=== PATIENT | female | born 1950 | race Caucasian/White ===

== ENCOUNTER → 2017-05-13 | Outpatient (CLI) | payer OTHER ==
[~2017-05-13] MED LIST: ATEN-173 PO; CLON0.5T3 PO; SODI1SOL OPB
--- NOTE | 2017-05-14 15:58 | DIAGNOSTIC IMAGING REPORT ---
LEFT BREAST LYMPHOSCINTIGRAPHY CLINICAL HISTORY: Left breast cancer. COMPARISON STUDY: No previous studies for comparison. PROCEDURE: The patient presents today for left breast lymphoscintigraphy. The procedure, risks and benefits were discussed with the patient and informed consent was obtained. Skin of the left breast was prepped. A total of 0.542 mCi of Lymphoseek was injected in 5 intradermal aliquots at 2:30 PM on May 13, 2017 in a perilesional distribution. The patient tolerated the procedure well and no immediate complications were evident. No imaging was requested at this time. IMPRESSION: Left breast lymphoscintigraphy, as described above. Electronically signed by: Jerel Jones M.D. 05/14/2017 3:56 PM Dictated Date/Time: 05/14/2017 3:52 PM
== END | disposition home or self-care (01) ==
LOC: C.NUCL 13:56
PROVIDERS: ATTEND Surgery
DX: C50.912 Malignant neoplasm of unspecified site of left female breast (principal)

== ENCOUNTER → 2017-09-09 | Outpatient (CLI) | payer OTHER ==
[~2017-09-09] MED LIST changes: -CLON0.5T3 PO; +DOXY100C76 PO; +KLN/5 PO; +MULTTAB58 PO; +TAMO20TA9 PO
[2017-09-09 14:11] VITALS: BP 118/78; PULSE 66; TEMP 37; O2SAT 97
--- NOTE | 2017-09-09 15:28 | Radiation Oncology Follow-Up ---
Radiation Oncology Follow-Up Date of Visit Sep 09, 2017. 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 She received 5130 cGy utilizing hypo-fractionation Last Edited By: Val Shannon on Sep 09, 2017 15:21 History of Present Illness is a 67-year-old female who has a family history of breast cancer. The patient's sister underwent a lumpectomy 35 years ago although she is not sure this was breast cancer recently she was found to have metastatic breast cancer 2 years ago and has recently from metastatic breast cancer. She also has a paternal aunt was with a history of breast and lung cancer and a maternal aunt with a history of breast cancer. With the passing of her sister recently the patient underwent a mammogram on 02/15/2017. In the left breast there were 2 areas of focal asymmetry measuring 8 mm wide. One was at the 3 o'clock position and the second was in the central left breast at mid-depth. The right breast was unremarkable. Additional imaging views were recommended. On 02/19/2017 patient underwent a unilateral left breast mammogram and targeted ultrasound. At the left 3 o'clock position a lobular-appearing nodule was noted corresponding to an intraparenchymal lymph node as seen on ultrasound. This was 6 cm in the nipple measuring 8 x 4 x 8 mm. Additional 3:00 lesion with associated architectural distortion was noted with ultrasound demonstrating a corresponding hypoechoic mass measuring 6 x 8 x 8 mm at the 3 o' clock position 4 cm from the nipple. There was also an 11:00 nodular density on mammogram with ultrasound demonstrating a corresponding simple cyst at the 11 o'clock position 5 cm to the nipple measuring 7 x 4 x 5 mm. Targeted ultrasound of the axilla demonstrated physiologic appearing lymph nodes. These were felt to be suspicious and a biopsy was recommended. On 04/02/2017 the patient underwent a core biopsy of the left breast at the 3 o' clock position 4 cm from the nipple. This revealed an invasive ductal carcinoma with focal mucin secretion, grade 2. There was also noted focal ductal carcinoma in situ nuclear grade 1-2 with solid pattern. Estrogen receptors were strongly positive. Progesterone receptors were weakly positive. HER-2/michelle oncoprotein expression was negative. Accession #: [id number]. The patient was subsequently seen by Dr. Rigoberto Rebolledo who suggested breast conserving therapy. The patient agreed and therefore on 05/17/2017 she underwent a left breast partial mastectomy and sentinel node biopsy. 2 sentinel nodes were identified and both were negative. The partial mastectomy specimen confirmed residual invasive carcinoma of no special type with a small component of mucinous carcinoma measuring 1.5 cm. This was a [place] grade 1 of 3. The margins of the invasive carcinoma were uninvolved. The distance from the closest margin was 6 mm representing the superior and inferior margin. There was no lymphovascular invasion identified. The final AJCC pathologic staging was therefore a pT1c pN0(sn-), ER positive, IN positive and HER-2/michelle negative. Case: [id number]. Patient was subsequently seen by Dr. Rigoberto Gonzalez to discuss the role of adjuvant therapy. He recommended Oncotype DX evaluation which was ordered and results pending. He also recommended genetic counseling and testing which presently is in process. At this point he felt it was likely the patient would proceed with adjuvant radiation followed by 5 years of adjuvant antiestrogen therapy unless the recent testing dictates otherwise. We were asked to see the patient to discuss the role of adjuvant radiation. She underwent a CT simulation was found to be a candidate for hypo- fractionation. Radiation was completed 08/03/2017 area she received 5130 cGy utilizing hypo-fractionation. Interim History She has been doing well over the past month. She has had steady improvement in the skin changes that occurred. She is using the natural care gel and Aquaphor. She is noted no masses or tenderness. No change of the axilla. She' s had no swelling of her arm. She has started tamoxifen and denies side effects. Genetic testing was discussed by Dr. Rebolledo and Dr. Gonzalez. She is on a waiting list for the genetic counseling. She had received a letter in the mail that they are behind with appointments. Follow-up mammography is currently not scheduled. Allergies Coded Allergies: Sulfamethoxazole w/Trimethoprim (Unverified Allergy, Unknown, SWELLING ON FACE AND LIPS, 08/01/16) Uncoded Allergies: SPICY FOOD (Allergy, Unknown, SWELLING, 08/01/16) Home Medications Scheduled Atenolol (Tenormin), 25 MG PO QAM Clonazepam (Klonopin), 0.25 MG PO HS Multiple Vitamin (Multivitamin), 1 TAB PO BID Sodium Chloride Hypertonic (Sodium Chloride), 1 DROP OPB HS Tamoxifen (Nolvadex), 20 MG PO DAILY Review of Systems Gastrointestinal: Symptoms: WNL Oral: Symptoms: No Problems Respiratory: Symptoms: WNL Urinary: Symptoms: WNL Skin: Symptoms: No Problems Breast: Right Upper Arm Measurement: 31.4 Right Mid Arm Measurement: 26.9 Right Wrist Measurement: 17.5 Left Upper Arm Measurement: 31.7 Left Mid Arm Measurement: 26.7 Left Wrist Measurement: 17.1 Arm Dominence: Right Physical Exam Vital Signs Date Time Temp Pulse Resp B/P (MAP) Pulse Ox O2 Delivery O2 Flow Rate FiO2 09/09/17 14:11 37.0 66 16 118/78 97 Fatigue: None General Appearance: no apparent distress Eyes: normal inspection, EOMI ENT: normal ENT inspection, hearing grossly normal Neck: supple, no adenopathy, thyroid normal Respiratory/Chest: lungs clear, no respiratory distress, no accessory muscle use Breast: Breast examination reveals well-healed incisions of the left breast. There are no masses or tenderness no axillary adenopathy. There is resolving hyperpigmentation. There is mild edema. There are no skin retractions or nipple changes. Using the [place] score cosmesis she has a good outcome. The right breast showed no masses or tenderness and no axillary adenopathy. Cardiovascular: regular rate, rhythm, no gallop, no murmur Extremities: no pedal edema Neurologic/Psychiatric: no motor/sensory deficits, alert, normal mood/affect Skin: warm/dry Lymphatic: no adenopathy Pain Management Patient Reports Pain: No Pain Management Plan She denied pain therefore requires no pain management. Laboratory Laboratory Results: not applicable Pathology Pathology Results: not applicable Imaging Imaging Studies: not applicable Assessment & Plan Plan: Mammography was scheduled. She'll have a digital diagnostic mammogram of the left breast in 2 months. She'll have bilateral mammography in 8 months. She'll continue regular follow-up with the breast surgeon and medical oncologist. She continues on tamoxifen. She will go forward with the genetic counseling and testing. She'll await the phone call from [facility] to complete the genetic counseling. Today we completed a cancer survivorship care plan. A copy of the document with corrections were given. She was given a survivorship booklet. We asked her to return to our office in 6 months. She may call if she has any questions or concerns in the interim. Her had some questions about billing. I offered to refer him to our billing office. He stated that he is planning to contact [facility] with some of his questions. I also offered for them to speak to the patient navigator. They may call if they wish to speak to me navigation. Total Time In Follow-Up I spent 25 minutes speaking to the patient performing examination. I spent 20 minutes reviewing information, preparing the survivorship document, and completing this note. Copy To Rigoberto Rebolledo M.D.; Rubi Irving PA-C; Rigoberto Gonzalez M.D. Problem Qualifiers (1) Breast cancer of upper-outer 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: Estrogen receptor status: positive Qualified Codes: C50.412 - Malignant neoplasm of upper-outer 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; Z17.0 - Estrogen receptor positive status [ER+]
== END | disposition home or self-care (01) ==
LOC: C.ONC 13:46
PROVIDERS: ATTEND Physician Assistant Medical
DX: Z08 Encounter for follow-up examination after completed treatment for malignant neoplasm (principal); Z92.3 Personal history of irradiation; Z85.3 Personal history of malignant neoplasm of breast

== ENCOUNTER 2022-12-03 15:01 | Inpatient (IN) ==
[2022-12-03 16:04] LABS: Basophils # (auto) 0.03 K/uL (0-0.2); Basophils % (auto) 0.5 %; Eosinophils # (auto) 0.24 K/uL (0-0.50); Eosinophils % (auto) 3.8 %; Hematocrit (blood only) 42.1 % (37.0-47.0); Hemoglobin 13.9 g/dl (12.0-16.0); Immature Granulocytes # (auto) 0.01 K/uL (0.01-0.20); Immature Granulocytes % (auto) 0.2 %; Lymphocytes # (auto) 1.99 K/uL (1.2-3.4); Lymphocytes % (auto) 31.8 %; Mean Corpuscular Hemoglobin 29.4 pg (25.0-34.0); Mean Corpuscular Volume 89.2 fL (80.0-100.0); Mean Platelet Volume 11.8 fL (9.4-12.4); Monocytes # (auto) 0.51 K/uL (0.11-0.59); Monocytes % (auto) 8.1 %; Neutrophils # (auto) 3.48 K/uL (1.40-6.50); Neutrophils % (auto) 55.6 %; Platelet Count 221 K/uL (130-400); RDW Coefficient of Variation 14.7 % (11.5-14.5); RDW Standard Deviation 48.5 fL (36.4-46.3); Red Blood Count 4.72 M/uL (4.20-5.40); White Blood Count 6.26 K/ul (4.8-10.8)
[2022-12-03 16:22] LABS: Albumin Globulin Ratio 1.3 (0.9-2); Albumin Level 4.2 gm/dl (3.4-5.0); BUN Creatinine Ratio 11.5 (10-20); Calcium 9.9 mg/dl (8.5-10.1); Creatinine Clr Calc Pharmacy 55.4 ml/min; Est GFR (Non-African American) 58.7 ml/min; Globulin 3.2 gm/dl (2.5-4.0); Potassium 3.7 mmol/L (3.5-5.1); Total Protein 7.4 gm/dl (6.0-8.3)
--- NOTE | 2022-12-03 16:22 | Emergency Department Note ---
Impression & Plan Biliary obstruction, Transaminitis, Gallbladder mass ED Provider Note NAME: LEAH WESLEY AGE: 72 SEX: F : 1950 ARRIVES VIA: Walk-In INFORMANT: Patient, ED PROVIDER(S): Aleksandr Welsh MD CHIEF COMPLAINT: Outpatient referral, abnormal ultrasound MEDICAL DECISION MAKING: Patient did present due to concern for an abnormal outpatient ultrasound. IV was established blood work was obtained. I did review the patient's outpatient ultrasound. Patient's blood work shows Normal white count H&H and platelet count. I did Speak with on-call gastroenterology elicits passionately stated that getting an MR or CT of the abdomen/pelvis is reasonable and may also benefit from an EUS. They do have Dr. Morris on for coverage tomorrow and over the weekend in case the patient does require an ERCP. Patient has a normal white count H&H and platelet count. The patient's bilirubin is 7 with an AST and ALT at 273 and 357. Lipase is normal. CT of the abdomen pelvis was ordered. I did speak with the on-call hospitalist service Ronel Masters PA-C and the patient was admitted by Dr. Wood. Patient was to be n.p.o. at midnight with a likely ERCP tomorrow with Dr. Joselyn Diop. Prior /Outside records reviewed: Outpatient ultrasound impression was reviewed which shows diffuse intrahepatic and extrahepatic biliary ductal dilatation contrast-enhanced MRI abdomen is recommended for further evaluation. Heterogeneous masslike lesion in the gallbladder may represent fundal adenomyomatosis this can be further evaluated at the time of the MRI. This was completed the morning of December 03, 2022 Differential diagnosis: Biliary obstruction, stone in duct, stricture, cholecystitis, cancer, dehydration among others were considered Diagnostics, as interpreted by me: ECG: None Cardiac monitoring: An order was placed for continuous cardiac monitoring. The monitor shows a rate of 78 with sinus rhythm. Patient was placed on pulse oximetry Medical decision rules: None Imaging studies: See below HPI: Patient presents due to concern for abnormal ultrasound. The patient reportedly has had increasing transaminitis and thus the patient did have an outpatient ultrasound completed earlier today. The patient has a remote history of breast CA status post LOC lumpectomy and tamoxifen treatment. The patient has followed up in surveillance and has not had any recurrence of breast cancer and is currently in remission. Due to the patient's increasing transaminitis the patient's ultrasound resulted and was referred here for further evaluation and treatment as there was a recommendation for contrast-enhanced MRI of the abdomen. Patient denies any abdominal pain nausea vomiting she denies any alcohol or tobacco use. No Tylenol use. The patient denies any fevers chills chest pains or shortness of breath. Patient denies any weight loss or night sweats. PAST MEDICAL HISTORY: See Below PAST SURGICAL HISTORY: See Below SOCIAL HISTORY: See Below HOME MEDICATIONS: See Below ALLERGIES: See Below VITALS: See Below PHYSICAL EXAMINATION: GENERAL: NAD, wearing a mask, non-toxic. Wearing glasses. EYE EXAM: Normal conjunctiva. No obvious collateral icterus, PERRL, no anisocoria and EOM's grossly intact w/o pain. NECK: Supple, no nuchal rigidity, no adenopathy, non-tender. No signs of meningismus. FROM of the neck with good chin to chest and neck extension. No stridor. LUNGS: Clear to auscultation. Normal chest wall mechanics. HEART: NSR, no MRG. ABDOMEN: Abdomen soft, non-tender, normo-active bowel sounds, no masses, no rebound or guarding. BACK: No CVA TTP. SKIN: No rashes and no bruising. UPPER EXTREMITIES: Upper extremities are grossly normal. LOWER EXTREMITIES: Grossly normal, no edema. NEURO EXAM: A&O x3, cranial nerves II-XII grossly intact, normal speech, moves all 4 extremities. 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 Equipment Operator Required: No Beliefs That Will Affect Care: None Current Living Situation: Spouse Other Information That Helps Us Care for You: No Feels Safe at Home: Yes Safety Concerns: Feels Safe At This Time Assistive Devices: Glasses Allergies Allergies Allergy/AdvReac Type Severity Reaction Status Date / Time latex Allergy Mild Rash Verified 12/03/22 16:07 sulfamethoxazole Allergy Unknown SWELLING Verified 12/03/22 16:07 ON FACE AND LIPS trimethoprim Allergy Unknown SWELLING Verified 12/03/22 16:07 ON FACE AND LIPS metformin AdvReac Unknown mood Verified 12/03/22 16:07 disorder per [facility] record SPICY FOOD Allergy Unknown SWELLING Uncoded 04/03/21 14:11 Home Meds Home Medications Medication Instructions Recorded Confirmed calcium carbonate 600 mg-vitamin 1 cap PO DAILY 04/08/22 12/03/22 D3 12.5 mcg (500 unit) capsule (Calcium 600 with Vitamin D3) atenolol 25 mg tablet 25 mg PO DAILY 12/03/22 12/03/22 clonazepam 0.5 mg tablet 0.5 mg PO HS PRN anxiety or sleep 12/03/22 12/03/22 sodium chloride 5 % eye drops 1 drp ophthalmic (eye) BID PRN 12/03/22 12/03/22 restless leg Results & Data (ED) Vital Signs Vital Signs - 24 hr 12/03/22 15:03 12/03/22 16:54 Temperature 36.5 C Temperature Source Temporal Artery Scan Pulse Rate 77 Pulse Rate [Right Finger] 76 Respiratory Rate 18 20 Respiratory Effort / Characteristics Non-Labored Non-Labored Respiratory Depth Normal Normal Blood Pressure 165/100 H Blood Pressure [Right Arm] 164/103 H Blood Pressure Mean 121 Blood Pressure Mean [Right Arm] 123 Pulse Oximetry 97 98 Oxygen Delivery Method Room Air Room Air Sepsis Recent Fever Within 48 Hours No Sepsis New/Unexplained Change in Mental Status No Sepsis Action Taken by Nursing No Action Required Home Medications Current Medication List: was personally reviewed by me Laboratory Data Attestation: I reviewed the patient's lab results. 12/03/22 15:50 12/03/22 15:50 Lab Results 12/03/22 12/03/22 12/03/22 Range/Units 15:50 15:50 15:50 WBC 6.26 (4.8-10.8) K/ul RBC 4.72 (4.20-5.40) M/uL Hgb 13.9 (12.0-16.0) g/dl Hct 42.1 (37.0-47.0) % MCV 89.2 (80.0-100.0) fL MCH 29.4 (25.0-34.0) pg MCHC 33.0 (32.0-36.0) g/dL RDW Std Deviation 48.5 H (36.4-46.3) fL RDW Coeff of Vicky 14.7 H (11.5-14.5) % Plt Count 221 (130-400) K/uL MPV 11.8 (9.4-12.4) fL Immature Gran % (Auto) 0.2 % Neut % (Auto) 55.6 % Lymph % (Auto) 31.8 % Talbot % (Auto) 8.1 % Eos % (Auto) 3.8 % Baso % (Auto) 0.5 % Neut # (Auto) 3.48 (1.40-6.50) K/uL Lymph # (Auto) 1.99 (1.2-3.4) K/uL [place] # (Auto) 0.51 (0.11-0.59) K/uL Eos # (Auto) 0.24 (0-0.50) K/uL Baso # (Auto) 0.03 (0-0.2) K/uL Immature Gran # (Auto) 0.01 (0.01-0.20) K/uL Sodium 141 (136-145) mmol/L Potassium 3.7 (3.5-5.1) mmol/L Chloride 102 (98-107) mmol/L Carbon Dioxide 28 (21-32) mmol/L Anion Gap 11 (3-11) BUN 11 (6-23) mg/dl Creatinine 0.96 (0.6-1.2) mg/dl Est Cr Clr Drug Dosing 55.4 ml/min Est GFR ( Amer) 68.0 ml/min Est GFR (Non-Af Amer) 58.7 ml/min BUN/Creatinine Ratio 11.5 (10-20) Glucose 133 H (70-99(Fasting)) mg/dl Calcium 9.9 (8.5-10.1) mg/dl Total Bilirubin 7.0 H (0.2-1.0) mg/dl AST 273 H (13-39) U/L ALT 357 H (7-52) U/L Alkaline Phosphatase 488 H (34-104) U/L Total Protein 7.4 (6.0-8.3) gm/dl Albumin 4.2 (3.4-5.0) gm/dl Globulin 3.2 (2.5-4.0) gm/dl Albumin/Globulin Ratio 1.3 (0.9-2) Lipase 34 Cancelled (11-82) U/L Urine Color Urine Appearance (Clear) Urine pH (4.5-7.5) Ur Specific Barton (1.000-1.030) Urine Protein (Negative) Urine Glucose (UA) (Negative) Urine Ketones (Negative) Urine Blood (Negative) Urine Nitrite (Negative) Urine Bilirubin (Negative) Urine Urobilinogen (Negative) Ur Leukocyte Esterase (Negative) Urine WBC (Auto) (0-5) /hpf Urine RBC (Auto) (0-4) /hpf U Hyaline Cast (Auto) (0-5) /lpf U Epithel Cells (Auto) (0-5) /lpf Urine Bacteria (Auto) (Negative) Urine Mucus (None Prsent) Urine Yeast SARS-CoV-2, RNA, NAAT (NEGATIVE) 12/03/22 12/03/22 Range/Units 16:57 17:00 WBC (4.8-10.8) K/ul RBC (4.20-5.40) M/uL Hgb (12.0-16.0) g/dl Hct (37.0-47.0) % MCV (80.0-100.0) fL MCH (25.0-34.0) pg MCHC (32.0-36.0) g/dL RDW Std Deviation (36.4-46.3) fL RDW Coeff of Vicky (11.5-14.5) % Plt Count (130-400) K/uL MPV (9.4-12.4) fL Immature Gran % (Auto) % Neut % (Auto) % Lymph % (Auto) % [place] % (Auto) % Eos % (Auto) % Baso % (Auto) % Neut # (Auto) (1.40-6.50) K/uL Lymph # (Auto) (1.2-3.4) K/uL [place] # (Auto) (0.11-0.59) K/uL Eos # (Auto) (0-0.50) K/uL Baso # (Auto) (0-0.2) K/uL Immature Gran # (Auto) (0.01-0.20) K/uL Sodium (136-145) mmol/L Potassium (3.5-5.1) mmol/L Chloride (98-107) mmol/L Carbon Dioxide (21-32) mmol/L Anion Gap (3-11) BUN (6-23) mg/dl Creatinine (0.6-1.2) mg/dl Est Cr Clr Drug Dosing ml/min Est GFR ( Amer) ml/min Est GFR (Non-Af Amer) ml/min BUN/Creatinine Ratio (10-20) Glucose (70-99(Fasting)) mg/dl Calcium (8.5-10.1) mg/dl Total Bilirubin (0.2-1.0) mg/dl AST (13-39) U/L ALT (7-52) U/L Alkaline Phosphatase (34-104) U/L Total Protein (6.0-8.3) gm/dl Albumin (3.4-5.0) gm/dl Globulin (2.5-4.0) gm/dl Albumin/Globulin Ratio (0.9-2) Lipase (11-82) U/L Urine Color Dark Yellow Urine Appearance Cloudy A (Clear) Urine pH 6.0 (4.5-7.5) Ur Specific Barton 1.019 (1.000-1.030) Urine Protein Trace H (Negative) Urine Glucose (UA) Negative (Negative) Urine Ketones Trace H (Negative) Urine Blood Negative (Negative) Urine Nitrite Positive A (Negative) Urine Bilirubin 3+ H (Negative) Urine Urobilinogen Negative (Negative) Ur Leukocyte Esterase 2+ H (Negative) Urine WBC (Auto) 10-30 H (0-5) /hpf Urine RBC (Auto) 0-4 (0-4) /hpf U Hyaline Cast (Auto) 1-5 (0-5) /lpf U Epithel Cells (Auto) >30 H (0-5) /lpf Urine Bacteria (Auto) 1+ H (Negative) Urine Mucus Present A (None Prsent) Urine Yeast Not Reportable SARS-CoV-2, RNA, NAAT NEGATIVE (NEGATIVE) Administered Medications Atenolol (Atenolol 25 Mg Tablet) 25 mg PO DAILY JOSEPH Stop: 01/03/23 08:59 Last Admin: 12/04/22 08:01 Dose: 25 mg Documented By: DENNY Calcium/Vitamin D (Calcium 600mg + Vit D 400 Iu Tab) 1 tab PO DAILY JOSEPH Stop: 01/03/23 08:59 Last Admin: 12/04/22 08:01 Dose: 1 tab Documented By: DENNY Clonazepam (Clonazepam 0.5 Mg Tab) 0.5 mg PO HS PRN PRN Reason: anxiety or sleep Stop: 01/02/23 19:15 Last Admin: 12/03/22 20:55 Dose: 0.125 mg Documented By: STORM Piperacillin Sod/Tazobactam (Sod 3.375 gm/ Dextrose) 115 mls @ 28.75 mls/hr IV Q8H JOSEPH; Protocol Stop: 12/14/22 00:59 Last Admin: 12/04/22 08:02 Dose: 28.8 mls/hr Documented By: Infusion: 12/04/22 04:36 Dose: 0 mls/hr Documented By: Admin: 12/04/22 00:33 Dose: 28.8 mls/hr Documented By: NITISH Sodium Chloride (Sodium Chloride 5% Op Soln 15 Ml Btl) 1 drops OP BID PRN PRN Reason: eye irritation Stop: 01/02/23 19:41 Last Admin: 12/03/22 21:08 Dose: 1 drops Documented By: STORM Discontinued Medications Sodium Chloride (Nss 1000ml) 500 mls @ 999 mls/hr IV .Q31M ONE Stop: 12/03/22 17:01 Last Infusion: 12/03/22 19:18 Dose: 0 mls/hr Documented By: Admin: 12/03/22 16:53 Dose: 999 mls/hr Documented By: FRANCES Piperacillin Sod/Tazobactam (Sod 3.375 gm/ Dextrose) 115 mls @ 230 mls/hr IV NOW ONE; Protocol Stop: 12/03/22 20:29 Last Infusion: 12/03/22 21:20 Dose: 0 mls/hr Documented By: Admin: 12/03/22 20:50 Dose: 230 mls/hr Documented By: KLM Ioversol (Optiray 350 100ml) 86 ml IV ONCE ONE Stop: 12/03/22 17:21 Last Admin: 12/03/22 17:20 Dose: 86 ml Documented By: CANDY Discharge Plan Visit Data Chief Complaint: Abnormal Labs/Diagnostic Testing Stated Complaint: MRI, OBSTUCTION, REF BY DOC ED Provider: Aleksandr Welsh Discharge Problem: Biliary obstruction, Transaminitis, Gallbladder mass Patient Disposition: Admitted As Inpatient Discharge Instructions Interventions: ED Discharge Assessment Last Done: 12/03/22 18:20
[2022-12-03] MEDS ORDERED: SODIUM CHLORIDE 0.9% 1000ML 500 ML IV ONE (16:31)
--- NOTE | 2022-12-03 17:12 | History & Physical Report ---
Date of Service December 03, 2022 Assessment & Plan (1) Biliary obstruction: (2) Transaminitis: Plan: This is a 72-year-old female with PMH of hypertension, breast cancer, hypothyroidism, prediabetes and other medical problems listed below who presents after findings of an abnormal liver ultrasound and worsening transaminitis. 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 There is possible involvement of the hepatic flexure. Hepatic invasion cannot be entirely excluded. Biliary ductal dilation is seen compatible with mass effect. No lisa metastases are seen GI planning for ERCP/EUS tomorrow with Dr. Morris. Per discussion, no need for MRCP Routine gen surg consult NPO at midnight (3) Invasive ductal carcinoma of breast: Plan: Follows with Dr. Gross for invasive ductal carcinoma of the breast and has been treated with left partial mastectomy and radiation therapy as well as 5 years of tamoxifen completed in August 2022 (4) HTN (hypertension): Plan: Continue atenolol (5) Restless legs syndrome (RLS): Plan: Clonazepam HS PRN DVT Ppx: SCDs for now given intervention Code status: FULL PCP: Rubi Irving PA-C Dispo: [facility] Patient seen in collaboration with Dr. Wood. Please see addendum. A total of 75 minutes were spent with greater than 50% of that time face to face with the patient, personally reviewing all current laboratories, imaging studies, past medication reconciliation, outpatient chart review, and discussion with specialists to collaborate care for the patient with attending and utilization of translation services. Please see attending documentation for corrections and/or additions. History of Present Illness Chief Complaint: Outpatient referral, abnormal ultrasound Primary Care Provider: Rubi Irving PA-C This is a 72-year-old female with PMH of hypertension, breast cancer, hypothyroidism, prediabetes and other medical problems listed below who presents after findings of an abnormal liver ultrasound and worsening transaminitis. Is following with Dr. Gross for history of invasive ductal carcinoma of the breast and has completed treatment with left partial mastectomy, radiation therapy as well as 5 years of tamoxifen completed in August 2022. He had noted increasing liver enzymes and ordered ultrasound of the liver, which revealed diffuse intra hepatic and extrahepatic biliary ductal dilation and heterogeneous masslike lesion in the gallbladder which may represent fundal adenomyomatosis. Was sent in to ED for further evaluation. No fever or chills. Poor appetite for 1 week with early satiety. Has been belching intermittently. Jaundiced skin. No abdominal pain. Having dark urine and feeling constipated but having small bowel movements. No dysuria or diarrhea. Allergies Allergy/AdvReac Type Severity Reaction Status Date / Time latex Allergy Mild Rash Verified 12/03/22 16:07 sulfamethoxazole Allergy Unknown SWELLING Verified 12/03/22 16:07 ON FACE AND LIPS trimethoprim Allergy Unknown SWELLING Verified 12/03/22 16:07 ON FACE AND LIPS metformin AdvReac Unknown mood Verified 12/03/22 16:07 disorder per [facility] record SPICY FOOD Allergy Unknown SWELLING Uncoded 04/03/21 14:11 Home Medications Medication Instructions Recorded Confirmed Type calcium carbonate 600 mg-vitamin 1 cap PO DAILY 04/08/22 12/03/22 History D3 12.5 mcg (500 unit) capsule (Calcium 600 with Vitamin D3) atenolol 25 mg tablet 25 mg PO DAILY 12/03/22 12/03/22 History clonazepam 0.5 mg tablet 0.5 mg PO HS PRN anxiety or sleep 12/03/22 12/03/22 History sodium chloride 5 % eye drops 1 drp ophthalmic (eye) BID PRN 12/03/22 12/03/22 History restless leg Past Med/Surg History Medical History 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) HTN (hypertension) Restless legs syndrome (RLS) Surgical History H/O partial mastectomy Family History Other Breast cancer Hypertension Social History Smoking Status: Never smoker Hx Alcohol Use: Yes Alcohol type: beer and wine Alcohol Intake Frequency: 2-4 x/Month Hx Substance Use: No Preferred Language: Moroccan Communication Ability: Effective 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 Physical Exam Physical Exam: Please see Dr. Wood's addendum for physical exam. Results & Data Results & Data ([facility]) Vital Signs (Past 12 Hours) Vital Signs Temp Pulse Pulse Resp BP BP Pulse Ox 12/03/22 16:54 76 20 164/103 H 98 12/03/22 15:03 36.5 C 77 18 165/100 H 97 O2 Del Method 12/03/22 16:54 Room Air 12/03/22 15:03 Room Air Laboratory Results Short CBC 12/03/22 Range/Units 15:50 WBC 6.26 (4.8-10.8) K/ul Hgb 13.9 (12.0-16.0) g/dl Hct 42.1 (37.0-47.0) % Plt Count 221 (130-400) K/uL BMP 12/03/22 15:50 Sodium 141 Potassium 3.7 Chloride 102 Carbon Dioxide 28 BUN 11 Creatinine 0.96 Glucose 133 H Calcium 9.9 Liver Function 12/03/22 Range/Units 15:50 Total Bilirubin 7.0 H (0.2-1.0) mg/dl AST 273 H (13-39) U/L ALT 357 H (7-52) U/L Alkaline Phosphatase 488 H (34-104) U/L Albumin 4.2 (3.4-5.0) gm/dl Supervising Physician Co-Signing Physician Notes Pt seen and examined by me, care coordinated w/ Baltazar Masters PA-C, pls refer to her note above for further detail. Pt is a 72 yo F with hypertension, hx of breast cancer, hypothyroidism, prediabetes who presents after findings of an abnormal liver ultrasound and worsening transaminitis. She is following with Dr. Gross for history of invasive ductal carcinoma of the breast and has completed treatment with left partial mastectomy, radiation therapy as well as 5 years of tamoxifen completed in August 2022. He had noted increasing liver enzymes and ordered ultrasound of the liver, which revealed diffuse intra hepatic and extrahepatic biliary ductal dilation and heterogeneous masslike lesion in the gallbladder. She was sent in to the hospital for further evaluation. Currently patient is lying in bed, in no acute distress, she is awake alert oriented and answering questions appropriately. Heart sounds regular. Lung sounds clear to auscultation bilaterally without any wheezing rhonchi crackles noted. Abdomen is soft, obese nontender nondistended, no tenderness to palpation at the right upper quadrant noted either. No lower extremity edema. She is moving extremities spontaneously and without difficulty. Skin is warm and dry, well-perfused. Slightly jaundiced. CT abdomen pelvis obtained in the ED. GI notified and plans for ERCP tomorrow. IV Zosyn started. We will continue to closely monitor and likely discuss with surgery as well. MD Nina
[2022-12-03] MEDS ORDERED: OPTIRAY 350 100ml IV ONE (17:20)
[2022-12-03 17:38] LABS: Appearance Urine Cloudy (Clear); Blood Urine Negative (Negative); Color Urine Dark Yellow; Epithelial Cell Urine Auto >30 /lpf (0-5); Glucose Urine UA Negative (Negative); Ketones Urine Trace (Negative); Leukocyte Esterase Urine 2+ (Negative); Nitrite Urine Positive (Negative); Protein Urine Trace (Negative); RBC Urine Automated 0-4 /hpf (0-4); Specific Gravity Urine 1.019 (1.000-1.030); Urobilinogen Urine Negative (Negative)
--- NOTE | 2022-12-03 17:49 | CT Scan Report ---
CT abd pelvis IV con only CLINICAL HISTORY: painless jaundice TECHNIQUE: Helical axial images of the abdomen and pelvis were obtained and displayed. Automated dose lowering techniques and/or adjustment according to patient size were utilized for this exam. This e xam was performed with intravenous contrast. CT DOSE: 593.15 mGy.cm COMPARISON: Comparison is made to radiation therapy CT scan 06/18/2017 FINDINGS: Lower chest: No acute abnormality. Liver: Unremarkable. No focal lesions are seen. Gallbladder and biliary tree: There is a large heterogeneous, partially calcified soft tissue mass in the gallbladder with enlargement of the gallbladder lumen, measuring approximately 6 x 6 x 10 cm. Th ere is dilation of the intra and extrahepatic bile ducts likely due to mass effect. Pancreas: Unremarkable, no focal lesions. Spleen: Unremarkable. Adrenals: Unremarkable. Kidneys and ureters: Left parapelvic cysts noted. Subcentimeter hypodensities are too small to charac terize but likely represent cysts as well. Bladder: Limited evaluation due to underdistention. Reproductive organs: A calcified fibroid is noted. Bowel: Diverticulosis is seen without evidence of diverticulitis. A loop of hepatic flexure is seen t o be adherent to the gallbladder mass with prominent fat stranding. The appendix is normal. Lymph nodes Retroperitoneal: Unremarkable. Pelvic: Unremarkable. Mesenteric: Unremarkable. Peritoneum: There is prominent fat stranding about the gallbladder mass which likely reflects increas ed vascularity. There is loss of the fat plane between the gallbladder mass in the hepatic flexure. Vessels: Unremarkable. Abdominal wall: Unremarkable. Bones: Degenerative changes in the visualized spine. IMPRESSION: 1. 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 There is possible involvement of the hepatic flexure. Hepatic invasion cannot be entirely excluded. Biliary du ctal dilation is seen compatible with mass effect. No lisa metastases are seen. 2. Diverticulosis without diverticulitis. ACT 112: Positive. There are findings on this exam that require communication between the performing entity and the patient following Patient Test Result Information Act ([place] Act 112) guidelines. Electronically signed by: Benji Fernandez M.D. 12/03/2022 5:47 PM
[2022-12-03 18:06] LABS: Bilirubin Urine 3+ (Negative)
[2022-12-03] MEDS ORDERED: hydrALAZINE HCL 20 MG/ML VIAL IV PRN (18:10)
[2022-12-03 19:06] LABS: Bacteria Urine Automated 1+ (Negative); Mucus Urine Present (None Prsent)
[2022-12-03] MEDS ORDERED: clonazePAM 0.5 MG TAB PO PRN (19:16)
[2022-12-03] MEDS ORDERED: POLYETHYLENE (MIRALAX) 17 GM PACK PO PRN (19:16)
[2022-12-03] MEDS ORDERED: ONDANSETRON INJ 2 MG/ML 2 ML VIAL IV PRN (19:16)
[2022-12-03] MEDS ORDERED: SODIUM CHLORIDE 5% OP SOLN 15 ML BTL OP PRN (19:42)
[2022-12-03] MEDS ORDERED: PIPERACILLIN/TAZOBACTAM 3.375 GM (over 30 mins) IV ONE (20:00)
--- NOTE | 2022-12-03 21:14 | Surgery Consultation ---
I have discussed this case with the surgical PA's. This patient requires relief of biliary obstruction with biopsy for diagnosis and referral to a hepatobiliary surgeon for further treatment of this biliary mass. She does not have an acute abdomen or signs/symptoms of GI obstruction to warrant an emergent laparotomy which would in fact be a dis-service to her with a potential large biliary malignancy involving the liver. I have discussed this case with the PA's and agree with the assessment and plan. Date of Consultation December 03, 2022 Assessment & Plan (1) Transaminitis: (2) Biliary obstruction: (3) Gallbladder mass: The patient has been admitted on the hospitalist service. We recommend proceeding as follows: Due to the findings on imaging it appears that a gastroenterology consultation is warranted. This has been ordered by the medical service. It appears that the the patient is tentatively scheduled for an ERCP tomorrow for further evaluation It is unclear to what extent the patient's gallbladder mass involves the liver or colon. Will await gastroenterology input particular to see if they feel any additional abdominal imaging is warranted. If the patient requires surgical intervention it is unlikely will be performed at [facility] as this may involve cholecystectomy, partial colon resection, and/or partial liver resection History of Present Illness Reason for Consultation: Gallbladder mass Attending Physician: John Wood MD History of Present Illness This is a 72-year-old female who was admitted to [facility] through the emergency department. She was referred to the emergency department by her outpatient physicians. Patient notes that for several weeks she has been having symptoms of decreased appetite. She says that she is also lost approximately 15 pounds over the past several weeks. She notes that she has a metallic taste in her mouth. Because of the symptoms the patient did discuss this with her oncologist with whom she follows for history of breast cancer. The patient did undergo LFTs which were noted to be elevated (these were done at an outpatient [facility] facility so I do not have the results of this) the patient also underwent a gallbladder ultrasound as an outpatient which showed diffuse intrahepatic and extrahepatic biliary ductal dilatation. There is a masslike lesion noted in the gallbladder on this study. Patient was therefore referred to the emergency department for further evaluation. I question the patient had additional symptoms and she said that she does have some slight pruritus. She denies any nausea or vomiting. She says she has been having issues with constipation. She denies any fevers, shakes, or chills. She does note that she has had a prior abdominal surgery in the form of a laparoscopy to evaluate for uterine fibroids. Since arrival to [facility] the patient has had labs and imaging which I independent reviewed. Patient did have a CT scan of the abdomen pelvis. 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 There is also possible involvement of the hepatic flexure noted. Hepatic invasion cannot be excluded on the study. Biliary ductal dilatation was noted on this study. No lisa metastasis was noted. Labs include a CBC were white blood cell count, hemoglobin, hematocrit, platelet count were all normal. Chemistry profile showed sodium, potassium, BUN, creatinine were normal. Patient's total bilirubin was noted to be 7.0. AST and ALT were 273 and 357 respectively. Alkaline phosphatase was 488. Urinalysis was positive for nitrites and had 2+ leukocyte Estrace. There was 10-30 white blood cells per high-power field. 1+ bacteria was noted on the study. A COVID test was negative. At the time of my interview she was resting comfortably in bed and she was in no distress Allergies Allergy/AdvReac Type Severity Reaction Status Date / Time latex Allergy Mild Rash Verified 12/03/22 16:07 sulfamethoxazole Allergy Unknown SWELLING Verified 12/03/22 16:07 ON FACE AND LIPS trimethoprim Allergy Unknown SWELLING Verified 12/03/22 16:07 ON FACE AND LIPS metformin AdvReac Unknown mood Verified 12/03/22 16:07 disorder per [facility] record SPICY FOOD Allergy Unknown SWELLING Uncoded 04/03/21 14:11 Home Medications Medication Instructions Recorded Confirmed Type calcium carbonate 600 mg-vitamin 1 cap PO DAILY 04/08/22 12/03/22 History D3 12.5 mcg (500 unit) capsule (Calcium 600 with Vitamin D3) atenolol 25 mg tablet 25 mg PO DAILY 12/03/22 12/03/22 History clonazepam 0.5 mg tablet 0.5 mg PO HS PRN anxiety or sleep 12/03/22 12/03/22 History sodium chloride 5 % eye drops 1 drp ophthalmic (eye) BID PRN 12/03/22 12/03/22 History restless leg Patient History Medical History 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) HTN (hypertension) Restless legs syndrome (RLS) Surgical History H/O partial mastectomy Family History Other Breast cancer Hypertension Social History Smoking Status: Never smoker Hx Alcohol Use: Yes Alcohol type: wine Alcohol Intake Frequency: 2-4 x/Month Hx Substance Use: No Feels Safe at Home: Yes Review of Systems Constitutional: + anorexia; no fever and no chills Eyes: no eye pain Ear, Nose, Mouth, Throat: no ear pain Respiratory: no cough and no dyspnea Cardiovascular: no chest pain Gastrointestinal: + constipation; no abdominal pain, no nausea and no vomiting Genitourinary: no dysuria Musculoskeletal: no back pain Integumentary: + pruritus Neurologic: no localized weakness Physical Exam Constitutional: WD/WN, vitals as above Eyes: Slight scleral jaundice is noted ENMT: Ears: no hearing impairment and no external ear abnormality Slight sublingual jaundice noted Neck: trachea midline Respiratory: normal respiratory effort; no respiratory distress and no labored breathing Cardiovascular: Rate/Rhythm: regular rate and regular rhythm Gastrointestinal (Abdomen): Abdomen is soft and nondistended. It is nonrigid. There is no rebound tenderness or guarding. There is no pain with palpation in any region of her abdomen Musculoskeletal: No calf tenderness Skin: no rashes Neurologic: moves all extremities Psychiatric: A+Ox3, euthymic affect Results & Data ([facility]) Vital Signs (Past 12 Hours) Vital Signs Temp Pulse Pulse Resp BP BP Pulse Ox 12/03/22 16:54 76 20 164/103 H 98 12/03/22 15:03 36.5 C 77 18 165/100 H 97 O2 Del Method 12/03/22 16:54 Room Air 12/03/22 15:03 Room Air PG Care Time/CCT Total # of Minutes Spent Total Time Spent with Patient: Total time spent is greater than 50% in coordination of care (as documented) at patient's floor/unit and/or counseling patient: Coding Level of Care Code 19232 INT INP/OBS CARE MIN Diagnoses Transaminitis R74.01 Biliary obstruction K83.1 Gallbladder mass K82.8
[2022-12-04] MEDS: PIPERACILLIN/TAZOBACTAM 3.375 GM in DEXTROSE 5% 100 ML IV SCH ×3 (00:33→17:04)
[2022-12-04 06:55] LABS: Hematocrit (blood only) 38.1 % (37.0-47.0); Hemoglobin 12.7 g/dl (12.0-16.0); Mean Corpuscular Hgb Conc 33.3 g/dL (32.0-36.0); Mean Corpuscular Volume 89.9 fL (80.0-100.0); Mean Platelet Volume 11.3 fL (9.4-12.4); Platelet Count 221 K/uL (130-400); RDW Coefficient of Variation 15.1 % (11.5-14.5); RDW Standard Deviation 49.9 fL (36.4-46.3); Red Blood Count 4.24 M/uL (4.20-5.40); White Blood Count 4.33 K/ul (4.8-10.8)
[2022-12-04 07:39] LABS: Albumin Globulin Ratio 1.3 (0.9-2); Albumin Level 3.6 gm/dl (3.4-5.0); BUN Creatinine Ratio 10.5 (10-20); Bilirubin,Total 6.7 mg/dl (0.2-1.0); Calcium 9.2 mg/dl (8.5-10.1); Creatinine Clr Calc Pharmacy 61.6 ml/min; Est GFR (African American) 77.7 ml/min; Globulin 2.7 gm/dl (2.5-4.0); Potassium 3.4 mmol/L (3.5-5.1); Total Protein 6.3 gm/dl (6.0-8.3)
--- NOTE | 2022-12-04 08:08 | Hospitalist Progress Note ---
Date of Service December 04, 2022 Assessment & Plan (1) Biliary obstruction: (2) Transaminitis: Plan: This is a 72 yo female with hypertension, hx of breast cancer s/p treatment, hypothyroidism, prediabetes who presents after findings of an abnormal liver ultrasound and worsening transaminitis. 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 There is possible involvement of the hepatic flexure. Hepatic invasion cannot be entirely excluded. Biliary ductal dilation is seen compatible with mass effect. No lisa metastases are seen GI consulted - Dr. Morris - s/p upper GI endoscopy Findings: The examined esophagus was normal. The entire examined stomach was normal. An acquired extrinsic severe stenosis was found in the duodenal bulb and was non-traversed. A TTS dilator was passed through the scope. Dilation with a 12-13.5-15 mm pyloric balloon dilator was performed. Impression: - Normal esophagus. - Normal stomach. 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 Upper endoscope could not traverse despite balloon dilation. Recommendation: - Perform an upper endoscopic ultrasound (UEUS) today. Pt also s/p FNA biopsy - results pending Cont. IV chad General surgery also consulted Further GI procedure recommended to be done at the [facility], and subsequent IR biliary drainage to be also done at [facility]. Patient will be transferred to their care for further treatment. (3) Invasive ductal carcinoma of breast: Plan: Follows with Dr. Gross for invasive ductal carcinoma of the breast and has been treated with left partial mastectomy and radiation therapy as well as 5 years of tamoxifen completed in August 2022 (4) HTN (hypertension): Plan: Continue atenolol (5) Restless legs syndrome (RLS): Plan: Clonazepam HS PRN DVT Ppx: SCDs for now given intervention Code status: FULL PCP: Rubi Irving PA-C Admission and Anticipated Discharge Date Admission Date: December 03, 2022 Subjective Patient seen in follow-up of gallbladder mass, elevated LFTs Currently sitting up in bed, in no acute distress. Patient's present at the bedside. Patient currently denies any fever chills chest pain or shortness of breath. Also denies any abdominal pain. She underwent procedure with gastroenterology, FNA biopsy was also obtained, it is recommended that patient is transferred to [facility] for further procedures. This was discussed in detail with the patient. Review of Systems Review of Systems: All systems reviewed & are unremarkable except as noted in Subjective Physical Exam Constitutional: WD/WN, vitals as above Eyes: PERRL, conjunctivae normal, anicteric sclerae ENMT: external ear and nose normal, oropharynx normal Neck: trachea midline, no thyromegaly Respiratory: normal respiratory effort, lungs clear to auscultation Cardiovascular: RRR, no murmur, no edema Chest (Breasts): Chest: normal inspection of chest Gastrointestinal (Abdomen): normal bowel sounds, soft, nontender, no hepatosplenomegaly Musculoskeletal: no cyanosis or clubbing, extremities motor strength 5/5 Skin: no rashes, warm and dry (+ mild jaundice) Neurologic: PERRL, EOMI, accommodation nl, no face palsy, no dysarthria Psychiatric: A+Ox3, euthymic affect Results & Data Results & Data ([facility]) Vital Signs (Past 12 Hours) Vital Signs Temp Pulse Pulse Resp BP Pulse Ox O2 Del Method 12/04/22 07:43 37.0 C 71 18 149/87 H 99 Room Air 12/04/22 02:29 36.7 C 77 18 151/86 H 99 Room Air 12/03/22 22:34 74 12/03/22 22:22 36.6 C 72 18 160/90 H 99 Room Air Laboratory Results 12/04/22 12/04/22 12/03/22 Range/Units 06:22 06:22 17:00 WBC 4.33 L (4.8-10.8) K/ul RBC 4.24 (4.20-5.40) M/uL Hgb 12.7 (12.0-16.0) g/dl Hct 38.1 (37.0-47.0) % MCV 89.9 (80.0-100.0) fL MCH 30.0 (25.0-34.0) pg MCHC 33.3 (32.0-36.0) g/dL RDW Std Deviation 49.9 H (36.4-46.3) fL RDW Coeff of Vicky 15.1 H (11.5-14.5) % Plt Count 221 (130-400) K/uL MPV 11.3 (9.4-12.4) fL Immature Gran % (Auto) % Neut % (Auto) % Lymph % (Auto) % [place] % (Auto) % Eos % (Auto) % Baso % (Auto) % Neut # (Auto) (1.40-6.50) K/uL Lymph # (Auto) (1.2-3.4) K/uL [place] # (Auto) (0.11-0.59) K/uL Eos # (Auto) (0-0.50) K/uL Baso # (Auto) (0-0.2) K/uL Immature Gran # (Auto) (0.01-0.20) K/uL Sodium 140 (136-145) mmol/L Potassium 3.4 L (3.5-5.1) mmol/L Chloride 105 (98-107) mmol/L Carbon Dioxide 28 (21-32) mmol/L Anion Gap 7 (3-11) BUN 9 (6-23) mg/dl Creatinine 0.86 (0.6-1.2) mg/dl Est Cr Clr Drug Dosing 61.6 ml/min Est GFR ( Amer) 77.7 ml/min Est GFR (Non-Af Amer) 67.0 ml/min BUN/Creatinine Ratio 10.5 (10-20) Glucose 118 H (70-99(Fasting)) mg/dl Calcium 9.2 (8.5-10.1) mg/dl Total Bilirubin 6.7 H (0.2-1.0) mg/dl AST 251 H (13-39) U/L ALT 317 H (7-52) U/L Alkaline Phosphatase 394 H (34-104) U/L Total Protein 6.3 (6.0-8.3) gm/dl Albumin 3.6 (3.4-5.0) gm/dl Globulin 2.7 (2.5-4.0) gm/dl Albumin/Globulin Ratio 1.3 (0.9-2) Lipase (11-82) U/L Urine Color Urine Appearance (Clear) Urine pH (4.5-7.5) Ur Specific [place] (1.000-1.030) Urine Protein (Negative) Urine Glucose (UA) (Negative) Urine Ketones (Negative) Urine Blood (Negative) Urine Nitrite (Negative) Urine Bilirubin (Negative) Urine Urobilinogen (Negative) Ur Leukocyte Esterase (Negative) Urine WBC (Auto) (0-5) /hpf Urine RBC (Auto) (0-4) /hpf U Hyaline Cast (Auto) (0-5) /lpf U Epithel Cells (Auto) (0-5) /lpf Urine Bacteria (Auto) (Negative) Urine Mucus (None Prsent) Urine Yeast SARS-CoV-2, RNA, NAAT NEGATIVE (NEGATIVE) 12/03/22 12/03/22 12/03/22 Range/Units 16:57 15:50 15:50 WBC (4.8-10.8) K/ul RBC (4.20-5.40) M/uL Hgb (12.0-16.0) g/dl Hct (37.0-47.0) % MCV (80.0-100.0) fL MCH (25.0-34.0) pg MCHC (32.0-36.0) g/dL RDW Std Deviation (36.4-46.3) fL RDW Coeff of Vicky (11.5-14.5) % Plt Count (130-400) K/uL MPV (9.4-12.4) fL Immature Gran % (Auto) % Neut % (Auto) % Lymph % (Auto) % [place] % (Auto) % Eos % (Auto) % Baso % (Auto) % Neut # (Auto) (1.40-6.50) K/uL Lymph # (Auto) (1.2-3.4) K/uL [place] # (Auto) (0.11-0.59) K/uL Eos # (Auto) (0-0.50) K/uL Baso # (Auto) (0-0.2) K/uL Immature Gran # (Auto) (0.01-0.20) K/uL Sodium 141 (136-145) mmol/L Potassium 3.7 (3.5-5.1) mmol/L Chloride 102 (98-107) mmol/L Carbon Dioxide 28 (21-32) mmol/L Anion Gap 11 (3-11) BUN 11 (6-23) mg/dl Creatinine 0.96 (0.6-1.2) mg/dl Est Cr Clr Drug Dosing 55.4 ml/min Est GFR ( Amer) 68.0 ml/min Est GFR (Non-Af Amer) 58.7 ml/min BUN/Creatinine Ratio 11.5 (10-20) Glucose 133 H (70-99(Fasting)) mg/dl Calcium 9.9 (8.5-10.1) mg/dl Total Bilirubin 7.0 H (0.2-1.0) mg/dl AST 273 H (13-39) U/L ALT 357 H (7-52) U/L Alkaline Phosphatase 488 H (34-104) U/L Total Protein 7.4 (6.0-8.3) gm/dl Albumin 4.2 (3.4-5.0) gm/dl Globulin 3.2 (2.5-4.0) gm/dl Albumin/Globulin Ratio 1.3 (0.9-2) Lipase Cancelled 34 (11-82) U/L Urine Color Dark Yellow Urine Appearance Cloudy A (Clear) Urine pH 6.0 (4.5-7.5) Ur Specific [place] 1.019 (1.000-1.030) Urine Protein Trace H (Negative) Urine Glucose (UA) Negative (Negative) Urine Ketones Trace H (Negative) Urine Blood Negative (Negative) Urine Nitrite Positive A (Negative) Urine Bilirubin 3+ H (Negative) Urine Urobilinogen Negative (Negative) Ur Leukocyte Esterase 2+ H (Negative) Urine WBC (Auto) 10-30 H (0-5) /hpf Urine RBC (Auto) 0-4 (0-4) /hpf U Hyaline Cast (Auto) 1-5 (0-5) /lpf U Epithel Cells (Auto) >30 H (0-5) /lpf Urine Bacteria (Auto) 1+ H (Negative) Urine Mucus Present A (None Prsent) Urine Yeast Not Reportable SARS-CoV-2, RNA, NAAT (NEGATIVE) 12/03/22 Range/Units 15:50 WBC 6.26 (4.8-10.8) K/ul RBC 4.72 (4.20-5.40) M/uL Hgb 13.9 (12.0-16.0) g/dl Hct 42.1 (37.0-47.0) % MCV 89.2 (80.0-100.0) fL MCH 29.4 (25.0-34.0) pg MCHC 33.0 (32.0-36.0) g/dL RDW Std Deviation 48.5 H (36.4-46.3) fL RDW Coeff of Vicky 14.7 H (11.5-14.5) % Plt Count 221 (130-400) K/uL MPV 11.8 (9.4-12.4) fL Immature Gran % (Auto) 0.2 % Neut % (Auto) 55.6 % Lymph % (Auto) 31.8 % [place] % (Auto) 8.1 % Eos % (Auto) 3.8 % Baso % (Auto) 0.5 % Neut # (Auto) 3.48 (1.40-6.50) K/uL Lymph # (Auto) 1.99 (1.2-3.4) K/uL [place] # (Auto) 0.51 (0.11-0.59) K/uL Eos # (Auto) 0.24 (0-0.50) K/uL Baso # (Auto) 0.03 (0-0.2) K/uL Immature Gran # (Auto) 0.01 (0.01-0.20) K/uL Sodium (136-145) mmol/L Potassium (3.5-5.1) mmol/L Chloride (98-107) mmol/L Carbon Dioxide (21-32) mmol/L Anion Gap (3-11) BUN (6-23) mg/dl Creatinine (0.6-1.2) mg/dl Est Cr Clr Drug Dosing ml/min Est GFR ( Amer) ml/min Est GFR (Non-Af Amer) ml/min BUN/Creatinine Ratio (10-20) Glucose (70-99(Fasting)) mg/dl Calcium (8.5-10.1) mg/dl Total Bilirubin (0.2-1.0) mg/dl AST (13-39) U/L ALT (7-52) U/L Alkaline Phosphatase (34-104) U/L Total Protein (6.0-8.3) gm/dl Albumin (3.4-5.0) gm/dl Globulin (2.5-4.0) gm/dl Albumin/Globulin Ratio (0.9-2) Lipase (11-82) U/L Urine Color Urine Appearance (Clear) Urine pH (4.5-7.5) Ur Specific [place] (1.000-1.030) Urine Protein (Negative) Urine Glucose (UA) (Negative) Urine Ketones (Negative) Urine Blood (Negative) Urine Nitrite (Negative) Urine Bilirubin (Negative) Urine Urobilinogen (Negative) Ur Leukocyte Esterase (Negative) Urine WBC (Auto) (0-5) /hpf Urine RBC (Auto) (0-4) /hpf U Hyaline Cast (Auto) (0-5) /lpf U Epithel Cells (Auto) (0-5) /lpf Urine Bacteria (Auto) (Negative) Urine Mucus (None Prsent) Urine Yeast SARS-CoV-2, RNA, NAAT (NEGATIVE) Medications Administered Current Inpatient Medications Atenolol (Atenolol 25 Mg Tablet) 25 mg PO DAILY [facility] Stop: 01/03/23 08:59 Last Admin: 12/04/22 08:01 Dose: 25 mg Calcium/Vitamin D (Calcium 600mg + Vit D 400 Iu Tab) 1 tab PO DAILY JOSEPH Stop: 01/03/23 08:59 Last Admin: 12/04/22 08:01 Dose: 1 tab Clonazepam (Clonazepam 0.5 Mg Tab) 0.5 mg PO HS PRN PRN Reason: anxiety or sleep Stop: 01/02/23 19:15 Last Admin: 12/03/22 20:55 Dose: 0.125 mg Hydralazine HCl (Hydralazine Hcl 20 Mg/Ml Vial) 5 mg IV Q6H PRN PRN Reason: SBP >170 or DBP >105 Stop: 01/02/23 18:09 Piperacillin Sod/Tazobactam (Sod 3.375 gm/ Dextrose) 115 mls @ 28.75 mls/hr IV Q8H [facility]; Protocol Stop: 12/14/22 00:59 Last Admin: 12/04/22 08:02 Dose: 28.8 mls/hr Ondansetron HCl (Ondansetron Inj 2 Mg/Ml 2 Ml Vial) 4 mg IV Q6H PRN PRN Reason: Nausea Stop: 01/02/23 19:15 Polyethylene Glycol (Polyethylene (Miralax) 17 Gm Pack) 17 gm PO DAILY PRN PRN Reason: Constipation Stop: 01/02/23 19:15 Sodium Chloride (Sodium Chloride 5% Op Soln 15 Ml Btl) 1 drops OP BID PRN PRN Reason: eye irritation Stop: 01/02/23 19:41 Last Admin: 12/03/22 21:08 Dose: 1 drops
[2022-12-04] MEDS ORDERED: CALCIUM 600MG + VIT D 400 IU TAB PO SCH (09:00)
[2022-12-04] MEDS ORDERED: ATENOLOL 25 MG TABLET PO SCH (09:00)
[2022-12-04] MEDS: POTASSIUM CHLORIDE / WTR 10 MEQ/100 ML PLCT IV SCH ×3 (09:09→13:37)
--- NOTE | 2022-12-04 09:39 | Gastrointestinal Consultation ---
Date of Consultation December 04, 2022 Assessment & Plan (1) Gallbladder mass: 72 year old female presenting with elevated transaminases and abnormal imaging concering for a gallbladder mass w/ biliary dilation - NPO - ERCP +/- EUS today - Appreciate general surgery evaluation pending results of todays test - Defer management of UTI to primary service We appreciate assistance in the management of any serological abnormality and corrections to include: hemoglobin >7, INR <2, platelets >50,000, potassium l evels >3.5 but <5.3, and sodium levels within 5 points of the reference range prior to endoscopic evaluation. Thank you for allowing us to participate in the care of this patient. Please call with any acute changes, questions or concerns. Please see addendum below with additional recommendation from my supervising physician. Supervising Physician Co-Signing Physician Notes Attg add: I reviewed chart and labs. Plan for biliary intervention today. History of Present Illness Reason for Consultation: abnormal imaging Requesting Physician: Nina Attending Physician: John Wood MD History of Present Illness 72 year old female with history of hypertension, breast cancer, hypothyroidism, prediabetes admitted with abnormal labs and abnormal imaging - GI asked to arrange endoscopic evaluation. Pt was seen and evaluated, chart reviewed. Spouse at bedside. Pt notes that for about 1 month ago she has had no appetite, metallic taste in her mouth, new acid reflux and about a 15-20 lb weight loss. She denies abd pain, nausea, vomiting. Saw her PCP, transaminases were in the 100s. Repeated a few days later by her oncologist with transaminases in 300s and planned for ABD US. This showed ?gallbladder mass and biliary dilation. In the ED, LFTs persisently elevated now w/ elevated Tbili at 7. CT showing soft tissue mass of GB and biliary dilation. 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 There is possible involvement of the hepatic flexure. Hepatic invasion cannot be entirely excluded. Biliary ductal dilation is seen compatible with mass effect. No lisa metastases are seen. Diverticulosis without diverticulitis. Allergies Allergy/AdvReac Type Severity Reaction Status Date / Time latex Allergy Mild Rash Verified 12/03/22 16:07 sulfamethoxazole Allergy Unknown SWELLING Verified 12/03/22 16:07 ON FACE AND LIPS trimethoprim Allergy Unknown SWELLING Verified 12/03/22 16:07 ON FACE AND LIPS metformin AdvReac Unknown mood Verified 12/03/22 16:07 disorder per [facility] record SPICY FOOD Allergy Unknown SWELLING Uncoded 04/03/21 14:11 Home Medications Medication Instructions Recorded Confirmed Type calcium carbonate 600 mg-vitamin 1 cap PO DAILY 04/08/22 12/03/22 History D3 12.5 mcg (500 unit) capsule (Calcium 600 with Vitamin D3) atenolol 25 mg tablet 25 mg PO DAILY 12/03/22 12/03/22 History clonazepam 0.5 mg tablet 0.5 mg PO HS PRN anxiety or sleep 12/03/22 12/03/22 History sodium chloride 5 % eye drops 1 drp ophthalmic (eye) BID PRN 12/03/22 12/03/22 History restless leg Patient History Medical History 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) HTN (hypertension) Restless legs syndrome (RLS) Surgical History H/O partial mastectomy Family History Other Breast cancer Hypertension Social History Smoking Status: Never smoker Hx Alcohol Use: Yes Alcohol type: beer and wine Alcohol Intake Frequency: 2-4 x/Month Hx Substance Use: No Preferred Language: [place] Communication Ability: Effective Front End Web Developer Required: No Beliefs That Will Affect Care: None Current Living Situation: Spouse Other Information That Helps Us Care for You: No Feels Safe at Home: Yes Safety Concerns: Feels Safe At This Time Assistive Devices: Glasses Review of Systems Review of Systems: All systems reviewed & are unremarkable except as noted in HPI & below Physical Exam Constitutional: WD/WN, vitals as above Respiratory: normal respiratory effort, lungs clear to auscultation Cardiovascular: Rate/Rhythm: regular rate and regular rhythm Gastrointestinal (Abdomen): normal bowel sounds, soft, nontender, no hepatosplenomegaly Skin: + jaundice Results & Data ([facility]) Vital Signs (Past 12 Hours) Vital Signs Temp Pulse Pulse Resp BP Pulse Ox O2 Del Method 12/04/22 07:43 37.0 C 71 18 149/87 H 99 Room Air 12/04/22 02:29 36.7 C 77 18 151/86 H 99 Room Air 12/03/22 22:34 74 12/03/22 22:22 36.6 C 72 18 160/90 H 99 Room Air Laboratory Results 12/04/22 12/04/22 12/03/22 Range/Units 06:22 06:22 17:00 WBC 4.33 L (4.8-10.8) K/ul RBC 4.24 (4.20-5.40) M/uL Hgb 12.7 (12.0-16.0) g/dl Hct 38.1 (37.0-47.0) % MCV 89.9 (80.0-100.0) fL MCH 30.0 (25.0-34.0) pg MCHC 33.3 (32.0-36.0) g/dL RDW Std Deviation 49.9 H (36.4-46.3) fL RDW Coeff of Vicky 15.1 H (11.5-14.5) % Plt Count 221 (130-400) K/uL MPV 11.3 (9.4-12.4) fL Immature Gran % (Auto) % Neut % (Auto) % Lymph % (Auto) % [place] % (Auto) % Eos % (Auto) % Baso % (Auto) % Neut # (Auto) (1.40-6.50) K/uL Lymph # (Auto) (1.2-3.4) K/uL [place] # (Auto) (0.11-0.59) K/uL Eos # (Auto) (0-0.50) K/uL Baso # (Auto) (0-0.2) K/uL Immature Gran # (Auto) (0.01-0.20) K/uL Sodium 140 (136-145) mmol/L Potassium 3.4 L (3.5-5.1) mmol/L Chloride 105 (98-107) mmol/L Carbon Dioxide 28 (21-32) mmol/L Anion Gap 7 (3-11) BUN 9 (6-23) mg/dl Creatinine 0.86 (0.6-1.2) mg/dl Est Cr Clr Drug Dosing 61.6 ml/min Est GFR ( Amer) 77.7 ml/min Est GFR (Non-Af Amer) 67.0 ml/min BUN/Creatinine Ratio 10.5 (10-20) Glucose 118 H (70-99(Fasting)) mg/dl Calcium 9.2 (8.5-10.1) mg/dl Total Bilirubin 6.7 H (0.2-1.0) mg/dl AST 251 H (13-39) U/L ALT 317 H (7-52) U/L Alkaline Phosphatase 394 H (34-104) U/L Total Protein 6.3 (6.0-8.3) gm/dl Albumin 3.6 (3.4-5.0) gm/dl Globulin 2.7 (2.5-4.0) gm/dl Albumin/Globulin Ratio 1.3 (0.9-2) Lipase (11-82) U/L Urine Color Urine Appearance (Clear) Urine pH (4.5-7.5) Ur Specific [place] (1.000-1.030) Urine Protein (Negative) Urine Glucose (UA) (Negative) Urine Ketones (Negative) Urine Blood (Negative) Urine Nitrite (Negative) Urine Bilirubin (Negative) Urine Urobilinogen (Negative) Ur Leukocyte Esterase (Negative) Urine WBC (Auto) (0-5) /hpf Urine RBC (Auto) (0-4) /hpf U Hyaline Cast (Auto) (0-5) /lpf U Epithel Cells (Auto) (0-5) /lpf Urine Bacteria (Auto) (Negative) Urine Mucus (None Prsent) Urine Yeast SARS-CoV-2, RNA, NAAT NEGATIVE (NEGATIVE) 12/03/22 12/03/22 12/03/22 Range/Units 16:57 15:50 15:50 WBC (4.8-10.8) K/ul RBC (4.20-5.40) M/uL Hgb (12.0-16.0) g/dl Hct (37.0-47.0) % MCV (80.0-100.0) fL MCH (25.0-34.0) pg MCHC (32.0-36.0) g/dL RDW Std Deviation (36.4-46.3) fL RDW Coeff of Vicky (11.5-14.5) % Plt Count (130-400) K/uL MPV (9.4-12.4) fL Immature Gran % (Auto) % Neut % (Auto) % Lymph % (Auto) % [place] % (Auto) % Eos % (Auto) % Baso % (Auto) % Neut # (Auto) (1.40-6.50) K/uL Lymph # (Auto) (1.2-3.4) K/uL [place] # (Auto) (0.11-0.59) K/uL Eos # (Auto) (0-0.50) K/uL Baso # (Auto) (0-0.2) K/uL Immature Gran # (Auto) (0.01-0.20) K/uL Sodium 141 (136-145) mmol/L Potassium 3.7 (3.5-5.1) mmol/L Chloride 102 (98-107) mmol/L Carbon Dioxide 28 (21-32) mmol/L Anion Gap 11 (3-11) BUN 11 (6-23) mg/dl Creatinine 0.96 (0.6-1.2) mg/dl Est Cr Clr Drug Dosing 55.4 ml/min Est GFR ( Amer) 68.0 ml/min Est GFR (Non-Af Amer) 58.7 ml/min BUN/Creatinine Ratio 11.5 (10-20) Glucose 133 H (70-99(Fasting)) mg/dl Calcium 9.9 (8.5-10.1) mg/dl Total Bilirubin 7.0 H (0.2-1.0) mg/dl AST 273 H (13-39) U/L ALT 357 H (7-52) U/L Alkaline Phosphatase 488 H (34-104) U/L Total Protein 7.4 (6.0-8.3) gm/dl Albumin 4.2 (3.4-5.0) gm/dl Globulin 3.2 (2.5-4.0) gm/dl Albumin/Globulin Ratio 1.3 (0.9-2) Lipase Cancelled 34 (11-82) U/L Urine Color Dark Yellow Urine Appearance Cloudy A (Clear) Urine pH 6.0 (4.5-7.5) Ur Specific [place] 1.019 (1.000-1.030) Urine Protein Trace H (Negative) Urine Glucose (UA) Negative (Negative) Urine Ketones Trace H (Negative) Urine Blood Negative (Negative) Urine Nitrite Positive A (Negative) Urine Bilirubin 3+ H (Negative) Urine Urobilinogen Negative (Negative) Ur Leukocyte Esterase 2+ H (Negative) Urine WBC (Auto) 10-30 H (0-5) /hpf Urine RBC (Auto) 0-4 (0-4) /hpf U Hyaline Cast (Auto) 1-5 (0-5) /lpf U Epithel Cells (Auto) >30 H (0-5) /lpf Urine Bacteria (Auto) 1+ H (Negative) Urine Mucus Present A (None Prsent) Urine Yeast Not Reportable SARS-CoV-2, RNA, NAAT (NEGATIVE) 12/03/22 Range/Units 15:50 WBC 6.26 (4.8-10.8) K/ul RBC 4.72 (4.20-5.40) M/uL Hgb 13.9 (12.0-16.0) g/dl Hct 42.1 (37.0-47.0) % MCV 89.2 (80.0-100.0) fL MCH 29.4 (25.0-34.0) pg MCHC 33.0 (32.0-36.0) g/dL RDW Std Deviation 48.5 H (36.4-46.3) fL RDW Coeff of Vicky 14.7 H (11.5-14.5) % Plt Count 221 (130-400) K/uL MPV 11.8 (9.4-12.4) fL Immature Gran % (Auto) 0.2 % Neut % (Auto) 55.6 % Lymph % (Auto) 31.8 % [place] % (Auto) 8.1 % Eos % (Auto) 3.8 % Baso % (Auto) 0.5 % Neut # (Auto) 3.48 (1.40-6.50) K/uL Lymph # (Auto) 1.99 (1.2-3.4) K/uL [place] # (Auto) 0.51 (0.11-0.59) K/uL Eos # (Auto) 0.24 (0-0.50) K/uL Baso # (Auto) 0.03 (0-0.2) K/uL Immature Gran # (Auto) 0.01 (0.01-0.20) K/uL Sodium (136-145) mmol/L Potassium (3.5-5.1) mmol/L Chloride (98-107) mmol/L Carbon Dioxide (21-32) mmol/L Anion Gap (3-11) BUN (6-23) mg/dl Creatinine (0.6-1.2) mg/dl Est Cr Clr Drug Dosing ml/min Est GFR ( Amer) ml/min Est GFR (Non-Af Amer) ml/min BUN/Creatinine Ratio (10-20) Glucose (70-99(Fasting)) mg/dl Calcium (8.5-10.1) mg/dl Total Bilirubin (0.2-1.0) mg/dl AST (13-39) U/L ALT (7-52) U/L Alkaline Phosphatase (34-104) U/L Total Protein (6.0-8.3) gm/dl Albumin (3.4-5.0) gm/dl Globulin (2.5-4.0) gm/dl Albumin/Globulin Ratio (0.9-2) Lipase (11-82) U/L Urine Color Urine Appearance (Clear) Urine pH (4.5-7.5) Ur Specific [place] (1.000-1.030) Urine Protein (Negative) Urine Glucose (UA) (Negative) Urine Ketones (Negative) Urine Blood (Negative) Urine Nitrite (Negative) Urine Bilirubin (Negative) Urine Urobilinogen (Negative) Ur Leukocyte Esterase (Negative) Urine WBC (Auto) (0-5) /hpf Urine RBC (Auto) (0-4) /hpf U Hyaline Cast (Auto) (0-5) /lpf U Epithel Cells (Auto) (0-5) /lpf Urine Bacteria (Auto) (Negative) Urine Mucus (None Prsent) Urine Yeast SARS-CoV-2, RNA, NAAT (NEGATIVE)
--- NOTE | 2022-12-04 10:59 | Surgery Progress Note ---
Date of Service December 04, 2022 Assessment & Plan (1) Transaminitis: Plan: Patient here with elevated LFTs, found to have newly founded GB mass which appears to be encroaching the hepatic flexure and cannot rule out hepatic invasion As it is compressing the biliary tree, GI is involved for ERCP possible EUS Discussed with patient she will need referral to a hepatobiliary surgeon which we do not here for future resection of this once diagnosis confirmed No obstructive symptoms at this time. encouraged patient to eat small/frequent meals, may do well with full liquids and high protein diet No plans for surgical intervention here we will sign off, but call back with any questions/concerns (2) Gallbladder mass: (3) Biliary obstruction: Admission and Anticipated Discharge Date Admission Date: December 03, 2022 Subjective Patient is feeling well. Denies any abdominal complaints. No pain/nausea/vomiting. Eager to get started on workup for her elevated LFTs and newly founded GB mass.. Physical Exam Physical Exam: awake/alert Respiratory: normal respiratory effort Gastrointestinal (Abdomen): Inspection/Auscultation: abdomen not distended Percussion/Palpation: abdomen soft; abdomen nontender Skin: + jaundice Results & Data ([facility]) Vital Signs (Past 12 Hours) Vital Signs Temp Pulse Resp BP Pulse Ox O2 Del Method 12/04/22 07:43 37.0 C 71 18 149/87 H 99 Room Air 12/04/22 02:29 36.7 C 77 18 151/86 H 99 Room Air PG Care Time/CCT Total # of Minutes Spent Total Time Spent with Patient: Total time spent is greater than 50% in coordination of care (as documented) at patient's floor/unit and/or counseling patient: Coding Level of Care Code 80475 SUB INP/OBS CARE 1/25MIN Diagnoses Transaminitis R74.01 Gallbladder mass K82.8 Biliary obstruction K83.1
[2022-12-04] MEDS ORDERED: PROPOFOL IV EMULSION 10 MG/ML 20 ML VIAL IV ONE (13:30)
[2022-12-04] MEDS ORDERED: fentaNYL citrate 100 MCG/2 ML VIAL ONE (13:30)
[2022-12-04] MEDS ORDERED: LIDOCAINE 2% MPF LOCAL 5 ML VIAL INFIL ONE (13:30)
[2022-12-04] MEDS ORDERED: MIDAZOLAM HCL 1 MG/ML 2ML VIAL ONE (13:30)
[2022-12-04] MEDS ORDERED: ROCURONIUM BROMIDE 10 MG/ML 5 ML VIAL IV ONE ×5 (13:31)
--- NOTE | 2022-12-04 14:01 | Anesthesiology Consultation ---
Date of Service December 04, 2022 Assessment & Plan Chart Review Chart Review: Acceptable Risk for Surgery Consults Requested none History Surgery Operation Date: 12/04/22 07:00 Proposed Procedures p Endoscopic Retrograde Cholangiopancreatogram - Tanya Morris MD Height/Weight Height: 5 ft 5 in Weight: 81.9 kg Allergies Allergy/AdvReac Type Severity Reaction Status Date / Time latex Allergy Mild Rash Verified 12/03/22 16:07 sulfamethoxazole Allergy Unknown SWELLING Verified 12/03/22 16:07 ON FACE AND LIPS trimethoprim Allergy Unknown SWELLING Verified 12/03/22 16:07 ON FACE AND LIPS metformin AdvReac Unknown mood Verified 12/03/22 16:07 disorder per [facility] record SPICY FOOD Allergy Unknown SWELLING Uncoded 04/03/21 14:11 Medications Home Medications Medication Instructions Recorded Confirmed Last Taken calcium carbonate 600 mg-vitamin 1 cap PO DAILY 04/08/22 12/03/22 Unknown D3 12.5 mcg (500 unit) capsule (Calcium 600 with Vitamin D3) atenolol 25 mg tablet 25 mg PO DAILY 12/03/22 12/03/22 Unknown clonazepam 0.5 mg tablet 0.5 mg PO HS PRN anxiety or sleep 12/03/22 12/03/22 Unknown sodium chloride 5 % eye drops 1 drp ophthalmic (eye) BID PRN 12/03/22 12/03/22 Unknown restless leg Active Medications Generic Name Dose Route Start Last Admin Trade Name Freq PRN Reason Stop Dose Admin Atenolol 25 mg 12/04/22 09:00 12/04/22 08:01 Atenolol 25 Mg Tablet PO 01/03/23 08:59 25 mg DAILY JOSEPH Administration Calcium/Vitamin D 1 tab 12/04/22 09:00 12/04/22 08:01 Calcium 600mg + Vit D 400 Iu Tab PO 01/03/23 08:59 1 tab DAILY JOSEPH Administration Clonazepam 0.5 mg 12/03/22 19:16 12/03/22 20:55 Clonazepam 0.5 Mg Tab PO 01/02/23 19:15 0.125 mg HS PRN Administration anxiety or sleep Hydralazine HCl 5 mg 12/03/22 18:10 12/04/22 12:06 Hydralazine Hcl 20 Mg/Ml Vial IV 01/02/23 18:09 5 mg Q6H PRN Administration SBP >170 or DBP >105 Piperacillin Sod/Tazobactam 115 mls @ 28.75 mls/hr 12/04/22 01:00 12/04/22 11:52 Sod 3.375 gm/ Dextrose IV 12/14/22 00:59 Infused Q8H JOSEPH Infusion Protocol Sodium Chloride 1 drops 12/03/22 19:42 12/03/22 21:08 Sodium Chloride 5% Op Soln 15 Ml Btl OP 01/02/23 19:41 1 drops BID PRN Administration eye irritation NPO Date Last Intake of Fluids: 12/03/22 Time Last Intake of Fluids: 21:00 Date Last Intake of Solids: 12/03/22 Time Last Intake of Solids: 21:00 Past Medical History Medical History 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) HTN (hypertension) Restless legs syndrome (RLS) Past Family History Family History Other Breast cancer Hypertension Past Surgical History Surgical History H/O partial mastectomy Social History Smoking Status: Never smoker Hx Alcohol Use: Yes Alcohol type: beer and wine alcohol intake frequency: other Alcohol Intake Frequency Comment: maybe once a month Hx Substance Use: No substance use type: does not use Physical Exam Vital Signs Last Vital Signs Temp 36.9 C 12/04/22 13:20 Pulse 75 12/04/22 13:20 Resp 20 12/04/22 13:20 BP 154/103 H 12/04/22 13:20 Pulse Ox 99 12/04/22 13:20 O2 Del Method Room Air 12/04/22 13:20 Testing Laboratory Results 12/04/22 06:22 12/04/22 06:22 Urine Color Dark Yellow 12/03/22 16:57 Urine Appearance Cloudy (Clear) A 12/03/22 16:57 Urine pH 6.0 (4.5-7.5) 12/03/22 16:57 Ur Specific [place] 1.019 (1.000-1.030) 12/03/22 16:57 Urine Protein Trace (Negative) H 12/03/22 16:57 Urine Glucose (UA) Negative (Negative) 12/03/22 16:57 Urine Ketones Trace (Negative) H 12/03/22 16:57 Urine Nitrite Positive (Negative) A 12/03/22 16:57 Ur Leukocyte Esterase 2+ (Negative) H 12/03/22 16:57 Urine WBC (Auto) 10-30 /hpf (0-5) H 12/03/22 16:57 Urine RBC (Auto) 0-4 /hpf (0-4) 12/03/22 16:57 U Hyaline Cast (Auto) 1-5 /lpf (0-5) 12/03/22 16:57 U Epithel Cells (Auto) >30 /lpf (0-5) H 12/03/22 16:57 Urine Bacteria (Auto) 1+ (Negative) H 12/03/22 16:57 12/03/22 16:57 Urine Culture - Preliminary Urine,Clean Catch Pin-point growth present, reincubating.
[2022-12-04] MEDS ORDERED: ONDANSETRON INJ 2 MG/ML 2 ML VIAL IV PRN (14:02)
[2022-12-04] MEDS ORDERED: PROMETHAZINE HCL 12.5 MG in SODIUM CHLORIDE 0.9% 50 ML IV PRN (14:02)
[2022-12-04] MEDS ORDERED: HYDROmorphone INJ 2 MG/ML SYR/VIAL IV PRN (14:02)
[2022-12-04] MEDS ORDERED: ePHEDrine sulfate 50 MG/ML AMP IV PRN (14:02)
[2022-12-04] MEDS ORDERED: ATROPINE SULFATE 0.1 MG/ML 10ML SYR IV PRN (14:02)
[2022-12-04] MEDS ORDERED: fentaNYL citrate 100 MCG/2 ML VIAL IV PRN (14:02)
[2022-12-04] MEDS ORDERED: INDOMETHACIN 50 MG SUPP PR ONE (14:34)
--- NOTE | 2022-12-04 14:44 | History & Physical Bridge Note ---
Date of Service December 04, 2022 History & Physical Bridge Note I have examined the patient, reviewed the History & Physical and in the interval since the performance of the History & Physical I have noted the following changes of clinical significance: no changes noted EUS/ERCP Patient was explained in detail regarding risks, benefits, limitations and alternatives of the above endoscopic procedure. Risks of intravenous sedation used for procedure were also explained. Risks include, but not limited to perforation, bleeding, infection, respiratory distress, cardiac arrest and . Patient is also aware about the possibility of missed lesion. Patient's questions were answered. The patient verbalized understanding the information and agreed to undergo the procedure.
[2022-12-04] MEDS ORDERED: ONDANSETRON INJ 2 MG/ML 2 ML VIAL ONE ×2 (15:01→16:05)
[2022-12-04] MEDS ORDERED: GLYCOPYRROLATE 0.2 MG/ML VIAL ONE (15:02)
[2022-12-04] MEDS ORDERED: NEOSTIGMINE METHYLSULFATE 1 MG/ML 10ML VIAL ONE (15:02)
[2022-12-04] MEDS ORDERED: SUCCINYLCHOLINE CHLORIDE 20 MG/ML 10 ML VIAL IV ONE (15:02)
[2022-12-04] MEDS ORDERED: DEXAMETHASONE SOD INJ 4 MG/ML VIAL ONE (15:02)
--- NOTE | 2022-12-04 15:51 | Operative Report ---
Post Operative Report Pre & Post Diagnosis Operation Date: 12/04/22 07:00 Pre-Op Diagnosis: MRI, OBSTUCTION, REF BY DOC I identified the patient and participated in the time-out.: Yes Procedure Operation Date: 12/04/22 07:00 <No data on this case meets the specified criteria> Surgeon Tanya Morris MD Car Rental Agent None Estimated Blood Loss 0 Findings See Below (Large gallbladder mass causing severe duodenal stenosis, biopsies taken) Specimens FNA GB mass Description of Procedure EUS I attest to the content of the Intraoperative Record and any orders documented therein. Any exceptions are noted below.
--- NOTE | 2022-12-04 16:23 | GI REPORT ---
Patient Name: Anjelica Wiley Procedure Date: 12/04/2022 2:16 PM Date of : 1950 Admit Type: Inpatient Age: 72 Gender: Female Attending MD: Tanya Morris MD, Procedure: Upper GI endoscopy Providers: Tanya Morris MD Referring MD: Hardik Gross Md, John Wood Md Indications: Weight loss Medicines: General Anesthesia Complications: No immediate complications. Estimated Blood Loss: Estimated blood loss: none. Procedure: Pre-Anesthesia Assessment: - Prior to the procedure, a History and Physical was performed, and patient medications, allergies and sensitivities were reviewed. The patient's tolerance of previous anesthesia was reviewed. - The risks and benefits of the procedure and the sedation options and risks were discussed with the patient. All questions were answered and informed consent was obtained. - Patient identification and proposed procedure were verified prior to the procedure by the physician and the nurse. The procedure was verified in the procedure room. - Pre-procedure physical examination revealed no contraindications to sedation. After obtaining informed consent, the endoscope was passed under direct vision. Throughout the procedure, the patient's blood pressure, pulse, and oxygen saturations were monitored continuously. The Scope was introduced through the mouth, and advanced to the duodenal bulb. The upper GI endoscopy was accomplished without difficulty. The patient tolerated the procedure well. Findings: The examined esophagus was normal. The entire examined stomach was normal. An acquired extrinsic severe stenosis was found in the duodenal bulb and was non-traversed. A TTS dilator was passed through the scope. Dilation with a 12-13.5-15 mm pyloric balloon dilator was performed. Impression: - Normal esophagus. - Normal stomach. 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 Upper endoscope could not traverse despite balloon dilation. Recommendation: - Perform an upper endoscopic ultrasound (UEUS) today. Tanya Morris MD 12/04/2022 4:23:15 PM This report has been signed electronically. Note Initiated On: 12/04/2022 2:16 PM Number of Addenda: 0 I attest to the content of the Intraoperative Record and orders documented therein, exceptions below {[id number]}
--- NOTE | 2022-12-04 16:30 | GI REPORT ---
Patient Name: Anjelica Wiley Procedure Date: 12/04/2022 2:17 PM Date of : 1950 Admit Type: Inpatient Age: 72 Gender: Female Attending MD: Tanya Morris MD, Procedure: Upper EUS Providers: Tanya Morris MD Referring MD: Hardik Gross Md, John Wood Md Indications: Suspected mass in the gallbladder on abdominal/pelvic CT scan Medicines: General Anesthesia Complications: No immediate complications. Estimated Blood Loss: Estimated blood loss: none. Procedure: Pre-Anesthesia Assessment: - Prior to the procedure, a History and Physical was performed, and patient medications, allergies and sensitivities were reviewed. The patient's tolerance of previous anesthesia was reviewed. - The risks and benefits of the procedure and the sedation options and risks were discussed with the patient. All questions were answered and informed consent was obtained. - Patient identification and proposed procedure were verified prior to the procedure by the physician and the nurse. The procedure was verified in the procedure room. - Pre-procedure physical examination revealed no contraindications to sedation. After obtaining informed consent, the endoscope was passed under direct vision. Throughout the procedure, the patient's blood pressure, pulse, and oxygen saturations were monitored continuously. The Endosonoscope was introduced through the mouth, and advanced to the duodenal bulb. The upper EUS was accomplished without difficulty. The patient tolerated the procedure well. Findings: ENDOSONOGRAPHIC FINDING: : A round hypoechoic and heterogenous mass was identified endosonographically in the gallbladder area. The mass measured 60 mm in maximal cross-sectional diameter. The outer margins were poorly-defined. There was sonographic evidence suggesting invasion into the hepatic parenchyma (manifested by invasion), the duodenum (manifested by invasion) and the portal vein (manifested by abutment). Fine needle biopsy was performed. Color Doppler imaging was utilized prior to needle puncture to confirm a lack of significant vascular structures within the needle path. Four passes were made with the 25 gauge Pansieve EchoTip Ultra biopsy needle using a transduodenal approach. Touch preps were performed. The cellularity of the specimen was adequate. Final cytology results are pending. Verification of patient identification for the specimen was done by the physician and nurse using the patient's name and date. There was dilation diffusely throughout the intrahepatic bile duct(s). The common bile duct was not visualized due to the mass invading the hilar area. The visualized portion of the pancreas was normal. Impression: - A mass was found in the gallbladder area invading the duodenal wall. Fine needle biopsy performed. - There was dilation in the intrahepatic bile ducts, diffusely. Recommendation: - Await cytology results. - Transfer the patient to [facility] to perform EUS guided gastrojejunostomy and IR guided PTC drainage. This will allow access to perform ERCP in one month once the tract is mature and stent the CBD retrogradely. Tanya Morris MD 12/04/2022 4:30:02 PM This report has been signed electronically. Note Initiated On: 12/04/2022 2:17 PM Number of Addenda: 0 I attest to the content of the Intraoperative Record and orders documented therein, exceptions below {[id number]}
--- NOTE | 2022-12-04 17:26 | Anesthesiology Progress Note ---
Date of Service December 04, 2022 Anesthesia Post Procedure Vital Signs Vital Signs: Temp Pulse Pulse Resp BP Pulse Ox O2 Del Method 12/04/22 17:12 36.8 C 67 18 161/93 H 98 Room Air 12/04/22 16:50 36.5 C 70 16 162/90 H 99 Room Air 12/04/22 16:35 36.3 C L 68 18 140/89 99 Room Air 12/04/22 16:25 67 18 154/76 H 99 Room Air 12/04/22 16:15 70 18 149/92 H 99 Oxymask 12/04/22 16:09 36.3 C L 75 18 148/87 H 98 Oxymask 12/04/22 07:00 78 12/04/22 13:20 36.9 C 75 20 154/103 H 99 Room Air 12/04/22 13:00 158/90 H 12/04/22 12:00 37.3 C 76 16 183/101 H 95 Room Air 12/04/22 07:43 37.0 C 71 18 149/87 H 99 Room Air 12/04/22 02:29 36.7 C 77 18 151/86 H 99 Room Air 12/03/22 22:34 74 12/03/22 22:22 36.6 C 72 18 160/90 H 99 Room Air 12/03/22 19:30 36.5 C 71 18 169/99 H 99 Room Air O2 Flow Rate 12/04/22 17:12 12/04/22 16:50 12/04/22 16:35 12/04/22 16:25 12/04/22 16:15 5 12/04/22 16:09 5 12/04/22 07:00 12/04/22 13:20 12/04/22 13:00 12/04/22 12:00 12/04/22 07:43 12/04/22 02:29 12/03/22 22:34 12/03/22 22:22 12/03/22 19:30 Transfer of Care Handoff Completed per policy Notes Mental Status: alert / awake / arousable and participated in evaluation Patient Amnestic to Procedure: Yes Nausea / Vomiting: adequately controlled Pain: adequately controlled Airway Patency, RR, SpO2: stable & adequate BP & HR: stable & adequate Hydration State: stable & adequate Anesthetic Complications: no major complications apparent
[2022-12-04 17:47] VITALS: O2SAT 97
--- NOTE | 2022-12-04 18:06 | Discharge Summary ---
Date of Service December 04, 2022 Admission HPI Per Admitting Provider This is a 72-year-old female with PMH of hypertension, breast cancer, hypothyroidism, prediabetes and other medical problems listed below who presents after findings of an abnormal liver ultrasound and worsening transaminitis. Is following with Dr. Gross for history of invasive ductal carcinoma of the breast and has completed treatment with left partial mastectomy, radiation therapy as well as 5 years of tamoxifen completed in August 2022. He had noted increasing liver enzymes and ordered ultrasound of the liver, which revealed diffuse intra hepatic and extrahepatic biliary ductal dilation and heterogeneous masslike lesion in the gallbladder which may represent fundal adenomyomatosis. Was sent in to ED for further evaluation. No fever or chills. Poor appetite for 1 week with early satiety. Has been belching intermittently. Jaundiced skin. No abdominal pain. Having dark urine and feeling constipated but having small bowel movements. No dysuria or diarrhea. Admission Exam Per Admitting Provider Constitutional: WD/WN, vitals as above Eyes: PERRL, conjunctivae normal ENMT: external ear and nose normal, oropharynx normal Neck: supple, + thick Respiratory: normal respiratory effort, lungs clear to auscultation Cardiovascular: RRR, no murmur, no edema Chest (Breasts): Chest: normal inspection of chest Gastrointestinal (Abdomen): normal bowel sounds, soft, nontender Musculoskeletal: extremities motor strength 5/5 Skin: no rashes, warm and dry (+ mild jaundice) Neurologic: PERRL, EOMI, no face palsy, no dysarthria, moves extremities Psychiatric: A+Ox3, euthymic affect Principal Diagnosis Gallbladder mass, and 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 Discharge Exam Constitutional: WD/WN, vitals as above Eyes: PERRL, conjunctivae normal ENMT: external ear and nose normal, oropharynx normal Neck: supple, + thick Respiratory: normal respiratory effort, lungs clear to auscultation Cardiovascular: RRR, no murmur, no edema Chest (Breasts): Chest: normal inspection of chest Gastrointestinal (Abdomen): normal bowel sounds, soft, nontender Musculoskeletal: extremities motor strength 5/5 Skin: no rashes, warm and dry (+ mild jaundice) Neurologic: PERRL, EOMI, no face palsy, no dysarthria, moves extremities Psychiatric: A+Ox3, euthymic affect Discharge Data Allergies Allergy/AdvReac Type Severity Reaction Status Date / Time latex Allergy Mild Rash Verified 12/03/22 16:07 sulfamethoxazole Allergy Unknown SWELLING Verified 12/03/22 16:07 ON FACE AND LIPS trimethoprim Allergy Unknown SWELLING Verified 12/03/22 16:07 ON FACE AND LIPS metformin AdvReac Unknown mood Verified 12/03/22 16:07 disorder per [facility] record SPICY FOOD Allergy Unknown SWELLING Uncoded 04/03/21 14:11 Consultations 12/03/22 16:34 ED Decision to Admit Stat 12/03/22 18:12 Consult General Surgery Routine 12/03/22 18:12 Consult Gastroenterology Routine 12/04/22 17:02 Burn CD for patient Routine Procedures Performed Operation Date: 12/04/22 07:00 Actual Procedures p Endoscopic Ultrasonography Upper with FNA - Tanya Morris MD s Esophagogastroduodenoscopy with dilation - Tanya Morris MD Ordered Studies 12/03/22 16:40 CT abd pelvis IV con only Stat FINDINGS: Lower chest: No acute abnormality. Liver: Unremarkable. No focal lesions are seen. Gallbladder and biliary tree: There is a large heterogeneous, partially calcified soft tissue mass in the gallbladder with enlargement of the gallbladder lumen, measuring approximately 6 x 6 x 10 cm. There is dilation of the intra and extrahepatic bile ducts likely due to mass effect. Pancreas: Unremarkable, no focal lesions. Spleen: Unremarkable. Adrenals: Unremarkable. Kidneys and ureters: Left parapelvic cysts noted. Subcentimeter hypodensities are too small to characterize but likely represent cysts as well. Bladder: Limited evaluation due to underdistention. Reproductive organs: A calcified fibroid is noted. Bowel: Diverticulosis is seen without evidence of diverticulitis. A loop of hepatic flexure is seen to be adherent to the gallbladder mass with prominent fat stranding. The appendix is normal. Lymph nodes Retroperitoneal: Unremarkable. Pelvic: Unremarkable. Mesenteric: Unremarkable. Peritoneum: There is prominent fat stranding about the gallbladder mass which likely reflects increased vascularity. There is loss of the fat plane between the gallbladder mass in the hepatic flexure. Vessels: Unremarkable. Abdominal wall: Unremarkable. Bones: Degenerative changes in the visualized spine. IMPRESSION: 1. 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 There is possible involvement of the hepatic flexure. Hepatic invasion cannot be entirely excluded. Biliary ductal dilation is seen compatible with mass effect. No lisa metastases are seen. 2. Diverticulosis without diverticulitis. ACT 112: Positive. There are findings on this exam that require communication between the performing entity and the patient following Patient Test Result Information Act ([place] Act 112) guidelines. 12/04/22 14:04 US upper EUS PACS images Routine Hospital Course (1) Biliary obstruction: (2) Transaminitis: This is a 72 yo female with hypertension, hx of breast cancer s/p treatment, hypothyroidism, prediabetes who presents after findings of an abnormal liver ultrasound and worsening transaminitis. 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 There is possible involvement of the hepatic flexure. Hepatic invasion cannot be entirely excluded. Biliary ductal dilation is seen compatible with mass effect. No lisa metastases are seen GI consulted - Dr. Morris - s/p upper GI endoscopy (12/04/2022) Findings: The examined esophagus was normal. The entire examined stomach was normal. An acquired extrinsic severe stenosis was found in the duodenal bulb and was non-traversed. A TTS dilator was passed through the scope. Dilation with a 12-13.5-15 mm pyloric balloon dilator was performed. Impression: - Normal esophagus. - Normal stomach. 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 Upper endoscope could not traverse despite balloon dilation. Recommendation: - Perform an upper endoscopic ultrasound (UEUS) today. S/p EUS (12/04/22) A mass was found in the gallbladder area invading the duodenal wall. Fine- needle biopsy performed. There was dilation in the intrahepatic bile ducts, diffusely. Recommendation Await cytology results. Transfer the patient to [facility] to perform EUS guided gastrojejunostomy and IR guided PTC drainage. This will allow access to perform ERCP in 1 month once the tract is mature and stent the CBD retrogradely. Pt s/p FNA biopsy - results pending Cont. IV zosyn General surgery also consulted - further surg. treatment in tertiary center after GI procedures and likely oncology consultation. Further GI procedure recommended to be done at the [facility], and subsequent IR biliary drainage to be also done at [facility]. Patient will be transferred to their care for further treatment. (3) Invasive ductal carcinoma of breast: Follows with Dr. 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 Upper endoscopy was done, and severe duodenal stenosis was found, upper endoscope could not traverse despite balloon dilation. It was recommended to transfer patient to [facility] for further GI procedure and also intervention by IR, to drain biliary content. Pending Studies at Discharge: Yes Studies:: FNA biopsy results Stand-Alone Forms: [facility] Skilled Items Patient informed of condition?: Yes DNR: No Discharge Level of Care: Other Communicable Disease: No Discharge Prognosis: Other Lines: Peripheral IV Urinary Catheter: No Medications and DC Order Prescriptions: Continued calcium carbonate-vitamin D3 [Calcium 600 with Vitamin D3] 600 mg-12.5 mcg (500 unit) capsule 1 cap PO DAILY clonazepam 0.5 mg tablet 0.5 mg PO HS PRN (Reason: anxiety or sleep) atenolol 25 mg tablet 25 mg PO DAILY sodium chloride 5 % Drops 1 drp OPHTHALMIC (EYE) BID PRN (Reason: restless leg) Discharge Orders: Discharge Order (Routine); Ordered 12/04/22 Ordered By: John Wood Admission Data Admit Date/Time: 12/03/22 17:33 Attending Provider: John Wood Admit Provider: John Wood Primary Care Provider: Rubi Irving Other Providers: John Wood ; Tanya Morris ; iCndy Edge
[2022-12-04 19:50] VITALS: BP 163/89; PULSE 77; TEMP 98.1
== END 2022-12-04 19:55 | disposition short-term general hospital (02) | DRG 435 ==
LOC: ED 15:01 → 2W 17:33

== ENCOUNTER 2024-06-06 14:28 | Inpatient (IN) ==
[2024-06-06] MEDS: SODIUM CHLORIDE 0.9% 500 ML IV STA (15:37)
--- NOTE | 2024-06-06 16:32 | Emergency Department Note ---
Impression & Plan Acute hypotension, EUGENE (acute kidney injury), Gallbladder mass, Elevated lactic acid level, Acute dehydration, Acute hyponatremia ED Provider Note NAME: LEAH WESLEY AGE: 74 SEX: F : 1950 ARRIVES VIA: Walk-In INFORMANT: Patient ED PROVIDER(S): Nehemiah Rubin DO CHIEF COMPLAINT: Weakness HPI: Patient is a 74-year-old female with a past medical history of metastatic gallbladder cancer who presents to the ER on chemo with the last course that started this past Wednesday to . She notes that on Wednesday she has been extremely weak. who is present at bedside gives additional history and notes that she has not left bed. She has been able to walk. She denies any headache or change in vision. No chest pain or shortness of breath. Over the past 2 months she has had some worsening belly pain. She has not been urinating much. No dysuria, urgency, or frequency. No fevers. No other exacerbating or remitting factors. ADDITIONAL HISTORY OBTAINED: Per HPI Chronic Medical/Social Conditions Affecting Care: Per HPI PAST MEDICAL HISTORY:See Below PAST SURGICAL HISTORY:See Below FAMILY HISTORY:See Below SOCIAL HISTORY:See Below HOME MEDICATIONS:See Below ALLERGIES:See Below VITALS:See Below PHYSICAL EXAMINATION: GENERAL: Laying in bed, ill-appearing, awake, lethargic, following commands EYE EXAM: normal conjunctiva. PERRL and EOM's grossly intact. OROPHARYNX: Dry mucous membranes NECK: supple, no nuchal rigidity, no adenopathy, non-tender LUNGS: Clear to auscultation. Normal chest wall mechanics HEART: no murmurs, S1 normal and S2 normal ABDOMEN: abdomen soft, non-tender, normo-active bowel sounds, no masses, no rebound or guarding. UPPER EXTREMITIES: upper extremities are grossly normal. LOWER EXTREMITIES: No pitting edema. NEURO EXAM: Normal sensorium, cranial nerves II-XII grossly intact, normal speech, no gross weakness of arms, no gross weakness of legs. MEDICAL DECISION MAKING: Patient is a 74-year-old female who presents the ER for the above-stated complaint. IV was established medicos obtained. Labs show leukopenia 1.8. Mild anemia 10. INR at 1.8. VBG with a pH of 7.4 and a CO2 of 23. Bicarb was down to 15. BMP with bicarb of 15. Creatinine 2.4 up from a baseline of 0.9. Lactic acid elevated at 4.4. LFTs bilirubin was unremarkable. Troponin was negative. Pro-Alexandre 7.4. UA was pending upon admission. Joyner was placed. Patient was given IV cefepime 2 g with the leukopenia and elevated Pro-Alexandre. She was given 2 L of IV fluids. CT abdomen pelvis showed no obvious obstruction. Patient was updated at bedside as well as family. She was feeling better after fluids. Discussed case with the hospitalist for further evaluation management treatment. Patient will monitor closely patient. Consults/Care Managements Discussions: Per [facility] Triage Nursing notes reviewed. Limited review of prior medical records performed Vital Signs: reviewed and remarkable for hypotensive and hypothermic Differential diagnosis: Differential diagnosis includes etiologies such as sepsis, UTI, pneumonia, metabolic, electrolyte abnormalities, cardiac sources, intracerebral event, toxicologic, neurological, as well as others were entertained. ER treatment provided: See below Diagnostics interpreted by me include EKG and cardiac monitoring as listed below: -Cardiac Monitoring: An order was placed for continuous cardiac monitoring. The monitor shows a rate of 90 with sinus rhythm. -ECG: Sinus rhythm rate of 95 Normal axis No PVCs Poor baseline in the inferior leads QTc 434 -Laboratory studies:Interpreted by me as stated above in MDM and shown below. Imaging studies: Xrays: As interpreted by me: Portable AP upright 1 view of the chest shows no focal infiltrate CTs show: CT abdomen pelvis shows no obstruction per radiology Procedures:none Critical Care: I have personally spent 31 minutes of critical care time in the direct management of this patient. This includes bedside care, interpretation of diagnostic studies, and testing, discussion with consultants, patient, and family members, and other required patient management activities. This 31 minutes is in excess of all separately billable procedures. 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) HTN (hypertension) Surgical History H/O partial mastectomy Family History Other Breast cancer Hypertension Social History Smoking Status: Never smoker Hx Alcohol Use: Yes Alcohol type: beer and wine Alcohol Intake Frequency: 2-4 x/Month Hx Substance Use: No Preferred Language: Korean Communication Ability: Effective Invasive Physician Required: No Beliefs That Will Affect Care: None Current Living Situation: Spouse Feels Safe at Home: Yes Assistive Devices: Glasses Allergies Allergies Allergy/AdvReac Type Severity Reaction Status Date / Time latex Allergy Mild Rash Verified 03/02/24 10:30 sulfamethoxazole Allergy Unknown SWELLING Verified 03/02/24 10:30 ON FACE AND LIPS trimethoprim Allergy Unknown SWELLING Verified 03/02/24 10:30 ON FACE AND LIPS metformin AdvReac Unknown mood Verified 03/02/24 10:30 disorder per [facility] record SPICY FOOD Allergy Unknown SWELLING Uncoded 03/02/24 10:30 Home Meds Home Medications Medication Instructions Recorded Confirmed calcium carbonate 600 mg-vitamin 1 cap PO DAILY 04/08/22 06/06/24 D3 12.5 mcg (500 unit) capsule (Calcium 600 with Vitamin D3) atenolol 25 mg tablet 12.5 mg PO DAILY 12/03/22 06/06/24 clonazepam 0.5 mg tablet 0.5 mg PO HS PRN anxiety or sleep 12/03/22 06/06/24 sodium chloride 5 % eye drops 1 drp ophthalmic (eye) BID PRN 12/03/22 06/06/24 restless leg magnesium 200 mg tablet 400 mg PO 2XD 06/29/23 06/06/24 apixaban 5 mg tablet (Eliquis) 5 mg PO BID 06/06/24 06/06/24 megestrol 625 mg/5 mL (125 mg/mL) 2 ml PO DAILY 06/06/24 06/06/24 oral suspension prochlorperazine maleate 10 mg 10 mg PO Q6H PRN Nausea 06/06/24 06/06/24 tablet Results & Data (ED) Vital Signs Vital Signs - 24 hr 06/06/24 14:33 06/06/24 16:07 06/06/24 16:56 Temperature 35.6 C L 36.5 C Temperature Source Temporal Artery Scan Oral Pulse Rate 100 H 90 Pulse Rate [Apical] 93 H Respiratory Rate 20 29 H 20 Respiratory Effort / Characteristics Spontaneous Non-Labored Spontaneous Respiratory Depth Normal Normal Respiratory Pattern Regular Blood Pressure 95/74 L Blood Pressure [Right Arm] 103/85 Blood Pressure Mean 81 Blood Pressure Mean [Right Arm] 91 Blood Pressure Position Sitting Blood Pressure Position [Right Arm] Lying Pulse Oximetry 98 99 100 Oxygen Delivery Method Room Air Room Air Room Air Sepsis Recent Fever Within 48 Hours No Sepsis New/Unexplained Change in Mental Status No Sepsis Action Taken by Nursing No Action Required 06/06/24 17:31 06/06/24 18:48 Temperature Temperature Source Pulse Rate 59 L Pulse Rate [Apical] 73 Respiratory Rate 17 Respiratory Effort / Characteristics Non-Labored Spontaneous Respiratory Depth Normal Respiratory Pattern Blood Pressure Blood Pressure [Right Arm] 103/70 Blood Pressure Mean Blood Pressure Mean [Right Arm] 81 Blood Pressure Position Blood Pressure Position [Right Arm] Lying Pulse Oximetry 96 Oxygen Delivery Method Room Air Sepsis Recent Fever Within 48 Hours Sepsis New/Unexplained Change in Mental Status Sepsis Action Taken by Nursing Laboratory Data 06/06/24 16:28 06/06/24 16:28 Lab Results 06/06/24 06/06/24 06/06/24 Range/Units 16:28 16:33 17:35 WBC 1.89 L (4.8-10.8) K/ul RBC 2.91 L (4.20-5.40) M/uL Hgb 10.2 L (12.0-16.0) g/dl POC Hgb 10.2 L (12.0-16.0) g/dl Hct 30.2 L (37.0-47.0) % POC Hct 30 L (37-47) % MCV 103.8 H (80.0-100.0) fL MCH 35.1 H (25.0-34.0) pg MCHC 33.8 (32.0-36.0) g/dL RDW Std Deviation 64.3 H (36.4-46.3) fL RDW Coeff of Vicky 16.7 H (11.5-14.5) % Plt Count 249 (130-400) K/uL MPV 9.7 (9.4-12.4) fL Immature Gran % (Auto) 1.1 % Neut % (Auto) 56.1 % Lymph % (Auto) 33.3 % [place] % (Auto) 9.0 % Eos % (Auto) 0.0 % Baso % (Auto) 0.5 % Neut # (Auto) 1.06 L (1.40-6.50) K/uL Lymph # (Auto) 0.63 L (1.20-3.40) K/uL [place] # (Auto) 0.17 (0.11-0.59) K/uL Eos # (Auto) 0.00 (0.00-0.50) K/uL Baso # (Auto) 0.01 (0.00-0.20) K/uL Immature Gran # (Auto) 0.02 (0.01-0.20) K/uL Toxic Granulation 1+ Dohle Bodies 2+ Echinocytes 3+ PT 18.4 H (9.0-12.0) Seconds INR 1.8 H (0.9-1.1) APTT 28 (21-31) Seconds PTT Ratio 1.0 VBG pH 7.42 H (7.36-7.41) VBG pCO2 23 L (38-50) mmHg VBG pO2 133 mmHg VBG HCO3 15 mmol/L VBG O2 Saturation 98.5 % VBG Base Excess -7.6 mEq/L POC Sodium 129 L (135-144) mmol/L Sodium 129 L (136-145) mmol/L POC Potassium 3.6 (3.3-5.0) mmol/L Potassium 3.8 (3.5-5.1) mmol/L POC Chloride 101 (101-112) mmol/L Chloride 99 (98-107) mmol/L Carbon Dioxide 15 L (21-32) mmol/L POC Total CO2 16 L (24-31) mmol/L Anion Gap 15 H (3-11) POC Anion Gap 17.0 (16-25) mmol/L POC BUN 67 H (7-18) mg/dl BUN 76 H (6-23) mg/dl Creatinine 2.36 H (0.6-1.2) mg/dl POC Creatinine 2.5 H (0.6-1.3) mg/dl Est Cr Clr Drug Dosing 20.7 ml/min Est GFR ( Amer) 22.6 ml/min Est GFR (Non-Af Amer) 19.5 ml/min BUN/Creatinine Ratio 32.2 H (10-20) Glucose 288 H (70-99(Fasting)) mg/dl POC Glucose (other) 284 H (70-99) mg/dl Lactate 4.4 H* (0.4-2.0) mmol/L Calcium 8.3 L (8.6-10.3) mg/dl POC Ioniz Calcium Flaco 1.07 L (1.12-1.32) mmol/l Magnesium 2.3 (1.7-2.4) mg/dl Total Bilirubin 0.4 (0.2-1.0) mg/dl AST 22 (13-39) U/L ALT 32 (7-52) U/L Alkaline Phosphatase 39 (34-104) U/L Troponin I High Sens 11.9 (0-14) pg/ml Total Protein 5.2 L (6.0-8.3) gm/dl Albumin 2.9 L (3.4-5.0) gm/dl Globulin 2.3 L (2.5-4.0) gm/dl Albumin/Globulin Ratio 1.3 (0.9-2) Procalcitonin 7.47 H (0-0.5) ng/ml Administered Medications Discontinued Medications Sodium Chloride (Nss) 500 mls @ 999 mls/hr IV .Q31M STA Stop: 06/06/24 15:08 Last Infusion: 06/06/24 17:19 Dose: Infused Documented By: Admin: 06/06/24 15:37 Dose: 999 mls/hr Documented By: USMAN Cefepime HCl (Maxipime) 2,000 mg in 20 mls @ 5 mls/min IV NOW STA; Protocol Stop: 06/06/24 16:41 Last Admin: 06/06/24 17:25 Dose: 5 mls/min Documented By: ANKIT Parenteral Electrolytes (Plasma-Lyte A Ph 7.4) 1,000 mls @ 999 mls/hr IV .Q1H1M ONE Stop: 06/06/24 17:38 Last Admin: 06/06/24 17:30 Dose: 999 mls/hr Documented By: ANKIT Imaging Data Radiologist's Impression: Chest X-Ray 06/06/24 14:38 XR chest 1V portable CLINICAL HISTORY: Sepsis. COMPARISON STUDY: No previous studies for comparison. FINDINGS: A right internal jugular [id number] is in place. Lung volumes are normal. Lungs are clear. There is no pneumothorax or pleural effusion. Cardiac size is normal. Mediastinal contours are normal. There is no evidence for pulmonary edema. IMPRESSION: No acute cardiopulmonary findings. ACT 112: Negative or not required by law. Electronically signed by: Jerel Jones M.D. 06/06/2024 4:51 PM Abdomen/Pelvis CT 06/06/24 16:21 CT abd pelvis wo con CLINICAL HISTORY: worsening abd pain w/ cancer not eating or drinkin TECHNIQUE: Helical axial images of the abdomen and pelvis were obtained. Automated dose lowering techniques and/or adjustment according to patient size were utilized for this exam. This exam was performed without intravenous contrast. CT DOSE: 972.47 mGy.cm COMPARISON: Comparison is made to CT abdomen pelvis 12/03/2022 FINDINGS: Lower chest: No acute abnormality. Liver: Unremarkable. No focal lesions are seen. Gallbladder and biliary tree: Postsurgical change is seen with a complex cyst mass remaining in the gallbladder fossa. No biliary seen with a common bile duct stent in place. Pancreas: Unremarkable, no focal lesions. Spleen: Unremarkable. Adrenals: Unremarkable. Kidneys and ureters: Renal cysts are seen. Bladder: Limited evaluation due to underdistention. Reproductive organs: Incidental note is made of calcified fibroid. Bowel: Diverticulosis is seen without evidence of diverticulitis. There is prominence of the cecum with a transition point near the hepatic flexure. Of note, there is no clear fat plane separation between the hepatic flexure and the gallbladder fossa density. There is also prominence of multiple loops of terminal ileum measuring up to 36 mm. Gastroenteric drain is seen. Lymph nodes Retroperitoneal: Unremarkable. Pelvic: Unremarkable. Mesenteric: Unremarkable. Peritoneum: Normal. Vessels: Unremarkable. Abdominal wall: Unremarkable. Bones: Degenerative changes in the visualized spine. IMPRESSION: 1. There is enlargement of the cecum and terminal ileum with normal caliber bowel at the transverse and descending colon. There is likely involvement of the hepatic flexure with the gallbladder mass. 2. Decreased size of complex mass in the gallbladder. Interval placement of gastroenteric drain and biliary stents. 3. Additional findings as above. ACT 112: Negative or not required by law. Electronically signed by: Benji Fernandez M.D. 06/06/2024 5:32 PM Discharge Plan Visit Data Chief Complaint: Referred by Doctor Stated Complaint: CHEMO, LETHARGIC, DEHYDRATED ED Provider: Nehemiah Rubin Discharge Problem: Acute hypotension, EUGENE (acute kidney injury), Gallbladder mass, Elevated lactic acid level, Acute dehydration, Acute hyponatremia Forms Stand Alone Forms: [facility] [employer] Prescriptions Prescriptions: No Action calcium carbonate-vitamin D3 [Calcium 600 with Vitamin D3] 600 mg-12.5 mcg (500 unit) capsule 1 cap PO DAILY clonazepam 0.5 mg tablet 0.5 mg PO HS PRN (Reason: anxiety or sleep) atenolol 25 mg tablet 12.5 mg PO DAILY sodium chloride 5 % Drops 1 drp OPHTHALMIC (EYE) BID PRN (Reason: restless leg) magnesium 200 mg Tablet 400 mg PO 2XD megestrol 625 mg/5 mL (125 mg/mL) suspension 2 ml PO DAILY prochlorperazine maleate 10 mg tablet 10 mg PO Q6H PRN (Reason: Nausea) Eliquis 5 mg tablet 5 mg PO BID Referrals Referrals: Kristine Kan DO [Primary Care Provider] -
[2024-06-06 16:47] LABS: iSTAT Creatinine 2.5 mg/dl (0.6-1.3); iSTAT Hemoglobin 10.2 g/dl (12.0-16.0); iSTAT Ionized Calcium 1.07 mmol/l (1.12-1.32); iSTAT Potassium 3.6 mmol/L (3.3-5.0)
--- NOTE | 2024-06-06 16:53 | XRay Report ---
XR chest 1V portable CLINICAL HISTORY: Sepsis. COMPARISON STUDY: No previous studies for comparison. FINDINGS: A right internal jugular [id number] is in place. Lung volumes are normal. Lungs are jr r. There is no pneumothorax or pleural effusion. Cardiac size is normal. Mediastinal contours are nor mal. There is no evidence for pulmonary edema. IMPRESSION: No acute cardiopulmonary findings. ACT 112: Negative or not required by law. Electronically signed by: Jerel Jones M.D. 06/06/2024 4:51 PM
[2024-06-06 17:20] LABS: Hematocrit (blood only) 30.2 % (37.0-47.0); Hemoglobin 10.2 g/dl (12.0-16.0); Mean Corpuscular Hemoglobin 35.1 pg (25.0-34.0); Mean Corpuscular Hgb Conc 33.8 g/dL (32.0-36.0); Mean Corpuscular Volume 103.8 fL (80.0-100.0); Mean Platelet Volume 9.7 fL (9.4-12.4); Platelet Count 249 K/uL (130-400); RDW Coefficient of Variation 16.7 % (11.5-14.5); RDW Standard Deviation 64.3 fL (36.4-46.3); Red Blood Count 2.91 M/uL (4.20-5.40); White Blood Count 1.89 K/ul (4.8-10.8)
[2024-06-06] MEDS: CEFEPIME 2,000 MG/20 ML VIAL IV STA (17:25)
[2024-06-06] MEDS: PLASMA-LYTE A 1,000 ML IV ONE (17:30)
--- NOTE | 2024-06-06 17:34 | CT Scan Report ---
CT abd pelvis wo con CLINICAL HISTORY: worsening abd pain w/ cancer not eating or drinkin TECHNIQUE: Helical axial images of the abdomen and pelvis were obtained. Automated dose lowering tech niques and/or adjustment according to patient size were utilized for this exam. This exam was perfor med without intravenous contrast. CT DOSE: 972.47 mGy.cm COMPARISON: Comparison is made to CT abdomen pelvis 12/03/2022 FINDINGS: Lower chest: No acute abnormality. Liver: Unremarkable. No focal lesions are seen. Gallbladder and biliary tree: Postsurgical change is seen with a complex cyst mass remaining in the g allbladder fossa. No biliary seen with a common bile duct stent in place. Pancreas: Unremarkable, no focal lesions. Spleen: Unremarkable. Adrenals: Unremarkable. Kidneys and ureters: Renal cysts are seen. Bladder: Limited evaluation due to underdistention. Reproductive organs: Incidental note is made of calcified fibroid. Bowel: Diverticulosis is seen without evidence of diverticulitis. There is prominence of the cecum wi th a transition point near the hepatic flexure. Of note, there is no clear fat plane separation betwe en the hepatic flexure and the gallbladder fossa density. There is also prominence of multiple loops of terminal ileum measuring up to 36 mm. Gastroenteric drain is seen. Lymph nodes Retroperitoneal: Unremarkable. Pelvic: Unremarkable. Mesenteric: Unremarkable. Peritoneum: Normal. Vessels: Unremarkable. Abdominal wall: Unremarkable. Bones: Degenerative changes in the visualized spine. IMPRESSION: 1. There is enlargement of the cecum and terminal ileum with normal caliber bowel at the transverse and descending colon. There is likely involvement of the hepatic flexure with the gallbladder mass. 2. Decreased size of complex mass in the gallbladder. Interval placement of gastroenteric drain and biliary stents. 3. Additional findings as above. ACT 112: Negative or not required by law. Electronically signed by: Benji Fernandez M.D. 06/06/2024 5:32 PM
[2024-06-06 17:38] LABS: Albumin Globulin Ratio 1.3 (0.9-2); Albumin Level 2.9 gm/dl (3.4-5.0); BUN Creatinine Ratio 32.2 (10-20); Bilirubin,Total 0.4 mg/dl (0.2-1.0); Calcium 8.3 mg/dl (8.6-10.3); Creatinine Clr Calc Pharmacy 20.7 ml/min; Est GFR (African American) 22.6 ml/min; Est GFR (Non-African American) 19.5 ml/min; Globulin 2.3 gm/dl (2.5-4.0); Magnesium 2.3 mg/dl (1.7-2.4); Potassium 3.8 mmol/L (3.5-5.1); Total Protein 5.2 gm/dl (6.0-8.3)
[2024-06-06 17:44] LABS: Troponin I High Sensitivity 11.9 pg/ml (0-14)
[2024-06-06 17:46] LABS: Basophils # (auto) 0.01 K/uL (0.00-0.20); Basophils % (auto) 0.5 %; Dohle Bodies 2+; Echinocytes 3+; Immature Granulocytes # (auto) 0.02 K/uL (0.01-0.20); Immature Granulocytes % (auto) 1.1 %; Lymphocytes # (auto) 0.63 K/uL (1.20-3.40); Lymphocytes % (auto) 33.3 %; Monocytes # (auto) 0.17 K/uL (0.11-0.59); Neutrophils # (auto) 1.06 K/uL (1.40-6.50); Neutrophils % (auto) 56.1 %; Toxic Granulation 1+
[2024-06-06 17:49] LABS: Base Excess VBG -7.6 mEq/L; HCO3 VBG 15 mmol/L; Oxygen Saturation VBG 98.5 %; PCO2 VBG 23 mmHg (38-50); PO2 VBG 133 mmHg; pH VBG 7.42 (7.36-7.41)
[2024-06-06 17:55] LABS: INR 1.8 (0.9-1.1); Partial Thromboplastin Time 28 Seconds (21-31); Prothrombin Time 18.4 Seconds (9.0-12.0)
--- NOTE | 2024-06-06 18:31 | History & Physical Report ---
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 EUGENE superimposed on CKD 2/2 decreased oral intake/possible infection following chemo tx 05/30 Creatinine 2.36 this evening (previously 1.7 eight days ago) Given 2L NSS in ED, continue maintenance fluids overnight Repeat BMP in AM Lactic acidosis Possible sepsis Lactate initially 4.4 ->normalized to 2.0 with fluids Continue empiric Cefepime, vanco Follow blood culture, daily CBC Generalized weakness Hyponatremia In setting of poor PO intake Na 129, expect improvement with fluids Monitor with daily BMP Adenocarcinoma of gallbladder Last FOLFOX treatment 05/30, follows with Dr. Gross Continue Megace H/o DVT Continue Eliquis Generalized weakness In setting of ongoing FOLFOX treatment, poor PO intake Fall precautions PT/OT evals HTN (hypertension) Continue atenolol History of breast cancer S/p left partial mastectomy, XRT, 5 years of tamoxifen completed in August 2022 Restless legs syndrome (RLS) Clonazepam HS PRN DVT Ppx: Eliquis Code status: FULL PCP: Loreta Dispo: Admit to PCU Patient seen in collaboration with Dr. Salazar. Please see addendum. I spent a total of 75 minutes coordinating, documenting, and providing care for this patient excluding time spent in the performance of separately billed services. 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 Last chemo treatment was 05/30/24, follows with Dr. Gross. Generally feels weaker after chemo but generalized weakness more pronounced this time. Also having decreased appetite and nausea. Intermittent abdominal pain with diarrhea. Has sores near feet but unchanged from previous. No fever, chills, sore throat, chest pain, shortness of breath. Allergies Allergy/AdvReac Type Severity Reaction Status Date / Time latex Allergy Mild Rash Verified 03/02/24 10:30 sulfamethoxazole Allergy Unknown SWELLING Verified 03/02/24 10:30 ON FACE AND LIPS trimethoprim Allergy Unknown SWELLING Verified 03/02/24 10:30 ON FACE AND LIPS metformin AdvReac Unknown mood Verified 03/02/24 10:30 disorder per [facility] record SPICY FOOD Allergy Unknown SWELLING Uncoded 03/02/24 10:30 Home Medications Medication Instructions Recorded Confirmed Type calcium carbonate 600 mg-vitamin 1 cap PO DAILY 04/08/22 06/06/24 History D3 12.5 mcg (500 unit) capsule (Calcium 600 with Vitamin D3) atenolol 25 mg tablet 12.5 mg PO DAILY 12/03/22 06/06/24 History clonazepam 0.5 mg tablet 0.5 mg PO HS PRN anxiety or sleep 12/03/22 06/06/24 History magnesium 200 mg tablet 400 mg PO 2XD 06/29/23 06/06/24 History apixaban 5 mg tablet (Eliquis) 5 mg PO BID 06/06/24 06/06/24 History megestrol 625 mg/5 mL (125 mg/mL) 2 ml PO DAILY 06/06/24 06/06/24 History oral suspension prochlorperazine maleate 10 mg 10 mg PO Q6H PRN Nausea 06/06/24 06/06/24 History tablet Past Med/Surg History Problem List (Updated 06/06/24 @ 21:03 by Ronel Masters PA-C) Acute kidney injury superimposed on CKD Acute hyponatremia (Acute) Acute dehydration (Acute) Elevated lactic acid level (Acute) Medical History (Updated 06/06/24 @ 21:03 by Ronel Masters PA-C) History of DVT (deep vein thrombosis) Adenocarcinoma of gallbladder Restless legs syndrome (RLS) Anxiety 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 Physical Exam Physical Exam: Please see Dr. Salazar's addendum for physical exam. Results & Data Results & Data Vital Signs (Past 12 Hours) Vital Signs Temp Pulse Pulse Resp BP BP Pulse Ox 06/06/24 17:31 59 L 06/06/24 16:56 90 20 100 06/06/24 16:07 36.5 C 93 H 29 H 103/85 99 06/06/24 14:33 35.6 C L 100 H 20 95/74 L 98 O2 Del Method 06/06/24 17:31 06/06/24 16:56 Room Air 06/06/24 16:07 Room Air 06/06/24 14:33 Room Air Laboratory Results Short CBC 06/06/24 Range/Units 16:28 WBC 1.89 L (4.8-10.8) K/ul Hgb 10.2 L (12.0-16.0) g/dl Hct 30.2 L (37.0-47.0) % Plt Count 249 (130-400) K/uL BMP 06/06/24 16:28 Sodium 129 L Potassium 3.8 Chloride 99 Carbon Dioxide 15 L BUN 76 H Creatinine 2.36 H Glucose 288 H Calcium 8.3 L Liver Function 06/06/24 Range/Units 16:28 Total Bilirubin 0.4 (0.2-1.0) mg/dl AST 22 (13-39) U/L ALT 32 (7-52) U/L Alkaline Phosphatase 39 (34-104) U/L Albumin 2.9 L (3.4-5.0) gm/dl Diagnostic Findings Chest X-Ray 06/06/24 14:38 XR chest 1V portable CLINICAL HISTORY: Sepsis. COMPARISON STUDY: No previous studies for comparison. FINDINGS: A right internal jugular [id number] is in place. Lung volumes are normal. Lungs are clear. There is no pneumothorax or pleural effusion. Cardiac size is normal. Mediastinal contours are normal. There is no evidence for pu lmonary edema. IMPRESSION: No acute cardiopulmonary findings. ACT 112: Negative or not required by law. Electronically signed by: Jerel Jones M.D. 06/06/2024 4:51 PM Abdomen/Pelvis CT 06/06/24 16:21 CT abd pelvis wo con CLINICAL HISTORY: worsening abd pain w/ cancer not eating or drinkin TECHNIQUE: Helical axial images of the abdomen and pelvis were obtained. Automated dose lowering techniques and/or adjustment according to patient size were utilized for this exam. This exam was performed without intravenous contrast. CT DOSE: 972.47 mGy.cm COMPARISON: Comparison is made to CT abdomen pelvis 12/03/2022 FINDINGS: Lower chest: No acute abnormality. Liver: Unremarkable. No focal lesions are seen. Gallbladder and biliary tree: Postsurgical change is seen with a complex cyst mass remaining in the gallbladder fossa. No biliary seen with a common bile duct stent in place. Pancreas: Unremarkable, no focal lesions. Spleen: Unremarkable. Adrenals: Unremarkable. Kidneys and ureters: Renal cysts are seen. Bladder: Limited evaluation due to underdistention. Reproductive organs: Incidental note is made of calcified fibroid. Bowel: Diverticulosis is seen without evidence of diverticulitis. There is prominence of the cecum with a transition point near the hepatic flexure. Of note, there is no clear fat plane separation between the hepatic flexure and the gallbladder fossa density. There is also prominence of multiple loops of terminal ileum measuring up to 36 mm. Gastroenteric drain is seen. Lymph nodes Retroperitoneal: Unremarkable. Pelvic: Unremarkable. Mesenteric: Unremarkable. Peritoneum: Normal. Vessels: Unremarkable. Abdominal wall: Unremarkable. Bones: Degenerative changes in the visualized spine. IMPRESSION: 1. There is enlargement of the cecum and terminal ileum with normal caliber bowel at the transverse and descending colon. There is likely involvement of the hepatic flexure with the gallbladder mass. 2. Decreased size of complex mass in the gallbladder. Interval placement of gastroenteric drain and biliary stents. 3. Additional findings as above. ACT 112: Negative or not required by law. Electronically signed by: Benji Fernandez M.D. 06/06/2024 5:32 PM Supervising Physician Co-Signing Physician Notes Patient seen and examined independently. Discussed with over provider. 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 Patient presents with generalized weakness, decreased appetite since last few days. Her last chemotherapy was on 05/30; reports feeling weak for 2 days usually after completion of chemotherapy. However, her weakness has persisted. She denies any fever, chills, sore throat, chest pain, shortness of breath or abdominal pain. On physical examination; Constitutional: Awake, alert oriented x 3. Respiratory: Bilateral vesicular breath sound Cardiovascular: RRR, no murmur, no edema Vessels: no JVD or carotid bruit Chest: Port in place on right chest; no surrounding erythema or drainage. Abdomen: Soft nontender. Musculoskeletal: no cyanosis or clubbing, extremities motor strength 5/5 Skin: no rashes, warm and dry normal turgor Neurologic: PERRL, EOMI, accommodation nl, no face palsy, no dysarthria CN's II- XI intact bilaterally and moves all extremities Psychiatric: A+Ox3, euthymic affect Assessment/plan Possible sepsis Acute kidney injury Hyponatremia Likely due to decreased oral intake/possible infection Creatinine was 1.7 eight days ago; presents with creatinine of 2.36. Serum sodium of 129, lactate elevated to 4.4 Will start her on IV fluids after she received bolus in the ED. Joyner in place for strict DHARA's Started on empiric antibiotic with Vanco and Zosyn. Will follow-up on blood culture Monitor CBC Will continue other home meds I have reviewed the advanced practitioner's documentation, and I agree with, and take responsibility for the plan of care I spent a total of 30 minutes coordinating, documenting, and providing care for this patient excluding time spent in the performance of separately billed services. All of the aforementioned completed while collaborating with the ass igned advanced practitioner for a full treatment plan
[2024-06-06] MEDS ORDERED: VANCOMYCIN CONSULT ACTIVE PRN (18:44)
[2024-06-06] MEDS: VANCOMYCIN HCL 1,500 MG in SODIUM CHLORIDE 0.9% 500 ML IV ONE (19:22)
[2024-06-06] MEDS: SODIUM CHLORIDE 0.9% 1,000 ML IV SCH (19:24)
[2024-06-06 19:30] LABS: Appearance Urine Cloudy (Clear); Bacteria Urine Automated None Seen (None Seen); Bilirubin Urine Negative (Negative); Blood Urine Negative (Negative); Color Urine Yellow; Epithelial Cell Urine Auto 0-2 /hpf (0-2); Glucose Urine UA Negative (Negative); Ketones Urine Negative (Negative); Leukocyte Esterase Urine Negative (Negative); Nitrite Urine Negative (Negative); Protein Urine 1+ (Negative); RBC Urine Automated 0-2 /hpf (0-2); Specific Gravity Urine 1.026 (1.000-1.030); Urobilinogen Urine Negative (Negative); WBC Urine Automated 0-5 /hpf (0-5)
[2024-06-06] MEDS ORDERED: ONDANSETRON INJ 2 MG/ML 2 ML VIAL IV PRN (21:32)
[2024-06-06] MEDS ORDERED: clonazePAM 0.5 MG TAB PO PRN (21:32)
[2024-06-06] MEDS ORDERED: POLYETHYLENE (MIRALAX) 17 GM PACK PO PRN (21:32)
[2024-06-06] MEDS ORDERED: CEFEPIME 2,000 MG in SYRINGE 0 ML IV SCH (21:32)
[2024-06-06] MEDS: MAGNESIUM OXIDE 400 MG TAB PO SCH (22:28)
[2024-06-06] MEDS: APIXABAN 5 MG TABLET PO ONE (22:28)
--- OUTSIDE RECORDS SUMMARY | 2024-06-06 23:32 | External Medical Summary ---
Author Name Unknown Address Unknown Organization [id number][facility] [place] [id number] Laboratory Report Ordering Provider Test Date Status TASHA MANN 05/29/2024 11:12:27 Final Observation Date Value Abnormality Reference (Units ) Status WBC, Total 05/29/2024 11:12:27 3.98 Below low normal 4. 00-10.80 (K/uL) Final RBC 05/29/2024 11:12:27 2.52 3.85-5.15 (M/uL) Final Hemoglobin 05/29/2024 11:12:27 8.7 Below low normal 12 .0-15.3 (g/dL) Final HCT 05/29/2024 11:12:27 28.2 Below low normal 36. 0-45.2 (%) Final MCV 05/29/2024 11:12:27 111.9 81.5-97.5 (fL) Final MCH 05/29/2024 11:12:27 34.5 27.0-34.0 (pg) Final MCHC 05/29/2024 11:12:27 30.9 32.0-36.0 (g/dL) Final RDW 05/29/2024 11:12:27 18.8 11.5-15.5 (%) Final Platelets 05/29/2024 11:12:27 272 140-400 (K /uL) Final MPV 05/29/2024 11:12:27 8.4 6.6-11.1 ( fL) Final Performing Location [facility] [place] [address]
--- OUTSIDE RECORDS SUMMARY | 2024-06-06 23:32 | External Medical Summary ---
Author Name Unknown Address Unknown Organization [id number][facility] [place] [address] Laboratory Report Ordering Provider Test Date Status TASHA MANN 05/29/2024 11:12:27 Final Observation Date Value Abnormality Reference (Units ) Status Nucleated erythrocytes/100 leukocytes [Ratio] in Blood by Automated count 05/29/2024 11:12:27 Final Polychromasia [Presence] in Blood by Light microscopy 05/29/2024 11:12:27 Moderate Abnormal None Seen Final Performing Location [facility] [place] [id number]
--- OUTSIDE RECORDS SUMMARY | 2024-06-06 23:32 | External Medical Summary | Summary of Care ---
Author Name Unknown Organization [facility] Address [address] [place] [address] Phone [phone] Care Team Providers Care Spice Grinder Name Role Phone Kristine Kan Primary Care Provider Encounter Details Date Type Department Care Team (Late st Contact Info) Description 05/27/2024 Orders Only Hematology/Oncology [facility] Jessica [place] [address] [facility] [place] [phone] Hardik Gross MD [address] [facility] [place] [address] Allergies Active Allergy Reactions Criticality Noted Date Comments Latex Rash 06/28/2018 From a dressing Sulfamethoxazole Edema face/lips/tongue High 023 Trimethoprim Edema face/lips/tongue High 12/03/2022 documented as of this encounter (statuses as of 05/27/2024) Medications Medication Sig Dispensed Refills Start Date End Date Status Sodium Chloride (Hypertonic) 5 % Ophthalmic Solution 1 Drop as needed. Active Calcium Carbonate-Vitamin D 600-400 MG-UNIT Oral TabletIndications:I nfiltrating ductal carcinoma of left female breast (HCC) Take 1 Tab by mouth daily. 90 Tab 3 05/07/2021 Active polyethylene glycol 3350 119 gram OR POWD Take 119 g by mouth once. 1/2 capful daily Active Magnesium 200 MG Oral Tablet Take 2 Tablets by mouth in the morning. Pt reports she is taking 400 mg. Active Potassium Chloride Karlene ER 10 MEQ Oral Tablet Extended ReleaseIndications: Carcinoma of gallbladder (HCC) Take 1 Tablet by mouth daily. 30 Tablet 3 07/13/2023 Active Additional Information Patient not taking.Reported on 05/08/2024 Ketoconazole 2 % External Cream Apply to both feet, ankles and between toes twice daily x 4-6 weeks 30 g 2 12/01/2023 Active clonazePAM 0.5 MG Oral Tablet (KlonoPIN)Indicatio ns:Restless leg syndrome,Blephariti s of lower eyelids of both eyes, unspecified type take 1 tablet by mouth UP TO 3 TIMES A DAY NEEDED FOR ANXIETY OR SLEEP 45 Tablet 1 12/21/2023 Active Ondansetron HCl 8 MG Oral TabletIndications:C arcinoma of gall bladder (HCC) Take 1 Tablet by mouth every 8 hours as needed for Nausea. 30 Tablet 2 12/16/2023 Active Prochlorperazine Maleate 10 MG Oral Tablet (Compazine)Indicati ons:Carcinoma of gall bladder (HCC) Take 1 Tablet by mouth every 6 hours as needed for Nausea. 30 Tablet 2 12/16/2023 Active Lidocaine-Prilocain e 2.5-2.5 % External Cream (Emla)Indications:C arcinoma of gallbladder (HCC) APPLY TO SKIN OVER MEDIPORT & COVER 1HR PRIOR TO ACCESSING. 30 g 1 12/16/2023 Active Artificial Tears 0.1-0.3 % Ophthalmic Solution (Dextran 70-Hypromellose) Instill into eye at bedtime. Active Megestrol Acetate 625 MG/5ML Oral SuspensionIndicatio ns:Carcinoma of gallbladder (HCC) Take 4 ml by mouth daily 300 mL 3 01/14/2024 Active Additional Information Patient taking differently: Take 4 ml by mouth daily. 05/08/24 - pt reports she is only taking 2 ml., Reported on 05/08/2024 Apixaban Starter Pack 5 MG Oral Tablet Therapy Pack (Eliquis DVT/PE Starter Pack)Indications:Ac zora 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 of both lower extremities (HCC) 10 mg twice a day by mouth for 7 days, then 5 mg by mouth twice a day. 74 Tablet 03/08/2024 Active Apixaban 5 MG Oral Tablet (Eliquis)Indication s:Acute 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 of both lower extremities (HCC) Take 1 Tablet by mouth in the morning and 1 Tablet before bedtime. Do not start before April 05, 2024. 60 Tablet 5 04/05/2024 Active Ciprofloxacin HCl 500 MG Oral Tablet (Cipro)Indications: Dysuria Take 1 Tablet by mouth in the morning. 7 Tablet 04/14/2024 Active Additional Information Patient not taking.Reported on 05/08/2024 Atenolol 25 MG Oral Tablet (Tenormin)Indicatio ns:HTN, goal below 140/90 Take 0.5 Tablets by mouth in the morning. 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 09/02/2023 Chronic kidney disease, stage 3b 08/16/2023 Overview: Per CKD protocol B12 deficiency 06/18/2023 Protein-calorie malnutrition 03/24/2023 Hypokalemia 03/10/2023 Dehydration 03/10/2023 Recurrent major depressive disorder 02/03/2023 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 Encounter for antineoplastic chemotherapy 2022 Hyperbilirubinemia 12/04/2022 Gallbladder mass 12/04/2022 Gastroesophageal reflux dise ase with esophagitis without hemorrhage 12/29/2021 Prediabetes 06/12/2019 Overview: Per Prediabetes protocol Invasive ductal carcinoma of breast, female 04/03 Cancer Staging:Clinical stage from 06/02/2017:Stage IA(T1c, N0, M0) - Signed by Rigoberto Gonzalez MD on 06/02/2017 Hypothyroidism 07/28/2011 HTN, goal below 140/90 08/10/2007 Restless leg syndrome 08/14/2005 ADVANCE DIRECTIVE INFORMATION 07/01/2005 Overview: No, Advance Directive brochure offered , patient declined. 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 Overview: ICD-10 update of inactive term documented as of this encounter (statuses as of 05/27/2024) Resolved Problems Problem Noted Date Diagnosed Date Resolved Date Chronic kidney disease, stage 3a 07/12/2023 08/19/2023 Overview: Per CKD protocol Primary open-angle glaucoma, bilateral, mild stage 06/18/2020 01/13/2021 Lump or mass in breast 02/19/201708/20 Abnormal mammogram 02/15/2017 7 HTN, goal to be determined 07/28/2011 0 10/10/2013 HTN, goal below 140/90 04/02/200905/26 ADJ DISORDER W/DEPRES MOOD 10/26/2006 0 06/08/2019 Menopause 10/04/1993 07/05/2018 Uterine prolapse 07/05/2018 documented as of this encounter (statuses as of 05/27/2024) Immunizations Name Administration Dates Next Due COVID-19 mRNA, LNP-s, No Pre serve, 2-Dose Series (Moderna) 12/07/2020,12/01/2020,11/09/2020 COVID-19, MRNA-LNP, 23-24, P F, 50 MCG/0.5 mL, 12 YRS AND ABOVE, IM (MODERNA-Spikevax) 11/08/2023 COVID-19, mRNA, LNP-s, PF, B ooster, 100mcg/0.5mg (Moderna) 01/06/2022,08/11/2021 Covid-19, Mrna, Lnp-s, Pf, B ivalent, 30 Mcg, IM, 12 yrs and above (Pfizer) 07/10/2022 H1N1 2009 Influenza, IM 11/20/2009 Hepatitis B, 20+ yrs 01/04/2008,07/06/2007,06/01 Hepb Rec., 3-antigen, Al(oh3 ), Adult, 10 Mg/ml, Im (PreHevBrio) 01/04/2008,07/06/2007,06/01/2007 PPD 08/24/2007,01/26/2006 Pneumococcal Conjugate Vacc, 13 Valent (Prevnar) 02/04/2017 Pneumococcal Polysaccharide PPV23 (Pneumovax) 07/05/2018 RSV Vac., Bivalent, Perfusio n F, Pf,0.5 Ml (Abrysvo) 08/02/2023 Season Influenza, Cell Cultu re, 18+ Yrs, With Preserv (Flucelvax) 08/09/2013 Season Influenza, Quad, PF, Adjuvanted, 65+ Yrs, IM (FLUAD) 06/30/2023,05/31/2020 Seasonal Influenza, PF, 6 M & above, IM , (FluLaval or Fluzone) 05/18/2021,06/08/2019,06/28/2018,06/05 Seasonal Influenza, Quadriva lent Hd (Fluzone Hd) 07/18/2022 Seasonal Influenza, Quadriva lent, No Preserve, IM 07/01/2016,07/08/2015 07/01/2017 Seasonal Influenza, Split, I IV3, With Preserve, Inj 06/05/2014,06/21/2012,07/23/2011,07/05,06/14/2009,07/18/2008,07/06/20 07 TD, Preservative Free 02/08/2020 TDAP (age 10 and older)(Boostrix) 12/18/2009 TDAP, Age 7 and older, IM (Adacel) 12/18/2009 Varicella Zoster Vaccine (Adult) 08/20/2009 Zoster Vaccine Recombinant (Shingrix) 09/22/2020 ,07/17/2020,08/20/2009 documented as of this encounter Social History Tobacco Use Types Packs/Day Years Used Date Smoking Tobacco: Never Passive Smoke Exposure: Past Smokeless Tobacco: Never Alcohol Use Standard Drinks/Week Comments Not Currently 1 (1 standard drink = 0.6 oz pur e alcohol) social AUDIT-C Answer Date Recorded Q1: How often do you have a drink containing alc ohol? Monthly or less 10/31/2020 Q2: How many drinks containi ng alcohol do you have on a typical day when you are drinking? Not asked 10/31/2020 Q3: How often do you have si x or more drinks on one occasion? Not asked 10/31/2020 PHQ-2 Answer Date Recorded PHQ Adult Total Score 0 11/09/2023 Hunger Vital Sign Answer Date Recorded Within the past 12 months, y ou worried that your food would run out before you got the money to buy more. Never true 11/09/19 24 Within the past 12 months, t he food you bought just didn't last and you didn't have money to get more. Never true 11/09/2023 Childcare Answer Date Recorded Do you feel overwhelmed with taking care of a child, family member or friend? No 11/09/2023 Does your family need help f inding childcare? (Household - for ages 0-17 years) Not on file 11/09/2023 Clothing Answer Date Recorded Have you been unable to get clothing when it was really needed? No 11/09/2023 Is your family able to get c lothes or diapers when needed? (Household - for ages 0-17 years) Not on file 11/09/2023 Personal Safety Answer Date Recorded Do you feel unsafe or have concerns for your saf ety? No 11/09/2023 Do you have concerns for you r family's safety? (Household - for ages 0-17 years) Not on file 11/09/2023 Utilities Answer Date Recorded Do you have trouble paying y our heating, water, or electric bill? No 11/09/2023 Is your family able to pay t he heat, water, or electric bill? (Household - for ages 0-17 years) Not on file 11/09/2023 Does your family have access to good internet? (Household - for ages 0-17 years) Not on file 11/09/2023 Employment Status Answer Date Recorded Are you unemployed or without regular income? No 11/09/2023 Does the household have a re gular source of income? (Household - for ages 0-17 years) Not on file 11/09/2023 Social Connections Answer Date Recorded How often do you feel lonely or isolated from those around you? Sometimes 11/09/2023 Financial Resource Strain Answer Date R ecorded Do you have any trouble payi ng for your medications, or do you think you might in the future? No 11/09/2023 Does your family have troubl e paying for medicine? (Household - for ages 0-17 years) Not on file 11/09/2023 Transportation Needs Answer Date Record ed READ ONLY Do you have troubl e getting a ride to medical visits or work? Never True 11/09/2023 Does your family have a hard time getting a ride to doctors visits? (Household - for ages 0-17 years) Not on file 11/09/2023 Has lack of transportation k ept you from medical appointments, meetings, work, or from getting things needed for daily living? Check all that apply. (Adult - for ages 18 years and over) Not on file 11/09/2023 Do you (or your family) have trouble finding or paying for a ride (transportation)? (Household - for ages 0-17 years) Not on file 11/09/2023 Housing Stability Answer Date Recorded Do you currently live in a s helter or have no steady place to sleep at night? No 11/09/2023 READ ONLY Do you think you a re at risk of becoming homeless? No 11/09/2023 Does your family worry about paying for your home or becoming homeless? (Household - for ages 0-17 years) Not on file 0 11/09/2023 Are you homeless or worried that you might be in the future? (Adult - for ages 18 years and over) Not on file Are you (or your family) vic eless or worried that you might be in the future? (Household - for ages 0-17 years) Not on file Food Insecurity Answer Date Recorded Do you need food for this week? No 11/09/2023 Are you able to get enough f ood for your family? (Household - for ages 0-17 years) Not on file 11/09/2023 Does your family need food t his week? (Household - for ages 0-17 years) Not on file 11/09/2023 Do you always have enough fo od for your family? (Household - for ages 0-17 years) Not on file 11/09/2023 Sex and Gender Information Value Date Recorded Sex Assigned at Female 05/13/2023 11:27 AM EDT Gender Identity Female 05/13/2023 11:27 AM EDT Sexual Orientation Straight 05/13/2023 11 :27 AM EDT Job Start Date Occupation Industry Not on file Not on file Not on file documented as of this encounter Functional Status Functional Status Response Date of Assess ment Are you deaf or do you have serious difficulty h earing? No 12/04/2022 Are you blind or do you have serious difficulty seeing, even when wearing glasses? No 12/04/2022 Do you have serious difficul ty walking or climbing stairs? (5 years old or older) No 12/04/2022 Do you have difficulty dress ing or bathing? (5 years old or older) No 12/04/2022 Because of a physical, menta l, or emotional condition, do you have difficulty doing errands alone such as visiting a doctor s office or shopping? (15 years old or older) No 12/05/19 Cognitive Status Response Date of Assessm ent Because of a physical, menta l, or emotional condition, do you have serious difficulty concentrating, remembering, or making decisions? (5 years old or older) No 12/04/2022 documented as of this encounter Plan of Treatment Upcoming Encounters Date Type Department Care Team (Late st Contact Info) Description 05/29/2024 11:10 AM EDT Laboratory Laboratory [facility] Jessica [place] [address] [place] [phone] Jessica [facility] [place] [address] [facility] [place] [address] 05/30/2024 11:00 AM EDT Hem/Onc Treatment Hematology/Oncology Treatment, [place] [address] [place] [phone] Jessica, Chair 3 Hem Onc Scene [address] [place] [address] 06/08/2024 11:00 AM EDT Imaging Radiology [address], [place] [address] [facility] [place] [address] 06/12/2024 10:30 AM EDT Laboratory Laboratory [facility] [place] [address] [place] [phone] [place] [address] [facility] [place], [place] [address] 06/12/2024 11:00 AM EDT Office Visit Hematology/Oncology [facility] [place] [address] [place] [phone] Hardik Gross MD [address] [facility] [place] [address] 06/13/2024 11:00 AM EDT Hem/Onc Treatment Hematology/Oncology Treatment, [place] [address] [facility] [address] [place], [place] [phone] Jessica, Chair 9 Hem Onc [facility] [address] [facility] [place] [address] 07/10/2024 1:00 PM EDT Office Visit Family Practice [address], [place] [address] [place] [phone] Kristine Kan DO [address] [place] [address] Health Maintenance Due Date Last Done Comments Adult Wellness Visit 2015 COVID-19 Vaccine ( season) 2024 11/08/2023, 07/10/2022, 01/06/2022, Additional history exists Influenza Vaccine (FLU shot) (#1) 2024 06/30/2023, 07/18/2022, 05/18/2021, Additional history exists Albumin/Creatinine Ratio 09/02/2024 09/02/2023, 08/0 10/2021 Depression Monitoring 11/09/2024 11/09/2023 GFR 11/15/2024 05/15/2024, 04/05, 04/25/2024, Additional history exists CKD PHOS USE SMARTSET 88498 11/25/2024 11/25/2023, 0 12/05/2022 HbA1c 11/25/2024 11/25/2023, 11/04, 05/04/2022, Additional history exists CKD HGB USE SMARTSET 16591 05/24/202505/24, 05/24/2024, 05/15/2024, Additional history exists DXA Scan 12/16/2028 12/16/2021, 12/02, 10/08/2014, Additional history exists DTaP,Tdap,and Td Vaccines (4 - Td or Tdap) 02/07/2030 02/08/2020, 12/18/2009, 12/18/2009, Additional history exists Hepatitis B Vaccine Completed 01/04/2008, 07/06/2007, 06/01/2007 Pneumococcal Vaccine: 65+ Years Completed 07/05/2018, 02/04/2017 Zoster Vaccines Completed 09/22/2020, 07/04, 08/20/2009, Additional history exists HPV (Gardasil) Vaccine Aged Out No lo nger eligible based on patient's age to complete this topic MENINGOCOCCAL (MENACTRA/MENVEO) Aged Out No longer eligible based on patient's age to complete this topic documented as of this encounter Medical Devices Implanted Type Area Marketer Device Identifier Shelf Expiration Date Model / Serial / Lot Lens Intraoc 21.5 - [id number] - [id number] Implanted:Qty: 1 on 07/27/2019 by Tristian Araujo MD at OR [facility] Left: Eye [employer] 04/02/2024 [id number] / [id number] / [id number] Lens Intraoc 21.5 - [id number] - [id number] Implanted:Qty: 1 on 08/08/2019 by Tristian Araujo MD at OR [facility] Right: Eye [employer]CH [employer] LOMB 04/02/2024 [id number] / [id number] / [id number] Stent Axios [id number] - [id number] Implanted:Qty: 1 on 12/07/2022 by Tanya Morris MD at OR [facility] N/A: Abdomen [employer] : ENDOSCOPY [id number] 08/25/2023 [id number] / / [id number] Stent Bili Pigtail 7fr 100mm - [id number] Implanted:Qty: 1 on 12/07/2022 by Tanya Morris MD at OR [facility] N/A: Abdomen [employer] [id number] 08/03/2025 PBD-1033-0 710 / / [id number] Stent Bili Pigtail 7fr 100mm - [id number] Implanted:Qty: 1 on 12/07/2022 by Tanya Morris MD at OR [facility] N/A: Abdomen [employer] [id number] 08/03/2025 PBD-1033-0 710 / / 2YK Power Port 8fr Sngl Lumen Plas - [id number] Implanted:Qty: 1 on 12/29/2022 by Landon Hickman DO at OR [facility] Right: Chest CR BARD : PERIPHERAL VASCULAR [id number] 12/02/2023 [id number] / / [id number] Hanarostent Noncover 10dm 10cm - [id number] Implanted:Qty: 1 on 02/19/2023 by Tanya Morris MD at OR [facility] [employer] [id number] 12/31/2024 SHS-10-100 -180 / / [id number] documented as of this encounter Advance Directives * Full Code (Latest Code Status on File) Date Activated Date Inactivated Comments 12/04/2022 10:10 PM 12/08/2022 3:55 PM This order re flects the patients wishes and were consensually agreed upon. Question Answer Comments Discussion of Advance Directives occurred with: Patient Care Teams Spice Grinder Relationship Specialty Start Date End Date Kristine Kan DO [address] [place] [address] PCP - General Family Medicine 03/16/24 documented as of this encounter
--- OUTSIDE RECORDS SUMMARY | 2024-06-06 23:32 | External Medical Summary | Summary of Care ---
Author Name Unknown Organization [facility] Address [address] [place] [address] Phone [phone] Care Team Providers Care Manufacturing Lab Technician Name Role Phone Kristine Kan Primary Care Provider [phone] Encounter Details Date Type Department Care Team (Late st Contact Info) Description 06/06/2024 Orders Only Hematology/Oncology, [facility] [address] [place] [address] Hardik Gross MD [address] [place] [address] Carcinoma of gallbladder (HCC)* Allergies Active Allergy Reactions Criticality Noted Date Comments Latex Rash 06/28/2018 From a dressing Sulfamethoxazole Edema face/lips/tongue High 023 Trimethoprim Edema face/lips/tongue High 12/03/2022 documented as of this encounter (statuses as of 06/06/2024) Medications Medication Sig Dispensed Refills Start Date [...] by mouth in the morning. 05/08/2024 Active Gabapentin 300 MG Oral Capsule (Neurontin)Indicati ons:Carcinoma of gallbladder (HCC) Take 1 Capsule by mouth in the morning and 1 Capsule before bedtime. 60 Capsule 06/06/2024 Active Hospital, Clinic, or Other Facility Administered Medication Ordered Dose Route Frequency Start Date End Date Status vitamin b-12 (Cyanocobalamin) inj 1,000 mcgIndications:Vitamin B 12 deficiency 1000 mcg IM [id number] 09/02/2023 08/03/2024 Active documented as of this encounter (statuses as of 06/06/2024) Active Problems Problem Noted Date Diagnosed Date [...] as of this encounter (statuses as of 06/06/2024) Resolved Problems Problem Noted Date Diagnosed Date [...] as of this encounter (statuses as of 06/06/2024) Immunizations Name Administration Dates Next Due COVID-19 [...] F, Pf,0.5 Ml (Abrysvo) 08/02/2023 Season Influenza, Quad, PF, Adjuvanted, 65+ Yrs, IM (FLUAD) 06/30/2023,05/31/2020 Seasonal Influenza, MDCK, Tr ivalent, PF, (Flucelvax) 08/09/2013 Seasonal Influenza, PF, 6 M & above, IM , (FluLaval or Fluzone) 05/18/2021,06/08/2019,06/28/2018,06/05 Seasonal Influenza, Quadriva lent Hd (Fluzone Hd) 07/18/2022 Seasonal Influenza, Quadriva lent, No Preserve, IM 07/01/2016,07/08/2015 07/01/2017 Seasonal Influenza, Trivalen t, (IIV3), with Preserv, (Fluzone) 06/05/2014,06/21/2012,07/23/2011,07/05,06/14/2009,07/18/2008,07/06/20 07 TD, Preservative Free 02/08/2020 TDAP [...] Care Team (Late st Contact Info) Description 06/08/2024 11:00 AM EDT Imaging Radiology [address] [place] [address] 06/12/2024 10:30 AM EDT Laboratory Laboratory [facility] [place] [address] [place] [address] [phone] [place] [address] 06/12/2024 11:00 AM EDT Office Visit Hematology/Oncology [facility] [place] [address] [place] [address] [phone] Hardik Gross MD [address] [place] [address] 06/13/2024 1:00 PM EDT Hem/Onc Treatment Hematology/Oncology Treatment, [place] [address] [facility] [place] [phone] Jessica, Chair 7 Hem Onc [facility] [address] [facility] [place] [address] 07/10/2024 1:00 PM EDT Office Visit Family Practice [address], [place] [address] [place] [address] Kristine Kan DO [address] [facility] [place] [address] Health Maintenance Due Date Last Done Comments Adult Wellness Visit 2015 COVID-19 Vaccine ( season) 2024 11/08/2023, 07/10/2022, 01/06/2022, Additional history exists Influenza Vaccine (FLU shot) (#1) 2024 06/30/2023, 07/18/2022, 05/18/2021, Additional history exists Albumin/Creatinine Ratio 09/02/2024 09/02/2023, 08/0 10/2021 Depression Monitoring 11/09/2024 11/09/2023 CKD PHOS USE SMARTSET 70078 11/25/2024 11/25/2023, 0 12/05/2022 HbA1c 11/25/2024 11/25/2023, 11/04, 05/04/2022, Additional history exists GFR 11/29/2024 05/29/2024, 05/04, 05/02/2024, Additional history exists CKD HGB USE SMARTSET 65555 05/29/202505/29, 05/29/2024, 05/24/2024, Additional history exists DXA Scan 12/16/2028 12/16/2021, 12/02, 10/08/2014, Additional history exists DTap/Tdap Vaccines (4 - Td or Tdap) 02/07/2030 [...] this encounter Medical Devices Implanted Type Area Outside Plant Technician Device Identifier Shelf Expiration Date Model / Serial / Lot Lens Intraoc 21.5 - [id number] - [id number] Implanted:Qty: 1 on 07/27/2019 by Tristian Araujo MD at OR [facility] Left: Eye [employer]OM[employer] 04/02/2024 [id number] / [id number] / [id number] Lens Intraoc 21.5 - [id number] - [id number] Implanted:Qty: 1 on 08/08/2019 by Tristian Araujo MD at OR [facility] Right: Eye [employer]OM[employer] 04/02/2024 [id number] / [id number] / [id number] Stent Axios 18wmm49ob - [id number] Implanted:Qty: 1 on 12/07/2022 by Tanya Morris MD at OR [facility] N/A: Abdomen [employer] : ENDOSCOPY [id number] 08/25/2023 [id number] / / [id number] Stent Bili Pigtail 7fr 100mm - [id number] Implanted:Qty: 1 on 12/07/2022 by aTnya Morris MD at OR [facility] N/A: Abdomen [employer] [id number] 08/03/2025 PBD-1033-0 710 / / 2YK Stent Bili Pigtail 7fr 100mm - [id number] Implanted:Qty: 1 on 12/07/2022 by Tanya Morris MD at OR [facility] N/A: Abdomen [employer] [id number] 08/03/2025 PBD-1033-0 710 / / 2YK Power Port 8fr Sngl Lumen Plas - [id number] Implanted:Qty: 1 on 12/29/2022 by Landon Hickman DO at OR [facility] Right: Chest CR BARD : PERIPHERAL VASCULAR [id number] 12/02/2023 [id number] / / [id number] Hanarostent Noncover 10dm 10cm - [id number] Implanted:Qty: 1 on 02/19/2023 by Tanya Morris MD at OR [facility] [employer] [id number] 12/31/2024 [facility]-10-100 -180 / / [id number] documented as of this encounter Visit Diagnoses Diagnosis Carcinoma of gallbladder (HCC)- Primary Malignant neoplasm of gallbladder documented in this encounter Advance Directives * Full Code (Latest Code Status on File) Date Activated Date Inactivated Comments 12/04/2022 10:10 PM 12/08/2022 3:55 PM This order re flects the patients wishes and were consensually agreed upon. Question Answer Comments Discussion of Advance Directives occurred with: Patient Care Teams Manufacturing Lab Technician Relationship Specialty Start Date End Date Kristine Kan DO [address] [place] [address] PCP - General Family Medicine 03/16/24 documented as of this encounter
--- OUTSIDE RECORDS SUMMARY | 2024-06-06 23:32 | External Medical Summary | Summary of Care ---
Author Name Unknown Organization [facility] Address [address] [place] [address] Phone [phone] Care Team Providers Care Customer Relations Advisor Name Role Phone Kristine Kan Primary Care Provider + [phone] Reason for Visit * Reason Comments Procedure Pump disconnect * Episode Based Medications (Routine) - Authorized Specialty Diagnoses / Procedures Referred By Marcela johansen Referred To Contact Diagnoses Carcinoma of gallbladder (HCC) Encounter for antineoplastic chemotherapy Procedures CO LEUCOVORIN CALCIUM INJECTION CO PALONOSETRON HCL CO FLUOROURACIL INJECTION CO OXALIPLATIN Hardik Gross MD 200 [place] [address] Anc Hem/Onc [address] [address] Referral ID Status Reason Start Date Expiration Date V isits Requested Visits Authorized [id number] Authorized 12/14/2023 12/13/2024 999 999 Encounter Details Date Type Department Care Team (Latest Contact Info) Description 06/01/2024 11:00 AM EDT Immunization/ Injection Hematology/Oncology Treatment, [address] [address] Jessica, Chair 6 Hem Onc [address] [place] [address] Carcinoma of gallbladder (HCC)*; Encounter for antineoplastic chemotherapy Allergies Active Allergy Reactions Criticality Noted Date Comments Latex Rash 06/28/2018 From a dressing Sulfamethoxazole Edema face/lips/tongue High 023 Trimethoprim Edema face/lips/tongue High 12/03/2022 documented as of this encounter (statuses as of 06/01/2024) Medications Medication Sig Dispensed Refills Start Date End Date Status Sodium Chloride (Hypertonic) 5 % Ophthalmic Solution 1 Drop as needed. Active Calcium Carbonate-Vitamin D 600-400 MG-UNIT Oral TabletIndications:I nfiltrating ductal carcinoma of left female breast (HCC) Take 1 Tab by mouth daily. 90 Tab 3 05/07/2021 Active polyethylene glycol 3350 119 gram OR POWD Take 119 g by mouth once. / capful daily Active Magnesium 200 MG Oral [...] Tablet Therapy Pack (Eliquis DVT/PE Starter Pack)Indications:Ac [place] 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 [...] mcgIndications:Vitamin B 12 deficiency 1000 mcg IM [id number] 09/02/2023 08/03/2024 Active documented as of this encounter (statuses as of 06/01/2024) Active Problems Problem Noted Date Diagnosed Date [...] as of this encounter (statuses as of 06/01/2024) Resolved Problems Problem Noted Date Diagnosed Date [...] as of this encounter (statuses as of 06/01/2024) Immunizations Name Administration Dates Next Due COVID-19 [...] No 12/04/2022 documented as of this encounter Nursing Notes * Vanessa Kang, RN - 06/01/2024 3:24 PM EDT Chair 4. Patient here for pump disconnect. 5-FU pump infusion complete. Reports mild nausea, takingtums. Reports effective. Encouraged to take zofran PRN. Patient and spouse voice concerns about increased neuropathy. Telephone encounter to Dr. Gross. Sweetie flushed without difficulty. Patient discharged in stable condition. documented in this encounter Plan of Treatment Upcoming Encounters Date Type Department Care Team (Late st Contact Info) Description 06/08/2024 11:00 AM EDT Imaging Radiology [address], [place] [address] [place] [address] 06/12/2024 10:30 AM EDT Laboratory Laboratory [facility] [place] [address] [place] [phone] Jessica Lab [facility] 200 [facility] [place] [address] 06/12/2024 11:00 AM EDT Office Visit Hematology/Oncology [facility] [place] [address] [place] [phone] Hardik Gross MD [address] [place] [address] 06/13/2024 1:00 PM EDT Hem/Onc Treatment Hematology/Oncology Treatment, [place] [address] [place] [phone] Jessica, Chair 7 Hem Onc [facility] 200 [facility] [place] [address] 07/10/2024 1:00 PM EDT Office Visit Family Practice [address], [place] 293 [facility] [address] Kristine Kan DO 293 [facility], [place] [address] Health Maintenance Due Date Last Done Comments Adult Wellness Visit 2015 COVID-19 Vaccine ( season) 2024 11/08/2023, 07/10/2022, 01/06/2022, Additional history exists Influenza Vaccine (FLU shot) (#1) 2024 06/30/2023, 07/18/2022, 05/18/2021, Additional history exists Albumin/Creatinine Ratio 09/02/2024 09/02/2023, 08/0 10/2021 Depression Monitoring 11/09/2024 11/09/2023 CKD PHOS USE SMARTSET 31506 11/25/2024 11/25/2023, 0 12/05/2022 HbA1c 11/25/2024 11/25/2023, 11/04, 05/04/2022, Additional history exists GFR 11/29/2024 05/29/2024, 05/04, 05/02/2024, Additional history exists CKD HGB USE SMARTSET 73237 05/29/202505/29, 05/29/2024, 05/24/2024, Additional history exists DXA [...] this encounter Medical Devices Implanted Type Area Beauty Therapist Device Identifier Shelf Expiration Date Model / Serial / Lot Lens Intraoc 21.5 - [id number] - [id number] Implanted:Qty: 1 on 07/27/2019 by Tristian Araujo MD at OR [facility] Left: Eye BAUSCH & LOMB 04/02/2024 [id number] / [id number] / [id number] Lens Intraoc 21.5 - [id number] - [id number] Implanted:Qty: 1 on 08/08/2019 by Tristian Araujo MD at OR [facility] Right: Eye BAUSCH & LOMB 04/02/2024 [id number] / [id number] / [id number] Stent Axios [id number] - [id number] Implanted:Qty: 1 on 12/07/2022 by Tanya Morris MD at OR [facility] N/A: Abdomen [employer] : ENDOSCOPY [id number] 08/25/2023 [id number] / / [id number] Stent Bili Pigtail 7fr 100mm - [id number] Implanted:Qty: 1 on 12/07/2022 by Tanya Morris MD at OR [facility] N/A: Abdomen [employer] [id number] 08/03/2025 PBD-1033-0 710 / / [id number] Stent Bili Pigtail 7fr 100mm - [id number] Implanted:Qty: 1 on 12/07/2022 by Tanya Morris MD at OR [facility] N/A: Abdomen [employer] [id number] 08/03/2025 PBD-1033-0 710 / / 2YK Power Port 8fr Sngl Lumen Plas - [id number] Implanted:Qty: 1 on 12/29/2022 by Landon Hickman DO at OR [facility] Right: Chest CR BARD : PERIPHERAL VASCULAR [id number] 12/02/2023 [id number] / / [id number] Hanarostent Noncover 10dm 10cm - [id number] Implanted:Qty: 1 on 02/19/2023 by Tanya Morris MD at OR [facility] [employer] [id number] 12/31/2024 SHS-10-100 -180 / / [id number] documented as of this encounter Visit Diagnoses Diagnosis Carcinoma of gallbladder (HCC)- Primary Malignant neoplasm of gallbladder Encounter for antineoplastic chemotherapy documented in this encounter Administered Medications Active Administered Medications - up to 3 most recent administrations Medication Order MAR Action Action Date Dose Rate Site hEParin 100 UNIT/ML Lock Flush inj 500 Units 500 Units (5 mL), IV Lock, PRN Other, IV Flush, Starting on Karla 06/01/24 at 1141, Until Wed06/02/24 at 1140, For 24 hours, Do not flush if lock, PICC, or central line not in place; IV infusing or unable to flush. Given 06/01/2024 11:47 AM EDT 500 Units sodium chloride 0.9 % flush central line 10 mL 10 mL, IV Push, PRN Other, IV Flush, Starting on Karla 06/01/24 at 1141, Until Wed06/02/24 at 1140, For 24 hours, Do not flush if lock, PICC, or central line not in place; IV infusing or unable to flush. Given 06/01/2024 11:47 AM EDT 10 mL documented in this encounter Advance Directives * Full Code (Latest Code Status on File) Date Activated Date Inactivated Comments 12/04/2022 10:10 PM 12/08/2022 3:55 PM This order re flects the patients wishes and were consensually agreed upon. Question Answer Comments Discussion of Advance Directives occurred with: Patient Care Teams Customer Relations Advisor Relationship Specialty Start Date End Date Kristine Kan DO [address] [place] [address] PCP - General Family Medicine 03/16/24 documented as of this encounter
--- OUTSIDE RECORDS SUMMARY | 2024-06-06 23:32 | External Medical Summary | Summary of Care ---
Author Name Unknown Organization [facility] Address [address] [place] [address] Phone [phone] Care Team Providers Care Television Anchor Name Role Phone Kristine Kan Primary Care Provider + [phone] Reason for Visit * Reason Comments Chemotherapy Leuco/5FU * Episode Based Medications (Routine) - Authorized Specialty Diagnoses / Procedures Referred By Marcela johansen Referred To Contact Diagnoses Carcinoma of gallbladder (HCC) Encounter for antineoplastic chemotherapy Procedures NE LEUCOVORIN CALCIUM INJECTION NE PALONOSETRON HCL NE FLUOROURACIL INJECTION NE OXALIPLATIN Hardik Gross MD [address] [place] [address] [place] [id number] Anc Hem/Onc [address] [address] Referral ID Status Reason Start Date Expiration Date V isits Requested Visits Authorized [id number] Authorized 12/14/2023 12/13/2024 999 999 Encounter Details Date Type Department Care Team (Latest Contact Info) Description 05/03/2024 2:00 PM EDT Hem/Onc Treatment Hematology/Oncolog y Treatment, [address] [phone] Jessica, Chair 11 Hem Onc [address] [place] [id number] Carcinoma of gallbladder (HCC)*; Encounter for antineoplastic chemotherapy Allergies Active Allergy Reactions Criticality Noted Date Comments Latex Rash 06/28/2018 From a dressing Sulfamethoxazole Edema face/lips/tongue High 023 Trimethoprim Edema face/lips/tongue High 12/03/2022 documented as of this encounter (statuses as of 05/30/2024) Medications Medication Sig Dispensed Refills Start Date End Date Status Sodium Chloride (Hypertonic) 5 % Ophthalmic Solution 1 Drop as needed. Active Calcium Carbonate-Vitamin D 600-400 MG-UNIT Oral TabletIndications :Infiltrating ductal carcinoma of left female breast (HCC) [...] Karlene ER 10 MEQ Oral Tablet Extended ReleaseIndication s:Carcinoma of gallbladder (HCC) Take 1 Tablet by mouth daily. 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 30 Tablet 2 12/16/2023 Active Prochlorperazine Maleate 10 MG Oral Tablet (Compazine)Indica tions:Carcinoma of gall bladder (HCC) Take 1 Tablet by mouth every 6 hours as needed for Nausea. 30 Tablet 2 12/16/2023 Active Lidocaine-Priloca ine 2.5-2.5 % External Cream (Emla)Indications :Carcinoma of gallbladder (HCC) APPLY TO SKIN OVER MEDIPORT & COVER 1HR PRIOR TO ACCESSING. 30 g 1 12/16/2023 Active Artificial Tears 0.1-0.3 % Ophthalmic Solution (Dextran 70-Hypromellose) Instill into eye at bedtime. Active Megestrol Acetate 625 MG/5ML Oral SuspensionIndicat ions:Carcinoma of gallbladder (HCC) Take 4 ml by mouth daily 300 mL 3 01/14/2024 Active Apixaban Starter Pack 5 MG Oral Tablet Therapy Pack (Eliquis DVT/PE Starter Pack)Indications: Acute 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 of both lower extremities (HCC) 10 mg twice a day by mouth for 7 days, then 5 mg by mouth twice a day. 74 Tablet 03/08/2024 Active Apixaban 5 MG Oral Tablet (Eliquis)Indicati ons:Acute 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 of both lower extremities (HCC) Take 1 Tablet by mouth in the morning and 1 Tablet before bedtime. Do not start before April 05, 2024. 60 Tablet 5 04/05/2024 Active Ciprofloxacin HCl 500 MG Oral Tablet (Cipro)Indication s:Dysuria Take 1 Tablet by mouth in the morning. 7 Tablet 04/14/2024 Active Atenolol 25 MG Oral Tablet (Tenormin)Indicat ions:HTN, goal below 140/90 Take 1 Tablet by mouth in the morning. 90 Tablet 3 12/29/2023 05/08/2024 Discontinued Hospital, Clinic, or Other Facility Administered Medication Ordered Dose Route Frequency Start Date End Date Status vitamin b-12 (Cyanocobalamin) inj 1,000 mcgIndications:Vitamin B 12 deficiency 1000 mcg IM [id number] 09/02/2023 08/03/2024 Active documented as of this encounter (statuses as of 05/30/2024) Active Problems Problem Noted Date Diagnosed Date [...] as of this encounter (statuses as of 05/30/2024) Resolved Problems Problem Noted Date Diagnosed Date [...] as of this encounter (statuses as of 05/30/2024) Immunizations Name Administration Dates Next Due COVID-19 [...] Passive Smoke Exposure: Past Smokeless Tobacco: Never Tobacco Cessation:Counseling Given: Not Answered Alcohol Use Standard Drinks/Week Comments Not Currently [...] on file documented as of this encounter Last Filed Vital Signs Vital Sign Reading Time Taken Comments Blood Pressure 111/76 05/03/2024 2:13 PM EDT Pulse 81 05/03/2024 2:13 PM EDT Temperature 36.4 C (97.5 F) 05/03/2024 2:13 PM ED T Respiratory Rate 16 05/03/2024 2:13 PM EDT Oxygen Saturation 97% 05/03/2024 2:13 PM EDT Inhaled Oxygen Concentration - - Weight 73.8 kg (162 lb 12.8 oz) 05/03/2024 2:13 PM EDT Height - - Body Mass Index 27.09 04/04/2024 3:26 PM EDT documented in this encounter Functional Status Functional Status Response [...] as of this encounter Nursing Notes * Any Fournier RN - 05/03/2024 4:07 PM EDT Pt completed treatment without issues. VAD flushed with positive blood return; CADD pump connected/unclamped to initiate 5FU infusion. Goals: Pt will remain free from injury. Possible barriers to meeting goals: pt is a high fall risk Stability of the patient: Moderately stable - low risk of patient condition declining or worsening Summary regarding today's goals: Met: . Pt remained free from injury during treatment today. Discharged in stable condition. * Any Fournier RN - 05/03/2024 2:54 PM EDT VAD accessed; NSS infusing. Safety and Risk for Injury Patient will remain free from injury. Ensure appropriate safety devices are available. Provide and maintain safe environment. * Any Fournier RN - 05/03/2024 2:15 PM EDT Chemotherapy/Immunotherapy agents: 5FU and LEUCOVORIN Consent for chemotherapy drug treatment complete, dated, and signed? yes, date - 12/14/23 Treatment lab parameters met? Yes Has treatment weight changed > than 10%? No Treatment preauthorized? Yes VITALS Filed Vitals: 05/03/24 1413 BP: 111/76 Pulse: 81 Resp: 16 Temp: 36.4 C (97.5 F) TempSrc: Tympanic SpO2: 97% Weight: 73.8 kg (162 lb 12.8 oz) Urine protein: N/A Patient education completed for treatment? Yes Blood transfusion consent signed and complete? NA Return appointment scheduled? Yes Patient had provider visit today? No - If no provider visit must complete Pretreatment Assessment Functional Status: Functional status at today's visit: Capable of only limited selfcare, confined to bed or chair more than 50% of waking hours The drug name, dose, infusion volume, rate and route of administration, expiration date and time, appearance and physical integrity of the drug and rate set on the pump and sequencing of drug administration (as applicable) were verified by me and second sign-in RN. Patient was assessed for symptoms or adverse side effects during treatment. Patient Education: Patient instructed on use of heat and massage functions where applicable. Patient shown how to operate the heat function of the chair and to alert nursing staff if the chair feels too warm. Patient instructed on the risk of potential boyd while using the heat function. * Muriel Damon RN - 05/02/2024 11:15 AM EDT Hgb 8.8, reviewed with za Stone to proceed. documented in this encounter Plan of Treatment Upcoming Encounters Date Type Department Care Team (Late st Contact Info) Description 06/01/2024 11:00 AM EDT Immunization/Injecti on Hematology/Oncology Treatment, [place] [address] [place] [phone] Jessica, Chair 6 Hem Onc [address] [place] [address] 06/08/2024 11:00 AM EDT Imaging Radiology [address], [place] [address] [facility] [place] [address] 06/12/2024 10:30 AM EDT Laboratory Laboratory [facility] [place] [address] [place] [phone] Jessica, Lab [facility] [address] [facility] [place] [address] 06/12/2024 11:00 AM EDT Office Visit Hematology/Oncology [facility] [place] [address] [place] [phone] Hardik Gross MD [address] [place] [address] 06/13/2024 11:00 AM EDT Hem/Onc Treatment Hematology/Oncology Treatment, [place] [address] [place] [phone] Jessica, Chair 9 Hem Onc [address] [place] [address] 07/10/2024 1:00 PM EDT Office Visit Family Practice [address], [place] [address] [place] [address] Kristine Kan DO 293 [facility], [place] [address] Health Maintenance Due Date Last Done Comments Adult Wellness Visit 2015 COVID-19 Vaccine ( season) 2024 11/08/2023, 07/10/2022, 01/06/2022, Additional history exists Influenza Vaccine (FLU shot) (#1) 2024 06/30/2023, 07/18/2022, 05/18/2021, Additional history exists Albumin/Creatinine Ratio 09/02/2024 09/02/2023, 08/0 10/2021 Depression Monitoring 11/09/2024 11/09/2023 CKD PHOS USE SMARTSET 49063 11/25/2024 11/25/2023, 0 12/05/2022 HbA1c 11/25/2024 11/25/2023, 11/04, 05/04/2022, Additional history exists GFR 11/29/2024 05/29/2024, 05/04, 05/02/2024, Additional history exists CKD HGB USE SMARTSET 69550 05/29/202505/29, 05/29/2024, 05/24/2024, Additional history exists DXA [...] this encounter Medical Devices Implanted Type Area Sql Server Consultant Device Identifier Shelf Expiration Date Model / Serial / Lot Lens Intraoc 21.5 - [id number] - [id number] Implanted:Qty: 1 on 07/27/2019 by Tristian Araujo MD at OR [facility] Left: Eye BAUSCH [employer] LOMB 04/02/2024 [id number] / [id number] / [id number] Lens Intraoc 21.5 - [id number] - [id number] Implanted:Qty: 1 on 08/08/2019 by Tristian Araujo MD at OR [facility] Right: Eye BAUSCH & LOMB 04/02/2024 [id number] / [id number] / [id number] Stent Axios [id number] - [id number] Implanted:Qty: 1 on 12/07/2022 by Tanya Morris MD at OR [facility] N/A: Abdomen [employer] : ENDOSCOPY [id number] 08/25/2023 [id number] / / [id number] Stent Bili Pigtail 7fr 100mm - [id number] Implanted:Qty: 1 on 12/07/2022 by Tanya Morris MD at OR [facility] N/A: Abdomen [employer] [id number] 08/03/2025 PBD-1033-0 710 / / 2YK Stent Bili Pigtail 7fr 100mm - [id number] Implanted:Qty: 1 on 12/07/2022 by Tanya Morris MD at OR [facility] N/A: Abdomen [employer] [id number] 08/03/2025 PBD-1033-0 710 / / 2YK Power Port 8fr Sngl Lumen Plas - [id number] Implanted:Qty: 1 on 12/29/2022 by Landon Hickman DO at OR [facility] Right: Chest CR BARD : PERIPHERAL VASCULAR [id number] 12/02/2023 [id number] / / [id number] Hanarostent Noncover 10dm 10cm - [id number] Implanted:Qty: 1 on 02/19/2023 by Tanya Morris MD at OR [facility] [employer] [id number] 12/31/2024 SHS-10-100 -180 / / [id number] documented as of this encounter Visit Diagnoses Diagnosis Carcinoma of gallbladder (HCC)- Primary Malignant neoplasm of gallbladder Encounter for antineoplastic chemotherapy documented in this encounter Administered Medications Inactive Administered Medications - up to 3 most recent administrations Medication Order MAR Action Action Date Dose Rate Site Fluorouracil (5-Fu) 4,475 mg for Home Infusion 4,475 mg (rounded from 4,464 mg = 2,400 mg/m2 1.86 m2 Treatment Plan BSA from Recorded weight), Intravenous, Administer over 46 Hours, Home Infusion Pharmacy to specify base solution and volume., ONCE, 1 dose, On Wed05/03/24 at 1315 Start Infusion 05/03/2024 3:27 PM EDT 4,475 mg 3 mL/hr Fluorouracil (5-Fu) inj 750 mg 750 mg (rounded from 744 mg = 400 mg/m2 1.86 m2 Treatment Plan BSA from Recorded weight), IV Push, ONCE, 1 dose, On Wed05/03/24 at 1500 Given 05/03/2024 3:24 PM EDT 750 mg leucovorin calcium 750 mg in D5W 250 mL INFUSION 750 mg (rounded from 744 mg = 400 mg/m2 1.86 m2 Treatment Plan BSA from Recorded weight), IV Piggyback, ONCE, 1 dose, On Wed05/03/24 at 1500, Administer over 30 Minutes, Before 5-FU Start Infusion 05/03/2024 2:42 PM EDT 750 mg 510 mL/hr NSS infusion FOR HYDRATION Intravenous, at 50 mL/hr Administer over 10 Hours, PRN, Starting on Wed05/03/24 at 1418, Until Wed05/03/24 at 2009 Start Infusion 05/03/2024 2:39 PM EDT 500 mL 50 mL/hr ondansetron (Zofran) tab 8 mg 8 mg, Oral, ONCE, On Wed05/03/24 at 1500, For 1 dose Given 05/03/2024 2:39 PM EDT 8 mg documented in this encounter Advance Directives * Full Code (Latest Code Status on File) Date Activated Date Inactivated Comments 12/04/2022 10:10 PM 12/08/2022 3:55 PM This order re flects the patients wishes and were consensually agreed upon. Question Answer Comments Discussion of Advance Directives occurred with: Patient Care Teams Television Anchor Relationship Specialty Start Date End Date Kristine Kan DO [address] [facility] [place] [address] PCP - General Family Medicine 03/16/24 documented as of this encounter
--- OUTSIDE RECORDS SUMMARY | 2024-06-06 23:32 | External Medical Summary | Summary of Care ---
Author Name Unknown Organization [facility] Address [address] [place] [address] Phone [phone] Care Team Providers Care Nuclear Plant Technical Advisor Name Role Phone Kristine Kan Primary Care Provider + [phone] Reason for Visit * Reason Comments Infusion * Episode Based Medications (Routine) - Authorized Specialty Diagnoses / Procedures Referred By Marcela t Referred To Contact Diagnoses Carcinoma of gallbladder (HCC) Encounter for antineoplastic chemotherapy Procedures SC LEUCOVORIN CALCIUM INJECTION SC PALONOSETRON HCL SC FLUOROURACIL INJECTION SC OXALIPLATIN Hardik Gross MD 200 [facility] [place] [address] Anc Hem/Onc [address] [address] Referral ID Status Reason Start Date Expiration Date V isits Requested Visits Authorized [id number] Authorized 12/14/2023 12/13/2024 [id number] Encounter Details Date Type Department Care Team (Latest Contact Info) Description 05/30/2024 11:00 AM EDT Hem/Onc Treatment Hematology/Oncolog y Treatment, [address] [address] Jessica, Chair 3 Hem Onc [address] [place] [address] Carcinoma of gallbladder (HCC)*; Encounter for antineoplastic [...] mcgIndications:Vitamin B 12 deficiency 1000 mcg IM [id number] 09/02/2023 08/03/2024 Active documented as of this [...] Sign Reading Time Taken Comments Blood Pressure 111/75 05/30/2024 12:24 PM EDT Pulse 70 05/30/2024 12:24 PM EDT Temperature 36.1 C (97 F) 05/30/2024 12: 24 PM EDT Respiratory Rate 16 05/30/2024 12:2 4 PM EDT Oxygen Saturation 98% 05/30/2024 12: 24 PM EDT Inhaled Oxygen Concentration - - Weight 72.9 kg (160 lb 12.8 oz) 024 12:24 PM EDT Height - - Body Mass Index 26.76 05/08/2024 2:31 PM EDT documented in this encounter Functional [...] (15 years old or older) No 12/05/19 23 Cognitive Status Response Date of Assessm ent Because of a physical, menta l, or emotional condition, do you have serious difficulty concentrating, remembering, or making decisions? (5 years old or older) No 12/04/2022 documented as of this encounter Nursing Notes * Lily Butt RN - 05/30/2024 1:02 PM EDT Patient to chair 11 ambulatory Patient denies any complaints or concerns Safety and Risk for Injury Patient will remain free from injury. Ensure appropriate safety devices are available. Provide and maintain safe environment. Patient instructed on use of heat and massage functions where applicable. Patient shown how to operate the heat function of the chair and to alert nursing staff if the chair feels too warm. Patient instructed on the risk of potential boyd while using the heat function. Goals: patient will remain free of injury Possible barriers to meeting goals: ambulation with IV pole, increase risk of fall Stability of the patient: Moderately stable - low risk of patient condition declining or worsening Summary regarding today's goals: Met: patient remained free of injury VAD (Venous Access Device) accessed with #20G 3/4" without difficulty. VAD flushed with 10 ml of NSS easily, positive blood return. VAD remained for home infusion. * Jose Pineda RN - 05/29/2024 12:46 PM EDT Reviewed labs with Dr. Yamile mendenhall to treat tomorrow. documented in this encounter Plan of Treatment Upcoming Encounters Date Type Department Care Team (Late st Contact Info) Description 06/01/2024 11:00 AM EDT Immunization/Injecti on Hematology/Oncology Treatment, [place] [address] [place] [phone] Park, Chair 6 Hem Onc Scen[address] [place] [address] 06/08/2024 11:00 AM EDT Imaging Radiology [address], [place] [address] [place] [address] 06/12/2024 10:30 AM EDT Laboratory Laboratory [facility] [place] [address] [place] [phone] Jessica, Lab Scenery [address] [place] [address] 06/12/2024 11:00 AM EDT Office Visit Hematology/Oncology [facility] [place] [address] [place] [phone] Hardik Gross MD [address] [place] [address] 06/13/2024 1:00 PM EDT Hem/Onc Treatment Hematology/Oncology Treatment, [place] [address] [place] [phone] Jessica, Chair 7 Hem Onc [facility] 200 [facility] [place], [place] [address] 07/10/2024 1:00 PM EDT Office Visit Family Practice [address], [place] 293 [facility], [place] [address] Kristine Kan DO 293 [facility] [place] [address] Health Maintenance Due Date Last Done Comments Adult Wellness Visit 2015 COVID-19 Vaccine ( season) 2024 11/08/2023, 07/10/2022, 01/06/2022, Additional history exists Influenza Vaccine (FLU shot) (#1) 2024 06/30/2023, 07/18/2022, 05/18/2021, Additional history exists Albumin/Creatinine Ratio 09/02/2024 09/02/2023, 08/0 10/2021 Depression Monitoring 11/09/2024 11/09/2023 CKD PHOS USE SMARTSET 76282 11/25/2024 11/25/2023, 0 12/05/2022 HbA1c 11/25/2024 11/25/2023, 11/04, 05/04/2022, Additional history exists GFR 11/29/2024 05/29/2024, 05/04, 05/02/2024, Additional history exists CKD HGB USE SMARTSET 64394 05/29/202505/29, 05/29/2024, 05/24/2024, Additional history exists DXA [...] this encounter Medical Devices Implanted Type Area Color Separation Photographer Device Identifier Shelf Expiration Date Model / Serial / Lot Lens Intraoc 21.5 - [id number] - [id number] Implanted:Qty: 1 on 07/27/2019 by Tristian Araujo MD at OR [facility] Left: Eye BAUSCH & LOMB 04/02/2024 [id number] / [id number] / [id number] Lens Intraoc 21.5 - [id number] - [id number] Implanted:Qty: 1 on 08/08/2019 by Tristian Araujo MD at OR [facility] Right: Eye BAUSCH & LOMB 04/02/2024 [id number] / [id number] / [id number] Stent Axios [id number] - [id number] Implanted:Qty: 1 on 12/07/2022 by Tanya Morris MD at OR [facility] N/A: Abdomen [employer] : ENDOSCOPY [id number] 08/25/2023 [id number] / / [id number] Stent Bili Pigtail 7fr 100mm - [id number] Implanted:Qty: 1 on 12/07/2022 by Tanya Morris MD at OR [facility] N/A: Abdomen [employer] [id number] 08/03/2025 PBD-1033-0 710 / / [id number] Stent Bili Pigtail 7fr 100mm - [id number] Implanted:Qty: 1 on 12/07/2022 by Tanya Morris MD at OR [facility] N/A: Abdomen [employer] [id number] 08/03/2025 PBD-1033-0 710 / / [id number] Power Port 8fr Sngl Lumen Plas - [id number] Implanted:Qty: 1 on 12/29/2022 by Landon Hickman DO at OR [facility] Right: Chest CR BARD : PERIPHERAL VASCULAR [id number] 12/02/2023 [id number] / / [id number] Hanarostent Noncover 10dm 10cm - [id number] Implanted:Qty: 1 on 02/19/2023 by Tanya Morris MD at OR [facility] Access Media [employer] [id number] 12/31/2024 SHS-10-100 -180 / / [id number] documented as of this encounter Visit Diagnoses Diagnosis Carcinoma of gallbladder (HCC)- Primary Malignant neoplasm of gallbladder Encounter for antineoplastic chemotherapy documented in this encounter Administered Medications Active Administered Medications - up to 3 most recent administrations Medication Order MAR Action Action Date Dose Rate Site diphenhydrAMINE (Benadryl) inj 50 mg 50 mg, IV Push, ONCE PRN Other, Hypersensitivity Reaction, Starting on Wed05/30/24 at 1201, Until Wed05/31/24 at 1200, For 24 hours EPINEPHrine 1 MG/ML inj 0.3 mg 0.3 mg, Intramuscular, ONCE PRN Other, Hypersensitivity Reaction or Anaphylaxis, Starting on Wed05/30/24 at 1201, Until Wed05/31/24 at 1200, For 24 hours hEParin 100 UNIT/ML Lock Flush inj 500 Units 500 Units (5 mL), IV Lock, PRN Other, IV Flush, Starting on Wed05/30/24 at 1201, Until Wed05/31/24 at 1200, For 24 hours, Do not flush if lock, PICC, or central line not in place; IV infusing or unable to flush. Hydrocortisone Sod Suc (PF) (Solu-Cortef) inj 100 mg 100 mg, IV Push, ONCE PRN Other, Hypersensitivity Reaction, Starting on Wed05/30/24 at 1201, Until Wed05/31/24 at 1200, For 24 hours LORAzepam (Ativan) tab 0.5 mg 0.5 mg, Oral, ONCE PRN Anxiety, Nausea, Starting on Wed05/30/24 at 0830, Until Discontinued NSS infusion FOR HYDRATION Intravenous, at 50 mL/hr Administer over 10 Hours, PRN, Starting on Wed05/30/24 at 1201, Until Discontinued Start Infusion 05/30/2024 12:06 PM EDT 500 mL 50 mL/hr oxygen GAS Inhalation, OXYGEN, First dose on Wed05/30/24 at 1600, Until Discontinued, Device/Managed by: Low Flow Device, Goal SPO2 (%): 91-95, Starting Device: Nasal Cannula, Initial Flow Rate (LPM): 2, Lowest Support: Nasal Cannula: Flow 0-6 LPM. Titrate up/down by 1 LPM., Higher Support: Non-Rebreather (NRB) Mask: Minimum of 10 LPM. Titrate to maintain bag inflation., Titration Interval: Q2 minutes and as needed., Notify Provider: For sudden DECREASE in resting SPO2 to less than 85% and when escalating delivery device., Wean patient off Oxygen when the oxygen saturation is greater than or equal to 93% sodium chloride 0.9 % flush central line 10 mL 10 mL, IV Push, PRN Other, IV Flush, Starting on Wed05/30/24 at 1201, Until Wed05/31/24 at 1200, For 24 hours, Do not flush if lock, PICC, or central line not in place; IV infusing or unable to flush. Inactive Administered Medications - up to 3 most recent administrations Medication Order MAR Action Action Date Dose Rate Site Fluorouracil (5-Fu) 4,500 mg for Home Infusion 4,500 mg (rounded from 4,464 mg = 2,400 mg/m2 1.86 m2 Treatment Plan BSA from Recorded weight), Intravenous, Administer over 46 Hours, Home Infusion Pharmacy to specify base solution and volume., ONCE, 1 dose, On Wed05/30/24 at 1315 Start Infusion 05/30/2024 1:15 PM EDT 4,500 mg 3 mL/hr Fluorouracil (5-Fu) inj 750 mg 750 mg (rounded from 744 mg = 400 mg/m2 1.86 m2 Treatment Plan BSA from Recorded weight), IV Push, ONCE, 1 dose, On Wed05/30/24 at 1300 Given 05/30/2024 1:12 PM EDT 750 mg leucovorin calcium 750 mg in D5W 250 mL INFUSION 750 mg (rounded from 744 mg = 400 mg/m2 1.86 m2 Treatment Plan BSA from Recorded weight), IV Piggyback, ONCE, 1 dose, On Wed05/30/24 at 1245, Administer over 30 Minutes, Before 5-FU Start Infusion 05/30/2024 12:21 PM EDT 750 mg 510 mL/hr ondansetron (Zofran) tab 8 mg 8 mg, Oral, ONCE, On Wed05/30/24 at 1245, For 1 dose Given 05/30/2024 12:07 PM EDT 8 mg documented in this encounter Advance Directives * Full Code (Latest Code Status on File) Date Activated Date Inactivated Comments 12/04/2022 10:10 PM 12/08/2022 3:55 PM This order re flects the patients wishes and were consensually agreed upon. Question Answer Comments Discussion of Advance Directives occurred with: Patient Care Teams Nuclear Plant Technical Advisor Relationship Specialty Start Date End Date Kristine Kan DO 293 [facility] [place] [address] PCP - General Family Medicine 03/16/24 documented as of this encounter
--- OUTSIDE RECORDS SUMMARY | 2024-06-06 23:32 | External Medical Summary | Summary of Care ---
Author Name Unknown Organization [facility] Address [address] [place] [address] Phone [phone] Care Team Providers Care Package Maker Name Role Phone Kristine Kan Primary Care Provider [phone] Reason for Visit * Reason Comments Outpatient Testing Encounter Details Date Type Department Care Team (Late st Contact Info) Description 05/29/2024 11:10 AM EDT Laboratory Laboratory [facility] [address] [place] [phone] [facility] Lab [facility] 200 [facility] [place] [address] Carcinoma of gallbladder (HCC) Allergies Active Allergy Reactions Criticality Noted Date Comments Latex Rash 06/28/2018 From a dressing Sulfamethoxazole Edema face/lips/tongue High 023 Trimethoprim Edema face/lips/tongue High 12/03/2022 documented as of this encounter (statuses as of 05/29/2024) Medications Medication Sig Dispensed Refills Start Date [...] Tablet Therapy Pack (Eliquis DVT/PE Starter Pack)Indications:Ac pilot station 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 [...] mcgIndications:Vitamin B 12 deficiency 1000 mcg IM [id number] 09/02/2023 08/03/2024 Active documented as of this encounter (statuses as of 05/29/2024) Active Problems Problem Noted Date Diagnosed Date [...] as of this encounter (statuses as of 05/29/2024) Resolved Problems Problem Noted Date Diagnosed Date [...] as of this encounter (statuses as of 05/29/2024) Immunizations Name Administration Dates Next Due COVID-19 [...] Care Team (Late st Contact Info) Description 05/30/2024 11:00 AM EDT Hem/Onc Treatment Hematology/Oncology Treatment, [place] [address] [place] [phone] Jessica, Chair 3 Hem Onc [place] [address] [place] [address] 06/08/2024 11:00 AM EDT Imaging Radiology [facility], [place] [address] [facility] [place] [address] 06/12/2024 10:30 AM EDT Laboratory Laboratory [facility] [place] [address] [place] [phone] Jessica Lab [facility] [address] [facility] [place] [address] 06/12/2024 11:00 AM EDT Office Visit Hematology/Oncology [facility] [place] [address] [place] [phone] Hardik Gross MD [address] [place], [place] [address] 06/13/2024 11:00 AM EDT Hem/Onc Treatment Hematology/Oncology Treatment, [place] [address] [place] [phone] Park, Chair 9 Hem Onc [address]en[address] [place], [place] [address] 07/10/2024 1:00 PM EDT Office Visit Family Practice [address], [place] 293 [place] [address] Kristine Kan DO 293 [place] [address] Pending Results Name Type Priority Associated Diagnoses Date /Time CBC WITH WBC DIFFERENTIAL Lab STAT Carcinoma of gallbladder (HCC) 05/29/2024 11:12 AM EDT COMPREHENSIVE METABOLIC PANEL Lab STAT Carcinoma of gallbladder (HCC) 05/29/2024 11:12 AM EDT MAGNESIUM Lab STAT Carcinoma of gallbladder (HCC) 05/29/2024 11:12 AM EDT DIFFERENTIAL, AUTOMATED Lab STAT Carcinoma of gallbladder (HCC) 05/29/2024 11:12 AM EDT Health Maintenance Due Date Last Done Comments Adult Wellness Visit 2015 COVID-19 Vaccine ( season) 2024 11/08/2023, 07/10/2022, 01/06/2022, Additional history exists Influenza Vaccine (FLU shot) (#1) 2024 06/30/2023, 07/18/2022, 05/18/2021, Additional history exists Albumin/Creatinine Ratio 09/02/2024 09/02/2023, 08/0 10/2021 Depression Monitoring 11/09/2024 11/09/2023 GFR 11/15/2024 05/15/2024, 07/, 04/25/2024, Additional history exists CKD PHOS USE SMARTSET 85870 11/25/2024 11/25/2023, 0 12/05/2022 HbA1c 11/25/2024 11/25/2023, 11/04, 05/04/2022, Additional history exists CKD HGB USE SMARTSET 09651 05/24/202505/29, 05/24/2024, 05/24/2024, Additional history exists DXA Scan 12/16/2028 [...] this encounter Medical Devices Implanted Type Area Automatic Print Developer Device Identifier Shelf Expiration Date Model / Serial / Lot Lens Intraoc 21.5 - [id number] - [id number] Implanted:Qty: 1 on 07/27/2019 by Tristian Araujo MD at OR [facility] Left: Eye BAUSCH & LOMB 04/02/2024 [id number] / [id number] / [id number] Lens Intraoc 21.5 - [id number] - [id number] Implanted:Qty: 1 on 08/08/2019 by Tristian Araujo MD at OR [facility] Right: Eye BAUSCH & LOMB 04/02/2024 [id number] / [id number] / [id number] Stent Axios [id number] - [id number] Implanted:Qty: 1 on 12/07/2022 by Tanya Morris MD at OR [facility] N/A: Abdomen [employer] : ENDOSCOPY [id number] 08/25/2023 [id number] / / [id number] Stent Bili Pigtail 7fr 100mm - [id number] Implanted:Qty: 1 on 12/07/2022 by Tanya Morris MD at OR [facility] N/A: Abdomen [employer] [id number] 08/03/2025 PBD-1033-0 710 / / 2YK Stent Bili Pigtail 7fr 100mm - [id number] Implanted:Qty: 1 on 12/07/2022 by Tanya Morris MD at OR [facility] N/A: Abdomen [employer] [id number] 08/03/2025 PBD-1033-0 710 / / 2YK Power Port 8fr Sngl Lumen Plas - [id number] Implanted:Qty: 1 on 12/29/2022 by Landon Hickman DO at OR [facility] Right: Chest CR BARD : PERIPHERAL VASCULAR [id number] 12/02/2023 [id number] / / [id number] Hanarostent Noncover 10dm 10cm - [id number] Implanted:Qty: 1 on 02/19/2023 by Tanya Morris MD at OR [facility] [employer] [id number] 12/31/2024 SHS-10-100 -180 / / [id number] documented as of this encounter Procedures Procedure Name Priority Date/Time Associated Diagnosis Comments CBC STAT 05/29/2024 11:12 AM EDT Carcinoma of gallbladder (HCC) documented in this encounter Results * (ABNORMAL) CBC (05/29/2024 11:12 AM EDT) WBC 3.98(L) 4.00 - 10.80 K/uL 05/29/2024 11:26 AM EDT [facility] 56-02 RBC 2.52 3.85 - 5.15 M/uL 05/29/2024 11:26 AM EDT [facility] 56-02 HGB 8.7(L) 12.0 - 15.3 g/dL 05/29/2024 11:26 AM EDT [facility] 56-02 HCT 28.2(L) 36.0 - 45.2 % 05/29/2024 11:26 AM EDT [facility] 56 MCV 111.9 81.5 - 97.5 fL 05/29/2024 11:26 AM EDT [facility] 56 MCH 34.5 27.0 - 34.0 pg 05/29/2024 11:26 AM EDT [facility] 56 MCHC 30.9 32.0 - 36.0 g/dL 05/29/2024 11:26 AM EDT [facility] 56 RDW 18.8 11.5 - 15.5 % 05/29/2024 11:26 AM EDT [facility] 56 PLT 272 140 - 400 K/uL 05/29/2024 11:26 AM EDT [address] MPV 8.4 6.6 - 11.1 fL 05/29/2024 11:26 AM EDT [facility] 56 Blood Venous blood specimen / Unknown Venipuncture / Unknown 05/29/2024 11:12 AM EDT 05/29/2024 11:12 AM EDT Hardik Gross MD LAB BLOOD ORDERA BLES [facility] [address] [place] [address] documented in this encounter Visit Diagnoses Diagnosis Carcinoma of gallbladder (HCC) Malignant neoplasm of gallbladder documented in this encounter Advance Directives * Full Code (Latest Code Status on File) Date Activated Date Inactivated Comments 12/04/2022 10:10 PM 12/08/2022 3:55 PM This order re flects the patients wishes and were consensually agreed upon. Question Answer Comments Discussion of Advance Directives occurred with: Patient Care Teams Package Maker Relationship Specialty Start Date End Date Kristine Kan DO [address] [facility] [address] PCP - General Family Medicine 03/16/24 documented as of this encounter
--- OUTSIDE RECORDS SUMMARY | 2024-06-06 23:32 | External Medical Summary | Summary of Care ---
Author Name Unknown Organization [facility] Address [address] [place] [address] Phone [phone] Care Team Providers Care Manager Highway Name Role Phone Kristine Kan Primary Care Provider Reason for Visit * Reason Onset Date Comments Advice 06/01/2024 Increased neurop athy Encounter Details Date Type Department Care Team (Late st Contact Info) Description 06/01/2024 Telephone Hematology/Oncology Treatment, [place] [address] [place] [address] Hardik Gross MD [address] [place] [address] Advice (Increased neuropathy ) Allergies Active Allergy Reactions Criticality Noted Date [...] mcgIndications:Vitamin B 12 deficiency 1000 mcg IM [id number] 09/02/2023 08/03/2024 Active documented as of this [...] No 12/04/2022 documented as of this encounter Miscellaneous Notes * Telephone Encounter - Muriel Damon RN - 06/06/2024 10:[address] Gross prescribed gabapentin. Left message for patient, also sent MyG. * Telephone Encounter - Vanessa Kang RN - 06/01/2024 3:18 PM EDT Patient seen in treatment room today. Reports increased neuropathy. States affecting ambulation andbalance. Interested in starting medication. documented in this encounter Plan of Treatment Upcoming Encounters Date Type Department Care Team (Late st Contact Info) Description 06/08/2024 11:00 AM EDT Imaging Radiology [address] [place] [address] 06/12/2024 10:30 AM EDT Laboratory Laboratory [facility] [address] [place] [phone] Jessica Lab [place] [address] [facility] [place] [address] 06/12/2024 11:00 AM EDT Office Visit Hematology/Oncology [facility] [place] [address] [place] [phone] Hardik Gross MD [address] [place] [address] 06/13/2024 1:00 PM EDT Hem/Onc Treatment Hematology/Oncology [facility] [address] [place] [phone] Jessica, Chair 7 Hem Onc [facility] [address] [facility] [place] [address] 07/10/2024 1:00 PM EDT Office Visit Family Practice [address], [place] 293 [place] [address] Kristine Kan DO 293 [facility], [place] [address] Health Maintenance Due Date Last Done Comments Adult Wellness Visit 2015 COVID-19 Vaccine ( season) 2024 11/08/2023, 07/10/2022, 01/06/2022, Additional history exists Influenza Vaccine (FLU shot) (#1) 2024 06/30/2023, 07/18/2022, 05/18/2021, Additional history exists Albumin/Creatinine Ratio 09/02/2024 09/02/2023, 08/0 10/2021 Depression Monitoring 11/09/2024 11/09/2023 CKD PHOS USE SMARTSET 88119 11/25/2024 11/25/2023, 0 12/05/2022 HbA1c 11/25/2024 11/25/2023, 11/04, 05/04/2022, Additional history exists GFR 11/29/2024 05/29/2024, 05/04, 05/02/2024, Additional history exists CKD HGB USE SMARTSET 55138 05/29/202505/29, 05/29/2024, 05/24/2024, Additional history exists DXA [...] this encounter Medical Devices Implanted Type Area Plate Furnace Operator Device Identifier Shelf Expiration Date Model / Serial / Lot Lens Intraoc 21.5 - [id number] - [id number] Implanted:Qty: 1 on 07/27/2019 by Tristian Araujo MD at OR [facility] Left: Eye BAUSCH & LOMB 04/02/2024 [id number] / [id number] / [id number] Lens Intraoc 21.5 - [id number] - [id number] Implanted:Qty: 1 on 08/08/2019 by Tristian Araujo MD at OR [facility] Right: Eye BAUSCH & LOMB 04/02/2024 [id number] / [id number] / [id number] Stent Axios [id number] - [id number] Implanted:Qty: 1 on 12/07/2022 by Tanya Morris MD at OR [facility] N/A: Abdomen [employer] : ENDOSCOPY [id number] 08/25/2023 [id number] / / [id number] Stent Bili Pigtail 7fr 100mm - [id number] Implanted:Qty: 1 on 12/07/2022 by Tanya Morris MD at OR [facility] N/A: Abdomen [employer] [id number] 08/03/2025 PBD-1033-0 710 / / 2YK Stent Bili Pigtail 7fr 100mm - [id number] Implanted:Qty: 1 on 12/07/2022 by Tanya Morris MD at OR [facility] N/A: Abdomen [employer] [id number] 08/03/2025 PBD-1033-0 710 / / 2YK Power Port 8fr Sngl Lumen Plas - [id number] Implanted:Qty: 1 on 12/29/2022 by Landon Hickman DO at OR [facility] Right: Chest CR BARD : PERIPHERAL VASCULAR [id number] 12/02/2023 [id number] / / [id number] Hanarostent Noncover 10dm 10cm - [id number] Implanted:Qty: 1 on 02/19/2023 by Tanya Morris MD at OR [facility] [employer] [id number] 12/31/2024 [facility]-10-100 -180 / / [id number] documented as of this encounter Advance Directives * Full Code (Latest Code Status on File) Date Activated Date Inactivated Comments 12/04/2022 10:10 PM 12/08/2022 3:55 PM This order re flects the patients wishes and were consensually agreed upon. Question Answer Comments Discussion of Advance Directives occurred with: Patient Care Teams Manager Highway Relationship Specialty Start Date End Date Kristine Kan DO [address] [place] [address] PCP - General Family Medicine 03/16/24 documented as of this encounter
--- OUTSIDE RECORDS SUMMARY | 2024-06-06 23:32 | External Medical Summary ---
Author Name Unknown Address Unknown Organization K09:[facility] [place] [address] [place] [address] Laboratory Report Ordering Provider Test Date Status TASHA MANN 05/29/2024 11:12:27 Final Observation Date Value Abnormality Reference (Units ) Status BUN 05/29/2024 11:12:27 22 Above high normal 6-20 (mg/dL) Final Creatinine 05/29/2024 11:12:27 1.7 Above high normal 0.5-1.0 (mg/dL) Final Glomerular filtration rate/1.73 sq M.predicted [Volume Rate/Area] in Serum, Plasma or Blood by Creatinine-based formula (CKD-EPI) 05/29/2024 11:12:27 31 Below low normal >=60 (mL/min) Final eGFR is calculated based on the CKD-EPI 2020 equation. Sodium 05/29/2024 11:12:27 139 135-146 (m mol/L) Final Potassium 05/29/2024 11:12:27 3.5 3.5-5.1 (m mol/L) Final Cl 05/29/2024 11:12:27 105 98-107 (mm ol/L) Final CO2 05/29/2024 11:12:27 20 Below low normal 22- 32 (mmol/L) Final Anion gap 05/29/2024 11:12:27 14 7-15 (mmol /L) Final Glucose 05/29/2024 11:12:27 124 Above high normal 70 -120 (mg/dL) Final Albumin 05/29/2024 11:12:27 3.7 Below low normal 3.8 -5.0 (g/dL) Final AST (Aspartate aminotransferase) 05/29/2024 11:12:27 12 10-35 (U/L) Fin al Alk Phos 05/29/2024 11:12:27 72 35-130 (U/ L) Final Bilirubin, Total 05/29/2024 11:12:27 0.4 <=1 .2 (mg/dL) Final Calcium 05/29/2024 11:12: 9.2 8.4-10.2 ( mg/dL) Final Protein 05/29/2024 11:12: 6.6 6.0-8.3 (g /dL) Final ALT (Alanine aminotransferase) 05/29/2024 11:12: 5 Below low normal 10-35 (U/L) Final Performing Location [facility] [place] [address] [place] [address]
--- OUTSIDE RECORDS SUMMARY | 2024-06-06 23:32 | External Medical Summary ---
Author Name Unknown Address Unknown Organization K09:[facility] [place] [address] Laboratory Report Ordering Provider Test Date Status TASHA MANN 05/29/2024 11:12:27 Final Observation Date Value Abnormality Reference (Units ) Status Magnesium 05/29/2024 11:12:27 1.7 1.5-2.6 (m g/dL) Final Performing Location [facility] [place] [place] [address]
--- OUTSIDE RECORDS SUMMARY | 2024-06-06 23:33 | External Medical Summary | Summary of Care ---
Author Name Unknown Organization [facility] Address [address] [place] [address] Phone [phone] Care Team Providers Care Daytime Caregiver Name Role Phone Kristine Kan Primary Care Provider [phone] Reason for Visit * Reason Onset Date Comments Test Results 05/15/2024 Encounter Details Date Type Department Care Team (Late st Contact Info) Description 05/15/2024 Telephone Hematology/Oncology Treatment, [place] [address] [place] [address] Hardik Gross MD [address] [place] [address] Test Results Allergies Active Allergy Reactions Criticality Noted Date Comments Latex Rash 06/28/2018 From a dressing Sulfamethoxazole Edema face/lips/tongue High 023 Trimethoprim Edema face/lips/tongue High 12/03/2022 documented as of this encounter (statuses as of 05/15/2024) Medications Medication Sig Dispensed Refills Start Date [...] Tablet Therapy Pack (Eliquis DVT/PE Starter Pack)Indications:Ac [place] 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 [...] mcgIndications:Vitamin B 12 deficiency 1000 mcg IM [id number] 09/02/2023 08/03/2024 Active documented as of this encounter (statuses as of 05/15/2024) Active Problems Problem Noted Date Diagnosed Date [...] as of this encounter (statuses as of 05/15/2024) Resolved Problems Problem Noted Date Diagnosed Date [...] as of this encounter (statuses as of 05/15/2024) Immunizations Name Administration Dates Next Due COVID-19 [...] Telephone Encounter - Muriel Damon RN - 05/15/2024 12:57 PM EDT Creatinine 1.7, hgb 7.6. Per Dr Gross, ok to proceed with treatment tomorrow if patient feels up to it. Can also offer 1 unit PRBC. Called patient. She states that she is very tired, denies SOB. States that when she stands has somedizziness, but she is walking better and this has improved over the past week. Patient denies nausea/ diarrhea, reports pushing her fluid intake. Patient states that she wants to get treatment tomorrow. Offered transfusion, discussed that hgb likely will decline further with chemotherapy tomorrow. Patient states that she does not want to schedule transfusion now, but will think about it and let us know tomorrow if she changes her mind- would like to see what her vital signs look like first. documented in this encounter Plan of Treatment Upcoming Encounters Date Type Department Care Team (Latest Contact Info) Description 05/16/2024 2:30 PM EDT Hem/Onc Treatment Hematology/Oncolog y Treatment, [place] [address] [place], [place] [address] Carcinoma of gallbladder (HCC)*; Encounter for antineoplastic chemotherapy 06/08/2024 11:00 AM EDT Imaging Radiology [facility], [place] [address] [place] [address] 07/10/2024 1:00 PM EDT Office Visit Family Practice [address], [place] [address] [place] [phone] Kristine Kan DO [facility] [address] Health Maintenance Due Date Last Done Comments Adult Wellness Visit 2015 COVID-19 Vaccine ( season) 2024 11/08/2023, 07/10/2022, 01/06/2022, Additional history exists Influenza Vaccine (FLU shot) (#1) 2024 06/30/2023, 07/18/2022, 05/18/2021, Additional history exists Albumin/Creatinine Ratio 09/02/2024 09/02/2023, 08/0 10/2021 Depression Monitoring 11/09/2024 11/09/2023 GFR 11/15/2024 05/15/2024, 04/05, 04/25/2024, Additional history exists CKD PHOS USE SMARTSET 75718 11/25/2024 11/25/2023, 0 12/05/2022 HbA1c 11/25/2024 11/25/2023, 11/04, 05/04/2022, Additional history exists CKD HGB USE SMARTSET 91880 05/15/202505/15, 05/15/2024, 05/02/2024, Additional history exists DXA Scan 12/16/2028 12/16/2021, [...] this encounter Medical Devices Implanted Type Area Market Stall Vendor Device Identifier Shelf Expiration Date Model / Serial / Lot Lens Intraoc 21.5 - [id number] - [id number] Implanted:Qty: 1 on 07/27/2019 by Tristian Araujo MD at OR [facility] Left: Eye [employer] LOMB 04/02/2024 [id number] / [id number] / [id number] Lens Intraoc 21.5 - [id number] - [id number] Implanted:Qty: 1 on 08/08/2019 by Tristian Araujo MD at OR [facility] Right: Eye BA[employer]CH [employer] LOMB 04/02/2024 [id number] / [id number] / [id number] Stent Axios [id number] - [id number] Implanted:Qty: 1 on 12/07/2022 by Tanya Morris MD at OR [facility] N/A: Abdomen [employer] : ENDOSCOPY [id number] 08/25/2023 [id number] / / [id number] Stent Bili Pigtail 7fr 100mm - [id number] Implanted:Qty: 1 on 12/07/2022 by Tanya Morris MD at OR [facility] N/A: Abdomen [employer] [id number] 08/03/2025 PBD-1033-0 710 / / [id number] Stent Bili Pigtail 7fr 100mm - [id number] Implanted:Qty: 1 on 12/07/2022 by Tanya Morris MD at OR [facility] N/A: Abdomen [employer] [id number] 08/03/2025 PBD-1033-0 710 / / 2YK Power Port 8fr Sngl Lumen Plas - [id number] Implanted:Qty: 1 on 12/29/2022 by Landon Hickman DO at OR [facility] Right: Chest CR BARD : PERIPHERAL VASCULAR [id number] 12/02/2023 [id number] / / [id number] Hanarostent Noncover 10dm 10cm - [id number] Implanted:Qty: 1 on 02/19/2023 by Tanya Morris MD at OR [facility] [employer] [id number] 12/31/2024 [facility]-10-100 -180 / / [id number] documented as of this encounter Advance Directives * Full Code (Latest Code Status on File) Date Activated Date Inactivated Comments 12/04/2022 10:10 PM 12/08/2022 3:55 PM This order re flects the patients wishes and were consensually agreed upon. Question Answer Comments Discussion of Advance Directives occurred with: Patient Care Teams Daytime Caregiver Relationship Specialty Start Date End Date Kristine Kan DO [address] [facility] [place] [address] PCP - General Family Medicine 03/16/24 documented as of this encounter
--- OUTSIDE RECORDS SUMMARY | 2024-06-06 23:33 | External Medical Summary | Summary of Care ---
Author Name Unknown Organization [facility] Address [address] [place] [address] Phone [phone] Care Team Providers Care Tenter Name Role Phone Kristine Kan Primary Care Provider [phone] Reason for Visit * Reason Comments Outpatient Testing Encounter Details Date Type Department Care Team (Late st Contact Info) Description 05/15/2024 11:10 AM EDT Laboratory Laboratory [facility] [address] [place] [phone] [facility] [address] [facility] [place] [address] Carcinoma of gallbladder (HCC) Allergies Active Allergy [...] Tablet Therapy Pack (Eliquis DVT/PE Starter Pack)Indications:Ac [place] 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 [...] mcgIndications:Vitamin B 12 deficiency 1000 mcg IM [id number] 09/02/2023 08/03/2024 Active documented as of this [...] Care Team (Late st Contact Info) Description 05/16/2024 2:30 PM EDT Hem/Onc Treatment Hematology/Oncology Treatment, [place] [address] [place] [address] 06/08/2024 11:00 AM EDT Imaging Radiology [address] 132 [facility] [place] [address] 07/10/2024 1:00 PM EDT Office Visit Family Practice [address], [place] [facility] [phone] Kristine Kan, DO [address] [facility] [address] Pending Results Name Type Priority Associated Diagnoses Date /Time COMPREHENSIVE METABOLIC PANEL Lab STAT Carcinoma of gallbladder (HCC) 05/15/2024 11:17 AM EDT MAGNESIUM Lab STAT Carcinoma of gallbladder (HCC) 05/15/2024 11:17 AM EDT Health Maintenance Due Date Last Done Comments Adult Wellness Visit 2015 COVID-19 Vaccine ( season) 2024 11/08/2023, 07/10/2022, 01/06/2022, Additional history exists Influenza Vaccine (FLU shot) (#1) 2024 06/30/2023, 07/18/2022, 05/18/2021, Additional history exists Albumin/Creatinine Ratio 09/02/2024 09/02/2023, 08/0 10/2021 GFR 11/02/2024 05/02/2024, 07/2 12/2023, 04/10/2024, Additional history exists Depression Monitoring 11/09/2024 11/09/2023 CKD PHOS USE SMARTSET 62501 11/25/2024 11/25/2023, 0 12/05/2022 HbA1c 11/25/2024 11/25/2023, 11/04, 05/04/2022, Additional history exists CKD HGB USE SMARTSET 80499 05/02/202505/15, 05/15/2024, 05/02/2024, Additional history exists DXA Scan [...] this encounter Medical Devices Implanted Type Area Hatchery Manager Device Identifier Shelf Expiration Date Model / Serial / Lot Lens Intraoc 21.5 - [id number] - [id number] Implanted:Qty: 1 on 07/27/2019 by Tristian Araujo MD at OR [facility] Left: Eye BAUSCH [employer] LOMB 04/02/2024 [id number] / [id number] / [id number] Lens Intraoc 21.5 - [id number] - [id number] Implanted:Qty: 1 on 08/08/2019 by Tristian Araujo MD at OR [facility] Right: Eye BAUSCH & LOMB 04/02/2024 [id number] / [id number] / [id number] Stent Axios [id number] - [id number] Implanted:Qty: 1 on 12/07/2022 by Tanya Morris MD at OR [facility] N/A: Abdomen [employer] : ENDOSCOPY [id number] 08/25/2023 [id number] / / [id number] Stent Bili Pigtail 7fr 100mm - [id number] Implanted:Qty: 1 on 12/07/2022 by Tanya Morris MD at OR [facility] N/A: Abdomen [employer] [id number] 08/03/2025 PBD-1033-0 710 / / 2YK Stent Bili Pigtail 7fr 100mm - [id number] Implanted:Qty: 1 on 12/07/2022 by Tanya Morris MD at OR [facility] N/A: Abdomen [employer] [id number] 08/03/2025 PBD-1033-0 710 / / 2YK Power Port 8fr Sngl Lumen Plas - [id number] Implanted:Qty: 1 on 12/29/2022 by Landon Hickman DO at OR [facility] Right: Chest CR BARD : PERIPHERAL VASCULAR [id number] 12/02/2023 [id number] / / [id number] Hanarostent Noncover 10dm 10cm - [id number] Implanted:Qty: 1 on 02/19/2023 by Tanya Morris MD at OR [facility] [employer] [id number] 12/31/2024 [facility]-10-100 -180 / / [id number] documented as of this encounter Procedures Procedure Name Priority Date/Time Associated Diagnosis Comments DIFFERENTIAL, AUTOMATED STAT 05/15/2024 11:17 AM EDT Carcinoma of gallbladder (HCC) CBC STAT 05/15/2024 11:17 AM EDT Carcinoma of gallbladder (HCC) CBC STAT 05/15/2024 11:17 AM EDT Carcinoma of gallbladder (HCC) documented in this encounter Results * DIFFERENTIAL, AUTOMATED (05/15/2024 11:17 AM EDT) Pathologist [facility] WBC 5.96 4.00 - 10.80 K/uL 05/15/2024 11:21 AM EDT [facility] [place] 56-02 Neutrophils % 54.4 40.0 - 75.0 % 05/15/2024 11:21 AM EDT [facility] [place] 56-02 Lymphocytes % 36.7 18.0 - 42.0 % 05/15/2024 11:21 AM EDT [facility] [place] 56-02 Monocytes % 6.0 1.0 - 11.0 % 05/15/2024 11:21 AM EDT LAB[facility]ATORY [facility] 56-02 Eosinophils % 2.7 0.0 - 6.0 % 05/15/2024 11:21 AM EDT [facility] [place] 56-02 Basophils % 0.2 0.0 - 2.0 % 05/15/2024 11:21 AM EDT [facility] [place] 56-02 Absolute Neutrophils 3.24 1.80 - 7.70 K/uL 05/15/2024 11:21 AM EDT [facility] [place] 56-02 Absolute Lymphocytes 2.19 1.00 - 4.80 K/ul 05/15/2024 11:21 AM EDT [facility] [place] 56-02 Absolute Monocytes 0.36 0.00 - 1.10 K/uL 05/15/2024 11:21 AM EDT [facility] [place] 56-02 Absolute Eosinophils 0.16 0.00 - 0.70 K/uL 05/15/2024 11:21 AM EDT [facility] [place] 56-02 Absolute Basophils 0.01 0.00 - 0.20 K/uL 05/15/2024 11:21 AM EDT [facility] [place] 56-02 Blood Venous blood specimen / Unknown Venipuncture / Unknown 05/15/2024 11:17 AM EDT 05/15/2024 11:17 AM EDT Hardik Gross MD LAB BLOOD ORDERA BLES [facility] [address] [place] [address] * (ABNORMAL) CBC (05/15/2024 11:17 AM EDT) WBC 5.96 4.00 - 10.80 K/uL 05/15/2024 11:21 AM EDT [address] RBC 2.26 3.85 - 5.15 M/uL 05/15/2024 11:21 AM EDT [place] [address] HGB 7.6(L) 12.0 - 15.3 g/dL 05/15/2024 11:21 AM EDT [address] HCT 25.1(L) 36.0 - 45.2 % 05/15/2024 11:21 AM EDT [address] MCV 111.1 81.5 - 97.5 fL 05/15/2024 11:21 AM EDT [address] MCH 33.6 27.0 - 34.0 pg 05/15/2024 11:21 AM EDT [address] MCHC 30.3 32.0 - 36.0 g/dL 05/15/2024 11:21 AM EDT [address] RDW 17.0 11.5 - 15.5 % 05/15/2024 11:21 AM EDT [facility] 56 PLT 145 140 - 400 K/uL 05/15/2024 11:21 AM EDT [facility] 56 MPV 9.3 6.6 - 11.1 fL 05/15/2024 11:21 AM EDT [facility] 56 Blood Venous blood specimen / Unknown Venipuncture / Unknown 05/15/2024 11:17 AM EDT 05/15/2024 11:17 AM EDT Hardik Gross MD LAB BLOOD ORDERA MIR[facility] [place] [address] [place] [address] documented in this encounter Visit Diagnoses Diagnosis [...] Advance Directives occurred with: Patient Care Teams Tenter Relationship Specialty Start Date End Date Kristine Kan DO [address] [facility] [address] PCP - General Family Medicine 03/16/24 documented as of this encounter
--- OUTSIDE RECORDS SUMMARY | 2024-06-06 23:33 | External Medical Summary ---
Author Name Unknown Address Unknown Organization K09:[facility] [place] [address] Laboratory Report Ordering Provider Test Date Status TASHA MANN 05/15/2024 11:17:53 Final Observation Date Value Abnormality Reference (Units ) Status Magnesium 05/15/2024 11:17:53 1.6 1.5-2.6 (m g/dL) Final Performing Location [facility] [place] [address]
--- OUTSIDE RECORDS SUMMARY | 2024-06-06 23:33 | External Medical Summary | Summary of Care ---
Author Name Unknown Organization [facility] Address [address] [place] [address] Phone [phone] Care Team Providers Care Director Of Placement Name Role Phone Kristine Kan Primary Care Provider [phone] Reason for Visit * Reason Comments Outpatient Testing Encounter Details Date Type Department Care Team (Late st Contact Info) Description 05/24/2024 10:30 AM EDT Laboratory Laboratory [facility] [address] [place] [phone] [facility] Lab [facility] [address] [place] [address] Carcinoma of gallbladder (HCC) Allergies Active Allergy Reactions Criticality Noted Date Comments Latex Rash 06/28/2018 From a dressing Sulfamethoxazole Edema face/lips/tongue High 023 Trimethoprim Edema face/lips/tongue High 12/03/2022 documented as of this encounter (statuses as of 05/24/2024) Medications Medication Sig Dispensed Refills Start Date [...] Tablet Therapy Pack (Eliquis DVT/PE Starter Pack)Indications:Ac [place] 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 [...] mcgIndications:Vitamin B 12 deficiency 1000 mcg IM [id number] 09/02/2023 08/03/2024 Active documented as of this encounter (statuses as of 05/24/2024) Active Problems Problem Noted Date Diagnosed Date [...] as of this encounter (statuses as of 05/24/2024) Resolved Problems Problem Noted Date Diagnosed Date [...] as of this encounter (statuses as of 05/24/2024) Immunizations Name Administration Dates Next Due COVID-19 [...] Description 05/29/2024 11:10 AM EDT Laboratory Laboratory [facility] [address] [place] [phone] Jessica [address] [facility] [place] [address] 05/30/2024 11:00 AM EDT Hem/Onc Treatment Hematology/Oncology Treatment, [place] [address] [place] [phone] Jessica, Chair 3 Hem Onc Scene [address] [place] [address] 06/08/2024 11:00 AM EDT Imaging Radiology [address], [place] 132 [facility] [place] [address] 06/12/2024 10:30 AM EDT Laboratory Laboratory [facility] [place] [address] [place] [phone] Jessica [address] [facility] [place], [place] [address] 06/12/2024 11:00 AM EDT Office Visit Hematology/Oncology [facility] [place] [place] [address] [place] [phone] Hardik Gross MD [address] [place] [address] 06/13/2024 11:00 AM EDT Hem/Onc Treatment Hematology/Oncology Treatment, [place] [address] [place], [place] [phone] Jessica, Chair 9 Hem Onc [facility] [address] [place], [place] [address] 07/10/2024 1:00 PM EDT Office Visit Family Practice [address], [place] 293 [place] [address] Kristine Kan DO [address] [place] [address] Health Maintenance Due Date Last Done Comments Adult Wellness Visit 2015 COVID-19 Vaccine ( season) 2024 11/08/2023, 07/10/2022, 01/06/2022, Additional history exists Influenza Vaccine (FLU shot) (#1) 2024 06/30/2023, 07/18/2022, 05/18/2021, Additional history exists Albumin/Creatinine Ratio 09/02/2024 09/02/2023, 08/0 10/2021 Depression Monitoring 11/09/2024 11/09/2023 GFR 11/15/2024 05/15/2024, 04/05, 04/25/2024, Additional history exists CKD PHOS USE SMARTSET 29379 11/25/2024 11/25/2023, 0 12/05/2022 HbA1c 11/25/2024 11/25/2023, 11/04, 05/04/2022, Additional history exists CKD HGB USE SMARTSET 69887 05/15/202505/24, 05/24/2024, 05/15/2024, Additional history exists DXA Scan [...] this encounter Medical Devices Implanted Type Area Trucking Supervisor Device Identifier Shelf Expiration Date Model / Serial / Lot Lens Intraoc 21.5 - [id number] - [id number] Implanted:Qty: 1 on 07/27/2019 by Tristian Araujo MD at OR [facility] Left: Eye [employer] 04/02/2024 [id number] / [id number] / [id number] Lens Intraoc 21.5 - [id number] - [id number] Implanted:Qty: 1 on 08/08/2019 by Tristian Araujo MD at OR [facility] Right: Eye [employer] LOMB 04/02/2024 [id number] / [id number] / [id number] Stent Axios [id number] - [id number] Implanted:Qty: 1 on 12/07/2022 by Tanya Morris MD at OR [facility] N/A: Abdomen [employer] : ENDOSCOPY [id number] 08/25/2023 [id number] / / [id number] Stent Bili Pigtail 7fr 100mm - [id number] Implanted:Qty: 1 on 12/07/2022 by Tanya Morris MD at OR [facility] N/A: Abdomen [employer] [id number] 08/03/2025 PBD-1033-0 710 / / 2YK Stent Bili Pigtail 7fr 100mm - [id number] Implanted:Qty: 1 on 12/07/2022 by Tanya Morris MD at OR [facility] N/A: Abdomen [employer] [id number] 08/03/2025 PBD-1033-0 710 / / 2YK Power Port 8fr Sngl Lumen Plas - [id number] Implanted:Qty: 1 on 12/29/2022 by Landon Hickman DO at OR [facility] Right: Chest CR BARD : PERIPHERAL VASCULAR [id number] 12/02/2023 [id number] / / [id number] Hanarostent Noncover 10dm 10cm - [id number] Implanted:Qty: 1 on 02/19/2023 by Tanya Morris MD at OR [facility] [employer] [id number] 12/31/2024 [facility]-10-100 -180 / / [id number] documented as of this encounter Procedures Procedure Name Priority Date/Time Associated Diagnosis Comments DIFFERENTIAL, AUTOMATED STAT 05/24/2024 10:32 AM EDT Carcinoma of gallbladder (HCC) CBC STAT 05/24/2024 10:32 AM EDT Carcinoma of gallbladder (HCC) CBC STAT 05/24/2024 10:32 AM EDT Carcinoma of gallbladder (HCC) documented in this encounter Results * (ABNORMAL) DIFFERENTIAL, AUTOMATED (05/24/2024 10:32 AM EDT) WBC 5.62 4.00 - 10.80 K/uL 05/24/2024 10:43 AM EDT [facility] 56-02 Neutrophils % 40.2 40.0 - 75.0 % 05/24/2024 10:43 AM EDT [facility] 56-02 Lymphocytes % 47.2(H) 18.0 - 42.0 % 05/24/2024 10:43 AM EDT [facility] 56 Monocytes % 8.0 1.0 - 11.0 % 05/24/2024 10:43 AM EDT [facility] 56- Eosinophils % 4.4 0.0 - 6.0 % 05/24/2024 10:43 AM EDT [facility] 56- Basophils % 0.2 0.0 - 2.0 % 05/24/2024 10:43 AM EDT [facility] 56 Absolute Neutrophils 2.26 1.80 - 7.70 K/uL 05/24/2024 10:43 AM EDT [facility] 56 Absolute Lymphocytes 2.65 1.00 - 4.80 K/ul 05/24/2024 10:43 AM EDT [facility] 56 Absolute Monocytes 0.45 0.00 - 1.10 K/uL 05/24/2024 10:43 AM EDT [facility] 56 Absolute Eosinophils 0.25 0.00 - 0.70 K/uL 05/24/2024 10:43 AM EDT [facility] 56 Absolute Basophils 0.01 0.00 - 0.20 K/uL 05/24/2024 10:43 AM EDT [facility] 56 Blood Venous blood specimen / Unknown Venipuncture / Unknown 05/24/2024 10:32 AM EDT 05/24/2024 10:32 AM EDT Hardik Gross MD LAB BLOOD ORDERA BLES [facility] [address] [place] [address] * (ABNORMAL) CBC (05/24/2024 10:32 AM EDT) WBC 5.62 4.00 - 10.80 K/uL 05/24/2024 10:43 AM EDT [facility] 56 RBC 2.32 3.85 - 5.15 M/uL 05/24/2024 10:43 AM EDT [facility] 56 HGB 7.8(L) 12.0 - 15.3 g/dL 05/24/2024 10:43 AM EDT [facility] 56 HCT 25.4(L) 36.0 - 45.2 % 05/24/2024 10:43 AM EDT [facility] 56 MCV 109.5 81.5 - 97.5 fL 05/24/2024 10:43 AM EDT [place] [address] MCH 33.6 27.0 - 34.0 pg 05/24/2024 10:43 AM EDT [address] MCHC 30.7 32.0 - 36.0 g/dL 05/24/2024 10:43 AM EDT [place] [address] RDW 16.7 11.5 - 15.5 % 05/24/2024 10:43 AM EDT [place] [address] PLT 229 140 - 400 K/uL 05/24/2024 10:43 AM EDT [place] [address] MPV 9.2 6.6 - 11.1 fL 05/24/2024 10:43 AM EDT [facility] 56 Blood Venous blood specimen / Unknown Venipuncture / Unknown 05/24/2024 10:32 AM EDT 05/24/2024 10:32 AM EDT Hardik Gross MD LAB BLOOD ORDERA BLES [facility] [address] [place] [address] documented in this encounter Visit Diagnoses Diagnosis [...] Advance Directives occurred with: Patient Care Teams Director Of Placement Relationship Specialty Start Date End Date Kristine Kan DO [address] [facility] [address] PCP - General Family Medicine 03/16/24 documented as of this encounter
--- OUTSIDE RECORDS SUMMARY | 2024-06-06 23:33 | External Medical Summary | Summary of Care ---
Author Name Unknown Organization [facility] Address [address] [place] [address] Phone [phone] Care Team Providers Care Refrigeration Tech Name Role Phone ChrisblancaKristine schultz Primary Care Provider [phone] Reason for Visit * Reason Comments Procedure Pump d/c. * Episode Based Medications (Routine) - Authorized Specialty Diagnoses / Procedures Referred By Marcela johansen Referred To Contact Diagnoses Carcinoma of gallbladder (HCC) Encounter for antineoplastic chemotherapy Procedures FL LEUCOVORIN CALCIUM INJECTION FL PALONOSETRON HCL FL FLUOROURACIL INJECTION FL OXALIPLATIN Hardik Gross MD [address] [place] [address] Anc Hem/Onc [address] [address] Referral ID Status Reason Start Date Expiration Date V isits Requested Visits Authorized [id number] Authorized 12/14/2023 12/13/2024 999 999 Encounter Details Date Type Department Care Team (Latest Contact Info) Description 05/18/2024 2:00 PM EDT Immunization/ Injection Hematology/Oncology Treatment, [address] [address] Jessica, Chair 8 Hem Onc [address] [place] [address] Carcinoma of gallbladder (HCC)*; Encounter for antineoplastic chemotherapy; Encounter for central line care Allergies Active Allergy Reactions Criticality Noted Date Comments Latex Rash 06/28/2018 From a dressing Sulfamethoxazole Edema face/lips/tongue High 023 Trimethoprim Edema face/lips/tongue High 12/03/2022 documented as of this encounter (statuses as of 05/18/2024) Medications Medication Sig Dispensed Refills Start Date End Date Status Sodium Chloride (Hypertonic) 5 % Ophthalmic Solution 1 Drop as needed. Active Calcium Carbonate-Vitamin D 600-400 MG-UNIT Oral TabletIndications:I nfiltrating ductal carcinoma of left female breast (HCC) Take 1 Tab by mouth daily. 90 Tab 3 05/07/2021 Active polyethylene glycol 3350 119 gram OR POWD Take 119 g by mouth once. /2 capful daily Active Magnesium 200 MG Oral [...] Tablet Therapy Pack (Eliquis DVT/PE Starter Pack)Indications:[facility] 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 [...] mcgIndications:Vitamin B 12 deficiency 1000 mcg IM H2ADATS 09/02/2023 08/03/2024 Active documented as of this encounter (statuses as of 05/18/2024) Active Problems Problem Noted Date Diagnosed Date [...] as of this encounter (statuses as of 05/18/2024) Resolved Problems Problem Noted Date Diagnosed Date [...] as of this encounter (statuses as of 05/18/2024) Immunizations Name Administration Dates Next Due COVID-19 [...] as of this encounter Nursing Notes * Kamila Guadalupe RN - 05/18/2024 2:24 PM EDT Chair 2. Patient arrived for pump d/c with no acute complaints. Pump was empty, all medication was infused. Patient tolerated procedure well. Discharged in stable condition. documented in this encounter Plan of Treatment Upcoming Encounters Date Type Department Care Team (Late st Contact Info) Description 05/24/2024 10:30 AM EDT Laboratory Laboratory [facility] Jessica [place] [address] [place] [phone] Jessica, Lab Scenery [address] [place] [phone] 05/29/2024 11:10 AM EDT Laboratory Laboratory [facility] Jessica [place] [address] [place] [phone] Jessica, Lab Scenery [address] [place] [address] 05/30/2024 11:00 AM EDT Hem/Onc Treatment Hematology/Oncology Treatment, [place] [address] [place] [phone] Jessica, Chair 2 Hem Onc Scene [address] [place] [address] 06/08/2024 11:00 AM EDT Imaging Radiology [address], [place] [facility] [address] 06/12/2024 10:30 AM EDT Laboratory Laboratory [facility] Jessica [place] [address] [place] [phone] Jessica, Lab Scenery [address] [facility] [place] [address] 06/12/2024 11:00 AM EDT Office Visit Hematology/Oncology [facility] Jessica [place] [address] [place] [phone] Hardik Gross MD [address] [place] [address] 06/13/2024 11:00 AM EDT Hem/Onc Treatment Hematology/Oncology Treatment, [place] [address] [place] [phone] Park, Chair 9 Hem Onc Scenery [address] [place] [address] 07/10/2024 1:00 PM EDT Office Visit Family Practice [address], [place] 293 [place] [phone] Kristine Kan DO [address] [place] [address] Health Maintenance Due Date Last Done Comments Adult Wellness Visit 2015 COVID-19 Vaccine ( season) 2024 11/08/2023, 07/10/2022, 01/06/2022, Additional history exists Influenza Vaccine (FLU shot) (#1) 2024 06/30/2023, 07/18/2022, 05/18/2021, Additional history exists Albumin/Creatinine Ratio 09/02/2024 09/02/2023, 08/0 10/2021 Depression Monitoring 11/09/2024 11/09/2023 GFR 11/15/2024 05/15/2024, 04/05, 04/25/2024, Additional history exists CKD PHOS USE SMARTSET 32145 11/25/2024 11/25/2023, 0 12/05/2022 HbA1c 11/25/2024 11/25/2023, 11/04, 05/04/2022, Additional history exists CKD HGB USE SMARTSET 27323 05/15/202505/15, 05/15/2024, 05/02/2024, Additional history exists DXA [...] this encounter Medical Devices Implanted Type Area Industrial Maintenance Mechanic Device Identifier Shelf Expiration Date Model / Serial / Lot Lens Intraoc 21.5 - [id number] - [id number] Implanted:Qty: 1 on 07/27/2019 by Tristian Araujo MD at OR [facility] Left: Eye [employer] 04/02/2024 [id number] / [id number] / [id number] Lens Intraoc 21.5 - [id number] - [id number] Implanted:Qty: 1 on 08/08/2019 by Tristian Araujo MD at OR [facility] Right: Eye BA[employer]CH [employer] LOMB 04/02/2024 [id number] / [id number] / [id number] Stent Axios [id number] - [id number] Implanted:Qty: 1 on 12/07/2022 by Tanya Morris MD at OR [facility] N/A: Abdomen [employer] : ENDOSCOPY [id number] 08/25/2023 [id number] / / [id number] Stent Bili Pigtail 7fr 100mm - [id number] Implanted:Qty: 1 on 12/07/2022 by Tanya Morris MD at OR [facility] N/A: Abdomen [employer] [id number] 08/03/2025 PBD-1033-0 710 / / [id number] Stent Bili Pigtail 7fr 100mm - [id number] Implanted:Qty: 1 on 12/07/2022 by Tanya Morris MD at OR [facility] N/A: Abdomen [employer] [id number] 08/03/2025 PBD-1033-0 710 / / 2YK Power Port 8fr Sngl Lumen Plas - [id number] Implanted:Qty: 1 on 12/29/2022 by Landon Hickman DO at OR [facility] Right: Chest CR BARD : PERIPHERAL VASCULAR [id number] 12/02/2023 [id number] / / [id number] Hanarostent Noncover 10dm 10cm - [id number] Implanted:Qty: 1 on 02/19/2023 by Tanya Morris MD at OR [facility] [employer] [id number] 12/31/2024 [facility]-10-100 -180 / / [id number] documented as of this encounter Visit Diagnoses Diagnosis Carcinoma of gallbladder (HCC)- Primary Malignant neoplasm of gallbladder Encounter for antineoplastic chemotherapy Encounter for central line care Fitting and adjustment of vascular catheter documented in this encounter Administered Medications Active Administered Medications - up to 3 most recent administrations Medication Order MAR Action Action Date Dose Rate Site hEParin 100 UNIT/ML Lock Flush inj 500 Units 500 Units (5 mL), IV Lock, PRN Other, IV Flush, Starting on Karla 05/18/24 at 1413, Until Wed05/19/24 at 1412, For 24 hours, Do not flush if lock, PICC, or central line not in place; IV infusing or unable to flush. Given 05/18/2024 2:16 PM EDT 500 Units sodium chloride 0.9 % flush central line 10 mL 10 mL, IV Push, PRN Other, IV Flush, Starting on Karla 05/18/24 at 1413, Until 05/19/24 at 1412, For 24 hours, Do not flush if lock, PICC, or central line not in place; IV infusing or unable to flush. Given 05/18/2024 2:15 PM EDT 10 mL documented in this encounter Advance Directives * Full Code (Latest Code Status on File) Date Activated Date Inactivated Comments 12/04/2022 10:10 PM 12/08/2022 3:55 PM This order re flects the patients wishes and were consensually agreed upon. Question Answer Comments Discussion of Advance Directives occurred with: Patient Care Teams Refrigeration Tech Relationship Specialty Start Date End Date Kristine Kan DO [address] [place] [address] PCP - General Family Medicine 03/16/24 documented as of this encounter
--- OUTSIDE RECORDS SUMMARY | 2024-06-06 23:33 | External Medical Summary ---
Author Name Unknown Address Unknown Organization K09:[facility] [address] [place] [address] Laboratory Report Ordering Provider Test Date Status TASHA MANN 05/15/2024 11:17:53 Final Observation Date Value Abnormality Reference (Units ) Status BUN 05/15/2024 11:17:53 25 Above high normal 6-20 (mg/dL) Final Creatinine 05/15/2024 11:17:53 1.7 Above high normal 0.5-1.0 (mg/dL) Final Glomerular filtration rate/1.73 sq M.predicted [Volume Rate/Area] in Serum, Plasma or Blood by Creatinine-based formula (CKD-EPI) 05/15/2024 11:17:53 31 Below low normal >=60 (mL/min) Final eGFR is calculated based on the CKD-EPI 2020 equation. Sodium 05/15/2024 11:17:53 138 135-146 (m mol/L) Final Potassium 05/15/2024 11:17:53 4.0 3.5-5.1 (m mol/L) Final Cl 05/15/2024 11:17:53 105 98-107 (mm ol/L) Final CO2 05/15/2024 11:17:53 21 Below low normal 22- 32 (mmol/L) Final Anion gap 05/15/2024 11:17:53 12 7-15 (mmol /L) Final Glucose 05/15/2024 11:17:53 109 70-120 (mg /dL) Final Albumin 05/15/2024 11:17:53 3.6 Below low normal 3.8 -5.0 (g/dL) Final AST (Aspartate aminotransferase) 05/15/2024 11:17:53 8 Below low normal 10-35 (U/L) Final Alk Phos 05/15/2024 11:17:53 78 35-130 (U/ L) Final Bilirubin, Total 05/15/2024 11:17:53 0.3 <=1 .2 (mg/dL) Final Calcium 05/15/2024 11:17:53 9.6 8.4-10.2 ( mg/dL) Final Protein 05/15/2024 11:17:53 6.7 6.0-8.3 (g /dL) Final ALT (Alanine aminotransferase) 05/15/2024 11:17:53 <5 Below low normal 10-35 (U/L) Final Performing Location [facility] [place] [address]
--- OUTSIDE RECORDS SUMMARY | 2024-06-06 23:33 | External Medical Summary | Summary of Care ---
Author Name Unknown Organization [facility] Address [address] [place] [address] Phone [phone] Care Team Providers Care Sciences Dean Name Role Phone Kristine Kan Primary Care Provider [phone] Reason for Visit * Reason Comments Chemotherapy Leucovorin, 5fu Medication Administration Vitamin B12 * Episode Based Medications (Routine) - Authorized Specialty Diagnoses / Procedures Referred By Contac t Referred To Contact Diagnoses Carcinoma of gallbladder (HCC) Encounter for antineoplastic chemotherapy Procedures ME LEUCOVORIN CALCIUM INJECTION ME PALONOSETRON HCL ME FLUOROURACIL INJECTION ME OXALIPLATIN Hardik Gross MD [address] [place] [address] [place] [address] Anc Hem/Onc [address] [address] Referral ID Status Reason Start Date Expiration Date V isits Requested Visits Authorized [id number] Authorized 12/14/2023 12/13/2024 999 999 Encounter Details Date Type Department Care Team (Latest Contact Info) Description 04/12/2024 2:00 PM EDT Hem/Onc Treatment Hematology/Oncolog y Treatment, [address] [phone] Jessica, Chair 4 Hem Onc [address] [place] [address] Carcinoma of gallbladder (HCC)*; Encounter for antineoplastic chemotherapy; B12 deficiency Allergies Active Allergy Reactions Criticality Noted Date Comments Latex Rash 06/28/2018 From a dressing Sulfamethoxazole Edema face/lips/tongue High 023 Trimethoprim Edema face/lips/tongue High 12/03/2022 documented as of this encounter (statuses as of 05/11/2024) Medications Medication Sig Dispensed Refills Start Date [...] 05, 2024. 60 Tablet 5 04/05/2024 Active Atenolol 25 MG Oral Tablet (Tenormin)Indicat ions:HTN, goal below 140/90 Take 1 Tablet by mouth in the morning. 90 Tablet 3 12/29/2023 05/08/2024 Discontinued Hospital, Clinic, or Other Facility Administered Medication Ordered Dose Route Frequency Start Date End Date Status vitamin b-12 (Cyanocobalamin) inj 1,000 mcgIndications:Vitamin B 12 deficiency 1000 mcg IM [id number] 09/02/2023 08/03/2024 Active documented as of this encounter (statuses as of 05/11/2024) Active Problems Problem Noted Date Diagnosed Date [...] as of this encounter (statuses as of 05/11/2024) Resolved Problems Problem Noted Date Diagnosed Date [...] as of this encounter (statuses as of 05/11/2024) Immunizations Name Administration Dates Next Due COVID-19 [...] Adult, 10 Mg/ml, Im (PreHevBrio) 01/04/2008,07/06/2007,06/01/2007 PPD 08/24/2007,01/26/2006,07/17/2003 Pneumococcal Conjugate Vacc, 13 Valent (Prevnar) 02/04/2017 [...] Split, I IV3, With Preserve, Inj 06/05/2014,06/21/2012,07/23/2011,07/05,06/14/2009,07/18/2008,07/06/20 07,07/17/2003 TD - Tetanus/Diptheria (ADULT) 09/30/1998 TD, Preservative Free 02/08/2020 TDAP (age 9 [...] Sign Reading Time Taken Comments Blood Pressure 125/80 04/12/2024 2:00 PM EDT Pulse 74 04/12/2024 2:00 PM EDT Temperature 37.1 C (98.8 F) 04/12/2024 2:00 PM ED T Respiratory Rate 18 04/12/2024 2:00 PM EDT Oxygen Saturation 97% 04/12/2024 2:00 PM EDT Inhaled Oxygen Concentration - - Weight 74 kg (163 lb 3.2 oz) 04/12/2024 2:00 PM EDT Height - - Body Mass Index 27.16 04/04/2024 3:26 PM EDT documented in this [...] Nursing Notes * Kamila Guadalupe RN - 04/12/2024 3:03 PM EDT Goals: Patient will remain free from injury. Possible barriers to meeting goals: Fall risk d/t ambulation with IV pole. Stability of the patient: Moderately unstable - medium risk of patient condition declining or worsening Summary regarding today's goals: Met: Patient remained free of injury. Patient was connected to 5fu home infusion CAAD pump, all clamps were opened to ensure adequate medication administration. Patient tolerated infusion well. Discharged in stable condition. * Kamila Guadalupe RN - 04/12/2024 2:27 PM EDT Chair 8. Patient arrived for leucovorin, and 5fu. Patient was seen by Dr. Gross yesterday, per Dr. Gross ok for treatment today. Patient states is feeling much better than she has been. Patient was having issues walking without support and is now able to walk without help. VAD accessed. Chemotherapy/Immunotherapy agents: 5FU and LEUCOVORIN Consent for chemotherapy drug treatment complete, dated, and signed? yes, date - 12/14/23 Treatment lab parameters met? Yes Has treatment weight changed > than 10%? No Treatment preauthorized? Yes VITALS Filed Vitals: 04/12/24 1400 BP: 125/80 Pulse: 74 Resp: 18 Temp: 37.1 C (98.8 F) TempSrc: Tympanic SpO2: 97% Weight: 74 kg (163 lb 3.2 oz) Urine protein: N/A Patient education completed for treatment? Yes Blood transfusion consent signed and complete? NA Return appointment scheduled? Yes Patient had provider visit today? No - If no provider visit must complete Pretreatment Assessment Functional Status: Functional status at today's visit: Ambulatory and capable of all selfcare but unable to carry out any work activities. Up and about more than 50% of waking hours The drug name, dose, infusion volume, rate and route of administration, expiration date and time, appearance and physical integrity of the drug and rate set on the pump and sequencing of drug administration (as applicable) were verified by me and second sign-in RN. Patient was assessed for symptoms or adverse side effects during treatment. PRE-TREATMENT ASSESSMENT: NEURO: numbness or tingling: in feet but has remained stable since removing oxaliplatin , weakness of legs, arms, or face: see above note, and fatigue:patient states does get fatigued easily. CV/RESP: denies symptoms GI/: constipation: yes, resolves with Miralax. OTHER: denies any additional symptoms PAIN: 0 Safety and Risk for Injury Patient will remain free from injury. Ensure appropriate safety devices are available. Provide and maintain safe environment. * Jose Pineda RN - 04/11/2024 3:[address] Gross met with patient 04/11. Pt may receive treatment 04/12. documented in this encounter Plan of Treatment Upcoming Encounters Date Type Department Care Team (Late st Contact Info) Description 05/15/2024 11:10 AM EDT Laboratory Laboratory [facility] [address] [place] [address] [facility] 200 [facility] [place] [address] 05/16/2024 2:30 PM EDT Hem/Onc Treatment Hematology/Oncology Treatment, [place] [address] [place] [address] 06/08/2024 11:00 AM EDT Imaging Radiology [facility] 1st [facility] [address] [facility] [place] [address] 07/10/2024 1:00 PM EDT Office Visit Family Practice [address], [place] [address] [place] [phone] Kristine Kan DO [address] [facility] [address] Health Maintenance Due Date Last Done Comments Adult Wellness Visit 2015 COVID-19 Vaccine ( season) 2024 11/08/2023, 07/10/2022, 01/06/2022, Additional history exists Influenza Vaccine (FLU shot) (#1) 2024 06/30/2023, 07/18/2022, 05/18/2021, Additional history exists Albumin/Creatinine Ratio 09/02/2024 09/02/2023, 08/0 10/2021 GFR 11/02/2024 05/02/2024, 07/2 12/2023, 04/10/2024, Additional history exists Depression Monitoring 11/09/2024 11/09/2023 CKD PHOS USE SMARTSET 97575 11/25/2024 11/25/2023, 0 12/05/2022 HbA1c 11/25/2024 11/25/2023, 11/04, 05/04/2022, Additional history exists CKD HGB USE SMARTSET 92357 05/02/202505/02, 05/02/2024, 04/25/2024, Additional history exists DXA Scan 12/16/2028 12/16/2021, [...] this encounter Medical Devices Implanted Type Area Mobility Developer Device Identifier Shelf Expiration Date Model / Serial / Lot Lens Intraoc 21.5 - [id number] - [id number] Implanted:Qty: 1 on 07/27/2019 by Tristian Araujo MD at OR [facility] Left: Eye [employer] 04/02/2024 [id number] / [id number] / [id number] Lens Intraoc 21.5 - [id number] - [id number] Implanted:Qty: 1 on 08/08/2019 by Tristian Araujo MD at OR [facility] Right: Eye [employer] LOMB 04/02/2024 [id number] / [id number] / [id number] Stent Axios [id number] - [id number] Implanted:Qty: 1 on 12/07/2022 by Tanya Morris MD at OR [facility] N/A: Abdomen [employer] : ENDOSCOPY [id number] 08/25/2023 [id number] / / [id number] Stent Bili Pigtail 7fr 100mm - [id number] Implanted:Qty: 1 on 12/07/2022 by Tanya Morris MD at OR [facility] N/A: Abdomen [employer] [id number] 08/03/2025 PBD-1033-0 710 / / 2YK Stent Bili Pigtail 7fr 100mm - [id number] Implanted:Qty: 1 on 12/07/2022 by Tanya Morris MD at OR [facility] N/A: Abdomen [employer] [id number] 08/03/2025 PBD-1033-0 710 / / 2YK Power Port 8fr Sngl Lumen Plas - [id number] Implanted:Qty: 1 on 12/29/2022 by Landon Hickman DO at OR [facility] Right: Chest CR BARD : PERIPHERAL VASCULAR [id number] 12/02/2023 [id number] / / [id number] Hanarostent Noncover 10dm 10cm - [id number] Implanted:Qty: 1 on 02/19/2023 by Tanya Morris MD at OR [facility] [employer] [id number] 12/31/2024 [facility]-10-100 -180 / / [id number] documented as of this encounter Visit Diagnoses Diagnosis Carcinoma of gallbladder (HCC)- Primary Malignant neoplasm of gallbladder Encounter for antineoplastic chemotherapy B12 deficiency Other B-complex deficiencies documented in this encounter Administered Medications Inactive [...] solution and volume., ONCE, 1 dose, On Wed04/12/24 at 1315 Start Infusion 04/12/2024 1:00 PM EDT 4,475 mg 3 mL/hr Fluorouracil (5-Fu) inj 750 mg 750 mg (rounded from 744 mg = 400 mg/m2 1.86 m2 Treatment Plan BSA from Recorded weight), IV Push, ONCE, 1 dose, On Wed04/12/24 at 1445 Given 04/12/2024 2:56 PM EDT 750 mg leucovorin calcium 750 mg in D5W 250 mL INFUSION 750 mg (rounded from 744 mg = 400 mg/m2 1.86 m2 Treatment Plan BSA from Recorded weight), IV Piggyback, ONCE, 1 dose, On Wed04/12/24 at 1445, Administer over 30 Minutes, Before 5-FU Start Infusion 04/12/2024 2:19 PM EDT 750 mg 510 mL/hr NSS infusion FOR HYDRATION Intravenous, at 50 mL/hr Administer over 10 Hours, PRN, Starting on Wed04/12/24 at 1404, Until Wed04/12/24 at 1905 Start Infusion 04/12/2024 2:18 PM EDT 500 mL 50 mL/hr ondansetron (Zofran) tab 8 mg 8 mg, Oral, ONCE, On Wed04/12/24 at 1445, For 1 dose Given 04/12/2024 2:18 PM EDT 8 mg sodium chloride 0.9 % flush central line 10 mL 10 mL, IV Push, PRN Other, IV Flush, Starting on Wed04/12/24 at 1404, Until Wed04/12/24 at 1905, For 24 hours, Do not flush if lock, PICC, or central line not in place; IV infusing or unable to flush. Given 04/12/2024 2:56 PM EDT 10 mL vitamin b-12 (Cyanocobalamin) inj 1,000 mcg 1,000 mcg, Intramuscular, ONCE, On Wed04/12/24 at 1530, For 1 dose Given 04/12/2024 2:54 PM EDT 1,000 mcg Arm Right Upper documented in this encounter Advance Directives * Full Code (Latest Code Status on File) Date Activated Date Inactivated Comments 12/04/2022 10:10 PM 12/08/2022 3:55 PM This order re flects the patients wishes and were consensually agreed upon. Question Answer Comments Discussion of Advance Directives occurred with: Patient Care Teams Sciences Dean Relationship Specialty Start Date End Date Kristine Kan DO [address] [place] [address] PCP - General Family Medicine 03/16/24 documented as of this encounter
--- OUTSIDE RECORDS SUMMARY | 2024-06-06 23:33 | External Medical Summary ---
Author Name Unknown Address Unknown Organization K09:[facility] [place] [address] Laboratory Report Ordering Provider Test Date Status TASHA MANN 05/15/2024 11:17:53 Final Observation Date Value Abnormality Reference (Units ) Status SYNC LEUKOCYTES IN BLOOD BY AUTOMATED COUNT 05/15/2024 11:17:53 5.96 4.00-10.80 (K/uL) Final Segs 05/15/2024 11:17:53 54.4 40.0-75.0 (%) Final Lymphs % 05/15/2024 11:17:53 36.7 18.0-42.0 (%) Final Monos 05/15/2024 11:17:53 6.0 1.0-11.0 (%) Final Eosinophils 05/15/2024 11:17:53 2.7 0.0-6.0 (%) Final Basos 05/15/2024 11:17:53 0.2 0.0-2.0 (%) Final Absolute Segs 05/15/2024 11:17:53 3.24 1.80-7.70 (K/uL) Final Lymphs, absolute 05/15/2024 11:17:53 2.19 1.00-4.80 (K/ul) Final Monos, Abs 05/15/2024 11:17:53 0.36 0.00-1.10 (K/uL) Final Eos, Abs 05/15/2024 11:17:53 0.16 0.00-0.70 (K/uL) Final Basos, Abs 05/15/2024 11:17:53 0.01 0.00-0.20 (K/uL) Final Performing Location [facility] [place] [address]
--- OUTSIDE RECORDS SUMMARY | 2024-06-06 23:33 | External Medical Summary | Summary of Care ---
Author Name Unknown Organization [facility] Address [address] [place] [address] Phone [phone] Care Team Providers Care Ornament Setter Name Role Phone Kristine Kan Primary Care Provider [phone] Reason for Visit * Reason Onset Date Comments Test Results Lab 05/24/2024 Encounter Details Date Type Department Care Team (Late st Contact Info) Description 05/24/2024 Telephone Hematology/Oncology Treatment, [place] [address] [place] [address] Hardik Gross MD [address] [place] [address] Test Results Lab Allergies Active Allergy Reactions Criticality Noted Date [...] Tablet Therapy Pack (Eliquis DVT/PE Starter Pack)Indications:Ac [place] 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 [...] mcgIndications:Vitamin B 12 deficiency 1000 mcg IM [id number] 09/02/2023 08/03/2024 Active documented as of this [...] Telephone Encounter - Muriel Damon RN - 05/24/2024 11:31 AM EDT Hgb 7.8 Called patient, she states that she is feeling ok, does not feel she needs transfusion. Advised herto repeat lab work again next week as scheduled. She verbalized understanding. documented in this encounter Plan of Treatment Upcoming Encounters Date Type Department Care Team (Late st Contact Info) Description 05/29/2024 11:10 AM EDT Laboratory Laboratory [address] [place] [address] [place] [address] [address] [facility] [place] [id number] 05/30/2024 11:00 AM EDT Hem/Onc Treatment Hematology/Oncology Treatment, [place] 200 [facility] [place] [phone] Jessica, Chair 3 Hem Onc Scen[address] [place], [place] [address] 06/08/2024 11:00 AM EDT Imaging Radiology [address], [place] [address] [place] [address] 06/12/2024 10:30 AM EDT Laboratory Laboratory [facility] [place] [address] [place] [phone] Jessica, Lab Scenery [address] [place] [address] 06/12/2024 11:00 AM EDT Office Visit Hematology/Oncology [facility] [place] [address] [place] [phone] Hardik Gross MD [address] [place] [address] 06/13/2024 11:00 AM EDT Hem/Onc Treatment Hematology/Oncology Treatment, [place] [address] [place], [place] [phone] Jessica, Chair 9 Hem Onc Scenery [address] [place], [place] [address] 07/10/2024 1:00 PM EDT Office Visit Family Practice [address], [place] 293 [facility], [place] [address] Kristine Kan DO 293 [facility], [place] [address] Health Maintenance Due Date Last Done Comments Adult Wellness Visit 2015 COVID-19 Vaccine (2022- season) 2024 11/08/2023, 07/10/2022, 01/06/2022, Additional history exists Influenza Vaccine (FLU shot) (#1) 2024 06/30/2023, 07/18/2022, 05/18/2021, Additional history exists Albumin/Creatinine Ratio 09/02/2024 09/02/2023, 08/0 10/2021 Depression Monitoring 11/09/2024 11/09/2023 GFR 11/15/2024 05/15/2024, 07, 04/25/2024, Additional history exists CKD PHOS USE SMARTSET 35969 11/25/2024 11/25/2023, 0 12/05/2022 HbA1c 11/25/2024 11/25/2023, 11/04, 05/04/2022, Additional history exists CKD HGB USE SMARTSET 62661 05/24/202505/24, 05/24/2024, 05/15/2024, Additional history exists DXA [...] this encounter Medical Devices Implanted Type Area Tube Dispatcher Device Identifier Shelf Expiration Date Model / Serial / Lot Lens Intraoc 21.5 - [id number] - [id number] Implanted:Qty: 1 on 07/27/2019 by Tristian Araujo MD at OR [facility] Left: Eye [employer]US[employer] LOMB 04/02/2024 [id number] / [id number] / [id number] Lens Intraoc 21.5 - [id number] - [id number] Implanted:Qty: 1 on 08/08/2019 by Tristian Araujo MD at OR [facility] Right: Eye BAUSCH & LOMB 04/02/2024 [id number] / [id number] / [id number] Stent Axios [id number] - [id number] Implanted:Qty: 1 on 12/07/2022 by Tanya Morris MD at OR [facility] N/A: Abdomen [employer] : ENDOSCOPY [id number] 08/25/2023 [id number] / / [id number] Stent Bili Pigtail 7fr 100mm - [id number] Implanted:Qty: 1 on 12/07/2022 by Tanya Morris MD at OR [facility] N/A: Abdomen [employer] [id number] 08/03/2025 PBD-1033-0 710 / / [id number] Stent Bili Pigtail 7fr 100mm - [id number] Implanted:Qty: 1 on 12/07/2022 by Tanya Morris MD at OR [facility] N/A: Abdomen [employer] [id number] 08/03/2025 PBD-1033-0 710 / / 2YK Power Port 8fr Sngl Lumen Plas - [id number] Implanted:Qty: 1 on 12/29/2022 by Landon Hickman DO at OR [facility] Right: Chest CR BARD : PERIPHERAL VASCULAR [id number] 12/02/2023 [id number] / / [id number] Hanarostent Noncover 10dm 10cm - [id number] Implanted:Qty: 1 on 02/19/2023 by Tanya Morris MD at OR [facility] [employer] [id number] 12/31/2024 SHS-10-100 -180 / / [id number] documented as of this encounter Advance Directives * Full Code (Latest Code Status on File) Date Activated Date Inactivated Comments 12/04/2022 10:10 PM 12/08/2022 3:55 PM This order re flects the patients wishes and were consensually agreed upon. Question Answer Comments Discussion of Advance Directives occurred with: Patient Care Teams Ornament Setter Relationship Specialty Start Date End Date Kristine Kan DO [facility] [place] [address] PCP - General Family Medicine 03/16/24 documented as of this encounter
--- OUTSIDE RECORDS SUMMARY | 2024-06-06 23:33 | External Medical Summary ---
Author Name Unknown Address Unknown Organization K09:[facility] [place] [address] Laboratory Report Ordering Provider Test Date Status TASHA MANN 05/24/2024 10:32:52 Final Observation Date Value Abnormality Reference (Units ) Status SYNC LEUKOCYTES IN BLOOD BY AUTOMATED COUNT 05/24/2024 10:32:52 5.62 4.00-10.80 (K/uL) Final Segs 05/24/2024 10:32:52 40.2 40.0-75.0 (%) Final Lymphs % 05/24/2024 10:32:52 47.2 Above high normal 18.0-42.0 (%) Final Monos 05/24/2024 10:32:52 8.0 1.0-11.0 (%) Final Eosinophils 05/24/2024 10:32:52 4.4 0.0-6.0 (%) Final Basos 05/24/2024 10:32:52 0.2 0.0-2.0 (%) Final Absolute Segs 05/24/2024 10:32:52 2.26 1.80-7.70 (K/uL) Final Lymphs, absolute 05/24/2024 10:32:52 2.65 1.00-4.80 (K/ul) Final Monos, Abs 05/24/2024 10:32:52 0.45 0.00-1.10 (K/uL) Final Eos, Abs 05/24/2024 10:32:52 0.25 0.00-0.70 (K/uL) Final Basos, Abs 05/24/2024 10:32:52 0.01 0.00-0.20 (K/uL) Final Performing Location [facility] [place] [address]
--- OUTSIDE RECORDS SUMMARY | 2024-06-06 23:33 | External Medical Summary | Summary of Care ---
Author Name Unknown Organization [facility] Address [address] [place] [address] Phone [phone] Care Team Providers Care Senior Compliance Analyst Name Role Phone Kristine Kan Primary Care Provider [phone] Reason for Visit * Reason Onset Date Comments Test Results 05/15/2024 Encounter Details Date Type Department Care Team (Late st Contact Info) Description 05/15/2024 Telephone Hematology/Oncology Treatment, [place] [address] [place] [address] Hardik Gross MD [address] [place] [address] Test Results Allergies Active Allergy Reactions Criticality Noted Date Comments Latex Rash 06/28/2018 From a dressing Sulfamethoxazole Edema face/lips/tongue High 023 Trimethoprim Edema face/lips/tongue High 12/03/2022 documented as of this encounter (statuses as of 05/16/2024) Medications Medication Sig Dispensed Refills Start Date [...] Tablet Therapy Pack (Eliquis DVT/PE Starter Pack)Indications:Ac [place] 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 [...] mcgIndications:Vitamin B 12 deficiency 1000 mcg IM [id number] 09/02/2023 08/03/2024 Active documented as of this encounter (statuses as of 05/16/2024) Active Problems Problem Noted Date Diagnosed Date [...] IA(T1c, N0, M0) - Signed by Rigoberto Gonzlaez MD on 06/02/2017 Hypothyroidism 07/28/2011 HTN, goal below 140/90 08/10/2007 Restless leg syndrome 08/14/2005 ADVANCE DIRECTIVE INFORMATION 07/01/2005 Overview: No, Advance Directive brochure offered , patient declined. 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 Overview: ICD-10 update of inactive term documented as of this encounter (statuses as of 05/16/2024) Resolved Problems Problem Noted Date Diagnosed Date [...] as of this encounter (statuses as of 05/16/2024) Immunizations Name Administration Dates Next Due COVID-19 [...] as of this encounter Miscellaneous Notes * Addendum Note - Muriel Damon RN - 05/16/2024 3:06 PM EDTAddended by: MURIEL DAMON on: 05/16/2024 03:06 PM Modules accepted: Orders * Telephone Encounter - Muriel Damon RN [...] Description 06/08/2024 11:00 AM EDT Imaging Radiology [facility] 1st [facility], [place] 132 [facility] [place] [address] 07/10/2024 1:00 PM EDT Office Visit Family Practice [address], [place] 293 [place] [address] Kristine Kan DO 293 [place] [address] Scheduled Orders Name Type Priority Associated Diagnoses Orde r Schedule CBC WITH WBC DIFFERENTIAL Lab STAT Carcinoma of gallbladder (HCC) Expected: 05/23/2024 (Approximate), Expires: 05/16/2025 Health Maintenance Due Date Last Done Comments Adult Wellness Visit 2015 COVID-19 Vaccine ( season) 2024 11/08/2023, 07/10/2022, 01/06/2022, Additional history exists Influenza Vaccine (FLU shot) (#1) 2024 06/30/2023, 07/18/2022, 05/18/2021, Additional history exists Albumin/Creatinine Ratio 09/02/2024 09/02/2023, 08/0 10/2021 Depression Monitoring 11/09/2024 11/09/2023 GFR 11/15/2024 05/15/2024, 07/, 04/25/2024, Additional history exists CKD PHOS USE SMARTSET 76438 11/25/2024 11/25/2023, 0 12/05/2022 HbA1c 11/25/2024 11/25/2023, 11/04, 05/04/2022, Additional history exists CKD HGB USE SMARTSET 08113 05/15/202505/15, 05/15/2024, 05/02/2024, Additional history exists DXA [...] this encounter Medical Devices Implanted Type Area Senior Electrical Engineer Device Identifier Shelf Expiration Date Model / Serial / Lot Lens Intraoc 21.5 - [id number] - [id number] Implanted:Qty: 1 on 07/27/2019 by Tristian Araujo MD at OR [facility] Left: Eye BAUSCH & LOMB 04/02/2024 [id number] / [id number] / [id number] Lens Intraoc 21.5 - [id number] - [id number] Implanted:Qty: 1 on 08/08/2019 by Tristian Araujo MD at OR [facility] Right: Eye BAUSCH & LOMB 04/02/2024 [id number] / [id number] / [id number] Stent Axios [id number] - [id number] Implanted:Qty: 1 on 12/07/2022 by Tanya Morris MD at OR [facility] N/A: Abdomen [employer] : ENDOSCOPY [id number] 08/25/2023 [id number] / / [id number] Stent Bili Pigtail 7fr 100mm - [id number] Implanted:Qty: 1 on 12/07/2022 by Tanya Morris MD at OR [facility] N/A: Abdomen [employer] [id number] 08/03/2025 PBD-1033-0 710 / / 2YK Stent Bili Pigtail 7fr 100mm - [id number] Implanted:Qty: 1 on 12/07/2022 by Tanya Morris MD at OR [facility] N/A: Abdomen [employer] [id number] 08/03/2025 PBD-1033-0 710 / / 2YK Power Port 8fr Sngl Lumen Plas - [id number] Implanted:Qty: 1 on 12/29/2022 by Landon Hickman DO at OR [facility] Right: Chest CR BARD : PERIPHERAL VASCULAR [id number] 12/02/2023 [id number] / / [id number] Hanarostent Noncover 10dm 10cm - [id number] Implanted:Qty: 1 on 02/19/2023 by Tanya Morris MD at OR [facility] [employer] [id number] 12/31/2024 SHS-10-100 -180 / / [id number] documented as of this encounter Visit Diagnoses [...] Advance Directives occurred with: Patient Care Teams Senior Compliance Analyst Relationship Specialty Start Date End Date Kristine Kan DO [address] [facility] [place] [address] PCP - General Family Medicine 03/16/24 documented as of this encounter
--- OUTSIDE RECORDS SUMMARY | 2024-06-06 23:33 | External Medical Summary | Summary of Care ---
Author Name Unknown Organization [facility] Address [address] [place] [address] Phone [phone] Care Team Providers Care Tip Cementer Name Role Phone Kristine Kan Primary Care Provider [phone] Reason for Visit * Reason Comments Chemotherapy C9/D1 - Leucovorin, 5FU Medication Administration B12 * Episode Based Medications (Routine) - Authorized Specialty Diagnoses / Procedures Referred By Contac t Referred To Contact Diagnoses Carcinoma of gallbladder (HCC) Encounter for antineoplastic chemotherapy Procedures [place] LEUCOVORIN CALCIUM INJECTION TN PALONOSETRON HCL [place] FLUOROURACIL INJECTION TN OXALIPLATIN Hardik Gross MD [address] [place] [address] Anc Hem/Onc [address] [address] Referral ID Status Reason Start Date Expiration Date V isits Requested Visits Authorized [id number] Authorized 12/14/2023 12/13/2024 999 999 Encounter Details Date Type Department Care Team (Latest Contact Info) Description 05/16/2024 2:30 PM EDT Hem/Onc Treatment Hematology/Oncolog y Treatment, [address] [address] Carcinoma of gallbladder (HCC)*; Encounter for [...] mcgIndications:Vitamin B 12 deficiency 1000 mcg IM [id number] 09/02/2023 08/03/2024 Active documented as of this [...] Sign Reading Time Taken Comments Blood Pressure 114/74 05/16/2024 3:06 PM EDT Pulse 80 05/16/2024 3:06 PM EDT Temperature 36.7 C (98 F) 05/16/2024 3:06 PM EDT Respiratory Rate 18 05/16/2024 3:06 PM EDT Oxygen Saturation 97% 05/16/2024 3:06 PM EDT Inhaled Oxygen Concentration - - Weight 72 kg (158 lb 12.8 oz) 05/16/2024 3:06 PM EDT Height - - Body Mass Index 26.43 05/08/2024 2:31 PM EDT documented in this [...] shopping? (15 years old or older) No 03/03/20 23 Cognitive Status Response Date of Assessm ent Because of a physical, menta l, or emotional condition, do you have serious difficulty concentrating, remembering, or making decisions? (5 years old or older) No 12/04/2022 documented as of this encounter Nursing Notes * Gabriela Patino RN - 05/16/2024 5:04 PM EDT Goals: Patient will remain free from injury. Possible barriers to meeting goals: ambulating with IV pole Stability of the patient: Moderately stable - low risk of patient condition declining or worsening Summary regarding today's goals: Met: pt remained free of harm today Patient tolerated treatment well without any acute issues or problems. Patient left facility in stable condition and denied any further needs. * Gabriela Patino RN - 05/16/2024 4:59 PM EDT Chair 10. Port accessed, no issues. Hgb was 7.6 yesterday -- see previous TE in chart, okay for tx and patient does not wish to proceedwith blood transfusion and she is feeling well today. CBCD will be rechecked next Wednesday to assess labs following this chemo cycle. B12 injection due today -- administered per order. Chemotherapy/Immunotherapy agents: 5FU and LEUCOVORIN Consent for chemotherapy drug treatment complete, dated, and signed? yes, date - 12/14/2023 Treatment lab parameters met? Yes Has treatment weight changed > than 10%? No Treatment preauthorized? Yes VITALS Filed Vitals: 05/16/24 1506 BP: 114/74 Pulse: 80 Resp: 18 Temp: 36.7 C (98 F) TempSrc: Tympanic SpO2: 97% Weight: 72 kg (158 lb 12.8 oz) Urine protein: N/A Patient education completed for treatment? Yes Blood transfusion consent signed and complete? NA Return appointment scheduled? Yes Patient had provider visit today? No - If no provider visit must complete Pretreatment Assessment Functional Status: Functional status at today's visit: Restricted in physically strenuous activity but ambulatory and able to carry out work on a light orsedentary nature, e.g. light house work, office work The drug name, dose, infusion volume, rate [...] potential boyd while using the heat function. PRE-TREATMENT ASSESSMENT: NEURO: numbness or tingling: in feet, mostly numb, feels about the same, no redness or tenderness on bottoms of feet or hands and fatigue:usually following chemo txs but none at this time, overall feeling well today CV/RESP: denies symptoms GI/: nausea: mild, managed with PRN meds at home and constipation: managed with miralax at home, taking Miralax gummies now which seem to help keep pt regular OTHER: denies any additional symptoms PAIN: 0 Safety and Risk for Injury Patient will remain free from injury. Ensure appropriate safety devices are available. Provide and maintain safe environment. * Muriel Damon RN - 05/15/2024 1:05 PM EDT See TE from todays date- per za Stone for treatment. documented in this encounter Plan of Treatment Upcoming Encounters Date Type Department Care Team (Late st Contact Info) Description 05/18/2024 2:00 PM EDT Immunization/Injectio n Hematology/Oncology Treatment, [place] [address] [place] [address] Chair Jessica 8 Hem Onc [address] [place] [address] 05/24/2024 10:30 AM EDT Laboratory Laboratory [facility] Jessica [address] [place] [phone] Jessica, Lab Scenery [address] [place], [place] [address] 05/29/2024 11:10 AM EDT Laboratory [facility] [place] [address] [place] [phone] Jessica, Lab Scenery [address] [place], [place] [address] 05/30/2024 11:00 AM EDT Hem/Onc Treatment Hematology/Oncology Treatment, [place] 200 [facility], [place] [phone] Jessica, Chair 2 Hem Onc Scenery [address] [place] [address] 06/08/2024 11:00 AM EDT Imaging Radiology [facility]st [facility], [place] 132 [facility] [place] [address] 06/12/2024 11:00 AM EDT Laboratory Laboratory [facility] [place] [address] [place] [phone] Jessica, Lab Scenery [address] [place], [place] [address] 06/13/2024 11:00 AM EDT Hem/Onc Treatment Hematology/Oncology Treatment, [place] 200 [facility], [place] [phone] Jessica, Chair 9 Hem Onc Scenery [address] [place], [place] [address] 07/10/2024 1:00 PM EDT Office Visit Family Practice [address], [place] 293 [place] [phone] Kristine Kan DO 293 [facility], [place] [address] Health Maintenance Due Date Last Done Comments Adult Wellness Visit 2015 COVID-19 Vaccine ( season) 2024 11/08/2023, 07/10/2022, 01/06/2022, Additional history exists Influenza Vaccine (FLU shot) (#1) 2024 06/30/2023, 07/18/2022, 05/18/2021, Additional history exists Albumin/Creatinine Ratio 09/02/2024 09/02/2023, 08/0 10/2021 Depression Monitoring 11/09/2024 11/09/2023 GFR 11/15/2024 05/15/2024, 04/05, 04/25/2024, Additional history exists CKD PHOS USE SMARTSET 67948 11/25/2024 11/25/2023, 0 12/05/2022 HbA1c 11/25/2024 11/25/2023, 11/04, 05/04/2022, Additional history exists CKD HGB USE SMARTSET 31388 05/15/202505/15, 05/15/2024, 05/02/2024, Additional history exists DXA [...] this encounter Medical Devices Implanted Type Area Team Cdl Driver Device Identifier Shelf Expiration Date Model / Serial / Lot Lens Intraoc 21.5 - [id number] - [id number] Implanted:Qty: 1 on 07/27/2019 by Tristian Araujo MD at OR [facility] Left: Eye BAUSCH [employer] LOMB 04/02/2024 [id number] / [id number] / [id number] Lens Intraoc 21.5 - [id number] - [id number] Implanted:Qty: 1 on 08/08/2019 by Tristian Araujo MD at OR [facility] Right: Eye BAUSCH & LOMB 04/02/2024 [id number] / [id number] / [id number] Stent Axios [id number] - [id number] Implanted:Qty: 1 on 12/07/2022 by Tanya Morris MD at OR [facility] N/A: Abdomen [employer] : ENDOSCOPY [id number] 08/25/2023 [id number] / / [id number] Stent Bili Pigtail 7fr 100mm - [id number] Implanted:Qty: 1 on 12/07/2022 by Tanya Morris MD at OR [facility] N/A: Abdomen [employer] [id number] 08/03/2025 PBD-1033-0 710 / / [id number] Stent Bili Pigtail 7fr 100mm - [id number] Implanted:Qty: 1 on 12/07/2022 by Tanya Morris MD at OR [facility] N/A: Abdomen [employer] [id number] 08/03/2025 PBD-1033-0 710 / / 2YK Power Port 8fr Sngl Lumen Plas - [id number] Implanted:Qty: 1 on 12/29/2022 by Landon Hickman DO at OR [facility] Right: Chest CR BARD : PERIPHERAL VASCULAR [id number] 12/02/2023 [id number] / / [id number] Hanarostent Noncover 10dm 10cm - [id number] Implanted:Qty: 1 on 02/19/2023 by Tanya Morris MD at OR [facility] [employer] [id number] 12/31/2024 SHS-10-100 -180 / / [id number] documented as of this encounter Visit Diagnoses Diagnosis Carcinoma of gallbladder (HCC)- Primary Malignant neoplasm of gallbladder Encounter for antineoplastic chemotherapy B12 deficiency Other B-complex deficiencies documented in this encounter Administered Medications Active Administered Medications - up to 3 most recent administrations Medication Order MAR Action Action Date Dose Rate Site diphenhydrAMINE (Benadryl) inj 50 mg 50 mg, IV Push, ONCE PRN Other, Hypersensitivity Reaction, Starting on Wed05/16/24 at 1506, Until Wed05/17/24 at 1505, For 24 hours EPINEPHrine 1 MG/ML inj 0.3 mg 0.3 mg, Intramuscular, ONCE PRN Other, Hypersensitivity Reaction or Anaphylaxis, Starting on Wed05/16/24 at 1506, Until Wed05/17/24 at 1505, For 24 hours hEParin 100 UNIT/ML Lock Flush inj 500 Units 500 Units (5 mL), IV Lock, PRN Other, IV Flush, Starting on Wed05/16/24 at 1506, Until Wed05/17/24 at 1505, For 24 hours, Do not flush if lock, PICC, or central line not in place; IV infusing or unable to flush. Hydrocortisone Sod Suc (PF) (Solu-Cortef) inj 100 mg 100 mg, IV Push, ONCE PRN Other, Hypersensitivity Reaction, Starting on Wed05/16/24 at 1506, Until Wed05/17/24 at 1505, For 24 hours LORAzepam (Ativan) tab 0.5 mg 0.5 mg, Oral, ONCE PRN Anxiety, Nausea, Starting on Wed05/16/24 at 0830, Until Discontinued NSS infusion FOR HYDRATION Intravenous, at 50 mL/hr Administer over 10 Hours, PRN, Starting on Wed05/16/24 at 1506, Until Discontinued Start Infusion 05/16/2024 3:22 PM EDT 500 mL 50 mL/hr oxygen GAS Inhalation, OXYGEN, First dose on Wed05/16/24 at 1600, Until Discontinued, Device/Managed by: Low [...] Push, PRN Other, IV Flush, Starting on Wed05/16/24 at 1506, Until Wed05/17/24 at 1505, For 24 hours, Do not flush if [...] solution and volume., ONCE, 1 dose, On Wed05/16/24 at 1315 Start Infusion 05/16/2024 4:16 PM EDT 4,500 mg 3 mL/hr Fluorouracil (5-Fu) inj 750 mg 750 mg (rounded from 744 mg = 400 mg/m2 1.86 m2 Treatment Plan BSA from Recorded weight), IV Push, ONCE, 1 dose, On Wed05/16/24 at 1545 Given 05/16/2024 4:06 PM EDT 750 mg leucovorin calcium 750 mg in D5W 250 mL INFUSION 750 mg (rounded from 744 mg = 400 mg/m2 1.86 m2 Treatment Plan BSA from Recorded weight), IV Piggyback, ONCE, 1 dose, On Wed05/16/24 at 1545, Administer over 30 Minutes, Before 5-FU Start Infusion 05/16/2024 3:25 PM EDT 750 mg 510 mL/hr ondansetron (Zofran) tab 8 mg 8 mg, Oral, ONCE, On Wed05/16/24 at 1545, For 1 dose Given 05/16/2024 3:23 PM EDT 8 mg vitamin b-12 (Cyanocobalamin) inj 1,000 mcg 1,000 mcg, Intramuscular, ONCE, On Wed05/16/24 at 1645, For 1 dose Given 05/16/2024 4:11 PM EDT 1,000 mcg Arm Right Upper documented in this encounter Advance Directives * Full Code (Latest Code Status on File) Date Activated Date Inactivated Comments 12/04/2022 10:10 PM 12/08/2022 3:55 PM This order re flects the patients wishes and were consensually agreed upon. Question Answer Comments Discussion of Advance Directives occurred with: Patient Care Teams Tip Cementer Relationship Specialty Start Date End Date Kristine Kan DO [address] [place] [address] PCP - General Family Medicine 03/16/24 documented as of this encounter
--- OUTSIDE RECORDS SUMMARY | 2024-06-06 23:33 | External Medical Summary | Summary of Care ---
Author Name Unknown Organization [facility] Address [address] [place] [address] Phone [phone] Care Team Providers Care Insurance Claims Examiner Name Role Phone Kristine Kan Primary Care Provider + [phone] Reason for Visit * Reason Comments Chemotherapy C9/D1 - Leucovorin, 5FU Medication Administration B12 * Episode Based Medications (Routine) - Authorized Specialty Diagnoses / Procedures Referred By Contac t Referred To Contact Diagnoses Carcinoma of gallbladder (HCC) Encounter for antineoplastic chemotherapy Procedures MT LEUCOVORIN CALCIUM INJECTION MT PALONOSETRON HCL MT FLUOROURACIL INJECTION MT OXALIPLATIN Hardik Gross MD [address] [place] [address] Anc Hem/Onc [address] [address] Referral ID Status Reason Start Date Expiration Date V isits Requested Visits Authorized [id number] Authorized 12/14/2023 12/13/2024 999 999 Encounter Details Date Type Department Care Team (Latest Contact Info) Description 05/16/2024 2:30 PM EDT Hem/Onc Treatment Hematology/Oncolog y Treatment, [address] [address] Carcinoma of gallbladder (HCC)*; Encounter [...] mcgIndications:Vitamin B 12 deficiency 1000 mcg IM [id number] 09/02/2023 08/03/2024 Active documented as of this [...] Contact Info) Description 05/18/2024 2:00 PM EDT Immunization/Injecti on Hematology/Oncology Treatment, [place] [address] [place] [phone] Chair Jessica 8 Hem Onc Scen[facility] [place] [address] 05/24/2024 10:30 AM EDT Laboratory Laboratory [facility] [place] [address] [place], [place] [address] Jessica, Lab Scenery [address] [facility] [place], [place] [address] 05/29/2024 11:10 AM EDT Laboratory Laboratory [facility] Jessica [place] [address] [place] [address] Jessica, Lab Scenery [address] [place], [place] [address] 05/30/2024 11:00 AM EDT Hem/Onc Treatment [facility]ematology/Oncology [facility], [place] [facility] [address] Jessica, Chair 2 Hem Onc Scenery [address] [place], [place] [address] 06/08/2024 11:00 AM EDT Imaging Radiology [address], [place] [facility] [address] 06/12/2024 10:30 AM EDT Laboratory Laboratory [facility] [place] [address] [place] [phone] Jessica, Lab Scenery [address] [facility] [place], [place] [address] 06/12/2024 11:00 AM EDT Office Visit Hematology/Oncology [facility] Jessica [place] [address] [place], [place] [address] Hardik Gross MD [address] [place], [place] [address] 06/13/2024 11:00 AM EDT Hem/Onc Treatment Hematology/Oncology Treatment, [place] [address] [place], [place] [address] Jessica, Chair 9 Hem Onc Scenery [address] [place], [place] [address] 07/10/2024 1:00 PM EDT Office Visit Family Practice [address], [place] [address] [place] [address] Kristine Kan DO [address] [facility] [place] [address] Health Maintenance Due Date Last Done Comments Adult Wellness Visit 2015 COVID-19 Vaccine ( season) 2024 11/08/2023, 07/10/2022, 01/06/2022, Additional history exists Influenza Vaccine (FLU shot) (#1) 2024 06/30/2023, 07/18/2022, 05/18/2021, Additional history exists Albumin/Creatinine Ratio 09/02/2024 09/02/2023, 08/0 10/2021 Depression Monitoring 11/09/2024 11/09/2023 GFR 11/15/2024 05/15/2024, 04/05, 04/25/2024, Additional history exists CKD PHOS USE SMARTSET 22175 11/25/2024 11/25/2023, 0 12/05/2022 HbA1c 11/25/2024 11/25/2023, 11/04, 05/04/2022, Additional history exists CKD HGB USE SMARTSET 19870 05/15/202505/15, 05/15/2024, 05/02/2024, Additional history exists DXA [...] this encounter Medical Devices Implanted Type Area Elevator Operator Freight Device Identifier Shelf Expiration Date Model / Serial / Lot Lens Intraoc 21.5 - [id number] - [id number] Implanted:Qty: 1 on 07/27/2019 by Tristian Araujo MD at OR [facility] Left: Eye [employer] LOMB 04/02/2024 [id number] / [id number] / [id number] Lens Intraoc 21.5 - [id number] - [id number] Implanted:Qty: 1 on 08/08/2019 by Tristian Araujo MD at OR [facility] Right: Eye BAUSCH & LOMB 04/02/2024 [id number] / [id number] / [id number] Stent Axios [id number] - [id number] Implanted:Qty: 1 on 12/07/2022 by Tanya Morris MD at OR [facility] N/A: Abdomen [employer] : ENDOSCOPY [id number] 08/25/2023 [id number] / / [id number] Stent Bili Pigtail 7fr 100mm - [id number] Implanted:Qty: 1 on 12/07/2022 by Tanya Morris MD at OR [facility] N/A: Abdomen i.Meter [employer] [id number] 08/03/2025 PBD-1033-0 710 / / 2YK Stent Bili Pigtail 7fr 100mm - [id number] Implanted:Qty: 1 on 12/07/2022 by Tanya Morris MD at OR [facility] N/A: Abdomen O[employer]MPUS [employer] [id number] 08/03/2025 PBD-1033-0 710 / / 2YK Power Port 8fr Sngl Lumen Plas - [id number] Implanted:Qty: 1 on 12/29/2022 by Landon Hickman DO at OR [facility] Right: Chest CR BARD : PERIPHERAL VASCULAR [id number] 12/02/2023 [id number] / / [id number] [facility] 10cm - [id number] Implanted:Qty: 1 on 02/19/2023 by Tanya Morris MD at OR [facility] [employer] [id number] 12/31/2024 [facility]-10-100 -180 / / [id number] documented as of this encounter Visit Diagnoses [...] 3:25 PM EDT 750 mg 510 mL/hr NSS infusion FOR HYDRATION Intravenous, at 50 mL/hr Administer over 10 Hours, PRN, Starting on Wed05/16/24 at 1506, Until Wed05/16/24 at 2106 Start Infusion 05/16/2024 3:22 PM EDT 500 mL 50 mL/hr ondansetron [...] Advance Directives occurred with: Patient Care Teams Insurance Claims Examiner Relationship Specialty Start Date End Date Kristine Kan DO [address] [place] [address] PCP - General Family Medicine 03/16/24 documented as of this encounter
--- OUTSIDE RECORDS SUMMARY | 2024-06-06 23:34 | External Medical Summary | Summary of Care ---
Author Name Unknown Organization [facility] Address [address] [place] [address] Phone [phone] Care Team Providers Care Service Center Supervisor Name Role Phone Kristine Kan Primary Care Provider + [phone] Reason for Visit * Reason Comments Chemotherapy Leucovorin, 5fu Medication Administration Vitamin B12 * Episode Based Medications (Routine) - Authorized Specialty Diagnoses / Procedures Referred By Contac t Referred To Contact Diagnoses Carcinoma of gallbladder (HCC) Encounter for antineoplastic chemotherapy Procedures MT LEUCOVORIN CALCIUM INJECTION MT PALONOSETRON HCL MT FLUOROURACIL INJECTION MT OXALIPLATIN Hardik Gross MD [address] [place] [address] [place] [address] Anc Hem/Onc [address] [address] Referral ID Status Reason Start Date Expiration Date V isits Requested Visits Authorized [id number] Authorized 12/14/2023 12/13/2024 999 999 Encounter Details Date Type Department Care Team (Latest Contact Info) Description 04/12/2024 2:00 PM EDT Hem/Onc Treatment Hematology/Oncolog y Treatment, [address] [address] Jessica, Chair 4 Hem On[address] [place] [address] Carcinoma of gallbladder (HCC)*; Encounter for antineoplastic [...] mcgIndications:Vitamin B 12 deficiency 1000 mcg IM [id number] 09/02/2023 08/03/2024 Active documented as of this [...] Description 05/15/2024 11:10 AM EDT Laboratory Laboratory [facility] [address] [place] [address] [facility] 200 [facility] [place] [address] 05/16/2024 2:30 PM EDT Hem/Onc Treatment Hematology/Oncology Treatment, [place] [address] [place] [address] 06/08/2024 11:00 AM EDT Imaging Radiology [facility] 1st [facility] [address] [facility] [place] [address] 07/10/2024 1:00 PM EDT Office Visit Family Practice [address], [place] [address] [place] [address] Kristine Kan DO [address] [facility] [address] Health Maintenance Due Date Last Done Comments Adult Wellness Visit 2015 COVID-19 Vaccine ( season) 2024 11/08/2023, 07/10/2022, 01/06/2022, Additional history exists Influenza Vaccine (FLU shot) (#1) 2024 06/30/2023, 07/18/2022, 05/18/2021, Additional history exists Albumin/Creatinine Ratio 09/02/2024 09/02/2023, 08/0 10/2021 GFR 11/02/2024 05/02/2024, 07/2 12/2023, 04/10/2024, Additional history exists Depression Monitoring 11/09/2024 11/09/2023 CKD PHOS USE SMARTSET 77893 11/25/2024 11/25/2023, 0 12/05/2022 HbA1c 11/25/2024 11/25/2023, 11/04, 05/04/2022, Additional history exists CKD HGB USE SMARTSET 71501 05/02/202505/02, 05/02/2024, 04/25/2024, Additional history exists DXA [...] this encounter Medical Devices Implanted Type Area Environmental Health Technician Device Identifier Shelf Expiration Date Model / Serial / Lot Lens Intraoc 21.5 - [id number] - [id number] Implanted:Qty: 1 on 07/27/2019 by Tristian Araujo MD at OR [facility] Left: Eye BAUSCH [employer] LOMB 04/02/2024 [id number] / [id number] / [id number] Lens Intraoc 21.5 - [id number] - [id number] Implanted:Qty: 1 on 08/08/2019 by Tristian Araujo MD at OR [facility] Right: Eye BAUSCH [employer] LOMB 04/02/2024 [id number] / [id number] / [id number] Stent Axios [id number] - [id number] Implanted:Qty: 1 on 12/07/2022 by Tanya Morris MD at OR [facility] N/A: Abdomen [employer] : ENDOSCOPY [id number] 08/25/2023 [id number] / / [id number] Stent Bili Pigtail 7fr 100mm - [id number] Implanted:Qty: 1 on 12/07/2022 by Tanya Morris MD at OR [facility] N/A: Abdomen [employer] [id number] 08/03/2025 PBD-1033-0 710 / / 2YK Stent Bili Pigtail 7fr 100mm - [id number] Implanted:Qty: 1 on 12/07/2022 by Tanya Morris MD at OR [facility] N/A: Abdomen [employer] [id number] 08/03/2025 PBD-1033-0 710 / / 2YK Power Port 8fr Sngl Lumen Plas - [id number] Implanted:Qty: 1 on 12/29/2022 by Landon Hickman DO at OR [facility] Right: Chest CR BARD : PERIPHERAL VASCULAR [id number] 12/02/2023 [id number] / / [id number] Hanarostent Noncover 10dm 10cm - [id number] Implanted:Qty: 1 on 02/19/2023 by Tanya Morris MD at OR [facility] [employer] [id number] 12/31/2024 [facility]-10-100 -180 / / [id number] documented as of this encounter Visit Diagnoses [...] Advance Directives occurred with: Patient Care Teams Service Center Supervisor Relationship Specialty Start Date End Date Kristine Kan DO [address] [place] [address] PCP - General Family Medicine 03/16/24 documented as of this encounter
--- OUTSIDE RECORDS SUMMARY | 2024-06-06 23:34 | External Medical Summary | Summary of Care ---
Author Name Unknown Organization [facility] Address [address] [place] [address] Phone [phone] Care Team Providers Care [employer] Vault Installer Name Role Phone Kristine Kan Primary Care Provider [phone] Reason for Referral * Precert (Within 10 days (routine)) - Pending Review Specialty Diagnoses / Procedures Referred By Marcela johansen Referred To Contact Radiology Diagnoses Carcinoma of gallbladder (HCC) Procedures CT CHEST/ABDOMEN/PELVIS WITHOUT IV CONTRAST WITH ORAL CONTRAST Hardki Gross MD [address] [place] [address] Referral ID Status Reason Start Date Expiration Date V isits Requested Visits Authorized [id number] Pending Review 06/10/2024 999 999 Reason for Visit * Reason Comments Follow Up Encounter Details Date Type Department Care Team (Late st Contact Info) Description 05/10/2024 10:00 AM EDT Office Visit Hematology/Oncology [facility] [place] [address] [place] [phone] Hardik Gross MD [address] [place] [address] Carcinoma of gallbladder (HCC)* Allergies Active Allergy Reactions Criticality Noted Date Comments Latex Rash 06/28/2018 From a dressing Sulfamethoxazole Edema face/lips/tongue High 023 Trimethoprim Edema face/lips/tongue High 12/03/2022 documented as of this encounter (statuses as of 05/10/2024) Medications Medication Sig Dispensed Refills Start Date [...] Tablet Therapy Pack (Eliquis DVT/PE Starter Pack)Indications:Ac [place] 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 [...] mcgIndications:Vitamin B 12 deficiency 1000 mcg IM [id number] 09/02/2023 08/03/2024 Active documented as of this encounter (statuses as of 05/10/2024) Active Problems Problem Noted Date Diagnosed Date [...] as of this encounter (statuses as of 05/10/2024) Resolved Problems Problem Noted Date Diagnosed Date [...] as of this encounter (statuses as of 05/10/2024) Immunizations Name Administration Dates Next Due COVID-19 [...] Sign Reading Time Taken Comments Blood Pressure 118/78 05/10/2024 9:57 AM EDT Pulse 90 05/10/2024 9:57 AM EDT Temperature 36.3 C (97.4 F) 05/10/2024 9:57 AM ED T Respiratory Rate - - Oxygen Saturation 98% 05/10/2024 9:57 AM EDT Inhaled Oxygen Concentration - - Weight 73 kg (161 lb) 05/10/2024 9:57 AM EDT Height - - Body Mass Index 26.79 05/08/2024 2:31 PM EDT documented in this [...] No 12/04/2022 documented as of this encounter Progress Notes * Hardik Gross MD - 05/10/2024 9:57 AM EDT Outpatient Consult Note Data Source: Patient, Epic record. Data Source: Patient, Epic record. 05/10/2024 9:57 AM Anjelica Wiley [id number] 74 year old Patient Encounter: HEMATOLOGY/ONCOLOGY [facility] Cancer Diagnosis: Adenocarcinoma of gallbladder History of Left breast cancer, stage IA p T1 c p N0 ER strongly+ NC weakly + Her 2 ирина negative. Bilateral lower extremity DVT Current Treatment: On FOLFOX Eliquis Previous Treatment: Gemcitabine and cisplatin. Durvalumab was added on 04/14/2023. Cisplatin and gemcitabine was discontinued after receiving day 1 of cycle 4 because of the rising creatinine. Subsequently she was treated with single agent durvalumab, she received total of 5 cycles of durvalumab single agent. She has disease progression. Left partial mastectomy and radiation therapy Tamoxifen between 08/2017 to 08/2022 Oncologic History : 74-year-old female presented with complaint of generalized weakness, loss of appetite and had metallic test. She was also found to have elevated liver enzymes. She had ultrasound of the liver done on12/03/2022 which revealed diffuse intrahepatic and extrahepatic biliary dilatation and heterogeneous masslike lesion in the gallbladder. Because of these findings and elevated liver enzymes she had upper endoscopy and endoscopic ultrasound done on 12/07/2022 which revealed extrinsic severe stenosisin the duodenal bulb due to large gallbladder mass. She would placement of 2 stent. Biopsy from the mass is consistent with adenocarcinoma. FINAL DIAGNOSIS Gallbladder, mass, endoscopic fine-needle aspiration: - Adenocarcinoma Comment: The immunoprofile is fairly non-specific though could be supportive of a gallbladder primary. Other tumors that can show a similar immunoprofile include gastric and pancreatic adenocarcinomas. Clinical correlation required. CT scan of the abdomen pelvis revealed large soft tissue mass in the gallbladder concerning for gallbladder cancer possible involvement of the hepatic flexure. Hepatic invasion can not be entirely excluded and there is a biliary ductal dilatation compatible with mass effect. No lisa metastases wasseen. Patient was evaluated by Dr. Arias and because of locally advanced disease she is not surgicalcandidate and recommended chemo +/-Radiation therapy. She was also diagnosed of left breast cancer which was found on screening mammogram. She underwent partial mastectomy and sentinel lymph biopsy and histopathology was consistent with 15 mm grade 1 infiltrating ductal carcinoma, 2 lymph nodes were negative. She has stage pT1 cpN0 disease with ER strongly positive and NC weakly positive and HER2 Ирина negative. Oncotype DX recurrence score was 12. She completed radiation therapy and 5 years of tamoxifen. She completed 5 years in August 2022. Patient was seen by Dr. Hannon at [facility] for 2nd opinion and he recommended durvalumab with gemcitabine and cisplatin combination. If she fails this combination then will be eligible for clinical trial or consider capecitabine plus oxaliplatin or FOLFOX. Interval History: Overall clinically she is feeling better with improvement in the dizziness and generalized fatigue and weakness. Her blood pressure medication were adjusted with improvement in the dizziness. Her appetite is good. She denies any headache, blurred vision, chest pain palpitation abdominal pain or distention, nausea, vomiting, fever, night sweats. LABS/IMAGING: Results for orders placed or performed in visit on 05/02/24 COMPREHENSIVE METABOLIC PANEL Result Value Ref Range BUN 22 (H) 6 - 20 mg/dL Creatinine 1.5 (H) 0.5 - 1.0 mg/dL Estimated Glomerular Filtration Rate 36 (L) >=60 mL/min Sodium 139 135 - 146 mmol/L Potassium 3.6 3.5 - 5.1 mmol/L Chloride 103 98 - 107 mmol/L CO2 22 22 - 32 mmol/L Anion Gap 14 7 - 15 mmol/L Glucose 137 (H) 70 - 120 mg/dL Albumin 3.4 (L) 3.8 - 5.0 g/dL AST 13 10 - 35 U/L Alkaline Phosphatase 74 35 - 130 U/L Bilirubin, Total 0.3 <=1.2 mg/dL Calcium 9.5 8.4 - 10.2 mg/dL Protein 6.9 6.0 - 8.3 g/dL ALT <5 (L) 10 - 35 U/L MAGNESIUM Result Value Ref Range Magnesium 1.8 1.5 - 2.6 mg/dL CBC Result Value Ref Range WBC 5.84 4.00 - 10.80 K/uL RBC 2.62 3.85 - 5.15 M/uL HGB 8.8 (L) 12.0 - 15.3 g/dL HCT 28.7 (L) 36.0 - 45.2 % MCV 109.5 81.5 - 97.5 fL MCH 33.6 27.0 - 34.0 pg MCHC 30.7 32.0 - 36.0 g/dL RDW 16.5 11.5 - 15.5 % PLT 286 140 - 400 K/uL MPV 9.2 6.6 - 11.1 fL DIFFERENTIAL, TECHNOLOGIST REVIEW Result Value Ref Range WBC 5.84 4.00 - 10.80 K/uL Neutrophils % 47.0 40.0 - 75.0 % Lymphocytes % 41.0 18.0 - 42.0 % Monocytes % 6.0 1.0 - 11.0 % Eosinophils % 3.0 0.0 - 6.0 % Metamyelocytes % 2.0 (H) <=0.0 % Myelocytes % 1.0 (H) <=0.0 % Absolute Neutrophils 2.74 1.80 - 7.70 K/uL Absolute Lymphocytes 2.39 1.00 - 4.80 K/uL Absolute Monocytes 0.35 0.00 - 1.10 K/uL Absolute Eosinophils 0.18 0.00 - 0.70 K/uL Absolute Metamyelocytes 0.12 (H) <=0.00 K/uL Absolute Myelocytes 0.06 (H) <=0.00 K/uL nRBCs 1 (H) <=0 /100 WBCs *Note: Due to a large number of results and/or encounters for the requested time period, some results have not been displayed. A complete set of results can be found in Results Review. The result of all the recent blood counts are in acceptable range. REVIEW OF SYSTEMS: General: No Fever, chills, night sweats, or weight loss. HEENT: No change in visual acuity, blurred or double vision. No epistaxis, facial pain, nasal discharge or change in hearing. Denies dysphagia, no muscosal ulceration, or sores noted. Cardiovascular: No chest pain, SOLARES, or palpitations Respiratory: No shortness of breath, cough, hemoptysis, or pleuritic chest pain Gastrointestinal: No abdominal pain, nausea, vomiting, diarrhea, rectal pain or bleeding Genitourinary: Denies Hematuria or dysuria Psychiatric: No vegetative signs of depression Endocrine: No symptoms of hypothyroidism or hyperglycemia Hematologic: No bleeding or lymph nodes noted As mentioned above, all of the systems were reviewed in full and are unremarkable. Past Medical History: Diagnosis Date Breast cancer (HCC) 03/2017 left breast Depressive disorder, not elsewhere classified Hypertension Hypertention, malignant, with acute intensive management INFORMATION UTERINE PROLAPSE INFORMATION CYSTOCELE RSV infection Current Outpatient Medications Medication Sig Dispense Refill Sodium Chloride (Hypertonic) 5 % Ophthalmic Solution 1 Drop as needed. (Patient not taking: Reported on 05/08/2024) Calcium Carbonate-Vitamin D 600-400 MG-UNIT Oral Tablet Take 1 Tab by mouth daily. 90 Tab 3 polyethylene glycol 3350 119 gram OR POWD Take 119 g by mouth once. 1/2 capful daily Magnesium 200 MG Oral Tablet Take 2 Tablets by mouth in the morning. Pt reports she is taking 400 mg. Potassium Chloride Karlene ER 10 MEQ Oral Tablet Extended Release Take 1 Tablet by mouth daily. (Patient not taking: Reported on 05/08/2024) 30 Tablet 3 Ketoconazole 2 % External Cream Apply to both feet, ankles and between toes twice daily x 4-6 weeks30 g 2 clonazePAM 0.5 MG Oral Tablet (KlonoPIN) take 1 tablet by mouth UP TO 3 TIMES A DAY NEEDED FOR ANXIETY OR SLEEP 45 Tablet 1 Ondansetron HCl 8 MG Oral Tablet Take 1 Tablet by mouth every 8 hours as needed for Nausea. 30 Tablet 2 Prochlorperazine Maleate 10 MG Oral Tablet (Compazine) Take 1 Tablet by mouth every 6 hours as needed for Nausea. 30 Tablet 2 Lidocaine-Prilocaine 2.5-2.5 % External Cream (Emla) APPLY TO SKIN OVER MEDIPORT & COVER 1HR PRIOR TO ACCESSING. 30 g 1 Artificial Tears 0.1-0.3 % Ophthalmic Solution (Dextran 70-Hypromellose) Instill into eye at bedtime. Megestrol Acetate 625 MG/5ML Oral Suspension Take 4 ml by mouth daily (Patient taking differently: Take 4 ml by mouth daily. 05/08/24 - pt reports she is only taking 2 ml.) 300 mL 3 Apixaban Starter Pack 5 MG Oral Tablet Therapy Pack (Eliquis DVT/PE Starter Pack) 10 mg twice a dayby mouth for 7 days, then 5 mg by mouth twice a day. 74 Tablet 0 Apixaban 5 MG Oral Tablet (Eliquis) Take 1 Tablet by mouth in the morning and 1 Tablet before bedtime. Do not start before April 05, 2024. 60 Tablet 5 Ciprofloxacin HCl 500 MG Oral Tablet (Cipro) Take 1 Tablet by mouth in the morning. (Patient not taking: Reported on 05/08/2024) 7 Tablet 0 Atenolol 25 MG Oral Tablet (Tenormin) Take 0.5 Tablets by mouth in the morning. Current Facility-Administered Medications Medication Dose Route Frequency Provider Last Rate Last Admin vitamin b-12 (Cyanocobalamin) inj 1,000 mcg 1,000 mcg Intramuscular Q4 Weeks Kristine Kan DO 1,000 mcg at 09/02/23 5906 Social History Tobacco Use Smoking status: Never Passive exposure: Past Smokeless tobacco: Never Vaping Use Vaping status: Never Used Substance Use Topics Alcohol use: Not Currently Alcohol/week: 1.0 standard drink of alcohol Types: 1 5 oz of wine per week Comment: social Drug use: No Review of patient's allergies indicates: Allergen Reactions Sulfamethoxazole Edema face/lips/tongue Trimethoprim Edema face/lips/tongue Latex Rash From a dressing PHYSICAL EXAMINATION: General Appearance: Healthy appearing patient in no acute distress There were no vitals taken for this visit. Vitals reviewed. HEENT: No oral or pharyngeal masses, ulceration or thrush noted, no sinus tenderness. Neck is supple with no thyromegaly or JVD noted. Lymph Nodes: No lymphadenopathy noted in the occipital, pre and post auricular, cervical, supra andinfraclavicular, axillary, epitrochlear, inguinal, and popliteal region. Lungs/Thorax: Clear to auscultation, no accessory muscles of respiration being used. Heart: Regular rate and rhythm, normal S1, S2 Abdomen: Soft, nontender, bowel sounds present, no appreciable hepatosplenomegaly, no palpable masses Extremeties: Good pulses bilaterally, no peripheral edema. ASSESSMENT: 74-year-old female with history of breast cancer underwent partial mastectomy and sentinel lymph node biopsy. She is stage pT1 pN0 disease and received adjuvant radiation therapy and 5 years of tamoxifen. On the follow-up she was found to have elevated liver enzymes and had ultrasound and CT scan done which shows large gallbladder mass with possible invasion of hepatic flexure and the biliary ductal dilatation. She underwent endoscopy and endoscopic ultrasound with placement of the stent. FNA from the masses consistent with gallbladder cancer. She has locally advanced disease. She was evaluated by Dr. Arias and according to his evaluation, patient is not a surgical candidate and recommend chemotherapy plus-minus radiation therapy. She received 3 cycles of combination chemotherapy including gemcitabine and cisplatin. She had a follow-up CT scan done which revealed redemonstration of findings concerning for gallbladder carcinoma, similar in appearance to previous study. Inflated tissue in the periportal region appears to be direct spread of the tumor, the mass abuts the hepatic flexure of colon, distal stomach and proximal duodenum concerning for infiltration, enlarged periportal lymph node suspected concerning for a metastatic node, omental thickening and nodularity adjacent to the gallbladder mass concerning for peritoneal spread of the tumor. She went to [facility] and was seen by Dr. Laura for 2nd opinion. He recommended durvalumab with gemcitabine and cisplatin. Patient have received 3 cycles of gemcitabine and cisplatin combination without any response. He also recommended in case if there was no response of progression of disease then she will be eligible for ongoing protocol. She received 4 cycles gemcitabine plus cisplatin and then chemotherapy was discontinued because of the toxicity including increase in the creatinine. Currently she is receiving single agent durvalumab with good tolerance and without any significant side effects or toxicity. Clinically she is doing well and in good performance status and physical examination is unremarkable. On the recent CT scan there seems to be disease progression. CA 19-9 level was more than 10,000. Dr. Laura from [facility] recommended FOLFOX or CAPOX protocol for further treatment. Currently she is on FOLFOX. Dose of oxaliplatin was reduced because of the neuropathy. Because of the toxicity including neuropathy continue to get worse despite dose reduction, oxaliplatin was omitted. She also had swelling of the lower extremity and had Doppler ultrasound done which is positive for bilateral lower extremity DVT. Currently she is on Eliquis with improvement in the symptoms. Currently she is receiving 5 FU leucovorin. Oxaliplatin was discontinued because of the neuropathy.Overall clinically she is feeling better with improvement in the energy level. Her blood pressure medications were adjusted. Again discussed with the patient and in detail about diagnosis and prognosis and reviewed all the available blood test result with pain. For now will continue her current treatment. PLAN: Continue current treatment. She will return clinic for follow-up in [address] scan. The patient voiced understanding of all of the above. All questions and concerns were addressed in an apparently satisfactory manner. Hardik Gross MD (This note was completed using the dictation program Fluency Direct. As such, there may be misspellings, word substitutions, or other variations that should not change the essence of the clinical content of this encounter note. If there is need for further clarification, please direct questions to me.) documented in this encounter Nursing Notes * Rachel Boone MED ASSIST - 05/10/2024 9:58 AM EDT Patient identifed by name and birthdate Do you have any concerns about pain management for today's visit? Yes. Patient instructed to discuss pain concerns with provider during the visit today Living Will or Advance Directive for Health Care as noted on the problem list. [facility] is a way you can talk to your provider on line through e-mail. Would you like to sign up? I can activate it for you? ALREADY ACTIVE Filed Vitals: 05/10/24 0957 BP: 118/78 Pulse: 90 Temp: 36.3 C (97.4 F) TempSrc: Tympanic SpO2: 98% Weight: 73 kg (161 lb) Patient was instructed to not get up on the exam table/exam chair until directed and assisted by their provider; patient is to remain seated in the chair/ wheelchair/ exam table/ exam chair for fall prevention and safety reasons. Patient is aware to have assistance to step down off exam table/exam chair with personnel. Patient voiced full comprehension of instructions. documented in this encounter Plan of Treatment Upcoming Encounters Date Type Department Care Team (Late st Contact Info) Description 05/15/2024 11:10 AM EDT Laboratory Laboratory [facility] [place] [address] [facility] [place] [id number] [place] [address] [place] [facility] [place] [address] 05/16/2024 2:30 PM EDT Hem/Onc Treatment Hematology/Oncology Treatment, [address] [place] [address] 06/08/2024 11:00 AM EDT Imaging Radiology [facility] 1st Floor, [place] [address] [place] [address] 07/10/2024 1:00 PM EDT Office Visit Family Practice [address], [place] [address] [facility] [phone] Kristine Kan [facility] [address] [facility] [address] Scheduled Orders Name Type Priority Associated Diagnoses Orde r Schedule CT CHEST/ABDOMEN/PELVI S WITHOUT IV CONTRAST WITH ORAL CONTRAST Medical Imaging Routine Carcinoma of gallbladder (HCC) Expected: 06/10/2024, Expires: 06/10/2025 Health Maintenance Due Date Last Done Comments Adult Wellness Visit 2015 COVID-19 Vaccine ( season) 2024 11/08/2023, 07/10/2022, 01/06/2022, Additional history exists Influenza Vaccine (FLU shot) (#1) 2024 06/30/2023, 07/18/2022, 05/18/2021, Additional history exists Albumin/Creatinine Ratio 09/02/2024 09/02/2023, 08/0 10/2021 GFR 11/02/2024 05/02/2024, 07/2 12/2023, 04/10/2024, Additional history exists Depression Monitoring 11/09/2024 11/09/2023 CKD PHOS USE SMARTSET 85380 11/25/2024 11/25/2023, 0 12/05/2022 HbA1c 11/25/2024 11/25/2023, 11/04, 05/04/2022, Additional history exists CKD HGB USE SMARTSET 19923 05/02/202505/02, 05/02/2024, 04/25/2024, Additional history exists DXA [...] this encounter Medical Devices Implanted Type Area Cardiac Surgeon Device Identifier Shelf Expiration Date Model / Serial / Lot Lens Intraoc 21.5 - [id number] - [id number] Implanted:Qty: 1 on 07/27/2019 by Tristian Araujo MD at [facility] Left: Eye [employer]OM[employer] 04/02/2024 [id number] / [id number] / [id number] Lens Intraoc 21.5 - [id number] - [id number] Implanted:Qty: 1 on 08/08/2019 by Tristian Araujo MD at OR [facility] Right: Eye BA[employer]CH [employer] LOMB 04/02/2024 [id number] / [id number] / [id number] Stent [employer]xi[employer] [id number] - [id number] Implanted:Qty: 1 on 12/07/2022 by Tanya Morris MD at OR [facility] N/A: Abdomen [employer] : ENDOSCOPY [id number] 08/25/2023 [id number] / / [id number] Stent Bili Pigtail 7fr 100mm - [id number] Implanted:Qty: 1 on 12/07/2022 by Tanya Morris MD at OR [facility] N/A: Abdomen [employer] [id number] 08/03/2025 PBD-1033-0 710 / / 2YK Stent Bili Pigtail 7fr 100mm - [id number] Implanted:Qty: 1 on 12/07/2022 by Tanya Morris MD at OR [facility] N/A: Abdomen [email or web address] [id number] 08/03/2025 PBD-1033-0 710 / / 2YK Power Port 8fr Sngl Lumen Plas - [id number] Implanted:Qty: 1 on 12/29/2022 by Landon Hickman DO at OR [facility] Right: Chest CR BARD : PERIPHERAL VASCULAR [id number] 12/02/2023 [id number] / / [id number] Hanarostent Noncover 10dm 10cm - [id number] Implanted:Qty: 1 on 02/19/2023 by Tanya Morris MD at OR [facility] [email or web address] [id number] 12/31/2024 [facility]-10-100 -180 / / [id number] documented as of this encounter Visit Diagnoses [...] Advance Directives occurred with: Patient Care Teams Cemetery Vault Installer Relationship Specialty Start Date End Date Kristine Kan DO [address] [facility] [place] [address] PCP - General Family Medicine 03/16/24 documented as of this encounter
--- OUTSIDE RECORDS SUMMARY | 2024-06-06 23:34 | External Medical Summary | Summary of Care ---
Author Name Unknown Organization [facility] Address [address] [place] [address] Phone [phone] Care Team Providers Care Digital Editor Name Role Phone Kristine Kan Primary Care Provider + [phone] Reason for Visit * Reason Comments Chemotherapy Leuco/5FU * Episode Based Medications (Routine) - Authorized Specialty Diagnoses / Procedures Referred By Marcela johansen Referred To Contact Diagnoses Carcinoma of gallbladder (HCC) Encounter for antineoplastic chemotherapy Procedures [place] LEUCOVORIN CALCIUM INJECTION RI PALONOSETRON HCL RI FLUOROURACIL INJECTION RI OXALIPLATIN Hardik Gross MD [address] [place] [address] [place] [address] Anc Hem/Onc [address] [address] Referral ID Status Reason Start Date Expiration Date V isits Requested Visits Authorized [id number] Authorized 12/14/2023 12/13/2024 999 999 Encounter Details Date Type Department Care Team (Latest Contact Info) Description 05/03/2024 2:00 PM EDT Hem/Onc Treatment Hematology/Oncolog y Treatment, [address] [address] Jessica, Chair 11 Hem Onc [address] [place] [address] Carcinoma of gallbladder (HCC)*; Encounter for antineoplastic chemotherapy Allergies Active Allergy Reactions Criticality Noted Date Comments Latex Rash 06/28/2018 From a dressing Sulfamethoxazole Edema face/lips/tongue High 023 Trimethoprim Edema face/lips/tongue High 12/03/2022 documented as of this encounter (statuses as of 05/09/2024) Medications Medication Sig Dispensed Refills Start Date [...] mcgIndications:Vitamin B 12 deficiency 1000 mcg IM [id number] 09/02/2023 08/03/2024 Active documented as of this encounter (statuses as of 05/09/2024) Active Problems Problem Noted Date Diagnosed Date [...] as of this encounter (statuses as of 05/09/2024) Resolved Problems Problem Noted Date Diagnosed Date [...] as of this encounter (statuses as of 05/09/2024) Immunizations Name Administration Dates Next Due COVID-19 [...] 05/10/2024 10:00 AM EDT Office Visit Hematology/Oncology [facility] [address] [place] [address] Hardik Gross MD 200 [place] [address] 05/16/2024 11:00 AM EDT Laboratory Laboratory [facility] [place] 200 [place] [address] Park, Lab [facility] 200 [facility] [place] [id number] 05/17/2024 1:30 PM EDT Hem/Onc Treatment Hematology/Oncology Treatment, [place] [address] [place] [address] Jessica, Chair 4 Hem Onc [facility] 200 [place] [address] 07/10/2024 1:00 PM EDT Office Visit Family Practice 65 [facility] [address] [place] [address] Kristine Kan DO 293 [place] [address] Health Maintenance Due Date Last Done Comments Adult Wellness Visit 2015 COVID-19 Vaccine (24 season) 2024 11/08/2023, 07/10/2022, 01/06/2022, Additional history exists Influenza Vaccine (FLU shot) (#1) 2024 06/30/2023, 07/18/2022, 05/18/2021, Additional history exists Albumin/Creatinine Ratio 09/02/2024 09/02/2023, 08/0 10/2021 GFR 11/02/2024 05/02/2024, 07/2 12/2023, 04/10/2024, Additional history exists Depression Monitoring 11/09/2024 11/09/2023 CKD PHOS USE SMARTSET 16996 11/25/2024 11/25/2023, 0 12/05/2022 HbA1c 11/25/2024 11/25/2023, 11/04, 05/04/2022, Additional history exists CKD HGB USE SMARTSET 43809 05/02/202505/02, 05/02/2024, 04/25/2024, Additional history exists DXA [...] this encounter Medical Devices Implanted Type Area Shaft Repairer Device Identifier Shelf Expiration Date Model / Serial / Lot Lens Intraoc 21.5 - [id number] - [id number] Implanted:Qty: 1 on 07/27/2019 by Tristian Araujo MD at OR [facility] Left: Eye BAUSCH & LOMB 04/02/2024 [id number] / [id number] / [id number] Lens Intraoc 21.5 - [id number] - [id number] Implanted:Qty: 1 on 08/08/2019 by Tristian Araujo MD at OR [facility] Right: Eye BAUSCH & LOMB 04/02/2024 [id number] / [id number] / [id number] Stent Axios [id number] - [id number] Implanted:Qty: 1 on 12/07/2022 by Tanya Morris MD at OR [facility] N/A: Abdomen [employer] : ENDOSCOPY [id number] 08/25/2023 [id number] / / [id number] Stent Bili Pigtail 7fr 100mm - [id number] Implanted:Qty: 1 on 12/07/2022 by Tanya Morris MD at OR [facility] N/A: Abdomen [employer] [id number] 08/03/2025 PBD-1033-0 710 / / [id number] Stent Bili Pigtail 7fr 100mm - [id number] Implanted:Qty: 1 on 12/07/2022 by Tanya Morris MD at OR [facility] N/A: Abdomen [employer] [id number] 08/03/2025 PBD-1033-0 710 / / [id number] Power Port 8fr Sngl Lumen Plas - [id number] Implanted:Qty: 1 on 12/29/2022 by Landon Hickman DO at OR [facility] Right: Chest CR BARD : PERIPHERAL VASCULAR [id number] 12/02/2023 [id number] / / [id number] Hanarostent Noncover 10dm 10cm - [id number] Implanted:Qty: 1 on 02/19/2023 by Tanya Morris MD at OR [facility] [employer] [id number] 12/31/2024 SHS-10-100 -180 / / [id number] documented as of this encounter Visit Diagnoses [...] on Wed05/03/24 at 1418, Until Wed05/03/24 at 2008 Start Infusion 05/03/2024 2:39 PM EDT 500 [...] Advance Directives occurred with: Patient Care Teams Digital Editor Relationship Specialty Start Date End Date Kristine Kan DO [address] [facility] [place] [address] PCP - General Family Medicine 03/16/24 documented as of this encounter
--- OUTSIDE RECORDS SUMMARY | 2024-06-06 23:34 | External Medical Summary | Summary of Care ---
Author Name Unknown Organization [facility] Address [address] [place] [address] Phone [phone] Care Team Providers Care Band Master Name Role Phone Kristine Kan Primary Care Provider + [phone] Reason for Visit * Reason Comments Chemotherapy Leucovorin, 5fu Medication Administration Vitamin B12 * Episode Based Medications (Routine) - Authorized Specialty Diagnoses / Procedures Referred By Contac t Referred To Contact Diagnoses Carcinoma of gallbladder (HCC) Encounter for antineoplastic chemotherapy Procedures [place] LEUCOVORIN CALCIUM INJECTION [place] PALONOSETRON HCL [place] FLUOROURACIL INJECTION [place] OXALIPLATIN Hardik Gross MD [address] [place] [address] [place] [id number] Anc Hem/Onc [address] [address] Referral ID Status Reason Start Date Expiration Date V isits Requested Visits Authorized [id number] Authorized 12/14/2023 12/13/2024 999 999 Encounter Details Date Type Department Care Team (Latest Contact Info) Description 04/12/2024 2:00 PM EDT Hem/Onc Treatment Hematology/Oncolog y Treatment, [address] [address] Jessica, Chair 4 Hem On[address] [place] [id number] Carcinoma of gallbladder (HCC)*; Encounter for antineoplastic [...] mcgIndications:Vitamin B 12 deficiency 1000 mcg IM [id number] 09/02/2023 08/03/2024 Active documented as of this [...] Description 05/15/2024 11:10 AM EDT Laboratory Laboratory [facility] [address] [place] [address] [facility] 200 [facility] [place] [id number] 05/16/2024 2:30 PM EDT Hem/Onc Treatment Hematology/Oncology Treatment, [place] [address] [place] [address] 06/08/2024 11:00 AM EDT Imaging Radiology [facility] 1st [facility] 132 [facility] [place] [address] 07/10/2024 1:00 PM EDT Office Visit Family Practice [address], [place] [address] [place] [address] Kristine Kan DO [facility] [address] Health Maintenance Due Date Last Done Comments Adult Wellness Visit 2015 COVID-19 Vaccine ( season) 2024 11/08/2023, 07/10/2022, 01/06/2022, Additional history exists Influenza Vaccine (FLU shot) (#1) 2024 06/30/2023, 07/18/2022, 05/18/2021, Additional history exists Albumin/Creatinine Ratio 09/02/2024 09/02/2023, 08/0 10/2021 GFR 11/02/2024 05/02/2024, 07/2 12/2023, 04/10/2024, Additional history exists Depression Monitoring 11/09/2024 11/09/2023 CKD PHOS USE SMARTSET 29878 11/25/2024 11/25/2023, 0 12/05/2022 HbA1c 11/25/2024 11/25/2023, 11/04, 05/04/2022, Additional history exists CKD HGB USE SMARTSET 68462 05/02/202505/02, 05/02/2024, 04/25/2024, Additional history exists DXA [...] this encounter Medical Devices Implanted Type Area Multilith Operator Device Identifier Shelf Expiration Date Model / Serial / Lot Lens Intraoc 21.5 - [id number] - [id number] Implanted:Qty: 1 on 07/27/2019 by Tristian Araujo MD at OR [facility] Left: Eye BAUSCH & LOMB 04/02/2024 [id number] / [id number] / [id number] Lens Intraoc 21.5 - [id number] - [id number] Implanted:Qty: 1 on 08/08/2019 by Tristian Araujo MD at OR [facility] Right: Eye BAUSCH & LOMB 04/02/2024 [id number] / [id number] / [id number] Stent Axios [id number] - [id number] Implanted:Qty: 1 on 12/07/2022 by Tanya Morris MD at OR [facility] N/A: Abdomen [employer] : ENDOSCOPY [id number] 08/25/2023 [id number] / / [id number] Stent Bili Pigtail 7fr 100mm - [id number] Implanted:Qty: 1 on 12/07/2022 by Tanya Morris MD at OR [facility] N/A: Abdomen [employer] [id number] 08/03/2025 PBD-1033-0 710 / / 2YK Stent Bili Pigtail 7fr 100mm - [id number] Implanted:Qty: 1 on 12/07/2022 by Tanya Morris MD at OR [facility] N/A: Abdomen [employer] [id number] 08/03/2025 PBD-1033-0 710 / / 2YK Power Port 8fr Sngl Lumen Plas - [id number] Implanted:Qty: 1 on 12/29/2022 by Landon Hickman DO at OR [facility] Right: Chest CR BARD : PERIPHERAL VASCULAR [id number] 12/02/2023 [id number] / / [id number] Hanarostent Noncover 10dm 10cm - [id number] Implanted:Qty: 1 on 02/19/2023 by Tanya Morris MD at OR [facility] [employer] [id number] 12/31/2024 SHS-10-100 -180 / / [id number] documented as of this encounter Visit Diagnoses [...] Advance Directives occurred with: Patient Care Teams Band Master Relationship Specialty Start Date End Date Kristine Kan DO [address] [place] [address] PCP - General Family Medicine 03/16/24 documented as of this encounter
--- OUTSIDE RECORDS SUMMARY | 2024-06-06 23:34 | External Medical Summary | Summary of Care ---
Author Name Unknown Organization [facility] Address [address] [place] [address] Phone [phone] Care Team Providers Care Fabric Finisher Name Role Phone Kristine Kan Primary Care Provider + [phone] Reason for Visit * Reason Comments Chemotherapy Leuco/5FU * Episode Based Medications (Routine) - Authorized Specialty Diagnoses / Procedures Referred By Marcela johansen Referred To Contact Diagnoses Carcinoma of gallbladder (HCC) Encounter for antineoplastic chemotherapy Procedures [place] LEUCOVORIN CALCIUM INJECTION [place] PALONOSETRON HCL [place] FLUOROURACIL INJECTION [place] OXALIPLATIN Hardik Gross MD [address] [place] [address] [place] [address] Anc Hem/Onc [address] [address] Referral ID Status Reason Start Date Expiration Date V isits Requested Visits Authorized [id number] Authorized 12/14/2023 12/13/2024 999 999 Encounter Details Date Type Department Care Team (Latest Contact Info) Description 05/03/2024 2:00 PM EDT Hem/Onc Treatment Hematology/Oncolog y Treatment, [address] [address] Jessica, Chair 11 Hem Onc [address] [place] [address] Carcinoma of gallbladder (HCC)*; Encounter for antineoplastic [...] mcgIndications:Vitamin B 12 deficiency 1000 mcg IM [id number] 09/02/2023 08/03/2024 Active documented as of this [...] 05/10/2024 10:00 AM EDT Office Visit Hematology/Oncology [facility] [address] [place] [address] Hardik Gross MD 200 [facility] [place] [address] 05/16/2024 11:00 AM EDT Laboratory Laboratory [facility] [place] 200 [facility] [place] [address] Park, Lab [facility] 200 [facility] [place] [id number] 05/17/2024 1:30 PM EDT Hem/Onc Treatment Hematology/Oncology Treatment, [place] [address] [place] [address] Jessica, Chair 4 Hem Onc [facility] 200 [facility] [place] [address] 07/10/2024 1:00 PM EDT Office Visit Family Practice 65 [facility] [address] [place] [address] Kristine Kan DO 293 [place] [address] Health Maintenance Due Date Last Done Comments Adult Wellness Visit 2015 COVID-19 Vaccine (24 season) 2024 11/08/2023, 07/10/2022, 01/06/2022, Additional history exists Influenza Vaccine (FLU shot) (#1) 2024 06/30/2023, 07/18/2022, 05/18/2021, Additional history exists Albumin/Creatinine Ratio 09/02/2024 09/02/2023, 08/0 10/2021 GFR 11/02/2024 05/02/2024, 07/2 12/2023, 04/10/2024, Additional history exists Depression Monitoring 11/09/2024 11/09/2023 CKD PHOS USE SMARTSET 81085 11/25/2024 11/25/2023, 0 12/05/2022 HbA1c 11/25/2024 11/25/2023, 11/04, 05/04/2022, Additional history exists CKD HGB USE SMARTSET 76720 05/02/202505/02, 05/02/2024, 04/25/2024, Additional history exists DXA [...] this encounter Medical Devices Implanted Type Area Parts Cataloguer Device Identifier Shelf Expiration Date Model / Serial / Lot Lens Intraoc 21.5 - [id number] - [id number] Implanted:Qty: 1 on 07/27/2019 by Tristian Araujo MD at OR [facility] Left: Eye BAUSCH & LOMB 04/02/2024 [id number] / [id number] / [id number] Lens Intraoc 21.5 - [id number] - [id number] Implanted:Qty: 1 on 08/08/2019 by Tristian Araujo MD at OR [facility] Right: Eye BAUSCH & LOMB 04/02/2024 [id number] / [id number] / [id number] Stent Axios [id number] - [id number] Implanted:Qty: 1 on 12/07/2022 by Tanya Morris MD at OR [facility] N/A: Abdomen [employer] : ENDOSCOPY [id number] 08/25/2023 [id number] / / [id number] Stent Bili Pigtail 7fr 100mm - [id number] Implanted:Qty: 1 on 12/07/2022 by Tanya Morris MD at OR [facility] N/A: Abdomen [employer] [id number] 08/03/2025 PBD-1033-0 710 / / 2YK Stent Bili Pigtail 7fr 100mm - [id number] Implanted:Qty: 1 on 12/07/2022 by Tanya Morris MD at OR [facility] N/A: Abdomen [employer] [id number] 08/03/2025 PBD-1033-0 710 / / 2YK Power Port 8fr Sngl Lumen Plas - [id number] Implanted:Qty: 1 on 12/29/2022 by Landon Hickman DO at OR [facility] Right: Chest CR BARD : PERIPHERAL VASCULAR [id number] 12/02/2023 [id number] / / [id number] Hanarostent Noncover 10dm 10cm - [id number] Implanted:Qty: 1 on 02/19/2023 by Tanya Morris MD at OR [facility] [employer] [id number] 12/31/2024 SHS-10-100 -180 / / [id number] documented as of this encounter Visit Diagnoses [...] Advance Directives occurred with: Patient Care Teams Fabric Finisher Relationship Specialty Start Date End Date Kristine Kan DO [address] [place] [place] [address] PCP - General Family Medicine 03/16/24 documented as of this encounter
--- OUTSIDE RECORDS SUMMARY | 2024-06-06 23:34 | External Medical Summary | Summary of Care ---
Author Name Unknown Organization [facility] Address [address] [place] [address] Phone [phone] Care Team Providers Care Alpine Guide Name Role Phone Kristine Kan Primary Care Provider + [phone] Reason for Visit * Reason Comments Chemotherapy Leucovorin, 5fu Medication Administration Vitamin B12 * Episode Based Medications (Routine) - Authorized Specialty Diagnoses / Procedures Referred By Contac t Referred To Contact Diagnoses Carcinoma of gallbladder (HCC) Encounter for antineoplastic chemotherapy Procedures [place] LEUCOVORIN CALCIUM INJECTION [place] PALONOSETRON HCL [place] FLUOROURACIL INJECTION [place] OXALIPLATIN Hardik Gross MD [address] [place] [address] [place] [address] Anc Hem/Onc [address] [address] Referral ID Status Reason Start Date Expiration Date V isits Requested Visits Authorized [id number] Authorized 12/14/2023 12/13/2024 999 999 Encounter Details Date Type Department Care Team (Latest Contact Info) Description 04/12/2024 2:00 PM EDT Hem/Onc Treatment Hematology/Oncolog y Treatment, [address] [address] Jessica, Chair 4 Hem On[address] [place] [address] Carcinoma of gallbladder (HCC)*; Encounter for antineoplastic [...] mcgIndications:Vitamin B 12 deficiency 1000 mcg IM [id number] 09/02/2023 08/03/2024 Active documented as of this [...] available. Provide and maintain safe environment. * Joes Pineda RN - 04/11/2024 3:[address] Gross met with patient 04/11. Pt may receive treatment 04/12. documented in this encounter Plan of Treatment Upcoming Encounters Date Type Department Care Team (Late st Contact Info) Description 05/15/2024 11:10 AM EDT Laboratory Laboratory [facility] [address] [place] [address] [facility] [address] [facility] [place] [id number] 05/16/2024 2:30 PM EDT Hem/Onc Treatment Hematology/Oncology Treatment, [place] [address] [place] [address] 06/08/2024 11:00 AM EDT Imaging Radiology [facility] 1st [facility] 132 [facility] [place] [address] 07/10/2024 1:00 PM EDT Office Visit Family Practice [address], [place] [address] [place] [address] Kristine Kan DO 293 [facility] [address] Health Maintenance Due Date Last Done Comments Adult Wellness Visit 2015 COVID-19 Vaccine ( season) 2024 11/08/2023, 07/10/2022, 01/06/2022, Additional history exists Influenza Vaccine (FLU shot) (#1) 2024 06/30/2023, 07/18/2022, 05/18/2021, Additional history exists Albumin/Creatinine Ratio 09/02/2024 09/02/2023, 08/0 10/2021 GFR 11/02/2024 05/02/2024, 07/2 12/2023, 04/10/2024, Additional history exists Depression Monitoring 11/09/2024 11/09/2023 CKD PHOS USE SMARTSET 49353 11/25/2024 11/25/2023, 0 12/05/2022 HbA1c 11/25/2024 11/25/2023, 11/04, 05/04/2022, Additional history exists CKD HGB USE SMARTSET 80982 05/02/202505/02, 05/02/2024, 04/25/2024, Additional history exists DXA [...] this encounter Medical Devices Implanted Type Area Community Engagement Specialist Device Identifier Shelf Expiration Date Model / Serial / Lot Lens Intraoc 21.5 - [id number] - [id number] Implanted:Qty: 1 on 07/27/2019 by Tristian Araujo MD at OR [facility] Left: Eye BAUSCH & LOMB 04/02/2024 [id number] / [id number] / [id number] Lens Intraoc 21.5 - [id number] - [id number] Implanted:Qty: 1 on 08/08/2019 by Tristian Araujo MD at OR [facility] Right: Eye BAUSCH & LOMB 04/02/2024 [id number] / [id number] / [id number] Stent Axios 90mmm96fz - [id number] Implanted:Qty: 1 on 12/07/2022 by Tanya Morris MD at OR [facility] N/A: Abdomen [employer] : ENDOSCOPY [id number] 08/25/2023 [id number] / / [id number] Stent Bili Pigtail 7fr 100mm - [id number] Implanted:Qty: 1 on 12/07/2022 by Tanya Morris MD at OR [facility] N/A: Abdomen [employer] [id number] 08/03/2025 PBD-1033-0 710 / / 2YK Stent Bili Pigtail 7fr 100mm - [id number] Implanted:Qty: 1 on 12/07/2022 by Tanya Morris MD at OR [facility] N/A: Abdomen [employer] [id number] 08/03/2025 PBD-1033-0 710 / / 2YK Power Port 8fr Sngl Lumen Plas - [id number] Implanted:Qty: 1 on 12/29/2022 by Landon Hickman DO at OR [facility] Right: Chest CR BARD : PERIPHERAL VASCULAR [id number] 12/02/2023 [id number] / / [id number] Hanarostent Noncover 10dm 10cm - [id number] Implanted:Qty: 1 on 02/19/2023 by Tanya Morris MD at OR [facility] [email or web address] [id number] 12/31/2024 SHS-10-100 -180 / / [id number] documented as of this encounter Visit Diagnoses [...] Advance Directives occurred with: Patient Care Teams Alpine Guide Relationship Specialty Start Date End Date Kristine Kan DO [address] [place] [address] PCP - General Family Medicine 03/16/24 documented as of this encounter
--- OUTSIDE RECORDS SUMMARY | 2024-06-06 23:34 | External Medical Summary | Summary of Care ---
Author Name Unknown Organization [facility] Address [address] [place] [address] Phone [phone] Care Team Providers Care Complaint Evaluation Officer Name Role Phone Kristine Kan Primary Care Provider Reason for Visit * Reason Comments Procedure Port flush/pump disc onnect * Episode Based Medications (Routine) - Authorized Specialty Diagnoses / Procedures Referred By Contac t Referred To Contact Diagnoses Carcinoma of gallbladder (HCC) Encounter for antineoplastic chemotherapy Procedures AK LEUCOVORIN CALCIUM INJECTION AK PALONOSETRON HCL AK FLUOROURACIL INJECTION AK OXALIPLATIN Hardik Gross MD 200 [facility] [place] [address] Anc Hem/Onc [address] [address] Referral ID Status Reason Start Date Expiration Date V isits Requested Visits Authorized [id number] Authorized 12/14/2023 12/13/2024 999 999 Encounter Details Date Type Department Care Team (Latest Contact Info) Description 04/14/2024 1:00 PM EDT Immunization/ Injection Hematology/Oncology Treatment, [address] [address] Jessica, Chair 10 Hem Onc [address] [place] [address] Carcinoma of gallbladder (HCC)*; Encounter for antineoplastic [...] Date Status vitamin b-12 (Cyanocobalamin) inj 1,000 mcgIndications:Vitam in B 12 deficiency 1000 mcg IM [id number] 09/02/2023 08/03/2024 Active Fluorouracil (5-Fu) 4,475 mg in NSS 138 mL infusion 4475 mg IV CONTINUOUS 04/12/2024 04/14/2024 Discontinued documented as of this encounter (statuses as [...] Nursing Notes * Lily Butt RN - 04/14/2024 1:28 PM EDT Patient to chair 7 ambulatory Patient denies any nausea, vomiting, diarrhea, fever or pain Presents for VAD flush. Tolerated procedure without difficulty. Advised pt to call if redness, swelling, tenderness, or drainage occurs at VAD site, verbalized understanding and has contact info. Good blood return from port Pump disconnected as ordered documented in this encounter Plan of Treatment Upcoming Encounters Date Type Department Care Team (Late st Contact Info) Description 05/15/2024 11:10 AM EDT Laboratory Laboratory [facility] [address] [place] [phone] Jessica [facility] [place] [address] 05/16/2024 2:30 PM EDT Hem/Onc Treatment Hematology/Oncology Treatment, [place] [address] [place] [address] 06/08/2024 11:00 AM EDT Imaging Radiology [facility] 1st [facility], [place] [address] [place] [address] 07/10/2024 1:00 PM EDT Office Visit Family Practice [address], [place] [facility] [address] Kristine [facility] [address] Health Maintenance Due Date Last Done Comments Adult Wellness Visit 2015 COVID-19 Vaccine ( season) 2024 11/08/2023, 07/10/2022, 01/06/2022, Additional history exists Influenza Vaccine (FLU shot) (#1) 2024 06/30/2023, 07/18/2022, 05/18/2021, Additional history exists Albumin/Creatinine Ratio 09/02/2024 09/02/2023, 08/0 10/2021 GFR 11/02/2024 05/02/2024, 07/2 12/2023, 04/10/2024, Additional history exists Depression Monitoring 11/09/2024 11/09/2023 CKD PHOS USE SMARTSET 79603 11/25/2024 11/25/2023, 0 12/05/2022 HbA1c 11/25/2024 11/25/2023, 02/1 01/2023, 05/04/2022, Additional history exists CKD HGB USE SMARTSET 72550 05/02/202505/02, 05/02/2024, 04/25/2024, Additional history exists DXA [...] this encounter Medical Devices Implanted Type Area Tree Surgeon Helper Device Identifier Shelf Expiration Date Model / Serial / Lot Lens Intraoc 21.5 - [id number] - [id number] Implanted:Qty: 1 on 07/27/2019 by Tristian Araujo MD at OR [facility] Left: Eye BAUSCH & LOMB 04/02/2024 [id number] / [id number] / [id number] Lens Intraoc 21.5 - [id number] - [id number] Implanted:Qty: 1 on 08/08/2019 by Tristian Araujo MD at OR [facility] Right: Eye BAUSCH & LOMB 04/02/2024 [id number] / [id number] / [id number] Stent Axios 98mjx44aw - [id number] Implanted:Qty: 1 on 12/07/2022 by Tanya Morris MD at OR [facility] N/A: Abdomen [employer] : ENDOSCOPY [id number] 08/25/2023 [id number] / / [id number] Stent Bili Pigtail 7fr 100mm - [id number] Implanted:Qty: 1 on 12/07/2022 by Tanya Morris MD at OR [facility] N/A: Abdomen [employer] [id number] 08/03/2025 PBD-1033-0 710 / / [id number] Stent Bili Pigtail 7fr 100mm - [id number] Implanted:Qty: 1 on 12/07/2022 by Tanya Morris MD at OR [facility] N/A: Abdomen [employer] [id number] 08/03/2025 PBD-1033-0 710 / / 2YK Power Port 8fr Sngl Lumen Plas - [id number] Implanted:Qty: 1 on 12/29/2022 by Landon Hickman DO at OR [facility] Right: Chest CR BARD : PERIPHERAL VASCULAR [id number] 12/02/2023 [id number] / / [id number] Hanarostent Noncover 10dm 10cm - [id number] Implanted:Qty: 1 on 02/19/2023 by Tanya Morris MD at OR [facility] [employer] [id number] 12/31/2024 [facility]-10-100 -180 / / [id number] documented as of this encounter Visit Diagnoses [...] Lock, PRN Other, IV Flush, Starting on Wed04/14/24 at 1311, Until Wed04/14/24 at 1730, For 24 hours, Do not flush if lock, PICC, or central line not in place; IV infusing or unable to flush. Given 04/14/2024 1:16 PM EDT 500 Units sodium chloride 0.9 % flush central line 10 mL 10 mL, IV Push, PRN Other, IV Flush, Starting on Wed04/14/24 at 1311, Until Wed04/14/24 at 1730, For 24 hours, Do not flush if lock, PICC, or central line not in place; IV infusing or unable to flush. Given 04/14/2024 1:12 PM EDT 10 mL documented in this encounter Advance Directives * Full Code (Latest Code Status on File) Date Activated Date Inactivated Comments 12/04/2022 10:10 PM 12/08/2022 3:55 PM This order re flects the patients wishes and were consensually agreed upon. Question Answer Comments Discussion of Advance Directives occurred with: Patient Care Teams Complaint Evaluation Officer Relationship Specialty Start Date End Date Kristine Kan DO [address] [place] [address] PCP - General Family Medicine 03/16/24 documented as of this encounter
--- OUTSIDE RECORDS SUMMARY | 2024-06-06 23:34 | External Medical Summary | Summary of Care ---
Author Name Unknown Organization [facility] Address [address] [place] [address] Phone [phone] Care Team Providers Care Needle Leader Name Role Phone Kristine Kan Primary Care Provider + [phone] Reason for Visit * Reason Comments Chemotherapy Leuco/5FU * Episode Based Medications (Routine) - Authorized Specialty Diagnoses / Procedures Referred By Marcela johansen Referred To Contact Diagnoses Carcinoma of gallbladder (HCC) Encounter for antineoplastic chemotherapy Procedures WA LEUCOVORIN CALCIUM INJECTION WA PALONOSETRON HCL [place] FLUOROURACIL INJECTION WA OXALIPLATIN Hardik Gross MD [address] [place] [address] [place] [address] Anc Hem/Onc [address] [address] Referral ID Status Reason Start Date Expiration Date V isits Requested Visits Authorized [id number] Authorized 12/14/2023 12/13/2024 999 999 Encounter Details Date Type Department Care Team (Latest Contact Info) Description 05/03/2024 2:00 PM EDT Hem/Onc Treatment Hematology/Oncolog y Treatment, [address] [address] Jessica, Chair 11 Hem On[address] [place] [address] Carcinoma of gallbladder (HCC)*; Encounter for antineoplastic [...] mcgIndications:Vitamin B 12 deficiency 1000 mcg IM [id number] 09/02/2023 08/03/2024 Active documented as of this [...] 05/10/2024 10:00 AM EDT Office Visit Hematology/Oncology [facility] [address] [place] [phone] Hardik Gross MD 200 [place] [address] 05/16/2024 11:00 AM EDT Laboratory Laboratory [facility] [place] [address] [place] [address] Park, [facility] [place] [address] 05/17/2024 1:30 PM EDT Hem/Onc Treatment Hematology/Oncology Treatment, [place] [address] [place] [phone] Jessica, Chair 4 Hem Onc [facility] 200 [place] [address] 07/10/2024 1:00 PM EDT Office Visit Family Practice 65 [facility] [address] [place] [address] Kristine Kan DO 293 [place] [address] Health Maintenance Due Date Last Done Comments Adult Wellness Visit 2015 COVID-19 Vaccine (24 season) 2024 11/08/2023, 07/10/2022, 01/06/2022, Additional history exists Influenza Vaccine (FLU shot) (#1) 2024 06/30/2023, 07/18/2022, 05/18/2021, Additional history exists Albumin/Creatinine Ratio 09/02/2024 09/02/2023, 08/0 10/2021 GFR 11/02/2024 05/02/2024, 07/2 12/2023, 04/10/2024, Additional history exists Depression Monitoring 11/09/2024 11/09/2023 CKD PHOS USE SMARTSET 95809 11/25/2024 11/25/2023, 0 12/05/2022 HbA1c 11/25/2024 11/25/2023, 11/04, 05/04/2022, Additional history exists CKD HGB USE SMARTSET 93716 05/02/202505/02, 05/02/2024, 04/25/2024, Additional history exists DXA [...] this encounter Medical Devices Implanted Type Area Flyer Builder Device Identifier Shelf Expiration Date Model / Serial / Lot Lens Intraoc 21.5 - [id number] - [id number] Implanted:Qty: 1 on 07/27/2019 by Tristian Araujo MD at OR [facility] Left: Eye BAUSCH & LOMB 04/02/2024 [id number] / [id number] / [id number] Lens Intraoc 21.5 - [id number] - [id number] Implanted:Qty: 1 on 08/08/2019 by Tristian Araujo MD at OR [facility] Right: Eye BAUSCH & LOMB 04/02/2024 [id number] / [id number] / [id number] Stent Axios 13axn57li - [id number] Implanted:Qty: 1 on 12/07/2022 by Tanya Morris MD at OR [facility] N/A: Abdomen [employer] : ENDOSCOPY [id number] 08/25/2023 [id number] / / [id number] Stent Bili Pigtail 7fr 100mm - [id number] Implanted:Qty: 1 on 12/07/2022 by Tanya Morris MD at OR [facility] N/A: Abdomen [employer] [id number] 08/03/2025 PBD-1033-0 710 / / 2YK Stent Bili Pigtail 7fr 100mm - [id number] Implanted:Qty: 1 on 12/07/2022 by Tanya Morris MD at OR [facility] N/A: Abdomen [employer] [id number] 08/03/2025 PBD-1033-0 710 / / 2YK Power Port 8fr Sngl Lumen Plas - [id number] Implanted:Qty: 1 on 12/29/2022 by Landon Hickman DO at OR [facility] Right: Chest CR BARD : PERIPHERAL VASCULAR [id number] 12/02/2023 [id number] / / [id number] Hanarostent Noncover 10dm 10cm - [id number] Implanted:Qty: 1 on 02/19/2023 by Tanya Morris MD at OR [facility] [employer] [id number] 12/31/2024 SHS-10-100 -180 / / [id number] documented as of this encounter Visit Diagnoses [...] Advance Directives occurred with: Patient Care Teams Needle Leader Relationship Specialty Start Date End Date Kristine Kan DO [address] [place] [facility] [place] [address] PCP - General Family Medicine 03/16/24 documented as of this encounter
--- OUTSIDE RECORDS SUMMARY | 2024-06-06 23:34 | External Medical Summary | Summary of Care ---
Author Name Unknown Organization [facility] Address [address] [place] [address] Phone [phone] Care Team Providers Care Pararescue Manager Name Role Phone Kristine Kan Primary Care Provider + [phone] Reason for Visit * Reason Comments Chemotherapy Leuco/5FU * Episode Based Medications (Routine) - Authorized Specialty Diagnoses / Procedures Referred By Marcela johansen Referred To Contact Diagnoses Carcinoma of gallbladder (HCC) Encounter for antineoplastic chemotherapy Procedures WA LEUCOVORIN CALCIUM INJECTION WA PALONOSETRON HCL WA FLUOROURACIL INJECTION WA OXALIPLATIN Hardik Gross MD [address] [place] [address] [place] [address] Anc Hem/Onc [address] [address] Referral ID Status Reason Start Date Expiration Date V isits Requested Visits Authorized [id number] Authorized 12/14/2023 12/13/2024 999 999 Encounter Details Date Type Department Care Team (Latest Contact Info) Description 05/03/2024 2:00 PM EDT Hem/Onc Treatment Hematology/Oncolog y Treatment, [address] [address] Jessica, Chair 11 Hem Onc [address] [place] [address] Carcinoma of gallbladder (HCC)*; Encounter for antineoplastic [...] mcgIndications:Vitamin B 12 deficiency 1000 mcg IM [id number] 09/02/2023 08/03/2024 Active documented as of this [...] 05/10/2024 10:00 AM EDT Office Visit Hematology/Oncology [facility] [address] [place] [phone] Hardik Gross MD 200 [facility] [place] [address] 05/16/2024 11:00 AM EDT Laboratory Laboratory [facility] [place] 200 [facility] [place] [address] Park, Lab [facility] 200 [facility] [place] [address] 05/17/2024 1:30 PM EDT Hem/Onc Treatment Hematology/Oncology Treatment, [place] [address] [place] [address] Jessica, Chair 4 Hem Onc [facility] 200 [facility] [place] [address] 07/10/2024 1:00 PM EDT Office Visit Family Practice 65 [facility] [address] [place] [address] Kristine Kan DO 293 [place] [address] Health Maintenance Due Date Last Done Comments Adult Wellness Visit 2015 COVID-19 Vaccine (24 season) 2024 11/08/2023, 07/10/2022, 01/06/2022, Additional history exists Influenza Vaccine (FLU shot) (#1) 2024 06/30/2023, 07/18/2022, 05/18/2021, Additional history exists Albumin/Creatinine Ratio 09/02/2024 09/02/2023, 08/0 10/2021 GFR 11/02/2024 05/02/2024, 07/2 12/2023, 04/10/2024, Additional history exists Depression Monitoring 11/09/2024 11/09/2023 CKD PHOS USE SMARTSET 62248 11/25/2024 11/25/2023, 0 12/05/2022 HbA1c 11/25/2024 11/25/2023, 11/04, 05/04/2022, Additional history exists CKD HGB USE SMARTSET 46619 05/02/202505/02, 05/02/2024, 04/25/2024, Additional history exists DXA [...] this encounter Medical Devices Implanted Type Area Full Service Supervisor Device Identifier Shelf Expiration Date Model / Serial / Lot Lens Intraoc 21.5 - [id number] - [id number] Implanted:Qty: 1 on 07/27/2019 by Tristian Araujo MD at OR [facility] Left: Eye BAUSCH & LOMB 04/02/2024 [id number] / [id number] / [id number] Lens Intraoc 21.5 - [id number] - [id number] Implanted:Qty: 1 on 08/08/2019 by Tristian Araujo MD at OR [facility] Right: Eye BAUSCH & LOMB 04/02/2024 [id number] / [id number] / [id number] Stent Axios 40xmg31go - [id number] Implanted:Qty: 1 on 12/07/2022 by Tanya Morris MD at OR [facility] N/A: Abdomen [employer] : ENDOSCOPY [id number] 08/25/2023 [id number] / / [id number] Stent Bili Pigtail 7fr 100mm - [id number] Implanted:Qty: 1 on 12/07/2022 by Tanya Morris MD at OR [facility] N/A: Abdomen [employer] [id number] 08/03/2025 PBD-1033-0 710 / / 2YK Stent Bili Pigtail 7fr 100mm - [id number] Implanted:Qty: 1 on 12/07/2022 by Tanya Morris MD at OR [facility] N/A: Abdomen [employer] [id number] 08/03/2025 PBD-1033-0 710 / / 2YK Power Port 8fr Sngl Lumen Plas - [id number] Implanted:Qty: 1 on 12/29/2022 by Landon Hickman DO at OR [facility] Right: Chest CR BARD : PERIPHERAL VASCULAR [id number] 12/02/2023 [id number] / / [id number] Hanarostent Noncover 10dm 10cm - [id number] Implanted:Qty: 1 on 02/19/2023 by Tanya Morris MD at OR [facility] [employer] [id number] 12/31/2024 SHS-10-100 -180 / / [id number] documented as of this encounter Visit Diagnoses [...] Advance Directives occurred with: Patient Care Teams Pararescue Manager Relationship Specialty Start Date End Date Kristine Kan DO [address] [place] [place] [address] PCP - General Family Medicine 03/16/24 documented as of this encounter
--- OUTSIDE RECORDS SUMMARY | 2024-06-06 23:34 | External Medical Summary | Summary of Care ---
Author Name Unknown Organization [facility] Address [address] [place] [address] Phone [phone] Care Team Providers Care Detective Homicide Squad Name Role Phone Kristine Kan Primary Care Provider + [phone] Reason for Visit * Reason Comments Chemotherapy Leucovorin, 5fu Medication Administration Vitamin B12 * Episode Based Medications (Routine) - Authorized Specialty Diagnoses / Procedures Referred By Contac t Referred To Contact Diagnoses Carcinoma of gallbladder (HCC) Encounter for antineoplastic chemotherapy Procedures CA LEUCOVORIN CALCIUM INJECTION CA PALONOSETRON HCL CA FLUOROURACIL INJECTION CA OXALIPLATIN Hardik Gross MD [address] [place] [address] [place] [address] Anc Hem/Onc [address] [address] Referral ID Status Reason Start Date Expiration Date V isits Requested Visits Authorized [id number] Authorized 12/14/2023 12/13/2024 999 999 Encounter Details Date Type Department Care Team (Latest Contact Info) Description 04/12/2024 2:00 PM EDT Hem/Onc Treatment Hematology/Oncolog y Treatment, [address] [address] Jessica, Chair 4 Hem Onc [address] [place] [address] Carcinoma of gallbladder (HCC)*; Encounter for antineoplastic [...] mcgIndications:Vitamin B 12 deficiency 1000 mcg IM [id number] 09/02/2023 08/03/2024 Active documented as of this [...] Description 05/15/2024 11:10 AM EDT Laboratory Laboratory [facility] [address] [place] [address] [facility] 200 [facility] [place] [address] 05/16/2024 2:30 PM EDT Hem/Onc Treatment Hematology/Oncology Treatment, [place] [address] [place] [address] 06/08/2024 11:00 AM EDT Imaging Radiology [facility] 1st [facility] 132 [facility] [place] [address] 07/10/2024 1:00 PM EDT Office Visit Family Practice [address], [place] [address] [place] [address] Kristine Kan DO [address] [facility] [address] Health Maintenance Due Date Last Done Comments Adult Wellness Visit 2015 COVID-19 Vaccine ( season) 2024 11/08/2023, 07/10/2022, 01/06/2022, Additional history exists Influenza Vaccine (FLU shot) (#1) 2024 06/30/2023, 07/18/2022, 05/18/2021, Additional history exists Albumin/Creatinine Ratio 09/02/2024 09/02/2023, 08/0 10/2021 GFR 11/02/2024 05/02/2024, 07/2 12/2023, 04/10/2024, Additional history exists Depression Monitoring 11/09/2024 11/09/2023 CKD PHOS USE SMARTSET 36988 11/25/2024 11/25/2023, 0 12/05/2022 HbA1c 11/25/2024 11/25/2023, 11/04, 05/04/2022, Additional history exists CKD HGB USE SMARTSET 15547 05/02/202505/02, 05/02/2024, 04/25/2024, Additional history exists DXA [...] this encounter Medical Devices Implanted Type Area Basket Turner Device Identifier Shelf Expiration Date Model / Serial / Lot Lens Intraoc 21.5 - [id number] - [id number] Implanted:Qty: 1 on 07/27/2019 by Tristian Araujo MD at OR [facility] Left: Eye BAUSCH & LOMB 04/02/2024 [id number] / [id number] / [id number] Lens Intraoc 21.5 - [id number] - [id number] Implanted:Qty: 1 on 08/08/2019 by Tristian Araujo MD at OR [facility] Right: Eye BAUSCH & LOMB 04/02/2024 [id number] / [id number] / [id number] Stent Axios 89kqh29fq - [id number] Implanted:Qty: 1 on 12/07/2022 by Tanya Morris MD at OR [facility] N/A: Abdomen [employer] : ENDOSCOPY [id number] 08/25/2023 [id number] / / [id number] Stent Bili Pigtail 7fr 100mm - [id number] Implanted:Qty: 1 on 12/07/2022 by Tanya Morris MD at OR [facility] N/A: Abdomen [employer] [id number] 08/03/2025 PBD-1033-0 710 / / 2YK Stent Bili Pigtail 7fr 100mm - [id number] Implanted:Qty: 1 on 12/07/2022 by Tanya Morris MD at OR [facility] N/A: Abdomen [employer] [id number] 08/03/2025 PBD-1033-0 710 / / 2YK Power Port 8fr Sngl Lumen Plas - [id number] Implanted:Qty: 1 on 12/29/2022 by Landon Hickman DO at OR [facility] Right: Chest CR BARD : PERIPHERAL VASCULAR [id number] 12/02/2023 [id number] / / [id number] Hanarostent Noncover 10dm 10cm - [id number] Implanted:Qty: 1 on 02/19/2023 by Tanya Morris MD at OR [facility] [employer] [id number] 12/31/2024 SHS-10-100 -180 / / [id number] documented as of this encounter Visit Diagnoses [...] Advance Directives occurred with: Patient Care Teams Detective Homicide Squad Relationship Specialty Start Date End Date Kristine Kan DO [address] [place] [address] PCP - General Family Medicine 03/16/24 documented as of this encounter
--- OUTSIDE RECORDS SUMMARY | 2024-06-06 23:35 | External Medical Summary | Summary of Care ---
Author Name Unknown Organization [facility] Address [address] [place] [address] Phone [phone] Care Team Providers Care Firer Portable Boiler Name Role Phone Kristine Kan DO Primary Care Provider [phone] Reason for Visit * Reason Comments Follow Up Encounter Details Date Type Department Care Team (Latest Contact Info) Description 05/08/2024 1:40 PM EDT Office Visit Family Practice [address] [facility] [address] [place] [address] Kristine Kan [address] [place] [address] Dizziness*; Carcinoma of gallbladder (HCC); Anemia due to antineoplastic chemotherapy; HTN, goal below 140/90 Allergies Active Allergy Reactions Criticality Noted Date [...] on 05/08/2024 Atenolol 25 MG Oral Tablet (Tenormin)Indicat ions:HTN, goal below 140/90 Take 0.5 Tablets by mouth in the morning. 05/08/2024 Active Atenolol 25 MG Oral Tablet (Tenormin)Indicat ions:HTN, goal below 140/90 Take 1 Tablet by mouth in the morning. 90 Tablet 3 12/29/2023 Discontinued Hospital, Clinic, or Other Facility Administered Medication Ordered Dose Route Frequency Start Date End Date Status vitamin b-12 (Cyanocobalamin) inj 1,000 mcgIndications:Vitamin B 12 deficiency 1000 mcg IM [id number] 09/02/2023 08/03/2024 Active documented as of this [...] Past Smokeless Tobacco: Never Tobacco Cessation:Counseling Given: Yes Alcohol Use Standard Drinks/Week Comments Not Currently [...] Sign Reading Time Taken Comments Blood Pressure 102/70 05/08/2024 3:09 PM EDT Pulse 84 05/08/2024 3:09 PM EDT Temperature 36.4 C (97.5 F) 05/08/2024 2:31 PM ED T Respiratory Rate 14 05/08/2024 2:31 PM EDT Oxygen Saturation 99% 05/08/2024 2:31 PM EDT Inhaled Oxygen Concentration - - Weight 73.6 kg (162 lb 3.2 oz) 05/08/2024 2:31 P M EDT Height 165.1 cm (5' 5") 05/08/2024 2:31 PM EDT Body Mass Index 26.99 05/08/2024 2:31 PM EDT documented in this [...] as of this encounter Progress Notes * Bethanie Hernandez RN - 05/08/2024 3:17 PM EDT 3 positional blood pressure Lying-116/72, HR 76 Sitting 114/72, HR 80 Standing 102/70, HR 84 * Kristine Kan DO - 05/08/2024 2:22 PM EDT SUBJECTIVE: Chief Complaint Patient presents with Follow Up HPI: Anjelica Wiley is a 74 year old female who presents today for regular return. Pt notes that she had two falls about a month ago. She feels weak. She notes that her dizziness is worse when she is going to stand up. She is concerned it is her Eliquis. Reviewed that she has had dizziness for quite some time prior to starting the Eliquis. PHM: Patient Active Problem List Diagnosis Corneal dystrophy Recurrent corneal erosion ADVANCE DIRECTIVE INFORMATION Prolapse of vaginal sanabria Restless leg syndrome HTN, goal below 140/90 Hypothyroidism Invasive ductal carcinoma of breast, female (HCC) Prediabetes Gastroesophageal reflux disease with esophagitis without hemorrhage Hyperbilirubinemia Gallbladder mass Carcinoma of gallbladder (HCC) Encounter for antineoplastic chemotherapy Recurrent major depressive disorder (HCC) Hypokalemia Dehydration Protein-calorie malnutrition (HCC) B12 deficiency Chronic kidney disease, stage 3b (HCC) Hypertensive kidney disease with stage 3b chronic kidney disease (HCC) FERDINAND (generalized anxiety disorder) Acute 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 of both lower extremities (HCC) Current Outpatient Medications Medication Sig Dispense Refill Calcium Carbonate-Vitamin D 600-400 MG-UNIT Oral Tablet Take 1 Tab by mouth daily. 90 Tab 3 polyethylene glycol 3350 119 gram OR POWD Take 119 g by mouth once. 1/2 capful daily Magnesium 200 MG Oral Tablet Take 2 Tablets by mouth in the morning. Pt reports she is taking 400 mg. Ketoconazole 2 % External Cream Apply to [...] 1HR PRIOR TO ACCESSING. 30 g 1 Atenolol 25 MG Oral Tablet (Tenormin) Take 1 Tablet by mouth in the morning. (Patient taking differently: Take 1 Tablet by mouth in the morning. Pt is taking now .) 90 Tablet 3 Artificial Tears 0.1-0.3 % Ophthalmic Solution (Dextran 70-Hypromellose) Instill into eye at bedtime. Megestrol Acetate 625 MG/5ML Oral Suspension Take 4 ml by mouth daily (Patient taking differently: Take 4 ml by mouth daily. 05/08/24 - pt reports she is only taking 2 ml.) 300 mL 3 Apixaban 5 MG Oral Tablet (Eliquis) Take 1 Tablet by mouth in the morning and 1 Tablet before bedtime. Do not start before April 05, 2024. 60 Tablet 5 Sodium Chloride (Hypertonic) 5 % Ophthalmic Solution 1 Drop as needed. (Patient not taking: Reported on 05/08/2024) Potassium Chloride Karlene ER 10 MEQ Oral Tablet Extended Release Take 1 Tablet by mouth daily. (Patient not taking: Reported on 05/08/2024) 30 Tablet 3 Apixaban Starter Pack 5 MG Oral Tablet Therapy Pack (Eliquis DVT/PE Starter Pack) 10 mg twice a dayby mouth for 7 days, then 5 mg by mouth twice a day. 74 Tablet 0 Ciprofloxacin HCl 500 MG Oral Tablet (Cipro) Take 1 Tablet by mouth in the morning. (Patient not taking: Reported on 05/08/2024) 7 Tablet 0 Current Facility-Administered Medications Medication Dose Route Frequency Provider Last Rate Last Admin vitamin b-12 (Cyanocobalamin) inj 1,000 mcg 1,000 mcg Intramuscular Q4 Weeks Kristine Kan DO 1,000 mcg at 09/02/23 1509 Past Medical History: Diagnosis Date Breast cancer (HCC) 03/2017 left breast Depressive disorder, not elsewhere classified Hypertension Hypertention, malignant, with acute intensive management INFORMATION UTERINE PROLAPSE INFORMATION CYSTOCELE RSV infection Past Surgical History: Procedure Laterality Date DILATION AND CURETTAGE (D&C) 1985, 88 D&C EGD, FLEXIBLE,W/ENDOSCOPIC US N/A 12/04/2022 [facility], EGD / EUS /severe stenosis was found in the duodenal bulb /mass found in gallbladder in duodenal wall / biopsies adenocarcinoma of the gallbladder EGD, W/ENDOSCOPIC US N/A 12/07/2022 severe duodenal bulb stenosis, large gallbladder mass precluding/ESOPHAGOGASTRODUODENOSCOPY (EGD), FLEXIBLE, TRANSORAL, ENDOSCOPIC ULTRASOUND performed by Tanya Morris MD at OR [facility] ERCP W/ STENT EXCHANGE N/A 02/19/2023 done through [facility] axios stent, severe stenosis in duodenal bulb/single malignant biliary stricture/plastic biliary stent exchanged for uncovered metal biliary stent/ENDOSCOPIC RETROGRADE CHOLANGIOPANCREATOGRAPHY (ERCP) W/STENT REMOVAL AND EXCHANGE; INC DILATION, GUIDE WIRE AND SPHINCTEROTOMY performed by Tanya Morris MD at OR [facility] ERCP, DIAGNOSTIC, SPECIMEN COLLECTION N/A 12/07/2022 ENDOSCOPIC RETROGRADE CHOLANGIOPANCREATOGRAPHY (ERCP) DIAGNOSTIC performed by Dee Pineda OR [facility] INFORMATION 12/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 INSER TUNN ACC DEV;5 YRS/OLDER Right 12/29/2022 INSERT TUNNELED CENTRAL VENOUS ACCESS WITH SUBQ PORT performed by Landon Hickman DO at OR [facility] LAPAROSCOPY DIAGNOSTIC 1988 for infertility MASTECTOMY, PARTIAL Left 05/13/2017 malignant RADIATION THERAPY Left 08/04/2017 RADIATION THERAPY DOSE PLAN Left 08/04/2017 RELIEVE INNER EYE PRESSURE Left 07/27/2019 left GONIOTOMY performed by Tristian Araujo MD at OR [facility] RELIEVE INNER EYE PRESSURE Right 08/08/2019 right GONIOTOMY performed by Tristian Araujo MD at OR [facility] REMOVE CATARACT, INSERT LENS PROSTH Left 07/27/2019 left EXTRACAPSULAR CATARACT REMOVAL WITH INTRAOCULAR LENS performed by Tristian Araujo MD at OR [facility] REMOVE CATARACT, INSERT LENS PROSTH Right 08/08/2019 right EXTRACAPSULAR CATARACT REMOVAL WITH INTRAOCULAR LENS performed by Tristian Araujo MD at OR [facility] SENTINEL LYMPH NODE BIOPSY PERFORMED Left 05/13/2017 benign US GUIDED BREAST BIOPSY LEFT Left 04/02/2017 invasive ductal carcinoma as well as focal ductal carcinoma in situ US NEEDLE BIOPSY Left 04/02/2017 Malignant VAGINAL DELIVERY ONLY Review of patient's allergies indicates: Allergen Reactions Sulfamethoxazole Edema face/lips/tongue Trimethoprim Edema face/lips/tongue Latex Rash From a dressing Family History Problem Relation Name Age of Onset Asthma Mother Heart Disorder Mother CHF Neurological Disorder Mother brain tumor benign Hypertension Mother Heart Disorder Father mi Breast Cancer Sister 69 Lumpectomy done at ~ age 39, but unsure if cancer. Pt at 69 after Stage IV dx'd. Breast Cancer Aunt (Maternal) post menopausal Breast Cancer Aunt (Paternal) Family Status Relation Status Mo Fa Sis Amado Alive MAUNT (Not Specified) PAUNT (Not Specified) Social History Tobacco Use Smoking status: Never Passive exposure: Past Smokeless tobacco: Never Substance Use Topics Alcohol use: Not Currently Alcohol/week: 1.0 standard drink of alcohol Types: 1 5 oz of wine per week Comment: social Vaping/E-Cigarette Use Vaping/E-Cigarette Use Never User Passive Exposure No Vaping/E-Cigarette Substances Nicotine No Other No Flavoring No THC No Cannabidiol (CBD) No Vaping/E-Cigarette Devices Disposable No Pre-filled or Refillable Cartridge No Refillable Tank No Pre-filled Pod No REVIEW OF SYSTEMS: Review of Systems Constitutional: Negative for chills, fatigue, fever and unexpected weight change. Respiratory: Negative for cough, chest tightness, shortness of breath and wheezing. Cardiovascular: Negative for chest pain, palpitations and leg swelling. Gastrointestinal: Negative for abdominal pain, constipation, diarrhea, nausea and vomiting. Musculoskeletal: Negative for arthralgias, gait problem and joint swelling. Skin: Negative for color change, pallor and rash. OBJECTIVE: BP 106/66 (BP Site: Right Arm, BP Position: Sitting, BP Cuff Size: Regular) | Pulse 74 | Temp 36.4 C (97.5 F) (Tympanic) | Resp 14 | Ht 1.651 m (5' 5") | Wt 73.6 kg (162 lb 3.2 oz) | SpO2 99% | BMI 26.99 kg/m | BSA 1.84 m PHYSICAL EXAM: Physical Exam Constitutional: General: She is not in acute distress. Appearance: She is well-developed. She is ill-appearing. Cardiovascular: Rate and Rhythm: Normal rate and regular rhythm. Heart sounds: Normal heart sounds. No murmur heard. No friction rub. No gallop. Pulmonary: Effort: Pulmonary effort is normal. No respiratory distress. Breath sounds: Normal breath sounds. No wheezing or rales. Abdominal: General: Bowel sounds are normal. There is no distension. Palpations: Abdomen is soft. Tenderness: There is no abdominal tenderness. There is no guarding. Musculoskeletal: General: No tenderness or deformity. Normal range of motion. Skin: General: Skin is warm and dry. Coloration: Skin is not pale. Findings: No erythema or rash. Neurological: Mental Status: She is alert and oriented to person, place, and time. ASSESSMENT/PLAN: (R42) Dizziness (primary encounter diagnosis) Plan: 3 POSITIONAL BLOOD PRESSURE Dizziness is multifactorial secondary to chemo, anemia and low BP. Some drop in BP with orthostaticchecks. Given dizziness will have her 1/2 her atenolol. Reviewed that dizziness is not a side effect of Eliquis. Would continue. (C23) Carcinoma of gallbladder (HCC) (D64.81, T45.1X5A) Anemia due to antineoplastic chemotherapy Plan: pt will continue to follow with oncology. She is scheduled for lab studies. (I10) HTN, goal below 140/90 Plan: Atenolol 25 MG Oral Tablet (Tenormin) Pt will decrease her atenolol to 12.5 mg. Follow-up: 2 months Total time today including reviewing chart before the visit, pertinent labs, imaging reports, face to face time, and documentation time was 36 minutes. Kristine Kan DO documented in this encounter Nursing Notes * Jen Slater LPN - 05/08/2024 2:29 PM EDT Patient here for routine follow up visit. Reports she has had 2 falls in the past 2 months. Had dizziness. Pt reports she has dizziness when she stands up. Also reports she is weak and tired. Pt has appt with Dr. Gross on Wednesday. Has questions about Eliquis - will only have enough for 1 a day for the next 2 days. She is unsure if he will change it. documented in this encounter Plan of Treatment Upcoming Encounters Date Type Department Care Team (Late st Contact Info) Description 05/10/2024 10:00 AM EDT Office Visit Hematology/Oncology [facility] [address] [place] [id number] Hardik Gross MD [address] [place], [place] [address] 05/16/2024 11:00 AM EDT Laboratory Laboratory [facility] [address] [place] [id number] [place] [facility] [address] [facility] [place], [place] [address] 05/17/2024 1:30 PM EDT [facility] [address] [place], [place] [phone] Jessica, Chair 11 Hem Onc [facility] [address] [facility] [place], [place] [address] 07/10/2024 1:00 PM EDT Office Visit Family Practice [address], [place] [address] [facility] [phone] Kristine Kan DO [address] [place] [address] Scheduled Orders Name Type Priority Associated Diagnoses Orde r Schedule 3 POSITIONAL BLOOD PRESSURE Procedures Routine Dizziness Ordered: 05/08/2024 Health Maintenance Due Date Last Done Comments Adult Wellness Visit 2015 COVID-19 Vaccine ( season) 2024 11/08/2023, 07/10/2022, 01/06/2022, Additional history exists Influenza Vaccine (FLU shot) (#1) 2024 06/30/2023, 07/18/2022, 05/18/2021, Additional history exists Albumin/Creatinine Ratio 09/02/2024 09/02/2023, 08/0 10/2021 GFR 11/02/2024 05/02/2024, 07/2 12/2023, 04/10/2024, Additional history exists Depression Monitoring 11/09/2024 11/09/2023 CKD PHOS USE SMARTSET 58103 11/25/2024 11/25/2023, 0 12/05/2022 HbA1c 11/25/2024 11/25/2023, 11/04, 05/04/2022, Additional history exists CKD HGB USE SMARTSET 83308 05/02/202505/02, 05/02/2024, 04/25/2024, Additional history exists DXA [...] this encounter Medical Devices Implanted Type Area Montessori Teacher Device Identifier Shelf Expiration Date Model / Serial / Lot Lens Intraoc 21.5 - [id number] - [id number] Implanted:Qty: 1 on 07/27/2019 by Tristian Araujo MD at OR [facility] Left: Eye BAUSCH [employer] LOMB 04/02/2024 [id number] / [id number] / [id number] Lens Intraoc 21.5 - [id number] - [id number] Implanted:Qty: 1 on 08/08/2019 by Tristian Araujo MD at OR [facility] Right: Eye BAUSCH & LOMB 04/02/2024 [id number] / [id number] / [id number] Stent Axios [id number] - [id number] Implanted:Qty: 1 on 12/07/2022 by Tanya Morris MD at OR [facility] N/A: Abdomen [employer] : ENDOSCOPY [id number] 08/25/2023 [id number] / / [id number] Stent Bili Pigtail 7fr 100mm - [id number] Implanted:Qty: 1 on 12/07/2022 by Tanya Morris MD at OR [facility] N/A: Abdomen [employer] [id number] 08/03/2025 PBD-1033-0 710 / / [id number] Stent Bili Pigtail 7fr 100mm - [id number] Implanted:Qty: 1 on 12/07/2022 by Tanya Morris MD at OR [facility] N/A: Abdomen Med[employer]ram [employer] [id number] 08/03/2025 PBD-1033-0 710 / / [id number] Power Port 8fr Sngl Lumen Plas - [id number] Implanted:Qty: 1 on 12/29/2022 by Landon Hickman DO at OR [facility] Right: Chest CR BARD : PERIPHERAL VASCULAR [id number] 12/02/2023 [id number] / / [id number] Hanarostent Noncover 10dm 10cm - [id number] Implanted:Qty: 1 on 02/19/2023 by Tanya Morris MD at OR [facility] Medigram [employer] [id number] 12/31/2024 SHS-10-100 -180 / / [id number] documented as of this encounter Visit Diagnoses Diagnosis Dizziness- Primary Dizziness and giddiness Carcinoma of gallbladder (HCC) Malignant neoplasm of gallbladder Anemia due to antineoplastic chemotherapy Antineoplastic chemotherapy induced anemia HTN, goal below 140/90 Unspecified essential hypertension documented in this encounter Advance Directives * Full Code (Latest Code Status on File) Date Activated Date Inactivated Comments 12/04/2022 10:10 PM 12/08/2022 3:55 PM This order re flects the patients wishes and were consensually agreed upon. Question Answer Comments Discussion of Advance Directives occurred with: Patient Care Teams Firer Portable Boiler Relationship Specialty Start Date End Date Kristine Kan DO [address] [place] [address] PCP - General Family Medicine 03/16/24 documented as of this encounter
--- OUTSIDE RECORDS SUMMARY | 2024-06-06 23:35 | External Medical Summary | Summary of Care ---
Author Name Unknown Organization [facility] Address [address] [place] [address] Phone [phone] Care Team Providers Care Acid Dipper Name Role Phone Kristine Kan Primary Care Provider [phone] Reason for Visit * Reason Onset Date Comments Appointment 05/03/2024 Encounter Details Date Type Department Care Team (Late st Contact Info) Description 05/03/2024 Telephone Care at Home [address], [place] [id number] Services, Scheduling [address] [place] [address] Appointment Allergies Active Allergy Reactions Criticality Noted Date Comments Latex Rash 06/28/2018 From a dressing Sulfamethoxazole Edema face/lips/tongue High 023 Trimethoprim Edema face/lips/tongue High 12/03/2022 documented as of this encounter (statuses as of 05/03/2024) Medications Medication Sig Dispensed Refills Start Date [...] TO ACCESSING. 30 g 1 12/16/2023 Active Atenolol 25 MG Oral Tablet (Tenormin)Indicatio ns:HTN, goal below 140/90 Take 1 Tablet by mouth in the morning. 90 Tablet 3 12/29/2023 Active Additional Information Patient taking differently:25 mg Oral Daily(AM),Pt is taking now, Reported on 04/04/2024 Artificial Tears 0.1-0.3 % Ophthalmic Solution (Dextran [...] in the morning. 7 Tablet 04/14/2024 Active Hospital, Clinic, or Other Facility Administered Medication Ordered Dose Route Frequency Start Date End Date Status vitamin b-12 (Cyanocobalamin) inj 1,000 mcgIndications:Vitamin B 12 deficiency 1000 mcg IM [id number] 09/02/2023 08/03/2024 Active Fluorouracil (5-Fu) 4,475 mg in NSS 138 mL infusion 4475 mg IV CONTINUOUS 05/02/2024 05/04/2024 Active documented as of this encounter (statuses as of 05/03/2024) Active Problems Problem Noted Date Diagnosed Date [...] as of this encounter (statuses as of 05/03/2024) Resolved Problems Problem Noted Date Diagnosed Date [...] as of this encounter (statuses as of 05/03/2024) Immunizations Name Administration Dates Next Due COVID-19 [...] Miscellaneous Notes * Telephone Encounter - Muriel Hendricks OSA - 05/03/2024 11:06 AM EDT Care At Home Outreach Call attempt: 1st Call Call result: Call Unsuccessful - Ineligible: [address] Patient documented in this encounter Plan of Treatment Upcoming Encounters Date Type Department Care Team (Latest Contact Info) Description 05/03/2024 2:00 PM EDT Hem/Onc Treatment Hematology/Oncolog y Treatment, [place] [address] [place] [phone] Jessica, Chair [address] Hem On[address] [facility] [place] [address] Carcinoma of gallbladder (HCC)*; Encounter for antineoplastic chemotherapy 05/05/2024 1:00 PM EDT Office Visit Family Practice [address], [place] [address] [facility], [place] [address] Kristine Kan DO [address] [facility], [place] [address] 05/10/2024 10:00 AM EDT Office Visit Hematology/Oncolog y Kory Lopez [place] [address] [facility] [place], [place] [phone] Hardik Gross MD [address] [facility] [place], [place] [address] Health Maintenance Due Date Last Done Comments COVID-19 Vaccine ( season) 2024 11/08/2023, 07/10/2022, 01/06/2022, Additional history exists Influenza Vaccine (FLU shot) (#1) 2024 06/30/2023, 07/18/2022, 05/18/2021, Additional history exists Albumin/Creatinine Ratio 09/02/2024 09/02/2023, 08/0 10/2021 GFR 11/02/2024 05/02/2024, 04/04, 04/10/2024, Additional history exists Depression Monitoring 11/09/2024 11/09/2023 CKD PHOS USE SMARTSET 02153 11/25/2024 11/25/2023, 0 12/05/2022 HbA1c 11/25/2024 11/25/2023, 11/04, 05/04/2022, Additional history exists CKD HGB USE SMARTSET 03017 05/02/202505/02, 05/02/2024, 04/25/2024, Additional history exists DXA [...] this encounter Medical Devices Implanted Type Area Automation Engineering Technician Device Identifier Shelf Expiration Date Model / Serial / Lot Lens Intraoc 21.5 - [id number] - [id number] Implanted:Qty: 1 on 07/27/2019 by Tristian Araujo MD at OR [facility] Left: Eye BAUSCH & LOMB 04/02/2024 [id number] / [id number] / [id number] Lens Intraoc 21.5 - [id number] - [id number] Implanted:Qty: 1 on 08/08/2019 by Tristian Araujo MD at OR [facility] Right: Eye BAUSCH & LOMB 04/02/2024 [id number] / [id number] / [id number] Stent Axios [id number] - [id number] Implanted:Qty: 1 on 12/07/2022 by Tanya Morris MD at OR [facility] N/A: Abdomen [employer] : ENDOSCOPY [id number] 08/25/2023 [id number] / / [id number] Stent Bili Pigtail 7fr 100mm - [id number] Implanted:Qty: 1 on 12/07/2022 by Tanya Morris MD at OR [facility] N/A: Abdomen [employer] [id number] 08/03/2025 PBD-1033-0 710 / / [id number] Stent Bili Pigtail 7fr 100mm - [id number] Implanted:Qty: 1 on 12/07/2022 by Tanya Morris MD at OR [facility] N/A: Abdomen [employer] [id number] 08/03/2025 PBD-1033-0 710 / / 2YK Power Port 8fr Sngl Lumen Plas - [id number] Implanted:Qty: 1 on 12/29/2022 by Landon Hickman DO at OR [facility] Right: Chest CR BARD : PERIPHERAL VASCULAR [id number] 12/02/2023 [id number] / / [id number] Hanarostent Noncover 10dm 10cm - [id number] Implanted:Qty: 1 on 02/19/2023 by Tanya Morris MD at OR [facility] [employer] [facility] [id number] 12/31/2024 [facility]-10-100 -180 / / [id number] documented as of this encounter Advance Directives * Full Code (Latest Code Status on File) Date Activated Date Inactivated Comments 12/04/2022 10:10 PM 12/08/2022 3:55 PM This order re flects the patients wishes and were consensually agreed upon. Question Answer Comments Discussion of Advance Directives occurred with: Patient Care Teams Acid Dipper Relationship Specialty Start Date End Date Kristine Kan DO [address] [place] [address] PCP - General Family Medicine 03/16/24 documented as of this encounter
--- OUTSIDE RECORDS SUMMARY | 2024-06-06 23:35 | External Medical Summary | Summary of Care ---
Author Name Unknown Organization [facility] Address [address] [place] [address] Phone [phone] Care Team Providers Care Keyboard Instrument Repairer Name Role Phone Kristine Kan Primary Care Provider [phone] Reason for Visit * Reason Comments Outpatient Testing Encounter Details Date Type Department Care Team (Late st Contact Info) Description 05/02/2024 10:00 AM EDT Laboratory Laboratory [facility] [address] [place] [phone] [facility] Lab [facility] 200 [facility] [place] [address] Carcinoma of gallbladder (HCC) Allergies Active Allergy Reactions Criticality Noted Date Comments Latex Rash 06/28/2018 From a dressing Sulfamethoxazole Edema face/lips/tongue High 023 Trimethoprim Edema face/lips/tongue High 12/03/2022 documented as of this encounter (statuses as of 05/02/2024) Medications Medication Sig Dispensed Refills Start Date [...] Tablet Therapy Pack (Eliquis DVT/PE Starter Pack)Indications:Ac [place] 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 [...] mcgIndications:Vitamin B 12 deficiency 1000 mcg IM [id number] 09/02/2023 08/03/2024 Active documented as of this encounter (statuses as of 05/02/2024) Active Problems Problem Noted Date Diagnosed Date [...] as of this encounter (statuses as of 05/02/2024) Resolved Problems Problem Noted Date Diagnosed Date [...] as of this encounter (statuses as of 05/02/2024) Immunizations Name Administration Dates Next Due COVID-19 [...] Team (Late st Contact Info) Description 05/03/2024 2:00 PM EDT [facility] [phone] [place], Chair 11 Hem Onc [facility] 200 [facility] [place] [address] 05/05/2024 1:00 PM EDT Office Visit Family Practice 65 [facility] [address] [place] [address] Kristine Kan DO [address] [facility] [address] 05/10/2024 10:00 AM EDT Office Visit Hematology/Oncology [facility] [place] 200 [facility] [place] [phone] Hardik Gross MD 200 [facility] [place] [address] Pending Results Name Type Priority Associated Diagnoses Date /Time CBC WITH WBC DIFFERENTIAL Lab STAT Carcinoma of gallbladder (HCC) 05/02/2024 10:02 AM EDT COMPREHENSIVE METABOLIC PANEL Lab STAT Carcinoma of gallbladder (HCC) 05/02/2024 10:02 AM EDT MAGNESIUM Lab STAT Carcinoma of gallbladder (HCC) 05/02/2024 10:02 AM EDT CBC Lab STAT Carcinoma of gallbladder (HCC) 05/02/2024 10:02 AM EDT DIFFERENTIAL, AUTOMATED Lab STAT Carcinoma of gallbladder (HCC) 05/02/2024 10:02 AM EDT Health Maintenance Due Date Last Done Comments COVID-19 Vaccine ( season) 2024 11/08/2023, 07/10/2022, 01/06/2022, Additional history exists Influenza Vaccine (FLU shot) (#1) 2024 06/30/2023, 07/18/2022, 05/18/2021, Additional history exists Albumin/Creatinine Ratio 09/02/2024 09/02/2023, 08/0 10/2021 GFR 10/26/2024 04/25/2024, 07/0 05/2024, 04/04/2024, Additional history exists Depression Monitoring 11/09/2024 11/09/2023 CKD PHOS USE SMARTSET 13817 11/25/2024 11/25/2023, 0 12/05/2022 HbA1c 11/25/2024 11/25/2023, 11/04, 05/04/2022, Additional history exists CKD HGB USE SMARTSET 81563 04/25/202504/25, 04/25/2024, 04/10/2024, Additional history exists DXA Scan 12/16/2028 12/16/2021, [...] this encounter Medical Devices Implanted Type Area Sap Payroll Consultant Device Identifier Shelf Expiration Date Model / Serial / Lot Lens Intraoc 21.5 - [id number] - [id number] Implanted:Qty: 1 on 07/27/2019 by Tristian Araujo MD at OR [facility] Left: Eye BAUSCH & LOMB 04/02/2024 [id number] / [id number] / [id number] Lens Intraoc 21.5 - [id number] - [id number] Implanted:Qty: 1 on 08/08/2019 by Tristian Araujo MD at OR [facility] Right: Eye BAUSCH & LOMB 04/02/2024 [id number] / [id number] / [id number] Stent Axios [id number] - [id number] Implanted:Qty: 1 on 12/07/2022 by Tanya Morris MD at OR [facility] N/A: Abdomen [employer] : ENDOSCOPY [id number] 08/25/2023 [id number] / / [id number] Stent Bili Pigtail 7fr 100mm - Implanted:Qty: 1 on 12/07/2022 by Tanya Morris MD at OR [facility] N/A: Abdomen [employer] [id number] 08/03/2025 PBD-1033-0 710 / / [id number] Stent Bili Pigtail 7fr 100mm - [id number] Implanted:Qty: 1 on 12/07/2022 by Tanya Morris MD at OR [facility] N/A: Abdomen [employer] [id number] 08/03/2025 PBD-1033-0 710 / / 2YK Power Port 8fr Sngl Lumen Plas - [id number] Implanted:Qty: 1 on 12/29/2022 by Landon Hickman DO at OR [facility] Right: Chest CR BARD : PERIPHERAL VASCULAR [id number] 12/02/2023 [id number] / / [id number] Hanarostent Noncover 10dm 10cm - [id number] Implanted:Qty: 1 on 02/19/2023 by Tanya Morris MD at OR [facility] [employer] [id number] 12/31/2024 SHS-10-100 -180 / / [id number] documented as of this encounter Visit Diagnoses [...] Advance Directives occurred with: Patient Care Teams Keyboard Instrument Repairer Relationship Specialty Start Date End Date Kristine Kan DO [address] [place] [address] PCP - General Family Medicine 03/16/24 documented as of this encounter
--- OUTSIDE RECORDS SUMMARY | 2024-06-06 23:35 | External Medical Summary ---
Author Name Unknown Address Unknown Organization K09:[facility] [place] [address] Laboratory Report Ordering Provider Test Date Status TASHA MANN 05/02/2024 10:02:23 Final Observation Date Value Abnormality Reference (Units ) Status Magnesium 05/02/2024 10:02:23 1.8 1.5-2.6 (m g/dL) Final Performing Location [facility] [place] [address]
--- OUTSIDE RECORDS SUMMARY | 2024-06-06 23:35 | External Medical Summary | Summary of Care ---
Author Name Unknown Organization [facility] Address [address] [place] [address] Phone [phone] Care Team Providers Care Parachute Folder Name Role Phone Kristine Kan Primary Care Provider [phone] Reason for Visit * Reason Comments Procedure Pump disconnect * Episode Based Medications (Routine) - Authorized Specialty Diagnoses / Procedures Referred By Marcela johansen Referred To Contact Diagnoses Carcinoma of gallbladder (HCC) Encounter for antineoplastic chemotherapy Procedures MI LEUCOVORIN CALCIUM INJECTION MI PALONOSETRON HCL MI FLUOROURACIL INJECTION MI OXALIPLATIN Hardik Gross MD 200 [facility] [place] [address] Anc Hem/Onc [address] [address] Referral ID Status Reason Start Date Expiration Date V isits Requested Visits Authorized [id number] Authorized 12/14/2023 12/13/[phone] Encounter Details Date Type Department Care Team (Latest Contact Info) Description 05/05/2024 1:30 PM EDT Immunization/ Injection Hematology/Oncology Treatment, [address] [address] Jessica Chair 8 Hem Onc [address] [place] [address] Carcinoma of gallbladder (HCC)*; Encounter for antineoplastic chemotherapy Allergies Active Allergy Reactions Criticality Noted Date Comments Latex Rash 06/28/2018 From a dressing Sulfamethoxazole Edema face/lips/tongue High 023 Trimethoprim Edema face/lips/tongue High 12/03/2022 documented as of this encounter (statuses as of 05/05/2024) Medications Medication Sig Dispensed Refills Start Date [...] Tablet Therapy Pack (Eliquis DVT/PE Starter Pack)Indications:Ac vie[place] 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 [...] mcgIndications:Vitamin B 12 deficiency 1000 mcg IM [id number] 09/02/2023 08/03/2024 Active documented as of this encounter (statuses as of 05/05/2024) Active Problems Problem Noted Date Diagnosed Date [...] as of this encounter (statuses as of 05/05/2024) Resolved Problems Problem Noted Date Diagnosed Date [...] as of this encounter (statuses as of 05/05/2024) Immunizations Name Administration Dates Next Due COVID-19 [...] as of this encounter Nursing Notes * Karey Argueta RN - 05/05/2024 2:47 PM EDT Chair 8 Pt here for 5-FU pump disconnect. C/o ongoing dizziness especially when standing up. Per patient, Dr. Gross has been aware of this complaint and med adjustments have been made. Dizziness is no worse than it was before. No other complaints. Denies and side effects of chemo. 5-FU infusion complete. Port with positive blood return. Flushed with 10 mL NS & 5 mL U-100 Heparin. Pt discharged in stab le condition. documented in this encounter Plan of Treatment Upcoming Encounters Date Type Department Care Team (Late st Contact Info) Description 05/08/2024 3:00 PM EDT Office Visit Family Practice [address] [place] 293 [place] [address] Kristine Kan DO 293 [place] [address] 05/10/2024 10:00 AM EDT Office Visit Hematology/Oncology [facility] [phone] Hardik Gross MD 200 [facility] [place] [address] 05/16/2024 11:00 AM EDT Laboratory Laboratory [facility] [place] 200 [facility] [place] [address] Jessica, Lab [address] [place], [place] [address] 05/17/2024 1:30 PM EDT Hem/Onc Treatment [facility]ematology[facility]cology Treatment, [place] [facility] [phone] Jessica, Chair 11 Hem On[address] [place], [place] [address] Health Maintenance Due Date Last Done Comments COVID-19 Vaccine ( season) 2024 11/08/2023, 07/10/2022, 01/06/2022, Additional history exists Influenza Vaccine (FLU shot) (#1) 2024 06/30/2023, 07/18/2022, 05/18/2021, Additional history exists Albumin/Creatinine Ratio 09/02/2024 09/02/2023, 08/0 10/2021 GFR 11/02/2024 05/02/2024, 07/2 12/2023, 04/10/2024, Additional history exists Depression Monitoring 11/09/2024 11/09/2023 CKD PHOS USE SMARTSET 92053 11/25/2024 11/25/2023, 0 12/05/2022 HbA1c 11/25/2024 11/25/2023, 11/04, 05/04/2022, Additional history exists CKD HGB USE SMARTSET 77061 05/02/202505/02, 05/02/2024, 04/25/2024, Additional history exists DXA [...] this encounter Medical Devices Implanted Type Area Conservation Policy Analyst Device Identifier Shelf Expiration Date Model / Serial / Lot Lens Intraoc 21.5 - [id number] - [id number] Implanted:Qty: 1 on 07/27/2019 by Tristian Araujo MD at OR [facility] Left: Eye BAUSCH & LOMB 04/02/2024 [id number] / [id number] / [id number] Lens Intraoc 21.5 - [id number] - [id number] Implanted:Qty: 1 on 08/08/2019 by Tristian Araujo MD at OR [facility] Right: Eye BAUSCH & LOMB 04/02/2024 [id number] / [id number] / [id number] Stent Axios [id number] - [id number] Implanted:Qty: 1 on 12/07/2022 by Tanya Morris MD at OR [facility] N/A: Abdomen [employer] : ENDOSCOPY [id number] 08/25/2023 [id number] / / [id number] Stent Bili Pigtail 7fr 100mm - [id number] Implanted:Qty: 1 on 12/07/2022 by Tanya Morris MD at OR [facility] N/A: Abdomen [employer] [id number] 08/03/2025 PBD-1033-0 710 / / 2YK Stent Bili Pigtail 7fr 100mm - [id number] Implanted:Qty: 1 on 12/07/2022 by Tanya Morris MD at OR [facility] N/A: Abdomen [employer] [id number] 08/03/2025 PBD-1033-0 710 / / 2YK Power Port 8fr Sngl Lumen Plas - [id number] Implanted:Qty: 1 on 12/29/2022 by Landon Hickman DO at OR [facility] Right: Chest CR BARD : PERIPHERAL VASCULAR [id number] 12/02/2023 [id number] / / [id number] Hanarostent Noncover 10dm 10cm - [id number] Implanted:Qty: 1 on 02/19/2023 by Tanya Morris MD at OR [facility] [employer] [id number] 12/31/2024 SHS-10-100 -180 / / [id number] documented as of this encounter Visit Diagnoses [...] Lock, PRN Other, IV Flush, Starting on 05/05/24 at 1332, Until 05/06/24 at 1331, For 24 hours, Do not flush if lock, PICC, or central line not in place; IV infusing or unable to flush. Given 05/05/2024 1:35 PM EDT 500 Units sodium chloride 0.9 % flush central line 10 mL 10 mL, IV Push, PRN Other, IV Flush, Starting on 05/05/24 at 1332, Until 05/06/24 at 1331, For 24 hours, Do not flush if lock, PICC, or central line not in place; IV infusing or unable to flush. Given 05/05/2024 1:35 PM EDT 10 mL documented in this encounter Advance Directives * Full Code (Latest Code Status on File) Date Activated Date Inactivated Comments 12/04/2022 10:10 PM 12/08/2022 3:55 PM This order re flects the patients wishes and were consensually agreed upon. Question Answer Comments Discussion of Advance Directives occurred with: Patient Care Teams Parachute Folder Relationship Specialty Start Date End Date Kristine Kan DO [address] [place] [address] PCP - General Family Medicine 03/16/24 documented as of this encounter
--- OUTSIDE RECORDS SUMMARY | 2024-06-06 23:35 | External Medical Summary | Summary of Care ---
Author Name Unknown Organization [facility] Address [address] [place] [address] Phone [phone] Care Team Providers Care Program Supervisor Name Role Phone Kristine Kan DO Primary Care Provider [phone] Reason for Visit * Reason Comments Follow Up Encounter Details Date Type Department Care Team (Latest Contact Info) Description 05/08/2024 1:40 PM EDT Office Visit Family Practice 65 [facility] [address] [place] [address] Kristine Kan [address] [place] [address] Dizziness*; Carcinoma of gallbladder (HCC); Anemia due to antineoplastic chemotherapy; HTN, goal below 140/90 Allergies Active Allergy Reactions Criticality Noted Date Comments Latex Rash 06/28/2018 From a dressing Sulfamethoxazole Edema face/lips/tongue High 023 Trimethoprim Edema face/lips/tongue High 12/03/2022 documented as of this encounter (statuses as of 05/08/2024) Medications Medication Sig Dispensed Refills Start Date [...] mcgIndications:Vitamin B 12 deficiency 1000 mcg IM [id number] 09/02/2023 08/03/2024 Active documented as of this encounter (statuses as of 05/08/2024) Active Problems Problem Noted Date Diagnosed Date [...] as of this encounter (statuses as of 05/08/2024) Resolved Problems Problem Noted Date Diagnosed Date [...] as of this encounter (statuses as of 05/08/2024) Immunizations Name Administration Dates Next Due COVID-19 [...] 89 D&C EGD, FLEXIBLE,W/ENDOSCOPIC US N/A 12/04/2022 [facility], EGD / EUS /severe stenosis was found in the duodenal bulb /mass found in gallbladder in duodenal wall / biopsies adenocarcinoma of the gallbladder EGD, W/ENDOSCOPIC US N/A 12/07/2022 severe duodenal bulb stenosis, large gallbladder mass precluding/ESOPHAGOGASTRODUODENOSCOPY (EGD), FLEXIBLE, TRANSORAL, ENDOSCOPIC ULTRASOUND performed by Tanya Morris MD at OR [facility] ERCP W/ STENT EXCHANGE N/A 02/19/2023 done through [facility] axios stent, severe stenosis in duodenal bulb/single malignant biliary stricture/plastic biliary stent exchanged for uncovered metal biliary stent/ENDOSCOPIC RETROGRADE CHOLANGIOPANCREATOGRAPHY (ERCP) W/STENT REMOVAL AND EXCHANGE; INC DILATION, GUIDE WIRE AND SPHINCTEROTOMY performed by Tanya Morris MD at OR [facility] ERCP, DIAGNOSTIC, SPECIMEN COLLECTION N/A 12/07/2022 ENDOSCOPIC RETROGRADE CHOLANGIOPANCREATOGRAPHY (ERCP) DIAGNOSTIC performed by Dee Pineda OR [facility] INFORMATION 12/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 INSER TUNN ACC DEV;5 YRS/OLDER Right 12/29/2022 INSERT TUNNELED CENTRAL VENOUS ACCESS WITH SUBQ PORT performed by Landon Hickman DO at OR [facility] LAPAROSCOPY DIAGNOSTIC 1988 for infertility MASTECTOMY, PARTIAL Left 05/13/2017 malignant RADIATION THERAPY Left 08/04/2017 RADIATION THERAPY DOSE PLAN Left 08/04/2017 RELIEVE INNER EYE PRESSURE Left 07/27/2019 left GONIOTOMY performed by Tristian Araujo MD at OR [facility] RELIEVE INNER EYE PRESSURE Right 08/08/2019 right GONIOTOMY performed by Tristian Araujo MD at OR [facility] REMOVE CATARACT, INSERT LENS PROSTH Left 07/27/2019 left EXTRACAPSULAR CATARACT REMOVAL WITH INTRAOCULAR LENS performed by Tristian Araujo MD at OR [facility] REMOVE CATARACT, INSERT LENS PROSTH Right 08/08/2019 right EXTRACAPSULAR CATARACT REMOVAL WITH INTRAOCULAR LENS performed by Tristian Araujo MD at OR [facility] SENTINEL LYMPH NODE BIOPSY PERFORMED Left 05/13/2017 [...] 05/10/2024 10:00 AM EDT Office Visit Hematology/Oncology [facility] [address] [place] [phone] Hardik Gross MD [address] [place], [place] [address] 05/16/2024 11:00 AM EDT Laboratory Laboratory [facility] [address] [place] [phone] [place], Lab [facility] 200 [facility] [place], [place] [address] 05/17/2024 1:30 PM EDT Hem[facility] [address] [place], [place] [phone] Jessica, Chair 11 Hem Onc [facility] 200 [facility] [place], [place] [address] 07/10/2024 1:00 PM EDT Office Visit Family Practice [address], [place] 293 [facility] [place] [phone] Kristine Kna DO 293 [facility] [place] [address] Scheduled Orders Name Type Priority Associated Diagnoses [...] Monitoring 11/09/2024 11/09/2023 CKD PHOS USE SMARTSET 02454 11/25/2024 11/25/2023, 0 12/05/2022 HbA1c 11/25/2024 11/25/2023, 11/04, 05/04/2022, Additional history exists CKD HGB USE SMARTSET 57101 05/02/202505/02, 05/02/2024, 04/25/2024, Additional history exists DXA [...] this encounter Medical Devices Implanted Type Area Hand Rug Cleaner Device Identifier Shelf Expiration Date Model / Serial / Lot Lens Intraoc 21.5 - [id number] - [id number] Implanted:Qty: 1 on 07/27/2019 by Tristian Araujo MD at OR [facility] Left: Eye BAUSCH & LOMB 04/02/2024 [id number] / [id number] / [id number] Lens Intraoc 21.5 - [id number] - [id number] Implanted:Qty: 1 on 08/08/2019 by Tristian Araujo MD at OR [facility] Right: Eye BAUSCH & LOMB 04/02/2024 [id number] / [id number] / [id number] Stent Axios [id number] - [id number] Implanted:Qty: 1 on 12/07/2022 by Tanya Morris MD at OR [facility] N/A: Abdomen [employer] : ENDOSCOPY [id number] 08/25/2023 [id number] / / [id number] Stent Bili Pigtail 7fr 100mm - [id number] Implanted:Qty: 1 on 12/07/2022 by Tanya Morris MD at OR [facility] N/A: Abdomen [employer] [id number] 08/03/2025 PBD-1033-0 710 / / 2YK Stent Bili Pigtail 7fr 100mm - [id number] Implanted:Qty: 1 on 12/07/2022 by Tanya Morris MD at OR [facility] N/A: Abdomen [employer] [id number] 08/03/2025 PBD-1033-0 710 / / 2YK Power Port 8fr Sngl Lumen Plas - [id number] Implanted:Qty: 1 on 12/29/2022 by Landon Hickman DO at OR [facility] Right: Chest CR BARD : PERIPHERAL VASCULAR [id number] 12/02/2023 [id number] / / [id number] Hanarostent Noncover 10dm 10cm - [id number] Implanted:Qty: 1 on 02/19/2023 by Tanya Morris MD at OR [facility] [employer] [id number] 12/31/2024 SHS-10-100 -180 / / [id number] documented as of this encounter Visit Diagnoses [...] Advance Directives occurred with: Patient Care Teams Program Supervisor Relationship Specialty Start Date End Date Kristine Kan DO [address] [facility] [place] [address] PCP - General Family Medicine 03/16/24 documented as of this encounter
--- OUTSIDE RECORDS SUMMARY | 2024-06-06 23:35 | External Medical Summary | Summary of Care ---
Author Name Unknown Organization [facility] Address [address] [place] [address] Phone [phone] Care Team Providers Care Thresher Broomcorn Name Role Phone Kristine Kan Primary Care Provider + [phone] Reason for Visit * Reason Comments Chemotherapy Leuco/5FU * Episode Based Medications (Routine) - Authorized Specialty Diagnoses / Procedures Referred By Marcela johansen Referred To Contact Diagnoses Carcinoma of gallbladder (HCC) Encounter for antineoplastic chemotherapy Procedures TN LEUCOVORIN CALCIUM INJECTION TN PALONOSETRON HCL [place] FLUOROURACIL INJECTION TN OXALIPLATIN Hardik Gross MD [address] [place] [address] [place] [address] Anc Hem/Onc [address] [address] Referral ID Status Reason Start Date Expiration Date V isits Requested Visits Authorized [id number] Authorized 12/14/2023 12/13/2024 999 [id number] Encounter Details Date Type Department Care Team (Latest Contact Info) Description 05/03/2024 2:00 PM EDT Hem/Onc Treatment Hematology/Oncolog y Treatment, [address] [phone] Jessica, Chair 11 Hem Onc [address] [place] [address] Carcinoma of gallbladder (HCC)*; Encounter for antineoplastic [...] mcgIndications:Vitamin B 12 deficiency 1000 mcg IM [id number] 09/02/2023 08/03/2024 Active documented as of this [...] Care Team (Late st Contact Info) Description 05/05/2024 1:00 PM EDT Office Visit Family Practice [address] [facility] [place], [place] [address] [place] [address] Kristine Kan DO 293 [facility], [place] [address] 05/05/2024 1:30 PM EDT Immunization/Injecti on Hematology/Oncology Treatment, [place] [address] [place] [phone] Jessica, Chair 8 Hem Onc [facility] 200 [facility] [place] [address] 05/10/2024 10:00 AM EDT Office Visit Hematology/Oncology [facility] [place] [address] [place] [phone] Hardik Gross MD 200 [facility] [place] [place] [address] 05/16/2024 11:00 AM EDT Laboratory [facility] [place] [address] [place], [place] [phone] Jessica, Lab Scenery [address] [place], [place] [address] 05/17/2024 1:30 PM EDT Hem/Onc Treatment Hematology/Oncology Treatment, [place] [address] [place] [phone] Jessica, Chair 11 Hem Onc Scenery 200 [facility] [place], [place] [address] Health Maintenance Due Date Last Done Comments COVID-19 Vaccine ( season) 2024 11/08/2023, 07/10/2022, 01/06/2022, Additional history exists Influenza Vaccine (FLU shot) (#1) 2024 06/30/2023, 07/18/2022, 05/18/2021, Additional history exists Albumin/Creatinine Ratio 09/02/2024 09/02/2023, 08/0 10/2021 GFR 11/02/2024 05/02/2024, 072 12/2023, 04/10/2024, Additional history exists Depression Monitoring 11/09/2024 11/09/2023 CKD PHOS USE SMARTSET 57380 11/25/2024 11/25/2023, 0 12/05/2022 HbA1c 11/25/2024 11/25/2023, 11/04, 05/04/2022, Additional history exists CKD HGB USE SMARTSET 68718 05/02/202505/02, 05/02/2024, 04/25/2024, Additional history exists DXA [...] this encounter Medical Devices Implanted Type Area Roll Tube Setter Device Identifier Shelf Expiration Date Model / Serial / Lot Lens Intraoc 21.5 - [id number] - [id number] Implanted:Qty: 1 on 07/27/2019 by Tristian Araujo MD at OR [facility] Left: Eye [employer]OM[employer] 04/02/2024 [id number] / [id number] / [id number] Lens Intraoc 21.5 - [id number] - [id number] Implanted:Qty: 1 on 08/08/2019 by Tristian Araujo MD at OR [facility] Right: Eye BAUSCH & LOMB 04/02/2024 [id number] / [id number] / [id number] Stent Axios [id number] - [id number] Implanted:Qty: 1 on 12/07/2022 by Tanya Morris MD at OR [facility] N/A: Abdomen [employer] : ENDOSCOPY [id number] 08/25/2023 [id number] / / [id number] Stent Bili Pigtail 7fr 100mm - [id number] Implanted:Qty: 1 on 12/07/2022 by Tanya Morris MD at OR [facility] N/A: Abdomen [employer] [id number] 08/03/2025 PBD-1033-0 710 / / [id number] Stent Bili Pigtail 7fr 100mm - [id number] Implanted:Qty: 1 on 12/07/2022 by Tanya Morris MD at OR [facility] N/A: Abdomen [employer] [id number] 08/03/2025 PBD-1033-0 710 / / 2YK Power Port 8fr Sngl Lumen Plas - [id number] Implanted:Qty: 1 on 12/29/2022 by Landon Hickman DO at OR [facility] Right: Chest CR BARD : PERIPHERAL VASCULAR [id number] 12/02/2023 [id number] / / [id number] Hanarostent Noncover 10dm 10cm - [id number] Implanted:Qty: 1 on 02/19/2023 by Tanya Morris MD at OR [facility] [employer] [id number] 12/31/2024 [facility]-10-100 -180 / / [id number] documented as of this encounter Visit Diagnoses Diagnosis Carcinoma of gallbladder (HCC)- Primary Malignant neoplasm of gallbladder Encounter for antineoplastic chemotherapy documented in this encounter Administered Medications Active Administered Medications - up to 3 most recent administrations Medication Order MAR Action Action Date Dose Rate Site diphenhydrAMINE (Benadryl) inj 50 mg 50 mg, IV Push, ONCE PRN Other, Hypersensitivity Reaction, Starting on Wed05/03/24 at 1418, Until Wed05/04/24 at 1417, For 24 hours EPINEPHrine 1 MG/ML inj 0.3 mg 0.3 mg, Intramuscular, ONCE PRN Other, Hypersensitivity Reaction or Anaphylaxis, Starting on Wed05/03/24 at 1418, Until Wed05/04/24 at 1417, For 24 hours hEParin 100 UNIT/ML Lock Flush inj 500 Units 500 Units (5 mL), IV Lock, PRN Other, IV Flush, Starting on Wed05/03/24 at 1418, Until Wed05/04/24 at 1417, For 24 hours, Do not flush if lock, PICC, or central line not in place; IV infusing or unable to flush. Hydrocortisone Sod Suc (PF) (Solu-Cortef) inj 100 mg 100 mg, IV Push, ONCE PRN Other, Hypersensitivity Reaction, Starting on Wed05/03/24 at 1418, Until Wed05/04/24 at 1417, For 24 hours LORAzepam (Ativan) tab 0.5 mg 0.5 mg, Oral, ONCE PRN Anxiety, Nausea, Starting on Wed05/03/24 at 0830, Until Discontinued NSS infusion FOR HYDRATION Intravenous, at 50 mL/hr Administer over 10 Hours, PRN, Starting on Wed05/03/24 at 1418, Until Discontinued Start Infusion 05/03/2024 2:39 PM EDT 500 mL 50 mL/hr oxygen GAS Inhalation, OXYGEN, First dose on Wed05/03/24 at 1600, Until Discontinued, Device/Managed by: Low [...] Push, PRN Other, IV Flush, Starting on Wed05/03/24 at 1418, Until Karla 05/04/24 at 1417, For 24 hours, Do not flush if [...] 2:42 PM EDT 750 mg 510 mL/hr ondansetron [...] Advance Directives occurred with: Patient Care Teams Thresher Broomcorn Relationship Specialty Start Date End Date Kristine Kan DO [address] [place] [address] PCP - General Family Medicine 03/16/24 documented as of this encounter
--- OUTSIDE RECORDS SUMMARY | 2024-06-06 23:35 | External Medical Summary | Summary of Care ---
Author Name Unknown Organization [facility] Address [address] [place] [address] Phone [phone] Care Team Providers Care Hairspring Truer Name Role Phone Kristine Kan Primary Care Provider [phone] Reason for Visit * Reason Onset Date Comments Appointment 04/26/2024 Dr. Gross Encounter Details Date Type Department Care Team (Late st Contact Info) Description 04/26/2024 Telephone Hematology/Oncology [facility] [address] [place] [address] Services, Scheduling [address] [place] [address] Appointment (Dr. 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 [...] mcgIndications:Vitamin B 12 deficiency 1000 mcg IM [id number] 09/02/2023 08/03/2024 Active Fluorouracil (5-Fu) 4,475 mg in NSS 138 mL infusion 4475 mg IV CONTINUOUS 04/26/2024 04/28/2024 Ended documented as of this encounter (statuses as of 05/01/2024) Active Problems Problem Noted Date Diagnosed Date [...] as of this encounter (statuses as of 05/01/2024) Resolved Problems Problem Noted Date Diagnosed Date [...] as of this encounter (statuses as of 05/01/2024) Immunizations Name Administration Dates Next Due COVID-19 [...] encounter Miscellaneous Notes * Telephone Encounter - Carla Damon RN - 05/01/2024 2:[address] Gross's routing comment: "Coumedin " Called patient, she verbalized understanding. * Telephone Encounter - Carla Damon RN - 04/27/2024 11:52 AM EDT Called patient. She states that mag citrate worked, she had a large BM, may take a little more mag citrate today as she feels like she still needs to go more. She states that she has been feeling lightheaded since starting eliquis. Dr Gross mentioned at lastoffice visit that he could switch her to a different medication to see if that helps. She would like to know what medication he would recommend so that she can look it up and decide if she would wantto switch. She notes that she does have a follow up with him 05/10, ok if he prefers to wait until then, but if he knows what he may want to switch her to maybe she could look it up prior and make a decision with him at the follow up. Dr Gross: is there an alternative to eliquis that you had in mind for patient? * Telephone Encounter - Lucille Gaytan OSA - 04/26/2024 12:36 PM EDT Updated and she is aware * Addendum Note - Carla Damon RN - 04/26/2024 12:33 PM EDTAddended by: CARLA DAMON on: 04/26/2024 12:33 PM Modules accepted: Orders * Telephone Encounter - Carla Damon RN - 04/26/2024 12:26 PM EDT Called patient. She states that she was up a lot of the night due to gas pains that made her feel nauseous, also had pain in right abdomen. She notes that she does have a BM everyday. She eventually took 2 tums, which helped with the gas/ burping, and then had a small BM this morning. She is not having any pain or issues with gas now, reports that she feels fine. She feels like she is still constipated, so took 1/2 mag citrate early this morning and just took the other half of the bottle now. She states that this has happened before, and usually 1- 2 hours after she takes the 2nd mag citrate dose she has a good BM. Advised patient to monitor, if no BM or pain/ nausea/ unable to pass gas comes back she should go to ER to rule out bowel obstruction. Patient verbalized understanding and is agreeable to above. Scheduling: after hanging up, reviewed appts- labs have to be in AM the day prior to treatment (cannot be 2 days prior)- please call her to reschedule this. Thanks! Ginny: FYI on above. * Telephone Encounter - Lucille Gaytan OSA - 04/26/2024 11:31 AM EDT Pt asked that the tx be bummed to next week as she did not have a good night last night Updated apts to have labs Wednesday and tx Wednesday as requested by pt as that is how her txs run FYI nursing of pts request * Telephone Encounter - Lucille Gaytan OSA - 04/26/2024 11:12 AM EDT Left message * Telephone Encounter - Markel Rascon OSA - 04/26/2024 10:01 AM EDT Patient called in to cancel and reschedule her appt for today at 1pm. Please call her back at [phone] documented in this encounter Plan of Treatment Upcoming Encounters Date Type Department Care Team (Late st Contact Info) Description 05/02/2024 10:00 AM EDT Laboratory [facility] [place] [address] [place] [phone] Jessica Lab Scenery [address] [place] [facility] [place] [address] 05/03/2024 2:00 PM EDT Hem/Onc Treatment Hematology/Oncology Treatment, [place] [address] [place] [phone] Jessica, Chair 11 Hem Onc [address] [place] [address] 05/05/2024 1:00 PM EDT Office Visit Family Practice [address], [place] [address] [facility] [phone] Kristine Kan DO [address] [facility] [place] [address] 05/10/2024 10:00 AM EDT Office Visit Hematology/Oncology [facility] [place] 200 [facility] [place], [place] [phone] Hardik Gross MD 200 [facility] [place], [place] [address] Health Maintenance Due Date Last Done Comments COVID-19 Vaccine ( season) 2024 11/08/2023, 07/10/2022, 01/06/2022, Additional history exists Influenza Vaccine (FLU shot) (#1) 2024 06/30/2023, 07/18/2022, 05/18/2021, Additional history exists Albumin/Creatinine Ratio 09/02/2024 09/02/2023, 08/0 10/2021 GFR 10/26/2024 04/25/2024, 07/0 05/2024, 04/04/2024, Additional history exists Depression Monitoring 11/09/2024 11/09/2023 CKD PHOS USE SMARTSET 33642 11/25/2024 11/25/2023, 0 12/05/2022 HbA1c 11/25/2024 11/25/2023, 11/04, 05/04/2022, Additional history exists CKD HGB USE SMARTSET 29600 04/25/202504/25, 04/25/2024, 04/10/2024, Additional history exists DXA [...] this encounter Medical Devices Implanted Type Area Epic Specialist Device Identifier Shelf Expiration Date Model / Serial / Lot Lens Intraoc 21.5 - [id number] - [id number] Implanted:Qty: 1 on 07/27/2019 by Tristian Araujo MD at OR [facility] Left: Eye BAUSCH [employer] LOMB 04/02/2024 [id number] / [id number] / [id number] Lens Intraoc 21.5 - [id number] - [id number] Implanted:Qty: 1 on 08/08/2019 by Tristian Araujo MD at OR [facility] Right: Eye BAUSCH & LOMB 04/02/2024 [id number] / [id number] / [id number] Stent Axios [id number] - [id number] Implanted:Qty: 1 on 12/07/2022 by Tanya Morris MD at OR [facility] N/A: Abdomen [employer] : ENDOSCOPY [id number] 08/25/2023 [id number] / / [id number] Stent Bili Pigtail 7fr 100mm - [id number] Implanted:Qty: 1 on 12/07/2022 by Tanya Morris MD at OR [facility] N/A: Abdomen [employer] [id number] 08/03/2025 PBD-1033-0 710 / / 2YK Stent Bili Pigtail 7fr 100mm - [id number] Implanted:Qty: 1 on 12/07/2022 by Tanya Morris MD at OR [facility] N/A: Abdomen [employer] [id number] 08/03/2025 PBD-1033-0 710 / / 2YK Power Port 8fr Sngl Lumen Plas - [id number] Implanted:Qty: 1 on 12/29/2022 by Landon Hickman DO at OR [facility] Right: Chest CR BARD : PERIPHERAL VASCULAR [id number] 12/02/2023 [id number] / / [id number] Hanarostent Noncover 10dm 10cm - [id number] Implanted:Qty: 1 on 02/19/2023 by Tanya Morris MD at OR [facility] [employer] [id number] 12/31/2024 [facility]-10-100 -180 / / [id number] documented as of this encounter Advance Directives * Full Code (Latest Code Status on File) Date Activated Date Inactivated Comments 12/04/2022 10:10 PM 12/08/2022 3:55 PM This order re flects the patients wishes and were consensually agreed upon. Question Answer Comments Discussion of Advance Directives occurred with: Patient Care Teams Hairspring Truer Relationship Specialty Start Date End Date Kristine Kan DO [address] [place] [address] PCP - General Family Medicine 03/16/24 documented as of this encounter
--- OUTSIDE RECORDS SUMMARY | 2024-06-06 23:35 | External Medical Summary ---
Author Name Unknown Address Unknown Organization K[facility] [address] [place] [address] Laboratory Report Ordering Provider Test Date Status TASHA MANN 05/02/2024 10:02:23 Final Observation Date Value Abnormality Reference (Units ) Status SYNC LEUKOCYTES IN BLOOD BY AUTOMATED COUNT 05/02/2024 10:02:23 5.84 4.00-10.80 (K/uL) Final Neutrophils/100 leukocytes in Blood by Manual count 05/02/2024 10:02:23 47.0 40.0-75.0 (%) Final Lymphocytes/100 leukocytes in Blood by Manual count 05/02/2024 10:02:23 41.0 18.0-42.0 (%) Final Monocytes/100 leukocytes in Blood by Manual count 05/02/2024 10:02:23 6.0 1.0-11.0 (%) Final Eosinophils/100 leukocytes in Blood by Manual count 05/02/2024 10:02:23 3.0 0.0-6.0 (%) Final Metamyelocytes/100 leukocytes in Blood by Manual count 05/02/2024 10:02:23 2.0 Above high normal <=0.0 (%) Final Myelocytes/100 leukocytes in Blood by Manual count 05/02/2024 10:02:23 1.0 Above high normal <=0.0 (%) Final Neutrophils [#/volume] in Blood by Manual count 05/02/2024 10:02:23 2.74 1.80-7.70 (K/uL) Final Lymphocytes [#/volume] in Blood by Manual count 05/02/2024 10:02:23 2.39 1.00-4.80 (K/uL) Final Monocytes [#/volume] in Blood by Manual count 05/02/2024 10:02:23 0.35 0.00-1.10 (K/uL) Final Eosinophils [#/volume] in Blood by Manual count 05/02/2024 10:02:23 0.18 0.00-0.70 (K/uL) Final Metamyelocytes [#/volume] in Blood by Manual count 05/02/2024 10:02:23 0.12 Above high normal <=0.00 (K/uL) Final Myelocytes [#/volume] in Blood by Manual count 05/02/2024 10:02:23 0.06 Above high normal <=0.00 (K/uL) Final Nucleated erythrocytes/100 leukocytes [Ratio] in Blood by Automated count 05/02/2024 10:02:23 1 Above high normal <=0 (/100 WBCs) Final Performing Location [facility] [address] [place] [address]
--- OUTSIDE RECORDS SUMMARY | 2024-06-06 23:35 | External Medical Summary | Summary of Care ---
Author Name Unknown Organization [facility] Address [address] [place] [address] Phone [phone] Care Team Providers Care Utilization Management Um Nurse Name Role Phone Kristine Kan DO Primary Care Provider [phone] Reason for Visit * Reason Comments Follow Up Encounter Details Date Type Department Care Team (Latest Contact Info) Description 05/08/2024 1:40 PM EDT Office Visit Family Practice [facility] [address] [place] [address] Kristine Kan [address] [place] [address] Dizziness*; Carcinoma of gallbladder (HCC); Anemia due [...] mcgIndications:Vitamin B 12 deficiency 1000 mcg IM [id number] 09/02/2023 08/03/2024 Active documented as of this [...] Progress Notes * Bethanie Hernandez RN - 05/09/2024 1:34 PM EDT RN Lead: Bethanie Hernandez RN Date: 05/09/2024 Patient seen for ASC: dizziness Connected with patient via phone. Verified patient name/. Assessment: Pt. seen: 05/08/2024 Treatment plan: : 3 POSITIONAL BLOOD PRESSURE Dizziness is multifactorial secondary to chemo, anemia and low BP. Some drop in BP with orthostaticchecks. Given dizziness will have her 1/2 her atenolol. Reviewed that dizziness is not a side effect of Eliquis. Would continue Status update: Pt states she is still having some dizziness. She is cutting her Atenolol 25 mg tab in half-taking 12.5 mg-started this AM. She is using her walker around the house. She is also havingpossible UTI symptoms-see other encounter. Medication Reconciliation: Medication Reconciliation completed: Yes Careteam: Fastener Sewing Machine Operator: No Please let patient know you will be sharing with the CM and they may contact patient for future follow up. If patient is case managed, please route note to CM. If patient requires further follow-up for this ASC episode, please reach out directly to the case advocate via Teams or [facility]. Plan for Future Contacts: Plan to follow up Keep scheduled appointment Advancement/Closure Plan: Patient provided contact information and encouraged to call CM or clinic directly with any changes in condition. * Bethanie Hernandez RN - 05/08/2024 3:17 [...] Laterality Date DILATION AND CURETTAGE (D&C) 1985, D&C EGD, FLEXIBLE,W/ENDOSCOPIC US N/A 12/04/2022 [facility], EGD / EUS /severe stenosis was found in the duodenal bulb /mass found in gallbladder in duodenal wall / biopsies adenocarcinoma of the gallbladder EGD, W/ENDOSCOPIC US N/A 12/07/2022 severe duodenal bulb stenosis, large gallbladder mass precluding/ESOPHAGOGASTRODUODENOSCOPY (EGD), FLEXIBLE, TRANSORAL, ENDOSCOPIC ULTRASOUND performed by Tanya Morris MD at OR [facility] ERCP W/ STENT EXCHANGE N/A 02/19/2023 done through [facility] axios stent, severe stenosis in duodenal bulb/single malignant biliary stricture/plastic biliary stent exchanged for uncovered metal biliary stent/ENDOSCOPIC RETROGRADE CHOLANGIOPANCREATOGRAPHY (ERCP) W/STENT REMOVAL AND EXCHANGE; INC DILATION, GUIDE WIRE AND SPHINCTEROTOMY performed by Tanya Morris MD at OR [facility] ERCP, DIAGNOSTIC, SPECIMEN COLLECTION N/A 12/07/2022 ENDOSCOPIC RETROGRADE CHOLANGIOPANCREATOGRAPHY (ERCP) DIAGNOSTIC performed by Dee Pineda OR [facility] INFORMATION 12/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 INSER TUNN ACC DEV;5 YRS/OLDER Right 12/29/2022 INSERT TUNNELED CENTRAL VENOUS ACCESS WITH SUBQ PORT performed by Landon Hickman DO at OR [facility] LAPAROSCOPY DIAGNOSTIC 1988 for infertility MASTECTOMY, PARTIAL Left 05/13/2017 malignant RADIATION THERAPY Left 08/04/2017 RADIATION THERAPY DOSE PLAN Left 08/04/2017 RELIEVE INNER EYE PRESSURE Left 07/27/2019 left GONIOTOMY performed by Tristian Araujo MD at OR [facility] RELIEVE INNER EYE PRESSURE Right 08/08/2019 right GONIOTOMY performed by Tristian Araujo MD at OR [facility] REMOVE CATARACT, INSERT LENS PROSTH Left 07/27/2019 left EXTRACAPSULAR CATARACT REMOVAL WITH INTRAOCULAR LENS performed by Tristian Araujo MD at OR [facility] REMOVE CATARACT, INSERT LENS PROSTH Right 08/08/2019 right EXTRACAPSULAR CATARACT REMOVAL WITH INTRAOCULAR LENS performed by Tristian Araujo MD at OR [facility] SENTINEL LYMPH NODE BIOPSY PERFORMED Left 05/13/2017 [...] 05/10/2024 10:00 AM EDT Office Visit Hematology/Oncology [facility] [address] [place] [phone] Hardik Gross MD [address] [place] [address] 05/16/2024 11:00 AM EDT Laboratory Laboratory [facility] [address] [place] [phone] [facility] [address] [place] [address] 05/17/2024 1:30 PM EDT Hem/Onc Treatment Hematology/Oncology Treatment, [place] [address] [place] [phone] Jessica, Chair 4 Hem Onc [facility] [address] [place], [place] [address] 07/10/2024 1:00 PM EDT Office Visit Family Practice [address], [place] 293 [place] [phone] Kristine Kan DO 293 [place] [address] Scheduled Orders Name Type Priority Associated Diagnoses [...] Monitoring 11/09/2024 11/09/2023 CKD PHOS USE SMARTSET 09033 11/25/2024 11/25/2023, 0 12/05/2022 HbA1c 11/25/2024 11/25/2023, 11/04, 05/04/2022, Additional history exists CKD HGB USE SMARTSET 04467 05/02/202505/02, 05/02/2024, 04/25/2024, Additional history exists DXA [...] this encounter Medical Devices Implanted Type Area Supervisory Lifeguard Device Identifier Shelf Expiration Date Model / Serial / Lot Lens Intraoc 21.5 - [id number] - [id number] Implanted:Qty: 1 on 07/27/2019 by Tristian Araujo MD at OR [facility] Left: Eye BAUSCH & LOMB 04/02/2024 [id number] / [id number] / [id number] Lens Intraoc 21.5 - [id number] - [id number] Implanted:Qty: 1 on 08/08/2019 by Tristian Araujo MD at OR [facility] Right: Eye BAUSCH & LOMB 04/02/2024 [id number] / [id number] / [id number] Stent Axios [id number] - [id number] Implanted:Qty: 1 on 12/07/2022 by Tanya Morris MD at OR [facility] N/A: Abdomen [employer] : ENDOSCOPY [id number] 08/25/2023 [id number] / / [id number] Stent Bili Pigtail 7fr 100mm - [id number] Implanted:Qty: 1 on 12/07/2022 by Tanya Morris MD at OR [facility] N/A: Abdomen [employer] [id number] 08/03/2025 PBD-1033-0 710 / / [id number] Stent Bili Pigtail 7fr 100mm - [id number] Implanted:Qty: 1 on 12/07/2022 by Tanya Morris MD at OR [facility] N/A: Abdomen [employer] [id number] 08/03/2025 PBD-1033-0 710 / / 2YK Power Port 8fr Sngl Lumen Plas - [id number] Implanted:Qty: 1 on 12/29/2022 by Landon Hickman DO at OR [facility] Right: Chest CR BARD : PERIPHERAL VASCULAR [id number] 12/02/2023 [id number] / / [id number] Hanarostent Noncover 10dm 10cm - [id number] Implanted:Qty: 1 on 02/19/2023 by Tanya Morris MD at OR [facility] [employer] [id number] 12/31/2024 [facility]-10-100 -180 / / [id number] documented as of this encounter Visit Diagnoses [...] Advance Directives occurred with: Patient Care Teams Utilization Management Um Nurse Relationship Specialty Start Date End Date Kristine Kan DO [address] [place] [address] PCP - General Family Medicine 03/16/24 documented as of this encounter
--- OUTSIDE RECORDS SUMMARY | 2024-06-06 23:35 | External Medical Summary ---
Author Name Unknown Address Unknown Organization K09[facility] [place] [address] Laboratory Report Ordering Provider Test Date Status TASHA MANN 05/02/2024 10:02:23 Final Observation Date Value Abnormality Reference (Units ) Status WBC, Total 05/02/2024 10:02:23 5.84 4.00-10.8 0 (K/uL) Final RBC 05/02/2024 10:02:23 2.62 3.85-5.15 (M/uL) Final Hemoglobin 05/02/2024 10:02:23 8.8 Below low normal 12 .0-15.3 (g/dL) Final HCT 05/02/2024 10:02:23 28.7 Below low normal 36. 0-45.2 (%) Final MCV 05/02/2024 10:02:23 109.5 81.5-97.5 (fL) Final MCH 05/02/2024 10:02:23 33.6 27.0-34.0 (pg) Final MCHC 05/02/2024 10:02:23 30.7 32.0-36.0 (g/dL) Final RDW 05/02/2024 10:02:23 16.5 11.5-15.5 (%) Final Platelets 05/02/2024 10:02:23 286 140-400 (K /uL) Final MPV 05/02/2024 10:02:23 9.2 6.6-11.1 ( fL) Final Performing Location [facility] [place] [address]
--- OUTSIDE RECORDS SUMMARY | 2024-06-06 23:35 | External Medical Summary | Summary of Care ---
Author Name Unknown Organization [facility] Address [address] [place] [address] Phone [phone] Care Team Providers Care Biology Manager Name Role Phone Kristine Kan DO Primary Care Provider [phone] Reason for Visit * Reason Onset Date Comments Advice 05/09/2024 Encounter Details Date Type Department Care Team (Late st Contact Info) Description 05/09/2024 Telephone Family Practice 65 [facility] [address] [place] [phone] Kristine Kan DO [address] [place] [address] Advice Allergies Active Allergy Reactions Criticality Noted Date [...] mcgIndications:Vitamin B 12 deficiency 1000 mcg IM [id number] 09/02/2023 08/03/2024 Active documented as of this [...] encounter Miscellaneous Notes * Telephone Encounter - Bethanie Hernandez RN - 05/09/2024 1:56 PM EDT ASC call to pt for follow up for yesterday's appt with Dr Kan-see addendum to office visit note. Pt states she started last evening with possible UTI symptoms-feeling like she has to go but then only going small amount. Denies any pain/burning with urination, no abd/back discomfort, no fever-no other symptoms. Pt is trying to push fluids and drink cranberry juice. Asked if still symptomatic orif other symptoms if she could be checked for UTI Spoke with Dr Kan-said if still symptomatic she should stop in for POC/urine culture if needed. She won't be in office tomorrow but can show POC results to Dr Lyons. Pt notified and agreeable. She will call in tomorrow if still having symptoms. documented in this encounter Plan of Treatment Upcoming Encounters Date Type Department Care Team (Late st Contact Info) Description 05/10/2024 10:00 AM EDT Office Visit Hematology/Oncology [facility] [address] [place], [place] [phone] Hardik Gross MD [address] [place], [place] [address] 05/16/2024 11:00 AM EDT Laboratory Laboratory [facility] [place] [address] [place], [place] [phone] Jessica, Lab [facility] [address] [facility] [place], [place] [address] 05/17/2024 1:30 PM EDT [facility] [address] [place], [place] [phone] Jessica, Chair 4 Hem Onc [facility] [address] [facility] [place], [place] [address] 07/10/2024 1:00 PM EDT Office Visit Family Practice [address], [place] 293 [place] [address] Kristine Kan DO 293 [place] [address] Health Maintenance Due Date Last Done Comments Adult Wellness Visit 2015 COVID-19 Vaccine ( season) 2024 11/08/2023, 07/10/2022, 01/06/2022, Additional history exists Influenza Vaccine (FLU shot) (#1) 2024 06/30/2023, 07/18/2022, 05/18/2021, Additional history exists Albumin/Creatinine Ratio 09/02/2024 09/02/2023, 08/0 10/2021 GFR 11/02/2024 05/02/2024, 07/2 12/2023, 04/10/2024, Additional history exists Depression Monitoring 11/09/2024 11/09/2023 CKD PHOS USE SMARTSET 04479 11/25/2024 11/25/2023, 0 12/05/2022 HbA1c 11/25/2024 11/25/2023, 11/04, 05/04/2022, Additional history exists CKD HGB USE SMARTSET 45453 05/02/202505/02, 05/02/2024, 04/25/2024, Additional history exists DXA [...] this encounter Medical Devices Implanted Type Area Special Services Supervisor Device Identifier Shelf Expiration Date Model / Serial / Lot Lens Intraoc 21.5 - [id number] - [id number] Implanted:Qty: 1 on 07/27/2019 by Tristian Araujo MD at OR [facility] Left: Eye BAUSCH & LOMB 04/02/2024 [id number] / [id number] / [id number] Lens Intraoc 21.5 - [id number] - [id number] Implanted:Qty: 1 on 08/08/2019 by Tristian Araujo MD at OR [facility] Right: Eye BAUSCH & LOMB 04/02/2024 [id number] / [id number] / [id number] Stent Axios 53nlx24tg - [id number] Implanted:Qty: 1 on 12/07/2022 by Tanya Morris MD at OR [facility] N/A: Abdomen [employer] : ENDOSCOPY [id number] 08/25/2023 [id number] / / [id number] Stent Bili Pigtail 7fr 100mm - [id number] Implanted:Qty: 1 on 12/07/2022 by Tanya Morris MD at OR [facility] N/A: Abdomen [employer] [id number] 08/03/2025 PBD-1033-0 710 / / [id number] Stent Bili Pigtail 7fr 100mm - [id number] Implanted:Qty: 1 on 12/07/2022 by Tanya Morris MD at OR [facility] N/A: Abdomen [employer] [id number] 08/03/2025 PBD-1033-0 710 / / 2YK Power Port 8fr Sngl Lumen Plas - [id number] Implanted:Qty: 1 on 12/29/2022 by Landon Hickman DO at OR [facility] Right: Chest CR BARD : PERIPHERAL VASCULAR [id number] 12/02/2023 [id number] / / [id number] Hanarostent Noncover 10dm 10cm - [id number] Implanted:Qty: 1 on 02/19/2023 by Tanya Morris MD at OR [facility] [employer] [id number] 12/31/2024 SHS-10-100 -180 / / [id number] documented as of this encounter Advance Directives * Full Code (Latest Code Status on File) Date Activated Date Inactivated Comments 12/04/2022 10:10 PM 12/08/2022 3:55 PM This order re flects the patients wishes and were consensually agreed upon. Question Answer Comments Discussion of Advance Directives occurred with: Patient Care Teams Biology Manager Relationship Specialty Start Date End Date Kristine Kan DO [address] [place] [address] PCP - General Family Medicine 03/16/24 documented as of this encounter
--- OUTSIDE RECORDS SUMMARY | 2024-06-06 23:36 | External Medical Summary | Summary of Care ---
Author Name Unknown Organization [facility] Address [address] [place] [address] Phone [phone] Care Team Providers Care Electronic Organ Technician Name Role Phone Kristine Kan Primary Care Provider [phone] Reason for Visit * Reason Onset Date Comments Appointment 04/26/2024 Dr. Gross Encounter Details Date Type Department Care Team (Late st Contact Info) Description 04/26/2024 Telephone Hematology/Oncology [facility] [address] [place] [address] Services, Scheduling [address] [place] [address] Appointment (Dr. Gross) Allergies Active Allergy Reactions Criticality Noted Date Comments Latex Rash 06/28/2018 From a dressing Sulfamethoxazole Edema face/lips/tongue High 023 Trimethoprim Edema face/lips/tongue High 12/03/2022 documented as of this encounter (statuses as of 04/26/2024) Medications Medication Sig Dispensed Refills Start Date [...] Tablet Therapy Pack (Eliquis DVT/PE Starter Pack)Indications:Ac [place] 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 [...] mcgIndications:Vitamin B 12 deficiency 1000 mcg IM [id number] 09/02/2023 08/03/2024 Active Fluorouracil (5-Fu) 4,475 mg in NSS 138 mL infusion 4475 mg IV CONTINUOUS 04/26/2024 04/28/2024 Active documented as of this encounter (statuses as of 04/26/2024) Active Problems Problem Noted Date Diagnosed Date [...] as of this encounter (statuses as of 04/26/2024) Resolved Problems Problem Noted Date Diagnosed Date [...] as of this encounter (statuses as of 04/26/2024) Immunizations Name Administration Dates Next Due COVID-19 [...] encounter Miscellaneous Notes * Telephone Encounter - Lucille Gaytan OSA - 04/26/2024 11:12 AM EDT Left message * Telephone Encounter - Markel Rascon OSA - 04/26/2024 10:01 AM EDT Patient called in to cancel and reschedule her appt for today at 1pm. Please call her back at [phone] documented in this encounter Plan of Treatment Upcoming Encounters Date Type Department Care Team (Late st Contact Info) Description 05/05/2024 1:00 PM EDT Office Visit Family Practice [address], [place] [address] [facility] [place] [address] Kristine Kan, [address] [place] [address] 05/10/2024 10:00 AM EDT Office Visit Hematology/Oncology [facility] [place] 200 [facility] [place] [phone] Hardik Gross MD 200 [facility], [place] [address] Health Maintenance Due Date Last Done Comments COVID-19 Vaccine ( season) 2024 11/08/2023, 07/10/2022, 01/06/2022, Additional history exists Influenza Vaccine (FLU shot) (#1) 2024 06/30/2023, 07/18/2022, 05/18/2021, Additional history exists Albumin/Creatinine Ratio 09/02/2024 09/02/2023, 08/0 10/2021 GFR 10/26/2024 04/25/2024, 07/0 05/2024, 04/04/2024, Additional history exists Depression Monitoring 11/09/2024 11/09/2023 CKD PHOS USE SMARTSET 88861 11/25/2024 11/25/2023, 0 12/05/2022 HbA1c 11/25/2024 11/25/2023, 11/04, 05/04/2022, Additional history exists CKD HGB USE SMARTSET 38591 04/25/202504/25, 04/25/2024, 04/10/2024, Additional history exists DXA [...] this encounter Medical Devices Implanted Type Area Road Service Locksmith Device Identifier Shelf Expiration Date Model / Serial / Lot Lens Intraoc 21.5 - [id number] - [id number] Implanted:Qty: 1 on 07/27/2019 by Tristian Araujo MD at OR [facility] Left: Eye BAUSCH & LOMB 04/02/2024 [id number] / [id number] / [id number] Lens Intraoc 21.5 - [id number] - [id number] Implanted:Qty: 1 on 08/08/2019 by Tristian Araujo MD at OR [facility] Right: Eye BAUSCH & LOMB 04/02/2024 [id number] / [id number] / [id number] Stent Axios 13mku61vr - [id number] Implanted:Qty: 1 on 12/07/2022 by Tanya Morris MD at OR [facility] N/A: Abdomen [employer] : ENDOSCOPY [id number] 08/25/2023 [id number] / / [id number] Stent Bili Pigtail 7fr 100mm - [id number] Implanted:Qty: 1 on 12/07/2022 by Tanya Morris MD at OR [facility] N/A: Abdomen [employer] [id number] 08/03/2025 PBD-1033-0 710 / / 2YK Stent Bili Pigtail 7fr 100mm - [id number] Implanted:Qty: 1 on 12/07/2022 by Tanya Mroris MD at OR [facility] N/A: Abdomen [employer] [id number] 08/03/2025 PBD-1033-0 710 / / 2YK Power Port 8fr Sngl Lumen Plas - [id number] Implanted:Qty: 1 on 12/29/2022 by Landon Hickman DO at OR [facility] Right: Chest CR BARD : PERIPHERAL VASCULAR [id number] 12/02/2023 [id number] / / [id number] Hanarostent Noncover 10dm 10cm - [id number] Implanted:Qty: 1 on 02/19/2023 by Tanya Morris MD at OR [facility] [employer] [id number] 12/31/2024 SHS-10-100 -180 / / [id number] documented as of this encounter Advance Directives * Full Code (Latest Code Status on File) Date Activated Date Inactivated Comments 12/04/2022 10:10 PM 12/08/2022 3:55 PM This order re flects the patients wishes and were consensually agreed upon. Question Answer Comments Discussion of Advance Directives occurred with: Patient Care Teams Electronic Organ Technician Relationship Specialty Start Date End Date Kristine Kan DO [address] [place] [address] PCP - General Family Medicine 03/16/24 documented as of this encounter
--- OUTSIDE RECORDS SUMMARY | 2024-06-06 23:36 | External Medical Summary | Summary of Care ---
Author Name Unknown Organization [facility] Address [address] [place] [address] Phone [phone] Care Team Providers Care Interface Control Officer Name Role Phone Kristine Kan Primary Care Provider [phone] Reason for Visit * Reason Onset Date Comments Appointment 04/26/2024 Dr. Gross Encounter Details Date Type Department Care Team (Late st Contact Info) Description 04/26/2024 Telephone Hematology/Oncology [facility] [address] [place] [address] Services, Scheduling [address] [place] [address] Appointment (Dr. Gross) Allergies Active Allergy Reactions [...] Tablet Therapy Pack (Eliquis DVT/PE Starter Pack)Indications:Ac [place] 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 [...] mcgIndications:Vitamin B 12 deficiency 1000 mcg IM [id number] 09/02/2023 08/03/2024 Active Fluorouracil (5-Fu) 4,475 mg [...] at 1pm. Please call her back at [phone] documented in this encounter Plan of Treatment Upcoming Encounters Date Type Department Care Team (Late st Contact Info) Description 05/05/2024 1:00 PM EDT Office Visit Family Practice [address], [place] 293 [facility] [place] [address] Kristine Kan, [address] [place] [address] 05/10/2024 10:00 AM EDT Office Visit Hematology/Oncology [facility] [place] 200 [facility] [place] [phone] Hardik Gross MD 200 [facility], [place] [address] Health Maintenance Due Date Last Done Comments COVID-19 Vaccine ( season) 2024 11/08/2023, 07/10/2022, 01/06/2022, Additional history exists Influenza Vaccine (FLU shot) (#1) 2024 06/30/2023, 07/18/2022, 05/18/2021, Additional history exists Albumin/Creatinine Ratio 09/02/2024 09/02/2023, 08/0 10/2021 GFR 10/26/2024 04/25/2024, 07/0 05/2024, 04/04/2024, Additional history exists Depression Monitoring 11/09/2024 11/09/2023 CKD PHOS USE SMARTSET 02727 11/25/2024 11/25/2023, 0 12/05/2022 HbA1c 11/25/2024 11/25/2023, 11/04, 05/04/2022, Additional history exists CKD HGB USE SMARTSET 50896 04/25/202504/25, 04/25/2024, 04/10/2024, Additional history exists DXA [...] this encounter Medical Devices Implanted Type Area Resort Desk Clerk Device Identifier Shelf Expiration Date Model / Serial / Lot Lens Intraoc 21.5 - [id number] - [id number] Implanted:Qty: 1 on 07/27/2019 by Tristian Araujo MD at OR [facility] Left: Eye BAUSCH & LOMB 04/02/2024 [id number] / [id number] / [id number] Lens Intraoc 21.5 - [id number] - [id number] Implanted:Qty: 1 on 08/08/2019 by Tristian Araujo MD at OR [facility] Right: Eye BAUSCH & LOMB 04/02/2024 [id number] / [id number] / [id number] Stent Axios [id number] - [id number] Implanted:Qty: 1 on 12/07/2022 by Tanya Morris MD at OR [facility] N/A: Abdomen [employer] : ENDOSCOPY [id number] 08/25/2023 [id number] / / [id number] Stent Bili Pigtail 7fr 100mm - [id number] Implanted:Qty: 1 on 12/07/2022 by Tanya Morris MD at OR [facility] N/A: Abdomen [employer] [id number] 08/03/2025 PBD-1033-0 710 / / 2YK Stent Bili Pigtail 7fr 100mm - [id number] Implanted:Qty: 1 on 12/07/2022 by Tanya Morris MD at OR [facility] N/A: Abdomen [employer] [id number] 08/03/2025 PBD-1033-0 710 / / 2YK Power Port 8fr Sngl Lumen Plas - [id number] Implanted:Qty: 1 on 12/29/2022 by Landon Hickman DO at OR [facility] Right: Chest CR BARD : PERIPHERAL VASCULAR [id number] 12/02/2023 [id number] / / [id number] Hanarostent Noncover 10dm 10cm - [id number] Implanted:Qty: 1 on 02/19/2023 by Tanya Morris MD at OR [facility] [employer] [id number] 12/31/2024 SHS-10-100 -180 / / [id number] documented as of this encounter Advance Directives * Full Code (Latest Code Status on File) Date Activated Date Inactivated Comments 12/04/2022 10:10 PM 12/08/2022 3:55 PM This order re flects the patients wishes and were consensually agreed upon. Question Answer Comments Discussion of Advance Directives occurred with: Patient Care Teams Interface Control Officer Relationship Specialty Start Date End Date Kristine Kan DO [address] [place] [address] PCP - General Family Medicine 03/16/24 documented as of this encounter
--- OUTSIDE RECORDS SUMMARY | 2024-06-06 23:36 | External Medical Summary | Summary of Care ---
Author Name Unknown Organization [facility] Address [address] [place] [address] Phone [phone] Care Team Providers Care Gm Mobile Name Role Phone Kristine Kan Primary Care Provider [phone] Reason for Visit * Reason Comments Outpatient Testing Encounter Details Date Type Department Care Team (Late st Contact Info) Description 04/25/2024 11:00 AM EDT Laboratory Laboratory [facility] [address] [place] [phone] [facility] Lab [facility] 200 [facility] [place] [address] Carcinoma of gallbladder (HCC) Allergies Active Allergy Reactions Criticality Noted Date Comments Latex Rash 06/28/2018 From a dressing Sulfamethoxazole Edema face/lips/tongue High 023 Trimethoprim Edema face/lips/tongue High 12/03/2022 documented as of this encounter (statuses as of 04/25/2024) Medications Medication Sig Dispensed Refills Start Date [...] Tablet Therapy Pack (Eliquis DVT/PE Starter Pack)Indications:Ac [place] 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 [...] mcgIndications:Vitamin B 12 deficiency 1000 mcg IM [id number] 09/02/2023 08/03/2024 Active documented as of this encounter (statuses as of 04/25/2024) Active Problems Problem Noted Date Diagnosed Date [...] as of this encounter (statuses as of 04/25/2024) Resolved Problems Problem Noted Date Diagnosed Date [...] as of this encounter (statuses as of 04/25/2024) Immunizations Name Administration Dates Next Due COVID-19 [...] Team (Late st Contact Info) Description 04/26/2024 1:00 PM EDT Hem/Onc Treatment [facility] [place] [facility] [phone] [place], Chair 5 Hem On[address] [place] [address] 05/05/2024 1:00 PM EDT Office Visit Family Practice 65 [facility] 293 [place] [address] Kristine Kan DO [facility] [address] 05/10/2024 10:00 AM EDT Office Visit Hematology/Oncology [facility] [place] 200 [facility] [place] [phone] Hardik Gross MD 200 [facility] [place] [address] Pending Results Name Type Priority Associated Diagnoses Date /Time COMPREHENSIVE METABOLIC PANEL Lab STAT Carcinoma of gallbladder (HCC) 04/25/2024 11:00 AM EDT MAGNESIUM Lab STAT Carcinoma of gallbladder (HCC) 04/25/2024 11:00 AM EDT Health Maintenance Due Date Last Done Comments COVID-19 Vaccine ( season) 2024 11/08/2023, 07/10/2022, 01/06/2022, Additional history exists Influenza Vaccine (FLU shot) (#1) 2024 06/30/2023, 07/18/2022, 05/18/2021, Additional history exists Albumin/Creatinine Ratio 09/02/2024 09/02/2023, 08/0 10/2021 GFR 10/11/2024 04/10/2024, 0711/2023, 03/20/2024, Additional history exists Depression Monitoring 11/09/2024 11/09/2023 CKD PHOS USE SMARTSET 31842 11/25/2024 11/25/2023, 0 12/05/2022 HbA1c 11/25/2024 11/25/2023, 11/04, 05/04/2022, Additional history exists CKD HGB USE SMARTSET 25706 04/10/202504/25, 04/25/2024, 04/10/2024, Additional history exists DXA Scan [...] this encounter Medical Devices Implanted Type Area Darklight Inspector Device Identifier Shelf Expiration Date Model / Serial / Lot Lens Intraoc 21.5 - [id number] - [id number] Implanted:Qty: 1 on 07/27/2019 by Tristian Araujo MD at OR [facility] Left: Eye BAUSCH & LOMB 04/02/2024 [id number] / [id number] / [id number] Lens Intraoc 21.5 - [id number] - [id number] Implanted:Qty: 1 on 08/08/2019 by Tristian Araujo MD at OR [facility] Right: Eye BAUSCH & LOMB 04/02/2024 [id number] / [id number] / [id number] Stent Axios [id number] - [id number] Implanted:Qty: 1 on 12/07/2022 by Tanya Morris MD at OR [facility] N/A: Abdomen [employer] : ENDOSCOPY [id number] 08/25/2023 [id number] / / [id number] Stent Bili Pigtail 7fr 100mm - [id number] Implanted:Qty: 1 on 12/07/2022 by Tanya Morris MD at OR [facility] N/A: Abdomen [employer] [id number] 08/03/2025 PBD-1033-0 710 / / [id number] Stent Bili Pigtail 7fr 100mm - [id number] Implanted:Qty: 1 on 12/07/2022 by Tanya Morris MD at OR [facility] N/A: Abdomen [employer] [id number] 08/03/2025 PBD-1033-0 710 / / [id number] Power Port 8fr Sngl Lumen Plas - [id number] Implanted:Qty: 1 on 12/29/2022 by Landon Hickman DO at OR [facility] Right: Chest CR BARD : PERIPHERAL VASCULAR [id number] 12/02/2023 [id number] / / [id number] Hanarostent Noncover 10dm 10cm - [id number] Implanted:Qty: 1 on 02/19/2023 by Tanya Morris MD at OR [facility] [employer] [id number] 12/31/2024 SHS-10-100 -180 / / [id number] documented as of this encounter Procedures Procedure Name Priority Date/Time Associated Diagnosis Comments DIFFERENTIAL, AUTOMATED STAT 04/25/2024 11:00 AM EDT Carcinoma of gallbladder (HCC) CBC STAT 04/25/2024 11:00 AM EDT Carcinoma of gallbladder (HCC) CBC STAT 04/25/2024 11:00 AM EDT Carcinoma of gallbladder (HCC) documented in this encounter Results * DIFFERENTIAL, AUTOMATED (04/25/2024 11:00 AM EDT) WBC 7.32 4.00 - 10.80 K/uL 04/25/2024 11:10 AM EDT LABORATORY [place] 56-02 Neutrophils % 54.1 40.0 - 75.0 % 04/25/2024 11:10 AM EDT LABORATORY [place] 56-02 Lymphocytes % 36.6 18.0 - 42.0 % 04/25/2024 11:10 AM EDT LABORATORY [place] 56-02 Monocytes % 6.7 1.0 - 11.0 % 04/25/2024 11:10 AM EDT LABORATORY [place] 56-02 Eosinophils % 2.3 0.0 - 6.0 % 04/25/2024 11:10 AM EDT LABORATORY [facility] 56-02 Basophils % 0.3 0.0 - 2.0 % 04/25/2024 11:10 AM EDT LABORATORY [place] 56-02 Absolute Neutrophils 3.96 1.80 - 7.70 K/uL 04/25/2024 11:10 AM EDT LABORATORY [facility] 56-02 Absolute Lymphocytes 2.68 1.00 - 4.80 K/ul 04/25/2024 11:10 AM EDT LABORATORY [place] 56-02 Absolute Monocytes 0.49 0.00 - 1.10 K/uL 04/25/2024 11:10 AM EDT LABORATORY [place] 56-02 Absolute Eosinophils 0.17 0.00 - 0.70 K/uL 04/25/2024 11:10 AM EDT LABORATORY [place] 56-02 Absolute Basophils 0.02 0.00 - 0.20 K/uL 04/25/2024 11:10 AM EDT [place] [address] Blood Venous blood specimen / Unknown Venipuncture / Unknown 04/25/2024 11:00 AM EDT 04/25/2024 11:00 AM EDT Hardik Gross MD LAB BLOOD [place] [address] [place] [address] * (ABNORMAL) CBC (04/25/2024 11:00 AM EDT) WBC 7.32 4.00 - 10.80 K/uL 04/25/2024 11:10 AM EDT [place] [address] RBC 2.56 3.85 - 5.15 M/uL 04/25/2024 11:10 AM EDT [place] [address] HGB 8.7(L) 12.0 - 15.3 g/dL 04/25/2024 11:10 AM EDT [place] [address] HCT 28.3(L) 36.0 - 45.2 % 04/25/2024 11:10 AM EDT [address] MCV 110.5 81.5 - 97.5 fL 04/25/2024 11:10 AM EDT [place] [address] MCH 34.0 27.0 - 34.0 pg 04/25/2024 11:10 AM EDT [place] [address] MCHC 30.7 32.0 - 36.0 g/dL 04/25/2024 11:10 AM EDT [address] RDW 17.4 11.5 - 15.5 % 04/25/2024 11:10 AM EDT [address] PLT 208 140 - 400 K/uL 04/25/2024 11:10 AM EDT [address] MPV 9.1 6.6 - 11.1 fL 04/25/2024 11:10 AM EDT [facility] Blood Venous blood specimen / Unknown Venipuncture / Unknown 04/25/2024 11:00 AM EDT 04/25/2024 11:00 AM EDT Hardik Gross MD LAB BLOOD [facility] [place] [facility] [address] [place] [address] documented in this encounter Visit Diagnoses Diagnosis [...] Advance Directives occurred with: Patient Care Teams Gm Mobile Relationship Specialty Start Date End Date Kristine Kan DO 293 [place] [address] PCP - General Family Medicine 03/16/24 documented as of this encounter
--- OUTSIDE RECORDS SUMMARY | 2024-06-06 23:36 | External Medical Summary | Summary of Care ---
Author Name Unknown Organization [facility] Address [address] [place] [address] Phone [phone] Care Team Providers Care Hi Teacher Name Role Phone Kristine Kan Primary Care Provider [phone] Reason for Visit * Reason Onset Date Comments Appointment 04/26/2024 Dr. Gross Encounter Details Date Type Department Care Team (Late st Contact Info) Description 04/26/2024 Telephone Hematology/Oncology [facility] [address] [place] [address] Services, Scheduling [address] [place] [address] Appointment (Dr. Gross) Allergies Active Allergy Reactions [...] Tablet Therapy Pack (Eliquis DVT/PE Starter Pack)Indications:Ac [place] 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 [...] mcgIndications:Vitamin B 12 deficiency 1000 mcg IM [id number] 09/02/2023 08/03/2024 Active Fluorouracil (5-Fu) 4,475 mg [...] encounter Miscellaneous Notes * Addendum Note - Carla Damon RN [...] please call her to reschedule this. Thanks! Dr Ginny: SUE on above. * Telephone Encounter - Lucille [...] at 1pm. Please call her back at [phone] documented in this encounter Plan of Treatment Upcoming Encounters Date Type Department Care Team (Late st Contact Info) Description 05/01/2024 10:20 AM EDT Laboratory Laboratory [facility] Brittany Lopez [address] [place] [phone] [facility] [address] [place] [address] 05/03/2024 2:00 PM EDT Hem/Onc Treatment Hematology/Oncology [facility] [place] [address] [facility] [address] [place], [place] [phone] Jessica, Chair [address] [facility] [address] [facility] [place], [place] [address] 05/05/2024 1:00 PM EDT Office Visit Family Practice 65 [facility] 293 [place] [address] Kristine Kan DO 293 [facility], [place] [address] 05/10/2024 10:00 AM EDT Office Visit Hematology/Oncology [facility] [address] [facility] [place], [place] [phone] Hardik Gross MD [address] [facility] [place], [place] [address] Health Maintenance Due Date Last Done Comments COVID-19 Vaccine ( season) 2024 11/08/2023, 07/10/2022, 01/06/2022, Additional history exists Influenza Vaccine (FLU shot) (#1) 2024 06/30/2023, 07/18/2022, 05/18/2021, Additional history exists Albumin/Creatinine Ratio 09/02/2024 09/02/2023, 08/0 10/2021 GFR 10/26/2024 04/25/2024, 07/0 05/2024, 04/04/2024, Additional history exists Depression Monitoring 11/09/2024 11/09/2023 CKD PHOS USE SMARTSET 90063 11/25/2024 11/25/2023, 0 12/05/2022 HbA1c 11/25/2024 11/25/2023, 11/04, 05/04/2022, Additional history exists CKD HGB USE SMARTSET 54944 04/25/202504/25, 04/25/2024, 04/10/2024, Additional history exists DXA [...] this encounter Medical Devices Implanted Type Area Bulb Sorter Device Identifier Shelf Expiration Date Model / Serial / Lot Lens Intraoc 21.5 - [id number] - [id number] Implanted:Qty: 1 on 07/27/2019 by Tristian Araujo MD at OR [facility] Left: Eye BAUSCH & LOMB 04/02/2024 [id number] / [id number] / [id number] Lens Intraoc 21.5 - [id number] - [id number] Implanted:Qty: 1 on 08/08/2019 by Tristian Araujo MD at OR [facility] Right: Eye BAUSCH & LOMB 04/02/2024 [id number] / [id number] / [id number] Stent Axios [id number] - [id number] Implanted:Qty: 1 on 12/07/2022 by Tanya Morris MD at OR [facility] N/A: Abdomen [employer] : ENDOSCOPY [id number] 08/25/2023 [id number] / / [id number] Stent Bili Pigtail 7fr 100mm - [id number] Implanted:Qty: 1 on 12/07/2022 by Tanya Morris MD at OR [facility] N/A: Abdomen [employer] [id number] 08/03/2025 PBD-1033-0 710 / / [id number] Stent Bili Pigtail 7fr 100mm - [id number] Implanted:Qty: 1 on 12/07/2022 by Tanya Morris MD at OR [facility] N/A: Abdomen [employer] [id number] 08/03/2025 PBD-1033-0 710 / / 2YK Power Port 8fr Sngl Lumen Plas - [id number] Implanted:Qty: 1 on 12/29/2022 by Landon Hickman DO at OR [facility] Right: Chest CR BARD : PERIPHERAL VASCULAR [id number] 12/02/2023 [id number] / / [id number] Hanarostent Noncover 10dm 10cm - [id number] Implanted:Qty: 1 on 02/19/2023 by Tanya Morris MD at OR [facility] [employer] [id number] 12/31/2024 [facility]-10-100 -180 / / [id number] documented as of this encounter Advance Directives * Full Code (Latest Code Status on File) Date Activated Date Inactivated Comments 12/04/2022 10:10 PM 12/08/2022 3:55 PM This order re flects the patients wishes and were consensually agreed upon. Question Answer Comments Discussion of Advance Directives occurred with: Patient Care Teams Hi Teacher Relationship Specialty Start Date End Date Kristine Kan DO [address] [place] [address] PCP - General Family Medicine 03/16/24 documented as of this encounter
--- OUTSIDE RECORDS SUMMARY | 2024-06-06 23:36 | External Medical Summary | Summary of Care ---
Author Name Unknown Organization [facility] Address [address] [place] [address] Phone [phone] Care Team Providers Care Emissions Technician Name Role Phone Kristine Kan Primary Care Provider [phone] Reason for Visit * Reason Onset Date Comments Test Results 04/14/2024 Encounter Details Date Type Department Care Team (Late st Contact Info) Description 04/14/2024 Refill Nephrology, [place] [address] [place] [address] Juliana Motta MD 200 [facility] [place] [address] Dysuria* Allergies Active Allergy Reactions Criticality Noted Date Comments Latex Rash 06/28/2018 From a dressing Sulfamethoxazole Edema face/lips/tongue High 023 Trimethoprim Edema face/lips/tongue High 12/03/2022 documented as of this encounter (statuses as of 04/14/2024) Medications Medication Sig Dispensed Refills Start Date [...] Tablet Therapy Pack (Eliquis DVT/PE Starter Pack)Indications:Ac [place] 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 [...] mcgIndications:Vitamin B 12 deficiency 1000 mcg IM [id number] 09/02/2023 08/03/2024 Active documented as of this encounter (statuses as of 04/14/2024) Active Problems Problem Noted Date Diagnosed Date [...] as of this encounter (statuses as of 04/14/2024) Resolved Problems Problem Noted Date Diagnosed Date [...] as of this encounter (statuses as of 04/14/2024) Immunizations Name Administration Dates Next Due COVID-19 [...] encounter Miscellaneous Notes * Telephone Encounter - Juliana Motta MD - 04/14/2024 1:20 PM EDTSigned Prescriptions: Disp Refills Ciprofloxacin HCl 500 MG Oral Tablet (Cipr*7 Tabl*0 Sig: Take 1 Tablet by mouth in the morning. Authorizing Provider: JULIANA MOTTA * Telephone Encounter - Romana Sanabria RN - 04/14/2024 12:32 PM EDT TE with pt regarding urine culture results. Order pended for signature. * Telephone Encounter - Romana Sanabria RN - 04/14/2024 12:31 PM EDT ----- Message from Juliana Motta MD sent at 04/14/2024 11:56 AM EDT ----- Use Cipro 500 daily for 7 days. documented in this encounter Plan of Treatment Upcoming Encounters Date Type Department Care Team (Late st Contact Info) Description 04/25/2024 11:00 AM EDT Laboratory Laboratory [facility] 200 [facility] [place] [address] Jessica, Lab [address] [place] [address] 04/26/2024 1:00 PM EDT Hem/Onc Treatment Hematology/Oncology [facility] 200 [place] [phone] Jessica, Chair [address] Hem On[address] [place] [address] 05/05/2024 1:00 PM EDT Office Visit Family Practice [address] [place] [address] 293 [place] [address] Kristine Kan DO 293 [place] [address] 05/10/2024 10:00 AM EDT Office Visit Hematology/Oncology [address] [place] [phone] Hardik Gross MD 200 [facility] [place] [address] Health Maintenance Due Date Last Done Comments COVID-19 Vaccine ( season) 2024 11/08/2023, 07/10/2022, 01/06/2022, Additional history exists Influenza Vaccine (FLU shot) (#1) 2024 06/30/2023, 07/18/2022, 05/18/2021, Additional history exists Albumin/Creatinine Ratio 09/02/2024 09/02/2023, 08/0 10/2021 GFR 10/11/2024 04/10/2024, 07/0 11/2023, 03/20/2024, Additional history exists Depression Monitoring 11/09/2024 11/09/2023 CKD PHOS USE SMARTSET 07138 11/25/2024 11/25/2023, 0 12/05/2022 HbA1c 11/25/2024 11/25/2023, 11/04, 05/04/2022, Additional history exists CKD HGB USE SMARTSET 76135 04/10/202504/10, 04/10/2024, 04/04/2024, Additional history exists DXA Scan 12/16/2028 12/16/2021, [...] this encounter Medical Devices Implanted Type Area On Site Construction Superintendent Device Identifier Shelf Expiration Date Model / Serial / Lot Lens Intraoc 21.5 - [id number] - [id number] Implanted:Qty: 1 on 07/27/2019 by Tristian Araujo MD at OR [facility] Left: Eye BAUSCH & LOMB 04/02/2024 [id number] / [id number] / [id number] Lens Intraoc 21.5 - [id number] - [id number] Implanted:Qty: 1 on 08/08/2019 by Tristian Araujo MD at OR [facility] Right: Eye BAUSCH & LOMB 04/02/2024 [id number] / [id number] / [id number] Stent Axios [id number] - [id number] Implanted:Qty: 1 on 12/07/2022 by Tanya Morris MD at OR [facility] N/A: Abdomen [employer] : ENDOSCOPY [id number] 08/25/2023 [id number] / / [id number] Stent Bili Pigtail 7fr 100mm - [id number] Implanted:Qty: 1 on 12/07/2022 by Tanya Morris MD at OR [facility] N/A: Abdomen [employer] [id number] 08/03/2025 PBD-1033-0 710 / / 2YK Stent Bili Pigtail 7fr 100mm - [id number] Implanted:Qty: 1 on 12/07/2022 by Tanya Morris MD at OR [facility] N/A: Abdomen [employer] [id number] 08/03/2025 PBD-1033-0 710 / / 2YK Power Port 8fr Sngl Lumen Plas - [id number] Implanted:Qty: 1 on 12/29/2022 by Landon Hickman DO at OR [facility] Right: Chest CR BARD : PERIPHERAL VASCULAR [id number] 12/02/2023 [id number] / / [id number] Hanarostent Noncover 10dm 10cm - [id number] Implanted:Qty: 1 on 02/19/2023 by Tanya Morris MD at OR [facility] [employer] [id number] 12/31/2024 [facility]-10-100 -180 / / [id number] documented as of this encounter Visit Diagnoses Diagnosis Dysuria- Primary documented in this encounter Advance Directives * Full Code (Latest Code Status on File) Date Activated Date Inactivated Comments 12/04/2022 10:10 PM 12/08/2022 3:55 PM This order re flects the patients wishes and were consensually agreed upon. Question Answer Comments Discussion of Advance Directives occurred with: Patient Care Teams Emissions Technician Relationship Specialty Start Date End Date Kristine Kan DO [address] [place], [place] [address] [place] [address] PCP - General Family Medicine 03/16/24 documented as of this encounter
--- OUTSIDE RECORDS SUMMARY | 2024-06-06 23:36 | External Medical Summary | Summary of Care ---
Author Name Unknown Organization [facility] Address [address] [place] [address] Phone [phone] Care Team Providers Care Pediatric Medical Assistant Name Role Phone Kristine Kan Primary Care Provider [phone] Encounter Details Date Type Department Care Team (Late st Contact Info) Description 04/23/2024 Orders Only Hematology/Oncology, [facility] [address] [place] [address] Hardik Gross MD 200 [place] [address] Allergies Active Allergy Reactions Criticality Noted Date Comments Latex Rash 06/28/2018 From a dressing Sulfamethoxazole Edema face/lips/tongue High 023 Trimethoprim Edema face/lips/tongue High 12/03/2022 documented as of this encounter (statuses as of 04/23/2024) Medications Medication Sig Dispensed Refills Start Date [...] Tablet Therapy Pack (Eliquis DVT/PE Starter Pack)Indications:Ac [place] 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 [...] mcgIndications:Vitamin B 12 deficiency 1000 mcg IM [id number] 09/02/2023 08/03/2024 Active documented as of this encounter (statuses as of 04/23/2024) Active Problems Problem Noted Date Diagnosed Date [...] as of this encounter (statuses as of 04/23/2024) Resolved Problems Problem Noted Date Diagnosed Date [...] as of this encounter (statuses as of 04/23/2024) Immunizations Name Administration Dates Next Due COVID-19 [...] Description 04/25/2024 11:00 AM EDT Laboratory Laboratory [facility] [address] [place] [phone] Jessica Lab [place] [address] [address] [place] [address] 04/26/2024 1:00 PM EDT Hem/Onc Treatment Hematology/Oncology Treatment, [place] 200 [facility] [place] [phone] Jessica, Chair 5 Hem Onc [facility] [address] [place] [address] 05/05/2024 1:00 PM EDT Office Visit Family Practice [address], [place] 293 [facility], [place] [address] Kristine Kan DO 293 [facility], [place] [address] 05/10/2024 10:00 AM EDT Office Visit Hematology/Oncology [facility] [place] [address] [place] [address] Hardik Gross MD 200 [facility] [place], [place] [address] Health Maintenance Due Date Last Done Comments COVID-19 Vaccine (2022-24 season) 2024 11/08/2023, 07/10/2022, 01/06/2022, Additional history exists Influenza Vaccine (FLU shot) (#1) 2024 06/30/2023, 07/18/2022, 05/18/2021, Additional history exists Albumin/Creatinine Ratio 09/02/2024 09/02/2023, 08/0 10/2021 GFR 10/11/2024 04/10/2024, 07/0 11/2023, 03/20/2024, Additional history exists Depression Monitoring 11/09/2024 11/09/2023 CKD PHOS USE SMARTSET 04450 11/25/2024 11/25/2023, 0 12/05/2022 HbA1c 11/25/2024 11/25/2023, 11/04, 05/04/2022, Additional history exists CKD HGB USE SMARTSET 90925 04/10/202504/10, 04/10/2024, 04/04/2024, Additional history exists DXA [...] this encounter Medical Devices Implanted Type Area Summer Counselor Device Identifier Shelf Expiration Date Model / Serial / Lot Lens Intraoc 21.5 - [id number] - [id number] Implanted:Qty: 1 on 07/27/2019 by Tristian Arajuo MD at OR [facility] Left: Eye BAUSCH & LOMB 04/02/2024 [id number] / [id number] / [id number] Lens Intraoc 21.5 - [id number] - [id number] Implanted:Qty: 1 on 08/08/2019 by Tristian Araujo MD at OR [facility] Right: Eye BAUSCH & LOMB 04/02/2024 [id number] / [id number] / [id number] Stent Axios [id number] - [id number] Implanted:Qty: 1 on 12/07/2022 by Tanya Morris MD at OR [facility] N/A: Abdomen [employer] : ENDOSCOPY [id number] 08/25/2023 [id number] / / [id number] Stent Bili Pigtail 7fr 100mm - [id number] Implanted:Qty: 1 on 12/07/2022 by Tanya Morris MD at OR [facility] N/A: Abdomen [employer] [id number] 08/03/2025 PBD-1033-0 710 / / [id number] Stent Bili Pigtail 7fr 100mm - [id number] Implanted:Qty: 1 on 12/07/2022 by Tanya Morris MD at OR [facility] N/A: Abdomen [employer] [id number] 08/03/2025 PBD-1033-0 710 / / 2YK Power Port 8fr Sngl Lumen Plas - [id number] Implanted:Qty: 1 on 12/29/2022 by Landon Hickman DO at OR [facility] Right: Chest CR BARD : PERIPHERAL VASCULAR [id number] 12/02/2023 [id number] / / [id number] Hanarostent Noncover 10dm 10cm - [id number] Implanted:Qty: 1 on 02/19/2023 by Tanya Morris MD at OR [facility] [email or web address] [id number] 12/31/2024 [facility]-10-100 -180 / / [id number] documented as of this encounter Advance Directives * Full Code (Latest Code Status on File) Date Activated Date Inactivated Comments 12/04/2022 10:10 PM 12/08/2022 3:55 PM This order re flects the patients wishes and were consensually agreed upon. Question Answer Comments Discussion of Advance Directives occurred with: Patient Care Teams Pediatric Medical Assistant Relationship Specialty Start Date End Date Kristine Kan DO [address] [place] [address] PCP - General Family Medicine 03/16/24 documented as of this encounter
--- OUTSIDE RECORDS SUMMARY | 2024-06-06 23:36 | External Medical Summary ---
Author Name Unknown Address Unknown Organization K[facility] [place] [address] Laboratory Report Ordering Provider Test Date Status TASHA MANN 04/25/2024 11:00:05 Final Observation Date Value Abnormality Reference (Units ) Status WBC, Total 04/25/2024 11:00:05 7.32 4.00-10.8 0 (K/uL) Final RBC 04/25/2024 11:00:05 2.56 3.85-5.15 (M/uL) Final Hemoglobin 04/25/2024 11:00:05 8.7 Below low normal 12 .0-15.3 (g/dL) Final HCT 04/25/2024 11:00:05 28.3 Below low normal 36. 0-45.2 (%) Final MCV 04/25/2024 11:00:05 110.5 81.5-97.5 (fL) Final MCH 04/25/2024 11:00:05 34.0 27.0-34.0 (pg) Final MCHC 04/25/2024 11:00:05 30.7 32.0-36.0 (g/dL) Final RDW 04/25/2024 11:00:05 17.4 11.5-15.5 (%) Final Platelets 04/25/2024 11:00:05 208 140-400 (K /uL) Final MPV 04/25/2024 11:00:05 9.1 6.6-11.1 ( fL) Final Performing Location [facility] [place] [address]
--- OUTSIDE RECORDS SUMMARY | 2024-06-06 23:36 | External Medical Summary ---
Author Name Unknown Address Unknown Organization [facility] [address] [place] [address] Laboratory Report Ordering Provider Test Date Status TASHA MANN 04/25/2024 11:00:05 Final Observation Date Value Abnormality Reference (Units ) Status BUN 04/25/2024 11:00:05 25 Above high normal 6-20 (mg/dL) Final Creatinine 04/25/2024 11:00:05 1.6 Above high normal 0.5-1.0 (mg/dL) Final Glomerular filtration rate/1.73 sq M.predicted [Volume Rate/Area] in Serum, Plasma or Blood by Creatinine-based formula (CKD-EPI) 04/25/2024 11:00:05 33 Below low normal >=60 (mL/min) Final eGFR is calculated based on the CKD-EPI 2020 equation. Sodium 04/25/2024 11:00:05 139 135-146 (m mol/L) Final Potassium 04/25/2024 11:00:05 3.6 3.5-5.1 (m mol/L) Final Cl 04/25/2024 11:00:05 103 98-107 (mm ol/L) Final CO2 04/25/2024 11:00:05 22 22-32 (mmo l/L) Final Anion gap 04/25/2024 11:00:05 14 7-15 (mmol /L) Final Glucose 04/25/2024 11:00:05 139 Above high normal 70 -120 (mg/dL) Final Albumin 04/25/2024 11:00:05 3.6 Below low normal 3.8 -5.0 (g/dL) Final AST (Aspartate aminotransferase) 04/25/2024 11:00:05 10 10-35 (U/L) Fin al Alk Phos 04/25/2024 11:00:05 83 35-130 (U/ L) Final Bilirubin, Total 04/25/2024 11:00:05 0.3 <=1 .2 (mg/dL) Final Calcium 04/25/2024 11:00:05 9.7 8.4-10.2 ( mg/dL) Final Protein 04/25/2024 11:00:05 6.8 6.0-8.3 (g /dL) Final ALT (Alanine aminotransferase) 04/25/2024 11:00:05 <5 Below low normal 10-35 (U/L) Final Performing Location [facility] [address] [place] [address]
--- OUTSIDE RECORDS SUMMARY | 2024-06-06 23:36 | External Medical Summary | Summary of Care ---
Author Name Unknown Organization [facility] Address [address] [place] [address] Phone [phone] Care Team Providers Care Fbi Sharpshooter Name Role Phone Kristine Kan Primary Care Provider [phone] Encounter Details Date Type Department Care Team (Late st Contact Info) Description 04/26/2024 Orders Only [facility] [address] [place] [address] Hardik Gross MD [address] [place] [address] Allergies Active Allergy Reactions Criticality Noted Date [...] mcgIndications:Vitamin B 12 deficiency 1000 mcg IM [id number] 09/02/2023 08/03/2024 Active Fluorouracil (5-Fu) 4,475 mg [...] Department Care Team (Latest Contact Info) Description 04/26/2024 1:00 PM EDT Hem/Onc Treatment Hematology/Oncolog y [facility] 200 [facility] [place] [address] Jessica, Chair 5 Hem Onc [facility] 200 [facility] [place] [address] Carcinoma of gallbladder (HCC)*; Encounter for antineoplastic chemotherapy 05/05/2024 1:00 PM EDT Office Visit Family Practice [facility] [address] Kristine Kan DO 293 [facility] [address] 05/10/2024 10:00 AM EDT Office Visit Hematology/Oncolog y [facility] Jessica [place] [address] [place] [phone] Hardik Gross MD [address] [place] [address] Health Maintenance Due Date Last Done Comments COVID-19 Vaccine ( season) 2024 11/08/2023, 07/10/2022, 01/06/2022, Additional history exists Influenza Vaccine (FLU shot) (#1) 2024 06/30/2023, 07/18/2022, 05/18/2021, Additional history exists Albumin/Creatinine Ratio 09/02/2024 09/02/2023, 08/0 10/2021 GFR 10/26/2024 04/25/2024, 07/0 05/2024, 04/04/2024, Additional history exists Depression Monitoring 11/09/2024 11/09/2023 CKD PHOS USE SMARTSET 53607 11/25/2024 11/25/2023, 0 12/05/2022 HbA1c 11/25/2024 11/25/2023, 11/04, 05/04/2022, Additional history exists CKD HGB USE SMARTSET 17472 04/25/202504/25, 04/25/2024, 04/10/2024, Additional history exists DXA [...] this encounter Medical Devices Implanted Type Area Director Religious Education Device Identifier Shelf Expiration Date Model / Serial / Lot Lens Intraoc 21.5 - [id number] - [id number] Implanted:Qty: 1 on 07/27/2019 by Tristian Araujo MD at OR [facility] Left: Eye BAUSCH & LOMB 04/02/2024 [id number] / [id number] / [id number] Lens Intraoc 21.5 - [id number] - [id number] Implanted:Qty: 1 on 08/08/2019 by Tristian Araujo MD at OR [facility] Right: Eye BAUSCH & LOMB 04/02/2024 [id number] / [id number] / [id number] Stent Axios [id number] - [id number] Implanted:Qty: 1 on 12/07/2022 by Tanya Morris MD at OR [facility] N/A: Abdomen [employer] : ENDOSCOPY [id number] 08/25/2023 [id number] / / [id number] Stent Bili Pigtail 7fr 100mm - [id number] Implanted:Qty: 1 on 12/07/2022 by Tanya Morris MD at OR [facility] N/A: Abdomen invino INC [id number] 08/03/2025 PBD-1033-0 710 / / [id number] Stent Bili Pigtail 7fr 100mm - [id number] Implanted:Qty: 1 on 12/07/2022 by Tanya Morris MD at OR [facility] N/A: Abdomen invino INC [id number] 08/03/2025 PBD-1033-0 710 / / [id number] Power Port 8fr Sngl Lumen Plas - [id number] Implanted:Qty: 1 on 12/29/2022 by Landon Hickman DO at OR [facility] Right: Chest CR BARD : PERIPHERAL VASCULAR [id number] 12/02/2023 [id number] / / [id number] Hanarostent Noncover 10dm 10cm - [id number] Implanted:Qty: 1 on 02/19/2023 by Tanya Morris MD at OR [facility] invino INC [id number] 12/31/2024 SHS-10-100 -180 / / [id number] documented as of this encounter Advance Directives * Full Code (Latest Code Status on File) Date Activated Date Inactivated Comments 12/04/2022 10:10 PM 12/08/2022 3:55 PM This order re flects the patients wishes and were consensually agreed upon. Question Answer Comments Discussion of Advance Directives occurred with: Patient Care Teams Fbi Sharpshooter Relationship Specialty Start Date End Date Kristine Kan DO [address] [place] [address] PCP - General Family Medicine 03/16/24 documented as of this encounter
--- OUTSIDE RECORDS SUMMARY | 2024-06-06 23:36 | External Medical Summary | Summary of Care ---
Author Name Unknown Organization [facility] Address [address] [place] [address] Phone [phone] Care Team Providers Care Meat Manager Name Role Phone Kristine Kan Primary Care Provider [phone] Reason for Visit * Reason Onset Date Comments Appointment 04/26/2024 Dr. Gross Encounter Details Date Type Department Care Team (Late st Contact Info) Description 04/26/2024 Telephone Hematology/Oncology [facility] [address] [place] [address] Services, Scheduling [address] [place] [address] Appointment (Dr. Gross) Allergies Active Allergy Reactions [...] Tablet Therapy Pack (Eliquis DVT/PE Starter Pack)Indications:Ac [place] 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 [...] mcgIndications:Vitamin B 12 deficiency 1000 mcg IM [id number] 09/02/2023 08/03/2024 Active Fluorouracil (5-Fu) 4,475 mg [...] on file Are you (or your family) ivc eless or worried that you might be [...] at 1pm. Please call her back at [phone] documented in this encounter Plan of Treatment Upcoming Encounters Date Type Department Care Team (Late st Contact Info) Description 05/01/2024 10:20 AM EDT Laboratory Laboratory [facility] 200 [facility] [phone] Jessica Lab [facility] [place] [address] 05/03/2024 2:00 PM EDT Hem/Onc Treatment Hematology/Oncology [facility] [phone] Jessica, Chair 11 Hem Onc [facility] 200 [facility] [place] [address] 05/05/2024 1:00 PM EDT Office Visit Family Practice [address] [place] [address] 293 [facility] [place] [address] Kristine Kan DO 293 [place] [address] 05/10/2024 10:00 AM EDT Office Visit Hematology/Oncology [facility] 200 [facility] [place] [phone] Hardik Gross MD 200 [place] [address] Health Maintenance Due Date Last Done Comments COVID-19 Vaccine ( season) 2024 11/08/2023, 07/10/2022, 01/06/2022, Additional history exists Influenza Vaccine (FLU shot) (#1) 2024 06/30/2023, 07/18/2022, 05/18/2021, Additional history exists Albumin/Creatinine Ratio 09/02/2024 09/02/2023, 082 GFR 10/26/2024 04/25/2024, 07/0 05/2024, 04/04/2024, Additional history exists Depression Monitoring 11/09/2024 11/09/2023 CKD PHOS USE SMARTSET 30764 11/25/2024 11/25/2023, 0 12/05/2022 HbA1c 11/25/2024 11/25/2023, 11/04, 05/04/2022, Additional history exists CKD HGB USE SMARTSET 18135 04/25/202504/25, 04/25/2024, 04/10/2024, Additional history exists DXA [...] this encounter Medical Devices Implanted Type Area Area Forester Device Identifier Shelf Expiration Date Model / Serial / Lot Lens Intraoc 21.5 - [id number] - [id number] Implanted:Qty: 1 on 07/27/2019 by Tristian Araujo MD at OR [facility] Left: Eye BAUSCH & LOMB 04/02/2024 [id number] / [id number] / [id number] Lens Intraoc 21.5 - [id number] - [id number] Implanted:Qty: 1 on 08/08/2019 by Tristian Araujo MD at OR [facility] Right: Eye BAUSCH & LOMB 04/02/2024 [id number] / [id number] / [id number] Stent Axios [id number] - [id number] Implanted:Qty: 1 on 12/07/2022 by Tanya Morris MD at OR [facility] N/A: Abdomen [employer] : ENDOSCOPY [id number] 08/25/2023 [id number] / / [id number] Stent Bili Pigtail 7fr 100mm - [id number] Implanted:Qty: 1 on 12/07/2022 by Tanya Morris MD at OR [facility] N/A: Abdomen OLYMPUS [employer] [id number] 08/03/2025 PBD-1033-0 710 / / [id number] Stent Bili Pigtail 7fr 100mm - [id number] Implanted:Qty: 1 on 12/07/2022 by Tanya Morris MD at OR [facility] N/A: Abdomen fishfishme CHLOE INC [id number] 08/03/2025 PBD-1033-0 710 / / 2YK Power Port 8fr Sngl Lumen Plas - [id number] Implanted:Qty: 1 on 12/29/2022 by Landon Hickman DO at OR [facility] Right: Chest CR BARD : PERIPHERAL VASCULAR [id number] 12/02/2023 [id number] / / [id number] Hanarostent Noncover 10dm 10cm - [id number] Implanted:Qty: 1 on 02/19/2023 by Tanya Morris MD at OR [facility] fishfishme [employer] [id number] 12/31/2024 [facility]-10-100 -180 / / [id number] documented as of this encounter Advance Directives * Full Code (Latest Code Status on File) Date Activated Date Inactivated Comments 12/04/2022 10:10 PM 12/08/2022 3:55 PM This order re flects the patients wishes and were consensually agreed upon. Question Answer Comments Discussion of Advance Directives occurred with: Patient Care Teams Meat Manager Relationship Specialty Start Date End Date Kristine Kan DO [address] [place] [address] PCP - General Family Medicine 03/16/24 documented as of this encounter
--- OUTSIDE RECORDS SUMMARY | 2024-06-06 23:36 | External Medical Summary | Summary of Care ---
Author Name Unknown Organization [facility] Address [address] [place] [address] Phone [phone] Care Team Providers Care Lead Machinist Name Role Phone Kristine Kan Primary Care Provider [phone] Reason for Visit * Reason Onset Date Comments Appointment 04/26/2024 Dr. Gross Encounter Details Date Type Department Care Team (Late st Contact Info) Description 04/26/2024 Telephone Hematology/Oncology [facility] [address] [place] [address] Services, Scheduling [address] [place] [address] Appointment (Dr. Gross) Allergies Active Allergy Reactions [...] Tablet Therapy Pack (Eliquis DVT/PE Starter Pack)Indications:Ac [place] 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 [...] mcgIndications:Vitamin B 12 deficiency 1000 mcg IM [id number] 09/02/2023 08/03/2024 Active Fluorouracil (5-Fu) 4,475 mg [...] call her to reschedule this. Thanks! Dr Gross: SUE on above. * Telephone Encounter - [...] at 1pm. Please call her back at [phone] documented in this encounter Plan of Treatment Upcoming Encounters Date Type Department Care Team (Late st Contact Info) Description 05/02/2024 10:00 AM EDT Laboratory Laboratory [facility] [place] [address] [place], [place] [phone] Jessica, Lab [facility] 200 [facility] [place], [place] [address] 05/03/2024 2:00 PM EDT [facility] [address] [facility] [place], [place] [phone] Jessica, Chair 11 Hem Onc [facility] 200 [facility] [place], [place] [address] 05/05/2024 1:00 PM EDT Office Visit Family Practice 65 [facility] 293 [facility] [place] [address] Kristine Kan DO 293 [place] [address] 05/10/2024 10:00 AM EDT Office Visit Hematology/Oncology [facility] 200 [facility] [place], [place] [phone] Hardik Gross MD 200 [facility] [place] [address] Health Maintenance Due Date Last Done Comments COVID-19 Vaccine (2022- season) 2024 11/08/2023, 07/10/2022, 01/06/2022, Additional history exists Influenza Vaccine (FLU shot) (#1) 2024 06/30/2023, 07/18/2022, 05/18/2021, Additional history exists Albumin/Creatinine Ratio 09/02/2024 09/02/2023, 08/0 10/2021 GFR 10/26/2024 04/25/2024, 07/0 05/2024, 04/04/2024, Additional history exists Depression Monitoring 11/09/2024 11/09/2023 CKD PHOS USE SMARTSET 96772 11/25/2024 11/25/2023, 0 12/05/2022 HbA1c 11/25/2024 11/25/2023, 11/04, 05/04/2022, Additional history exists CKD HGB USE SMARTSET 99978 04/25/202504/25, 04/25/2024, 04/10/2024, Additional history exists DXA [...] this encounter Medical Devices Implanted Type Area Endoscopy Rn Device Identifier Shelf Expiration Date Model / Serial / Lot Lens Intraoc 21.5 - [id number] - [id number] Implanted:Qty: 1 on 07/27/2019 by Tristian Araujo MD at OR [facility] Left: Eye BAUSCH & LOMB 04/02/2024 [id number] / [id number] / [id number] Lens Intraoc 21.5 - [id number] - [id number] Implanted:Qty: 1 on 08/08/2019 by Tristian Araujo MD at [facility] Right: Eye BAUSCH & LOMB 04/02/2024 [id number] / [id number] / [id number] Stent Axios [id number] - [id number] Implanted:Qty: 1 on 12/07/2022 by Tanya Morris MD at OR [facility] N/A: Abdomen [employer] : ENDOSCOPY [id number] 08/25/2023 [id number] / / [id number] Stent Bili Pigtail 7fr 100mm - [id number] Implanted:Qty: 1 on 12/07/2022 by Tanya Morris MD at OR [facility] N/A: Abdomen OLYMPUS [employer] [id number] 08/03/2025 PBD-1033-0 710 / / [id number] Stent Bili Pigtail 7fr 100mm - [id number] Implanted:Qty: 1 on 12/07/2022 by Tanya Morris MD at OR [facility] N/A: Abdomen [employer] [id number] 08/03/2025 PBD-1033-0 710 / / 2YK Power Port 8fr Sngl Lumen Plas - [id number] Implanted:Qty: 1 on 12/29/2022 by Landon Hickman DO at OR [facility] Right: Chest CR BARD : PERIPHERAL VASCULAR [id number] 12/02/2023 [id number] / / [id number] Hanarostent Noncover 10dm 10cm - [id number] Implanted:Qty: 1 on 02/19/2023 by Tanya Morris MD at OR [facility] [employer] [id number] 12/31/2024 SHS-10-100 -180 / / [id number] documented as of this encounter Advance Directives * Full Code (Latest Code Status on File) Date Activated Date Inactivated Comments 12/04/2022 10:10 PM 12/08/2022 3:55 PM This order re flects the patients wishes and were consensually agreed upon. Question Answer Comments Discussion of Advance Directives occurred with: Patient Care Teams Lead Machinist Relationship Specialty Start Date End Date Kristine Kan DO 293 [place] [address] PCP - General Family Medicine 03/16/24 documented as of this encounter
--- OUTSIDE RECORDS SUMMARY | 2024-06-06 23:36 | External Medical Summary ---
Author Name Unknown Address Unknown Organization [facility] [place] [address] Laboratory Report Ordering Provider Test Date Status TASHA MANN 04/25/2024 11:00:05 Final Observation Date Value Abnormality Reference (Units ) Status SYNC LEUKOCYTES IN BLOOD BY AUTOMATED COUNT 04/25/2024 11:00:05 7.32 4.00-10.80 (K/uL) Final Segs 04/25/2024 11:00:05 54.1 40.0-75.0 (%) Final Lymphs % 04/25/2024 11:00:05 36.6 18.0-42.0 (%) Final Monos 04/25/2024 11:00:05 6.7 1.0-11.0 (%) Final Eosinophils 04/25/2024 11:00:05 2.3 0.0-6.0 (%) Final Basos 04/25/2024 11:00:05 0.3 0.0-2.0 (%) Final Absolute Segs 04/25/2024 11:00:05 3.96 1.80-7.70 (K/uL) Final Lymphs, absolute 04/25/2024 11:00:05 2.68 1.00-4.80 (K/ul) Final Monos, Abs 04/25/2024 11:00:05 0.49 0.00-1.10 (K/uL) Final Eos, Abs 04/25/2024 11:00:05 0.17 0.00-0.70 (K/uL) Final Basos, Abs 04/25/2024 11:00:05 0.02 0.00-0.20 (K/uL) Final Performing Location [facility] [place] [address]
--- OUTSIDE RECORDS SUMMARY | 2024-06-06 23:36 | External Medical Summary ---
Author Name Unknown Address Unknown Organization [facility] [place] [address] Laboratory Report Ordering Provider Test Date Status TASHA MANN 04/25/2024 11:00:05 Final Observation Date Value Abnormality Reference (Units ) Status Magnesium 04/25/2024 11:00:05 1.8 1.5-2.6 (m g/dL) Final Performing Location [facility] [address]
--- OUTSIDE RECORDS SUMMARY | 2024-06-06 23:36 | External Medical Summary | Summary of Care ---
Author Name Unknown Organization [facility] Address [address] [place] [address] Phone [phone] Care Team Providers Care Cleat Blanker Name Role Phone Kristine Kan Primary Care Provider [phone] Reason for Visit * Reason Onset Date Comments Appointment 04/26/2024 Dr. Gross Encounter Details Date Type Department Care Team (Late st Contact Info) Description 04/26/2024 Telephone Hematology/Oncology [facility] [address] [place] [address] Services, Scheduling [address] [place] [address] Appointment (Dr. Gross) Allergies Active Allergy Reactions Criticality Noted Date Comments Latex Rash 06/28/2018 From a dressing Sulfamethoxazole Edema face/lips/tongue High 023 Trimethoprim Edema face/lips/tongue High 12/03/2022 documented as of this encounter (statuses as of 04/27/2024) Medications Medication Sig Dispensed Refills Start Date [...] Tablet Therapy Pack (Eliquis DVT/PE Starter Pack)Indications:Ac [place] 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 [...] mcgIndications:Vitamin B 12 deficiency 1000 mcg IM [id number] 09/02/2023 08/03/2024 Active Fluorouracil (5-Fu) 4,475 mg in NSS 138 mL infusion 4475 mg IV CONTINUOUS 04/26/2024 04/28/2024 Active documented as of this encounter (statuses as of 04/27/2024) Active Problems Problem Noted Date Diagnosed Date [...] as of this encounter (statuses as of 04/27/2024) Resolved Problems Problem Noted Date Diagnosed Date [...] as of this encounter (statuses as of 04/27/2024) Immunizations Name Administration Dates Next Due COVID-19 [...] call her to reschedule this. Thanks! Ginny: SUE on above. * Telephone Encounter [...] at 1pm. Please call her back at [phone] documented in this encounter Plan of Treatment Upcoming Encounters Date Type Department Care Team (Late st Contact Info) Description 05/02/2024 10:00 AM EDT Laboratory Laboratory [facility] [place] 200 [facility] [place] [phone] Lc Lopez [facility] [place] [address] 05/03/2024 2:00 PM EDT Hem/Onc Treatment Hematology/Oncology Treatment, [place] [address] [place] [phone] Jessica, Chair 11 Hem Onc [facility] 200 [facility] [place] [address] 05/05/2024 1:00 PM EDT Office Visit Family Practice [address], [place] 293 [facility], [place] [address] Kristine Kan DO 293 [facility], [place] [address] 05/10/2024 10:00 AM EDT Office Visit Hematology/Oncology [facility] [address] [place] [address] Hardik Gross MD 200 [facility] [place] [address] Health Maintenance Due Date Last Done Comments COVID-19 Vaccine ( season) 2024 11/08/2023, 07/10/2022, 01/06/2022, Additional history exists Influenza Vaccine (FLU shot) (#1) 2024 06/30/2023, 07/18/2022, 05/18/2021, Additional history exists Albumin/Creatinine Ratio 09/02/2024 09/02/2023, 08/0 10/2021 GFR 10/26/2024 04/25/2024, 07/0 05/2024, 04/04/2024, Additional history exists Depression Monitoring 11/09/2024 11/09/2023 CKD PHOS USE SMARTSET 83282 11/25/2024 11/25/2023, 0 12/05/2022 HbA1c 11/25/2024 11/25/2023, 11/04, 05/04/2022, Additional history exists CKD HGB USE SMARTSET 18142 04/25/202504/25, 04/25/2024, 04/10/2024, Additional history exists DXA [...] this encounter Medical Devices Implanted Type Area Dietitian Consultant Device Identifier Shelf Expiration Date Model / Serial / Lot Lens Intraoc 21.5 - [id number] - [id number] Implanted:Qty: 1 on 07/27/2019 by Tristian Araujo MD at OR [facility] Left: Eye BAUSCH & LOMB 04/02/2024 [id number] / [id number] / [id number] Lens Intraoc 21.5 - [id number] - [id number] Implanted:Qty: 1 on 08/08/2019 by Tristian Araujo MD at OR [facility] Right: Eye BAUSCH & LOMB 04/02/2024 [id number] / [id number] / [id number] Stent Axios [id number] - [id number] Implanted:Qty: 1 on 12/07/2022 by Tanya Morris MD at OR [facility] N/A: Abdomen [employer] : ENDOSCOPY [id number] 08/25/2023 [id number] / / [id number] Stent Bili Pigtail 7fr 100mm - [id number] Implanted:Qty: 1 on 12/07/2022 by Tanya Morris MD at OR [facility] N/A: Abdomen RxResults [employer]LOE [employer] [id number] 08/03/2025 PBD-1033-0 710 / / [id number] Stent Bili Pigtail 7fr 100mm - [id number] Implanted:Qty: 1 on 12/07/2022 by Tanya Morris MD at OR [facility] N/A: Abdomen RxResults [employer] [id number] 08/03/2025 PBD-1033-0 710 / / 2YK Power Port 8fr Sngl Lumen Plas - [id number] Implanted:Qty: 1 on 12/29/2022 by Landon Hickman DO at OR [facility] Right: Chest CR BARD : PERIPHERAL VASCULAR [id number] 12/02/2023 [id number] / / [id number] Hanarostent Noncover 10dm 10cm - [id number] Implanted:Qty: 1 on 02/19/2023 by Tanya Morris MD at OR [facility] [employer] [facility] [id number] 12/31/2024 [facility]-10-100 -180 / / [id number] documented as of this encounter Advance Directives * Full Code (Latest Code Status on File) Date Activated Date Inactivated Comments 12/04/2022 10:10 PM 12/08/2022 3:55 PM This order re flects the patients wishes and were consensually agreed upon. Question Answer Comments Discussion of Advance Directives occurred with: Patient Care Teams Cleat Blanker Relationship Specialty Start Date End Date Kristine Kan DO 293 [facility] [place] [address] PCP - General Family Medicine 03/16/24 documented as of this encounter
--- OUTSIDE RECORDS SUMMARY | 2024-06-06 23:36 | External Medical Summary | Summary of Care ---
Author Name Unknown Organization [facility] Address [address] [place] [address] Phone [phone] Care Team Providers Care Medical Administrator Name Role Phone Kristine Kan Primary Care Provider Reason for Visit * Reason Comments Procedure Port flush/pump disc onnect * Episode Based Medications (Routine) - Authorized Specialty Diagnoses / Procedures Referred By Contac t Referred To Contact Diagnoses Carcinoma of gallbladder (HCC) Encounter for antineoplastic chemotherapy Procedures [place] LEUCOVORIN CALCIUM INJECTION [place] PALONOSETRON HCL [place] FLUOROURACIL INJECTION [place] OXALIPLATIN Hardik Gross MD 200 [facility] [place] [address] Anc Hem/Onc [address] [address] Referral ID Status Reason Start Date Expiration Date V isits Requested Visits Authorized [id number] Authorized 12/14/2023 12/13/2024 999 999 Encounter Details Date Type Department Care Team (Latest Contact Info) Description 04/14/2024 1:00 PM EDT Immunization/ Injection Hematology/Oncology Treatment, [address] [address] Jessica, Chair 10 Hem On[address] [place] [address] Carcinoma of gallbladder (HCC)*; Encounter for antineoplastic [...] 05, 2024. 60 Tablet 5 04/05/2024 Active Hospital, Clinic, or Other Facility Administered Medication Ordered Dose Route Frequency Start Date End Date Status vitamin b-12 (Cyanocobalamin) inj 1,000 mcgIndications:Vitamin B 12 deficiency 1000 mcg IM [id number] 09/02/2023 08/03/2024 Active documented as of this [...] Description 04/25/2024 11:00 AM EDT Laboratory Laboratory [facility] [place] 200 [facility] [place], [place] [phone] Jessica, Lab [facility] 200 [facility] [place], [place] [address] 04/26/2024 1:00 PM EDT [facility] [address] [facility] [address] [place], [place] [phone] Jessica, Chair 4 Hem Onc [facility] 200 [facility] [place], [place] [address] 05/05/2024 1:00 PM EDT Office Visit Family Practice [address] [facility] 293 [place] [address] Kristine Kan DO 293 [place] [address] 05/10/2024 10:00 AM EDT Office Visit Hematology/Oncology [facility] 200 [facility] [place], [place] [phone] Hardik Gross MD 200 [facility] [place], [place] [address] Health Maintenance Due Date Last Done Comments COVID-19 Vaccine ( season) 2024 11/08/2023, 07/10/2022, 01/06/2022, Additional history exists Influenza Vaccine (FLU shot) (#1) 2024 06/30/2023, 07/18/2022, 05/18/2021, Additional history exists Albumin/Creatinine Ratio 09/02/2024 09/02/2023, 08/0 10/2021 GFR 10/11/2024 04/10/2024, 070 11/2023, 03/20/2024, Additional history exists Depression Monitoring 11/09/2024 11/09/2023 CKD PHOS USE SMARTSET 70142 11/25/2024 11/25/2023, 0 12/05/2022 HbA1c 11/25/2024 11/25/2023, 11/04, 05/04/2022, Additional history exists CKD HGB USE SMARTSET 87983 04/10/202504/10, 04/10/2024, 04/04/2024, Additional history exists DXA [...] this encounter Medical Devices Implanted Type Area Rn Otolaryngology Device Identifier Shelf Expiration Date Model / Serial / Lot Lens Intraoc 21.5 - [id number] - [id number] Implanted:Qty: 1 on 07/27/2019 by Tristian Araujo MD at OR [facility] Left: Eye BAUSCH & LOMB 04/02/2024 [id number] / [id number] / [id number] Lens Intraoc 21.5 - [id number] - [id number] Implanted:Qty: 1 on 08/08/2019 by Tristian Araujo MD at OR [facility] Right: Eye BAUSCH & LOMB 04/02/2024 [id number] / [id number] / [id number] Stent Axios [id number] - [id number] Implanted:Qty: 1 on 12/07/2022 by Tanya Morris MD at OR [facility] N/A: Abdomen [employer] : ENDOSCOPY [id number] 08/25/2023 [id number] / / [id number] Stent Bili Pigtail 7fr 100mm - [id number] Implanted:Qty: 1 on 12/07/2022 by Tanya Morris MD at OR [facility] N/A: Abdomen [employer] [id number] 08/03/2025 PBD-1033-0 710 / / [id number] Stent Bili Pigtail 7fr 100mm - [id number] Implanted:Qty: 1 on 12/07/2022 by Tanya Morris MD at OR [facility] N/A: Abdomen [employer] [id number] 08/03/2025 PBD-1033-0 710 / / 2YK Power Port 8fr Sngl Lumen Plas - [id number] Implanted:Qty: 1 on 12/29/2022 by Landon Hickman DO at OR [facility] Right: Chest CR BARD : PERIPHERAL VASCULAR [id number] 12/02/2023 [id number] / / [id number] Hanarostent Noncover 10dm 10cm - [id number] Implanted:Qty: 1 on 02/19/2023 by Tanya Morris MD at OR [facility] [employer] [id number] 12/31/2024 SHS-10-100 -180 / / [id number] documented as of this encounter Visit Diagnoses [...] Flush, Starting on Wed04/14/24 at 1311, Until 04/15/24 at 1310, For 24 hours, Do not flush if lock, PICC, or central line not in place; IV infusing or unable to flush. Given 04/14/2024 1:16 PM EDT 500 Units sodium chloride 0.9 % flush central line 10 mL 10 mL, IV Push, PRN Other, IV Flush, Starting on Wed04/14/24 at 1311, Until 04/15/24 at 1310, For 24 hours, Do not flush if [...] Advance Directives occurred with: Patient Care Teams Medical Administrator Relationship Specialty Start Date End Date Kristine Kan DO [address] [facility] [place] [address] PCP - General Family Medicine 03/16/24 documented as of this encounter
--- OUTSIDE RECORDS SUMMARY | 2024-06-06 23:37 | External Medical Summary | Summary of Care ---
Author Name Unknown Organization [facility] Address [address] [place] [address] Phone [phone] Care Team Providers Care Host Name Role Phone ChrisblancaKristine schultz Primary Care Provider + [phone] Reason for Visit * Reason Comments Procedure Pump disconnect * Episode Based Medications (Routine) - Authorized Specialty Diagnoses / Procedures Referred By Marcela johansen Referred To Contact Diagnoses Carcinoma of gallbladder (HCC) Encounter for antineoplastic chemotherapy Procedures [place] LEUCOVORIN CALCIUM INJECTION [place] PALONOSETRON HCL [place] FLUOROURACIL INJECTION [place] OXALIPLATIN Hardik Gross MD 200 [facility] [place] [address] Anc Hem/Onc [address] [address] Referral ID Status Reason Start Date Expiration Date V isits Requested Visits Authorized [id number] Authorized 12/14/2023 12/13/2024 999 999 Encounter Details Date Type Department Care Team (Latest Contact Info) Description 03/09/2024 12:15 PM EDT Immunization/ Injection Hematology/Oncology Treatment, [address] [phone] Nurse, Med 200 [facility] [place] [address] Carcinoma of gallbladder (HCC)*; Encounter for antineoplastic chemotherapy Allergies Active Allergy Reactions Criticality Noted Date Comments Latex Rash 06/28/2018 From a dressing Sulfamethoxazole Edema face/lips/tongue High 023 Trimethoprim Edema face/lips/tongue High 12/03/2022 documented as of this encounter (statuses as of 04/13/2024) Medications Medication Sig Dispensed Refills Start Date [...] 12/16/2023 Active Atenolol 25 MG Oral Tablet (Tenormin)Indicat ions:HTN, goal below 140/90 Take 1 Tablet by mouth in the morning. 90 Tablet 3 12/29/2023 Active Artificial Tears 0.1-0.3 % Ophthalmic Solution [...] 05, 2024. 60 Tablet 5 04/05/2024 Active Nirmatrelvir&Walker navir 150/100 10 x 150 MG & 10 x 100MG Oral Tablet Therapy Pack (Paxlovid (150/100)) Take 1 pink tablet of Nirmatrelvir and 1 white tablet of Ritonavir two times a day by mouth. 20 Tablet 08/19/2023 Discontinue d(Medicatio n List Clean Up) Hospital, Clinic, or Other Facility Administered Medication Ordered Dose Route Frequency Start Date End Date Status vitamin b-12 (Cyanocobalamin) inj 1,000 mcgIndications:Vitam in B 12 deficiency 1000 mcg IM [id number] 09/02/2023 08/03/2024 Active Fluorouracil (5-Fu) 4,475 mg in NSS 138 mL infusion 4475 mg IV CONTINUOUS 03/06/2024 03/08/2024 Discontinued documented as of this encounter (statuses as of 04/13/2024) Active Problems Problem Noted Date Diagnosed Date FERDINAND (generalized anxiety disorder) 11/09/2023 Hypertensive kidney [...] as of this encounter (statuses as of 04/13/2024) Resolved Problems Problem Noted Date Diagnosed Date [...] as of this encounter (statuses as of 04/13/2024) Immunizations Name Administration Dates Next Due COVID-19 [...] Nursing Notes * Karey Argueta RN - 03/09/2024 12:46 PM EDT Chair 9 Pt presents for 5-FU pump disconnect. Pt without complaints. Denies N/V/D. Pt & asking questions about treatment plan with new diagnosis of DVTs. Message sent to Valdo Damon RN to discuss with patient. 5-FU infusion complete. Port with positive blood return. Flushed with 20 mL NS & 5 mL U-100 Heparin. Pt discharged in stable condition. documented in this encounter Plan of Treatment Upcoming Encounters Date Type Department Care Team (Late st Contact Info) Description 04/14/2024 1:00 PM EDT Immunization/Injecti on Hematology/Oncology Treatment, [place] [facility] [phone] Jessica, Chair 10 Hem On[address] [place] [address] 04/25/2024 11:00 AM EDT Laboratory Laboratory [facility] [address] [place] [phone] Jessica, Lab [address] [place] [address] 04/26/2024 1:00 PM EDT Hem/Onc Treatment Hematology/Oncology Treatment, [place] [facility] [phone] Jessica, Chair 4 Hem Onc [address] [place] [address] 05/05/2024 1:00 PM EDT Office Visit Family Practice [address], [place] 293 [place] [address] Kristine Kan DO 293 [facility] [place] [address] 05/10/2024 10:00 AM EDT Office Visit Hematology/Oncology [facility] [address] [place] [phone] Hardik Gross MD 200 [facility] [place] [address] Health Maintenance Due Date Last Done Comments COVID-19 Vaccine ( season) 2024 11/08/2023, 07/10/2022, 01/06/2022, Additional history exists Influenza Vaccine (FLU shot) (#1) 2024 06/30/2023, 07/18/2022, 05/18/2021, Additional history exists Albumin/Creatinine Ratio 09/02/2024 09/02/2023, 08/0 10/2021 GFR 10/11/2024 04/10/2024, 07/0 11/2023, 03/20/2024, Additional history exists Depression Monitoring 11/09/2024 11/09/2023 CKD PHOS USE SMARTSET 72246 11/25/2024 11/25/2023, 0 12/05/2022 HbA1c 11/25/2024 11/25/2023, 11/04, 05/04/2022, Additional history exists CKD HGB USE SMARTSET 54631 04/10/202504/10, 04/10/2024, 04/04/2024, Additional history exists DXA [...] this encounter Medical Devices Implanted Type Area Trash Collector Device Identifier Shelf Expiration Date Model / Serial / Lot Lens Intraoc 21.5 - [id number] - [id number] Implanted:Qty: 1 on 07/27/2019 by Tristian Araujo MD at OR [facility] Left: Eye BAUSCH & LOMB 04/02/2024 [id number] / [id number] / [id number] Lens Intraoc 21.5 - [id number] - [id number] Implanted:Qty: 1 on 08/08/2019 by Tristian Araujo MD at OR [facility] Right: Eye BAUSCH & LOMB 04/02/2024 [id number] / [id number] / [id number] Stent Axios [id number] - [id number] Implanted:Qty: 1 on 12/07/2022 by Tanya Morris MD at OR [facility] N/A: Abdomen [employer] : ENDOSCOPY [id number] 08/25/2023 [id number] / / [id number] Stent Bili Pigtail 7fr 100mm - [id number] Implanted:Qty: 1 on 12/07/2022 by Tanya Morris MD at OR [facility] N/A: Abdomen [employer] [id number] 08/03/2025 PBD-1033-0 710 / / [id number] Stent Bili Pigtail 7fr 100mm - [id number] Implanted:Qty: 1 on 12/07/2022 by Tanya Morris MD at OR [facility] N/A: Abdomen [employer] [id number] 08/03/2025 PBD-1033-0 710 / / 2YK Power Port 8fr Sngl Lumen Plas - [id number] Implanted:Qty: 1 on 12/29/2022 by Landon Hickman DO at OR [facility] Right: Chest CR BARD : PERIPHERAL VASCULAR [id number] 12/02/2023 [id number] / / [id number] Hanarostent Noncover 10dm 10cm - [id number] Implanted:Qty: 1 on 02/19/2023 by Tanya Morris MD at OR [facility] [employer] [id number] 12/31/2024 SHS-10-100 -180 / / [id number] documented as of this encounter Visit Diagnoses [...] PRN Other, IV Flush, Starting on Karla 03/09/24 at 1216, Until Karla 03/09/24 at 1653, For 24 hours, Do not flush if lock, PICC, or central line not in place; IV infusing or unable to flush. Given 03/09/2024 12:29 PM EDT 500 Units sodium chloride 0.9 % flush central line 10 mL 10 mL, IV Push, PRN Other, IV Flush, Starting on Karla 03/09/24 at 1216, Until Karla 03/09/24 at 1653, For 24 hours, Do not flush if lock, PICC, or central line not in place; IV infusing or unable to flush. Given 03/09/2024 12:29 PM EDT 10 mL documented in this encounter Advance Directives * Full Code (Latest Code Status on File) Date Activated Date Inactivated Comments 12/04/2022 10:10 PM 12/08/2022 3:55 PM This order re flects the patients wishes and were consensually agreed upon. Question Answer Comments Discussion of Advance Directives occurred with: Patient Care Teams Host Relationship Specialty Start Date End Date Kristine Kan DO PCP - General Family Medicine 12/18/22 03/15/24 documented as of this encounter
--- OUTSIDE RECORDS SUMMARY | 2024-06-06 23:37 | External Medical Summary | Summary of Care ---
Author Name Unknown Organization [facility] Address [address] [place] [address] Phone [phone] Care Team Providers Care Cargo Services Coordinator Name Role Phone Kristine Kan Primary Care Provider + [phone] Reason for Visit * Reason Comments Chemotherapy Leucovorin, 5fu Medication Administration Vitamin B12 * Episode Based Medications (Routine) - Authorized Specialty Diagnoses / Procedures Referred By Contac t Referred To Contact Diagnoses Carcinoma of gallbladder (HCC) Encounter for antineoplastic chemotherapy Procedures [place] LEUCOVORIN CALCIUM INJECTION [place] PALONOSETRON HCL [place] FLUOROURACIL INJECTION [place] OXALIPLATIN Hardik Gross MD [address] [place] [address] [place] [address] Anc Hem/Onc [address] [address] Referral ID Status Reason Start Date Expiration Date V isits Requested Visits Authorized [id number] Authorized 12/14/2023 12/13/2024 999 999 Encounter Details Date Type Department Care Team (Latest Contact Info) Description 04/12/2024 2:00 PM EDT Hem/Onc Treatment Hematology/Oncolog y Treatment, [address] [phone] Jessica, Chair 4 Hem On[address] [place] [address] Carcinoma of gallbladder (HCC)*; Encounter for antineoplastic chemotherapy; B12 deficiency Allergies Active Allergy Reactions Criticality Noted Date Comments Latex Rash 06/28/2018 From a dressing Sulfamethoxazole Edema face/lips/tongue High 023 Trimethoprim Edema face/lips/tongue High 12/03/2022 documented as of this encounter (statuses as of 04/12/2024) Medications Medication Sig Dispensed Refills Start Date [...] Tablet Therapy Pack (Eliquis DVT/PE Starter Pack)Indications:Ac [place] 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 [...] mcgIndications:Vitamin B 12 deficiency 1000 mcg IM [id number] 09/02/2023 08/03/2024 Active documented as of this encounter (statuses as of 04/12/2024) Active Problems Problem Noted Date Diagnosed Date [...] as of this encounter (statuses as of 04/12/2024) Resolved Problems Problem Noted Date Diagnosed Date [...] as of this encounter (statuses as of 04/12/2024) Immunizations Name Administration Dates Next Due COVID-19 [...] 1:00 PM EDT Immunization/Injecti on Hematology/Oncology Treatment, [address] [place] [phone] Park, Chair 10 Hem Onc [place] [address] [place] [address] 04/25/2024 11:00 AM EDT Laboratory Laboratory [facility] [place] [address] [place] [phone] Jessica, Lab [place] [address] [place] [address] 04/26/2024 1:00 PM EDT Hem/Onc Treatment Hematology/Oncology Treatment, [address] [place] [phone] Jessica, Chair 4 Hem Onc [facility] [address] [place] [address] 05/05/2024 1:00 PM EDT Office Visit Family Practice [address] [place] [address] 293 [facility], [place] [address] Krsitine Kan DO 293 [facility], [place] [address] 05/10/2024 10:00 AM EDT Office Visit Hematology/Oncology [facility] 200 [facility] [place], [place] [phone] Hardik Gross MD 200 [facility] [place] [address] Health Maintenance Due Date Last Done Comments COVID-19 Vaccine ( season) 2024 11/08/2023, 07/10/2022, 01/06/2022, Additional history exists Influenza Vaccine (FLU shot) (#1) 2024 06/30/2023, 07/18/2022, 05/18/2021, Additional history exists Albumin/Creatinine Ratio 09/02/2024 09/02/2023, 08/0 10/2021 GFR 10/11/2024 04/10/2024, 07/0 11/2023, 03/20/2024, Additional history exists Depression Monitoring 11/09/2024 11/09/2023 CKD PHOS USE SMARTSET 93829 11/25/2024 11/25/2023, 0 12/05/2022 HbA1c 11/25/2024 11/25/2023, 11/04, 05/04/2022, Additional history exists CKD HGB USE SMARTSET 85157 04/10/202504/10, 04/10/2024, 04/04/2024, Additional history exists DXA [...] this encounter Medical Devices Implanted Type Area Nurse Informatics Educator Device Identifier Shelf Expiration Date Model / Serial / Lot Lens Intraoc 21.5 - [id number] - [id number] Implanted:Qty: 1 on 07/27/2019 by Tristian Araujo MD at OR [facility] Left: Eye BAUSCH & LOMB 04/02/2024 [id number] / [id number] / [id number] Lens Intraoc 21.5 - [id number] - [id number] Implanted:Qty: 1 on 08/08/2019 by Tristian Araujo MD at OR [facility] Right: Eye BAUSCH & LOMB 04/02/2024 [id number] / [id number] / [id number] Stent Axios [id number] - [id number] Implanted:Qty: 1 on 12/07/2022 by Tanya Morris MD at OR [facility] N/A: Abdomen [employer] : ENDOSCOPY [id number] 08/25/2023 [id number] / / [id number] Stent Bili Pigtail 7fr 100mm - [id number] Implanted:Qty: 1 on 12/07/2022 by Tanya Morris MD at OR [facility] N/A: Abdomen [employer] [id number] 08/03/2025 PBD-1033-0 710 / / 2YK Stent Bili Pigtail 7fr 100mm - [id number] Implanted:Qty: 1 on 12/07/2022 by Tanya Morris MD at OR [facility] N/A: Abdomen Hooja [id number] 08/03/2025 PBD-1033-0 710 / / 2YK Power Port 8fr Sngl Lumen Plas - [id number] Implanted:Qty: 1 on 12/29/2022 by Landon Hickman DO at OR [facility] Right: Chest CR BARD : PERIPHERAL VASCULAR [id number] 12/02/2023 [id number] / / [id number] Hanarostent Noncover 10dm 10cm - [id number] Implanted:Qty: 1 on 02/19/2023 by Tanya Morris MD at OR [facility] Hooja [id number] 12/31/2024 [facility]-10-100 -180 / / [id number] documented as of this encounter Visit Diagnoses [...] ONCE PRN Other, Hypersensitivity Reaction, Starting on Wed04/12/24 at 1404, Until Karla 04/13/24 at 1403, For 24 hours EPINEPHrine 1 MG/ML inj 0.3 mg 0.3 mg, Intramuscular, ONCE PRN Other, Hypersensitivity Reaction or Anaphylaxis, Starting on Wed04/12/24 at 1404, Until Karla 04/13/24 at 1403, For 24 hours hEParin 100 UNIT/ML Lock Flush inj 500 Units 500 Units (5 mL), IV Lock, PRN Other, IV Flush, Starting on Wed04/12/24 at 1404, Until Karla 04/13/24 at 1403, For 24 hours, Do not flush if lock, PICC, or central line not in place; IV infusing or unable to flush. Hydrocortisone Sod Suc (PF) (Solu-Cortef) inj 100 mg 100 mg, IV Push, ONCE PRN Other, Hypersensitivity Reaction, Starting on Wed04/12/24 at 1404, Until Karla 04/13/24 at 1403, For 24 hours LORAzepam (Ativan) tab 0.5 mg 0.5 mg, Oral, ONCE PRN Anxiety, Nausea, Starting on Wed04/12/24 at 0830, Until Discontinued NSS infusion FOR HYDRATION Intravenous, at 50 mL/hr Administer over 10 Hours, PRN, Starting on Wed04/12/24 at 1404, Until Discontinued Start Infusion 04/12/2024 2:18 PM EDT 500 mL 50 mL/hr oxygen GAS Inhalation, OXYGEN, First dose on Wed04/12/24 at 1600, Until Discontinued, Device/Managed by: Low [...] Flush, Starting on Wed04/12/24 at 1404, Until Karla 04/13/24 at 1403, For 24 hours, Do not flush if lock, PICC, or central line not in place; IV infusing or unable to flush. Given 04/12/2024 2:56 PM EDT 10 mL Inactive Administered Medications - up to 3 [...] 2:19 PM EDT 750 mg 510 mL/hr ondansetron (Zofran) tab 8 mg 8 mg, Oral, ONCE, On Wed04/12/24 at 1445, For 1 dose Given 04/12/2024 2:18 PM EDT 8 mg vitamin b-12 (Cyanocobalamin) [...] Advance Directives occurred with: Patient Care Teams Cargo Services Coordinator Relationship Specialty Start Date End Date Kristine Kan DO 293 [facility] [place] [address] PCP - General Family Medicine 03/16/24 documented as of this encounter
--- OUTSIDE RECORDS SUMMARY | 2024-06-06 23:37 | External Medical Summary | Summary of Care ---
Author Name Unknown Organization [facility] Address [address] [place] [address] Phone [phone] Care Team Providers Care Emergency Doctor Name Role Phone Kristine Kan Primary Care Provider [phone] Reason for Visit * Reason Comments Chemotherapy FOLFOX C5,D1 * Episode Based Medications (Routine) - Authorized Specialty Diagnoses / Procedures Referred By Marcela johansen Referred To Contact Diagnoses Carcinoma of gallbladder (HCC) Encounter for antineoplastic chemotherapy Procedures MD LEUCOVORIN CALCIUM INJECTION MD PALONOSETRON HCL MD FLUOROURACIL INJECTION MD OXALIPLATIN Hardik Gross MD [address] [facility] [place] [address] Anc Hem/Onc [address] [address] Referral ID Status Reason Start Date Expiration Date V isits Requested Visits Authorized [id number] Authorized 12/14/2023 12/13/2024 999 999 Encounter Details Date Type Department Care Team (Latest Contact Info) Description 03/07/2024 1:00 PM EDT Hem/Onc Treatment Hematology/Oncolog y Treatment, [address] [address] Jessica, Chair 3 Hem Onc [address] [place] [address] Carcinoma of gallbladder (HCC)*; Encounter for antineoplastic [...] mouth daily 300 mL 3 01/14/2024 Active Nirmatrelvir&Walker navir 150/100 10 x 150 [...] mcgIndications:Vitamin B 12 deficiency 1000 mcg IM [id number] 09/02/2023 08/03/2024 Active documented as of this [...] 06/02/2017:Stage IA(T1c, N0, M0) - Signed by Rigboerto Gonzalez MD on 06/02/2017 Hypothyroidism 07/28/2011 HTN, [...] Sign Reading Time Taken Comments Blood Pressure 134/85 03/07/2024 1:15 PM EDT Pulse 78 03/07/2024 1:15 PM EDT Temperature - - Respiratory Rate 16 03/07/2024 1:15 PM EDT Oxygen Saturation 97% 03/07/2024 1:15 PM EDT Inhaled Oxygen Concentration - - Weight - - Height - - Body Mass Index - - documented in this encounter Functional Status Functional [...] Nursing Notes * Gabriela Patino RN - 03/07/2024 3:02 PM EDT Safety and Risk for Injury Patient will remain free from injury. Ensure appropriate safety devices are available. Provide and maintain safe environment. Goals: Patient will remain free from injury. [...] condition and denied any further needs. * Jose Pineda RN - 03/07/2024 1:40 PM EDT Chair 8. Pt labs reviewed with Dr. Yamile mendenhall for treatment. Per Dr. Gross, Oxaliplatin to be discontinued from current treatment plan going forward. Pt is aware of this change. VAD accessed without issues, positive for blood return. Fluids infusing per orders. Safety and Risk for Injury Patient will remain free from injury. Ensure appropriate safety devices are available. Provide and maintain safe environment. Chemotherapy/Immunotherapy agents: Leucovorin/5FU Consent for chemotherapy drug treatment complete, dated, and signed? yes, date - 12/14/23 Treatment lab parameters met? Yes Has treatment weight changed > than 10%? No Treatment preauthorized? Yes VITALS Filed Vitals: 03/07/24 1315 BP: 134/85 Pulse: 78 Resp: 16 SpO2: 97% Urine protein: N/A Patient education completed for treatment? Yes Blood transfusion consent signed and complete? NA Return appointment scheduled? Yes Patient had provider visit today? Yes - Ok to release order and treat per provider Functional Status: Functional status at today's visit: [...] symptoms or adverse side effects during treatment. * Muriel Damon RN - 03/06/2024 10:32 AM EDT Creat 1.6, stable. Per za Stone for treatment. documented in this encounter Plan of Treatment Upcoming Encounters Date Type Department Care Team (Late st Contact Info) Description 04/14/2024 1:00 PM EDT Immunization/Injecti on Hematology/Oncology Treatment, [place] [address] [place] [phone] Jessica, Chair 10 Hem Onc [facility] [address] [facility] [place], [place] [address] 04/25/2024 11:00 AM EDT Laboratory Laboratory [facility] [address] [place], [place] [phone] Jessica, Lab [facility] [address] [facility] [place], [place] [address] 04/26/2024 1:00 PM EDT Hem/Onc Treatment [facility]/Oncology [facility] [address] [facility], [place] [phone] Jessica, Chair 4 Hem Onc [facility] [address] [facility] [place], [place] [address] 05/05/2024 1:00 PM EDT Office Visit Family Practice [address] [place] [address] 293 [place] [address] Kristine Kan DO 293 [place] [address] 05/10/2024 10:00 AM EDT Office Visit Hematology/Oncology [facility] [address] [facility] [place], [place] [phone] Hardik Gross MD [address] [facility] [place], [place] [address] Health Maintenance Due Date Last Done Comments COVID-19 Vaccine ( season) 2024 11/08/2023, 07/10/2022, 01/06/2022, Additional history exists Influenza Vaccine (FLU shot) (#1) 2024 06/30/2023, 07/18/2022, 05/18/2021, Additional history exists Albumin/Creatinine Ratio 09/02/2024 09/02/2023, 08/0 10/2021 GFR 10/11/2024 04/10/2024, 07/0 11/2023, 03/20/2024, Additional history exists Depression Monitoring 11/09/2024 11/09/2023 CKD PHOS USE SMARTSET 91290 11/25/2024 11/25/2023, 0 12/05/2022 HbA1c 11/25/2024 11/25/2023, 11/04, 05/04/2022, Additional history exists CKD HGB USE SMARTSET 56362 04/10/202504/10, 04/10/2024, 04/04/2024, Additional history exists DXA [...] this encounter Medical Devices Implanted Type Area Clinic Receptionist Device Identifier Shelf Expiration Date Model / Serial / Lot Lens Intraoc 21.5 - [id number] - [id number] Implanted:Qty: 1 on 07/27/2019 by Tristian Araujo MD at OR [facility] Left: Eye BAUSCH & LOMB 04/02/2024 [id number] / [id number] / [id number] Lens Intraoc 21.5 - [id number] - [id number] Implanted:Qty: 1 on 08/08/2019 by Tristian Araujo MD at OR [facility] Right: Eye BAUSCH & LOMB 04/02/2024 [id number] / [id number] / [id number] Stent Axios 80qmo12gm - [id number] Implanted:Qty: 1 on 12/07/2022 by Tanya Morris MD at OR [facility] N/A: Abdomen [employer] : ENDOSCOPY [id number] 08/25/2023 [id number] / / [id number] Stent Bili Pigtail 7fr 100mm - [id number] Implanted:Qty: 1 on 12/07/2022 by Tanya Morris MD at OR [facility] N/A: Abdomen [employer] [id number] 08/03/2025 PBD-1033-0 710 / / [id number] Stent Bili Pigtail 7fr 100mm - [id number] Implanted:Qty: 1 on 12/07/2022 by Tanya Morris MD at OR [facility] N/A: Abdomen [employer] [id number] 08/03/2025 PBD-1033-0 710 / / 2YK Power Port 8fr Sngl Lumen Plas - [id number] Implanted:Qty: 1 on 12/29/2022 by Landon Hickman DO at OR [facility] Right: Chest CR BARD : PERIPHERAL VASCULAR [id number] 12/02/2023 [id number] / / [id number] Hanarostent Noncover 10dm 10cm - [id number] Implanted:Qty: 1 on 02/19/2023 by Tanya Morris MD at OR [facility] [employer] [id number] 12/31/2024 SHS-10-100 -180 / / [id number] documented as of this encounter Visit Diagnoses Diagnosis Carcinoma of gallbladder (HCC)- Primary Malignant neoplasm of gallbladder Encounter for antineoplastic chemotherapy documented in this encounter Administered Medications Inactive Administered Medications - up to 3 most recent administrations Medication Order MAR Action Action Date Dose Rate Site D5W IV solution Intravenous, at 50 mL/hr, PRN, Starting on Wed03/07/24 at 0830, Until Wed03/07/24 at 1909 Start Infusion 03/07/2024 1:25 PM EDT 50 mL/hr Fluorouracil (5-Fu) 4,475 mg for Home Infusion 4,475 mg (rounded from 4,464 mg = 2,400 mg/m2 1.86 m2 Treatment Plan BSA from Recorded weight), Intravenous, Administer over 46 Hours, Home Infusion Pharmacy to specify base solution and volume., ONCE, 1 dose, On Wed03/07/24 at 1315 Start Infusion 03/07/2024 2:07 PM EDT 4,475 mg 3 mL/hr Fluorouracil (5-Fu) inj 750 mg 750 mg (rounded from 744 mg = 400 mg/m2 1.86 m2 Treatment Plan BSA from Recorded weight), IV Push, ONCE, 1 dose, On Wed03/07/24 at 1345 Given 03/07/2024 2:04 PM EDT 750 mg leucovorin calcium 750 mg in D5W 250 mL INFUSION 750 mg (rounded from 744 mg = 400 mg/m2 1.86 m2 Treatment Plan BSA from Recorded weight), IV Piggyback, ONCE, 1 dose, On Wed03/07/24 at 1345, Administer over 30 Minutes, Before 5-FU Start Infusion 03/07/2024 1:28 PM EDT 750 mg 510 mL/hr ondansetron (Zofran) tab 8 mg 8 mg, Oral, ONCE, On Wed03/07/24 at 1345, For 1 dose Given 03/07/2024 1:26 PM EDT 8 mg sodium chloride 0.9 % flush central line 10 mL 10 mL, IV Push, PRN Other, IV Flush, Starting on Wed03/07/24 at 1314, Until Wed03/07/24 at 1909, For 24 hours, Do not flush if lock, PICC, or central line not in place; IV infusing or unable to flush. Given 03/07/2024 2:04 PM EDT 10 mL documented in this encounter Advance Directives * Full Code (Latest Code Status on File) Date Activated Date Inactivated Comments 12/04/2022 10:10 PM 12/08/2022 3:55 PM This order re flects the patients wishes and were consensually agreed upon. Question Answer Comments Discussion of Advance Directives occurred with: Patient Care Teams Emergency Doctor Relationship Specialty Start Date End Date Kristine Kan DO PCP - General Family Medicine 12/18/22 03/15/24 documented as of this encounter
--- OUTSIDE RECORDS SUMMARY | 2024-06-06 23:37 | External Medical Summary | Summary of Care ---
Author Name Unknown Organization [facility] Address [address] [place] [address] Phone [phone] Care Team Providers Care Safe And Vault Mechanic Name Role Phone Kristine Kan Primary Care Provider [phone] Reason for Visit * Reason Comments Chemotherapy FOLFOX C5,D1 * Episode Based Medications (Routine) - Authorized Specialty Diagnoses / Procedures Referred By Marcela johansen Referred To Contact Diagnoses Carcinoma of gallbladder (HCC) Encounter for antineoplastic chemotherapy Procedures RI LEUCOVORIN CALCIUM INJECTION RI PALONOSETRON HCL RI FLUOROURACIL INJECTION RI OXALIPLATIN Hradik Gross MD [address] [facility] [place] [address] Anc Hem/Onc [address] [address] Referral ID Status Reason Start Date Expiration Date V isits Requested Visits Authorized [id number] Authorized 12/14/2023 12/13/2024 999 999 Encounter Details Date Type Department Care Team (Latest Contact Info) Description 03/07/2024 1:00 PM EDT Hem/Onc Treatment Hematology/Oncolog y Treatment, [address] [address] Jessica, Chair 3 Hem Onc [address] [place] [address] Carcinoma of gallbladder (HCC)*; Encounter for antineoplastic [...] mcgIndications:Vitamin B 12 deficiency 1000 mcg IM [id number] 09/02/2023 08/03/2024 Active documented as of this [...] 1:00 PM EDT Immunization/Injecti on Hematology/Oncology Treatment, [place] 200 [place] [phone] Jessica, Chair 10 Hem Onc [facility] [address] [facility] [place], [place] [address] 04/25/2024 11:00 AM EDT Laboratory Laboratory [facility] [address] [place], [place] [phone] Jessica, Lab [facility] [address] [facility] [place], [place] [address] 04/26/2024 1:00 PM EDT Hem/Onc Treatment [facility]/Oncology [facility] [address] [facility], [place] [phone] Jessica, Chair 4 Hem Onc [facility] [address] [facility] [place], [place] [address] 05/05/2024 1:00 PM EDT Office Visit Family Practice [address] [place] [address] 293 [place] [address] Kristine Kan DO 293 [place] [address] 05/10/2024 10:00 AM EDT Office Visit Hematology/Oncology [facility] [address] [facility] [place], [place] [phone] Hardik Gross MD [address] [facility] [place], [place] [address] Health Maintenance Due Date Last Done Comments COVID-19 Vaccine ( season) 2024 11/08/2023, 07/10/2022, 01/06/2022, Additional history exists Influenza Vaccine (FLU shot) (#1) 2024 06/30/2023, 07/18/2022, 05/18/2021, Additional history exists Albumin/Creatinine Ratio 09/02/2024 09/02/2023, 08/0 10/2021 GFR 10/11/2024 04/10/2024, 07/0 11/2023, 03/20/2024, Additional history exists Depression Monitoring 11/09/2024 11/09/2023 CKD PHOS USE SMARTSET 11646 11/25/2024 11/25/2023, 0 12/05/2022 HbA1c 11/25/2024 11/25/2023, 11/04, 05/04/2022, Additional history exists CKD HGB USE SMARTSET 93102 04/10/202504/10, 04/10/2024, 04/04/2024, Additional history exists DXA [...] this encounter Medical Devices Implanted Type Area Cleaning Porter Device Identifier Shelf Expiration Date Model / Serial / Lot Lens Intraoc 21.5 - [id number] - [id number] Implanted:Qty: 1 on 07/27/2019 by Tristian Araujo MD at OR [facility] Left: Eye BAUSCH & LOMB 04/02/2024 [id number] / [id number] / [id number] Lens Intraoc 21.5 - [id number] - [id number] Implanted:Qty: 1 on 08/08/2019 by Tristian Araujo MD at OR [facility] Right: Eye BAUSCH & LOMB 04/02/2024 [id number] / [id number] / [id number] Stent Axios [id number] - [id number] Implanted:Qty: 1 on 12/07/2022 by Tanya Morris MD at OR [facility] N/A: Abdomen [employer] : ENDOSCOPY [id number] 08/25/2023 [id number] / / [id number] Stent Bili Pigtail 7fr 100mm - [id number] Implanted:Qty: 1 on 12/07/2022 by Tanya Morris MD at OR [facility] N/A: Abdomen [employer] [id number] 08/03/2025 PBD-1033-0 710 / / 2YK Stent Bili Pigtail 7fr 100mm - [id number] Implanted:Qty: 1 on 12/07/2022 by Tanya Morris MD at OR [facility] N/A: Abdomen [employer] [id number] 08/03/2025 PBD-1033-0 710 / / 2YK Power Port 8fr Sngl Lumen Plas - [id number] Implanted:Qty: 1 on 12/29/2022 by Landon Hickman DO at OR [facility] Right: Chest CR BARD : PERIPHERAL VASCULAR [id number] 12/02/2023 [id number] / / [id number] Hanarostent Noncover 10dm 10cm - [id number] Implanted:Qty: 1 on 02/19/2023 by Tanya Morris MD at OR [facility] [employer] [id number] 12/31/2024 SHS-10-100 -180 / / [id number] documented as of this encounter Visit Diagnoses [...] Advance Directives occurred with: Patient Care Teams Safe And Vault Mechanic Relationship Specialty Start Date End Date Kristine Kan DO PCP - General Family Medicine 12/18/22 03/15/24 documented as of this encounter
--- OUTSIDE RECORDS SUMMARY | 2024-06-06 23:37 | External Medical Summary | Summary of Care ---
Author Name Unknown Organization [facility] Address [address] [place] [address] Phone [phone] Care Team Providers Care Vineyard Worker Name Role Phone Kristine Kan DO Primary Care Provider Reason for Visit * Reason Onset Date Comments Test Results 01/12/202401/11 Encounter Details Date Type Department Care Team (Late st Contact Info) Description 01/12/2024 [facility]phone [facility] [address] [place] [address] Kristine Kan DO [address] [place] [address] Test Results () Allergies Active Allergy Reactions Criticality Noted Date [...] 70-Hypromellose) Instill into eye at bedtime. Active Hospital, Clinic, or Other Facility Administered Medication Ordered Dose Route Frequency Start Date End Date Status vitamin b-12 (Cyanocobalamin) inj 1,000 mcgIndications:Vitamin B 12 deficiency 1000 mcg IM [id number] 09/02/2023 08/03/2024 Active documented as of this [...] Miscellaneous Notes * Telephone Encounter - Bethanie Gray LPN - 01/12/2024 2:37 PM EDT Called, left message for patient to return call. Thank you Dr Kan, please review Dr Gross's note from today * Telephone Encounter - Kristine Kan DO - 01/12/2024 8:20 AM EDT Please let pt know: Her kidney function was a bit worse on her lab studies and her sodium was low. She may need hydration after seeing Dr. Gross today. Keep that appt. Platelets are low but again, not something we would transfuse at this point. documented in this encounter Plan of Treatment Upcoming Encounters Date Type Department Care Team (Late st Contact Info) Description 04/14/2024 1:00 PM EDT Immunization/Injecti on Hematology/[address] [phone] Jessica, Chair 10 Hem Onc [address] [place] [address] 04/25/2024 11:00 AM EDT Laboratory Laboratory [facility] [address] [place] [phone] Jessica, Lab [address] [facility] [place] [address] 04/26/2024 1:00 PM EDT Hem/Onc Treatment [facility] [place] [facility] [phone] Jessica, Chair 4 Hem Onc [place] [address] [place] [address] 05/05/2024 1:00 PM EDT Office Visit Family Practice [address] [facility] [place] [address] [place] [address] Kristine Kan DO 293 [facility] [place], [place] [address] 05/10/2024 10:00 AM EDT Office Visit Hematology/Oncology [facility] [address] [facility] [place] [phone] Hardik Gross MD [address] [facility] [place] [address] Health Maintenance Due Date Last Done Comments COVID-19 Vaccine ( season) 2024 11/08/2023, 07/10/2022, 01/06/2022, Additional history exists Influenza Vaccine (FLU shot) (#1) 2024 06/30/2023, 07/18/2022, 05/18/2021, Additional history exists Albumin/Creatinine Ratio 09/02/2024 09/02/2023, 08/0 10/2021 GFR 10/11/2024 04/10/2024, 07/0 11/2023, 03/20/2024, Additional history exists Depression Monitoring 11/09/2024 11/09/2023 CKD PHOS USE SMARTSET 16070 11/25/2024 11/25/2023, 0 12/05/2022 HbA1c 11/25/2024 11/25/2023, 11/04, 05/04/2022, Additional history exists CKD HGB USE SMARTSET 34135 04/10/202504/10, 04/10/2024, 04/04/2024, Additional history exists DXA [...] this encounter Medical Devices Implanted Type Area Health Unit Clerk Device Identifier Shelf Expiration Date Model / Serial / Lot Lens Intraoc 21.5 - [id number] - [id number] Implanted:Qty: 1 on 07/27/2019 by Tristian Araujo MD at OR [facility] Left: Eye BAUSCH & LOMB 04/02/2024 [id number] / [id number] / [id number] Lens Intraoc 21.5 - [id number] - [id number] Implanted:Qty: 1 on 08/08/2019 by Tristian Araujo MD at OR [facility] Right: Eye BAUSCH & LOMB 04/02/2024 [id number] / [id number] / [id number] Stent Axios [id number] - [id number] Implanted:Qty: 1 on 12/07/2022 by Tanya Morris MD at OR [facility] N/A: Abdomen [employer] : ENDOSCOPY [id number] 08/25/2023 [id number] / / [id number] Stent Bili Pigtail 7fr 100mm - [id number] Implanted:Qty: 1 on 12/07/2022 by Tanya Morris MD at OR [facility] N/A: Abdomen [employer] [id number] 08/03/2025 PBD-1033-0 710 / / [id number] Stent Bili Pigtail 7fr 100mm - [id number] Implanted:Qty: 1 on 12/07/2022 by Tanya Morris MD at OR [facility] N/A: Abdomen [employer] [id number] 08/03/2025 PBD-1033-0 710 / / 2YK Power Port 8fr Sngl Lumen Plas - [id number] Implanted:Qty: 1 on 12/29/2022 by Landon Hickman DO at OR [facility] Right: Chest CR BARD : PERIPHERAL VASCULAR [id number] 12/02/2023 [id number] / / [id number] Hanarostent Noncover 10dm 10cm - [id number] Implanted:Qty: 1 on 02/19/2023 by Tanya Morris MD at OR [facility] Room 77 INC [id number] 12/31/2024 [facility]-10-100 -180 / / [id number] documented as of this encounter Advance Directives * Full Code (Latest Code Status on File) Date Activated Date Inactivated Comments 12/04/2022 10:10 PM 12/08/2022 3:55 PM This order re flects the patients wishes and were consensually agreed upon. Question Answer Comments Discussion of Advance Directives occurred with: Patient Care Teams Vineyard Worker Relationship Specialty Start Date End Date Kristine Kan DO [address] [facility] [place] [address] PCP - General Family Medicine 03/16/24 documented as of this encounter
--- OUTSIDE RECORDS SUMMARY | 2024-06-06 23:37 | External Medical Summary | Summary of Care ---
Author Name Unknown Organization [facility] Address [address] [place] [address] Phone [phone] Care Team Providers Care Executive Manager Name Role Phone Kristine Kan Primary Care Provider [phone] Reason for Visit * Reason Comments Chemotherapy Leucovorin, 5fu Medication Administration Vitamin B12 * Episode Based Medications (Routine) - Authorized Specialty Diagnoses / Procedures Referred By Contac t Referred To Contact Diagnoses Carcinoma of gallbladder (HCC) Encounter for antineoplastic chemotherapy Procedures [place] LEUCOVORIN CALCIUM INJECTION [place] PALONOSETRON HCL [place] FLUOROURACIL INJECTION [place] OXALIPLATIN Hardik Gross MD [address] [place] [address] [place] [address] Anc Hem/Onc [address] [address] Referral ID Status Reason Start Date Expiration Date V isits Requested Visits Authorized [id number] Authorized 12/14/2023 12/13/2024 999 999 Encounter Details Date Type Department Care Team (Latest Contact Info) Description 04/12/2024 2:00 PM EDT Hem/Onc Treatment Hematology/Oncolog y Treatment, [address] [phone] Jessica, Chair 4 Hem Onc [address] [place] [address] Carcinoma of gallbladder (HCC)*; Encounter for antineoplastic [...] Tablet Therapy Pack (Eliquis DVT/PE Starter Pack)Indications:[place] 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 [...] mcgIndications:Vitamin B 12 deficiency 1000 mcg IM [id number] 09/02/2023 08/03/2024 Active documented as of this [...] 1:00 PM EDT Immunization/Injecti on Hematology/Oncology Treatment, [address] [place] [phone] Park, Chair 10 Hem Onc [place] [address] [place] [address] 04/25/2024 11:00 AM EDT Laboratory Laboratory [facility] [place] [address] [place] [phone] Jessica, Lab [place] [address] [place] [address] 04/26/2024 1:00 PM EDT Hem/Onc Treatment Hematology/Oncology Treatment, [address] [place] [phone] Jessica, Chair 4 Hem Onc [facility] [address] [place] [address] 05/05/2024 1:00 PM EDT Office Visit Family Practice [address] [place] [address] 293 [facility], [place] [address] Kristine Kan DO 293 [facility], [place] [address] 05/10/2024 10:00 AM EDT Office Visit Hematology/Oncology [facility] 200 [facility] [place], [place] [phone] Hardik Gross MD 200 [facility] [place] [address] Health Maintenance Due Date Last Done Comments COVID-19 Vaccine ( season) 2024 11/08/2023, 07/10/2022, 01/06/2022, Additional history exists Influenza Vaccine (FLU shot) (#1) 2024 06/30/2023, 07/18/2022, 05/18/2021, Additional history exists Albumin/Creatinine Ratio 09/02/2024 09/02/2023, 08/0 10/2021 GFR 10/11/2024 04/10/2024, 07/0 11/2023, 03/20/2024, Additional history exists Depression Monitoring 11/09/2024 11/09/2023 CKD PHOS USE SMARTSET 96069 11/25/2024 11/25/2023, 0 12/05/2022 HbA1c 11/25/2024 11/25/2023, 11/04, 05/04/2022, Additional history exists CKD HGB USE SMARTSET 51501 04/10/202504/10, 04/10/2024, 04/04/2024, Additional history exists DXA [...] this encounter Medical Devices Implanted Type Area Android Programmer Device Identifier Shelf Expiration Date Model / Serial / Lot Lens Intraoc 21.5 - [id number] - [id number] Implanted:Qty: 1 on 07/27/2019 by Tristian Araujo MD at OR [facility] Left: Eye BAUSCH & LOMB 04/02/2024 [id number] / [id number] / [id number] Lens Intraoc 21.5 - [id number] - [id number] Implanted:Qty: 1 on 08/08/2019 by Tristian Araujo MD at OR [facility] Right: Eye BAUSCH & LOMB 04/02/2024 [id number] / [id number] / [id number] Stent Axios [id number] - [id number] Implanted:Qty: 1 on 12/07/2022 by Tanya Morris MD at OR [facility] N/A: Abdomen [employer] : ENDOSCOPY [id number] 08/25/2023 [id number] / / [id number] Stent Bili Pigtail 7fr 100mm - [id number] Implanted:Qty: 1 on 12/07/2022 by Tanya Morris MD at OR [facility] N/A: Abdomen [employer] [id number] 08/03/2025 PBD-1033-0 710 / / [id number] Stent Bili Pigtail 7fr 100mm - [id number] Implanted:Qty: 1 on 12/07/2022 by Tanya Morris MD at OR [facility] N/A: Abdomen [employer] [id number] 08/03/2025 PBD-1033-0 710 / / 2YK Power Port 8fr Sngl Lumen Plas - [id number] Implanted:Qty: 1 on 12/29/2022 by Landon Hickman DO at OR [facility] Right: Chest CR BARD : PERIPHERAL VASCULAR [id number] 12/02/2023 [id number] / / [id number] Hanarostent Noncover 10dm 10cm - [id number] Implanted:Qty: 1 on 02/19/2023 by Tanya Morris MD at OR [facility] [employer] [id number] 12/31/2024 [facility]-10-100 -180 / / [id number] documented as of this encounter Visit Diagnoses [...] Advance Directives occurred with: Patient Care Teams Executive Manager Relationship Specialty Start Date End Date Kristine Kan DO 293 [facility] [address] PCP - General Family Medicine 03/16/24 documented as of this encounter
--- OUTSIDE RECORDS SUMMARY | 2024-06-06 23:37 | External Medical Summary | Summary of Care ---
Author Name Unknown Organization [facility] Address [address] [place] [address] Phone [phone] Care Team Providers Care Life Manager Name Role Phone Kristine Kan Primary Care Provider Reason for Visit * Reason Comments Chemotherapy C6D1 5-FU, Leucovori n * Episode Based Medications (Routine) - Authorized Specialty Diagnoses / Procedures Referred By Contac t Referred To Contact Diagnoses Carcinoma of gallbladder (HCC) Encounter for antineoplastic chemotherapy Procedures [place] LEUCOVORIN CALCIUM INJECTION [place] PALONOSETRON HCL [place] FLUOROURACIL INJECTION [place] OXALIPLATIN Hardik Gross MD 200 [place] [address] Anc Hem/Onc [address] [address] Referral ID Status Reason Start Date Expiration Date V isits Requested Visits Authorized [id number] Authorized 12/14/2023 12/13/2024 999 999 Encounter Details Date Type Department Care Team (Latest Contact Info) Description 03/21/2024 1:00 PM EDT Hem/Onc Treatment Hematology/Oncolog y Treatment, [address] [phone] Jessica, Chair 5 Hem Onc [address] [place] [address] Carcinoma of gallbladder (HCC)*; Encounter for antineoplastic [...] mcgIndications:Vitamin B 12 deficiency 1000 mcg IM [id number] 09/02/2023 08/03/2024 Active documented as of this [...] Sign Reading Time Taken Comments Blood Pressure 122/85 03/21/2024 1:10 PM EDT Pulse 71 03/21/2024 1:10 PM EDT Temperature 36.8 C (98.2 F) 03/21/2024 1:10 PM ED T Respiratory Rate 16 03/21/2024 1:10 PM EDT Oxygen Saturation 97% 03/21/2024 1:10 PM EDT Inhaled Oxygen Concentration - - Weight 73.9 kg (163 lb) 03/21/2024 1:10 PM EDT Height - - Body Mass Index 27.12 01/11/2024 2:35 PM EDT documented in this encounter Functional [...] of this encounter Nursing Notes * Karey Argueta, RN - 03/21/2024 2:33 PM EDT Chair 4 Pt here for C6D1 5-FU, Leucovorin. Reports that she continues to have difficulty walking but it is unchanged. Chemotherapy/Immunotherapy agents: 5FU and LEUCOVORIN Consent for chemotherapy drug treatment complete, dated, and signed? yes, date - 12/14/23 Treatment lab parameters met? Yes Has treatment weight changed > than 10%? No Treatment preauthorized? Yes VITALS Filed Vitals: 03/21/24 1310 BP: 122/85 Pulse: 71 Resp: 16 Temp: 36.8 C (98.2 F) TempSrc: Tympanic SpO2: 97% Weight: 73.9 kg (163 lb) Urine protein: N/A Patient education completed for [...] treatment. PRE-TREATMENT ASSESSMENT: NEURO: numbness or tingling: stable in BLE and fatigue:rests as needed, stable CV/RESP: denies symptoms GI/: denies symptoms OTHER: denies any additional symptoms PAIN: 0 Safety and Risk for Injury Patient will remain free from injury. Ensure appropriate safety devices are available. Provide and maintain safe environment. Goals: Patient will remain free from injury. Possible barriers to meeting goals: ambulation with IV pole Stability of the patient: Moderately stable - low risk of patient condition declining or worsening Summary regarding today's goals: Met: patient without injury during treatment today. Pt tolerated infusion well. No complaints. Discharged in stable condition. documented in this encounter Plan of Treatment Upcoming Encounters Date Type Department Care Team (Late st Contact Info) Description 04/14/2024 1:00 PM EDT Immunization/Injecti on Hematology/Oncology Treatment, [address] [place] [phone] Jessica, Chair 10 Hem Onc [address] [place] [address] 04/25/2024 11:00 AM EDT Laboratory Laboratory [facility] [address] [place] [phone] Jessica, Lab [address] [place] [address] 04/26/2024 1:00 PM EDT Hem/Onc Treatment Hematology/Oncology Treatment, [place] [facility] [phone] Jessica, Chair 4 Hem Onc [address] [place] [address] 05/05/2024 1:00 PM EDT Office Visit Family Practice 65 [facility] [place] 293 [facility] [place] [address] Kristine Kan DO 293 [facility], [place] [address] 05/10/2024 10:00 AM EDT Office Visit Hematology/Oncology [facility] [place] 200 [facility] [place] [phone] Hardik Gross MD 200 [facility] [place] [address] Health Maintenance Due Date Last Done Comments COVID-19 Vaccine ( season) 2024 11/08/2023, 07/10/2022, 01/06/2022, Additional history exists Influenza Vaccine (FLU shot) (#1) 2024 06/30/2023, 07/18/2022, 05/18/2021, Additional history exists Albumin/Creatinine Ratio 09/02/2024 09/02/2023, 08/0 10/2021 GFR 10/11/2024 04/10/2024, 07/0 11/2023, 03/20/2024, Additional history exists Depression Monitoring 11/09/2024 11/09/2023 CKD PHOS USE SMARTSET 49694 11/25/2024 11/25/2023, 0 12/05/2022 HbA1c 11/25/2024 11/25/2023, 11/04, 05/04/2022, Additional history exists CKD HGB USE SMARTSET 29263 04/10/202504/10, 04/10/2024, 04/04/2024, Additional history exists DXA [...] this encounter Medical Devices Implanted Type Area Substance Abuse Rn Device Identifier Shelf Expiration Date Model / Serial / Lot Lens Intraoc 21.5 - [id number] - [id number] Implanted:Qty: 1 on 07/27/2019 by Tristian Araujo MD at OR [facility] Left: Eye BAUSCH & LOMB 04/02/2024 [id number] / [id number] / [id number] Lens Intraoc 21.5 - [id number] - [id number] Implanted:Qty: 1 on 08/08/2019 by Tristian Araujo MD at OR [facility] Right: Eye BAUSCH & LOMB 04/02/2024 [id number] / [id number] / [id number] Stent Axios [id number] - [id number] Implanted:Qty: 1 on 12/07/2022 by Tanya Morris MD at OR [facility] N/A: Abdomen [employer] : ENDOSCOPY [id number] 08/25/2023 [id number] / / [id number] Stent Bili Pigtail 7fr 100mm - [id number] Implanted:Qty: 1 on 12/07/2022 by Tanya Morris MD at OR [facility] N/A: Abdomen [employer] [id number] 08/03/2025 PBD-1033-0 710 / / 2YK Stent Bili Pigtail 7fr 100mm - [id number] Implanted:Qty: 1 on 12/07/2022 by Tanya Morris MD at OR [facility] N/A: Abdomen [employer] [id number] 08/03/2025 PBD-1033-0 710 / / 2YK Power Port 8fr Sngl Lumen Plas - [id number] Implanted:Qty: 1 on 12/29/2022 by Landon Hickman DO at OR [facility] Right: Chest CR BARD : PERIPHERAL VASCULAR [id number] 12/02/2023 [id number] / / [id number] Hanarostent Noncover 10dm 10cm - [id number] Implanted:Qty: 1 on 02/19/2023 by Tanya Morris MD at OR [facility] [employer] [id number] 12/31/2024 SHS-10-100 -180 / / [id number] documented as of this encounter Visit Diagnoses [...] solution and volume., ONCE, 1 dose, On Wed03/21/24 at 1315 Start Infusion 03/21/2024 2:20 PM EDT 4,475 mg 3 mL/hr Fluorouracil (5-Fu) inj 750 mg 750 mg (rounded from 744 mg = 400 mg/m2 1.86 m2 Treatment Plan BSA from Recorded weight), IV Push, ONCE, 1 dose, On Wed03/21/24 at 1400 Given 03/21/2024 2:13 PM EDT 750 mg leucovorin calcium 750 mg in D5W 250 mL INFUSION 750 mg (rounded from 744 mg = 400 mg/m2 1.86 m2 Treatment Plan BSA from Recorded weight), IV Piggyback, ONCE, 1 dose, On Wed03/21/24 at 1400, Administer over 30 Minutes, Before 5-FU Start Infusion 03/21/2024 1:35 PM EDT 750 mg 510 mL/hr NSS infusion FOR HYDRATION Intravenous, at 50 mL/hr Administer over 10 Hours, PRN, Starting on Wed03/21/24 at 1315, Until Wed03/21/24 at 1545 Start Infusion 03/21/2024 1:33 PM EDT 500 mL 50 mL/hr ondansetron (Zofran) tab 8 mg 8 mg, Oral, ONCE, On Wed03/21/24 at 1400, For 1 dose Given 03/21/2024 1:30 PM EDT 8 mg documented in this encounter Advance Directives * Full Code (Latest Code Status on File) Date Activated Date Inactivated Comments 12/04/2022 10:10 PM 12/08/2022 3:55 PM This order re flects the patients wishes and were consensually agreed upon. Question Answer Comments Discussion of Advance Directives occurred with: Patient Care Teams Life Manager Relationship Specialty Start Date End Date Kristine Kan DO [address] [place] [address] PCP - General Family Medicine 03/16/24 documented as of this encounter
--- OUTSIDE RECORDS SUMMARY | 2024-06-06 23:37 | External Medical Summary | Summary of Care ---
Author Name Unknown Organization [facility] Address [address] [place] [address] Phone [phone] Care Team Providers Care Industrial Diamond Polisher Name Role Phone Kristine Kan Primary Care Provider Reason for Visit * Reason Comments Chemotherapy C6D1 5-FU, Leucovori n * Episode Based Medications (Routine) - Authorized Specialty Diagnoses / Procedures Referred By Contac t Referred To Contact Diagnoses Carcinoma of gallbladder (HCC) Encounter for antineoplastic chemotherapy Procedures [place] LEUCOVORIN CALCIUM INJECTION [place] PALONOSETRON HCL [place] FLUOROURACIL INJECTION [place] OXALIPLATIN Hardik Gross MD 200 [place] [address] Anc Hem/Onc [address] [address] Referral ID Status Reason Start Date Expiration Date V isits Requested Visits Authorized [id number] Authorized 12/14/2023 12/13/2024 999 999 Encounter Details Date Type Department Care Team (Latest Contact Info) Description 03/21/2024 1:00 PM EDT Hem/Onc Treatment Hematology/Oncolog y Treatment, [address] [phone] Jessica, Chair 5 Hem Onc [address] [place] [address] Carcinoma of gallbladder (HCC)*; Encounter for antineoplastic [...] mcgIndications:Vitamin B 12 deficiency 1000 mcg IM [id number] 09/02/2023 08/03/2024 Active documented as of this [...] 1:00 PM EDT Immunization/Injecti on Hematology/Oncology Treatment, [address] [place] [phone] Jessica, Chair 10 Hem Onc [address] [place] [address] 04/25/2024 11:00 AM EDT Laboratory Laboratory [facility] [address] [place] [phone] Jessica, Lab [address] [place] [address] 04/26/2024 1:00 PM EDT Hem/Onc Treatment Hematology/Oncology Treatment, [place] [facility] [phone] Jessica, Chair 4 Hem Onc [address] [place] [address] 05/05/2024 1:00 PM EDT Office Visit Family Practice 65 [facility] [place] 293 [place] [address] Kristine Kan DO 293 [facility], [place] [address] 05/10/2024 10:00 AM EDT Office Visit Hematology/Oncology [facility] [place] 200 [facility] [place] [phone] Hardik Gross MD 200 [facility] [place] [address] Health Maintenance Due Date Last Done Comments COVID-19 Vaccine ( season) 2024 11/08/2023, 07/10/2022, 01/06/2022, Additional history exists Influenza Vaccine (FLU shot) (#1) 2024 06/30/2023, 07/18/2022, 05/18/2021, Additional history exists Albumin/Creatinine Ratio 09/02/2024 09/02/2023, 08/0 10/2021 GFR 10/11/2024 04/10/2024, 07/0 11/2023, 03/20/2024, Additional history exists Depression Monitoring 11/09/2024 11/09/2023 CKD PHOS USE SMARTSET 86400 11/25/2024 11/25/2023, 0 12/05/2022 HbA1c 11/25/2024 11/25/2023, 11/04, 05/04/2022, Additional history exists CKD HGB USE SMARTSET 89007 04/10/202504/10, 04/10/2024, 04/04/2024, Additional history exists DXA [...] this encounter Medical Devices Implanted Type Area Blanker Operator Device Identifier Shelf Expiration Date Model / Serial / Lot Lens Intraoc 21.5 - [id number] - [id number] Implanted:Qty: 1 on 07/27/2019 by Tristian Araujo MD at OR [facility] Left: Eye BAUSCH & LOMB 04/02/2024 [id number] / [id number] / [id number] Lens Intraoc 21.5 - [id number] - [id number] Implanted:Qty: 1 on 08/08/2019 by Tristian Araujo MD at OR [facility] Right: Eye BAUSCH & LOMB 04/02/2024 [id number] / [id number] / [id number] Stent Axios [id number] - [id number] Implanted:Qty: 1 on 12/07/2022 by Tanya Morris MD at OR [facility] N/A: Abdomen [employer] : ENDOSCOPY [id number] 08/25/2023 [id number] / / [id number] Stent Bili Pigtail 7fr 100mm - [id number] Implanted:Qty: 1 on 12/07/2022 by Tanya Morris MD at OR [facility] N/A: Abdomen [employer] [id number] 08/03/2025 PBD-1033-0 710 / / 2YK Stent Bili Pigtail 7fr 100mm - [id number] Implanted:Qty: 1 on 12/07/2022 by Tanya Morris MD at OR [facility] N/A: Abdomen [employer] [id number] 08/03/2025 PBD-1033-0 710 / / 2YK Power Port 8fr Sngl Lumen Plas - [id number] Implanted:Qty: 1 on 12/29/2022 by Landon Hickman DO at OR [facility] Right: Chest CR BARD : PERIPHERAL VASCULAR [id number] 12/02/2023 [id number] / / [id number] Hanarostent Noncover 10dm 10cm - [id number] Implanted:Qty: 1 on 02/19/2023 by Tanya Morris MD at OR [facility] [employer] [id number] 12/31/2024 SHS-10-100 -180 / / [id number] documented as of this encounter Visit Diagnoses [...] Advance Directives occurred with: Patient Care Teams Industrial Diamond Polisher Relationship Specialty Start Date End Date Kristine Kan DO [address] [facility] [place] [address] PCP - General Family Medicine 03/16/24 documented as of this encounter
--- OUTSIDE RECORDS SUMMARY | 2024-06-06 23:37 | External Medical Summary | Summary of Care ---
Author Name Unknown Organization [facility] Address [address] [place] [address] Phone [phone] Care Team Providers Care Supervisor Forming And Tempering Name Role Phone Kristine Kan Primary Care Provider [phone] Reason for Visit * Reason Comments Chemotherapy FOLFOX C5,D1 * Episode Based Medications (Routine) - Authorized Specialty Diagnoses / Procedures Referred By Marcela johansen Referred To Contact Diagnoses Carcinoma of gallbladder (HCC) Encounter for antineoplastic chemotherapy Procedures [place] LEUCOVORIN CALCIUM INJECTION [place] PALONOSETRON HCL [place] FLUOROURACIL INJECTION [place] OXALIPLATIN Hardik Gross MD 200 [facility] [place] [address] Anc Hem/Onc [address] [address] Referral ID Status Reason Start Date Expiration Date V isits Requested Visits Authorized [id number] Authorized 12/14/2023 12/13/2024 999 999 Encounter Details Date Type Department Care Team (Latest Contact Info) Description 03/07/2024 1:00 PM EDT Hem/Onc Treatment Hematology/Oncolog y Treatment, [address] [phone] Jessica, Chair 3 Hem Onc [address] [place] [address] Carcinoma of gallbladder (HCC)*; Encounter for antineoplastic [...] mcgIndications:Vitamin B 12 deficiency 1000 mcg IM [id number] 09/02/2023 08/03/2024 Active documented as of this [...] 1:00 PM EDT Immunization/Injecti on Hematology/Oncology Treatment, [place] 200 [place] [phone] Jessica, Chair 10 Hem Onc [facility] 200 [facility] [place], [place] [address] 04/25/2024 11:00 AM EDT Laboratory Laboratory [facility] [address] [place], [place] [phone] Jessica, Lab [facility] 200 [facility] [place], [place] [address] 04/26/2024 1:00 PM EDT Hem/Onc Treatment [facility]/Oncology [facility] 200 [facility], [place] [phone] Jessica, Chair 4 Hem Onc [facility] 200 [facility] [place], [place] [address] 05/05/2024 1:00 PM EDT Office Visit Family Practice [address] [place] [address] 293 [place] [address] Kristine Kan DO 293 [place] [address] 05/10/2024 10:00 AM EDT Office Visit Hematology/Oncology [facility] 200 [facility] [place], [place] [phone] Hardik Gross MD 200 [facility] [place], [place] [address] Health Maintenance Due Date Last Done Comments COVID-19 Vaccine ( season) 2024 11/08/2023, 07/10/2022, 01/06/2022, Additional history exists Influenza Vaccine (FLU shot) (#1) 2024 06/30/2023, 07/18/2022, 05/18/2021, Additional history exists Albumin/Creatinine Ratio 09/02/2024 09/02/2023, 08/0 10/2021 GFR 10/11/2024 04/10/2024, 07/0 11/2023, 03/20/2024, Additional history exists Depression Monitoring 11/09/2024 11/09/2023 CKD PHOS USE SMARTSET 08932 11/25/2024 11/25/2023, 0 12/05/2022 HbA1c 11/25/2024 11/25/2023, 11/04, 05/04/2022, Additional history exists CKD HGB USE SMARTSET 05813 04/10/202504/10, 04/10/2024, 04/04/2024, Additional history exists DXA [...] this encounter Medical Devices Implanted Type Area Supervisor Hydrochloric Area Device Identifier Shelf Expiration Date Model / Serial / Lot Lens Intraoc 21.5 - [id number] - [id number] Implanted:Qty: 1 on 07/27/2019 by Tristian Araujo MD at OR [facility] Left: Eye BAUSCH & LOMB 04/02/2024 [id number] / [id number] / [id number] Lens Intraoc 21.5 - [id number] - [id number] Implanted:Qty: 1 on 08/08/2019 by Tristian Araujo MD at OR [facility] Right: Eye BAUSCH & LOMB 04/02/2024 [id number] / [id number] / [id number] Stent Axios 66nkx76kz - [id number] Implanted:Qty: 1 on 12/07/2022 by Tanya Morris MD at OR [facility] N/A: Abdomen [employer] : ENDOSCOPY [id number] 08/25/2023 [id number] / / [id number] Stent Bili Pigtail 7fr 100mm - [id number] Implanted:Qty: 1 on 12/07/2022 by Tanya Morris MD at OR [facility] N/A: Abdomen [employer] [id number] 08/03/2025 PBD-1033-0 710 / / [id number] Stent Bili Pigtail 7fr 100mm - [id number] Implanted:Qty: 1 on 12/07/2022 by Tanya Morris MD at OR [facility] N/A: Abdomen [employer] [id number] 08/03/2025 PBD-1033-0 710 / / 2YK Power Port 8fr Sngl Lumen Plas - [id number] Implanted:Qty: 1 on 12/29/2022 by Landon Hickman DO at OR [facility] Right: Chest CR BARD : PERIPHERAL VASCULAR [id number] 12/02/2023 [id number] / / [id number] Hanarostent Noncover 10dm 10cm - [id number] Implanted:Qty: 1 on 02/19/2023 by Tanya Morris MD at OR [facility] [employer] [id number] 12/31/2024 SHS-10-100 -180 / / [id number] documented as of this encounter Visit Diagnoses [...] Advance Directives occurred with: Patient Care Teams Supervisor Forming And Tempering Relationship Specialty Start Date End Date Kristine Kan DO PCP - General Family Medicine 12/18/22 03/15/24 documented as of this encounter
--- OUTSIDE RECORDS SUMMARY | 2024-06-06 23:37 | External Medical Summary | Summary of Care ---
Author Name Unknown Organization [facility] Address [address] [place] [address] Phone [phone] Care Team Providers Care Agricultural Education Professor Name Role Phone Kristine Kan Primary Care Provider [phone] Reason for Visit * Reason Comments Chemotherapy FOLFOX C5,D1 * Episode Based Medications (Routine) - Authorized Specialty Diagnoses / Procedures Referred By Marcela johansen Referred To Contact Diagnoses Carcinoma of gallbladder (HCC) Encounter for antineoplastic chemotherapy Procedures DC LEUCOVORIN CALCIUM INJECTION DC PALONOSETRON HCL DC FLUOROURACIL INJECTION DC OXALIPLATIN Hardik Gross MD 200 [facility] [place] [address] Anc Hem/Onc [address] [phone] Referral ID Status Reason Start Date Expiration Date V isits Requested Visits Authorized [id number] Authorized 12/14/2023 12/13/2024 999 [id number] Encounter Details Date Type Department Care Team (Latest Contact Info) Description 03/07/2024 1:00 PM EDT Hem/Onc Treatment Hematology/Oncolog y Treatment, [address] [phone] Jessica, Chair 3 Hem On[address] [place] [address] Carcinoma of gallbladder (HCC)*; Encounter for antineoplastic [...] mcgIndications:Vitamin B 12 deficiency 1000 mcg IM [id number] 09/02/2023 08/03/2024 Active documented as of this [...] 1:00 PM EDT Immunization/Injecti on Hematology/Oncology Treatment, [place] 200 [facility] [place] [phone] Jessica, Chair 10 Hem Onc [facility] 200 [facility] [place], [place] [address] 04/25/2024 11:00 AM EDT Laboratory Laboratory [facility] [address] [place], [place] [phone] Jessica, Lab [facility] 200 [facility] [place], [place] [address] 04/26/2024 1:00 PM EDT Hem/Onc Treatment [facility]/Oncology [facility] 200 [facility] [place], [place] [phone] Jessica, Chair 4 Hem Onc [facility] 200 [facility] [place], [place] [address] 05/05/2024 1:00 PM EDT Office Visit Family Practice [address] [place] [address] 293 [place] [address] Kristine Kan DO 293 [place] [address] 05/10/2024 10:00 AM EDT Office Visit Hematology/Oncology [facility] 200 [facility] [place], [place] [phone] Hardik Gross MD 200 [facility] [place], [place] [address] Health Maintenance Due Date Last Done Comments COVID-19 Vaccine ( season) 2024 11/08/2023, 07/10/2022, 01/06/2022, Additional history exists Influenza Vaccine (FLU shot) (#1) 2024 06/30/2023, 07/18/2022, 05/18/2021, Additional history exists Albumin/Creatinine Ratio 09/02/2024 09/02/2023, 08/0 10/2021 GFR 10/11/2024 04/10/2024, 07/0 11/2023, 03/20/2024, Additional history exists Depression Monitoring 11/09/2024 11/09/2023 CKD PHOS USE SMARTSET 91686 11/25/2024 11/25/2023, 0 12/05/2022 HbA1c 11/25/2024 11/25/2023, 11/04, 05/04/2022, Additional history exists CKD HGB USE SMARTSET 00043 04/10/202504/10, 04/10/2024, 04/04/2024, Additional history exists DXA [...] this encounter Medical Devices Implanted Type Area Spent Grain Dryer Device Identifier Shelf Expiration Date Model / Serial / Lot Lens Intraoc 21.5 - [id number] - [id number] Implanted:Qty: 1 on 07/27/2019 by Tristian Araujo MD at OR [facility] Left: Eye BAUSCH & LOMB 04/02/2024 [id number] / [id number] / [id number] Lens Intraoc 21.5 - [id number] - [id number] Implanted:Qty: 1 on 08/08/2019 by Tristian Araujo MD at OR [facility] Right: Eye BAUSCH & LOMB 04/02/2024 [id number] / [id number] / [id number] Stent Axios [id number] - [id number] Implanted:Qty: 1 on 12/07/2022 by Tanya Morris MD at OR [facility] N/A: Abdomen [employer] : ENDOSCOPY [id number] 08/25/2023 [id number] / / [id number] Stent Bili Pigtail 7fr 100mm - [id number] Implanted:Qty: 1 on 12/07/2022 by Tanya Morris MD at OR [facility] N/A: Abdomen [employer] [id number] 08/03/2025 PBD-1033-0 710 / / [id number] Stent Bili Pigtail 7fr 100mm - [id number] Implanted:Qty: 1 on 12/07/2022 by Tanya Morris MD at OR [facility] N/A: Abdomen [employer] [id number] 08/03/2025 PBD-1033-0 710 / / 2YK Power Port 8fr Sngl Lumen Plas - [id number] Implanted:Qty: 1 on 12/29/2022 by Landon Hickman DO at OR [facility] Right: Chest CR BARD : PERIPHERAL VASCULAR [id number] 12/02/2023 [id number] / / [id number] Hanarostent Noncover 10dm 10cm - [id number] Implanted:Qty: 1 on 02/19/2023 by Tanya Morris MD at OR [facility] [employer] [id number] 12/31/2024 SHS-10-100 -180 / / [id number] documented as of this encounter Visit Diagnoses [...] Advance Directives occurred with: Patient Care Teams Agricultural Education Professor Relationship Specialty Start Date End Date Kristine Kan DO PCP - General Family Medicine 12/18/22 03/15/24 documented as of this encounter
--- OUTSIDE RECORDS SUMMARY | 2024-06-06 23:38 | External Medical Summary | Summary of Care ---
Author Name Unknown Organization [facility] Address [address] [place] [address] Phone [phone] Care Team Providers Care Compressed Gases Tester Name Role Phone Kristine Kan Primary Care Provider [phone] Reason for Visit * Reason Onset Date Comments Appointment 04/11/2024 Encounter Details Date Type Department Care Team (Late st Contact Info) Description 04/11/2024 Telephone Hematology/Oncology [facility] 200 [place] [phone] Hardik Gross MD 200 [place] [address] Appointment Allergies Active Allergy Reactions Criticality Noted Date Comments Latex Rash 06/28/2018 From a dressing Sulfamethoxazole Edema face/lips/tongue High 023 Trimethoprim Edema face/lips/tongue High 12/03/2022 documented as of this encounter (statuses as of 04/11/2024) Medications Medication Sig Dispensed Refills Start Date [...] mcgIndications:Vitamin B 12 deficiency 1000 mcg IM [id number] 09/02/2023 08/03/2024 Active documented as of this encounter (statuses as of 04/11/2024) Active Problems Problem Noted Date Diagnosed Date [...] as of this encounter (statuses as of 04/11/2024) Resolved Problems Problem Noted Date Diagnosed Date [...] as of this encounter (statuses as of 04/11/2024) Immunizations Name Administration Dates Next Due COVID-19 [...] encounter Miscellaneous Notes * Telephone Encounter - Jose Pineda RN - 04/11/2024 8:[address] Gross- would like to see patient in follow up prior to her next treatment. Cancelled patients treatment for today and scheduled follow up with Dr. Gross for today at 3P and tentative 2 hour treatment tomorrow. Pharmacy is aware, advised not to release pump until we know if patient will be receiving treatment. documented in this encounter Plan of Treatment Upcoming Encounters Date Type Department Care Team (Late st Contact Info) Description 04/11/2024 3:00 PM EDT Office Visit Hematology/Oncology [facility] [place] 200 [facility] [place] [phone] Hardik Gross MD 200 [facility] [place] [address] 04/12/2024 2:00 PM EDT Hem/Onc Treatment Hematology/Oncology Treatment, [place] 200 [facility] [place] [phone] Jessica, Chair 4 Hem Onc [address] [place] [address] 05/05/2024 1:00 PM EDT Office Visit Family Practice [address], [place] 293 [place] [address] Kristine Kan DO 293 [place] [address] Health Maintenance Due Date Last Done Comments COVID-19 Vaccine ( season) 2024 11/08/2023, 07/10/2022, 01/06/2022, Additional history exists Influenza Vaccine (FLU shot) (#1) 2024 06/30/2023, 07/18/2022, 05/18/2021, Additional history exists Albumin/Creatinine Ratio 09/02/2024 09/02/2023, 08/0 10/2021 GFR 10/11/2024 04/10/2024, 07/0 11/2023, 03/20/2024, Additional history exists Depression Monitoring 11/09/2024 11/09/2023 CKD PHOS USE SMARTSET 40196 11/25/2024 11/25/2023, 0 12/05/2022 HbA1c 11/25/2024 11/25/2023, 11/04, 05/04/2022, Additional history exists CKD HGB USE SMARTSET 18826 04/10/202504/10, 04/10/2024, 04/04/2024, Additional history exists DXA [...] this encounter Medical Devices Implanted Type Area Organic Chemistry Teacher Device Identifier Shelf Expiration Date Model / Serial / Lot Lens Intraoc 21.5 - [id number] - [id number] Implanted:Qty: 1 on 07/27/2019 by Tristian Araujo MD at OR [facility] Left: Eye BAUSCH & LOMB 04/02/2024 [id number] / [id number] / [id number] Lens Intraoc 21.5 - [id number] - [id number] Implanted:Qty: 1 on 08/08/2019 by Tristian Araujo MD at OR [facility] Right: Eye BAUSCH & LOMB 04/02/2024 [id number] / [id number] / [id number] Stent Axios [id number] - [id number] Implanted:Qty: 1 on 12/07/2022 by Tanya Morris MD at OR [facility] N/A: Abdomen [employer] : ENDOSCOPY [id number] 08/25/2023 [id number] / / [id number] Stent Bili Pigtail 7fr 100mm - [id number] Implanted:Qty: 1 on 12/07/2022 by Tanya Morris MD at OR [facility] N/A: Abdomen Satin [employer] [id number] 08/03/2025 PBD-1033-0 710 / / [id number] Stent Bili Pigtail 7fr 100mm - [id number] Implanted:Qty: 1 on 12/07/2022 by Tanya Morris MD at OR [facility] N/A: Abdomen [employer] [id number] 08/03/2025 PBD-1033-0 710 / / 2YK Power Port 8fr Sngl Lumen Plas - [id number] Implanted:Qty: 1 on 12/29/2022 by Landon Hickman DO at OR [facility] Right: Chest CR BARD : PERIPHERAL VASCULAR [id number] 12/02/2023 [id number] / / [id number] Hanarostent Noncover 10dm 10cm - [id number] Implanted:Qty: 1 on 02/19/2023 by Tanya Morris MD at OR [facility] [employer] [id number] 12/31/2024 [facility]-10-100 -180 / / [id number] documented as of this encounter Advance Directives * Full Code (Latest Code Status on File) Date Activated Date Inactivated Comments 12/04/2022 10:10 PM 12/08/2022 3:55 PM This order re flects the patients wishes and were consensually agreed upon. Question Answer Comments Discussion of Advance Directives occurred with: Patient Care Teams Compressed Gases Tester Relationship Specialty Start Date End Date Kristine Kan DO [address] [place] [address] PCP - General Family Medicine 03/16/24 documented as of this encounter
--- OUTSIDE RECORDS SUMMARY | 2024-06-06 23:38 | External Medical Summary | Summary of Care ---
Author Name Unknown Organization [facility] Address [address] [place] [address] Phone [phone] Care Team Providers Care Metal Inspector Name Role Phone Kristine Kan Primary Care Provider [phone] Reason for Visit * Reason Onset Date Comments Appointment 04/11/2024 Encounter Details Date Type Department Care Team (Late st Contact Info) Description 04/11/2024 Telephone Hematology/Oncology [facility] 200 [place] [phone] Hardik Gross MD [address] [place] [address] Appointment Allergies Active Allergy Reactions Criticality Noted [...] Tablet Therapy Pack (Eliquis DVT/PE Starter Pack)Indications:Ac port gamble 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 [...] mcgIndications:Vitamin B 12 deficiency 1000 mcg IM [id number] 09/02/2023 08/03/2024 Active documented as of this [...] Telephone Encounter - Jose Pineda RN - 04/12/2024 9:35 AM EDT Late entry: Per Dr. Gross on 04/11 pt is ok for treatment on 04/12 after meeting with her and her . Pump released. * Telephone Encounter - Jose Pineda RN [...] PM EDT Hem/Onc Treatment Hematology/Oncolog y Treatment, [place] [address] [place] [address] Jsesica, Chair 4 Hem Onc [address] 200 [facility] [place], [place] [address] Carcinoma of gallbladder (HCC)*; Encounter for antineoplastic chemotherapy 05/05/2024 1:00 PM EDT Office Visit Family Practice [address], [place] 293 [facility], [place] [phone] Kristine Kan DO 293 [facility], [place] [address] 05/10/2024 10:00 AM EDT Office Visit Hematology/Oncolog y [facility] [place] [address] [place], [place] [address] Hardik Gross MD [address] [place], [place] [address] Health Maintenance Due Date Last Done Comments COVID-19 Vaccine ( season) 2024 11/08/2023, 07/10/2022, 01/06/2022, Additional history exists Influenza Vaccine (FLU shot) (#1) 2024 06/30/2023, 07/18/2022, 05/18/2021, Additional history exists Albumin/Creatinine Ratio 09/02/2024 09/02/2023, 08/0 10/2021 GFR 10/11/2024 04/10/2024, 07/0 11/2023, 03/20/2024, Additional history exists Depression Monitoring 11/09/2024 11/09/2023 CKD PHOS USE SMARTSET 51872 11/25/2024 11/25/2023, 0 12/05/2022 HbA1c 11/25/2024 11/25/2023, 11/04, 05/04/2022, Additional history exists CKD HGB USE SMARTSET 12731 04/10/202504/10, 04/10/2024, 04/04/2024, Additional history exists DXA [...] this encounter Medical Devices Implanted Type Area Greige Mender Device Identifier Shelf Expiration Date Model / Serial / Lot Lens Intraoc 21.5 - [id number] - [id number] Implanted:Qty: 1 on 07/27/2019 by Tristian Araujo MD at OR [facility] Left: Eye BAUSCH & LOMB 04/02/2024 [id number] / [id number] / [id number] Lens Intraoc 21.5 - [id number] - [id number] Implanted:Qty: 1 on 08/08/2019 by Tristian Araujo MD at OR [facility] Right: Eye BAUSCH & LOMB 04/02/2024 [id number] / [id number] / [id number] Stent Axios [id number] - [id number] Implanted:Qty: 1 on 12/07/2022 by Tanya Morris MD at OR [facility] N/A: Abdomen [employer] : ENDOSCOPY [id number] 08/25/2023 [id number] / / [id number] Stent Bili Pigtail 7fr 100mm - [id number] Implanted:Qty: 1 on 12/07/2022 by Tanya Morris MD at OR [facility] N/A: Abdomen [employer] [id number] 08/03/2025 PBD-1033-0 710 / / [id number] Stent Bili Pigtail 7fr 100mm - [id number] Implanted:Qty: 1 on 12/07/2022 by Tanya Morris MD at OR [facility] N/A: Abdomen [employer] [id number] 08/03/2025 PBD-1033-0 710 / / 2YK Power Port 8fr Sngl Lumen Plas - [id number] Implanted:Qty: 1 on 12/29/2022 by Landon Hickman DO at OR [facility] Right: Chest CR BARD : PERIPHERAL VASCULAR [id number] 12/02/2023 [id number] / / [id number] Hanarostent Noncover 10dm 10cm - [id number] Implanted:Qty: 1 on 02/19/2023 by Tanya Morris MD at OR [facility] [employer] [id number] 12/31/2024 SHS-10-100 -180 / / [id number] documented as of this encounter Advance Directives * Full Code (Latest Code Status on File) Date Activated Date Inactivated Comments 12/04/2022 10:10 PM 12/08/2022 3:55 PM This order re flects the patients wishes and were consensually agreed upon. Question Answer Comments Discussion of Advance Directives occurred with: Patient Care Teams Metal Inspector Relationship Specialty Start Date End Date Kristine Kan DO [address] [place] [address] PCP - General Family Medicine 03/16/24 documented as of this encounter
--- OUTSIDE RECORDS SUMMARY | 2024-06-06 23:38 | External Medical Summary | Summary of Care ---
Author Name Unknown Organization [facility] Address [address] [place] [address] Phone [phone] Care Team Providers Care Assembler Faucets Name Role Phone Kristine Kan Primary Care Provider Reason for Visit * Reason Comments Chemotherapy Chemo/recheck Encounter Details Date Type Department Care Team (Late st Contact Info) Description 04/11/2024 3:00 PM EDT Office Visit Hematology/Oncology [facility] [address] [facility] [place] [address] Hardik Gross MD [address] [place] [address] Carcinoma of gallbladder (HCC)*; Encounter for antineoplastic [...] mcgIndications:Vitamin B 12 deficiency 1000 mcg IM [id number] 09/02/2023 08/03/2024 Active documented as of this [...] Sign Reading Time Taken Comments Blood Pressure 132/85 04/11/2024 3:00 PM EDT Pulse 79 04/11/2024 3:00 PM EDT Temperature 35.8 C (96.5 F) 04/11/2024 3:00 PM ED T Respiratory Rate - - Oxygen Saturation 96% 04/11/2024 3:00 PM EDT Inhaled Oxygen Concentration - - Weight 74.8 kg (165 lb) 04/11/2024 3:00 PM EDT Height - - Body Mass Index 27.46 04/04/2024 3:26 PM EDT documented in this [...] Progress Notes * Hardik Gross MD - 04/11/2024 3:07 PM EDT Outpatient Consult Note Data Source: Patient, Epic record. Data Source: Patient, Epic record. 04/11/2024 3:07 PM Anjelica Burnham Saurabh [id number] 74 year old Patient Encounter: HEMATOLOGY/ONCOLOGY [facility] Cancer Diagnosis: Adenocarcinoma of gallbladder History of Left breast cancer, stage IA p T1 c p N0 ER strongly+ IL weakly + Her 2 ирина negative Current Treatment: On FOLFOX Previous Treatment: Gemcitabine and cisplatin. Durvalumab was [...] cpN0 disease with ER strongly positive and IL weakly positive and HER2 Ирина negative. Oncotype DX recurrence score was 12. She completed radiation therapy and 5 years of tamoxifen. She completed 5 years in August 2022. Patient was seen by Dr. Hannon at [facility] for 2nd opinion and he recommended durvalumab with gemcitabine and cisplatin combination. If she fails this combination then will be eligible for clinical trial or consider capecitabine plus oxaliplatin or FOLFOX. Interval History: She is complaining of generalized fatigue and weakness. She also had episode of dizziness now feeling better. Denies any chest pain, palpitation abdominal pain or distention, bleeding, bruising, nausea, vomiting, abdominal pain, hematuria, hematochezia. Overall clinically she is stable LABS/IMAGING: Results for orders placed or performed in visit on 04/10/24 COMPREHENSIVE METABOLIC PANEL Result Value Ref Range BUN 28 (H) 6 - 20 mg/dL Creatinine 1.6 (H) 0.5 - 1.0 mg/dL Estimated Glomerular Filtration Rate 34 (L) >=60 mL/min Sodium 138 135 - 146 mmol/L Potassium 3.8 3.5 - 5.1 mmol/L Chloride 104 98 - 107 mmol/L CO2 22 22 - 32 mmol/L Anion Gap 12 7 - 15 mmol/L Glucose 155 (H) 70 - 120 mg/dL Albumin 3.5 (L) 3.8 - 5.0 g/dL AST 13 10 - 35 U/L Alkaline Phosphatase 102 35 - 130 U/L Bilirubin, Total 0.2 <=1.2 mg/dL Calcium 9.3 8.4 - 10.2 mg/dL Protein 6.6 6.0 - 8.3 g/dL ALT 5 (L) 10 - 35 U/L MAGNESIUM Result Value Ref Range Magnesium 1.9 1.5 - 2.6 mg/dL PROTEIN/ CREATININE RATIO, URINE Result Value Ref Range Protein/ Creatinine Ratio, Urine 211 (H) <150 mg/g Protein, Random Urine 34 mg/dL Creatinine, Random Urine 161 mg/dL URINALYSIS WITH MICROSCOPIC EXAM Result Value Ref Range Color, Urine Yellow Light Yellow, Yellow, Dark Yellow Clarity, Urine Slightly Cloudy (A) Clear Glucose, Urine Negative Negative mg/dL Bilirubin, Urine Negative Negative Ketone, Urine Negative Negative mg/dL Specific [place], Urine 1.020 1.003 - 1.030 Blood, Urine Trace (A) Negative pH, Urine 5.5 5.0 - 7.5 Units Protein, Urine 30 (A) Negative mg/dL Urobilinogen, Urine 0.2 0.2, 1.0 mg/dL Nitrite, Urine Negative Negative Esterase, Urine Moderate (A) Negative RBC, Urine 3-5 (A) 0 - 2 /HPF WBC, Urine 30-49 (A) 0 - 2 /HPF Bacteria, Urine 26-50 (A) 0 - 25 /HPF CBC Result Value Ref Range WBC 8.75 4.00 - 10.80 K/uL RBC 2.82 3.85 - 5.15 M/uL HGB 9.5 (L) 12.0 - 15.3 g/dL HCT 30.5 (L) 36.0 - 45.2 % MCV 108.2 81.5 - 97.5 fL MCH 33.7 27.0 - 34.0 pg MCHC 31.1 32.0 - 36.0 g/dL RDW 18.1 11.5 - 15.5 % PLT 227 140 - 400 K/uL MPV 8.8 6.6 - 11.1 fL DIFFERENTIAL, TECHNOLOGIST REVIEW Result Value Ref Range WBC 8.75 4.00 - 10.80 K/uL Neutrophils % 53.0 40.0 - 75.0 % Lymphocytes % 38.0 18.0 - 42.0 % Monocytes % 7.0 1.0 - 11.0 % Eosinophils % 1.0 0.0 - 6.0 % Metamyelocytes % 1.0 (H) <=0.0 % Absolute Neutrophils 4.64 1.80 - 7.70 K/uL Absolute Lymphocytes 3.33 1.00 - 4.80 K/uL Absolute Monocytes 0.61 0.00 - 1.10 K/uL Absolute Eosinophils 0.09 0.00 - 0.70 K/uL Absolute Metamyelocytes 0.09 (H) <=0.00 K/uL nRBCs *Note: Due to a large number of results and/or encounters for the requested time period, some results have not been displayed. A complete set of results can be found in Results Review. Her blood tests are all in stable in acceptable range including stable creatinine hemoglobin level.CA 19-9 level has increased to more than 10,000. Recent CT scan were done on 03/28/2024 which revealed gallbladder appears to have decreased in sizefrom prior, currently measuring 3.1 cm in diameter compared to 3.6 cm previously. REVIEW OF SYSTEMS: General: No Fever, chills, [...] or bleeding Genitourinary: Denies Hematuria or dysuria Musculoskeletal: Generalized weakness and fatigue Psychiatric: No vegetative signs of depression Endocrine: [...] % Ophthalmic Solution 1 Drop as needed. Calcium Carbonate-Vitamin D 600-400 MG-UNIT Oral Tablet [...] Release Take 1 Tablet by mouth daily. 30 Tablet 3 Ketoconazole 2 % External [...] Suspension Take 4 ml by mouth daily 300 mL 3 Apixaban Starter Pack 5 [...] before April 05, 2024. 60 Tablet 5 Current Facility-Administered Medications Medication Dose Route Frequency Provider Last Rate Last Admin vitamin b-12 (Cyanocobalamin) inj 1,000 mcg 1,000 mcg Intramuscular Q4 Weeks Kristine Kan DO 1,000 mcg at 09/02/23 1509 Social History Tobacco Use Smoking status: Never [...] From a dressing PHYSICAL EXAMINATION: General Appearance: Weak appearing patient in no acute distress BP 132/85 (BP Site: Right Arm, BP Position: Sitting, BP Cuff Size: Regular) | Pulse 79 | Temp 35.8 C (96.5 F) (Tympanic) | Wt 74.8 kg (165 lb) | SpO2 96% | BMI 27.46 kg/m | BSA 1.85 m Vitals reviewed. HEENT: No oral or pharyngeal [...] spread of the tumor. She went to [facility] and was seen by Dr. Laura for [...] was more than 10,000. Dr. Laura from [facility] recommended FOLFOX or CAPOX protocol for further [...] on Eliquis with improvement in the symptoms. Discussed with the patient in detail about diagnosis reviewed all the available blood testsand CT scan finding with them. After detailed discussion we agreed to continue her current treatment including combination of 5FU and leucovorin. PLAN: As above. She will return clinic for follow-up in 4 weeks The patient voiced understanding of all of [...] documented in this encounter Nursing Notes * Kelsi Zhu MED ASSIST - 04/11/2024 3:03 PM EDT Patient identifed by name and birthdate Do you have any concerns about pain management for today's visit? No Living Will or Advance Directive for Health Care as noted on the problem list. [facility] is a way you can talk to your provider on line through e-mail. Would you like to sign up? I can activate it for you? ALREADY ACTIVE Filed Vitals: 04/11/24 1500 BP: 132/85 Pulse: 79 Temp: 35.8 C (96.5 F) TempSrc: Tympanic SpO2: 96% Weight: 74.8 kg (165 lb) Patient was instructed to not get [...] PM EDT Hem/Onc Treatment Hematology/Oncolog y Treatment, [place] [address] [place] [address] Jessica, Chair 4 Hem Onc [place] [address] [place] [address] Carcinoma of gallbladder (HCC)*; Encounter for antineoplastic chemotherapy 05/05/2024 1:00 PM EDT Office Visit Family Practice [address], [place] [address] [facility], [place] [address] Kristine Kan DO [address] [place] [address] 05/10/2024 10:00 AM EDT Office Visit Hematology/Oncolog y [facility] [place] [address] [facility] [place] [address] Hardik Gross MD [address] [facility] [place], [place] [address] Health Maintenance Due Date Last Done Comments COVID-19 Vaccine ( season) 2024 11/08/2023, 07/10/2022, 01/06/2022, Additional history exists Influenza Vaccine (FLU shot) (#1) 2024 06/30/2023, 07/18/2022, 05/18/2021, Additional history exists Albumin/Creatinine Ratio 09/02/2024 09/02/2023, 08/0 10/2021 GFR 10/11/2024 04/10/2024, 07/0 11/2023, 03/20/2024, Additional history exists Depression Monitoring 11/09/2024 11/09/2023 CKD PHOS USE SMARTSET 30100 11/25/2024 11/25/2023, 0 12/05/2022 HbA1c 11/25/2024 11/25/2023, 11/04, 05/04/2022, Additional history exists CKD HGB USE SMARTSET 46487 04/10/202504/10, 04/10/2024, 04/04/2024, Additional history exists DXA [...] this encounter Medical Devices Implanted Type Area Toppiece Cutter Device Identifier Shelf Expiration Date Model / Serial / Lot Lens Intraoc 21.5 - [id number] - [id number] Implanted:Qty: 1 on 07/27/2019 by Tristian Araujo MD at OR [facility] Left: Eye BAUSCH & LOMB 04/02/2024 [id number] / [id number] / [id number] Lens Intraoc 21.5 - [id number] - [id number] Implanted:Qty: 1 on 08/08/2019 by Tristian Araujo MD at OR [facility] Right: Eye BAUSCH & LOMB 04/02/2024 [id number] / [id number] / [id number] Stent Axios [id number] - [id number] Implanted:Qty: 1 on 12/07/2022 by Tanya Morris MD at OR [facility] N/A: Abdomen [employer] : ENDOSCOPY [id number] 08/25/2023 [id number] / / [id number] Stent Bili Pigtail 7fr 100mm - [id number] Implanted:Qty: 1 on 12/07/2022 by Tanya Morris MD at OR [facility] N/A: Abdomen [employer] [id number] 08/03/2025 PBD-1033-0 710 / / [id number] Stent Bili Pigtail 7fr 100mm - [id number] Implanted:Qty: 1 on 12/07/2022 by Tanya Morris MD at OR [facility] N/A: Abdomen [employer] [id number] 08/03/2025 PBD-1033-0 710 / / 2YK Power Port 8fr Sngl Lumen Plas - [id number] Implanted:Qty: 1 on 12/29/2022 by Landon Hickman DO at OR [facility] Right: Chest CR BARD : PERIPHERAL VASCULAR [id number] 12/02/2023 [id number] / / [id number] Hanarostent Noncover 10dm 10cm - [id number] Implanted:Qty: 1 on 02/19/2023 by Tanya Morris MD at OR [facility] [employer] [id number] 12/31/2024 [facility]-10-100 -180 / / [id number] documented as of this encounter Visit Diagnoses Diagnosis Carcinoma of gallbladder (HCC)- Primary Malignant neoplasm of gallbladder Encounter for antineoplastic chemotherapy Carcinoma of gallbladder (HCC)- Primary Malignant neoplasm of gallbladder Encounter for antineoplastic chemotherapy documented in this encounter Advance Directives * Full Code (Latest Code Status on File) Date Activated Date Inactivated Comments 12/04/2022 10:10 PM 12/08/2022 3:55 PM This order re flects the patients wishes and were consensually agreed upon. Question Answer Comments Discussion of Advance Directives occurred with: Patient Care Teams Assembler Faucets Relationship Specialty Start Date End Date Kristine Kan DO [address] [place] [address] PCP - General Family Medicine 03/16/24 documented as of this encounter"
--- OUTSIDE RECORDS SUMMARY | 2024-06-06 23:38 | External Medical Summary | Summary of Care ---
Author Name Unknown Organization [facility] Address [address] [place] [address] Phone [phone] Care Team Providers Care Commercial Diver Name Role Phone Kristine Kan Primary Care Provider + [phone] Reason for Visit * Reason Onset Date Comments Test Results 04/11/2024 Encounter Details Date Type Department Care Team (Late st Contact Info) Description 04/11/2024 Telephone [facility] [address] [facility] [place] [address] Lizandro Motta MD [address] [facility] [place] [address] Test Results Allergies Active Allergy Reactions Criticality [...] Therapy Pack (Eliquis DVT/PE Starter Pack)Indications:Ac [place] 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 [...] mcgIndications:Vitamin B 12 deficiency 1000 mcg IM [id number] 09/02/2023 08/03/2024 Active documented as of this [...] 11/09/2023 Does the household have a re lar source of income? (Household - for ages [...] encounter Miscellaneous Notes * Telephone Encounter - Romana Sanabria RN - 04/11/2024 3:05 PM EDT ----- Message from Lizandro Motta MD sent at 04/11/2024 11:26 AM EDT ----- Renal function abnormal but stable. UA abnormal. Pending urine C/s. Continue same documented in this encounter Plan of Treatment Upcoming Encounters Date Type Department Care Team (Late st Contact Info) Description 04/12/2024 2:00 PM EDT Hem/Onc Treatment Hematology/Oncology Treatment, [place] 200 [place] [phone] Jessica, Chair 4 Hem Onc [facility] 200 [facility] [place] [address] 05/05/2024 1:00 PM EDT Office Visit Family Practice [address], [place] [address] [place] [phone] Kristine Kan DO 293 [facility], [place] [address] Health Maintenance Due Date Last Done Comments COVID-19 Vaccine (2022- season) 2024 11/08/2023, 07/10/2022, 01/06/2022, Additional history exists Influenza Vaccine (FLU shot) (#1) 2024 06/30/2023, 07/18/2022, 05/18/2021, Additional history exists Albumin/Creatinine Ratio 09/02/2024 09/02/2023, 08/0 10/2021 GFR 10/11/2024 04/10/2024, 07/0 11/2023, 03/20/2024, Additional history exists Depression Monitoring 11/09/2024 11/09/2023 CKD PHOS USE SMARTSET 27421 11/25/2024 11/25/2023, 0 12/05/2022 HbA1c 11/25/2024 11/25/2023, 11/04, 05/04/2022, Additional history exists CKD HGB USE SMARTSET 33608 04/10/202504/10, 04/10/2024, 04/04/2024, Additional history exists DXA [...] encounter Medical Devices Implanted Type Area Rn Gyn Device Identifier Shelf Expiration Date Model / Serial / Lot Lens Intraoc 21.5 - [id number] - [id number] Implanted:Qty: 1 on 07/27/2019 by Tristian Araujo MD at OR [facility] Left: Eye BAUSCH & LOMB 04/02/2024 [id number] / [id number] / [id number] Lens Intraoc 21.5 - [id number] - [id number] Implanted:Qty: 1 on 08/08/2019 by Tristian Araujo MD at OR [facility] Right: Eye BAUSCH & LOMB 04/02/2024 [id number] / [id number] / [id number] Stent Axios [id number] - [id number] Implanted:Qty: 1 on 12/07/2022 by Tanya Morris MD at OR [facility] N/A: Abdomen [employer] : ENDOSCOPY [id number] 08/25/2023 [id number] / / [id number] Stent Bili Pigtail 7fr 100mm - [id number] Implanted:Qty: 1 on 12/07/2022 by Tanya Morris MD at OR [facility] N/A: Abdomen [employer] [id number] 08/03/2025 PBD-1033-0 710 / / 2YK Stent Bili Pigtail 7fr 100mm - [id number] Implanted:Qty: 1 on 12/07/2022 by Tanya Morris MD at OR [facility] N/A: Abdomen [employer] [id number] 08/03/2025 PBD-1033-0 710 / / 2YK Power Port 8fr Sngl Lumen Plas - [id number] Implanted:Qty: 1 on 12/29/2022 by aLndon Hickman DO at OR [facility] Right: Chest CR BARD : PERIPHERAL VASCULAR [id number] 12/02/2023 [id number] / / [id number] Hanarostent Noncover 10dm 10cm - [id number] Implanted:Qty: 1 on 02/19/2023 by Tanya Morris MD at OR [facility] [employer] [id number] 12/31/2024 [facility]-10-100 -180 / / [id number] documented as of this encounter Advance Directives * Full Code (Latest Code Status on File) Date Activated Date Inactivated Comments 12/04/2022 10:10 PM 12/08/2022 3:55 PM This order re flects the patients wishes and were consensually agreed upon. Question Answer Comments Discussion of Advance Directives occurred with: Patient Care Teams Commercial Diver Relationship Specialty Start Date End Date Kristine Kan DO [address] [place] [place] [address] PCP - General Family Medicine 03/16/24 documented as of this encounter
--- OUTSIDE RECORDS SUMMARY | 2024-06-06 23:38 | External Medical Summary | Summary of Care ---
Author Name Unknown Organization [facility] Address [address] [place] [address] Phone [phone] Care Team Providers Care Pet Care Assistant Name Role Phone Kristine Kan Primary Care Provider [phone] Reason for Visit * Reason Comments Outpatient Testing Encounter Details Date Type Department Care Team (Late st Contact Info) Description 04/10/2024 9:40 AM EDT Laboratory Laboratory [facility] [address] [place] [address] [facility] Lab [facility] [address] [facility] [place] [address] Carcinoma of gallbladder (HCC); Stage 3b chronic kidney disease (HCC) Allergies Active Allergy Reactions Criticality Noted Date Comments Latex Rash 06/28/2018 From a dressing Sulfamethoxazole Edema face/lips/tongue High 023 Trimethoprim Edema face/lips/tongue High 12/03/2022 documented as of this encounter (statuses as of 04/10/2024) Medications Medication Sig Dispensed Refills Start Date End Date Status Sodium Chloride (Hypertonic) 5 % Ophthalmic Solution 1 Drop as needed. Active Calcium Carbonate-Vitamin D 600-400 MG-UNIT Oral TabletIndications:I nfiltrating ductal carcinoma of left female breast (HCC) Take 1 Tab by mouth daily. 90 Tab 3 05/07/2021 Active polyethylene glycol 3350 119 gram OR POWD Take 119 g by mouth once. 10/05 capful daily Active Magnesium 200 MG Oral [...] Tablet Therapy Pack (Eliquis DVT/PE Starter Pack)Indications:Ac [place] 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 [...] mcgIndications:Vitamin B 12 deficiency 1000 mcg IM [id number] 09/02/2023 08/03/2024 Active documented as of this encounter (statuses as of 04/10/2024) Active Problems Problem Noted Date Diagnosed Date [...] as of this encounter (statuses as of 04/10/2024) Resolved Problems Problem Noted Date Diagnosed Date [...] as of this encounter (statuses as of 04/10/2024) Immunizations Name Administration Dates Next Due COVID-19 [...] Team (Late st Contact Info) Description 04/11/2024 2:00 PM EDT Hem/Onc Treatment Hematology/Oncology Treatment, [place] 200 [facility], [place] [phone] Jessica, Chair 1 Hem Onc [address] [place] [address] 04/12/2024 2:15 PM EDT Office Visit Hematology/Oncology [facility] 200 [facility] [place] [phone] Hardik Gross MD 200 [facility] [place] [address] 05/05/2024 1:00 PM EDT Office Visit Family Practice [address], [place] 293 [facility], [place] [address] Kristine Kan DO 293 [facility], [place] [address] Pending Results Name Type Priority Associated Diagnoses Date /Time COMPREHENSIVE METABOLIC PANEL Lab STAT Carcinoma of gallbladder (HCC) 04/10/2024 9:42 AM EDT MAGNESIUM Lab STAT Carcinoma of gallbladder (HCC) 04/10/2024 9:42 AM EDT CBC WITH WBC DIFFERENTIAL Lab STAT Carcinoma of gallbladder (HCC) 04/10/2024 9:42 AM EDT PROTEIN/ CREATININE RATIO, URINE Lab Routine Stage 3b chronic kidney disease (HCC) 04/10/2024 9:42 AM EDT URINALYSIS WITH MICROSCOPIC EXAM Lab Routine Stage 3b chronic kidney disease (HCC) 04/10/2024 9:42 AM EDT CBC Lab STAT Carcinoma of gallbladder (HCC) 04/10/2024 9:42 AM EDT DIFFERENTIAL, AUTOMATED Lab STAT Carcinoma of gallbladder (HCC) 04/10/2024 9:42 AM EDT Health Maintenance Due Date Last Done Comments COVID-19 Vaccine ( season) 2024 11/08/2023, 07/10/2022, 01/06/2022, Additional history exists Influenza Vaccine (FLU shot) (#1) 2024 06/30/2023, 07/18/2022, 05/18/2021, Additional history exists Albumin/Creatinine Ratio 09/02/2024 09/02/2023, 08/0 10/2021 GFR 10/05/2024 04/04/2024, 03/04, 03/06/2024, Additional history exists Depression Monitoring 11/09/2024 11/09/2023 CKD PHOS USE SMARTSET 71304 11/25/2024 11/25/2023, 0 12/05/2022 HbA1c 11/25/2024 11/25/2023, 11/04, 05/04/2022, Additional history exists CKD HGB USE SMARTSET 70276 04/04/202504/04, 04/04/2024, 03/20/2024, Additional history exists DXA Scan 12/16/2028 12/16/2021, [...] this encounter Medical Devices Implanted Type Area Process Eng Device Identifier Shelf Expiration Date Model / Serial / Lot Lens Intraoc 21.5 - [id number] - [id number] Implanted:Qty: 1 on 07/27/2019 by Tristian Araujo MD at OR [facility] Left: Eye [employer]USCH [employer] LOMB 04/02/2024 [id number] / [id number] / [id number] Lens Intraoc 21.5 - [id number] - [id number] Implanted:Qty: 1 on 08/08/2019 by Tristian Araujo MD at OR [facility] Right: Eye BAUSCH & LOMB 04/02/2024 [id number] / [id number] / [id number] Stent Axios [id number] - [id number] Implanted:Qty: 1 on 12/07/2022 by Tanya Morris MD at OR [facility] N/A: Abdomen [employer] : ENDOSCOPY [id number] 08/25/2023 [id number] / / [id number] Stent Bili Pigtail 7fr 100mm - [id number] Implanted:Qty: 1 on 12/07/2022 by Tanya Morris MD at OR [facility] N/A: Abdomen [employer] [id number] 08/03/2025 PBD-1033-0 710 / / 2YK Stent Bili Pigtail 7fr 100mm - [id number] Implanted:Qty: 1 on 12/07/2022 by Tanya Morris MD at OR [facility] N/A: Abdomen [employer] [id number] 08/03/2025 PBD-1033-0 710 / / 2YK Power Port 8fr Sngl Lumen Plas - [id number] Implanted:Qty: 1 on 12/29/2022 by Landon Hickman DO at OR [facility] Right: Chest CR BARD : PERIPHERAL VASCULAR [id number] 12/02/2023 [id number] / / [id number] Hanarostent Noncover 10dm 10cm - [id number] Implanted:Qty: 1 on 02/19/2023 by Tanya Morris MD at OR [facility] [employer] [id number] 12/31/2024 [facility]-10-100 -180 / / [id number] documented as of this encounter Visit Diagnoses Diagnosis Carcinoma of gallbladder (HCC) Malignant neoplasm of gallbladder Stage 3b chronic kidney disease (HCC) documented in this encounter Advance Directives * Full Code (Latest Code Status on File) Date Activated Date Inactivated Comments 12/04/2022 10:10 PM 12/08/2022 3:55 PM This order re flects the patients wishes and were consensually agreed upon. Question Answer Comments Discussion of Advance Directives occurred with: Patient Care Teams Pet Care Assistant Relationship Specialty Start Date End Date Kristine Kan DO [address] [place] [address] PCP - General Family Medicine 03/16/24 documented as of this encounter
--- OUTSIDE RECORDS SUMMARY | 2024-06-06 23:38 | External Medical Summary ---
Author Name Unknown Address Unknown Organization K09:[facility] [address] [place] [address] Laboratory Report Ordering Provider Test Date Status TASHA MANN 04/10/2024 09:42:02 Final Observation Date Value Abnormality Reference (Units ) Status SYNC LEUKOCYTES IN BLOOD BY AUTOMATED COUNT 04/10/2024 09:42:02 8.75 4.00-10.80 (K/uL) Final Neutrophils/100 leukocytes in Blood by Manual count 04/10/2024 09:42:02 53.0 40.0-75.0 (%) Final Lymphocytes/100 leukocytes in Blood by Manual count 04/10/2024 09:42:02 38.0 18.0-42.0 (%) Final Monocytes/100 leukocytes in Blood by Manual count 04/10/2024 09:42:02 7.0 1.0-11.0 (%) Final Eosinophils/100 leukocytes in Blood by Manual count 04/10/2024 09:42:02 1.0 0.0-6.0 (%) Final Metamyelocytes/100 leukocytes in Blood by Manual count 04/10/2024 09:42:02 1.0 Above high normal <=0.0 (%) Final Neutrophils [#/volume] in Blood by Manual count 04/10/2024 09:42:02 4.64 1.80-7.70 (K/uL) Final Lymphocytes [#/volume] in Blood by Manual count 04/10/2024 09:42:02 3.33 1.00-4.80 (K/uL) Final Monocytes [#/volume] in Blood by Manual count 04/10/2024 09:42:02 0.61 0.00-1.10 (K/uL) Final Eosinophils [#/volume] in Blood by Manual count 04/10/2024 09:42:02 0.09 0.00-0.70 (K/uL) Final Metamyelocytes [#/volume] in Blood by Manual count 04/10/2024 09:42:02 0.09 Above high normal <=0.00 (K/uL) Final Nucleated erythrocytes/100 leukocytes [Ratio] in Blood by Automated count 04/10/2024 09:42:02 Final Performing Location [facility] [address] [place] [address]
--- OUTSIDE RECORDS SUMMARY | 2024-06-06 23:38 | External Medical Summary ---
Author Name Unknown Address Unknown Organization K09:[facility] [place] [address] Laboratory Report Ordering Provider Test Date Status TASHA MANN 04/10/2024 09:42:02 Final Observation Date Value Abnormality Reference (Units ) Status WBC, Total 04/10/2024 09:42:02 8.75 4.00-10.8 0 (K/uL) Final RBC 04/10/2024 09:42:02 2.82 3.85-5.15 (M/uL) Final Hemoglobin 04/10/2024 09:42:02 9.5 Below low normal 12 .0-15.3 (g/dL) Final HCT 04/10/2024 09:42:02 30.5 Below low normal 36. 0-45.2 (%) Final MCV 04/10/2024 09:42:02 108.2 81.5-97.5 (fL) Final MCH 04/10/2024 09:42:02 33.7 27.0-34.0 (pg) Final MCHC 04/10/2024 09:42:02 31.1 32.0-36.0 (g/dL) Final RDW 04/10/2024 09:42:02 18.1 11.5-15.5 (%) Final Platelets 04/10/2024 09:42:02 227 140-400 (K /uL) Final MPV 04/10/2024 09:42:02 8.8 6.6-11.1 ( fL) Final Performing Location [facility] [place] [address]
--- OUTSIDE RECORDS SUMMARY | 2024-06-06 23:38 | External Medical Summary ---
Author Name Unknown Address Unknown Organization K09:[facility] [place] [address] Laboratory Report Ordering Provider Test Date Status ABIEL ANDREWS 04/10/2024 09:42:02 Final Observation Date Value Abnormality Reference (Units ) Status Color of Urine by Auto 04/10/2024 09:42:02 Yellow Light Yellow, Yellow, Dark Yellow Final Microscopic results may be i naccurate due to inadequate urine volume.
null Clarity, Urine 04/10/2024 09:42:02 Slightly Cloudy Abnormal Clear Final Glucose [Mass/volume] in Urine by Automated test strip 04/10/2024 09:42:02 Negative Negative (mg/dL) Final Bilirubin.total [Presence] in Urine by Automated test strip 04/10/2024 09:42:02 Negative Negative Final Ketones [Mass/volume] in Urine by Automated test strip 04/10/2024 09:42:02 Negative Negative (mg/dL) Final Specific gravity, Urine 04/10/2024 09:42:02 1.020 1.003-1.030 Final Hemoglobin [Presence] in Urine by Automated test strip 04/10/2024 09:42:02 Trace Abnormal Negative Final pH, Urine 04/10/2024 09:42:02 5.5 5.0-7.5 (Units) Final Protein [Mass/volume] in Urine by Automated test strip 04/10/2024 09:42:02 30 Abnormal Negative (mg/dL) Final Urobilinogen [Mass/volume] in Urine by Automated test strip 04/10/2024 09:42:02 0.2 0.2, 1.0 (mg/dL) Final Nitrite [Presence] in Urine by Automated test strip 04/10/2024 09:42:02 Negative Negative Final Leukocyte esterase [Presence] in Urine by Automated test strip 04/10/2024 09:42:02 Moderate Abnormal Negative Final RBC, Urine 04/10/2024 09:42:02 3-5 Abnormal 0-2 (/HPF) Final WBC, Urine 04/10/2024 09:42:02 30-49 Abnormal 0-2 (/HPF) Final Bacteria [#/area] in Urine sediment by Microscopy high power field 04/10/2024 09:42:02 26-50 Abnormal 0-25 (/HPF) Final Performing Location [facility] [address] [place] [address]
--- OUTSIDE RECORDS SUMMARY | 2024-06-06 23:38 | External Medical Summary ---
Author Name Unknown Address Unknown Organization K01:[facility] [address] [place] [address] Laboratory Report Ordering Provider Test Date Status ABIEL ANDREWS 04/10/2024 09:42:02 Final Normal: <150 mg/ g creatinine
High: 150-500 mg/g creatinine
Very High: >500 mg/g creatinine
Nephrotic: >3000 mg/g creatinine Observation Date Value Abnormality Reference (Units ) Status Protein/Creatinine [Ratio] in Urine 04/10/2024 09:42:02 211 Above high normal <150 (mg/g ) Final Protein, Urine 04/10/2024 09:42:02 34 (mg/dL) Final Creatinine, Urine 04/10/2024 09:42:02 161 (mg/dL) Final Performing Location [facility] - [address] [place] [address]
--- OUTSIDE RECORDS SUMMARY | 2024-06-06 23:38 | External Medical Summary | Summary of Care ---
Author Name Unknown Organization [facility] Address [address] [place] [address] Phone [phone] Care Team Providers Care Prize Fighter Name Role Phone Kristine Kan Primary Care Provider Encounter Details Date Type Department Care Team (Late st Contact Info) Description 04/12/2024 Orders Only Hematology/Oncology [facility] Jessica [place] [address] [place] [phone] Hardik Gross MD [address] [place] [address] Carcinoma of gallbladder (HCC)* Allergies Active Allergy [...] mcgIndications:Vitamin B 12 deficiency 1000 mcg IM [id number] 09/02/2023 08/03/2024 Active Fluorouracil (5-Fu) 4,475 mg in NSS 138 mL infusion 4475 mg IV CONTINUOUS 04/12/2024 04/14/2024 Active documented as of this encounter (statuses [...] PM EDT Office Visit Family Practice [address] [place] [address] [address] [place] [address] Kristine Kan [address] [place] [address] 05/10/2024 10:00 AM EDT Office Visit Hematology/Oncology [facility] 200 [facility] [place] [address] Hardik Gross MD 200 [facility] [place] [address] Scheduled Orders Name Type Priority Associated Diagnoses Orde r Schedule CBC WITH WBC DIFFERENTIAL Lab STAT Carcinoma of gallbladder (HCC) Every 2 Weeks for 26 Occurrences starting 04/12/2024 until 04/12/2025 COMPREHENSIVE METABOLIC PANEL Lab STAT Carcinoma of gallbladder (HCC) Every 2 Weeks for 26 Occurrences starting 04/12/2024 until 04/12/2025 MAGNESIUM Lab STAT Carcinoma of gallbladder (HCC) Every 2 Weeks for 26 Occurrences starting 04/12/2024 until 04/12/2025 Health Maintenance Due Date Last Done Comments COVID-19 Vaccine ( season) 2024 11/08/2023, 07/10/2022, 01/06/2022, Additional history exists Influenza Vaccine (FLU shot) (#1) 2024 06/30/2023, 07/18/2022, 05/18/2021, Additional history exists Albumin/Creatinine Ratio 09/02/2024 09/02/2023, 08/0 10/2021 GFR 10/11/2024 04/10/2024, 07/0 11/2023, 03/20/2024, Additional history exists Depression Monitoring 11/09/2024 11/09/2023 CKD PHOS USE SMARTSET 82792 11/25/2024 11/25/2023, 0 12/05/2022 HbA1c 11/25/2024 11/25/2023, 11/04, 05/04/2022, Additional history exists CKD HGB USE SMARTSET 05727 04/10/202504/10, 04/10/2024, 04/04/2024, Additional history exists DXA [...] this encounter Medical Devices Implanted Type Area Psychology Instructor Device Identifier Shelf Expiration Date Model / Serial / Lot Lens Intraoc 21.5 - [id number] - [id number] Implanted:Qty: 1 on 07/27/2019 by Tristian Araujo MD at OR [facility] Left: Eye BAUSCH & LOMB 04/02/2024 [id number] / [id number] / [id number] Lens Intraoc 21.5 - [id number] - [id number] Implanted:Qty: 1 on 08/08/2019 by Tristian Araujo MD at OR [facility] Right: Eye BAUSCH & LOMB 04/02/2024 [id number] / [id number] / [id number] Stent Axios [id number] - [id number] Implanted:Qty: 1 on 12/07/2022 by Tanya Morris MD at OR [facility] N/A: Abdomen [employer] : ENDOSCOPY [id number] 08/25/2023 [id number] / / [id number] Stent Bili Pigtail 7fr 100mm - [id number] Implanted:Qty: 1 on 12/07/2022 by Tanya Morris MD at OR [facility] N/A: Abdomen [employer] [id number] 08/03/2025 PBD-1033-0 710 / / [id number] Stent Bili Pigtail 7fr 100mm - [id number] Implanted:Qty: 1 on 12/07/2022 by Tanya Morris MD at OR [facility] N/A: Abdomen [employer] [id number] 08/03/2025 PBD-1033-0 710 / / 2YK Power Port 8fr Sngl Lumen Plas - [id number] Implanted:Qty: 1 on 12/29/2022 by Landon Hickman DO at OR [facility] Right: Chest CR BARD : PERIPHERAL VASCULAR [id number] 12/02/2023 [id number] / / [id number] Hanarostent Noncover 10dm 10cm - [id number] Implanted:Qty: 1 on 02/19/2023 by Tanya Morris MD at OR [facility] [employer] [id number] 12/31/2024 SHS-10-100 -180 / / [id number] documented as of this encounter Visit Diagnoses [...] Advance Directives occurred with: Patient Care Teams Prize Fighter Relationship Specialty Start Date End Date Kristine Kan DO [address] [place] [address] PCP - General Family Medicine 03/16/24 documented as of this encounter
--- OUTSIDE RECORDS SUMMARY | 2024-06-06 23:38 | External Medical Summary ---
Author Name Unknown Address Unknown Organization K01:[facility] [place] - [address] [facility] [address] Laboratory Report Ordering Provider Test Date Status ABIEL ANDREWS 04/11/2024 15:42:29 Final Please add to existing speci men if have enough volume

<10,000 colonies/ml mixed normal veronica Observation Date Value Abnormality Reference (Units ) Status Bacteria identified in Specimen by Culture 04/11/2024 15:42:29 [id number]^ESCHE RICHIA COLI Abnormal Final >100,000 colonies/mL Escheri kinga coli Performing Location [facility] [place] - [address] [facility] [address] Ordering Provider Test Date Status ABIEL ANDREWS 04/11/2024 15:42:29 Final Observation Date Value Abnormality Reference (Units ) Status Ampicillin 04/11/2024 15:42:29 <=2 Susceptible Final Cefazolin 04/11/2024 15:42:29 <=4 Susceptible Final Cefepime susceptibility 04/11/2024 15:42:29 <=1 Susceptible Final Ceftriaxone suceptibility 04/11/2024 15:42:29 <=1 Susceptible Final Ciprofloxacin 04/11/2024 15:42:29 <=0.25 Susceptible Final Due to serious side effects, the FDA has advised against using Ciprofloxacin to treat uncomplicated UTIs and respiratory tract infections unless there are no alternative treatment options. Gentamicin susceptibility 04/11/2024 15:42:29 <=1 Susc eptible Final Nitrofurantoin susceptibility 04/11/2024 15:42:29 <=16 Susceptible Final Piperacillin + Tazobactamsusceptibility 04/11/2024 15:42:29 <=4 Susceptible Final TMP-SMZ susceptibility 04/11/2024 15:42:29 <=20 Suscept ible Final Test: Culture, Urine, Quanti tative
Specimen Source: Urine, Clean Catch
Specimen Type: Urine
Specimen Date: 04/11/20241541
Result Date: 04/13/20241546
Result Status: Final result
Abnormal: Yes
Resulting Lab: [facility]
[address]
[facility] [address]

CULTURE

>100,000 colonies/mL Escherichia coli (Abnormal)

<10,000 colonies/ml mixed normal veronica

SUSCEPTIBILITY

Escherichia coli
METHOD MICROBROTH
DILUTIONS

AMPICILLIN <=2 Susceptible
CEFAZOLIN <=4 Susceptible
CEFEPIME <=1 Susceptible
CEFTRIAXONE <=1 Susceptible
CIPROFLOXACIN <=0.25 Susceptible
[1]
GENTAMICIN <=1 Susceptible
NITROFURANTOIN <=16 Susceptible
PIPERACILLIN TAZOBACTAM <=4 Susceptible
TRIMETH/SULFAMETHOXAZOLE <=20 Susceptible

[1] Due to serious side effects, the FDA has advised against using
Ciprofloxacin to treat uncomplicated UTIs and respiratory tract infections
unless there are no alternative treatment options.

null Performing Location [facility] [place] - [address] [facility] [address]
--- OUTSIDE RECORDS SUMMARY | 2024-06-06 23:38 | External Medical Summary ---
Author Name Unknown Address Unknown Organization K09:[facility] [place] [address] Laboratory Report Ordering Provider Test Date Status TASHA MANN 04/10/2024 09:42:02 Final Observation Date Value Abnormality Reference (Units ) Status Magnesium 04/10/2024 09:42:02 1.9 1.5-2.6 (m g/dL) Final Performing Location [facility] [place] [address]
--- OUTSIDE RECORDS SUMMARY | 2024-06-06 23:38 | External Medical Summary | Summary of Care ---
Author Name Unknown Organization [facility] Address [address] [place] [address] Phone [phone] Care Team Providers Care Head Knitting Machine Fixer Name Role Phone Kristine Kan Primary Care Provider [phone] Reason for Visit * Reason Onset Date Comments Test Results 04/10/2024 Encounter Details Date Type Department Care Team (Late st Contact Info) Description 04/10/2024 Telephone [facility] 200 [facility] [place] [address] Lizandro Motta MD 200 [facility] [place] [address] Test Results Allergies Active Allergy Reactions Criticality [...] Tablet Therapy Pack (Eliquis DVT/PE Starter Pack)Indications:Ac [place] 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 [...] mcgIndications:Vitamin B 12 deficiency 1000 mcg IM [id number] 09/02/2023 08/03/2024 Active documented as of this [...] encounter Miscellaneous Notes * Telephone Encounter - Jeanette Diana LPN - 04/10/2024 2:59 PM EDT Pt is aware will return to [facility] in AM to provide urine culture * Telephone Encounter - Jeanette Diana LPN - 04/10/2024 2:54 PM EDT Order placed in [employer] system for Urine C&S * Telephone Encounter - Jeanette Diana LPN - 04/10/2024 2:49 PM EDT Looks like it was done at [facility] RN will attempt to add * Telephone Encounter - Jeanette Diana LPN - 04/10/2024 2:42 PM EDT ----- Message from Lizandro Motta MD sent at 04/10/2024 2:35 PM EDT ----- Please add urine culture on the sample. Given her immunocompromised status she is quite high risk for UTI documented in this encounter Plan of Treatment Upcoming Encounters Date Type Department Care Team (Late st Contact Info) Description 04/11/2024 2:00 PM EDT Hem/Onc Treatment Hematology/Oncology Treatment, [place] [address] [place] [phone] [address], Chair 1 Hem Onc [facility] 200 [place] [address] 04/12/2024 2:15 PM EDT Office Visit Hematology/Oncology [facility] 200 [place] [address] Hardik Gross MD 200 [place] [address] 05/05/2024 1:00 PM EDT Office Visit Family Practice [address], [place] [address] [place] [address] Kristine Kan DO [address] [place] [address] Scheduled Orders Name Type Priority Associated Diagnoses Orde r Schedule CULTURE, URINE, QUANTITATIVE Lab Routine Chronic kidney disease, stage 3b (HCC) Dysuria Expected: 04/10/2024 (Approximate), Expires: 04/10/2025 Health Maintenance Due Date Last Done Comments COVID-19 Vaccine ( season) 2024 11/08/2023, 07/10/2022, 01/06/2022, Additional history exists Influenza Vaccine (FLU shot) (#1) 2024 06/30/2023, 07/18/2022, 05/18/2021, Additional history exists Albumin/Creatinine Ratio 09/02/2024 09/02/2023, 08/0 10/2021 GFR 10/11/2024 04/10/2024, 07/0 11/2023, 03/20/2024, Additional history exists Depression Monitoring 11/09/2024 11/09/2023 CKD PHOS USE SMARTSET 88951 11/25/2024 11/25/2023, 0 12/05/2022 HbA1c 11/25/2024 11/25/2023, 11/04, 05/04/2022, Additional history exists CKD HGB USE SMARTSET 28926 04/10/202504/10, 04/10/2024, 04/04/2024, Additional history exists DXA [...] this encounter Medical Devices Implanted Type Area Tank Insulator Rubber Device Identifier Shelf Expiration Date Model / Serial / Lot Lens Intraoc 21.5 - [id number] - [id number] Implanted:Qty: 1 on 07/27/2019 by Tristian Araujo MD at OR [facility] Left: Eye BAUSCH & LOMB 04/02/2024 [id number] / [id number] / [id number] Lens Intraoc 21.5 - [id number] - [id number] Implanted:Qty: 1 on 08/08/2019 by Tristian Araujo MD at OR [facility] Right: Eye BAUSCH & LOMB 04/02/2024 [id number] / [id number] / [id number] Stent Axios [id number] - [id number] Implanted:Qty: 1 on 12/07/2022 by Tanya Morris MD at OR [facility] N/A: Abdomen [employer] : ENDOSCOPY [id number] 08/25/2023 [id number] / / [id number] Stent Bili Pigtail 7fr 100mm - [id number] Implanted:Qty: 1 on 12/07/2022 by Tanya Morris MD at OR [facility] N/A: Abdomen [employer] [id number] 08/03/2025 PBD-1033-0 710 / / [id number] Stent Bili Pigtail 7fr 100mm - [id number] Implanted:Qty: 1 on 12/07/2022 by Tanya Morris MD at OR [facility] N/A: Abdomen [employer] [id number] 08/03/2025 PBD-1033-0 710 / / 2YK Power Port 8fr Sngl Lumen Plas - [id number] Implanted:Qty: 1 on 12/29/2022 by Landon Hickman DO at OR [facility] Right: Chest CR BARD : PERIPHERAL VASCULAR [id number] 12/02/2023 [id number] / / [id number] Hanarostent Noncover 10dm 10cm - [id number] Implanted:Qty: 1 on 02/19/2023 by Tanya Morris MD at OR [facility] [employer] [id number] 12/31/2024 SHS-10-100 -180 / / [id number] documented as of this encounter Visit Diagnoses Diagnosis Chronic kidney disease, stage 3b (HCC)- Primary Dysuria documented in this encounter Advance Directives * Full Code (Latest Code Status on File) Date Activated Date Inactivated Comments 12/04/2022 10:10 PM 12/08/2022 3:55 PM This order re flects the patients wishes and were consensually agreed upon. Question Answer Comments Discussion of Advance Directives occurred with: Patient Care Teams Head Knitting Machine Fixer Relationship Specialty Start Date End Date Kristine Kan DO [address] [place] [address] PCP - General Family Medicine 03/16/24 documented as of this encounter
--- OUTSIDE RECORDS SUMMARY | 2024-06-06 23:38 | External Medical Summary | Summary of Care ---
Author Name Unknown Organization [facility] Address [address] [place] [address] Phone [phone] Care Team Providers Care Lending Consultant Name Role Phone Kristine Kan Primary Care Provider [phone] Encounter Details Date Type Department Care Team (Late st Contact Info) Description 04/11/2024 Orders Only Hematology/Oncology [facility] Jessica [place] [address] [facility] [place] [address] Hardik Gross MD [address] [place] [address] Allergies Active Allergy Reactions Criticality Noted Date [...] Tablet Therapy Pack (Eliquis DVT/PE Starter Pack)Indications:Ac [place] deep vein thrombosis (DVT) of popliteal [...] mcgIndications:Vitamin B 12 deficiency 1000 mcg IM [id number] 09/02/2023 08/03/2024 Active documented as of this [...] 04/11/2024 3:00 PM EDT Office Visit Hematology/Oncology [facility] [address] [facility] [place] [phone] Hardik Gross MD [address] [facility] [place] [address] 04/12/2024 2:00 PM EDT Hem/Onc Treatment Hematology/Oncology Treatment, [place] [address] [facility] [address] [place] [phone] Park, Chair [address] Hem On[address] [facility] [address] [facility] [place] [address] 05/05/2024 1:00 PM EDT Office Visit Family Practice [address], [place] 293 [facility], [place] [address] Kristine Kan DO 293 [facility], [place] [address] Health Maintenance Due Date Last Done Comments COVID-19 Vaccine ( season) 2024 11/08/2023, 07/10/2022, 01/06/2022, Additional history exists Influenza Vaccine (FLU shot) (#1) 2024 06/30/2023, 07/18/2022, 05/18/2021, Additional history exists Albumin/Creatinine Ratio 09/02/2024 09/02/2023, 08/0 10/2021 GFR 10/11/2024 04/10/2024, 07/0 11/2023, 03/20/2024, Additional history exists Depression Monitoring 11/09/2024 11/09/2023 CKD PHOS USE SMARTSET 62762 11/25/2024 11/25/2023, 0 12/05/2022 HbA1c 11/25/2024 11/25/2023, 11/04, 05/04/2022, Additional history exists CKD HGB USE SMARTSET 13055 04/10/202504/10, 04/10/2024, 04/04/2024, Additional history exists DXA [...] this encounter Medical Devices Implanted Type Area Pocket Closer Device Identifier Shelf Expiration Date Model / Serial / Lot Lens Intraoc 21.5 - [id number] - [id number] Implanted:Qty: 1 on 07/27/2019 by Tristian Araujo MD at OR [facility] Left: Eye BAUSCH & LOMB 04/02/2024 [id number] / [id number] / [id number] Lens Intraoc 21.5 - [id number] - [id number] Implanted:Qty: 1 on 08/08/2019 by Tristian Araujo MD at OR [facility] Right: Eye BAUSCH & LOMB 04/02/2024 [id number] / [id number] / [id number] Stent Axios [id number] - [id number] Implanted:Qty: 1 on 12/07/2022 by Tanya Morris MD at OR [facility] N/A: Abdomen [employer] : ENDOSCOPY [id number] 08/25/2023 [id number] / / [id number] Stent Bili Pigtail 7fr 100mm - [id number] Implanted:Qty: 1 on 12/07/2022 by Tanya Morris MD at OR [facility] N/A: Abdomen [employer] [id number] 08/03/2025 PBD-1033-0 710 / / [id number] Stent Bili Pigtail 7fr 100mm - [id number] Implanted:Qty: 1 on 12/07/2022 by Tanya Morris MD at OR [facility] N/A: Abdomen [employer] [id number] 08/03/2025 PBD-1033-0 710 / / 2YK Power Port 8fr Sngl Lumen Plas - [id number] Implanted:Qty: 1 on 12/29/2022 by Landon Hickman DO at OR [facility] Right: Chest CR BARD : PERIPHERAL VASCULAR [id number] 12/02/2023 [id number] / / [id number] Hanarostent Noncover 10dm 10cm - [id number] Implanted:Qty: 1 on 02/19/2023 by Tanya Morris MD at OR [facility] [employer] [id number] 12/31/2024 SHS-10-100 -180 / / [id number] documented as of this encounter Advance Directives * Full Code (Latest Code Status on File) Date Activated Date Inactivated Comments 12/04/2022 10:10 PM 12/08/2022 3:55 PM This order re flects the patients wishes and were consensually agreed upon. Question Answer Comments Discussion of Advance Directives occurred with: Patient Care Teams Lending Consultant Relationship Specialty Start Date End Date Kristine Kan DO [address] [facility] [place] [address] PCP - General Family Medicine 03/16/24 documented as of this encounter
--- OUTSIDE RECORDS SUMMARY | 2024-06-06 23:38 | External Medical Summary | Summary of Care ---
Author Name Unknown Organization [facility] Address [address] [place] [address] Phone [phone] Care Team Providers Care Clinical Study Manager Name Role Phone Kristine Kan Primary Care Provider [phone] Reason for Visit * Reason Comments Outpatient Testing Encounter Details Date Type Department Care Team (Late st Contact Info) Description 04/11/2024 3:40 PM EDT Laboratory Laboratory [facility] [address] [place] [phone] [facility] 200 [facility] [place] [address] Chronic kidney disease, stage 3b (HCC); Dysuria Allergies Active Allergy Reactions Criticality Noted Date [...] mcgIndications:Vitamin B 12 deficiency 1000 mcg IM [id number] 09/02/2023 08/03/2024 Active documented as of this [...] PM EDT Hem/Onc Treatment Hematology/Oncolog y Treatment, [place] [address] [place] [phone] Jessica, Chair 4 Hem Onc [facility] [address] [place] [address] Carcinoma of gallbladder (HCC)*; Encounter for antineoplastic chemotherapy 05/05/2024 1:00 PM EDT Office Visit Family Practice [address] [facility] 293 [place] [address] Kristine Kan DO 293 [place] [address] 05/10/2024 10:00 AM EDT Office Visit Hematology/Oncolog y [facility] Jessica [place] [address] [place] [phone] Hardik Gross MD [address] [place] [address] Pending Results Name Type Priority Associated Diagnoses Date /Time CULTURE, URINE, QUANTITATIVE Lab Routine Chronic kidney disease, stage 3b (HCC) Dysuria 04/11/2024 3:42 PM EDT Health Maintenance Due Date Last Done Comments COVID-19 Vaccine ( season) 2024 11/08/2023, 07/10/2022, 01/06/2022, Additional history exists Influenza Vaccine (FLU shot) (#1) 2024 06/30/2023, 07/18/2022, 05/18/2021, Additional history exists Albumin/Creatinine Ratio 09/02/2024 09/02/2023, 08/0 10/2021 GFR 10/11/2024 04/10/2024, 07/0 11/2023, 03/20/2024, Additional history exists Depression Monitoring 11/09/2024 11/09/2023 CKD PHOS USE SMARTSET 64846 11/25/2024 11/25/2023, 0 12/05/2022 HbA1c 11/25/2024 11/25/2023, 11/04, 05/04/2022, Additional history exists CKD HGB USE SMARTSET 94617 04/10/202504/10, 04/10/2024, 04/04/2024, Additional history exists DXA [...] this encounter Medical Devices Implanted Type Area Vice President Of Brand Management Device Identifier Shelf Expiration Date Model / Serial / Lot Lens Intraoc 21.5 - [id number] - [id number] Implanted:Qty: 1 on 07/27/2019 by Tristian Araujo MD at OR [facility] Left: Eye BAUSCH & LOMB 04/02/2024 [id number] / [id number] / [id number] Lens Intraoc 21.5 - [id number] - [id number] Implanted:Qty: 1 on 08/08/2019 by Tristian Araujo MD at OR [facility] Right: Eye BAUSCH & LOMB 04/02/2024 [id number] / [id number] / [id number] Stent Axios [id number] - [id number] Implanted:Qty: 1 on 12/07/2022 by Tanya Morris MD at OR [facility] N/A: Abdomen [employer] : ENDOSCOPY [id number] 08/25/2023 [id number] / / [id number] Stent Bili Pigtail 7fr 100mm - [id number] Implanted:Qty: 1 on 12/07/2022 by Tanya Morris MD at OR [facility] N/A: Abdomen [employer] [id number] 08/03/2025 PBD-1033-0 710 / / [id number] Stent Bili Pigtail 7fr 100mm - [id number] Implanted:Qty: 1 on 12/07/2022 by Tanya Morris MD at OR [facility] N/A: Abdomen [employer] [id number] 08/03/2025 PBD-1033-0 710 / / 2YK Power Port 8fr Sngl Lumen Plas - [id number] Implanted:Qty: 1 on 12/29/2022 by Landon Hickman DO at OR [facility] Right: Chest CR BARD : PERIPHERAL VASCULAR [id number] 12/02/2023 [id number] / / [id number] Hanarostent Noncover 10dm 10cm - [id number] Implanted:Qty: 1 on 02/19/2023 by Tanya Morris MD at OR [facility] [employer] [id number] 12/31/2024 [facility]-10-100 -180 / / [id number] documented as of this encounter Visit Diagnoses Diagnosis Chronic kidney disease, stage 3b (HCC) Dysuria Carcinoma of gallbladder (HCC)- Primary Malignant neoplasm of gallbladder Encounter for antineoplastic chemotherapy documented in this encounter Advance Directives * Full Code (Latest Code Status on File) Date Activated Date Inactivated Comments 12/04/2022 10:10 PM 12/08/2022 3:55 PM This order re flects the patients wishes and were consensually agreed upon. Question Answer Comments Discussion of Advance Directives occurred with: Patient Care Teams Clinical Study Manager Relationship Specialty Start Date End Date Kristine Kan DO [address] [place] [address] PCP - General Family Medicine 03/16/24 documented as of this encounter
--- OUTSIDE RECORDS SUMMARY | 2024-06-06 23:39 | External Medical Summary ---
Author Name Unknown Address Unknown Organization K09:[facility] [place] [address] Laboratory Report Ordering Provider Test Date Status TASHA MANN 04/04/2024 08:25:33 Final Observation Date Value Abnormality Reference (Units ) Status Nucleated erythrocytes/100 leukocytes [Ratio] in Blood by Automated count 04/04/2024 08:25:33 Final Performing Location [facility] [place] [place] [address]
--- OUTSIDE RECORDS SUMMARY | 2024-06-06 23:39 | External Medical Summary | Summary of Care ---
Author Name Unknown Organization [facility] Address [address] [place] [address] Phone [phone] Care Team Providers Care Calibration Checker Name Role Phone Kristine Kan Primary Care Provider [phone] Encounter Details Date Type Department Care Team (Late st Contact Info) Description 01/04/2024 Orders Only [facility] [address] [place] [address] Henrry Mosher MD [address] [place] [address] Allergies Active Allergy Reactions Criticality Noted Date Comments Latex Rash 06/28/2018 From a dressing Sulfamethoxazole Edema face/lips/tongue High 023 Trimethoprim Edema face/lips/tongue High 12/03/2022 documented as of this encounter (statuses as of 04/03/2024) Medications Medication Sig Dispensed Refills Start Date [...] Active Additional Information Patient not taking.Reported on 03/21/2024 Nirmatrelvir&Ritona vir 150/100 10 x 150 MG & 10 x 100MG Oral Tablet Therapy Pack (Paxlovid (150/100)) Take 1 pink tablet of Nirmatrelvir and 1 white tablet of Ritonavir two times a day by mouth. 20 Tablet 08/19/2023 Active Additional Information Patient not taking.Reported on 09/02/2023 Ketoconazole 2 % External Cream Apply to [...] the morning. 90 Tablet 3 12/29/2023 Active Hospital, Clinic, or Other Facility Administered Medication Ordered Dose Route Frequency Start Date End Date Status vitamin b-12 (Cyanocobalamin) inj 1,000 mcgIndications:Vitam in B 12 deficiency 1000 mcg IM [id number] 09/02/2023 08/03/2024 Active Fluorouracil (5-Fu) 4,475 mg in NSS 138 mL infusion 4475 mg IV CONTINUOUS 02/07/2024 02/09/2024 Discontinued Fluorouracil (5-Fu) 4,475 mg in NSS 138 mL infusion 4475 mg IV CONTINUOUS 03/06/2024 03/08/2024 Discontinued Fluorouracil (5-Fu) 4,475 mg in NSS 138 mL infusion 4475 mg IV CONTINUOUS 03/21/2024 03/23/2024 Ended documented as of this encounter (statuses as of 04/03/2024) Active Problems Problem Noted Date Diagnosed Date [...] as of this encounter (statuses as of 04/03/2024) Resolved Problems Problem Noted Date Diagnosed Date [...] as of this encounter (statuses as of 04/03/2024) Immunizations Name Administration Dates Next Due COVID-19 [...] Care Team (Late st Contact Info) Description 04/04/2024 8:20 AM EDT Laboratory Laboratory [facility] [place] [address] [place] [phone] Jessica [place] [address] [address] [facility] [place] [address] 04/04/2024 3:20 PM EDT Office Visit Nephrology, [facility] Jessica [address] [place] [address] Lizandro Motta MD [address] [place] [address] 04/05/2024 1:00 PM EDT Hem/Onc Treatment Hematology/Oncology [facility] [address] [place], [place] [phone] Jessica, Chair 4 Hem Onc [place] [address] [place] [address] 04/12/2024 2:15 PM EDT Office Visit Hematology/Oncology [facility] [place] [address] [place] [phone] Hardik Gross MD [address] [place] [address] 05/05/2024 1:00 PM EDT Office Visit Family Practice 65 [facility] [place] [address] [facility], [place] [address] Kristine Kan, DO [address] [place] [address] Health Maintenance Due Date Last Done Comments COVID-19 Vaccine (2022- season) 2024 11/08/2023, 07/10/2022, 01/06/2022, Additional history exists Influenza Vaccine (FLU shot) (#1) 2024 06/30/2023, 07/18/2022, 05/18/2021, Additional history exists Albumin/Creatinine Ratio 09/02/2024 09/02/2023, 08/0 10/2021 GFR 09/19/2024 03/20/2024, 0612/2023, 02/29/2024, Additional history exists Depression Monitoring 11/09/2024 11/09/2023 CKD PHOS USE SMARTSET 69852 11/25/2024 11/25/2023, 0 12/05/2022 HbA1c 11/25/2024 11/25/2023, 11/04, 05/04/2022, Additional history exists CKD HGB USE SMARTSET 70221 03/20/202503/20, 03/20/2024, 03/06/2024, Additional history exists DXA Scan 12/16/2028 12/16/2021, 12/02, 10/08/2014, Additional history exists DTaP,Tdap,and Td Vaccines (4 - Td or Tdap) 02/07/2030 02/08/2020, 12/18/2009, 12/18/2009, Additional history exists Hepatitis B Completed 01/04/2008, 12/2006, 06/01/2007 Pneumococcal Vaccine: 65+ Years Completed 07/05/2018, 02/04/2017 Zoster Vaccines Completed 09/22/2020, 07/04, 08/20/2009, Additional history exists GARDASIL-HPV IMMUNIZATION SERIES Aged Out No longer eligible based on patient's age to complete this topic MENINGOCOCCAL (MENACTRA/MENVEO) Aged Out No longer eligible based on patient's age to complete this topic documented as of this encounter Medical Devices Implanted Type Area Plate Finisher Device Identifier Shelf Expiration Date Model / Serial / Lot Lens Intraoc 21.5 - [id number] - [id number] Implanted:Qty: 1 on 07/27/2019 by Tristian Araujo MD at OR [facility] Left: Eye BAUSCH & LOMB 04/02/2024 [id number] / [id number] / [id number] Lens Intraoc 21.5 - [id number] - [id number] Implanted:Qty: 1 on 08/08/2019 by Tristian Araujo MD at OR [facility] Right: Eye BAUSCH & LOMB 04/02/2024 [id number] / [id number] / [id number] Stent Axios [id number] - [id number] Implanted:Qty: 1 on 12/07/2022 by Tanya Morris MD at OR [facility] N/A: Abdomen [employer] : ENDOSCOPY [id number] 08/25/2023 [id number] / / [id number] Stent Bili Pigtail 7fr 100mm - [id number] Implanted:Qty: 1 on 12/07/2022 by Tanya Morris MD at OR [facility] N/A: Abdomen [employer] [id number] 08/03/2025 PBD-1033-0 710 / / [id number] Stent Bili Pigtail 7fr 100mm - [id number] Implanted:Qty: 1 on 12/07/2022 by Tanya Morris MD at OR [facility] N/A: Abdomen [employer] [id number] 08/03/2025 PBD-1033-0 710 / / 2YK Power Port 8fr Sngl Lumen Plas - [id number] Implanted:Qty: 1 on 12/29/2022 by Landon Hickman DO at OR [facility] Right: Chest CR BARD : PERIPHERAL VASCULAR [id number] 12/02/2023 [id number] / / [id number] Hanarostent Noncover 10dm 10cm - [id number] Implanted:Qty: 1 on 02/19/2023 by Tanya Morris MD at OR [facility] [employer] [id number] 12/31/2024 [facility]-10-100 -180 / / [id number] documented as of this encounter Advance Directives * Full Code (Latest Code Status on File) Date Activated Date Inactivated Comments 12/04/2022 10:10 PM 12/08/2022 3:55 PM This order re flects the patients wishes and were consensually agreed upon. Question Answer Comments Discussion of Advance Directives occurred with: Patient Care Teams Calibration Checker Relationship Specialty Start Date End Date Kristine Kan DO [address] [facility] [place] [address] PCP - General Family Medicine 03/16/24 documented as of this encounter
--- OUTSIDE RECORDS SUMMARY | 2024-06-06 23:39 | External Medical Summary | Summary of Care ---
Author Name Unknown Organization [facility] Address [address] [place] [address] Phone [phone] Care Team Providers Care Legger Press Operator Name Role Phone Kristine Kan Primary Care Provider [phone] Reason for Visit * Reason Comments Outpatient Testing Encounter Details Date Type Department Care Team (Late st Contact Info) Description 04/04/2024 8:20 AM EDT Laboratory Laboratory [facility] [address] [place] [phone] [facility] 200 [facility] [place] [address] Carcinoma of gallbladder (HCC) Allergies Active Allergy Reactions Criticality Noted Date Comments Latex Rash 06/28/2018 From a dressing Sulfamethoxazole Edema face/lips/tongue High 023 Trimethoprim Edema face/lips/tongue High 12/03/2022 documented as of this encounter (statuses as of 04/04/2024) Medications Medication Sig Dispensed Refills Start Date [...] % Ophthalmic Solution (Dextran 70-Hypromellose) Instill into eye. A ctive Megestrol Acetate 625 MG/5ML Oral SuspensionIndicatio ns:Carcinoma of gallbladder (HCC) Take 4 ml by mouth daily 300 mL 3 01/14/2024 Active Apixaban Starter Pack 5 MG Oral Tablet Therapy Pack (Eliquis DVT/PE Starter Pack)Indications:Ac [facility] 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 [...] mcgIndications:Vitamin B 12 deficiency 1000 mcg IM [id number] 09/02/2023 08/03/2024 Active documented as of this encounter (statuses as of 04/04/2024) Active Problems Problem Noted Date Diagnosed Date [...] as of this encounter (statuses as of 04/04/2024) Resolved Problems Problem Noted Date Diagnosed Date [...] as of this encounter (statuses as of 04/04/2024) Immunizations Name Administration Dates Next Due COVID-19 [...] Team (Late st Contact Info) Description 04/04/2024 3:20 PM EDT Office Visit Nephrology, [facility] [place] [address] [place] [address] Lizandro Motta MD [address] [place] [address] 04/05/2024 1:00 PM EDT Hem/Onc Treatment Hematology/Oncology Treatment, [place] [address] [facility] [address] [place] [phone] Jessica, Chair 4 Hem Onc [place] [address] [place] [address] 04/12/2024 2:15 PM EDT Office Visit Hematology/Oncology [facility] Jessica [place] [address] [place] [phone] Hardik Gross MD [address] [place] [address] 05/05/2024 1:00 PM EDT Office Visit Family Practice [address] [place] 293 [facility] [place] [address] Kristine Kan DO 293 [facility] [place] [address] Pending Results Name Type Priority Associated Diagnoses Date /Time COMPREHENSIVE METABOLIC PANEL Lab STAT Carcinoma of gallbladder (HCC) 04/04/2024 8:25 AM EDT MAGNESIUM Lab STAT Carcinoma of gallbladder (HCC) 04/04/2024 8:25 AM EDT TSH WITH FREE T4 IF INDICATED Lab STAT Carcinoma of gallbladder (HCC) 04/04/2024 8:25 AM EDT CBC WITH WBC DIFFERENTIAL Lab STAT Carcinoma of gallbladder (HCC) 04/04/2024 8:25 AM EDT CBC Lab STAT Carcinoma of gallbladder (HCC) 04/04/2024 8:25 AM EDT DIFFERENTIAL, AUTOMATED Lab STAT Carcinoma of gallbladder (HCC) 04/04/2024 8:25 AM EDT Health Maintenance Due Date Last Done Comments COVID-19 Vaccine ( season) 2024 11/08/2023, 07/10/2022, 01/06/2022, Additional history exists Influenza Vaccine (FLU shot) (#1) 2024 06/30/2023, 07/18/2022, 05/18/2021, Additional history exists Albumin/Creatinine Ratio 09/02/2024 09/02/2023, 08/0 10/2021 GFR 09/19/2024 03/20/2024, 06/0 12/2023, 02/29/2024, Additional history exists Depression Monitoring 11/09/2024 11/09/2023 CKD PHOS USE SMARTSET 11875 11/25/2024 11/25/2023, 0 12/05/2022 HbA1c 11/25/2024 11/25/2023, 11/04, 05/04/2022, Additional history exists CKD HGB USE SMARTSET 40705 03/20/202503/20, 03/20/2024, 03/06/2024, Additional history exists DXA [...] this encounter Medical Devices Implanted Type Area Insurance Sales Professional Device Identifier Shelf Expiration Date Model / Serial / Lot Lens Intraoc 21.5 - [id number] - [id number] Implanted:Qty: 1 on 07/27/2019 by Tristian Araujo MD at OR [facility] Left: Eye BAUSCH & LOMB 04/02/2024 [id number] / [id number] / [id number] Lens Intraoc 21.5 - [id number] - [id number] Implanted:Qty: 1 on 08/08/2019 by Tristian Araujo MD at OR [facility] Right: Eye BAUSCH & LOMB 04/02/2024 [id number] / [id number] / [id number] Stent Axios [id number] - [id number] Implanted:Qty: 1 on 12/07/2022 by Tanya Morris MD at OR [facility] N/A: Abdomen [employer] : ENDOSCOPY [id number] 08/25/2023 [id number] / / [id number] Stent Bili Pigtail 7fr 100mm - [id number] Implanted:Qty: 1 on 12/07/2022 by Tanya Morris MD at OR [facility] N/A: Abdomen [employer] [id number] 08/03/2025 PBD-1033-0 710 / / 2YK Stent Bili Pigtail 7fr 100mm - [id number] Implanted:Qty: 1 on 12/07/2022 by Tanya Morris MD at OR [facility] N/A: Abdomen [employer] [id number] 08/03/2025 PBD-1033-0 710 / / 2YK Power Port 8fr Sngl Lumen Plas - [id number] Implanted:Qty: 1 on 12/29/2022 by Landon Hickman DO at OR [facility] Right: Chest CR BARD : PERIPHERAL VASCULAR [id number] 12/02/2023 [id number] / / [id number] Hanarostent Noncover 10dm 10cm - [id number] Implanted:Qty: 1 on 02/19/2023 by Tanya Morris MD at OR [facility] [employer]LO[employer] [id number] 12/31/2024 [facility]-10-100 -180 / / [id number] documented as of this encounter Visit Diagnoses [...] Advance Directives occurred with: Patient Care Teams Legger Press Operator Relationship Specialty Start Date End Date Kristine Kan DO [address] [place] [address] PCP - General Family Medicine 03/16/24 documented as of this encounter
--- OUTSIDE RECORDS SUMMARY | 2024-06-06 23:39 | External Medical Summary | Summary of Care ---
Author Name Unknown Organization [facility] Address [address] [place] [address] Phone [phone] Care Team Providers Care Dental Hygiene Instructor Name Role Phone Kristine Kan DO Primary Care Provider [phone] Reason for Visit * Reason Onset Date Comments Advice 04/04/2024 Eliquis Test Results Lab 04/04/2024 ANC Encounter Details Date Type Department Care Team (Late st Contact Info) Description 04/04/2024 Telephone Hematology/Oncology [facility] [address] [place] [phone] Hardik Gross MD [address] [facility] [facility] [address] Advice (Eliquis); Test Results Lab (ANC) Allergies Active Allergy Reactions Criticality Noted Date [...] Tablet Therapy Pack (Eliquis DVT/PE Starter Pack)Indications:Ac [place] 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 [...] mcgIndications:Vitamin B 12 deficiency 1000 mcg IM [id number] 09/02/2023 08/03/2024 Active documented as of this [...] Telephone Encounter - Lucille Gaytan OSA - 04/04/2024 10:22 AM EDT Apts updated * Telephone Encounter - Jose Pineda RN - 04/04/2024 9:46 AM EDT Reviewed patients labs with her at nurse visit today. ANC 0.40 - Per Dr. Gross, delay treatment [address] Gross- Pt was started on Eliquis 03/08/24 - She has noticed increased dizziness/weakness since starting the medication (denies this occurring before starting the medication). She has also noticed an increase in her memory loss. and patient inquiring if 5mg twice a day may be "too much", asking if 2.5mg twice a day is a reasonable alternative. Hgb level is stable at 11.1. Pt has no leg swelling. She has had two falls in the past week but has no active symptoms of bleeding, did not hit her head. Scheduling- please do the following: - Cancel patients treatment appointment for tomorrow. - Scheduling labs at [facility] next Wednesday04/10/24 at 10AM "CBCD,CMP,Mag" - Schedule 2 hour treatment "Vitaline 5FU/Leucovorin/B12" documented in this encounter Plan of Treatment Upcoming Encounters Date Type Department Care Team (Late st Contact Info) Description 04/04/2024 3:20 PM EDT Office Visit Nephrology, [facility] [address] [place] [address] Lizandro Motta MD 200 [facility] [place] [address] 04/10/2024 9:40 AM EDT Laboratory Laboratory [facility] [place] [address] [place] [phone] Jessica, Lab [place] [address] [address] [facility] [place] [address] 04/10/2024 11:00 AM EDT Hem/Onc Treatment Hematology/Oncology Treatment, [place] 200 [facility] [place] [phone] Jessica, Chair 6 Hem Onc [place] [address] [place] [address] 04/12/2024 2:15 PM EDT Office Visit Hematology/Oncology [facility] Jessica [place] [address] [place] [phone] Hardik Gross MD [address] [place] [address] 05/05/2024 1:00 PM EDT Office Visit Family Practice [address], [place] 293 [place] [address] Kristine Kan DO 293 [facility] [place] [address] Health Maintenance Due Date Last Done Comments COVID-19 Vaccine ( season) 2024 11/08/2023, 07/10/2022, 01/06/2022, Additional history exists Influenza Vaccine (FLU shot) (#1) 2024 06/30/2023, 07/18/2022, 05/18/2021, Additional history exists Albumin/Creatinine Ratio 09/02/2024 09/02/2023, 0810/2021 GFR 10/05/2024 04/04/2024, 03/04, 03/06/2024, Additional history exists Depression Monitoring 11/09/2024 11/09/2023 CKD PHOS USE SMARTSET 67965 11/25/2024 11/25/2023, 0 12/05/2022 HbA1c 11/25/2024 11/25/2023, 11/04, 05/04/2022, Additional history exists CKD HGB USE SMARTSET 65213 04/04/202504/04, 04/04/2024, 03/20/2024, Additional history exists DXA [...] this encounter Medical Devices Implanted Type Area Surgical Services Director Device Identifier Shelf Expiration Date Model / Serial / Lot Lens Intraoc 21.5 - [id number] - [id number] Implanted:Qty: 1 on 07/27/2019 by Tristian Araujo MD at OR [facility] Left: Eye BAUSCH & LOMB 04/02/2024 [id number] / [id number] / [id number] Lens Intraoc 21.5 - [id number] - [id number] Implanted:Qty: 1 on 08/08/2019 by Tristian Araujo MD at OR [facility] Right: Eye BAUSCH & LOMB 04/02/2024 [id number] / [id number] / [id number] Stent Axios [id number] - [id number] Implanted:Qty: 1 on 12/07/2022 by Tanya Morris MD at OR [facility] N/A: Abdomen [employer] : ENDOSCOPY [id number] 08/25/2023 [id number] / / [id number] Stent Bili Pigtail 7fr 100mm - [id number] Implanted:Qty: 1 on 12/07/2022 by Tanya Morris MD at OR [facility] N/A: Abdomen [facility] [employer] [id number] 08/03/2025 PBD-1033-0 710 / / [id number] Stent Bili Pigtail 7fr 100mm - [id number] Implanted:Qty: 1 on 12/07/2022 by Tanya Morris MD at OR [facility] N/A: Abdomen [facility] [employer] [id number] 08/03/2025 PBD-1033-0 710 / / 2YK Power Port 8fr Sngl Lumen Plas - [id number] Implanted:Qty: 1 on 12/29/2022 by Landon Hickman DO at OR [facility] Right: Chest CR BARD : PERIPHERAL VASCULAR [id number] 12/02/2023 [id number] / / [id number] Hanarostent Noncover 10dm 10cm - [id number] Implanted:Qty: 1 on 02/19/2023 by Tanya Morris MD at OR [facility] [id number] 12/31/2024 [facility]-10-100 -180 / / [id number] documented as of this encounter Advance Directives * Full Code (Latest Code Status on File) Date Activated Date Inactivated Comments 12/04/2022 10:10 PM 12/08/2022 3:55 PM This order re flects the patients wishes and were consensually agreed upon. Question Answer Comments Discussion of Advance Directives occurred with: Patient Care Teams Dental Hygiene Instructor Relationship Specialty Start Date End Date Kristine Kan DO 293 [facility] [place] [address] PCP - General Family Medicine 03/16/24 documented as of this encounter
--- OUTSIDE RECORDS SUMMARY | 2024-06-06 23:39 | External Medical Summary | Summary of Care ---
Author Name Unknown Organization [facility] Address [address] [place] [address] Phone [phone] Care Team Providers Care Clinical Immunologist Name Role Phone Kristine Kan Primary Care Provider Reason for Visit * Reason Comments Advice Eliquis Encounter Details Date Type Department Care Team (Late st Contact Info) Description 04/04/2024 8:30 AM EDT Nurse Only Hematology/Oncology [facility] [place] [address] [place] [phone] Jessica, Nurse Hem Onc [facility] [address] [facility] [place] [address] Advice (Eliquis) Allergies Active Allergy Reactions Criticality Noted Date [...] Tablet Therapy Pack (Eliquis DVT/PE Starter Pack)Indications:Ac pen[place]scot 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 [...] mcgIndications:Vitamin B 12 deficiency 1000 mcg IM [id number] 09/02/2023 08/03/2024 Active documented as of this [...] as of this encounter Progress Notes * Jose Pineda RN - 04/04/2024 9:37 AM EDT Spoke with patient and her today. They state since starting Eliquis she has been experiencing worsening dizziness. Pt states she has been having memory loss that is worsening the past week. She states she recently fell twice (both soft falls). Pt denies any current symptoms from this and denies hitting her head. Minor bruising noted to her right knee which is healing. Legs have no swelling. Reviewed labs. See telephone encounter from today for further documentation. documented in this encounter Plan of Treatment Upcoming Encounters Date Type Department Care Team (Late st Contact Info) Description 04/04/2024 3:20 PM EDT Office Visit [facility] [address] [place] [address] Lizandro Motta MD [address] [place] [address] 04/05/2024 1:00 PM EDT Hem/Onc Treatment Hematology/Oncology Treatment, [place] [address] [place], [place] [phone] Park, Chair 4 Hem Onc [facility] [address] [facility] [place], [place] [address] 04/12/2024 2:15 PM EDT Office Visit Hematology/Oncology [facility] [address] [place], [place] [phone] [facility] [address] 05/05/2024 1:00 PM EDT Office Visit Family Practice [address], [place] [address] [place] [address] Kristine Kan DO [address] [facility], [place] [address] Health Maintenance Due Date Last Done Comments COVID-19 Vaccine ( season) 2024 11/08/2023, 07/10/2022, 01/06/2022, Additional history exists Influenza Vaccine (FLU shot) (#1) 2024 06/30/2023, 07/18/2022, 05/18/2021, Additional history exists Albumin/Creatinine Ratio 09/02/2024 09/02/2023, 08/0 10/2021 GFR 10/05/2024 04/04/2024, 03/04, 03/06/2024, Additional history exists Depression Monitoring 11/09/2024 11/09/2023 CKD PHOS USE SMARTSET 53332 11/25/2024 11/25/2023, 0 12/05/2022 HbA1c 11/25/2024 11/25/2023, 11/04, 05/04/2022, Additional history exists CKD HGB USE SMARTSET 97010 04/04/202504/04, 04/04/2024, 03/20/2024, Additional history exists DXA [...] this encounter Medical Devices Implanted Type Area Coordinator Of Health Services Device Identifier Shelf Expiration Date Model / Serial / Lot Lens Intraoc 21.5 - [id number] - [id number] Implanted:Qty: 1 on 07/27/2019 by Tristian Araujo MD at OR [facility] Left: Eye BA[employer]CH [employer] LOMB 04/02/2024 [id number] / [id number] / [id number] Lens Intraoc 21.5 - [id number] - [id number] Implanted:Qty: 1 on 08/08/2019 by Tristina Araujo MD at OR [facility] Right: Eye BAUSCH [employer] LOMB 04/02/2024 [id number] / [id number] / [id number] Stent Axios [id number] - [id number] Implanted:Qty: 1 on 12/07/2022 by Tanya Morris MD at OR [facility] N/A: Abdomen [employer] : ENDOSCOPY [id number] 08/25/2023 [id number] / / [id number] Stent Bili Pigtail 7fr 100mm - [id number] Implanted:Qty: 1 on 12/07/2022 by Tanya Morris MD at OR [facility] N/A: Abdomen [employer] [id number] 08/03/2025 PBD-1033-0 710 / / [id number] Stent Bili Pigtail 7fr 100mm - [id number] Implanted:Qty: 1 on 12/07/2022 by Tanya Morris MD at OR [facility] N/A: Abdomen [employer] [id number] 08/03/2025 PBD-1033-0 710 / / [id number] Power Port 8fr Sngl Lumen Plas - [id number] Implanted:Qty: 1 on 12/29/2022 by Landon Hickman DO at OR [facility] Right: Chest CR BARD : PERIPHERAL VASCULAR [id number] 12/02/2023 [id number] / / [id number] Hanarostent Noncover 10dm 10cm - [id number] Implanted:Qty: 1 on 02/19/2023 by Tanya Morris MD at OR [facility] [employer] [id number] 12/31/2024 [facility]-10-100 -180 / / [id number] documented as of this encounter Advance Directives * Full Code (Latest Code Status on File) Date Activated Date Inactivated Comments 12/04/2022 10:10 PM 12/08/2022 3:55 PM This order re flects the patients wishes and were consensually agreed upon. Question Answer Comments Discussion of Advance Directives occurred with: Patient Care Teams Clinical Immunologist Relationship Specialty Start Date End Date Kristine Kan DO [address] [place] [address] PCP - General Family Medicine 03/16/24 documented as of this encounter
--- OUTSIDE RECORDS SUMMARY | 2024-06-06 23:39 | External Medical Summary ---
Author Name Unknown Address Unknown Organization [id number]:[facility] [place] - [address] [place] [address] Laboratory Report Ordering Provider Test Date Status TASHA MANN 04/04/2024 08:25:33 Final Observation Date Value Abnormality Reference (Units ) Status T4, Free 04/04/2024 08:25:33 1.2 0.9-1.7 (n g/dL) Final Performing Location [facility] - [address] [place] [address]
--- OUTSIDE RECORDS SUMMARY | 2024-06-06 23:39 | External Medical Summary ---
Author Name Unknown Address Unknown Organization K09:[facility] [place] [address] Laboratory Report Ordering Provider Test Date Status TASHA MANN 04/04/2024 08:25:33 Final Observation Date Value Abnormality Reference (Units ) Status SYNC LEUKOCYTES IN BLOOD BY AUTOMATED COUNT 04/04/2024 08:25:33 3.69 Below low normal 4.00-10.80 (K/uL) Final Segs 04/04/2024 08:25:33 10.9 Below low normal 40.0-75.0 (%) Final Lymphs % 04/04/2024 08:25:33 71.0 Above high normal 18.0-42.0 (%) Final Monos 04/04/2024 08:25:33 16.8 Above high normal 1.0-11.0 (%) Final Eosinophils 04/04/2024 08:25:33 0.8 0.0-6.0 (%) Final Basos 04/04/2024 08:25:33 0.5 0.0-2.0 (%) Final Absolute Segs 04/04/2024 08:25:33 0.40 Below low normal 1.80-7.70 (K/uL) Final Lymphs, absolute 04/04/2024 08:25:33 2.62 1.00-4.80 (K/ul) Final Monos, Abs 04/04/2024 08:25:33 0.62 0.00-1.10 (K/uL) Final Eos, Abs 04/04/2024 08:25:33 0.03 0.00-0.70 (K/uL) Final Basos, Abs 04/04/2024 08:25:33 0.02 0.00-0.20 (K/uL) Final Performing Location [facility] [place] [address]
--- OUTSIDE RECORDS SUMMARY | 2024-06-06 23:39 | External Medical Summary ---
Author Name Unknown Address Unknown Organization K01:[facility] [place] - [address] [place] [address] Laboratory Report Ordering Provider Test Date Status DANICA MOJICA 04/04/2024 08:25:33 Final Observation Date Value Abnormality Reference (Units ) Status Cancer Ag 19-9 04/04/2024 08:25:33 >22641.0 Above high normal <35.0 (U/mL) Final Performing Location [facility] - [address] [place] [address]
--- OUTSIDE RECORDS SUMMARY | 2024-06-06 23:39 | External Medical Summary | Summary of Care ---
Author Name Unknown Organization [facility] Address [address] [place] [address] Phone [phone] Care Team Providers Care Claims Administrator Name Role Phone ChrisblancaKristine schultz Primary Care Provider + [phone] Reason for Visit * Reason Comments NEW PATIENT Chronic Kidney Disease (CKD) * Evaluate & Treat - Unlimited Visits (Within 10 days (routine)) - Authorized Specialty Diagnoses / Procedures Referred By Contsammy t Referred To Contact Nephrology Diagnoses Chronic kidney disease, stage 3b (HCC) Drug-induced toxicity of kidney Samantha Cohen CRNP [address] [place] [address] Referral ID Status Reason Start Date Expiration Date Visits Requested Visits Authorized [id number] Authorized Specialty Services Required 03/07/2024 [id number] Encounter Details Date Type Department Care Team (Late st Contact Info) Description 04/04/2024 3:20 PM EDT Office Visit Nephrology, Kory Lopez [address] [place] [id number] Lizandro Motta MD [address] [place] [id number] Stage 3b chronic kidney disease (HCC)* Allergies Active Allergy Reactions Criticality Noted Date Comments Latex Rash 06/28/2018 From a dressing Sulfamethoxazole Edema face/lips/tongue High 023 Trimethoprim Edema face/lips/tongue High 12/03/2022 documented as of this encounter (statuses as of 04/05/2024) Medications Medication Sig Dispensed Refills Start Date [...] mcgIndications:Vitamin B 12 deficiency 1000 mcg IM [id number] 09/02/2023 08/03/2024 Active documented as of this encounter (statuses as of 04/05/2024) Active Problems Problem Noted Date Diagnosed Date [...] as of this encounter (statuses as of 04/05/2024) Resolved Problems Problem Noted Date Diagnosed Date [...] as of this encounter (statuses as of 04/05/2024) Immunizations Name Administration Dates Next Due COVID-19 [...] Sign Reading Time Taken Comments Blood Pressure 114/72 04/04/2024 3:26 PM EDT Pulse 81 04/04/2024 3:26 PM EDT Temperature 37.5 C (99.5 F) 04/04/2024 3:26 PM ED T Respiratory Rate 18 04/04/2024 3:26 PM EDT Oxygen Saturation 98% 04/04/2024 3:26 PM EDT Inhaled Oxygen Concentration - - Weight 73.6 kg (162 lb 3.2 oz) 04/04/2024 3:26 P M EDT Height 165.1 cm (5' 5") 04/04/2024 3:26 PM EDT Body Mass Index 26.99 04/04/2024 3:26 PM EDT documented in this [...] as of this encounter Progress Notes * Lizandro Motta MD - 04/04/2024 3:31 PM EDT Subjective: Anjelica Wiley is a 74 year old female. Chief Complaint Patient presents with NEW PATIENT Chronic Kidney Disease (CKD) HPI: 74/F with normal GFR/Creat up until 01/2023. Was dxed of Gallbladder CA in . Chemo with Cisplatin started and then started having rising creat so stopped. Was on this for 3 months. Since stopping Cisplatin no longer worsening of Kidney function but not improving either. Had LE edema b/l so ECHO, urine test done. Nephrology referral made. Found to have b/l DVT and now on eliquis. Creat /GFR --1.7 last proteinuria was normal. CT showed unremarkable kidneys. Also the tumor has Shrunk a bit . Patient Active Problem List Diagnosis Corneal dystrophy [...] as needed for Nausea. 30 Tablet 2 Atenolol 25 MG Oral Tablet (Tenormin) Take [...] mouth twice a day. 74 Tablet 0 [START ON 04/05/2024] Apixaban 5 MG Oral Tablet (Eliquis) Take 1 Tablet by mouth in the morning and 1Tablet before bedtime. Do not start before April 05, 2024. 60 Tablet 5 Lidocaine-Prilocaine 2.5-2.5 % External Cream (Emla) APPLY TO SKIN OVER MEDIPORT & COVER 1HR PRIOR TO ACCESSING. 30 g 1 Current Facility-Administered Medications Medication Dose Route Frequency [...] 1985, D&C EGD, FLEXIBLE,W/ENDOSCOPIC US N/A 12/04/2022 [facility], EGD / EUS /severe stenosis was found in the duodenal bulb /mass found in gallbladder in duodenal wall / biopsies adenocarcinoma of the gallbladder EGD, W/ENDOSCOPIC US N/A 12/07/2022 severe duodenal bulb stenosis, large gallbladder mass precluding/ESOPHAGOGASTRODUODENOSCOPY (EGD), FLEXIBLE, TRANSORAL, ENDOSCOPIC ULTRASOUND performed by Tanya Morris MD at OR [facility] ERCP W/ STENT EXCHANGE N/A 02/19/2023 done through [facility] axios stent, severe stenosis in duodenal bulb/single malignant biliary stricture/plastic biliary stent exchanged for uncovered metal biliary stent/ENDOSCOPIC RETROGRADE CHOLANGIOPANCREATOGRAPHY (ERCP) W/STENT REMOVAL AND EXCHANGE; INC DILATION, GUIDE WIRE AND SPHINCTEROTOMY performed by Tanya Morris MD at OR [facility] ERCP, DIAGNOSTIC, SPECIMEN COLLECTION N/A 12/07/2022 ENDOSCOPIC RETROGRADE CHOLANGIOPANCREATOGRAPHY (ERCP) DIAGNOSTIC performed by Dee Pineda OR [facility] INFORMATION 12/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 INSER TUNN ACC DEV;5 YRS/OLDER Right 12/29/2022 INSERT TUNNELED CENTRAL VENOUS ACCESS WITH SUBQ PORT performed by Landon Hickman DO at OR [facility] LAPAROSCOPY DIAGNOSTIC 1988 for infertility MASTECTOMY, PARTIAL Left 05/13/2017 malignant RADIATION THERAPY Left 08/04/2017 RADIATION THERAPY DOSE PLAN Left 08/04/2017 RELIEVE INNER EYE PRESSURE Left 07/27/2019 left GONIOTOMY performed by Tristian Araujo MD at OR [facility] RELIEVE INNER EYE PRESSURE Right 08/08/2019 right GONIOTOMY performed by Tristian Araujo MD at OR [facility] REMOVE CATARACT, INSERT LENS PROSTH Left 07/27/2019 left EXTRACAPSULAR CATARACT REMOVAL WITH INTRAOCULAR LENS performed by Tristian Araujo MD at OR [facility] REMOVE CATARACT, INSERT LENS PROSTH Right 08/08/2019 right EXTRACAPSULAR CATARACT REMOVAL WITH INTRAOCULAR LENS performed by Tristian Araujo MD at OR [facility] SENTINEL LYMPH NODE BIOPSY PERFORMED Left [...] (Not Specified) PAUNT (Not Specified) Social History Socioeconomic History Marital status: Spouse name: Not on file Number of children: Not on file Years of education: Not on file Highest education level: Not on file Occupational History Not on file Tobacco Use Smoking status: Never Passive exposure: Past Smokeless tobacco: Never Vaping Use Vaping status: Never Used Substance and Sexual Activity Alcohol use: Not Currently Alcohol/week: 1.0 standard drink of alcohol Types: 1 5 oz of wine per week Comment: social Drug use: No Sexual activity: Yes Partners: Male Other Topics Concern Service No Blood Transfusions No Caffeine Concern No Occupational Exposure No Hobby Hazards No Sleep Concern No Stress Concern No Weight Concern No Special Diet No Back Care No Exercise No Bike Helmet Not Asked Seat Belt Yes Self-Exams Yes Social History Narrative Not on file Social Determinants of Health Financial Resource Strain: Low Risk (11/09/2023) Financial Resource Strain Do you have any trouble paying for your medications, or do you think you might in the future? (Adult - for ages 18 years and over): No Does your family have trouble paying for medicine? (Household - for ages 0-17 years): Not on file Food Insecurity: No Food Insecurity (11/09/2023) Food Insecurity Do you need food for this week? (Adult - for ages 18 years and over): No Are you able to get enough food for your family? (Household - for ages 0-17 years): Not on file Does your family need food this week? (Household - for ages 0-17 years): Not on file Do you always have enough food for your family? (Household - for ages 0-17 years): Not on file Transportation Needs: No Transportation Needs (11/09/2023) Transportation Needs Do you have trouble getting a ride to medical visits or work? (Adult - for ages 18 years and over):Never True Does your family have a hard time getting a ride to doctors visits? (Household - for ages 0-17 years): Not on file Has lack of transportation kept you from medical appointments, meetings, work, or from getting things needed for daily living? Check all that apply. (Adult - for ages 18 years and over): Not on file Do you (or your family) have trouble finding or paying for a ride (transportation)? (Household - for ages 0-17 years): Not on file Social Connections: Socially Integrated (11/09/2023) Social Connections How often do you feel lonely or isolated from those around you? (Adult - for ages 18 years and over): Sometimes Housing Stability: Low Risk (11/09/2023) Housing Stability Do you currently live in a group home or have no steady place to sleep at night? (Adult - for ages 18 years and over): No Do you think you are at risk of becoming homeless? (Adult - for ages 18 years and over): No Does your family worry about paying for your home or becoming homeless? (Household - for ages 0-17 years): Not on file Are you homeless or worried that you might be in the future? (Adult - for ages 18 years and over): Not on file Are you (or your family) homeless or worried that you might be in the future? (Household - for ages0-17 years): Not on file Review of Systems: Severe progressive weakness. Poor appetite. Unsteadiness. Otherwise 12 systems reviewed and negative OBJECTIVE: Physical Exam: BP 114/72 (BP Site: Right Arm, BP Position: Sitting, BP Cuff Size: Regular) | Pulse 81 | Temp 37.5 C (99.5 F) (Tympanic) | Resp 18 | Ht 1.651 m (5' 5") | Wt 73.6 kg (162 lb 3.2 oz) | SpO2 98% | BMI 26.99 kg/m | BSA 1.84 m General: alert, ill looking, and mild distress Head: Normocephalic, No masses, lesions, tenderness or abnormalities Neck: no JVD Heart: regular rate & rhythm, no murmur, and no gallops Lungs: normal respiratory rate and rhythm, lungs clear to auscultation Abdomen: abdomen soft and non-tender Back: no costovertebral angle tenderness Extremities: trace edema b/l. Neuro Exam: alert & oriented x 3 with fluent speech, no focal motor/sensory deficits Skin: skin color, texture, turgor are normal, no rashes or significant lesions Recent Labs Units 04/04/24 0825 03/20/24 1011 03/06/24 0926 SODIUM - [facility] mmol/L 137 137 137 POTASSIUM - [facility] mmol/L 3.7 4.1 4.2 CHLORIDE - [facility] mmol/L 101 105 104 CO2 - [facility] mmol/L 21* 19* 21* BUN - [facility] mg/dL 29* 25* 27* CREATININE - [facility] mg/dL 1.7* 1.5* 1.6* ESTIMATED GLOMERULAR FILTRATION RATE - [facility] mL/min 30* 35* 34* Recent Labs Units 04/04/24 0825 03/20/24 1011 03/06/24 0926 02/29/24 0914 06/10/23 0952 05/31/23 0942 HGB g/dL 11.1* 10.7* 10.4* 8.2* < > 8.3* FERRITIN - [facility] ng/mL -- -- -- 637* -- 761* TRANSFERRIN SATURATION PERCENT - [facility] % -- -- -- 35 -- 88* < > = values in this interval not displayed. Recent Labs Units 04/04/24 0825 03/20/24 1011 03/06/24 0926 12/20/23 0911 11/25/23 0921 12/06/22 0532 12/05/22 0623 CALCIUM - [facility] mg/dL 9.5 9.3 9.4 < > 9.7 < > 9.6 PHOSPHORUS - [facility] mg/dL -- -- -- -- 3.8 -- 3.7 < > = values in this interval not displayed. Recent Labs Units 11/25/23 0921 11/17/22 0907 05/04/22 0841 HEMOGLOBIN A1C - [facility] % 6.1* 6.1* 6.2* Recent Labs Units 09/02/23 1519 08/05/23 0843 07/30/23 1428 05/04/22 0845 ALBUMIN / CREATININE RATIO, URINE - [facility] mg/g Creat 14 -- -- <7 PROTEIN/ CREATININE RATIO, URINE - [facility] mg/g -- 130 428* -- Assessment: Stage 3b chronic kidney disease (HCC) (Primary) 74/F with normal GFR/Creat up until 01/2023. Was dxed of Gallbladder CA in . Chemo with Cisplatin started and then started having rising creat so stopped. Was on this for 3 months. Since stopping Cisplatin no longer worsening of Kidney function but not improving either. And at this point she is at a CKD stage IIIB category. No need of renal biopsy Will check the urine test as below when she comes in for lab appointment. She has frequent labs and appointment with Hematology/Oncology. Also check renal panel PTH with the next lab. She is still having chemotherapy. Current chemotherapy although less likely to cause nephrotoxicitycompared to cisplatin are not 100% safe. However this does not mean she can not have chemotherapy. Oncology is managing the chemotherapy based on the risk profile and accordingly selecting the drugsin the dose. Will defer this to Oncology pharmacy Her renal prognosis is tied with cancer and chemotherapy I will be following along in conjunction with Oncology. Her urine test and CT scan was unremarkable with regards to the kidneys - PROTEIN/ CREATININE RATIO, URINE; Future; Expected date: 04/04/2024 - URINALYSIS WITH MICROSCOPIC EXAM; Future; Expected date: 04/04/2024 Hematology Oncology note was reviewed in great details.. I spent a total of Greater than 55 mins (exact time 55 mins) on the date of service in preparation,delivery, and documentation of the care provided to Anjelica Wiley excluding any time spent in theperformance of separately billed services. Follow Up: Return in about 4 months (around 08/05/2024) for Clinic Visit. | For: Clinic Visit Thanks for the consult Dr Kristine Kan DO and KRISTA Johnson MD documented in this encounter Nursing Notes * Jeanette Diana LPN - 04/04/2024 3:24 PM EDT Patient identified by verbal name and date of .New patient referral from Samantha VELASCO for CKD Last labs 04/04/24 Pt notes dizziness since starting Eliquis denies SOB or lower extremity edema documented in this encounter Plan of Treatment Upcoming Encounters Date Type Department Care Team (Late st Contact Info) Description 04/10/2024 9:40 AM EDT Laboratory Laboratory [facility] [address] [place] [phone] Jessica, Lab [facility] [address] [facility] [place], [place] [address] 04/11/2024 2:00 PM EDT [facility] [address] [place], [place] [phone] Jessica, Chair 1 Hem Onc [facility] [address] [facility] [place] [address] 04/12/2024 2:15 PM EDT Office Visit Hematology/Oncology [facility] [address] [place], [place] [phone] Hardik Gross MD [address] [place] [address] 05/05/2024 1:00 PM EDT Office Visit Family Practice [address] [place] [address] [place] [phone] Kristine Kan DO [address] [place] [address] Scheduled Orders Name Type Priority Associated Diagnoses Orde r Schedule PROTEIN/ CREATININE RATIO, URINE Lab Routine Stage 3b chronic kidney disease (HCC) Expected: 04/04/2024 (Approximate), Expires: 10/01/2024 URINALYSIS WITH MICROSCOPIC EXAM Lab Routine Stage 3b chronic kidney disease (HCC) Expected: 04/04/2024 (Approximate), Expires: 10/01/2024 Health Maintenance Due Date Last Done Comments COVID-19 Vaccine ( season) 2024 11/08/2023, 07/10/2022, 01/06/2022, Additional history exists Influenza Vaccine (FLU shot) (#1) 2024 06/30/2023, 07/18/2022, 05/18/2021, Additional history exists Albumin/Creatinine Ratio 09/02/2024 09/02/2023, 08/0 10/2021 GFR 10/05/2024 04/04/2024, 03/04, 03/06/2024, Additional history exists Depression Monitoring 11/09/2024 11/09/2023 CKD PHOS USE SMARTSET 32014 11/25/2024 11/25/2023, 0 12/05/2022 HbA1c 11/25/2024 11/25/2023, 11/04, 05/04/2022, Additional history exists CKD HGB USE SMARTSET 21732 04/04/202504/04, 04/04/2024, 03/20/2024, Additional history exists DXA [...] this encounter Medical Devices Implanted Type Area Consular Officer Device Identifier Shelf Expiration Date Model / Serial / Lot Lens Intraoc 21.5 - [id number] - [id number] Implanted:Qty: 1 on 07/27/2019 by Tristian Araujo MD at OR [facility] Left: Eye BAUSCH & LOMB 04/02/2024 [id number] / [id number] / [id number] Lens Intraoc 21.5 - [id number] - [id number] Implanted:Qty: 1 on 08/08/2019 by Tristian Araujo MD at OR [facility] Right: Eye BAUSCH & LOMB 04/02/2024 [id number] / [id number] / [id number] Stent Axios [id number] - [id number] Implanted:Qty: 1 on 12/07/2022 by Tanya Morris MD at OR [facility] N/A: Abdomen [employer] : ENDOSCOPY [id number] 08/25/2023 [id number] / / [id number] Stent Bili Pigtail 7fr 100mm - [id number] Implanted:Qty: 1 on 12/07/2022 by Tanya Morris MD at OR [facility] N/A: Abdomen [employer] [id number] 08/03/2025 PBD-1033-0 710 / / [id number] Stent Bili Pigtail 7fr 100mm - [id number] Implanted:Qty: 1 on 12/07/2022 by Tanya Morris MD at OR [facility] N/A: Abdomen [employer] [id number] 08/03/2025 PBD-1033-0 710 / / [id number] Power Port 8fr Sngl Lumen Plas - [id number] Implanted:Qty: 1 on 12/29/2022 by Landon Hickman DO at OR [facility] Right: Chest CR BARD : PERIPHERAL VASCULAR [id number] 12/02/2023 [id number] / / [id number] Hanarostent Noncover 10dm 10cm - [id number] Implanted:Qty: 1 on 02/19/2023 by Tanya Morris MD at OR [facility] [employer] [id number] 12/31/2024 SHS-10-100 -180 / / [id number] documented as of this encounter Visit Diagnoses Diagnosis Stage 3b chronic kidney disease (HCC)- Primary documented in this encounter Advance Directives * Full Code (Latest Code Status on File) Date Activated Date Inactivated Comments 12/04/2022 10:10 PM 12/08/2022 3:55 PM This order re flects the patients wishes and were consensually agreed upon. Question Answer Comments Discussion of Advance Directives occurred with: Patient Care Teams Claims Administrator Relationship Specialty Start Date End Date rKistine Kan DO [address] [place] [address] PCP - General Family Medicine 03/16/24 documented as of this encounter
--- OUTSIDE RECORDS SUMMARY | 2024-06-06 23:39 | External Medical Summary | Summary of Care ---
Author Name Unknown Organization [facility] Address [address] [place] [address] Phone [phone] Care Team Providers Care Mallet And Die Cutter Name Role Phone Kristine Kan DO Primary Care Provider [phone] Reason for Visit * Reason Onset Date Comments Test Results 03/22/202403/22; 03/23 Encounter Details Date Type Department Care Team (Late st Contact Info) Description 03/22/2024 Telephone Family Practice [address] [facility] [address] [place] [address] Kristine Kan DO [address] [place] [address] Test Results (03/22; 03/23) Allergies Active Allergy Reactions Criticality Noted Date Comments Latex Rash 06/28/2018 From a dressing Sulfamethoxazole Edema face/lips/tongue High 023 Trimethoprim Edema face/lips/tongue High 12/03/2022 documented as of this encounter (statuses as of 03/23/2024) Medications Medication Sig Dispensed Refills Start Date [...] Tablet Therapy Pack (Eliquis DVT/PE Starter Pack)Indications:Ac [place] 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 [...] mcgIndications:Vitamin B 12 deficiency 1000 mcg IM [id number] 09/02/2023 08/03/2024 Active documented as of this encounter (statuses as of 03/23/2024) Active Problems Problem Noted Date Diagnosed Date [...] as of this encounter (statuses as of 03/23/2024) Resolved Problems Problem Noted Date Diagnosed Date [...] as of this encounter (statuses as of 03/23/2024) Immunizations Name Administration Dates Next Due COVID-19 mRNA, LNP-s, No Pre serve, 2-Dose Series (Moderna) 12/07/2020,12/01/2020,11/09/2020 COVID-19, MRNA-LNP, 23-24, P F, 50 MCG/0.5 mL, 12 YRS AND ABOVE, IM (MODERNA-Spikevax) 11/08/2023 COVID-19, mRNA, LNP-s, PF, B ooster, 100mcg/0.5mg (Moderna) 01/06/2022,08/11/2021 Covid-19, Mrna, Lnp-s, Pf, B ivalent, 30 Mcg, IM, 12 yrs and above ([employer]) 07/10/2022 H1N1 2009 Influenza, IM 11/20/2009 Hepatitis [...] encounter Miscellaneous Notes * Telephone Encounter - Jen Slater LPN - 03/23/2024 3:09 PM EDT Call placed to patient - relayed information from Dr. Kan. Pt acknowledged understanding. No further questions at this time. * Telephone Encounter - Kristine Kan DO - 03/23/2024 11:38 AM EDT Nothing else she should be doing. Continue with current plan of care. * Telephone Encounter - Jen Slater LPN - 03/23/2024 11:12 AM EDT Call placed to patient and relayed information from Dr. Kan. Pt acknowledged understanding. States she had been on Eliquis for approx 2 weeks, swelling has gone done in legs/feet, and she is wearing compression socks. Pt states earlier this week she did feel a bump on her right lower leg - near knee. States it is gone now. Asking if there is anything else she should be doing at this time. * Telephone Encounter - Jen Slater LPN - 03/22/2024 2:48 PM EDT Call placed to patient - no answer. Message left to return call to [phone]. * Telephone Encounter - Kristine Kan DO - 03/22/2024 1:26 PM EDT Please let pt know: We did confirm that there is clot in both popliteal veins. documented in this encounter Plan of Treatment Upcoming Encounters Date Type Department Care Team (Late st Contact Info) Description 03/28/2024 9:45 AM EDT Imaging Radiology [address], [address] [address] 04/04/2024 8:20 AM EDT Laboratory Laboratory [facility] [place] [address] [place] [phone] Jessica, Lab [address] [facility] [place] [id number] 04/05/2024 1:00 PM EDT Hem/Onc Treatment Hematology/Oncology Treatment, [place] [address] [place] [phone] Jessica, Chair 4 Hem Onc [address] [place] [address] 04/12/2024 2:15 PM EDT Office Visit Hematology/Oncology [facility] 200 [facility] [place], [place] [address] Hardik Gross MD 200 [facility] [place], [place] [address] 05/05/2024 1:00 PM EDT Office Visit Family Practice [address], [place] 293 [place] [phone] Kristine Kan DO 293 [place] [address] 01/02/2025 10:00 AM EDT Office Visit Nephrology, [facility] 200 [facility] [place], [place] [address] Lizandro Motta MD 200 [facility] [place], [place] [address] Health Maintenance Due Date Last Done Comments COVID-19 Vaccine ( season) 2024 11/08/2023, 07/10/2022, 01/06/2022, Additional history exists Albumin/Creatinine Ratio 09/02/2024 09/02/2023, 08/0 10/2021 GFR 09/19/2024 03/20/2024, 06/0 12/2023, 02/29/2024, Additional history exists Depression Monitoring 11/09/2024 11/09/2023 CKD PHOS USE SMARTSET 52671 11/25/2024 11/25/2023, 0 12/05/2022 HbA1c 11/25/2024 11/25/2023, 11/04, 05/04/2022, Additional history exists CKD HGB USE SMARTSET 33281 03/20/202503/20, 03/20/2024, 03/06/2024, Additional history exists DXA Scan 12/16/2028 12/16/2021, 12/02, 10/08/2014, Additional history exists DTaP,Tdap,and Td Vaccines (4 - Td or Tdap) 02/07/2030 02/08/2020, 12/18/2009, 12/18/2009, Additional history exists Hepatitis B Completed 01/04/2008, 12/2006, 06/01/2007 Pneumococcal Vaccine: 65+ Years Completed 07/05/2018, 02/04/2017 Zoster Vaccines Completed 09/22/2020, 07/04, 08/20/2009, Additional history exists Influenza Vaccine (FLU shot) Completed , 07/18/2022, 05/18/2021, Additional history exists GARDASIL-HPV IMMUNIZATION SERIES Aged Out No longer eligible based on patient's age to complete this topic MENINGOCOCCAL (MENACTRA/MENVEO) Aged Out No longer eligible based on patient's age to complete this topic documented as of this encounter Medical Devices Implanted Type Area Psychiatrist Device Identifier Shelf Expiration Date Model / Serial / Lot Lens Intraoc 21.5 - [id number] - [id number] Implanted:Qty: 1 on 07/27/2019 by Tristian Araujo MD at OR [facility] Left: Eye BAUSCH & LOMB 04/02/2024 [id number] / [id number] / [id number] Lens Intraoc 21.5 - [id number] - [id number] Implanted:Qty: 1 on 08/08/2019 by Tristian Araujo MD at OR [facility] Right: Eye BAUSCH & LOMB 04/02/2024 [id number] / [id number] / [id number] Stent Axios [id number] - [id number] Implanted:Qty: 1 on 12/07/2022 by Tanya Morris MD at OR [facility] N/A: Abdomen [employer] : ENDOSCOPY [id number] 08/25/2023 [id number] / / [id number] Stent Bili Pigtail 7fr 100mm - [id number] Implanted:Qty: 1 on 12/07/2022 by Tanya Morris MD at OR [facility] N/A: Abdomen [employer] [id number] 08/03/2025 PBD-1033-0 710 / / [id number] Stent Bili Pigtail 7fr 100mm - [id number] Implanted:Qty: 1 on 12/07/2022 by Tanya Morris MD at OR [facility] N/A: Abdomen [employer] [id number] 08/03/2025 PBD-1033-0 710 / / 2YK Power Port 8fr Sngl Lumen Plas - [id number] Implanted:Qty: 1 on 12/29/2022 by Landon Hickman DO at OR [facility] Right: Chest CR BARD : PERIPHERAL VASCULAR [id number] 12/02/2023 [id number] / / [id number] Hanarostent Noncover 10dm 10cm - [id number] Implanted:Qty: 1 on 02/19/2023 by Tanya Morris MD at OR [facility] [employer] [id number] 12/31/2024 SHS-10-100 -180 / / [id number] documented as of this encounter Advance Directives * Full Code (Latest Code Status on File) Date Activated Date Inactivated Comments 12/04/2022 10:10 PM 12/08/2022 3:55 PM This order re flects the patients wishes and were consensually agreed upon. Question Answer Comments Discussion of Advance Directives occurred with: Patient Care Teams Mallet And Die Cutter Relationship Specialty Start Date End Date Kristine Kan DO 293 [place] [address] PCP - General Family Medicine 03/16/24 documented as of this encounter
--- OUTSIDE RECORDS SUMMARY | 2024-06-06 23:39 | External Medical Summary | Summary of Care ---
Author Name Unknown Organization [facility] Address [address] [place] [address] Phone [phone] Care Team Providers Care Comb Tender Name Role Phone Kristine Kan DO Primary Care Provider [phone] Reason for Visit * Reason Onset Date Comments Advice 04/04/2024 Eliquis Test Results Lab 04/04/2024 ANC Encounter Details Date Type Department Care Team (Late st Contact Info) Description 04/04/2024 Telephone Hematology/Oncology [facility] [address] [place] [phone] Hardik Gross MD [address] [facility] [address] Advice (Eliquis); Test Results Lab (ANC) Allergies [...] Tablet Therapy Pack (Eliquis DVT/PE Starter Pack)Indications:Ac [place] 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 [...] mcgIndications:Vitamin B 12 deficiency 1000 mcg IM [id number] 09/02/2023 08/03/2024 Active documented as of this [...] appointment for tomorrow. - Scheduling labs at [facility] next Wednesday04/10/24 at 10AM "CBCD,CMP,Mag" - Schedule 2 hour treatment "Vitaline 5FU/Leucovorin/B12" documented in this encounter Plan of Treatment Upcoming Encounters Date Type Department Care Team (Late st Contact Info) Description 04/04/2024 3:20 PM EDT Office Visit Nephrology, [facility] [address] [place] [address] Lizandro Motta MD [facility] [place] [address] 04/10/2024 9:40 AM EDT Laboratory Laboratory [facility] [place] [address] [place] [address] [place] [phone] Jessica, Lab [place] [address] [address] [facility] [place] [address] 04/11/2024 2:00 PM EDT Hem/Onc Treatment Hematology/Oncology Treatment, [place] 200 [facility] [place] [phone] Jessica, Chair 1 Hem Onc [place] [address] [place] [address] 04/12/2024 2:15 PM EDT Office Visit Hematology/Oncology [facility] Jessica [place] [address] [place] [phone] Hardik Gross MD [address] [place] [address] 05/05/2024 1:00 PM EDT Office Visit Family Practice [address], [place] 293 [facility] [place] [address] Kristine Kan DO 293 [place] [address] Health Maintenance Due Date Last Done Comments COVID-19 Vaccine ( season) 2024 11/08/2023, 07/10/2022, 01/06/2022, Additional history exists Influenza Vaccine (FLU shot) (#1) 2024 06/30/2023, 07/18/2022, 05/18/2021, Additional history exists Albumin/Creatinine Ratio 09/02/2024 09/02/2023, 0810/2021 GFR 10/05/2024 04/04/2024, 03/04, 03/06/2024, Additional history exists Depression Monitoring 11/09/2024 11/09/2023 CKD PHOS USE SMARTSET 31963 11/25/2024 11/25/2023, 0 12/05/2022 HbA1c 11/25/2024 11/25/2023, 11/04, 05/04/2022, Additional history exists CKD HGB USE SMARTSET 31692 04/04/202504/04, 04/04/2024, 03/20/2024, Additional history exists DXA [...] this encounter Medical Devices Implanted Type Area Sheriff Detective Device Identifier Shelf Expiration Date Model / Serial / Lot Lens Intraoc 21.5 - [id number] - [id number] Implanted:Qty: 1 on 07/27/2019 by Tristian Araujo MD at OR [facility] Left: Eye BAUSCH & LOMB 04/02/2024 [id number] / [id number] / [id number] Lens Intraoc 21.5 - [id number] - [id number] Implanted:Qty: 1 on 08/08/2019 by Tristian Araujo MD at OR [facility] Right: Eye BAUSCH & LOMB 04/02/2024 [id number] / [id number] / [id number] Stent Axios [id number] - [id number] Implanted:Qty: 1 on 12/07/2022 by Tanya Morris MD at OR [facility] N/A: Abdomen [employer] : ENDOSCOPY [id number] 08/25/2023 [id number] / / [id number] Stent Bili Pigtail 7fr 100mm - [id number] Implanted:Qty: 1 on 12/07/2022 by Tanya Morris MD at OR [facility] N/A: Abdomen [employer] [id number] 08/03/2025 PBD-1033-0 710 / / [id number] Stent Bili Pigtail 7fr 100mm - [id number] Implanted:Qty: 1 on 12/07/2022 by Tanya Morris MD at OR [facility] N/A: Abdomen [employer] [id number] 08/03/2025 PBD-1033-0 710 / / 2YK Power Port 8fr Sngl Lumen Plas - [id number] Implanted:Qty: 1 on 12/29/2022 by Landon Hickman DO at OR [facility] Right: Chest CR BARD : PERIPHERAL VASCULAR [id number] 12/02/2023 [id number] / / [id number] Hanarostent Noncover 10dm 10cm - [id number] Implanted:Qty: 1 on 02/19/2023 by Tanya Morris MD at OR [facility] [employer] [id number] 12/31/2024 SHS-10-100 -180 / / [id number] documented as of this encounter Advance Directives * Full Code (Latest Code Status on File) Date Activated Date Inactivated Comments 12/04/2022 10:10 PM 12/08/2022 3:55 PM This order re flects the patients wishes and were consensually agreed upon. Question Answer Comments Discussion of Advance Directives occurred with: Patient Care Teams Comb Tender Relationship Specialty Start Date End Date Kristine Kan DO 293 [place] [address] PCP - General Family Medicine 03/16/24 documented as of this encounter
--- OUTSIDE RECORDS SUMMARY | 2024-06-06 23:39 | External Medical Summary ---
Author Name Unknown Address Unknown Organization K[facility] [address] [place] [address] Laboratory Report Ordering Provider Test Date Status TASHA MANN 04/04/2024 08:25:33 Final Observation Date Value Abnormality Reference (Units ) Status BUN 04/04/2024 08:25:33 29 Above high normal 6-20 (mg/dL) Final Creatinine 04/04/2024 08:25:33 1.7 Above high normal 0.5-1.0 (mg/dL) Final Glomerular filtration rate/1.73 sq M.predicted [Volume Rate/Area] in Serum, Plasma or Blood by Creatinine-based formula (CKD-EPI) 04/04/2024 08:25:33 30 Below low normal >=60 (mL/min) Final eGFR is calculated based on the CKD-EPI 2020 equation Sodium 04/04/2024 08:25:33 137 135-146 (m mol/L) Final Potassium 04/04/2024 08:25:33 3.7 3.5-5.1 (m mol/L) Final Cl 04/04/2024 08:25:33 101 98-107 (mm ol/L) Final CO2 04/04/2024 08:25:33 21 Below low normal 22- 32 (mmol/L) Final Anion gap 04/04/2024 08:25:33 15 7-15 (mmol /L) Final Glucose 04/04/2024 08:25:33 149 Above high normal 70 -120 (mg/dL) Final Albumin 04/04/2024 08:25:33 3.7 Below low normal 3.8 -5.0 (g/dL) Final AST (Aspartate aminotransferase) 04/04/2024 08:25:33 14 10-35 (U/L) Fin al Alk Phos 04/04/2024 08:25:33 100 35-130 (U/ L) Final Bilirubin, Total 04/04/2024 08:25:33 0.5 <=1 .2 (mg/dL) Final Calcium 04/04/2024 08:25:33 9.5 8.4-10.2 ( mg/dL) Final Protein 04/04/2024 08:25:33 6.9 6.0-8.3 (g /dL) Final ALT (Alanine aminotransferase) 04/04/2024 08:25:33 <5 Below low normal 10-35 (U/L) Final Results rechecked. Performing Location [facility] [address] [place] [address]
--- OUTSIDE RECORDS SUMMARY | 2024-06-06 23:39 | External Medical Summary | Summary of Care ---
Author Name Unknown Organization [facility] Address [address] [place] [address] Phone [phone] Care Team Providers Care Rescue Boat Operator Name Role Phone Kristine Kan DO Primary Care Provider [phone] Reason for Visit * Reason Onset Date Comments Advice 04/04/2024 Eliquis Test Results Lab 04/04/2024 ANC Encounter Details Date Type Department Care Team (Late st Contact Info) Description 04/04/2024 Telephone Hematology/Oncology [facility] [address] [place] [phone] Hardik Gross MD [address] [facility] [address] Advice (Eliquis); Test Results Lab (ANC) Allergies [...] Tablet Therapy Pack (Eliquis DVT/PE Starter Pack)Indications:Ac [place] 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 [...] mcgIndications:Vitamin B 12 deficiency 1000 mcg IM [id number] 09/02/2023 08/03/2024 Active documented as of this [...] Apts updated * Telephone Encounter - Jose Pindea RN - 04/04/2024 9:46 AM EDT Reviewed [...] appointment for tomorrow. - Scheduling labs at [facility] next Wednesday04/10/24 at 10AM "CBCD,CMP,Mag" - Schedule 2 hour treatment "Vitaline 5FU/Leucovorin/B12" documented in this encounter Plan of Treatment Upcoming Encounters Date Type Department Care Team (Late st Contact Info) Description 04/04/2024 3:20 PM EDT Office Visit Nephrology, [facility] [address] [place] [address] Lizandro Motta MD 200 [facility] [place] [address] 04/10/2024 9:40 AM EDT Laboratory Laboratory [facility] [place] [address] [place] [phone] Jessica, Lab [place] [address] [address] [facility] [place] [address] 04/10/2024 11:00 AM EDT Hem/Onc Treatment Hematology/Oncology Treatment, [place] 200 [facility] [place] [phone] Jessica, Chair 6 Hem Onc [place] [address] [place] [address] 04/12/2024 2:15 PM EDT Office Visit Hematology/Oncology [facility] Jessica [place] [address] [place] [phone] Hardik Gross MD [address] [place] [address] 05/05/2024 1:00 PM EDT Office Visit Family Practice [address], [place] 293 [place] [address] Kristine Kan DO 293 [place] [address] Health Maintenance Due Date Last Done Comments COVID-19 Vaccine ( season) 2024 11/08/2023, 07/10/2022, 01/06/2022, Additional history exists Influenza Vaccine (FLU shot) (#1) 2024 06/30/2023, 07/18/2022, 05/18/2021, Additional history exists Albumin/Creatinine Ratio 09/02/2024 09/02/2023, 0810/2021 GFR 10/05/2024 04/04/2024, 03/04, 03/06/2024, Additional history exists Depression Monitoring 11/09/2024 11/09/2023 CKD PHOS USE SMARTSET 08271 11/25/2024 11/25/2023, 0 12/05/2022 HbA1c 11/25/2024 11/25/2023, 11/04, 05/04/2022, Additional history exists CKD HGB USE SMARTSET 06519 04/04/202504/04, 04/04/2024, 03/20/2024, Additional history exists DXA [...] this encounter Medical Devices Implanted Type Area Merchandising Representative Device Identifier Shelf Expiration Date Model / Serial / Lot Lens Intraoc 21.5 - [id number] - [id number] Implanted:Qty: 1 on 07/27/2019 by Tristian Araujo MD at OR [facility] Left: Eye BAUSCH & LOMB 04/02/2024 [id number] / [id number] / [id number] Lens Intraoc 21.5 - [id number] - [id number] Implanted:Qty: 1 on 08/08/2019 by Tristian Araujo MD at OR [facility] Right: Eye BAUSCH & LOMB 04/02/2024 [id number] / [id number] / [id number] Stent Axios [id number] - [id number] Implanted:Qty: 1 on 12/07/2022 by Tanya Morris MD at OR [facility] N/A: Abdomen [employer] : ENDOSCOPY [id number] 08/25/2023 [id number] / / [id number] Stent Bili Pigtail 7fr 100mm - [id number] Implanted:Qty: 1 on 12/07/2022 by Tanya Morris MD at OR [facility] N/A: Abdomen [employer] [id number] 08/03/2025 PBD-1033-0 710 / / 2YK Stent Bili Pigtail 7fr 100mm - [id number] Implanted:Qty: 1 on 12/07/2022 by Tanya Morris MD at OR [facility] N/A: Abdomen [employer] [id number] 08/03/2025 PBD-1033-0 710 / / 2YK Power Port 8fr Sngl Lumen Plas - [id number] Implanted:Qty: 1 on 12/29/2022 by Landon Hickman DO at OR [facility] Right: Chest CR BARD : PERIPHERAL VASCULAR [id number] 12/02/2023 [id number] / / [id number] Hanarostent Noncover 10dm 10cm - [id number] Implanted:Qty: 1 on 02/19/2023 by Tanya Morris MD at OR [facility] [employer] [id number] 12/31/2024 SHS-10-100 -180 / / [id number] documented as of this encounter Advance Directives * Full Code (Latest Code Status on File) Date Activated Date Inactivated Comments 12/04/2022 10:10 PM 12/08/2022 3:55 PM This order re flects the patients wishes and were consensually agreed upon. Question Answer Comments Discussion of Advance Directives occurred with: Patient Care Teams Rescue Boat Operator Relationship Specialty Start Date End Date Kristine Kan DO 293 [facility] [place] [address] PCP - General Family Medicine 03/16/24 documented as of this encounter
--- OUTSIDE RECORDS SUMMARY | 2024-06-06 23:39 | External Medical Summary ---
Author Name Unknown Address Unknown Organization [facility] [place] [address] Laboratory Report Ordering Provider Test Date Status TASHA MANN 04/04/2024 08:25:33 Final Observation Date Value Abnormality Reference (Units ) Status WBC, Total 04/04/2024 08:25:33 3.69 Below low normal 4. 00-10.80 (K/uL) Final RBC 04/04/2024 08:25:33 3.23 3.85-5.15 (M/uL) Final Hemoglobin 04/04/2024 08:25:33 11.1 Below low normal 12 .0-15.3 (g/dL) Final HCT 04/04/2024 08:25:33 34.0 Below low normal 36. 0-45.2 (%) Final MCV 04/04/2024 08:25:33 105.3 81.5-97.5 (fL) Final MCH 04/04/2024 08:25:33 34.4 27.0-34.0 (pg) Final MCHC 04/04/2024 08:25:33 32.6 32.0-36.0 (g/dL) Final RDW 04/04/2024 08:25:33 18.2 11.5-15.5 (%) Final Platelets 04/04/2024 08:25:33 201 140-400 (K /uL) Final MPV 04/04/2024 08:25:33 9.5 6.6-11.1 ( fL) Final Performing Location [facility] [place] [address]
--- OUTSIDE RECORDS SUMMARY | 2024-06-06 23:39 | External Medical Summary | Summary of Care ---
Author Name Unknown Organization [facility] Address [address] [place] [address] Phone [phone] Care Team Providers Care Recoverer Name Role Phone Kristine Kan Primary Care Provider [phone] Encounter Details Date Type Department Care Team (Late st Contact Info) Description 04/03/2024 Orders Only Hematology/Oncology [facility] Jessica [place] [address] [facility] [place] [phone] Hardik Gross MD [address] [place] [address] Allergies Active Allergy Reactions Criticality Noted Date [...] mcgIndications:Vitamin B 12 deficiency 1000 mcg IM [id number] 09/02/2023 08/03/2024 Active documented as of this [...] Description 04/04/2024 8:20 AM EDT Laboratory Laboratory Kory Lopez [place] [address] [place] [phone] Jessica Lab [facility] [address] [facility] [place] [address] 04/04/2024 3:20 PM EDT [facility] [place] [address] [place] [address] Lizandro Motta MD [address] [place] [address] 04/05/2024 1:00 PM EDT Hem/Onc Treatment Hematology/Oncology Treatment, [place] [address] [place] [phone] Jessica, Chair 4 Hem Onc [facility] [address] [place] [address] 04/12/2024 2:15 PM EDT Office Visit [facility]ematology[facility] [place] 200 [facility] [place], [place] [phone] Hardik Gross MD 200 [facility] [place], [place] [address] 05/05/2024 1:00 PM EDT Office Visit Family Practice [address], [place] 293 [facility] [place] [phone] Kristine Kan DO 293 [facility], [place] [address] Health Maintenance Due Date Last Done Comments COVID-19 Vaccine ( season) 2024 11/08/2023, 07/10/2022, 01/06/2022, Additional history exists Influenza Vaccine (FLU shot) (#1) 2024 06/30/2023, 07/18/2022, 05/18/2021, Additional history exists Albumin/Creatinine Ratio 09/02/2024 09/02/2023, 08/0 10/2021 GFR 09/19/2024 03/20/2024, 06/0 12/2023, 02/29/2024, Additional history exists Depression Monitoring 11/09/2024 11/09/2023 CKD PHOS USE SMARTSET 65162 11/25/2024 11/25/2023, 0 12/05/2022 HbA1c 11/25/2024 11/25/2023, 11/04, 05/04/2022, Additional history exists CKD HGB USE SMARTSET 02543 03/20/202503/20, 03/20/2024, 03/06/2024, Additional history exists DXA [...] this encounter Medical Devices Implanted Type Area Perinatology Physician Device Identifier Shelf Expiration Date Model / Serial / Lot Lens Intraoc 21.5 - [id number] - [id number] Implanted:Qty: 1 on 07/27/2019 by Tristian Araujo MD at OR [facility] Left: Eye BAUSCH & LOMB 04/02/2024 [id number] / [id number] / [id number] Lens Intraoc 21.5 - [id number] - [id number] Implanted:Qty: 1 on 08/08/2019 by Tristian Araujo MD at OR [facility] Right: Eye BAUSCH & LOMB 04/02/2024 [id number] / [id number] / [id number] Stent Axios [id number] - [id number] Implanted:Qty: 1 on 12/07/2022 by Tanya Morris MD at OR [facility] N/A: Abdomen [employer] : ENDOSCOPY [id number] 08/25/2023 [id number] / / [id number] Stent Bili Pigtail 7fr 100mm - [id number] Implanted:Qty: 1 on 12/07/2022 by Tanya Morris MD at OR [facility] N/A: Abdomen [employer] [id number] 08/03/2025 PBD-1033-0 710 / / [id number] Stent Bili Pigtail 7fr 100mm - [id number] Implanted:Qty: 1 on 12/07/2022 by Tanya Morris MD at OR [facility] N/A: Abdomen [employer] [id number] 08/03/2025 PBD-1033-0 710 / / 2YK Power Port 8fr Sngl Lumen Plas - [id number] Implanted:Qty: 1 on 12/29/2022 by Landon Hickman DO at OR [facility] Right: Chest CR BARD : PERIPHERAL VASCULAR [id number] 12/02/2023 [id number] / / [id number] Hanarostent Noncover 10dm 10cm - [id number] Implanted:Qty: 1 on 02/19/2023 by Tanya Morris MD at OR [facility] [employer] [id number] 12/31/2024 [facility]-10-100 -180 / / [id number] documented as of this encounter Advance Directives * Full Code (Latest Code Status on File) Date Activated Date Inactivated Comments 12/04/2022 10:10 PM 12/08/2022 3:55 PM This order re flects the patients wishes and were consensually agreed upon. Question Answer Comments Discussion of Advance Directives occurred with: Patient Care Teams Recoverer Relationship Specialty Start Date End Date Kristine Kan DO [address] [place] [address] PCP - General Family Medicine 03/16/24 documented as of this encounter
--- OUTSIDE RECORDS SUMMARY | 2024-06-06 23:39 | External Medical Summary | Summary of Care ---
Author Name Unknown Organization [facility] Address [address] [place] [address] Phone [phone] Care Team Providers Care Improvement Director Name Role Phone Kristine Kan DO Primary Care Provider [phone] Reason for Visit * Reason Onset Date Comments Advice 04/04/2024 Eliquis Test Results Lab 04/04/2024 ANC Encounter Details Date Type Department Care Team (Late st Contact Info) Description 04/04/2024 Telephone [facility]ology[facility] [address] [place] [phone] Hardik Gross MD [address] [facility] [address] Advice (Eliquis); Test Results Lab (ANC) Allergies [...] Tablet Therapy Pack (Eliquis DVT/PE Starter Pack)Indications:[place] 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 [...] mcgIndications:Vitamin B 12 deficiency 1000 mcg IM [id number] 09/02/2023 08/03/2024 Active documented as of this [...] appointment for tomorrow. - Scheduling labs at [facility] next Wednesday04/10/24 at 10AM "CBCD,CMP,Mag" - Schedule 2 hour treatment "Vitaline 5FU/Leucovorin/B12" documented in this encounter Plan of Treatment Upcoming Encounters Date Type Department Care Team (Late st Contact Info) Description 04/04/2024 3:20 PM EDT Office Visit Nephrology, [facility] [address] [place] [address] Lizandro Motta MD 200 [facility] [place] [address] 04/10/2024 9:40 AM EDT Laboratory Laboratory [facility] [place] [address] [place] [phone] Jessica, Lab [place] [address] [facility] [place] [address] 04/11/2024 2:00 PM EDT Hem/Onc Treatment Hematology/Oncology Treatment, [place] 200 [facility] [place] [phone] Jessica, Chair 1 Hem Onc [place] [address] [place] [address] 04/12/2024 2:15 PM EDT Office Visit Hematology/Oncology [facility] Jessica [place] [address] [place] [phone] Hardik Gross MD [address] [place] [address] 05/05/2024 1:00 PM EDT Office Visit Family Practice [address], [place] 293 [place] [address] Kristine Kan DO 293 [facility] [place] [address] Health Maintenance Due Date Last Done Comments COVID-19 Vaccine ( season) 2024 11/08/2023, 07/10/2022, 01/06/2022, Additional history exists Influenza Vaccine (FLU shot) (#1) 2024 06/30/2023, 07/18/2022, 05/18/2021, Additional history exists Albumin/Creatinine Ratio 09/02/2024 09/02/2023, 0810/2021 GFR 10/05/2024 04/04/2024, 03/04, 03/06/2024, Additional history exists Depression Monitoring 11/09/2024 11/09/2023 CKD PHOS USE SMARTSET 52709 11/25/2024 11/25/2023, 0 12/05/2022 HbA1c 11/25/2024 11/25/2023, 11/04, 05/04/2022, Additional history exists CKD HGB USE SMARTSET 76102 04/04/202504/04, 04/04/2024, 03/20/2024, Additional history exists DXA [...] this encounter Medical Devices Implanted Type Area Lipstick Molder Device Identifier Shelf Expiration Date Model / Serial / Lot Lens Intraoc 21.5 - [id number] - [id number] Implanted:Qty: 1 on 07/27/2019 by Tristian Araujo MD at OR [facility] Left: Eye BAUSCH & LOMB 04/02/2024 [id number] / [id number] / [id number] Lens Intraoc 21.5 - [id number] - [id number] Implanted:Qty: 1 on 08/08/2019 by Tristian Araujo MD at OR [facility] Right: Eye BAUSCH & LOMB 04/02/2024 [id number] / [id number] / [id number] Stent Axios [id number] - [id number] Implanted:Qty: 1 on 12/07/2022 by Tanya Morris MD at OR [facility] N/A: Abdomen [employer] : ENDOSCOPY [id number] 08/25/2023 [id number] / / [id number] Stent Bili Pigtail 7fr 100mm - [id number] Implanted:Qty: 1 on 12/07/2022 by Tanya Morris MD at OR [facility] N/A: Abdomen [employer] [id number] 08/03/2025 PBD-1033-0 710 / / [id number] Stent Bili Pigtail 7fr 100mm - [id number] Implanted:Qty: 1 on 12/07/2022 by Tanya Morris MD at OR [facility] N/A: Abdomen [employer] [id number] 08/03/2025 PBD-1033-0 710 / / 2YK Power Port 8fr Sngl Lumen Plas - [id number] Implanted:Qty: 1 on 12/29/2022 by Landon Hickman DO at OR [facility] Right: Chest CR BARD : PERIPHERAL VASCULAR [id number] 12/02/2023 [id number] / / [id number] Hanarostent Noncover 10dm 10cm - [id number] Implanted:Qty: 1 on 02/19/2023 by Tanya Morris MD at OR [facility] [employer] [id number] 12/31/2024 SHS-10-100 -180 / / [id number] documented as of this encounter Advance Directives * Full Code (Latest Code Status on File) Date Activated Date Inactivated Comments 12/04/2022 10:10 PM 12/08/2022 3:55 PM This order re flects the patients wishes and were consensually agreed upon. Question Answer Comments Discussion of Advance Directives occurred with: Patient Care Teams Improvement Director Relationship Specialty Start Date End Date Kristine Kan DO 293 [facility] [place] [address] PCP - General Family Medicine 03/16/24 documented as of this encounter
--- OUTSIDE RECORDS SUMMARY | 2024-06-06 23:40 | External Medical Summary | Summary of Care ---
Author Name Unknown Organization [facility] Address [address] [place] [address] Phone [phone] Care Team Providers Care Paper And Prints Restorer Name Role Phone ChrisblancaKristine schultz Primary Care Provider [phone] Reason for Visit * Reason Comments Procedure Pump d/c * Episode Based Medications (Routine) - Authorized Specialty Diagnoses / Procedures Referred By Marcela johansen Referred To Contact Diagnoses Carcinoma of gallbladder (HCC) Encounter for antineoplastic chemotherapy Procedures [place] LEUCOVORIN CALCIUM INJECTION [place] PALONOSETRON HCL [place] FLUOROURACIL INJECTION [place] OXALIPLATIN Hardik Gross MD 200 [facility] [place] [address] Anc Hem/Onc [address] [phone] Referral ID Status Reason Start Date Expiration Date V isits Requested Visits Authorized [id number] Authorized 12/14/2023 12/13/2024 999 [id number] Encounter Details Date Type Department Care Team (Latest Contact Info) Description 03/23/2024 12:15 PM EDT Immunization/ Injection Hematology/Oncology Treatment, [address] [phone] Nurse, Med 200 [facility] [place] [address] Carcinoma of gallbladder (HCC)*; Encounter for antineoplastic [...] mcgIndications:Vitamin B 12 deficiency 1000 mcg IM [id number] 09/02/2023 08/03/2024 Active documented as of this [...] as of this encounter Nursing Notes * Roxana Jade, RN - 03/23/2024 2:51 PM EDT Presents for pump d/c. 5FU infusion complete. Pt w/o complaints. Denies n/v, diarrhea. Port flushed. Pt discharged in stable condition. documented in this encounter Plan of Treatment Upcoming Encounters Date Type Department Care Team (Late st Contact Info) Description 03/28/2024 9:45 AM EDT Imaging Radiology [address] [facility] [place] [address] 04/04/2024 8:20 AM EDT Laboratory Laboratory [facility] [place] [address] [place] [phone] [place], Lab [place] [address] [address] [place] [address] 04/05/2024 1:00 PM EDT Hem/Onc Treatment Hematology/Oncology Treatment, [place] 200 [facility] [address] [place] [phone] Jessica, Chair 4 Hem Onc [address] [place] [address] 04/12/2024 2:15 PM EDT Office Visit Hematology/Oncology [facility] [place] 200 [facility] [place] [phone] Hardik Gross MD 200 [facility] [place] [address] 05/05/2024 1:00 PM EDT Office Visit Family Practice [address], [place] 293 [facility], [place] [address] Kristine Kan DO 293 [facility], [place] [address] 01/02/2025 10:00 AM EDT Office Visit Nephrology, [facility] [address] [place] [address] Lizandro Motta MD 200 [facility] [place] [address] Health Maintenance Due Date Last Done Comments COVID-19 Vaccine ( season) 2024 11/08/2023, 07/10/2022, 01/06/2022, Additional history exists Albumin/Creatinine Ratio 09/02/2024 09/02/2023, 08/0 10/2021 GFR 09/19/2024 03/20/2024, 06/0 12/2023, 02/29/2024, Additional history exists Depression Monitoring 11/09/2024 11/09/2023 CKD PHOS USE SMARTSET 03373 11/25/2024 11/25/2023, 0 12/05/2022 HbA1c 11/25/2024 11/25/2023, 11/04, 05/04/2022, Additional history exists CKD HGB USE SMARTSET 99845 03/20/202503/20, 03/20/2024, 03/06/2024, Additional history exists DXA [...] this encounter Medical Devices Implanted Type Area Platform Man Device Identifier Shelf Expiration Date Model / Serial / Lot Lens Intraoc 21.5 - [id number] - [id number] Implanted:Qty: 1 on 07/27/2019 by Tristian Araujo MD at OR [facility] Left: Eye BAUSCH & LOMB 04/02/2024 [id number] / [id number] / [id number] Lens Intraoc 21.5 - [id number] - [id number] Implanted:Qty: 1 on 08/08/2019 by Tristian Araujo MD at OR [facility] Right: Eye BAUSCH & LOMB 04/02/2024 [id number] / [id number] / [id number] Stent Axios 64qfl28my - [id number] Implanted:Qty: 1 on 12/07/2022 by Tanya Morris MD at OR [facility] N/A: Abdomen [employer] : ENDOSCOPY [id number] 08/25/2023 [id number] / / [id number] Stent Bili Pigtail 7fr 100mm - [id number] Implanted:Qty: 1 on 12/07/2022 by Tanya Morris MD at OR [facility] N/A: Abdomen [employer] [id number] 08/03/2025 PBD-1033-0 710 / / [id number] Stent Bili Pigtail 7fr 100mm - [id number] Implanted:Qty: 1 on 12/07/2022 by Tanya Morris MD at OR [facility] N/A: Abdomen [employer] [id number] 08/03/2025 PBD-1033-0 710 / / 2YK Power Port 8fr Sngl Lumen Plas - [id number] Implanted:Qty: 1 on 12/29/2022 by Landon Hickman DO at OR [facility] Right: Chest CR BARD : PERIPHERAL VASCULAR [id number] 12/02/2023 [id number] / / [id number] Hanarostent Noncover 10dm 10cm - [id number] Implanted:Qty: 1 on 02/19/2023 by Tanya Morris MD at OR [facility] [employer] [id number] 12/31/2024 SHS-10-100 -180 / / [id number] documented as of this encounter Visit Diagnoses [...] PRN Other, IV Flush, Starting on Karla 03/23/24 at 1246, Until Wed03/24/24 at 1245, For 24 hours, Do not flush if lock, PICC, or central line not in place; IV infusing or unable to flush. Given 03/23/2024 12:46 PM EDT 500 Units sodium chloride 0.9 % flush central line 10 mL 10 mL, IV Push, PRN Other, IV Flush, Starting on Karla 03/23/24 at 1246, Until Wed03/24/24 at 1245, For 24 hours, Do not flush if lock, PICC, or central line not in place; IV infusing or unable to flush. Given 03/23/2024 12:46 PM EDT 10 mL documented in this encounter Advance Directives * Full Code (Latest Code Status on File) Date Activated Date Inactivated Comments 12/04/2022 10:10 PM 12/08/2022 3:55 PM This order re flects the patients wishes and were consensually agreed upon. Question Answer Comments Discussion of Advance Directives occurred with: Patient Care Teams Paper And Prints Restorer Relationship Specialty Start Date End Date Kristine Kan DO 293 [place] [address] PCP - General Family Medicine 03/16/24 documented as of this encounter
--- OUTSIDE RECORDS SUMMARY | 2024-06-06 23:40 | External Medical Summary | Summary of Care ---
Author Name Unknown Organization [facility] Address [address] [place] [address] Phone [phone] Care Team Providers Care Ground Worker Name Role Phone Kristine Kan DO Primary Care Provider [phone] Reason for Visit * Reason Comments Follow Up Encounter Details Date Type Department Care Team (Late st Contact Info) Description 03/21/2024 3:40 PM EDT Office Visit Family Practice [address] [facility] [address] [place] [address] Kristine Kan DO [address] [place] [address] Acute 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 of both lower extremities (HCC)*; Acute midline thoracic back pain; Carcinoma of gallbladder (HCC) Allergies Active Allergy Reactions Criticality Noted Date Comments Latex Rash 06/28/2018 From a dressing Sulfamethoxazole Edema face/lips/tongue High 023 Trimethoprim Edema face/lips/tongue High 12/03/2022 documented as of this encounter (statuses as of 03/22/2024) Medications Medication Sig Dispensed Refills Start Date [...] Tablet Therapy Pack (Eliquis DVT/PE Starter Pack)Indications:Ac [place] 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 [...] mcgIndications:Vitamin B 12 deficiency 1000 mcg IM [id number] 09/02/2023 08/03/2024 Active Fluorouracil (5-Fu) 4,475 mg in NSS 138 mL infusion 4475 mg IV CONTINUOUS 03/21/2024 03/23/2024 Active documented as of this encounter (statuses as of 03/22/2024) Active Problems Problem Noted Date Diagnosed Date [...] as of this encounter (statuses as of 03/22/2024) Resolved Problems Problem Noted Date Diagnosed Date [...] as of this encounter (statuses as of 03/22/2024) Immunizations Name Administration Dates Next Due COVID-19 [...] Sign Reading Time Taken Comments Blood Pressure 116/76 03/21/2024 3:47 PM EDT Pulse 76 03/21/2024 3:47 PM EDT Temperature 36.3 C (97.4 F) 03/21/2024 3:47 PM ED T Respiratory Rate 12 03/21/2024 3:47 PM EDT Oxygen Saturation 100% 03/21/2024 3:47 PM EDT Inhaled Oxygen Concentration - - Weight 75.3 kg (165 lb 14.4 oz) 03/21/2024 3:47 PM EDT Height 165.1 cm (5' 5") 03/21/2024 3:47 PM EDT Body Mass Index 27.61 03/21/2024 3:47 PM EDT documented in this encounter Functional [...] as of this encounter Progress Notes * Kristine Kan, DO - 03/21/2024 3:54 PM EDT SUBJECTIVE: Chief Complaint Patient presents with Follow Up HPI: Anjelica Wiley is a 74 year old female who presents today for regular return. Pt notes that she is doing ok. She is a bit tired. She is on Eliquis for B/L DVT. She has some fatigue. Currently on last round of chemo prior to next set of scans. Pt notes that she had moved the wrong way when her was helping her with her compression hose. She has had middle back pain since. She has used lidocaine patches. She is using a heating pad. It bothers her when she is standing up. PHM: Patient Active Problem List Diagnosis Corneal [...] kidney disease (HCC) FERDINAND (generalized anxiety disorder) Current Outpatient Medications Medication Sig Dispense Refill [...] mouth in the morning. 90 Tablet 3 Artificial Tears 0.1-0.3 % Ophthalmic Solution (Dextran 70-Hypromellose) Instill into eye. Megestrol Acetate 625 MG/5ML Oral Suspension Take 4 ml by mouth daily 300 mL 3 [START ON 04/05/2024] Apixaban 5 MG Oral Tablet (Eliquis) Take 1 Tablet by mouth in the morning and 1Tablet before bedtime. Do not start before April 05, 2024. 60 Tablet 5 Potassium Chloride Karlene ER 10 MEQ Oral Tablet Extended Release Take 1 Tablet by mouth daily. (Patient not taking: Reported on 03/21/2024) 30 Tablet 3 Nirmatrelvir&Ritonavir 150/100 10 x 150 MG & 10 x 100MG Oral Tablet Therapy Pack (Paxlovid (150/100)) Take 1 pink tablet of Nirmatrelvir and 1 white tablet of Ritonavir two times a day by mouth. (Patient not taking: Reported on 09/02/2023) 20 Tablet 0 Apixaban Starter Pack 5 MG Oral Tablet Therapy Pack (Eliquis DVT/PE Starter Pack) 10 mg twice a dayby mouth for 7 days, then 5 mg by mouth twice a day. 74 Tablet 0 Current Facility-Administered Medications Medication Dose Route Frequency Provider Last Rate Last Admin vitamin b-12 (Cyanocobalamin) inj 1,000 mcg 1,000 mcg Intramuscular Q4 Weeks Kristine Kan DO 1,000 mcg at 09/02/23 1509 Fluorouracil (5-Fu) 4,475 mg in NSS 138 mL infusion 4,475 mg Intravenous Continuous Past Medical History: Diagnosis Date Breast cancer (HCC) 03/2017 left breast Depressive disorder, not elsewhere classified Hypertension Hypertention, malignant, with acute intensive management INFORMATION UTERINE PROLAPSE INFORMATION CYSTOCELE RSV infection Past Surgical History: Procedure Laterality Date DILATION AND CURETTAGE (D&C) 1985, D&C EGD, FLEXIBLE,W/ENDOSCOPIC US N/A 12/04/2022 [facility], EGD / EUS /severe stenosis was found in the duodenal bulb /mass found in gallbladder in duodenal wall / biopsies adenocarcinoma of the gallbladder EGD, W/ENDOSCOPIC US N/A 12/07/2022 severe duodenal bulb stenosis, large gallbladder mass precluding/ESOPHAGOGASTRODUODENOSCOPY (EGD), FLEXIBLE, TRANSORAL, ENDOSCOPIC ULTRASOUND performed by Tanya Morris MD at OR [facility] ERCP W/ STENT EXCHANGE N/A 02/19/2023 done through [facility] axios stent, severe stenosis in duodenal bulb/single malignant biliary stricture/plastic biliary stent exchanged for uncovered metal biliary stent/ENDOSCOPIC RETROGRADE CHOLANGIOPANCREATOGRAPHY (ERCP) W/STENT REMOVAL AND EXCHANGE; INC DILATION, GUIDE WIRE AND SPHINCTEROTOMY performed by Tanya Morris MD at OR [facility] ERCP, DIAGNOSTIC, SPECIMEN COLLECTION N/A 12/07/2022 ENDOSCOPIC RETROGRADE CHOLANGIOPANCREATOGRAPHY (ERCP) DIAGNOSTIC performed by Dee Pineda OR [facility] INFORMATION 12/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 INSER TUNN ACC DEV;5 YRS/OLDER Right 12/29/2022 INSERT TUNNELED CENTRAL VENOUS ACCESS WITH SUBQ PORT performed by Landon Hickman DO at OR [facility] LAPAROSCOPY DIAGNOSTIC 1988 for infertility MASTECTOMY, PARTIAL Left 05/13/2017 malignant RADIATION THERAPY Left 08/04/2017 RADIATION THERAPY DOSE PLAN Left 08/04/2017 RELIEVE INNER EYE PRESSURE Left 07/27/2019 left GONIOTOMY performed by Tristian Araujo MD at OR [facility] RELIEVE INNER EYE PRESSURE Right 08/08/2019 right GONIOTOMY performed by Tristian Arajuo MD at OR [facility] REMOVE CATARACT, INSERT LENS PROSTH Left 07/27/2019 left EXTRACAPSULAR CATARACT REMOVAL WITH INTRAOCULAR LENS performed by Tristian Araujo MD at OR [facility] REMOVE CATARACT, INSERT LENS PROSTH Right 08/08/2019 right EXTRACAPSULAR CATARACT REMOVAL WITH INTRAOCULAR LENS performed by Tristian Araujo MD at OR [facility] SENTINEL LYMPH NODE BIOPSY PERFORMED Left 05/13/2017 [...] REVIEW OF SYSTEMS: Review of Systems Constitutional: Positive for fatigue. Negative for chills, fever and unexpected weight change. Respiratory: Negative for cough, chest tightness, shortness of breath and wheezing. Cardiovascular: Negative for chest pain, palpitations and leg swelling. Gastrointestinal: Negative for abdominal pain, constipation, diarrhea, nausea and vomiting. Musculoskeletal: Positive for back pain. Negative for arthralgias, gait problem and joint swelling. Skin: Negative for color change, pallor and rash. OBJECTIVE: BP 116/76 (BP Site: Left Arm, BP Position: Sitting, BP Cuff Size: Regular) | Pulse 76 | Temp 36.3 C (97.4 F) (Tympanic) | Resp 12 | Ht 1.651 m (5' 5") | Wt 75.3 kg (165 lb 14.4 oz) | SpO2 100% | BMI 27.61 kg/m | BSA 1.86 m PHYSICAL EXAM: Physical Exam Constitutional: General: She is not in acute distress. Appearance: She is well-developed. Cardiovascular: Rate and Rhythm: Normal rate and [...] tenderness or deformity. Normal range of motion. Comments: Unable to elicit back pain Skin: General: Skin is warm and dry. Coloration: Skin is not pale. Findings: No erythema or rash. Neurological: Mental Status: She is alert and oriented to person, place, and time. ASSESSMENT/PLAN: (I82.433) Acute 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 of both lower extremities (HCC) (primary encounter diagnosis) Plan: pt will remain on Eliquis. No significant swelling. She will monitor. (M54.6) Acute midline thoracic back pain Plan: XR T SPINE ANY THREE VIEWS X-ray with possible lesion at T7 (was previously seen on CT). Will await radiology review. No obvious fracture. Symptomatic care for back pain reviewed. She will call with worsening. (C23) Carcinoma of gallbladder (HCC) Plan: Pt following with oncology. No changes presently. Follow-up: 3 months Total time today including reviewing chart before the visit, pertinent labs, imaging reports, face to face time, and documentation time was 34 minutes. Kristine Kan DO documented in this encounter Nursing Notes * Jen Slater LPN - 03/21/2024 3:45 PM EDT Patient here for follow up visit. Received chemo today. States she had a minor fall approx 1 month ago - stood from recliner, got woozy, started walking and fell over. Was not injured. Continues to have neuropathy. documented in this encounter Plan of Treatment Upcoming Encounters Date Type Department Care Team (Late st Contact Info) Description 03/23/2024 12:15 PM EDT Immunization/Injecti on Hematology/Oncology Treatment, [place] [address] [place] [phone] Nurse, Med [address] [facility] [place] [address] 03/28/2024 9:45 AM EDT Imaging Radiology [facility] 1st [facility], [place] [address] [facility] [place] [address] 04/04/2024 8:20 AM EDT Laboratory Laboratory [facility] [place] [address] [place] [phone] Jessica, Lab [facility] [address] [facility] [place] [address] 04/05/2024 1:00 PM EDT Hem/Onc Treatment Hematology/Oncology Treatment, [place] [address] [facility] [address] [address] [place] [phone] Jessica, Chair 4 Hem Onc [place] [address] [place] [address] 04/12/2024 2:15 PM EDT Office Visit Hematology/Oncology [facility] [place] [address] [place] [phone] Hardik Gross MD [address] [place] [address] 05/05/2024 1:00 PM EDT Office Visit Family Practice [address], [place] [address] [facility], [place] [address] Kristine Kan DO 293 [facility], [place] [address] 01/02/2025 10:00 AM EDT Office Visit Nephrology, [facility] [address] [place], [place] [address] Lizandro Motta MD [address] [place] [address] Pending Results Name Type Priority Associated Diagnoses Date /Time XR T SPINE ANY THREE VIEWS Medical Imaging Routine Acute midline thoracic back pain 03/21/2024 4:25 PM EDT Health Maintenance Due Date Last Done Comments COVID-19 Vaccine ( season) 2024 11/08/2023, 07/10/2022, 01/06/2022, Additional history exists Postponed from 01/03/2024 (Patient Declined After Education) Albumin/Creatinine Ratio 09/02/2024 09/02/2023, 08/0 10/2021 GFR 09/19/2024 03/20/2024, 06/12/2023, 02/29/2024, Additional history exists Depression Monitoring 11/09/2024 11/09/2023 CKD PHOS USE SMARTSET 30147 11/25/2024 11/25/2023, 0 12/05/2022 HbA1c 11/25/2024 11/25/2023, 11/04, 05/04/2022, Additional history exists CKD HGB USE SMARTSET 34372 03/20/202503/20, 03/20/2024, 03/06/2024, Additional history exists DXA Scan 12/16/2028 12/16/2021, 12/02, 10/08/2014, Additional history exists DTaP,Tdap,and Td Vaccines (4 - Td or Tdap) 02/07/2030 02/08/2020, 12/18/2009, 12/18/2009, Additional history exists Hepatitis B Completed 01/04/2008, 12/2006, 06/01/2007 Pneumococcal Vaccine: 65+ Years Completed 07/05/2018, 02/04/2017 Zoster Vaccines Completed 09/22/2020, 07/04, 08/20/2009, Additional history exists Influenza Vaccine (FLU shot) Completed 06/30/2023, 07/18/2022, 05/18/2021, Additional history exists GARDASIL-HPV IMMUNIZATION SERIES Aged Out No longer eligible based on patient's age to complete this topic MENINGOCOCCAL (MENACTRA/MENVEO) Aged Out No longer eligible based on patient's age to complete this topic documented as of this encounter Medical Devices Implanted Type Area Disbursement Clerk Device Identifier Shelf Expiration Date Model / Serial / Lot Lens Intraoc 21.5 - [id number] - [id number] Implanted:Qty: 1 on 07/27/2019 by Tristian Araujo MD at OR [facility] Left: Eye [employer] LOMB 04/02/2024 [id number] / [id number] / [id number] Lens Intraoc 21.5 - [id number] - [id number] Implanted:Qty: 1 on 08/08/2019 by Tristian Araujo MD at OR [facility] Right: Eye BAUSCH & LOMB 04/02/2024 [id number] / [id number] / [id number] Stent Axios [id number] - [id number] Implanted:Qty: 1 on 12/07/2022 by Tanya Morris MD at OR [facility] N/A: Abdomen [employer] : ENDOSCOPY [id number] 08/25/2023 [id number] / / [id number] Stent Bili Pigtail 7fr 100mm - [id number] Implanted:Qty: 1 on 12/07/2022 by Tanya Morris MD at OR [facility] N/A: Abdomen [employer] [id number] 08/03/2025 PBD-1033-0 710 / / [id number] Stent Bili Pigtail 7fr 100mm - [id number] Implanted:Qty: 1 on 12/07/2022 by Tanya Morris MD at OR [facility] N/A: Abdomen [employer] [id number] 08/03/2025 PBD-1033-0 710 / / 2YK Power Port 8fr Sngl Lumen Plas - [id number] Implanted:Qty: 1 on 12/29/2022 by Landon Hickman DO at OR [facility] Right: Chest CR BARD : PERIPHERAL VASCULAR [id number] 12/02/2023 [id number] / / [id number] Hanarostent Noncover 10dm 10cm - [id number] Implanted:Qty: 1 on 02/19/2023 by Tanya Morris MD at OR [facility] [employer] [id number] 12/31/2024 SHS-10-100 -180 / / [id number] documented as of this encounter Visit Diagnoses Diagnosis Acute 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 of both lower extremities (HCC)- Primary Acute midline thoracic back pain Carcinoma of gallbladder (HCC) Malignant neoplasm of gallbladder documented in this encounter Advance Directives * Full Code (Latest Code Status on File) Date Activated Date Inactivated Comments 12/04/2022 10:10 PM 12/08/2022 3:55 PM This order re flects the patients wishes and were consensually agreed upon. Question Answer Comments Discussion of Advance Directives occurred with: Patient Care Teams Ground Worker Relationship Specialty Start Date End Date Kristine Kan DO [address] [place] [address] PCP - General Family Medicine 03/16/24 documented as of this encounter
--- OUTSIDE RECORDS SUMMARY | 2024-06-06 23:40 | External Medical Summary | Summary of Care ---
Author Name Unknown Organization [facility] Address [address] [place] [address] Phone [phone] Care Team Providers Care Printing Roller Handler Name Role Phone Kristine Kan Primary Care Provider [phone] Encounter Details Date Type Department Care Team (Late st Contact Info) Description 03/14/2024 Orders Only Hematology/Oncology, [facility] [address] [place] [address] Hardik Gross MD [address] [place] [address] Allergies Active Allergy Reactions Criticality Noted Date Comments Latex Rash 06/28/2018 From a dressing Sulfamethoxazole Edema face/lips/tongue High 023 Trimethoprim Edema face/lips/tongue High 12/03/2022 documented as of this encounter (statuses as of 03/14/2024) Medications Medication Sig Dispensed Refills Start Date [...] mouth daily. 30 Tablet 3 07/13/2023 Active Nirmatrelvir&Ritona vir 150/100 10 x 150 MG [...] Tablet Therapy Pack (Eliquis DVT/PE Starter Pack)Indications:Ac [place] 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 [...] mcgIndications:Vitamin B 12 deficiency 1000 mcg IM [id number] 09/02/2023 08/03/2024 Active documented as of this encounter (statuses as of 03/14/2024) Active Problems Problem Noted Date Diagnosed Date [...] as of this encounter (statuses as of 03/14/2024) Resolved Problems Problem Noted Date Diagnosed Date [...] as of this encounter (statuses as of 03/14/2024) Immunizations Name Administration Dates Next Due COVID-19 [...] money to get more. Never true 11/09/2023 Sex and Gender Information Value Date [...] Care Team (Late st Contact Info) Description 03/15/2024 1:00 PM EDT Imaging Radiology [facility] 1st [facility], [place] [address] [facility] [place] [address] 03/20/2024 10:10 AM EDT Laboratory Laboratory [facility] Jessica [place] [address] [place] [phone] [facility] [address] [place] [address] 03/21/2024 1:00 PM EDT Hem/Onc Treatment Hematology/Oncology Treatment, [place] [address] [place] [phone] Jessica, Chair 5 Hem Onc [facility] [address] [facility] [place] [address] 03/21/2024 3:40 PM EDT Office Visit Family Practice [address], [place] [address] [facility], [place] [phone] Kristine Kan DO [address] [facility], [place] [address] 03/28/2024 9:45 AM EDT Imaging Radiology [address], [place] [address] [facility] [place] [address] 04/12/2024 2:15 PM EDT Office Visit Hematology/Oncology [facility] [place] [address] [facility] [place] [phone] Hardik Gross MD 200 [facility] [place] [address] 01/02/2025 10:00 AM EDT Office Visit Nephrology, [facility] [address] [facility] [place] [address] Lizandro Motta MD 200 [facility] [place] [address] Health Maintenance Due Date Last Done Comments COVID-19 Vaccine ( season) 2024 11/08/2023, 07/10/2022, 01/06/2022, Additional history exists Albumin/Creatinine Ratio 09/02/2024 09/02/2023, 08/0 10/2021 GFR 09/05/2024 03/06/2024, 02/02, 02/21/2024, Additional history exists Depression Monitoring 11/09/2024 11/09/2023 CKD PHOS USE SMARTSET 97511 11/25/2024 11/25/2023, 0 12/05/2022 HbA1c 11/25/2024 11/25/2023, 11/04, 05/04/2022, Additional history exists CKD HGB USE SMARTSET 55790 03/06/202503/06, 03/06/2024, 02/29/2024, Additional history exists DXA Scan 12/16/2028 12/16/2021, [...] this encounter Medical Devices Implanted Type Area Clinical Lab Assistant Device Identifier Shelf Expiration Date Model / Serial / Lot Lens Intraoc 21.5 - [id number] - [id number] Implanted:Qty: 1 on 07/27/2019 by Tristian Araujo MD at OR [facility] Left: Eye [employer]CH [employer] LOMB 04/02/2024 [id number] / [id number] / [id number] Lens Intraoc 21.5 - [id number] - [id number] Implanted:Qty: 1 on 08/08/2019 by Tristian Araujo MD at OR [facility] Right: Eye BAUSCH & LOMB 04/02/2024 [id number] / [id number] / [id number] Stent Axios [id number] - [id number] Implanted:Qty: 1 on 12/07/2022 by Tanya Morris MD at OR [facility] N/A: Abdomen [employer] : ENDOSCOPY [id number] 08/25/2023 [id number] / / [id number] Stent Bili Pigtail 7fr 100mm - [id number] Implanted:Qty: 1 on 12/07/2022 by Tanya Morris MD at OR [facility] N/A: Abdomen [employer] [id number] 08/03/2025 PBD-1033-0 710 / / [id number] Stent Bili Pigtail 7fr 100mm - [id number] Implanted:Qty: 1 on 12/07/2022 by Tanya Morris MD at OR [facility] N/A: Abdomen [employer] [id number] 08/03/2025 PBD-1033-0 710 / / 2YK Power Port 8fr Sngl Lumen Plas - [id number] Implanted:Qty: 1 on 12/29/2022 by Landon Hickman DO at OR [facility] Right: Chest CR BARD : PERIPHERAL VASCULAR [id number] 12/02/2023 [id number] / / [id number] Hanarostent Noncover 10dm 10cm - [id number] Implanted:Qty: 1 on 02/19/2023 by Tanya Morris MD at OR [facility] [employer] [id number] 12/31/2024 SHS-10-100 -180 / / [id number] documented as of this encounter Advance Directives * Full Code (Latest Code Status on File) Date Activated Date Inactivated Comments 12/04/2022 10:10 PM 12/08/2022 3:55 PM This order re flects the patients wishes and were consensually agreed upon. Question Answer Comments Discussion of Advance Directives occurred with: Patient Care Teams Printing Roller Handler Relationship Specialty Start Date End Date Kristine Kan DO [address] [place] [address] PCP - General Family Medicine 12/18/22 documented as of this encounter
--- OUTSIDE RECORDS SUMMARY | 2024-06-06 23:40 | External Medical Summary | Summary of Care ---
Author Name Unknown Organization [facility] Address [address] [place] [address] Phone [phone] Care Team Providers Care Award Machine Operator Name Role Phone Kristine Kan Primary Care Provider [phone] Reason for Visit * Reason Comments Outpatient Testing Encounter Details Date Type Department Care Team (Late st Contact Info) Description 03/20/2024 10:10 AM EDT Laboratory [facility] [address] [place] [phone] [facility] [address] [place] [address] Carcinoma of gallbladder (HCC) Allergies Active Allergy Reactions Criticality Noted Date Comments Latex Rash 06/28/2018 From a dressing Sulfamethoxazole Edema face/lips/tongue High 023 Trimethoprim Edema face/lips/tongue High 12/03/2022 documented as of this encounter (statuses as of 03/20/2024) Medications Medication Sig Dispensed Refills Start Date [...] Therapy Pack (Eliquis DVT/PE Starter Pack)Indications:Ac [place] 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 [...] mcgIndications:Vitamin B 12 deficiency 1000 mcg IM [id number] 09/02/2023 08/03/2024 Active documented as of this encounter (statuses as of 03/20/2024) Active Problems Problem Noted Date Diagnosed Date [...] as of this encounter (statuses as of 03/20/2024) Resolved Problems Problem Noted Date Diagnosed Date [...] as of this encounter (statuses as of 03/20/2024) Immunizations Name Administration Dates Next Due COVID-19 [...] PM EDT Hem/Onc Treatment Hematology/Oncolog y Treatment, [place] [address] [place] [address] Jessica, Chair 5 Hem Onc [address] [place] [address] Carcinoma of gallbladder (HCC)*; Encounter for antineoplastic chemotherapy 03/21/2024 3:40 PM EDT Office Visit Family Practice [address], [place] [address] [place], [place] [address] Kristine Kan DO 293 [facility], [place] [address] 03/28/2024 9:45 AM EDT Imaging Radiology [address], [place] [address] [facility] [place] [address] 04/12/2024 2:15 PM EDT Office [facility] [address] [place] [phone] Hardik Gross MD [address] [facility] [place] [address] 01/02/2025 10:00 AM EDT Office Visit Nephrology, [facility] Jessica [address] [place] [address] Lizandro Motta MD 200 [facility] [address] [place] [address] Health Maintenance Due Date Last Done Comments COVID-19 Vaccine ( season) 2024 11/08/2023, 07/10/2022, 01/06/2022, Additional history exists Albumin/Creatinine Ratio 09/02/2024 09/02/2023, 080 10/2021 GFR 09/19/2024 03/20/2024, 060 12/2023, 02/29/2024, Additional history exists Depression Monitoring 11/09/2024 11/09/2023 CKD PHOS USE SMARTSET 23865 11/25/2024 11/25/2023, 0 12/05/2022 HbA1c 11/25/2024 11/25/2023, 11/04, 05/04/2022, Additional history exists CKD HGB USE SMARTSET 98750 03/20/202503/20, 03/20/2024, 03/06/2024, Additional history exists DXA [...] this encounter Medical Devices Implanted Type Area Syrup Mixer Device Identifier Shelf Expiration Date Model / Serial / Lot Lens Intraoc 21.5 - [id number] - [id number] Implanted:Qty: 1 on 07/27/2019 by Tristian Araujo MD at OR [facility] Left: Eye BAUSCH & LOMB 04/02/2024 [id number] / [id number] / [id number] Lens Intraoc 21.5 - [id number] - [id number] Implanted:Qty: 1 on 08/08/2019 by Tristian Araujo MD at OR [facility] Right: Eye BAUSCH & LOMB 04/02/2024 [id number] / [id number] / [id number] Stent Axios [id number] - [id number] Implanted:Qty: 1 on 12/07/2022 by Tanya Morris MD at OR [facility] N/A: Abdomen [employer] : ENDOSCOPY [id number] 08/25/2023 [id number] / / [id number] Stent Bili Pigtail 7fr 100mm - [id number] Implanted:Qty: 1 on 12/07/2022 by Tanya Morris MD at OR [facility] N/A: Abdomen [employer] [id number] 08/03/2025 PBD-1033-0 710 / / [id number] Stent Bili Pigtail 7fr 100mm - [id number] Implanted:Qty: 1 on 12/07/2022 by Tanya Morris MD at OR [facility] N/A: Abdomen [employer] [id number] 08/03/2025 PBD-1033-0 710 / / 2YK Power Port 8fr Sngl Lumen Plas - [id number] Implanted:Qty: 1 on 12/29/2022 by Landon Hickman DO at OR [facility] Right: Chest CR BARD : PERIPHERAL VASCULAR [id number] 12/02/2023 [id number] / / [id number] Hanarostent Noncover 10dm 10cm - [id number] Implanted:Qty: 1 on 02/19/2023 by Tanya Morris MD at OR [facility] [employer] [id number] 12/31/2024 [facility]-10-100 -180 / / [id number] documented as of this encounter Procedures Procedure Name Priority Date/Time Associated Diagnosis Comments DIFFERENTIAL, AUTOMATED STAT 03/20/2024 10:11 AM EDT Carcinoma of gallbladder (HCC) COMPREHENSIVE METABOLIC PANEL STAT 03/20/2024 10:11 AM EDT Carcinoma of gallbladder (HCC) CBC STAT 03/20/2024 10:11 AM EDT Carcinoma of gallbladder (HCC) CBC STAT 03/20/2024 10:11 AM EDT Carcinoma of gallbladder (HCC) MAGNESIUM STAT 03/20/2024 10:11 AM EDT Carcinoma of gallbladder (HCC) documented in this encounter Results * DIFFERENTIAL, AUTOMATED (03/20/2024 10:11 AM EDT) WBC 5.88 4.00 - 10.80 K/uL [facility] Neutrophils % 58.3 40.0 - 75.0 % 03/20/2024 10:19 AM EDT [facility] 56-02 Lymphocytes % 31.8 18.0 - 42.0 % 03/20/2024 10:19 AM EDT [facility] 56-02 Monocytes % 7.5 1.0 - 11.0 % 03/20/2024 10:19 AM EDT [facility] 56-02 Eosinophils % 1.9 0.0 - 6.0 % 03/20/2024 10:19 AM EDT [facility] 56-02 Basophils % 0.5 0.0 - 2.0 % 03/20/2024 10:19 AM EDT [facility] 56-02 Absolute Neutrophils 3.43 1.80 - 7.70 K/uL 03/20/2024 10:19 AM EDT [facility] 56-02 Absolute Lymphocytes 1.87 1.00 - 4.80 K/ul 03/20/2024 10:19 AM EDT [facility] 56-02 Absolute Monocytes 0.44 0.00 - 1.10 K/uL 03/20/2024 10:19 AM EDT [facility] 56-02 Absolute Eosinophils 0.11 0.00 - 0.70 K/uL 03/20/2024 10:19 AM EDT [facility] 56-02 Absolute Basophils 0.03 0.00 - 0.20 K/uL 03/20/2024 10:19 AM T [facility] 56-02 Blood Venous blood specimen / Unknown Venipuncture / Unknown 03/20/2024 10:11 AM EDT 03/20/2024 10:11 AM EDT Hardik Gross MD LAB BLOOD ORDERA BLES [facility] 56-[address] [place] [address] * (ABNORMAL) CBC (03/20/2024 10:11 AM EDT) WBC 5.88 4.00 - 10.80 K/uL 03/20/2024 10:19 AM EDT [facility] 56-02 RBC 3.17 3.85 - 5.15 M/uL 03/20/2024 10:19 AM EDT [address] HGB 10.7(L) 12.0 - 15.3 g/dL 03/20/2024 10:19 AM EDT [address] HCT 33.5(L) 36.0 - 45.2 % 03/20/2024 10:19 AM EDT [address] MCV 105.7 81.5 - 97.5 fL 03/20/2024 10:19 AM EDT [address] MCH 33.8 27.0 - 34.0 pg 03/20/2024 10:19 AM EDT [address] MCHC 31.9 32.0 - 36.0 g/dL 03/20/2024 10:19 AM EDT [address] RDW 18.9 11.5 - 15.5 % 03/20/2024 10:19 AM EDT [address] PLT 154 140 - 400 K/uL 03/20/2024 10:19 AM EDT [address] MPV 9.4 6.6 - 11.1 fL 03/20/2024 10:19 AM EDT [facility] 56 Blood Venous blood specimen / Unknown Venipuncture / Unknown 03/20/2024 10:11 AM EDT 03/20/2024 10:11 AM EDT Hardik Gross MD LAB BLOOD ORDERA BLES [address] [place], [place] [id number] * MAGNESIUM (03/20/2024 10:11 AM EDT) Magnesium 1.7 1.5 - 2.6 mg/dL 03/20/2024 10:48 AM EDT [facility] Blood Venous blood specimen / Unknown Venipuncture / Unknown 03/20/2024 10:11 AM EDT 03/20/2024 10:11 AM EDT Hardik Gross MD LAB BLOOD ORDERA BLES [facility] [address] [place] [address] * (ABNORMAL) COMPREHENSIVE METABOLIC PANEL (03/20/2024 10:11 AM EDT) BUN 25(H) 6 - 20 mg/dL 03/20/2024 10:48 AM EDT [address] Creatinine 1.5(H) 0.5 - 1.0 mg/dL 03/20/2024 10:48 AM EDT [address] Estimated Glomerular Filtration Rate 35(L) >=60 mL/min 03/20/2024 10:48 AM T [facility] Comment:eGFR is calculated b ased on the CKD-EPI 2020 equation Sodium 137 135 - 146 mmol/L 03/20/2024 10:48 AM T [facility] 56 Potassium 4.1 3.5 - 5.1 mmol/L 03/20/2024 10:48 AM EDT [facility] 56 Chloride 105 98 - 107 mmol/L 03/20/2024 10:48 AM T [facility] 56 CO2 19(L) 22 - 32 mmol/L 03/20/2024 10:48 AM EDT [facility] 56 Anion Gap 13 7 - 15 mmol/L 03/20/2024 10:48 AM T [facility] 56 Glucose 129(H) 70 - 120 mg/dL 03/20/2024 10:48 AM EDT [facility] 56 Albumin 3.7(L) 3.8 - 5.0 g/dL 03/20/2024 10:48 AM EDT [facility] 56 AST 15 10 - 35 U/L 03/20/2024 10:48 AM EDT [facility] 56 Alkaline Phosphatase 68 35 - 130 U/L 03/20/2024 10:48 AM T [facility] 56 Bilirubin, Total 0.4 <=1.2 mg/dL 03/20/2024 10:48 AM EDT [facility] 56 Calcium 9.3 8.4 - 10.2 mg/dL 03/20/2024 10:48 AM EDT [facility] 56 Protein 6.4 6.0 - 8.3 g/dL 03/20/2024 10:48 AM EDT [facility] 56 ALT 8(L) 10 - 35 U/L 03/20/2024 10:48 AM EDT [facility] 56 Blood Venous blood specimen / Unknown Venipuncture / Unknown 03/20/2024 10:11 AM EDT 03/20/2024 10:11 AM EDT Hardik Gross MD LAB BLOOD ORDERA BLES [facility] [address] [place] [address] documented in this encounter Visit Diagnoses Diagnosis Carcinoma of gallbladder (HCC) Malignant neoplasm of gallbladder Carcinoma of gallbladder (HCC)- Primary Malignant neoplasm of gallbladder Encounter for antineoplastic chemotherapy documented in this encounter Advance Directives * Full Code (Latest Code Status on File) Date Activated Date Inactivated Comments 12/04/2022 10:10 PM 12/08/2022 3:55 PM This order re flects the patients wishes and were consensually agreed upon. Question Answer Comments Discussion of Advance Directives occurred with: Patient Care Teams Award Machine Operator Relationship Specialty Start Date End Date Kristine Kan DO 293 [place] [address] PCP - General Family Medicine 03/16/24 documented as of this encounter
--- OUTSIDE RECORDS SUMMARY | 2024-06-06 23:40 | External Medical Summary | Summary of Care ---
Author Name Unknown Organization [facility] Address [address] [place] [address] Phone [phone] Care Team Providers Care Software Manager Name Role Phone Kristine Kan Primary Care Provider [phone] Reason for Visit * Reason Comments Chemotherapy C6D1 5-FU, Leucovori n * Episode Based Medications (Routine) - Authorized Specialty Diagnoses / Procedures Referred By Contac t Referred To Contact Diagnoses Carcinoma of gallbladder (HCC) Encounter for antineoplastic chemotherapy Procedures AL LEUCOVORIN CALCIUM INJECTION AL PALONOSETRON HCL AL FLUOROURACIL INJECTION AL OXALIPLATIN Hardik Gross MD 200 [facility] [address] Anc Hem/Onc [address] [address] Referral ID Status Reason Start Date Expiration Date V isits Requested Visits Authorized [id number] Authorized 12/14/2023 12/13/2024 999 [id number] Encounter Details Date Type Department Care Team (Latest Contact Info) Description 03/21/2024 1:00 PM EDT Hem/Onc Treatment Hematology/Oncolog y Treatment, [address] [address] Jessica, Chair [address] Hem On[address] [place] [address] Carcinoma of gallbladder (HCC)*; Encounter for antineoplastic chemotherapy Allergies Active Allergy Reactions Criticality Noted Date Comments Latex Rash 06/28/2018 From a dressing Sulfamethoxazole Edema face/lips/tongue High 023 Trimethoprim Edema face/lips/tongue High 12/03/2022 documented as of this encounter (statuses as of 03/21/2024) Medications Medication Sig Dispensed Refills Start Date [...] Tablet Therapy Pack (Eliquis DVT/PE Starter Pack)Indications:Ac [place] 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 [...] mcgIndications:Vitamin B 12 deficiency 1000 mcg IM [id number] 09/02/2023 08/03/2024 Active documented as of this encounter (statuses as of 03/21/2024) Active Problems Problem Noted Date Diagnosed Date [...] as of this encounter (statuses as of 03/21/2024) Resolved Problems Problem Noted Date Diagnosed Date [...] as of this encounter (statuses as of 03/21/2024) Immunizations Name Administration Dates Next Due COVID-19 [...] Nursing Notes * Karey Argueta RN - 03/21/2024 2:33 PM EDT Chair [...] EDT Office Visit Family Practice [address], [place] 293 [place] [address] Kristine Kan DO 293 [facility] [address] 03/23/2024 12:15 PM EDT Immunization/Injecti on Hematology/Oncology Treatment, [place] 200 [facility] [place] [phone] Nurse, Med 200 [facility] [place] [address] 03/28/2024 9:45 AM EDT Imaging Radiology [facility], [place] [address] [facility] [place] [address] 04/04/2024 8:20 AM EDT Laboratory Laboratory [facility] [address] [place] [phone] Park, Lab [facility] 200 [facility] [place] [address] 04/05/2024 1:00 PM EDT Hem/Onc Treatment Hematology/Oncology Treatment, [place] [address] [facility] [place] [address] Park, Chair 4 Hem Onc [facility] 200 [facility] [place] [address] 04/12/2024 2:15 PM EDT Office Visit Hematology/Oncology [facility] [place] 200 [facility] [place], [place] [phone] Hardik Gross MD 200 [facility] [place] [address] 01/02/2025 10:00 AM EDT Office Visit Nephrology, [facility] 200 [facility] [place] [address] Lizandro Motta MD 200 [facility] [place] [address] Health Maintenance Due Date Last Done Comments COVID-19 Vaccine ( season) 2024 11/08/2023, 07/10/2022, 01/06/2022, Additional history exists Albumin/Creatinine Ratio 09/02/2024 09/02/2023, 08/0 10/2021 GFR 09/19/2024 03/20/2024, 06/0 12/2023, 02/29/2024, Additional history exists Depression Monitoring 11/09/2024 11/09/2023 CKD PHOS USE SMARTSET 67829 11/25/2024 11/25/2023, 0 12/05/2022 HbA1c 11/25/2024 11/25/2023, 11/04, 05/04/2022, Additional history exists CKD HGB USE SMARTSET 69729 03/20/202503/20, 03/20/2024, 03/06/2024, Additional history exists DXA [...] this encounter Medical Devices Implanted Type Area Storekeeper Helper Device Identifier Shelf Expiration Date Model / Serial / Lot Lens Intraoc 21.5 - [id number] - [id number] Implanted:Qty: 1 on 07/27/2019 by Tristian Araujo MD at OR [facility] Left: Eye BAUSCH [employer] LOMB 04/02/2024 [id number] / [id number] / [id number] Lens Intraoc 21.5 - [id number] - [id number] Implanted:Qty: 1 on 08/08/2019 by Tristian Araujo MD at OR [facility] Right: Eye BAUSCH & LOMB 04/02/2024 [id number] / [id number] / [id number] Stent Axios 01usr66pa - [id number] Implanted:Qty: 1 on 12/07/2022 by Tanya Morris MD at [facility] N/A: Abdomen [employer] : ENDOSCOPY [id number] 08/25/2023 [id number] / / [id number] Stent Bili Pigtail 7fr 100mm - [id number] Implanted:Qty: 1 on 12/07/2022 by Tanya Morris MD at [facility] N/A: Abdomen [employer] [id number] 08/03/2025 PBD-1033-0 710 / / [id number] Stent Bili Pigtail 7fr 100mm - [id number] Implanted:Qty: 1 on 12/07/2022 by Tanya Morris MD at [facility] N/A: Abdomen [employer] [id number] 08/03/2025 PBD-1033-0 710 / / 2YK Power Port 8fr Sngl Lumen Plas - [id number] Implanted:Qty: 1 on 12/29/2022 by Landon Hickman DO at OR [facility] Right: Chest CR BARD : PERIPHERAL VASCULAR [id number] 12/02/2023 [id number] / / [id number] Hanarostent Noncover 10dm 10cm - [id number] Implanted:Qty: 1 on 02/19/2023 by Tanya Morris MD at OR [facility] [employer] [id number] 12/31/2024 [facility]-10-100 -180 / / [id number] documented as of this encounter Visit Diagnoses Diagnosis Carcinoma of gallbladder (HCC)- Primary Malignant neoplasm of gallbladder Encounter for antineoplastic chemotherapy documented in this encounter Administered Medications Active Administered Medications - up to 3 most recent administrations Medication Order MAR Action Action Date Dose Rate Site diphenhydrAMINE (Benadryl) inj 50 mg 50 mg, IV Push, ONCE PRN Other, Hypersensitivity Reaction, Starting on Wed03/21/24 at 1315, Until Wed03/22/24 at 1314, For 24 hours EPINEPHrine 1 MG/ML inj 0.3 mg 0.3 mg, Intramuscular, ONCE PRN Other, Hypersensitivity Reaction or Anaphylaxis, Starting on Wed03/21/24 at 1315, Until Wed03/22/24 at 1314, For 24 hours hEParin 100 UNIT/ML Lock Flush inj 500 Units 500 Units (5 mL), IV Lock, PRN Other, IV Flush, Starting on Wed03/21/24 at 1315, Until Wed03/22/24 at 1314, For 24 hours, Do not flush if lock, PICC, or central line not in place; IV infusing or unable to flush. Hydrocortisone Sod Suc (PF) (Solu-Cortef) inj 100 mg 100 mg, IV Push, ONCE PRN Other, Hypersensitivity Reaction, Starting on Wed03/21/24 at 1315, Until Wed03/22/24 at 1314, For 24 hours LORAzepam (Ativan) tab 0.5 mg 0.5 mg, Oral, ONCE PRN Anxiety, Nausea, Starting on Wed03/21/24 at 0830, Until Discontinued NSS infusion FOR HYDRATION Intravenous, at 50 mL/hr Administer over 10 Hours, PRN, Starting on Wed03/21/24 at 1315, Until Discontinued Start Infusion 03/21/2024 1:33 PM EDT 500 mL 50 mL/hr oxygen GAS Inhalation, OXYGEN, First dose on Wed03/21/24 at 1600, Until Discontinued, Device/Managed by: Low [...] Push, PRN Other, IV Flush, Starting on Wed03/21/24 at 1315, Until Wed03/22/24 at 1314, For 24 hours, Do not flush if [...] 1:35 PM EDT 750 mg 510 mL/hr ondansetron [...] Advance Directives occurred with: Patient Care Teams Software Manager Relationship Specialty Start Date End Date Kristine Kan DO 293 [facility] [place] [address] PCP - General Family Medicine 03/16/24 documented as of this encounter
--- OUTSIDE RECORDS SUMMARY | 2024-06-06 23:40 | External Medical Summary | Summary of Care ---
Author Name Unknown Organization [facility] Address [address] [place] [address] Phone [phone] Care Team Providers Care Casing Soaker Name Role Phone Kristine Kan DO Primary Care Provider [phone] Reason for Visit * Reason Comments Follow Up 3 week follow up Encounter Details Date Type Department Care Team (Late st Contact Info) Description 03/14/2024 2:25 PM EDT Office Visit Hematology/Oncology [facility] 200 [facility] [place] [phone] Hardik Gross MD 200 [place] [address] Carcinoma of gallbladder (HCC)* Allergies Active Allergy [...] Tablet Therapy Pack (Eliquis DVT/PE Starter Pack)Indications:Ac hughes 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 [...] mcgIndications:Vitamin B 12 deficiency 1000 mcg IM [id number] 09/02/2023 08/03/2024 Active documented as of this encounter (statuses as of 03/14/2024) Active Problems Problem Noted Date Diagnosed Date FERIDNAND (generalized anxiety disorder) 11/09/2023 Hypertensive kidney disease [...] Sign Reading Time Taken Comments Blood Pressure 145/89 03/14/2024 2:14 PM EDT Pulse 87 03/14/2024 2:14 PM EDT Temperature 36.6 C (97.9 F) 03/14/2024 2:14 PM ED T Respiratory Rate - - Oxygen Saturation 98% 03/14/2024 2:14 PM EDT Inhaled Oxygen Concentration - - Weight 74.2 kg (163 lb 8 oz) 03/14/2024 2:14 PM EDT Height - - Body Mass Index 27.21 01/11/2024 2:35 PM EDT documented in this [...] Progress Notes * Hardik Gross MD - 03/14/2024 2:15 PM EDT Outpatient Consult Note Data Source: Patient, Epic record. Data Source: Patient, Epic record. 03/14/2024 2:15 PM Anjelica Wiley [id number] 74 year old Patient Encounter: HEMATOLOGY/ONCOLOGY [facility] Cancer Diagnosis: Adenocarcinoma of gallbladder History of Left breast cancer, stage IA p T1 c p N0 ER strongly+ RI weakly + Her 2 ирина negative Current [...] cpN0 disease with ER strongly positive and RI weakly positive and HER2 Ирина negative. Oncotype DX recurrence score was 12. She completed radiation therapy and 5 years of tamoxifen. She completed 5 years in August 2022. Patient was seen by Dr. Hannon at [facility] for 2nd opinion and he recommended durvalumab with gemcitabine and cisplatin combination. If she fails this combination then will be eligible for clinical trial or consider capecitabine plus oxaliplatin or FOLFOX. Interval History: She had issues with the bilateral lower extremity swelling and had ultrasound done which revealed acute deep venous thrombosis in the bilateral lower extremity. Currently she is on Eliquis with improvement in the swelling. Because of the side effects oxaliplatin was omitted from the last cycle of the chemotherapy. Overall clinically she is feeling better and stronger without any new symptoms. LABS/IMAGING: Results for orders placed or performed in visit on 03/08/24 ECHO, COMPLETE (2D), TRANS-THORACIC Result Value Ref Range LEFT VENTRICULAR EJECTION FRACTION 55 % *Note: Due to a large number of results and/or encounters for the requested time period, some results have not been displayed. A complete set of results can be found in Results Review. REVIEW OF SYSTEMS: General: No Fever, chills, [...] bleeding Genitourinary: Denies Hematuria or dysuria Musculoskeletal: No bone pain Psychiatric: No vegetative signs of depression Endocrine: [...] as needed. (Patient not taking: Reported on 01/11/2024) Calcium Carbonate-Vitamin D 600-400 MG-UNIT Oral Tablet [...] Tablet by mouth daily. 30 Tablet 3 Nirmatrelvir&Ritonavir 150/100 10 x 150 MG & 10 x 100MG Oral Tablet Therapy Pack (Paxlovid (150/100)) Take 1 pink tablet of Nirmatrelvir and 1 white tablet of Ritonavir two times a day by mouth. (Patient not taking: Reported on 09/02/2023) 20 Tablet 0 Ketoconazole 2 % External Cream Apply to [...] mcg 1,000 mcg Intramuscular Q4 Weeks Kristine Kan, DO 1,000 mcg at 09/02/23 1509 Social [...] Healthy appearing patient in no acute distress BP 145/89 (BP Site: Right Arm, BP Position: Sitting, BP Cuff Size: Regular) | Pulse 87 | Temp 36.6 C (97.9 F) (Tympanic) | Wt 74.2 kg (163 lb 8 oz) | SpO2 98% | BMI 27.21 kg/m | BSA 1.84 m Vitals reviewed. HEENT: No oral or [...] Good pulses bilaterally, no peripheral edema. ASSESSMENT: 73-year-old female with history of breast cancer underwent [...] spread of the tumor. She went to [facility] and was seen by Dr. Laura for [...] was more than 10,000. Dr. Laura from [facility] recommended FOLFOX or CAPOX protocol for further treatment. Currently she is on FOLFOX. Dose of oxaliplatin was reduced because of the neuropathy. Because of the toxicity oxaliplatin was omitted from the last cycle of chemotherapy. She also had swelling of the lower extremity and had Doppler ultrasound done which is positive for bilateral lower extremity DVT. Currently she is on Eliquis with improvement in the symptoms. Overall clinically she is doing well without any new symptoms complain. Discussed with the patient and about diagnosis reviewed all the available blood test and ultrasound reports with her. PLAN: Continue current treatment. She will return to clinic for follow-up in 4 weeks The [...] Notes * Kelsi Zhu MED ASSIST - 03/14/2024 2:19 PM EDT Patient identifed by name and [...] it for you? ALREADY ACTIVE Filed Vitals: 03/14/24 1414 BP: 145/89 Pulse: 87 Temp: 36.6 C (97.9 F) TempSrc: Tympanic SpO2: 98% Weight: 74.2 kg (163 lb 8 oz) Patient was instructed to not get up [...] Description 03/15/2024 1:00 PM EDT Imaging Radiology [address] 132 [facility] [place] [address] 03/20/2024 10:10 AM EDT Laboratory Laboratory [facility] [place] [address] [place] [phone] Jessica, Lab [facility] [address] [place] [address] 03/21/2024 1:00 PM EDT Hem/Onc Treatment Hematology/Oncology Treatment, [place] [address] [facility] [place] [phone] Park, Chair 5 Hem Onc [facility] 200 [facility] [place] [address] 03/21/2024 3:40 PM EDT Office Visit Family Practice [address], [place] 293 [place] [address] Kristine Kan DO 293 [facility], [place] [address] 03/28/2024 9:45 AM EDT Imaging Radiology [facility] [address]st [facility], [place] [address] [facility] [place] [address] 04/12/2024 2:15 PM EDT Office Visit Hematology/Oncology [facility] [place] 200 [facility] [place] [phone] Hardik Gross MD 200 [facility] [place] [address] 01/02/2025 10:00 AM EDT Office Visit Nephrology, [facility] 200 [facility] [place] [address] Lizandro Motta MD 200 [facility] [place] [address] Scheduled Orders Name Type Priority Associated Diagnoses Orde r Schedule CBC WITH WBC DIFFERENTIAL Lab Routine Carcinoma of gallbladder (HCC) Expected: 04/11/2024, Expires: 08/22/2024 COMPREHENSIVE METABOLIC PANEL Lab Routine Carcinoma of gallbladder (HCC) Expected: 04/11/2024, Expires: 08/22/2024 CA 19-9 Lab Routine Carcinoma of gallbladder (HCC) Expected: 04/11/2024, Expires: 08/22/2024 Health Maintenance Due Date Last Done Comments COVID-19 Vaccine ( season) 2024 11/08/2023, 07/10/2022, 01/06/2022, Additional history exists Albumin/Creatinine Ratio 09/02/2024 09/02/2023, 08/0 10/2021 GFR 09/05/2024 03/06/2024, 02/02, 02/21/2024, Additional history exists Depression Monitoring 11/09/2024 11/09/2023 CKD PHOS USE SMARTSET 06313 11/25/2024 11/25/2023, 0 12/05/2022 HbA1c 11/25/2024 11/25/2023, 11/04, 05/04/2022, Additional history exists CKD HGB USE SMARTSET 70049 03/06/202503/06, 03/06/2024, 02/29/2024, Additional history exists DXA [...] this encounter Medical Devices Implanted Type Area Sintering Press Operator Device Identifier Shelf Expiration Date Model / Serial / Lot Lens Intraoc 21.5 - [id number] - [id number] Implanted:Qty: 1 on 07/27/2019 by Tristian Araujo MD at OR [facility] Left: Eye BAUSCH & LOMB 04/02/2024 [id number] / [id number] / [id number] Lens Intraoc 21.5 - [id number] - [id number] Implanted:Qty: 1 on 08/08/2019 by Tristian Araujo MD at OR [facility] Right: Eye BAUSCH & LOMB 04/02/2024 [id number] / [id number] / [id number] Stent Axios [id number] - [id number] Implanted:Qty: 1 on 12/07/2022 by Tanya Morris MD at OR [facility] N/A: Abdomen [employer] : ENDOSCOPY [id number] 08/25/2023 [id number] / / [id number] Stent Bili Pigtail 7fr 100mm - [id number] Implanted:Qty: 1 on 12/07/2022 by Tanya Morris MD at OR [facility] N/A: Abdomen [employer] [id number] 08/03/2025 PBD-1033-0 710 / / [id number] Stent Bili Pigtail 7fr 100mm - [id number] Implanted:Qty: 1 on 12/07/2022 by Tanya Morris MD at OR [facility] N/A: Abdomen [employer] [id number] 08/03/2025 PBD-1033-0 710 / / [id number] Power Port 8fr Sngl Lumen Plas - [id number] Implanted:Qty: 1 on 12/29/2022 by Landon Hickman DO at OR [facility] Right: Chest CR BARD : PERIPHERAL VASCULAR [id number] 12/02/2023 [id number] / / [id number] Hanarostent Noncover 10dm 10cm - [id number] Implanted:Qty: 1 on 02/19/2023 by Tanya Morris MD at OR [facility] [employer] [id number] 12/31/2024 SHS-10-100 -180 / / [id number] documented as of this encounter Visit Diagnoses Diagnosis Carcinoma of gallbladder (HCC)- Primary Malignant neoplasm of gallbladder Screening mammogram for breast cancer documented in this encounter Advance Directives * Full Code (Latest Code Status on File) Date Activated Date Inactivated Comments 12/04/2022 10:10 PM 12/08/2022 3:55 PM This order re flects the patients wishes and were consensually agreed upon. Question Answer Comments Discussion of Advance Directives occurred with: Patient Care Teams Casing Soaker Relationship Specialty Start Date End Date Kristine Kan DO [address] [place] [address] PCP - General Family Medicine 12/18/22 documented as of this encounter"
--- OUTSIDE RECORDS SUMMARY | 2024-06-06 23:40 | External Medical Summary ---
Author Name Unknown Address Unknown Organization [facility] [place] [address] Laboratory Report Ordering Provider Test Date Status TASHA MANN 03/20/2024 10:11:14 Final Observation Date Value Abnormality Reference (Units ) Status SYNC LEUKOCYTES IN BLOOD BY AUTOMATED COUNT 03/20/2024 10:11:14 5.88 4.00-10.80 (K/uL) Final Segs 03/20/2024 10:11:14 58.3 40.0-75.0 (%) Final Lymphs % 03/20/2024 10:11:14 31.8 18.0-42.0 (%) Final Monos 03/20/2024 10:11:14 7.5 1.0-11.0 (%) Final Eosinophils 03/20/2024 10:11:14 1.9 0.0-6.0 (%) Final Basos 03/20/2024 10:11:14 0.5 0.0-2.0 (%) Final Absolute Segs 03/20/2024 10:11:14 3.43 1.80-7.70 (K/uL) Final Lymphs, absolute 03/20/2024 10:11:14 1.87 1.00-4.80 (K/ul) Final Monos, Abs 03/20/2024 10:11:14 0.44 0.00-1.10 (K/uL) Final Eos, Abs 03/20/2024 10:11:14 0.11 0.00-0.70 (K/uL) Final Basos, Abs 03/20/2024 10:11:14 0.03 0.00-0.20 (K/uL) Final Performing Location [facility] [place] [address]
--- OUTSIDE RECORDS SUMMARY | 2024-06-06 23:40 | External Medical Summary | Summary of Care ---
Author Name Unknown Organization [facility] Address [address] [place] [address] Phone [phone] Care Team Providers Care Receptionist Airline Lounge Name Role Phone Kristine Kan Primary Care Provider [phone] Reason for Visit * Reason Comments Chemotherapy C4/D1 - FOLFOX * Episode Based Medications (Routine) - Authorized Specialty Diagnoses / Procedures Referred By Marcela t Referred To Contact Diagnoses Carcinoma of gallbladder (HCC) Encounter for antineoplastic chemotherapy Procedures AZ LEUCOVORIN CALCIUM INJECTION [place] PALONOSETRON HCL [place] FLUOROURACIL INJECTION [place] OXALIPLATIN Hardik Gross MD [address] [place] [address] [place] [address] Anc Hem/Onc [address] [address] Referral ID Status Reason Start Date Expiration Date V isits Requested Visits Authorized [id number] Authorized 12/14/2023 12/13/2024 999 [id number] Encounter Details Date Type Department Care Team (Latest Contact Info) Description 02/08/2024 12:00 PM EDT Hem/Onc Treatment Hematology/Oncolog y Treatment, [address] [phone] Jessica, Chair 3 Hem Onc [address] [place] [address] Carcinoma of gallbladder (HCC)*; Encounter for antineoplastic chemotherapy Allergies Active Allergy Reactions Criticality Noted Date Comments Latex Rash 06/28/2018 From a dressing Sulfamethoxazole Edema face/lips/tongue High 023 Trimethoprim Edema face/lips/tongue High 12/03/2022 documented as of this encounter (statuses as of 03/12/2024) Medications Medication Sig Dispensed Refills Start Date [...] mouth daily 300 mL 3 01/14/2024 Active Hospital, Clinic, or Other Facility Administered Medication Ordered Dose Route Frequency Start Date End Date Status vitamin b-12 (Cyanocobalamin) inj 1,000 mcgIndications:Vitamin B 12 deficiency 1000 mcg IM [id number] 09/02/2023 08/03/2024 Active documented as of this encounter (statuses as of 03/12/2024) Active Problems Problem Noted Date Diagnosed Date [...] as of this encounter (statuses as of 03/12/2024) Resolved Problems Problem Noted Date Diagnosed Date [...] as of this encounter (statuses as of 03/12/2024) Immunizations Name Administration Dates Next Due COVID-19 [...] Sign Reading Time Taken Comments Blood Pressure 118/79 02/08/2024 12:35 PM EDT Pulse 87 02/08/2024 12:35 PM EDT Temperature 36.3 C (97.3 F) 02/08/2024 12:35 PM E DT Respiratory Rate 16 02/08/2024 12:35 PM EDT Oxygen Saturation 96% 02/08/2024 12:35 PM EDT Inhaled Oxygen Concentration - - Weight 72.8 kg (160 lb 9.6 oz) 02/08/2024 12:35 PM EDT Height - - Body Mass Index 26.73 01/11/2024 2:35 PM EDT documented in this [...] Nursing Notes * Gabriela Patino RN - 02/08/2024 3:58 PM EDT Goals: Patient will remain free from injury. Possible barriers to meeting goals: ambulating with IV pole Stability of the patient: Moderately stable - low risk of patient condition declining or worsening Summary regarding today's goals: Met: pt remained free of harm today Patient tolerated treatment well without any acute issues or problems. 5FU pump connected and infsuing, programmed correctly and pump started. She will return on at 11am for hydration and pump will complete about 1pm when hydration is also finishing. Patient left facility in stable condition and denied any further needs. * Gabriela Patino RN - 02/08/2024 2:36 PM EDT Chair 5. Port accessed. Labs done yesterday and okay for tx per Dr. Gross. Patient is overall feeling well today, just fatigued. She did c/o some leg weakness which has been going on since starting tx. Dr. Gross is aware. She did say this morning however, her legs actually feel mostly back to normal. Oxaliplatin was further dose reduced again and she will receive the further reduced dose of Oxaliplatin today. She is accompanied by , Jeremias, today. Chemotherapy/Immunotherapy agents: 5FU, LEUCOVORIN, and OXALIPLATIN Consent for chemotherapy drug treatment complete, dated, and signed? yes, date - 12/14/2023 Treatment lab parameters met? Yes Has treatment weight changed > than 10%? No Treatment preauthorized? Yes VITALS Filed Vitals: 02/08/24 1235 BP: 118/79 Pulse: 87 Resp: 16 Temp: 36.3 C (97.3 F) TempSrc: Tympanic SpO2: 96% Weight: 72.8 kg (160 lb 9.6 oz) Urine protein: N/A Patient education completed [...] side effects during treatment. PRE-TREATMENT ASSESSMENT: NEURO: weakness of legs, arms, or face: legs are weak but says today they feel mostly back to normal, saysit seems to come and go for her, this has been ongoing and Dr. Gross is aware, Oxaliplatin was dosereduced further last week and fatigue:ongoing, feels like she is always tired but does still try summer productive at times at home and still attends [employer], etc. Does feel like she sleeps more often now with this treatment. She did not feel as worn out since we started to give IVF with the day of her pump disconnect CV/RESP: denies symptoms GI/: decreased appetite: Does not eat as much but sometimes forces herself to eat, still able to eat most foods but they do not taste as good OTHER: denies any additional symptoms PAIN: 0 Patient is comfortable and denies further needs at this time. Safety and Risk for Injury Patient will remain free from injury. Ensure appropriate safety devices are available. Provide and maintain safe environment. * Muriel Damon RN - 02/07/2024 12:11 PM EDT CBCd, CMP reviewed with Dr Gross (creat 1.8, hgb 8.8). Per Dr Gross, ok to treat tomorrow as planned. documented in this encounter Plan of Treatment Upcoming Encounters Date Type Department Care Team (Late st Contact Info) Description 03/14/2024 2:25 PM EDT Office Visit Hematology/Oncology [facility] [place] [address] [place] [phone] Hardik Gross MD [address] [place] [address] 03/15/2024 1:00 PM EDT Imaging Radiology [address] [facility] [place] [address] 03/20/2024 10:10 AM EDT Laboratory Laboratory [facility] Jessica [place] [address] [place] [phone] Jessica, Lab [facility] [address] [place] [address] 03/21/2024 1:00 PM EDT Hem/Onc Treatment Hematology/Oncology Treatment, [place] [address] [place] [phone] Jessica, Chair 5 Hem Onc [place] [address] [place] [address] 03/21/2024 3:40 PM EDT Office Visit Family Practice [address], [place] [facility] [phone] Kristine Kan DO 293 [facility] [address] 03/28/2024 9:45 AM EDT Imaging Radiology [address] 132 [facility] [place] [address] 01/02/2025 10:00 AM EDT Office Visit Nephrology, [facility] [address] [place] [address] [address] Lizandro Motta MD [address] [place] [address] [address] Health Maintenance Due Date Last Done Comments COVID-19 Vaccine ( season) 2024 11/08/2023, 07/10/2022, 01/06/2022, Additional history exists Albumin/Creatinine Ratio 09/02/2024 09/02/2023, 08/0 10/2021 GFR 09/05/2024 03/06/2024, 02/02, 02/21/2024, Additional history exists CKD PHOS USE SMARTSET 06128 11/25/2024 11/25/2023, 0 12/05/2022 HbA1c 11/25/2024 11/25/2023, 11/04, 05/04/2022, Additional history exists CKD HGB USE SMARTSET 23872 03/06/202503/06, 03/06/2024, 02/29/2024, Additional history exists DXA [...] this encounter Medical Devices Implanted Type Area Scrape Gatherer Device Identifier Shelf Expiration Date Model / Serial / Lot Lens Intraoc 21.5 - [id number] - [id number] Implanted:Qty: 1 on 07/27/2019 by Tristian Araujo MD at OR [facility] Left: Eye [employer]USCH [employer] LOMB 04/02/2024 [id number] / [id number] / [id number] Lens Intraoc 21.5 - [id number] - [id number] Implanted:Qty: 1 on 08/08/2019 by Tristian Araujo MD at OR [facility] Right: Eye BAUSCH [employer] LOMB 04/02/2024 [id number] / [id number] / [id number] Stent Axios [id number] - [id number] Implanted:Qty: 1 on 12/07/2022 by Tanya Morris MD at OR [facility] N/A: Abdomen [employer] : ENDOSCOPY [id number] 08/25/2023 [id number] / / [id number] Stent Bili Pigtail 7fr 100mm - [id number] Implanted:Qty: 1 on 12/07/2022 by Tanya Morris MD at OR [facility] N/A: Abdomen [employer] [id number] 08/03/2025 PBD-1033-0 710 / / [id number] Stent Bili Pigtail 7fr 100mm - [id number] Implanted:Qty: 1 on 12/07/2022 by Tanya Morris MD at OR [facility] N/A: Abdomen [employer] [id number] 08/03/2025 PBD-1033-0 710 / / 2YK Power Port 8fr Sngl Lumen Plas - [id number] Implanted:Qty: 1 on 12/29/2022 by Landon Hickman DO at OR [facility] Right: Chest CR BARD : PERIPHERAL VASCULAR [id number] 12/02/2023 [id number] / / [id number] Hanarostent Noncover 10dm 10cm - [id number] Implanted:Qty: 1 on 02/19/2023 by Tanya Morris MD at OR [facility] [employer] [id number] 12/31/2024 SHS-10-100 -180 / / [id number] documented as of this encounter Visit Diagnoses Diagnosis Carcinoma of gallbladder (HCC)- Primary Malignant neoplasm of gallbladder Encounter for antineoplastic chemotherapy Screening mammogram for breast cancer documented in this encounter Administered Medications Inactive Administered Medications - up to 3 most recent administrations Medication Order MAR Action Action Date Dose Rate Site D5W IV solution Intravenous, at 50 mL/hr, PRN, Starting on Wed02/08/24 at 0830, Until Wed02/08/24 at 2002 Start Infusion 02/08/2024 12:10 PM EDT 50 mL/hr dexAMETHasone (Decadron) tab 12 mg 12 mg, Oral, ONCE, On Wed02/08/24 at 1230, For 1 dose Given 02/08/2024 12:19 PM EDT 12 mg Fluorouracil (5-Fu) 4,475 mg for Home Infusion 4,475 mg (rounded from 4,464 mg = 2,400 mg/m2 1.86 m2 Treatment Plan BSA from Recorded weight), Intravenous, Administer over 46 Hours, Home Infusion Pharmacy to specify base solution and volume., ONCE, 1 dose, On Wed02/08/24 at 1315 Start Infusion 02/08/2024 2:57 PM EDT 4,475 mg 3 mL/hr Fluorouracil (5-Fu) inj 750 mg 750 mg (rounded from 744 mg = 400 mg/m2 1.86 m2 Treatment Plan BSA from Recorded weight), IV Push, ONCE, 1 dose, On Wed02/08/24 at 1300 Given 02/08/2024 2:53 PM EDT 750 mg leucovorin calcium 750 mg in D5W 250 mL INFUSION 750 mg (rounded from 744 mg = 400 mg/m2 1.86 m2 Treatment Plan BSA from Recorded weight), IV Piggyback, ONCE, 1 dose, On Wed02/08/24 at 1230, Administer over 120 Minutes, Before 5-FU Start Infusion 02/08/2024 12:45 PM EDT 750 mg 137.5 mL/hr Oxaliplatin (Eloxatin) 121 mg in D5W 500 mL infusion 121 mg (rounded from 120.9 mg = 65 mg/m2 1.86 m2 Treatment Plan BSA from Recorded weight), IV Piggyback, ONCE, 1 dose, On Wed02/08/24 at 1230, Administer over 120 Minutes, Flush with D5W only! Start Infusion 02/08/2024 12:45 PM EDT 121 mg 287 mL/hr Palonosetron (Aloxi) inj SOLN 0.25 mg 0.25 mg, IV Push, ONCE, On Wed02/08/24 at 1230, For 1 dose, Restricted per [facility] antiemetic guidelines Given 02/08/2024 12:19 PM EDT 0.25 mg sodium chloride 0.9 % flush central line 10 mL 10 mL, IV Push, PRN Other, IV Flush, Starting on Wed02/08/24 at 1159, Until Wed02/08/24 at 2003, For 24 hours, Do not flush if lock, PICC, or central line not in place; IV infusing or unable to flush. Given 02/08/2024 2:52 PM EDT 10 mL documented in this encounter Advance Directives * Full Code (Latest Code Status on File) Date Activated Date Inactivated Comments 12/04/2022 10:10 PM 12/08/2022 3:55 PM This order re flects the patients wishes and were consensually agreed upon. Question Answer Comments Discussion of Advance Directives occurred with: Patient Care Teams Receptionist Airline Lounge Relationship Specialty Start Date End Date Kristine Kan DO 293 [facility] [place] [address] PCP - General Family Medicine 12/18/22 documented as of this encounter
--- OUTSIDE RECORDS SUMMARY | 2024-06-06 23:40 | External Medical Summary ---
Author Name Unknown Address Unknown Organization [facility] [place] [address] Laboratory Report Ordering Provider Test Date Status TASHA MANN 03/20/2024 10:11:14 Final Observation Date Value Abnormality Reference (Units ) Status Magnesium 03/20/2024 10:11:14 1.7 1.5-2.6 (m g/dL) Final Performing Location [facility] [place] [address]
--- OUTSIDE RECORDS SUMMARY | 2024-06-06 23:40 | External Medical Summary | Summary of Care ---
Author Name Unknown Organization [facility] Address [address] [place] [address] Phone [phone] Care Team Providers Care Magnetic Doctor Name Role Phone Kristine Kan Primary Care Provider + [phone] Reason for Visit * Reason Comments Chemotherapy C4/D1 - FOLFOX * Episode Based Medications (Routine) - Authorized Specialty Diagnoses / Procedures Referred By Marcela t Referred To Contact Diagnoses Carcinoma of gallbladder (HCC) Encounter for antineoplastic chemotherapy Procedures [place] LEUCOVORIN CALCIUM INJECTION [place] PALONOSETRON HCL [place] FLUOROURACIL INJECTION [place] OXALIPLATIN Hardik Gross MD [address] [place] [address] [place] [address] Anc Hem/Onc [address] [address] Referral ID Status Reason Start Date Expiration Date V isits Requested Visits Authorized [id number] Authorized 12/14/2023 12/13/[phone] Encounter Details Date Type Department Care Team (Latest Contact Info) Description 02/08/2024 12:00 PM EDT Hem/Onc Treatment Hematology/Oncolog y Treatment, [address] [phone] Jessica, Chair 3 Hem Onc [address] [place] [address] Carcinoma of gallbladder (HCC)*; Encounter for antineoplastic [...] mcgIndications:Vitamin B 12 deficiency 1000 mcg IM [id number] 09/02/2023 08/03/2024 Active documented as of this [...] at times at home and still attends [employer]ian[employer], etc. Does feel like she sleeps more [...] 03/14/2024 2:25 PM EDT Office Visit Hematology/Oncology [facility] [place] [address] [place] [phone] Hardik Gross MD [address] [place] [address] 03/15/2024 1:00 PM EDT Imaging Radiology [address] [facility] [address] 03/20/2024 10:10 AM EDT Laboratory Laboratory [facility] Jessica [place] [address] [place] [place] [phone] Jessica, Lab [facility] [address] [place] [address] 03/21/2024 1:00 PM EDT Hem/Onc Treatment Hematology/Oncology Treatment, [place] [address] [place] [phone] Jessica, Chair 5 Hem Onc [place] [address] [place] [address] 03/21/2024 3:40 PM EDT Office Visit Family Practice [address], [place] [address] [facility] [phone] Krist[facility] [address] [facility] [address] 03/28/2024 9:45 AM EDT Imaging Radiology [address] 132 [facility] [place] [address] 01/02/2025 10:00 AM EDT Office Visit Nephrology, [facility] [address] [place] [address] Lizandro Motta MD [address] [place] [address] Health Maintenance Due Date Last Done Comments COVID-19 Vaccine ( season) 2024 11/08/2023, 07/10/2022, 01/06/2022, Additional history exists Albumin/Creatinine Ratio 09/02/2024 09/02/2023, 08/0 10/2021 GFR 09/05/2024 03/06/2024, 02/02, 02/21/2024, Additional history exists CKD PHOS USE SMARTSET 68301 11/25/2024 11/25/2023, 0 12/05/2022 HbA1c 11/25/2024 11/25/2023, 11/04, 05/04/2022, Additional history exists CKD HGB USE SMARTSET 50262 03/06/202503/06, 03/06/2024, 02/29/2024, Additional history exists DXA [...] this encounter Medical Devices Implanted Type Area Utility Division Project Manager Device Identifier Shelf Expiration Date Model / Serial / Lot Lens Intraoc 21.5 - [id number] - [id number] Implanted:Qty: 1 on 07/27/2019 by Tristian Araujo MD at OR [facility] Left: Eye BAUSCH [employer] LOMB 04/02/2024 [id number] / [id number] / [id number] Lens Intraoc 21.5 - [id number] - [id number] Implanted:Qty: 1 on 08/08/2019 by Tristian Araujo MD at OR [facility] Right: Eye BAUSCH & LOMB 04/02/2024 [id number] / [id number] / [id number] Stent Axios 37rqx31oz - [id number] Implanted:Qty: 1 on 12/07/2022 by Tanya Morris MD at OR [facility] N/A: Abdomen [employer] : ENDOSCOPY [id number] 08/25/2023 [id number] / / [id number] Stent Bili Pigtail 7fr 100mm - [id number] Implanted:Qty: 1 on 12/07/2022 by Tanya Morris MD at OR [facility] N/A: Abdomen [employer] [id number] 08/03/2025 PBD-1033-0 710 / / [id number] Stent Bili Pigtail 7fr 100mm - [id number] Implanted:Qty: 1 on 12/07/2022 by Tanya Morris MD at OR [facility] N/A: Abdomen [employer] [id number] 08/03/2025 PBD-1033-0 710 / / 2YK Power Port 8fr Sngl Lumen Plas - [id number] Implanted:Qty: 1 on 12/29/2022 by Landon Hickman DO at OR [facility] Right: Chest CR BARD : PERIPHERAL VASCULAR [id number] 12/02/2023 [id number] / / [id number] Hanarostent Noncover 10dm 10cm - [id number] Implanted:Qty: 1 on 02/19/2023 by Tanya Morris MD at OR [facility] [employer] [id number] 12/31/2024 SHS-10-100 -180 / / [id number] documented as of this encounter Visit Diagnoses [...] at 1230, For 1 dose, Restricted per [facility] antiemetic guidelines Given 02/08/2024 12:19 PM EDT [...] Advance Directives occurred with: Patient Care Teams Magnetic Doctor Relationship Specialty Start Date End Date Kristine Kan DO [address] [place] [address] PCP - General Family Medicine 12/18/22 documented as of this encounter
--- OUTSIDE RECORDS SUMMARY | 2024-06-06 23:40 | External Medical Summary ---
Author Name Unknown Address Unknown Organization K09:[facility] [place] [address] Laboratory Report Ordering Provider Test Date Status TASHA MANN 03/20/2024 10:11:14 Final Observation Date Value Abnormality Reference (Units ) Status WBC, Total 03/20/2024 10:11:14 5.88 4.00-10.8 0 (K/uL) Final RBC 03/20/2024 10:11:14 3.17 3.85-5.15 (M/uL) Final Hemoglobin 03/20/2024 10:11:14 10.7 Below low normal 12 .0-15.3 (g/dL) Final HCT 03/20/2024 10:11:14 33.5 Below low normal 36. 0-45.2 (%) Final MCV 03/20/2024 10:11:14 105.7 81.5-97.5 (fL) Final MCH 03/20/2024 10:11:14 33.8 27.0-34.0 (pg) Final MCHC 03/20/2024 10:11:14 31.9 32.0-36.0 (g/dL) Final RDW 03/20/2024 10:11:14 18.9 11.5-15.5 (%) Final Platelets 03/20/2024 10:11:14 154 140-400 (K /uL) Final MPV 03/20/2024 10:11:14 9.4 6.6-11.1 ( fL) Final Performing Location [facility] [place] [address]
--- OUTSIDE RECORDS SUMMARY | 2024-06-06 23:40 | External Medical Summary ---
Author Name Unknown Address Unknown Organization K09:[facility] [address] [place] [address] Laboratory Report Ordering Provider Test Date Status TASHA MANN 03/20/2024 10:11:14 Final Observation Date Value Abnormality Reference (Units ) Status BUN 03/20/2024 10:11:14 25 Above high normal 6-20 (mg/dL) Final Creatinine 03/20/2024 10:11:14 1.5 Above high normal 0.5-1.0 (mg/dL) Final Glomerular filtration rate/1.73 sq M.predicted [Volume Rate/Area] in Serum, Plasma or Blood by Creatinine-based formula (CKD-EPI) 03/20/2024 10:11:14 35 Below low normal >=60 (mL/min) Final eGFR is calculated based on the CKD-EPI 2020 equation Sodium 03/20/2024 10:11:14 137 135-146 (m mol/L) Final Potassium 03/20/2024 10:11:14 4.1 3.5-5.1 (m mol/L) Final Cl 03/20/2024 10:11:14 105 98-107 (mm ol/L) Final CO2 03/20/2024 10:11:14 19 Below low normal 22- 32 (mmol/L) Final Anion gap 03/20/2024 10:11:14 13 7-15 (mmol /L) Final Glucose 03/20/2024 10:11:14 129 Above high normal 70 -120 (mg/dL) Final Albumin 03/20/2024 10:11:14 3.7 Below low normal 3.8 -5.0 (g/dL) Final AST (Aspartate aminotransferase) 03/20/2024 10:11:14 15 10-35 (U/L) Fin al Alk Phos 03/20/2024 10:11:14 68 35-130 (U/ L) Final Bilirubin, Total 03/20/2024 10:11:14 0.4 <=1 .2 (mg/dL) Final Calcium 03/20/2024 10:11:14 9.3 8.4-10.2 ( mg/dL) Final Protein 03/20/2024 10:11:14 6.4 6.0-8.3 (g /dL) Final ALT (Alanine aminotransferase) 03/20/2024 10:11:14 8 Below low normal 10-35 (U/L) Final Performing Location [facility] [place] [address]
--- OUTSIDE RECORDS SUMMARY | 2024-06-06 23:40 | External Medical Summary | Summary of Care ---
Author Name Unknown Organization [facility] Address [address] [place] [address] Phone [phone] Care Team Providers Care Drum Attendant Name Role Phone Kristine Kan Primary Care Provider [phone] Reason for Referral * Precert (Within 24 hrs (call dept; emergent)) - Pending Review Specialty Diagnoses / Procedures Referred By Contsammy t Referred To Contact Radiology Diagnoses Carcinoma of gallbladder (HCC) Procedures CT CHEST/ABDOMEN/PELVIS WITHOUT IV CONTRAST WITH ORAL CONTRAST Samantha Cohen CRNP [address] [place] [address] Referral ID Status Reason Start Date Expiration Date V isits Requested Visits Authorized [id number] Pending Review 03/28/2024 999 999 * Evaluate & Treat - Unlimited Visits (Within 10 days (routine)) - Authorized Specialty Diagnoses / Procedures Referred By Marcela johansen Referred To Contact Nephrology Diagnoses Chronic kidney disease, stage 3b (HCC) Drug-induced toxicity of kidney Samantha Cohen CRNP [address] [place] [address] Referral ID Status Reason Start Date Expiration Date Visits Requested Visits Authorized [id number] Authorized Specialty Services Required 03/07/2024 999 999 Question Answer Referral Priority Within 10 days (routine) Where should this appointment be scheduled? [facility] What condition is this patient being seen for? Chronic kidney disease Comments Cisplatin nephrotoxicity. Discontinued in July 2023 with no improvement in kidney function. Reason for Visit * Reason Comments Chemotherapy Chemo/recheck Encounter Details Date Type Department Care Team (Late st Contact Info) Description 03/07/2024 8:00 AM EDT Office Visit Hematology/Oncology [place] Diallo [address] [facility] [place] [phone] Samantha Cohen CRNP [address] [place] [address] Carcinoma of gallbladder (HCC)*; Chronic kidney disease, stage 3b (HCC); Drug-induced toxicity of kidney; Chemotherapy-induced neuropathy (HCC); Edema of lower extremity; Hypomagnesemia Allergies Active Allergy Reactions Criticality Noted Date [...] mcgIndications:Vitamin B 12 deficiency 1000 mcg IM [id number] 09/02/2023 08/03/2024 Active Fluorouracil (5-Fu) 4,475 mg in NSS 138 mL infusion 4475 mg IV CONTINUOUS 03/06/2024 03/08/2024 Ended documented as of this encounter (statuses [...] Sign Reading Time Taken Comments Blood Pressure 124/82 03/07/2024 7:53 AM EDT Pulse 80 03/07/2024 7:53 AM EDT Temperature 35.8 C (96.5 F) 03/07/2024 7:53 AM ED T Respiratory Rate - - Oxygen Saturation 96% 03/07/2024 7:53 AM EDT Inhaled Oxygen Concentration - - Weight 75.3 kg (166 lb 1.6 oz) 03/07/2024 7:53 A M EDT Height - - Body Mass Index 27.64 01/11/2024 2:35 PM EDT documented in this [...] as of this encounter Progress Notes * Samantha Cohen CRNP - 03/07/2024 8:00 AM EDT Hematology/Oncology Outpatient [place] [address] [place] [address] Name: Anjelica Wiley Date: 03/07/2024 CHIEF COMPLAINT: Anjelica Wiley is a 74 year old female patient of Dr. Hardik Gross here today for f/u visit today. From Patient chart confirmed with patient. HEMATOLOGY/ONCOLOGY DIAGNOSIS: Adenocarcinoma of gallbladder - locally advanced History of Left breast cancer, stage IA p T1 c p N0 ER strongly+ AL weakly + Her 2 ирина negative Cancer Staging Invasive ductal carcinoma of breast, female (HCC) Staging form: Breast, AJCC 7th Edition - Clinical stage from 06/02/2017: Stage IA (T1c, N0, M0) - Signed by Rigoberto Gonzalez MD on 06/02/2017 DATE OF DIAGNOSIS: 12/07/22 TREATMENT HISTORY: Left partial mastectomy and radiation therapy Tamoxifen between 08/2017 to 08/2022 Gemcitabine and cisplatin 12/31/22 - 07/16/23. Durvalumab was added on 04/14/2023. Cisplatin and gemcitabine was discontinued after receiving day 1 of cycle 4 because of the rising creatinine. Subsequently she was treated with single agent durvalumab, she received total of 5 cycles of durvalumab single agent. Discontinued d/t disease progression. CURRENT TREATMENT: [id number] every 14 days (12/20/23 - ) 12/20/23: Decrease oxaliplatin dose to 75 mg per m2 01/31/24: Reduce the oxaliplatin dose to 65 mg per m2 03/02/24: 1 unit of PRBC ONCOLOGY HISTORY: Patient presented with complaint of generalized weakness, loss of appetite and had metallic test. She was also found to have elevated liver enzymes. She had ultrasound of the liver done on 12/03/2022which revealed diffuse intrahepatic and extrahepatic biliary dilatation and heterogeneous masslike lesion in the gallbladder. Because of these findings and elevated liver enzymes she had upper endoscopy and endoscopic ultrasound done on 12/07/2022 which revealed extrinsic severe stenosis in the duodenal bulb due to large gallbladder [...] cpN0 disease with ER strongly positive and AL weakly positive and HER2 Ирина negative. Oncotype DX recurrence score was 12. She completed radiation therapy and 5 years of tamoxifen. She completed 5 years in August 2022. Interval History: CT A/P 03/03/23: IMPRESSION 1. Redemonstration of findings concerning for gallbladder carcinoma, similar in appearance to previous study. Infiltrative tissue in the periportal region appears to be direct spread of the tumor. The mass abuts the hepatic flexure of colon, distal stomach and proximal duodenum concerning for infiltration. 2. Enlarged periportal lymph node suspected concerning for a metastatic node. 3. Omental thickening and nodularity adjacent to the gallbladder mass concerning for peritoneal spread of the tumor. Patient was seen by Dr. Hannon at [facility] for 2nd opinion and he recommended durvalumab with gemcitabine and cisplatin combination. If she fails this combination then will be eligible for clinical trial or consider capecitabine plus oxaliplatin or FOLFOX. She received 4 cycles gemcitabine plus cisplatin [...] was more than 10,000. Dr. Laura from [facility] recommended FOLFOX or CAPOX protocol for further treatment. HISTORY OF PRESENT ILLNESS: Anjelica Wiley is a 74 year old female with a history as outlined above. Currently here for f/u visit today and consideration for C5D1 of treatment. Patient feeling improved today from last week. Continues to have significant lower extremity edema that has been present over the last three weeks. Denies any pain in lower extremities. Had been receiving a few hydration appointments prior to this happening. Feeling a little stronger and stamina has improved. Able to be more active but does still have to take frequent rest periods. No further dizziness. Holding allopurinol. Bowels are moving normally. Denies nausea. Using an OTC cream for neuropathy in her feet which does seem to be helping. In the last two weeks neuropathy worsened to the point she felt unsteady on her feet. had to help her ambulate. Appetite has improved with Megace. Is eating small meals throughout the day. Continues on mag 400 mg. Past Medical History: Diagnosis Date Breast cancer (HCC) 03/2017 left breast Depressive disorder, not elsewhere classified Hypertension Hypertention, malignant, with acute intensive management INFORMATION UTERINE PROLAPSE INFORMATION CYSTOCELE RSV infection Past Surgical History: Procedure Laterality Date DILATION AND CURETTAGE (D&C) D&C EGD, FLEXIBLE,W/ENDOSCOPIC US N/A 12/04/2022 [facility], EGD / EUS /severe stenosis was found in the duodenal bulb /mass found in gallbladder in duodenal wall / biopsies adenocarcinoma of the gallbladder EGD, W/ENDOSCOPIC US N/A 12/07/2022 severe duodenal bulb stenosis, large gallbladder mass precluding/ESOPHAGOGASTRODUODENOSCOPY (EGD), FLEXIBLE, TRANSORAL, ENDOSCOPIC ULTRASOUND performed by Tanya Morris MD at OR [facility] ERCP W/ STENT EXCHANGE N/A 02/19/2023 done through [facility] axios stent, severe stenosis in duodenal bulb/single malignant biliary stricture/plastic biliary stent exchanged for uncovered metal biliary stent/ENDOSCOPIC RETROGRADE CHOLANGIOPANCREATOGRAPHY (ERCP) W/STENT REMOVAL AND EXCHANGE; INC DILATION, GUIDE WIRE AND SPHINCTEROTOMY performed by Tanya Morris MD at OR [facility] ERCP, DIAGNOSTIC, SPECIMEN COLLECTION N/A 12/07/2022 ENDOSCOPIC RETROGRADE CHOLANGIOPANCREATOGRAPHY (ERCP) DIAGNOSTIC performed by Dee Pineda OR [facility] INFORMATION 12/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 INSER TUNN ACC DEV;5 YRS/OLDER Right 12/29/2022 INSERT TUNNELED CENTRAL VENOUS ACCESS WITH SUBQ PORT performed by Landon Hickman DO at OR [facility] LAPAROSCOPY DIAGNOSTIC 1988 for infertility MASTECTOMY, PARTIAL Left 05/13/2017 malignant RADIATION THERAPY Left 08/04/2017 RADIATION THERAPY DOSE PLAN Left 08/04/2017 RELIEVE INNER EYE PRESSURE Left 07/27/2019 left GONIOTOMY performed by Tristian Araujo MD at OR [facility] RELIEVE INNER EYE PRESSURE Right 08/08/2019 right GONIOTOMY performed by Tristian Araujo MD at OR [facility] REMOVE CATARACT, INSERT LENS PROSTH Left 07/27/2019 left EXTRACAPSULAR CATARACT REMOVAL WITH INTRAOCULAR LENS performed by Tristian Araujo MD at OR [facility] REMOVE CATARACT, INSERT LENS PROSTH Right 08/08/2019 right EXTRACAPSULAR CATARACT REMOVAL WITH INTRAOCULAR LENS performed by Tristian Araujo MD at OR [facility] SENTINEL LYMPH NODE BIOPSY PERFORMED Left 05/13/2017 benign US GUIDED BREAST BIOPSY LEFT Left 04/02/2017 invasive ductal carcinoma as well as focal ductal carcinoma in situ US NEEDLE BIOPSY Left 04/02/2017 Malignant VAGINAL DELIVERY ONLY Social History Socioeconomic History Marital status: Spouse [...] Social Determinants of Health Financial Resource Strain: Not on file Food Insecurity: No Food Insecurity (11/09/2023) Hunger Vital Sign Worried About Running Out of Food in the Last Year: Never true Ran Out of Food in the Last Year: Never true Transportation Needs: Not on file Physical Activity: Not on file Stress: Not on file Social Connections: Not on file Intimate Partner Violence: Not on file Housing Stability: Not on file Review of patient's allergies indicates: Allergen Reactions Sulfamethoxazole Edema face/lips/tongue Trimethoprim Edema face/lips/tongue Latex Rash From a dressing Current Outpatient Medications Medication Sig Dispense Refill [...] ml by mouth daily 300 mL 3 Current Facility-Administered Medications Medication Dose Route Frequency Provider Last Rate Last Admin vitamin b-12 (Cyanocobalamin) inj 1,000 mcg 1,000 mcg Intramuscular Q4 Weeks Kristine Kan DO 1,000 mcg at 09/02/23 1509 Fluorouracil (5-Fu) 4,475 mg in NSS 138 mL infusion 4,475 mg Intravenous Continuous Facility-Administered Medications Ordered in Other Visits Medication Dose Route Frequency Provider Last Rate Last Admin Fluorouracil (5-Fu) 4,475 mg for Home Infusion 2,400 mg/m2 (Treatment Plan Recorded) Intravenous Once Hardik Gross MD REVIEW OF SYSTEMS: See HPI - otherwise negative OBJECTIVE: Filed Vitals: 03/07/24 0753 BP: 124/82 Pulse: 80 Temp: 35.8 C (96.5 F) TempSrc: Tympanic SpO2: 96% Weight: 75.3 kg (166 lb 1.6 oz) Wt Readings from Last 5 Encounters: 03/07/24 75.3 kg (166 lb 1.6 oz) 03/01/24 72.1 kg (159 lb) 02/22/24 72.3 kg (159 lb 6.4 oz) 02/08/24 72.8 kg (160 lb 9.6 oz) 01/25/24 74.2 kg (163 lb 9.6 oz) PHYSICAL EXAM: ECOG: Performance Status 1-2 General Appearance: No acute distress, chronically ill HEENT: Normal - No oral or pharyngeal masses, ulceration or thrush noted Lymph Nodes: Normal - No palpable lymph nodes in the neck or supraclavicular areas Lungs/Thorax: Normal - Clear to auscultation Heart: Normal - Regular rate and rhythm, normal S1, S2, no appreciable murmurs Pulses/Extremities: +2-3 pedal edema, +1 BLE edema, LLE slightly erythematous and warm to touch Abdomen: Normal - Soft, nontender, bowel sounds present, no appreciable hepatosplenomegaly, no palpable masses Neurologic: Normal - Grossly intact LABS: Results for orders placed or performed in visit on 03/06/24 COMPREHENSIVE METABOLIC PANEL Result Value Ref Range BUN 27 (H) 6 - 20 mg/dL Creatinine 1.6 (H) 0.5 - 1.0 mg/dL Estimated Glomerular Filtration Rate 34 (L) >=60 mL/min Sodium 137 135 - 146 mmol/L Potassium 4.2 3.5 - 5.1 mmol/L Chloride 104 98 - 107 mmol/L CO2 21 (L) 22 - 32 mmol/L Anion Gap 12 7 - 15 mmol/L Glucose 131 (H) 70 - 120 mg/dL Albumin 3.6 (L) 3.8 - 5.0 g/dL AST 14 10 - 35 U/L Alkaline Phosphatase 62 35 - 130 U/L Bilirubin, Total 0.3 <=1.2 mg/dL Calcium 9.4 8.4 - 10.2 mg/dL Protein 6.2 6.0 - 8.3 g/dL ALT 9 (L) 10 - 35 U/L MAGNESIUM Result Value Ref Range Magnesium 1.9 1.5 - 2.6 mg/dL CBC Result Value Ref Range WBC 7.67 4.00 - 10.80 K/uL RBC 3.13 3.85 - 5.15 M/uL HGB 10.4 (L) 12.0 - 15.3 g/dL HCT 33.0 (L) 36.0 - 45.2 % MCV 105.4 81.5 - 97.5 fL MCH 33.2 27.0 - 34.0 pg MCHC 31.5 32.0 - 36.0 g/dL RDW 20.3 11.5 - 15.5 % PLT 160 140 - 400 K/uL MPV 10.1 6.6 - 11.1 fL DIFFERENTIAL, AUTOMATED Result Value Ref Range WBC 7.67 4.00 - 10.80 K/uL DIFFERENTIAL, TECHNOLOGIST REVIEW Result Value Ref Range WBC 7.67 4.00 - 10.80 K/uL Neutrophils % 59.0 40.0 - 75.0 % Lymphocytes % 32.0 18.0 - 42.0 % Monocytes % 8.0 1.0 - 11.0 % Metamyelocytes % 1.0 (H) <=0.0 % Absolute Neutrophils 4.53 1.80 - 7.70 K/uL Absolute Lymphocytes 2.45 1.00 - 4.80 K/uL Absolute Monocytes 0.61 0.00 - 1.10 K/uL Absolute Metamyelocytes 0.08 (H) <=0.00 K/uL nRBCs *Note: Due to a large number of results and/or encounters for the requested time period, some results have not been displayed. A complete set of results can be found in Results Review. IMPRESSION/PLAN: Adenocarcinoma of gallbladder - locally advanced Hypomagnesemia CKD stage III CIPN Edema BLE She received 4 cycles gemcitabine plus cisplatin and then chemotherapy was discontinued because of the toxicity including increase in the creatinine. Switched to single agent durvalumab. 02/2023 CT scan there seems to be disease progression. CA 19-9 level was more than 10,000. Dr. Laura from [facility] recommended FOLFOX or CAPOX protocol for further treatment. Cbc/diff, cmp and mag reviewed: Hgb stable at 10.4 s/p PRBC transfusion 03/02/24 Creatinine stable at 1.6 Mag WNL Patient with worsening anemia now requiring PRBC transfusion support. Patient also with ongoing grade 3 CIPN despite oxaliplatin dose reduction. Reviewed case with Dr. Gross: Will move forward with C5D1 of treatment today but will omit Oxaliplatin from treatment plan today and for all future treatment cycles. Order placed. If anemia does not improve with omitting oxaliplatin will consider for omitting 5-FU bolus or additional of GERDA to treatment plan moving forward. Nephrology referral placed. Order placed for venous doppler of BLE to r/o VTE. Will also omit IV hydration from treatment plan d/t ongoing BLE edema. Continue to push oral fluids Continue OTC magnesium supplement one tablet daily Restaging CT C/A/P ordered to be completed in three weeks. RTC in 4 weeks with physician for chemo return/scan review KRISTA Esquivel documented in this encounter Nursing Notes * Kelsi Zhu MED ASSIST - 03/07/2024 7:53 AM EDT Patient identifed by name and [...] it for you? ALREADY ACTIVE Filed Vitals: 03/07/24 0753 BP: 124/82 Pulse: 80 Temp: 35.8 C (96.5 F) TempSrc: Tympanic SpO2: 96% Weight: 75.3 kg (166 lb 1.6 oz) Patient was instructed to not get [...] 03/14/2024 2:25 PM EDT Office Visit Hematology/Oncology [facility] Jessica [place] [address] [place] [phone] Hardik Gross MD [address] [place] [address] 03/15/2024 1:00 PM EDT Imaging Radiology [address] [facility] [address] 03/20/2024 10:10 AM EDT Laboratory [facility] [place] [address] [place] [phone] Jessica, Lab [facility] [address] [place] [address] 03/21/2024 1:00 PM EDT Hem/Onc Treatment Hematology/Oncology Treatment, [place] [address] [place] [phone] Jessica, Chair [address] [place] [address] [place] [address] 03/21/2024 3:40 PM EDT Office Visit Family Practice [address], [place] [address] [facility] [phone] Krist[facility] [address] [facility] [address] 03/28/2024 9:45 AM EDT Imaging Radiology [address] [facility] [place] [address] 01/02/2025 10:00 AM EDT Office Visit Nephrology, [facility] [address] [place] [address] Lizandro Motta MD [address] [place] [address] Scheduled Orders Name Type Priority Associated Diagnoses Orde r Schedule URINALYSIS, REFLEX TO MICROSCOPIC Lab Routine Chronic kidney disease, stage 3b (HCC) Drug-induced toxicity of kidney Expected: 03/07/2024, Expires: 03/07/2025 ALBUMIN / CREATININE RATIO, URINE Lab Routine Chronic kidney disease, stage 3b (HCC) Drug-induced toxicity of kidney Expected: 03/07/2024, Expires: 03/07/2025 CA 19-9 Lab Routine Carcinoma of gallbladder (HCC) Ordered: 03/07/2024 CT CHEST/ABDOMEN/PELVIS WITHOUT IV CONTRAST WITH ORAL CONTRAST Medical Imaging STAT Carcinoma of gallbladder (HCC) Expected: 03/28/2024 (Approximate), Expires: 04/06/2025 Scheduled Referrals Name Type Priority Associated Diagnoses Orde r Schedule NEPHROLOGY REFERRAL OP Referral Within 10 days (routine) Chronic kidney disease, stage 3b (HCC) Drug-induced toxicity of kidney Ordered: 03/07/2024 Health Maintenance Due Date Last Done Comments COVID-19 Vaccine ( season) 2024 11/08/2023, 07/10/2022, 01/06/2022, Additional history exists Albumin/Creatinine Ratio 09/02/2024 09/02/2023, 080 10/2021 GFR 09/05/2024 03/06/2024, 02/02, 02/21/2024, Additional history exists CKD PHOS USE SMARTSET 08947 11/25/2024 11/25/2023, 0 12/05/2022 HbA1c 11/25/2024 11/25/2023, 11/04, 05/04/2022, Additional history exists CKD HGB USE SMARTSET 77763 03/06/202503/06, 03/06/2024, 02/29/2024, Additional history exists DXA [...] this encounter Medical Devices Implanted Type Area Bench Carpenter Device Identifier Shelf Expiration Date Model / Serial / Lot Lens Intraoc 21.5 - [id number] - [id number] Implanted:Qty: 1 on 07/27/2019 by Tristian Araujo MD at OR [facility] Left: Eye [employer]USCH [employer] LOMB 04/02/2024 [id number] / [id number] / [id number] Lens Intraoc 21.5 - [id number] - [id number] Implanted:Qty: 1 on 08/08/2019 by Tristian Araujo MD at OR [facility] Right: Eye BAUSCH [employer] LOMB 04/02/2024 [id number] / [id number] / [id number] Stent Axios [id number] - [id number] Implanted:Qty: 1 on 12/07/2022 by Tanya Morris MD at OR [facility] N/A: Abdomen [employer] : ENDOSCOPY [id number] 08/25/2023 [id number] / / [id number] Stent Bili Pigtail 7fr 100mm - [id number] Implanted:Qty: 1 on 12/07/2022 by Tanya Morris MD at OR [facility] N/A: Abdomen [employer] [id number] 08/03/2025 PBD-1033-0 710 / / [id number] Stent Bili Pigtail 7fr 100mm - [id number] Implanted:Qty: 1 on 12/07/2022 by Tanya Morris MD at OR [facility] N/A: Abdomen [employer] [id number] 08/03/2025 PBD-1033-0 710 / / 2YK Power Port 8fr Sngl Lumen Plas - [id number] Implanted:Qty: 1 on 12/29/2022 by Landon Hickman DO at OR [facility] Right: Chest CR BARD : PERIPHERAL VASCULAR [id number] 12/02/2023 [id number] / / [id number] Hanarostent Noncover 10dm 10cm - [id number] Implanted:Qty: 1 on 02/19/2023 by Tanya Morris MD at OR [facility] [employer] [id number] 12/31/2024 [facility]10-100 -180 / / [id number] documented as of this encounter Results * [facility] DUPLEX VENOUS LE BILAT (03/08/2024 8:20 AM EDT) Anatomical Region Laterality Modality Lower Extremity, Vascular Ultras ound Narrative 03/08/2024 8:44 AM EDT VASCULAR LAB RESULTS DATE OF EXAMINATION: 03/08/24 INDICATION: Edema, Unspecified This is an interpretation of an exam performed at [facility]. PHYSICIAN REPORT: LOWER EXTREMITY VENOUS DUPLEX EXAMINATION Immediately before proceeding with the vascular lab procedure reported below, the identity of the patient, the correct exam and the correct procedural site were identified. Color flow Doppler, spectral analysis, and transducer compression techniques were applied during this ultrasound image examination. RIGHT LOWER EXTREMITY On duplex examination the right common femoral vein, the sapheno-femoral junction and the femoral vein in the thigh are all free of internal echoes and demonstrate normal transducer compressibility during link scale imaging and normal respiratory and augmentation response during Doppler interrogation. The posterior tibial veins and peroneal veins demonstrate no evidence of thrombosis. Right popliteal vein has continuous flow, is partly compressible and echogenic. LEFT LOWER EXTREMITY On duplex examination the left common femoral vein, the sapheno-femoral junction and the femoral vein in the thigh are all free of internal echoes and demonstrate normal transducer compressibility during link scale imaging and normal respiratory and augmentation response during Doppler interrogation. The posterior tibial veins and peroneal veins demonstrate no evidence of thrombosis. Left popliteal vein has continuous flow, is non-compressible and echogenic. CONCLUSIONS: Acute deep venous thrombosis in the bilateral lower extremity in the segments as noted above. Preliminary report was given to hematology nurse, Muriel Damon, on 03/08/2024 at 8:15 am . Samantha Natarajanbárbara [facility] documented in this encounter Visit Diagnoses Diagnosis Carcinoma of gallbladder (HCC)- Primary Malignant neoplasm of gallbladder Chronic kidney disease, stage 3b (HCC) Drug-induced toxicity of kidney Acute kidney failure with lesion of tubular necrosis Chemotherapy-induced neuropathy (HCC) Polyneuropathy due to drugs Edema of lower extremity Edema Hypomagnesemia Disorders of magnesium metabolism Edema of lower extremity Edema Screening mammogram for breast cancer documented in this encounter Advance Directives * Full Code (Latest Code Status on File) Date Activated Date Inactivated Comments 12/04/2022 10:10 PM 12/08/2022 3:55 PM This order re flects the patients wishes and were consensually agreed upon. Question Answer Comments Discussion of Advance Directives occurred with: Patient Care Teams Drum Attendant Relationship Specialty Start Date End Date Kristine Kan DO [address] [place] [address] PCP - General Family Medicine 12/18/22 documented as of this encounter
--- OUTSIDE RECORDS SUMMARY | 2024-06-06 23:40 | External Medical Summary | Summary of Care ---
Author Name Unknown Organization [facility] Address [address] [place] [address] Phone [phone] Care Team Providers Care Ticket Speculator Name Role Phone Kristine Kan Primary Care Provider + [phone] Reason for Visit * Reason Comments Chemotherapy C4/D1 - FOLFOX * Episode Based Medications (Routine) - Authorized Specialty Diagnoses / Procedures Referred By Marcela t Referred To Contact Diagnoses Carcinoma of gallbladder (HCC) Encounter for antineoplastic chemotherapy Procedures MT LEUCOVORIN CALCIUM INJECTION MT PALONOSETRON HCL MT FLUOROURACIL INJECTION MT OXALIPLATIN Hardik Gross MD [address] [place] [address] [place] [address] Anc Hem/Onc [address] [address] Referral ID Status Reason Start Date Expiration Date V isits Requested Visits Authorized [id number] Authorized 12/14/2023 12/13/2024 999 999 Encounter Details Date Type Department Care Team (Latest Contact Info) Description 02/08/2024 12:00 PM EDT Hem/Onc Treatment Hematology/Oncolog y Treatment, [address] [phone] Jessica, Chair 3 Hem Onc [address] [place] [address] Carcinoma of gallbladder (HCC)*; Encounter for antineoplastic [...] mcgIndications:Vitamin B 12 deficiency 1000 mcg IM [id number] 09/02/2023 08/03/2024 Active documented as of this [...] at times at home and still attends restorationism, etc. Does feel like she sleeps more [...] 03/14/2024 2:25 PM EDT Office Visit Hematology/Oncology [facility] [place] [address] [place] [phone] Hardik Gross MD [address] [place] [address] 03/15/2024 1:00 PM EDT Imaging Radiology [address] 132 [facility] [address] 03/20/2024 10:10 AM EDT Laboratory Laboratory [facility] Jessica [place] [address] [phone] Jessica, Lab [facility] [address] [place] [address] 03/21/2024 1:00 PM EDT Hem/Onc Treatment Hematology/Oncology Treatment, [place] [address] [place] [phone] Jessica, Chair 5 Hem Onc [place] [address] [place] [address] 03/21/2024 3:40 PM EDT Office Visit Family Practice [address], [place] 293 [facility] [address] Kristine Kan DO 293 [facility] [address] 03/28/2024 9:45 AM EDT Imaging Radiology [address] 132 [facility] [place] [address] 01/02/2025 10:00 AM EDT Office Visit Nephrology, [facility] [address] [place] [address] Lizandro Motta MD [address] [place] [address] Health Maintenance Due Date Last Done Comments COVID-19 Vaccine ( season) 2024 11/08/2023, 07/10/2022, 01/06/2022, Additional history exists Albumin/Creatinine Ratio 09/02/2024 09/02/2023, 08/0 10/2021 GFR 09/05/2024 03/06/2024, 02/02, 02/21/2024, Additional history exists CKD PHOS USE SMARTSET 68184 11/25/2024 11/25/2023, 0 12/05/2022 HbA1c 11/25/2024 11/25/2023, 11/04, 05/04/2022, Additional history exists CKD HGB USE SMARTSET 82114 03/06/202503/06, 03/06/2024, 02/29/2024, Additional history exists DXA [...] this encounter Medical Devices Implanted Type Area Hollow Ware Maker Device Identifier Shelf Expiration Date Model / Serial / Lot Lens Intraoc 21.5 - [id number] - [id number] Implanted:Qty: 1 on 07/27/2019 by Tristian Araujo MD at OR [facility] Left: Eye BAUSCH & LOMB 04/02/2024 [id number] / [id number] / [id number] Lens Intraoc 21.5 - [id number] - [id number] Implanted:Qty: 1 on 08/08/2019 by Tristian Araujo MD at OR [facility] Right: Eye BAUSCH & LOMB 04/02/2024 [id number] / [id number] / [id number] Stent Axios [id number] - [id number] Implanted:Qty: 1 on 12/07/2022 by Tanya Morris MD at OR [facility] N/A: Abdomen [employer] : ENDOSCOPY [id number] 08/25/2023 [id number] / / [id number] Stent Bili Pigtail 7fr 100mm - [id number] Implanted:Qty: 1 on 12/07/2022 by Tanya Morris MD at OR [facility] N/A: Abdomen [employer] [id number] 08/03/2025 PBD-1033-0 710 / / [id number] Stent Bili Pigtail 7fr 100mm - [id number] Implanted:Qty: 1 on 12/07/2022 by Tanya Morris MD at OR [facility] N/A: Abdomen [employer] [id number] 08/03/2025 PBD-1033-0 710 / / 2YK Power Port 8fr Sngl Lumen Plas - [id number] Implanted:Qty: 1 on 12/29/2022 by Landon Hickman DO at OR [facility] Right: Chest CR BARD : PERIPHERAL VASCULAR [id number] 12/02/2023 [id number] / / [id number] Hanarostent Noncover 10dm 10cm - [id number] Implanted:Qty: 1 on 02/19/2023 by Tanya Morris MD at OR [facility] [employer] [id number] 12/31/2024 SHS-10-100 -180 / / [id number] documented as of this encounter Visit Diagnoses [...] at 1230, For 1 dose, Restricted per [facility] antiemetic guidelines Given 02/08/2024 12:19 PM EDT [...] Advance Directives occurred with: Patient Care Teams Ticket Speculator Relationship Specialty Start Date End Date Kristine Kan DO 293 [place] [address] PCP - General Family Medicine 12/18/22 documented as of this encounter
--- OUTSIDE RECORDS SUMMARY | 2024-06-06 23:41 | External Medical Summary | Summary of Care ---
Author Name Unknown Organization [facility] Address [address] [place] [address] Phone [phone] Care Team Providers Care Strategic Procurement Manager Name Role Phone ChrisblancaKristine schultz Primary Care Provider + [phone] Reason for Visit * Reason Comments Procedure Pump disconnect * Episode Based Medications (Routine) - Authorized Specialty Diagnoses / Procedures Referred By Marcela johansen Referred To Contact Diagnoses Carcinoma of gallbladder (HCC) Encounter for antineoplastic chemotherapy Procedures MO LEUCOVORIN CALCIUM INJECTION MO PALONOSETRON HCL MO FLUOROURACIL INJECTION MO OXALIPLATIN Hardik Gross MD 200 [place] [address] Anc Hem/Onc [address] [address] Referral ID Status Reason Start Date Expiration Date V isits Requested Visits Authorized [id number] Authorized 12/14/2023 12/13/2024 999 999 Encounter Details Date Type Department Care Team (Latest Contact Info) Description 03/09/2024 12:15 PM EDT Immunization/ Injection Hematology/Oncology Treatment, [address] [phone] Nurse, Med 200 [place] [address] Carcinoma of gallbladder (HCC)*; Encounter for antineoplastic chemotherapy Allergies Active Allergy Reactions Criticality Noted Date Comments Latex Rash 06/28/2018 From a dressing Sulfamethoxazole Edema face/lips/tongue High 023 Trimethoprim Edema face/lips/tongue High 12/03/2022 documented as of this encounter (statuses as of 03/09/2024) Medications Medication Sig Dispensed Refills Start Date [...] mcgIndications:Vitamin B 12 deficiency 1000 mcg IM [id number] 09/02/2023 08/03/2024 Active documented as of this encounter (statuses as of 03/09/2024) Active Problems Problem Noted Date Diagnosed Date [...] as of this encounter (statuses as of 03/09/2024) Resolved Problems Problem Noted Date Diagnosed Date [...] as of this encounter (statuses as of 03/09/2024) Immunizations Name Administration Dates Next Due COVID-19 [...] Nursing Notes * Karey Argueta, RN - 03/09/2024 12:46 PM EDT Chair [...] 03/14/2024 2:25 PM EDT Office Visit Hematology/Oncology [facility] [address] [place] [phone] Hardik Gross MD [address] [place] [address] 03/15/2024 1:00 PM EDT Imaging Radiology [address], [place] 132 [facility] [place] [address] 03/20/2024 10:10 AM EDT Laboratory Laboratory [facility] [place] [address] [phone] Jessica, Lab [address] [place] [address] [address] 03/21/2024 1:00 PM EDT Hem/Onc Treatment Hematology/Oncology Treatment, [place] [address] [place] [phone] Jessica, Chair 5 Hem Onc [address] [place] [address] 03/21/2024 3:40 PM EDT Office Visit Family Practice [address], [place] [address] [place] [phone] Kristine Kan DO [address] [place], [place] [address] 03/28/2024 9:45 AM EDT Imaging Radiology [facility] 1st [facility], [place] 132 [facility] [place] [address] 01/02/2025 10:00 AM EDT Office Visit Nephrology, [facility] [address] [facility] [address] Lizandro Motta MD [address] [facility] [address] Health Maintenance Due Date Last Done Comments COVID-19 Vaccine ( season) 2024 11/08/2023, 07/10/2022, 01/06/2022, Additional history exists Albumin/Creatinine Ratio 09/02/2024 09/02/2023, 10/2021 GFR 09/05/2024 03/06/2024, 02/02, 02/21/2024, Additional history exists CKD PHOS USE SMARTSET 29880 11/25/2024 11/25/2023, 0 12/05/2022 HbA1c 11/25/2024 11/25/2023, 11/04, 05/04/2022, Additional history exists CKD HGB USE SMARTSET 35526 03/06/202503/06, 03/06/2024, 02/29/2024, Additional history exists DXA [...] this encounter Medical Devices Implanted Type Area Resourcing Consultant Device Identifier Shelf Expiration Date Model / Serial / Lot Lens Intraoc 21.5 - [id number] - [id number] Implanted:Qty: 1 on 07/27/2019 by Tristian Araujo MD at OR [facility] Left: Eye BAUSCH & LOMB 04/02/2024 [id number] / [id number] / [id number] Lens Intraoc 21.5 - [id number] - [id number] Implanted:Qty: 1 on 08/08/2019 by Tristian Araujo MD at OR [facility] Right: Eye BAUSCH & LOMB 04/02/2024 [id number] / [id number] / [id number] Stent Axios [id number] - [id number] Implanted:Qty: 1 on 12/07/2022 by Tanya Morris MD at OR [facility] N/A: Abdomen [employer] : ENDOSCOPY [id number] 08/25/2023 [id number] / / [id number] Stent Bili Pigtail 7fr 100mm - [id number] Implanted:Qty: 1 on 12/07/2022 by Tanya Morris MD at OR [facility] N/A: Abdomen [employer] [id number] 08/03/2025 PBD-1033-0 710 / / 2YK Stent Bili Pigtail 7fr 100mm - [id number] Implanted:Qty: 1 on 12/07/2022 by Tanya Morris MD at OR [facility] N/A: Abdomen [employer] [id number] 08/03/2025 PBD-1033-0 710 / / 2YK Power Port 8fr Sngl Lumen Plas - [id number] Implanted:Qty: 1 on 12/29/2022 by Landon Hickman DO at OR [facility] Right: Chest CR BARD : PERIPHERAL VASCULAR [id number] 12/02/2023 [id number] / / [id number] Hanarostent Noncover 10dm 10cm - [id number] Implanted:Qty: 1 on 02/19/2023 by Tanya Morris MD at OR [facility] [employer] [id number] 12/31/2024 SHS-10-100 -180 / / [id number] documented as of this encounter Visit Diagnoses Diagnosis Carcinoma of gallbladder (HCC)- Primary Malignant neoplasm of gallbladder Encounter for antineoplastic chemotherapy Screening mammogram for breast cancer documented in this encounter Administered Medications Active Administered Medications - up to 3 most recent administrations Medication Order MAR Action Action Date Dose Rate Site hEParin 100 UNIT/ML Lock Flush inj 500 Units 500 Units (5 mL), IV Lock, PRN Other, IV Flush, Starting on Karla 03/09/24 at 1216, Until 03/10/24 at 1215, For 24 hours, Do not flush if lock, PICC, or central line not in place; IV infusing or unable to flush. Given 03/09/2024 12:29 PM EDT 500 Units sodium chloride 0.9 % flush central line 10 mL 10 mL, IV Push, PRN Other, IV Flush, Starting on Karla 03/09/24 at 1216, Until Wed03/10/24 at 1215, For 24 hours, Do not flush if [...] Advance Directives occurred with: Patient Care Teams Strategic Procurement Manager Relationship Specialty Start Date End Date Kristine Kan DO [address] [place] [address] PCP - General Family Medicine 12/18/22 documented as of this encounter
--- OUTSIDE RECORDS SUMMARY | 2024-06-06 23:41 | External Medical Summary | Summary of Care ---
Author Name Unknown Organization [facility] Address [address] [place] [address] Phone [phone] Care Team Providers Care Personal Vehicle Advisor Name Role Phone Kristine Kan Primary Care Provider + [phone] Reason for Visit * Reason Comments Chemotherapy C4/D1 - FOLFOX * Episode Based Medications (Routine) - Authorized Specialty Diagnoses / Procedures Referred By Marcela t Referred To Contact Diagnoses Carcinoma of gallbladder (HCC) Encounter for antineoplastic chemotherapy Procedures MA LEUCOVORIN CALCIUM INJECTION MA PALONOSETRON HCL MA FLUOROURACIL INJECTION MA OXALIPLATIN Hardik Gross MD [address] [place] [address] [place] [address] Anc Hem/Onc [address] [address] Referral ID Status Reason Start Date Expiration Date V isits Requested Visits Authorized [id number] Authorized 12/14/2023 12/13/2024 999 999 Encounter Details Date Type Department Care Team (Latest Contact Info) Description 02/08/2024 12:00 PM EDT Hem/Onc Treatment Hematology/Oncolog y Treatment, [address] [phone] Jessica, Chair 3 Hem On[address] [place] [address] Carcinoma of gallbladder (HCC)*; Encounter for antineoplastic [...] mcgIndications:Vitamin B 12 deficiency 1000 mcg IM [id number] 09/02/2023 08/03/2024 Active documented as of this [...] at times at home and still attends jehovah's witness, etc. Does feel like she sleeps more [...] 03/14/2024 2:25 PM EDT Office Visit Hematology/Oncology [facility] [place] [address] [place] [phone] Hardik Gross MD [address] [place] [address] 03/15/2024 1:00 PM EDT Imaging Radiology [address] 132 [facility] [address] 03/20/2024 10:10 AM EDT Laboratory Laboratory [facility] Jessica [place] [address] [place] [phone] Jessica, Lab [facility] [address] [place] [address] 03/21/2024 1:00 PM EDT Hem/Onc Treatment Hematology/Oncology Treatment, [place] [address] [place] [phone] Jsesica, Chair 5 Hem Onc [place] [address] [place] [address] 03/21/2024 3:40 PM EDT Office Visit Family Practice [address], [place] 293 [facility] [phone] Kristine Kan DO 293 [facility] [address] 03/28/2024 9:45 AM EDT Imaging Radiology [address] 132 [facility] [place] [address] 01/02/2025 10:00 AM EDT Office Visit Nephrology, [facility] [address] [place] [address] Lizandro Motta MD [address] [place] [address] Health Maintenance Due Date Last Done Comments COVID-19 Vaccine ( season) 2024 11/08/2023, 07/10/2022, 01/06/2022, Additional history exists Albumin/Creatinine Ratio 09/02/2024 09/02/2023, 08/0 10/2021 GFR 09/05/2024 03/06/2024, 02/02, 02/21/2024, Additional history exists CKD PHOS USE SMARTSET 59149 11/25/2024 11/25/2023, 0 12/05/2022 HbA1c 11/25/2024 11/25/2023, 11/04, 05/04/2022, Additional history exists CKD HGB USE SMARTSET 75474 03/06/202503/06, 03/06/2024, 02/29/2024, Additional history exists DXA [...] this encounter Medical Devices Implanted Type Area Felt Hat Mellowing Machine Operator Device Identifier Shelf Expiration Date Model / Serial / Lot Lens Intraoc 21.5 - [id number] - [id number] Implanted:Qty: 1 on 07/27/2019 by Tristian Araujo MD at OR [facility] Left: Eye BAUSCH & LOMB 04/02/2024 [id number] / [id number] / [id number] Lens Intraoc 21.5 - [id number] - [id number] Implanted:Qty: 1 on 08/08/2019 by Tristian Araujo MD at OR [facility] Right: Eye BAUSCH & LOMB 04/02/2024 [id number] / [id number] / [id number] Stent Axios 16axm41ox - [id number] Implanted:Qty: 1 on 12/07/2022 by Tanya Morris MD at OR [facility] N/A: Abdomen [employer] : ENDOSCOPY [id number] 08/25/2023 [id number] / / [id number] Stent Bili Pigtail 7fr 100mm - [id number] Implanted:Qty: 1 on 12/07/2022 by Tanya Morris MD at OR [facility] N/A: Abdomen [employer] [id number] 08/03/2025 PBD-1033-0 710 / / 2YK Stent Bili Pigtail 7fr 100mm - [id number] Implanted:Qty: 1 on 12/07/2022 by Tanya Morris MD at OR [facility] N/A: Abdomen [employer] [id number] 08/03/2025 PBD-1033-0 710 / / 2YK Power Port 8fr Sngl Lumen Plas - [id number] Implanted:Qty: 1 on 12/29/2022 by Landon Hickman DO at OR [facility] Right: Chest CR BARD : PERIPHERAL VASCULAR [id number] 12/02/2023 [id number] / / [id number] Hanarostent Noncover 10dm 10cm - [id number] Implanted:Qty: 1 on 02/19/2023 by Tanya Morris MD at OR [facility] [employer] [id number] 12/31/2024 SHS-10-100 -180 / / [id number] documented as of this encounter Visit Diagnoses [...] at 1230, For 1 dose, Restricted per [facility] antiemetic guidelines Given 02/08/2024 12:19 PM EDT [...] Advance Directives occurred with: Patient Care Teams Personal Vehicle Advisor Relationship Specialty Start Date End Date Kristine Kan DO 293 [place] [address] PCP - General Family Medicine 12/18/22 documented as of this encounter
--- OUTSIDE RECORDS SUMMARY | 2024-06-06 23:41 | External Medical Summary | Summary of Care ---
Author Name Unknown Organization [facility] Address [address] [place] [address] Phone [phone] Care Team Providers Care Collar Setter Name Role Phone Kristine Kan Primary Care Provider Reason for Visit * Reason Comments IV Therapy Hydration with potas sium and magnesium. Medication Administration Vitamin B12. Encounter Details Date Type Department Care Team (Latest Contact Info) Description 02/22/2024 2:30 PM EDT Hem/Onc Treatment Hematology/Oncology Treatment, [address] [phone] Jessica, Chair 5 Hem On[address] [address] Carcinoma of gallbladder (HCC)*; Dehydration; B12 deficiency Allergies Active Allergy Reactions Criticality [...] mcgIndications:Vitamin B 12 deficiency 1000 mcg IM [id number] 09/02/2023 08/03/2024 Active documented as of this [...] Nursing Notes * Kamila Guadalupe RN - 02/22/2024 4:27 PM EDT Goals: Patient will remain free from injury. Possible barriers to meeting goals: Fall risk d/t ambulation with IV pole. Stability of the patient: Moderately stable - low risk of patient condition declining or worsening Summary regarding today's goals: Met: Patient remained free of injury. Patient tolerated infusion well. Discharged in stable condition. * Kamila Guadalupe RN - 02/22/2024 2:31 PM EDT Chair 9. Patient arrived for hydration with potassium and magnesium added in, and vitamin b12. Patient was seen by Dr. Gross today (see office notes). VAD accessed. Safety and Risk for Injury Patient will remain free from injury. Ensure appropriate safety devices are available. Provide and maintain safe environment. documented in this encounter Plan of Treatment Upcoming Encounters Date Type Department Care Team (Late st Contact Info) Description 03/14/2024 2:25 PM EDT Office Visit Hematology/Oncology [facility] [place] [address] [place] [phone] Hardik Gross MD [address] [place] [address] 03/15/2024 1:00 PM EDT Imaging Radiology [address] 132 [facility] [place] [address] 03/20/2024 10:10 AM EDT Laboratory Laboratory [facility] [place] [address] [place] [address] [phone] Jessica, Lab [facility] [address] [place] [address] 03/21/2024 1:00 PM EDT Hem/Onc Treatment Hematology/Oncology Treatment, [place] [address] [place] [phone] Jessica, Chair 5 Hem Onc [place] [address] [place] [address] 03/21/2024 3:40 PM EDT Office Visit Family Practice [address], [place] 293 [facility] [phone] Kristine Kan DO 293 [facility] [address] 03/28/2024 9:45 AM EDT Imaging Radiology [address] 132 [facility] [place] [address] 01/02/2025 10:00 AM EDT Office Visit Nephrology, [facility] [address] [place] [address] Lizandro Motta MD [address] [place] [address] Health Maintenance Due Date Last Done Comments COVID-19 Vaccine (2022- season) 2024 11/08/2023, 07/10/2022, 01/06/2022, Additional history exists Albumin/Creatinine Ratio 09/02/2024 09/02/2023, 10/2021 GFR 09/05/2024 03/06/2024, 02/02, 02/21/2024, Additional history exists CKD PHOS USE SMARTSET 88809 11/25/2024 11/25/2023, 0 12/05/2022 HbA1c 11/25/2024 11/25/2023, 11/04, 05/04/2022, Additional history exists CKD HGB USE SMARTSET 61068 03/06/202503/06, 03/06/2024, 02/29/2024, Additional history exists DXA [...] this encounter Medical Devices Implanted Type Area Warehouse Packaging Supervisor Device Identifier Shelf Expiration Date Model / Serial / Lot Lens Intraoc 21.5 - [id number] - [id number] Implanted:Qty: 1 on 07/27/2019 by Tristian Araujo MD at OR [facility] Left: Eye BAUSCH & LOMB 04/02/2024 [id number] / [id number] / [id number] Lens Intraoc 21.5 - [id number] - [id number] Implanted:Qty: 1 on 08/08/2019 by Tristian Araujo MD at OR [facility] Right: Eye BAUSCH & LOMB 04/02/2024 [id number] / [id number] / [id number] Stent Axios [id number] - [id number] Implanted:Qty: 1 on 12/07/2022 by Tanya Morris MD at OR [facility] N/A: Abdomen [employer] : ENDOSCOPY [id number] 08/25/2023 [id number] / / [id number] Stent Bili Pigtail 7fr 100mm - [id number] Implanted:Qty: 1 on 12/07/2022 by Tanya Morris MD at OR [facility] N/A: Abdomen [employer] [id number] 08/03/2025 PBD-1033-0 710 / / 2YK Stent Bili Pigtail 7fr 100mm - [id number] Implanted:Qty: 1 on 12/07/2022 by Tanya Morris MD at OR [facility] N/A: Abdomen [employer] [id number] 08/03/2025 PBD-1033-0 710 / / 2YK Power Port 8fr Sngl Lumen Plas - [id number] Implanted:Qty: 1 on 12/29/2022 by Landon Hickman DO at OR [facility] Right: Chest CR BARD : PERIPHERAL VASCULAR [id number] 12/02/2023 [id number] / / [id number] Hanarostent Noncover 10dm 10cm - [id number] Implanted:Qty: 1 on 02/19/2023 by Tanya Morris MD at OR [facility] [employer] [id number] 12/31/2024 SHS-10-100 -180 / / [id number] documented as of this encounter Visit Diagnoses Diagnosis Carcinoma of gallbladder (HCC)- Primary Malignant neoplasm of gallbladder Dehydration B12 deficiency Other B-complex deficiencies Screening mammogram for breast cancer documented in this encounter Administered Medications Inactive Administered Medications - up to 3 most recent administrations Medication Order MAR Action Action Date Dose Rate Site hEParin 100 UNIT/ML Lock Flush inj 500 Units 500 Units (5 mL), IV Lock, PRN Other, IV Flush, Starting on Wed02/22/24 at 1429, Until Wed02/22/24 at 2028, For 24 hours, Do not flush if lock, PICC, or central line not in place; IV infusing or unable to flush. Given 02/22/2024 4:22 PM EDT 500 Units NSS 1,000 mL with potassium chloride 20 mEq, magnesium sulfate 1 g INFUSION Peripheral IV, at 532.5 mL/hr Administer over 2 Hours, ONCE, 1 dose, On Wed02/22/24 at 1500 Start Infusion 02/22/2024 2:27 PM EDT 532.5 mL/hr sodium chloride 0.9 % flush central line 10 mL 10 mL, IV Push, PRN Other, IV Flush, Starting on Wed02/22/24 at 1429, Until Wed02/22/24 at 2028, For 24 hours, Do not flush if lock, PICC, or central line not in place; IV infusing or unable to flush. Given 02/22/2024 4:22 PM EDT 10 mL vitamin b-12 (Cyanocobalamin) inj 1,000 mcg 1,000 mcg, Intramuscular, ONCE, On Wed02/22/24 at 1515, For 1 dose Given 02/22/2024 2:47 PM EDT 1,000 mcg Deltoid Right Upper documented in this encounter Advance Directives * Full Code (Latest Code Status on File) Date Activated Date Inactivated Comments 12/04/2022 10:10 PM 12/08/2022 3:55 PM This order re flects the patients wishes and were consensually agreed upon. Question Answer Comments Discussion of Advance Directives occurred with: Patient Care Teams Collar Setter Relationship Specialty Start Date End Date Kristine Kan DO [address] [place] [address] PCP - General Family Medicine 12/18/22 documented as of this encounter
--- OUTSIDE RECORDS SUMMARY | 2024-06-06 23:41 | External Medical Summary | Summary of Care ---
Author Name Unknown Organization [facility] Address [address] [place] [address] Phone [phone] Care Team Providers Care Principal Technical Architect Name Role Phone Kristine Kan Primary Care Provider [phone] Reason for Visit * Reason Onset Date Comments Advice 03/08/2024 Dr. Gross Encounter Details Date Type Department Care Team (Late st Contact Info) Description 03/08/2024 Refill Hematology/Oncology [facility] [address] [place] [address] Services, Scheduling [address] [place] [address] Acute 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 of both lower extremities (HCC)* Allergies Active Allergy Reactions Criticality Noted Date Comments Latex Rash 06/28/2018 From a dressing Sulfamethoxazole Edema face/lips/tongue High 023 Trimethoprim Edema face/lips/tongue High 12/03/2022 documented as of this encounter (statuses as of 03/08/2024) Medications Medication Sig Dispensed Refills Start Date [...] mcgIndications:Vitamin B 12 deficiency 1000 mcg IM [id number] 09/02/2023 08/03/2024 Active Fluorouracil (5-Fu) 4,475 mg in NSS 138 mL infusion 4475 mg IV CONTINUOUS 03/06/2024 03/08/2024 Active documented as of this encounter (statuses as of 03/08/2024) Active Problems Problem Noted Date Diagnosed Date [...] as of this encounter (statuses as of 03/08/2024) Resolved Problems Problem Noted Date Diagnosed Date [...] as of this encounter (statuses as of 03/08/2024) Immunizations Name Administration Dates Next Due COVID-19 [...] Addendum Note - Carla Damon RN - 03/08/2024 8:48 AM EDTAddended by: CARLA DAMON on: 03/08/2024 08:48 AM Modules accepted: Orders * Telephone Encounter - Carla Damon RN - 03/08/2024 8:34 AM EDT Spoke to Dr Gross- patient to start eliquis. Called and spoke to patient/ . Reviewed results and eliquis rx. [facility] * Telephone Encounter - Carla Damon RN - 03/08/2024 8:14 AM EDT Spoke to Emy- US showed bilateral popliteal DVTs. R is nonocclusive, L is bordering on occluding. She is having an echo at 9:15 so will be there for a little while still. TT sent to Dr Gross. * Telephone Encounter - May Borden OSA - 03/08/2024 8:08 AM EDT Za with the Vascular Lab called with a preliminary report. She advised the patient is positive forDVT in both legs. She asked for a call back at [phone] with instruction as soon as possible so they can advise the patient. Thank you. documented in this encounter Plan of Treatment Upcoming Encounters Date Type Department Care Team (Latest Contact Info) Description 03/08/2024 9:15 AM EDT Cardiac Studies [facility], [facility] [address] Carcinoma of gallbladder (HCC) 03/09/2024 12:15 PM EDT Immunization/Inject ion Hematology/Oncolog y Treatment, [place] [address] [place] [phone] Nurse, Med 4 200 [facility] [place] [address] 03/14/2024 2:25 PM EDT Office Visit Hematology/Oncolog y [facility] 200 [facility] [place] [address] Hardik Gross MD 200 [place] [address] 03/15/2024 1:00 PM EDT Imaging Radiology [facility] 1st [facility] 132 [place] [address] 03/20/2024 10:10 AM EDT Laboratory Laboratory [facility] [address] [place] [phone] Jessica, Lab [facility] 200 [facility] [address] [place] [address] 03/21/2024 1:00 PM EDT Hem/Onc Treatment Hematology/Oncolog y Treatment, [place] [address] [facility] [address] [place] [phone] Jessica, Chair 5 Hem Onc [facility] [address] [place] [address] 03/21/2024 3:40 PM EDT Office Visit Family Practice [address], [place] 293 [place] [address] Kristine Kan DO 293 [facility], [place] [address] 03/28/2024 9:45 AM EDT Imaging Radiology [facility] 1st [facility], [place] [address] [place] [address] 01/02/2025 10:00 AM EDT Office Visit Nephrology, [facility] [address] [place] [address] Lizandro Motta MD 200 [facility] [place] [address] Health Maintenance Due Date Last Done Comments COVID-19 Vaccine ( season) 2024 11/08/2023, 07/10/2022, 01/06/2022, Additional history exists Albumin/Creatinine Ratio 09/02/2024 09/02/2023, 08/0 10/2021 GFR 09/05/2024 03/06/2024, 0505/2024, 02/21/2024, Additional history exists CKD PHOS USE SMARTSET 98496 11/25/2024 11/25/2023, 0 12/05/2022 HbA1c 11/25/2024 11/25/2023, 11/04, 05/04/2022, Additional history exists CKD HGB USE SMARTSET 30728 03/06/202503/06, 03/06/2024, 02/29/2024, Additional history exists DXA [...] this encounter Medical Devices Implanted Type Area Pediatric Np Device Identifier Shelf Expiration Date Model / Serial / Lot Lens Intraoc 21.5 - [id number] - [id number] Implanted:Qty: 1 on 07/27/2019 by Tristian Araujo MD at OR [facility] Left: Eye BAUSCH & LOMB 04/02/2024 [id number] / [id number] / [id number] Lens Intraoc 21.5 - [id number] - [id number] Implanted:Qty: 1 on 08/08/2019 by Tristian Araujo MD at OR [facility] Right: Eye BAUSCH & LOMB 04/02/2024 [id number] / [id number] / [id number] Stent Axios [id number] - [id number] Implanted:Qty: 1 on 12/07/2022 by Tanya Morris MD at OR [facility] N/A: Abdomen [employer] : ENDOSCOPY [id number] 08/25/2023 [id number] / / [id number] Stent Bili Pigtail 7fr 100mm - [id number] Implanted:Qty: 1 on 12/07/2022 by Tanya Morris MD at OR [facility] N/A: Abdomen [employer] [id number] 08/03/2025 PBD-1033-0 710 / / [id number] Stent Bili Pigtail 7fr 100mm - [id number] Implanted:Qty: 1 on 12/07/2022 by Tanya Morris MD at OR [facility] N/A: Abdomen [employer] [id number] 08/03/2025 PBD-1033-0 710 / / 2YK Power Port 8fr Sngl Lumen Plas - [id number] Implanted:Qty: 1 on 12/29/2022 by Landon Hickman DO at OR [facility] Right: Chest CR BARD : PERIPHERAL VASCULAR [id number] 12/02/2023 [id number] / / [id number] Hanarostent Noncover 10dm 10cm - [id number] Implanted:Qty: 1 on 02/19/2023 by Tanya Morris MD at OR [facility] [employer] [id number] 12/31/2024 SHS-10-100 -180 / / [id number] documented as of this encounter Visit Diagnoses Diagnosis Carcinoma of gallbladder (HCC) Malignant neoplasm of gallbladder Acute 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 of both lower extremities (HCC)- Primary Screening mammogram for breast cancer documented in this encounter Advance Directives * Full Code (Latest Code Status on File) Date Activated Date Inactivated Comments 12/04/2022 10:10 PM 12/08/2022 3:55 PM This order re flects the patients wishes and were consensually agreed upon. Question Answer Comments Discussion of Advance Directives occurred with: Patient Care Teams Principal Technical Architect Relationship Specialty Start Date End Date Kristine Kan DO [address] [place] [address] PCP - General Family Medicine 3/17/23 documented as of this encounter
--- OUTSIDE RECORDS SUMMARY | 2024-06-06 23:41 | External Medical Summary | Summary of Care ---
Author Name Unknown Organization [facility] Address [address] [place] [address] Phone [phone] Care Team Providers Care Seal Delivery Vehicle Team Technician Name Role Phone Kristine Kan Primary Care Provider [phone] Reason for Visit * Reason Comments IV Therapy Hydration with potas sium and magnesium. Medication Administration Vitamin B12. Encounter Details Date Type Department Care Team (Latest Contact Info) Description 02/22/2024 2:30 PM EDT Hem/Onc Treatment Hematology/Oncology Treatment, [address] [phone] Jessica, Chair [address] [address] Carcinoma of gallbladder (HCC)*; Dehydration; B12 deficiency [...] mcgIndications:Vitamin B 12 deficiency 1000 mcg IM [id number] 09/02/2023 08/03/2024 Active documented as of this [...] 03/14/2024 2:25 PM EDT Office Visit [facility]ematology/On[facility] [place] [address] [place] [phone] Hardik Gross MD [address] [place] [address] 03/15/2024 1:00 PM EDT Imaging Radiology [address] 132 [facility] [place] [address] 03/20/2024 10:10 AM EDT Laboratory Laboratory [facility] [place] [address] [place] [address] [phone] Jessica, Lab [facility] [address] [place] [address] 03/21/2024 1:00 PM EDT Hem/Onc Treatment Hematology/Oncology Treatment, [place] [address] [place] [phone] Jessica, Chair 5 Hem Onc [place] [address] [place] [address] 03/21/2024 3:40 PM EDT Office Visit Family Practice [address], [place] [address] [facility] [address] Kristine Kan [facility] [address] [facility] [address] 03/28/2024 9:45 AM EDT Imaging Radiology [address] 132 [facility] [place] [address] 01/02/2025 10:00 AM EDT Office Visit Nephrology, [facility] [address] [address] Lizandro Motta MD [address] [place] [address] Health Maintenance Due Date Last Done Comments COVID-19 Vaccine (2022- season) 2024 11/08/2023, 07/10/2022, 01/06/2022, Additional history exists Albumin/Creatinine Ratio 09/02/2024 09/02/2023, 10/2021 GFR 09/05/2024 03/06/2024, 02/02, 02/21/2024, Additional history exists CKD PHOS USE SMARTSET 69915 11/25/2024 11/25/2023, 0 12/05/2022 HbA1c 11/25/2024 11/25/2023, 11/04, 05/04/2022, Additional history exists CKD HGB USE SMARTSET 80566 03/06/202503/06, 03/06/2024, 02/29/2024, Additional history exists DXA [...] this encounter Medical Devices Implanted Type Area Sewing Machine Operator Semiautomatic Device Identifier Shelf Expiration Date Model / Serial / Lot Lens Intraoc 21.5 - [id number] - [id number] Implanted:Qty: 1 on 07/27/2019 by Tristian Araujo MD at OR [facility] Left: Eye BAUSCH & LOMB 04/02/2024 [id number] / [id number] / [id number] Lens Intraoc 21.5 - [id number] - [id number] Implanted:Qty: 1 on 08/08/2019 by Tristian Araujo MD at OR [facility] Right: Eye BAUSCH & LOMB 04/02/2024 [id number] / [id number] / [id number] Stent Axios [id number] - [id number] Implanted:Qty: 1 on 12/07/2022 by Tanya Morris MD at OR [facility] N/A: Abdomen [employer] : ENDOSCOPY [id number] 08/25/2023 [id number] / / [id number] Stent Bili Pigtail 7fr 100mm - [id number] Implanted:Qty: 1 on 12/07/2022 by Tanya Morris MD at OR [facility] N/A: Abdomen [employer] [id number] 08/03/2025 PBD-1033-0 710 / / 2YK Stent Bili Pigtail 7fr 100mm - [id number] Implanted:Qty: 1 on 12/07/2022 by Tanya Morris MD at OR [facility] N/A: Abdomen [employer] [id number] 08/03/2025 PBD-1033-0 710 / / 2YK Power Port 8fr Sngl Lumen Plas - [id number] Implanted:Qty: 1 on 12/29/2022 by Landon Hickman DO at OR [facility] Right: Chest CR BARD : PERIPHERAL VASCULAR [id number] 12/02/2023 [id number] / / [id number] Hanarostent Noncover 10dm 10cm - [id number] Implanted:Qty: 1 on 02/19/2023 by Tanya Morris MD at OR [facility] [email or web address] [id number] 12/31/2024 SHS-10-100 -180 / / [id number] documented as of this encounter Visit Diagnoses [...] Advance Directives occurred with: Patient Care Teams Seal Delivery Vehicle Team Technician Relationship Specialty Start Date End Date Kristine Kan DO [address] [place] [address] PCP - General Family Medicine 12/18/22 documented as of this encounter
--- OUTSIDE RECORDS SUMMARY | 2024-06-06 23:41 | External Medical Summary | Summary of Care ---
Author Name Unknown Organization [facility] Address [address] [place] [address] Phone [phone] Care Team Providers Care Pipe Covering Molder Name Role Phone Kristine Kan Primary Care Provider + [phone] Reason for Visit * Reason Comments Chemotherapy C4/D1 - FOLFOX * Episode Based Medications (Routine) - Authorized Specialty Diagnoses / Procedures Referred By Marcela t Referred To Contact Diagnoses Carcinoma of gallbladder (HCC) Encounter for antineoplastic chemotherapy Procedures MN LEUCOVORIN CALCIUM INJECTION [place] PALONOSETRON HCL [place] FLUOROURACIL INJECTION [place] OXALIPLATIN Hardik Gross MD [address] [place] [address] [place] [address] Anc Hem/Onc [address] [address] Referral ID Status Reason Start Date Expiration Date V isits Requested Visits Authorized [id number] Authorized 12/14/2023 12/13/2024 999 [id number] Encounter Details Date Type Department Care Team (Latest Contact Info) Description 02/08/2024 12:00 PM EDT Hem/Onc Treatment Hematology/Oncolog y Treatment, [address] [phone] Jessica, Chair 3 Hem Onc [address] [place] [address] Carcinoma of gallbladder (HCC)*; Encounter for antineoplastic [...] mcgIndications:Vitamin B 12 deficiency 1000 mcg IM [id number] 09/02/2023 08/03/2024 Active documented as of this [...] at times at home and still attends confucianist, etc. Does feel like she sleeps more [...] 2:25 PM EDT Office Visit Hematology/Oncology [facility] [place] [address] [place] [phone] Hardik Gross MD [address] [place] [address] 03/15/2024 1:00 PM EDT Imaging Radiology [address] 132 [facility] [place] [address] 03/20/2024 10:10 AM EDT Laboratory Laboratory [facility] Jessica [place] [address] [place] [phone] Jessica, Lab [facility] [address] [place] [address] 03/21/2024 1:00 PM EDT Hem/Onc Treatment Hematology/Oncology Treatment, [place] [address] [place] [phone] Jessica, Chair 5 Hem Onc [place] [address] [place] [address] 03/21/2024 3:40 PM EDT Office Visit Family Practice [address], [place] 293 [facility] [address] Kristine Kan DO [address] [facility] [address] 03/28/2024 9:45 AM EDT Imaging Radiology [address] 132 [facility] [place] [address] 01/02/2025 10:00 AM EDT Office Visit Nephrology, [facility] [address] [place] [address] [address] Lizandro Motta MD [address] [place] [address] [address] Health Maintenance Due Date Last Done Comments COVID-19 Vaccine ( season) 2024 11/08/2023, 07/10/2022, 01/06/2022, Additional history exists Albumin/Creatinine Ratio 09/02/2024 09/02/2023, 08/0 10/2021 GFR 09/05/2024 03/06/2024, 02/02, 02/21/2024, Additional history exists CKD PHOS USE SMARTSET 59904 11/25/2024 11/25/2023, 0 12/05/2022 HbA1c 11/25/2024 11/25/2023, 11/04, 05/04/2022, Additional history exists CKD HGB USE SMARTSET 64210 03/06/202503/06, 03/06/2024, 02/29/2024, Additional history exists DXA [...] this encounter Medical Devices Implanted Type Area Marketing Assistant Manager Device Identifier Shelf Expiration Date Model / Serial / Lot Lens Intraoc 21.5 - [id number] - [id number] Implanted:Qty: 1 on 07/27/2019 by Tristian Araujo MD at OR [facility] Left: Eye BAUSCH & LOMB 04/02/2024 [id number] / [id number] / [id number] Lens Intraoc 21.5 - [id number] - [id number] Implanted:Qty: 1 on 08/08/2019 by Tristian Araujo MD at OR [facility] Right: Eye BAUSCH & LOMB 04/02/2024 [id number] / [id number] / [id number] Stent Axios [id number] - [id number] Implanted:Qty: 1 on 12/07/2022 by Tanya Morris MD at OR [facility] N/A: Abdomen [employer] : ENDOSCOPY [id number] 08/25/2023 [id number] / / [id number] Stent Bili Pigtail 7fr 100mm - [id number] Implanted:Qty: 1 on 12/07/2022 by Tanya Morris MD at OR [facility] N/A: Abdomen [employer] [id number] 08/03/2025 PBD-1033-0 710 / / 2YK Stent Bili Pigtail 7fr 100mm - [id number] Implanted:Qty: 1 on 12/07/2022 by Tanya Morris MD at OR [facility] N/A: Abdomen [employer] [id number] 08/03/2025 PBD-1033-0 710 / / 2YK Power Port 8fr Sngl Lumen Plas - [id number] Implanted:Qty: 1 on 12/29/2022 by Landon Hickman DO at OR [facility] Right: Chest CR BARD : PERIPHERAL VASCULAR [id number] 12/02/2023 [id number] / / [id number] Hanarostent Noncover 10dm 10cm - [id number] Implanted:Qty: 1 on 02/19/2023 by Tanya Morris MD at OR [facility] [employer] [id number] 12/31/2024 SHS-10-100 -180 / / [id number] documented as of this encounter Visit Diagnoses [...] at 1230, For 1 dose, Restricted per [facility] antiemetic guidelines Given 02/08/2024 12:19 PM [...] Advance Directives occurred with: Patient Care Teams Pipe Covering Molder Relationship Specialty Start Date End Date Kristine Kan DO [address] [facility] [place] [address] PCP - General Family Medicine 12/18/22 documented as of this encounter
--- OUTSIDE RECORDS SUMMARY | 2024-06-06 23:41 | External Medical Summary | Summary of Care ---
Author Name Unknown Organization [facility] Address [address] [place] [address] Phone [phone] Care Team Providers Care Drupal Php Developer Name Role Phone Kristine Kan Primary Care Provider [phone] Reason for Visit * Reason Onset Date Comments Advice 03/08/2024 Dr. Gross Encounter Details Date Type Department Care Team (Late st Contact Info) Description 03/08/2024 Telephone Hematology/Oncology [facility] [address] [place] [address] Services, Scheduling [address] [place] [address] Advice (Dr. Gross) Allergies Active Allergy Reactions Criticality [...] mcgIndications:Vitamin B 12 deficiency 1000 mcg IM [id number] 09/02/2023 08/03/2024 Active Fluorouracil (5-Fu) 4,475 mg [...] Telephone Encounter - Muriel Damon RN - 03/08/2024 8:14 AM EDT [...] She asked for a call back at [phone] with instruction as soon as possible so they can advise the patient. Thank you. documented in this encounter Plan of Treatment Upcoming Encounters Date Type Department Care Team (Latest Contact Info) Description 03/08/2024 9:15 AM EDT Cardiac Studies Cardiac Studies, [facility] 132 [facility] [place] [address] Carcinoma of gallbladder (HCC) 03/09/2024 12:15 PM EDT Immunization/Inject ion Hematology/Oncolog y Treatment, [place] 200 [facility] [phone] Nurse, Med 4 [address] [place] [address] 03/14/2024 2:25 PM EDT Office Visit Hematology/Oncolog y [facility] Jessica [place] [address] [place] [phone] Hardik Gross MD [address] [place] [address] 03/15/2024 1:00 PM EDT Imaging Radiology [facility] 132 [facility] [place] [address] 03/20/2024 10:10 AM EDT Laboratory Laboratory [facility] Jessica [place] [address] [place] [phone] Jessica, Lab [facility] [address] [facility] [place] [address] 03/21/2024 1:00 PM EDT Hem/Onc Treatment Hematology/Oncolog y Treatment, [place] 200 [facility] [place] [phone] eJssica, Chair 5 Hem Onc [address] [place] [address] 03/21/2024 3:40 PM EDT Office Visit Family Practice 65 [facility], [place] 293 [facility] [address] Kristine Kan, DO [address] [place] [address] 03/28/2024 9:45 AM EDT Imaging Radiology [facility] 1st [facility], [place] [address] [place] [address] 01/02/2025 10:00 AM EDT Office Visit Nephrology, [facility] [address] [place] [address] Lizandro Motta MD [address] [place] [address] Health Maintenance Due Date Last Done Comments COVID-19 Vaccine ( season) 2024 11/08/2023, 07/10/2022, 01/06/2022, Additional history exists Albumin/Creatinine Ratio 09/02/2024 09/02/2023, 10/2021 GFR 09/05/2024 03/06/2024, 02/02, 02/21/2024, Additional history exists CKD PHOS USE SMARTSET 19911 11/25/2024 11/25/2023, 0 12/05/2022 HbA1c 11/25/2024 11/25/2023, 11/04, 05/04/2022, Additional history exists CKD HGB USE SMARTSET 73543 03/06/202503/06, 03/06/2024, 02/29/2024, Additional history exists DXA [...] this encounter Medical Devices Implanted Type Area Crane Operator Device Identifier Shelf Expiration Date Model / Serial / Lot Lens Intraoc 21.5 - [id number] - [id number] Implanted:Qty: 1 on 07/27/2019 by Tristian Araujo MD at OR [facility] Left: Eye BAUSCH & LOMB 04/02/2024 [id number] / [id number] / [id number] Lens Intraoc 21.5 - [id number] - [id number] Implanted:Qty: 1 on 08/08/2019 by Tristian Araujo MD at OR [facility] Right: Eye BAUSCH & LOMB 04/02/2024 [id number] / [id number] / [id number] Stent Axios [id number] - [id number] Implanted:Qty: 1 on 12/07/2022 by Tanya Morris MD at OR [facility] N/A: Abdomen [employer] : ENDOSCOPY [id number] 08/25/2023 [id number] / / [id number] Stent Bili Pigtail 7fr 100mm - [id number] Implanted:Qty: 1 on 12/07/2022 by Tanya Morris MD at OR [facility] N/A: Abdomen [employer] [id number] 08/03/2025 PBD-1033-0 710 / / 2YK Stent Bili Pigtail 7fr 100mm - [id number] Implanted:Qty: 1 on 12/07/2022 by Tanya Morris MD at OR [facility] N/A: Abdomen [employer] [id number] 08/03/2025 PBD-1033-0 710 / / 2YK Power Port 8fr Sngl Lumen Plas - [id number] Implanted:Qty: 1 on 12/29/2022 by Landon Hickman DO at OR [facility] Right: Chest CR BARD : PERIPHERAL VASCULAR [id number] 12/02/2023 [id number] / / [id number] Hanarostent Noncover 10dm 10cm - [id number] Implanted:Qty: 1 on 02/19/2023 by Tanya Morris MD at OR [facility] [employer] [id number] 12/31/2024 [facility]-10-100 -180 / / [id number] documented as of this encounter Advance Directives * Full Code (Latest Code Status on File) Date Activated Date Inactivated Comments 12/04/2022 10:10 PM 12/08/2022 3:55 PM This order re flects the patients wishes and were consensually agreed upon. Question Answer Comments Discussion of Advance Directives occurred with: Patient Care Teams Drupal Php Developer Relationship Specialty Start Date End Date Kristine Kan DO 293 [place] [address] PCP - General Family Medicine 12/18/22 documented as of this encounter
--- OUTSIDE RECORDS SUMMARY | 2024-06-06 23:41 | External Medical Summary | Summary of Care ---
Author Name Unknown Organization [facility] Address [address] [place] [address] Phone [phone] Care Team Providers Care Criminal Records Technician Name Role Phone Kristine Kan Primary Care Provider + [phone] Reason for Visit * Reason Comments Chemotherapy C4/D1 - FOLFOX * Episode Based Medications (Routine) - Authorized Specialty Diagnoses / Procedures Referred By Marcela t Referred To Contact Diagnoses Carcinoma of gallbladder (HCC) Encounter for antineoplastic chemotherapy Procedures WV LEUCOVORIN CALCIUM INJECTION WV PALONOSETRON HCL WV FLUOROURACIL INJECTION WV OXALIPLATIN Hardik Gross MD [address] [place] [address] [place] [address] Anc Hem/Onc [address] [address] Referral ID Status Reason Start Date Expiration Date V isits Requested Visits Authorized [id number] Authorized 12/14/2023 12/13/2024 999 999 Encounter Details Date Type Department Care Team (Latest Contact Info) Description 02/08/2024 12:00 PM EDT Hem/Onc Treatment Hematology/Oncolog y Treatment, [address] [address] Jessica, Chair 3 Hem On[address] [place] [address] Carcinoma of gallbladder (HCC)*; Encounter for antineoplastic [...] mcgIndications:Vitamin B 12 deficiency 1000 mcg IM [id number] 09/02/2023 08/03/2024 Active documented as of this [...] 03/14/2024 2:25 PM EDT Office Visit Hematology/Oncology [facility] [place] [address] [place] [phone] Hardik Gross MD [address] [place] [address] 03/15/2024 1:00 PM EDT Imaging Radiology [address] 132 [facility] [address] 03/20/2024 10:10 AM EDT Laboratory Laboratory [facility] Jessica [place] [address] [phone] Jessica, Lab [facility] [address] [place] [address] 03/21/2024 1:00 PM EDT Hem/Onc Treatment Hematology/Oncology Treatment, [place] [address] [place] [phone] Jessica, Chair 5 Hem Onc [place] [address] [place] [address] 03/21/2024 3:40 PM EDT Office Visit Family Practice [address], [place] 293 [facility] [address] Kristine Kan DO 293 [facility] [address] 03/28/2024 9:45 AM EDT Imaging Radiology [address] 132 [facility] [place] [address] 01/02/2025 10:00 AM EDT Office Visit Nephrology, [facility] [address] [place] [address] Lizandro Motta MD [address] [place] [address] Health Maintenance Due Date Last Done Comments COVID-19 Vaccine ( season) 2024 11/08/2023, 07/10/2022, 01/06/2022, Additional history exists Albumin/Creatinine Ratio 09/02/2024 09/02/2023, 08/0 10/2021 GFR 09/05/2024 03/06/2024, 02/02, 02/21/2024, Additional history exists CKD PHOS USE SMARTSET 07094 11/25/2024 11/25/2023, 0 12/05/2022 HbA1c 11/25/2024 11/25/2023, 11/04, 05/04/2022, Additional history exists CKD HGB USE SMARTSET 87458 03/06/202503/06, 03/06/2024, 02/29/2024, Additional history exists DXA [...] this encounter Medical Devices Implanted Type Area Retail Operations Manager Device Identifier Shelf Expiration Date Model / Serial / Lot Lens Intraoc 21.5 - [id number] - [id number] Implanted:Qty: 1 on 07/27/2019 by Tristian Araujo MD at OR [facility] Left: Eye BAUSCH & LOMB 04/02/2024 [id number] / [id number] / [id number] Lens Intraoc 21.5 - [id number] - [id number] Implanted:Qty: 1 on 08/08/2019 by Tristian Araujo MD at OR [facility] Right: Eye BAUSCH & LOMB 04/02/2024 [id number] / [id number] / [id number] Stent Axios [id number] - [id number] Implanted:Qty: 1 on 12/07/2022 by Tanya Morris MD at OR [facility] N/A: Abdomen [employer] : ENDOSCOPY [id number] 08/25/2023 [id number] / / [id number] Stent Bili Pigtail 7fr 100mm - [id number] Implanted:Qty: 1 on 12/07/2022 by Tanya Morris MD at OR [facility] N/A: Abdomen [employer] [id number] 08/03/2025 PBD-1033-0 710 / / [id number] Stent Bili Pigtail 7fr 100mm - [id number] Implanted:Qty: 1 on 12/07/2022 by Tanya Morris MD at OR [facility] N/A: Abdomen [employer] [id number] 08/03/2025 PBD-1033-0 710 / / 2YK Power Port 8fr Sngl Lumen Plas - [id number] Implanted:Qty: 1 on 12/29/2022 by Landon Hickman DO at OR [facility] Right: Chest CR BARD : PERIPHERAL VASCULAR [id number] 12/02/2023 [id number] / / [id number] Hanarostent Noncover 10dm 10cm - [id number] Implanted:Qty: 1 on 02/19/2023 by Tanya Morris MD at OR [facility] [employer] [id number] 12/31/2024 SHS-10-100 -180 / / [id number] documented as of this encounter Visit Diagnoses [...] at 1230, For 1 dose, Restricted per [facility] antiemetic guidelines Given 02/08/2024 12:19 [...] Advance Directives occurred with: Patient Care Teams Criminal Records Technician Relationship Specialty Start Date End Date Kristine Kan DO 293 [place] [address] PCP - General Family Medicine 12/18/22 documented as of this encounter
--- OUTSIDE RECORDS SUMMARY | 2024-06-06 23:41 | External Medical Summary | Summary of Care ---
Author Name Unknown Organization [facility] Address [address] [place] [address] Phone [phone] Care Team Providers Care Piece Work Inspector Name Role Phone Kristine Kan Primary Care Provider [phone] Reason for Visit * Reason Onset Date Comments Advice 03/08/2024 Dr. Cordova Encounter Details Date Type Department Care Team (Late st Contact Info) Description 03/08/2024 Telephone Hematology/Oncology [facility] [address] [place] [address] Services, Scheduling [address] [place] [address] Advice (Dr. Cordova) Allergies Active Allergy Reactions Criticality Noted Date [...] mcgIndications:Vitamin B 12 deficiency 1000 mcg IM [id number] 09/02/2023 08/03/2024 Active Fluorouracil (5-Fu) 4,475 mg [...] Encounter - Carla Damon RN - 03/08/2024 3:49 PM EDT Patient is on megace. Dr Cordova: is it ok for patient to be continuing this? * Telephone Encounter - Carla Damon RN - 03/08/2024 10:52 AM EDTSigned Prescriptions: Disp Refills Apixaban Starter Pack 5 MG Oral Tablet The*74 Tab*0 Si mg twice a day by mouth for 7 days, then 5 mg by mouth twice a day.Authorizing Provider: CRYSTAL CORDOVA Apixaban 5 MG Oral Tablet (Eliquis) 60 Tab*5 Sig: Take 1 Tablet by mouth in the morning and 1Tablet before bedtime. Do not start before April 05, 2024.Authorizing Provider: HARDIK CORDOVA * Addendum Note - Carla Damon RN - 03/08/2024 8:48 AM EDTAddended by: CARLA DAMON on: 03/08/2024 08:48 AM Modules accepted: Orders * Telephone Encounter - Carla Damon RN - 03/08/2024 8:34 AM EDT Spoke to Dr Cordova- patient to start eliquis. Called and spoke to patient/ . Reviewed results and eliquis rx. [facility] * Telephone Encounter - Carla Damon RN - 03/08/2024 8:14 AM EDT Spoke to Emy- showed bilateral popliteal DVTs. R is nonocclusive, L is bordering on occluding. She is having an echo at 9:15 so will be there for a little while still. TT sent to Dr Cordova. * Telephone Encounter - May Borden OSA - 03/08/2024 8:08 AM EDT Za with the Vascular Lab called with a preliminary report. She advised the patient is positive forDVT in both legs. She asked for a call back at [phone] with instruction as soon as possible so they can advise the patient. Thank you. documented in this encounter Plan of Treatment Upcoming Encounters Date Type Department Care Team (Late st Contact Info) Description 03/09/2024 12:15 PM EDT Immunization/Injecti on Hematology/Oncology Treatment, [place] [address] [place] [phone] Nurse, Med 4 200 [facility] [place] [address] 03/14/2024 2:25 PM EDT Office Visit Hematology/Oncology [facility] [place] [address] [place] [phone] Hardik Cordova MD 200 [facility] [place] [address] 03/15/2024 1:00 PM EDT Imaging Radiology [facility] 1st [facility], [place] 132 [facility] [place] [address] 03/20/2024 10:10 AM EDT Laboratory Laboratory [facility] [place] 200 [facility] [place] [phone] [place] [address] [place] [address] 03/21/2024 1:00 PM EDT Hem/Onc Treatment Hematology/Oncology Treatment, [place] 200 [facility] [address] [place], [place] [phone] Park, Chair 5 Hem Onc [facility] 200 [facility] [place] [address] 03/21/2024 3:40 PM EDT Office Visit Family Practice [address], [place] 293 [facility] [address] Kristine Kan DO 293 [facility], [place] [address] 03/28/2024 9:45 AM EDT Imaging Radiology [facility] 1st [facility], [place] 132 [facility] [place] [address] 01/02/2025 10:00 AM EDT Office Visit Nephrology, [facility] [address] [facility] [place] [address] Lizandro Motta MD 200 [facility] [place] [address] Health Maintenance Due Date Last Done Comments COVID-19 Vaccine ( season) 2024 11/08/2023, 07/10/2022, 01/06/2022, Additional history exists Albumin/Creatinine Ratio 09/02/2024 09/02/2023, 08/0 10/2021 GFR 09/05/2024 03/06/2024, 02/02, 02/21/2024, Additional history exists CKD PHOS USE SMARTSET 49923 11/25/2024 11/25/2023, 0 12/05/2022 HbA1c 11/25/2024 11/25/2023, 11/04, 05/04/2022, Additional history exists CKD HGB USE SMARTSET 69807 03/06/202503/06, 03/06/2024, 02/29/2024, Additional history exists DXA [...] this encounter Medical Devices Implanted Type Area Imaging Scheduler Device Identifier Shelf Expiration Date Model / Serial / Lot Lens Intraoc 21.5 - [id number] - [id number] Implanted:Qty: 1 on 07/27/2019 by Tristian Araujo MD at OR [facility] Left: Eye BAUSCH & LOMB 04/02/2024 [id number] / [id number] / [id number] Lens Intraoc 21.5 - [id number] - [id number] Implanted:Qty: 1 on 08/08/2019 by Tristian Araujo MD at OR [facility] Right: Eye BAUSCH & LOMB 04/02/2024 [id number] / [id number] / [id number] Stent Axios [id number] - [id number] Implanted:Qty: 1 on 12/07/2022 by Tanya Morris MD at OR [facility] N/A: Abdomen [employer] : ENDOSCOPY [id number] 08/25/2023 [id number] / / [id number] Stent Bili Pigtail 7fr 100mm - [id number] Implanted:Qty: 1 on 12/07/2022 by Tanya Morris MD at OR [facility] N/A: Abdomen [employer] [id number] 08/03/2025 PBD-1033-0 710 / / 2YK Stent Bili Pigtail 7fr 100mm - [id number] Implanted:Qty: 1 on 12/07/2022 by Tanya Morris MD at OR [facility] N/A: Abdomen [employer] [id number] 08/03/2025 PBD-1033-0 710 / / 2YK Power Port 8fr Sngl Lumen Plas - [id number] Implanted:Qty: 1 on 12/29/2022 by Landon Hickman DO at OR [facility] Right: Chest CR BARD : PERIPHERAL VASCULAR [id number] 12/02/2023 [id number] / / [id number] Hanarostent Noncover 10dm 10cm - [id number] Implanted:Qty: 1 on 02/19/2023 by Tanya Morris MD at OR [facility] [employer] [id number] 12/31/2024 [facility]-10-100 -180 / / [id number] documented as of this encounter Visit Diagnoses [...] Advance Directives occurred with: Patient Care Teams Piece Work Inspector Relationship Specialty Start Date End Date Kristine Kan DO 293 [place] [address] PCP - General Family Medicine 12/18/22 documented as of this encounter
--- OUTSIDE RECORDS SUMMARY | 2024-06-06 23:41 | External Medical Summary | Summary of Care ---
Author Name Unknown Organization [facility] Address [address] [place] [address] Phone [phone] Care Team Providers Care Seo Team Lead Name Role Phone Kristine Kan Primary Care Provider [phone] Reason for Visit * Reason Onset Date Comments Advice 03/08/2024 Dr. Cordova Encounter Details Date Type Department Care Team (Late st Contact Info) Description 03/08/2024 Telephone Hematology/Oncology [facility] [address] [place] [address] Services, Scheduling [address] [place] [address] Advice (Dr. Cordova) Allergies Active Allergy Reactions [...] mcgIndications:Vitamin B 12 deficiency 1000 mcg IM [id number] 09/02/2023 08/03/2024 Active Fluorouracil (5-Fu) 4,475 mg [...] Miscellaneous Notes * Telephone Encounter - Carla Damon, RN - 03/09/2024 11:[address] Cordova's routing comment: "She can continue" * Telephone Encounter - Carla Damon RN [...] [facility] [place] * Telephone Encounter - Carla Damon RN [...] She asked for a call back at [phone] with instruction as soon as possible so they can advise the patient. Thank you. documented in this encounter Plan of Treatment Upcoming Encounters Date Type Department Care Team (Late st Contact Info) Description 03/09/2024 12:15 PM EDT Immunization/Injecti on Hematology/Oncology Treatment, [place] [address] [place] [address] Nurse, Med 4 200 [facility] [place] [address] 03/14/2024 2:25 PM EDT Office Visit Hematology/Oncology [facility] [place] [address] [place] [address] Hardik Cordova MD [address] [place] [address] 03/15/2024 1:00 PM EDT Imaging Radiology [address], [place] 132 [facility] [place] [address] 03/20/2024 10:10 AM EDT Laboratory Laboratory [facility] [place] [address] [place], [place] [phone] Jessica, Lab [facility] [address] [place], [place] [address] 03/21/2024 1:00 PM EDT Hem/Onc Treatment Hematology/Oncology Treatment, [place] [address] [place], [place] [phone] Jessica, Chair 5 Hem Onc [facility] [address] [place], [place] [address] 03/21/2024 3:40 PM EDT Office Visit Family Practice [address], [place] 293 [facility] [place] [phone] Kristine Kan DO 293 [facility], [place] [address] 03/28/2024 9:45 AM EDT Imaging Radiology [facility] 1st [facility], [place] 132 [facility] [place] [address] 01/02/2025 10:00 AM EDT Office Visit Nephrology, [facility] [address] [place], [place] [address] Lizandro Motta MD 200 [facility] [place], [place] [address] Health Maintenance Due Date Last Done Comments COVID-19 Vaccine ( season) 2024 11/08/2023, 07/10/2022, 01/06/2022, Additional history exists Albumin/Creatinine Ratio 09/02/2024 09/02/2023, 0810/2021 GFR 09/05/2024 03/06/2024, 02/02, 02/21/2024, Additional history exists CKD PHOS USE SMARTSET 07525 11/25/2024 11/25/2023, 0 12/05/2022 HbA1c 11/25/2024 11/25/2023, 11/04, 05/04/2022, Additional history exists CKD HGB USE SMARTSET 90147 03/06/202503/06, 03/06/2024, 02/29/2024, Additional history exists DXA [...] this encounter Medical Devices Implanted Type Area Maintenance Mechanic Helper Device Identifier Shelf Expiration Date Model / Serial / Lot Lens Intraoc 21.5 - [id number] - [id number] Implanted:Qty: 1 on 07/27/2019 by Tristian Araujo MD at OR [facility] Left: Eye BAUSCH & LOMB 04/02/2024 [id number] / [id number] / [id number] Lens Intraoc 21.5 - [id number] - [id number] Implanted:Qty: 1 on 08/08/2019 by Tristian Araujo MD at OR [facility] Right: Eye BAUSCH & LOMB 04/02/2024 [id number] / [id number] / [id number] Stent Axios [id number] - [id number] Implanted:Qty: 1 on 12/07/2022 by Tanya Morris MD at OR [facility] N/A: Abdomen [employer] : ENDOSCOPY [id number] 08/25/2023 [id number] / / [id number] Stent Bili Pigtail 7fr 100mm - [id number] Implanted:Qty: 1 on 12/07/2022 by Tanya Morris MD at OR [facility] N/A: Abdomen [employer] [id number] 08/03/2025 PBD-1033-0 710 / / 2YK Stent Bili Pigtail 7fr 100mm - [id number] Implanted:Qty: 1 on 12/07/2022 by Tanya Morris MD at OR [facility] N/A: Abdomen [employer] [id number] 08/03/2025 PBD-1033-0 710 / / 2YK Power Port 8fr Sngl Lumen Plas - [id number] Implanted:Qty: 1 on 12/29/2022 by Landon Hickman DO at OR [facility] Right: Chest CR BARD : PERIPHERAL VASCULAR [id number] 12/02/2023 [id number] / / [id number] Hanarostent Noncover 10dm 10cm - [id number] Implanted:Qty: 1 on 02/19/2023 by Tanya Morris MD at OR [facility] [employer] [id number] 12/31/2024 [facility]-10-100 -180 / / [id number] documented as of this encounter Visit Diagnoses [...] Advance Directives occurred with: Patient Care Teams Seo Team Lead Relationship Specialty Start Date End Date Kristine Kan DO 293 [place] [address] PCP - General Family Medicine 12/18/22 documented as of this encounter
--- OUTSIDE RECORDS SUMMARY | 2024-06-06 23:41 | External Medical Summary | Summary of Care ---
Author Name Unknown Organization [facility] Address [address] [place] [address] Phone [phone] Care Team Providers Care Pipe Changer Name Role Phone Kristine Kan Primary Care Provider [phone] Reason for Referral * Precert (Within 10 days (routine)) - Authorized Specialty Diagnoses / Procedures Referred By Contac t Referred To Contact Cardiac Studies Diagnoses Carcinoma of gallbladder (HCC) Procedures ECHO, COMPLETE (2D), TRANS-THORACIC Hardik Gross MD [address] [place] [address] Referral ID Status Reason Start Date Expiration Date V isits Requested Visits Authorized [id number] Authorized Precert 03/08/2024 999 999 Reason for Visit * Reason Onset Date Comments Cardiology Study 03/08/2024 Encounter Details Date Type Department Care Team (Late st Contact Info) Description 03/08/2024 Telephone Cardiac Studies, [facility] 132 [facility] [place] [address] Hardik Gross MD [address] [place] [address] Cardiology Study Allergies Active Allergy Reactions Criticality Noted Date [...] Tablet Therapy Pack (Eliquis DVT/PE Starter Pack)Indications:Ac [place] deep vein thrombosis (DVT) of popliteal [...] mcgIndications:Vitamin B 12 deficiency 1000 mcg IM [id number] 09/02/2023 08/03/2024 Active Fluorouracil (5-Fu) 4,475 mg [...] encounter Miscellaneous Notes * Telephone Encounter - John Lopez RDCS - 03/08/2024 9:01 AM EDT New echo order placed to be routed to [facility]. documented in this encounter Plan of Treatment Upcoming Encounters Date Type Department Care Team (Late st Contact Info) Description 03/09/2024 12:15 PM EDT Immunization/Injecti on Hematology/Oncology Treatment, [place] 200 [facility] [place] [phone] Nurse, Med [address] [place] [address] 03/14/2024 2:25 PM EDT Office Visit Hematology/Oncology [facility] Jessica [place] [address] [place] [phone] Hardik Gross MD [address] [place] [address] 03/15/2024 1:00 PM EDT Imaging Radiology [facility] 1st [facility], [place] 132 [facility] [place] [address] 03/20/2024 10:10 AM EDT Laboratory Laboratory [facility] Jessica [place] [address] [place] [address] [phone] Jessica Lab [place] [address] [place] [address] 03/21/2024 1:00 PM EDT Hem/Onc Treatment Hematology/Oncology Treatment, [place] 200 [facility] [place] [phone] Jessica, Chair 5 Hem Onc [facility] 200 [facility] [place] [address] 03/21/2024 3:40 PM EDT Office Visit Family Practice [address], [place] 293 [place] [address] Kristine Kan DO 293 [facility], [place] [address] 03/28/2024 9:45 AM EDT Imaging Radiology [facility] 1st [facility], [place] 132 [facility] [place] [address] 01/02/2025 10:00 AM EDT Office Visit Nephrology, [facility] 200 [facility] [place] [address] Lizandro Motta MD 200 [facility] [place], [place] [address] Pending Results Name Type Priority Associated Diagnoses Date /Time ECHO, COMPLETE (2D), TRANS-THORACIC Echocardiology Routine Carcinoma of gallbladder (HCC) 03/08/2024 9:03 AM EDT Scheduled Orders Name Type Priority Associated Diagnoses Orde r Schedule ECHO, COMPLETE (2D), TRANS-THORACIC Echocardiology Routine Carcinoma of gallbladder (HCC) Expected: 03/08/2024 (Approximate), Expires: 03/08/2025 Health Maintenance Due Date Last Done Comments COVID-19 Vaccine ( season) 2024 11/08/2023, 07/10/2022, 01/06/2022, Additional history exists Albumin/Creatinine Ratio 09/02/2024 09/02/2023, 08/0 10/2021 GFR 09/05/2024 03/06/2024, 02/02, 02/21/2024, Additional history exists CKD PHOS USE SMARTSET 14610 11/25/2024 11/25/2023, 0 12/05/2022 HbA1c 11/25/2024 11/25/2023, 11/04, 05/04/2022, Additional history exists CKD HGB USE SMARTSET 82867 03/06/202503/06, 03/06/2024, 02/29/2024, Additional history exists DXA [...] this encounter Medical Devices Implanted Type Area Underwear Hemmer Device Identifier Shelf Expiration Date Model / Serial / Lot Lens Intraoc 21.5 - [id number] - [id number] Implanted:Qty: 1 on 07/27/2019 by Tristian Araujo MD at OR [facility] Left: Eye BAUSCH & LOMB 04/02/2024 [id number] / [id number] / [id number] Lens Intraoc 21.5 - [id number] - [id number] Implanted:Qty: 1 on 08/08/2019 by Tristian Araujo MD at OR [facility] Right: Eye BAUSCH & LOMB 04/02/2024 [id number] / [id number] / [id number] Stent Axios [id number] - [id number] Implanted:Qty: 1 on 12/07/2022 by Tanya Morris MD at OR [facility] N/A: Abdomen [employer] : ENDOSCOPY [id number] 08/25/2023 [id number] / / [id number] Stent Bili Pigtail 7fr 100mm - [id number] Implanted:Qty: 1 on 12/07/2022 by Tanya Morris MD at OR [facility] N/A: Abdomen [employer] [id number] 08/03/2025 PBD-1033-0 710 / / [id number] Stent Bili Pigtail 7fr 100mm - [id number] Implanted:Qty: 1 on 12/07/2022 by Tanya Morris MD at OR [facility] N/A: Abdomen [employer] [id number] 08/03/2025 PBD-1033-0 710 / / 2YK Power Port 8fr Sngl Lumen Plas - [id number] Implanted:Qty: 1 on 12/29/2022 by Landon Hickman DO at OR [facility] Right: Chest CR BARD : PERIPHERAL VASCULAR [id number] 12/02/2023 [id number] / / [id number] Hanarostent Noncover 10dm 10cm - [id number] Implanted:Qty: 1 on 02/19/2023 by Tanya Morris MD at OR [facility] [employer] [id number] 12/31/2024 SHS-10-100 -180 / / [id number] documented as of this encounter Visit Diagnoses [...] Directives occurred with: Patient Care Teams Pipe Changer Relationship Specialty Start Date End Date Kristine Kan DO 293 [place] [address] PCP - General Family Medicine 12/18/22 documented as of this encounter
--- OUTSIDE RECORDS SUMMARY | 2024-06-06 23:42 | External Medical Summary | Summary of Care ---
Author Name Unknown Organization [facility] Address [address] [place] [address] Phone [phone] Prov[address] Care [address] Worker Name Role Phone Kristine Kan Primary Care Provider Encounter Details Date Type Department Care Team (Late st Contact Info) Description 03/07/2024 Population Health External Data Unspecified Department Allergies Active Allergy Reactions Criticality Noted Date Comments Latex Rash 06/28/2018 From a dressing Sulfamethoxazole Edema face/lips/tongue High 023 Trimethoprim Edema face/lips/tongue High 12/03/2022 documented as of this encounter (statuses as of 03/07/2024) Medications Medication Sig Dispensed Refills Start Date [...] mcgIndications:Vitamin B 12 deficiency 1000 mcg IM [id number] 09/02/2023 08/03/2024 Active Fluorouracil (5-Fu) 4,475 mg in NSS 138 mL infusion 4475 mg IV CONTINUOUS 03/06/2024 03/08/2024 Active documented as of this encounter (statuses as of 03/07/2024) Active Problems Problem Noted Date Diagnosed Date [...] as of this encounter (statuses as of 03/07/2024) Resolved Problems Problem Noted Date Diagnosed Date [...] as of this encounter (statuses as of 03/07/2024) Immunizations Name Administration Dates Next Due COVID-19 [...] PM EDT Hem/Onc Treatment Hematology/Oncolog y Treatment, [place] [address] [place] [address] Jessica, Chair 3 Hem Onc Scenery 200 [facility] [place] [address] Carcinoma of gallbladder (HCC)*; Encounter for antineoplastic chemotherapy 03/08/2024 9:15 AM EDT Cardiac Studies Cardiac Studies, [facility] 132 [facility] [place] [address] 03/14/2024 2:25 PM EDT Office Visit Hematology/Oncolog y Scenery Jessica [place] [address] [place] [address] Hardik Gross MD [address] [place] [address] 03/15/2024 1:00 PM EDT Imaging Radiology [facility] 1st [facility] 132 [facility] [place] [address] 03/21/2024 3:40 PM EDT Office Visit Family Practice [address], [place] 293 [place] [address] Kristine Kan DO 293 [place] [address] Health Maintenance Due Date Last Done Comments COVID-19 Vaccine ( season) 2024 11/08/2023, 07/10/2022, 01/06/2022, Additional history exists Albumin/Creatinine Ratio 09/02/2024 09/02/2023, 080 10/2021 GFR 09/05/2024 03/06/2024, 02/02, 02/21/2024, Additional history exists CKD PHOS USE SMARTSET 33515 11/25/2024 11/25/2023, 0 12/05/2022 HbA1c 11/25/2024 11/25/2023, 11/04, 05/04/2022, Additional history exists CKD HGB USE SMARTSET 00324 03/06/202503/06, 03/06/2024, 02/29/2024, Additional history exists DXA [...] this encounter Medical Devices Implanted Type Area Linting Machine Operator Device Identifier Shelf Expiration Date Model / Serial / Lot Lens Intraoc 21.5 - [id number] - [id number] Implanted:Qty: 1 on 07/27/2019 by Tristian Araujo MD at OR [facility] Left: Eye BAUSCH & LOMB 04/02/2024 [id number] / [id number] / [id number] Lens Intraoc 21.5 - [id number] - [id number] Implanted:Qty: 1 on 08/08/2019 by Tristian Araujo MD at OR [facility] Right: Eye BAUSCH & LOMB 04/02/2024 [id number] / [id number] / [id number] Stent Axios 10tcb48td - [id number] Implanted:Qty: 1 on 12/07/2022 by Tanya Morris MD at OR [facility] N/A: Abdomen [employer] : ENDOSCOPY [id number] 08/25/2023 [id number] / / [id number] Stent Bili Pigtail 7fr 100mm - [id number] Implanted:Qty: 1 on 12/07/2022 by Tanya Morris MD at OR [facility] N/A: Abdomen [employer] [id number] 08/03/2025 PBD-1033-0 710 / / [id number] Stent Bili Pigtail 7fr 100mm - [id number] Implanted:Qty: 1 on 12/07/2022 by Tanya Morris MD at OR [facility] N/A: Abdomen [employer] [id number] 08/03/2025 PBD-1033-0 710 / / 2YK Power Port 8fr Sngl Lumen Plas - [id number] Implanted:Qty: 1 on 12/29/2022 by Landon Hickman DO at OR [facility] Right: Chest CR BARD : PERIPHERAL VASCULAR [id number] 12/02/2023 [id number] / / [id number] Hanarostent Noncover 10dm 10cm - [id number] Implanted:Qty: 1 on 02/19/2023 by Tanya Morris MD at OR [facility] [employer] [id number] 12/31/2024 SHS-10-100 -180 / / [id number] documented as of this encounter Advance Directives * Full Code (Latest Code Status on File) Date Activated Date Inactivated Comments 12/04/2022 10:10 PM 12/08/2022 3:55 PM This order re flects the patients wishes and were consensually agreed upon. Question Answer Comments Discussion of Advance Directives occurred with: Patient Care Teams Drive Worker Relationship Specialty Start Date End Date Kristine Kan DO 293 [facility] [place] [facility] [address] PCP - General Family Medicine 12/18/22 documented as of this encounter
--- OUTSIDE RECORDS SUMMARY | 2024-06-06 23:42 | External Medical Summary | Summary of Care ---
Author Name Unknown Organization [facility] Address [address] [place] [address] Phone [phone] Care Team Providers Care Fire Prevention Officer Name Role Phone Kristine Kan Primary Care Provider [phone] Reason for Visit * Reason Onset Date Comments Appointment 03/07/2024 Encounter Details Date Type Department Care Team (Late st Contact Info) Description 03/07/2024 Telephone [facility] [place] [address] [place] [address] Services, Scheduling [address] [place] [address] Appointment (//) Allergies Active Allergy Reactions Criticality Noted Date [...] mcgIndications:Vitamin B 12 deficiency 1000 mcg IM [id number] 09/02/2023 08/03/2024 Active Fluorouracil (5-Fu) 4,475 mg [...] encounter Miscellaneous Notes * Telephone Encounter - Moe Paulson OSA - 03/07/2024 10:15 AM EDT [facility] Engagement Attempt Engagement: Engagement Attempt 1: Contacted - Declined home-based services Declined Reason Patient declined program enrollment Episode closed Declined reason: No data was found Home Information: No data was found Advance Care Planning (ACP): No data was found Has Living Will or Advance Directive: No data was found Anticipated Sub-Program: Short-Term Management (less than 3 months) Confirmation of Sub-Program Type (by care food service team member): No data was found Handoff Information: Current care team notified via: Epic communication Current telemonitoring equipment: No data was found documented in this encounter Plan of Treatment Upcoming Encounters Date Type Department Care Team (Latest Contact Info) Description 03/07/2024 1:00 PM EDT Hem/Onc Treatment Hematology/Oncolog y Treatment, [place] [address] [place], [place] [phone] Jessica, Chair 3 Hem Onc Scen[address] [place] [address] Carcinoma of gallbladder (HCC)*; Encounter for antineoplastic chemotherapy 03/08/2024 9:15 AM EDT Cardiac Studies [facility] [address] 03/14/2024 2:25 PM EDT Office Visit Hematology/Oncolog y [facility] Jessica [place] [address] [place] [address] Hardik Gross MD [address] [place] [address] 03/15/2024 1:00 PM EDT Imaging Radiology [facility] 1st [facility] 132 [facility] [place] [address] 03/21/2024 3:40 PM EDT Office Visit Family Practice [address], [place] 293 [place] [address] Kristine Kan DO 293 [facility], [place] [address] Health Maintenance Due Date Last Done Comments COVID-19 Vaccine ( season) 2024 11/08/2023, 07/10/2022, 01/06/2022, Additional history exists Albumin/Creatinine Ratio 09/02/2024 09/02/2023, 08/0 10/2021 GFR 09/05/2024 03/06/2024, 0505/2024, 02/21/2024, Additional history exists CKD PHOS USE SMARTSET 15634 11/25/2024 11/25/2023, 0 12/05/2022 HbA1c 11/25/2024 11/25/2023, 11/04, 05/04/2022, Additional history exists CKD HGB USE SMARTSET 09623 03/06/202503/06, 03/06/2024, 02/29/2024, Additional history exists DXA [...] this encounter Medical Devices Implanted Type Area Screw Machine Set Up Operator Tool Device Identifier Shelf Expiration Date Model / Serial / Lot Lens Intraoc 21.5 - [id number] - [id number] Implanted:Qty: 1 on 07/27/2019 by Tristian Araujo MD at OR [facility] Left: Eye BAUSCH & LOMB 04/02/2024 [id number] / [id number] / [id number] Lens Intraoc 21.5 - [id number] - [id number] Implanted:Qty: 1 on 08/08/2019 by Tristian Araujo MD at OR [facility] Right: Eye BAUSCH & LOMB 04/02/2024 [id number] / [id number] / [id number] Stent Axios 36kuj20gi - [id number] Implanted:Qty: 1 on 12/07/2022 by Tanya Morris MD at OR [facility] N/A: Abdomen [employer] : ENDOSCOPY [id number] 08/25/2023 [id number] / / [id number] Stent Bili Pigtail 7fr 100mm - [id number] Implanted:Qty: 1 on 12/07/2022 by Tanya Morris MD at OR [facility] N/A: Abdomen [employer] [id number] 08/03/2025 PBD-1033-0 710 / / [id number] Stent Bili Pigtail 7fr 100mm - [id number] Implanted:Qty: 1 on 12/07/2022 by Tanya Morris MD at OR [facility] N/A: Abdomen [employer] [id number] 08/03/2025 PBD-1033-0 710 / / 2YK Power Port 8fr Sngl Lumen Plas - [id number] Implanted:Qty: 1 on 12/29/2022 by Landon Hickman DO at OR [facility] Right: Chest CR BARD : PERIPHERAL VASCULAR [id number] 12/02/2023 [id number] / / [id number] Hanarostent Noncover 10dm 10cm - [id number] Implanted:Qty: 1 on 02/19/2023 by Tanya Morris MD at OR [facility] [employer] [id number] 12/31/2024 SHS-10-100 -180 / / [id number] documented as of this encounter Advance Directives * Full Code (Latest Code Status on File) Date Activated Date Inactivated Comments 12/04/2022 10:10 PM 12/08/2022 3:55 PM This order re flects the patients wishes and were consensually agreed upon. Question Answer Comments Discussion of Advance Directives occurred with: Patient Care Teams Fire Prevention Officer Relationship Specialty Start Date End Date Kristine Kan DO 293 [facility] [place] [address] PCP - General Family Medicine 12/18/22 documented as of this encounter
--- OUTSIDE RECORDS SUMMARY | 2024-06-06 23:42 | External Medical Summary | Summary of Care ---
Author Name Unknown Organization [facility] Address [address] [place] [address] Phone [phone] Care Team Providers Care Pressfitter Name Role Phone Kristine Kan Primary Care Provider [phone] Encounter Details Date Type Department Care Team (Late st Contact Info) Description 03/07/2024 Orders Only Hematology/Oncology, [facility] [address] [place] [address] Hardik Gross MD [address] [place] [address] Allergies Active Allergy Reactions Criticality Noted Date [...] mcgIndications:Vitamin B 12 deficiency 1000 mcg IM [id number] 09/02/2023 08/03/2024 Active Fluorouracil (5-Fu) 4,475 mg [...] PM EDT Hem/Onc Treatment Hematology/Oncolog y Treatment, [place] [address] [place] [address] Jessica, Chair 3 Hem Onc [facility] [address] [place] [address] Carcinoma of gallbladder (HCC)*; Encounter for antineoplastic chemotherapy 03/08/2024 9:15 AM EDT Cardiac Studies Cardiac Studies, [facility] 132 [place] [address] 03/14/2024 2:25 PM EDT Office Visit Hematology/Oncolog y [facility] Jessica [place] [address] [place] [address] Hardik Gross MD [address] [place] [address] 03/15/2024 1:00 PM EDT Imaging Radiology [facility] 1st Floor, [place] [address] [place] [address] 03/21/2024 3:40 PM EDT Office Visit Family Practice [address], [place] 293 [facility] [phone] Kristine Kan DO 293 [facility] [address] Health Maintenance Due Date Last Done Comments COVID-19 Vaccine ( season) 2024 11/08/2023, 07/10/2022, 01/06/2022, Additional history exists Albumin/Creatinine Ratio 09/02/2024 09/02/2023, 10/2021 GFR 09/05/2024 03/06/2024, 02/02, 02/21/2024, Additional history exists CKD PHOS USE SMARTSET 60470 11/25/2024 11/25/2023, 0 12/05/2022 HbA1c 11/25/2024 11/25/2023, 11/04, 05/04/2022, Additional history exists CKD HGB USE SMARTSET 14401 03/06/202503/06, 03/06/2024, 02/29/2024, Additional history exists DXA [...] this encounter Medical Devices Implanted Type Area Automotive Dismantler Device Identifier Shelf Expiration Date Model / Serial / Lot Lens Intraoc 21.5 - [id number] - [id number] Implanted:Qty: 1 on 07/27/2019 by Tristian Araujo MD at OR [facility] Left: Eye BAUSCH & LOMB 04/02/2024 [id number] / [id number] / [id number] Lens Intraoc 21.5 - [id number] - [id number] Implanted:Qty: 1 on 08/08/2019 by Tristian Araujo MD at OR [facility] Right: Eye BAUSCH & LOMB 04/02/2024 [id number] / [id number] / [id number] Stent Axios 06fhn56ha - [id number] Implanted:Qty: 1 on 12/07/2022 by Tanya Morris MD at OR [facility] N/A: Abdomen [employer] : ENDOSCOPY [id number] 08/25/2023 [id number] / / [id number] Stent Bili Pigtail 7fr 100mm - [id number] Implanted:Qty: 1 on 12/07/2022 by Tanya Morris MD at OR [facility] N/A: Abdomen [employer] [id number] 08/03/2025 PBD-1033-0 710 / / 2YK Stent Bili Pigtail 7fr 100mm - [id number] Implanted:Qty: 1 on 12/07/2022 by Tanya Morris MD at OR [facility] N/A: Abdomen [employer] [id number] 08/03/2025 PBD-1033-0 710 / / 2YK Power Port 8fr Sngl Lumen Plas - [id number] Implanted:Qty: 1 on 12/29/2022 by Landon Hickman DO at OR [facility] Right: Chest CR BARD : PERIPHERAL VASCULAR [id number] 12/02/2023 [id number] / / [id number] Hanarostent Noncover 10dm 10cm - [id number] Implanted:Qty: 1 on 02/19/2023 by Tanya Morris MD at OR [facility] [employer] [id number] 12/31/2024 [facility]-10-100 -180 / / [id number] documented as of this encounter Advance Directives * Full Code (Latest Code Status on File) Date Activated Date Inactivated Comments 12/04/2022 10:10 PM 12/08/2022 3:55 PM This order re flects the patients wishes and were consensually agreed upon. Question Answer Comments Discussion of Advance Directives occurred with: Patient Care Teams Pressfitter Relationship Specialty Start Date End Date Kristine Kan DO [address] [place] [address] PCP - General Family Medicine 12/18/22 documented as of this encounter
--- OUTSIDE RECORDS SUMMARY | 2024-06-06 23:42 | External Medical Summary | Summary of Care ---
Author Name Unknown Organization [facility] Address [address] [place] [address] Phone [phone] Care Team Providers Care Painter Helper Spray Name Role Phone Kristine Kan Primary Care Provider [phone] Reason for Visit * Reason Onset Date Comments Appointment 03/07/2024 Encounter Details Date Type Department Care Team (Late st Contact Info) Description 03/07/2024 Telephone Hematology/Oncology Treatment, [place] [address] [place] [address] Samantha Cohen CRNP [address] [place] [address] Appointment Allergies Active Allergy Reactions Criticality Noted [...] mcgIndications:Vitamin B 12 deficiency 1000 mcg IM [id number] 09/02/2023 08/03/2024 Active Fluorouracil (5-Fu) 4,475 mg [...] Miscellaneous Notes * Telephone Encounter - Lucille Roberts OSA - 03/07/2024 10:52 AM EDT Request Summary [[id number]] Procedure: NEPHROLOGY REFERRAL OP Status: Needs Scheduling (Ybaa-nb-Lvhhjgf Pending) Requested appt date: Authorizing: Samantha Cohen CRNP in HEM/ONC [facility] Referral: [id number] (Authorized) Priority: Within 10 days (routine) Diagnosis: Chronic kidney disease, stage 3b (HCC) [N18.32] 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 Order Specific Questions Referral Priority Within 10 days (routine) Where should this appointment be scheduled? [facility] What condition is this patient being seen for? Chronic kidney disease Request History Action Date and Time User Details Request Created 03/07/2024 10:06 Noel, Samantha Linda, PROPERTY TECHNICIAN Appointment Encounter, Details Workqueue Summary Current Workqueues Entry Current Tab NEPHROLOGY RFL ORDERS [[id number]] 03/07/2024 10:06 Active Details Please call pt to schedule documented in this encounter Plan of Treatment Upcoming Encounters Date Type Department Care Team (Latest Contact Info) Description 03/07/2024 1:00 PM EDT Hem/Onc Treatment Hematology/Oncolog y Treatment, [place] [address] [place] [address] Jessica, Chair 3 Hem Onc Scenery 200 [facility] [place] [address] Carcinoma of gallbladder (HCC)*; Encounter for antineoplastic chemotherapy 03/08/2024 9:15 AM EDT Cardiac Studies Cardiac Studies, [facility] 132 [facility] [place] [address] 03/09/2024 1:15 PM EDT Imaging Radiology [facility] 132 [facility] [place] [address] 03/09/2024 2:00 PM EDT Imaging Radiology [facility] 1st [facility] 132 [facility] [place] [address] 03/14/2024 2:25 PM EDT Office Visit Hematology/Oncolog y [facility] Jessica [place] [address] [place] [address] Hardik Gross MD [address] [place] [address] 03/15/2024 1:00 PM EDT Imaging Radiology [address] 132 [facility] [place] [address] 03/21/2024 3:40 PM EDT Office Visit Family Practice [address], [place] 293 [facility] [address] Kristine Kan DO 293 [facility], [place] [address] Health Maintenance Due Date Last Done Comments COVID-19 Vaccine (2022- season) 2024 11/08/2023, 07/10/2022, 01/06/2022, Additional history exists Albumin/Creatinine Ratio 09/02/2024 09/02/2023, 10/2021 GFR 09/05/2024 03/06/2024, 02/02, 02/21/2024, Additional history exists CKD PHOS USE SMARTSET 85507 11/25/2024 11/25/2023, 0 12/05/2022 HbA1c 11/25/2024 11/25/2023, 11/04, 05/04/2022, Additional history exists CKD HGB USE SMARTSET 96596 03/06/202503/06, 03/06/2024, 02/29/2024, Additional history exists DXA [...] this encounter Medical Devices Implanted Type Area Printed Circuit Boards Solder Leveler Device Identifier Shelf Expiration Date Model / Serial / Lot Lens Intraoc 21.5 - [id number] - [id number] Implanted:Qty: 1 on 07/27/2019 by Tristian Araujo MD at OR [facility] Left: Eye BAUSCH & LOMB 04/02/2024 [id number] / [id number] / [id number] Lens Intraoc 21.5 - [id number] - [id number] Implanted:Qty: 1 on 08/08/2019 by Tristian Araujo MD at OR [facility] Right: Eye BAUSCH & LOMB 04/02/2024 [id number] / [id number] / [id number] Stent Axios 40dam95xg - [id number] Implanted:Qty: 1 on 12/07/2022 by Tanya Morris MD at OR [facility] N/A: Abdomen [employer] : ENDOSCOPY [id number] 08/25/2023 [id number] / / [id number] Stent Bili Pigtail 7fr 100mm - [id number] Implanted:Qty: 1 on 12/07/2022 by Tanya Morris MD at OR [facility] N/A: Abdomen [employer] [id number] 08/03/2025 PBD-1033-0 710 / / [id number] Stent Bili Pigtail 7fr 100mm - [id number] Implanted:Qty: 1 on 12/07/2022 by Tanya Morris MD at OR [facility] N/A: Abdomen [employer] [id number] 08/03/2025 PBD-1033-0 710 / / 2YK Power Port 8fr Sngl Lumen Plas - [id number] Implanted:Qty: 1 on 12/29/2022 by Landon Hickman DO at OR [facility] Right: Chest CR BARD : PERIPHERAL VASCULAR [id number] 12/02/2023 [id number] / / [id number] Hanarostent Noncover 10dm 10cm - [id number] Implanted:Qty: 1 on 02/19/2023 by Tanya Morris MD at OR [facility] [employer] [id number] 12/31/2024 SHS-10-100 -180 / / [id number] documented as of this encounter Advance Directives * Full Code (Latest Code Status on File) Date Activated Date Inactivated Comments 12/04/2022 10:10 PM 12/08/2022 3:55 PM This order re flects the patients wishes and were consensually agreed upon. Question Answer Comments Discussion of Advance Directives occurred with: Patient Care Teams Painter Helper Spray Relationship Specialty Start Date End Date Kristine Kan DO [address] [place] [address] PCP - General Family Medicine 12/18/22 documented as of this encounter
--- OUTSIDE RECORDS SUMMARY | 2024-06-06 23:42 | External Medical Summary | Summary of Care ---
Author Name Unknown Organization [facility] Address [address] [place] [address] Phone [phone] Care Team Providers Care Family Preservation Officer Name Role Phone Kristine Kan Primary Care Provider [phone] Reason for Visit * Reason Onset Date Comments Advice 03/08/2024 Dr. Gross Encounter Details Date Type Department Care Team (Late st Contact Info) Description 03/08/2024 Telephone Hematology/Oncology [facility] [address] [place] [address] Services, Scheduling [address] [place] [address] Advice (Dr. Gross) Allergies Active Allergy Reactions [...] mcgIndications:Vitamin B 12 deficiency 1000 mcg IM [id number] 09/02/2023 08/03/2024 Active Fluorouracil (5-Fu) 4,475 mg [...] She asked for a call back at [phone] with instruction as soon as possible so they can advise the patient. Thank you. documented in this encounter Plan of Treatment Upcoming Encounters Date Type Department Care Team (Late st Contact Info) Description 03/08/2024 9:15 AM EDT Cardiac Studies Cardiac Studies, [facility] 132 [facility] [place] [address] 03/09/2024 12:15 PM EDT Immunization/Injecti on Hematology/Oncology Treatment, [place] [facility] [phone] Nurse, Med 4 [address] [place] [address] 03/14/2024 2:25 PM EDT Office Visit Hematology/Oncology [facility] [place] [address] [place] [phone] Hardik Gross MD [address] [place] [address] 03/15/2024 1:00 PM EDT Imaging Radiology [facility] 1st [facility] 132 [facility] [place] [address] 03/20/2024 10:10 AM EDT Laboratory Laboratory [facility] [place] [address] [place] [phone] Jessica, Lab [place] [address] [place] [address] 03/21/2024 1:00 PM EDT Hem/Onc Treatment Hematology/Oncology Treatment, [place] 200 [facility] [place] [phone] Jessica, Chair 5 Hem Onc [facility] [address] [place] [address] 03/21/2024 3:40 PM EDT Office Visit Family Practice [address], [place] [address] [place] [address] Kristine Kan, DO [address] [place], [place] [address] 03/28/2024 9:45 AM EDT Imaging Radiology [facility] 1st [facility], [place] 132 [facility] [place] [address] 01/02/2025 10:00 AM EDT Office Visit Nephrology, Kory Lopez [address] [place] [address] Lizandro Motta MD [address] [place] [address] Health Maintenance Due Date Last Done Comments COVID-19 Vaccine ( season) 2024 11/08/2023, 07/10/2022, 01/06/2022, Additional history exists Albumin/Creatinine Ratio 09/02/2024 09/02/2023, 10/2021 GFR 09/05/2024 03/06/2024, 02/02, 02/21/2024, Additional history exists CKD PHOS USE SMARTSET 80287 11/25/2024 11/25/2023, 0 12/05/2022 HbA1c 11/25/2024 11/25/2023, 11/04, 05/04/2022, Additional history exists CKD HGB USE SMARTSET 45734 03/06/202503/06, 03/06/2024, 02/29/2024, Additional history exists DXA [...] this encounter Medical Devices Implanted Type Area Electronics Recycler Device Identifier Shelf Expiration Date Model / Serial / Lot Lens Intraoc 21.5 - [id number] - [id number] Implanted:Qty: 1 on 07/27/2019 by Tristian Araujo MD at OR [facility] Left: Eye BAUSCH & LOMB 04/02/2024 [id number] / [id number] / [id number] Lens Intraoc 21.5 - [id number] - [id number] Implanted:Qty: 1 on 08/08/2019 by Tristian Araujo MD at OR [facility] Right: Eye BAUSCH & LOMB 04/02/2024 [id number] / [id number] / [id number] Stent Axios 98tra99nt - [id number] Implanted:Qty: 1 on 12/07/2022 by Tanya Morris MD at OR [facility] N/A: Abdomen [employer] : ENDOSCOPY [id number] 08/25/2023 [id number] / / [id number] Stent Bili Pigtail 7fr 100mm - [id number] Implanted:Qty: 1 on 12/07/2022 by Tanya Morris MD at OR [facility] N/A: Abdomen [employer] [id number] 08/03/2025 PBD-1033-0 710 / / [id number] Stent Bili Pigtail 7fr 100mm - [id number] Implanted:Qty: 1 on 12/07/2022 by Tanya Morris MD at OR [facility] N/A: Abdomen [employer] [id number] 08/03/2025 PBD-1033-0 710 / / 2YK Power Port 8fr Sngl Lumen Plas - [id number] Implanted:Qty: 1 on 12/29/2022 by Landon Hickman DO at OR [facility] Right: Chest CR BARD : PERIPHERAL VASCULAR [id number] 12/02/2023 [id number] / / [id number] Hanarostent Noncover 10dm 10cm - [id number] Implanted:Qty: 1 on 02/19/2023 by Tanya Morris MD at OR [facility] [employer] [id number] 12/31/2024 [facility]-10-100 -180 / / [id number] documented as of this encounter Advance Directives * Full Code (Latest Code Status on File) Date Activated Date Inactivated Comments 12/04/2022 10:10 PM 12/08/2022 3:55 PM This order re flects the patients wishes and were consensually agreed upon. Question Answer Comments Discussion of Advance Directives occurred with: Patient Care Teams Family Preservation Officer Relationship Specialty Start Date End Date Kristine Kan DO [address] [place] [address] PCP - General Family Medicine 12/18/22 documented as of this encounter
--- OUTSIDE RECORDS SUMMARY | 2024-06-06 23:42 | External Medical Summary | Summary of Care ---
Author Name Unknown Organization [facility] Address [address] [place] [address] Phone [phone] Care Team Providers Care Export Freight Specialist Name Role Phone ChrisblancaKristine schultz Primary Care Provider [phone] Reason for Visit * Reason Comments Chemotherapy FOLFOX C5,D1 being d elayed 1 week * Episode Based Medications (Routine) - Authorized Specialty Diagnoses / Procedures Referred By Contac t Referred To Contact Diagnoses Carcinoma of gallbladder (HCC) Encounter for antineoplastic chemotherapy Procedures AK LEUCOVORIN CALCIUM INJECTION AK PALONOSETRON HCL AK FLUOROURACIL INJECTION AK OXALIPLATIN Hardik Gross MD 200 [facility] [place] [address] Anc Hem/Onc [address] [address] Referral ID Status Reason Start Date Expiration Date V isits Requested Visits Authorized [id number] Authorized 12/14/2023 12/13/2024 999 999 Encounter Details Date Type Department Care Team (Latest Contact Info) Description 03/01/2024 11:00 AM EDT Hem/Onc Treatment Hematology/Oncolog y Treatment, [address] [address] Jessica, Chair 1 Hem Onc [address] [place] [address] Carcinoma of gallbladder (HCC)*; Encounter for antineoplastic [...] mcgIndications:Vitamin B 12 deficiency 1000 mcg IM [id number] 09/02/2023 08/03/2024 Active documented as of this [...] Sign Reading Time Taken Comments Blood Pressure 103/74 03/01/2024 11:48 AM EDT Pulse 80 03/01/2024 11:48 AM EDT Temperature 36.6 C (97.9 F) 03/01/2024 11:48 AM E DT Respiratory Rate 16 03/01/2024 11:48 AM EDT Oxygen Saturation 97% 03/01/2024 11:48 AM EDT Inhaled Oxygen Concentration - - Weight 72.1 kg (159 lb) 03/01/2024 11:48 AM EDT Height - - Body Mass Index 26.46 01/11/2024 2:35 PM EDT documented in this [...] Progress Notes * Jose Pineda RN - 03/01/2024 12:52 PM EDT Spoke with Dr. Gross regarding patient status: - weak/fatigued - dizziness and unable to ambulate alone - Hgb 8.2 - Had a fall recently to both knee's per - +2-+3 pitting edema noted in b/l lower feet, pt states this started 2 weeks ago. - Blood transfusion scheduled tomorrow Per Dr. Gross- will delay patient this week. Re-check labs on Wednesday with plan to do chemo on Wednesday if labs and patient status are ok. Pt VAD access flushed with NSS/Heparin per orders. Pt ambulated from treatment room in stable condition with . Goals: Pt will remain free from injury Possible barriers to meeting goals: see above Stability of the patient: Moderately unstable - medium risk of patient condition declining or worsening Summary regarding today's goals: Met: Pt remained free from injury. documented in this encounter Nursing Notes * Jose Pineda RN - 03/01/2024 11:51 AM EDT Chair 11. Pt states she is feeling tired/weak but states this is common for her. Had a light fall the other day and states Dr. Gross is aware, no harm came to patient. Is aware she is scheduled for blood transfusion tomorrow. After long discussion with patient and her regarding symptoms of tiredness/weakness, she still wishes to proceed with her infusion. Dr. Gross ok with proceeding and with blood transfusion (see note from yesterday). VAD accessed without issues, positive for blood return. Willtransfuse fluids/give pre-treatment per orders. Safety and Risk for Injury Patient will remain free from injury. Ensure appropriate safety devices are available. Provide and maintain safe environment. Chemotherapy/Immunotherapy agents: FOLFOX Consent for chemotherapy drug treatment complete, dated, and signed? yes, date - 12/14/23 Treatment lab parameters met? Yes Has treatment weight changed > than 10%? No Treatment preauthorized? Yes VITALS Filed Vitals: 03/01/24 1148 BP: 103/74 Pulse: 80 Resp: 16 Temp: 36.6 C (97.9 F) SpO2: 97% Weight: 72.1 kg (159 lb) Urine protein: N/A Patient education completed for treatment? Yes Blood transfusion consent signed and complete? Yes, new consent signed today 03/01/24 Return appointment scheduled? Yes Patient had provider [...] side effects during treatment. PRE-TREATMENT ASSESSMENT: NEURO: denies symptoms, confusion: mild confusion regarding dates, dizziness: recent soft fall but has been increasing fluid intake per around 60oz daily, and fatigue:chronic, moderate. CV/RESP: denies symptoms and peripheral edema: B/L feet +2 pitting edema noticed GI/: denies symptoms OTHER: denies any additional symptoms PAIN: 0 * Muriel Damon RN - 02/29/2024 10:44 AM EDT Hgb 8.2, creatinine 1.7. Per za Stone for treatment, can offer transfusion if patient feels sheneeds it. See TE. documented in this encounter Plan of Treatment Upcoming Encounters Date Type Department Care Team (Latest Contact Info) Description 03/07/2024 1:00 PM EDT Hem/Onc Treatment Hematology/Oncolog y Treatment, [place] [address] [place] [phone] Jessica, Chair 3 Hem Onc [address] [address] [place] [address] Carcinoma of gallbladder (HCC)*; Encounter for antineoplastic chemotherapy 03/08/2024 9:15 AM EDT Cardiac Studies Cardiac Studies, [facility] 132 [facility] [place] [address] 03/14/2024 2:25 PM EDT Office Visit Hematology/Oncolog y [facility] [place] [address] [place] [phone] Hardik Gross MD [address] [place] [address] 03/15/2024 1:00 PM EDT Imaging Radiology [facility] 1st Floor, [place] 132 [facility] [place] [address] 03/21/2024 3:40 PM EDT Office Visit Family Practice [address], [place] 293 [place] [address] Kristine Kan DO [address] [place], [place] [address] Health Maintenance Due Date Last Done Comments COVID-19 Vaccine ( season) 2024 11/08/2023, 07/10/2022, 01/06/2022, Additional history exists Albumin/Creatinine Ratio 09/02/2024 09/02/2023, 08/0 10/2021 GFR 09/05/2024 03/06/2024, 0505/2024, 02/21/2024, Additional history exists CKD PHOS USE SMARTSET 14831 11/25/2024 11/25/2023, 0 12/05/2022 HbA1c 11/25/2024 11/25/2023, 11/04, 05/04/2022, Additional history exists CKD HGB USE SMARTSET 55559 03/06/202503/06, 03/06/2024, 02/29/2024, Additional history exists DXA [...] this encounter Medical Devices Implanted Type Area Dice Manager Device Identifier Shelf Expiration Date Model / Serial / Lot Lens Intraoc 21.5 - [id number] - [id number] Implanted:Qty: 1 on 07/27/2019 by Tristian Araujo MD at OR [facility] Left: Eye BAUSCH & LOMB 04/02/2024 [id number] / [id number] / [id number] Lens Intraoc 21.5 - [id number] - [id number] Implanted:Qty: 1 on 08/08/2019 by Tristian Araujo MD at OR [facility] Right: Eye BAUSCH & LOMB 04/02/2024 [id number] / [id number] / [id number] Stent Axios [id number] - [id number] Implanted:Qty: 1 on 12/07/2022 by Tanya Morris MD at OR [facility] N/A: Abdomen [employer] : ENDOSCOPY [id number] 08/25/2023 [id number] / / [id number] Stent Bili Pigtail 7fr 100mm - [id number] Implanted:Qty: 1 on 12/07/2022 by Tanya Morris MD at OR [facility] N/A: Abdomen [employer] [id number] 08/03/2025 PBD-1033-0 710 / / [id number] Stent Bili Pigtail 7fr 100mm - [id number] Implanted:Qty: 1 on 12/07/2022 by Tanya Morris MD at OR [facility] N/A: Abdomen [employer] [id number] 08/03/2025 PBD-1033-0 710 / / 2YK Power Port 8fr Sngl Lumen Plas - [id number] Implanted:Qty: 1 on 12/29/2022 by Landon Hickman DO at OR [facility] Right: Chest CR BARD : PERIPHERAL VASCULAR [id number] 12/02/2023 [id number] / / [id number] Hanarostent Noncover 10dm 10cm - [id number] Implanted:Qty: 1 on 02/19/2023 by Tanya Morris MD at OR [facility] [employer] [id number] 12/31/2024 [facility]-10-100 -180 / / [id number] documented as of this encounter Visit Diagnoses [...] Intravenous, at 50 mL/hr, PRN, Starting on Wed03/01/24 at 0830, Until Wed03/01/24 at 1256 Start Infusion 03/01/2024 12:10 PM EDT 50 mL/hr hEParin 100 UNIT/ML Lock Flush inj 500 Units 500 Units (5 mL), IV Lock, PRN Other, IV Flush, Starting on Wed03/01/24 at 1144, Until Wed03/01/24 at 1256, For 24 hours, Do not flush if lock, PICC, or central line not in place; IV infusing or unable to flush. Given 03/01/2024 12:44 PM EDT 500 Units sodium chloride 0.9 % flush central line 10 mL 10 mL, IV Push, PRN Other, IV Flush, Starting on Wed03/01/24 at 1144, Until Wed03/01/24 at 1256, For 24 hours, Do not flush if lock, PICC, or central line not in place; IV infusing or unable to flush. Given 03/01/2024 12:43 PM EDT 10 mL documented in this encounter Advance Directives * Full Code (Latest Code Status on File) Date Activated Date Inactivated Comments 12/04/2022 10:10 PM 12/08/2022 3:55 PM This order re flects the patients wishes and were consensually agreed upon. Question Answer Comments Discussion of Advance Directives occurred with: Patient Care Teams Export Freight Specialist Relationship Specialty Start Date End Date Kristine Kan DO [address] [place] [address] PCP - General Family Medicine 12/18/22 documented as of this encounter
--- OUTSIDE RECORDS SUMMARY | 2024-06-06 23:42 | External Medical Summary | Summary of Care ---
Author Name Unknown Organization [facility] Address [address] [place] [address] Phone [phone] Care Team Providers Care Black Ash Burner Operator Name Role Phone Kristine Kan Primary Care Provider [phone] Reason for Visit * Reason Onset Date Comments [facility]: Screening 03/07/2024 Encounter Details Date Type Department Care Team (Late st Contact Info) Description 03/07/2024 Telephone [facility], [place] 132 [facility] [place] [address] Region, Nurse [place] [address] [address] [facility] [place] [address] [facility]: Screening Allergies Active Allergy Reactions Criticality Noted Date [...] mcgIndications:Vitamin B 12 deficiency 1000 mcg IM [id number] 09/02/2023 08/03/2024 Active Fluorouracil (5-Fu) 4,475 mg [...] encounter Miscellaneous Notes * Telephone Encounter - Karey Barkley LPN - 03/07/2024 10:07 AM EDT Anjelica Wiley was referred as a potential candidate for enrollment for [facility]. A review of this chart was completed and: Anjelica meets criteria for [facility]. Jump to Initiation Referring care team was notified via : Epic communication Karey Barkley LPN [facility] 03/07/2024,10:07 AM documented in this encounter Plan of Treatment Upcoming Encounters Date Type Department Care Team (Latest Contact Info) Description 03/07/2024 1:00 PM EDT Hem/Onc Treatment Hematology/Oncolog y Treatment, [place] [address] [place] [address] Jessica, Chair 3 Hem Onc Scenery [address] [place] [address] Carcinoma of gallbladder (HCC)*; Encounter for antineoplastic chemotherapy 03/08/2024 9:15 AM EDT Cardiac Studies Card[facility] Studies, [facility] [place] [address] 03/14/2024 2:25 PM EDT Office [facility] [address] [place], [place] [phone] Hardik Gross MD [address] [place] [address] 03/15/2024 1:00 PM EDT Imaging Radiology [facility] 1st [facility] 132 [facility] [place] [address] 03/21/2024 3:40 PM EDT Office Visit Family Practice [address], [place] 293 [place] [address] Kristine Kan DO 293 [place] [address] Health Maintenance Due Date Last Done Comments COVID-19 Vaccine ( season) 2024 11/08/2023, 07/10/2022, 01/06/2022, Additional history exists Albumin/Creatinine Ratio 09/02/2024 09/02/2023, 08/0 10/2021 GFR 09/05/2024 03/06/2024, 0505/2024, 02/21/2024, Additional history exists CKD PHOS USE SMARTSET 60623 11/25/2024 11/25/2023, 0 12/05/2022 HbA1c 11/25/2024 11/25/2023, 11/04, 05/04/2022, Additional history exists CKD HGB USE SMARTSET 46149 03/06/202503/06, 03/06/2024, 02/29/2024, Additional history exists DXA [...] this encounter Medical Devices Implanted Type Area Pin Chaser Device Identifier Shelf Expiration Date Model / Serial / Lot Lens Intraoc 21.5 - [id number] - [id number] Implanted:Qty: 1 on 07/27/2019 by Tristian Araujo MD at OR [facility] Left: Eye BAUSCH & LOMB 04/02/2024 [id number] / [id number] / [id number] Lens Intraoc 21.5 - [id number] - [id number] Implanted:Qty: 1 on 08/08/2019 by Tristian Araujo MD at OR [facility] Right: Eye BAUSCH & LOMB 04/02/2024 [id number] / [id number] / [id number] Stent Axios 05fzx06im - [id number] Implanted:Qty: 1 on 12/07/2022 by Tanya Morris MD at OR [facility] N/A: Abdomen [employer] : ENDOSCOPY [id number] 08/25/2023 [id number] / / [id number] Stent Bili Pigtail 7fr 100mm - [id number] Implanted:Qty: 1 on 12/07/2022 by Tanya Morris MD at OR [facility] N/A: Abdomen [employer] [id number] 08/03/2025 PBD-1033-0 710 / / 2YK Stent Bili Pigtail 7fr 100mm - [id number] Implanted:Qty: 1 on 12/07/2022 by Tanya Morris MD at OR [facility] N/A: Abdomen [employer] [id number] 08/03/2025 PBD-1033-0 710 / / 2YK Power Port 8fr Sngl Lumen Plas - [id number] Implanted:Qty: 1 on 12/29/2022 by Landon Hickman DO at OR [facility] Right: Chest CR BARD : PERIPHERAL VASCULAR [id number] 12/02/2023 [id number] / / [id number] Hanarostent Noncover 10dm 10cm - [id number] Implanted:Qty: 1 on 02/19/2023 by Tanya Morris MD at OR [facility] [employer] [id number] 12/31/2024 [facility]-10-100 -180 / / [id number] documented as of this encounter Advance Directives * Full Code (Latest Code Status on File) Date Activated Date Inactivated Comments 12/04/2022 10:10 PM 12/08/2022 3:55 PM This order re flects the patients wishes and were consensually agreed upon. Question Answer Comments Discussion of Advance Directives occurred with: Patient Care Teams Black Ash Burner Operator Relationship Specialty Start Date End Date Kristine Kan DO [address] [place] [place] [address] PCP - General Family Medicine 12/18/22 documented as of this encounter
--- OUTSIDE RECORDS SUMMARY | 2024-06-06 23:42 | External Medical Summary | Summary of Care ---
Author Name Unknown Organization [facility] Address [address] [place] [address] Phone [phone] Care Team Providers Care Rockboard Lather Name Role Phone Kristine Kan Primary Care Provider [phone] Encounter Details Date Type Department Care Team (Late st Contact Info) Description 03/07/2024 Orders Only Hematology/Oncology [facility] 200 [facility] [place] [address] Samantha Cohen CRNP [address] [place] [address] Allergies Active Allergy Reactions Criticality Noted Date [...] mcgIndications:Vitamin B 12 deficiency 1000 mcg IM [id number] 09/02/2023 08/03/2024 Active Fluorouracil (5-Fu) 4,475 mg [...] PM EDT Hem/Onc Treatment Hematology/Oncolog y Treatment, [place] [address] [place] [phone] Jessica, Chair 3 Hem Onc Scen[address] [place] [address] Carcinoma of gallbladder (HCC)*; Encounter for antineoplastic chemotherapy 03/08/2024 7:30 AM EDT Imaging Vascular Lab, [facility] 2nd Floor, [place] 132 [place] [address] 03/08/2024 9:15 AM EDT Cardiac Studies Cardiac Studies, [facility] [address] [place] [address] 03/14/2024 2:25 PM EDT Office Visit Hematology/Oncolog y [facility] [place] [address] [place] [address] Hardik Gross MD [address] [place] [address] 03/15/2024 1:00 PM EDT Imaging Radiology [address] 132 [place] [address] 03/21/2024 3:40 PM EDT Office Visit Family Practice [address], [place] [address] [place] [address] Kristine Kan DO 293 [facility], [place] [address] 03/28/2024 9:45 AM EDT Imaging Radiology [address] 132 [place] [address] 01/02/2025 10:00 AM EDT Office Visit Nephrology, [facility] 200 [facility] [place] [address] Lizandro Motta MD 200 [facility] [place] [address] Health Maintenance Due Date Last Done Comments COVID-19 Vaccine ( season) 2024 11/08/2023, 07/10/2022, 01/06/2022, Additional history exists Albumin/Creatinine Ratio 09/02/2024 09/02/2023, 08/0 10/2021 GFR 09/05/2024 03/06/2024, 02/02, 02/21/2024, Additional history exists CKD PHOS USE SMARTSET 52565 11/25/2024 11/25/2023, 0 12/05/2022 HbA1c 11/25/2024 11/25/2023, 11/04, 05/04/2022, Additional history exists CKD HGB USE SMARTSET 42674 03/06/202503/06, 03/06/2024, 02/29/2024, Additional history exists DXA [...] this encounter Medical Devices Implanted Type Area Antenna Specialist Device Identifier Shelf Expiration Date Model / Serial / Lot Lens Intraoc 21.5 - [id number] - [id number] Implanted:Qty: 1 on 07/27/2019 by Tristian Araujo MD at OR [facility] Left: Eye BAUSCH & LOMB 04/02/2024 [id number] / [id number] / [id number] Lens Intraoc 21.5 - [id number] - [id number] Implanted:Qty: 1 on 08/08/2019 by Tristian Araujo MD at OR [facility] Right: Eye BAUSCH & LOMB 04/02/2024 [id number] / [id number] / [id number] Stent Axios [id number] - [id number] Implanted:Qty: 1 on 12/07/2022 by Tanya Morris MD at OR [facility] N/A: Abdomen [employer] : ENDOSCOPY [id number] 08/25/2023 [id number] / / [id number] Stent Bili Pigtail 7fr 100mm - [id number] Implanted:Qty: 1 on 12/07/2022 by Tanya Morris MD at OR [facility] N/A: Abdomen [employer] [id number] 08/03/2025 PBD-1033-0 710 / / 2YK Stent Bili Pigtail 7fr 100mm - [id number] Implanted:Qty: 1 on 12/07/2022 by Tanya Morris MD at OR [facility] N/A: Abdomen [employer] [id number] 08/03/2025 PBD-1033-0 710 / / 2YK Power Port 8fr Sngl Lumen Plas - [id number] Implanted:Qty: 1 on 12/29/2022 by Landon Hickman DO at OR [facility] Right: Chest CR BARD : PERIPHERAL VASCULAR [id number] 12/02/2023 [id number] / / [id number] Hanarostent Noncover 10dm 10cm - [id number] Implanted:Qty: 1 on 02/19/2023 by Tanya Morris MD at OR [facility] [employer] [id number] 12/31/2024 [facility]-10-100 -180 / / [id number] documented as of this encounter Advance Directives * Full Code (Latest Code Status on File) Date Activated Date Inactivated Comments 12/04/2022 10:10 PM 12/08/2022 3:55 PM This order re flects the patients wishes and were consensually agreed upon. Question Answer Comments Discussion of Advance Directives occurred with: Patient Care Teams Rockboard Lather Relationship Specialty Start Date End Date Kristine Kan DO [address] [place] [address], [place] [address] PCP - General Family Medicine 12/18/22 documented as of this encounter
--- OUTSIDE RECORDS SUMMARY | 2024-06-06 23:42 | External Medical Summary | Summary of Care ---
Author Name Unknown Organization [facility] Address [address] [place] [address] Phone [phone] Care Team Providers Care Landscape Designer Name Role Phone Kristine Kan Primary Care Provider + [phone] Reason for Referral * Social Care (Within 10 days (routine)) - Authorized Specialty Diagnoses / Procedures Referred By Marcela johansen Referred To Contact Research Test Engine Evaluator Diagnoses Carcinoma of gallbladder (HCC) Invasive ductal carcinoma of breast, female (HCC) Wally العلي MD [address] [place] [id number] Referral ID Status Reason Start Date Expiration Date Visits Requested Visits Authorized [id number] Authorized Specialty Services Required 03/07/2024 999 999 Question Answer Referral Priority Within 10 days (routine) Where should this appointment be scheduled? [facility] Role Desktop Specialist Desktop Specialist Referral Reason Complex Oncology Comments Is patient being transitioned from [facility] to Complex Case Management? No Reason for Visit * Reason Onset Date Comments Appointment 03/07/2024 Encounter Details Date Type Department Care Team ([facility] Contact Info) Description 03/07/2024 Telephone [facility] [place] [address] [place] [address] [place] [address] Services, Scheduling [address] [place] [address] Appointment (//) Allergies Active Allergy Reactions Criticality [...] mcgIndications:Vitamin B 12 deficiency 1000 mcg IM [id number] 09/02/2023 08/03/2024 Active Fluorouracil (5-Fu) 4,475 mg [...] 30 Mcg, IM, 12 yrs and above ([employer] 07/10/2022 H1N1 2009 Influenza, IM 11/20/2009 Hepatitis [...] encounter Miscellaneous Notes * Addendum Note - Melonie Donnelly LPN - 03/07/2024 11:05 AM EDTAddended by: MELONIE DONNELLY on: 03/07/2024 11:05 AM Modules accepted: Orders * Telephone Encounter - Melonie Donnelly LPN - 03/07/2024 11:05 AM EDT [id number] order placed for OPCM * Telephone Encounter - Moe Paulson OSA - 03/07/2024 10:15 AM EDT [facility] Engagement Attempt Engagement: Engagement Attempt [...] months) Confirmation of Sub-Program Type (by care steamboat pilot): No data was found Handoff Information: Current care team notified via: Epic communication Current telemonitoring equipment: No data was found documented in this encounter Plan of Treatment Upcoming Encounters Date Type Department Care Team (Latest Contact Info) Description 03/07/2024 1:00 PM EDT Hem/Onc Treatment Hematology/Oncolog y Treatment, [place] [address] [place], [place] [phone] Jessica, Chair 3 Hem Onc Scen[place] [address] [place] [address] Carcinoma of gallbladder (HCC)*; Encounter for antineoplastic chemotherapy 03/08/2024 9:15 AM EDT Cardiac Studies Cardiac Studies, [address] [place] [address] 03/09/2024 1:15 PM EDT Imaging Radiology [facility] [address] [facility] [place] [address] 03/09/2024 2:00 PM EDT Imaging Radiology [address] 132 [facility] [place] [address] 03/14/2024 2:25 PM EDT Office [facility] [address] [place] [address] Hardik Gross MD [address] [place] [address] 03/15/2024 1:00 PM EDT Imaging Radiology [address] 132 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) Ordered: 03/07/2024 Health Maintenance Due Date Last Done Comments COVID-19 Vaccine ( season) 2024 11/08/2023, 07/10/2022, 01/06/2022, Additional history exists Albumin/Creatinine Ratio 09/02/2024 09/02/2023, 08/0 10/2021 GFR 09/05/2024 03/06/2024, 02/02, 02/21/2024, Additional history exists CKD PHOS USE SMARTSET 39264 11/25/2024 11/25/2023, 0 12/05/2022 HbA1c 11/25/2024 11/25/2023, 0201/2023, 05/04/2022, Additional history exists CKD HGB USE SMARTSET 50478 03/06/202503/06, 03/06/2024, 02/29/2024, Additional history exists DXA [...] encounter Medical Devices Implanted Type Area Director Service Device Identifier Shelf Expiration Date Model / Serial / Lot Lens Intraoc 21.5 - [id number] - [id number] Implanted:Qty: 1 on 07/27/2019 by Tristian Araujo MD at OR [facility] Left: Eye BAUSCH & LOMB 04/02/2024 [id number] / [id number] / [id number] Lens Intraoc 21.5 - [id number] - [id number] Implanted:Qty: 1 on 08/08/2019 by Tristian Araujo MD at OR [facility] Right: Eye BAUSCH & LOMB 04/02/2024 [id number] / [id number] / [id number] Stent Axios [id number] - [id number] Implanted:Qty: 1 on 12/07/2022 by Tanya Morris MD at OR [facility] N/A: Abdomen [employer] : ENDOSCOPY [id number] 08/25/2023 [id number] / / [id number] Stent Bili Pigtail 7fr 100mm - [id number] Implanted:Qty: 1 on 12/07/2022 by Tanya Morris MD at OR [facility] N/A: Abdomen [employer] [id number] 08/03/2025 PBD-1033-0 710 / / [id number] Stent Bili Pigtail 7fr 100mm - [id number] Implanted:Qty: 1 on 12/07/2022 by Tanya Morris MD at OR [facility] N/A: Abdomen [employer] [id number] 08/03/2025 PBD-1033-0 710 / / [id number] Power Port 8fr Sngl Lumen Plas - [id number] Implanted:Qty: 1 on 12/29/2022 by Landon Hickman DO at OR [facility] Right: Chest CR BARD : PERIPHERAL VASCULAR [id number] 12/02/2023 [id number] / / [id number] Hanarostent Noncover 10dm 10cm - [id number] Implanted:Qty: 1 on 02/19/2023 by Tanya Morris MD at OR [facility] [employer] [id number] 12/31/2024 SHS-10-100 -180 / / [id number] documented as of this encounter Visit Diagnoses Diagnosis Carcinoma of gallbladder (HCC)- Primary Malignant neoplasm of gallbladder Encounter for antineoplastic chemotherapy Carcinoma of gallbladder (HCC)- Primary Malignant neoplasm of gallbladder Invasive ductal carcinoma of breast, female (HCC) Malignant neoplasm of breast (female), unspecified site Screening mammogram for breast cancer documented in this encounter Advance Directives * Full Code (Latest Code Status on File) Date Activated Date Inactivated Comments 12/04/2022 10:10 PM 12/08/2022 3:55 PM This order re flects the patients wishes and were consensually agreed upon. Question Answer Comments Discussion of Advance Directives occurred with: Patient Care Teams Landscape Designer Relationship Specialty Start Date End Date Kristine Kan DO [address] [place] [address] PCP - General Family Medicine 12/18/22 documented as of this encounter
--- OUTSIDE RECORDS SUMMARY | 2024-06-06 23:42 | External Medical Summary | Summary of Care ---
Author Name Unknown Organization [facility] Address [address] [place] [address] Phone [phone] Care Team Providers Care Street Sweeper Name Role Phone Kristine Kan Primary Care Provider [phone] Reason for Visit * Reason Comments Chemotherapy FOLFOX C5,D1 * Episode Based Medications (Routine) - Authorized Specialty Diagnoses / Procedures Referred By Marcela johansen Referred To Contact Diagnoses Carcinoma of gallbladder (HCC) Encounter for antineoplastic chemotherapy Procedures AL LEUCOVORIN CALCIUM INJECTION AL PALONOSETRON HCL AL FLUOROURACIL INJECTION AL OXALIPLATIN Hardik Gross MD [address] [place] [address] [place] [address] Anc Hem/Onc [address] [address] Referral ID Status Reason Start Date Expiration Date V isits Requested Visits Authorized [id number] Authorized 12/14/2023 12/13/2024 999 999 Encounter Details Date Type Department Care Team (Latest Contact Info) Description 03/07/2024 1:00 PM EDT Hem/Onc Treatment Hematology/Oncolog y Treatment, [address] [address] Jessica, Chair [address] Hem On[address] [place] [address] Carcinoma of gallbladder (HCC)*; Encounter for antineoplastic [...] mcgIndications:Vitamin B 12 deficiency 1000 mcg IM [id number] 09/02/2023 08/03/2024 Active documented as of this [...] of this encounter Nursing Notes * Gabriela Patino, RN - 03/07/2024 3:02 PM EDT Safety [...] Team (Late st Contact Info) Description 03/08/2024 7:30 AM EDT Imaging Vascular Lab, [facility] [address] [place] [address] 03/08/2024 9:15 AM EDT Cardiac Studies Cardiac Studies, [address] [place] [address] 03/09/2024 12:15 PM EDT Immunization/Injecti on Hematology/Oncology Treatment, [place] [address] [place] [phone] Nurse, Med 4 [address] [facility] [place] [address] 03/14/2024 2:25 PM EDT Office Visit Hematology/Oncology [facility] [place] [address] [place] [phone] Hardik Gross MD [address] [place] [address] 03/15/2024 1:00 PM EDT Imaging Radiology [facility] 1st [facility] 132 [facility] [place] [address] 03/20/2024 10:10 AM EDT Laboratory Laboratory [facility] [place] [address] [place] [phone] [facility] [place] [address] [place] [address] 03/21/2024 1:00 PM EDT Hem/Onc Treatment Hematology/Oncology Treatment, [place] [address] [place], [place] [phone] Jessica, Chair 5 Hem Onc [facility] [address] [facility] [place] [address] 03/21/2024 3:40 PM EDT Office Visit Family Practice [address], [place] 293 [facility], [place] [address] Kristine Kan DO 293 [facility], [place] [address] 03/28/2024 9:45 AM EDT Imaging Radiology [address], [place] 132 [facility] [place] [address] 01/02/2025 10:00 AM EDT Office Visit Nephrology, [facility] [address] [place] [address] Lizandro Motta MD [address] [facility] [place] [address] Health Maintenance Due Date Last Done Comments COVID-19 Vaccine ( season) 2024 11/08/2023, 07/10/2022, 01/06/2022, Additional history exists Albumin/Creatinine Ratio 09/02/2024 09/02/2023, 08/0 10/2021 GFR 09/05/2024 03/06/2024, 02/02, 02/21/2024, Additional history exists CKD PHOS USE SMARTSET 76478 11/25/2024 11/25/2023, 0 12/05/2022 HbA1c 11/25/2024 11/25/2023, 11/04, 05/04/2022, Additional history exists CKD HGB USE SMARTSET 45692 03/06/202503/06, 03/06/2024, 02/29/2024, Additional history exists DXA [...] this encounter Medical Devices Implanted Type Area Studio Hand Device Identifier Shelf Expiration Date Model / Serial / Lot Lens Intraoc 21.5 - [id number] - [id number] Implanted:Qty: 1 on 07/27/2019 by Tristian Araujo MD at OR [facility] Left: Eye BAUSCH & LOMB 04/02/2024 [id number] / [id number] / [id number] Lens Intraoc 21.5 - [id number] - [id number] Implanted:Qty: 1 on 08/08/2019 by Tristian Aruajo MD at OR [facility] Right: Eye BAUSCH & LOMB 04/02/2024 [id number] / [id number] / [id number] Stent Axios [id number] - [id number] Implanted:Qty: 1 on 12/07/2022 by Tanya Morris MD at OR [facility] N/A: Abdomen [employer] : ENDOSCOPY [id number] 08/25/2023 [id number] / / [id number] Stent Bili Pigtail 7fr 100mm - [id number] Implanted:Qty: 1 on 12/07/2022 by Tanya Morris MD at OR [facility] N/A: Abdomen [employer] [id number] 08/03/2025 PBD-1033-0 710 / / [id number] Stent Bili Pigtail 7fr 100mm - [id number] Implanted:Qty: 1 on 12/07/2022 by Tanya Morris MD at OR [facility] N/A: Abdomen [employer] [id number] 08/03/2025 PBD-1033-0 710 / / 2YK Power Port 8fr Sngl Lumen Plas - [id number] Implanted:Qty: 1 on 12/29/2022 by Landon Hickman DO at OR [facility] Right: Chest CR BARD : PERIPHERAL VASCULAR [id number] 12/02/2023 [id number] / / [id number] Hanarostent Noncover 10dm 10cm - [id number] Implanted:Qty: 1 on 02/19/2023 by Tanya Morris MD at OR [facility] [employer] [id number] 12/31/2024 [facility]-10-100 -180 / / [id number] documented as of this encounter Visit Diagnoses [...] PRN, Starting on Wed03/07/24 at 0830, Until Discontinued Start Infusion 03/07/2024 1:25 PM EDT 50 mL/hr diphenhydrAMINE (Benadryl) inj 50 mg 50 mg, IV Push, ONCE PRN Other, Hypersensitivity Reaction, Starting on Wed03/07/24 at 1314, Until Wed03/08/24 at 1313, For 24 hours EPINEPHrine 1 MG/ML inj 0.3 mg 0.3 mg, Intramuscular, ONCE PRN Other, Hypersensitivity Reaction or Anaphylaxis, Starting on Wed03/07/24 at 1314, Until Wed03/08/24 at 1313, For 24 hours hEParin 100 UNIT/ML Lock Flush inj 500 Units 500 Units (5 mL), IV Lock, PRN Other, IV Flush, Starting on Wed03/07/24 at 1314, Until Wed03/08/24 at 1313, For 24 hours, Do not flush if lock, PICC, or central line not in place; IV infusing or unable to flush. Hydrocortisone Sod Suc (PF) (Solu-Cortef) inj 100 mg 100 mg, IV Push, ONCE PRN Other, Hypersensitivity Reaction, Starting on Wed03/07/24 at 1314, Until Wed03/08/24 at 1313, For 24 hours LORAzepam (Ativan) tab 0.5 mg 0.5 mg, Oral, ONCE PRN Anxiety, Nausea, Starting on Wed03/07/24 at 0830, Until Discontinued oxygen GAS Inhalation, OXYGEN, First dose on Wed03/07/24 at 1600, Until Discontinued, Device/Managed by: Low [...] Flush, Starting on Wed03/07/24 at 1314, Until Wed03/08/24 at 1313, For 24 hours, Do not flush if lock, PICC, or central line not in place; IV infusing or unable to flush. Given 03/07/2024 2:04 PM EDT 10 mL Inactive Administered Medications [...] Given 03/07/2024 1:26 PM EDT 8 mg documented in this encounter Advance Directives * Full Code (Latest Code Status on File) Date Activated Date Inactivated Comments 12/04/2022 10:10 PM 12/08/2022 3:55 PM This order re flects the patients wishes and were consensually agreed upon. Question Answer Comments Discussion of Advance Directives occurred with: Patient Care Teams Street Sweeper Relationship Specialty Start Date End Date Kristine Kan DO [address] [place] [address] PCP - General Family Medicine 12/18/22 documented as of this encounter
--- OUTSIDE RECORDS SUMMARY | 2024-06-06 23:42 | External Medical Summary | Summary of Care ---
Author Name Unknown Organization [facility] Address [address] [place] [address] Phone [phone] Care Team Providers Care Interchange Agent Name Role Phone Kristine Kan Primary Care Provider [phone] Encounter Details Date Type Department Care Team (Late st Contact Info) Description 03/07/2024 Orders Only Hematology/Oncology [facility] 200 [facility] [place] [address] Samantha Cohen CRNP [address] [place] [address] Allergies Active Allergy Reactions Criticality [...] mcgIndications:Vitamin B 12 deficiency 1000 mcg IM [id number] 09/02/2023 08/03/2024 Active Fluorouracil (5-Fu) 4,475 mg [...] PM EDT Hem/Onc Treatment Hematology/Oncolog y Treatment, [place] [address] [place] [phone] Jessica, Chair 3 Hem Onc Scen[address] [place] [address] Carcinoma of gallbladder (HCC)*; Encounter for antineoplastic chemotherapy 03/08/2024 9:15 AM EDT Cardiac Studies Cardiac Studies, [facility] [address] [facility] [facility] [place] [address] 03/14/2024 2:25 PM EDT Office Visit Hematology/Oncolog y [facility] Jessica [place] [address] [place] [address] Hardik Gross MD [address] [place] [address] 03/15/2024 1:00 PM EDT Imaging Radiology [facility] 1st [facility], [place] [address] [place] [address] 03/21/2024 3:40 PM EDT Office Visit Family Practice [address], [place] 293 [facility], [place] [phone] Kristine Kan DO 293 [facility] [address] Health Maintenance Due Date Last Done Comments COVID-19 Vaccine ( season) 2024 11/08/2023, 07/10/2022, 01/06/2022, Additional history exists Albumin/Creatinine Ratio 09/02/2024 09/02/2023, 10/2021 GFR 09/05/2024 03/06/2024, 02/02, 02/21/2024, Additional history exists CKD PHOS USE SMARTSET 80317 11/25/2024 11/25/2023, 0 12/05/2022 HbA1c 11/25/2024 11/25/2023, 11/04, 05/04/2022, Additional history exists CKD HGB USE SMARTSET 67849 03/06/202503/06, 03/06/2024, 02/29/2024, Additional history exists DXA [...] this encounter Medical Devices Implanted Type Area Bedspring Assembler Device Identifier Shelf Expiration Date Model / Serial / Lot Lens Intraoc 21.5 - [id number] - [id number] Implanted:Qty: 1 on 07/27/2019 by Tristian Araujo MD at OR [facility] Left: Eye BAUSCH & LOMB 04/02/2024 [id number] / [id number] / [id number] Lens Intraoc 21.5 - [id number] - [id number] Implanted:Qty: 1 on 08/08/2019 by Tristian Araujo MD at OR [facility] Right: Eye BAUSCH & LOMB 04/02/2024 [id number] / [id number] / [id number] Stent Axios [id number] - [id number] Implanted:Qty: 1 on 12/07/2022 by Tanya Morris MD at OR [facility] N/A: Abdomen [employer] : ENDOSCOPY [id number] 08/25/2023 [id number] / / [id number] Stent Bili Pigtail 7fr 100mm - [id number] Implanted:Qty: 1 on 12/07/2022 by Tanya Morris MD at OR [facility] N/A: Abdomen [employer] [id number] 08/03/2025 PBD-1033-0 710 / / 2YK Stent Bili Pigtail 7fr 100mm - [id number] Implanted:Qty: 1 on 12/07/2022 by Tanya Morris MD at OR [facility] N/A: Abdomen [employer] [id number] 08/03/2025 PBD-1033-0 710 / / 2YK Power Port 8fr Sngl Lumen Plas - [id number] Implanted:Qty: 1 on 12/29/2022 by Landon Hickman DO at OR [facility] Right: Chest CR BARD : PERIPHERAL VASCULAR [id number] 12/02/2023 [id number] / / [id number] Hanarostent Noncover 10dm 10cm - [id number] Implanted:Qty: 1 on 02/19/2023 by Tanya Morris MD at OR [facility] [employer] [id number] 12/31/2024 SHS-10-100 -180 / / [id number] documented as of this encounter Advance Directives * Full Code (Latest Code Status on File) Date Activated Date Inactivated Comments 12/04/2022 10:10 PM 12/08/2022 3:55 PM This order re flects the patients wishes and were consensually agreed upon. Question Answer Comments Discussion of Advance Directives occurred with: Patient Care Teams Interchange Agent Relationship Specialty Start Date End Date Kristine Kan DO [address] [place] [address] PCP - General Family Medicine 12/18/22 documented as of this encounter
--- OUTSIDE RECORDS SUMMARY | 2024-06-06 23:42 | External Medical Summary | Summary of Care ---
Author Name Unknown Organization [facility] Address [address] [place] [address] Phone [phone] Care Team Providers Care Lithographic Platemaker Name Role Phone ChrisblancaKristine schultz Primary Care Provider Reason for Visit * Reason Comments Chemotherapy FOLFOX C5,D1 being d elayed 1 week * Episode Based Medications (Routine) - Authorized Specialty Diagnoses / Procedures Referred By Contac t Referred To Contact Diagnoses Carcinoma of gallbladder (HCC) Encounter for antineoplastic chemotherapy Procedures LA LEUCOVORIN CALCIUM INJECTION LA PALONOSETRON HCL LA FLUOROURACIL INJECTION LA OXALIPLATIN Hardik Gross MD 200 [facility] [place] [address] Anc Hem/Onc [address] [address] Referral ID Status Reason Start Date Expiration Date V isits Requested Visits Authorized [id number] Authorized 12/14/2023 12/13/2024 999 999 Encounter Details Date Type Department Care Team (Latest Contact Info) Description 03/01/2024 11:00 AM EDT Hem/Onc Treatment Hematology/Oncolog y Treatment, [address] [address] Jessica, Chair 1 Hem On[address] [place] [address] Carcinoma of gallbladder (HCC)*; Encounter for antineoplastic [...] mcgIndications:Vitamin B 12 deficiency 1000 mcg IM [id number] 09/02/2023 08/03/2024 Active documented as of this [...] PM EDT Hem/Onc Treatment Hematology/Oncolog y Treatment, [place] [address] [place] [phone] Jessica, Chair 3 Hem Onc Scenery [address] [place] [address] Carcinoma of gallbladder (HCC)*; Encounter for antineoplastic chemotherapy 03/08/2024 9:15 AM EDT Cardiac Studies Cardiac Studies, [facility] 132 [facility] [place] [address] 03/14/2024 2:25 PM EDT Office Visit Hematology/Oncolog y [facility] Jessica [place] [address] [place] [phone] Hardik Gross MD [address] [place] [address] 03/15/2024 1:00 PM EDT Imaging Radiology [facility] 1st Floor, [place] 132 [facility] [place] [address] 03/21/2024 3:40 PM EDT Office Visit Family Practice [address], [place] 293 [facility] [place] [address] Kristine Kan DO 293 [facility], [place] [address] Health Maintenance Due Date Last Done Comments COVID-19 Vaccine ( season) 2024 11/08/2023, 07/10/2022, 01/06/2022, Additional history exists Albumin/Creatinine Ratio 09/02/2024 09/02/2023, 08/0 10/2021 GFR 09/05/2024 03/06/2024, 0505/2024, 02/21/2024, Additional history exists CKD PHOS USE SMARTSET 66577 11/25/2024 11/25/2023, 0 12/05/2022 HbA1c 11/25/2024 11/25/2023, 11/04, 05/04/2022, Additional history exists CKD HGB USE SMARTSET 28009 03/06/202503/06, 03/06/2024, 02/29/2024, Additional history exists DXA [...] this encounter Medical Devices Implanted Type Area It Professional Device Identifier Shelf Expiration Date Model / Serial / Lot Lens Intraoc 21.5 - [id number] - [id number] Implanted:Qty: 1 on 07/27/2019 by Tristian Araujo MD at OR [facility] Left: Eye BAUSCH & LOMB 04/02/2024 [id number] / [id number] / [id number] Lens Intraoc 21.5 - [id number] - [id number] Implanted:Qty: 1 on 08/08/2019 by Tristian Araujo MD at OR [facility] Right: Eye BAUSCH & LOMB 04/02/2024 [id number] / [id number] / [id number] Stent Axios [id number] - [id number] Implanted:Qty: 1 on 12/07/2022 by Tanya Morris MD at OR [facility] N/A: Abdomen [employer] : ENDOSCOPY [id number] 08/25/2023 [id number] / / [id number] Stent Bili Pigtail 7fr 100mm - [id number] Implanted:Qty: 1 on 12/07/2022 by Tanya Morris MD at OR [facility] N/A: Abdomen [employer] [id number] 08/03/2025 PBD-1033-0 710 / / [id number] Stent Bili Pigtail 7fr 100mm - [id number] Implanted:Qty: 1 on 12/07/2022 by Tanya Morris MD at OR [facility] N/A: Abdomen [employer] [id number] 08/03/2025 PBD-1033-0 710 / / 2YK Power Port 8fr Sngl Lumen Plas - [id number] Implanted:Qty: 1 on 12/29/2022 by Landon Hickman DO at OR [facility] Right: Chest CR BARD : PERIPHERAL VASCULAR [id number] 12/02/2023 [id number] / / [id number] Hanarostent Noncover 10dm 10cm - [id number] Implanted:Qty: 1 on 02/19/2023 by Tanya Morris MD at OR [facility] [employer] [id number] 12/31/2024 SHS-10-100 -180 / / [id number] documented as of this encounter Visit Diagnoses [...] Advance Directives occurred with: Patient Care Teams Lithographic Platemaker Relationship Specialty Start Date End Date Kristine Kan DO 293 [place] [address] PCP - General Family Medicine 12/18/22 documented as of this encounter
--- OUTSIDE RECORDS SUMMARY | 2024-06-06 23:43 | External Medical Summary | Summary of Care ---
Author Name Unknown Organization [facility] Address [address] [place] [address] Phone [phone] Care Team Providers Care Production Director Name Role Phone Kristine Kan Primary Care Provider [phone] Reason for Visit * Reason Onset Date Comments Appointment 03/03/2024 BRI Gross Encounter Details Date Type Department Care Team (Late st Contact Info) Description 03/03/2024 Telephone Hematology/Oncology [facility] [address] [place] [address] Services, Scheduling [address] [place] [address] Appointment (BRI Gross) Allergies Active Allergy Reactions Criticality Noted Date Comments Latex Rash 06/28/2018 From a dressing Sulfamethoxazole Edema face/lips/tongue High 023 Trimethoprim Edema face/lips/tongue High 12/03/2022 documented as of this encounter (statuses as of 03/03/2024) Medications Medication Sig Dispensed Refills Start Date [...] mcgIndications:Vitamin B 12 deficiency 1000 mcg IM [id number] 09/02/2023 08/03/2024 Active documented as of this encounter (statuses as of 03/03/2024) Active Problems Problem Noted Date Diagnosed Date [...] as of this encounter (statuses as of 03/03/2024) Resolved Problems Problem Noted Date Diagnosed Date [...] as of this encounter (statuses as of 03/03/2024) Immunizations Name Administration Dates Next Due COVID-19 [...] Telephone Encounter - Lucille Gaytan OSA - 03/03/2024 3:35 PM EDT Called pt Is scheduled for 03/08 at 915 at Pt is aware * Telephone Encounter - Anamaria Gutiérrez OSA - 03/03/2024 3:15 PM EDT We received a call from Anjelica. She is asking for some assistance with scheduling her Echo. She said that she would ideally like to go to [facility] either this Wednesday or wednesday. Please assist with scheduling and give Anjelica a call back at your earliest convenience. She can be reached at [phone]. Thank you! documented in this encounter Plan of Treatment Upcoming Encounters Date Type Department Care Team (Late st Contact Info) Description 03/06/2024 9:30 AM EDT Laboratory Laboratory [place] [address] [place] [phone] Jessica, Lab Scenery [address] [place], [place] [address] 03/07/2024 8:00 AM EDT Office Visit Hematology/Oncology [facility] [place] [address] [place] [phone] Samantha Cohen CRNP [address] [facility] [place] [address] 03/07/2024 1:00 PM EDT Hem/Onc Treatment Hematology/Oncology Treatment, [place] [address] [place], [place] [phone] Jessica, Chair 3 Hem Onc [facility] 200 [facility] [place] [address] 03/08/2024 9:15 AM EDT Cardiac Studies [facility], [facility] [place] [address] 03/14/2024 2:25 PM EDT Office Visit Hematology/Oncology [facility] [address] [place], [place] [phone] Hardik Gross MD [address] [place] [address] 03/15/2024 1:00 PM EDT Imaging Radiology [facility] 1st [facility] [address] [facility] [place] [address] 03/21/2024 3:40 PM EDT Office Visit Family Practice [address], [place] 293 [place] [phone] Kristine Kan DO 293 [facility], [place] [address] Health Maintenance Due Date Last Done Comments COVID-19 Vaccine (2022- season) 2024 11/08/2023, 07/10/2022, 01/06/2022, Additional history exists GFR 08/31/2024 02/29/2024, 02/02, 02/07/2024, Additional history exists Albumin/Creatinine Ratio 09/02/2024 09/02/2023, 08/0 10/2021 CKD PHOS USE SMARTSET 89345 11/25/2024 11/25/2023, 0 12/05/2022 HbA1c 11/25/2024 11/25/2023, 11/04, 05/04/2022, Additional history exists CKD HGB USE SMARTSET 96445 02/28/202502/28, 02/29/2024, 02/21/2024, Additional history exists DXA Scan 12/16/2028 12/16/2021, [...] this encounter Medical Devices Implanted Type Area Manager Planning Device Identifier Shelf Expiration Date Model / Serial / Lot Lens Intraoc 21.5 - [id number] - [id number] Implanted:Qty: 1 on 07/27/2019 by Tristian Araujo MD at OR [facility] Left: Eye BAUSCH & LOMB 04/02/2024 [id number] / [id number] / [id number] Lens Intraoc 21.5 - [id number] - [id number] Implanted:Qty: 1 on 08/08/2019 by Tristian Araujo MD at OR [facility] Right: Eye BAUSCH & LOMB 04/02/2024 [id number] / [id number] / [id number] Stent Axios 97wzi55an - [id number] Implanted:Qty: 1 on 12/07/2022 by Tanya Morris MD at OR [facility] N/A: Abdomen [employer] : ENDOSCOPY [id number] 08/25/2023 [id number] / / [id number] Stent Bili Pigtail 7fr 100mm - [id number] Implanted:Qty: 1 on 12/07/2022 by Tanya Morris MD at OR [facility] N/A: Abdomen [employer] [id number] 08/03/2025 PBD-1033-0 710 / / [id number] Stent Bili Pigtail 7fr 100mm - [id number] Implanted:Qty: 1 on 12/07/2022 by Tanya Morris MD at OR [facility] N/A: Abdomen [employer] [id number] 08/03/2025 PBD-1033-0 710 / / 2YK Power Port 8fr Sngl Lumen Plas - [id number] Implanted:Qty: 1 on 12/29/2022 by Landon Hickman DO at OR [facility] Right: Chest CR BARD : PERIPHERAL VASCULAR [id number] 12/02/2023 [id number] / / [id number] Hanarostent Noncover 10dm 10cm - [id number] Implanted:Qty: 1 on 02/19/2023 by Tanya Morris MD at OR [facility] [employer] [id number] 12/31/2024 SHS-10-100 -180 / / [id number] documented as of this encounter Advance Directives * Full Code (Latest Code Status on File) Date Activated Date Inactivated Comments 12/04/2022 10:10 PM 12/08/2022 3:55 PM This order re flects the patients wishes and were consensually agreed upon. Question Answer Comments Discussion of Advance Directives occurred with: Patient Care Teams Production Director Relationship Specialty Start Date End Date Kristien Kan DO [address] [place] [facility] [place] [address] PCP - General Family Medicine 12/18/22 documented as of this encounter
--- OUTSIDE RECORDS SUMMARY | 2024-06-06 23:43 | External Medical Summary | Summary of Care ---
Author Name Unknown Organization [facility] Address [address] [place] [address] Phone [phone] Care Team Providers Care Consumer Marketing Manager Name Role Phone Kristine Kan Primary Care Provider [phone] Reason for Visit * Reason Comments Outpatient Testing Encounter Details Date Type Department Care Team (Late st Contact Info) Description 03/06/2024 9:30 AM EDT Laboratory Laboratory [facility] [address] [place] [phone] [facility] Lab [facility] 200 [place] [address] Carcinoma of gallbladder (HCC) Allergies Active Allergy Reactions Criticality Noted Date Comments Latex Rash 06/28/2018 From a dressing Sulfamethoxazole Edema face/lips/tongue High 023 Trimethoprim Edema face/lips/tongue High 12/03/2022 documented as of this encounter (statuses as of 03/06/2024) Medications Medication Sig Dispensed Refills Start Date [...] mcgIndications:Vitamin B 12 deficiency 1000 mcg IM [id number] 09/02/2023 08/03/2024 Active documented as of this encounter (statuses as of 03/06/2024) Active Problems Problem Noted Date Diagnosed Date [...] as of this encounter (statuses as of 03/06/2024) Resolved Problems Problem Noted Date Diagnosed Date [...] as of this encounter (statuses as of 03/06/2024) Immunizations Name Administration Dates Next Due COVID-19 [...] 03/07/2024 8:00 AM EDT Office Visit Hematology/Oncology [place] [address] [place] [phone] Samantha Cohen CRNP 400 [facility] [place] [address] 03/07/2024 1:00 PM EDT Hem/Onc Treatment Hematology/Oncology Treatment, [place] [address] [facility] [place] [address] Jessica, Chair 3 Hem Onc [place] [address] [place] [address] 03/08/2024 9:15 AM EDT Cardiac Studies Cardiac Studies, [facility] 132 [facility] [place] [address] 03/14/2024 2:25 PM EDT Office Visit Hematology/Oncology [facility] [address] [place], [place] [address] Hardik Gross MD [address] [place] [address] 03/15/2024 1:00 PM EDT Imaging Radiology [facility] 1st [facility], [place] [address] [place] [address] 03/21/2024 3:40 PM EDT Office Visit Family Practice [address], [place] [address] [place] [address] Kristine Kan DO 293 [facility], [place] [address] Pending Results Name Type Priority Associated Diagnoses Date /Time COMPREHENSIVE METABOLIC PANEL Lab STAT Carcinoma of gallbladder (HCC) 03/06/2024 9:26 AM EDT MAGNESIUM Lab STAT Carcinoma of gallbladder (HCC) 03/06/2024 9:26 AM EDT CBC WITH WBC DIFFERENTIAL Lab STAT Carcinoma of gallbladder (HCC) 03/06/2024 9:26 AM EDT CBC Lab STAT Carcinoma of gallbladder (HCC) 03/06/2024 9:26 AM EDT DIFFERENTIAL, AUTOMATED Lab STAT Carcinoma of gallbladder (HCC) 03/06/2024 9:26 AM EDT Health Maintenance Due Date Last Done Comments COVID-19 Vaccine ( season) 2024 11/08/2023, 07/10/2022, 01/06/2022, Additional history exists GFR 08/31/2024 02/29/2024, 02/02, 02/07/2024, Additional history exists Albumin/Creatinine Ratio 09/02/2024 09/02/2023, 08/0 10/2021 CKD PHOS USE SMARTSET 67940 11/25/2024 11/25/2023, 0 12/05/2022 HbA1c 11/25/2024 11/25/2023, 11/04, 05/04/2022, Additional history exists CKD HGB USE SMARTSET 27600 02/28/202502/28, 02/29/2024, 02/21/2024, Additional history exists DXA [...] this encounter Medical Devices Implanted Type Area Blister Packaging Machine Operator Device Identifier Shelf Expiration Date Model / Serial / Lot Lens Intraoc 21.5 - [id number] - [id number] Implanted:Qty: 1 on 07/27/2019 by Tristian Araujo MD at OR [facility] Left: Eye BAUSCH & LOMB 04/02/2024 [id number] / [id number] / [id number] Lens Intraoc 21.5 - [id number] - [id number] Implanted:Qty: 1 on 08/08/2019 by Tristian Araujo MD at OR [facility] Right: Eye BAUSCH & LOMB 04/02/2024 [id number] / [id number] / [id number] Stent Axios 42zed35et - [id number] Implanted:Qty: 1 on 12/07/2022 by Tanya Morris MD at OR [facility] N/A: Abdomen [employer] : ENDOSCOPY [id number] 08/25/2023 [id number] / / [id number] Stent Bili Pigtail 7fr 100mm - [id number] Implanted:Qty: 1 on 12/07/2022 by Tanya Morris MD at OR [facility] N/A: Abdomen [employer] [id number] 08/03/2025 PBD-1033-0 710 / / 2YK Stent Bili Pigtail 7fr 100mm - [id number] Implanted:Qty: 1 on 12/07/2022 by Tanya Morris MD at OR [facility] N/A: Abdomen [employer] [id number] 08/03/2025 PBD-1033-0 710 / / 2YK Power Port 8fr Sngl Lumen Plas - [id number] Implanted:Qty: 1 on 12/29/2022 by Landon Hickman DO at OR [facility] Right: Chest CR BARD : PERIPHERAL VASCULAR [id number] 12/02/2023 [id number] / / [id number] Hanarostent Noncover 10dm 10cm - [id number] Implanted:Qty: 1 on 02/19/2023 by Tanya Morris MD at OR [facility] [employer] [id number] 12/31/2024 SHS-10-100 -180 / / [id number] documented as of this encounter Visit Diagnoses Diagnosis Carcinoma of gallbladder (HCC) Malignant neoplasm of gallbladder Screening mammogram for breast cancer documented in this encounter Advance Directives * Full Code (Latest Code Status on File) Date Activated Date Inactivated Comments 12/04/2022 10:10 PM 12/08/2022 3:55 PM This order re flects the patients wishes and were consensually agreed upon. Question Answer Comments Discussion of Advance Directives occurred with: Patient Care Teams Consumer Marketing Manager Relationship Specialty Start Date End Date Kristine Kan DO [address] [place] [address] PCP - General Family Medicine 12/18/22 documented as of this encounter
--- OUTSIDE RECORDS SUMMARY | 2024-06-06 23:43 | External Medical Summary | Summary of Care ---
Author Name Unknown Organization [facility] Address [address] [place] [address] Phone [phone] Care Team Providers Care Manufacturing Plant Controller Name Role Phone Kristine Kan Primary Care Provider Encounter Details Date Type Department Care Team (Late st Contact Info) Description 03/02/2024 Telephone Hematology/Oncology [facility] Jessica [place] [address] [place] [address] Hardik Gross MD [address] [place] [address] Allergies Active Allergy Reactions Criticality Noted Date Comments Latex Rash 06/28/2018 From a dressing Sulfamethoxazole Edema face/lips/tongue High 023 Trimethoprim Edema face/lips/tongue High 12/03/2022 documented as of this encounter (statuses as of 03/02/2024) Medications Medication Sig Dispensed Refills Start Date [...] mcgIndications:Vitamin B 12 deficiency 1000 mcg IM [id number] 09/02/2023 08/03/2024 Active Fluorouracil (5-Fu) 4,475 mg in NSS 138 mL infusion 4475 mg IV CONTINUOUS 02/29/2024 03/02/2024 Ended documented as of this encounter (statuses as of 03/02/2024) Active Problems Problem Noted Date Diagnosed Date [...] as of this encounter (statuses as of 03/02/2024) Resolved Problems Problem Noted Date Diagnosed Date [...] as of this encounter (statuses as of 03/02/2024) Immunizations Name Administration Dates Next Due COVID-19 [...] Telephone Encounter - Jose Pineda RN - 03/02/2024 12:36 PM EDT Tried calling patient to schedule office visit prior to her infusion on Wednesday. Pt was due for blood transfusion today, will call again later today/tomorrow to schedule. documented in this encounter Plan of Treatment Upcoming Encounters Date Type Department Care Team (Late st Contact Info) Description 03/06/2024 9:30 AM EDT Laboratory [place] [address] [phone] [place] [address] 03/07/2024 8:00 AM EDT Office Visit Hematology/[place] [address] [phone] Samantha Choen, KRISTA [address] [place] [address] 03/07/2024 1:00 PM EDT Hem/Onc Treatment Hematology/Oncology Treatment, [place] [address] [place], [place] [phone] Park, Chair 3 Hem Onc [place] [address] [place] [address] 03/14/2024 2:25 PM EDT Office Visit Hematology/Oncology [facility] [address] [place] [phone] Hardik Gross MD [address] [place] [address] 03/15/2024 1:00 PM EDT Imaging Radiology [facility] 1st [facility] 132 [facility] [place] [address] 03/21/2024 3:40 PM EDT Office Visit Family Practice [address], [place] 293 [facility], [place] [phone] Kristine Kan DO 293 [facility], [place] [address] Health Maintenance Due Date Last Done Comments COVID-19 Vaccine ( season) 2024 11/08/2023, 07/10/2022, 01/06/2022, Additional history exists GFR 08/31/2024 02/29/2024, 02/02, 02/07/2024, Additional history exists Albumin/Creatinine Ratio 09/02/2024 09/02/2023, 0810/2021 CKD PHOS USE SMARTSET 94839 11/25/2024 11/25/2023, 0 12/05/2022 HbA1c 11/25/2024 11/25/2023, 11/04, 05/04/2022, Additional history exists CKD HGB USE SMARTSET 74879 02/28/202502/28, 02/29/2024, 02/21/2024, Additional history exists DXA [...] this encounter Medical Devices Implanted Type Area Water Plant Maintenance Mechanic Device Identifier Shelf Expiration Date Model / Serial / Lot Lens Intraoc 21.5 - [id number] - [id number] Implanted:Qty: 1 on 07/27/2019 by Tristian Araujo MD at OR [facility] Left: Eye BAUSCH & LOMB 04/02/2024 [id number] / [id number] / [id number] Lens Intraoc 21.5 - [id number] - [id number] Implanted:Qty: 1 on 08/08/2019 by Tristian Araujo MD at OR [facility] Right: Eye BAUSCH & LOMB 04/02/2024 [id number] / [id number] / [id number] Stent Axios [id number] - [id number] Implanted:Qty: 1 on 12/07/2022 by Tanya Morris MD at OR [facility] N/A: Abdomen [employer] : ENDOSCOPY [id number] 08/25/2023 [id number] / / [id number] Stent Bili Pigtail 7fr 100mm - [id number] Implanted:Qty: 1 on 12/07/2022 by Tanya Morris MD at OR [facility] N/A: Abdomen [employer] [id number] 08/03/2025 PBD-1033-0 710 / / 2YK Stent Bili Pigtail 7fr 100mm - [id number] Implanted:Qty: 1 on 12/07/2022 by Tanya Morris MD at OR [facility] N/A: Abdomen [employer] [id number] 08/03/2025 PBD-1033-0 710 / / 2YK Power Port 8fr Sngl Lumen Plas - [id number] Implanted:Qty: 1 on 12/29/2022 by Landon Hickman DO at OR [facility] Right: Chest CR BARD : PERIPHERAL VASCULAR [id number] 12/02/2023 [id number] / / [id number] Hanarostent Noncover 10dm 10cm - [id number] Implanted:Qty: 1 on 02/19/2023 by Tanya Morris MD at OR [facility] [employer] [id number] 12/31/2024 [facility]-10-100 -180 / / [id number] documented as of this encounter Advance Directives * Full Code (Latest Code Status on File) Date Activated Date Inactivated Comments 12/04/2022 10:10 PM 12/08/2022 3:55 PM This order re flects the patients wishes and were consensually agreed upon. Question Answer Comments Discussion of Advance Directives occurred with: Patient Care Teams Manufacturing Plant Controller Relationship Specialty Start Date End Date Kristine Kan DO [address] [place] [place] [address] PCP - General Family Medicine 12/18/22 documented as of this encounter
--- OUTSIDE RECORDS SUMMARY | 2024-06-06 23:43 | External Medical Summary ---
Author Name Unknown Address Unknown Organization K09:[facility] [address] [place] [address] Laboratory Report Ordering Provider Test Date Status TASHA MANN 03/06/2024 09:26:46 Final Observation Date Value Abnormality Reference (Units ) Status BUN 03/06/2024 09:26:46 27 Above high normal 6-20 (mg/dL) Final Creatinine 03/06/2024 09:26:46 1.6 Above high normal 0.5-1.0 (mg/dL) Final Glomerular filtration rate/1.73 sq M.predicted [Volume Rate/Area] in Serum, Plasma or Blood by Creatinine-based formula (CKD-EPI) 03/06/2024 09:26:46 34 Below low normal >=60 (mL/min) Final eGFR is calculated based on the CKD-EPI 2020 equation Sodium 03/06/2024 09:26:46 137 135-146 (m mol/L) Final Potassium 03/06/2024 09:26:46 4.2 3.5-5.1 (m mol/L) Final Cl 03/06/2024 09:26:46 104 98-107 (mm ol/L) Final CO2 03/06/2024 09:26:46 21 Below low normal 22- 32 (mmol/L) Final Anion gap 03/06/2024 09:26:46 12 7-15 (mmol /L) Final Glucose 03/06/2024 09:26:46 131 Above high normal 70 -120 (mg/dL) Final Albumin 03/06/2024 09:26:46 3.6 Below low normal 3.8 -5.0 (g/dL) Final AST (Aspartate aminotransferase) 03/06/2024 09:26:46 14 10-35 (U/L) Fin al Alk Phos 03/06/2024 09:26:46 62 35-130 (U/ L) Final Bilirubin, Total 03/06/2024 09:26:46 0.3 <=1 .2 (mg/dL) Final Calcium 03/06/2024 09:26:46 9.4 8.4-10.2 ( mg/dL) Final Protein 03/06/2024 09:26:46 6.2 6.0-8.3 (g /dL) Final ALT (Alanine aminotransferase) 03/06/2024 09:26:46 9 Below low normal 10-35 (U/L) Final Performing Location [facility] [place] [address]
--- OUTSIDE RECORDS SUMMARY | 2024-06-06 23:43 | External Medical Summary | Summary of Care ---
Author Name Unknown Organization [facility] Address [address] [place] [address] Phone [phone] Care Team Providers Care Director Biologics Name Role Phone Kristine Kan Primary Care Provider [phone] Reason for Visit * Reason Onset Date Comments Advice 03/02/2024 Encounter Details Date Type Department Care Team (Late st Contact Info) Description 03/02/2024 Telephone Hematology/Oncology [facility] [address] [place] [phone] Hardik Gross MD [address] [place] [address] Advice Allergies Active Allergy Reactions Criticality Noted [...] mcgIndications:Vitamin B 12 deficiency 1000 mcg IM [id number] 09/02/2023 08/03/2024 Active Fluorouracil (5-Fu) 4,475 mg [...] Telephone Encounter - Lucille Gaytan OSA - 03/06/2024 8:08 AM EDT 03/08/2024 Status: Vince Time: 9:15 AM Length: 60 Visit Type: ECHOCARDIOGRAM [[id number]] Reg Status: Verified Copay: $0.00 * Telephone Encounter - Lucille Roberts OSA - 03/02/2024 3:11 PM EDT Unable to reach cardiology Faxed order to [facility] Confirmation fax successful Will follow up with [facility] * Telephone Encounter - Carla Damon RN - 03/02/2024 2:[address] Gross: "Elevated BNP, NT Pro. Requested echocardiogram" Called patient. No answer on home number, mailbox full so cannot leave message. Called mobile number, spoke to patient. She is agreeable to echo. Scheduling: please follow up with patient to schedule echo- this should be done soon (within a week), patients preference is but please check at [facility] if unable to get appt at quickly. Please call patients cell phone with appt. Thanks! * Addendum Note - Carla Damon RN - 03/02/2024 12:34 PM EDTAddended by: CARLA DAMON on: 03/02/2024 12:34 PM Modules accepted: Orders * Telephone Encounter - Carla Damon RN - 03/02/2024 12:[address] Gross's routing comment, added BNP. Was able to add this to lab work from 02/29/24. * Telephone Encounter - Jose Pineda RN - 03/02/2024 8:13 AM EDT Pt seen by yesterday in the treatment room. Decision to hold patients treatment this week was made as her hgb is 8.2 (she will be receiving blood transfusion at [facility] today) and b/l feet have+2-+3 pitting edema. BP 103 systolic, pt reports dizziness with standing. Dr. Reinier ulloa. We held patients treatment yesterday and Dr. Gross advised her to hold her Atenolol d/t ongoing hypotension/syncope. documented in this encounter Plan of Treatment Upcoming Encounters Date Type Department Care Team (Late st Contact Info) Description 03/06/2024 9:30 AM EDT Laboratory Laboratory [facility] [place] [address] [place] [phone] Jessica, Lab Scene [address] [facility] [place] [address] 03/07/2024 8:00 AM EDT Office Visit Hematology/Oncology [facility] [place] [address] [place] [address] Samantha Cohen CRNP [address] [place] [address] [place] [address] 03/07/2024 1:00 PM EDT Hem/Onc Treatment Hematology/Oncology Treatment, [place] [address] [place] [phone] Jessica, Chair [address] [facility] [address] [place] [address] 03/08/2024 9:15 AM EDT Cardiac Studies Cardiac Studies, [facility] [address] [facility] [place] [address] 03/14/2024 2:25 PM EDT Office Visit Hematology/Oncology [facility] [address] [place] [phone] Hardik Gross MD [address] [place] [address] 03/15/2024 1:00 PM EDT Imaging [facility] [address] [facility] [place] [address] 03/21/2024 3:40 PM EDT Office Visit Family Practice [address], [place] 293 [place] [address] Kristine Kan DO 293 [place] [address] Health Maintenance Due Date Last Done Comments COVID-19 Vaccine ( season) 2024 11/08/2023, 07/10/2022, 01/06/2022, Additional history exists GFR 08/31/2024 02/29/2024, 02/02, 02/07/2024, Additional history exists Albumin/Creatinine Ratio 09/02/2024 09/02/2023, 0810/2021 CKD PHOS USE SMARTSET 75519 11/25/2024 11/25/2023, 0 12/05/2022 HbA1c 11/25/2024 11/25/2023, 11/04, 05/04/2022, Additional history exists CKD HGB USE SMARTSET 15270 02/28/202502/28, 02/29/2024, 02/21/2024, Additional history exists DXA [...] this encounter Medical Devices Implanted Type Area Lot Attendant Device Identifier Shelf Expiration Date Model / Serial / Lot Lens Intraoc 21.5 - [id number] - [id number] Implanted:Qty: 1 on 07/27/2019 by Tristian Araujo MD at OR [facility] Left: Eye BAUSCH & LOMB 04/02/2024 [id number] / [id number] / [id number] Lens Intraoc 21.5 - [id number] - [id number] Implanted:Qty: 1 on 08/08/2019 by Tristian Araujo MD at OR [facility] Right: Eye BAUSCH & LOMB 04/02/2024 [id number] / [id number] / [id number] Stent Axios [id number] - [id number] Implanted:Qty: 1 on 12/07/2022 by Tanya Morris MD at OR [facility] N/A: Abdomen [employer] : ENDOSCOPY [id number] 08/25/2023 [id number] / / [id number] Stent Bili Pigtail 7fr 100mm - [id number] Implanted:Qty: 1 on 12/07/2022 by Tanya Morris MD at OR [facility] N/A: Abdomen [employer] [id number] 08/03/2025 PBD-1033-0 710 / / [id number] Stent Bili Pigtail 7fr 100mm - [id number] Implanted:Qty: 1 on 12/07/2022 by Tanya Morrsi MD at OR [facility] N/A: Abdomen [employer] [id number] 08/03/2025 PBD-1033-0 710 / / 2YK Power Port 8fr Sngl Lumen Plas - [id number] Implanted:Qty: 1 on 12/29/2022 by Landon Hickman DO at OR [facility] Right: Chest CR BARD : PERIPHERAL VASCULAR [id number] 12/02/2023 [id number] / / [id number] Hanarostent Noncover 10dm 10cm - [id number] Implanted:Qty: 1 on 02/19/2023 by Tanya Morris MD at OR [facility] [employer] [id number] 12/31/2024 SHS-10-100 -180 / / [id number] documented as of this encounter Results * (ABNORMAL) BNP, NT-PRO (02/29/2024 9:14 AM EDT) BNP, NT-Pro 1,088(H) <300 pg/mL 03/02/2024 1:21 PM EDT [facility] Blood Venous blood specimen / Unknown Venipuncture / Unknown 02/29/2024 9:14 AM EDT 02/29/2024 9:14 AM EDT Narrative [facility] - 03/02/2024 1:21 PM EDT Exclude Heart Failure: <300 pg/mL Diagnose Heart Failure: Age <50 yr: >450 pg/mL 50-75 yr: >900 pg/mL >75 yr: >1800 pg/mL GFR is 30-59 mL/min: >1200 pg/mL or Age-adjusted values GFR <30 mL/min: do not use, not reliable Prognostic threshold: 1000 pg/mL Hardik Gross MD LAB BLOOD ORDERA BLES Performing Organization Address City/State/[facility] Co de Phone Number [facility] [address] [place] [address] documented in this encounter Visit Diagnoses Diagnosis [...] Directives occurred with: Patient Care Teams Director Biologics Relationship Specialty Start Date End Date Kristine Kan DO [address] [place] [address] PCP - General Family Medicine 12/18/22 documented as of this encounter
--- OUTSIDE RECORDS SUMMARY | 2024-06-06 23:43 | External Medical Summary | Summary of Care ---
Author Name Unknown Organization [facility] Address [address] [place] [address] Phone [phone] Care Team Providers Care Private Equity Analyst Name Role Phone Kristine Kan Primary Care Provider [phone] Reason for Visit * Reason Onset Date Comments Advice 03/02/2024 Encounter Details Date Type Department Care Team (Late st Contact Info) Description 03/02/2024 Telephone Hematology/Oncology [facility] 200 [place] [address] Hardik Gross MD 200 [place] [address] Advice Allergies Active Allergy Reactions Criticality Noted [...] mcgIndications:Vitamin B 12 deficiency 1000 mcg IM [id number] 09/02/2023 08/03/2024 Active Fluorouracil (5-Fu) 4,475 mg [...] patients preference is but please check at [facility] if unable to get appt at quickly. Please call patients cell phone with appt. Thanks! * Addendum Note - Carla Damon RN - 03/02/2024 12:34 PM EDTAddended by: CARAL DAMON on: 03/02/2024 12:34 PM Modules accepted: [...] (she will be receiving blood transfusion at [facility] today) and b/l feet have+2-+3 pitting edema. BP 103 systolic, pt reports dizziness with standing. Dr. Reinier ulloa. We held patients treatment yesterday and Dr. Gross advised her to hold her Atenolol d/t ongoing hypotension/syncope. documented in this encounter Plan of Treatment Upcoming Encounters Date Type Department Care Team (Late st Contact Info) Description 03/06/2024 9:30 AM EDT Laboratory Laboratory [facility] Jessica [place] [address] [place] [phone] Lc Lopez [facility] [address] [place] [address] 03/07/2024 8:00 AM EDT Office Visit Hematology/Oncology [facility] [address] [place] [phone] Samantha Cohen CRNP [address] [facility] [place] [address] 03/07/2024 1:00 PM EDT Hem/Onc Treatment Hematology/Oncology Treatment, [place] [address] [place] [address] Jessica, Chair 3 Hem Onc [address] [place], [place] [address] 03/14/2024 2:25 PM EDT Office Visit Hematology/Oncology [facility] [place] [address] [place] [phone] Hardik Gross MD [address] [place], [place] [address] 03/15/2024 1:00 PM EDT Imaging Radiology [address], [place] [address] [facility] [place] [address] 03/21/2024 3:40 PM EDT Office Visit Family Practice [address], [place] 293 [place] [address] Kristine Kan DO 293 [facility], [place] [address] Health Maintenance Due Date Last Done Comments COVID-19 Vaccine ( season) 2024 11/08/2023, 07/10/2022, 01/06/2022, Additional history exists GFR 08/31/2024 02/29/2024, 02/02, 02/07/2024, Additional history exists Albumin/Creatinine Ratio 09/02/2024 09/02/2023, 0810/2021 CKD PHOS USE SMARTSET 45771 11/25/2024 11/25/2023, 0 12/05/2022 HbA1c 11/25/2024 11/25/2023, 11/04, 05/04/2022, Additional history exists CKD HGB USE SMARTSET 96410 02/28/202502/28, 02/29/2024, 02/21/2024, Additional history exists DXA [...] this encounter Medical Devices Implanted Type Area Psychological Aide Device Identifier Shelf Expiration Date Model / Serial / Lot Lens Intraoc 21.5 - [id number] - [id number] Implanted:Qty: 1 on 07/27/2019 by Tristian Araujo MD at OR [facility] Left: Eye BAUSCH & LOMB 04/02/2024 [id number] / [id number] / [id number] Lens Intraoc 21.5 - [id number] - [id number] Implanted:Qty: 1 on 08/08/2019 by Tristian Araujo MD at OR [facility] Right: Eye BAUSCH & LOMB 04/02/2024 [id number] / [id number] / [id number] Stent Axios [id number] - [id number] Implanted:Qty: 1 on 12/07/2022 by Tanya Morris MD at OR [facility] N/A: Abdomen [employer] : ENDOSCOPY [id number] 08/25/2023 [id number] / / [id number] Stent Bili Pigtail 7fr 100mm - [id number] Implanted:Qty: 1 on 12/07/2022 by Tanya Morris MD at OR [facility] N/A: Abdomen [employer] [id number] 08/03/2025 PBD-1033-0 710 / / [id number] Stent Bili Pigtail 7fr 100mm - [id number] Implanted:Qty: 1 on 12/07/2022 by Tanya Morris MD at OR [facility] N/A: Abdomen [employer] [id number] 08/03/2025 PBD-1033-0 710 / / 2YK Power Port 8fr Sngl Lumen Plas - [id number] Implanted:Qty: 1 on 12/29/2022 by Landon Hickman DO at OR [facility] Right: Chest CR BARD : PERIPHERAL VASCULAR [id number] 12/02/2023 [id number] / / [id number] Hanarostent Noncover 10dm 10cm - [id number] Implanted:Qty: 1 on 02/19/2023 by Tanya Morris MD at OR [facility] [employer] [id number] 12/31/2024 [facility]-10-100 -180 / / [id number] documented as of this encounter Results * (ABNORMAL) BNP, NT-PRO (02/29/2024 9:14 AM EDT) BNP, NT-Pro 1,088(H) <300 pg/mL 03/02/2024 1:21 PM EDT LABORATORY [facility] Blood Venous blood specimen / Unknown Venipuncture / Unknown 02/29/2024 9:14 AM EDT 02/29/2024 9:14 AM EDT Narrative [facility]ORY [facility] - 03/02/2024 1:21 PM EDT Exclude Heart Failure: <300 pg/mL Diagnose Heart Failure: Age <50 yr: >450 pg/mL 50-75 yr: >900 pg/mL >75 yr: >1800 pg/mL GFR is 30-59 mL/min: >1200 pg/mL or Age-adjusted values GFR <30 mL/min: do not use, not reliable Prognostic threshold: 1000 pg/mL Hardik Gross MD LAB BLOOD ORDERA BLES [facility] [address] [facility] [address] documented in this encounter Visit Diagnoses Diagnosis [...] Advance Directives occurred with: Patient Care Teams Private Equity Analyst Relationship Specialty Start Date End Date Kristine Kan DO 293 [facility] [place] [address] PCP - General Family Medicine 12/18/22 documented as of this encounter
--- OUTSIDE RECORDS SUMMARY | 2024-06-06 23:43 | External Medical Summary ---
Author Name Unknown Address Unknown Organization K09:[facility] [place] [address] Laboratory Report Ordering Provider Test Date Status TASHA MANN 03/06/2024 09:26:46 Final Observation Date Value Abnormality Reference (Units ) Status Magnesium 03/06/2024 09:26:46 1.9 1.5-2.6 (m g/dL) Final Performing Location [facility] [place] [address]
--- OUTSIDE RECORDS SUMMARY | 2024-06-06 23:43 | External Medical Summary ---
Author Name Unknown Address Unknown Organization K09:[facility] [place] [address] Laboratory Report Ordering Provider Test Date Status TASHA MANN 03/06/2024 09:26:46 Final Observation Date Value Abnormality Reference (Units ) Status SYNC LEUKOCYTES IN BLOOD BY AUTOMATED COUNT 03/06/2024 09:26:46 7.67 4.00-10.80 (K/uL) Final Neutrophils/100 leukocytes in Blood by Manual count 03/06/2024 09:26:46 59.0 40.0-75.0 (%) Final Lymphocytes/100 leukocytes in Blood by Manual count 03/06/2024 09:26:46 32.0 18.0-42.0 (%) Final Monocytes/100 leukocytes in Blood by Manual count 03/06/2024 09:26:46 8.0 1.0-11.0 (%) Final Metamyelocytes/100 leukocytes in Blood by Manual count 03/06/2024 09:26:46 1.0 Above high normal <=0.0 (%) Final Neutrophils [#/volume] in Blood by Manual count 03/06/2024 09:26:46 4.53 1.80-7.70 (K/uL) Final Lymphocytes [#/volume] in Blood by Manual count 03/06/2024 09:26:46 2.45 1.00-4.80 (K/uL) Final Monocytes [#/volume] in Blood by Manual count 03/06/2024 09:26:46 0.61 0.00-1.10 (K/uL) Final Metamyelocytes [#/volume] in Blood by Manual count 03/06/2024 09:26:46 0.08 Above high normal <=0.00 (K/uL) Final Nucleated erythrocytes/100 leukocytes [Ratio] in Blood by Automated count 03/06/2024 09:26:46 Final Performing Location [facility] [address]
--- OUTSIDE RECORDS SUMMARY | 2024-06-06 23:43 | External Medical Summary | Summary of Care ---
Author Name Unknown Organization [facility] Address [address] [place] [address] Phone [phone] Care Team Providers Care Chief Of Harbor Patrol Name Role Phone Kristine Kan Primary Care Provider [phone] Reason for Visit * Reason Onset Date Comments Appointment 03/02/2024 Encounter Details Date Type Department Care Team (Late st Contact Info) Description 03/02/2024 Telephone Hematology/Oncology [facility] 200 [place] [address] Hardik Gross MD [address] [place] [address] Appointment Allergies Active Allergy Reactions Criticality Noted [...] mcgIndications:Vitamin B 12 deficiency 1000 mcg IM [id number] 09/02/2023 08/03/2024 Active Fluorouracil (5-Fu) 4,475 mg [...] encounter Miscellaneous Notes * Telephone Encounter - Alondra Arias LPN - 03/02/2024 3:06 PM EDT Called and spoke with patient, offered patient time with KRISTA Buitrago on 03/07/2024 at 8:00 am. Patient agreeable to appointment at 8:00 am on 03/07. She states she does not want to move her appointments from 03/07/2024 at this time. Patient denies any other needs or complaints. * Telephone Encounter - Jose Pineda RN [...] Description 03/06/2024 9:30 AM EDT Laboratory Laboratory [facility] [place] [address] [facility] [place] [phone] Jessica Lab [facility] [address] [facility] [place] [address] 03/07/2024 8:00 AM EDT Office Visit Hematology/Oncology [facility] [place] [address] [facility] [place] [address] Samantha Cohen CRNP 400 [facility] [place] [address] 03/07/2024 1:00 PM EDT Hem/Onc Treatment Hematology/Oncology Treatment, [place] [address] [facility] [place] [address] Jessica, Chair 3 Hem Onc [address] [place] [address] 03/14/2024 2:25 PM EDT Office Visit Hematology/Oncology [facility] [place] [address] [place] [phone] Hardik Gross MD [address] [facility] [place] [address] 03/15/2024 1:00 PM EDT Imaging Radiology [facility] 1st [facility], [place] [address] [place] [address] 03/21/2024 3:40 PM EDT Office Visit Family Practice [address], [place] [facility] [address] Kristine Kan DO 293 [facility] [place] [address] Health Maintenance Due Date Last Done Comments COVID-19 Vaccine (2022- season) 2024 11/08/2023, 07/10/2022, 01/06/2022, Additional history exists GFR 08/31/2024 02/29/2024, 02/02, 02/07/2024, Additional history exists Albumin/Creatinine Ratio 09/02/2024 09/02/2023, 0810/2021 CKD PHOS USE SMARTSET 15026 11/25/2024 11/25/2023, 0 12/05/2022 HbA1c 11/25/2024 11/25/2023, 11/04, 05/04/2022, Additional history exists CKD HGB USE SMARTSET 96605 02/28/202502/28, 02/29/2024, 02/21/2024, Additional history exists DXA [...] this encounter Medical Devices Implanted Type Area Uniforms Sales Representative Device Identifier Shelf Expiration Date Model / Serial / Lot Lens Intraoc 21.5 - [id number] - [id number] Implanted:Qty: 1 on 07/27/2019 by Tristian Araujo MD at OR [facility] Left: Eye BAUSCH & LOMB 04/02/2024 [id number] / [id number] / [id number] Lens Intraoc 21.5 - [id number] - [id number] Implanted:Qty: 1 on 08/08/2019 by Tristian Araujo MD at OR [facility] Right: Eye BAUSCH & LOMB 04/02/2024 [id number] / [id number] / [id number] Stent Axios [id number] - [id number] Implanted:Qty: 1 on 12/07/2022 by Tanya Morris MD at OR [facility] N/A: Abdomen [employer] : ENDOSCOPY [id number] 08/25/2023 [id number] / / [id number] Stent Bili Pigtail 7fr 100mm - [id number] Implanted:Qty: 1 on 12/07/2022 by Tanya Morris MD at OR [facility] N/A: Abdomen [employer] [id number] 08/03/2025 PBD-1033-0 710 / / [id number] Stent Bili Pigtail 7fr 100mm - [id number] Implanted:Qty: 1 on 12/07/2022 by Tanya Morris MD at OR [facility] N/A: Abdomen [employer] [id number] 08/03/2025 PBD-1033-0 710 / / 2YK Power Port 8fr Sngl Lumen Plas - [id number] Implanted:Qty: 1 on 12/29/2022 by Landon Hickman DO at OR [facility] Right: Chest CR BARD : PERIPHERAL VASCULAR [id number] 12/02/2023 [id number] / / [id number] Hanarostent Noncover 10dm 10cm - [id number] Implanted:Qty: 1 on 02/19/2023 by Tanya Morris MD at OR [facility] [employer] [id number] 12/31/2024 SHS-10-100 -180 / / [id number] documented as of this encounter Advance Directives * Full Code (Latest Code Status on File) Date Activated Date Inactivated Comments 12/04/2022 10:10 PM 12/08/2022 3:55 PM This order re flects the patients wishes and were consensually agreed upon. Question Answer Comments Discussion of Advance Directives occurred with: Patient Care Teams Chief Of Harbor Patrol Relationship Specialty Start Date End Date Kristine Kan DO [address] [place] [address] PCP - General Family Medicine 12/18/22 documented as of this encounter
--- OUTSIDE RECORDS SUMMARY | 2024-06-06 23:43 | External Medical Summary | Summary of Care ---
Author Name Unknown Organization [facility] Address [address] [place] [address] Phone [phone] Care Team Providers Care Contract Engineer Name Role Phone Kristine aKn Primary Care Provider [phone] Reason for Referral * Precert (Within 10 days (routine)) - Authorized Specialty Diagnoses / Procedures Referred By Contac t Referred To Contact Cardiac Studies Diagnoses Carcinoma of gallbladder (HCC) Procedures ECHO, COMPLETE (2D), TRANS-THORACIC Hadrik Gross MD 200 [facility] [place] [address] Referral ID Status Reason Start Date Expiration Date V isits Requested Visits Authorized [id number] Authorized Precert 03/02/2024 999 999 Encounter Details Date Type Department Care Team (Late st Contact Info) Description 03/02/2024 Orders Only Hematology/Oncology, [address] [place] [address] Hardik Gross MD 200 [facility] [place] [address] Carcinoma of gallbladder (HCC)* Allergies Active Allergy [...] mcgIndications:Vitamin B 12 deficiency 1000 mcg IM [id number] 09/02/2023 08/03/2024 Active documented as of this [...] Description 03/06/2024 9:30 AM EDT Laboratory Laboratory [facility] [place] [address] [place] [address] [phone] [place] [address] 03/07/2024 8:00 AM EDT Office Visit Hematology/Oncology [facility] 200 [facility] [place], [place] [phone] Samantha Cohen CRNP 400 [facility] [address] 03/07/2024 1:00 PM EDT Hem/Onc Treatment Hematology/Oncology Treatment, [place] [address] [facility] [address] [place], [place] [phone] Jessica, Chair 3 Hem Onc [facility] 200 [facility] [place], [place] [address] 03/14/2024 2:25 PM EDT Office Visit Hematology/Oncology [facility] 200 [facility] [place] [address] Hardik Gross MD 200 [facility] [place] [address] 03/15/2024 1:00 PM EDT Imaging Radiology [facility] 1st [facility] 132 [facility] [place] [address] 03/21/2024 3:40 PM EDT Office Visit Family Practice [address], [place] 293 [place] [phone] Kristine Kan DO [address] [place], [place] [address] Scheduled Orders Name Type Priority Associated Diagnoses Orde r Schedule ECHO, COMPLETE (2D), TRANS-THORACIC Echocardiology Routine Carcinoma of gallbladder (HCC) Expected: 03/02/2024 (Approximate), Expires: 04/02/2026 Health Maintenance Due Date Last Done Comments COVID-19 Vaccine ( season) 2024 11/08/2023, 07/10/2022, 01/06/2022, Additional history exists GFR 08/31/2024 02/29/2024, 02/02, 02/07/2024, Additional history exists Albumin/Creatinine Ratio 09/02/2024 09/02/2023, 08/0 10/2021 CKD PHOS USE SMARTSET 98903 11/25/2024 11/25/2023, 0 12/05/2022 HbA1c 11/25/2024 11/25/2023, 11/04, 05/04/2022, Additional history exists CKD HGB USE SMARTSET 03041 02/28/202502/28, 02/29/2024, 02/21/2024, Additional history exists DXA [...] this encounter Medical Devices Implanted Type Area Onsite Case Manager Device Identifier Shelf Expiration Date Model / Serial / Lot Lens Intraoc 21.5 - [id number] - [id number] Implanted:Qty: 1 on 07/27/2019 by Tristian Araujo MD at OR [facility] Left: Eye BAUSCH & LOMB 04/02/2024 [id number] / [id number] / [id number] Lens Intraoc 21.5 - [id number] - [id number] Implanted:Qty: 1 on 08/08/2019 by Tristian Araujo MD at OR [facility] Right: Eye BAUSCH & LOMB 04/02/2024 [id number] / [id number] / [id number] Stent Axios [id number] - [id number] Implanted:Qty: 1 on 12/07/2022 by Tanya Morris MD at OR [facility] N/A: Abdomen [employer] : ENDOSCOPY [id number] 08/25/2023 [id number] / / [id number] Stent Bili Pigtail 7fr 100mm - [id number] Implanted:Qty: 1 on 12/07/2022 by Tanya Morris MD at OR [facility] N/A: Abdomen [employer] [id number] 08/03/2025 PBD-1033-0 710 / / [id number] Stent Bili Pigtail 7fr 100mm - [id number] Implanted:Qty: 1 on 12/07/2022 by Tanya Morris MD at OR [facility] N/A: Abdomen [employer] [id number] 08/03/2025 PBD-1033-0 710 / / 2YK Power Port 8fr Sngl Lumen Plas - [id number] Implanted:Qty: 1 on 12/29/2022 by Landon Hickman DO at OR [facility] Right: Chest CR BARD : PERIPHERAL VASCULAR [id number] 12/02/2023 [id number] / / [id number] Hanarostent Noncover 10dm 10cm - [id number] Implanted:Qty: 1 on 02/19/2023 by Tanya Morris MD at OR [facility] [employer] [id number] 12/31/2024 SHS-10-100 -180 / / [id number] documented as of this encounter Visit Diagnoses [...] Advance Directives occurred with: Patient Care Teams Contract Engineer Relationship Specialty Start Date End Date Kristine Kan DO [address] [place] [address] PCP - General Family Medicine 12/18/22 documented as of this encounter
--- OUTSIDE RECORDS SUMMARY | 2024-06-06 23:43 | External Medical Summary | Summary of Care ---
Author Name Unknown Organization [facility] Address [address] [place] [address] Phone [phone] Care Team Providers Care Breading Machine Tender Name Role Phone Kristine Kan Primary Care Provider [phone] Encounter Details Date Type Department Care Team (Late st Contact Info) Description 03/01/2024 Result Scan Unspecified Department Ginny, Hardik Montero MD [address] [place] [address] <No scans attached> Allergies Active Allergy Reactions Criticality Noted Date [...] mcgIndications:Vitamin B 12 deficiency 1000 mcg IM [id number] 09/02/2023 08/03/2024 Active documented as of this [...] Description 03/06/2024 9:30 AM EDT Laboratory Laboratory [place] [address] [address] [place] [phone] Jessica, Lab [place] [address] [place] [address] 03/07/2024 8:00 AM EDT Office Visit Hematology/Oncology [facility] [place] [address] [place] [phone] Samantha Cohen CRNP [address] [place] [address] [place] [address] 03/07/2024 1:00 PM EDT Hem/Onc Treatment Hematology/Oncology Treatment, [place] [address] [facility] [address] [place] [phone] Jessica, Chair 3 Hem Onc [place] [address] [place] [address] 03/14/2024 2:25 PM EDT Office Visit Hematology/Oncology [facility] [place] [address] [place] [phone] Hardik Gross MD [address] [place] [address] 03/15/2024 1:00 PM EDT Imaging Radiology [facility] 1st [facility], [place] [address] [place] [address] 03/21/2024 3:40 PM EDT Office Visit Family Practice [address], [place] [address] [place] [facility], [place] [address] Kristine Kan DO [facility] [address] Health Maintenance Due Date Last Done Comments COVID-19 Vaccine ( season) 2024 11/08/2023, 07/10/2022, 01/06/2022, Additional history exists GFR 08/31/2024 02/29/2024, 02/02, 02/07/2024, Additional history exists Albumin/Creatinine Ratio 09/02/2024 09/02/2023, 0810/2021 CKD PHOS USE SMARTSET 80068 11/25/2024 11/25/2023, 0 12/05/2022 HbA1c 11/25/2024 11/25/2023, 11/04, 05/04/2022, Additional history exists CKD HGB USE SMARTSET 79494 02/28/202502/28, 02/29/2024, 02/21/2024, Additional history exists DXA [...] this encounter Medical Devices Implanted Type Area Screen Printer Device Identifier Shelf Expiration Date Model / Serial / Lot Lens Intraoc 21.5 - [id number] - [id number] Implanted:Qty: 1 on 07/27/2019 by Tristian Araujo MD at OR [facility] Left: Eye BAUSCH & LOMB 04/02/2024 [id number] / [id number] / [id number] Lens Intraoc 21.5 - [id number] - [id number] Implanted:Qty: 1 on 08/08/2019 by Tristian Araujo MD at OR [facility] Right: Eye BAUSCH & LOMB 04/02/2024 [id number] / [id number] / [id number] Stent Axios 32lsd36wq - [id number] Implanted:Qty: 1 on 12/07/2022 by Tanya Morris MD at OR [facility] N/A: Abdomen [employer] : ENDOSCOPY [id number] 08/25/2023 [id number] / / [id number] Stent Bili Pigtail 7fr 100mm - [id number] Implanted:Qty: 1 on 12/07/2022 by Tanya Morris MD at OR [facility] N/A: Abdomen [employer] [id number] 08/03/2025 PBD-1033-0 710 / / 2YK Stent Bili Pigtail 7fr 100mm - [id number] Implanted:Qty: 1 on 12/07/2022 by Tanya Morris MD at OR [facility] N/A: Abdomen [employer] [id number] 08/03/2025 PBD-1033-0 710 / / 2YK Power Port 8fr Sngl Lumen Plas - [id number] Implanted:Qty: 1 on 12/29/2022 by Landon Hickman DO at OR [facility] Right: Chest CR BARD : PERIPHERAL VASCULAR [id number] 12/02/2023 [id number] / / [id number] Hanarostent Noncover 10dm 10cm - [id number] Implanted:Qty: 1 on 02/19/2023 by Tanya Morris MD at OR [facility] [employer] [id number] 12/31/2024 [facility]-10-100 -180 / / [id number] documented as of this encounter Procedures Procedure Name Priority Date/Time Associated Diagnosis Comments OUTSIDE LAB RESULTS 03/01/2024 OUTSIDE LAB RESULTS 03/01/2024 documented in this encounter Results * OUTSIDE LAB RESULTS (03/01/2024) 03/01/2024 Hardik Gross MD LABORATORY * OUTSIDE LAB RESULTS (03/01/2024) 03/01/2024 Hardik Gross MD LABORATORY documented in this encounter Advance Directives * Full Code (Latest Code Status on File) Date Activated Date Inactivated Comments 12/04/2022 10:10 PM 12/08/2022 3:55 PM This order re flects the patients wishes and were consensually agreed upon. Question Answer Comments Discussion of Advance Directives occurred with: Patient Care Teams Breading Machine Tender Relationship Specialty Start Date End Date Kristine Kan DO [address] [place] [address] PCP - General Family Medicine 12/18/22 documented as of this encounter
--- OUTSIDE RECORDS SUMMARY | 2024-06-06 23:43 | External Medical Summary | Summary of Care ---
Author Name Unknown Organization [facility] Address [address] [place] [address] Phone [phone] Care Team Providers Care Space Systems Operations Manager Name Role Phone Kristine Kan Primary Care Provider [phone] Reason for Visit * Reason Onset Date Comments Advice 03/02/2024 Encounter Details Date Type Department Care Team (Late st Contact Info) Description 03/02/2024 Telephone Hematology/Oncology [facility] 200 [place] [phone] Hardik Gross MD 200 [place] [address] Advice Allergies Active Allergy Reactions Criticality Noted [...] mcgIndications:Vitamin B 12 deficiency 1000 mcg IM [id number] 09/02/2023 08/03/2024 Active Fluorouracil (5-Fu) 4,475 mg [...] Unable to reach cardiology Faxed order to [facility] Confirmation fax successful Will follow up with [facility] * Telephone Encounter - Carla Damon RN [...] patients preference is but please check at [facility] if unable to get appt at quickly. [...] (she will be receiving blood transfusion at [facility] today) and b/l feet have+2-+3 pitting edema. BP 103 systolic, pt reports dizziness with standing. Dr. Reinier ulloa. We held patients treatment yesterday and Dr. Gross advised her to hold her Atenolol d/t ongoing hypotension/syncope. documented in this encounter Plan of Treatment Upcoming Encounters Date Type Department Care Team (Late st Contact Info) Description 03/06/2024 9:30 AM EDT Laboratory Laboratory [place] [address] [place] [phone] [place], Lab [address] [place] [address] 03/07/2024 8:00 AM EDT Office Visit Hematology/Oncology [facility] [address] [place], [place] [address] Samantha Cohen CRNP [address] [place] [address] 03/07/2024 1:00 PM EDT Hem/Onc Treatment Hematology/Oncology Treatment, [place] [address] [place], [place] [address] Jessica, Chair 3 Hem Onc [facility] 200 [facility] [place] [address] 03/14/2024 2:25 PM EDT Office Visit Hematology/Oncology [facility] [address] [place] [phone] Hardik Gross MD [address] [place] [address] 03/15/2024 1:00 PM EDT Imaging Radiology [facility] [address] [facility] 132 [facility] [place] [address] 03/21/2024 3:40 PM EDT Office Visit Family Practice [address], [place] 293 [place] [address] Kristine Kan DO 293 [facility], [place] [address] Health Maintenance Due Date Last Done Comments COVID-19 Vaccine ( season) 2024 11/08/2023, 07/10/2022, 01/06/2022, Additional history exists GFR 08/31/2024 02/29/2024, 02/02, 02/07/2024, Additional history exists Albumin/Creatinine Ratio 09/02/2024 09/02/2023, 08/0 10/2021 CKD PHOS USE SMARTSET 44805 11/25/2024 11/25/2023, 0 12/05/2022 HbA1c 11/25/2024 11/25/2023, 11/04, 05/04/2022, Additional history exists CKD HGB USE SMARTSET 68497 02/28/202502/28, 02/29/2024, 02/21/2024, Additional history exists DXA [...] encounter Medical Devices Implanted Type Area Director Global Strategic Publisher Sales Device Identifier Shelf Expiration Date Model / Serial / Lot Lens Intraoc 21.5 - [id number] - [id number] Implanted:Qty: 1 on 07/27/2019 by Tristian Araujo MD at OR [facility] Left: Eye BAUSCH & LOMB 04/02/2024 [id number] / [id number] / [id number] Lens Intraoc 21.5 - [id number] - [id number] Implanted:Qty: 1 on 08/08/2019 by Tristian Araujo MD at OR [facility] Right: Eye BAUSCH & LOMB 04/02/2024 [id number] / [id number] / [id number] Stent Axios 46wfe03nj - [id number] Implanted:Qty: 1 on 12/07/2022 by Tanya Morris MD at OR [facility] N/A: Abdomen [employer] : ENDOSCOPY [id number] 08/25/2023 [id number] / / [id number] Stent Bili Pigtail 7fr 100mm - [id number] Implanted:Qty: 1 on 12/07/2022 by Tanya Morris MD at OR [facility] N/A: Abdomen [employer] [id number] 08/03/2025 PBD-1033-0 710 / / 2YK Stent Bili Pigtail 7fr 100mm - [id number] Implanted:Qty: 1 on 12/07/2022 by Tanya Morris MD at OR [facility] N/A: Abdomen [employer] [id number] 08/03/2025 PBD-1033-0 710 / / 2YK Power Port 8fr Sngl Lumen Plas - [id number] Implanted:Qty: 1 on 12/29/2022 by Landon Hickman DO at OR [facility] Right: Chest CR BARD : PERIPHERAL VASCULAR [id number] 12/02/2023 [id number] / / [id number] Hanarostent Noncover 10dm 10cm - [id number] Implanted:Qty: 1 on 02/19/2023 by Tanya Morris MD at OR [facility] [employer] [id number] 12/31/2024 SHS-10-100 -180 / / [id number] documented as of this encounter Results * (ABNORMAL) BNP, NT-PRO (02/29/2024 9:14 AM EDT) BNP, NT-Pro 1,088(H) <300 pg/mL 03/02/2024 1:21 PM EDT LABORATORY [facility] Blood Venous blood specimen / Unknown Venipuncture / Unknown 02/29/2024 9:14 AM EDT 02/29/2024 9:14 AM EDT Narrative LABORATORY [facility] - 03/02/2024 1:21 PM EDT Exclude Heart Failure: <300 pg/mL Diagnose Heart Failure: Age <50 yr: >450 pg/mL 50-75 yr: >900 pg/mL >75 yr: >1800 pg/mL GFR is 30-59 mL/min: >1200 pg/mL or Age-adjusted values GFR <30 mL/min: do not use, not reliable Prognostic threshold: 1000 pg/mL Hardik Gross MD LAB BLOOD ORDERA BLES LABORATORY [facility] [address] [place] [address] documented in this encounter Visit Diagnoses Diagnosis [...] Advance Directives occurred with: Patient Care Teams Space Systems Operations Manager Relationship Specialty Start Date End Date Kristine Kan DO [address] [place] [address] PCP - General Family Medicine 12/18/22 documented as of this encounter
--- OUTSIDE RECORDS SUMMARY | 2024-06-06 23:43 | External Medical Summary | Summary of Care ---
Author Name Unknown Organization [facility] Address [address] [place] [address] Phone [phone] Care Team Providers Care Waist Cutter Name Role Phone Kristine Kan Primary Care Provider Encounter Details Date Type Department Care Team (Late st Contact Info) Description 03/02/2024 Telephone Hematology/Oncology [facility] [place] [address] [place] [address] Hardik Gross MD [address] [place] [address] Allergies Active Allergy Reactions Criticality Noted Date [...] mcgIndications:Vitamin B 12 deficiency 1000 mcg IM [id number] 09/02/2023 08/03/2024 Active Fluorouracil (5-Fu) 4,475 mg [...] Laboratory [place] [address] [place] [address] 03/07/2024 8:00 AM EDT Office Visit Hematology/[place] [phone] Samantha Cohen, KRISTA [address] [place] [address] 03/07/2024 1:00 PM EDT Hem/Onc Treatment Hematology/Oncology Treatment, [place] [address] [place], [place] [phone] [place], Chair 3 Hem Onc [place] [address] [place] [address] 03/14/2024 2:25 PM EDT Office Visit Hematology/Oncology [facility] [address] [place] [phone] Hardik Gross MD [address] [place] [address] 03/15/2024 1:00 PM EDT Imaging Radiology [facility] 1st [facility] 132 [facility] [place] [address] 03/21/2024 3:40 PM EDT Office Visit Family Practice [address], [place] 293 [facility], [place] [phone] Kristine Kan DO 293 [facility], [place] [address] Health Maintenance Due Date Last Done Comments COVID-19 Vaccine ( season) 2024 11/08/2023, 07/10/2022, 01/06/2022, Additional history exists GFR 08/31/2024 02/29/2024, 02/02, 02/07/2024, Additional history exists Albumin/Creatinine Ratio 09/02/2024 09/02/2023, 0810/2021 CKD PHOS USE SMARTSET 12565 11/25/2024 11/25/2023, 0 12/05/2022 HbA1c 11/25/2024 11/25/2023, 11/04, 05/04/2022, Additional history exists CKD HGB USE SMARTSET 20033 02/28/202502/28, 02/29/2024, 02/21/2024, Additional history exists DXA [...] encounter Medical Devices Implanted Type Area Senior Bioinformatics Specialist Device Identifier Shelf Expiration Date Model / Serial / Lot Lens Intraoc 21.5 - [id number] - [id number] Implanted:Qty: 1 on 07/27/2019 by Tristian Araujo MD at OR [facility] Left: Eye BAUSCH & LOMB 04/02/2024 [id number] / [id number] / [id number] Lens Intraoc 21.5 - [id number] - [id number] Implanted:Qty: 1 on 08/08/2019 by Tristian Araujo MD at OR [facility] Right: Eye BAUSCH & LOMB 04/02/2024 [id number] / [id number] / [id number] Stent Axios 65olm96px - [id number] Implanted:Qty: 1 on 12/07/2022 by Tanya Morris MD at OR [facility] N/A: Abdomen [employer] : ENDOSCOPY [id number] 08/25/2023 [id number] / / [id number] Stent Bili Pigtail 7fr 100mm - [id number] Implanted:Qty: 1 on 12/07/2022 by Tayna Morris MD at OR [facility] N/A: Abdomen [employer] [id number] 08/03/2025 PBD-1033-0 710 / / 2YK Stent Bili Pigtail 7fr 100mm - [id number] Implanted:Qty: 1 on 12/07/2022 by Tanya Morris MD at OR [facility] N/A: Abdomen [employer] [id number] 08/03/2025 PBD-1033-0 710 / / 2YK Power Port 8fr Sngl Lumen Plas - [id number] Implanted:Qty: 1 on 12/29/2022 by Landon Hickman DO at OR [facility] Right: Chest CR BARD : PERIPHERAL VASCULAR [id number] 12/02/2023 [id number] / / [id number] Hanarostent Noncover 10dm 10cm - [id number] Implanted:Qty: 1 on 02/19/2023 by Tanya Morris MD at OR [facility] [employer] [id number] 12/31/2024 [facility]-10-100 -180 / / [id number] documented as of this encounter Advance Directives * Full Code (Latest Code Status on File) Date Activated Date Inactivated Comments 12/04/2022 10:10 PM 12/08/2022 3:55 PM This order re flects the patients wishes and were consensually agreed upon. Question Answer Comments Discussion of Advance Directives occurred with: Patient Care Teams Waist Cutter Relationship Specialty Start Date End Date Kristine Kan DO [address] [place] [address] PCP - General Family Medicine 12/18/22 documented as of this encounter
--- OUTSIDE RECORDS SUMMARY | 2024-06-06 23:43 | External Medical Summary | Summary of Care ---
Author Name Unknown Organization [facility] Address [address] [place] [address] Phone [phone] Care Team Providers Care Auto Roller Name Role Phone Kristine Kan Primary Care Provider [phone] Reason for Visit * Reason Onset Date Comments Advice 03/02/2024 Encounter Details Date Type Department Care Team (Late st Contact Info) Description 03/02/2024 Telephone Hematology/Oncology [facility] 200 [place] [phone] Hardik Gross MD 200 [place] [address] Advice Allergies Active Allergy Reactions Criticality Noted [...] mcgIndications:Vitamin B 12 deficiency 1000 mcg IM [id number] 09/02/2023 08/03/2024 Active Fluorouracil (5-Fu) 4,475 mg in NSS 138 mL infusion 4475 mg IV CONTINUOUS 02/29/2024 03/02/2024 Active documented as of this encounter (statuses [...] (she will be receiving blood transfusion at [facility] today) and b/l feet have+2-+3 pitting edema. BP 103 systolic, pt reports dizziness with standing. Dr. Reinier ulloa. We held patients treatment yesterday and Dr. Gross advised her to hold her Atenolol d/t ongoing hypotension/syncope. documented in this encounter Plan of Treatment Upcoming Encounters Date Type Department Care Team (Late st Contact Info) Description 03/06/2024 9:30 AM EDT Laboratory Laboratory [facility] [place] [address] [place] [phone] Jessica, Lab [address] [place] [address] 03/07/2024 1:00 PM EDT Hem/Onc Treatment Hematology/Oncology Treatment, [place] 200 [facility] [place] [phone] Jessica, Chair 3 Hem On[address] [place] [address] 03/14/2024 2:25 PM EDT Office Visit Hematology/Oncology [facility] [place] [address] [place] [phone] Hardik Gross MD [address] [place] [address] 03/15/2024 1:00 PM EDT Imaging Radiology [facility] 1st [facility], [place] [address] [facility] [place] [address] 03/21/2024 3:40 PM EDT Office Visit Family Practice [address], [place] [address] [facility] [place] [address] Kristine Kan, [address] [place] [address] Pending Results Name Type Priority Associated Diagnoses Date /Time BNP, NT-PRO Lab Routine Carcinoma of gallbladder (HCC) 02/29/2024 9:14 AM EDT Scheduled Orders Name Type Priority Associated Diagnoses Orde r Schedule BNP, NT-PRO Lab Routine Carcinoma of gallbladder (HCC) Expected: 03/02/2024, Expires: 03/02/2025 Health Maintenance Due Date Last Done Comments COVID-19 Vaccine ( season) 2024 11/08/2023, 07/10/2022, 01/06/2022, Additional history exists GFR 08/31/2024 02/29/2024, 02/02, 02/07/2024, Additional history exists Albumin/Creatinine Ratio 09/02/2024 09/02/2023, 08/0 10/2021 CKD PHOS USE SMARTSET 81843 11/25/2024 11/25/2023, 0 12/05/2022 HbA1c 11/25/2024 11/25/2023, 11/04, 05/04/2022, Additional history exists CKD HGB USE SMARTSET 94748 02/28/202502/28, 02/29/2024, 02/21/2024, Additional history exists DXA [...] this encounter Medical Devices Implanted Type Area Photo Editor Device Identifier Shelf Expiration Date Model / Serial / Lot Lens Intraoc 21.5 - [id number] - [id number] Implanted:Qty: 1 on 07/27/2019 by Tristian Araujo MD at OR [facility] Left: Eye BAUSCH & LOMB 04/02/2024 [id number] / [id number] / [id number] Lens Intraoc 21.5 - [id number] - [id number] Implanted:Qty: 1 on 08/08/2019 by Tristian Araujo MD at OR [facility] Right: Eye BAUSCH & LOMB 04/02/2024 [id number] / [id number] / [id number] Stent Axios 74mlz21ry - [id number] Implanted:Qty: 1 on 12/07/2022 by Tanya Morris MD at OR [facility] N/A: Abdomen [employer] : ENDOSCOPY [id number] 08/25/2023 [id number] / / [id number] Stent Bili Pigtail 7fr 100mm - [id number] Implanted:Qty: 1 on 12/07/2022 by Tanya Morris MD at OR [facility] N/A: Abdomen Retailigence [employer] [id number] 08/03/2025 PBD-1033-0 710 / / [id number] Stent Bili Pigtail 7fr 100mm - [id number] Implanted:Qty: 1 on 12/07/2022 by Tanya Morris MD at OR [facility] N/A: Abdomen OLYMPUS [employer] [id number] 08/03/2025 PBD-1033-0 710 / / 2YK Power Port 8fr Sngl Lumen Plas - [id number] Implanted:Qty: 1 on 12/29/2022 by Landon Hickman DO at OR [facility] Right: Chest CR BARD : PERIPHERAL VASCULAR [id number] 12/02/2023 [id number] / / [id number] Hanarostent Noncover 10dm 10cm - [id number] Implanted:Qty: 1 on 02/19/2023 by Tanya Morris MD at OR [facility] [employer] [id number] 12/31/2024 [facility]-10-100 -180 / / [id number] documented as of this encounter Visit Diagnoses [...] Advance Directives occurred with: Patient Care Teams Auto Roller Relationship Specialty Start Date End Date Kristine Kan DO [address] [place] [address] PCP - General Family Medicine 12/18/22 documented as of this encounter
--- OUTSIDE RECORDS SUMMARY | 2024-06-06 23:43 | External Medical Summary ---
Author Name Unknown Address Unknown Organization K09:[facility] [address] Laboratory Report Ordering Provider Test Date Status TASHA MANN 03/06/2024 09:26:46 Final Observation Date Value Abnormality Reference (Units ) Status WBC, Total 03/06/2024 09:26:46 7.67 4.00-10.8 0 (K/uL) Final RBC 03/06/2024 09:26:46 3.13 3.85-5.15 (M/uL) Final Hemoglobin 03/06/2024 09:26:46 10.4 Below low normal 12 .0-15.3 (g/dL) Final HCT 03/06/2024 09:26:46 33.0 Below low normal 36. 0-45.2 (%) Final MCV 03/06/2024 09:26:46 105.4 81.5-97.5 (fL) Final MCH 03/06/2024 09:26:46 33.2 27.0-34.0 (pg) Final MCHC 03/06/2024 09:26:46 31.5 32.0-36.0 (g/dL) Final RDW 03/06/2024 09:26:46 20.3 11.5-15.5 (%) Final Platelets 03/06/2024 09:26:46 160 140-400 (K /uL) Final MPV 03/06/2024 09:26:46 10.1 6.6-11.1 ( fL) Final Performing Location [facility] [address]
--- OUTSIDE RECORDS SUMMARY | 2024-06-06 23:44 | External Medical Summary | Summary of Care ---
Author Name Unknown Organization [facility] Address [address] [place] [address] Phone [phone] Care Team Providers Care Commercial Litigation Associate Name Role Phone Kristine Kan Primary Care Provider [phone] Reason for Visit * Reason Onset Date Comments Advice 03/02/2024 Encounter Details Date Type Department Care Team (Late st Contact Info) Description 03/02/2024 Telephone Hematology/Oncology [facility] 200 [place] [phone] Hardik Gross MD 200 [place] [address] Advice Allergies Active Allergy Reactions Criticality Noted [...] mcgIndications:Vitamin B 12 deficiency 1000 mcg IM [id number] 09/02/2023 08/03/2024 Active Fluorouracil (5-Fu) 4,475 mg [...] (she will be receiving blood transfusion at [facility] today) and b/l feet have+2-+3 pitting [...] EDT Laboratory [facility] [address] [place] [phone] Jessica, Lab [address] [place] [address] 03/07/2024 1:00 PM EDT Hem/Onc Treatment Hematology/Oncology Treatment, [place] [address] [place] [phone] Jessica, Chair 3 Hem Onc [address] [place] [address] 03/14/2024 2:25 PM EDT Office Visit Hematology/Oncology [facility] [place] [address] [place] [phone] Hardik Gross MD [address] [place] [address] 03/15/2024 1:00 PM EDT Imaging Radiology [facility] 1st [facility], [place] 132 [facility] [place] [address] 03/21/2024 3:40 PM EDT Office Visit Family Practice [address], [place] 293 [facility], [place] [phone] Kristine Kan DO 293 [facility], [place] [address] Health Maintenance Due Date Last Done Comments COVID-19 Vaccine ( season) 2024 11/08/2023, 07/10/2022, 01/06/2022, Additional history exists GFR 08/31/2024 02/29/2024, 02/02, 02/07/2024, Additional history exists Albumin/Creatinine Ratio 09/02/2024 09/02/2023, 0810/2021 CKD PHOS USE SMARTSET 73145 11/25/2024 11/25/2023, 0 12/05/2022 HbA1c 11/25/2024 11/25/2023, 11/04, 05/04/2022, Additional history exists CKD HGB USE SMARTSET 11039 02/28/202502/28, 02/29/2024, 02/21/2024, Additional history exists DXA [...] this encounter Medical Devices Implanted Type Area Prototype Machine Operator Device Identifier Shelf Expiration Date Model / Serial / Lot Lens Intraoc 21.5 - [id number] - [id number] Implanted:Qty: 1 on 07/27/2019 by Tristian Araujo MD at OR [facility] [address] Left: Eye BAUSCH & LOMB 04/02/2024 [id number] / [id number] / [id number] Lens Intraoc 21.5 - [id number] - [id number] Implanted:Qty: 1 on 08/08/2019 by Tristian Araujo MD at OR [facility] [address] [address] Right: Eye BAUSCH & LOMB 04/02/2024 [id number] / [id number] / [id number] Stent Axios 94fuu75jg - [id number] Implanted:Qty: 1 on 12/07/2022 by Tanya Morris MD at OR [facility] N/A: Abdomen [employer] : ENDOSCOPY [id number] 08/25/2023 [id number] / / [id number] Stent Bili Pigtail 7fr 100mm - [id number] Implanted:Qty: 1 on 12/07/2022 by Tanya Morris MD at OR [facility] N/A: Abdomen OLYMPUS [employer] [id number] 08/03/2025 PBD-1033-0 710 / / 2YK Stent Bili Pigtail 7fr 100mm - [id number] Implanted:Qty: 1 on 12/07/2022 by Tanya Morris MD at OR [facility] N/A: Abdomen All Protector [employer] [id number] 08/03/2025 PBD-1033-0 710 / / 2YK Power Port 8fr Sngl Lumen Plas - [id number] Implanted:Qty: 1 on 12/29/2022 by Landon Hickman DO at OR [facility] Right: Chest CR BARD : PERIPHERAL VASCULAR [id number] 12/02/2023 [id number] / / [id number] Hanarostent Noncover 10dm 10cm - [id number] Implanted:Qty: 1 on 02/19/2023 by Tanya Morris MD at OR [facility] [employer] [id number] 12/31/2024 [facility]-10-100 -180 / / [id number] documented as of this encounter Advance Directives * Full Code (Latest Code Status on File) Date Activated Date Inactivated Comments 12/04/2022 10:10 PM 12/08/2022 3:55 PM This order re flects the patients wishes and were consensually agreed upon. Question Answer Comments Discussion of Advance Directives occurred with: Patient Care Teams Commercial Litigation Associate Relationship Specialty Start Date End Date Kristine Kan DO [address] [place] [place] [address] PCP - General Family Medicine 12/18/22 documented as of this encounter
--- OUTSIDE RECORDS SUMMARY | 2024-06-06 23:44 | External Medical Summary | Summary of Care ---
Author Name Unknown Organization [facility] Address [address] [place] [address] Phone [phone] Care Team Providers Care Director Public Name Role Phone ChrisblancaKristine schultz Primary Care Provider Reason for Visit * Reason Comments Chemotherapy FOLFOX C5,D1 being d elayed 1 week * Episode Based Medications (Routine) - Authorized Specialty Diagnoses / Procedures Referred By Contac t Referred To Contact Diagnoses Carcinoma of gallbladder (HCC) Encounter for antineoplastic chemotherapy Procedures TX LEUCOVORIN CALCIUM INJECTION TX PALONOSETRON HCL TX FLUOROURACIL INJECTION [place] OXALIPLATIN Hardik Gross MD 200 [facility] [place] [address] Anc Hem/Onc [address] [address] Referral ID Status Reason Start Date Expiration Date V isits Requested Visits Authorized [id number] Authorized 12/14/2023 12/13/2024 999 999 Encounter Details Date Type Department Care Team (Latest Contact Info) Description 03/01/2024 11:00 AM EDT Hem/Onc Treatment Hematology/Oncolog y Treatment, [address] [phone] Jessica, Chair [address] Hem On[address] [place] [address] Carcinoma of gallbladder (HCC)*; Encounter for antineoplastic chemotherapy Allergies Active Allergy Reactions Criticality Noted Date Comments Latex Rash 06/28/2018 From a dressing Sulfamethoxazole Edema face/lips/tongue High 023 Trimethoprim Edema face/lips/tongue High 12/03/2022 documented as of this encounter (statuses as of 03/01/2024) Medications Medication Sig Dispensed Refills Start Date [...] mcgIndications:Vitamin B 12 deficiency 1000 mcg IM [id number] 09/02/2023 08/03/2024 Active documented as of this encounter (statuses as of 03/01/2024) Active Problems Problem Noted Date Diagnosed Date [...] as of this encounter (statuses as of 03/01/2024) Resolved Problems Problem Noted Date Diagnosed Date [...] as of this encounter (statuses as of 03/01/2024) Immunizations Name Administration Dates Next Due COVID-19 [...] 02/08/2020 TDAP (age 10 and older)(Boostrix) 12/18/2009 TDAP (age 11 and older)(Adacel) 12/18/2009 Varicella Zoster Vaccine (Adult) 08/20/2009 Zoster [...] AM EDT Hgb 8.2, creatinine 1.7. Per Dr Gross, ok for treatment, can offer transfusion if patient feels sheneeds it. See TE. documented in this encounter Plan of Treatment Upcoming Encounters Date Type Department Care Team (Late st Contact Info) Description 03/06/2024 9:30 AM EDT Laboratory Laboratory [facility] [place] [address] [place] [phone] Jessica, Lab [address] [place] [address] 03/07/2024 1:00 PM EDT Hem/Onc Treatment Hematology/Oncology Treatment, [place] [address] [place] [phone] Jessica, Chair 3 Hem Onc [facility] 200 [facility] [place] [address] 03/14/2024 2:25 PM EDT Office Visit Hematology/Oncology [facility] [place] [address] [place] [phone] Hardik Gross MD [address] [place] [address] 03/15/2024 1:00 PM EDT Imaging Radiology [facility] 1st [facility] 132 [facility] [place] [address] 03/21/2024 3:40 PM EDT Office Visit Family Practice [address], [place] 293 [place] [phone] Kristine Kan DO 293 [facility], [place] [address] Health Maintenance Due Date Last Done Comments COVID-19 Vaccine ( season) 2024 11/08/2023, 07/10/2022, 01/06/2022, Additional history exists GFR 08/31/2024 02/29/2024, 02/02, 02/07/2024, Additional history exists Albumin/Creatinine Ratio 09/02/2024 09/02/2023, 08/10/2021 CKD PHOS USE SMARTSET 77135 11/25/2024 11/25/2023, 0 12/05/2022 HbA1c 11/25/2024 11/25/2023, 11/04, 05/04/2022, Additional history exists CKD HGB USE SMARTSET 77470 02/28/202502/28, 02/29/2024, 02/21/2024, Additional history exists DXA [...] this encounter Medical Devices Implanted Type Area Animal Impersonator Device Identifier Shelf Expiration Date Model / Serial / Lot Lens Intraoc 21.5 - [id number] - [id number] Implanted:Qty: 1 on 07/27/2019 by Tristian Araujo MD at OR [facility] Left: Eye BAUSCH & LOMB 04/02/2024 [id number] / [id number] / [id number] Lens Intraoc 21.5 - [id number] - [id number] Implanted:Qty: 1 on 08/08/2019 by Tristian Araujo MD at OR [facility] Right: Eye BAUSCH & LOMB 04/02/2024 [id number] / [id number] / [id number] Stent Axios 28tnl27lb - [id number] Implanted:Qty: 1 on 12/07/2022 by Tanya Morris MD at OR [facility] N/A: Abdomen [employer] : ENDOSCOPY [id number] 08/25/2023 [id number] / / [id number] Stent Bili Pigtail 7fr 100mm - [id number] Implanted:Qty: 1 on 12/07/2022 by Tanya Morris MD at OR [facility] N/A: Abdomen OLYMPUS [employer] [id number] 08/03/2025 PBD-1033-0 710 / / 2YK Stent Bili Pigtail 7fr 100mm - [id number] Implanted:Qty: 1 on 12/07/2022 by Tanya Morris MD at OR [facility] N/A: Abdomen [employer] [id number] 08/03/2025 PBD-1033-0 710 / / 2YK Power Port 8fr Sngl Lumen Plas - [id number] Implanted:Qty: 1 on 12/29/2022 by Landon Hickman DO at OR [facility] Right: Chest CR BARD : PERIPHERAL VASCULAR [id number] 12/02/2023 [id number] / / [id number] Hanarostent Noncover 10dm 10cm - [id number] Implanted:Qty: 1 on 02/19/2023 by Tanya Morris MD at OR [facility] [employer] [id number] 12/31/2024 SHS-10-100 -180 / / [id number] documented as of this encounter Visit Diagnoses [...] Directives occurred with: Patient Care Teams Director Public Relationship Specialty Start Date End Date Kristine Kan DO [address] [facility] [place] [address] PCP - General Family Medicine 12/18/22 documented as of this encounter
--- OUTSIDE RECORDS SUMMARY | 2024-06-06 23:44 | External Medical Summary | Summary of Care ---
Author Name Unknown Organization [facility] Address [address] [place] [address] Phone [phone] Care Team Providers Care Pelt Inspector Name Role Phone ChrisblancaKristine schultz Primary Care [...] INJECTION [place] OXALIPLATIN Hardik Gross MD 200 [facility] [place] [address] Anc Hem/Onc [address] [address] Referral ID Status Reason Start Date Expiration Date V isits Requested Visits Authorized [id number] Authorized 12/14/2023 12/13/2024 999 999 Encounter Details Date Type Department Care Team (Latest Contact Info) Description 03/01/2024 11:00 AM EDT Hem/Onc Treatment Hematology/Oncolog y Treatment, [address] [phone] Jessica, Chair 1 Hem Onc [address] [place] [address] Carcinoma of gallbladder (HCC)*; Encounter for antineoplastic [...] mcgIndications:Vitamin B 12 deficiency 1000 mcg IM [id number] 09/02/2023 08/03/2024 Active documented as of this [...] Description 03/06/2024 9:30 AM EDT Laboratory Laboratory [facility] [place] [address] [place] [phone] Jessica, Lab [address] [place] [address] 03/07/2024 1:00 PM EDT Hem/Onc Treatment Hematology/Oncology Treatment, [place] [address] [place] [phone] Jessica, Chair 3 Hem Onc [facility] 200 [facility] [place] [address] 03/14/2024 2:25 PM EDT Office Visit Hematology/Oncology [facility] [place] [address] [place] [phone] Hardik Gross MD [address] [place] [address] 03/15/2024 1:00 PM EDT Imaging Radiology [facility] [address] [facility] 132 [facility] [place] [address] 03/21/2024 3:40 PM EDT Office Visit Family Practice [address], [place] 293 [place] [address] Kristine Kan DO 293 [facility], [place] [address] Health Maintenance Due Date Last Done Comments COVID-19 Vaccine ( season) 2024 11/08/2023, 07/10/2022, 01/06/2022, Additional history exists GFR 08/31/2024 02/29/2024, 02/02, 02/07/2024, Additional history exists Albumin/Creatinine Ratio 09/02/2024 09/02/2023, 08/10/2021 CKD PHOS USE SMARTSET 09310 11/25/2024 11/25/2023, 0 12/05/2022 HbA1c 11/25/2024 11/25/2023, 11/04, 05/04/2022, Additional history exists CKD HGB USE SMARTSET 20579 02/28/202502/28, 02/29/2024, 02/21/2024, Additional history exists DXA [...] this encounter Medical Devices Implanted Type Area Vp Account Director Device Identifier Shelf Expiration Date Model / Serial / Lot Lens Intraoc 21.5 - [id number] - [id number] Implanted:Qty: 1 on 07/27/2019 by Tristian Araujo MD at OR [facility] Left: Eye BAUSCH & LOMB 04/02/2024 [id number] / [id number] / [id number] Lens Intraoc 21.5 - [id number] - [id number] Implanted:Qty: 1 on 08/08/2019 by Tristian Araujo MD at OR [facility] Right: Eye BAUSCH & LOMB 04/02/2024 [id number] / [id number] / [id number] Stent Axios 06vdb01km - [id number] Implanted:Qty: 1 on 12/07/2022 by Tanya Morris MD at OR [facility] N/A: Abdomen [employer] : ENDOSCOPY [id number] 08/25/2023 [id number] / / [id number] Stent Bili Pigtail 7fr 100mm - [id number] Implanted:Qty: 1 on 12/07/2022 by Tanya Morris MD at [facility] N/A: Abdomen [employer] [id number] 08/03/2025 PBD-1033-0 710 / / 2YK Stent Bili Pigtail 7fr 100mm - [id number] Implanted:Qty: 1 on 12/07/2022 by Tanya Morris MD at [facility] N/A: Abdomen [employer] [id number] 08/03/2025 PBD-1033-0 710 / / 2YK Power Port 8fr Sngl Lumen Plas - [id number] Implanted:Qty: 1 on 12/29/2022 by Landon Hickman DO at OR [facility] Right: Chest CR BARD : PERIPHERAL VASCULAR [id number] 12/02/2023 [id number] / / [id number] Hanarostent Noncover 10dm 10cm - [id number] Implanted:Qty: 1 on 02/19/2023 by Tanya Morris MD at [facility] [employer] [id number] 12/31/2024 SHS-10-100 -180 / / [id number] documented as of this encounter Visit Diagnoses [...] Advance Directives occurred with: Patient Care Teams Pelt Inspector Relationship Specialty Start Date End Date Kristine aKn DO [address] [place] [address] PCP - General Family Medicine 12/18/22 documented as of this encounter
--- OUTSIDE RECORDS SUMMARY | 2024-06-06 23:44 | External Medical Summary ---
Author Name Unknown Address Unknown Organization K01:[facility] - [address] [place] [address] Laboratory Report Ordering Provider Test Date Status TASHA MANN 02/29/2024 09:14:03 Final Exclude Heart Failure: <300 pg/mL
Diagnose Heart Failure:
Age <50 yr: >450 pg/mL
50-75 yr: >900 pg/mL
>75 yr: >1800 pg/mL
GFR is 30-59 mL/min: >1200 pg/mL or Age- adjusted values
GFR <30 mL/min: do not use, not reliable

Prognostic threshold: 1000 pg/mL Observation Date Value Abnormality Reference (Units ) Status BNP, Pro-hormone 02/29/2024 09:14:03 1088 Above high no rmal <300 (pg/mL) Final Performing Location [facility] - [facility] [address] [place] [address]
--- OUTSIDE RECORDS SUMMARY | 2024-06-06 23:44 | External Medical Summary | Summary of Care ---
Author Name Unknown Organization [facility] Address [address] [place] [address] Phone [phone] Care Team Providers Care Grand Scribe Name Role Phone Kristine Kan Primary Care Provider [phone] Reason for Visit * Reason Onset Date Comments Test Results Lab 02/29/2024 Encounter Details Date Type Department Care Team (Late st Contact Info) Description 02/29/2024 Telephone Hematology/Oncology Treatment, [place] [address] [place] [address] Hardik Gross MD [address] [place] [address] Test Results Lab Allergies Active Allergy Reactions [...] mcgIndications:Vitamin B 12 deficiency 1000 mcg IM [id number] 09/02/2023 08/03/2024 Active documented as of this [...] encounter Miscellaneous Notes * Telephone Encounter - Conner Arias LPN - 02/29/2024 1:16 PM EDT Patient to receive 1 unit prbc. Called [facility] blood bank. Spoke with Aguilar. Spoke with Melly at [facility]. Called [facility] central scheduling. Patient scheduled for 03/02/2024 at 10:00 am. Faxed order to [facility]/ blood bank. * Addendum Note - Conner Arias LPN - 02/29/2024 1:16 PM EDTAddended by: CONNER ARIAS on: 02/29/2024 01:16 PM Modules accepted: Orders * Addendum Note - Carla Damon RN - 02/29/2024 12:50 PM EDTAddended by: CARLA DAMON on: 02/29/2024 12:50 PM Modules accepted: Orders * Telephone Encounter - Carla Damon RN - 02/29/2024 12:30 PM EDT Called and spoke to patient. She is fatigued, SOB/ occasionally woozy with activity. She would liketo get a transfusion. Reed: can you arrange for 1 unit PRBC, possibly since patient is getting chemo tomorrow? Patient is aware that she will get appt/ sign new consent when she comes in tomorrow. * Telephone Encounter - Carla Damon RN - 02/29/2024 10:42 AM EDT Hgb 8.2. Per discussion with Dr Gross, called patient to see if she feels she will need a blood transfusion. Attempted to call patient, mailbox full. Left message on mobile number that I would also send MyG. documented in this encounter Plan of Treatment Upcoming Encounters Date Type Department Care Team (Late st Contact Info) Description 03/06/2024 9:30 AM EDT Laboratory Laboratory [facility] Jessica [place] [address] [place] [phone] Jessica Lab [facility] [address] [facility] [place] [address] 03/07/2024 1:00 PM EDT Hem/Onc Treatment Hematology/Oncology Treatment, [place] [address] [place] [phone] Jessica, Chair 3 Hem Onc [facility] [address] [place] [address] 03/14/2024 2:25 PM EDT Office Visit Hematology/Oncology [facility] [address] [place], [place] [address] Hardik Gross MD [address] [place] [address] 03/15/2024 1:00 PM EDT Imaging Radiology [facility]st [facility] [address] [facility] [place] [address] 03/21/2024 3:40 PM EDT Office Visit Family Practice [address], [place] 293 [facility], [place] [phone] Kristine Kan DO 293 [facility] [address] Scheduled Orders Name Type Priority Associated Diagnoses Orde r Schedule TYPE AND SCREEN Lab Routine Carcinoma of gallbladder (HCC) Anemia due to antineoplastic chemotherapy Expected: 03/01/2024 (Approximate), Expires: 02/28/2025 Health Maintenance Due Date Last Done Comments COVID-19 Vaccine ( season) 2024 11/08/2023, 07/10/2022, 01/06/2022, Additional history exists GFR 08/31/2024 02/29/2024, 02/02, 02/07/2024, Additional history exists Albumin/Creatinine Ratio 09/02/2024 09/02/2023, 08/0 10/2021 CKD PHOS USE SMARTSET 29849 11/25/2024 11/25/2023, 0 12/05/2022 HbA1c 11/25/2024 11/25/2023, 11/04, 05/04/2022, Additional history exists CKD HGB USE SMARTSET 87040 02/28/202502/28, 02/29/2024, 02/21/2024, Additional history exists DXA [...] this encounter Medical Devices Implanted Type Area Advanced Developer Device Identifier Shelf Expiration Date Model / Serial / Lot Lens Intraoc 21.5 - [id number] - [id number] Implanted:Qty: 1 on 07/27/2019 by Tristian Arauoj MD at OR [facility] Left: Eye BAUSCH & LOMB 04/02/2024 [id number] / [id number] / [id number] Lens Intraoc 21.5 - [id number] - [id number] Implanted:Qty: 1 on 08/08/2019 by Tristian Araujo MD at OR [facility] Right: Eye BAUSCH & LOMB 04/02/2024 [id number] / [id number] / [id number] Stent Axios 86xwe43mi - [id number] Implanted:Qty: 1 on 12/07/2022 by Tanya Morris MD at OR [facility] N/A: Abdomen [employer] : ENDOSCOPY [id number] 08/25/2023 [id number] / / [id number] Stent Bili Pigtail 7fr 100mm - [id number] Implanted:Qty: 1 on 12/07/2022 by Tanya Morris MD at OR [facility] N/A: Abdomen [employer] [id number] 08/03/2025 PBD-1033-0 710 / / [id number] Stent Bili Pigtail 7fr 100mm - [id number] Implanted:Qty: 1 on 12/07/2022 by Tanya Morris MD at OR [facility] N/A: Abdomen [employer] [id number] 08/03/2025 PBD-1033-0 710 / / [id number] Power Port 8fr Sngl Lumen Plas - [id number] Implanted:Qty: 1 on 12/29/2022 by Landon Hickman DO at OR [facility] Right: Chest CR BARD : PERIPHERAL VASCULAR [id number] 12/02/2023 [id number] / / [id number] Hanarostent Noncover 10dm 10cm - [id number] Implanted:Qty: 1 on 02/19/2023 by Tanya Morris MD at OR [facility] [employer] [id number] 12/31/2024 SHS-10-100 -180 / / [id number] documented as of this encounter Results * VITAMIN B12 (02/29/2024 9:14 AM EDT) Vitamin B12 908 232 - 1,245 pg/mL 02/29/2024 10:37 PM EDT LABORATORY [facility] Blood Venous blood specimen / Unknown Venipuncture / Unknown 02/29/2024 9:14 AM EDT 02/29/2024 9:14 AM EDT Hardik Gross MD LAB BLOOD ORDERA BLES LABORATORY [facility] [address] [place] [address] * FOLIC ACID (02/29/2024 9:14 AM EDT) Folic Acid >20.0 >4.5 ng/mL 02/29/2024 10:37 PM EDT LABORATORY [facility] Blood Venous blood specimen / Unknown Venipuncture / Unknown 02/29/2024 9:14 AM EDT 02/29/2024 9:14 AM EDT Hardik Gross MD LAB BLOOD ORDERA BLES Performing Organization Address [facility] Co de Phone Number LABORATORY C [address] [place] [address] * IRON SCREEN, INCLUDING TIBC (02/29/2024 9:14 AM EDT) Iron 121 33 - 151 ug/dL 03/01/2024 4:15 AM EDT LAB[facility]ATORY [facility] Iron Binding Capacity 344 250 - 425 ug/dL 03/01/2024 4:15 AM EDT LAB[facility]ORY [facility] Transferrin Saturation Percent 35 15 - 55 % 03/01/2024 4:15 AM EDT LAB[facility]ATORY [facility] Blood Venous blood specimen / Unknown Venipuncture / Unknown 02/29/2024 9:14 AM EDT 02/29/2024 9:14 AM EDT Hardik Gross MD LAB BLOOD ORDERA BLES Performing Organization Address [facility] Co de Phone Number LABORATORY C [address] [place] [address] * (ABNORMAL) FERRITIN (02/29/2024 9:14 AM EDT) Ferritin 637(H) 13 - 150 ng/mL 02/29/2024 10:37 PM EDT LABORATORY [facility] Comment:Postmenopausal women have higher ferritin levels than pre-menopausal women. The above reference interval is based on pre-menopausal women. Blood Venous blood specimen / Unknown Venipuncture / Unknown 02/29/2024 9:14 AM EDT 02/29/2024 9:14 AM EDT Hardik Gross MD LAB BLOOD ORDERA BLES Performing Organization Address [facility] Co de Phone Number LABORATORY [facility] [address] [place] [address] documented in this encounter Visit Diagnoses Diagnosis Carcinoma of gallbladder (HCC)- Primary Malignant neoplasm of gallbladder Anemia due to antineoplastic chemotherapy Antineoplastic chemotherapy induced anemia Screening mammogram for breast cancer documented in this encounter Advance Directives * Full Code (Latest Code Status on File) Date Activated Date Inactivated Comments 12/04/2022 10:10 PM 12/08/2022 3:55 PM This order re flects the patients wishes and were consensually agreed upon. Question Answer Comments Discussion of Advance Directives occurred with: Patient Care Teams Grand Scribe Relationship Specialty Start Date End Date Kristine Kan DO [address] [place] [address] PCP - General Family Medicine 12/18/22 documented as of this encounter
--- OUTSIDE RECORDS SUMMARY | 2024-06-06 23:44 | External Medical Summary | Summary of Care ---
Author Name Unknown Organization [facility] Address [address] [place] [address] Phone [phone] Care Team Providers Care Certified Ethical Hacker Name Role Phone ChrisblancaKristine schultz Primary Care [...] INJECTION MO OXALIPLATIN Hardik Gross MD 200 [facility] [place] [address] Anc Hem/Onc [address] [address] Referral ID Status Reason Start Date Expiration Date V isits Requested Visits Authorized [id number] Authorized 12/14/2023 12/13/[phone] Encounter Details Date Type Department Care Team (Latest Contact Info) Description 03/01/2024 11:00 AM EDT Hem/Onc Treatment Hematology/Oncolog y Treatment, [address] [address] Jessica, Chair 1 Hem On[address] [place] [address] Carcinoma of gallbladder (HCC)*; Encounter for antineoplastic [...] mcgIndications:Vitamin B 12 deficiency 1000 mcg IM [id number] 09/02/2023 08/03/2024 Active documented as of this [...] 03/06/2024 9:30 AM EDT Laboratory Laboratory [facility] [place] [address] [place] [phone] Jessica, Lab [address]en[place] [address] [place] [address] 03/07/2024 1:00 PM EDT Hem/Onc Treatment Hematology/Oncology Treatment, [place] [address] [place] [phone] Jessica, Chair 3 Hem Onc [facility] 200 [facility] [place] [address] 03/14/2024 2:25 PM EDT Office Visit Hematology/Oncology [facility] [place] [address] [place] [address] Hardik Gross MD [address] [place] [address] 03/15/2024 1:00 PM EDT Imaging Radiology [facility] [address] [facility] 132 [facility] [place] [address] 03/21/2024 3:40 PM EDT Office Visit Family Practice [address], [place] 293 [place] [address] Kristine Kan DO 293 [facility], [place] [address] Health Maintenance Due Date Last Done Comments COVID-19 Vaccine ( season) 2024 11/08/2023, 07/10/2022, 01/06/2022, Additional history exists GFR 08/31/2024 02/29/2024, 02/02, 02/07/2024, Additional history exists Albumin/Creatinine Ratio 09/02/2024 09/02/2023, 08/10/2021 CKD PHOS USE SMARTSET 09312 11/25/2024 11/25/2023, 0 12/05/2022 HbA1c 11/25/2024 11/25/2023, 11/04, 05/04/2022, Additional history exists CKD HGB USE SMARTSET 12833 02/28/202502/28, 02/29/2024, 02/21/2024, Additional history exists DXA [...] this encounter Medical Devices Implanted Type Area Revenue Analyst Device Identifier Shelf Expiration Date Model / Serial / Lot Lens Intraoc 21.5 - [id number] - [id number] Implanted:Qty: 1 on 07/27/2019 by Tristian Araujo MD at OR [facility] Left: Eye BAUSCH & LOMB 04/02/2024 [id number] / [id number] / [id number] Lens Intraoc 21.5 - [id number] - [id number] Implanted:Qty: 1 on 08/08/2019 by Tristian Araujo MD at OR [facility] Right: Eye BAUSCH & LOMB 04/02/2024 [id number] / [id number] / [id number] Stent Axios [id number] - [id number] Implanted:Qty: 1 on 12/07/2022 by Tanya Morris MD at OR [facility] N/A: Abdomen [employer] : ENDOSCOPY [id number] 08/25/2023 [id number] / / [id number] Stent Bili Pigtail 7fr 100mm - [id number] Implanted:Qty: 1 on 12/07/2022 by Tanya Morris MD at OR [facility] N/A: Abdomen [employer] [id number] 08/03/2025 PBD-1033-0 710 / / 2YK Stent Bili Pigtail 7fr 100mm - [id number] Implanted:Qty: 1 on 12/07/2022 by Tanya Morris MD at OR [facility] N/A: Abdomen [employer] [id number] 08/03/2025 PBD-1033-0 710 / / 2YK Power Port 8fr Sngl Lumen Plas - [id number] Implanted:Qty: 1 on 12/29/2022 by Landon Hickman DO at OR [facility] Right: Chest CR BARD : PERIPHERAL VASCULAR [id number] 12/02/2023 [id number] / / [id number] Hanarostent Noncover 10dm 10cm - [id number] Implanted:Qty: 1 on 02/19/2023 by Tanya Morris MD at OR [facility] [email or web address] [id number] 12/31/2024 SHS-10-100 -180 / / [id number] documented as of this encounter Visit Diagnoses [...] Advance Directives occurred with: Patient Care Teams Certified Ethical Hacker Relationship Specialty Start Date End Date Kristine Kan DO 293 [facility] [place] [address] PCP - General Family Medicine 12/18/22 documented as of this encounter
--- OUTSIDE RECORDS SUMMARY | 2024-06-06 23:44 | External Medical Summary | Summary of Care ---
Author Name Unknown Organization [facility] Address [address] [place] [address] Phone [phone] Care Team Providers Care Land Title Examiner Name Role Phone Kristine Kan Primary Care Provider [phone] Encounter Details Date Type Department Care Team (Late st Contact Info) Description 03/02/2024 Abstract Hematology/Oncology [facility] Jessica [place] 200 [facility] [place] [phone] Hardik Gross MD [address] [place] [address] Allergies Active Allergy Reactions Criticality Noted Date [...] mcgIndications:Vitamin B 12 deficiency 1000 mcg IM [id number] 09/02/2023 08/03/2024 Active Fluorouracil (5-Fu) 4,475 mg [...] Description 03/06/2024 9:30 AM EDT Laboratory Laboratory [facility] [place] [address] [place] [phone] Jessica Lab [place] [address] [place] [address] 03/07/2024 1:00 PM EDT Hem/Onc Treatment Hematology/Oncology Treatment, [place] [address] [place] [phone] Jessica, Chair 3 Hem Onc [facility] [place] [address] 03/14/2024 2:25 PM EDT Office Visit Hematology/Oncology [facility] Jessica [place] [address] [place] [address] [phone] Hardik Gross MD [address] [place] [address] 03/15/2024 1:00 PM EDT Imaging Radiology [facility] 1st [facility], [place] [address] [place] [address] 03/21/2024 3:40 PM EDT Office Visit Family Practice [address], [place] 293 [facility], [place] [phone] Kristine Kan DO 293 [facility], [place] [address] Health Maintenance Due Date Last Done Comments COVID-19 Vaccine ( season) 2024 11/08/2023, 07/10/2022, 01/06/2022, Additional history exists GFR 08/31/2024 02/29/2024, 02/02, 02/07/2024, Additional history exists Albumin/Creatinine Ratio 09/02/2024 09/02/2023, 08/0 10/2021 CKD PHOS USE SMARTSET 94729 11/25/2024 11/25/2023, 0 12/05/2022 HbA1c 11/25/2024 11/25/2023, 11/04, 05/04/2022, Additional history exists CKD HGB USE SMARTSET 16130 02/28/202502/28, 02/29/2024, 02/21/2024, Additional history exists DXA [...] this encounter Medical Devices Implanted Type Area Partition Making Machine Operator Device Identifier Shelf Expiration Date Model / Serial / Lot Lens Intraoc 21.5 - [id number] - [id number] Implanted:Qty: 1 on 07/27/2019 by Tristian Araujo MD at OR [facility] Left: Eye BAUSCH & LOMB 04/02/2024 [id number] / [id number] / [id number] Lens Intraoc 21.5 - [id number] - [id number] Implanted:Qty: 1 on 08/08/2019 by Tristian Araujo MD at OR [facility] Right: Eye BAUSCH & LOMB 04/02/2024 [id number] / [id number] / [id number] Stent Axios [id number] - [id number] Implanted:Qty: 1 on 12/07/2022 by Tanya Morris MD at OR [facility] N/A: Abdomen [employer] : ENDOSCOPY [id number] 08/25/2023 [id number] / / [id number] Stent Bili Pigtail 7fr 100mm - [id number] Implanted:Qty: 1 on 12/07/2022 by Tanya Morris MD at OR [facility] N/A: Abdomen [employer] [id number] 08/03/2025 PBD-1033-0 710 / / 2YK Stent Bili Pigtail 7fr 100mm - [id number] Implanted:Qty: 1 on 12/07/2022 by Tanya Morris MD at OR [facility] N/A: Abdomen [employer] [id number] 08/03/2025 PBD-1033-0 710 / / 2YK Power Port 8fr Sngl Lumen Plas - [id number] Implanted:Qty: 1 on 12/29/2022 by Landon Hickman DO at OR [facility] Right: Chest CR BARD : PERIPHERAL VASCULAR [id number] 12/02/2023 [id number] / / [id number] Hanarostent Noncover 10dm 10cm - [id number] Implanted:Qty: 1 on 02/19/2023 by Tanya Morris MD at OR [facility] [employer] [id number] 12/31/2024 SHS-10-100 -180 / / [id number] documented as of this encounter Advance Directives * Full Code (Latest Code Status on File) Date Activated Date Inactivated Comments 12/04/2022 10:10 PM 12/08/2022 3:55 PM This order re flects the patients wishes and were consensually agreed upon. Question Answer Comments Discussion of Advance Directives occurred with: Patient Care Teams Land Title Examiner Relationship Specialty Start Date End Date Kristine Kan DO [address] [place] [address] PCP - General Family Medicine 12/18/22 documented as of this encounter
--- OUTSIDE RECORDS SUMMARY | 2024-06-07 05:33 | External Medical Summary | Summary of Care ---
Author Name Unknown Organization [facility] Address [address] [place] [address] Phone [phone] Care Team Providers Care Radar Engineering Teacher Name Role Phone Kristine Kan Primary Care Provider [phone] Reason for Visit * Reason Onset Date Comments Films 06/06/2024 Encounter Details Date Type Department Care Team (Late st Contact Info) Description 06/06/2024 Telephone Radiology [facility] [address] [place] [address] Support, Imaging Radiology [address] [place] [address] Films Allergies Active Allergy Reactions Criticality Noted Date [...] mcgIndications:Vitamin B 12 deficiency 1000 mcg IM [id number] 09/02/2023 08/03/2024 Active documented as of this [...] 30 Mcg, IM, 12 yrs and above ([employer]) 07/10/2022 H1N1 2009 Influenza, IM 11/20/2009 Hepatitis [...] encounter Miscellaneous Notes * Telephone Encounter - Rachel Oakes OSA - 06/06/2024 12:59 PM EDT [facility] Hematology Oncology Nurse requesting 03/28/24 Chest/Abdomen/Pelvis CT imaging be sent to [facility], stating they are sending her there to be seen. [place] Authorization to Release form on file. Imaging pushed through PACS to [facility]. documented in this encounter Plan of Treatment Upcoming Encounters Date Type Department Care Team (Late st Contact Info) Description 06/08/2024 11:00 AM EDT Imaging Radiology [address] 132 [facility] [place] [address] 06/12/2024 10:30 AM EDT Laboratory [facility] [address] [place], [place] [phone] Jessica, Lab Scenery 200 [facility] [place], [place] [address] 06/12/2024 11:00 AM EDT Office Visit Hematology/Oncology [facility] [place] [address] [place], [place] [phone] Hardik Gross MD 200 [facility] [place], [place] [address] 06/13/2024 1:00 PM EDT Hem/Onc Treatment Hematology/Oncology Treatment, [place] [address] [place], [place] [phone] Jessica, Chair 7 Hem Onc [facility] 200 [facility] [place], [place] [address] 07/10/2024 1:00 PM EDT Office Visit Family Practice [address], [place] 293 [place] [address] Kristine Kan DO 293 [place] [address] Health Maintenance Due Date Last Done Comments Adult Wellness Visit 2015 COVID-19 Vaccine ( season) 2024 11/08/2023, 07/10/2022, 01/06/2022, Additional history exists Influenza Vaccine (FLU shot) (#1) 2024 06/30/2023, 07/18/2022, 05/18/2021, Additional history exists Albumin/Creatinine Ratio 09/02/2024 09/02/2023, 0810/2021 Depression Monitoring 11/09/2024 11/09/2023 CKD PHOS USE SMARTSET 41055 11/25/2024 11/25/2023, 0 12/05/2022 HbA1c 11/25/2024 11/25/2023, 11/04, 05/04/2022, Additional history exists GFR 11/29/2024 05/29/2024, 05/04, 05/02/2024, Additional history exists CKD HGB USE SMARTSET 22115 05/29/202505/29, 05/29/2024, 05/24/2024, Additional history exists DXA [...] this encounter Medical Devices Implanted Type Area Medical Claims Representative Device Identifier Shelf Expiration Date Model / Serial / Lot Lens Intraoc 21.5 - [id number] - [id number] Implanted:Qty: 1 on 07/27/2019 by Tristian Araujo MD at OR [facility] Left: Eye BAUSCH & LOMB 04/02/2024 [id number] / [id number] / [id number] Lens Intraoc 21.5 - [id number] - [id number] Implanted:Qty: 1 on 08/08/2019 by Tristian Araujo MD at OR [facility] Right: Eye BAUSCH & LOMB 04/02/2024 [id number] / [id number] / [id number] Stent Axios 91gqz65lb - [id number] Implanted:Qty: 1 on 12/07/2022 by Tanya Morris MD at OR [facility] N/A: Abdomen [employer] : ENDOSCOPY [id number] 08/25/2023 [id number] / / [id number] Stent Bili Pigtail 7fr 100mm - [id number] Implanted:Qty: 1 on 12/07/2022 by Tanya Morris MD at OR [facility] N/A: Abdomen [employer] [id number] 08/03/2025 PBD-1033-0 710 / / [id number] Stent Bili Pigtail 7fr 100mm - [id number] Implanted:Qty: 1 on 12/07/2022 by Tanya Morris MD at OR [facility] N/A: Abdomen [employer] [id number] 08/03/2025 PBD-1033-0 710 / / 2YK Power Port 8fr Sngl Lumen Plas - [id number] Implanted:Qty: 1 on 12/29/2022 by Landon Hickman DO at OR [facility] Right: Chest CR BARD : PERIPHERAL VASCULAR [id number] 12/02/2023 [id number] / / [id number] Hanarostent Noncover 10dm 10cm - [id number] Implanted:Qty: 1 on 02/19/2023 by Tanya Morris MD at OR [facility] [employer] [id number] 12/31/2024 SHS-10-100 -180 / / [id number] documented as of this encounter Advance Directives * Full Code (Latest Code Status on File) Date Activated Date Inactivated Comments 12/04/2022 10:10 PM 12/08/2022 3:55 PM This order re flects the patients wishes and were consensually agreed upon. Question Answer Comments Discussion of Advance Directives occurred with: Patient Care Teams Radar Engineering Teacher Relationship Specialty Start Date End Date Kristine Kan DO [address] [place] [address] PCP - General Family Medicine 03/16/24 documented as of this encounter
[2024-06-07] MEDS: CEFEPIME 1,000 MG in SYRINGE 0 ML IV SCH (05:36)
[2024-06-07 05:49] LABS: Hematocrit (blood only) 26.7 % (37.0-47.0); Hemoglobin 8.7 g/dl (12.0-16.0); Mean Corpuscular Hemoglobin 33.6 pg (25.0-34.0); Mean Corpuscular Hgb Conc 32.6 g/dL (32.0-36.0); Mean Corpuscular Volume 103.1 fL (80.0-100.0); Mean Platelet Volume 9.4 fL (9.4-12.4); Platelet Count 176 K/uL (130-400); RDW Standard Deviation 63.7 fL (36.4-46.3); Red Blood Count 2.59 M/uL (4.20-5.40); White Blood Count 1.06 K/ul (4.8-10.8)
[2024-06-07 06:08] LABS: BUN Creatinine Ratio 42.2 (10-20); Calcium 7.3 mg/dl (8.6-10.3); Creatinine Clr Calc Pharmacy 29.4 ml/min; Est GFR (African American) 34.6 ml/min; Est GFR (Non-African American) 29.8 ml/min; Potassium 3.5 mmol/L (3.5-5.1)
[2024-06-07] MEDS: APIXABAN 5 MG TABLET PO SCH (08:53)
[2024-06-07] MEDS: VANCOMYCIN HCL 1,000 MG in SODIUM CHLORIDE 0.9% 250 ML IV ONE (08:53)
[2024-06-07] MEDS: CALCIUM 600MG + VIT D 400 IU TAB PO SCH (08:54)
[2024-06-07] MEDS: ATENOLOL 25 MG TABLET PO SCH (08:54)
--- NOTE | 2024-06-07 08:57 | Pharmacy Report ---
Pharmacy PK ABX Note - Date of Service June 07, 2024 - Assessment and Plan Assessment 74 year old F receiving empiric vancomycin and cefepime for possible sepsis (unknown source) in immunocompromised patient. 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 SCr of 2.36 mg/dL on presentation, now 1.66 mg/dL today. Baseline SCr in 2022 ~0.9-1 mg/dL. Pertinent microbiologic data includes: negative MRSA Nasal Swab, blood culture obtained/pending. Day # 2 of antimicrobial therapy. Plan Vancomycin * Dosing by random level at this time in light of resolving EUGENE * Received 1500 mg IV loading dose yesterday at 1922, random level this AM of 15.5 mcg/mL * Will give additional 1 g IV dose now and recheck random level in AM Pharmacy will continue to follow and will adjust dose/frequency as necessary. Thank you. Pharmacy has transitioned to AUC monitoring for vancomycin. AUC/LIZBET is the preferred PK/PD target and is associated with decreased risk of nephrotoxicity compared to traditional trough targets.
[2024-06-07] MEDS: MEGESTROL ACETATE SUSP 400 MG/10 ML UDC PO SCH (10:47)
--- NOTE | 2024-06-07 11:01 | Hospitalist Progress Note ---
Date of Service June 07, 2024 Assessment & Plan (1) Acute kidney injury superimposed on CKD: (2) Elevated lactic acid level: (3) Acute hyponatremia: (4) Adenocarcinoma of gallbladder: (5) History of DVT (deep vein thrombosis): (6) Anxiety: Plan This is a 74yo F with a PMH of adenocarcinoma of gallbladder on FOLFOX, HTN, h/o DVT on Eliquis, CKD III, h/o breast cancer, hypothyroidism, prediabetes and other medical problems listed below who presents with generalized weakness and poor appetite x 1 week and was found to have EUGENE superimposed on CKD. EUGENE superimposed on CKD 2/2 decreased oral intake/possible infection following chemo tx 05/30 Creatinine 2.36 on admission (previously 1.7 eight days prior) Given 2L NSS in ED, continued maintenance fluid Nephrology consulted, appreciate recs Continue to monitor, improving Generalized weakness Hyponatremia Na 129 on admission Likely in setting of poor PO intake Expect improvement with fluids Nephrology consulted as above Continue to monitor, improving PT/OT, fall precautions Lactic acidosis Possible sepsis Lactate initially 4.4 ->normalized to 2.0 with fluids Chest XRAY with no acute infection UA unremarkable respiratory testing pending MRSA nares negative Blood Cx x1 set pending Continue empiric Cefepime Continue to monitor Adenocarcinoma of gallbladder Last FOLFOX treatment 05/[address] Ginny Nixon Megaelisabeth H/o DVT Continue Eliquis HTN (hypertension) Continue atenolol History of breast cancer S/p left partial mastectomy, XRT, 5 years of tamoxifen completed in August 2022 Restless legs syndrome (RLS) Clonazepam HS PRN Diet: HH/DMII DVT Ppx: Eliquis Code status: FULL PCP: Loreta Dispo: PT/OT ordered for further ecs Admission and Anticipated Discharge Date Admission Date: June 06, 2024 Subjective Pt was seen with family at bedside, and daughter. States having lower abd pain. Still feeling weak and tired. Review of Systems Review of Systems: All systems reviewed & are unremarkable except as noted in Subjective Physical Exam Physical Exam: General: Alert, oriented Psych: Appropriate mood and affect Neuro: weakness HEENT: NC/AT CV: RRR Resp: no increased effort of breathing Abdomen: Soft, tender in lower abdomen Extremities: No edema in lower extremities bilaterally. Results & Data Results & Data Vital Signs (Past 12 Hours) Vital Signs Temp Pulse Pulse Resp BP Pulse Ox O2 Del Method 06/07/24 07:45 77 06/07/24 07:31 36.3 C L 78 16 114/82 99 Room Air 06/07/24 03:28 36.4 C L 73 16 140/68 100 Room Air 06/07/24 00:36 73 06/06/24 23:03 36.7 C 72 16 104/72 100 Room Air
[2024-06-07] MEDS: SODIUM CHLORIDE 0.9% 1,000 ML IV SCH (11:15)
--- NOTE | 2024-06-07 13:40 | Electrocardiogram Report ---
Test Reason : Blood Pressure : */* mmHG Vent. Rate : 95 BPM Atrial Rate : 95 BPM P-R Int : 158 ms QRS Dur : 84 ms QT Int : 346 ms P-R-T Axes : 77 14 80 degrees QTcB Int : 434 ms Normal sinus rhythm Normal ECG No previous ECGs available Confirmed by Jimmy Trejo ([id number]) on 06/07/2024 1:40:25 PM Referred By: Hardik Alexanderon Confirmed By: Jimmy Trejo
[2024-06-07 20:21] LABS: Influenza A virus by PCR Negative (Neg); Influenza B virus by PCR Negative (Neg); RSV by PCR Negative (Neg); SARS CoV2 RNA(COVID-19) Ceph NEGATIVE (Negative)
[2024-06-08] MEDS: ACETAMINOPHEN 325 MG TAB PO PRN (05:27)
[2024-06-08 07:39] LABS: Calcium 7.2 mg/dl (8.6-10.3); Magnesium 2.4 mg/dl (1.7-2.4); Potassium 3.4 mmol/L (3.5-5.1)
[2024-06-08 07:45] LABS: BUN Creatinine Ratio 49.6 (10-20); Creatinine Clr Calc Pharmacy 37.7 ml/min; Est GFR (African American) 46.9 ml/min; Est GFR (Non-African American) 40.5 ml/min; Phosphorus 2.4 mg/dl (2.5-4.9)
[2024-06-08] MEDS ORDERED: POTASSIUM PHOS 3 MMOL/1 ML INFUSION IV STA (07:48)
[2024-06-08] MEDS: CALCIUM GLUCONATE 1,000 MG/60 ML BAG IV SCH (08:33)
[2024-06-08] MEDS: POTASSIUM PHOSPHATE 15 MMOL in SODIUM CHLORIDE 0.9% 250 ML IV ONE (08:33)
[2024-06-08 08:50] LABS: Dohle Bodies 1+; Immature Granulocytes # (auto) 0.01 K/uL (0.01-0.20); Immature Granulocytes % (auto) 1.1 %; Lymphocytes # (auto) 0.43 K/uL (1.20-3.40); Lymphocytes % (auto) 48.9 %; Mean Corpuscular Hemoglobin 34.5 pg (25.0-34.0); Mean Corpuscular Hgb Conc 33.3 g/dL (32.0-36.0); Mean Corpuscular Volume 103.4 fL (80.0-100.0); Mean Platelet Volume 9.8 fL (9.4-12.4); Monocytes % (auto) 22.7 %; Neutrophils # (auto) 0.24 K/uL (1.40-6.50); Neutrophils % (auto) 27.3 %; Nucleated RBC # (auto) 0.02 K/uL (0.00-0.12); Nucleated RBC % (auto) 2.3 %; Ovalocytes 1+; Platelet Count 137 K/uL (130-400); RDW Coefficient of Variation 16.8 % (11.5-14.5); RDW Standard Deviation 63.8 fL (36.4-46.3); Red Blood Count 2.61 M/uL (4.20-5.40); Tear Drop Cells 1+; Toxic Granulation 2+; White Blood Count 0.88 K/ul (4.8-10.8)
[2024-06-08] MEDS: POTASSIUM CHLORIDE CRTAB 20 MEQ TABCR PO STA (09:20)
--- NOTE | 2024-06-08 11:37 | Hospitalist Progress Note ---
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 Bowel Obstruction CT adb/pelvis noting transition point suggestive of obstruction Follow up KUB noting persistence of bowel obstruction Pt NPO, IV fluids, IV antiemetics, IV pain meds General surgery consulted, appreciate recs -recommended GI consult, ordered -recommended oncology consult, ordered inpt and pt's outpt oncologist on board as well -recommended palliative care consult. Per pt and on further discussion, "we're not there yet" Continue to monitor Adenocarcinoma of gallbladder Last FOLFOX treatment 05/[address] Ginny Olivera 06/08- pt's family demanding chemotherapy reversal within 90 hours stating that their google research showed that pt is likely experiencing "toxic shock" related to her use of 5FU for chemotherapy. Would like a stat oncology consult. [facility] Oncology consulted. Further discussion with both pt's outpt oncologist Dr Gross via tigertext and via phone and inpt consult oncologist, who both state that pt is not in toxic shock and does not require chemo reversal. They state that is only done in extreme cases and usually in the ICU. As above GI consult for further recs per General Surgery. Neutropenia Lactic acidosis Possible sepsis Pt with progressing neutropenia, in the setting of recent chemotherapy Lactate initially 4.4 on admission ->normalized to 2.0 with fluids Chest XRAY with no acute infection UA unremarkable respiratory testing negative MRSA nares negative Blood Cx x1 set NGTD Continue empiric Cefepime Per [employer] Developer/Oncologist Dr Christie on 06/08, start neupogen 480 mcg subcu for neutropenia for 3 days Continue to monitor EUGENE superimposed on CKD 2/2 decreased oral intake/possible infection following chemo tx 05/30 Creatinine 2.36 on admission (previously 1.7 eight days prior) Given 2L NSS in ED, continued maintenance fluid Nephrology consulted, appreciate recs Continue to monitor, improving Generalized weakness Hyponatremia Na 129 on admission Likely in setting of poor PO intake Expect improvement with fluids Nephrology consulted as above Continue to monitor, improving PT/OT, fall precautions Hypokalemia Hypocalcemia Hypophosphatemia Replete as needed Malnutrition Likely in setting of above Final Inspector consult H/o DVT Continue Eliquis HTN (hypertension) Continue atenolol History of breast cancer S/p left partial mastectomy, XRT, 5 years of tamoxifen completed in August 2022 Restless legs syndrome (RLS) Clonazepam HS PRN Diet: HH/DMII DVT Ppx: Eliquis Code status: FULL PCP: Loreta Dispo: PT/OT ordered for further ecs Admission and Anticipated Discharge Date Admission Date: June 06, 2024 Subjective Pt was seen with family at bedside, multiple times during the day. In the AM, and daughter anxious about starting "chemo reversal". They state that they believe she is in toxic shock and needs the reversal as this happens after she gets the 5 cycles of 5FU. Later pt with worsening abd pain, KUB noting bowel obstruction. General Surgery consulted and recommending palliative care consult as well as GI. Discussed with pt and family, per regarding palliative care consult "we're not there yet" Pt's oncologist Dr Gross aware, stated he does not believe pt is in toxic shock and recommended inpatient [facility] consultation. Review of Systems Review of Systems: All systems reviewed & are unremarkable except as noted in Subjective Physical Exam Physical Exam: General: Alert, oriented Psych: Appropriate mood and affect Neuro: weakness HEENT: NC/AT CV: RRR Resp: no increased effort of breathing Abdomen: Soft, tender in lower abdomen Extremities: No edema in lower extremities bilaterally. Results & Data Results & Data Vital Signs (Past 12 Hours) Vital Signs Temp Pulse Pulse Resp BP Pulse Ox O2 Del Method 06/08/24 11:00 36.4 C L 86 16 105/75 100 Room Air 06/08/24 07:42 36.3 C L 85 16 107/74 100 Room Air 06/08/24 03:15 36.4 C L 84 18 125/84 98 Room Air 06/08/24 02:01 84 Diagnostic Findings Chest X-Ray 06/06/24 14:38 XR chest 1V portable CLINICAL HISTORY: Sepsis. COMPARISON STUDY: No previous studies for comparison. FINDINGS: A right internal jugular [id number] is in place. Lung volumes are n ormal. Lungs are clear. There is no pneumothorax or pleural effusion. Cardiac size is normal. Mediastinal contours are normal. There is no evidence for pulmonary edema. IMPRESSION: No acute cardiopulmonary findings. ACT 112: Negative or not required by law. Electronically signed by: Jerel Jones M.D. 06/06/2024 4:51 PM Abdomen/Pelvis CT 06/06/24 16:21 CT abd pelvis wo con CLINICAL HISTORY: worsening abd pain w/ cancer not eating or drinkin TECHNIQUE: Helical axial images of the abdomen and pelvis were obtained. Automated dose lowering techniques and/or adjustment according to patient size were utilized for this exam. This exam was performed without intravenous contrast. CT DOSE: 972.47 mGy.cm COMPARISON: Comparison is made to CT abdomen pelvis 12/03/2022 FINDINGS: Lower chest: No acute abnormality. Liver: Unremarkable. No focal lesions are seen. Gallbladder and biliary tree: Postsurgical change is seen with a complex cyst mass remaining in the gallbladder fossa. No biliary seen with a common bile duct stent in place. Pancreas: Unremarkable, no focal lesions. Spleen: Unremarkable. Adrenals: Unremarkable. Kidneys and ureters: Renal cysts are seen. Bladder: Limited evaluation due to underdistention. Reproductive organs: Incidental note is made of calcified fibroid. Bowel: Diverticulosis is seen without evidence of diverticulitis. There is prominence of the cecum with a transition point near the hepatic flexure. Of note, there is no clear fat plane separation between the hepatic flexure and the gallbladder fossa density. There is also prominence of multiple loops of terminal ileum measuring up to 36 mm. Gastroenteric drain is seen. Lymph nodes Retroperitoneal: Unremarkable. Pelvic: Unremarkable. Mesenteric: Unremarkable. Peritoneum: Normal. Vessels: Unremarkable. Abdominal wall: Unremarkable. Bones: Degenerative changes in the visualized spine. IMPRESSION: 1. There is enlargement of the cecum and terminal ileum with normal caliber bowel at the transverse and descending colon. There is likely involvement of the hepatic flexure with the gallbladder mass. 2. Decreased size of complex mass in the gallbladder. Interval placement of gastroenteric drain and biliary stents. 3. Additional findings as above. ACT 112: Negative or not required by law. Electronically signed by: Benji Fernandez M.D. 06/06/2024 5:32 PM KUB X-Ray 06/08/24 11:50 KUB HISTORY: Acute generalized abdominal pain with nausea abd pain, nausea COMPARISON: CT 06/06/2024 FINDINGS: Common bile duct stent. Metallic device projects over the stomach. There are numerous dilated air-filled loops of small bowel measuring up to 3.2 cm. No renal calculi. No ureteral calculi. No pneumoperitoneum or pneumatosis. No fracture. IMPRESSION: Persistent small bowel dilation suggestive of obstruction. On yesterday's CT abdomen and pelvis study a partial large and small bowel obstruction is suggested with transition point at the hepatic flexure secondary to the infiltrative avis hepatis mass. ACT 112: Negative or not required by law. The above report was generated using voice recognition software. It may contain grammatical, syntax or spelling errors. Electronically signed by: Meng Lester M.D. 06/08/2024 1:09 PM
--- NOTE | 2024-06-08 12:42 | Nephrology Consultation ---
Date of Consultation June 08, 2024 Assessment & Plan (1) Acute kidney injury superimposed on CKD: she gets lots of labs as an outpatient through Oncology office and her recent creatinine has been in the 1.5-1.7 range. on admission slightly higher at 2.36 but with IV fluid it is now 1.29 which is actually better than her recent baseline. patient does appear weak and tired and does not seem to be eating much so most likely this was prerenal type of acute kidney injury. and with adequate hydration it might actually be completely normal. family thinks patient is having toxicity of 5 fluorouracil and wants her to have the antidote. Renal failure is not the typical feature of 5 fluorouracil toxicity and in any case EUGENE was prerenal type and has already improved and better than baseline with IV fluid. from my understanding cardiac issues is the main Feature of 5 fluorouracil toxicity which she does not really have but this is not my area of expertise and will defer to the appropriate specialist and the primary team. her oncologist Dr. Gross is already aware of the situation and further plan regarding antidote is up to him. from renal standpoint there is very high chance that her kidney function will get worse again from prerenal state because even now she is barely eating anyt ino. As an outpatient I would consider giving her IV fluid on a regular basis through Oncology. (2) Acute hyponatremia: nutritional type with volume deficiency and has normalized with use of normal saline. No further action needed. patient does seem to have very poor nutrition and appears to be barely eating and is very weak. given this I will not be surprised if she has similar situation again Plan case complexity high given the question of 5 fluorouracil toxicity. I did review Hematology Oncology note in detail from outpatient. 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 Patient presented 2 days ago with with generalized weakness, decreased appetite since last few days. Her last chemotherapy was on 05/30. Reports feeling weak for 2 days usually after completion of chemotherapy. However, her weakness has persisted. She denies any fever, chills, sore throat, chest pain, shortness of breath or abdominal pain. The on admission creatinine was slightly higher than baseline at 2.36 but already down to 1.29 in 2 days after IV fluids sodium was also slightly low but since then normalized with normal saline. her last outpatient labs showed a serum sodium 139 and creatinine of 1.7. In fact most of her outpatient creatinine is in the 1.5-1.7 range and she gets lots of labs through Oncology. she is making urine. Blood pressure was slightly low in the 90s systolic on admission but since then has improved and she is not in any shortness of breath. patient family is concerned that patient is having toxicity of 5 fluorouracil although we are not really seeing any cardiac issues at this time. her oncologist Dr. Gardiner has been informed and is aware of the situation review of systems not possible to obtain as patient barely opens her eyes and quickly closed her eyes after telling me her name physical examination frail elderly white female who is not in any respiratory distress but she is very weak and tired and sleepy. She opens her eyes briefly to answer her name bilateral decreased breath sound but barely had any inspiratory effort so limited quality exam CVS S1 and S2 regular soft systolic murmur heard. No edema abdomen is soft nontender extremities shows no edema no obvious skin rash neurologically-- very somnolent with eyes closed and did not answer my question. but on observation she is moving all 4 extremities Allergies Allergy/AdvReac Type Severity Reaction Status Date / Time latex Allergy Mild Rash Verified 03/02/24 10:30 sulfamethoxazole Allergy Unknown SWELLING Verified 03/02/24 10:30 ON FACE AND LIPS trimethoprim Allergy Unknown SWELLING Verified 03/02/24 10:30 ON FACE AND LIPS cayenne pepper fruits AdvReac Unknown "spicy Verified 06/06/24 22:25 foods" cause swelling metformin AdvReac Unknown mood Verified 03/02/24 10:30 disorder per [facility] record Home Medications Medication Instructions Recorded Confirmed Type calcium carbonate 600 mg-vitamin 1 cap PO DAILY 04/08/22 06/06/24 History D3 12.5 mcg (500 unit) capsule (Calcium 600 with Vitamin D3) atenolol 25 mg tablet 12.5 mg PO DAILY 12/03/22 06/06/24 History clonazepam 0.5 mg tablet 0.5 mg PO HS PRN anxiety or sleep 12/03/22 06/06/24 History magnesium 200 mg tablet 400 mg PO 2XD 06/29/23 06/06/24 History apixaban 5 mg tablet (Eliquis) 5 mg PO BID 06/06/24 06/06/24 History megestrol 625 mg/5 mL (125 mg/mL) 2 ml PO DAILY 06/06/24 06/06/24 History oral suspension prochlorperazine maleate 10 mg 10 mg PO Q6H PRN Nausea 06/06/24 06/06/24 History tablet Patient History Medical History History of DVT (deep vein thrombosis) Adenocarcinoma of gallbladder Restless legs syndrome (RLS) Anxiety 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) HTN (hypertension) Surgical History H/O partial mastectomy Family History Other Breast cancer Hypertension Social History Smoking Status: Never smoker Hx Alcohol Use: No Hx Substance Use: No Preferred Language: Malay Communication Ability: Effective 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: No Beliefs That Will Affect Care: Amish Current Living Situation: Spouse Current Living Situation Comment: Lives at home Other Information That Helps Us Care for You: No Feels Safe at Home: Yes Safety Concerns: Feels Safe At This Time Assistive Devices: Other Results & Data Vital Signs (Past 12 Hours) Vital Signs Temp Pulse Pulse Resp BP Pulse Ox O2 Del Method 06/08/24 11:00 36.4 C L 86 16 105/75 100 Room Air 06/08/24 07:42 36.3 C L 85 16 107/74 100 Room Air 06/08/24 03:15 36.4 C L 84 18 125/84 98 Room Air 06/08/24 02:01 84 Laboratory Results reviewed CBC renal panel urine test x-ray Diagnostic Findings CT abdomen and pelvis was reviewed in detail and multiple abnormalities related with her underlying cancer noted and reviewed
--- NOTE | 2024-06-08 13:11 | XRay Report ---
KUB HISTORY: Acute generalized abdominal pain with nausea abd pain, nausea COMPARISON: CT 06/06/2024 FINDINGS: Common bile duct stent. Metallic device projects over the stomach. There are numerous dilat ed air-filled loops of small bowel measuring up to 3.2 cm. No renal calculi. No ureteral calculi. No pneumoperitoneum or pneumatosis. No fracture. IMPRESSION: Persistent small bowel dilation suggestive of obstruction. On yesterday's CT abdomen and pelvis study a partial large and small bowel obstruction is suggested with transition point at the hepatic flexur e secondary to the infiltrative avis hepatis mass. ACT 112: Negative or not required by law. The above report was generated using voice recognition software. It may contain grammatical, syntax o r spelling errors. Electronically signed by: Meng Lester M.D. 06/08/2024 1:09 PM
[2024-06-08] MEDS: SODIUM CHLORIDE 0.9% 1,000 ML IV SCH (14:31)
--- NOTE | 2024-06-08 16:21 | Surgery Consultation ---
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 CT scan showing large bowel transition point at hepatic flexure without fat plan suggesting extensive of gallbladder mass into the colon causing partial obstruction. No acute surgical intervention. Recommend npo, iv fluids, antiemetics, conservative management. Given complexity of situation and patient current status, would recommend palliative and oncology consultation inpatient to discuss goals of care and prognosis going forward. Would also recommend GI consultation for evaluation of feasability of possible colonic stent placement for the large bowel obstruction? Dr. Garcia has seen and examined pt, see addendum for further recommendations/plan. Supervising Physician Co-Signing Physician Notes I seen and examined the patient personally and agree with the above assessment and plan. In brief, this is a 74-year-old woman with adenocarcinoma of the gall bladder, nonresectable, on FOLFOX. She presents with generalized weakness and dehydration On CT scan she has noted to have a at least partial blockage of her hepatic flexure. This is a very complex situation, and I would like for oncology and palliative care to weigh in on the situation. We will have GI consulted for the potential for a stent placement. she may benefit from ileostomy, however this would not be easy for her to take care of given her activities of daily living index. 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 Limited ROS from patient, and daughter in room. Has been underlying chemotherapy with FOLFOX and had 4 cycles recently and is now very weak with low appetite. CT scan in emergency department showing partial large bowel obstruction at hepatic flexure with concern for possible mass effect vs extensive of mass into the colon. She has not been having very many bowel movements and is nauseated and has hiccups. Dr. Gross is her oncologist who is aware she is here at hospital. states that they previously had discussion with Dr. Arias regarding her cancer and was told that it was not operable. Per patients ,last CT scan showed decreased size of the gallbladder mass. Allergies Allergy/AdvReac Type Severity Reaction Status Date / Time latex Allergy Mild Rash Verified 03/02/24 10:30 sulfamethoxazole Allergy Unknown SWELLING Verified 03/02/24 10:30 ON FACE AND LIPS trimethoprim Allergy Unknown SWELLING Verified 03/02/24 10:30 ON FACE AND LIPS cayenne pepper fruits AdvReac Unknown "spicy Verified 06/06/24 22:25 foods" cause swelling metformin AdvReac Unknown mood Verified 03/02/24 10:30 disorder per [facility] record Home Medications Medication Instructions Recorded Confirmed Type calcium carbonate 600 mg-vitamin 1 cap PO DAILY 04/08/22 06/06/24 History D3 12.5 mcg (500 unit) capsule (Calcium 600 with Vitamin D3) atenolol 25 mg tablet 12.5 mg PO DAILY 12/03/22 06/06/24 History clonazepam 0.5 mg tablet 0.5 mg PO HS PRN anxiety or sleep 12/03/22 06/06/24 History magnesium 200 mg tablet 400 mg PO 2XD 06/29/23 06/06/24 History apixaban 5 mg tablet (Eliquis) 5 mg PO BID 06/06/24 06/06/24 History megestrol 625 mg/5 mL (125 mg/mL) 2 ml PO DAILY 06/06/24 06/06/24 History oral suspension prochlorperazine maleate 10 mg 10 mg PO Q6H PRN Nausea 06/06/24 06/06/24 History tablet Patient History Medical History History of DVT (deep vein thrombosis) Adenocarcinoma of gallbladder Restless legs syndrome (RLS) Anxiety 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) HTN (hypertension) Surgical History H/O partial mastectomy Family History Other Breast cancer Hypertension Social History Smoking Status: Never smoker Hx Alcohol Use: No Hx Substance Use: No Preferred Language: French Communication Ability: Effective Prototype Sewer Required: No Beliefs That Will Affect Care: Rastafarian Current Living Situation: Spouse Current Living Situation Comment: Lives at home Other Information That Helps Us Care for You: No Feels Safe at Home: Yes Safety Concerns: Feels Safe At This Time Assistive Devices: Other Review of Systems Review of Systems: All systems reviewed & are unremarkable except as noted in HPI & below Physical Exam Constitutional: + frail appearing and + lethargic; no ac zora distress lying in bed, no distress but looks frail and fatigued. Respiratory: normal respiratory effort; no respiratory distress, no labored breathing and no retractions Gastrointestinal (Abdomen): Inspection/Auscultation: abdomen normal to inspection; abdomen not distended Percussion/Palpation: + abdomen tender (right upper abdomen) and abdomen soft; no guarding, abdomen not rigid and abdomen not firm Skin: no rashes, warm and dry Psychiatric: Orientation: alert and oriented x 3 Results & Data Vital Signs (Past 12 Hours) Vital Signs Temp Pulse Pulse Resp BP Pulse Ox O2 Del Method 06/08/24 15:03 36.5 C 90 16 111/76 99 Room Air 06/08/24 11:00 36.4 C L 86 16 105/75 100 Room Air 06/08/24 07:42 36.3 C L 85 16 107/74 100 Room Air 06/08/24 05:38 84 Laboratory Results 06/08/24 06/07/24 06/07/24 Range/Units 07:07 12:15 12:15 WBC 0.88 L* (4.8-10.8) K/ul RBC 2.61 L (4.20-5.40) M/uL Hgb 9.0 L (12.0-16.0) g/dl Hct 27.0 L (37.0-47.0) % MCV 103.4 H (80.0-100.0) fL MCH 34.5 H (25.0-34.0) pg MCHC 33.3 (32.0-36.0) g/dL RDW Std Deviation 63.8 H (36.4-46.3) fL RDW Coeff of Vicky 16.8 H (11.5-14.5) % Plt Count 137 (130-400) K/uL MPV 9.8 (9.4-12.4) fL Immature Gran % (Auto) 1.1 % Neut % (Auto) 27.3 % Lymph % (Auto) 48.9 % [place] % (Auto) 22.7 % Eos % (Auto) 0.0 % Baso % (Auto) 0.0 % Neut # (Auto) 0.24 L* (1.40-6.50) K/uL Lymph # (Auto) 0.43 L (1.20-3.40) K/uL [place] # (Auto) 0.20 (0.11-0.59) K/uL Eos # (Auto) 0.00 (0.00-0.50) K/uL Baso # (Auto) 0.00 (0.00-0.20) K/uL Immature Gran # (Auto) 0.01 (0.01-0.20) K/uL Absolute Nucleated RBC 0.02 (0.00-0.12) K/uL Nucleated RBC % (auto) 2.3 % Toxic Granulation 2+ Dohle Bodies 1+ Tear Drop Cells 1+ Ovalocytes 1+ Sodium 135 L (136-145) mmol/L Potassium 3.4 L (3.5-5.1) mmol/L Chloride 108 H (98-107) mmol/L Carbon Dioxide 20 L (21-32) mmol/L Anion Gap 7 (3-11) BUN 64 H (6-23) mg/dl Creatinine 1.29 H D (0.6-1.2) mg/dl Est Cr Clr Drug Dosing 37.7 ml/min Est GFR ( Amer) 46.9 ml/min Est GFR (Non-Af Amer) 40.5 ml/min BUN/Creatinine Ratio 49.6 H (10-20) Glucose 200 H (70-99(Fasting)) mg/dl Calcium 7.2 L (8.6-10.3) mg/dl Ionized Calcium 1.11 L (1.12-1.32) mmol/L Phosphorus 2.4 L (2.5-4.9) mg/dl Magnesium 2.4 (1.7-2.4) mg/dl SARS-CoV-2 (PCR) NEGATIVE (Negative) Influenza A (RT-PCR) Cancelled Influenza Type A (PCR) Negative (Neg) Influenza B (RT-PCR) Cancelled Influenza Type B (PCR) Negative (Neg) RSV (RT-PCR) Negative Cancelled SARS-CoV-2 RNA (RT-PCR) Cancelled Diagnostic Findings CT abd pelvis wo con CLINICAL HISTORY: worsening abd pain w/ cancer not eating or drinkin TECHNIQUE: Helical axial images of the abdomen and pelvis were obtained. Automated dose lowering techniques and/or adjustment according to patient size were utilized for this exam. This exam was performed without intravenous contrast. CT DOSE: 972.47 mGy.cm COMPARISON: Comparison is made to CT abdomen pelvis 12/03/2022 FINDINGS: Lower chest: No acute abnormality. Liver: Unremarkable. No focal lesions are seen. Gallbladder and biliary tree: Postsurgical change is seen with a complex cyst mass remaining in the gallbladder fossa. No biliary seen with a common bile duct stent in place. Pancreas: Unremarkable, no focal lesions. Spleen: Unremarkable. Adrenals: Unremarkable. Kidneys and ureters: Renal cysts are seen. Bladder: Limited evaluation due to underdistention. Reproductive organs: Incidental note is made of calcified fibroid. Bowel: Diverticulosis is seen without evidence of diverticulitis. There is prominence of the cecum with a transition point near the hepatic flexure. Of note, there is no clear fat plane separation between the hepatic flexure and the gallbladder fossa density. There is also prominence of multiple loops of terminal ileum measuring up to 36 mm. Gastroenteric drain is seen. Lymph nodes Retroperitoneal: Unremarkable. Pelvic: Unremarkable. Mesenteric: Unremarkable. Peritoneum: Normal. Vessels: Unremarkable. Abdominal wall: Unremarkable. Bones: Degenerative changes in the visualized spine. IMPRESSION: 1. There is enlargement of the cecum and terminal ileum with normal caliber bowel at the transverse and descending colon. There is likely involvement of the hepatic flexure with the gallbladder mass. 2. Decreased size of complex mass in the gallbladder. Interval placement of gastroenteric drain and biliary stents. 3. Additional findings as above. KUB HISTORY: Acute generalized abdominal pain with nausea abd pain, nausea COMPARISON: CT 06/06/2024 FINDINGS: Common bile duct stent. Metallic device projects over the stomach. There are numerous dilated air-filled loops of small bowel measuring up to 3.2 cm. No renal calculi. No ureteral calculi. No pneumoperitoneum or pneumatosis. No fracture. IMPRESSION: Persistent small bowel dilation suggestive of obstruction. On yesterday's CT abdomen and pelvis study a partial large and small bowel obstruction is suggested with transition point at the hepatic flexure secondary to the infiltrative avis hepatis mass.
--- NOTE | 2024-06-08 16:53 | Oncology Consultation ---
Date of Consultation June 08, 2024 Assessment & Plan (1) Chemotherapy induced neutropenia: had a lengthy discussion with the patient's family as well as with the hospital internal medicine physician. At this point will recommend continued use of broad-spectrum antibiotics as well as growth factors in the form of Neupogen to facilitate early neutrophil recovery and minimizing complication. Counseled to the patient's family that this approach does not really improve the overall mortality just helps shorten the duration of neutropenia and the associated complications they understood. This was discussed with the hospital internal medicine DrAndres And Neupogen was started (2) Adenocarcinoma of gallbladder: . Explained to the patient that the patient has incurable cancer. At this point no active intervention is warranted oncologically while in the hospital. The patient will resume treatment once discharged and follows up with Dr. Gross (3) Large bowel obstruction: management per surgery colleagues. Conservative management has been recommended Plan medical oncology will continue to follow the patient make appropriate recommendation thank you for this interesting hematological consult. 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 Gross for adenocarcinoma of the bladder with FOLFOX. She has been admitted with acute kidney injury. Medical oncology has been consulted to assist in management of this patient who is on chemotherapy and currently has diarrhea some intermittent abdominal pain also decreased appetite and nausea. The patient is also leukopenic with a WBC count of 0.88 and a neutrophil count of 0.24. I do not have the latest records from [facility] we will try to get the latest hematology oncology records. During this time while the patient is admitted to the hospital we have also noticed large bowel obstruction. Surgery has been consulted and has recommended palliative measures. medical oncology has been consulted to assist in management of this patient with chemotherapy induced neutropenia, cholangiocarcinoma and large bowel obstruction. During my visit the patient was lethargic, she had mild abdominal tenderness. Reported no fever or chills. Ported no nausea vomiting. Allergies Allergy/AdvReac Type Severity Reaction Status Date / Time latex Allergy Mild Rash Verified 03/02/24 10:30 sulfamethoxazole Allergy Unknown SWELLING Verified 03/02/24 10:30 ON FACE AND LIPS trimethoprim Allergy Unknown SWELLING Verified 03/02/24 10:30 ON FACE AND LIPS cayenne pepper fruits AdvReac Unknown "spicy Verified 06/06/24 22:25 foods" cause swelling metformin AdvReac Unknown mood Verified 03/02/24 10:30 disorder per [facility] record Home Medications Medication Instructions Recorded Confirmed Type calcium carbonate 600 mg-vitamin 1 cap PO DAILY 04/08/22 06/06/24 History D3 12.5 mcg (500 unit) capsule (Calcium 600 with Vitamin D3) atenolol 25 mg tablet 12.5 mg PO DAILY 12/03/22 06/06/24 History clonazepam 0.5 mg tablet 0.5 mg PO HS PRN anxiety or sleep 12/03/22 06/06/24 History magnesium 200 mg tablet 400 mg PO 2XD 06/29/23 06/06/24 History apixaban 5 mg tablet (Eliquis) 5 mg PO BID 06/06/24 06/06/24 History megestrol 625 mg/5 mL (125 mg/mL) 2 ml PO DAILY 06/06/24 06/06/24 History oral suspension prochlorperazine maleate 10 mg 10 mg PO Q6H PRN Nausea 06/06/24 06/06/24 History tablet Patient History Medical History History of DVT (deep vein thrombosis) Adenocarcinoma of gallbladder Restless legs syndrome (RLS) Anxiety 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) HTN (hypertension) Surgical History H/O partial mastectomy Family History Other Breast cancer Hypertension Social History Smoking Status: Never smoker Hx Alcohol Use: No Hx Substance Use: No Preferred Language: Kyrgyz Communication Ability: Effective Certified Drug Counselor Required: No Beliefs That Will Affect Care: Anabaptism Current Living Situation: Spouse Current Living Situation Comment: Lives at home Other Information That Helps Us Care for You: No Feels Safe at Home: Yes Safety Concerns: Feels Safe At This Time Assistive Devices: Other Review of Systems Review of Systems: Review of system could not be obtained as the patient was asleep Constitutional: as per Subjective / HPI Eyes: as per Subjective / HPI Ear, Nose, Mouth, Throat: as per Subjective / HPI Respiratory: as per Subjective / HPI Cardiovascular: as per Subjective / HPI Gastrointestinal: as per Subjective / HPI Genitourinary: as per Subjective / HPI Musculoskeletal: as per Subjective / HPI Integumentary: as per Subjective / HPI Neurologic: as per Subjective / HPI Psychiatric: as per Subjective / HPI Endocrine: as per Subjective / HPI Hematologic / Lymphatic: as per Subjective / HPI Allergy / Immunological: as per Subjective / HPI Physical Exam Constitutional: WD/WN, vitals as above Eyes: PERRL, conjunctivae normal, anicteric sclerae ENMT: external ear and nose normal, oropharynx normal Neck: trachea midline, no thyromegaly Respiratory: normal respiratory effort, lungs clear to auscultation Cardiovascular: RRR, no murmur, no edema Gastrointestinal (Abdomen): normal bowel sounds, soft, nontender, no hepatosplenomegaly Musculoskeletal: no cyanosis or clubbing, extremities motor strength 5/5 Skin: no rashes, warm and dry Neurologic: patellar DTR's 2+ bilat, sensation intact Psychiatric: A+Ox3, euthymic affect Results & Data Vital Signs (Past 12 Hours) Vital Signs Temp Pulse Pulse Resp BP Pulse Ox O2 Del Method 06/08/24 15:03 36.5 C 90 16 111/76 99 Room Air 06/08/24 11:00 36.4 C L 86 16 105/75 100 Room Air 06/08/24 07:42 36.3 C L 85 16 107/74 100 Room Air 06/08/24 05:38 84
[2024-06-08] MEDS ORDERED: AMOXICILLIN/CLAVULANATE 875 MG TAB PO SCH (17:00)
[2024-06-08] MEDS ORDERED: ACETAMINOPHEN 1,000 MG/100 ML VIAL IV PRN (18:48)
[2024-06-08] MEDS: FILGRASTIM 480 MCG/1.6 ML VIAL SC SCH (21:21)
[2024-06-09 07:31] LABS: Hemoglobin 8.2 g/dl (12.0-16.0); Mean Corpuscular Hgb Conc 32.8 g/dL (32.0-36.0); Mean Corpuscular Volume 103.7 fL (80.0-100.0); Mean Platelet Volume 10.5 fL (9.4-12.4); Platelet Count 83 K/uL (130-400); RDW Coefficient of Variation 17.4 % (11.5-14.5); RDW Standard Deviation 66.6 fL (36.4-46.3); Red Blood Count 2.41 M/uL (4.20-5.40)
[2024-06-09 07:32] LABS: BUN Creatinine Ratio 44.8 (10-20); Calcium 7.3 mg/dl (8.6-10.3); Creatinine Clr Calc Pharmacy 41.9 ml/min; Est GFR (African American) 53.3 ml/min; Magnesium 2.2 mg/dl (1.7-2.4); Phosphorus 1.9 mg/dl (2.5-4.9); Potassium 3.4 mmol/L (3.5-5.1)
[2024-06-09 08:21] LABS: Dohle Bodies 1+; Eosinophils # (auto) 0.01 K/uL (0.00-0.50); Eosinophils % (auto) 0.7 %; Immature Granulocytes # (auto) 0.04 K/uL (0.01-0.20); Lymphocytes # (auto) 0.65 K/uL (1.20-3.40); Lymphocytes % (auto) 48.5 %; Monocytes # (auto) 0.22 K/uL (0.11-0.59); Monocytes % (auto) 16.4 %; Neutrophils # (auto) 0.42 K/uL (1.40-6.50); Neutrophils % (auto) 31.4 %; Nucleated RBC # (auto) 0.05 K/uL (0.00-0.12); Nucleated RBC % (auto) 3.7 %; Ovalocytes 1+; Polychromasia 2+; Tear Drop Cells 1+; White Blood Count 1.34 K/ul (4.8-10.8)
[2024-06-09] MEDS ORDERED: POTASSIUM PHOS 3 MMOL/1 ML INFUSION IV STA (08:40)
[2024-06-09] MEDS: POTASSIUM CHLORIDE / WTR 10 MEQ/100 ML PLCT IV SCH (09:24)
--- NOTE | 2024-06-09 09:50 | Surgery Progress Note ---
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 CT scan showing large bowel transition point at hepatic flexure without fat plan suggesting extension of gallbladder mass into the colon causing partial obstruction. Reviewed outpatient records and CT scans since November 2023 which showed gallbladder mass extending to the hepatic flexure. Now with partial obstruction of the colon showing progression of disease. Given complexity of situation and patient current status, would recommend palliative consult for discussion of patients options, plans going forward, goals of care. She is passing gas and having bowel movements so she does not require acute surgical intervention. Continue conservative management regarding bowel obstruction, iv fluids, antiemetics, pain management. Can try clear liquids given + bowel function. Dr. Garcia has seen and examined pt, see addendum for further recommendations/plan. Admission and Anticipated Discharge Date Admission Date: June 06, 2024 Subjective having abdominal pain and nausea had two bowel movements family (nephew and brother) at bedside Physical Exam Constitutional: + frail appearing and + lethargic; not i n distress, not combative and not diaphoretic Respiratory: normal respiratory effort; no respiratory distress Gastrointestinal (Abdomen): Inspection/Auscultation: + abdomen distended (mild) Percussion/Palpation: + abdomen tender (generalized) and abdomen soft; no guarding, abdomen not rigid and abdomen not firm Skin: no rashes, warm and dry Psychiatric: Orientation: alert and oriented x 3 Results & Data Vital Signs (Past 12 Hours) Vital Signs Temp Pulse Pulse Resp BP Pulse Ox O2 Del Method 06/09/24 07:59 36.8 C 88 19 102/68 98 Room Air 06/09/24 03:36 36.6 C 85 20 106/75 99 Room Air 06/08/24 23:00 83 06/08/24 22:27 36.5 C 86 15 108/75 98 Room Air Laboratory Results 06/09/24 Range/Units 06:51 WBC 1.34 L (4.8-10.8) K/ul RBC 2.41 L (4.20-5.40) M/uL Hgb 8.2 L (12.0-16.0) g/dl Hct 25.0 L (37.0-47.0) % MCV 103.7 H (80.0-100.0) fL MCH 34.0 (25.0-34.0) pg MCHC 32.8 (32.0-36.0) g/dL RDW Std Deviation 66.6 H (36.4-46.3) fL RDW Coeff of Vicky 17.4 H (11.5-14.5) % Plt Count 83 L (130-400) K/uL MPV 10.5 (9.4-12.4) fL Immature Gran % (Auto) 3.0 % Neut % (Auto) 31.4 % Lymph % (Auto) 48.5 % [place] % (Auto) 16.4 % Eos % (Auto) 0.7 % Baso % (Auto) 0.0 % Neut # (Auto) 0.42 L* (1.40-6.50) K/uL Lymph # (Auto) 0.65 L (1.20-3.40) K/uL [place] # (Auto) 0.22 (0.11-0.59) K/uL Eos # (Auto) 0.01 (0.00-0.50) K/uL Baso # (Auto) 0.00 (0.00-0.20) K/uL Immature Gran # (Auto) 0.04 (0.01-0.20) K/uL Absolute Nucleated RBC 0.05 (0.00-0.12) K/uL Nucleated RBC % (auto) 3.7 % Dohle Bodies 1+ Polychromasia 2+ Tear Drop Cells 1+ Ovalocytes 1+ Sodium 139 (136-145) mmol/L Potassium 3.4 L (3.5-5.1) mmol/L Chloride 111 H (98-107) mmol/L Carbon Dioxide 19 L (21-32) mmol/L Anion Gap 9 (3-11) BUN 52 H (6-23) mg/dl Creatinine 1.16 (0.6-1.2) mg/dl Est Cr Clr Drug Dosing 41.9 ml/min Est GFR ( Amer) 53.3 ml/min Est GFR (Non-Af Amer) 46.0 ml/min BUN/Creatinine Ratio 44.8 H (10-20) Glucose 169 H (70-99(Fasting)) mg/dl Calcium 7.3 L (8.6-10.3) mg/dl Ionized Calcium 1.16 (1.12-1.32) mmol/L Phosphorus 1.9 L (2.5-4.9) mg/dl Magnesium 2.2 (1.7-2.4) mg/dl
--- NOTE | 2024-06-09 10:44 | Gastrointestinal Consultation ---
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 Since admission, she has had imaging suggestive of obstruction, but patient and family note that she has been moving her bowels. I discussed the case with Dr. Roman who helped advise on plan. - Family and patient would like to hold off on a colonic stent at this time and see how patient continues to progress. I explained to them that if something like this is needed or desired, it is not something that Dr. Roman does and that she would need transferred to a tertiary center to have this done. - recommend supportive care at this time. - would recommend palliative care consult. Supervising Physician Co-Signing Physician Notes I examined the patient and reviewed patient's chart , laboratory data and imaging studies. I agree with with assessment and plan of care as suggested by advanced practice provider. History of Present Illness Reason for Consultation: Gallbladder mass, bowel obstruction. ? 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 She had CT done 06/06 showing There is enlargement of the cecum and terminal ileum with normal caliber bowel at the transverse and descending colon. There is likely involvement of the hepatic flexure with the gallbladder mass. Decreased size of complex mass in the gallbladder. Interval placement of gastroenteric drain and biliary stents. She had KUB done 06/08 showin g Persistent small bowel dilation suggestive of obstruction. On yesterday's CT abdomen and pelvis study a partial large and small bowel obstruction is suggested with transition point at the hepatic flexure secondary to the infiltrative avis hepatis mass. She has seen surgery who was questioning if patient would need a colonic stent placed. Patient and family are at bedside. Patient is has been moving her bowels and having 2-3 bowel movements a day. no blood or melena noted. no bowel movements yet today. rest of GI ros are unremarkable. In the past she has followed with Dr. Morris at [facility]. Allergies Allergy/AdvReac Type Severity Reaction Status Date / Time latex Allergy Mild Rash Verified 03/02/24 10:30 sulfamethoxazole Allergy Unknown SWELLING Verified 03/02/24 10:30 ON FACE AND LIPS trimethoprim Allergy Unknown SWELLING Verified 03/02/24 10:30 ON FACE AND LIPS cayenne pepper fruits AdvReac Unknown "spicy Verified 06/06/24 22:25 foods" cause swelling metformin AdvReac Unknown mood Verified 03/02/24 10:30 disorder per [facility] record Home Medications Medication Instructions Recorded Confirmed Type calcium carbonate 600 mg-vitamin 1 cap PO DAILY 04/08/22 06/06/24 History D3 12.5 mcg (500 unit) capsule (Calcium 600 with Vitamin D3) atenolol 25 mg tablet 12.5 mg PO DAILY 12/03/22 06/06/24 History clonazepam 0.5 mg tablet 0.5 mg PO HS PRN anxiety or sleep 12/03/22 06/06/24 History magnesium 200 mg tablet 400 mg PO 2XD 06/29/23 06/06/24 History apixaban 5 mg tablet (Eliquis) 5 mg PO BID 06/06/24 06/06/24 History megestrol 625 mg/5 mL (125 mg/mL) 2 ml PO DAILY 06/06/24 06/06/24 History oral suspension prochlorperazine maleate 10 mg 10 mg PO Q6H PRN Nausea 06/06/24 06/06/24 History tablet Patient History Medical History History of DVT (deep vein thrombosis) Adenocarcinoma of gallbladder Restless legs syndrome (RLS) Anxiety 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) HTN (hypertension) Surgical History H/O partial mastectomy Family History Other Breast cancer Hypertension Social History Smoking Status: Never smoker Hx Alcohol Use: No Hx Substance Use: No Preferred Language: Arabic Communication Ability: Effective Mail Caller Required: No Beliefs That Will Affect Care: Catholic Current Living Situation: Spouse Current Living Situation Comment: Lives at home Other Information That Helps Us Care for You: No Feels Safe at Home: Yes Safety Concerns: Feels Safe At This Time Assistive Devices: Other Review of Systems Review of Systems: All systems reviewed & are unremarkable except as noted in HPI & below Physical Exam Physical Exam: frail and lethargic Respiratory: normal respiratory effort, lungs clear to auscultation Cardiovascular: Rate/Rhythm: regular rate and regular rhythm Gastrointestinal (Abdomen): hypoactive bowel sounds, nontender, soft. Psychiatric: Orientation: oriented x 3 Results & Data Vital Signs (Past 12 Hours) Vital Signs Temp Pulse Pulse Resp BP Pulse Ox O2 Del Method 06/09/24 07:59 98.2 F 88 19 102/68 98 Room Air 06/09/24 03:36 97.9 F 85 20 106/75 99 Room Air 06/08/24 23:00 83 Coding Level of Care Code 26953 INT INP/OBS CARE 2/55MIN Diagnoses Large bowel obstruction K56.609 Adenocarcinoma of gallbladder C23
--- NOTE | 2024-06-09 11:39 | Hospitalist Progress Note ---
Date of Service June 09, 2024 Assessment & Plan (1) Acute kidney injury superimposed on CKD: (2) Elevated lactic acid level: (3) Acute hyponatremia: (4) Adenocarcinoma of gallbladder: (5) History of DVT (deep vein thrombosis): (6) Anxiety: Plan This is a 74yo F with a PMH of adenocarcinoma of gallbladder on FOLFOX, HTN, h/o DVT on Eliquis, CKD III, h/o breast cancer, hypothyroidism, prediabetes and other medical problems listed below who presents with generalized weakness and poor appetite x 1 week and was found to have EUGENE superimposed on CKD. Bowel Obstruction CT adb/pelvis noting transition point suggestive of obstruction Follow up KUB noting persistence of bowel obstruction Pt intiallyNPO, IV fluids, IV antiemetics, IV pain meds General surgery consulted, appreciate recs -recommended GI consult, ordered -recommended oncology consult, ordered inpt and pt's outpt oncologist on board as well -recommended palliative care consult. Per pt and on further discussion, "we're not there yet". on 06/09, stated they would like to "watch and wait" Per surgery can advance diet to clears given pt having BMs. GI recommended nonop management, palliative care consult Continue to monitor Adenocarcinoma of gallbladder Last FOLFOX treatment 05/[address] Ginny Olivera 06/08- pt's family demanding chemotherapy reversal within 90 hours stating that their google research showed that pt is likely experiencing "toxic shock" related to her use of 5FU for chemotherapy. Would like a stat oncology consult. [facility] Oncology consulted. Further discussion with both pt's outpt oncologist Dr Gross via tigertext and via phone and inpt consult oncologist, who both state that pt is not in toxic shock and does not require chemo reversal. They state that is only done in extreme cases and usually in the ICU. As above GI consult for further recs per General Surgery. Neutropenia Lactic acidosis Possible sepsis Pt with progressing neutropenia, in the setting of recent chemotherapy Lactate initially 4.4 on admission ->normalized to 2.0 with fluids Chest XRAY with no acute infection UA unremarkable respiratory testing negative MRSA nares negative Blood Cx x1 set NGTD Continue empiric Cefepime Per Lead Furnace Operator/Oncologist Dr Christie on 06/08, start neupogen 480 mcg subcu for neutropenia for 3 days Continue to monitor EUGENE superimposed on CKD 2/2 decreased oral intake/possible infection following chemo tx 05/30 Creatinine 2.36 on admission (previously 1.7 eight days prior) Given 2L NSS in ED, continued maintenance fluid Nephrology consulted, appreciate recs Continue to monitor, improving Generalized weakness Hyponatremia Na 129 on admission Likely in setting of poor PO intake Expect improvement with fluids Nephrology consulted as above Continue to monitor, improving PT/OT, fall precautions Hypokalemia Hypocalcemia Hypophosphatemia Replete as needed Malnutrition Likely in setting of above Rn Private Duty consult H/o DVT Continue Eliquis HTN (hypertension) Continue atenolol History of breast cancer S/p left partial mastectomy, XRT, 5 years of tamoxifen completed in August 2022 Restless legs syndrome (RLS) Clonazepam HS PRN Diet: advancing, to clears DVT Ppx: Eliquis Code status: FULL PCP: Loreta Dispo: PT/OT ordered for further ecs Admission and Anticipated Discharge Date Admission Date: June 06, 2024 Subjective Pt was seen laying in bed. and daughter at bedside. Pt more awake today, wants to try to eat as she states she has been having bowel movements. Review of Systems Review of Systems: All systems reviewed & are unremarkable except as noted in Subjective Physical Exam Physical Exam: General: Alert, oriented Psych: Appropriate mood and affect Neuro: weakness HEENT: NC/AT CV: RRR Resp: no increased effort of breathing Abdomen: Soft, tender in lower abdomen Extremities: No edema in lower extremities bilaterally. Results & Data Results & Data Vital Signs (Past 12 Hours) Vital Signs Temp Pulse Pulse Resp BP Pulse Ox O2 Del Method 06/09/24 08:00 91 H 06/09/24 08:00 Room Air 06/09/24 07:59 36.8 C 88 19 102/68 98 Room Air 06/09/24 03:36 36.6 C 85 20 106/75 99 Room Air
[2024-06-09] MEDS: POTASSIUM PHOSPHATE 21 MMOL in SODIUM CHLORIDE 0.9% 500 ML IV ONE (12:04)
[2024-06-09] MEDS: CEFEPIME 2,000 MG in SYRINGE 0 ML IV SCH (18:10)
--- NOTE | 2024-06-10 05:27 | Surgery Progress Note ---
Date of Service June 10, 2024 Assessment & Plan (1) Large bowel obstruction: Plan: The patient has been admitted on the hospital service. From surgery perspective we recommend the following: Continue clear liquids for the present time; consideration can be given to advancing diet further if she continues to have a benign abdominal exam and persistent bowel function Due to the patient's known medical comorbidities (adenocarcinoma of the gallbladder, neutropenia) we will continue current management Continue IV fluids until oral intake is noted to be reliable The patient is receiving antibiotics in form of cefepimecontinue as directed by the primary service for neutropenia Check a.m. labs unavailable The patient is receiving Eliquis, so no further DVT prevention will be required as above. continues having bm's this am. denies abdominal pain or nausea. will advance to full liquids. Admission and Anticipated Discharge Date Admission Date: June 06, 2024 Subjective Patient is currently resting comfortably in bed. She notes that she has tolerated clear liquids without exacerbating any abdominal pain. She also denies any nausea or vomiting. She says she is passing flatus but has not had a bowel movement. Physical Exam Gastrointestinal (Abdomen): Abdomen is soft and nondistended. There is no pain noted with palpation. Results & Data Vital Signs (Past 12 Hours) Vital Signs Temp Pulse Pulse Resp BP Pulse Ox O2 Del Method 06/10/24 03:50 36.5 C 89 15 103/84 99 Room Air 06/09/24 23:13 36.8 C 93 H 16 108/76 97 Room Air 06/09/24 22:32 92 H 06/09/24 20:00 Room Air 06/09/24 19:41 36.8 C 79 23 128/85 98 Room Air PG Care Time/CCT Total # of Minutes Spent Total Time Spent with Patient: Total time spent is greater than 50% in coordination of care (as documented) at patient's floor/unit and/or counseling patient: Coding Level of Care Code 98387 SUB INP/OBS CARE 10/28MIN Diagnoses Large bowel obstruction K56.609
[2024-06-10 06:37] LABS: Folate (Folic Acid),Ser orPlas > 22.30 ng/ml (>5.38)
[2024-06-10 06:38] LABS: Vitamin B12 715 pg/ml (180-914)
[2024-06-10 06:43] LABS: Hematocrit (blood only) 27.8 % (37.0-47.0); Hemoglobin 9.1 g/dl (12.0-16.0); Mean Corpuscular Hemoglobin 33.6 pg (25.0-34.0); Mean Corpuscular Hgb Conc 32.7 g/dL (32.0-36.0); Mean Corpuscular Volume 102.6 fL (80.0-100.0); Mean Platelet Volume 12.4 fL (9.4-12.4); Platelet Count 64 K/uL (130-400); RDW Coefficient of Variation 18.3 % (11.5-14.5); RDW Standard Deviation 67.1 fL (36.4-46.3); Red Blood Count 2.71 M/uL (4.20-5.40)
[2024-06-10 06:51] LABS: Nucleated RBC # (auto) 0.12 K/uL (0.00-0.12); White Blood Count 2.38 K/ul (4.8-10.8)
[2024-06-10 06:53] LABS: Basophils # (auto) 0.02 K/uL (0.00-0.20); Basophils % (auto) 0.8 %; Dohle Bodies 1+; Echinocytes 1+; Eosinophils # (auto) 0.01 K/uL (0.00-0.50); Eosinophils % (auto) 0.4 %; Immature Granulocytes # (auto) 0.18 K/uL (0.01-0.20); Immature Granulocytes % (auto) 7.6 %; Lymphocytes # (auto) 0.88 K/uL (1.20-3.40); Monocytes # (auto) 0.19 K/uL (0.11-0.59); Neutrophils % (auto) 46.2 %; Polychromasia 2+; Tear Drop Cells 1+; Toxic Granulation 2+
[2024-06-10 06:58] LABS: Calcium 7.6 mg/dl (8.6-10.3); Potassium 3.5 mmol/L (3.5-5.1)
[2024-06-10 07:03] LABS: BUN Creatinine Ratio 38.6 (10-20); Creatinine Clr Calc Pharmacy 41.9 ml/min; Est GFR (African American) 54.5 ml/min
[2024-06-10 07:15] LABS: Phosphorus 1.9 mg/dl (2.5-4.9)
[2024-06-10 07:49] LABS: Magnesium 2.1 mg/dl (1.7-2.4)
[2024-06-10] MEDS: POT PHOSPHATE MONOBASIC W/ SOD TAB PO SCH (12:29)
--- NOTE | 2024-06-10 13:14 | Gastroenterology Progress Note ---
Date of Service June 10, 2024 Assessment & Plan (1) Large bowel obstruction: Plan: Patient has an gallbladder cancer which appears to have ingrown into the colon and it is causing an obstruction with a transition point in the in the hepatic flexure and the large bowel large bowel patient is being followed by surgery and she is on a clear liquid diet and having some bowel movements I would defer further management to surgery if surgery feels that colonic stenting stenting needs to be done patient would need to be transferred to a tertiary care center for that Patient appears quite weak and cachectic Nothing further from gastroenterology to offer at this site as we do not do colonic stenting here However if surgery feels that may be an option and the patient and the primary team also feel so would consider transfer to a tertiary center where such a procedure could be done though I am not quite sure how successful that may be as it appears the tumor has grown into the colonic region GI will sign off at this time and please recall if there are any questions Admission and Anticipated Discharge Date Admission Date: June 06, 2024 Subjective Patient is appearing quite weak and she is quite sleepy and but arousable when aroused she also answers in monosyllables like answers she does look quite take and is not appearing too well as per the nurse and her who is at the bedside she is still passing bowel movements she is on a clear liquid diet which she seems to be tolerating she states that she has some abdominal discomfort but as mentioned above she is not the best historian Review of Systems Review of Systems: Unable to obtain in view of patient's overall status Physical Exam Constitutional: Patient is very weak cachectic is arousable but does not answer many questions Respiratory: Clear anteriorly Cardiovascular: S1 and S2 Gastrointestinal (Abdomen): Distended mildly there is also mild generalized tenderness on deep palpation Results & Data Results & Data Vital Signs (Past 12 Hours) Vital Signs Temp Pulse Resp BP Pulse Ox O2 Del Method 06/10/24 11:39 36.6 C 96 H 19 110/77 97 Room Air 06/10/24 07:49 36.8 C 86 17 125/82 99 Room Air 06/10/24 03:50 36.5 C 89 15 103/84 99 Room Air PG Care Time/CCT Total # of Minutes Spent Total Time Spent with Patient: Total time spent is greater than 50% in coordination of care (as documented) at patient's floor/unit and/or counseling patient: Coding Level of Care Code 63428 SUB INP/OBS CARE 10/28MIN History Problem Focused Exam Problem Focused Diagnoses Large bowel obstruction K56.609
--- NOTE | 2024-06-10 14:24 | Hospitalist Progress Note ---
Date of Service June 10, 2024 Assessment & Plan (1) Acute kidney injury superimposed on CKD: (2) Elevated lactic acid level: (3) Acute hyponatremia: (4) Adenocarcinoma of gallbladder: (5) History of DVT (deep vein thrombosis): (6) Anxiety: Plan This is a 74yo F with a PMH of adenocarcinoma of gallbladder on FOLFOX, HTN, h/o DVT on Eliquis, CKD III, h/o breast cancer, hypothyroidism, prediabetes and other medical problems listed below who presents with generalized weakness and poor appetite x 1 week and was found to have EUGENE superimposed on CKD. Bowel Obstruction CT adb/pelvis noting transition point suggestive of obstruction Follow up KUB noting persistence of bowel obstruction Pt intiallyNPO, IV fluids, IV antiemetics, IV pain meds General surgery consulted, appreciate recs -recommended GI consult, ordered -recommended oncology consult, ordered inpt and pt's outpt oncologist on board as well -recommended palliative care consult. Per pt and on further discussion, "we're not there yet". on 06/09, stated they would like to "watch and wait" Per surgery can advance diet to clears given pt having BMs. GI recommended nonop management, palliative care consult Continue to monitor Adenocarcinoma of gallbladder Last FOLFOX treatment 05/[address] Ginny Olivera 06/08- pt's family demanding chemotherapy reversal within 90 hours stating that their google research showed that pt is likely experiencing "toxic shock" related to her use of 5FU for chemotherapy. Would like a stat oncology consult. [facility] Oncology consulted. Further discussion with both pt's outpt oncologist Dr Gross via tigertext and via phone and inpt consult oncologist, who both state that pt is not in toxic shock and does not require chemo reversal. They state that is only done in extreme cases and usually in the ICU. As above GI consult for further recs per General Surgery. Neutropenia Lactic acidosis Possible sepsis Pt with progressing neutropenia, in the setting of recent chemotherapy Lactate initially 4.4 on admission ->normalized to 2.0 with fluids Chest XRAY with no acute infection UA unremarkable respiratory testing negative MRSA nares negative Blood Cx x1 set NGTD Continue empiric Cefepime Per Shift Mechanic/Oncologist Dr Christie on 06/08, start neupogen 480 mcg subcu for neutropenia for 3 days neutropenia improving Continue to monitor EUGENE superimposed on CKD 2/2 decreased oral intake/possible infection following chemo tx 05/30 Creatinine 2.36 on admission (previously 1.7 eight days prior) Given 2L NSS in ED, continued maintenance fluid Nephrology consulted, appreciate recs Continue to monitor, improving Currently wnl Generalized weakness Hyponatremia Na 129 on admission Likely in setting of poor PO intake Expect improvement with fluids Nephrology consulted as above Continue to monitor, improving PT/OT, fall precautions Hypokalemia Hypocalcemia Hypophosphatemia Replete as needed Malnutrition Likely in setting of above Management Consulting consult H/o DVT Continue Eliquis HTN (hypertension) Continue atenolol History of breast cancer S/p left partial mastectomy, XRT, 5 years of tamoxifen completed in August 2022 Restless legs syndrome (RLS) Clonazepam HS PRN Diet: advancing, to clears DVT Ppx: Eliquis Code status: FULL PCP: Loreta Dispo: PT/OT ordered for further ecs Admission and Anticipated Discharge Date Admission Date: June 06, 2024 Subjective Pt was seen with daughter at bedside. having "pudding like" BMs, frequent. States eating and tolerating clears though not as much today. More lethargic today. Review of Systems Review of Systems: All systems reviewed & are unremarkable except as noted in Subjective Physical Exam Physical Exam: General: Alert Psych: Appropriate mood and affect Neuro: weakness HEENT: NC/AT CV: RRR Resp: no increased effort of breathing Abdomen: Soft, tender in lower abdomen Extremities: No edema in lower extremities bilaterally. Results & Data Results & Data Vital Signs (Past 12 Hours) Vital Signs Temp Pulse Resp BP Pulse Ox O2 Del Method 06/10/24 11:39 36.6 C 96 H 19 110/77 97 Room Air 06/10/24 07:49 36.8 C 86 17 125/82 99 Room Air 06/10/24 03:50 36.5 C 89 15 103/84 99 Room Air
--- NOTE | 2024-06-11 05:22 | Surgery Progress Note ---
Date of Service June 11, 2024 Assessment & Plan (1) Large bowel obstruction: Plan: The patient has been admitted on the hospital service. From surgery perspective we recommend the following: Continue clear liquids for the present time; consideration can be given to advancing diet further if patient continues to have persistent bowel function and her appetite improves Due to the patient's known medical comorbidities (adenocarcinoma of the gallbladder, neutropenia) conservative management will continue Continue IV fluids until oral intake is persistently reliable The patient is receiving antibiotics in form of cefepimecontinue as directed by the primary service for neutropenia Check a.m. labs unavailable The patient is receiving Eliquis, so no further DVT prevention will be required Admission and Anticipated Discharge Date Admission Date: June 06, 2024 Subjective Patient is currently resting comfortably in bed. She notes she continues to tolerate clears but does not have much in the way of an appetite. She denies any nausea or vomiting. Physical Exam Gastrointestinal (Abdomen): This morning abdomen is soft and nondistended. There is no pain with palpation and no rebound tenderness or guarding Results & Data Vital Signs (Past 12 Hours) Vital Signs Temp Pulse Pulse Resp BP Pulse Ox O2 Del Method 06/10/24 23:49 78 06/10/24 23:03 36.7 C 86 18 108/73 99 Room Air 06/10/24 20:00 Room Air 06/10/24 19:04 36.4 C L 99 H 18 101/69 97 Room Air PG Care Time/CCT Total # of Minutes Spent Total Time Spent with Patient: Total time spent is greater than 50% in coordination of care (as documented) at patient's floor/unit and/or counseling patient: Coding Level of Care Code 53421 SUB INP/OBS CARE 10/28MIN Diagnoses Large bowel obstruction K56.609
[2024-06-11 09:16] LABS: Hematocrit (blood only) 24.1 % (37.0-47.0); Hemoglobin 7.4 g/dl (12.0-16.0); Mean Corpuscular Hemoglobin 32.6 pg (25.0-34.0); Mean Corpuscular Hgb Conc 30.7 g/dL (32.0-36.0); Mean Corpuscular Volume 106.2 fL (80.0-100.0); Mean Platelet Volume 11.5 fL (9.4-12.4); Nucleated RBC # (auto) 0.19 K/uL (0.00-0.12); Nucleated RBC % (auto) 2.9 %; Platelet Count 68 K/uL (130-400); RDW Coefficient of Variation 18.9 % (11.5-14.5); RDW Standard Deviation 73.6 fL (36.4-46.3); Red Blood Count 2.27 M/uL (4.20-5.40); White Blood Count 6.59 K/ul (4.8-10.8)
[2024-06-11 09:19] LABS: Anisocytosis Present; Basophils # (auto) 0.04 K/uL (0.00-0.20); Basophils % (auto) 0.6 %; Dohle Bodies 2+; Eosinophils # (auto) 0.03 K/uL (0.00-0.50); Eosinophils % (auto) 0.5 %; Immature Granulocytes # (auto) 0.17 K/uL (0.01-0.20); Immature Granulocytes % (auto) 2.6 %; Lymphocytes # (auto) 1.35 K/uL (1.20-3.40); Lymphocytes % (auto) 20.5 %; Macrocytosis Present; Monocytes # (auto) 0.66 K/uL (0.11-0.59); Neutrophils # (auto) 4.34 K/uL (1.40-6.50); Neutrophils % (auto) 65.8 %; Ovalocytes 1+; Polychromasia 2+; Tear Drop Cells 1+; Toxic Granulation 2+
[2024-06-11 09:23] LABS: Potassium 3.3 mmol/L (3.5-5.1)
[2024-06-11 09:24] LABS: Albumin Level 2.2 gm/dl (3.4-5.0); BUN Creatinine Ratio 37.3 (10-20); Bilirubin,Total 0.5 mg/dl (0.2-1.0); Calcium 7.6 mg/dl (8.6-10.3); Creatinine Clr Calc Pharmacy 43.4 ml/min; Est GFR (African American) 56.9 ml/min; Est GFR (Non-African American) 49.1 ml/min; Globulin 2.1 gm/dl (2.5-4.0); Phosphorus 1.7 mg/dl (2.5-4.9); Total Protein 4.3 gm/dl (6.0-8.3)
[2024-06-11] MEDS ORDERED: POTASSIUM PHOS 3 MMOL/1 ML INFUSION IV STA (09:27)
[2024-06-11] MEDS ORDERED: LACTATED RINGER'S 1,000 ML IV SCH (09:30)
[2024-06-11] MEDS: POTASSIUM CHLORIDE 20 MEQ in LACTATED RINGER'S 1,000 ML IV SCH (10:43)
[2024-06-11] MEDS: POTASSIUM PHOSPHATE 15 MMOL in SODIUM CHLORIDE 0.9% 250 ML IV ONE (10:43)
--- NOTE | 2024-06-11 12:57 | Hospitalist Progress Note ---
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 Bowel Obstruction CT adb/pelvis noting transition point suggestive of obstruction Follow up KUB noting persistence of bowel obstruction Pt intiallyNPO, IV fluids, IV antiemetics, IV pain meds General surgery consulted, appreciate recs -recommended GI consult, ordered -recommended oncology consult, ordered inpt and pt's outpt oncologist on board as well -recommended palliative care consult. Per pt and on further discussion, "we're not there yet". on 06/09, stated they would like to "watch and wait". On 06/11, wants to talk to pt's pcp first Per surgery can advance diet to clears given pt having BMs. Further advanced to full liquids on 06/11 GI recommended nonop management, palliative care consult Continue to monitor Adenocarcinoma of gallbladder Last FOLFOX treatment 05/[address] Ginny Olivera 06/08- pt's family demanding chemotherapy reversal within 90 hours stating that their google research showed that pt is likely experiencing "toxic shock" related to her use of 5FU for chemotherapy. Would like a stat oncology consult. [facility] Oncology consulted. Further discussion with both pt's outpt oncologist Dr Gross via tigertext and via phone and inpt consult oncologist, who both state that pt is not in toxic shock and does not require chemo reversal. They state that is only done in extreme cases and usually in the ICU. As above GI consult for further recs per General Surgery. Neutropenia Lactic acidosis Possible sepsis Pt with progressing neutropenia, in the setting of recent chemotherapy Lactate initially 4.4 on admission ->normalized to 2.0 with fluids Chest XRAY with no acute infection UA unremarkable respiratory testing negative MRSA nares negative Blood Cx x1 set NGTD Continue empiric Cefepime Per Pl Sql Developer/Oncologist Dr Christie on 06/08, start neupogen 480 mcg subcu for neutropenia for 3 days neutropenia improving Continue to monitor EUGENE superimposed on CKD 2/2 decreased oral intake/possible infection following chemo tx 05/30 Creatinine 2.36 on admission (previously 1.7 eight days prior) Given 2L NSS in ED, continued maintenance fluid Nephrology consulted, appreciate recs Continue to monitor, improving Currently wnl Generalized weakness Hyponatremia Na 129 on admission Likely in setting of poor PO intake Expect improvement with fluids Nephrology consulted as above Continue to monitor, improving PT/OT, fall precautions Hypokalemia Hypocalcemia Hypophosphatemia Replete as needed Malnutrition Likely in setting of above Avionics Mechanic consult H/o DVT Continue Eliquis HTN (hypertension) Continue atenolol History of breast cancer S/p left partial mastectomy, XRT, 5 years of tamoxifen completed in August 2022 Restless legs syndrome (RLS) Clonazepam HS PRN Diet: advancing, to clears DVT Ppx: Eliquis Code status: FULL PCP: Loreta Dispo: PT/OT ordered for further recs Admission and Anticipated Discharge Date Admission Date: June 06, 2024 Subjective pt was seen with at bedside. Weak and lethargic. Some difficulty with word finding. Per , wants to talk to pt's pcp first before considering palliative. States that pt has "come back" from this before. States he believes her bowel obstruction is chronic. Review of Systems Review of Systems: All systems reviewed & are unremarkable except as noted in Subjective Physical Exam Physical Exam: General: Alert Psych: Appropriate mood and affect Neuro: weakness HEENT: NC/AT CV: RRR Resp: no increased effort of breathing Abdomen: Soft, tender in lower abdomen Extremities: No edema in lower extremities bilaterally. Results & Data Results & Data Vital Signs (Past 12 Hours) Vital Signs Temp Pulse Pulse Resp BP Pulse Ox O2 Del Method 06/11/24 11:16 36.6 C 89 18 109/75 99 Room Air 06/11/24 08:00 90 06/11/24 08:00 Room Air 06/11/24 07:38 36.6 C 93 H 16 110/74 99 Room Air 06/11/24 03:41 36.6 C 94 H 16 116/79 97 Room Air
[2024-06-12 07:40] LABS: Albumin Globulin Ratio 1.1 (0.9-2); Albumin Level 2.1 gm/dl (3.4-5.0); BUN Creatinine Ratio 34.9 (10-20); Bilirubin,Total 0.5 mg/dl (0.2-1.0); Calcium 7.3 mg/dl (8.6-10.3); Creatinine Clr Calc Pharmacy 43.8 ml/min; Est GFR (African American) 57.5 ml/min; Est GFR (Non-African American) 49.6 ml/min; Globulin 1.9 gm/dl (2.5-4.0); Magnesium 1.9 mg/dl (1.7-2.4); Potassium 3.7 mmol/L (3.5-5.1)
[2024-06-12 07:43] LABS: Hematocrit (blood only) 21.6 % (37.0-47.0); Hemoglobin 6.7 g/dl (12.0-16.0); Mean Corpuscular Hemoglobin 33.3 pg (25.0-34.0); Mean Corpuscular Volume 107.5 fL (80.0-100.0); Mean Platelet Volume 12.4 fL (9.4-12.4); Nucleated RBC # (auto) 0.15 K/uL (0.00-0.12); Nucleated RBC % (auto) 2.5 %; Platelet Count 76 K/uL (130-400); RDW Coefficient of Variation 19.1 % (11.5-14.5); RDW Standard Deviation 74.1 fL (36.4-46.3); Red Blood Count 2.01 M/uL (4.20-5.40); White Blood Count 5.89 K/ul (4.8-10.8)
[2024-06-12 08:07] LABS: Anisocytosis Present; Basophils # (auto) 0.04 K/uL (0.00-0.20); Basophils % (auto) 0.7 %; Dohle Bodies 2+; Eosinophils # (auto) 0.02 K/uL (0.00-0.50); Eosinophils % (auto) 0.3 %; Immature Granulocytes # (auto) 0.47 K/uL (0.01-0.20); Lymphocytes # (auto) 1.29 K/uL (1.20-3.40); Lymphocytes % (auto) 21.9 %; Monocytes # (auto) 0.86 K/uL (0.11-0.59); Monocytes % (auto) 14.6 %; Neutrophils # (auto) 3.21 K/uL (1.40-6.50); Neutrophils % (auto) 54.5 %; Polychromasia 1+; Tear Drop Cells 1+; Toxic Granulation 2+
[2024-06-12] MEDS ORDERED: SODIUM CHLORIDE 0.9% 250 ML IV PRN (08:51)
[2024-06-12] MEDS ORDERED: POTASSIUM PHOS 3 MMOL/1 ML INFUSION IV STA (08:53)
[2024-06-12] MEDS: POTASSIUM PHOSPHATE 15 MMOL in SODIUM CHLORIDE 0.9% 250 ML IV ONE (09:44)
--- NOTE | 2024-06-12 11:42 | Surgery Progress Note ---
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 CT scan showing large bowel transition point at hepatic flexure without fat plan suggesting extension of gallbladder mass into the colon causing partial obstruction. Reviewed outpatient records and CT scans since November 2023 which showed gallbladder mass extending to the hepatic flexure. Now with partial obstruction of the colon showing progression of disease. Given complexity of situation and patient current status, would recommend palliative consult for discussion of patients options, plans going forward, goals of care. She is passing gas and having bowel movements so she does not require acute surgical intervention. Continue conservative management regarding bowel obstruction, iv fluids, antiemetics, pain management. Can try clear liquids given + bowel function. 06/12/24 - Patient is passing flatus and having bowel movements. She is tolerating a diet. Any surgical intervention except in the emergent situation where she had a complete bowel obstruction. She is tolerating her diet and having bowel movements, we will sign off for now. Please call with any questions or concerns. Admission and Anticipated Discharge Date Admission Date: June 06, 2024 Subjective doing ok today; receiving blood transfusion currently. continues to pass flatus and have BMs. tolerating full liquid diet Physical Exam Gastrointestinal (Abdomen): Inspection/Auscultation: abdomen normal to inspection and + abdomen distended (mild) Percussion/Palpation: abdomen soft; no guarding, abdomen not rigid and abdomen not firm Results & Data Vital Signs (Past 12 Hours) Vital Signs Temp Pulse Pulse Resp BP BP Pulse Ox 06/12/24 11:31 36.5 C 86 18 111/75 98 06/12/24 08:03 06/12/24 07:51 36.6 C 85 17 107/72 100 06/12/24 03:01 36.7 C 90 20 111/77 98 06/12/24 00:00 90 O2 Del Method 06/12/24 11:31 06/12/24 08:03 Room Air 06/12/24 07:51 Room Air 06/12/24 03:01 Room Air 06/12/24 00:00
--- NOTE | 2024-06-12 15:55 | Hospitalist Progress Note ---
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 Bowel Obstruction CT adb/pelvis noting transition point suggestive of obstruction Follow up KUB noting persistence of bowel obstruction Pt intiallyNPO, IV fluids, IV antiemetics, IV pain meds General surgery consulted, appreciate recs -recommended GI consult, ordered -recommended oncology consult, ordered inpt and pt's outpt oncologist on board as well -recommended palliative care consult. Per pt and on further discussion, "we're not there yet". on 06/09, stated they would like to "watch and wait". On 06/11, wants to talk to pt's pcp first Per surgery can advance diet to clears given pt having BMs. Further advanced to full liquids on 06/11 GI recommended nonop management, palliative care consult Continue to monitor Stable Adenocarcinoma of gallbladder Last FOLFOX treatment 05/[address] Ginny Olivera 06/08- pt's family demanding chemotherapy reversal within 90 hours stating that their google research showed that pt is likely experiencing "toxic shock" related to her use of 5FU for chemotherapy. Would like a stat oncology consult. [facility] Oncology consulted. Further discussion with both pt's outpt oncologist Dr Gross via tigertext and via phone and inpt consult oncologist, who both state that pt is not in toxic shock and does not require chemo reversal. They state that is only done in extreme cases and usually in the ICU. As above GI consult for further recs per General Surgery. Neutropenia Lactic acidosis Possible sepsis Pt with progressing neutropenia, in the setting of recent chemotherapy Lactate initially 4.4 on admission ->normalized to 2.0 with fluids Chest XRAY with no acute infection UA unremarkable respiratory testing negative MRSA nares negative Blood Cx x1 set NGTD Continue empiric Cefepime Per Vice Principal/Oncologist Dr Christie on 06/08, start neupogen 480 mcg subcu for neutropenia for 3 days neutropenia improving Continue to monitor Anemia Hgb <7 on 06/11 s/p transfusion 1U pRBCs Holding home eliquis at this time, resume as soon as able given pt's risk factors Continue to monitor H/H EUGENE superimposed on CKD 2/2 decreased oral intake/possible infection following chemo tx 05/30 Creatinine 2.36 on admission (previously 1.7 eight days prior) Given 2L NSS in ED, continued maintenance fluid Nephrology consulted, appreciate recs Continue to monitor, improving Currently wnl Generalized weakness Hyponatremiaresolved Hypernatremia Na 129 on admission Likely in setting of poor PO intake Noted improvement with fluids Nephrology consulted as above Continue to monitor, improving PT/OT, fall precautions 06/12- sodium has been trending up, monitored once more after blood transfusion, then started on d5w per nephrology Hypokalemia Hypocalcemia Hypophosphatemia Replete as needed Malnutrition Likely in setting of above Knitting Tester consult H/o DVT Continue Eliquis HTN (hypertension) Continue atenolol History of breast cancer S/p left partial mastectomy, XRT, 5 years of tamoxifen completed in August 2022 Restless legs syndrome (RLS) Clonazepam HS PRN Diet: advancing, to full DVT Ppx: Eliquis Code status: FULL PCP: Loreta Dispo: PT/OT ordered for further recs Admission and Anticipated Discharge Date Admission Date: June 06, 2024 Subjective pt was seen laying in bed. at bedside States tired. Occasionally opens eyes. AAOx2 Needs blood consent Review of Systems Review of Systems: All systems reviewed & are unremarkable except as noted in Subjective Physical Exam Physical Exam: General: Alert Psych: Appropriate mood and affect Neuro: weakness HEENT: NC/AT CV: RRR Resp: no increased effort of breathing Abdomen: Soft, tender in lower abdomen Extremities: No edema in lower extremities bilaterally. Results & Data Results & Data Vital Signs (Past 12 Hours) Vital Signs Temp Pulse Pulse Resp BP BP Pulse Ox 06/12/24 15:01 80 06/12/24 14:40 36.7 C 81 18 113/78 99 06/12/24 13:40 36.4 C L 83 18 116/78 99 06/12/24 12:40 36.3 C L 84 18 111/75 100 06/12/24 12:10 36.6 C 82 18 116/75 100 06/12/24 11:55 36.9 C 81 18 109/74 99 06/12/24 11:31 36.5 C 86 18 111/75 98 06/12/24 10:56 36.5 C 87 16 112/75 97 06/12/24 08:03 06/12/24 07:51 36.6 C 85 17 107/72 100 06/12/24 07:00 83 O2 Del Method 06/12/24 15:01 06/12/24 14:40 06/12/24 13:40 06/12/24 12:40 06/12/24 12:10 06/12/24 11:55 06/12/24 11:31 06/12/24 10:56 Room Air 06/12/24 08:03 Room Air 06/12/24 07:51 Room Air 06/12/24 07:00
[2024-06-12 17:41] LABS: Calcium 7.8 mg/dl (8.6-10.3); Creatinine Clr Calc Pharmacy 42.6 ml/min; Est GFR (African American) 55.6 ml/min; Potassium 3.6 mmol/L (3.5-5.1)
[2024-06-12 17:45] LABS: Hematocrit (blood only) 26.3 % (37.0-47.0); Hemoglobin 8.7 g/dl (12.0-16.0)
--- NOTE | 2024-06-12 18:16 | Nephrology Progress Note ---
Date of Service June 12, 2024 Assessment & Plan (1) Hypernatremia: Plan: earlier this admission she had hypovolemic hyponatremia; now she has hypernatremia >> again this comes from poor po intake. some improvement with giving blood today but not resolved on recheck labs this PM >will give 500 mL D5W this evening >monitor BMP daily (2) Acute kidney injury superimposed on CKD: Plan: improving/resolved prerenal. she gets lots of labs as an outpatient through Oncology office and her recent creatinine has been in the 1.5-1.7 range. on admission slightly higher at 2.36 but with IV fluid it is now 1.1 which is actually better than her recent baseline. patient does appear weak and tired and does not seem to be eating much so most likely this was prerenal type of acute kidney injury. and with adequate hydration it might actually be completely normal >> family reports she's doing better w/ intake today but midday meal tray nearly untouched family worries patient is having toxicity of 5 fluorouracil and wants her to have the antidote. Renal failure is not the typical feature of 5 fluorouracil toxicity and in any case EUGENE was prerenal type; cont to defer to the appropriate specialist and the primary team. her oncologist Dr. Gorss is already aware of the situation and further plans regarding antidote are up to him. from renal standpoint there is very high chance that her kidney function will get worse again from prerenal state because even now she is barely eating anything. >>As an outpatient I would also consider giving her IV fluid on a regular basis through Oncology. (3) Acute hyponatremia: Plan: resolved; see above Admission and Anticipated Discharge Date Admission Date: June 06, 2024 Subjective seen and evaluated on midday rounds; pt extremely fatigued, participates minimally. and daughter at bedside. she denied uncontrolled pain. daughter stated pt drinking better today. no sob. dosing intermittently in interview Review of Systems 2 Review of Systems: All systems reviewed & are unremarkable except as noted in Subjective Physical Exam 2 Constitutional: well developed, well nourished, + ill appearing, average body habitus and + lethargic; no acute distress Eyes: EOM intact bilaterally ENMT: Ears: no external ear abnormality Nose: no external nose abnormality Mouth: + dry oral mucous membranes Neck: no nuchal rigidity Respiratory: normal respiratory effort Auscultation: + diminished lung sounds Cardiovascular: Rate/Rhythm: regular rate and regular rhythm Extremities: n o edema Gastrointestinal (Abdomen): Inspection/Auscultation: normal bowel sounds P ercussion/Palpation: abdomen soft; abdomen nontender Musculoskeletal: Extremities: strength 5/5 throughout Skin: no rashes, warm and dry Neurologic: pacheco, minimal speech, eomi, no tremor Results & Data Vital Signs (Past 12 Hours) Vital Signs Temp Pulse Pulse Resp BP BP Pulse Ox 06/12/24 15:58 36.7 C 83 17 113/78 100 06/12/24 15:01 80 06/12/24 14:40 36.7 C 81 18 113/78 99 06/12/24 13:40 36.4 C L 83 18 116/78 99 06/12/24 12:40 36.3 C L 84 18 111/75 100 06/12/24 12:10 36.6 C 82 18 116/75 100 06/12/24 11:55 36.9 C 81 18 109/74 99 06/12/24 11:31 36.5 C 86 18 111/75 98 06/12/24 10:56 36.5 C 87 16 112/75 97 06/12/24 08:03 06/12/24 07:51 36.6 C 85 17 107/72 100 06/12/24 07:00 83 O2 Del Method 06/12/24 15:58 Room Air 06/12/24 15:01 06/12/24 14:40 06/12/24 13:40 06/12/24 12:40 06/12/24 12:10 06/12/24 11:55 06/12/24 11:31 06/12/24 10:56 Room Air 06/12/24 08:03 Room Air 06/12/24 07:51 Room Air 06/12/24 07:00 Laboratory Results 06/12/24 17:08 06/12/24 17:08
[2024-06-12] MEDS ORDERED: DEXTROSE 5% 1,000 ML IV SCH (18:30)
[2024-06-12] MEDS: DEXTROSE 5% 500 ML IV SCH (20:43)
[2024-06-13 07:24] LABS: Albumin Globulin Ratio 1.1 (0.9-2); Albumin Level 2.1 gm/dl (3.4-5.0); BUN Creatinine Ratio 28.3 (10-20); Bilirubin,Total 0.5 mg/dl (0.2-1.0); Calcium 7.3 mg/dl (8.6-10.3); Creatinine Clr Calc Pharmacy 39.6 ml/min; Est GFR (African American) 51.2 ml/min; Est GFR (Non-African American) 44.2 ml/min; Globulin 1.9 gm/dl (2.5-4.0); Magnesium 1.9 mg/dl (1.7-2.4); Phosphorus 2.7 mg/dl (2.5-4.9); Potassium 3.7 mmol/L (3.5-5.1)
[2024-06-13 07:28] LABS: Hematocrit (blood only) 24.1 % (37.0-47.0); Hemoglobin 7.8 g/dl (12.0-16.0); Mean Corpuscular Hemoglobin 32.1 pg (25.0-34.0); Mean Corpuscular Hgb Conc 32.4 g/dL (32.0-36.0); Mean Corpuscular Volume 99.2 fL (80.0-100.0); Mean Platelet Volume 12.3 fL (9.4-12.4); Nucleated RBC # (auto) 0.14 K/uL (0.00-0.12); Nucleated RBC % (auto) 2.3 %; Platelet Count 82 K/uL (130-400); RDW Coefficient of Variation 25.1 % (11.5-14.5); RDW Standard Deviation 87.8 fL (36.4-46.3); Red Blood Count 2.43 M/uL (4.20-5.40); White Blood Count 6.21 K/ul (4.8-10.8)
[2024-06-13 07:31] LABS: Basophils # (auto) 0.03 K/uL (0.00-0.20); Basophils % (auto) 0.5 %; Dohle Bodies 2+; Eosinophils # (auto) 0.05 K/uL (0.00-0.50); Eosinophils % (auto) 0.8 %; Immature Granulocytes # (auto) 0.23 K/uL (0.01-0.20); Immature Granulocytes % (auto) 3.7 %; Lymphocytes # (auto) 1.75 K/uL (1.20-3.40); Lymphocytes % (auto) 28.2 %; Monocytes # (auto) 0.92 K/uL (0.11-0.59); Monocytes % (auto) 14.8 %; Neutrophils # (auto) 3.23 K/uL (1.40-6.50); Polychromasia 1+; Tear Drop Cells 1+; Toxic Granulation 2+
[2024-06-13] MEDS: HYDROmorphone INJ 0.5 MG/0.5 ML SYR IV PRN (10:30)
[2024-06-13] MEDS: LIDOCAINE 5% 1 PATCH TD SCH (11:53)
--- NOTE | 2024-06-13 14:28 | Hospitalist Progress Note ---
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 Bowel Obstruction CT adb/pelvis noting transition point suggestive of obstruction Follow up KUB noting persistence of bowel obstruction Pt intiallyNPO, IV fluids, IV antiemetics, IV pain meds General surgery consulted, appreciate recs -recommended GI consult, ordered -recommended oncology consult, ordered inpt and pt's outpt oncologist on board as well -recommended palliative care consult. Per pt and on further discussion, "we're not there yet". on 06/09, stated they would like to "watch and wait". On 06/11, wants to talk to pt's pcp first. on 06/13, states he did discuss it with pt's pcp and would like palliative care pursued after she gets stronger. Per surgery can advance diet given pt having BMs. Further advanced to solids, soft on 06/13 GI recommended nonop management, palliative care consult Continue to monitor Stable Adenocarcinoma of gallbladder Last FOLFOX treatment 05/[address] Ginny Olivera 06/08- pt's family demanding chemotherapy reversal within 90 hours stating that their google research showed that pt is likely experiencing "toxic shock" related to her use of 5FU for chemotherapy. Would like a stat oncology consult. [facility] Oncology consulted. Further discussion with both pt's outpt oncologist Dr Gross via tigertext and via phone and inpt consult oncologist, who both state that pt is not in toxic shock and does not require chemo reversal. They state that is only done in extreme cases and usually in the ICU. As above GI consult for further recs per General Surgery. Neutropenia Lactic acidosis Possible sepsis Pt with progressing neutropenia, in the setting of recent chemotherapy Lactate initially 4.4 on admission ->normalized to 2.0 with fluids Chest XRAY with no acute infection UA unremarkable respiratory testing negative MRSA nares negative Blood Cx x1 set NGTD Continue empiric Cefepime Per Thermospray Operator/Oncologist Dr Christie on 06/08, start neupogen 480 mcg subcu for neutropenia for 3 days neutropenia improved, currently wnl- Cefepime discontinued. Continue to monitor Anemia Hgb <7 on 06/11 s/p transfusion 1U pRBCs Holding home eliquis at this time FOBT POSITIVE Continue to monitor H/H GI re-consulted on 06/13 - will see pt after Eliquis on hold for 48hrs on 06/14 -pt NPO after midnight for possible procedure EUGENE superimposed on CKD 2/2 decreased oral intake/possible infection following chemo tx 05/30 Creatinine 2.36 on admission (previously 1.7 eight days prior) Given 2L NSS in ED, continued maintenance fluid Nephrology consulted, appreciate recs Continue to monitor, improving Currently wnl Generalized weakness Hyponatremiaresolved Hypernatremia Na 129 on admission Likely in setting of poor PO intake Noted improvement with fluids Nephrology consulted as above Continue to monitor, improving PT/OT, fall precautions 06/12- sodium has been trending up, monitored once more after blood transfusion, then started on d5w per nephrology 06/13-sodium wnl Hypokalemia Hypocalcemia Hypophosphatemia Replete as needed Malnutrition Likely in setting of above Supervisor Gas Meter Repair consult H/o DVT Continue Eliquis HTN (hypertension) Continue atenolol History of breast cancer S/p left partial mastectomy, XRT, 5 years of tamoxifen completed in August 2022 Restless legs syndrome (RLS) Clonazepam HS PRN Diet: advancing, to full DVT Ppx: Eliquis Code status: FULL PCP: Loreta Dispo: PT/OT ordered for further recs. pt has been refusing, family requesting once more on 06/13 Admission and Anticipated Discharge Date Admission Date: June 06, 2024 Subjective pt was seen laying in bed. and son at bedside wants to eat today, wants diet advanced Review of Systems Review of Systems: All systems reviewed & are unremarkable except as noted in Subjective Physical Exam Physical Exam: General: Alert Psych: Appropriate mood and affect Neuro: weakness HEENT: NC/AT CV: RRR Resp: no increased effort of breathing Abdomen: Soft, tender in lower abdomen Extremities: No edema in lower extremities bilaterally. Results & Data Results & Data Vital Signs (Past 12 Hours) Vital Signs Temp Pulse Pulse Resp BP Pulse Ox O2 Del Method 06/13/24 13:00 86 06/13/24 12:00 36.7 C 88 18 108/71 98 Room Air 06/13/24 07:28 36.6 C 76 18 122/68 97 Room Air 06/13/24 07:00 79 06/13/24 03:07 36.5 C 82 16 110/74 98 Room Air
[2024-06-13] MEDS: HEPARIN 100 UNIT/ML 5ML FLUSH FLUSH PRN (14:37)
[2024-06-13] MEDS: PROCHLORPERAZINE 5 MG in SYRINGE 4 ML IV PRN (17:18)
[2024-06-14 06:56] LABS: Albumin Globulin Ratio 1.1 (0.9-2); Albumin Level 2.1 gm/dl (3.4-5.0); BUN Creatinine Ratio 28.6 (10-20); Bilirubin,Total 0.5 mg/dl (0.2-1.0); Calcium 7.2 mg/dl (8.6-10.3); Creatinine Clr Calc Pharmacy 45.2 ml/min; Est GFR (African American) 60.2 ml/min; Est GFR (Non-African American) 51.9 ml/min; Magnesium 1.9 mg/dl (1.7-2.4); Phosphorus 2.8 mg/dl (2.5-4.9); Potassium 3.4 mmol/L (3.5-5.1); Total Protein 4.1 gm/dl (6.0-8.3)
[2024-06-14 07:21] LABS: Hematocrit (blood only) 23.3 % (37.0-47.0); Hemoglobin 7.6 g/dl (12.0-16.0); Mean Corpuscular Hemoglobin 32.5 pg (25.0-34.0); Mean Corpuscular Hgb Conc 32.6 g/dL (32.0-36.0); Mean Corpuscular Volume 99.6 fL (80.0-100.0); Mean Platelet Volume 11.4 fL (9.4-12.4); Nucleated RBC % (auto) 1.8 %; Platelet Count 90 K/uL (130-400); RDW Coefficient of Variation 23.4 % (11.5-14.5); RDW Standard Deviation 83.8 fL (36.4-46.3); Red Blood Count 2.34 M/uL (4.20-5.40); White Blood Count 5.44 K/ul (4.8-10.8)
[2024-06-14 07:22] LABS: Anisocytosis Present; Basophils # (auto) 0.03 K/uL (0.00-0.20); Basophils % (auto) 0.6 %; Dohle Bodies 2+; Eosinophils # (auto) 0.03 K/uL (0.00-0.50); Eosinophils % (auto) 0.6 %; Immature Granulocytes # (auto) 0.24 K/uL (0.01-0.20); Immature Granulocytes % (auto) 4.4 %; Lymphocytes # (auto) 1.61 K/uL (1.20-3.40); Lymphocytes % (auto) 29.6 %; Monocytes # (auto) 0.98 K/uL (0.11-0.59); Neutrophils # (auto) 2.55 K/uL (1.40-6.50); Neutrophils % (auto) 46.8 %; Polychromasia 1+
--- NOTE | 2024-06-14 09:55 | Gastroenterology Progress Note ---
Date of Service June 14, 2024 Assessment & Plan (1) Adenocarcinoma of gallbladder: Plan: 74 year old female with history of adenocarcinoma of gallbladder s/p EGD/EUS/ERCP w/ gastrojejunostomy using the AXIOS stent, placement of a 10 cm 7 Nepali double pigtail plastic biliary stent was placed into the bile duct with one end in the duodenum and the other end proximal to the hilar stenosis and placement of a 10 cm 7 Nepali double pigtail plastic biliary stent was placed with one end in the biliary confluence and one end in the stomach creating a hepaticogastrostomy on FOLFOX, HTN, h/o DVT on Eliquis, CKD-3, breast cancer, hypothyroidism, prediabetes admitted w/ neutropenia, large bowel obstruction and anemia w/ report of heme positive stools. Discussed with attending, endoscopic evaluation not recommended. If oozing/bleeding present from know mass erosion, this would not be amendable to endoscopic intervention locally. I will send Dr. Alexandra tirado [employer] to discuss the case to see if this case would be amendable to any additional st enting/biliary intervention to tamponade potential oozing/bleeding. Continue supportive measures. Trend HGB. Monitor GI output. Transfuse PRN. Thank you for allowing us to participate in the care of this patient. Please call with any acute changes, questions or concerns. Please see addendum below with additional recommendation from my supervising physician. I spent a total of 50 minutes on the date of service in review of patient's record, and previously obtained information in person and appropriate medical visit, discussion and education of plan, with patient and/or caregiver, placing orders for tests/referral/procedures as medically necessary and documentation of pertinent clinical information in patient's medical records for their visit today. Admission and Anticipated Discharge Date Admission Date: June 06, 2024 Supervising Physician Co-Signing Physician Notes Patient seen and case discussed with Codi VELASCO. Patient with tumor eroding through intestine. Unfortunately endoscopic manuevers (other than stenting of SB and/or colon which is not performed at this facility) is not effective in stopping bleeding from cancer. Ms Kincaid reached out to the patient's advanced endoscopist who also informed her that he did not feel she was a candidate for further stenting. ? if surgical resection could help or otherwise just support. No role for endoscopic studies at this facility. IP GI Service will sign off. Subjective GI was asked to re-evaluate for anemia and FOBT positive. S/P 1 unit RBC this admission. Today HGB 7.6 w/ BUN 30 She denies any black or bloody stools. No abd pain, nausea/vomiting. Tolerating oral intake before she was made in NPO. CTAP 2023: 1There is enlargement of the cecum and terminal ileum with normal caliber bowel at the transverse and descending colon. There is likely involvement of the hepatic flexure with the gallbladder mass.Decreased size of complex mass in the gallbladder. Interval placement of gastroenteric drain and biliary stents. Additional findings as above. ERCP 2022: - ERCP done through the GJ Axios stent to reach the papilla due to severe stenosis in the duodenal bulb. . - A single malignant localized biliary stricture was found in the middle third of the main bile duct. - A biliary sphincterotomy was performed.- The plastic biliary stent was exchanged for an uncovered metal biliary stent. EUS 2022: Severe duodenal bulb stenosis due to the large gallbladder mass precluding performance of an ERCP. - Successful EUS guided Gastrojejunostomy using a 20 mm Axios stent. - Successful EUS guided cholangiogram showed hilar obstruction (Bismuth type I). - Successful EUS guided antegrade biliary stenting using a 7 Fr x 10 cm double pigtail plastic stent. - Successful EUS guided hepaticogastrostomy using a 7 Fr x 10 double pigtail plastic stent. EUS 2022: - A mass was found in the gallbladder area invading the duodenal wall. Fine needle biopsy performed. - There was dilation in the intrahepatic bile ducts, diffusely. EGD 2022: - Normal esophagus. - Normal stomach. 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 Upper endoscope could not traverse despite balloon dilation. Review of Systems Review of Systems: All other findings negative except as noted in HPI. Physical Exam Constitutional: WD/WN, vitals as above chronically ill appearing female in no acute distress Respiratory: normal respiratory effort, lungs clear to auscultation Cardiovascular: Rate/Rhythm: regular rate and regular rhythm Gastrointestinal (Abdomen): Inspection/Auscultation: normal bowel sounds Skin: no rashes, warm and dry Results & Data Results & Data Vital Signs (Past 12 Hours) Vital Signs Temp Pulse Pulse Resp BP Pulse Ox O2 Del Method 06/14/24 07:53 36.8 C 77 18 101/72 96 Room Air 06/14/24 07:00 74 06/14/24 02:43 36.6 C 89 18 111/64 98 Room Air 06/13/24 22:39 36.6 C 93 H 18 93/61 L 94 Room Air 06/13/24 21:51 94 H Laboratory Results 06/14/24 06/14/24 Range/Units 06:23 06:14 WBC 5.44 (4.8-10.8) K/ul RBC 2.34 L (4.20-5.40) M/uL Hgb 7.6 L (12.0-16.0) g/dl Hct 23.3 L (37.0-47.0) % MCV 99.6 (80.0-100.0) fL MCH 32.5 (25.0-34.0) pg MCHC 32.6 (32.0-36.0) g/dL RDW Std Deviation 83.8 H (36.4-46.3) fL RDW Coeff of Vicky 23.4 H (11.5-14.5) % Plt Count 90 L (130-400) K/uL MPV 11.4 (9.4-12.4) fL Immature Gran % (Auto) 4.4 % Neut % (Auto) 46.8 % Lymph % (Auto) 29.6 % [place] % (Auto) 18.0 % Eos % (Auto) 0.6 % Baso % (Auto) 0.6 % Neut # (Auto) 2.55 (1.40-6.50) K/uL Lymph # (Auto) 1.61 (1.20-3.40) K/uL [place] # (Auto) 0.98 H (0.11-0.59) K/uL Eos # (Auto) 0.03 (0.00-0.50) K/uL Baso # (Auto) 0.03 (0.00-0.20) K/uL Immature Gran # (Auto) 0.24 H (0.01-0.20) K/uL Absolute Nucleated RBC 0.10 (0.00-0.12) K/uL Nucleated RBC % (auto) 1.8 % Dohle Bodies 2+ Polychromasia 1+ Anisocytosis Present Sodium 143 (136-145) mmol/L Potassium 3.4 L (3.5-5.1) mmol/L Chloride 110 H (98-107) mmol/L Carbon Dioxide 28 (21-32) mmol/L Anion Gap 5 (3-11) BUN 30 H (6-23) mg/dl Creatinine 1.05 (0.6-1.2) mg/dl Est Cr Clr Drug Dosing 45.2 ml/min Est GFR ( Amer) 60.2 ml/min Est GFR (Non-Af Amer) 51.9 ml/min BUN/Creatinine Ratio 28.6 H (10-20) Glucose 114 H (70-99(Fasting)) mg/dl Calcium 7.2 L (8.6-10.3) mg/dl Phosphorus 2.8 (2.5-4.9) mg/dl Magnesium 1.9 (1.7-2.4) mg/dl Total Bilirubin 0.5 (0.2-1.0) mg/dl AST 14 (13-39) U/L ALT 21 (7-52) U/L Alkaline Phosphatase 55 (34-104) U/L Total Protein 4.1 L (6.0-8.3) gm/dl Albumin 2.1 L (3.4-5.0) gm/dl Globulin 2.0 L (2.5-4.0) gm/dl Albumin/Globulin Ratio 1.1 (0.9-2) PG Care Time/CCT Total # of Minutes Spent Total Time Spent with Patient: Total time spent is greater than 50% in coordination of care (as documented) at patient's floor/unit and/or counseling patient: Coding Level of Care Code 32998 SUB INP/OBS CARE 3/50MIN Diagnoses Adenocarcinoma of gallbladder C23
[2024-06-14] MEDS: POTASSIUM CHLORIDE PWD 20 MEQ PACK PO SCH (10:36)
--- NOTE | 2024-06-14 17:51 | Hospitalist Progress Note ---
Date of Service June 14, 2024 Assessment & Plan (1) Acute kidney injury superimposed on CKD: (2) Elevated lactic acid level: (3) Acute hyponatremia: (4) Adenocarcinoma of gallbladder: (5) History of DVT (deep vein thrombosis): (6) Anxiety: Plan Ms. 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 Patient found to have bowel obstruction. This bowel obstruction was management conservatively. Surgery signed off--stating that surgical intervention will only be pursued in an emergent situation. GI evaluated patient and spoke to Dr Morris, who placed stent. The concern of eroding tumor may be contributing to occult anemia. Patient to likely follow up with Dr. Morris. #Large Bowel Obstruction CT adb/pelvis noting transition point suggestive of obstruction Follow up KUB noting persistence of bowel obstruction Pt intiallyNPO, IV fluids, IV antiemetics, IV pain meds General surgery consulted, appreciate recs -recommended GI consult, ordered -recommended oncology consult, ordered inpt and pt's outpt oncologist on board as well -Palliative care consult discontinued at request of Per surgery can advance diet given pt having BMs. Further advanced to solids, soft on 06/13 GI recommended nonop management Continue to monitor Stable #Adenocarcinoma of gallbladder Last FOLFOX treatment 05/[address] Gross Continue Jarod 06/08- pt's family demanding chemotherapy reversal within 90 hours stating that their google research showed that pt is likely experiencing "toxic shock" related to her use of 5FU for chemotherapy. Would like a stat oncology consult. [facility] Oncology consulted. Further discussion with both pt's outpt oncologist Dr Gross via [employer] and via phone and inpt consult oncologist, who both state that pt is not in toxic shock and does not require chemo reversal. They state that is only done in extreme cases and usually in the ICU. As above GI consult for further recs per General Surgery. #Chemotherapy inducedNeutropenia #Lactic acidosis iso obstruction/dehydration Possible sepsis r/o Pt with progressing neutropenia, in the setting of recent chemotherapy Lactate initially 4.4 on admission ->normalized to 2.0 with fluids Chest XRAY with no acute infection UA unremarkable respiratory testing negative MRSA nares negative Blood Cx x1 set NGTD. 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 Tobacco Buyer/Oncologist Dr Christie on 06/08, s/p neupogen 480 mcg subcu for neutropenia for 3 days #Acute on chronic Anemia Hgb <7 on 06/11 s/p transfusion 1U pRBCs Holding home eliquis at this time FOBT POSITIVE Continue to monitor H/H GI re-consulted on 06/13 - will see pt after Eliquis on hold for 48hrs on 06/14 -No endoscopic interventions planned Repeat CBC in am, discuss resumption of eliquis #EUGENE superimposed on CKD resolved 2/2 decreased oral intake/possible infection following chemo tx 05/30 Creatinine 2.36 on admission (previously 1.7 eight days prior) Given 2L NSS in ED, continued maintenance fluid Nephrology consulted, appreciate recs Continue to monitor, improving Currently wnl #Generalized weakness #Hyponatremiaresolved #Hypernatremia Na 129 on admission Likely in setting of poor PO intake Noted improvement with fluids Nephrology consulted as above Continue to monitor, improving PT/OT, fall precautions #Hypokalemia #Hypocalcemia #Hypophosphatemia Replete as needed #Malnutrition Likely in setting of above Computer Hardware Technician consult #H/o DVT Continue Eliquis #HTN (hypertension) Continue atenolol #History of breast cancer S/p left partial mastectomy, XRT, 5 years of tamoxifen completed in August 2022 #Restless legs syndrome (RLS) Clonazepam HS PRN Diet: advancing, to full DVT Ppx: Eliquis Code status: FULL PCP: Loreta Dispo: PT/OT:PT recommends rehab, will consider [facility] Admission and Anticipated Discharge Date Admission Date: June 06, 2024 Subjective Evaluated by GI once more--no intervention Diet resumed, patient with intermittent cramping abdominal pain Denies any nausea, reports bowel movements and flatus Physical Exam Constitutional: WD/WN, vitals as above ill appearing Respiratory: normal respiratory effort, lungs clear to auscultation Cardiovascular: RRR, no murmur, no edema Gastrointestinal (Abdomen): normal bowel sounds, soft, nontender, no hepatosplenomegaly Results & Data Results & Data Vital Signs (Past 12 Hours) Vital Signs Temp Pulse Pulse Resp BP Pulse Ox O2 Del Method 06/14/24 15:00 36.6 C 74 18 115/60 96 Room Air 06/14/24 13:00 90 06/14/24 11:00 36.7 C 87 16 125/71 95 Room Air 06/14/24 07:53 36.8 C 77 18 101/72 96 Room Air 06/14/24 07:00 74 Laboratory Results Short CBC 06/14/24 Range/Units 06:23 WBC 5.44 (4.8-10.8) K/ul Hgb 7.6 L (12.0-16.0) g/dl Hct 23.3 L (37.0-47.0) % Plt Count 90 L (130-400) K/uL BMP 06/14/24 06:14 Sodium 143 Potassium 3.4 L Chloride 110 H Carbon Dioxide 28 BUN 30 H Creatinine 1.05 Glucose 114 H Calcium 7.2 L Liver Function 06/14/24 Range/Units 06:14 Total Bilirubin 0.5 (0.2-1.0) mg/dl AST 14 (13-39) U/L ALT 21 (7-52) U/L Alkaline Phosphatase 55 (34-104) U/L Albumin 2.1 L (3.4-5.0) gm/dl Medications Administered Home Medications Medication Instructions Recorded Confirmed Last Taken calcium carbonate 600 mg-vitamin 1 cap PO DAILY 04/08/22 06/06/24 Unknown D3 12.5 mcg (500 unit) capsule (Calcium 600 with Vitamin D3) atenolol 25 mg tablet 12.5 mg PO DAILY 12/03/22 06/06/24 Unknown clonazepam 0.5 mg tablet 0.5 mg PO HS PRN anxiety or sleep 12/03/22 06/06/24 Unknown magnesium 200 mg tablet 400 mg PO 2XD 06/29/23 06/06/24 Unknown apixaban 5 mg tablet (Eliquis) 5 mg PO BID 06/06/24 06/06/24 Unknown megestrol 625 mg/5 mL (125 mg/mL) 2 ml PO DAILY 06/06/24 06/06/24 Unknown oral suspension prochlorperazine maleate 10 mg 10 mg PO Q6H PRN Nausea 06/06/24 06/06/24 Unknown tablet Active Medications Generic Name Dose Route Start Last Admin Trade Name Freq PRN Reason Stop Dose Admin Apixaban 5 mg 06/07/24 09:00 06/12/24 09:44 Apixaban 5 Mg Tablet PO 07/07/24 08:59 Not Given BID JOSEPH Atenolol 12.5 mg 06/07/24 09:00 06/14/24 10:00 Atenolol 25 Mg Tablet PO 07/07/24 08:59 12.5 mg DAILY JOSEPH Administration Calcium/Vitamin D 1 tab 06/07/24 09:00 06/14/24 10:01 Calcium 600mg + Vit D 400 Iu Tab PO 07/07/24 08:59 1 tab DAILY JOSEPH Administration Heparin Sodium (Porcine) 5 ml 06/08/24 01:20 06/14/24 10:13 Heparin 100 Unit/Ml 5ml Flush FLUSH 07/08/24 01:19 5 ml PRN PRN Administration Flush Hydromorphone HCl 0.25 mg 06/08/24 18:48 06/13/24 20:34 Hydromorphone Inj 0.5 Mg/0.5 Ml Syr IV 06/22/24 18:47 0.25 mg Q6H PRN Administration Mod-Sev Pain (Scale 4-10) Prochlorperazine 5 mg/ Syringe 5 mls @ 5 mls/min 06/13/24 12:38 06/13/24 17:18 IV 07/13/24 12:37 5 mls/min Q6H PRN Administration Nausea And Vomiting Lidocaine 1 patch 06/13/24 10:30 06/14/24 11:57 Lidocaine 5% 1 Patch TD 07/13/24 10:29 1 patch QAM JOSEPH Administration Magnesium Oxide 400 mg 06/06/24 21:40 06/14/24 10:01 Magnesium Oxide 400 Mg Tab PO 07/06/24 21:39 400 mg BID JOSEPH Administration Megestrol Acetate 250 mg 06/07/24 09:00 06/14/24 10:00 Megestrol Acetate Susp 400 Mg/10 Ml Udc PO 07/07/24 08:59 250 mg DAILY JOSEPH Administration Miscellaneous 1 each 06/13/24 21:00 06/13/24 20:34 Remove Lidoderm Patch N/A 07/13/24 20:59 Not Given DAILY@2100 JOSEPH Potassium Chloride 40 meq 06/14/24 09:15 06/14/24 10:36 Potassium Chloride Pwd 20 Meq Pack PO 07/14/24 09:14 40 meq BID JOSEPH Administration Potassium Phosphate 2 tab 06/10/24 13:00 06/14/24 17:24 Pot Phosphate Monobasic W/ Sod Tab PO 07/10/24 12:59 2 tab QID JOSEPH Administration
[2024-06-15 08:57] LABS: Albumin Level 2.4 gm/dl (3.4-5.0); Bilirubin,Total 0.5 mg/dl (0.2-1.0); Calcium 7.7 mg/dl (8.6-10.3); Est GFR (African American) 59.5 ml/min; Est GFR (Non-African American) 51.3 ml/min; Globulin 2.4 gm/dl (2.5-4.0); Phosphorus 3.3 mg/dl (2.5-4.9); Potassium 3.9 mmol/L (3.5-5.1); Total Protein 4.8 gm/dl (6.0-8.3)
[2024-06-15 09:12] LABS: Basophils # (auto) 0.05 K/uL (0.00-0.20); Basophils % (auto) 0.6 %; Eosinophils # (auto) 0.02 K/uL (0.00-0.50); Eosinophils % (auto) 0.2 %; Hematocrit (blood only) 26.6 % (37.0-47.0); Hemoglobin 8.6 g/dl (12.0-16.0); Immature Granulocytes # (auto) 0.59 K/uL (0.01-0.20); Immature Granulocytes % (auto) 7.4 %; Lymphocytes # (auto) 1.97 K/uL (1.20-3.40); Lymphocytes % (auto) 24.6 %; Mean Corpuscular Hemoglobin 32.7 pg (25.0-34.0); Mean Corpuscular Hgb Conc 32.3 g/dL (32.0-36.0); Mean Corpuscular Volume 101.1 fL (80.0-100.0); Mean Platelet Volume 11.4 fL (9.4-12.4); Monocytes # (auto) 1.48 K/uL (0.11-0.59); Monocytes % (auto) 18.5 %; Neutrophils # (auto) 3.91 K/uL (1.40-6.50); Neutrophils % (auto) 48.7 %; Nucleated RBC # (auto) 0.12 K/uL (0.00-0.12); Nucleated RBC % (auto) 1.5 %; Platelet Count 153 K/uL (130-400); Polychromasia 1+; RDW Coefficient of Variation 22.5 % (11.5-14.5); Red Blood Count 2.63 M/uL (4.20-5.40); Reticulocyte % 5.05 % (0.50-2.00); Tear Drop Cells 1+; White Blood Count 8.02 K/ul (4.8-10.8)
--- NOTE | 2024-06-15 15:12 | Hospitalist Progress Note ---
Date of Service June 15, 2024 Assessment & Plan (1) Acute kidney injury superimposed on CKD: (2) Elevated lactic acid level: (3) Acute hyponatremia: (4) Adenocarcinoma of gallbladder: (5) History of DVT (deep vein thrombosis): (6) Anxiety: Plan Ms. 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 Patient found to have bowel obstruction. This bowel obstruction was management conservatively. Surgery signed off--stating that surgical intervention will only be pursued in an emergent situation. GI evaluated patient and spoke to Dr Morris, who placed stent. The concern of eroding tumor may be contributing to occult anemia. Patient to likely follow up with Dr. Morris. Hgb remains stable this am. Patient more lethargic, reporting poor night sleep. Eating well yesterday, but minimally today. Planning to monitor closely with repeat labs this afternoon for any signs of infection or changes Labs reviewed this am and do not suggest any EUGENE, transaminitis, or other contribuing factors. #Large Bowel Obstruction CT adb/pelvis noting transition point suggestive of obstruction Follow up KUB noting persistence of bowel obstruction Pt intiallyNPO, IV fluids, IV antiemetics, IV pain meds General surgery consulted, appreciate recs -recommended GI consult, ordered -recommended oncology consult, ordered inpt and pt's outpt oncologist on board as well -Palliative care consult discontinued at request of Per surgery can advance diet given pt having BMs. Further advanced to solids, soft on 06/13 GI recommended non-op management Continue to monitor #Adenocarcinoma of gallbladder Last FOLFOX treatment 05/[address] Gross Continue Megace 06/08- patient's family requested 5FU reversal, but not warranted at this time per Oncology As above GI consult for further recs per General Surgery. #Chemotherapy induced Neutropenia #Lactic acidosis iso obstruction/dehydration Possible sepsis r/o Pt with progressing neutropenia, in the setting of recent chemotherapy Lactate initially 4.4 on admission ->normalized to 2.0 with fluids Chest XRAY with no acute infection UA unremarkable respiratory testing negative MRSA nares negative Blood Cx x1 set NGTD. 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 Sorting Cows Worker/Oncologist Dr Christie on 06/08, s/p neupogen 480 mcg subcu for neutropenia for 3 days #Acute on chronic Anemia Hgb <7 on 06/11 s/p transfusion 1U pRBCs Holding home eliquis at this time FOBT POSITIVE Continue to monitor H/H GI re-consulted on 06/13 - will see pt after Eliquis on hold for 48hrs on 06/14 -No endoscopic interventions planned Repeat CBC in am, discuss resumption of eliquis #EUGENE superimposed on CKD resolved 2/2 decreased oral intake/possible infection following chemo tx 05/30 Creatinine 2.36 on admission (previously 1.7 eight days prior) Given 2L NSS in ED, continued maintenance fluid Nephrology consulted, appreciate recs Continue to monitor, improving Currently wnl #Generalized weakness #Hyponatremiaresolved #Hypernatremia Na 129 on admission Likely in setting of poor PO intake Noted improvement with fluids Nephrology consulted as above Continue to monitor, improving PT/OT, fall precautions #Hypokalemia #Hypocalcemia #Hypophosphatemia Replete as needed #Malnutrition Likely in setting of above Family Services Specialist consult #H/o DVT Continue Eliquis #HTN (hypertension) Continue atenolol #History of breast cancer S/p left partial mastectomy, XRT, 5 years of tamoxifen completed in August 2022 #Restless legs syndrome (RLS) Clonazepam HS PRN Diet: advancing, to full DVT Ppx: Eliquis Code status: FULL PCP: Loreta Dispo: PT/OT:PT recommends rehab, will consider [facility] Admission and Anticipated Discharge Date Admission Date: June 06, 2024 Subjective Reports poor night sleep and wanting to rest most of the day Denies any pain, just a general sense of feeling "unwell and tired" Remains afebrile, vitals stable with trends Physical Exam Constitutional: will awaken to voice, but falls back to sleep, answers questions appropriately Cardiovascular: tachycardic Gastrointestinal (Abdomen): normal bowel sounds, soft, nontender, no hepatosplenomegaly Neurologic: PERRL, EOMI, accommodation nl, no face palsy, no dysarthria Results & Data Results & Data Vital Signs (Past 12 Hours) Vital Signs Temp Pulse Pulse Resp BP Pulse Ox O2 Del Method 09/12/24 14:35 93 H 06/15/24 11:11 36.8 C 100 H 16 113/77 98 Room Air 06/15/24 07:46 36.9 C 97 H 16 121/86 99 Room Air 06/15/24 07:38 92 H Laboratory Results Short CBC 06/15/24 Range/Units 08:25 WBC 8.02 (4.8-10.8) K/ul Hgb 8.6 L (12.0-16.0) g/dl Hct 26.6 L (37.0-47.0) % Plt Count 153 D (130-400) K/uL BMP 06/15/24 08:25 Sodium 143 Potassium 3.9 Chloride 109 H Carbon Dioxide 28 BUN 35 H Creatinine 1.06 Glucose 137 H Calcium 7.7 L Liver Function 06/15/24 Range/Units 08:25 Total Bilirubin 0.5 (0.2-1.0) mg/dl AST 18 (13-39) U/L ALT 21 (7-52) U/L Alkaline Phosphatase 71 (34-104) U/L Albumin 2.4 L (3.4-5.0) gm/dl Medications Administered Home Medications Medication Instructions Recorded Confirmed Last Taken calcium carbonate 600 mg-vitamin 1 cap PO DAILY 04/08/22 06/06/24 Unknown D3 12.5 mcg (500 unit) capsule (Calcium 600 with Vitamin D3) atenolol 25 mg tablet 12.5 mg PO DAILY 12/03/22 06/06/24 Unknown clonazepam 0.5 mg tablet 0.5 mg PO HS PRN anxiety or sleep 12/03/22 06/06/24 Unknown magnesium 200 mg tablet 400 mg PO 2XD 06/29/23 06/06/24 Unknown apixaban 5 mg tablet (Eliquis) 5 mg PO BID 06/06/24 06/06/24 Unknown megestrol 625 mg/5 mL (125 mg/mL) 2 ml PO DAILY 06/06/24 06/06/24 Unknown oral suspension prochlorperazine maleate 10 mg 10 mg PO Q6H PRN Nausea 06/06/24 06/06/24 Unknown tablet Active Medications Generic Name Dose Route Start Last Admin Trade Name Freq PRN Reason Stop Dose Admin Apixaban 5 mg 06/07/24 09:00 06/12/24 09:44 Apixaban 5 Mg Tablet PO 07/07/24 08:59 Not Given BID [facility] Atenolol 12.5 mg 06/07/24 09:00 06/15/24 09:54 Atenolol 25 Mg Tablet PO 07/07/24 08:59 Not Given DAILY [facility] Calcium/Vitamin D 1 tab 06/07/24 09:00 06/15/24 09:54 Calcium 600mg + Vit D 400 Iu Tab PO 07/07/24 08:59 Not Given DAILY [facility] Heparin Sodium (Porcine) 5 ml 06/08/24 01:20 06/15/24 09:54 Heparin 100 Unit/Ml 5ml Flush FLUSH 07/08/24 01:19 5 ml PRN PRN Administration Flush Hydromorphone HCl 0.25 mg 06/08/24 18:48 06/13/24 20:34 Hydromorphone Inj 0.5 Mg/0.5 Ml Syr IV 06/22/24 18:47 0.25 mg Q6H PRN Administration Mod-Sev Pain (Scale 4-10) Prochlorperazine 5 mg/ Syringe 5 mls @ 5 mls/min 06/13/24 12:38 06/13/24 17:18 IV 07/13/24 12:37 5 mls/min Q6H PRN Administration Nausea And Vomiting Lidocaine 1 patch 06/13/24 10:30 06/15/24 08:33 Lidocaine 5% 1 Patch TD 07/13/24 10:29 1 patch QAM JOSEPH Administration Magnesium Oxide 400 mg 06/06/24 21:40 06/15/24 09:54 Magnesium Oxide 400 Mg Tab PO 07/06/24 21:39 Not Given BID [facility] Megestrol Acetate 250 mg 06/07/24 09:00 06/15/24 09:54 Megestrol Acetate Susp 400 Mg/10 Ml Udc PO 07/07/24 08:59 Not Given DAILY [facility] Miscellaneous 1 each 06/13/24 21:00 06/14/24 20:19 Remove Lidoderm Patch N/A 07/13/24 20:59 1 each DAILY@2100 JOSEPH Administration Potassium Chloride 40 meq 06/14/24 09:15 06/15/24 09:54 Potassium Chloride Pwd 20 Meq Pack PO 07/14/24 09:14 Not Given BID [facility] Potassium Phosphate 2 tab 06/10/24 13:00 06/15/24 13:12 Pot Phosphate Monobasic W/ Sod Tab PO 07/10/24 12:59 Not Given QID JOSEPH
[2024-06-15] MEDS: DEXTROSE 5% 1,000 ML IV SCH (15:23)
--- NOTE | 2024-06-15 16:28 | Communication Note ---
Date of Service: June 15, 2024 Patient lethargic through out day wakes to verbal command, responds mostly appropriately on repeated questioning No focal deficit apparent D5W started Repeat labs including ABG and lactate biofire No source of infection, exam benign at this time CT head for encephalopathy
--- NOTE | 2024-06-15 16:54 | CT Scan Report ---
CT OF THE HEAD WITHOUT CONTRAST CLINICAL HISTORY: Altered mental status. COMPARISON STUDY: Head CT August 01, 2016. CT DOSE: 625.8 mGy.cm TECHNIQUE: Helical axial images of the head were obtained without IV contrast. Automated exposure con trol was utilized for the study. A dose lowering technique was utilized adhering to the principles o f ALARA. FINDINGS: No acute intracranial hemorrhage, midline shift or mass effect is present. The ventricular system is unremarkable. The basal cisterns are patent. No extra-axial collections are present. There are no findings to suggest acute dural sinus thrombosis or acute territorial infarct. No significant calvarial abnormalities are present. A small mucous retention cyst within the left maxillary sinus is incidentally noted. IMPRESSION: No acute intracranial findings. ACT 112: Negative or not required by law. Electronically signed by: Jerel Jones M.D. 06/15/2024 4:53 PM
[2024-06-15 17:12] LABS: Base Excess ABG 1.7 mEq/L (-9-1.8); HCO3 ABG 23 mmol/L (19-24); Oxygen Saturation ABG 97.7 % (90-95); PCO2 ABG 27 mmHg (35-46); PO2 ABG 110 mmHg (80-95)
[2024-06-15 17:24] LABS: Hematocrit (blood only) 27.5 % (37.0-47.0); Hemoglobin 8.6 g/dl (12.0-16.0); Mean Corpuscular Hemoglobin 32.1 pg (25.0-34.0); Mean Corpuscular Hgb Conc 31.3 g/dL (32.0-36.0); Mean Corpuscular Volume 102.6 fL (80.0-100.0); Mean Platelet Volume 11.3 fL (9.4-12.4); Nucleated RBC % (auto) 1.3 %; Platelet Count 148 K/uL (130-400); RDW Coefficient of Variation 22.6 % (11.5-14.5); RDW Standard Deviation 81.6 fL (36.4-46.3); Red Blood Count 2.68 M/uL (4.20-5.40); White Blood Count 7.81 K/ul (4.8-10.8)
[2024-06-15 17:36] LABS: BUN Creatinine Ratio 33.9 (10-20); Calcium 7.6 mg/dl (8.6-10.3); Creatinine Clr Calc Pharmacy 43.8 ml/min; Est GFR (African American) 57.5 ml/min; Est GFR (Non-African American) 49.6 ml/min; Potassium 3.6 mmol/L (3.5-5.1)
[2024-06-15 17:54] LABS: pH ABG 7.54 (7.35-7.45)
[2024-06-15 17:57] LABS: Allen Test Pos (Pos)
[2024-06-15 19:39] LABS: Adenovirus PCR Not Detected (NotDetected); Bordetella parapertussis PCR Not Detected (NotDetected); Bordetella pertussis PCR Not Detected (NotDetected); Chlamydia pneumoniae PCR Not Detected (NotDetected); Coronavirus 229E PCR Not Detected (NotDetected); Coronavirus CoV-2 (COVID19)PCR Not Detected (NotDetected); Coronavirus HKU1 PCR Not Detected (NotDetected); Coronavirus NL63 PCR Not Detected (NotDetected); Coronavirus OC43PCR Not Detected (NotDetected); Human Metapneumovirus PCR Not Detected (NotDetected); Influenza A PCR Not Detected (NotDetected); Influenza B PCR Not Detected (NotDetected); Mycoplasma pneumoniae PCR Not Detected (NotDetected); Parainfluenza Virus 1 PCR Not Detected (NotDetected); Parainfluenza Virus 2 PCR Not Detected (NotDetected); Parainfluenza Virus 3 PCR Not Detected (NotDetected); Parainfluenza Virus 4 PCR Not Detected (NotDetected); Respiratory Syncytial VirusPCR Not Detected (NotDetected); Rhinovirus/Enterovirus PCR Not Detected (NotDetected)
[2024-06-16 06:36] LABS: Hematocrit (blood only) 24.9 % (37.0-47.0); Hemoglobin 7.9 g/dl (12.0-16.0); Mean Corpuscular Hgb Conc 31.7 g/dL (32.0-36.0); Mean Corpuscular Volume 100.8 fL (80.0-100.0); Mean Platelet Volume 10.8 fL (9.4-12.4); Nucleated RBC # (auto) 0.06 K/uL (0.00-0.12); Nucleated RBC % (auto) 0.7 %; Platelet Count 162 K/uL (130-400); RDW Standard Deviation 79.4 fL (36.4-46.3); Red Blood Count 2.47 M/uL (4.20-5.40); White Blood Count 8.13 K/ul (4.8-10.8)
[2024-06-16 06:54] LABS: BUN Creatinine Ratio 34.5 (10-20); Calcium 7.4 mg/dl (8.6-10.3); Creatinine Clr Calc Pharmacy 43.4 ml/min; Est GFR (African American) 56.9 ml/min; Est GFR (Non-African American) 49.1 ml/min; Magnesium 1.9 mg/dl (1.7-2.4); Phosphorus 3.2 mg/dl (2.5-4.9); Potassium 3.3 mmol/L (3.5-5.1)
[2024-06-16] MEDS: POTASSIUM CHLORIDE / WTR 10 MEQ/100 ML PLCT IV SCH (08:58)
[2024-06-16 10:31] LABS: Appearance Urine Cloudy (Clear); Bacteria Urine Automated None Seen (None Seen); Bilirubin Urine Negative (Negative); Blood Urine 1+ (Negative); Color Urine Yellow; Epithelial Cell Urine Auto 0-2 /hpf (0-2); Glucose Urine UA Negative (Negative); Ketones Urine Negative (Negative); Leukocyte Esterase Urine 1+ (Negative); Nitrite Urine Negative (Negative); Protein Urine 2+ (Negative); Specific Gravity Urine 1.019 (1.000-1.030); Urobilinogen Urine Negative (Negative); WBC Urine Automated 21-50 /hpf (0-5)
[2024-06-16 10:32] LABS: Cast Urine Automated 0-2 /lpf (0-2)
[2024-06-16] MEDS: GADOBUTROL 65ML VIAL IV ONE (11:40)
--- NOTE | 2024-06-16 13:20 | Magnetic Resonance Report ---
MR brain wo/w con CLINICAL HISTORY: continued encephalpathy iso malignancy TECHNIQUE: Multiplanar and multisequence MR images of the brain were obtained prior to and following administration of gadolinium contrast. Comparison: Comparison is made to CT head 06/15/2024 FINDINGS: No abnormal restricted diffusion is identified. Foci of T2 and FLAIR hyperintensity are noted in the paraventricular areas consistent with chronic small vessel ischemic disease. Ex vacuo ventriculomegal y and sulcal enlargement is noted compatible with diffuse volume loss. No mass or abnormal enhancemen t is seen. There is no mass effect or midline shift. There is no evidence of acute intraparenchymal h emorrhage. No extra axial fluid collections are seen. The corpus callosum, pituitary gland, and cereb ellar tonsils appear grossly unremarkable. Flow voids of the major intracranial arterial vessels are identified. Sinus mucosal thickening is see n most prominent in the left maxillary sinus. IMPRESSION: No acute abnormality and in particular no evidence of metastatic disease. ACT 112: Negative or not required by law. Electronically signed by: Benji Fernandez M.D. 06/16/2024 1:18 PM
--- NOTE | 2024-06-16 13:46 | Hospitalist Progress Note ---
Date of Service June 16, 2024 Assessment & Plan (1) Acute kidney injury superimposed on CKD: (2) Elevated lactic acid level: (3) Acute hyponatremia: (4) Adenocarcinoma of gallbladder: (5) History of DVT (deep vein thrombosis): (6) Anxiety: Plan Ms. 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 Patient found to have bowel obstruction. This bowel obstruction was management conservatively. Surgery signed off--stating that surgical intervention will only be pursued in an emergent situation. GI evaluated patient and spoke to Dr Morris, who placed stent. The concern of eroding tumor may be contributing to occult anemia. Patient to likely follow up with Dr. Morris. Patient remains lethargic Extensive work up for resp alkalosis and secondary metabolic alklosis ongoing -Metabolic likely 2/2 GI loses -Resp: r/o hyperammonemia, doesn't appear tachypneic/anxious #Acute toxic metabolic encephalopathy Biofire negative, UA negative MRI negative Ammonia 43 likely questionable amount of delirium CTM, resolve below #Acute respiratory alkalosis secondary metabolic alkalosis #Diarrhea Gi losses likely etiology of metabolic alkalosis Resp alkalosis -MRI negative for clear central cause -Ammonia 43 -No pain/anxiety contributing to tachypnea C diff to help resolve diarrhea Encourage PO #Large Bowel Obstruction CT adb/pelvis noting transition point suggestive of obstruction Follow up KUB noting persistence of bowel obstruction Pt intiallyNPO, IV fluids, IV antiemetics, IV pain meds General surgery consulted, appreciate recs -recommended GI consult--signed off no further recommendations non-op management -recommended oncology consult, ordered inpt and pt's outpt oncologist on board as well -Palliative care consult discontinued at request of Per surgery can advance diet given pt having BMs. Further advanced to solids, soft on 06/13 CTM #Adenocarcinoma of gallbladder Last FOLFOX treatment 05/[address] Ginny Nixon Megace 06/08- patient's family requested 5FU reversal, but not warranted at this time per Oncology As above GI consult for further recs per General Surgery. #Chemotherapy induced Neutropenia #Lactic acidosis iso obstruction/dehydration Possible sepsis r/o Pt with progressing neutropenia, in the setting of recent chemotherapy Lactate initially 4.4 on admission ->normalized to 2.0 with fluids Chest XRAY with no acute infection UA unremarkable respiratory testing negative MRSA nares negative Blood Cx x1 set NGTD. 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 Field Assembly Supervisor/Oncologist Dr Christie on 06/08, s/p neupogen 480 mcg subcu for neutropenia for 3 days #Acute on chronic Anemia Hgb <7 on 06/11 s/p transfusion 1U pRBCs Holding home eliquis at this time FOBT POSITIVE Continue to monitor H/H GI re-consulted on 06/13 - will see pt after Eliquis on hold for 48hrs on 06/14 -No endoscopic interventions planned resume Eliquis #EUGENE superimposed on CKD resolved 2/2 decreased oral intake/possible infection following chemo tx 05/30 Creatinine 2.36 on admission (previously 1.7 eight days prior) Given 2L NSS in ED, continued maintenance fluid Nephrology consulted, appreciate recs Continue to monitor, improving Currently wnl #Generalized weakness #Hyponatremiaresolved #Hypernatremia Na 129 on admission Likely in setting of poor PO intake Noted improvement with fluids Nephrology consulted as above Continue to monitor, improving PT/OT, fall precautions Will go to rehab when stable #Hypokalemia #Hypocalcemia #Hypophosphatemia Replete as needed #Malnutrition Likely in setting of above Business Resiliency Manager consult #H/o DVT Continue Eliquis #HTN (hypertension) Continue atenolol #History of breast cancer S/p left partial mastectomy, XRT, 5 years of tamoxifen completed in August 2022 #Restless legs syndrome (RLS) Clonazepam HS PRN Diet: advancing, to full DVT Ppx: Eliquis Code status: FULL PCP: Loreta Dispo: PT/OT:PT recommends rehab, will [facility] Admission and Anticipated Discharge Date Admission Date: June 06, 2024 Subjective encephalopathic through yesterday and into today Will answer questions appropriately overall but remains lethargic Physical Exam Constitutional: WD/WN, vitals as above lethargic, quick to fall asleep Respiratory: normal respiratory effort, lungs clear to auscultation Cardiovascular: RRR, no murmur, no edema Gastrointestinal (Abdomen): normal bowel sounds, soft, nontender, no hepatosplenomegaly Results & Data Results & Data Vital Signs (Past 12 Hours) Vital Signs Temp Pulse Pulse Resp BP Pulse Ox O2 Del Method 06/16/24 12:27 36.5 C 87 16 106/73 99 Room Air 06/16/24 07:35 36.7 C 92 H 105/72 97 Room Air 06/16/24 07:16 90 06/16/24 03:16 36.5 C 78 18 100/67 97 Room Air Laboratory Results Short CBC 06/15/24 06/16/24 Range/Units 17:03 06:12 WBC 7.81 8.13 (4.8-10.8) K/ul Hgb 8.6 L 7.9 L (12.0-16.0) g/dl Hct 27.5 L 24.9 L (37.0-47.0) % Plt Count 148 162 (130-400) K/uL BMP 06/15/24 06/16/24 17:03 06:12 Sodium 141 139 Potassium 3.6 3.3 L Chloride 109 H 106 Carbon Dioxide 24 27 BUN 37 H 38 H Creatinine 1.09 1.10 Glucose 138 H 139 H Calcium 7.6 L 7.4 L Urine 06/16/24 Range/Units 09:55 Urine Color Yellow Urine Appearance Cloudy A (Clear) Urine pH 6.0 (4.5-7.5) Ur Specific [place] 1.019 (1.000-1.030) Urine Protein 2+ H (Negative) Urine Glucose (UA) Negative (Negative) Medications Administered Home Medications Medication Instructions Recorded Confirmed Last Taken calcium carbonate 600 mg-vitamin 1 cap PO DAILY 04/08/22 06/06/24 Unknown D3 12.5 mcg (500 unit) capsule (Calcium 600 with Vitamin D3) atenolol 25 mg tablet 12.5 mg PO DAILY 12/03/22 06/06/24 Unknown clonazepam 0.5 mg tablet 0.5 mg PO HS PRN anxiety or sleep 12/03/22 06/06/24 Unknown magnesium 200 mg tablet 400 mg PO 2XD 06/29/23 06/06/24 Unknown apixaban 5 mg tablet (Eliquis) 5 mg PO BID 06/06/24 06/06/24 Unknown megestrol 625 mg/5 mL (125 mg/mL) 2 ml PO DAILY 06/06/24 06/06/24 Unknown oral suspension prochlorperazine maleate 10 mg 10 mg PO Q6H PRN Nausea 06/06/24 06/06/24 Unknown tablet Active Medications Generic Name Dose Route Start Last Admin Trade Name Boaz PRN Reason Stop Dose Admin Apixaban 5 mg 06/07/24 09:00 06/16/24 09:02 Apixaban 5 Mg Tablet PO 07/07/24 08:59 5 mg BID JOSEPH Administration Atenolol 12.5 mg 06/07/24 09:00 06/16/24 09:01 Atenolol 25 Mg Tablet PO 07/07/24 08:59 12.5 mg DAILY JOSEPH Administration Calcium/Vitamin D 1 tab 06/07/24 09:00 06/16/24 09:13 Calcium 600mg + Vit D 400 Iu Tab PO 07/07/24 08:59 Not Given DAILY JOSEPH Heparin Sodium (Porcine) 5 ml 06/08/24 01:20 06/15/24 09:54 Heparin 100 Unit/Ml 5ml Flush FLUSH 07/08/24 01:19 5 ml PRN PRN Administration Flush Hydromorphone HCl 0.25 mg 06/08/24 18:48 06/13/24 20:34 Hydromorphone Inj 0.5 Mg/0.5 Ml Syr IV 06/22/24 18:47 0.25 mg Q6H PRN Administration Mod-Sev Pain (Scale 4-10) Prochlorperazine 5 mg/ Syringe 5 mls @ 5 mls/min 06/13/24 12:38 06/13/24 17:18 IV 07/13/24 12:37 5 mls/min Q6H PRN Administration Nausea And Vomiting Lidocaine 1 patch 06/13/24 10:30 06/16/24 09:00 Lidocaine 5% 1 Patch TD 07/13/24 10:29 1 patch QAM JOSEPH Administration Magnesium Oxide 400 mg 06/06/24 21:40 06/16/24 09:13 Magnesium Oxide 400 Mg Tab PO 07/06/24 21:39 Not Given BID JOSEPH Megestrol Acetate 250 mg 06/07/24 09:00 06/16/24 07:46 Megestrol Acetate Susp 400 Mg/10 Ml Udc PO 07/07/24 08:59 250 mg DAILY JOSEPH Administration Miscellaneous 1 each 06/13/24 21:00 09/12/24 21:30 Remove Lidoderm Patch N/A 07/13/24 20:59 1 each DAILY@2100 JOSEPH Administration Potassium Chloride 40 meq 06/14/24 09:15 06/16/24 09:13 Potassium Chloride Pwd 20 Meq Pack PO 07/14/24 09:14 Not Given BID JOSEPH Potassium Phosphate 2 tab 06/10/24 13:00 06/16/24 12:56 Pot Phosphate Monobasic W/ Sod Tab PO 07/10/24 12:59 Not Given QID JOSEPH
[2024-06-16] MEDS: PSYLLIUM or GUAR GUM FIBER 4GM PACKET PO SCH (14:45)
[2024-06-16] MEDS: DEXTROSE 5% 500 ML IV SCH (16:02)
--- NOTE | 2024-06-16 18:42 | Neurology Consultation ---
Date of Consultation June 16, 2024 Assessment & Plan (1) Encephalopathy acute: This is suspected to be multifactorial, there is no focality to her exam. MRI shows no acute changes, chronic leukoencephalopathy with significant atrophy. Plan Explained to the the consult of encephalopathy, neurotoxicity of 5-FU cannot be entirely ruled out. Can obtain an EEG which will likely show slowing, rule out seizure activity which is less likely Continue supportive care and IV hydration. Continue to optimize her sodium levels. PT OT and encouragement Telehealth Consultation Telehealth Information Telehealth Information: I performed this visit using a real-time telehealth connection between my location and the patients location ([facility]). After connecting through interactive tele-video, patient was identified by name and date of and/or wristband check.Patient (or authorized healthcare benefits representative) was informed that this was a telemedicine visit and it was being conducted confidentially over secure lines. My office door was closed and no one else was present in the room with me.Patient (or authorized healthcare benefits representative) provided consent to proceed with the visit, expressed an understanding of privacy and security of the telemedicine visit, and gave permission to have a hospital benefits representative in the room in order to assist with the visit and to conduct portions of the visit, as needed. I informed the patient (or authorized healthcare benefits representative) that I reviewed their record and presented the opportunity for them to ask any questions regarding the visit today. The patient agreed to participate. History of Present Illness Reason for Consultation: Altered mental status, generalized weakness Requesting Physician: Laly Khan MD Attending Physician: Laly Khan MD History of Present Illness 74-year-old female patient with PMH of HTN, h/o DVT on Eliquis, CKD III, history of breast CVA 5 years ago. Currently being treated for adenocarcinoma of the gallbladder,hypothyroidism, prediabetes, EUGENE superimposed on CKD. The patient had received chemotherapy late May, with 2 days of 5-FU through a pump. She was admitted for worsening lethargy, was found to have EUGENE. Also being treated for hyponatremia and lactic acidosis. Her ammonia level were checked to be 43, her lactate level has trended down. Her sodium has improved. The patient remains with waxing and waning mental status. MRI of the brain was done and showed no acute changes. Patient and deny any focality denies any new blurred vision slurred speech focal numbness or weakness. She has not been ambulating much due to generalized weakness the tells me that at baseline the patient usually can go grocery shopping and push the cart and come back and cook new recipes from the Internet. Allergies Allergy/AdvReac Type Severity Reaction Status Date / Time latex Allergy Mild Rash Verified 03/02/24 10:30 sulfamethoxazole Allergy Unknown SWELLING Verified 03/02/24 10:30 ON FACE AND LIPS trimethoprim Allergy Unknown SWELLING Verified 03/02/24 10:30 ON FACE AND LIPS cayenne pepper fruits AdvReac Unknown "spicy Verified 06/06/24 22:25 foods" cause swelling metformin AdvReac Unknown mood Verified 03/02/24 10:30 disorder per [facility] record Home Medications Medication Instructions Recorded Confirmed Type calcium carbonate 600 mg-vitamin 1 cap PO DAILY 04/08/22 06/06/24 History D3 12.5 mcg (500 unit) capsule (Calcium 600 with Vitamin D3) atenolol 25 mg tablet 12.5 mg PO DAILY 12/03/22 06/06/24 History clonazepam 0.5 mg tablet 0.5 mg PO HS PRN anxiety or sleep 12/03/22 06/06/24 History magnesium 200 mg tablet 400 mg PO 2XD 06/29/23 06/06/24 History apixaban 5 mg tablet (Eliquis) 5 mg PO BID 06/06/24 06/06/24 History megestrol 625 mg/5 mL (125 mg/mL) 2 ml PO DAILY 06/06/24 06/06/24 History oral suspension prochlorperazine maleate 10 mg 10 mg PO Q6H PRN Nausea 06/06/24 06/06/24 History tablet Patient History Medical History History of DVT (deep vein thrombosis) Adenocarcinoma of gallbladder Restless legs syndrome (RLS) Anxiety 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) HTN (hypertension) Surgical History H/O partial mastectomy Family History Other Breast cancer Hypertension Social History Smoking Status: Never smoker Hx Alcohol Use: No Hx Substance Use: No Preferred Language: Kiswahili Communication Ability: Effective Watershed Manager Required: No Beliefs That Will Affect Care: Evangelical Current Living Situation: Spouse Current Living Situation Comment: Lives at home Other Information That Helps Us Care for You: No Feels Safe at Home: Yes Safety Concerns: Feels Safe At This Time Assistive Devices: Other Review of Systems All negative except for the points mentioned in HPI Physical Exam General Constitutional: Appearance normally developed Head and face: normocephalic and atraumatic Eyes: no ptosis, no anisocoria, and no dysconjugate gaze Respiratory: normal effort Cardiovascular: regular rhythm and regular rate Abdomen: non distended Skin: no rashes, lesions, or ulcers noted Psychiatric: normal judgement and insight, normal mood, and normal affect NEUROLOGIC EXAMINATION: Mental Status:alert, oriented to time, place, person, normal recent memory, normal remote memory, normal attention span, normal concentration, normal language and normal fund of knowledge Cranial Nerves: CN 2 - no visual defect on confrontation and pupils round, equal, reactive to light CN 3, 4, 6 - extra-ocular movements intact and no nystagmus CN 5 - facial sensation intact CN 7 - no facial asymmetry CN 8 - intact hearing CN 9, 10 - palate symmetric, normal gag CN 11 - good shoulder shrug CN 12 - tongue midline MOTOR: Strength was at least antigravity throughout, Pronator drift was absent and There were no abnormal movements SENSATION: intact and symmetric to pinprick, light touch, vibration and joint position GAIT: Deferred to due to generalized weakness COORDINATION: no ataxia with finger to nose testing and heel to bautista testing REFLEXES: cannot assess over telemedicine Results & Data Vital Signs (Past 12 Hours) Vital Signs Temp Pulse Pulse Resp BP Pulse Ox O2 Del Method 06/16/24 15:48 36.8 C 90 16 104/74 97 Room Air 06/16/24 14:48 87 06/16/24 12:27 36.5 C 87 16 106/73 99 Room Air 06/16/24 07:35 36.7 C 92 H 105/72 97 Room Air 06/16/24 07:16 90 Laboratory Results Abnormal lab results 06/16/24 06/16/24 Range/Units 06:12 09:55 RBC 2.47 L (4.20-5.40) M/uL Hgb 7.9 L (12.0-16.0) g/dl Hct 24.9 L (37.0-47.0) % MCV 100.8 H (80.0-100.0) fL MCHC 31.7 L (32.0-36.0) g/dL RDW Std Deviation 79.4 H (36.4-46.3) fL RDW Coeff of Vicky 22.0 H (11.5-14.5) % Potassium 3.3 L (3.5-5.1) mmol/L BUN 38 H (6-23) mg/dl BUN/Creatinine Ratio 34.5 H (10-20) Glucose 139 H (70-99(Fasting)) mg/dl Calcium 7.4 L (8.6-10.3) mg/dl Urine Appearance Cloudy A (Clear) Urine Protein 2+ H (Negative) Urine Blood 1+ H (Negative) Ur Leukocyte Esterase 1+ H (Negative) Urine WBC (Auto) 21-50 H (0-5) /hpf Urine RBC (Auto) 3-5 H (0-2) /hpf Urine Yeast Present A (None Prsent) Diagnostic Findings Brain MRI 06/16/24 08:37 MR brain wo/w con CLINICAL HISTORY: continued encephalpathy iso malignancy TECHNIQUE: Multiplanar and multisequence MR images of the brain were obtained prior to and following administration of gadolinium contrast. Comparison: Comparison is made to CT head 06/15/2024 FINDINGS: No abnormal restricted diffusion is identified. Foci of T2 and FLAIR hype rintensity are noted in the paraventricular areas consistent with chronic small vessel ischemic disease. Ex vacuo ventriculomegaly and sulcal enlargement is noted compatible with diffuse volume loss. No mass or abnormal enhancement is seen. There is no mass effect or midline shift. There is no evidence of acute intraparenchymal hemorrhage. No extra axial fluid collections are seen. The corpus callosum, pituitary gland, and cerebellar tonsils appear grossly unremarkable. Flow voids of the major intracranial arterial vessels are identified. Sinus mucosal thickening is seen most prominent in the left maxillary sinus. IMPRESSION: No acute abnormality and in particular no evidence of metastatic disease. ACT 112: Negative or not required by law. Electronically signed by: Benji Fernandez M.D. 06/16/2024 1:18 PM Medications Administered Home Medications Medication Instructions Recorded Confirmed Last Taken calcium carbonate 600 mg-vitamin 1 cap PO DAILY 04/08/22 06/06/24 Unknown D3 12.5 mcg (500 unit) capsule (Calcium 600 with Vitamin D3) atenolol 25 mg tablet 12.5 mg PO DAILY 12/03/22 06/06/24 Unknown clonazepam 0.5 mg tablet 0.5 mg PO HS PRN anxiety or sleep 12/03/22 06/06/24 Unknown magnesium 200 mg tablet 400 mg PO 2XD 06/29/23 06/06/24 Unknown apixaban 5 mg tablet (Eliquis) 5 mg PO BID 06/06/24 06/06/24 Unknown megestrol 625 mg/5 mL (125 mg/mL) 2 ml PO DAILY 06/06/24 06/06/24 Unknown oral suspension prochlorperazine maleate 10 mg 10 mg PO Q6H PRN Nausea 06/06/24 06/06/24 Unknown tablet Active Medications Generic Name Dose Route Start Last Admin Trade Name Freq PRN Reason Stop Dose Admin Apixaban 5 mg 06/07/24 09:00 06/16/24 09:02 Apixaban 5 Mg Tablet PO 07/07/24 08:59 5 mg BID JOSEPH Administration Atenolol 12.5 mg 06/07/24 09:00 06/16/24 09:01 Atenolol 25 Mg Tablet PO 07/07/24 08:59 12.5 mg DAILY JOSEPH Administration Calcium/Vitamin D 1 tab 06/07/24 09:00 06/16/24 09:13 Calcium 600mg + Vit D 400 Iu Tab PO 07/07/24 08:59 Not Given DAILY JOSEPH Heparin Sodium (Porcine) 5 ml 06/08/24 01:20 06/15/24 09:54 Heparin 100 Unit/Ml 5ml Flush FLUSH 07/08/24 01:19 5 ml PRN PRN Administration Flush Hydromorphone HCl 0.25 mg 06/08/24 18:48 06/13/24 20:34 Hydromorphone Inj 0.5 Mg/0.5 Ml Syr IV 06/22/24 18:47 0.25 mg Q6H PRN Administration Mod-Sev Pain (Scale 4-10) Prochlorperazine 5 mg/ Syringe 5 mls @ 5 mls/min 06/13/24 12:38 06/13/24 17:18 IV 07/13/24 12:37 5 mls/min Q6H PRN Administration Nausea And Vomiting Dextrose 500 mls @ 80 mls/hr 06/16/24 15:45 06/16/24 16:02 D5w IV 07/16/24 15:44 80 mls/hr .Q6H15M JOSEPH Administration Lidocaine 1 patch 06/13/24 10:30 06/16/24 09:00 Lidocaine 5% 1 Patch TD 07/13/24 10:29 1 patch QAM JOSEPH Administration Magnesium Oxide 400 mg 06/06/24 21:40 06/16/24 09:13 Magnesium Oxide 400 Mg Tab PO 07/06/24 21:39 Not Given BID JOSEPH Megestrol Acetate 250 mg 06/07/24 09:00 06/16/24 07:46 Megestrol Acetate Susp 400 Mg/10 Ml Udc PO 07/07/24 08:59 250 mg DAILY JOSEPH Administration Miscellaneous 1 each 06/13/24 21:00 06/15/24 21:30 Remove Lidoderm Patch N/A 07/13/24 20:59 1 each DAILY@2100 JOSEPH Administration Potassium Chloride 40 meq 06/14/24 09:15 06/16/24 09:13 Potassium Chloride Pwd 20 Meq Pack PO 07/14/24 09:14 Not Given BID JOSEPH Potassium Phosphate 2 tab 06/10/24 13:00 06/16/24 16:02 Pot Phosphate Monobasic W/ Sod Tab PO 07/10/24 12:59 Not Given QID JOSEPH Psyllium Hydrophilic Mucilloid 4 gm 06/16/24 13:45 06/16/24 14:45 Psyllium Or Guar Gum Fiber 4gm Packet PO 07/16/24 13:44 4 gm QAM JOSEPH Administration
[2024-06-17] MEDS: SACCHAROMYCES BOULARDII 250 MG CAP PO SCH (07:49)
[2024-06-17 08:09] LABS: Hematocrit (blood only) 25.2 % (37.0-47.0); Hemoglobin 7.9 g/dl (12.0-16.0); Mean Corpuscular Hemoglobin 32.1 pg (25.0-34.0); Mean Corpuscular Hgb Conc 31.3 g/dL (32.0-36.0); Mean Corpuscular Volume 102.4 fL (80.0-100.0); Mean Platelet Volume 10.4 fL (9.4-12.4); Nucleated RBC # (auto) 0.04 K/uL (0.00-0.12); Nucleated RBC % (auto) 0.4 %; Platelet Count 175 K/uL (130-400); RDW Coefficient of Variation 21.6 % (11.5-14.5); Red Blood Count 2.46 M/uL (4.20-5.40); White Blood Count 9.63 K/ul (4.8-10.8)
[2024-06-17 08:29] LABS: Albumin Globulin Ratio 1.1 (0.9-2); Albumin Level 2.1 gm/dl (3.4-5.0); BUN Creatinine Ratio 31.9 (10-20); Bilirubin,Total 0.4 mg/dl (0.2-1.0); Calcium 7.1 mg/dl (8.6-10.3); Creatinine Clr Calc Pharmacy 42.3 ml/min; Est GFR (African American) 55.1 ml/min; Est GFR (Non-African American) 47.5 ml/min; Magnesium 1.7 mg/dl (1.7-2.4); Phosphorus 2.6 mg/dl (2.5-4.9); Potassium 3.7 mmol/L (3.5-5.1); Total Protein 4.1 gm/dl (6.0-8.3)
[2024-06-17] MEDS: DEXTROSE 5% 1,000 ML IV SCH (09:43)
--- NOTE | 2024-06-17 13:05 | Hospitalist Progress Note ---
Date of Service June 17, 2024 Assessment & Plan (1) Acute kidney injury superimposed on CKD: (2) Elevated lactic acid level: (3) Acute hyponatremia: (4) Adenocarcinoma of gallbladder: (5) History of DVT (deep vein thrombosis): (6) Anxiety: Plan Ms. 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 Patient found to have bowel obstruction. This bowel obstruction was management conservatively. Surgery signed off--stating that surgical intervention will only be pursued in an emergent situation. GI evaluated patient and spoke to Dr Morris, who placed stent. The concern of eroding tumor may be contributing to occult anemia. Patient to likely follow up with Dr. Morris. Patient remains lethargic Extensive work up for resp alkalosis and secondary metabolic alklosis ongoing -Metabolic likely 2/2 GI loses -Resp: r/o hyperammonemia, doesn't appear tachypneic/anxious Neurology consulted who notes this is likely multifactorial and best managed with supportive care #Acute toxic metabolic encephalopathy Biofire negative, UA negative MRI negative Ammonia 43 Neurology consulted: chronic leukoencephalopathy, cannot r/o neurotoxicity EEG pending PT/OT Supportive care #Transaminitis #Adenocarcinoma of gallbladder Last FOLFOX treatment 05/[address] Ginny Olivera 06/08- patient's family requested 5FU reversal, but not warranted at this time per Oncology As above GI consult for further recs per General Surgery. CMP this am revealed liver enzymes elevated mildly Exam benign this am Trend CMP in am Low threshold for reimage #Acute respiratory alkalosis secondary metabolic alkalosis #Diarrhea Gi losses likely etiology of metabolic alkalosis Resp alkalosis -MRI negative for clear central cause -Ammonia 43 -No pain/anxiety contributing to tachypnea C diff to help resolve diarrhea Encourage PO #Large Bowel Obstruction CT adb/pelvis noting transition point suggestive of obstruction Follow up KUB noting persistence of bowel obstruction Pt intially NPO, IV fluids, IV antiemetics, IV pain meds General surgery consulted, appreciate recs -recommended GI consult--signed off no further recommendations non-op management -recommended oncology consult, ordered inpt and pt's outpt oncologist on board as well -Palliative care consult discontinued at request of Per surgery can advance diet given pt having BMs. Further advanced to solids, soft on 06/13 CTM #Chemotherapy induced Neutropenia #Lactic acidosis iso obstruction/dehydration Possible sepsis r/o Pt with progressing neutropenia, in the setting of recent chemotherapy Lactate initially 4.4 on admission ->normalized to 2.0 with fluids Chest XRAY with no acute infection UA unremarkable respiratory testing negative MRSA nares negative Blood Cx x1 set NGTD. 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 Balance Wheel Motion Inspector/Oncologist Dr Christie on 06/08, s/p neupogen 480 mcg subcu for neutropenia for 3 days #Acute on chronic Anemia Hgb <7 on 06/11 s/p transfusion 1U pRBCs Holding home eliquis at this time FOBT POSITIVE Continue to monitor H/H GI re-consulted on 06/13 - will see pt after Eliquis on hold for 48hrs on 06/14 -No endoscopic interventions planned resume Eliquis #EUGENE superimposed on CKD resolved 2/2 decreased oral intake/possible infection following chemo tx 05/30 Creatinine 2.36 on admission (previously 1.7 eight days prior) Given 2L NSS in ED, continued maintenance fluid Nephrology consulted, appreciate recs Continue to monitor, improving Currently wnl #Generalized weakness #Hyponatremiaresolved #Hypernatremia Na 129 on admission Likely in setting of poor PO intake Noted improvement with fluids Nephrology consulted as above Continue to monitor, improving PT/OT, fall precautions Will go to rehab when stable #Hypokalemia #Hypocalcemia #Hypophosphatemia Replete as needed ionized calcium in am (corrected for albumin is normal) #Malnutrition Likely in setting of above Radiology Physician consult #H/o DVT Continue Eliquis #HTN (hypertension) Continue atenolol #History of breast cancer S/p left partial mastectomy, XRT, 5 years of tamoxifen completed in August 2022 #Restless legs syndrome (RLS) Clonazepam HS PRN Diet: advancing, to full DVT Ppx: Eliquis Code status: FULL PCP: Loreta Dispo: PT/OT:PT recommends rehab, will [facility] Admission and Anticipated Discharge Date Admission Date: June 06, 2024 Subjective More alert this morning than prior 48 hours Answered questions, states she feels tired Per , took a bite of jello and ate a chocolate candy; also noted to be on phone earlier and speaking with family Physical Exam Constitutional: lethargic, but no distress noted Respiratory: normal respiratory effort, lungs clear to auscultation Gastrointestinal (Abdomen): normal bowel sounds, soft, nontender, no hepatosplenomegaly Neurologic: PERRL, EOMI, accommodation nl, no face palsy, no dysarthria Results & Data Results & Data Vital Signs (Past 12 Hours) Vital Signs Temp Pulse Pulse Resp BP Pulse Ox O2 Del Method 06/17/24 10:56 36.4 C L 82 16 107/73 98 Room Air 06/17/24 07:29 36.7 C 82 16 118/78 97 Room Air 06/17/24 07:17 85 06/17/24 02:23 36.6 C 88 16 111/77 97 Room Air Laboratory Results Short CBC 06/17/24 Range/Units 07:54 WBC 9.63 (4.8-10.8) K/ul Hgb 7.9 L (12.0-16.0) g/dl Hct 25.2 L (37.0-47.0) % Plt Count 175 (130-400) K/uL BMP 06/17/24 07:54 Sodium 135 L Potassium 3.7 Chloride 105 Carbon Dioxide 25 BUN 36 H Creatinine 1.13 Glucose 130 H Calcium 7.1 L Liver Function 06/17/24 Range/Units 07:54 Total Bilirubin 0.4 (0.2-1.0) mg/dl AST 45 H (13-39) U/L ALT 47 (7-52) U/L Alkaline Phosphatase 114 H (34-104) U/L Albumin 2.1 L (3.4-5.0) gm/dl Medications Administered Home Medications Medication Instructions Recorded Confirmed Last Taken calcium carbonate 600 mg-vitamin 1 cap PO DAILY 04/08/22 06/06/24 Unknown D3 12.5 mcg (500 unit) capsule (Calcium 600 with Vitamin D3) atenolol 25 mg tablet 12.5 mg PO DAILY 12/03/22 06/06/24 Unknown clonazepam 0.5 mg tablet 0.5 mg PO HS PRN anxiety or sleep 12/03/22 06/06/24 Unknown magnesium 200 mg tablet 400 mg PO 2XD 06/29/23 06/06/24 Unknown apixaban 5 mg tablet (Eliquis) 5 mg PO BID 06/06/24 06/06/24 Unknown megestrol 625 mg/5 mL (125 mg/mL) 2 ml PO DAILY 06/06/24 06/06/24 Unknown oral suspension prochlorperazine maleate 10 mg 10 mg PO Q6H PRN Nausea 06/06/24 06/06/24 Unknown tablet Active Medications Generic Name Dose Route Start Last Admin Trade Name Boaz PRN Reason Stop Dose Admin Apixaban 5 mg 06/07/24 09:00 06/17/24 07:49 Apixaban 5 Mg Tablet PO 07/07/24 08:59 5 mg BID JOSEPH Administration Atenolol 12.5 mg 06/07/24 09:00 06/17/24 07:49 Atenolol 25 Mg Tablet PO 07/07/24 08:59 12.5 mg DAILY JOSEPH Administration Calcium/Vitamin D 1 tab 06/07/24 09:00 06/17/24 09:44 Calcium 600mg + Vit D 400 Iu Tab PO 07/07/24 08:59 Not Given DAILY JOSEPH Heparin Sodium (Porcine) 5 ml 06/08/24 01:20 06/15/24 09:54 Heparin 100 Unit/Ml 5ml Flush FLUSH 07/08/24 01:19 5 ml PRN PRN Administration Flush Hydromorphone HCl 0.25 mg 06/08/24 18:48 06/13/24 20:34 Hydromorphone Inj 0.5 Mg/0.5 Ml Syr IV 06/22/24 18:47 0.25 mg Q6H PRN Administration Mod-Sev Pain (Scale 4-10) Prochlorperazine 5 mg/ Syringe 5 mls @ 5 mls/min 06/13/24 12:38 06/17/24 01:28 IV 07/13/24 12:37 5 mls/min Q6H PRN Administration Nausea And Vomiting Dextrose 1,000 mls @ 80 mls/hr 06/17/24 08:45 06/17/24 09:43 D5w IV 07/17/24 08:44 Not Given .[id number] JOSEPH Lidocaine 1 patch 06/13/24 10:30 06/17/24 07:47 Lidocaine 5% 1 Patch TD 07/13/24 10:29 1 patch QAM JOSEPH Administration Magnesium Oxide 400 mg 06/06/24 21:40 06/17/24 09:44 Magnesium Oxide 400 Mg Tab PO 07/06/24 21:39 Not Given BID JOSEPH Megestrol Acetate 250 mg 06/07/24 09:00 06/17/24 07:46 Megestrol Acetate Susp 400 Mg/10 Ml Udc PO 07/07/24 08:59 250 mg DAILY JOSEPH Administration Miscellaneous 1 each 06/13/24 21:00 06/16/24 20:21 Remove Lidoderm Patch N/A 07/13/24 20:59 1 each DAILY@2100 JOSEPH Administration Potassium Chloride 40 meq 06/14/24 09:15 06/17/24 09:44 Potassium Chloride Pwd 20 Meq Pack PO 07/14/24 09:14 Not Given BID JOSEPH Potassium Phosphate 2 tab 06/10/24 13:00 06/17/24 12:53 Pot Phosphate Monobasic W/ Sod Tab PO 07/10/24 12:59 Not Given QID JOSEPH Psyllium Hydrophilic Mucilloid 4 gm 06/16/24 13:45 06/17/24 09:44 Psyllium Or Guar Gum Fiber 4gm Packet PO 07/16/24 13:44 Not Given QAM JOSEPH Saccharomyces Boulardii 250 mg 06/17/24 09:00 06/17/24 07:49 Saccharomyces Boulardii 250 Mg Cap PO 07/17/24 08:59 250 mg DAILY JOSEPH Administration
[2024-06-18 07:36] LABS: Hemoglobin 8.4 g/dl (12.0-16.0); Mean Corpuscular Hemoglobin 31.7 pg (25.0-34.0); Mean Corpuscular Hgb Conc 31.1 g/dL (32.0-36.0); Mean Corpuscular Volume 101.9 fL (80.0-100.0); Mean Platelet Volume 10.8 fL (9.4-12.4); Nucleated RBC # (auto) 0.04 K/uL (0.00-0.12); Nucleated RBC % (auto) 0.4 %; Platelet Count 192 K/uL (130-400); RDW Standard Deviation 77.5 fL (36.4-46.3); Red Blood Count 2.65 M/uL (4.20-5.40); White Blood Count 10.16 K/ul (4.8-10.8)
[2024-06-18 07:45] LABS: Albumin Globulin Ratio 1.1 (0.9-2); Albumin Level 2.1 gm/dl (3.4-5.0); BUN Creatinine Ratio 30.4 (10-20); Bilirubin,Total 0.5 mg/dl (0.2-1.0); Calcium 7.2 mg/dl (8.6-10.3); Creatinine Clr Calc Pharmacy 42.6 ml/min; Est GFR (African American) 55.6 ml/min; Magnesium 1.7 mg/dl (1.7-2.4); Potassium 3.6 mmol/L (3.5-5.1); Total Protein 4.1 gm/dl (6.0-8.3)
[2024-06-18] MEDS: MEGESTROL ACETATE SUSP 400 MG/10 ML UDC PO SCH (08:23)
[2024-06-18] MEDS: ACETAMINOPHEN 500 MG TAB PO PRN (08:30)
--- NOTE | 2024-06-18 08:42 | Hospitalist Progress Note ---
Date of Service June 18, 2024 Assessment & Plan (1) Acute kidney injury superimposed on CKD: (2) Elevated lactic acid level: (3) Acute hyponatremia: (4) Adenocarcinoma of gallbladder: (5) History of DVT (deep vein thrombosis): (6) Anxiety: Plan Ms. 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 Patient found to have bowel obstruction. This bowel obstruction was management conservatively. Surgery signed off--stating that surgical intervention will only be pursued in an emergent situation. GI evaluated patient and spoke to Dr Morris, who placed stent. The concern of eroding tumor may be contributing to occult anemia. Patient to likely follow up with Dr. Morris. Patient remains lethargic Extensive work up for resp alkalosis and secondary metabolic alklosis ongoing -Metabolic likely 2/2 GI loses -Resp: r/o hyperammonemia, doesn't appear tachypneic/anxious Neurology consulted who notes this is likely multifactorial and best managed with supportive care From 06/17 to 06/18, patient with more alertness and ability to participate in exam. Attempting to eat more as able. Noted that liver enzymes are uptrending and given vague discomfort will order KUB to start to assess obstruction and will consider repeat CT ABD/P contingent on trend of LFTS. Spent 45 min with discussing course. #Acute toxic metabolic encephalopathy Biofire negative, UA negative MRI negative Ammonia 43 Neurology consulted: chronic leukoencephalopathy, cannot r/o neurotoxicity EEG pending PT/OT ongoing Supportive care #Transaminitis #Adenocarcinoma of gallbladder Last FOLFOX treatment 05/[address] Ginny Olivera 06/08- patient's family requested 5FU reversal, but not warranted at this time per Oncology As above GI consult for further recs per General Surgery. CMP this am revealed liver enzymes elevated mildly Exam benign this am Trend CMP in am Will plan for KUB for initial pain given recent obstruction however will order CT AB/P if LFTs continue to rise to assess if malignancy increasing #Acute respiratory alkalosis secondary metabolic alkalosis #Diarrhea Gi losses likely etiology of metabolic alkalosis Resp alkalosis -MRI negative for clear central cause -Ammonia 43 -No pain/anxiety contributing to tachypnea Metamucil to help resolve diarrhea C diff negative Encourage PO #Large Bowel Obstruction CT adb/pelvis noting transition point suggestive of obstruction Follow up KUB noting persistence of bowel obstruction Pt intially NPO, IV fluids, IV antiemetics, IV pain meds General surgery consulted, appreciate recs -recommended GI consult--signed off no further recommendations non-op management -recommended oncology consult, ordered inpt and pt's outpt oncologist on board as well -Palliative care consult discontinued at request of Per surgery can advance diet given pt having BMs. Further advanced to solids, soft on 06/13 KUB today given vague abdominal discomfort #Chemotherapy induced Neutropenia #Lactic acidosis iso obstruction/dehydration Possible sepsis r/o Pt with progressing neutropenia, in the setting of recent chemotherapy Lactate initially 4.4 on admission ->normalized to 2.0 with fluids Chest XRAY with no acute infection UA unremarkable respiratory testing negative MRSA nares negative Blood Cx x1 set NGTD. 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 International Project Manager/Oncologist Dr Christie on 06/08, s/p neupogen 480 mcg subcu for neutropenia for 3 days #Acute on chronic Anemia Hgb <7 on 06/11 s/p transfusion 1U pRBCs Holding home eliquis at this time FOBT POSITIVE Continue to monitor H/H GI re-consulted on 06/13 - will see pt after Eliquis on hold for 48hrs on 06/14 -No endoscopic interventions planned resume Eliquis #EUGENE superimposed on CKD resolved 2/2 decreased oral intake/possible infection following chemo tx 05/30 Creatinine 2.36 on admission (previously 1.7 eight days prior) Given 2L NSS in ED, continued maintenance fluid Nephrology consulted, appreciate recs Continue to monitor, improving Currently wnl #Generalized weakness #Hyponatremiaresolved #Hypernatremia Na 129 on admission Likely in setting of poor PO intake Noted improvement with fluids Nephrology consulted as above Continue to monitor, improving PT/OT, fall precautions Will go to rehab when stable #Hypokalemia #Hypocalcemia #Hypophosphatemia Replete as needed ionized calcium in am (corrected for albumin is normal) #Malnutrition Likely in setting of above Veneer Clipper Helper consult #H/o DVT Continue Eliquis #HTN (hypertension) Continue atenolol #History of breast cancer S/p left partial mastectomy, XRT, 5 years of tamoxifen completed in August 2022 #Restless legs syndrome (RLS) Clonazepam HS PRN Diet: advancing, to full DVT Ppx: Eliquis Code status: FULL PCP: Loreta Dispo: PT/OT:PT recommends rehab, will consider [facility] Patients course prolonged 2/2 encephalopathy. Patient alert as of 06/18, however, uptrending LFTS will likely delay rehab Admission and Anticipated Discharge Date Admission Date: June 06, 2024 Subjective Much more awake and interactive this am endorses some abdominal d/c v nausea. She states she isn't clear how to describe it she does not that her appetite is improving overall and otherwise has no other acute concerns Reports inability to discern gas from bowel movement Physical Exam Constitutional: WD/WN, vitals as above Respiratory: normal respiratory effort, lungs clear to auscultation Cardiovascular: RRR, no murmur, no edema Gastrointestinal (Abdomen): no pain eludicated on exam, slight distention, but soft Results & Data Results & Data Vital Signs (Past 12 Hours) Vital Signs Temp Pulse Pulse Resp BP Pulse Ox O2 Del Method 06/18/24 07:45 37.0 C 88 18 109/73 100 Room Air 06/18/24 03:46 37.0 C 89 18 102/73 97 Room Air 06/18/24 03:11 86 06/17/24 23:19 36.6 C 90 18 106/71 98 Room Air Laboratory Results Short CBC 06/18/24 Range/Units 06:44 WBC 10.16 (4.8-10.8) K/ul Hgb 8.4 L (12.0-16.0) g/dl Hct 27.0 L (37.0-47.0) % Plt Count 192 (130-400) K/uL BMP 06/18/24 06:44 Sodium 135 L Potassium 3.6 Chloride 105 Carbon Dioxide 23 BUN 34 H Creatinine 1.12 Glucose 99 Calcium 7.2 L Liver Function 06/18/24 Range/Units 06:44 Total Bilirubin 0.5 (0.2-1.0) mg/dl AST 51 H (13-39) U/L ALT 61 H (7-52) U/L Alkaline Phosphatase 161 H (34-104) U/L Albumin 2.1 L (3.4-5.0) gm/dl Medications Administered Home Medications Medication Instructions Recorded Confirmed Last Taken calcium carbonate 600 mg-vitamin 1 cap PO DAILY 04/08/22 06/06/24 Unknown D3 12.5 mcg (500 unit) capsule (Calcium 600 with Vitamin D3) atenolol 25 mg tablet 12.5 mg PO DAILY 12/03/22 06/06/24 Unknown clonazepam 0.5 mg tablet 0.5 mg PO HS PRN anxiety or sleep 12/03/22 06/06/24 Unknown magnesium 200 mg tablet 400 mg PO 2XD 06/29/23 06/06/24 Unknown apixaban 5 mg tablet (Eliquis) 5 mg PO BID 06/06/24 06/06/24 Unknown megestrol 625 mg/5 mL (125 mg/mL) 2 ml PO DAILY 06/06/24 06/06/24 Unknown oral suspension prochlorperazine maleate 10 mg 10 mg PO Q6H PRN Nausea 06/06/24 06/06/24 Unknown tablet Active Medications Generic Name Dose Route Start Last Admin Trade Name Freq PRN Reason Stop Dose Admin Acetaminophen 1,000 mg 06/13/24 10:15 06/18/24 08:30 Acetaminophen 500 Mg Tab PO 07/13/24 10:14 1,000 mg Q8H PRN Administration Mild Pain (Scale 1, 2, 3) Apixaban 5 mg 06/07/24 09:00 06/18/24 08:23 Apixaban 5 Mg Tablet PO 07/07/24 08:59 5 mg BID JOSEPH Administration Atenolol 12.5 mg 06/07/24 09:00 06/18/24 08:23 Atenolol 25 Mg Tablet PO 07/07/24 08:59 12.5 mg DAILY JOSEPH Administration Calcium/Vitamin D 1 tab 06/07/24 09:00 06/18/24 08:35 Calcium 600mg + Vit D 400 Iu Tab PO 07/07/24 08:59 Not Given DAILY JOSEPH Heparin Sodium (Porcine) 5 ml 06/08/24 01:20 06/18/24 08:31 Heparin 100 Unit/Ml 5ml Flush FLUSH 07/08/24 01:19 5 ml PRN PRN Administration Flush Hydromorphone HCl 0.25 mg 06/08/24 18:48 06/13/24 20:34 Hydromorphone Inj 0.5 Mg/0.5 Ml Syr IV 06/22/24 18:47 0.25 mg Q6H PRN Administration Mod-Sev Pain (Scale 4-10) Prochlorperazine 5 mg/ Syringe 5 mls @ 5 mls/min 06/13/24 12:38 06/17/24 01:28 IV 07/13/24 12:37 5 mls/min Q6H PRN Administration Nausea And Vomiting Lidocaine 1 patch 06/13/24 10:30 06/18/24 08:21 Lidocaine 5% 1 Patch TD 07/13/24 10:29 1 patch QAM JOSEPH Administration Magnesium Oxide 400 mg 06/06/24 21:40 06/18/24 08:35 Magnesium Oxide 400 Mg Tab PO 07/06/24 21:39 Not Given BID JOSEPH Megestrol Acetate 250 mg 06/18/24 09:00 06/18/24 08:23 Megestrol Acetate Susp 400 Mg/10 Ml Udc PO 07/18/24 08:59 250 mg DAILY JOSEPH Administration Miscellaneous 1 each 06/13/24 21:00 06/17/24 20:32 Remove Lidoderm Patch N/A 07/13/24 20:59 1 each DAILY@2100 JOSEPH Administration Potassium Chloride 40 meq 06/14/24 09:15 06/18/24 08:35 Potassium Chloride Pwd 20 Meq Pack PO 07/14/24 09:14 Not Given BID JOSEPH Potassium Phosphate 2 tab 06/10/24 13:00 06/18/24 08:35 Pot Phosphate Monobasic W/ Sod Tab PO 07/10/24 12:59 Not Given QID JOSEPH Psyllium Hydrophilic Mucilloid 4 gm 06/16/24 13:45 06/18/24 08:35 Psyllium Or Guar Gum Fiber 4gm Packet PO 07/16/24 13:44 Not Given QAM JOSEPH Saccharomyces Boulardii 250 mg 06/17/24 09:00 06/18/24 08:35 Saccharomyces Boulardii 250 Mg Cap PO 07/17/24 08:59 Not Given DAILY JOSEPH
[2024-06-18] MEDS ORDERED: MEGESTROL ACETATE SUSP 400 MG/10 ML UDC PO SCH ×3 (09:00)
--- NOTE | 2024-06-18 12:18 | XRay Report ---
XR KUB/Abdomen 1 view CLINICAL HISTORY: abdominal discomfort, recent LBO TECHNIQUE: 1 view of the abdomen was obtained. Comparison: Comparison is made to abdomen radiograph 06/08/2024 FINDINGS: Tips shunt is seen. The osseous structures are grossly unremarkable. Multiple gas dilated loops of sm all bowel measure up to 44 mm. Large bowel is underdistended. IMPRESSION: Multiple gas dilated loops small bowel are concerning for obstruction. Findings are progressed from p rior exam. The large bowel is underdistended. ACT 112: Negative or not required by law. Electronically signed by: Benji Fernandez M.D. 06/18/2024 12:16 PM
[2024-06-19 07:18] LABS: Hematocrit (blood only) 28.7 % (37.0-47.0); Mean Corpuscular Hgb Conc 31.4 g/dL (32.0-36.0); Mean Corpuscular Volume 102.1 fL (80.0-100.0); Mean Platelet Volume 10.5 fL (9.4-12.4); Nucleated RBC # (auto) 0.06 K/uL (0.00-0.12); Nucleated RBC % (auto) 0.5 %; Platelet Count 214 K/uL (130-400); RDW Coefficient of Variation 20.6 % (11.5-14.5); RDW Standard Deviation 77.6 fL (36.4-46.3); Red Blood Count 2.81 M/uL (4.20-5.40); White Blood Count 11.69 K/ul (4.8-10.8)
[2024-06-19 07:33] LABS: Albumin Globulin Ratio 0.9 (0.9-2); Albumin Level 2.1 gm/dl (3.4-5.0); Bilirubin,Total 0.5 mg/dl (0.2-1.0); Calcium 7.3 mg/dl (8.6-10.3); Creatinine Clr Calc Pharmacy 39.1 ml/min; Est GFR (African American) 50.2 ml/min; Est GFR (Non-African American) 43.3 ml/min; Globulin 2.4 gm/dl (2.5-4.0); Magnesium 1.8 mg/dl (1.7-2.4); Phosphorus 3.5 mg/dl (2.5-4.9); Potassium 3.8 mmol/L (3.5-5.1); Total Protein 4.5 gm/dl (6.0-8.3)
[2024-06-19 08:36] LABS: Basophils # (auto) 0.06 K/uL (0.00-0.20); Basophils % (auto) 0.5 %; Echinocytes 1+; Eosinophils # (auto) 0.04 K/uL (0.00-0.50); Eosinophils % (auto) 0.3 %; Immature Granulocytes # (auto) 1.02 K/uL (0.01-0.20); Immature Granulocytes % (auto) 8.9 %; Lymphocytes # (auto) 2.32 K/uL (1.20-3.40); Lymphocytes % (auto) 20.3 %; Monocytes # (auto) 0.95 K/uL (0.11-0.59); Monocytes % (auto) 8.3 %; Neutrophils # (auto) 7.04 K/uL (1.40-6.50); Neutrophils % (auto) 61.7 %; Polychromasia 1+
[2024-06-19] MEDS: SODIUM CHLORIDE 0.9% 1,000 ML IV SCH (11:04)
[2024-06-19 13:52] LABS: Urine Potassium 34.7 mmol/L
[2024-06-19 14:04] LABS: Appearance Urine Cloudy (Clear); Bacteria Urine Automated None Seen (None Seen); Bilirubin Urine Negative (Negative); Blood Urine Trace (Negative); Color Urine Yellow; Epithelial Cell Urine Auto 0-2 /hpf (0-2); Glucose Urine UA Negative (Negative); Ketones Urine Negative (Negative); Leukocyte Esterase Urine 1+ (Negative); Nitrite Urine Negative (Negative); Protein Urine 1+ (Negative); Specific Gravity Urine 1.025 (1.000-1.030); Urobilinogen Urine Negative (Negative); WBC Urine Automated 21-50 /hpf (0-5)
--- NOTE | 2024-06-19 14:11 | Hospitalist Progress Note ---
Date of Service June 19, 2024 Assessment & Plan (1) Acute kidney injury superimposed on CKD: (2) Elevated lactic acid level: (3) Acute hyponatremia: (4) Adenocarcinoma of gallbladder: (5) History of DVT (deep vein thrombosis): (6) Anxiety: Plan Ms. 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 Patient found to have bowel obstruction. This bowel obstruction was management conservatively. Surgery signed off--stating that surgical intervention will only be pursued in an emergent situation. GI evaluated patient and spoke to Dr Morris, who placed stent. The concern of eroding tumor may be contributing to occult anemia. Patient to likely follow up with Dr. Morris. Patient remains lethargic Extensive work up for resp alkalosis and secondary metabolic alklosis ongoing -Metabolic likely 2/2 GI loses -Resp: r/o hyperammonemia, doesn't appear tachypneic/anxious Neurology consulted who notes this is likely multifactorial and best managed with supportive care From 06/17 to 06/18, patient with more alertness and ability to participate in exam. Attempting to eat more as able. Noted that liver enzymes are uptrending and given vague discomfort will order KUB to start to assess obstruction and will consider repeat CT ABD/P contingent on trend of LFTS. Liver enzymes have plateaued, appetite improving. EUGENE noted iso likely dehyrdation given intermittent po, will trend cmp and 1L NS #Acute toxic metabolic encephalopathy Biofire negative, UA negative MRI negative Ammonia 43 Neurology consulted: chronic leukoencephalopathy, cannot r/o neurotoxicity EEG pending read PT/OT ongoing Supportive care #Transaminitis #Adenocarcinoma of gallbladder Last FOLFOX treatment 05/[address] Ginny Olivera 06/08- patient's family requested 5FU reversal, but not warranted at this time per Oncology As above GI consult for further recs per General Surgery. CMP this am revealed liver enzymes elevated mildly Exam benign this am Trend CMP in am KUB seemingly stable compared to prior, and exam remains benign #Acute respiratory alkalosis secondary metabolic alkalosis #Diarrhea Gi losses likely etiology of metabolic alkalosis Resp alkalosis -MRI negative for clear central cause -Ammonia 43 -No pain/anxiety contributing to tachypnea Metamucil to help resolve diarrhea C diff negative Encourage PO #Large Bowel Obstruction CT adb/pelvis noting transition point suggestive of obstruction Follow up KUB noting persistence of bowel obstruction Pt intially NPO, IV fluids, IV antiemetics, IV pain meds General surgery consulted, appreciate recs -recommended GI consult--signed off no further recommendations non-op management -recommended oncology consult, ordered inpt and pt's outpt oncologist on board as well -Palliative care consult discontinued at request of Per surgery can advance diet given pt having BMs. Further advanced to solids, soft on 06/13 KUB today given vague abdominal discomfort #Chemotherapy induced Neutropenia #Lactic acidosis iso obstruction/dehydration Possible sepsis r/o Pt with progressing neutropenia, in the setting of recent chemotherapy Lactate initially 4.4 on admission ->normalized to 2.0 with fluids Chest XRAY with no acute infection UA unremarkable respiratory testing negative MRSA nares negative Blood Cx x1 set NGTD. 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 Back Maker/Oncologist Dr Christie on 06/08, s/p neupogen 480 mcg subcu for neutropenia for 3 days #Acute on chronic Anemia Hgb <7 on 06/11 s/p transfusion 1U pRBCs Holding home eliquis at this time FOBT POSITIVE Continue to monitor H/H GI re-consulted on 06/13 - will see pt after Eliquis on hold for 48hrs on 06/14 -No endoscopic interventions planned resume Eliquis #EUGENE superimposed on CKD 2/2 decreased oral intake/possible infection following chemo tx 05/30 Creatinine 2.36 on admission (previously 1.7 eight days prior) Given 2L NSS in ED, continued maintenance fluid Nephrology consulted, appreciate recs Continue to monitor, improving Repeat BMP #Generalized weakness #Hyponatremiaresolved #Hypernatremia Na 129 on admission Likely in setting of poor PO intake Noted improvement with fluids Nephrology consulted as above Continue to monitor, improving PT/OT, fall precautions Will go to rehab when stable #Hypokalemia #Hypocalcemia #Hypophosphatemia Replete as needed ionized calcium in am (corrected for albumin is normal) #Malnutrition Likely in setting of above Metal Melter consult #H/o DVT Continue Eliquis #HTN (hypertension) Continue atenolol #History of breast cancer S/p left partial mastectomy, XRT, 5 years of tamoxifen completed in August 2022 #Restless legs syndrome (RLS) Clonazepam HS PRN Diet: advancing, to full DVT Ppx: Eliquis Code status: FULL PCP: L[facility] Dispo: PT/OT:PT recommends rehab, will consider juniper Patients course prolonged 2/2 encephalopathy. Patient alert as of 06/18, however, uptrending LFTS will likely delay rehab Admission and Anticipated Discharge Date Admission Date: June 06, 2024 Subjective Improved this morning More conversational and interactive Denies any acute concerns this am, denies abdominal pain, nausea Reports continue diarrhea Physical Exam Constitutional: WD/WN, vitals as above more awake and interactive Respiratory: normal respiratory effort, lungs clear to auscultation Cardiovascular: RRR, no murmur, no edema Gastrointestinal (Abdomen): normal bowel sounds, soft, nontender, no hepatosplenomegaly Results & Data Results & Data Vital Signs (Past 12 Hours) Vital Signs Temp Pulse Resp BP Pulse Ox O2 Del Method 06/19/24 10:42 36.6 C 87 16 90/66 L 98 Room Air 06/19/24 07:12 36.5 C 78 18 103/73 98 Room Air 06/19/24 04:24 36.7 C 84 16 104/66 98 Room Air Laboratory Results Short CBC 06/19/24 Range/Units 07:00 WBC 11.69 H (4.8-10.8) K/ul Hgb 9.0 L (12.0-16.0) g/dl Hct 28.7 L (37.0-47.0) % Plt Count 214 (130-400) K/uL BMP 06/19/24 07:00 Sodium 135 L Potassium 3.8 Chloride 104 Carbon Dioxide 23 BUN 39 H Creatinine 1.22 H Glucose 106 H Calcium 7.3 L Liver Function 06/19/24 Range/Units 07:00 Total Bilirubin 0.5 (0.2-1.0) mg/dl AST 44 H (13-39) U/L ALT 66 H (7-52) U/L Alkaline Phosphatase 178 H (34-104) U/L Albumin 2.1 L (3.4-5.0) gm/dl Urine 06/19/24 Range/Units 13:11 Urine Color Yellow Urine Appearance Cloudy A (Clear) Urine pH 5.0 (4.5-7.5) Ur Specific [place] 1.025 (1.000-1.030) Urine Protein 1+ H (Negative) Urine Glucose (UA) Negative (Negative) Medications Administered Home Medications Medication Instructions Recorded Confirmed Last Taken calcium carbonate 600 mg-vitamin 1 cap PO DAILY 04/08/22 06/06/24 Unknown D3 12.5 mcg (500 unit) capsule (Calcium 600 with Vitamin D3) atenolol 25 mg tablet 12.5 mg PO DAILY 12/03/22 06/06/24 Unknown clonazepam 0.5 mg tablet 0.5 mg PO HS PRN anxiety or sleep 12/03/22 06/06/24 Unknown magnesium 200 mg tablet 400 mg PO 2XD 06/29/23 06/06/24 Unknown apixaban 5 mg tablet (Eliquis) 5 mg PO BID 06/06/24 06/06/24 Unknown megestrol 625 mg/5 mL (125 mg/mL) 2 ml PO DAILY 06/06/24 06/06/24 Unknown oral suspension prochlorperazine maleate 10 mg 10 mg PO Q6H PRN Nausea 06/06/24 06/06/24 Unknown tablet Active Medications Generic Name Dose Route Start Last Admin Trade Name Freq PRN Reason Stop Dose Admin Acetaminophen 1,000 mg 06/13/24 10:15 06/18/24 21:11 Acetaminophen 500 Mg Tab PO 07/13/24 10:14 1,000 mg Q8H PRN Administration Mild Pain (Scale 1, 2, 3) Apixaban 5 mg 06/07/24 09:00 06/19/24 09:11 Apixaban 5 Mg Tablet PO 07/07/24 08:59 5 mg BID JOSEPH Administration Atenolol 12.5 mg 06/07/24 09:00 06/19/24 09:11 Atenolol 25 Mg Tablet PO 07/07/24 08:59 12.5 mg DAILY JOSEPH Administration Calcium/Vitamin D 1 tab 06/07/24 09:00 06/19/24 09:28 Calcium 600mg + Vit D 400 Iu Tab PO 07/07/24 08:59 Not Given DAILY JOSEPH Heparin Sodium (Porcine) 5 ml 06/08/24 01:20 06/18/24 08:31 Heparin 100 Unit/Ml 5ml Flush FLUSH 07/08/24 01:19 5 ml PRN PRN Administration Flush Hydromorphone HCl 0.25 mg 06/08/24 18:48 06/13/24 20:34 Hydromorphone Inj 0.5 Mg/0.5 Ml Syr IV 06/22/24 18:47 0.25 mg Q6H PRN Administration Mod-Sev Pain (Scale 4-10) Prochlorperazine 5 mg/ Syringe 5 mls @ 5 mls/min 06/13/24 12:38 06/17/24 01:28 IV 07/13/24 12:37 5 mls/min Q6H PRN Administration Nausea And Vomiting Sodium Chloride 1,000 mls @ 125 mls/hr 06/19/24 10:00 06/19/24 11:04 Nss IV 06/19/24 17:59 125 mls/hr .Q8H JOSEPH Administration Lidocaine 1 patch 06/13/24 10:30 06/19/24 09:14 Lidocaine 5% 1 Patch TD 07/13/24 10:29 1 patch QAM JOSEPH Administration Magnesium Oxide 400 mg 06/06/24 21:40 06/19/24 09:28 Magnesium Oxide 400 Mg Tab PO 07/06/24 21:39 Not Given BID JOSEPH Megestrol Acetate 250 mg 06/18/24 09:00 06/19/24 09:11 Megestrol Acetate Susp 400 Mg/10 Ml Udc PO 07/18/24 08:59 250 mg DAILY JOSEPH Administration Miscellaneous 1 each 06/13/24 21:00 06/18/24 21:12 Remove Lidoderm Patch N/A 07/13/24 20:59 1 each DAILY@2100 JOSEPH Administration Potassium Chloride 40 meq 06/14/24 09:15 06/19/24 09:28 Potassium Chloride Pwd 20 Meq Pack PO 07/14/24 09:14 Not Given BID JOSEPH Potassium Phosphate 2 tab 06/10/24 13:00 06/19/24 11:07 Pot Phosphate Monobasic W/ Sod Tab PO 07/10/24 12:59 Not Given QID JOSEPH Psyllium Hydrophilic Mucilloid 4 gm 06/16/24 13:45 06/19/24 09:28 Psyllium Or Guar Gum Fiber 4gm Packet PO 07/16/24 13:44 Not Given QAM JOSEPH Saccharomyces Boulardii 250 mg 06/17/24 09:00 06/19/24 09:28 Saccharomyces Boulardii 250 Mg Cap PO 07/17/24 08:59 Not Given DAILY JOSEPH
[2024-06-19 14:28] LABS: Granular Casts Urine Present /lpf (None Prsent)
[2024-06-19 14:29] LABS: Hyaline Casts Urine Present /lpf (None Presnt)
[2024-06-19] MEDS: CHOLESTYRAMINE LIGHT 4 GM PKT PO SCH (22:13)
[2024-06-20 05:34] LABS: Hematocrit (blood only) 27.5 % (37.0-47.0); Hemoglobin 8.7 g/dl (12.0-16.0); Mean Corpuscular Hemoglobin 32.3 pg (25.0-34.0); Mean Corpuscular Hgb Conc 31.6 g/dL (32.0-36.0); Mean Corpuscular Volume 102.2 fL (80.0-100.0); Mean Platelet Volume 10.3 fL (9.4-12.4); Nucleated RBC # (auto) 0.08 K/uL (0.00-0.12); Nucleated RBC % (auto) 0.7 %; Platelet Count 207 K/uL (130-400); RDW Coefficient of Variation 20.9 % (11.5-14.5); RDW Standard Deviation 78.4 fL (36.4-46.3); Red Blood Count 2.69 M/uL (4.20-5.40); White Blood Count 11.25 K/ul (4.8-10.8)
[2024-06-20 05:46] LABS: Albumin Globulin Ratio 0.9 (0.9-2); BUN Creatinine Ratio 34.5 (10-20); Bilirubin,Total 0.4 mg/dl (0.2-1.0); Calcium 7.2 mg/dl (8.6-10.3); Creatinine Clr Calc Pharmacy 42.2 ml/min; Est GFR (African American) 55.1 ml/min; Est GFR (Non-African American) 47.5 ml/min; Globulin 2.3 gm/dl (2.5-4.0); Magnesium 1.7 mg/dl (1.7-2.4); Phosphorus 3.1 mg/dl (2.5-4.9); Potassium 4.1 mmol/L (3.5-5.1); Total Protein 4.3 gm/dl (6.0-8.3)
--- NOTE | 2024-06-20 06:34 | Electroencephalogram ---
EEG Procedure Note Date of Service June 18, 2024 Start / End Times Start Time: 1026 End Time: 1046 Referring Physician Laly Khan MD History A 74 year old female on chemotherapy and altered mental status. EEG performed for evaluation of epileptiform acitvity. Home Medication List Medication Instructions Recorded Confirmed Type calcium carbonate 600 mg-vitamin 1 cap PO DAILY 04/08/22 06/06/24 History D3 12.5 mcg (500 unit) capsule (Calcium 600 with Vitamin D3) atenolol 25 mg tablet 12.5 mg PO DAILY 12/03/22 06/06/24 History clonazepam 0.5 mg tablet 0.5 mg PO HS PRN anxiety or sleep 12/03/22 06/06/24 History magnesium 200 mg tablet 400 mg PO 2XD 06/29/23 06/06/24 History apixaban 5 mg tablet (Eliquis) 5 mg PO BID 06/06/24 06/06/24 History megestrol 625 mg/5 mL (125 mg/mL) 2 ml PO DAILY 06/06/24 06/06/24 History oral suspension prochlorperazine maleate 10 mg 10 mg PO Q6H PRN Nausea 06/06/24 06/06/24 History tablet Inpatient Medication List Acetaminophen (Acetaminophen 500 Mg Tab) 1,000 mg PO Q8H PRN PRN Reason: Mild Pain (Scale 1, 2, 3) Stop: 07/13/24 10:14 Last Admin: 06/18/24 21:11 Dose: 1,000 mg Documented By: Admin: 06/18/24 08:30 Dose: 1,000 mg Documented By: ROSALIA Apixaban (Apixaban 5 Mg Tablet) 5 mg PO BID [facility] Stop: 07/07/24 08:59 Last Admin: 06/19/24 19:58 Dose: 5 mg Documented By: Admin: 06/19/24 09:11 Dose: 5 mg Documented By: Admin: 06/18/24 21:09 Dose: 5 mg Documented By: Admin: 06/18/24 08:23 Dose: 5 mg Documented By: Admin: 06/17/24 20:31 Dose: 5 mg Documented By: Admin: 06/17/24 07:49 Dose: 5 mg Documented By: Admin: 06/16/24 20:20 Dose: 5 mg Documented By: Admin: 06/16/24 09:02 Dose: 5 mg Documented By: Admin: 06/12/24 09:44 Dose: Not Given Documented By: Admin: 06/11/24 20:36 Dose: 5 mg Documented By: Admin: 06/11/24 08:02 Dose: 5 mg Documented By: Admin: 06/10/24 20:13 Dose: 5 mg Documented By: Admin: 06/10/24 08:39 Dose: 5 mg Documented By: Admin: 06/09/24 20:13 Dose: 5 mg Documented By: Admin: 06/09/24 09:24 Dose: 5 mg Documented By: Admin: 06/08/24 21:24 Dose: 5 mg Documented By: Admin: 06/08/24 08:37 Dose: 5 mg Documented By: Admin: 06/07/24 20:16 Dose: 5 mg Documented By: Admin: 06/07/24 08:53 Dose: 5 mg Documented By: BELGICA Atenolol (Atenolol 25 Mg Tablet) 12.5 mg PO DAILY JOSEPH Stop: 07/07/24 08:59 Last Admin: 06/19/24 09:11 Dose: 12.5 mg Documented By: Admin: 06/18/24 08:23 Dose: 12.5 mg Documented By: Admin: 06/17/24 07:49 Dose: 12.5 mg Documented By: Admin: 06/16/24 09:01 Dose: 12.5 mg Documented By: Admin: 06/15/24 09:54 Dose: Not Given Documented By: Admin: 06/14/24 10:00 Dose: 12.5 mg Documented By: Admin: 06/13/24 08:35 Dose: 12.5 mg Documented By: Admin: 06/12/24 09:31 Dose: 12.5 mg Documented By: Admin: 06/11/24 08:02 Dose: 12.5 mg Documented By: Admin: 06/10/24 08:39 Dose: 12.5 mg Documented By: Admin: 06/09/24 09:24 Dose: 12.5 mg Documented By: Admin: 06/08/24 08:37 Dose: 12.5 mg Documented By: Admin: 06/07/24 08:54 Dose: 12.5 mg Documented By: BELGICA Calcium/Vitamin D (Calcium 600mg + Vit D 400 Iu Tab) 1 tab PO DAILY JOSEPH Stop: 07/07/24 08:59 Last Admin: 06/19/24 09:28 Dose: Not Given Documented By: Admin: 06/18/24 08:35 Dose: Not Given Documented By: Admin: 06/17/24 09:44 Dose: Not Given Documented By: Admin: 06/16/24 09:13 Dose: Not Given Documented By: Admin: 06/15/24 09:54 Dose: Not Given Documented By: Admin: 06/14/24 10:01 Dose: 1 tab Documented By: Admin: 06/13/24 08:35 Dose: 1 tab Documented By: Admin: 06/12/24 09:33 Dose: 1 tab Documented By: Admin: 06/11/24 08:01 Dose: 1 tab Documented By: Admin: 06/10/24 08:39 Dose: 1 tab Documented By: Admin: 06/09/24 09:24 Dose: 1 tab Documented By: Admin: 06/08/24 08:37 Dose: 1 tab Documented By: Admin: 06/07/24 08:54 Dose: 1 tab Documented By: BELGICA Cholestyramine Resin (Cholestyramine Light 4 Gm Pkt) 4 gm PO BID@1000,2200 JOSEPH Stop: 07/19/24 21:59 Last Admin: 06/19/24 22:13 Dose: Not Given Documented By: VERONICA Heparin Sodium (Porcine) (Heparin 100 Unit/Ml 5ml Flush) 5 ml FLUSH PRN PRN PRN Reason: Flush Stop: 07/08/24 01:19 Last Admin: 06/20/24 05:24 Dose: 5 ml Documented By: Admin: 06/18/24 08:31 Dose: 5 ml Documented By: Admin: 06/15/24 09:54 Dose: 5 ml Documented By: Admin: 06/14/24 10:13 Dose: 5 ml Documented By: Admin: 06/13/24 14:37 Dose: 5 ml Documented By: LINDEN Hydromorphone HCl (Hydromorphone Inj 0.5 Mg/0.5 Ml Syr) 0.25 mg IV Q6H PRN PRN Reason: Mod-Sev Pain (Scale 4-10) Stop: 06/22/24 18:47 Last Admin: 06/13/24 20:34 Dose: 0.25 mg Documented By: Admin: 06/13/24 10:30 Dose: 0.25 mg Documented By: LINDEN Prochlorperazine 5 mg/ Syringe 5 mls @ 5 mls/min IV Q6H PRN PRN Reason: Nausea And Vomiting Stop: 07/13/24 12:37 Last Admin: 06/17/24 01:28 Dose: 5 mls/min Documented By: Admin: 06/13/24 17:18 Dose: 5 mls/min Documented By: LINDEN Lidocaine (Lidocaine 5% 1 Patch) 1 patch TD QAM [facility] Stop: 07/13/24 10:29 Last Admin: 06/19/24 09:14 Dose: 1 patch Documented By: [facility] Admin: 06/18/24 08:21 Dose: 1 patch Documented By: Admin: 06/17/24 07:47 Dose: 1 patch Documented By: Admin: 06/16/24 09:00 Dose: 1 patch Documented By: Admin: 06/15/24 08:33 Dose: 1 patch Documented By: Admin: 06/14/24 11:57 Dose: 1 patch Documented By: Admin: 06/13/24 11:53 Dose: 1 patch Documented By: LINDEN Magnesium Oxide (Magnesium Oxide 400 Mg Tab) 400 mg PO BID [facility] Stop: 07/06/24 21:39 Last Admin: 06/19/24 09:28 Dose: Not Given Documented By: [facility] Admin: 06/18/24 21:12 Dose: Not Given Documented By: Admin: 06/18/24 08:35 Dose: Not Given Documented By: Admin: 06/17/24 20:29 Dose: Not Given Documented By: Admin: 06/17/24 09:44 Dose: Not Given Documented By: Admin: 06/16/24 20:20 Dose: Not Given Documented By: Admin: 06/16/24 09:13 Dose: Not Given Documented By: Admin: 06/15/24 21:29 Dose: Not Given Documented By: Admin: 06/15/24 09:54 Dose: Not Given Documented By: Admin: 06/14/24 20:18 Dose: 400 mg Documented By: Admin: 06/14/24 10:01 Dose: 400 mg Documented By: Admin: 06/13/24 20:33 Dose: 400 mg Documented By: Admin: 06/13/24 08:35 Dose: 400 mg Documented By: Admin: 06/12/24 20:44 Dose: 400 mg Documented By: Admin: 06/12/24 09:31 Dose: 400 mg Documented By: Admin: 06/11/24 20:36 Dose: 400 mg Documented By: Admin: 06/11/24 08:02 Dose: 400 mg Documented By: Admin: 06/10/24 20:13 Dose: 400 mg Documented By: Admin: 06/10/24 08:39 Dose: 400 mg Documented By: Admin: 06/09/24 20:13 Dose: 400 mg Documented By: Admin: 06/09/24 09:24 Dose: 400 mg Documented By: Admin: 06/08/24 21:24 Dose: 400 mg Documented By: Admin: 06/08/24 08:37 Dose: 400 mg Documented By: Admin: 06/07/24 20:16 Dose: 400 mg Documented By: Admin: 06/07/24 08:55 Dose: 400 mg Documented By: Admin: 06/06/24 22:28 Dose: 400 mg Documented By: JUDE Megestrol Acetate (Megestrol Acetate Susp 400 Mg/10 Ml Udc) 250 mg PO DAILY JOSEPH Stop: 07/18/24 08:59 Last Admin: 06/19/24 09:11 Dose: 250 mg Documented By: Admin: 06/18/24 08:23 Dose: 250 mg Documented By: ROSALIA Miscellaneous (Remove Lidoderm Patch) 1 each N/A DAILY@2100 JOSEPH Stop: 07/13/24 20:59 Last Admin: 06/19/24 19:58 Dose: 1 each Documented By: Admin: 06/18/24 21:12 Dose: 1 each Documented By: Admin: 06/17/24 20:32 Dose: 1 each Documented By: Admin: 06/16/24 20:21 Dose: 1 each Documented By: Admin: 06/15/24 21:30 Dose: 1 each Documented By: Admin: 06/14/24 20:19 Dose: 1 each Documented By: Admin: 06/13/24 20:34 Dose: Not Given Documented By: C Potassium Chloride (Potassium Chloride Pwd 20 Meq Pack) 40 meq PO BID [facility] Stop: 07/14/24 09:14 Last Admin: 06/19/24 19:58 Dose: Not Given Documented By: Admin: 06/19/24 09:28 Dose: Not Given Documented By: [facility] Admin: 06/18/24 21:12 Dose: Not Given Documented By: Admin: 06/18/24 08:35 Dose: Not Given Documented By: Admin: 06/17/24 20:29 Dose: Not Given Documented By: [facility] Admin: 06/17/24 09:44 Dose: Not Given Documented By: Admin: 06/16/24 20:21 Dose: Not Given Documented By: [facility] Admin: 06/16/24 09:13 Dose: Not Given Documented By: Admin: 06/15/24 21:30 Dose: Not Given Documented By: [facility] Admin: 06/15/24 09:54 Dose: Not Given Documented By: Admin: 06/14/24 20:18 Dose: 40 meq Documented By: Admin: 06/14/24 10:36 Dose: 40 meq Documented By: CM Potassium Phosphate (Pot Phosphate Monobasic W/ Sod Tab) 2 tab PO QID [facility] Stop: 07/10/24 12:59 Last Admin: 06/19/24 19:58 Dose: Not Given Documented By: [facility] Admin: 06/19/24 16:29 Dose: Not Given Documented By: [facility] Admin: 06/19/24 11:07 Dose: Not Given Documented By: [facility] Admin: 06/19/24 09:28 Dose: Not Given Documented By: [facility] Admin: 06/18/24 21:12 Dose: Not Given Documented By: [facility] Admin: 06/18/24 16:57 Dose: Not Given Documented By: Admin: 06/18/24 13:07 Dose: Not Given Documented By: Admin: 06/18/24 08:35 Dose: Not Given Documented By: Admin: 06/17/24 20:29 Dose: Not Given Documented By: [facility] Admin: 06/17/24 16:55 Dose: Not Given Documented By: Admin: 06/17/24 12:53 Dose: Not Given Documented By: Admin: 06/17/24 09:44 Dose: Not Given Documented By: Admin: 06/16/24 20:21 Dose: Not Given Documented By: Admin: 06/16/24 16:02 Dose: Not Given Documented By: Admin: 06/16/24 12:56 Dose: Not Given Documented By: Admin: 06/16/24 09:13 Dose: Not Given Documented By: Admin: 06/15/24 21:30 Dose: Not Given Documented By: Admin: 06/15/24 17:24 Dose: Not Given Documented By: Admin: 06/15/24 13:12 Dose: Not Given Documented By: Admin: 06/15/24 09:54 Dose: Not Given Documented By: Admin: 06/14/24 20:17 Dose: 2 tab Documented By: Admin: 06/14/24 17:24 Dose: 2 tab Documented By: Admin: 06/14/24 13:53 Dose: 2 tab Documented By: Admin: 06/14/24 10:01 Dose: 2 tab Documented By: Admin: 06/13/24 20:33 Dose: 2 tab Documented By: Admin: 06/13/24 17:53 Dose: 2 tab Documented By: Admin: 06/13/24 14:36 Dose: 2 tab Documented By: Admin: 06/13/24 08:34 Dose: 2 tab Documented By: Admin: 06/12/24 20:43 Dose: 2 tab Documented By: Admin: 06/12/24 17:06 Dose: 2 tab Documented By: Admin: 06/12/24 12:44 Dose: 2 tab Documented By: Admin: 06/12/24 09:34 Dose: 2 tab Documented By: Admin: 06/11/24 20:36 Dose: 2 tab Documented By: Admin: 06/11/24 17:35 Dose: 2 tab Documented By: Admin: 06/11/24 14:10 Dose: 2 tab Documented By: Admin: 06/11/24 08:01 Dose: 2 tab Documented By: Admin: 06/10/24 20:13 Dose: 2 tab Documented By: Admin: 06/10/24 17:43 Dose: 2 tab Documented By: Admin: 06/10/24 12:29 Dose: 2 tab Documented By: SIGIFREDO Psyllium Hydrophilic Mucilloid (Psyllium Or Guar Gum Fiber 4gm Packet) 4 gm PO QAM [facility] Stop: 07/16/24 13:44 Last Admin: 06/19/24 09:28 Dose: Not Given Documented By: Admin: 06/18/24 08:35 Dose: Not Given Documented By: Admin: 06/17/24 09:44 Dose: Not Given Documented By: Admin: 06/16/24 14:45 Dose: 4 gm Documented By: ROSALIA Saccharomyces Boulardii (Saccharomyces Boulardii 250 Mg Cap) 250 mg PO DAILY JOSEPH Stop: 07/17/24 08:59 Last Admin: 06/19/24 09:28 Dose: Not Given Documented By: Admin: 06/18/24 08:35 Dose: Not Given Documented By: Admin: 06/17/24 07:49 Dose: 250 mg Documented By: ROSALIA Discontinued Medications Acetaminophen (Acetaminophen 325 Mg Tab) 650 mg PO Q4H PRN PRN Reason: Pain or Fever Stop: 07/06/24 21:31 Last Admin: 06/08/24 05:27 Dose: 650 mg Documented By: JUDE Apixaban (Apixaban 5 Mg Tablet) 5 mg PO ONE ONE Stop: 06/06/24 22:15 Last Admin: 06/06/24 22:28 Dose: 5 mg Documented By: JUDE Filgrastim (Filgrastim 480 Mcg/1.6 Ml Vial) 480 mcg SC DAILY JOSEPH Stop: 06/11/24 17:29 Last Admin: 06/11/24 13:08 Dose: 480 mcg Documented By: Admin: 06/10/24 08:46 Dose: 480 mcg Documented By: Admin: 06/09/24 11:02 Dose: 480 mcg Documented By: Admin: 06/08/24 21:21 Dose: 480 mcg Documented By: ADELSO Gadobutrol (Gadobutrol 65ml Vial) 7 ml IV ONCE ONE Stop: 06/16/24 11:59 Last Admin: 06/16/24 11:40 Dose: 7 ml Documented By: KYLE Sodium Chloride (Nss) 500 mls @ 999 mls/hr IV .Q31M STA Stop: 06/06/24 15:08 Last Infusion: 06/06/24 17:19 Dose: Infused Documented By: Admin: 06/06/24 15:37 Dose: 999 mls/hr Documented By: USMAN Cefepime HCl (Maxipime) 2,000 mg in 20 mls @ 5 mls/min IV NOW STA; Protocol Stop: 06/06/24 16:41 Last Admin: 06/06/24 17:25 Dose: 5 mls/min Documented By: ANKIT Parenteral Electrolytes (Plasma-Lyte A Ph 7.4) 1,000 mls @ 999 mls/hr IV .Q1H1M ONE Stop: 06/06/24 17:38 Last Infusion: 06/06/24 19:45 Dose: Infused Documented By: Admin: 06/06/24 17:30 Dose: 999 mls/hr Documented By: ANKIT Sodium Chloride (Nss) 1,000 mls @ 70 mls/hr IV .[id number] JOSEPH Stop: 06/07/24 09:02 Last Infusion: 06/06/24 22:29 Dose: Infused Documented By: Admin: 06/06/24 19:24 Dose: 70 mls/hr Documented By: JUANITA Vancomycin HCl 1,500 mg/ (Sodium Chloride) 530 mls @ 200 mls/hr IV NOW ONE Stop: 06/06/24 21:38 Last Infusion: 06/06/24 22:29 Dose: Infused Documented By: Admin: 06/06/24 19:22 Dose: 200 mls/hr Documented By: JUANITA Cefepime HCl 1,000 mg/ Syringe 10 mls @ 5 mls/min IV Q12H JOSEPH Stop: 06/10/24 04:59 Last Admin: 06/09/24 05:00 Dose: 5 mls/min Documented By: Admin: 06/08/24 18:16 Dose: 5 mls/min Documented By: Admin: 06/08/24 05:18 Dose: 5 mls/min Documented By: Admin: 06/07/24 16:57 Dose: 5 mls/min Documented By: Admin: 06/07/24 05:36 Dose: 5 mls/min Documented By: JUDE Vancomycin HCl 1,000 mg/ (Sodium Chloride) 270 mls @ 200 mls/hr IV ONE ONE Stop: 06/07/24 09:20 Last Infusion: 06/07/24 10:43 Dose: Infused Documented By: Admin: 06/07/24 08:53 Dose: 200 mls/hr Documented By: BELGICA Sodium Chloride (Nss) 1,000 mls @ 80 mls/hr IV .[id number] JOSEPH Stop: 06/08/24 12:14 Last Infusion: 06/08/24 12:16 Dose: Infused Documented By: Admin: 06/07/24 23:42 Dose: 80 mls/hr Documented By: Infusion: 06/07/24 23:42 Dose: Infused Documented By: Admin: 06/07/24 11:15 Dose: 80 mls/hr Documented By: BELGICA Calcium Gluconate () 1,000 mg in 60 mls @ 240 mls/hr IV Q15M JOSEPH Stop: 06/08/24 08:29 Last Infusion: 06/08/24 10:05 Dose: Infused Documented By: Admin: 06/08/24 09:20 Dose: 240 mls/hr Documented By: Infusion: 06/08/24 08:48 Dose: Infused Documented By: Admin: 06/08/24 08:33 Dose: 240 mls/hr Documented By: DEANDRE Potassium Phosphate 15 mmol/ (Sodium Chloride) 255 mls @ 88 mls/hr IV ONE ONE Stop: 06/08/24 10:53 Last Infusion: 06/08/24 11:40 Dose: Infused Documented By: Admin: 06/08/24 08:33 Dose: 88 mls/hr Documented By: DEANDRE Sodium Chloride (Nss) 1,000 mls @ 80 mls/hr IV .[id number] JOSEPH Stop: 07/08/24 13:59 Last Infusion: 06/11/24 10:43 Dose: Infused Documented By: Admin: 06/11/24 02:10 Dose: 80 mls/hr Documented By: Infusion: 06/11/24 02:10 Dose: Infused Documented By: Admin: 06/10/24 14:41 Dose: 80 mls/hr Documented By: Infusion: 06/10/24 14:32 Dose: Infused Documented By: Admin: 06/10/24 02:02 Dose: 80 mls/hr Documented By: Infusion: 06/10/24 02:02 Dose: Infused Documented By: Admin: 06/09/24 14:27 Dose: 80 mls/hr Documented By: Infusion: 06/09/24 14:27 Dose: Infused Documented By: Admin: 06/09/24 02:21 Dose: 80 mls/hr Documented By: Infusion: 06/09/24 02:21 Dose: Infused Documented By: Admin: 06/08/24 14:31 Dose: 80 mls/hr Documented By: DEANDRE Potassium Chloride (K Anirudh / Wtr) 10 meq in 100 mls @ 100 mls/hr IV Q1H JOSEPH Stop: 06/09/24 10:59 Last Infusion: 06/09/24 12:55 Dose: Infused Documented By: Admin: 06/09/24 10:44 Dose: 100 mls/hr Documented By: Infusion: 06/09/24 10:24 Dose: Infused Documented By: Admin: 06/09/24 09:24 Dose: 100 mls/hr Documented By: DTT Potassium Phosphate 21 mmol/ (Sodium Chloride) 507 mls @ 88 mls/hr IV ONE ONE Stop: 06/09/24 16:45 Last Infusion: 06/09/24 17:56 Dose: Infused Documented By: Admin: 06/09/24 12:04 Dose: 88 mls/hr Documented By: DTT Cefepime HCl 2,000 mg/ Syringe 20 mls @ 5 mls/min IV Q12H JOSEPH Stop: 06/12/24 17:01 Last Admin: 06/12/24 17:05 Dose: 5 mls/min Documented By: Admin: 06/12/24 04:55 Dose: 5 mls/min Documented By: Admin: 06/11/24 17:35 Dose: 5 mls/min Documented By: Admin: 06/11/24 05:46 Dose: 5 mls/min Documented By: Admin: 06/10/24 17:43 Dose: 5 mls/min Documented By: Admin: 06/10/24 05:50 Dose: 5 mls/min Documented By: Admin: 06/09/24 18:10 Dose: 5 mls/min Documented By: DTT Potassium Chloride 20 meq/ (Lactated Ringer's) 1,010 mls @ 80 mls/hr IV .[id number] JOSEPH Stop: 07/11/24 09:29 Last Infusion: 06/13/24 07:34 Dose: Infused Documented By: Infusion: 06/12/24 13:51 Dose: 80 mls/hr Documented By: Infusion: 06/12/24 13:34 Dose: 0 mls/hr Documented By: Admin: 06/12/24 13:28 Dose: 80 mls/hr Documented By: Infusion: 06/12/24 12:54 Dose: Infused Documented By: Infusion: 06/12/24 12:26 Dose: 80 mls/hr Documented By: Infusion: 06/12/24 12:03 Dose: 0 mls/hr Documented By: Admin: 06/11/24 23:36 Dose: 80 mls/hr Documented By: Infusion: 06/11/24 23:21 Dose: Infused Documented By: Admin: 06/11/24 10:43 Dose: 80 mls/hr Documented By: DTT Potassium Phosphate 15 mmol/ (Sodium Chloride) 255 mls @ 88 mls/hr IV ONE ONE Stop: 06/11/24 12:38 Last Infusion: 06/11/24 13:39 Dose: Infused Documented By: Admin: 06/11/24 10:43 Dose: 88 mls/hr Documented By: DTT Potassium Phosphate 15 mmol/ (Sodium Chloride) 255 mls @ 102 mls/hr IV ONE ONE Stop: 06/12/24 11:59 Last Infusion: 06/12/24 12:21 Dose: Infused Documented By: Admin: 06/12/24 09:44 Dose: 102 mls/hr Documented By: ISREALR Dextrose (D5w) 500 mls @ 80 mls/hr IV .Q6H15M [facility] Stop: 06/13/24 00:59 Last Infusion: 06/13/24 02:58 Dose: Infused Documented By: Admin: 06/12/24 20:43 Dose: 80 mls/hr Documented By: HOLLAND Dextrose (D5w) 1,000 mls @ 80 mls/hr IV .[id number] [facility] Stop: 06/16/24 03:44 Last Infusion: 06/16/24 04:22 Dose: Infused Documented By: Admin: 06/15/24 15:23 Dose: 80 mls/hr Documented By: ROSALIA Potassium Chloride (K Anirudh / Wtr) 10 meq in 100 mls @ 100 mls/hr IV Q1H JOSEPH Stop: 06/16/24 11:44 Last Infusion: 06/16/24 14:36 Dose: Infused Documented By: Admin: 06/16/24 12:56 Dose: 100 mls/hr Documented By: Infusion: 06/16/24 11:49 Dose: Infused Documented By: Admin: 06/16/24 10:49 Dose: 100 mls/hr Documented By: Infusion: 06/16/24 10:40 Dose: Infused Documented By: Admin: 06/16/24 09:40 Dose: 100 mls/hr Documented By: Infusion: 06/16/24 09:40 Dose: Infused Documented By: Admin: 06/16/24 08:58 Dose: 100 mls/hr Documented By: ROSALIA Dextrose (D5w) 500 mls @ 80 mls/hr IV .Q6H15M [facility]SEPH Stop: 07/16/24 15:44 Last Infusion: 06/17/24 09:44 Dose: Infused Documented By: Admin: 06/17/24 04:51 Dose: 80 mls/hr Documented By: Infusion: 06/17/24 04:51 Dose: Infused Documented By: Admin: 06/16/24 22:24 Dose: 80 mls/hr Documented By: Infusion: 06/16/24 22:24 Dose: Infused Documented By: Admin: 06/16/24 16:02 Dose: 80 mls/hr Documented By: ROSALIA Dextrose (D5w) 1,000 mls @ 80 mls/hr IV .[id number] JOSEPH Stop: 07/17/24 08:44 Last Admin: 06/17/24 09:43 Dose: Not Given Documented By: ROSALIA Sodium Chloride (Nss) 1,000 mls @ 125 mls/hr IV .Q8H [facility]SE[facility] Stop: 06/20/24 01:59 Last Infusion: 06/20/24 02:02 Dose: Infused Documented By: Admin: 06/19/24 18:02 Dose: 125 mls/hr Documented By: [facility] Infusion: 06/19/24 18:02 Dose: Infused Documented By: [facility] Admin: 06/19/24 11:04 Dose: 125 mls/hr Documented By: [facility] Megestrol Acetate (Megestrol Acetate Susp 400 Mg/10 Ml Udc) 250 mg PO DAILY JOSEPH Stop: 07/07/24 08:59 Last Admin: 06/17/24 07:46 Dose: 250 mg Documented By: Admin: 06/16/24 07:46 Dose: 250 mg Documented By: Admin: 06/15/24 09:54 Dose: Not Given Documented By: Admin: 06/14/24 10:00 Dose: 250 mg Documented By: Admin: 06/13/24 08:34 Dose: 250 mg Documented By: Admin: 06/12/24 09:33 Dose: 250 mg Documented By: Admin: 06/11/24 08:02 Dose: 250 mg Documented By: Admin: 06/10/24 08:39 Dose: 250 mg Documented By: Admin: 06/09/24 09:24 Dose: 250 mg Documented By: Admin: 06/08/24 08:38 Dose: 250 mg Documented By: Admin: 06/07/24 10:47 Dose: 250 mg Documented By: Potassium Chloride (Potassium Chloride Crtab 20 Meq Tabcr) 20 meq PO NOW STA Stop: 06/08/24 07:48 Last Admin: 06/08/24 09:20 Dose: 20 meq Documented By: DEANDRE Description This is a 21 electrode EEG with a single channel dedicated to limited EKG. The electrodes were placed in accordance with the International 10-20 system. REPORT: At the onset of the EEG the patient is drowsy. The background is symmetric and continuous The background consist of 7-8 Hz theta activity that is poorly sustained with intermixed 5-7 theta activity and some delta activity. Photic does not induce any abnormalities. No stage II sleep transients are seen. Interpretation Impression: This is an abnormal awake and drowsy routine EEG due to generalized background slowing suggestive of a non specific encephalopathy. No epileptiform activity is seen.
[2024-06-20 08:30] LABS: Eosinophils # (manual) 0.11 K/uL (0-0.50); Eosinophils % (manual) 1 %; Lymphocytes % (manual) 32 %; Metamyelocytes # (manual) 0.45 K/uL (0-0); Metamyelocytes % (manual) 4 %; Monocytes # (manual) 0.45 K/uL (0.11-0.59); Monocytes % (manual) 4 %; Myelocytes # (manual) 0.34 K/uL (0-0); Myelocytes % (manual) 3 %; Neutrophils % (manual) 56 %
[2024-06-20] MEDS: SCOPOLAMINE 1 MG/72 HR TDSY PATCH TD SCH (13:08)
--- NOTE | 2024-06-20 15:44 | Hospitalist Progress Note ---
Date of Service June 20, 2024 Assessment & Plan (1) Acute kidney injury superimposed on CKD: (2) Elevated lactic acid level: (3) Acute hyponatremia: (4) Adenocarcinoma of gallbladder: (5) History of DVT (deep vein thrombosis): (6) Anxiety: Plan Ms. 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 Patient found to have bowel obstruction. This bowel obstruction was management conservatively. Surgery signed off--stating that surgical intervention will only be pursued in an emergent situation. GI evaluated patient and spoke to Dr Morris, who placed stent. The concern of eroding tumor may be contributing to occult anemia. Patient to likely follow up with Dr. Morris. Patient remains lethargic Extensive work up for resp alkalosis and secondary metabolic alklosis ongoing -Metabolic likely 2/2 GI loses -Resp: r/o hyperammonemia, doesn't appear tachypneic/anxious Neurology consulted who notes this is likely multifactorial and best managed with supportive care From 06/17 to 06/18, patient with more alertness and ability to participate in exam. Attempting to eat more as able. Noted that liver enzymes are uptrending and given vague discomfort will order KUB to start to assess obstruction and will consider repeat CT ABD/P contingent on trend of LFTS. Liver enzymes have plateaued, appetite improving. EUGENE noted iso likely dehydration given intermittent po, which resolved with fluids. Pending continued improved and likely discharge to rehab v home based upon next 24 to 48 hours. Expressed to that patients medical condition is tenuous. That regardless of "where" she discharges it is hard to say when the recurrence of symptoms may come and if/when she may come back.. Expressed need for prompt Onc follow up to establish plan. #Acute toxic metabolic encephalopathy Biofire negative, UA negative MRI negative Ammonia 43 Neurology consulted: chronic leukoencephalopathy, cannot r/o neurotoxicity EEG pending read PT/OT ongoing Supportive care #Transaminitis #Adenocarcinoma of gallbladder Last FOLFOX treatment 05/[address] Ginny Olivera 06/08- patient's family requested 5FU reversal, but not warranted at this time per Oncology As above GI consult for further recs per General Surgery. CMP this am revealed liver enzymes elevated mildly Exam benign this am Trend CMP in am -Seems to have plateaued KUB seemingly stable compared to prior, and exam remains benign Scopolamine patch for nausea #Acute respiratory alkalosis secondary metabolic alkalosis #Diarrhea Gi losses likely etiology of metabolic alkalosis Resp alkalosis -MRI negative for clear central cause -Ammonia 43 -No pain/anxiety contributing to tachypnea Given reduced freuqncy of stool and increased intake with hold further fiber given risk of obstruction CTM output C diff negative Encourage PO #Large Bowel Obstruction CT adb/pelvis noting transition point suggestive of obstruction Follow up KUB noting persistence of bowel obstruction Pt intially NPO, IV fluids, IV antiemetics, IV pain meds General surgery consulted, appreciate recs -recommended GI consult--signed off no further recommendations non-op management -recommended oncology consult, ordered inpt and pt's outpt oncologist on board as well -Palliative care consult discontinued at request of Per surgery can advance diet given pt having BMs. Further advanced to solids, soft on 06/13 #Chemotherapy induced Neutropenia #Lactic acidosis iso obstruction/dehydration Possible sepsis r/o Pt with progressing neutropenia, in the setting of recent chemotherapy Lactate initially 4.4 on admission ->normalized to 2.0 with fluids Chest XRAY with no acute infection UA unremarkable respiratory testing negative MRSA nares negative Blood Cx x1 set NGTD. 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 New Car Driver/Oncologist Dr Christie on 06/08, s/p neupogen 480 mcg subcu for neutropenia for 3 days Need prompt OP Onc follow up given patient's desire for pursuing further treatment #Acute on chronic Anemia Hgb <7 on 06/11 s/p transfusion 1U pRBCs Holding home eliquis at this time FOBT POSITIVE Continue to monitor H/H GI re-consulted on 06/13 - will see pt after Eliquis on hold for 48hrs on 06/14 -No endoscopic interventions planned continue Eliquis #EUGENE superimposed on CKD *resolved 2/2 decreased oral intake/possible infection following chemo tx 05/30 Creatinine 2.36 on admission (previously 1.7 eight days prior) Given 2L NSS in ED, continued maintenance fluid Nephrology consulted, appreciate recs Continue to monitor, improving Repeat BMP #Generalized weakness #Hyponatremiaresolved #Hypernatremia Na 129 on admission Likely in setting of poor PO intake Noted improvement with fluids Nephrology consulted as above Continue to monitor, improving PT/OT, fall precautions Will go to rehab when stable #Hypokalemia #Hypocalcemia #Hypophosphatemia Replete as needed ionized calcium in am (corrected for albumin is normal) #Malnutrition Likely in setting of above Duty Manager consult #H/o DVT Continue Eliquis #HTN (hypertension) Continue atenolol #History of breast cancer S/p left partial mastectomy, XRT, 5 years of tamoxifen completed in August 2022 #Restless legs syndrome (RLS) Clonazepam HS PRN Diet: regular DVT Ppx: Eliquis Code status: FULL PCP: Loreta Dispo: PT/OT:PT recommends rehab, will consider [facility] Patients course prolonged 2/2 encephalopathy. Patient improved over last 48 hours and eating more, working with PT---rehab recommended undecided Admission and Anticipated Discharge Date Admission Date: June 06, 2024 Subjective Reports better morning still. Feeding self and actively eating Reports intermittent nasuea, but no abdominal pain Unable to say if diarrhea resolved as of now Spoke to at length, states that he is considering possibly no rehab and taking her home, but still undecided. Physical Exam Constitutional: WD/WN, vitals as above Respiratory: normal respiratory effort, lungs clear to auscultation Cardiovascular: RRR, no murmur, no edema Gastrointestinal (Abdomen): normal bowel sounds, soft, nontender, no hepatosplenomegaly Results & Data Results & Data Vital Signs (Past 12 Hours) Vital Signs Temp Pulse Pulse Resp BP Pulse Ox O2 Del Method 06/20/24 11:00 36.7 C 89 18 101/65 96 Room Air 06/20/24 07:53 36.6 C 74 20 97/64 L 98 Room Air 06/20/24 04:53 85 18 94/65 L 06/20/24 04:53 85 06/20/24 04:51 148 H
[2024-06-20] MEDS: CHECK SCOPOLAMINE PATCH PLACEMENT SCH (16:47)
[2024-06-21 07:01] LABS: Hematocrit (blood only) 24.8 % (37.0-47.0); Hemoglobin 7.9 g/dl (12.0-16.0); Mean Corpuscular Hemoglobin 32.2 pg (25.0-34.0); Mean Corpuscular Hgb Conc 31.9 g/dL (32.0-36.0); Mean Corpuscular Volume 101.2 fL (80.0-100.0); Mean Platelet Volume 10.4 fL (9.4-12.4); Nucleated RBC # (auto) 0.08 K/uL (0.00-0.12); Nucleated RBC % (auto) 0.7 %; Platelet Count 215 K/uL (130-400); RDW Coefficient of Variation 20.1 % (11.5-14.5); RDW Standard Deviation 74.5 fL (36.4-46.3); Red Blood Count 2.45 M/uL (4.20-5.40); White Blood Count 11.36 K/ul (4.8-10.8)
[2024-06-21 07:18] LABS: Albumin Globulin Ratio 0.8 (0.9-2); Albumin Level 1.9 gm/dl (3.4-5.0); Bilirubin,Total 0.5 mg/dl (0.2-1.0); Calcium 7.2 mg/dl (8.6-10.3); Creatinine Clr Calc Pharmacy 44.3 ml/min; Est GFR (African American) 58.2 ml/min; Est GFR (Non-African American) 50.2 ml/min; Globulin 2.3 gm/dl (2.5-4.0); Magnesium 1.8 mg/dl (1.7-2.4); Phosphorus 2.9 mg/dl (2.5-4.9); Total Protein 4.2 gm/dl (6.0-8.3)
--- NOTE | 2024-06-21 14:15 | Hospitalist Progress Note ---
Date of Service June 21, 2024 Assessment & Plan (1) Acute kidney injury superimposed on CKD: (2) Elevated lactic acid level: (3) Acute hyponatremia: (4) Adenocarcinoma of gallbladder: (5) History of DVT (deep vein thrombosis): (6) Anxiety: Plan Per previous hospitalist notes with addendum: Ms. 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 Patient found to have bowel obstruction. This bowel obstruction was management conservatively. Surgery signed off--stating that surgical intervention will only be pursued in an emergent situation. GI evaluated patient and spoke to Dr Morris, who placed stent. The concern of eroding tumor may be contributing to occult anemia. Patient to likely follow up with Dr. Morris. Patient remains lethargic Extensive work up for resp alkalosis and secondary metabolic alklosis ongoing -Metabolic likely 2/2 GI loses -Resp: r/o hyperammonemia, doesn't appear tachypneic/anxious Neurology consulted who notes this is likely multifactorial and best managed wi th supportive care From 06/17 to 06/18, patient with more alertness and ability to participate in exam. Attempting to eat more as able. Noted that liver enzymes are uptrending and given vague discomfort will order KUB to start to assess obstruction and will consider repeat CT ABD/P contingent on trend of LFTS. Liver enzymes have plateaued, appetite improving. EUGENE noted iso likely dehydration given intermittent po, which resolved with fluids. Pending continued improved and likely discharge to rehab v home based upon next 24 to 48 hours. Expressed to that patients medical condition is tenuous. That regardless of "where" she discharges it is hard to say when the recurrence of symptoms may come and if/when she may come back.. Expressed need for prompt Onc follow up to establish plan. #Acute toxic metabolic encephalopathy Biofire negative, UA negative MRI negative Ammonia 43 Neurology consulted: chronic leukoencephalopathy, cannot r/o neurotoxicity EEG pending read PT/OT ongoing Supportive care 06/21 Resolving Discontinue prochlorperazine Monitor closely #Transaminitis #Adenocarcinoma of gallbladder Last FOLFOX treatment 8/[address] Gross Continue Megace 06/08- patient's family requested 5FU reversal, but not warranted at this time per Oncology As above GI consult for further recs per General Surgery. CMP this am revealed liver enzymes elevated mildly Exam benign this am Trend CMP in am -Seems to have plateaued KUB seemingly stable compared to prior, and exam remains benign Scopolamine patch for nausea 06/21 Alk phos increased to 400s, monitor AST ALT stable Continue scopolamine patch Patient has anorexia, deconditioning Will order boost 3 times daily, nutrition consult Encouraged to increase oral intake Continue PT and OT evaluation #Acute respiratory alkalosis secondary metabolic alkalosis #Diarrhea Gi losses likely etiology of metabolic alkalosis Resp alkalosis -MRI negative for clear central cause -Ammonia 43 -No pain/anxiety contributing to tachypnea Given reduced freuqncy of stool and increased intake with hold further fiber given risk of obstruction CTM output C diff negative Encourage PO resolved #Large Bowel Obstruction CT adb/pelvis noting transition point suggestive of obstruction Follow up KUB noting persistence of bowel obstruction Pt intially NPO, IV fluids, IV antiemetics, IV pain meds General surgery consulted, appreciate recs -recommended GI consult--signed off no further recommendations non-op management -recommended oncology consult, ordered inpt and pt's outpt oncologist on board as well -Palliative care consult discontinued at request of Per surgery can advance diet given pt having BMs. Further advanced to solids, soft on 06/13 06/21 (+) BMs reolved #Chemotherapy induced Neutropenia #Lactic acidosis iso obstruction/dehydration Possible sepsis r/o Pt with progressing neutropenia, in the setting of recent chemotherapy Lactate initially 4.4 on admission ->normalized to 2.0 with fluids Chest XRAY with no acute infection UA unremarkable respiratory testing negative MRSA nares negative Blood Cx x1 set NGTD. 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 Gyroscopic Instrument Mechanic/Oncologist Dr Christie on 06/08, s/p neupogen 480 mcg subcu for neutropenia for 3 days Need prompt OP Onc follow up given patient's desire for pursuing further treatment 06/21 WBC stable #Acute on chronic Anemia Hgb <7 on 06/11 s/p transfusion 1U pRBCs Holding home eliquis at this time FOBT POSITIVE Continue to monitor H/H GI re-consulted on 06/13 - will see pt after Eliquis on hold for 48hrs on 06/14 -No endoscopic interventions planned continue Eliquis 06/21 Hg stable #EUGENE superimposed on CKD *resolved 2/2 decreased oral intake/possible infection following chemo tx 05/30 Creatinine 2.36 on admission (previously 1.7 eight days prior) Given 2L NSS in ED, continued maintenance fluid Nephrology consulted, appreciate recs Continue to monitor, improving Repeat BMP 06/21 crea back to normal #Generalized weakness #Hyponatremiaresolved #Hypernatremia Na 129 on admission Likely in setting of poor PO intake Noted improvement with fluids Nephrology consulted as above Continue to monitor, improving PT/OT, fall precautions Will go to rehab when stable 06/21 Na 135 #Hypokalemia #Hypocalcemia #Hypophosphatemia Replete as needed ionized calcium in am (corrected for albumin is normal) #Malnutrition Likely in setting of above Shoe Cementer consult #H/o DVT Continue Eliquis #HTN (hypertension) Continue atenolol #History of breast cancer S/p left partial mastectomy, XRT, 5 years of tamoxifen completed in August 2022 #Restless legs syndrome (RLS) Clonazepam HS PRN Diet: regular DVT Ppx: Eliquis Code status: FULL PCP: Loreta Dispo: PT/OT:PT recommends rehab, [facility] Admission and Anticipated Discharge Date Admission Date: June 06, 2024 Subjective Follow-up for bowel obstruction, encephalopathy, etc. Seen with patient's at the bedside visiting Patient is sitting up in bed, comfortable, somewhat drowsy, but trying to answer questions She seems to answer most questions appropriately, Feels tired this morning, appetite is poor today Denies nausea vomiting, abdominal pain No other new symptoms Review of Systems Review of Systems: all noted and negative except for above Physical Exam Physical Exam: General- oriented x 2-3, not in distress, speaks in sentences with no effort or accessory muscle use Appears drowsy, tired Eyes- anicteric Neck- no JVD Lungs- clear breath sounds bilaterally, no rales/wheezes Heart- normal rate, regular rhythm; no murmurs Abdomen- normal bowel sounds, nondistended, soft, nontender Extremities- no pretibial edema, no calf tenderness Neuro- alert, oriented x 3; no gross focal neurologic deficits Skin- warm & dry Results & Data Results & Data Vital Signs (Past 12 Hours) Vital Signs Temp Pulse Pulse Resp BP Pulse Ox O2 Del Method 06/21/24 12:56 87 06/21/24 11:35 36.6 C 80 16 99/65 L 97 Room Air 06/21/24 07:56 36.5 C 79 18 101/71 96 Room Air 06/21/24 02:42 36.6 C 86 18 108/76 98 Room Air all noted and reviewed including below
--- NOTE | 2024-06-21 18:06 | CT Scan Report ---
ABDOMEN AND PELVIS CT WITHOUT CONTRAST CT DOSE: 1213.01 mGy.cm HISTORY: Acute generalized abdominal pain abdominal pain, Gallbladder CA TECHNIQUE: Multiaxial CT images of the abdomen and pelvis were performed without contrast. A dose lo wering technique was utilized adhering to the principles of ALARA. COMPARISON STUDY: 06/06/2024, June 06, 2023 FINDINGS: Decreased attenuation of the cardiac blood pool suggestive of anemia. Trace pericardial eff usion. Biopsy clips of the left breast. Anasarca. Partially imaged [id number] catheter is in the r ight atrium. Clear lung bases. No pneumatosis or pneumoperitoneum. Study is overall limited without c ontrast. Cortical thinning of the kidneys. Bilateral renal sinus cysts redemonstrated without definite hydrone phrosis. Compressed urinary bladder with Joyner catheter. Fibroid uterus. The unenhanced spleen is unc hanged with diminutive morphology. Moderately atrophic pancreas. Unremarkable adrenal glands. Hepatic steatosis with mobility. A common bile duct stent is in place, distal tip terminating within the duodenum. This is air and par tially debris-filled. There is a heterogeneous mass again seen within the avis hepatis and expected location of the gallbladder measuring approximately 4.6 x 3.1 cm containing central hyperdensities in adjacent inflammatory stranding. There is abutment with probable involvement of the adjacent distal stomach, duodenum and hepatic flexure which was also noted on the prior studies. There is pathologic circumferential wall thickening of the hepatic flexure with transition narrowing. Surgical device is again noted extending from the stomach into adjacent duodenum. Small volume abdominal pelvic ascites. Decompressed sigmoid colon with circumferential wall thickening. There is abnormal twisting of the ri t lower quadrant mesentery which is new from 06/06/2024. This involves the ascending and transverse c olon, image 200 series 3. The narrowing at the hepatic flexure results in a high-grade large and smal l bowel obstruction with distended and fluid-filled cecum. Distended and fluid-filled abscess of smal l bowel include ileum measuring up to 5.3 cm with circumferential wall thickening. The appendix is fl uid-filled measuring up to 8 mm. Acute appendicitis considered unlikely. L2 superior endplate ernestina valerie deformity without retropulsion is unchanged. No acute fracture identified. IMPRESSION: 1. Mass within the avis hepatis redemonstrated compatible with the patient's known diagnosis of prim ting gallbladder carcinoma. This mass is again noted involving the adjacent distal stomach, duodenum a nd hepatic flexure. 2. There is tethering of the hepatic flexure from the aforementioned avis hepatis mass and there is now an internal hernia within the right lower quadrant mesentery resulting in progressive worsening o f the small bowel obstruction which is now high-grade involving the ascending colon and small bowel. Urgent surgical consultation is needed. 3. Several loops of small bowel demonstrates circumferential wall thickening which may represent isch emia. No pneumatosis, pneumoperitoneum or portal venous gas identified. 4. Common bile duct stent in place with pneumobilia confirming stent patency. 5. Additional findings as above. ACT 112: Negative or not required by law. The above report was generated using voice recognition software. It may contain grammatical, syntax o r spelling errors. Electronically signed by: Meng Lester M.D. 06/21/2024 6:04 PM
--- NOTE | 2024-06-21 18:50 | Communication Note ---
Date of Service: June 21, [address] abdomen was concerning for worsening bowel obstruction and possible ischemia. Made patient n.p.o., started on gentle IV fluids, check lactic acid levels and will place NG tube. Surgery reconsulted. Updated on-call surgeon as requested by Dr. Jones.
[2024-06-21] MEDS: SODIUM CHLORIDE 0.9% 1,000 ML IV SCH (20:19)
[2024-06-21] MEDS: PANTOprazole 40 MG in SYRINGE 0 ML IV SCH (20:22)
--- NOTE | 2024-06-21 20:33 | Surgery Progress Note ---
<Statement entered by Cindy Edge, - 06/22/24 09:28> I saw and examined this patient with the surgical PA. I agree with this plan. Date of Service June 21, 2024 Assessment & Plan (1) Small bowel obstruction: Plan: Patient has been admitted on the medical service Surgical perspective at the present time the patient does not have an acute abdomen and need of emergent surgery N.p.o. status should be implemented Due to CT scan findings we have recommended an NG tube be placed to low intermittent suction Intravenous fluids should be employed for hydration (this has been ordered by the medical service) As noted the patient does not have an acute abdomen at this time and due to her medical comorbidities to be preferable to avoid surgical intervention at this time. Will therefore proceed with conservative measures as outlined above monitoring patient's clinical progress with additional recommendations to follow At the present time the patient is nontoxic-appearing. She is normotensive without tachycardia or fever and did not appear to be in any distress at time of our interview with the patient. Addendum (1:00 PM) Nursing staff noted NG tube placed difficulty. Initial KUB showed that the tip of the NG tube appeared to be just superior to the diaphragm. Nursing staff subsequently advanced NG tube and tip of the NG tube now appears to be in the stomach. Will place this to suction. The patient was visited at bedside. Her abdomen is soft without rigidity or distention. There is no pain with palpation and no rebound tenderness or guarding. Nursing staff does not report any issues at this time and notes that the patient has been hemodynamically stable and has not had any emesis. Will continue with conservative management as outlined above. Admission and Anticipated Discharge Date Admission Date: June 06, 2024 Subjective This is a 74-year-old female who was previously evaluated by general surgery. Patient has an underlying history of adenocarcinoma of the gallbladder manage previously seen by [facility] general surgery for large bowel obstruction. Most recent visit by the surgical service was on 06/12/2024 and at that time the patient was passing flatus and having bowel movements and was also tolerating diet. There is determine any surgical or intervention would be deferred unless patient required emergent surgery where she was noted to have a complete bowel obstruction. Patient developed some abdominal pain earlier today and the medical service was prompted by the symptoms to repeat a CT scan abdomen pelvis. This was performed earlier today and patient was noted to have tethering of her hepatic flexure with concern for an internal hernia in the right lower quadrant mesentery causing a progressive small bowel obstruction which was felt to be high-grade. There are also several loops of small bowel episode of circumferential thickening which the interpreting radiologist could not exclude ischemia. There is no pneumatosis, pneumoperitoneum or portal venous gas noted. We visited with the patient at the bedside at the time of our exam the patient notes that she did not have any further abdominal pain and did not have any nausea or vomiting. She notes that she was passing flatus. She also reports that she has not had any recent analgesics which was confirmed by the nursing staff. Should be noted that she was resting comfortably in bed and was in no distress at time of our exam. Physical Exam Constitutional: no acute distress Respiratory: normal respiratory effort; no respiratory distress and no labored breathing Cardiovascular: Rate/Rhythm: regular rate and regular rhythm Gastrointestinal (Abdomen): Abdomen is noted to be soft without distention. There is no rigidity. With palpation no pain was elicited. Results & Data Vital Signs (Past 12 Hours) Vital Signs Temp Pulse Pulse Resp BP Pulse Ox O2 Del Method 06/21/24 19:11 36.5 C 88 18 97/60 L 95 Room Air 06/21/24 15:16 36.7 C 72 18 102/66 96 Room Air 06/21/24 12:56 87 06/21/24 11:35 36.6 C 80 16 99/65 L 97 Room Air PG Care Time/CCT Total # of Minutes Spent Total Time Spent with Patient: Total time spent is greater than 50% in coordination of care (as documented) at patient's floor/unit and/or counseling patient: Coding Level of Care Code 05869 SUB INP/OBS CARE 10/28MIN Diagnoses Small bowel obstruction K56.609
--- NOTE | 2024-06-22 06:40 | XRay Report ---
KUB CLINICAL HISTORY: repeat NGT placement- after advancement COMPARISON STUDY: CT of the abdomen and pelvis and KUB performed earlier today. FINDINGS: Right sided Kmhozz-l-Cjpk is in place. Nasogastric tube is coiled within the stomach. Tip p rojects over the gastric cardia. There is no pneumothorax or pleural effusion. No consolidation. Pulm onary vascularity is normal. Endoscopic stent within the stomach is partially imaged. IMPRESSION: 1. Nasogastric tube coiled within the stomach. The tip projects over the gastric cardia. 2. No acute cardiopulmonary findings. ACT 112: Negative or not required by law. Electronically signed by: Jerel Jones M.D. 06/22/2024 6:39 AM
--- NOTE | 2024-06-22 07:28 | XRay Report ---
KUB HISTORY: Status post placement of enteric tube new NGT placement verification COMPARISON: CT abdomen and pelvis of same day FINDINGS: Right IJ Tbkzax-x-Uuxm catheter appears unchanged. Distal tip of enteric tube coiled upon i tself and is projected superiorly within the region of the distal esophagus. The majority of the abdo men is excluded from the [id number]-rd-tgqk. The imaged lung bahena appear clear. IMPRESSION: Distal tip of enteric tube projects over the distal esophagus. Repositioning with follow-up imaging i s needed. ACT 112: Negative or not required by law. The above report was generated using voice recognition software. It may contain grammatical, syntax o r spelling errors. Electronically signed by: Meng Lester M.D. 06/22/2024 7:27 AM
[2024-06-22 10:04] LABS: Hematocrit (blood only) 23.9 % (37.0-47.0); Hemoglobin 7.6 g/dl (12.0-16.0); Mean Corpuscular Hemoglobin 32.3 pg (25.0-34.0); Mean Corpuscular Hgb Conc 31.8 g/dL (32.0-36.0); Mean Corpuscular Volume 101.7 fL (80.0-100.0); Mean Platelet Volume 10.3 fL (9.4-12.4); Nucleated RBC % (auto) 0.7 %; Platelet Count 189 K/uL (130-400); RDW Standard Deviation 77.5 fL (36.4-46.3); Red Blood Count 2.35 M/uL (4.20-5.40); White Blood Count 13.55 K/ul (4.8-10.8)
[2024-06-22 10:21] LABS: Albumin Globulin Ratio 0.8 (0.9-2); Albumin Level 1.9 gm/dl (3.4-5.0); Bilirubin,Total 0.5 mg/dl (0.2-1.0); Calcium 7.2 mg/dl (8.6-10.3); Creatinine Clr Calc Pharmacy 45.5 ml/min; Est GFR (African American) 60.2 ml/min; Est GFR (Non-African American) 51.9 ml/min; Globulin 2.5 gm/dl (2.5-4.0); Magnesium 1.8 mg/dl (1.7-2.4); Phosphorus 2.8 mg/dl (2.5-4.9); Total Protein 4.4 gm/dl (6.0-8.3)
--- NOTE | 2024-06-22 10:30 | Surgery Progress Note ---
Date of Service June 22, 2024 Assessment & Plan (1) Small bowel obstruction: Plan: Return of partial SBO in a 74F on CTX for a nonoperable GB carcinoma invading the colon with biliary obstruction relieved by GI interventions. Initial consult this 16 day admission obtained by [facility] [place] surgery. [facility] [place] General surgery reconsulted last evening at day 15 for recurrent symptoms. Afebrile with stable HD. Leukocytosis increased. Will obtain a SBFT at this time. I spoke with the patient and her who was at bedside this am at length going over the full history, where she is in her treatments, treatment responses and what are expectations are for this current condition. Further plan pending results of SBFT. Continue strict I/O In the meantime, recommend consideration of parenteral nutrition in this patient on CTX, and inability to consistently take in PO for (2) Chemotherapy induced neutropenia: Admission and Anticipated Discharge Date Admission Date: June 06, 2024 Subjective Patient was seen and examined this am. NGT in place with dark brown liquid drainage. Denies any further abdominal pains or nausea and continues to admit to passing flatus. Physical Exam Constitutional: + ill appearing; + not healthy appearing , not in distress and not diaphoretic Respiratory: normal respiratory effort; no respiratory distress, no labored breathing and does not use accessory muscles Gastrointestinal (Abdomen): soft, non-tender, non-distended. NGT with dark brown liquid drainage. Output not recorded, current canister appears 200-300mL Results & Data Vital Signs (Past 12 Hours) Vital Signs Temp Pulse Pulse Resp BP Pulse Ox O2 Del Method 06/22/24 07:50 36.6 C 79 18 105/69 97 Room Air 06/22/24 03:01 36.5 C 87 18 95/66 L 98 Room Air 06/21/24 23:00 93 H 06/21/24 22:45 37.2 C 91 H 18 94/67 L 96 Room Air Results Complete Blood Count Results: RBC 2.35 M/uL (4.20-5.40) L 06/22/24 WBC 13.55 K/ul (4.8-10.8) H 06/22/24 Hgb 7.6 g/dl (12.0-16.0) L 06/22/24 Hct 23.9 % (37.0-47.0) L 06/22/24 Plt Count 189 K/uL (130-400) 06/22/24 PG Care Time/CCT Total # of Minutes Spent Total Time Spent with Patient: Total time spent is greater than 50% in coordination of care (as documented) at patient's floor/unit and/or counseling patient: Coding Level of Care Code 11470 SUB INP/OBS CARE 2/35MIN Diagnoses Small bowel obstruction K56.609 Chemotherapy induced neutropenia D70.1; T45.1X5A
[2024-06-22 11:00] LABS: ALC (manual) 3.12 K/uL (1.2-3.4); ANC (manual) 8.94 K/uL (1.4-6.5); Lymphocytes # (manual) 3.12 K/uL (1.2-3.4); Lymphocytes % (manual) 23 %; Metamyelocytes # (manual) 0.68 K/uL (0-0); Metamyelocytes % (manual) 5 %; Monocytes # (manual) 0.41 K/uL (0.11-0.59); Monocytes % (manual) 3 %; Myelocytes # (manual) 0.41 K/uL (0-0); Myelocytes % (manual) 3 %; Neutrophils # (manual) 8.94 K/uL (1.40-6.50); Neutrophils % (manual) 66 %
[2024-06-22] MEDS ORDERED: TPN/PPN CONSULT PHARMACY PRN (13:28)
[2024-06-22] MEDS: HEPARIN SOD 5,000 UNIT/0.5 ML VIAL SQ SCH (14:40)
[2024-06-22] MEDS ORDERED: DEXTROSE 10% 1,000 ML IV PRN (16:00)
[2024-06-22] MEDS: AA 4.25%/D5W 1L 1,000 ML in Peripheral TPN bag 0 ML IV SCH (16:10)
[2024-06-22] MEDS: CLINOLIPID 20% IV FAT EMULSION 150 ML IV SCH (16:10)
--- NOTE | 2024-06-22 17:05 | Hospitalist Progress Note ---
Date of Service June 22, 2024 delayed entry date of service noted above Assessment & Plan (1) Acute kidney injury superimposed on CKD: (2) Elevated lactic acid level: (3) Acute hyponatremia: (4) Adenocarcinoma of gallbladder: (5) History of DVT (deep vein thrombosis): (6) Anxiety: Plan (1) Acute kidney injury superimposed on CKD: (2) Elevated lactic acid level: (3) Acute hyponatremia: (4) Adenocarcinoma of gallbladder: (5) History of DVT (deep vein thrombosis): (6) Anxiety: Plan Per previous hospitalist notes with addendum: Ms. 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 Patient found to have bowel obstruction. This bowel obstruction was management conservatively. Surgery signed off--stating that surgical intervention will only be pursued in an emergent situation. GI evaluated patient and spoke to Dr Morris, who placed stent. The concern of eroding tumor may be contributing to occult anemia. Patient to likely follow up with Dr. Morris. Patient remains lethargic Extensive work up for resp alkalosis and secondary metabolic alklosis ongoing -Metabolic likely 2/2 GI loses -Resp: r/o hyperammonemia, doesn't appear tachypneic/anxious Neurology consulted who notes this is likely multifactorial and best managed with supportive care From 06/17 to 06/18, patient with more alertness and ability to participate in exam. Attempting to eat more as able. Noted that liver enzymes are uptrending and given vague discomfort will order KUB to start to assess obstruction and will consider repeat CT ABD/P contingent on trend of LFTS. Liver enzymes have plateaued, appetite improving. EUGENE noted iso likely dehydration given intermittent po, which resolved with fluids. Pending continued improved and likely discharge to rehab v home based upon next 24 to 48 hours. Expressed to that patients medical condition is tenuous. That regardless of "where" she discharges it is hard to say when the recurrence of symptoms may come and if/when she may come back.. Expressed need for prompt Onc follow up to establish plan. #Acute toxic metabolic encephalopathy Biofire negative, UA negative MRI negative Ammonia 43 Neurology consulted: chronic leukoencephalopathy, cannot r/o neurotoxicity EEG pending read PT/OT ongoing Supportive care 06/21 Resolving Discontinue prochlorperazine Monitor closely 06/22 patient tired from events last night continue to monitor #Transaminitis #Adenocarcinoma of gallbladder Last FOLFOX treatment 05/[address] Gross Continue Megace 06/08- patient's family requested 5FU reversal, but not warranted at this time per Oncology As above GI consult for further recs per General Surgery. CMP this am revealed liver enzymes elevated mildly Exam benign this am Trend CMP in am -Seems to have plateaued KUB seemingly stable compared to prior, and exam remains benign Scopolamine patch for nausea 06/21 Alk phos increased to 400s, monitor AST ALT stable Continue scopolamine patch Patient has anorexia, deconditioning Will order boost 3 times daily, nutrition consult Encouraged to increase oral intake Continue PT and OT evaluation 06/22 CT abd showing obstruction NGT placed, NPO status Gen Surg reconsulted #Acute respiratory alkalosis secondary metabolic alkalosis #Diarrhea Gi losses likely etiology of metabolic alkalosis Resp alkalosis -MRI negative for clear central cause -Ammonia 43 -No pain/anxiety contributing to tachypnea Given reduced freuqncy of stool and increased intake with hold further fiber given risk of obstruction CTM output C diff negative Encourage PO resolved #Large Bowel Obstruction CT adb/pelvis noting transition point suggestive of obstruction Follow up KUB noting persistence of bowel obstruction Pt intially NPO, IV fluids, IV antiemetics, IV pain meds General surgery consulted, appreciate recs -recommended GI consult--signed off no further recommendations non-op management -recommended oncology consult, ordered inpt and pt's outpt oncologist on board as well -Palliative care consult discontinued at request of Per surgery can advance diet given pt having BMs. Further advanced to solids, soft on 06/13 06/21 (+) BMs reolved 06/22 per above #Chemotherapy induced Neutropenia #Lactic acidosis iso obstruction/dehydration Possible sepsis r/o Pt with progressing neutropenia, in the setting of recent chemotherapy Lactate initially 4.4 on admission ->normalized to 2.0 with fluids Chest XRAY with no acute infection UA unremarkable respiratory testing negative MRSA nares negative Blood Cx x1 set NGTD. 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 Bulk Plant Agent/Oncologist Dr Christie on 06/08, s/p neupogen 480 mcg subcu for neutropenia for 3 days Need prompt OP Onc follow up given patient's desire for pursuing further treatment 06/21 WBC stable 06/22m monitor #Acute on chronic Anemia Hgb <7 on 06/11 s/p transfusion 1U pRBCs Holding home eliquis at this time FOBT POSITIVE Continue to monitor H/H GI re-consulted on 06/13 - will see pt after Eliquis on hold for 48hrs on 06/14 -No endoscopic interventions planned continue Eliquis 06/21 Hg stable 06/22 Hg remains stable monitor #EUGENE superimposed on CKD *resolved 2/2 decreased oral intake/possible infection following chemo tx 05/30 Creatinine 2.36 on admission (previously 1.7 eight days prior) Given 2L NSS in ED, continued maintenance fluid Nephrology consulted, appreciate recs Continue to monitor, improving Repeat BMP 06/21 crea back to normal 06/22 stable continue to monitor #Generalized weakness #Hyponatremiaresolved #Hypernatremia Na 129 on admission Likely in setting of poor PO intake Noted improvement with fluids Nephrology consulted as above Continue to monitor, improving PT/OT, fall precautions Will go to rehab when stable 06/21 Na 135 06/22 Na 136 #Hypokalemia #Hypocalcemia #Hypophosphatemia Replete as needed ionized calcium in am (corrected for albumin is normal) #Malnutrition Likely in setting of above Healthcare Receptionist consult #H/o DVT Continue Eliquis #HTN (hypertension) Continue atenolol #History of breast cancer S/p left partial mastectomy, XRT, 5 years of tamoxifen completed in August 2022 #Restless legs syndrome (RLS) Clonazepam HS PRN Diet: regular DVT Ppx: Eliquis Code status: FULL PCP: Loreta Dispo: PT/OT:PT recommends rehab, will consider [facility] Admission and Anticipated Discharge Date Admission Date: June 06, 2024 Subjective Follow-up for bowel obstruction, etc. Seen resting in bed, sitting up, NG tube in place with wall suction Feels okay overall Denies abdominal pain or nausea today Still feeling weak and tired No other new symptoms Review of Systems Constitutional: all noted and negative except for above Physical Exam Physical Exam: General- oriented x 3, not in distress, no effort or accessory muscle use Appears tired Eyes- anicteric Neck- no JVD NG tube in place draining bilious fluid Lungs- clear breath sounds bilaterally, no rales/wheezes Heart- normal rate, regular rhythm; no murmurs Abdomen- normal bowel sounds, nondistended, soft, nontender Extremities- no pretibial edema, no calf tenderness Neuro- alert, oriented x 3; no gross focal neurologic deficits Skin- warm & dry Results & Data Results & Data Vital Signs (Past 12 Hours) Vital Signs Temp Pulse Pulse Resp BP Pulse Ox O2 Del Method 06/22/24 16:00 36.5 C 78 18 101/69 97 Room Air 06/22/24 11:25 36.4 C L 89 16 91/64 L 100 Room Air 06/22/24 07:50 36.6 C 79 18 105/69 97 Room Air 06/22/24 07:00 87 all noted and reviewed including below
[2024-06-22] MEDS: STOP CLINOLIPID SCH (22:04)
[2024-06-23 07:49] LABS: Hematocrit (blood only) 21.6 % (37.0-47.0); Hemoglobin 6.8 g/dl (12.0-16.0); Mean Corpuscular Hemoglobin 32.2 pg (25.0-34.0); Mean Corpuscular Hgb Conc 31.5 g/dL (32.0-36.0); Mean Corpuscular Volume 102.4 fL (80.0-100.0); Mean Platelet Volume 10.5 fL (9.4-12.4); Nucleated RBC % (auto) 0.8 %; Platelet Count 172 K/uL (130-400); RDW Coefficient of Variation 20.6 % (11.5-14.5); RDW Standard Deviation 77.2 fL (36.4-46.3); Red Blood Count 2.11 M/uL (4.20-5.40); White Blood Count 12.59 K/ul (4.8-10.8)
[2024-06-23 07:58] LABS: Albumin Globulin Ratio 0.7 (0.9-2); Albumin Level 1.8 gm/dl (3.4-5.0); BUN Creatinine Ratio 38.4 (10-20); Bilirubin,Total 0.5 mg/dl (0.2-1.0); Calcium 7.2 mg/dl (8.6-10.3); Creatinine Clr Calc Pharmacy 48.2 ml/min; Est GFR (African American) 64.6 ml/min; Est GFR (Non-African American) 55.7 ml/min; Globulin 2.5 gm/dl (2.5-4.0); Magnesium 1.6 mg/dl (1.7-2.4); Phosphorus 2.2 mg/dl (2.5-4.9); Potassium 3.2 mmol/L (3.5-5.1); Total Protein 4.3 gm/dl (6.0-8.3)
[2024-06-23] MEDS ORDERED: SODIUM CHLORIDE 0.9% 250 ML IV PRN (08:16)
[2024-06-23] MEDS ORDERED: POTASSIUM PHOS 3 MMOL/1 ML INFUSION IV STA (08:24)
[2024-06-23 08:37] LABS: ALC (manual) 1.26 K/uL (1.2-3.4); ANC (manual) 9.69 K/uL (1.4-6.5); Anisocytosis Present; Eosinophils # (manual) 0.13 K/uL (0-0.50); Eosinophils % (manual) 1 %; Lymphocytes # (manual) 1.26 K/uL (1.2-3.4); Lymphocytes % (manual) 10 %; Metamyelocytes % (manual) 4 %; Monocytes % (manual) 4 %; Myelocytes % (manual) 4 %; Neutrophils # (manual) 9.69 K/uL (1.40-6.50); Neutrophils % (manual) 77 %; Polychromasia 1+; Tear Drop Cells 1+
[2024-06-23] MEDS ORDERED: POTASSIUM PHOSPHATE 15 MMOL in SODIUM CHLORIDE 0.9% 250 ML IV ONE (08:45)
[2024-06-23] MEDS: ACETAMINOPHEN 1,000 MG/100 ML VIAL IV STA (09:39)
[2024-06-23] MEDS: POTASSIUM CHLORIDE / WTR 10 MEQ/100 ML PLCT IV SCH (10:22)
[2024-06-23] MEDS: MAGNESIUM SULFATE / D5W 1 GM/100 ML BAG IV SCH (10:22)
--- NOTE | 2024-06-23 10:25 | Fluoroscopy Report ---
FL small bowel follow through CLINICAL HISTORY: Evaluate for small bowel obstruction. COMPARISON STUDY: KUB 06/21/2024. Abdomen and pelvis CT 06/21/2024. FLUOROSCOPY TIME: None. FLUOROSCOPY IMAGES: None. FINDINGS: 5 overhead images of the abdomen and pelvis were submitted for review. Certified Breastfeeding Educator image demonstr ates a nasogastric tube within the stomach. As a metallic common bile duct stent noted. There is also metallic gastrojejunostomy stent. Mildly dilated gas-filled loops of small bowel are seen throughout the abdomen. Gas and stool seen within the mildly distended proximal colon. A total of 600 cc of dil uted Optiray 320 was injected through the indwelling NG tube. Contrast is seen within the stomach but does not extend into the duodenum likely due to the patient's obstructing mass at this location. How ever, the contrast extends through the patent gastrojejunostomy stent and into the small bowel. The c ontrast reached the colon at 30 minutes. Therefore, no evidence for bowel obstruction. IMPRESSION: 1. Mildly dilated loops of small bowel without evidence for an obstruction. This may represent a mild ileus. 2. Contrast extends through the patent gastrojejunostomy stent . No contrast is seen within the duode num likely due to the obstructing mass at the avis hepatis seen on the prior CT. ACT 112: Negative or not required by law. Electronically signed by: Jose Tavarez M.D. 06/23/2024 10:24 AM
--- NOTE | 2024-06-23 10:31 | Surgery Progress Note ---
Date of Service June 23, 2024 Assessment & Plan (1) Bowel obstruction: (2) Adenocarcinoma of gallbladder: Plan small vs large bowel obstruction. complete SBFT to see if contrast will progress through the colon beyond the known area of invasin of the GB. May need a follow up scan in the am Patient is very uncomfortable with the NGT and would has been wanting it out since it went back in. We will keep it clamped at this time for a clamping trial to be initiated. If there is a colonic obstruction, consideration may be made for a loop ileostomy. This will have to be discussed with the patient and her whom I spoke to again this am at bedside. She is not a great operative candidate. At this time she is not leukopenic and has a mild leukocytosis which is improved from yesterday. Significant anemia and would require blood transfusion prior to a procedure. The other option is a PEG placed by GI for venting when needed but this may not allow for any significant nutrition if liquids are not going to pass through the colon. caty is covering this weekend (Dr. Garcia) and he knows this case as he was originally consulted when she arrived. He will follow up the final study results and plan from there with the patient and her . Admission and Anticipated Discharge Date Admission Date: June 06, 2024 Subjective I have seen and examined this patient this am. Says she passed flatus this am. Denies N/V. SBFT in progress. Physical Exam Gastrointestinal (Abdomen): NGT with light bilious drainage. Abdomen benign, soft Results & Data Vital Signs (Past 12 Hours) Vital Signs Temp Pulse Pulse Resp BP Pulse Ox O2 Del Method 06/23/24 07:31 67 06/23/24 07:24 36.4 C L 86 18 102/71 99 Room Air 06/23/24 02:56 36.4 C L 87 16 105/70 100 Room Air 06/22/24 23:22 36.5 C 91 H 16 101/69 100 Room Air PG Care Time/CCT Total # of Minutes Spent Total Time Spent with Patient: Total time spent is greater than 50% in coordination of care (as documented) at patient's floor/unit and/or counseling patient: Coding Level of Care Code 92275 SUB INP/OBS CARE 10/28MIN Diagnoses Bowel obstruction K56.609 Adenocarcinoma of gallbladder C23
[2024-06-23] MEDS: POTASSIUM PHOSPHATE 15 MMOL in SODIUM CHLORIDE 0.9% 250 ML IV ONE ×2 (12:40→17:53)
--- NOTE | 2024-06-23 15:37 | Pharmacy Report ---
Pharmacy Initial PN Consult Nt - Date of Service June 23, 2024 - [facility] has been consulted on this date to manage parenteral nutrition orders and order appropriate labs. As part of the Nutrition Support Team Guidelines, pharmacy will work in conjunction with dietary when determining the patients caloric needs. - Subjective * The patient is a 74 year old Female admitted on 06/06/24 for MET CANCER, GENERALIZED WEAKNESS, EUGENE. * Patient is to receive parenteral nutrition for SBO/prolonged NPO. * Pertinent PMHx: adenocarcinoma of gallbladder, prediabetes - Objective Vascular Access: * Patient currently has a central port Height & Weight (Last Documented) Height 5 ft 5 in Weight 70 kg Diet Order(s) 06/21/24 18:38 NPO Intake & Ouput (24hrs) 06/22/24 06/23/24 06/24/24 06:59 06:59 06:59 Intake Total 550 / 550 1814.000 / 1814.000 454.999 / 454.999 Output Total 700 / 700 1550 / 1550 Balance -150 / -150 264.000 / 264.000 454.999 / 454.999 Selected Laboratory Results 06/23/24 07:13 Sodium 135 L Potassium 3.2 L Chloride 110 H Carbon Dioxide 19 L Anion Gap 6 BUN 38 H Creatinine 0.99 Est GFR ( Amer) 64.6 Est GFR (Non-Af Amer) 55.7 BUN/Creatinine Ratio 38.4 H Glucose 168 H Calcium 7.2 L Phosphorus 2.2 L Magnesium 1.6 L Total Bilirubin 0.5 AST 14 ALT 26 Alkaline Phosphatase 278 [address]ig[address] - Follow Up Nutrition Assessment Start: 06/07/24 19:33 Freq: Status: Active Protocol: Document 06/22/24 14:05 KK (Rec: 06/22/24 14:20 [id number]) RD - Initial Nutrition Assessment Start: 06/07/24 19:21 Freq: Status: Active Protocol: Document 06/07/24 19:21 KK (Rec: 06/07/24 19:33 [email or web address]) - Assessment & Plan Assessment: * Appreciate dietitians recommendations for macronutrients. * Labs suspicious for refeeding syndrome, will aggressively replete micronutrients and continue with peripheral concentration of Clinimix today. * #4 10mEq KRiders, 2gm magnesium sulfate, and 15mmol Kphos ordered outside of PN * Repeat labs Q12H until stable, hold PN if Potassium is less than 3.0mmol/L and/or Phosphate is less than 2.0mg/dL * Will administer peripheral concentration Clinimix through central port today, plan to switch to central concentration tomorrow if stable. Plan: * For Day #1 of PN administration, the following will be ordered: * Macronutrients: * Amino Acids: 42.5 grams/day * Dextrose: 50 grams/day * Lipids: HOLD today * Micronutrients: * Sodium chloride: 15 mEq/day * Sodium acetate: 55 mEq/day * Potassium phosphate: 15 mMol/day * Potassium chloride: 40 mEq/day * Magnesium sulfate: 8.12 mEq/day * Calcium gluconate: 4.65 mEq/day * Multivitamins: 10 mL/day * Trace elements: 1 mL/day * Thiamine: 100 mg/day * Folic Acid: 1 mg/day * Total volume of 1083 mL will be infused over 24 hours and will provide 340 kcal/day * Labs will be ordered per PN protocol. * Pharmacy will follow and adjust PN orders on a daily basis. Thank you!
--- NOTE | 2024-06-23 16:40 | Hospitalist Progress Note ---
Date of Service June 23, 2024 Assessment & Plan (1) Acute kidney injury superimposed on CKD: (2) Elevated lactic acid level: (3) Acute hyponatremia: (4) Adenocarcinoma of gallbladder: (5) History of DVT (deep vein thrombosis): (6) Anxiety: Plan Per previous hospitalist notes with addendum: Ms. 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 Patient found to have bowel obstruction. This bowel obstruction was management conservatively. Surgery signed off--stating that surgical intervention will only be pursued in an emergent situation. GI evaluated patient and spoke to Dr Morris, who placed stent. The concern of eroding tumor may be contributing to occult anemia. Patient to likely follow up with Dr. Morris. Patient remains lethargic Extensive work up for resp alkalosis and secondary metabolic alklosis ongoing -Metabolic likely 2/2 GI loses -Resp: r/o hyperammonemia, doesn't appear tachypneic/anxious Neurology consulted who notes this is likely multifactorial and best managed wi th supportive care From 06/17 to 06/18, patient with more alertness and ability to participate in exam. Attempting to eat more as able. Noted that liver enzymes are uptrending and given vague discomfort will order KUB to start to assess obstruction and will consider repeat CT ABD/P contingent on trend of LFTS. Liver enzymes have plateaued, appetite improving. EUGENE noted iso likely dehydration given intermittent po, which resolved with fluids. Pending continued improved and likely discharge to rehab v home based upon next 24 to 48 hours. Expressed to that patients medical condition is tenuous. That regardless of "where" she discharges it is hard to say when the recurrence of symptoms may come and if/when she may come back.. Expressed need for prompt Onc follow up to establish plan. #Acute toxic metabolic encephalopathy Biofire negative, UA negative MRI negative Ammonia 43 Neurology consulted: chronic leukoencephalopathy, cannot r/o neurotoxicity EEG pending read PT/OT ongoing Supportive care 06/22 Resolving Discontinue prochlorperazine Monitor closely 06/23 Oriented but mostly on the drowsy side Hopefully with initiation of PPN, Treatment of bowel obstruction, patient will continue to improve Monitor closely #Transaminitis #Adenocarcinoma of gallbladder Last FOLFOX treatment 05/[address] Ginny Olivera 06/08- patient's family requested 5FU reversal, but not warranted at this time per Oncology As above GI consult for further recs per General Surgery. CMP this am revealed liver enzymes elevated mildly Exam benign this am Trend CMP in am -Seems to have plateaued KUB seemingly stable compared to prior, and exam remains benign Scopolamine patch for nausea 06/21 Alk phos increased to 400s, monitor AST ALT stable Continue scopolamine patch 06/22 Alk phos continues to trend down Bilirubin, AST/ALT normal Small bowel, large bowel obstruction Developed abdominal pain yesterday, CT scan showing above General Surgery consulted N.p.o., IV fluids, NG tube Small bowel follow-through ordered Monitor closely 06/23 SBFT: Showing passage of contrast throughout the small intestine and colon, possible ileus NG tube in place, wall suction discontinued Continue to monitor Continue PPN, replace electrolytes #Acute respiratory alkalosis secondary metabolic alkalosis #Diarrhea Gi losses likely etiology of metabolic alkalosis Resp alkalosis -MRI negative for clear central cause -Ammonia 43 -No pain/anxiety contributing to tachypnea Given reduced freuqncy of stool and increased intake with hold further fiber given risk of obstruction CTM output C diff negative Encourage PO resolved #Large Bowel Obstruction CT adb/pelvis noting transition point suggestive of obstruction Follow up KUB noting persistence of bowel obstruction Pt intially NPO, IV fluids, IV antiemetics, IV pain meds General surgery consulted, appreciate recs -recommended GI consult--signed off no further recommendations non-op management -recommended oncology consult, ordered inpt and pt's outpt oncologist on board as well -Palliative care consult discontinued at request of Per surgery can advance diet given pt having BMs. Further advanced to solids, soft on 06/13 as per above #Chemotherapy induced Neutropenia #Lactic acidosis iso obstruction/dehydration Possible sepsis r/o Pt with progressing neutropenia, in the setting of recent chemotherapy Lactate initially 4.4 on admission ->normalized to 2.0 with fluids Chest XRAY with no acute infection UA unremarkable respiratory testing negative MRSA nares negative Blood Cx x1 set NGTD. 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 Paralegal Secretary/Oncologist Dr Christie on 06/08, s/p neupogen 480 mcg subcu for neutropenia for 3 days Need prompt OP Onc follow up given patient's desire for pursuing further treatment 06/22 WBC stable #Acute on chronic Anemia Hgb <7 on 06/11 s/p transfusion 1U pRBCs Holding home eliquis at this time FOBT POSITIVE Continue to monitor H/H GI re-consulted on 06/13 - will see pt after Eliquis on hold for 48hrs on 06/14 -No endoscopic interventions planned continue Eliquis Hemoglobin today 6.8 Likely upper GI source, in light of NG tube, Eliquis use 1 unit packed RBCs ordered Monitor hemoglobin Continue Protonix IV twice daily Hold heparin subcu #EUGENE superimposed on CKD *resolved 2/2 decreased oral intake/possible infection following chemo tx 05/30 Creatinine 2.36 on admission (previously 1.7 eight days prior) Given 2L NSS in ED, continued maintenance fluid Nephrology consulted, appreciate recs Continue to monitor, improving Repeat BMP 06/22 crea back to normal #Generalized weakness #Hyponatremiaresolved #Hypernatremia Na 129 on admission Likely in setting of poor PO intake Noted improvement with fluids Nephrology consulted as above Na 135 #Hypokalemia #Hypocalcemia #Hypophosphatemia Replete as needed ionized calcium in am (corrected for albumin is normal) replacement underway #Malnutrition Likely in setting of above Railway Patrol Officer consult #H/o DVT Eliquis held for SBO, possible emergency procedures Heparin SC TID --> hold for anemia #HTN (hypertension) Continue atenolol #History of breast cancer S/p left partial mastectomy, XRT, 5 years of tamoxifen completed in August 2022 #Restless legs syndrome (RLS) Clonazepam HS PRN Diet: regular DVT Ppx: Eliquis Code status: FULL PCP: Loreta Dispo: pending Admission and Anticipated Discharge Date Admission Date: June 06, 2024 Subjective Seen resting in bed, mostly drowsy but trying to interact with a few words, gestures Not in distress, NG tube in place but off wall suction Patient's Toño the bedside visiting Patient states she feels fine Denies abdominal pain, nausea or vomiting today Has been mostly drowsy as per Review of Systems Review of Systems: all noted and negative except for above Physical Exam Physical Exam: General- oriented x 3, not in distress, Tired, sleepy, no effort or accessory muscle use Eyes- anicteric Neck- no JVD Lungs- clear breath sounds bilaterally, no rales/wheezes Heart- normal rate, regular rhythm; no murmurs Abdomen- Hypoactive bowel sounds, nondistended, soft, nontender Extremities- no pretibial edema, no calf tenderness Neuro- Drowsy, but oriented x 3, no gross focal neurologic deficits Skin- warm & dry Results & Data Results & Data Vital Signs (Past 12 Hours) Vital Signs Temp Pulse Pulse Resp BP BP Pulse Ox 06/23/24 15:59 36.7 C 85 16 114/80 100 06/23/24 14:59 36.7 C 88 20 106/74 98 06/23/24 14:29 37 C 88 20 109/76 100 06/23/24 14:14 36.8 C 86 18 102/70 06/23/24 14:13 36.8 C 87 18 102/70 100 06/23/24 13:48 36.6 C 86 20 104/72 99 06/23/24 10:59 36.2 C L 88 18 104/75 100 06/23/24 07:31 67 06/23/24 07:24 36.4 C L 86 18 102/71 99 O2 Del Method 06/23/24 15:59 06/23/24 14:59 06/23/24 14:29 06/23/24 14:14 06/23/24 14:13 06/23/24 13:48 06/23/24 10:59 Room Air 06/23/24 07:31 06/23/24 07:24 Room Air all noted and reviewed including below
[2024-06-23] MEDS: CENTRAL TPN IV SCH (16:49)
[2024-06-23] MEDS: [UNRECOGNIZED DRUG - OTHER] IV SCH (16:49)
[2024-06-23] MEDS ORDERED: Nursing to Pharmacy Communication SCH (17:15)
--- NOTE | 2024-06-23 18:03 | Hospitalist Progress Note ---
Date of Service June 23, 2024 Assessment & Plan (1) Acute kidney injury superimposed on CKD: (2) Elevated lactic acid level: (3) Acute hyponatremia: (4) Adenocarcinoma of gallbladder: (5) History of DVT (deep vein thrombosis): (6) Anxiety: Plan Per previous hospitalist notes with addendum: Ms. 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 Patient found to have bowel obstruction. This bowel obstruction was management conservatively. Surgery signed off--stating that surgical intervention will only be pursued in an emergent situation. GI evaluated patient and spoke to Dr Morris, who placed stent. The concern of eroding tumor may be contributing to occult anemia. Patient to likely follow up with Dr. Morris. Patient remains lethargic Extensive work up for resp alkalosis and secondary metabolic alklosis ongoing -Metabolic likely 2/2 GI loses -Resp: r/o hyperammonemia, doesn't appear tachypneic/anxious Neurology consulted who notes this is likely multifactorial and best managed wi th supportive care From 06/17 to 06/18, patient with more alertness and ability to participate in exam. Attempting to eat more as able. Noted that liver enzymes are uptrending and given vague discomfort will order KUB to start to assess obstruction and will consider repeat CT ABD/P contingent on trend of LFTS. Liver enzymes have plateaued, appetite improving. EUGENE noted iso likely dehydration given intermittent po, which resolved with fluids. Pending continued improved and likely discharge to rehab v home based upon next 24 to 48 hours. Expressed to that patients medical condition is tenuous. That regardless of "where" she discharges it is hard to say when the recurrence of symptoms may come and if/when she may come back.. Expressed need for prompt Onc follow up to establish plan. #Acute toxic metabolic encephalopathy Biofire negative, UA negative MRI negative Ammonia 43 Neurology consulted: chronic leukoencephalopathy, cannot r/o neurotoxicity EEG pending read PT/OT ongoing Supportive care 06/22 Resolving Discontinue prochlorperazine Monitor closely 06/23 Oriented but mostly on the drowsy side Hopefully with initiation of PPN, Treatment of bowel obstruction, patient will continue to improve Monitor closely #Transaminitis #Adenocarcinoma of gallbladder Last FOLFOX treatment 05/[address] Ginny Olivera 06/08- patient's family requested 5FU reversal, but not warranted at this time per Oncology As above GI consult for further recs per General Surgery. CMP this am revealed liver enzymes elevated mildly Exam benign this am Trend CMP in am -Seems to have plateaued KUB seemingly stable compared to prior, and exam remains benign Scopolamine patch for nausea 06/21 Alk phos increased to 400s, monitor AST ALT stable Continue scopolamine patch 06/22 Alk phos continues to trend down Bilirubin, AST/ALT normal Small bowel, large bowel obstruction Developed abdominal pain yesterday, CT scan showing above General Surgery consulted N.p.o., IV fluids, NG tube Small bowel follow-through ordered Monitor closely 06/23 SBFT: Showing passage of contrast throughout the small intestine and colon, possible ileus NG tube in place, wall suction discontinued Continue to monitor Continue PPN, replace electrolytes #Acute respiratory alkalosis secondary metabolic alkalosis #Diarrhea Gi losses likely etiology of metabolic alkalosis Resp alkalosis -MRI negative for clear central cause -Ammonia 43 -No pain/anxiety contributing to tachypnea Given reduced freuqncy of stool and increased intake with hold further fiber given risk of obstruction CTM output C diff negative Encourage PO resolved #Large Bowel Obstruction CT adb/pelvis noting transition point suggestive of obstruction Follow up KUB noting persistence of bowel obstruction Pt intially NPO, IV fluids, IV antiemetics, IV pain meds General surgery consulted, appreciate recs -recommended GI consult--signed off no further recommendations non-op management -recommended oncology consult, ordered inpt and pt's outpt oncologist on board as well -Palliative care consult discontinued at request of Per surgery can advance diet given pt having BMs. Further advanced to solids, soft on 06/13 as per above #Chemotherapy induced Neutropenia #Lactic acidosis iso obstruction/dehydration Possible sepsis r/o Pt with progressing neutropenia, in the setting of recent chemotherapy Lactate initially 4.4 on admission ->normalized to 2.0 with fluids Chest XRAY with no acute infection UA unremarkable respiratory testing negative MRSA nares negative Blood Cx x1 set NGTD. 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 Pastor/Oncologist Dr Christie on 06/08, s/p neupogen 480 mcg subcu for neutropenia for 3 days Need prompt OP Onc follow up given patient's desire for pursuing further treatment 06/22 WBC stable #Acute on chronic Anemia Hgb <7 on 06/11 s/p transfusion 1U pRBCs Holding home eliquis at this time FOBT POSITIVE Continue to monitor H/H GI re-consulted on 06/13 - will see pt after Eliquis on hold for 48hrs on 06/14 -No endoscopic interventions planned continue Eliquis Hemoglobin today 6.8 Likely upper GI source, in light of NG tube, Eliquis use 1 unit packed RBCs ordered Monitor hemoglobin Continue Protonix IV twice daily Hold heparin subcu #EUGENE superimposed on CKD *resolved 2/2 decreased oral intake/possible infection following chemo tx 05/30 Creatinine 2.36 on admission (previously 1.7 eight days prior) Given 2L NSS in ED, continued maintenance fluid Nephrology consulted, appreciate recs Continue to monitor, improving Repeat BMP 06/22 crea back to normal #Generalized weakness #Hyponatremiaresolved #Hypernatremia Na 129 on admission Likely in setting of poor PO intake Noted improvement with fluids Nephrology consulted as above Na 135 #Hypokalemia #Hypocalcemia #Hypophosphatemia Replete as needed ionized calcium in am (corrected for albumin is normal) replacement underway #Malnutrition Likely in setting of above Electrophysiology Nurse Practitioner consult #H/o DVT Eliquis held for SBO, possible emergency procedures Heparin SC TID --> hold for anemia #HTN (hypertension) Continue atenolol #History of breast cancer S/p left partial mastectomy, XRT, 5 years of tamoxifen completed in August 2022 #Restless legs syndrome (RLS) Clonazepam HS PRN Diet: regular DVT Ppx: Eliquis Code status: FULL PCP: Loreta Dispo: pending Admission and Anticipated Discharge Date Admission Date: June 06, 2024 Results & Data Results & Data Vital Signs (Past 12 Hours) Vital Signs Temp Pulse Pulse Resp BP BP Pulse Ox 06/23/24 16:44 36.7 C 78 16 112/70 99 06/23/24 15:59 36.7 C 85 16 114/80 100 06/23/24 15:00 83 06/23/24 14:59 36.7 C 88 20 106/74 98 06/23/24 14:29 37 C 88 20 109/76 100 06/23/24 14:14 36.8 C 86 18 102/70 06/23/24 14:13 36.8 C 87 18 102/70 100 06/23/24 13:48 36.6 C 86 20 104/72 99 06/23/24 10:59 36.2 C L 88 18 104/75 100 06/23/24 07:31 67 06/23/24 07:24 36.4 C L 86 18 102/71 99 O2 Del Method 06/23/24 16:44 06/23/24 15:59 06/23/24 15:00 06/23/24 14:59 06/23/24 14:29 06/23/24 14:14 06/23/24 14:13 06/23/24 13:48 06/23/24 10:59 Room Air 06/23/24 07:31 06/23/24 07:24 Room Air
[2024-06-23 18:11] LABS: BUN Creatinine Ratio 38.4 (10-20); Calcium 7.7 mg/dl (8.6-10.3); Creatinine Clr Calc Pharmacy 48.2 ml/min; Est GFR (African American) 64.6 ml/min; Est GFR (Non-African American) 55.7 ml/min; Magnesium 2.1 mg/dl (1.7-2.4); Phosphorus 2.3 mg/dl (2.5-4.9); Potassium 4.7 mmol/L (3.5-5.1)
--- NOTE | 2024-06-24 08:29 | XRay Report ---
KUB HISTORY: Acute generalized abdominal pain eval bowel/gas pattern and passage of contrast COMPARISON: Small bowel follow-through 06/23/2024, CT 06/21/2024 FINDINGS: Gastrojejunostomy stent. Common bile duct stent. Dilated loops of small bowel are contrast filled measuring up to approximately 4.8 cm. Contrast also within the large bowel. No renal calculi. No ureteral calculi. No pneumoperitoneum or pneumatosis. No fracture. IMPRESSION: Dilated contrast-filled loops of bowel are redemonstrated suggestive of an ileus versus partial obstr uction. Follow-up recommended. ACT 112: Negative or not required by law. The above report was generated using voice recognition software. It may contain grammatical, syntax o r spelling errors. Electronically signed by: Meng Lester M.D. 06/24/2024 8:28 AM
[2024-06-24 09:05] LABS: Calcium 7.7 mg/dl (8.6-10.3); Creatinine Clr Calc Pharmacy 51.5 ml/min; Est GFR (African American) 69.7 ml/min; Est GFR (Non-African American) 60.1 ml/min; Magnesium 2.1 mg/dl (1.7-2.4); Phosphorus 2.7 mg/dl (2.5-4.9); Potassium 4.8 mmol/L (3.5-5.1)
[2024-06-24 09:37] LABS: Hemoglobin 9.2 g/dl (12.0-16.0); Mean Corpuscular Hemoglobin 32.7 pg (25.0-34.0); Mean Corpuscular Hgb Conc 32.9 g/dL (32.0-36.0); Mean Corpuscular Volume 99.6 fL (80.0-100.0); Nucleated RBC # (auto) 0.22 K/uL (0.00-0.12); Nucleated RBC % (auto) 1.5 %; Platelet Count 147 K/uL (130-400); RDW Coefficient of Variation 19.2 % (11.5-14.5); RDW Standard Deviation 69.1 fL (36.4-46.3); Red Blood Count 2.81 M/uL (4.20-5.40)
[2024-06-24 09:58] LABS: ALC (manual) 1.49 K/uL (1.2-3.4); ANC (manual) 10.58 K/uL (1.4-6.5); Anisocytosis Present; Lymphocytes # (manual) 1.49 K/uL (1.2-3.4); Lymphocytes % (manual) 10 %; Metamyelocytes % (manual) 4 %; Monocytes # (manual) 0.75 K/uL (0.11-0.59); Monocytes % (manual) 5 %; Myelocytes # (manual) 1.49 K/uL (0-0); Myelocytes % (manual) 10 %; Neutrophils # (manual) 10.58 K/uL (1.40-6.50); Neutrophils % (manual) 71 %; Polychromasia 1+
--- NOTE | 2024-06-24 11:47 | Surgery Progress Note ---
Date of Service June 24, 2024 Assessment & Plan (1) Bowel obstruction: (2) Adenocarcinoma of gallbladder: Plan 74-year-old woman with inoperable gallbladder cancer which is progressing. She has a partial large bowel obstruction due to the cancer. She continues to pass flatus and have some bowel movements. I again had a discussion with her and her concerning surgical interventions. The only option would be ileostomy, which would have its own risks and complications associated with it. I once again strongly urged the family to consider discussing palliative care options with the hospitalist, oncologist, and medical claims specialist. No surgical intervention unless the bowel obstruction becomes complete which would be an emergent situation. We will continue to follow. Admission and Anticipated Discharge Date Admission Date: June 06, 2024 Subjective No changes, continues to pass flatus. Had 2 bowel movements yesterday. Physical Exam Physical Exam: NAD, A&O x 3 Somnolent, sleeping AFVSS Abdomen: Soft, nontender Results & Data Vital Signs (Past 12 Hours) Vital Signs Temp Pulse Pulse Resp BP Pulse Ox O2 Del Method 06/24/24 08:34 36.9 C 87 17 112/78 98 Room Air 06/24/24 08:00 Room Air 06/24/24 07:00 84 06/24/24 03:13 36.6 C 85 18 100/72 100 Room Air Laboratory Results 06/24/24 06/24/24 06/23/24 Range/Units 08:28 03:14 18:35 WBC 14.90 H (4.8-10.8) K/ul RBC 2.81 L (4.20-5.40) M/uL Hgb 9.2 L (12.0-16.0) g/dl Hct 28.0 L (37.0-47.0) % MCV 99.6 (80.0-100.0) fL MCH 32.7 (25.0-34.0) pg MCHC 32.9 (32.0-36.0) g/dL RDW Std Deviation 69.1 H (36.4-46.3) fL RDW Coeff of Vicky 19.2 H (11.5-14.5) % Plt Count 147 (130-400) K/uL MPV 11.0 (9.4-12.4) fL Absolute Nucleated RBC 0.22 H (0.00-0.12) K/uL Nucleated RBC % (auto) 1.5 % Neutrophils % (Manual) 71 % Lymphocytes % (Manual) 10 % Monocytes % (Manual) 5 % Metamyelocytes % (Man) 4 % Myelocytes % (Man) 10 % Neutrophils # (Manual) 10.58 H (1.40-6.50) K/uL Total Absolute Neuts 10.58 H (1.4-6.5) K/uL Lymphocytes # (Manual) 1.49 (1.2-3.4) K/uL Total Abs Lymphocytes 1.49 (1.2-3.4) K/uL Monocytes # (Manual) 0.75 H (0.11-0.59) K/uL Metamyelocytes # (Man) 0.60 H (0-0) K/uL Myelocytes # (Manual) 1.49 H (0-0) K/uL Polychromasia 1+ Anisocytosis Present Sodium 134 L (136-145) mmol/L Potassium 4.8 (3.5-5.1) mmol/L Chloride 108 H (98-107) mmol/L Carbon Dioxide 20 L (21-32) mmol/L Anion Gap 6 (3-11) BUN 40 H (6-23) mg/dl Creatinine 0.93 (0.6-1.2) mg/dl Est Cr Clr Drug Dosing 51.5 ml/min Est GFR ( Amer) 69.7 ml/min Est GFR (Non-Af Amer) 60.1 ml/min BUN/Creatinine Ratio 43.0 H (10-20) Glucose 123 H (70-99(Fasting)) mg/dl POC Glucose 123 H 126 H (70-99) mg/dl Calcium 7.7 L (8.6-10.3) mg/dl Phosphorus 2.7 (2.5-4.9) mg/dl Magnesium 2.1 (1.7-2.4) mg/dl Blood Type Antibody Screen Crossmatch 06/23/24 06/23/24 06/23/24 Range/Units 17:28 12:17 07:13 WBC (4.8-10.8) K/ul RBC (4.20-5.40) M/uL Hgb (12.0-16.0) g/dl Hct (37.0-47.0) % MCV (80.0-100.0) fL MCH (25.0-34.0) pg MCHC (32.0-36.0) g/dL RDW Std Deviation (36.4-46.3) fL RDW Coeff of Vicky (11.5-14.5) % Plt Count (130-400) K/uL MPV (9.4-12.4) fL Absolute Nucleated RBC (0.00-0.12) K/uL Nucleated RBC % (auto) % Neutrophils % (Manual) % Lymphocytes % (Manual) % Monocytes % (Manual) % Metamyelocytes % (Man) % Myelocytes % (Man) % Neutrophils # (Manual) (1.40-6.50) K/uL Total Absolute Neuts (1.4-6.5) K/uL Lymphocytes # (Manual) (1.2-3.4) K/uL Total Abs Lymphocytes (1.2-3.4) K/uL Monocytes # (Manual) (0.11-0.59) K/uL Metamyelocytes # (Man) (0-0) K/uL Myelocytes # (Manual) (0-0) K/uL Polychromasia Anisocytosis Sodium 130 L (136-145) mmol/L Potassium 4.7 D (3.5-5.1) mmol/L Chloride 106 (98-107) mmol/L Carbon Dioxide 18 L (21-32) mmol/L Anion Gap 6 (3-11) BUN 38 H (6-23) mg/dl Creatinine 0.99 (0.6-1.2) mg/dl Est Cr Clr Drug Dosing 48.2 ml/min Est GFR ( Amer) 64.6 ml/min Est GFR (Non-Af Amer) 55.7 ml/min BUN/Creatinine Ratio 38.4 H (10-20) Glucose 143 H (70-99(Fasting)) mg/dl POC Glucose 184 H (70-99) mg/dl Calcium 7.7 L (8.6-10.3) mg/dl Phosphorus 2.3 L (2.5-4.9) mg/dl Magnesium 2.1 (1.7-2.4) mg/dl Blood Type O Positive Antibody Screen NEGATIVE Crossmatch See Detail
[2024-06-24] MEDS: AA 8%/D14W 1L 1,079 ML in Central TPN bag 0 ML IV SCH (16:13)
--- NOTE | 2024-06-24 17:08 | Hospitalist Progress Note ---
Date of Service June 24, 2024 Assessment & Plan (1) Acute kidney injury superimposed on CKD: (2) Elevated lactic acid level: (3) Acute hyponatremia: (4) Adenocarcinoma of gallbladder: (5) History of DVT (deep vein thrombosis): (6) Anxiety: Plan: (1) Acute kidney injury superimposed on CKD: (2) Elevated lactic acid level: (3) Acute hyponatremia: (4) Adenocarcinoma of gallbladder: (5) History of DVT (deep vein thrombosis): (6) Anxiety: Plan Per previous hospitalist notes with addendum: Ms. 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 Patient found to have bowel obstruction. This bowel obstruction was management conservatively. Surgery signed off--stating that surgical intervention will only be pursued in an emergent situation. GI evaluated patient and spoke to Dr Morris, who placed stent. The concern of eroding tumor may be contributing to occult anemia. Patient to likely follow up with Dr. Morris. Patient remains lethargic Extensive work up for resp alkalosis and secondary metabolic alklosis ongoing -Metabolic likely 2/2 GI loses -Resp: r/o hyperammonemia, doesn't appear tachypneic/anxious Neurology consulted who notes this is likely multifactorial and best managed with supportive care From 06/17 to 06/18, patient with more alertness and ability to participate in exam. Attempting to eat more as able. Noted that liver enzymes are uptrending and given vague discomfort will order KUB to start to assess obstruction and will consider repeat CT ABD/P contingent on trend of LFTS. Liver enzymes have plateaued, appetite improving. EUGENE noted iso likely dehydration given intermittent po, which resolved with fluids. Pending continued improved and likely discharge to rehab v home based upon next 24 to 48 hours. Expressed to that patients medical condition is tenuous. That regardless of "where" she discharges it is hard to say when the recurrence of symptoms may come and if/when she may come back.. Expressed need for prompt Onc follow up to establish plan. #Acute toxic metabolic encephalopathy Biofire negative, UA negative MRI negative Ammonia 43 Neurology consulted: chronic leukoencephalopathy, cannot r/o neurotoxicity EEG pending read PT/OT ongoing Supportive care 06/22 Resolving Discontinue prochlorperazine Monitor closely 06/23 Oriented but mostly on the drowsy side Hopefully with initiation of PPN, Treatment of bowel obstruction, patient will continue to improve Monitor closely 06/24 Somewhat more interactive today Continue to monitor #Transaminitis #Adenocarcinoma of gallbladder Last FOLFOX treatment 05/[address] Gross Continue Megace 06/08- patient's family requested 5FU reversal, but not warranted at this time per Oncology As above GI consult for further recs per General Surgery. CMP this am revealed liver enzymes elevated mildly Exam benign this am Trend CMP in am -Seems to have plateaued KUB seemingly stable compared to prior, and exam remains benign Scopolamine patch for nausea 06/21 Alk phos increased to 400s, monitor AST ALT stable Continue scopolamine patch 06/22 Alk phos continues to trend down Bilirubin, AST/ALT normal Small bowel, large bowel obstruction Developed abdominal pain yesterday, CT scan showing above General Surgery consulted N.p.o., IV fluids, NG tube Small bowel follow-through ordered Monitor closely 06/23 SBFT: Showing passage of contrast throughout the small intestine and colon, possible ileus NG tube in place, wall suction discontinued Continue to monitor Continue PPN, replace electrolytes 06/24 NG tube removed Clear liquid diet resumed General Surgery on board #Acute respiratory alkalosis secondary metabolic alkalosis #Diarrhea Gi losses likely etiology of metabolic alkalosis Resp alkalosis -MRI negative for clear central cause -Ammonia 43 -No pain/anxiety contributing to tachypnea Given reduced freuqncy of stool and increased intake with hold further fiber given risk of obstruction CTM output C diff negative Encourage PO resolved #Large Bowel Obstruction CT adb/pelvis noting transition point suggestive of obstruction Follow up KUB noting persistence of bowel obstruction Pt intially NPO, IV fluids, IV antiemetics, IV pain meds General surgery consulted, appreciate recs -recommended GI consult--signed off no further recommendations non-op management -recommended oncology consult, ordered inpt and pt's outpt oncologist on board as well -Palliative care consult discontinued at request of Per surgery can advance diet given pt having BMs. Further advanced to solids, soft on 06/13 as per above #Chemotherapy induced Neutropenia #Lactic acidosis iso obstruction/dehydration Possible sepsis r/o Pt with progressing neutropenia, in the setting of recent chemotherapy Lactate initially 4.4 on admission ->normalized to 2.0 with fluids Chest XRAY with no acute infection UA unremarkable respiratory testing negative MRSA nares negative Blood Cx x1 set NGTD. 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 Printing Equipment Mechanic/Oncologist Dr Christie on 06/08, s/p neupogen 480 mcg subcu for neutropenia for 3 days Need prompt OP Onc follow up given patient's desire for pursuing further treatment 06/22 WBC stable #Acute on chronic Anemia Hgb <7 on 06/11 s/p transfusion 1U pRBCs Holding home eliquis at this time FOBT POSITIVE Continue to monitor H/H GI re-consulted on 06/13 - will see pt after Eliquis on hold for 48hrs on 06/14 -No endoscopic interventions planned continue Eliquis Hemoglobin today 6.8 Likely upper GI source, in light of NG tube, Eliquis use 1 unit packed RBCs ordered Monitor hemoglobin Continue Protonix IV twice daily Hold heparin subcu 06/24 Hg increased to 9.2 #EUGENE superimposed on CKD *resolved 2/2 decreased oral intake/possible infection following chemo tx 05/30 Creatinine 2.36 on admission (previously 1.7 eight days prior) Given 2L NSS in ED, continued maintenance fluid Nephrology consulted, appreciate recs Continue to monitor, improving Repeat BMP 06/22 crea back to normal #Generalized weakness #Hyponatremiaresolved #Hypernatremia Na 129 on admission Likely in setting of poor PO intake Noted improvement with fluids Nephrology consulted as above Na 135 #Hypokalemia #Hypocalcemia #Hypophosphatemia Replete as needed ionized calcium in am (corrected for albumin is normal) replacement underway #Malnutrition Likely in setting of above Pump Servicer Helper consult #H/o DVT Eliquis held for SBO, possible emergency procedures Heparin SC TID --> hold for anemia #HTN (hypertension) Continue atenolol #History of breast cancer S/p left partial mastectomy, XRT, 5 years of tamoxifen completed in August 2022 #Restless legs syndrome (RLS) Clonazepam HS PRN Diet: regular DVT Ppx: Eliquis, Heparin on hold for anemia Code status: FULL PCP: Loreta Dispo: pending Admission and Anticipated Discharge Date Admission Date: June 06, 2024 Subjective Seen resting in bed, sleeping but easily awakened Seems to be more conversant, interactive today than yesterday Patient's Rich at the bedside visiting States she had intermittent abdominal discomfort and nausea this morning but overall seems to be improving Had a few sips of broth for breakfast No other new symptoms Review of Systems Review of Systems: all noted and negative except for above Physical Exam Physical Exam: General- oriented x 3, not in distress, speaks in sentences with no effort or accessory muscle use Eyes- anicteric Neck- no JVD Lungs- clear breath sounds bilaterally, no rales/wheezes Heart- normal rate, regular rhythm; no murmurs Abdomen- minimal bowel sounds, nondistended, soft, no tenderness Extremities- no pretibial edema, no calf tenderness Neuro- somewhat sleepy, oriented x 3; no new gross focal neurologic deficits Skin- warm & dry Results & Data Results & Data Vital Signs (Past 12 Hours) Vital Signs Temp Pulse Pulse Resp BP Pulse Ox O2 Del Method 06/24/24 16:04 36.5 C 88 17 107/76 98 Room Air 06/24/24 14:21 90 06/24/24 11:49 36.9 C 89 17 92/66 L 99 Room Air 06/24/24 08:34 36.9 C 87 17 112/78 98 Room Air 06/24/24 08:00 Room Air 06/24/24 07:00 84 all noted and reviewed including below
[2024-06-24] MEDS: LACTATED RINGER'S 1,000 ML IV ONE (21:54)
--- NOTE | 2024-06-24 23:19 | Communication Note ---
Date of Service: June 24, 2024 Patient noted to be lethargic as per RN. No headache complaints. Increasingly confused throughout the day as per dayshift report. UA WBC esterase CT head AP Encephalopathy Complicated UTI Scopolamine Rx contributory Urine Deborah ROUSSEAU Hold scopolamine for now
[2024-06-24 23:30] LABS: Appearance Urine Turbid (Clear); Bacteria Urine Automated None Seen (None Seen); Bilirubin Urine Negative (Negative); Blood Urine Trace (Negative); Cast Urine Automated >20 /lpf (0-2); Color Urine Yellow; Epithelial Cell Urine Auto 0-2 /hpf (0-2); Glucose Urine UA Negative (Negative); Ketones Urine Negative (Negative); Leukocyte Esterase Urine 3+ (Negative); Nitrite Urine Negative (Negative); Protein Urine 1+ (Negative); RBC Urine Automated >20 /hpf (0-2); Specific Gravity Urine 1.018 (1.000-1.030); Urobilinogen Urine Negative (Negative); WBC Urine Automated >50 /hpf (0-5)
[2024-06-25] MEDS: PIPERACILLIN/TAZOBACTAM 4.5 GM/100 ML BAG IV ONE (00:53)
[2024-06-25] MEDS ORDERED: GLUCAGON FOR INJ 1 MG VIAL SQ PRN (01:11)
[2024-06-25] MEDS ORDERED: DEXTROSE 50% 50 ML SYRINGE IV PRN (01:11)
[2024-06-25] MEDS ORDERED: CARBOHYDRATES FOR HYPOGLYCEMIA PO PRN (01:11)
[2024-06-25] MEDS ORDERED: GLUCOSE 10 TAB/TUBE PO PRN (01:11)
[2024-06-25] MEDS ORDERED: GLUCOSE 40% GEL 15 GM TUBE PO PRN (01:11)
--- NOTE | 2024-06-25 01:48 | CT Scan Report ---
Exam(s): CT HEAD Without Contrast EXAM: CT Head Without Intravenous Contrast CLINICAL HISTORY: Reason for exam: lethargy, eliquis. TECHNIQUE: Axial computed tomography images of the head/brain without intravenous contrast. Automated exposure control was utilized for the study. A dose lowering technique was utilized adhering to the principles of ALARA. COMPARISON: Prior brain MRI from June 16, 2024. FINDINGS: Brain: Unremarkable. No hemorrhage. No significant white matter disease. No edema. Ventricles: Moderate ventriculomegaly. Bones/joints: Unremarkable. No acute fracture. Soft tissues: Unremarkable. Sinuses: Unremarkable as visualized. No acute sinusitis. Mastoid air cells: Unremarkable as visualized. No mastoid effusion. IMPRESSION: No evidence of acute intracranial pathology. Electronically signed by: Lory Chairez MD 06/25/24 01:47 AM
[2024-06-25] MEDS: PIPERACILLIN/TAZOBACTAM 4.5 GM/100 ML BAG IV SCH (06:38)
[2024-06-25] MEDS: SODIUM CHLORIDE 0.9% 500 ML IV ONE ×3 (08:00→23:25)
[2024-06-25] MEDS: INSULIN ASPART PER UNIT CHARGE SC SCH (08:23)
[2024-06-25 08:24] LABS: Base Excess VBG -3.9 mEq/L; HCO3 VBG 20 mmol/L; Oxygen Saturation VBG 73.6 %; PCO2 VBG 28 mmHg (38-50); PO2 VBG 42 mmHg; pH VBG 7.45 (7.36-7.41)
[2024-06-25 08:33] LABS: Hematocrit (blood only) 21.1 % (37.0-47.0); Mean Corpuscular Hemoglobin 32.9 pg (25.0-34.0); Mean Corpuscular Hgb Conc 32.7 g/dL (32.0-36.0); Mean Corpuscular Volume 100.5 fL (80.0-100.0); Mean Platelet Volume 10.5 fL (9.4-12.4); Nucleated RBC # (auto) 0.11 K/uL (0.00-0.12); Nucleated RBC % (auto) 0.8 %; Platelet Count 89 K/uL (130-400); RDW Standard Deviation 69.3 fL (36.4-46.3); White Blood Count 14.18 K/ul (4.8-10.8)
[2024-06-25 08:49] LABS: Estimated Average Glucose 105 mg/dl; Hemoglobin A1C 5.3 % (4.5-5.6)
[2024-06-25 09:03] LABS: Albumin Level 1.7 gm/dl (3.4-5.0); BUN Creatinine Ratio 40.5 (10-20); Bilirubin Direct 0.5 mg/dl (0-0.2); Calcium 6.9 mg/dl (8.6-10.3); Est GFR (African American) 78.8 ml/min; Magnesium 1.7 mg/dl (1.7-2.4); Phosphorus 2.1 mg/dl (2.5-4.9); Potassium 3.7 mmol/L (3.5-5.1); Thyroid Stimulating Hormone 3.724 uIu/ml (0.300-4.500); Total Protein 4.1 gm/dl (6.0-8.3)
[2024-06-25 09:05] LABS: ALC (manual) 1.56 K/uL (1.2-3.4); Dohle Bodies 1+; Lymphocytes # (manual) 1.56 K/uL (1.2-3.4); Lymphocytes % (manual) 11 %; Metamyelocytes # (manual) 0.85 K/uL (0-0); Metamyelocytes % (manual) 6 %; Monocytes # (manual) 0.14 K/uL (0.11-0.59); Monocytes % (manual) 1 %; Myelocytes # (manual) 0.43 K/uL (0-0); Myelocytes % (manual) 3 %; Neutrophils % (manual) 79 %; Polychromasia 1+; Tear Drop Cells 1+; Toxic Vacuolation 1+
[2024-06-25 09:21] LABS: Hemoglobin 6.9 g/dl (12.0-16.0)
--- NOTE | 2024-06-25 10:40 | Surgery Progress Note ---
Date of Service June 25, 2024 Assessment & Plan (1) Bowel obstruction: (2) Adenocarcinoma of gallbladder: Plan 74-year-old woman with inoperable gallbladder cancer which is progressing. She has a partial large bowel obstruction due to the cancer. She continues to pass flatus and have some bowel movements. I again had a discussion with her and her concerning surgical interventions. The only option would be ileostomy, which would have its own risks and complications associated with it. I once again strongly urged the family to consider discussing palliative care options with the hospitalist, oncologist, and ingredient specialist. No surgical intervention unless the bowel obstruction becomes complete which would be an emergent situation. We will continue to follow. 06/25/2024 - no changes in recommendations for today. Her hemoglobin is down to 6.8. This most likely represents continued bleeding of the eroding tumor. Will defer to medical management. Admission and Anticipated Discharge Date Admission Date: June 06, 2024 Subjective No changes today. She did have a bowel movement yesterday according to her . She continues to pass flatus. Physical Exam Physical Exam: NAD, A&O x 3 Somnolent, sleeping AFVSS Abdomen: Soft, nontender Results & Data Vital Signs (Past 12 Hours) Vital Signs Temp Pulse Resp BP Pulse Ox O2 Del Method 06/25/24 09:21 Room Air 06/25/24 07:40 103 H 93/66 L 100 Room Air 06/25/24 07:32 37.5 C 104 H 16 91/56 L 99 Room Air 06/25/24 03:28 37.1 C 110 H 18 100/64 99 Room Air 06/24/24 23:16 36.9 C 100 H 17 111/77 100 Room Air Laboratory Results 06/25/24 06/25/24 06/25/24 Range/Units 08:17 07:08 01:04 WBC 14.18 H (4.8-10.8) K/ul RBC 2.10 L (4.20-5.40) M/uL Hgb 6.9 L* (12.0-16.0) g/dl Hct 21.1 L (37.0-47.0) % MCV 100.5 H (80.0-100.0) fL MCH 32.9 (25.0-34.0) pg MCHC 32.7 (32.0-36.0) g/dL RDW Std Deviation 69.3 H (36.4-46.3) fL RDW Coeff of Vicky 19.0 H (11.5-14.5) % Plt Count 89 L (130-400) K/uL MPV 10.5 (9.4-12.4) fL Absolute Nucleated RBC 0.11 (0.00-0.12) K/uL Nucleated RBC % (auto) 0.8 % Neutrophils % (Manual) 79 % Lymphocytes % (Manual) 11 % Monocytes % (Manual) 1 % Metamyelocytes % (Man) 6 % Myelocytes % (Man) 3 % Neutrophils # (Manual) 11.20 H (1.40-6.50) K/uL Total Absolute Neuts 11.20 H (1.4-6.5) K/uL Lymphocytes # (Manual) 1.56 (1.2-3.4) K/uL Total Abs Lymphocytes 1.56 (1.2-3.4) K/uL Monocytes # (Manual) 0.14 (0.11-0.59) K/uL Metamyelocytes # (Man) 0.85 H (0-0) K/uL Myelocytes # (Manual) 0.43 H (0-0) K/uL Toxic Vacuolation 1+ Dohle Bodies 1+ Polychromasia 1+ Tear Drop Cells 1+ VBG pH 7.45 H (7.36-7.41) VBG pCO2 28 L (38-50) mmHg VBG pO2 42 mmHg VBG HCO3 20 mmol/L VBG O2 Saturation 73.6 % VBG Base Excess -3.9 mEq/L Sodium 135 L (136-145) mmol/L Potassium 3.7 D (3.5-5.1) mmol/L Chloride 109 H (98-107) mmol/L Carbon Dioxide 20 L (21-32) mmol/L Anion Gap 6 (3-11) BUN 34 H (6-23) mg/dl Creatinine 0.84 (0.6-1.2) mg/dl Est Cr Clr Drug Dosing 57.0 ml/min Est GFR ( Amer) 78.8 ml/min Est GFR (Non-Af Amer) 68.0 ml/min BUN/Creatinine Ratio 40.5 H (10-20) Glucose 224 H (70-99(Fasting)) mg/dl POC Glucose 200 H 174 H (70-99) mg/dl Estimat Average Glucose 105 mg/dl Hemoglobin A1c 5.3 (4.5-5.6) % Calcium 6.9 L (8.6-10.3) mg/dl Phosphorus 2.1 L (2.5-4.9) mg/dl Magnesium 1.7 (1.7-2.4) mg/dl Total Bilirubin 1.0 (0.2-1.0) mg/dl Direct Bilirubin 0.5 H (0-0.2) mg/dl AST 24 (13-39) U/L ALT 26 (7-52) U/L Alkaline Phosphatase 227 H (34-104) U/L Ammonia (18-72) umol/L Total Protein 4.1 L (6.0-8.3) gm/dl Albumin 1.7 L (3.4-5.0) gm/dl TSH 3.724 (0.300-4.500) uIu/ml Cortisol AM Sample 16.75 (6.2-22.6) mcg/dl Urine Color Urine Appearance (Clear) Urine pH (4.5-7.5) Ur Specific [place] (1.000-1.030) Urine Protein (Negative) Urine Glucose (UA) (Negative) Urine Ketones (Negative) Urine Blood (Negative) Urine Nitrite (Negative) Urine Bilirubin (Negative) Urine Urobilinogen (Negative) Ur Leukocyte Esterase (Negative) Urine WBC (Auto) (0-5) /hpf Urine RBC (Auto) (0-2) /hpf U Hyaline Cast (Auto) (0-2) /lpf U Epithel Cells (Auto) (0-2) /hpf Urine Bacteria (Auto) (None Seen) Urine Yeast (None Prsent) 06/25/24 06/24/24 06/24/24 Range/Units 00:47 22:14 18:08 WBC (4.8-10.8) K/ul RBC (4.20-5.40) M/uL Hgb (12.0-16.0) g/dl Hct (37.0-47.0) % MCV (80.0-100.0) fL MCH (25.0-34.0) pg MCHC (32.0-36.0) g/dL RDW Std Deviation (36.4-46.3) fL RDW Coeff of Vicky (11.5-14.5) % Plt Count (130-400) K/uL MPV (9.4-12.4) fL Absolute Nucleated RBC (0.00-0.12) K/uL Nucleated RBC % (auto) % Neutrophils % (Manual) % Lymphocytes % (Manual) % Monocytes % (Manual) % Metamyelocytes % (Man) % Myelocytes % (Man) % Neutrophils # (Manual) (1.40-6.50) K/uL Total Absolute Neuts (1.4-6.5) K/uL Lymphocytes # (Manual) (1.2-3.4) K/uL Total Abs Lymphocytes (1.2-3.4) K/uL Monocytes # (Manual) (0.11-0.59) K/uL Metamyelocytes # (Man) (0-0) K/uL Myelocytes # (Manual) (0-0) K/uL Toxic Vacuolation Dohle Bodies Polychromasia Tear Drop Cells VBG pH (7.36-7.41) VBG pCO2 (38-50) mmHg VBG pO2 mmHg VBG HCO3 mmol/L VBG O2 Saturation % VBG Base Excess mEq/L Sodium (136-145) mmol/L Potassium (3.5-5.1) mmol/L Chloride (98-107) mmol/L Carbon Dioxide (21-32) mmol/L Anion Gap (3-11) BUN (6-23) mg/dl Creatinine (0.6-1.2) mg/dl Est Cr Clr Drug Dosing ml/min Est GFR ( Amer) ml/min Est GFR (Non-Af Amer) ml/min BUN/Creatinine Ratio (10-20) Glucose (70-99(Fasting)) mg/dl POC Glucose 134 H (70-99) mg/dl Estimat Average Glucose mg/dl Hemoglobin A1c (4.5-5.6) % Calcium (8.6-10.3) mg/dl Phosphorus (2.5-4.9) mg/dl Magnesium (1.7-2.4) mg/dl Total Bilirubin (0.2-1.0) mg/dl Direct Bilirubin (0-0.2) mg/dl AST (13-39) U/L ALT (7-52) U/L Alkaline Phosphatase (34-104) U/L Ammonia 26.0 (18-72) umol/L Total Protein (6.0-8.3) gm/dl Albumin (3.4-5.0) gm/dl TSH (0.300-4.500) uIu/ml Cortisol AM Sample (6.2-22.6) mcg/dl Urine Color Yellow Urine Appearance Turbid A (Clear) Urine pH 5.0 (4.5-7.5) Ur Specific [place] 1.018 (1.000-1.030) Urine Protein 1+ H (Negative) Urine Glucose (UA) Negative (Negative) Urine Ketones Negative (Negative) Urine Blood Trace H (Negative) Urine Nitrite Negative (Negative) Urine Bilirubin Negative (Negative) Urine Urobilinogen Negative (Negative) Ur Leukocyte Esterase 3+ H (Negative) Urine WBC (Auto) >50 H (0-5) /hpf Urine RBC (Auto) >20 H (0-2) /hpf U Hyaline Cast (Auto) >20 H (0-2) /lpf U Epithel Cells (Auto) 0-2 (0-2) /hpf Urine Bacteria (Auto) None Seen (None Seen) Urine Yeast Present A (None Prsent) 06/24/24 Range/Units 12:16 WBC (4.8-10.8) K/ul RBC (4.20-5.40) M/uL Hgb (12.0-16.0) g/dl Hct (37.0-47.0) % MCV (80.0-100.0) fL MCH (25.0-34.0) pg MCHC (32.0-36.0) g/dL RDW Std Deviation (36.4-46.3) fL RDW Coeff of Vicky (11.5-14.5) % Plt Count (130-400) K/uL MPV (9.4-12.4) fL Absolute Nucleated RBC (0.00-0.12) K/uL Nucleated RBC % (auto) % Neutrophils % (Manual) % Lymphocytes % (Manual) % Monocytes % (Manual) % Metamyelocytes % (Man) % Myelocytes % (Man) % Neutrophils # (Manual) (1.40-6.50) K/uL Total Absolute Neuts (1.4-6.5) K/uL Lymphocytes # (Manual) (1.2-3.4) K/uL Total Abs Lymphocytes (1.2-3.4) K/uL Monocytes # (Manual) (0.11-0.59) K/uL Metamyelocytes # (Man) (0-0) K/uL Myelocytes # (Manual) (0-0) K/uL Toxic Vacuolation Dohle Bodies Polychromasia Tear Drop Cells VBG pH (7.36-7.41) VBG pCO2 (38-50) mmHg VBG pO2 mmHg VBG HCO3 mmol/L VBG O2 Saturation % VBG Base Excess mEq/L Sodium (136-145) mmol/L Potassium (3.5-5.1) mmol/L Chloride (98-107) mmol/L Carbon Dioxide (21-32) mmol/L Anion Gap (3-11) BUN (6-23) mg/dl Creatinine (0.6-1.2) mg/dl Est Cr Clr Drug Dosing ml/min Est GFR ( Amer) ml/min Est GFR (Non-Af Amer) ml/min BUN/Creatinine Ratio (10-20) Glucose (70-99(Fasting)) mg/dl POC Glucose 126 H (70-99) mg/dl Estimat Average Glucose mg/dl Hemoglobin A1c (4.5-5.6) % Calcium (8.6-10.3) mg/dl Phosphorus (2.5-4.9) mg/dl Magnesium (1.7-2.4) mg/dl Total Bilirubin (0.2-1.0) mg/dl Direct Bilirubin (0-0.2) mg/dl AST (13-39) U/L ALT (7-52) U/L Alkaline Phosphatase (34-104) U/L Ammonia (18-72) umol/L Total Protein (6.0-8.3) gm/dl Albumin (3.4-5.0) gm/dl TSH (0.300-4.500) uIu/ml Cortisol AM Sample (6.2-22.6) mcg/dl Urine Color Urine Appearance (Clear) Urine pH (4.5-7.5) Ur Specific [place] (1.000-1.030) Urine Protein (Negative) Urine Glucose (UA) (Negative) Urine Ketones (Negative) Urine Blood (Negative) Urine Nitrite (Negative) Urine Bilirubin (Negative) Urine Urobilinogen (Negative) Ur Leukocyte Esterase (Negative) Urine WBC (Auto) (0-5) /hpf Urine RBC (Auto) (0-2) /hpf U Hyaline Cast (Auto) (0-2) /lpf U Epithel Cells (Auto) (0-2) /hpf Urine Bacteria (Auto) (None Seen) Urine Yeast (None Prsent)
[2024-06-25] MEDS: MAGNESIUM SULFATE / D5W 1 GM/100 ML BAG IV ONE (11:04)
[2024-06-25] MEDS: POTASSIUM PHOSPHATE 15 MMOL in SODIUM CHLORIDE 0.9% 250 ML IV ONE (11:04)
[2024-06-25 14:31] LABS: Hematocrit (blood only) 21.7 % (37.0-47.0); Hemoglobin 7.3 g/dl (12.0-16.0); Mean Corpuscular Hemoglobin 33.2 pg (25.0-34.0); Mean Corpuscular Hgb Conc 33.6 g/dL (32.0-36.0); Mean Corpuscular Volume 98.6 fL (80.0-100.0); Mean Platelet Volume 10.1 fL (9.4-12.4); Nucleated RBC # (auto) 0.11 K/uL (0.00-0.12); Nucleated RBC % (auto) 0.8 %; Platelet Count 106 K/uL (130-400); RDW Standard Deviation 67.4 fL (36.4-46.3); White Blood Count 13.28 K/ul (4.8-10.8)
[2024-06-25 15:02] LABS: ALC (manual) 1.06 K/uL (1.2-3.4); ANC (manual) 10.09 K/uL (1.4-6.5); Dohle Bodies 1+; Lymphocytes # (manual) 1.06 K/uL (1.2-3.4); Lymphocytes % (manual) 8 %; Metamyelocytes % (manual) 3 %; Monocytes # (manual) 1.73 K/uL (0.11-0.59); Monocytes % (manual) 13 %; Neutrophils # (manual) 10.09 K/uL (1.40-6.50); Neutrophils % (manual) 76 %; Polychromasia 1+
[2024-06-25] MEDS: CENTRAL TPN IV SCH (15:22)
[2024-06-25] MEDS: [UNRECOGNIZED DRUG - OTHER] IV SCH (15:22)
--- NOTE | 2024-06-25 17:51 | Hospitalist Progress Note ---
Date of Service June 25, 2024 Assessment & Plan (1) Acute kidney injury superimposed on CKD: (2) Elevated lactic acid level: (3) Acute hyponatremia: (4) Adenocarcinoma of gallbladder: (5) History of DVT (deep vein thrombosis): (6) Anxiety: Plan: (1) Acute kidney injury superimposed on CKD: (2) Elevated lactic acid level: (3) Acute hyponatremia: (4) Adenocarcinoma of gallbladder: (5) History of DVT (deep vein thrombosis): (6) Anxiety: Plan Per previous hospitalist notes with addendum: Ms. 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 Patient found to have bowel obstruction. This bowel obstruction was management conservatively. Surgery signed off--stating that surgical intervention will only be pursued in an emergent situation. GI evaluated patient and spoke to Dr Morris, who placed stent. The concern of eroding tumor may be contributing to occult anemia. Patient to likely follow up with Dr. Morris. Patient remains lethargic Extensive work up for resp alkalosis and secondary metabolic alklosis ongoing -Metabolic likely 2/2 GI loses -Resp: r/o hyperammonemia, doesn't appear tachypneic/anxious Neurology consulted who notes this is likely multifactorial and best managed with supportive care From 06/17 to 06/18, patient with more alertness and ability to participate in exam. Attempting to eat more as able. Noted that liver enzymes are uptrending and given vague discomfort will order KUB to start to assess obstruction and will consider repeat CT ABD/P contingent on trend of LFTS. Liver enzymes have plateaued, appetite improving. EUGENE noted iso likely dehydration given intermittent po, which resolved with fluids. Pending continued improved and likely discharge to rehab v home based upon next 24 to 48 hours. Expressed to that patients medical condition is tenuous. That regardless of "where" she discharges it is hard to say when the recurrence of symptoms may come and if/when she may come back.. Expressed need for prompt Onc follow up to establish plan. #Acute toxic metabolic encephalopathy Biofire negative, UA negative MRI negative Ammonia 43 Neurology consulted: chronic leukoencephalopathy, cannot r/o neurotoxicity EEG pending read PT/OT ongoing Supportive care 06/22 Resolving Discontinue prochlorperazine Monitor closely 06/23 Oriented but mostly on the drowsy side Hopefully with initiation of PPN, Treatment of bowel obstruction, patient will continue to improve Monitor closely 06/24 Somewhat more interactive today Continue to monitor 06/25 Patient's lethargy progressed overnight CT head: No acute process Ammonia level, VBG, TSH, cortisol unremarkable Secondary to underlying UTI? Rule out bacteremia Follow urine and blood cultures Continue IV Zosyn #Transaminitis #Adenocarcinoma of gallbladder Last FOLFOX treatment 05/[address] Gross Continue Megace 06/08- patient's family requested 5FU reversal, but not warranted at this time per Oncology As above GI consult for further recs per General Surgery. CMP this am revealed liver enzymes elevated mildly Exam benign this am Trend CMP in am -Seems to have plateaued KUB seemingly stable compared to prior, and exam remains benign Scopolamine patch for nausea 06/21 Alk phos increased to 400s, monitor AST ALT stable Continue scopolamine patch 06/22 Alk phos continues to trend down Bilirubin, AST/ALT normal Small bowel, large bowel obstruction Developed abdominal pain yesterday, CT scan showing above General Surgery consulted N.p.o., IV fluids, NG tube Small bowel follow-through ordered Monitor closely 06/23 SBFT: Showing passage of contrast throughout the small intestine and colon, possible ileus NG tube in place, wall suction discontinued Continue to monitor Continue PPN, replace electrolytes 06/24 NG tube removed Clear liquid diet resumed General Surgery on board 06/25 No abdominal pain, nausea vomiting Requested for solid food, but only had 2 bites of peaches Monitor closely #Acute respiratory alkalosis secondary metabolic alkalosis #Diarrhea Gi losses likely etiology of metabolic alkalosis Resp alkalosis -MRI negative for clear central cause -Ammonia 43 -No pain/anxiety contributing to tachypnea Given reduced freuqncy of stool and increased intake with hold further fiber given risk of obstruction CTM output C diff negative Encourage PO resolved #Large Bowel Obstruction CT adb/pelvis noting transition point suggestive of obstruction Follow up KUB noting persistence of bowel obstruction Pt intially NPO, IV fluids, IV antiemetics, IV pain meds General surgery consulted, appreciate recs -recommended GI consult--signed off no further recommendations non-op management -recommended oncology consult, ordered inpt and pt's outpt oncologist on board as well -Palliative care consult discontinued at request of Per surgery can advance diet given pt having BMs. Further advanced to solids, soft on 06/13 as per above #Chemotherapy induced Neutropenia #Lactic acidosis iso obstruction/dehydration Possible sepsis r/o Pt with progressing neutropenia, in the setting of recent chemotherapy Lactate initially 4.4 on admission ->normalized to 2.0 with fluids Chest XRAY with no acute infection UA unremarkable respiratory testing negative MRSA nares negative Blood Cx x1 set NGTD. 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 [employer] Subcontractor/Oncologist Dr Christie on 06/08, s/p neupogen 480 mcg subcu for neutropenia for 3 days Need prompt OP Onc follow up given patient's desire for pursuing further treatment 06/22 WBC stable #Acute on chronic Anemia Hgb <7 on 06/11 s/p transfusion 1U pRBCs Holding home eliquis at this time FOBT POSITIVE Continue to monitor H/H GI re-consulted on 06/13 - will see pt after Eliquis on hold for 48hrs on 06/14 -No endoscopic interventions planned continue Eliquis Hemoglobin today 6.8 Likely upper GI source, in light of NG tube, Eliquis use 1 unit packed RBCs ordered Monitor hemoglobin Continue Protonix IV twice daily Hold heparin subcu 06/24 Hg increased to 9.2 06/25 Hemoglobin 7.3 No overt signs of bleeding at this point Continue to monitor closely #EUGENE superimposed on CKD *resolved 2/2 decreased oral intake/possible infection following chemo tx 05/30 Creatinine 2.36 on admission (previously 1.7 eight days prior) Given 2L NSS in ED, continued maintenance fluid Nephrology consulted, appreciate recs Continue to monitor, improving Repeat BMP 06/22 crea back to normal #Generalized weakness #Hyponatremiaresolved #Hypernatremia Na 129 on admission Likely in setting of poor PO intake Noted improvement with fluids Nephrology consulted as above Na 135 #Hypokalemia #Hypocalcemia #Hypophosphatemia Replete as needed ionized calcium in am (corrected for albumin is normal) replacement underway #Malnutrition Likely in setting of above Forest [employer] consult #H/o DVT Eliquis held for SBO, possible emergency procedures Heparin SC TID --> hold for anemia #HTN (hypertension) Continue atenolol #History of breast cancer S/p left partial mastectomy, XRT, 5 years of tamoxifen completed in August 2022 #Restless legs syndrome (RLS) Clonazepam HS PRN Diet: regular DVT Ppx: Eliquis, Heparin on hold for anemia Code status: FULL PCP: Loreta Dispo: pending Admission and Anticipated Discharge Date Admission Date: June 06, 2024 Subjective Events overnight noted Noted to be more lethargic, found to have possible UTI, Deborah started Seen resting in bed, mostly sleeping, states she feels okay but feels drowsy Denies abdominal pain, nausea No other new symptoms Patient's Toño at bedside Review of Systems Review of Systems: all noted and negative except for above Physical Exam Physical Exam: General- oriented x 2, not in distress, speaks in sentences with no effort or accessory muscle use Very drowsy Eyes- anicteric Neck- no JVD Lungs- clear breath sounds bilaterally, no rales/wheezes Heart- normal rate, regular rhythm; no murmurs Abdomen- normal bowel sounds, nondistended, soft, nontender Extremities- no pretibial edema, no calf tenderness Neuro- Drowsy but no new gross focal neurologic deficits Skin- warm & dry Results & Data Results & Data Vital Signs (Past 12 Hours) Vital Signs Temp Pulse Pulse Resp BP Pulse Ox O2 Del Method 06/25/24 15:50 37 C 93 H 15 98/67 L 98 Room Air 06/25/24 15:45 93 H 06/25/24 12:02 105 H 06/25/24 10:53 37.1 C 98 H 19 94/65 L 95 Room Air 06/25/24 09:21 Room Air 06/25/24 07:40 103 H 93/66 L 100 Room Air 06/25/24 07:32 37.5 C 104 H 16 91/56 L 99 Room Air all noted and reviewed including below
[2024-06-25 19:12] LABS: BUN Creatinine Ratio 39.1 (10-20); Calcium 7.3 mg/dl (8.6-10.3); Est GFR (African American) 75.5 ml/min; Est GFR (Non-African American) 65.2 ml/min; Phosphorus 3.4 mg/dl (2.5-4.9); Potassium 4.3 mmol/L (3.5-5.1)
[2024-06-26 06:55] LABS: Hemoglobin 6.9 g/dl (12.0-16.0); Mean Corpuscular Hemoglobin 33.3 pg (25.0-34.0); Mean Corpuscular Hgb Conc 32.9 g/dL (32.0-36.0); Mean Corpuscular Volume 101.4 fL (80.0-100.0); Mean Platelet Volume 10.6 fL (9.4-12.4); Nucleated RBC # (auto) 0.04 K/uL (0.00-0.12); Nucleated RBC % (auto) 0.3 %; Platelet Count 94 K/uL (130-400); RDW Coefficient of Variation 19.5 % (11.5-14.5); RDW Standard Deviation 71.7 fL (36.4-46.3); Red Blood Count 2.07 M/uL (4.20-5.40); White Blood Count 11.98 K/ul (4.8-10.8)
[2024-06-26 07:02] LABS: Calcium 7.3 mg/dl (8.6-10.3); Magnesium 1.8 mg/dl (1.7-2.4); Potassium 4.1 mmol/L (3.5-5.1)
[2024-06-26 07:06] LABS: Anisocytosis Present; Basophils # (auto) 0.02 K/uL (0.00-0.20); Basophils % (auto) 0.2 %; Eosinophils # (auto) 0.02 K/uL (0.00-0.50); Eosinophils % (auto) 0.2 %; Immature Granulocytes # (auto) 1.08 K/uL (0.01-0.20); Lymphocytes # (auto) 1.24 K/uL (1.20-3.40); Lymphocytes % (auto) 10.4 %; Macrocytosis Present; Monocytes # (auto) 1.22 K/uL (0.11-0.59); Monocytes % (auto) 10.2 %; Polychromasia 1+; Tear Drop Cells 1+
[2024-06-26 07:08] LABS: BUN Creatinine Ratio 37.6 (10-20); Creatinine Clr Calc Pharmacy 56.3 ml/min; Est GFR (African American) 77.7 ml/min
--- NOTE | 2024-06-26 13:07 | Communication Note ---
Date of Service: June 26, 2024 Patient not examined, chart reviewed. Patient had bowel function throughout weekend. Small bowel follow through with contrast on 06/2024 showed contrast in colon at 30 minutes without evidence of any obstruction. No indication for surgical intervention. Our services signing off.
--- NOTE | 2024-06-26 15:33 | Neurology Consultation ---
Date of Consultation June 26, 2024 Assessment & Plan (1) Lethargy: Continue to monitor closely- monitor for s/s of infection noting has undergone chemo therapy Continue to monitor for s/s of seizure Utilize benzodiazepines emergently for clinical seizure like activity Continue current therapies Continue to monitor renal and hepatic function, keep euvolemic VTE prophylaxis if not fully anticoagulated Telehealth Consultation Telehealth Information Telehealth Information: I performed this visit using a real-time telehealth connection between my location and the patients location ([facility]). After connecting through interactive tele-video, patient was identified by name and date of and/or wristband check.Patient (or authorized healthcare open claims representative) was informed that this was a telemedicine visit and it was being conducted confidentially over secure lines. My office door was closed and no one else was present in the room with me.Patient (or authorized healthcare open claims representative) provided consent to proceed with the visit, expressed an understanding of privacy and security of the telemedicine visit, and gave permission to have a hospital open claims representative in the room in order to assist with the visit and to conduct portions of the visit, as needed. I informed the patient (or authorized healthcare open claims representative) that I reviewed their record and presented the opportunity for them to ask any questions regarding the visit today. The patient agreed to participate. History of Present Illness Reason for Consultation: Lethargy Requesting Physician: Dr. Jones Attending Physician: Jesus Manuel Jones MD History of Present Illness Patient undergoing treatment for multiple medical comorbidities. Was seen by Neurology 06/16. Now continues to demonstrate extended periods of time throughout day where she is extremely lethargic. When she is awake she is alert and oriented. at bedside able to provide history. Pateint able to be awakened. at bedside all questions answered. Discussed directly with Dr. Jones recommend continued to manage symptoms and repeat MRI brain with and without contrast and/or EEG if symptoms of confusion were to present. Allergies Allergy/AdvReac Type Severity Reaction Status Date / Time latex Allergy Mild Rash Verified 03/02/24 10:30 sulfamethoxazole Allergy Unknown SWELLING Verified 03/02/24 10:30 ON FACE AND LIPS trimethoprim Allergy Unknown SWELLING Verified 03/02/24 10:30 ON FACE AND LIPS cayenne pepper fruits AdvReac Unknown "spicy Verified 06/06/24 22:25 foods" cause swelling metformin AdvReac Unknown mood Verified 03/02/24 10:30 [facility] Home Medications Medication Instructions Recorded Confirmed Type calcium carbonate 600 mg-vitamin 1 cap PO DAILY 04/08/22 06/06/24 History D3 12.5 mcg (500 unit) capsule (Calcium 600 with Vitamin D3) atenolol 25 mg tablet 12.5 mg PO DAILY 12/03/22 06/06/24 History clonazepam 0.5 mg tablet 0.5 mg PO HS PRN anxiety or sleep 12/03/22 06/06/24 History magnesium 200 mg tablet 400 mg PO 2XD 06/29/23 06/06/24 History apixaban 5 mg tablet (Eliquis) 5 mg PO BID 06/06/24 06/06/24 History megestrol 625 mg/5 mL (125 mg/mL) 2 ml PO DAILY 06/06/24 06/06/24 History oral suspension prochlorperazine maleate 10 mg 10 mg PO Q6H PRN Nausea 06/06/24 06/06/24 History tablet Patient History Medical History History of DVT (deep vein thrombosis) Adenocarcinoma of gallbladder Restless legs syndrome (RLS) Anxiety 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) HTN (hypertension) Surgical History H/O partial mastectomy Family History Other Breast cancer Hypertension Social History Smoking Status: Never smoker Hx Alcohol Use: No Hx Substance Use: No Preferred Language: Amharic Communication Ability: Effective Custody Assistant Required: No Beliefs That Will Affect Care: Roman Catholic Current Living Situation: Spouse Current Living Situation Comment: Lives at home Other Information That Helps Us Care for You: No Feels Safe at Home: Yes Safety Concerns: Feels Safe At This Time Assistive Devices: Other Physical Exam Neurological Examination: Mental Status: When awake she is alert and oriented to person, place, and time. CN testing: I: Unable to accurately assess II:Unable to accurately assess III/IV/: No evidence of gaze preference, hippus, nystagmus or roving eye movements V: Unable to accurately assess VII: Facial movements appear without evidence of asymmetry VIII: Hearing appears grossly intact to loud voice bilaterally IX/X: Difficult to accurately visualize XI: Unable to accurately assess XII: Unable to accurately assess Motor exam: Able to move extremities Sensory: Unable to accurately assess Coordination: Unable to accurately assess Reflexes: Deferred Gait: Deferred Results & Data Vital Signs (Past 12 Hours) Vital Signs Temp Pulse Pulse Resp BP Pulse Ox O2 Del Method 06/26/24 11:55 37.1 C 98 H 18 112/79 98 Room Air 06/26/24 09:00 Room Air 06/26/24 08:00 90 06/26/24 07:25 36.6 C 95 H 18 101/70 97 Room Air Laboratory Results Abnormal lab results 06/25/24 06/25/24 06/25/24 Range/Units 16:14 18:06 20:13 WBC (4.8-10.8) K/ul RBC (4.20-5.40) M/uL Hgb (12.0-16.0) g/dl Hct (37.0-47.0) % MCV (80.0-100.0) fL RDW Std Deviation (36.4-46.3) fL RDW Coeff of Vicky (11.5-14.5) % Plt Count (130-400) K/uL Neut # (Auto) (1.40-6.50) K/uL [place] # (Auto) (0.11-0.59) K/uL Immature Gran # (Auto) (0.01-0.20) K/uL Sodium 135 L (136-145) mmol/L Chloride 108 H (98-107) mmol/L BUN 34 H (6-23) mg/dl BUN/Creatinine Ratio 39.1 H (10-20) Glucose 145 H (70-99(Fasting)) mg/dl POC Glucose 158 H 149 H (70-99) mg/dl Calcium 7.3 L (8.6-10.3) mg/dl 06/26/24 06/26/24 Range/Units 06:13 11:25 WBC 11.98 H (4.8-10.8) K/ul RBC 2.07 L (4.20-5.40) M/uL Hgb 6.9 L* (12.0-16.0) g/dl Hct 21.0 L (37.0-47.0) % MCV 101.4 H (80.0-100.0) fL RDW Std Deviation 71.7 H (36.4-46.3) fL RDW Coeff of Vicky 19.5 H (11.5-14.5) % Plt Count 94 L (130-400) K/uL Neut # (Auto) 8.40 H (1.40-6.50) K/uL [place] # (Auto) 1.22 H (0.11-0.59) K/uL Immature Gran # (Auto) 1.08 H (0.01-0.20) K/uL Sodium 135 L (136-145) mmol/L Chloride (98-107) mmol/L BUN 32 H (6-23) mg/dl BUN/Creatinine Ratio 37.6 H (10-20) Glucose 120 H (70-99(Fasting)) mg/dl POC Glucose 155 H (70-99) mg/dl Calcium 7.3 L (8.6-10.3) mg/dl Medications Administered Home Medications Medication Instructions Recorded Confirmed Last Taken calcium carbonate 600 mg-vitamin 1 cap PO DAILY 04/08/22 06/06/24 Unknown D3 12.5 mcg (500 unit) capsule (Calcium 600 with Vitamin D3) atenolol 25 mg tablet 12.5 mg PO DAILY 12/03/22 06/06/24 Unknown clonazepam 0.5 mg tablet 0.5 mg PO HS PRN anxiety or sleep 12/03/22 06/06/24 Unknown magnesium 200 mg tablet 400 mg PO 2XD 06/29/23 06/06/24 Unknown apixaban 5 mg tablet (Eliquis) 5 mg PO BID 06/06/24 06/06/24 Unknown megestrol 625 mg/5 mL (125 mg/mL) 2 ml PO DAILY 06/06/24 06/06/24 Unknown oral suspension prochlorperazine maleate 10 mg 10 mg PO Q6H PRN Nausea 06/06/24 06/06/24 Unknown tablet Active Medications Generic Name Dose Route Start Last Admin Trade Name Freq PRN Reason Stop Dose Admin Acetaminophen 1,000 mg 06/13/24 10:15 06/18/24 21:11 Acetaminophen 500 Mg Tab PO 07/13/24 10:14 1,000 mg Q8H PRN Administration Mild Pain (Scale 1, 2, 3) Apixaban 5 mg 06/07/24 09:00 06/21/24 11:50 Apixaban 5 Mg Tablet PO 07/07/24 08:59 Not Given BID [facility] Atenolol 12.5 mg 06/07/24 09:00 06/26/24 10:05 Atenolol 25 Mg Tablet PO 07/07/24 08:59 Not Given DAILY [facility] Calcium/Vitamin D 1 tab 06/07/24 09:00 06/26/24 10:06 Calcium 600mg + Vit D 400 Iu Tab PO 07/07/24 08:59 Not Given DAILY [facility] Heparin Sodium (Porcine) 5 ml 06/08/24 01:20 06/20/24 05:24 Heparin 100 Unit/Ml 5ml Flush FLUSH 07/08/24 01:19 5 ml PRN PRN Administration Flush Heparin Sodium (Porcine) 5,000 units 06/22/24 14:00 06/23/24 14:09 Heparin Sod 5,000 Unit/0.5 Ml Vial SQ 07/22/24 13:59 5,000 units Q8 JOSEPH Administration Pantoprazole Sodium 40 mg/ 10 mls @ 5 mls/min 06/21/24 21:00 06/26/24 09:22 Syringe IV 07/21/24 20:59 5 mls/min BID JOSEPH Administration Piperacillin Sod/Tazobactam Sod 4.5 gm in 100 mls @ 25 mls/hr 06/25/24 06:00 06/26/24 14:41 Zosyn IV 07/05/24 05:59 25 mls/hr Q8H JOSEPH Administration Amino Acids/Dextrose 1,103 ml/ 1,103 mls @ 46 mls/hr 06/25/24 16:00 06/25/24 15:22 Nutrition (Parenteral) IV 06/26/24 15:58 46 mls/hr .[id number] JOSEPH Administration Protocol Insulin Aspart 0 units 06/25/24 07:30 06/26/24 12:20 Insulin Aspart Per Unit Charge SC 07/25/24 07:29 1 units ACHS JOSEPH Administration Lidocaine 1 patch 06/13/24 10:30 06/26/24 09:23 Lidocaine 5% 1 Patch TD 07/13/24 10:29 1 patch QAM JOSEPH Administration Magnesium Oxide 400 mg 06/06/24 21:40 06/19/24 09:28 Magnesium Oxide 400 Mg Tab PO 07/06/24 21:39 Not Given BID JOSEPH Megestrol Acetate 250 mg 06/18/24 09:00 06/26/24 10:06 Megestrol Acetate Susp 400 Mg/10 Ml Udc PO 07/18/24 08:59 Not Given DAILY JOSEPH Miscellaneous 1 each 06/13/24 21:00 06/25/24 22:11 Remove Lidoderm Patch N/A 07/13/24 20:59 1 each DAILY@2100 JOSEPH Administration Miscellaneous 1 each 06/20/24 16:00 06/25/24 15:16 Check Scopolamine Patch Placement N/A 07/20/24 15:59 Not Given QS JOSEPH Miscellaneous 1 each 06/23/24 11:45 06/26/24 12:21 Remove Transderm-Scop Patch N/A 07/23/24 11:44 Not Given Q72H JOSEPH Potassium Chloride 40 meq 06/14/24 09:15 06/24/24 08:29 Potassium Chloride Pwd 20 Meq Pack PO 07/14/24 09:14 Not Given BID JOSEPH Potassium Phosphate 2 tab 06/10/24 13:00 06/24/24 21:15 Pot Phosphate Monobasic W/ Sod Tab PO 07/10/24 12:59 Not Given QID JOSEPH Saccharomyces Boulardii 250 mg 06/17/24 09:00 06/26/24 10:06 Saccharomyces Boulardii 250 Mg Cap PO 07/17/24 08:59 Not Given DAILY JOSEPH Scopolamine 1 patch 06/20/24 11:45 06/23/24 11:52 Scopolamine 1 Mg/72 Hr Tdsy Patch TD 07/20/24 11:44 1 patch Q72H JOSEPH Administration
--- NOTE | 2024-06-26 16:29 | Hospitalist Progress Note ---
Date of Service June 26, 2024 Assessment & Plan (1) Acute kidney injury superimposed on CKD: (2) Elevated lactic acid level: (3) Acute hyponatremia: (4) Adenocarcinoma of gallbladder: (5) History of DVT (deep vein thrombosis): (6) Anxiety: Plan: (1) Acute kidney injury superimposed on CKD: (2) Elevated lactic acid level: (3) Acute hyponatremia: (4) Adenocarcinoma of gallbladder: (5) History of DVT (deep vein thrombosis): (6) Anxiety: Plan Per previous hospitalist notes with addendum: Ms. 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 Patient found to have bowel obstruction. This bowel obstruction was management conservatively. Surgery signed off--stating that surgical intervention will only be pursued in an emergent situation. GI evaluated patient and spoke to Dr Morris, who placed stent. The concern of eroding tumor may be contributing to occult anemia. Patient to likely follow up with Dr. Morris. Patient remains lethargic Extensive work up for resp alkalosis and secondary metabolic alklosis ongoing -Metabolic likely 2/2 GI loses -Resp: r/o hyperammonemia, doesn't appear tachypneic/anxious Neurology consulted who notes this is likely multifactorial and best managed with supportive care From 06/17 to 06/18, patient with more alertness and ability to participate in exam. Attempting to eat more as able. Noted that liver enzymes are uptrending and given vague discomfort will order KUB to start to assess obstruction and will consider repeat CT ABD/P contingent on trend of LFTS. Liver enzymes have plateaued, appetite improving. EUGENE noted iso likely dehydration given intermittent po, which resolved with fluids. Pending continued improved and likely discharge to rehab v home based upon next 24 to 48 hours. Expressed to that patients medical condition is tenuous. That regardless of "where" she discharges it is hard to say when the recurrence of symptoms may come and if/when she may come back.. Expressed need for prompt Onc follow up to establish plan. #Acute toxic metabolic encephalopathy Biofire negative, UA negative MRI negative Ammonia 43 Neurology consulted: chronic leukoencephalopathy, cannot r/o neurotoxicity EEG pending read PT/OT ongoing Supportive care 06/22 Resolving Discontinue prochlorperazine Monitor closely 06/23 Oriented but mostly on the drowsy side Hopefully with initiation of PPN, Treatment of bowel obstruction, patient will continue to improve Monitor closely 06/24 Somewhat more interactive today Continue to monitor 06/25 Patient's lethargy progressed overnight CT head: No acute process Ammonia level, VBG, TSH, cortisol unremarkable Secondary to underlying UTI? Rule out bacteremia Follow urine and blood cultures Continue IV Zosyn 06/26 Lethargy seems to be improving Still has very poor appetite Urine culture: Yeast Blood cultures negative so far Continue empiric Zosyn for now Neurology service reconsulted Benadryl at night to promote better sleep #Transaminitis #Adenocarcinoma of gallbladder Last FOLFOX treatment 05/[address] Gross Continue Megace 06/08- patient's family requested 5FU reversal, but not warranted at this time per Oncology As above GI consult for further recs per General Surgery. CMP this am revealed liver enzymes elevated mildly Exam benign this am Trend CMP in am -Seems to have plateaued KUB seemingly stable compared to prior, and exam remains benign Scopolamine patch for nausea 06/21 Alk phos increased to 400s, monitor AST ALT stable Continue scopolamine patch 06/22 Alk phos continues to trend down Bilirubin, AST/ALT normal Small bowel, large bowel obstruction Developed abdominal pain yesterday, CT scan showing above General Surgery consulted N.p.o., IV fluids, NG tube Small bowel follow-through ordered Monitor closely 06/23 SBFT: Showing passage of contrast throughout the small intestine and colon, possible ileus NG tube in place, wall suction discontinued Continue to monitor Continue PPN, replace electrolytes 06/24 NG tube removed Clear liquid diet resumed General Surgery on board 06/25 No abdominal pain, nausea vomiting Requested for solid food, but only had 2 bites of peaches Monitor closely #Acute respiratory alkalosis secondary metabolic alkalosis #Diarrhea Gi losses likely etiology of metabolic alkalosis Resp alkalosis -MRI negative for clear central cause -Ammonia 43 -No pain/anxiety contributing to tachypnea Given reduced freuqncy of stool and increased intake with hold further fiber given risk of obstruction CTM output C diff negative Encourage PO resolved #Large Bowel Obstruction CT adb/pelvis noting transition point suggestive of obstruction Follow up KUB noting persistence of bowel obstruction Pt intially NPO, IV fluids, IV antiemetics, IV pain meds General surgery consulted, appreciate recs -recommended GI consult--signed off no further recommendations non-op management -recommended oncology consult, ordered inpt and pt's outpt oncologist on board as well -Palliative care consult discontinued at request of Per surgery can advance diet given pt having BMs. Further advanced to solids, soft on 06/13 as per above #Chemotherapy induced Neutropenia #Lactic acidosis iso obstruction/dehydration Possible sepsis r/o Pt with progressing neutropenia, in the setting of recent chemotherapy Lactate initially 4.4 on admission ->normalized to 2.0 with fluids Chest XRAY with no acute infection UA unremarkable respiratory testing negative MRSA nares negative Blood Cx x1 set NGTD. 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 Rejoiner/Oncologist Dr Christie on 06/08, s/p neupogen 480 mcg subcu for neutropenia for 3 days Need prompt OP Onc follow up given patient's desire for pursuing further treatment 06/22 WBC stable #Acute on chronic Anemia Hgb <7 on 06/11 s/p transfusion 1U pRBCs Holding home eliquis at this time FOBT POSITIVE Continue to monitor H/H GI re-consulted on 06/13 - will see pt after Eliquis on hold for 48hrs on 06/14 -No endoscopic interventions planned continue Eliquis Hemoglobin today 6.8 Likely upper GI source, in light of NG tube, Eliquis use 1 unit packed RBCs ordered Monitor hemoglobin Continue Protonix IV twice daily Hold heparin subcu 06/24 Hg increased to 9.2 06/25 Hemoglobin 7.3 No overt signs of bleeding at this point Continue to monitor closely 06/26 Hg 7.4 monitor #EUGENE superimposed on CKD *resolved 2/2 decreased oral intake/possible infection following chemo tx 05/30 Creatinine 2.36 on admission (previously 1.7 eight days prior) Given 2L NSS in ED, continued maintenance fluid Nephrology consulted, appreciate recs Continue to monitor, improving Repeat BMP 06/22 crea back to normal #Generalized weakness #Hyponatremiaresolved #Hypernatremia Na 129 on admission Likely in setting of poor PO intake Noted improvement with fluids Nephrology consulted as above Na 135 #Hypokalemia #Hypocalcemia #Hypophosphatemia Replete as needed ionized calcium in am (corrected for albumin is normal) replacement underway #Malnutrition Likely in setting of above Lingo Cleaner consult #H/o DVT Eliquis held for SBO, possible emergency procedures Heparin SC TID --> hold for anemia #HTN (hypertension) Continue atenolol #History of breast cancer S/p left partial mastectomy, XRT, 5 years of tamoxifen completed in August 2022 #Restless legs syndrome (RLS) Clonazepam HS PRN Diet: regular DVT Ppx: Eliquis, Heparin on hold for anemia Code status: FULL PCP: Loreta Dispo: pending plan of care discussed with patient and at bedside in detail and at length daily all questions answered he is understanding, agreeable, comfortable with the plan of care Admission and Anticipated Discharge Date Admission Date: June 06, 2024 Subjective Seen resting in bed, more alert, trying to converse States she feels okay just tired No abdominal pain, nausea or vomiting States her appetite still poor Encouraged to increase oral intake No headache, fevers or chills Review of Systems Review of Systems: all noted and negative except for above Physical Exam Physical Exam: General- oriented x 2, not in distress, speaks in sentences with no effort or accessory muscle use somewhat drowsy Eyes- anicteric Neck- no JVD Lungs- clear breath sounds bilaterally, no crackles or wheezing Heart- normal rate, regular rhythm; no murmurs Abdomen- normal bowel sounds, nondistended, soft, no tenderness Extremities- no pretibial edema, no calf tenderness Neuro- alert, oriented x 2; no gross focal neurologic deficits Skin- warm & dry Results & Data Results & Data Vital Signs (Past 12 Hours) Vital Signs Temp Pulse Pulse Resp BP Pulse Ox O2 Del Method 06/26/24 11:55 37.1 C 98 H 18 112/79 98 Room Air 06/26/24 09:00 Room Air 06/26/24 08:00 90 06/26/24 07:25 36.6 C 95 H 18 101/70 97 Room Air all noted and reviewed including below
[2024-06-26] MEDS: CENTRAL TPN IV SCH (16:34)
[2024-06-26] MEDS: [UNRECOGNIZED DRUG - OTHER] IV SCH (16:34)
[2024-06-26] MEDS: CLINOLIPID 20% IV FAT EMULSION 250 ML IV SCH (16:35)
[2024-06-26 17:38] LABS: Hematocrit (blood only) 23.5 % (37.0-47.0); Hemoglobin 7.4 g/dl (12.0-16.0); Mean Corpuscular Hgb Conc 31.5 g/dL (32.0-36.0); Mean Corpuscular Volume 101.7 fL (80.0-100.0); Mean Platelet Volume 10.4 fL (9.4-12.4); Nucleated RBC # (auto) 0.03 K/uL (0.00-0.12); Nucleated RBC % (auto) 0.3 %; Platelet Count 108 K/uL (130-400); RDW Coefficient of Variation 19.6 % (11.5-14.5); RDW Standard Deviation 71.2 fL (36.4-46.3); Red Blood Count 2.31 M/uL (4.20-5.40); White Blood Count 11.41 K/ul (4.8-10.8)
[2024-06-26 18:13] LABS: Basophils # (auto) 0.03 K/uL (0.00-0.20); Basophils % (auto) 0.3 %; Eosinophils # (auto) 0.03 K/uL (0.00-0.50); Eosinophils % (auto) 0.3 %; Immature Granulocytes # (auto) 0.95 K/uL (0.01-0.20); Immature Granulocytes % (auto) 8.3 %; Lymphocytes # (auto) 1.23 K/uL (1.20-3.40); Lymphocytes % (auto) 10.8 %; Monocytes # (auto) 1.06 K/uL (0.11-0.59); Monocytes % (auto) 9.3 %; Neutrophils # (auto) 8.11 K/uL (1.40-6.50)
[2024-06-26] MEDS: diphenhydrAMINE Capsule 25 MG CAP PO SCH (20:38)
[2024-06-26] MEDS: STOP CLINOLIPID SCH (22:34)
[2024-06-27 07:14] LABS: Calcium 7.8 mg/dl (8.6-10.3); Magnesium 2.1 mg/dl (1.7-2.4); Potassium 5.1 mmol/L (3.5-5.1)
[2024-06-27 07:20] LABS: BUN Creatinine Ratio 34.8 (10-20); Creatinine Clr Calc Pharmacy 53.8 ml/min; Est GFR (African American) 73.5 ml/min; Est GFR (Non-African American) 63.4 ml/min; Phosphorus 2.2 mg/dl (2.5-4.9)
[2024-06-27 07:56] LABS: Hematocrit (blood only) 26.3 % (37.0-47.0); Hemoglobin 8.3 g/dl (12.0-16.0); Mean Corpuscular Hemoglobin 31.8 pg (25.0-34.0); Mean Corpuscular Hgb Conc 31.6 g/dL (32.0-36.0); Mean Corpuscular Volume 100.8 fL (80.0-100.0); Mean Platelet Volume 10.6 fL (9.4-12.4); Nucleated RBC # (auto) 0.03 K/uL (0.00-0.12); Nucleated RBC % (auto) 0.3 %; Platelet Count 108 K/uL (130-400); RDW Coefficient of Variation 19.4 % (11.5-14.5); RDW Standard Deviation 71.7 fL (36.4-46.3); Red Blood Count 2.61 M/uL (4.20-5.40); White Blood Count 9.95 K/ul (4.8-10.8)
[2024-06-27 08:16] LABS: Basophils # (auto) 0.03 K/uL (0.00-0.20); Basophils % (auto) 0.3 %; Eosinophils # (auto) 0.02 K/uL (0.00-0.50); Eosinophils % (auto) 0.2 %; Immature Granulocytes # (auto) 0.75 K/uL (0.01-0.20); Immature Granulocytes % (auto) 7.5 %; Lymphocytes # (auto) 1.07 K/uL (1.20-3.40); Lymphocytes % (auto) 10.8 %; Monocytes % (auto) 10.1 %; Neutrophils # (auto) 7.08 K/uL (1.40-6.50); Neutrophils % (auto) 71.1 %
[2024-06-27] MEDS: SODIUM PHOSPHATE 15 MMOL in SODIUM CHLORIDE 0.9% 250 ML IV ONE (12:41)
--- NOTE | 2024-06-27 14:41 | Hospitalist Progress Note ---
Date of Service June 27, 2024 Assessment & Plan (1) Acute kidney injury superimposed on CKD: (2) Elevated lactic acid level: (3) Acute hyponatremia: (4) Adenocarcinoma of gallbladder: (5) History of DVT (deep vein thrombosis): (6) Anxiety: Plan: (1) Acute kidney injury superimposed on CKD: (2) Elevated lactic acid level: (3) Acute hyponatremia: (4) Adenocarcinoma of gallbladder: (5) History of DVT (deep vein thrombosis): (6) Anxiety: Plan Per previous hospitalist notes with addendum: Ms. 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 Patient found to have bowel obstruction. This bowel obstruction was management conservatively. Surgery signed off--stating that surgical intervention will only be pursued in an emergent situation. GI evaluated patient and spoke to Dr Morris, who placed stent. The concern of eroding tumor may be contributing to occult anemia. Patient to likely follow up with Dr. Morris. Patient remains lethargic Extensive work up for resp alkalosis and secondary metabolic alklosis ongoing -Metabolic likely 2/2 GI loses -Resp: r/o hyperammonemia, doesn't appear tachypneic/anxious Neurology consulted who notes this is likely multifactorial and best managed with supportive care From 06/17 to 06/18, patient with more alertness and ability to participate in exam. Attempting to eat more as able. Noted that liver enzymes are uptrending and given vague discomfort will order KUB to start to assess obstruction and will consider repeat CT ABD/P contingent on trend of LFTS. Liver enzymes have plateaued, appetite improving. EUGENE noted iso likely dehydration given intermittent po, which resolved with fluids. Pending continued improved and likely discharge to rehab v home based upon next 24 to 48 hours. Expressed to that patients medical condition is tenuous. That regardless of "where" she discharges it is hard to say when the recurrence of symptoms may come and if/when she may come back.. Expressed need for prompt Onc follow up to establish plan. 06/21 to 06/27 Patient developed recurrence of abdominal pain, CT abdomen and pelvis revealing small bowel obstruction with mesenteric hernia, and large bowel obstruction in the hepatic flexure, secondary to tethered gallbladder mass Patient transition to n.p.o. status, NG tube placed, general surgery consulted PPN started Patient fortunately improved with conservative management, small bowel follow- through confirmed resolution of obstruction, diet resumed However patient again developed progressive lethargy Extensive workup including CT head, VBG, ammonia, TSH, cortisol, and infectious workup repeated-all unrevealing Neurology service reconsulted, does not recommend any other testing at this point Currently, patient seems to be gradually improving in terms of lethargy, but still having very poor oral intake Continue with PPN until oral intake has improved Continue to monitor for signs of infection #Acute toxic metabolic encephalopathy patient again developed progressive lethargy over the weekend Extensive workup including CT head, VBG, ammonia, TSH, cortisol, and infectious workup repeated-all unrevealing Neurology service reconsulted, does not recommend any other testing at this point Scopolamine patch discontinued Seems to be gradually improving Continue to monitor closely #Transaminitis #Adenocarcinoma of gallbladder Last FOLFOX treatment 05/[address] Ginny Olivera 06/08- patient's family requested 5FU reversal, but not warranted at this time per Oncology As above GI consult for further recs per General Surgery. LFTs improving Small bowel, large bowel obstruction Patient developed recurrence of abdominal pain 06/16, CT abdomen and pelvis revealing small bowel obstruction with mesenteric hernia, and large bowel obstruction in the hepatic flexure, secondary to tethered gallbladder mass Patient transitioned to n.p.o. status, NG tube placed, general surgery consulted PPN started Patient Again improved with conservative management, small bowel follow-through confirmed resolution of obstruction, diet resumed However appetite, oral intake remains to be very poor Continue with PPN until oral intake has improved Continue Jarod Framing Inspector on board, discussed with weigher alloy #Acute respiratory alkalosis secondary metabolic alkalosis #Diarrhea Gi losses likely etiology of metabolic alkalosis Resp alkalosis -MRI negative for clear central cause -Ammonia 43 -No pain/anxiety contributing to tachypnea resolved #Large Bowel Obstruction CT adb/pelvis noting transition point suggestive of obstruction Follow up KUB noting persistence of bowel obstruction Pt intially NPO, IV fluids, IV antiemetics, IV pain meds General surgery consulted, appreciate recs -recommended GI consult--signed off no further recommendations non-op management -recommended oncology consult, ordered inpt and pt's outpt oncologist on board as well -Palliative care consult discontinued at request of Per surgery can advance diet given pt having BMs. Further advanced to solids, soft on 06/13 as per above #Chemotherapy induced Neutropenia #Lactic acidosis iso obstruction/dehydration Possible sepsis r/o Pt with progressing neutropenia, in the setting of recent chemotherapy Lactate initially 4.4 on admission ->normalized to 2.0 with fluids Chest XRAY with no acute infection UA unremarkable respiratory testing negative MRSA nares negative Blood Cx x1 set NGTD. 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 Account Retention Representative/Oncologist Dr Christie on 06/08, s/p neupogen 480 mcg subcu for neutropenia for 3 days Need prompt OP Onc follow up given patient's desire for pursuing further treatment Leukocytosis resolving #Acute on chronic Anemia Hgb <7 on 06/11 s/p transfusion 1U pRBCs Holding home eliquis at this time FOBT POSITIVE Continue to monitor H/H GI re-consulted on 06/13 - will see pt after Eliquis on hold for 48hrs on 06/14 -No endoscopic interventions planned continue Eliquis 06/23 Hemoglobin today 6.8 Likely upper GI source, in light of NG tube, Eliquis use 1 unit packed RBCs ordered Monitor hemoglobin Continue Protonix IV twice daily 06/27 hemoglobin remained stable between 7-8 No signs of acute bleeding #EUGENE superimposed on CKD *resolved 2/2 decreased oral intake/possible infection following chemo tx 05/30 Creatinine 2.36 on admission (previously 1.7 eight days prior) Given 2L NSS in ED, continued maintenance fluid Nephrology consulted, appreciate recs 06/27 Resolved #Generalized weakness #Hyponatremiaresolved #Hypernatremia Na 129 on admission Likely in setting of poor PO intake Noted improvement with fluids Nephrology consulted as above Na 133 #Hypokalemia #Hypocalcemia #Hypophosphatemia Replete as needed ionized calcium in am (corrected for albumin is normal) replacement underway #Malnutrition Likely in setting of above Signing Agent consult #H/o DVT Eliquis held for SBO, possible emergency procedures Heparin SC TID --> hold for anemia If hemoglobin remained stable until tomorrow, restart heparin subcu 3 times daily, and if hemoglobin still remains stable, resume Eliquis #HTN (hypertension) Continue atenolol #History of breast cancer S/p left partial mastectomy, XRT, 5 years of tamoxifen completed in August 2022 #Restless legs syndrome (RLS) Clonazepam HS PRN Diet: regular DVT Ppx: Eliquis, Heparin on hold for anemia Code status: FULL PCP: Loreta Dispo: pending Admission and Anticipated Discharge Date Admission Date: June 06, 2024 Subjective Discussed with RN, no acute events overnight Patient slept well overall Seen resting in bed, sleeping but easily awakened Answering questions appropriately States that she still feels sleepy, still having poor appetite But denies having nausea, vomiting, abdominal pain No shortness of breath, cough, fevers or chills No other new symptoms Review of Systems Review of Systems: all noted and negative except for above Physical Exam Physical Exam: General- oriented x 3, not in distress, speaks in sentences with no effort or accessory muscle use Sleeping Eyes- anicteric Neck- no JVD Lungs- clear breath sounds bilaterally, no rales/wheezes Heart- normal rate, regular rhythm; no murmurs Abdomen- normal bowel sounds, nondistended, soft, nontender Extremities- no pretibial edema, no calf tenderness Neuro- Sleepy but answering questions, oriented x 3; no new gross focal neurologic deficits Skin- warm & dry Results & Data Results & Data Vital Signs (Past 12 Hours) Vital Signs Temp Pulse Resp BP Pulse Ox O2 Del Method 06/27/24 11:16 36.9 C 96 H 14 105/74 97 Room Air 06/27/24 06:57 36.7 C 98 H 20 114/70 97 Room Air
[2024-06-27] MEDS: CENTRAL TPN IV SCH (16:07)
[2024-06-27] MEDS: [UNRECOGNIZED DRUG - OTHER] IV SCH (16:07)
[2024-06-27] MEDS: CLINOLIPID 20% IV FAT EMULSION 250 ML IV SCH (16:08)
[2024-06-27] MEDS: STOP CLINOLIPID SCH (22:07)
[2024-06-28 08:45] LABS: Hematocrit (blood only) 24.5 % (37.0-47.0); Hemoglobin 7.9 g/dl (12.0-16.0); Mean Corpuscular Hemoglobin 32.2 pg (25.0-34.0); Mean Corpuscular Hgb Conc 32.2 g/dL (32.0-36.0); Mean Platelet Volume 11.1 fL (9.4-12.4); Nucleated RBC # (auto) 0.03 K/uL (0.00-0.12); Nucleated RBC % (auto) 0.4 %; Platelet Count 113 K/uL (130-400); RDW Coefficient of Variation 18.7 % (11.5-14.5); RDW Standard Deviation 68.9 fL (36.4-46.3); Red Blood Count 2.45 M/uL (4.20-5.40); White Blood Count 8.16 K/ul (4.8-10.8)
[2024-06-28 09:11] LABS: BUN Creatinine Ratio 38.4 (10-20); Calcium 7.7 mg/dl (8.6-10.3); Creatinine Clr Calc Pharmacy 55.6 ml/min; Est GFR (African American) 76.6 ml/min; Est GFR (Non-African American) 66.1 ml/min; Magnesium 2.1 mg/dl (1.7-2.4); Phosphorus 3.5 mg/dl (2.5-4.9); Potassium 4.6 mmol/L (3.5-5.1)
[2024-06-28 09:12] LABS: Basophils # (auto) 0.03 K/uL (0.00-0.20); Basophils % (auto) 0.4 %; Eosinophils # (auto) 0.03 K/uL (0.00-0.50); Eosinophils % (auto) 0.4 %; Immature Granulocytes # (auto) 0.52 K/uL (0.01-0.20); Immature Granulocytes % (auto) 6.4 %; Lymphocytes # (auto) 1.22 K/uL (1.20-3.40); Monocytes # (auto) 0.88 K/uL (0.11-0.59); Monocytes % (auto) 10.8 %; Neutrophils # (auto) 5.48 K/uL (1.40-6.50); Polychromasia 1+
--- NOTE | 2024-06-28 10:38 | Hospitalist Progress Note ---
Date of Service June 28, 2024 Assessment & Plan (1) Acute kidney injury superimposed on CKD: (2) Elevated lactic acid level: (3) Acute hyponatremia: (4) Adenocarcinoma of gallbladder: (5) History of DVT (deep vein thrombosis): (6) Anxiety: Plan: Ms. 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 Patient found to have bowel obstruction. This bowel obstruction was management conservatively. Surgery signed off--stating that surgical intervention will only be pursued in an emergent situation. GI evaluated patient and spoke to Dr Morris, who placed stent. The concern of eroding tumor may be contributing to occult anemia. From 06/17 to 06/18, patient with more alertness and ability to participate in exam. Attempting to eat more as able. Noted that liver enzymes are uptrending and given vague discomfort will order KUB to start to assess obstruction and will consider repeat CT ABD/P contingent on trend of LFTS. On 06/19, it was expressed to that patients medical condition is tenuous. That regardless of "where" she discharges it is hard to say when the recurrence of symptoms may come and if/when she may come back.. Expressed need for prompt Onc follow up to establish plan. From 06/21 to 06/27, patient developed recurrence of abdominal pain, CT abdomen and pelvis revealing small bowel obstruction with mesenteric hernia, and large bowel obstruction in the hepatic flexure, secondary to tethered gallbladder mass. This was managed with conservative measures and small bowel follow through confirmed resolution. However, patient with marked lethargy and fluctuating delirium. patient remains on PPN due to poor po intake. Discussion was had with Dr. Christie--requested encounter with family to discuss treatment options given complicated and prolonged course in hospital. #Acute toxic metabolic encephalopathy patient again developed progressive lethargy over the weekend Extensive workup including CT head, VBG, ammonia, TSH, cortisol, and infectious workup repeated-all unrevealing Neurology service reconsulted, does not recommend any other testing at this point Scopolamine patch discontinued Discontinue benadryl 2/2 lethargy mentation proving to be tenuous Continue to monitor closely #Transaminitis #Adenocarcinoma of gallbladder Last FOLFOX treatment 05/[address] Gross Continue Megace 06/08- patient's family requested 5FU reversal, but not warranted at this time per Oncology As above GI consult for further recs per General Surgery. repeat CMP in am #Small bowel Obstruction #Large Bowel Obstruction CT adb/pelvis noting transition point suggestive of obstruction Follow up KUB noting persistence of bowel obstruction Pt intially NPO, IV fluids, IV antiemetics, IV pain meds General surgery consulted, appreciate recs -recommended GI consult--signed off no further recommendations non-op management -recommended oncology consult, ordered inpt and pt's outpt oncologist on board as well -Palliative care consult discontinued at request of Per surgery can advance diet given pt having BMs. Further advanced to solids, soft on 06/13 Patient developed recurrence of abdominal pain 06/16, CT abdomen and pelvis revealing small bowel obstruction with mesenteric hernia, and large bowel obstruction in the hepatic flexure, secondary to tethered gallbladder mass PPN started Patient Again improved with conservative management, small bowel follow-through confirmed resolution of obstruction, diet resumed However appetite, oral intake remains to be very poor Continue with PPN until oral intake has improved Continue Megace Encourage PO intake Leukocytosis resolved #Acute on chronic Anemia Hgb <7 on 06/11 s/p transfusion 1U pRBCs Holding home eliquis at this time FOBT POSITIVE on 06/23, Hemoglobin 6.8 Likely upper GI source, in light of NG tube, Eliquis use s/p 1 UPRBC Monitor hemoglobin Continue Protonix IV twice daily reticulocyte count in am Consider eliquis resumption as able #Chemotherapy induced Neutropenia #Lactic acidosis iso obstruction/dehydration Possible sepsis r/o Pt with progressing neutropenia, in the setting of recent chemotherapy Lactate initially 4.4 on admission ->normalized to 2.0 with fluids Chest XRAY with no acute infection UA unremarkable respiratory testing negative MRSA nares negative Blood Cx x1 set NGTD. 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 Retail Store Assistant/Oncologist Dr Christie on 06/08, s/p neupogen 480 mcg subcu for neutropenia for 3 days Need prompt OP Onc follow up given patient's desire for pursuing further treatment #EUGENE superimposed on CKD *resolved 2/2 decreased oral intake/possible infection following chemo tx 05/30 Creatinine 2.36 on admission (previously 1.7 eight days prior) CTM #Generalized weakness #Hyponatremiaresolved #Hypernatremia Na 129 on admission Likely in setting of poor PO intake Noted improvement with fluids CTM trend BMP #Hypokalemia #Hypocalcemia #Hypophosphatemia Replete as needed ionized calcium in am (corrected for albumin is normal) replacement underway #Malnutrition Likely in setting of above Poultry Picker consult #H/o DVT Eliquis held for SBO, possible emergency procedures continue heparin sq, plan to resume eliquis in 1-2 days #HTN (hypertension) Continue atenolol #History of breast cancer S/p left partial mastectomy, XRT, 5 years of tamoxifen completed in August 2022 #Restless legs syndrome (RLS) Clonazepam HS PRN #Acute respiratory alkalosis secondary metabolic alkalosis resolved #Diarrhea improved Gi losses likely etiology of metabolic alkalosis Resp alkalosis -MRI negative for clear central cause -Ammonia 43 -No pain/anxiety contributing to tachypnea Diet: regular, PPN DVT Ppx: Eliquis held, cont sq Heparin on hold Code status: FULL PCP: Loreta Dispo: pending Admission and Anticipated Discharge Date Admission Date: June 06, 2024 Subjective Lethargic today, no acute concerns but endorses feeling very tired Refusing most medications and daughter at bedside Physical Exam Constitutional: lethargic Respiratory: normal respiratory effort, lungs clear to auscultation Cardiovascular: RRR, no murmur, no edema Gastrointestinal (Abdomen): normal bowel sounds, soft, nontender, no hepatosplenomegaly Neurologic: PERRL, EOMI, accommodation nl, no face palsy, no dysarthria (alert to self and in hospital) Results & Data Results & Data Vital Signs (Past 12 Hours) Vital Signs Temp Pulse Pulse Resp BP Pulse Ox O2 Del Method 06/28/24 10:14 101 H 06/28/24 09:57 Room Air 06/28/24 07:27 36.4 C L 104 H 14 118/82 98 Room Air 06/28/24 04:00 36.4 C L 99 H 20 116/79 98 Room Air 06/27/24 23:17 36.6 C 101 H 18 109/75 98 Room Air Laboratory Results Short CBC 06/28/24 Range/Units 08:24 WBC 8.16 (4.8-10.8) K/ul Hgb 7.9 L (12.0-16.0) g/dl Hct 24.5 L (37.0-47.0) % Plt Count 113 L (130-400) K/uL BMP 06/28/24 08:24 Sodium 133 L Potassium 4.6 Chloride 103 Carbon Dioxide 24 BUN 33 H Creatinine 0.86 Glucose 125 H Calcium 7.7 L Medications Administered Home Medications Medication Instructions Recorded Confirmed Last Taken calcium carbonate 600 mg-vitamin 1 cap PO DAILY 04/08/22 06/06/24 Unknown D3 12.5 mcg (500 unit) capsule (Calcium 600 with Vitamin D3) atenolol 25 mg tablet 12.5 mg PO DAILY 12/03/22 06/06/24 Unknown clonazepam 0.5 mg tablet 0.5 mg PO HS PRN anxiety or sleep 12/03/22 06/06/24 Unknown magnesium 200 mg tablet 400 mg PO 2XD 06/29/23 06/06/24 Unknown apixaban 5 mg tablet (Eliquis) 5 mg PO BID 06/06/24 06/06/24 Unknown megestrol 625 mg/5 mL (125 mg/mL) 2 ml PO DAILY 06/06/24 06/06/24 Unknown oral suspension prochlorperazine maleate 10 mg 10 mg PO Q6H PRN Nausea 06/06/24 06/06/24 Unknown tablet Active Medications Generic Name Dose Route Start Last Admin Trade Name Freq PRN Reason Stop Dose Admin Acetaminophen 1,000 mg 06/13/24 10:15 06/27/24 14:01 Acetaminophen 500 Mg Tab PO 07/13/24 10:14 1,000 mg Q8H PRN Administration Mild Pain (Scale 1, 2, 3) Apixaban 5 mg 06/07/24 09:00 06/21/24 11:50 Apixaban 5 Mg Tablet PO 07/07/24 08:59 Not Given BID JOSEPH Atenolol 12.5 mg 06/07/24 09:00 06/27/24 08:50 Atenolol 25 Mg Tablet PO 07/07/24 08:59 Not Given DAILY JOSEPH Calcium/Vitamin D 1 tab 06/07/24 09:00 06/27/24 08:50 Calcium 600mg + Vit D 400 Iu Tab PO 07/07/24 08:59 Not Given DAILY JOSEPH Diphenhydramine HCl 25 mg 06/26/24 21:00 06/27/24 20:31 Diphenhydramine Capsule 25 Mg Cap PO 07/26/24 20:59 25 mg HS JOSEPH Administration Heparin Sodium (Porcine) 5 ml 06/08/24 01:20 06/20/24 05:24 Heparin 100 Unit/Ml 5ml Flush FLUSH 07/08/24 01:19 5 ml PRN PRN Administration Flush Heparin Sodium (Porcine) 5,000 units 06/22/24 14:00 06/23/24 14:09 Heparin Sod 5,000 Unit/0.5 Ml Vial SQ 07/22/24 13:59 5,000 units Q8 JOSEPH Administration Pantoprazole Sodium 40 mg/ 10 mls @ 5 mls/min 06/21/24 21:00 06/28/24 08:27 Syringe IV 07/21/24 20:59 5 mls/min BID JOSEPH Administration Amino Acids/Dextrose 1,103.2 1,103.2 mls @ 45.97 mls/hr 06/27/24 16:00 06/27/24 16:07 ml/ Nutrition (Parenteral) IV 06/28/24 15:59 46 mls/hr .Q24H JOSEPH Administration Protocol Insulin Aspart 0 units 06/25/24 07:30 06/28/24 08:25 Insulin Aspart Per Unit Charge SC 07/25/24 07:29 1 units ACHS JOSEPH Administration Lidocaine 1 patch 06/13/24 10:30 06/28/24 08:27 Lidocaine 5% 1 Patch TD 07/13/24 10:29 1 patch QAM JOSEPH Administration Magnesium Oxide 400 mg 06/06/24 21:40 06/19/24 09:28 Magnesium Oxide 400 Mg Tab PO 07/06/24 21:39 Not Given BID JOSEPH Megestrol Acetate 250 mg 06/18/24 09:00 06/27/24 08:50 Megestrol Acetate Susp 400 Mg/10 Ml Udc PO 07/18/24 08:59 Not Given DAILY JOSEPH Miscellaneous 1 each 06/13/24 21:00 06/27/24 20:32 Remove Lidoderm Patch N/A 07/13/24 20:59 1 each DAILY@2100 JOSEPH Administration Miscellaneous 1 each 06/20/24 16:00 06/25/24 15:16 Check Scopolamine Patch Placement N/A 07/20/24 15:59 Not Given QS JOSEPH Miscellaneous 1 each 06/23/24 11:45 06/26/24 12:21 Remove Transderm-Scop Patch N/A 07/23/24 11:44 Not Given Q72H JOSEPH Miscellaneous 1 each 06/27/24 22:00 06/27/24 22:07 Stop Clinolipid N/A 07/27/24 21:59 1 each Q24H JOSEPH Administration Potassium Chloride 40 meq 06/14/24 09:15 06/24/24 08:29 Potassium Chloride Pwd 20 Meq Pack PO 07/14/24 09:14 Not Given BID JOSEPH Potassium Phosphate 2 tab 06/10/24 13:00 06/24/24 21:15 Pot Phosphate Monobasic W/ Sod Tab PO 07/10/24 12:59 Not Given QID JOSEPH Saccharomyces Boulardii 250 mg 06/17/24 09:00 06/27/24 08:50 Saccharomyces Boulardii 250 Mg Cap PO 07/17/24 08:59 Not Given DAILY JOSEPH Scopolamine 1 patch 06/20/24 11:45 06/23/24 11:52 Scopolamine 1 Mg/72 Hr Tdsy Patch TD 07/20/24 11:44 1 patch Q72H JOSEPH Administration
[2024-06-28] MEDS: CENTRAL TPN IV SCH (16:45)
[2024-06-28] MEDS: CLINOLIPID 20% IV FAT EMULSION 250 ML IV SCH (16:45)
[2024-06-28] MEDS: [UNRECOGNIZED DRUG - OTHER] IV SCH (16:45)
[2024-06-29 08:11] LABS: Hematocrit (blood only) 23.4 % (37.0-47.0); Hemoglobin 7.5 g/dl (12.0-16.0); Mean Corpuscular Hemoglobin 32.3 pg (25.0-34.0); Mean Corpuscular Hgb Conc 32.1 g/dL (32.0-36.0); Mean Corpuscular Volume 100.9 fL (80.0-100.0); Mean Platelet Volume 10.7 fL (9.4-12.4); Nucleated RBC # (auto) 0.04 K/uL (0.00-0.12); Nucleated RBC % (auto) 0.4 %; Platelet Count 147 K/uL (130-400); RDW Coefficient of Variation 18.5 % (11.5-14.5); Red Blood Count 2.32 M/uL (4.20-5.40); White Blood Count 8.93 K/ul (4.8-10.8)
[2024-06-29 08:44] LABS: Basophils # (auto) 0.03 K/uL (0.00-0.20); Basophils % (auto) 0.3 %; Eosinophils # (auto) 0.02 K/uL (0.00-0.50); Eosinophils % (auto) 0.2 %; Immature Granulocytes # (auto) 0.43 K/uL (0.01-0.20); Immature Granulocytes % (auto) 4.8 %; Lymphocytes # (auto) 1.47 K/uL (1.20-3.40); Lymphocytes % (auto) 16.5 %; Monocytes # (auto) 0.99 K/uL (0.11-0.59); Monocytes % (auto) 11.1 %; Neutrophils # (auto) 5.99 K/uL (1.40-6.50); Neutrophils % (auto) 67.1 %; Polychromasia 1+
[2024-06-29 09:14] LABS: Calcium 7.8 mg/dl (8.6-10.3); Magnesium 2.1 mg/dl (1.7-2.4); Potassium 4.5 mmol/L (3.5-5.1)
[2024-06-29 09:19] LABS: BUN Creatinine Ratio 44.2 (10-20); Creatinine Clr Calc Pharmacy 55.7 ml/min; Est GFR (African American) 76.6 ml/min; Est GFR (Non-African American) 66.1 ml/min; Phosphorus 3.7 mg/dl (2.5-4.9)
--- NOTE | 2024-06-29 10:28 | Hospitalist Progress Note ---
Date of Service June 29, 2024 Assessment & Plan (1) Acute kidney injury superimposed on CKD: (2) Elevated lactic acid level: (3) Acute hyponatremia: (4) Adenocarcinoma of gallbladder: (5) History of DVT (deep vein thrombosis): (6) Anxiety: Plan: Ms. 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 Patient found to have bowel obstruction. This bowel obstruction was management conservatively. Surgery signed off--stating that surgical intervention will only be pursued in an emergent situation. GI evaluated patient and spoke to Dr Morris, who placed stent. The concern of eroding tumor may be contributing to occult anemia. From 06/17 to 06/18, patient with more alertness and ability to participate in exam. Attempting to eat more as able. Noted that liver enzymes are uptrending and given vague discomfort will order KUB to start to assess obstruction and will consider repeat CT ABD/P contingent on trend of LFTS. On 06/19, it was expressed to that patients medical condition is tenuous. That regardless of "where" she discharges it is hard to say when the recurrence of symptoms may come and if/when she may come back.. Expressed need for prompt Onc follow up to establish plan. From 06/21 to 06/27, patient developed recurrence of abdominal pain, CT abdomen and pelvis revealing small bowel obstruction with mesenteric hernia, and large bowel obstruction in the hepatic flexure, secondary to tethered gallbladder mass. This was managed with conservative measures and small bowel follow through confirmed resolution. However, patient with marked lethargy and fluctuating delirium. patient remains on PPN due to poor po intake. Discussion was had with Dr. Christie--requested encounter with family to discuss treatment options given complicated and prolonged course in hospital. Patient's states Dr. Christie spoke with him and his daughter on 06/28--stating something to the effect that "she has to get through this to get to the clinic." Concern for looming reobstruction, will start management for malignant bowel obstruction. Family agreed to palliative consult for optimizing symptoms and perhaps further driving goals of care as there seems to a barrier for further discussions. KUB ordered and 1x dose of 10mg dexamethasone today #Acute toxic metabolic encephalopathy *fluctuating likely multifactorial--chronic leukoencephalopathy, delirium 2/2 chronic illness, malnutrition patient again developed progressive lethargy over the weekend Extensive workup including CT head, VBG, ammonia, TSH, cortisol, and infectious workup repeated-all unrevealing Neurology service reconsulted, does not recommend any other testing at this point Scopolamine patch discontinued Discontinued benadryl 2/2 lethargy Encourage delirium precautions and sleep hygiene Continue to monitor closely #Malignant Bowel Obstruction #Small bowel Obstruction #Large Bowel Obstruction CT adb/pelvis noting transition point suggestive of obstruction Follow up KUB noting persistence of bowel obstruction Pt intially NPO, IV fluids, IV antiemetics, IV pain meds General surgery consulted, appreciate recs: no surgical intervention GI: no further stenting; conservative management Recurrent obstruction iso malignancy with recurrence of abdominal pain 06/16, CT abdomen and pelvis revealing small bowel obstruction with mesenteric hernia, and large bowel obstruction in the hepatic flexure, secondary to tethered gallbladder mass -PPN started -Poor intake, encouraged home megace -06/29, abdominal bloat/distention -Will trial Dexamethsone for MBO - agreeable to palliative care consult given need for optimizing symptomatic control v transitioning to GoC, difficult to broach conversation. #Transaminitis #Adenocarcinoma of gallbladder Last FOLFOX treatment 05/[address] Gross; transitioned to Dr. Christie Continue Megace 06/08- patient's family requested 5FU reversal, but not warranted at this time per Oncology As above GI consult for further recs per General Surgery. repeat CMP in am Family hopeful for a "treatment" and ways to get patient "out and to the clinic" -Discussing that this is complicated 2/2 to recurrent obstruction #Acute on chronic Anemia Hgb <7 on 06/11 s/p transfusion 1U pRBCs Holding home eliquis at this time FOBT POSITIVE on 06/23, Hemoglobin 6.8 Likely upper GI source, in light of NG tube, Eliquis use s/p 1 UPRBC Monitor hemoglobin Continue Protonix IV twice daily Holding Eliquis for down trending Hgb Will continue heparin 2/2 risk for DVT -Will discuss IVC filter if able to stablized in next 24-hours #Chemotherapy induced Neutropenia *resolved #Lactic acidosis iso obstruction/dehydration Possible sepsis r/o Pt with progressing neutropenia, in the setting of recent chemotherapy Lactate initially 4.4 on admission ->normalized to 2.0 with fluids Chest XRAY with no acute infection UA unremarkable respiratory testing negative MRSA nares negative Blood Cx x1 set NGTD. 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 Multiple Resaw Operator/Oncologist Dr Christie on 06/08, s/p neupogen 480 mcg subcu for neutropenia for 3 days Need prompt OP Onc follow up given patient's desire for pursuing further treatment #EUGENE superimposed on CKD *resolved 2/2 decreased oral intake/possible infection following chemo tx 05/30 Creatinine 2.36 on admission (previously 1.7 eight days prior) CTM #Generalized weakness #Hyponatremiaresolved #Hypernatremia Na 129 on admission Likely in setting of poor PO intake Noted improvement with fluids CTM trend BMP #Hypokalemia #Hypocalcemia #Hypophosphatemia Replete as needed ionized calcium in am (corrected for albumin is normal) replacement underway #Malnutrition Likely in setting of above Well Service Floor Worker consult PPN on going #H/o DVT Eliquis held for SBO, possible emergency procedures continue heparin sq May need to discuss IVC filter if vascular would consider #HTN (hypertension) Continue atenolol #History of breast cancer S/p left partial mastectomy, XRT, 5 years of tamoxifen completed in August 2022 #Restless legs syndrome (RLS) Clonazepam HS PRN #Acute respiratory alkalosis secondary metabolic alkalosis resolved #Diarrhea improved Gi losses likely etiology of metabolic alkalosis Resp alkalosis -MRI negative for clear central cause -Ammonia 43 -No pain/anxiety contributing to tachypnea Diet: regular, PPN DVT Ppx: Eliquis held, cont sq Heparin on hold Code status: FULL PCP: Loreta Dispo: pending Admission and Anticipated Discharge Date Admission Date: June 06, 2024 Subjective Spoke with patient prior to husbands arrival States she does not want feeding tube States she is worried about pain with eating, but also has lack of appetite Reports continued exhaustion Denies diarrhea, but notes she doesnt recall last BM Physical Exam Constitutional: lethargic, weak Respiratory: normal respiratory effort, lungs clear to auscultation Cardiovascular: RRR, no murmur, no edema Gastrointestinal (Abdomen): mild distention but soft BS+ Neurologic: PERRL, EOMI, accommodation nl, no face palsy, no dysarthria (alert to self and in hospital) Results & Data Results & Data Vital Signs (Past 12 Hours) Vital Signs Temp Pulse Pulse Resp BP Pulse Ox O2 Del Method 06/29/24 07:55 36.5 C 102 H 16 111/78 98 Room Air 06/29/24 02:20 36.3 C L 99 H 16 117/83 99 Room Air 06/28/24 23:26 108 H 06/28/24 22:44 37.2 C 103 H 16 115/80 97 Room Air Laboratory Results Short CBC 06/29/24 Range/Units 07:41 WBC 8.93 (4.8-10.8) K/ul Hgb 7.5 L (12.0-16.0) g/dl Hct 23.4 L (37.0-47.0) % Plt Count 147 (130-400) K/uL BMP 06/29/24 07:41 Sodium 132 L Potassium 4.5 Chloride 103 Carbon Dioxide 22 BUN 38 H Creatinine 0.86 Glucose 138 H Calcium 7.8 L Medications Administered Home Medications Medication Instructions Recorded Confirmed Last Taken calcium carbonate 600 mg-vitamin 1 cap PO DAILY 04/08/22 06/06/24 Unknown D3 12.5 mcg (500 unit) capsule (Calcium 600 with Vitamin D3) atenolol 25 mg tablet 12.5 mg PO DAILY 12/03/22 06/06/24 Unknown clonazepam 0.5 mg tablet 0.5 mg PO HS PRN anxiety or sleep 12/03/22 06/06/24 Unknown magnesium 200 mg tablet 400 mg PO 2XD 06/29/23 06/06/24 Unknown apixaban 5 mg tablet (Eliquis) 5 mg PO BID 06/06/24 06/06/24 Unknown megestrol 625 mg/5 mL (125 mg/mL) 2 ml PO DAILY 06/06/24 06/06/24 Unknown oral suspension prochlorperazine maleate 10 mg 10 mg PO Q6H PRN Nausea 06/06/24 06/06/24 Unknown tablet Active Medications Generic Name Dose Route Start Last Admin Trade Name Freq PRN Reason Stop Dose Admin Acetaminophen 1,000 mg 06/13/24 10:15 06/27/24 14:01 Acetaminophen 500 Mg Tab PO 07/13/24 10:14 1,000 mg Q8H PRN Administration Mild Pain (Scale 1, 2, 3) Apixaban 5 mg 06/07/24 09:00 06/21/24 11:50 Apixaban 5 Mg Tablet PO 07/07/24 08:59 Not Given BID [facility] Atenolol 12.5 mg 06/07/24 09:00 06/29/24 08:27 Atenolol 25 Mg Tablet PO 07/07/24 08:59 12.5 mg DAILY JOSEPH Administration Calcium/Vitamin D 1 tab 06/07/24 09:00 06/29/24 08:26 Calcium 600mg + Vit D 400 Iu Tab PO 07/07/24 08:59 1 tab DAILY JOSEPH Administration Heparin Sodium (Porcine) 5 ml 06/08/24 01:20 06/20/24 05:24 Heparin 100 Unit/Ml 5ml Flush FLUSH 07/08/24 01:19 5 ml PRN PRN Administration Flush Heparin Sodium (Porcine) 5,000 units 06/22/24 14:00 06/23/24 14:09 Heparin Sod 5,000 Unit/0.5 Ml Vial SQ 07/22/24 13:59 5,000 units Q8 JOSEPH Administration Pantoprazole Sodium 40 mg/ 10 mls @ 5 mls/min 06/21/24 21:00 06/29/24 08:37 Syringe IV 07/21/24 20:59 5 mls/min BID JOSEPH Administration Amino Acids/Dextrose 1,111.2 1,111.2 mls @ 45.97 mls/hr 06/28/24 16:00 06/28/24 16:45 ml/ Nutrition (Parenteral) IV 06/29/24 15:59 46 mls/hr .Q24H JOSEPH Administration Protocol Insulin Aspart 0 units 06/25/24 07:30 06/29/24 08:34 Insulin Aspart Per Unit Charge SC 07/25/24 07:29 1 units ACHS JOSEPH Administration Lidocaine 1 patch 06/13/24 10:30 06/29/24 08:31 Lidocaine 5% 1 Patch TD 07/13/24 10:29 1 patch QAM JOSEPH Administration Magnesium Oxide 400 mg 06/06/24 21:40 06/19/24 09:28 Magnesium Oxide 400 Mg Tab PO 07/06/24 21:39 Not Given BID [facility] Megestrol Acetate 250 mg 06/18/24 09:00 06/29/24 08:41 Megestrol Acetate Susp 400 Mg/10 Ml Udc PO 07/18/24 08:59 250 mg DAILY JOSEPH Administration Miscellaneous 1 each 06/13/24 21:00 06/28/24 20:59 Remove Lidoderm Patch N/A 07/13/24 20:59 1 each DAILY@2100 JOSEPH Administration Miscellaneous 1 each 06/20/24 16:00 06/25/24 15:16 Check Scopolamine Patch Placement N/A 07/20/24 15:59 Not Given QS JOSEPH Miscellaneous 1 each 06/23/24 11:45 06/26/24 12:21 Remove Transderm-Scop Patch N/A 07/23/24 11:44 Not Given Q72H JOSEPH Miscellaneous 1 each 06/27/24 22:00 06/28/24 22:43 Stop Clinolipid N/A 07/27/24 21:59 1 each Q24H JOSEPH Administration Potassium Chloride 40 meq 06/14/24 09:15 06/24/24 08:29 Potassium Chloride Pwd 20 Meq Pack PO 07/14/24 09:14 Not Given BID JOSEPH Potassium Phosphate 2 tab 06/10/24 13:00 06/24/24 21:15 Pot Phosphate Monobasic W/ Sod Tab PO 07/10/24 12:59 Not Given QID JOSEPH Saccharomyces Boulardii 250 mg 06/17/24 09:00 06/28/24 17:23 Saccharomyces Boulardii 250 Mg Cap PO 07/17/24 08:59 Not Given DAILY JOSEPH Scopolamine 1 patch 06/20/24 11:45 06/23/24 11:52 Scopolamine 1 Mg/72 Hr Tdsy Patch TD 07/20/24 11:44 1 patch Q72H JOSEPH Administration
--- NOTE | 2024-06-29 11:36 | XRay Report ---
KUB CLINICAL HISTORY: Abdominal distention. FINDINGS: AP, portable, supine abdominal radiograph is compared to study dated 06/24/2024 and correlat ed with abdominal CT dated 06/21/2024. A common bile duct stent is seen in the right upper quadrant. T he gastrojejunostomy stent is seen in the left upper quadrant. There is persistent marked gaseous dis tention of the small bowel loops, which measure up to 5 cm in diameter. There is residual enteric con trast within the distal small bowel and the markedly dilated right colon. There is a small amount of contrast within the relatively decompressed left colon. When correlated with the prior CT scan, the a ppearance favors a right-sided colonic obstruction. No evidence of intraperitoneal free-air is seen o n this supine image. No abnormal abdominal calcifications are identified. The skeletal structures are osteopenic and appear intact. IMPRESSION: 1. Findings favor a right-sided colonic obstruction as above. 2. A small amount of enteric-contrast has reached the decompressed left colon. 3. Postsurgical changes as above. Dictated: 06/29/2024 11:08 AM Transcribed: 06/29/2024 11:21 AM Diego [id number] [email or web address] Electronically signed by: Wally Storey M.D. 06/29/2024 11:34 AM
[2024-06-29 11:43] LABS: Albumin Level 2.2 gm/dl (3.4-5.0); Bilirubin Direct 0.3 mg/dl (0-0.2); Bilirubin,Total 0.5 mg/dl (0.2-1.0); Total Protein 5.2 gm/dl (6.0-8.3)
[2024-06-29] MEDS: dexAMETHasone 6 MG in SYRINGE 0 ML IV ONE (12:56)
[2024-06-29] MEDS: CENTRAL TPN IV SCH (16:25)
[2024-06-29] MEDS: [UNRECOGNIZED DRUG - OTHER] IV SCH (16:25)
[2024-06-29] MEDS: CLINOLIPID 20% IV FAT EMULSION 250 ML IV SCH (16:26)
--- NOTE | 2024-06-29 17:46 | XRay Report ---
KUB CLINICAL HISTORY: Enteric tube placement. FINDINGS: An AP, portable, upright view of the lower chest and upper abdomen is compared to study per formed earlier the same day 06/29/2024. Correlation is made to abdominal CT dated 06/21/2024. An enteri c tube has been placed. The tip projects below the diaphragm over the mid stomach. A right subclavian central venous infusion port is partially imaged. A common bile duct stent and a gastrojejunostomy s tent are seen in the upper abdomen. There is evidence of persistent small bowel obstruction. No intra peritoneal free air is seen below the diaphragm. The lung bases are clear as visualized noting depend ent atelectasis. IMPRESSION: 1. An enteric tube has been placed as above. 2. Persistent bowel obstruction. Electronically signed by: Wally Storey M.D. 06/29/2024 5:45 PM
--- NOTE | 2024-06-29 23:47 | Palliative Care Consultation ---
Date of Consultation June 29, 2024 Assessment & Plan (1) Altered mental status: (2) Cancer related pain: (3) Advanced care planning/counseling discussion: Patient is not decisionally intact and could not engage in a ACP discussion A face to face 50min ACP meeting was held with along with Dr Khan We discussed her clinical course through this admission and her overall cancer care journey, He tells us he knows this is not a curable cancer and they had a very lonnie conversation with provider before the initial stent as well as with Dr. Gross when he reviewed pros/cons and overall outcomes for chemo. states that pt was always consistent in her choice of wanting to pursue any intervention for her cancer or its issues that would help her buy time, live longer, deal with the cancer. asked about surgery noting that she keeps reobstructing and he and his daughter believe this is not going to be fixable in any fpc sense bc patient does want to take some PO as she can but every time she tries to resume that, another obstruction happens. Family want to bring pt home and believe being back home is where she will heal most comfortably and give them the best chance for her to optimize before returning to oncology clinic. They would like a plan for surgery in a more planned and controlled way versus waiting until it becomes urgent and she may not be in the best state clinically. This is a reasonable ask and we agreed to share the request with surgery. We also discussed Decadron will be a time limited trial: the [employer] Supportive Care in Cancer (MASCC) MBO study group guidelines do not recommend it as a press tender long goods therapy given potential complications and toxicities of fpc steroid/immunosuppression/muscle deconditioning/wound healing/infection risks etc. We discussed Decadron dose between 4 and 16 mg of dexamethasone daily may be considered and if no symptomatic improvement in 3 to 5 days, discontinuation should be considered (Halima A, Phoenix J, Kolby A, et al. [facility] multidisciplinary evidence-based recommendations for the management of malignant bowel obstruction in advanced cancer.Support Care Cancer. 2021;30(6):0001-0295. doi:10.1007/[id number]). I spent 15min reviewing best case/worst case scenarios with . We acknowledged the limits of medicine and the incurable nature of her cancer, We discussed the what-ifs of further decline and he was able to tell us that if she worsens to a point where end of life is nearing/time is running out/there is not anything further to offer to improve her cancer, then he and pt had discussed her wishes - they would want to be home and with family. She has been clear with him that she does not want to in the hospital. 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 acknowledges having some of the same worry but trying to "squash it down bc I don't want to think about it deal with it, I guess." We agreed to see how the next few days go on decadron while additional discussions with surgery team are held re the obstruction surgery, best timing, options etc. states he wants everything that can be done here/locally to be done and he would like to avoid going to [facility] unless he has not other choice but notes it is a tremendous financial, personal and emotional hardship for them if she has to go to [place]. and daughter are very high information seeking and prefer to know all the information in a very direct manner. He states he does not need anyone to "sugarcoat" information. Using [id number] statements may help this family process information in a manner that may be more reflective - I wish allows for aligning with the patient's hopes. I worry allows for being truthful while sensitive. I wonder is a subtle way to make a recommendation: "I wish we could slow down or stop the growth of this cancer and I promise that I will continue to look for options that could work for you. I worry that you and your family may not be prepared if things dont go as we hope. I wonder if we can discuss a different plan today." (4) Palliative care by specialist: Introduced Palliative Medicine and explained our role in patient's care. cautiously receptive to palliative services for goals of care discussions. 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 Please page with any additional concerns. Erik Edwards DNP Director, Palliative Medicine History of Present Illness Reason for Consultation: SBO, adenoca of gallbladder/metastatic, goals, family care Attending Physician: Laly Khan MD History of Present Illness Anjelica is a 74yo female admitted 06/05/24 with chemo induced neutropenia, weakness, AMS, worsening abd pain. She has metastatic adenoca of gallbladder followed by Dr Gross, she has been treated with FOLFOX/last tx given 05/30/24. She has been found to have SBO. This has been recurrent and she has not been able to remain unobstructed: she is in a cycle of NPO for a few days which will help obstruction relief then as soon as she resume any PO, even liquid, crackers etc - obstructive process begins again. She has consistently declined feeding tube She remains on PPN When lucid enough to report symptoms, consistently admits to severe exhaustion, cancer related pain From 06/21 to 06/27, patient developed recurrence of abdominal pain, CT abdomen and pelvis revealing small bowel obstruction with mesenteric hernia, and large bowel obstruction in the hepatic flexure, secondary to tethered gallbladder mass. This was managed with conservative measures and small bowel follow through confirmed resolution. However, patient with marked lethargy and fluctuating delirium. patient remains on PPN due to poor po intake. KUB today: +Persistent SBO She is lethargic, confused/+AMS She is not able to provide HPI confirms hx above She is followed by Dr Gross/[facility] oncology 06/24/24: pt/ spoke with surgery - conservative mgt recc, no indication for surgery unless emergent needs arise Allergies Allergy/AdvReac Type Severity Reaction Status Date / Time latex Allergy Mild Rash Verified 03/02/24 10:30 sulfamethoxazole Allergy Unknown SWELLING Verified 03/02/24 10:30 ON FACE AND LIPS trimethoprim Allergy Unknown SWELLING Verified 03/02/24 10:30 ON FACE AND LIPS cayenne pepper fruits AdvReac Unknown "spicy Verified 06/06/24 22:25 foods" cause swelling metformin AdvReac Unknown mood Verified 03/02/24 10:30 disorder per [facility] record Home Medications Medication Instructions Recorded Confirmed Type calcium carbonate 600 mg-vitamin 1 cap PO DAILY 04/08/22 06/06/24 History D3 12.5 mcg (500 unit) capsule (Calcium 600 with Vitamin D3) atenolol 25 mg tablet 12.5 mg PO DAILY 12/03/22 06/06/24 History clonazepam 0.5 mg tablet 0.5 mg PO HS PRN anxiety or sleep 12/03/22 06/06/24 History magnesium 200 mg tablet 400 mg PO 2XD 06/29/23 06/06/24 History apixaban 5 mg tablet (Eliquis) 5 mg PO BID 06/06/24 06/06/24 History megestrol 625 mg/5 mL (125 mg/mL) 2 ml PO DAILY 06/06/24 06/06/24 History oral suspension prochlorperazine maleate 10 mg 10 mg PO Q6H PRN Nausea 06/06/24 06/06/24 History tablet Patient History Medical History History of DVT (deep vein thrombosis) Adenocarcinoma of gallbladder Restless legs syndrome (RLS) Anxiety 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) HTN (hypertension) Surgical History H/O partial mastectomy Family History Other Breast cancer Hypertension Social History Smoking Status: Never smoker Hx Alcohol Use: No Hx Substance Use: No Preferred Language: Ukrainian Communication Ability: Effective Manager Printing Required: No Beliefs That Will Affect Care: Holiness Current Living Situation: Spouse Current Living Situation Comment: Lives at home Other Information That Helps Us Care for You: No Feels Safe at Home: Yes Safety Concerns: Feels Safe At This Time Assistive Devices: Other Review of Systems Review of Systems: Unobtainable due to cognitive status Physical Exam Physical Exam: +AMS/delirious unable to engage in discussion chronically ill appearing diaphoretic normal rep effort at rest, she is sleeping at time of my visit abd distended +pallor Results & Data Vital Signs (Past 12 Hours) Vital Signs Temp Pulse Pulse Resp BP Pulse Ox O2 Del Method 06/29/24 22:29 36.4 C L 96 H 18 110/74 99 Room Air 06/29/24 19:52 Room Air 06/29/24 19:40 36.5 C 98 H 18 114/79 98 Room Air 06/29/24 17:40 95 H 06/29/24 17:03 36.8 C 98 H 18 117/83 99 Room Air 06/29/24 13:45 95 H Laboratory Results 06/30/24 06/29/24 06/29/24 Range/Units 00:20 16:33 11:29 WBC (4.8-10.8) K/ul RBC (4.20-5.40) M/uL Hgb (12.0-16.0) g/dl Hct (37.0-47.0) % MCV (80.0-100.0) fL MCH (25.0-34.0) pg MCHC (32.0-36.0) g/dL RDW Std Deviation (36.4-46.3) fL RDW Coeff of Vicky (11.5-14.5) % Plt Count (130-400) K/uL MPV (9.4-12.4) fL Immature Gran % (Auto) % Neut % (Auto) % Lymph % (Auto) % Ford % (Auto) % Eos % (Auto) % Baso % (Auto) % Neut # (Auto) (1.40-6.50) K/uL Lymph # (Auto) (1.20-3.40) K/uL Ford # (Auto) (0.11-0.59) K/uL Eos # (Auto) (0.00-0.50) K/uL Baso # (Auto) (0.00-0.20) K/uL Immature Gran # (Auto) (0.01-0.20) K/uL Absolute Nucleated RBC (0.00-0.12) K/uL Nucleated RBC % (auto) % Neutrophils % (Manual) % Band Neutrophils % Lymphocytes % (Manual) % Prolymphocyte % Reactive Lymphs % (Man) Monocytes % (Manual) % Eosinophils % (Manual) % Basophils % (Manual) Metamyelocytes % (Man) % Myelocytes % (Man) % Promyelocytes % (Man) Blast Cells % (Manual) Plasma Cell % (Manual) Other Cells % Nucleated RBC % Neutrophils # (Manual) (1.40-6.50) K/uL Band Neutrophils # Total Absolute Neuts (1.4-6.5) K/uL Lymphocytes # (Manual) (1.2-3.4) K/uL Prolymphocyte # Reactive Lymphs # Total Abs Lymphocytes (1.2-3.4) K/uL Monocytes # (Manual) (0.11-0.59) K/uL Eosinophils # (Manual) (0-0.50) K/uL Basophils # (Manual) Metamyelocytes # (Man) (0-0) K/uL Myelocytes # (Manual) (0-0) K/uL Promyelocytes # (Man) Blast Cells # (Man) Plasma Cell # (Manual) Other Cells # Nucleated RBCs # (Man) Hypersegmented Neuts Hyposegmented Neuts Hypogranular Neuts Large Granular Lymphs # Lrg Granular Lymphs Hairy Cells Smudge Cells Toxic Granulation Toxic Vacuolation Dohle Bodies Kevon Rods Platelet Estimate Hypogranular Platelets Giant Platelets Platelet Satelliting RBC Morphology Polychromasia Hypochromasia Poikilocytosis Basophilic Stippling Anisocytosis Microcytosis Macrocytosis Spherocytes Pappenheimer Bodies Sickle Cells Target Cells Tear Drop Cells Ovalocytes Stomatocytes Sullivan-Electra Bodies Echinocytes Acanthocytes (Spur) Rouleaux RBC Agglutinates Schistocytes Sezary Cell VBG pH (7.36-7.41) VBG pCO2 (38-50) mmHg VBG pO2 mmHg VBG HCO3 mmol/L VBG O2 Saturation % VBG Base Excess mEq/L Sodium (136-145) mmol/L Potassium (3.5-5.1) mmol/L Chloride (98-107) mmol/L Carbon Dioxide (21-32) mmol/L Anion Gap (3-11) BUN (6-23) mg/dl Creatinine (0.6-1.2) mg/dl Est Cr Clr Drug Dosing ml/min Est GFR ( Amer) ml/min Est GFR (Non-Af Amer) ml/min BUN/Creatinine Ratio (10-20) Glucose (70-99(Fasting)) mg/dl POC Glucose 141 H 185 H 140 H (70-99) mg/dl Estimat Average Glucose mg/dl Hemoglobin A1c (4.5-5.6) % Calcium (8.6-10.3) mg/dl Ionized Calcium (1.12-1.32) mmol/L Phosphorus (2.5-4.9) mg/dl Magnesium (1.7-2.4) mg/dl Total Bilirubin (0.2-1.0) mg/dl Direct Bilirubin (0-0.2) mg/dl AST (13-39) U/L ALT (7-52) U/L Alkaline Phosphatase (34-104) U/L Ammonia (18-72) umol/L Total Protein (6.0-8.3) gm/dl Albumin (3.4-5.0) gm/dl Globulin (2.5-4.0) gm/dl Albumin/Globulin Ratio (0.9-2) Triglycerides (0-150) mg/dl TSH (0.300-4.500) uIu/ml Cortisol AM Sample (6.2-22.6) mcg/dl Urine Color Urine Appearance (Clear) Urine pH (4.5-7.5) Ur Specific [place] (1.000-1.030) Urine Protein (Negative) Urine Glucose (UA) (Negative) Urine Ketones (Negative) Urine Blood (Negative) Urine Nitrite (Negative) Urine Bilirubin (Negative) Urine Urobilinogen (Negative) Ur Leukocyte Esterase (Negative) Urine WBC (Auto) (0-5) /hpf Urine RBC (Auto) (0-2) /hpf U Hyaline Cast (Auto) (0-2) /lpf U Epithel Cells (Auto) (0-2) /hpf Urine Bacteria (Auto) (None Seen) Urine Yeast (None Prsent) Blood Parasites ID Blood Type Antibody Screen Crossmatch 06/29/24 06/29/24 06/29/24 Range/Units 11:23 10:56 07:41 WBC 8.93 (4.8-10.8) K/ul RBC 2.32 L (4.20-5.40) M/uL Hgb 7.5 L (12.0-16.0) g/dl Hct 23.4 L (37.0-47.0) % MCV 100.9 H (80.0-100.0) fL MCH 32.3 (25.0-34.0) pg MCHC 32.1 (32.0-36.0) g/dL RDW Std Deviation 68.0 H (36.4-46.3) fL RDW Coeff of Vicky 18.5 H (11.5-14.5) % Plt Count 147 (130-400) K/uL MPV 10.7 (9.4-12.4) fL Immature Gran % (Auto) 4.8 % Neut % (Auto) 67.1 % Lymph % (Auto) 16.5 % Ford % (Auto) 11.1 % Eos % (Auto) 0.2 % Baso % (Auto) 0.3 % Neut # (Auto) 5.99 (1.40-6.50) K/uL Lymph # (Auto) 1.47 (1.20-3.40) K/uL Ford # (Auto) 0.99 H (0.11-0.59) K/uL Eos # (Auto) 0.02 (0.00-0.50) K/uL Baso # (Auto) 0.03 (0.00-0.20) K/uL Immature Gran # (Auto) 0.43 H (0.01-0.20) K/uL Absolute Nucleated RBC 0.04 (0.00-0.12) K/uL Nucleated RBC % (auto) 0.4 % Neutrophils % (Manual) % Band Neutrophils % Lymphocytes % (Manual) % Prolymphocyte % Reactive Lymphs % (Man) Monocytes % (Manual) % Eosinophils % (Manual) % Basophils % (Manual) Metamyelocytes % (Man) % Myelocytes % (Man) % Promyelocytes % (Man) Blast Cells % (Manual) Plasma Cell % (Manual) Other Cells % Nucleated RBC % Neutrophils # (Manual) (1.40-6.50) K/uL Band Neutrophils # Total Absolute Neuts (1.4-6.5) K/uL Lymphocytes # (Manual) (1.2-3.4) K/uL Prolymphocyte # Reactive Lymphs # Total Abs Lymphocytes (1.2-3.4) K/uL Monocytes # (Manual) (0.11-0.59) K/uL Eosinophils # (Manual) (0-0.50) K/uL Basophils # (Manual) Metamyelocytes # (Man) (0-0) K/uL Myelocytes # (Manual) (0-0) K/uL Promyelocytes # (Man) Blast Cells # (Man) Plasma Cell # (Manual) Other Cells # Nucleated RBCs # (Man) Hypersegmented Neuts Hyposegmented Neuts Hypogranular Neuts Large Granular Lymphs # Lrg Granular Lymphs Hairy Cells Smudge Cells Toxic Granulation Toxic Vacuolation Dohle Bodies Kevon Rods Platelet Estimate Hypogranular Platelets Giant Platelets Platelet Satelliting RBC Morphology Polychromasia 1+ Hypochromasia Poikilocytosis Basophilic Stippling Anisocytosis Microcytosis Macrocytosis Spherocytes Pappenheimer Bodies Sickle Cells Target Cells Tear Drop Cells Ovalocytes Stomatocytes Sullivan-Electra Bodies Echinocytes Acanthocytes (Spur) Rouleaux RBC Agglutinates Schistocytes Sezary Cell VBG pH (7.36-7.41) VBG pCO2 (38-50) mmHg VBG pO2 mmHg VBG HCO3 mmol/L VBG O2 Saturation % VBG Base Excess mEq/L Sodium 132 L (136-145) mmol/L Potassium 4.5 (3.5-5.1) mmol/L Chloride 103 (98-107) mmol/L Carbon Dioxide 22 (21-32) mmol/L Anion Gap 7 (3-11) BUN 38 H (6-23) mg/dl Creatinine 0.86 (0.6-1.2) mg/dl Est Cr Clr Drug Dosing 55.7 ml/min Est GFR ( Amer) 76.6 ml/min Est GFR (Non-Af Amer) 66.1 ml/min BUN/Creatinine Ratio 44.2 H (10-20) Glucose 138 H (70-99(Fasting)) mg/dl POC Glucose 155 H (70-99) mg/dl Estimat Average Glucose mg/dl Hemoglobin A1c (4.5-5.6) % Calcium 7.8 L (8.6-10.3) mg/dl Ionized Calcium (1.12-1.32) mmol/L Phosphorus 3.7 (2.5-4.9) mg/dl Magnesium 2.1 (1.7-2.4) mg/dl Total Bilirubin 0.5 (0.2-1.0) mg/dl Direct Bilirubin 0.3 H (0-0.2) mg/dl AST 24 (13-39) U/L ALT 36 (7-52) U/L Alkaline Phosphatase 232 H (34-104) U/L Ammonia (18-72) umol/L Total Protein 5.2 L (6.0-8.3) gm/dl Albumin 2.2 L (3.4-5.0) gm/dl Globulin (2.5-4.0) gm/dl Albumin/Globulin Ratio (0.9-2) Triglycerides (0-150) mg/dl TSH (0.300-4.500) uIu/ml Cortisol AM Sample (6.2-22.6) mcg/dl Urine Color Urine Appearance (Clear) Urine pH (4.5-7.5) Ur Specific [place] (1.000-1.030) Urine Protein (Negative) Urine Glucose (UA) (Negative) Urine Ketones (Negative) Urine Blood (Negative) Urine Nitrite (Negative) Urine Bilirubin (Negative) Urine Urobilinogen (Negative) Ur Leukocyte Esterase (Negative) Urine WBC (Auto) (0-5) /hpf Urine RBC (Auto) (0-2) /hpf U Hyaline Cast (Auto) (0-2) /lpf U Epithel Cells (Auto) (0-2) /hpf Urine Bacteria (Auto) (None Seen) Urine Yeast (None Prsent) Blood Parasites ID Blood Type Antibody Screen Crossmatch 06/29/24 06/28/24 06/28/24 Range/Units 07:17 20:17 16:22 WBC (4.8-10.8) K/ul RBC (4.20-5.40) M/uL Hgb (12.0-16.0) g/dl Hct (37.0-47.0) % MCV (80.0-100.0) fL MCH (25.0-34.0) pg MCHC (32.0-36.0) g/dL RDW Std Deviation (36.4-46.3) fL RDW Coeff of Vicky (11.5-14.5) % Plt Count (130-400) K/uL MPV (9.4-12.4) fL Immature Gran % (Auto) % Neut % (Auto) % Lymph % (Auto) % Ford % (Auto) % Eos % (Auto) % Baso % (Auto) % Neut # (Auto) (1.40-6.50) K/uL Lymph # (Auto) (1.20-3.40) K/uL Ford # (Auto) (0.11-0.59) K/uL Eos # (Auto) (0.00-0.50) K/uL Baso # (Auto) (0.00-0.20) K/uL Immature Gran # (Auto) (0.01-0.20) K/uL Absolute Nucleated RBC (0.00-0.12) K/uL Nucleated RBC % (auto) % Neutrophils % (Manual) % Band Neutrophils % Lymphocytes % (Manual) % Prolymphocyte % Reactive Lymphs % (Man) Monocytes % (Manual) % Eosinophils % (Manual) % Basophils % (Manual) Metamyelocytes % (Man) % Myelocytes % (Man) % Promyelocytes % (Man) Blast Cells % (Manual) Plasma Cell % (Manual) Other Cells % Nucleated RBC % Neutrophils # (Manual) (1.40-6.50) K/uL Band Neutrophils # Total Absolute Neuts (1.4-6.5) K/uL Lymphocytes # (Manual) (1.2-3.4) K/uL Prolymphocyte # Reactive Lymphs # Total Abs Lymphocytes (1.2-3.4) K/uL Monocytes # (Manual) (0.11-0.59) K/uL Eosinophils # (Manual) (0-0.50) K/uL Basophils # (Manual) Metamyelocytes # (Man) (0-0) K/uL Myelocytes # (Manual) (0-0) K/uL Promyelocytes # (Man) Blast Cells # (Man) Plasma Cell # (Manual) Other Cells # Nucleated RBCs # (Man) Hypersegmented Neuts Hyposegmented Neuts Hypogranular Neuts Large Granular Lymphs # Lrg Granular Lymphs Hairy Cells Smudge Cells Toxic Granulation Toxic Vacuolation Dohle Bodies Kevon Rods Platelet Estimate Hypogranular Platelets Giant Platelets Platelet Satelliting RBC Morphology Polychromasia Hypochromasia Poikilocytosis Basophilic Stippling Anisocytosis Microcytosis Macrocytosis Spherocytes Pappenheimer Bodies Sickle Cells Target Cells Tear Drop Cells Ovalocytes Stomatocytes Sullivan-Electra Bodies Echinocytes Acanthocytes (Spur) Rouleaux RBC Agglutinates Schistocytes Sezary Cell VBG pH (7.36-7.41) VBG pCO2 (38-50) mmHg VBG pO2 mmHg VBG HCO3 mmol/L VBG O2 Saturation % VBG Base Excess mEq/L Sodium (136-145) mmol/L Potassium (3.5-5.1) mmol/L Chloride (98-107) mmol/L Carbon Dioxide (21-32) mmol/L Anion Gap (3-11) BUN (6-23) mg/dl Creatinine (0.6-1.2) mg/dl Est Cr Clr Drug Dosing ml/min Est GFR ( Amer) ml/min Est GFR (Non-Af Amer) ml/min BUN/Creatinine Ratio (10-20) Glucose (70-99(Fasting)) mg/dl POC Glucose 158 H 145 H 137 H (70-99) mg/dl Estimat Average Glucose mg/dl Hemoglobin A1c (4.5-5.6) % Calcium (8.6-10.3) mg/dl Ionized Calcium (1.12-1.32) mmol/L Phosphorus (2.5-4.9) mg/dl Magnesium (1.7-2.4) mg/dl Total Bilirubin (0.2-1.0) mg/dl Direct Bilirubin (0-0.2) mg/dl AST (13-39) U/L ALT (7-52) U/L Alkaline Phosphatase (34-104) U/L Ammonia (18-72) umol/L Total Protein (6.0-8.3) gm/dl Albumin (3.4-5.0) gm/dl Globulin (2.5-4.0) gm/dl Albumin/Globulin Ratio (0.9-2) Triglycerides (0-150) mg/dl TSH (0.300-4.500) uIu/ml Cortisol AM Sample (6.2-22.6) mcg/dl Urine Color Urine Appearance (Clear) Urine pH (4.5-7.5) Ur Specific [place] (1.000-1.030) Urine Protein (Negative) Urine Glucose (UA) (Negative) Urine Ketones (Negative) Urine Blood (Negative) Urine Nitrite (Negative) Urine Bilirubin (Negative) Urine Urobilinogen (Negative) Ur Leukocyte Esterase (Negative) Urine WBC (Auto) (0-5) /hpf Urine RBC (Auto) (0-2) /hpf U Hyaline Cast (Auto) (0-2) /lpf U Epithel Cells (Auto) (0-2) /hpf Urine Bacteria (Auto) (None Seen) Urine Yeast (None Prsent) Blood Parasites ID Blood Type Antibody Screen Crossmatch 06/28/24 06/28/24 06/28/24 Range/Units 11:14 08:24 07:28 WBC 8.16 (4.8-10.8) K/ul RBC 2.45 L (4.20-5.40) M/uL Hgb 7.9 L (12.0-16.0) g/dl Hct 24.5 L (37.0-47.0) % MCV 100.0 (80.0-100.0) fL MCH 32.2 (25.0-34.0) pg MCHC 32.2 (32.0-36.0) g/dL RDW Std Deviation 68.9 H (36.4-46.3) fL RDW Coeff of Vicky 18.7 H (11.5-14.5) % Plt Count 113 L (130-400) K/uL MPV 11.1 (9.4-12.4) fL Immature Gran % (Auto) 6.4 % Neut % (Auto) 67.0 % Lymph % (Auto) 15.0 % Ford % (Auto) 10.8 % Eos % (Auto) 0.4 % Baso % (Auto) 0.4 % Neut # (Auto) 5.48 (1.40-6.50) K/uL Lymph # (Auto) 1.22 (1.20-3.40) K/uL Ford # (Auto) 0.88 H (0.11-0.59) K/uL Eos # (Auto) 0.03 (0.00-0.50) K/uL Baso # (Auto) 0.03 (0.00-0.20) K/uL Immature Gran # (Auto) 0.52 H (0.01-0.20) K/uL Absolute Nucleated RBC 0.03 (0.00-0.12) K/uL Nucleated RBC % (auto) 0.4 % Neutrophils % (Manual) % Band Neutrophils % Lymphocytes % (Manual) % Prolymphocyte % Reactive Lymphs % (Man) Monocytes % (Manual) % Eosinophils % (Manual) % Basophils % (Manual) Metamyelocytes % (Man) % Myelocytes % (Man) % Promyelocytes % (Man) Blast Cells % (Manual) Plasma Cell % (Manual) Other Cells % Nucleated RBC % Neutrophils # (Manual) (1.40-6.50) K/uL Band Neutrophils # Total Absolute Neuts (1.4-6.5) K/uL Lymphocytes # (Manual) (1.2-3.4) K/uL Prolymphocyte # Reactive Lymphs # Total Abs Lymphocytes (1.2-3.4) K/uL Monocytes # (Manual) (0.11-0.59) K/uL Eosinophils # (Manual) (0-0.50) K/uL Basophils # (Manual) Metamyelocytes # (Man) (0-0) K/uL Myelocytes # (Manual) (0-0) K/uL Promyelocytes # (Man) Blast Cells # (Man) Plasma Cell # (Manual) Other Cells # Nucleated RBCs # (Man) Hypersegmented Neuts Hyposegmented Neuts Hypogranular Neuts Large Granular Lymphs # Lrg Granular Lymphs Hairy Cells Smudge Cells Toxic Granulation Toxic Vacuolation Dohle Bodies Kevon Rods Platelet Estimate Hypogranular Platelets Giant Platelets Platelet Satelliting RBC Morphology Polychromasia 1+ Hypochromasia Poikilocytosis Basophilic Stippling Anisocytosis Microcytosis Macrocytosis Spherocytes Pappenheimer Bodies Sickle Cells Target Cells Tear Drop Cells Ovalocytes Stomatocytes Sullivan-Electra Bodies Echinocytes Acanthocytes (Spur) Rouleaux RBC Agglutinates Schistocytes Sezary Cell VBG pH (7.36-7.41) VBG pCO2 (38-50) mmHg VBG pO2 mmHg VBG HCO3 mmol/L VBG O2 Saturation % VBG Base Excess mEq/L Sodium 133 L (136-145) mmol/L Potassium 4.6 (3.5-5.1) mmol/L Chloride 103 (98-107) mmol/L Carbon Dioxide 24 (21-32) mmol/L Anion Gap 6 (3-11) BUN 33 H (6-23) mg/dl Creatinine 0.86 (0.6-1.2) mg/dl Est Cr Clr Drug Dosing 55.6 ml/min Est GFR ( Amer) 76.6 ml/min Est GFR (Non-Af Amer) 66.1 ml/min BUN/Creatinine Ratio 38.4 H (10-20) Glucose 125 H (70-99(Fasting)) mg/dl POC Glucose 123 H 148 H (70-99) mg/dl Estimat Average Glucose mg/dl Hemoglobin A1c (4.5-5.6) % Calcium 7.7 L (8.6-10.3) mg/dl Ionized Calcium (1.12-1.32) mmol/L Phosphorus 3.5 D (2.5-4.9) mg/dl Magnesium 2.1 (1.7-2.4) mg/dl Total Bilirubin (0.2-1.0) mg/dl Direct Bilirubin (0-0.2) mg/dl AST (13-39) U/L ALT (7-52) U/L Alkaline Phosphatase (34-104) U/L Ammonia (18-72) umol/L Total Protein (6.0-8.3) gm/dl Albumin (3.4-5.0) gm/dl Globulin (2.5-4.0) gm/dl Albumin/Globulin Ratio (0.9-2) Triglycerides (0-150) mg/dl TSH (0.300-4.500) uIu/ml Cortisol AM Sample (6.2-22.6) mcg/dl Urine Color Urine Appearance (Clear) Urine pH (4.5-7.5) Ur Specific [place] (1.000-1.030) Urine Protein (Negative) Urine Glucose (UA) (Negative) Urine Ketones (Negative) Urine Blood (Negative) Urine Nitrite (Negative) Urine Bilirubin (Negative) Urine Urobilinogen (Negative) Ur Leukocyte Esterase (Negative) Urine WBC (Auto) (0-5) /hpf Urine RBC (Auto) (0-2) /hpf U Hyaline Cast (Auto) (0-2) /lpf U Epithel Cells (Auto) (0-2) /hpf Urine Bacteria (Auto) (None Seen) Urine Yeast (None Prsent) Blood Parasites ID Blood Type Antibody Screen Crossmatch 06/27/24 06/27/24 06/27/24 Range/Units 20:31 16:08 11:23 WBC (4.8-10.8) K/ul RBC (4.20-5.40) M/uL Hgb (12.0-16.0) g/dl Hct (37.0-47.0) % MCV (80.0-100.0) fL MCH (25.0-34.0) pg MCHC (32.0-36.0) g/dL RDW Std Deviation (36.4-46.3) fL RDW Coeff of Vicky (11.5-14.5) % Plt Count (130-400) K/uL MPV (9.4-12.4) fL Immature Gran % (Auto) % Neut % (Auto) % Lymph % (Auto) % Ford % (Auto) % Eos % (Auto) % Baso % (Auto) % Neut # (Auto) (1.40-6.50) K/uL Lymph # (Auto) (1.20-3.40) K/uL Ford # (Auto) (0.11-0.59) K/uL Eos # (Auto) (0.00-0.50) K/uL Baso # (Auto) (0.00-0.20) K/uL Immature Gran # (Auto) (0.01-0.20) K/uL Absolute Nucleated RBC (0.00-0.12) K/uL Nucleated RBC % (auto) % Neutrophils % (Manual) % Band Neutrophils % Lymphocytes % (Manual) % Prolymphocyte % Reactive Lymphs % (Man) Monocytes % (Manual) % Eosinophils % (Manual) % Basophils % (Manual) Metamyelocytes % (Man) % Myelocytes % (Man) % Promyelocytes % (Man) Blast Cells % (Manual) Plasma Cell % (Manual) Other Cells % Nucleated RBC % Neutrophils # (Manual) (1.40-6.50) K/uL Band Neutrophils # Total Absolute Neuts (1.4-6.5) K/uL Lymphocytes # (Manual) (1.2-3.4) K/uL Prolymphocyte # Reactive Lymphs # Total Abs Lymphocytes (1.2-3.4) K/uL Monocytes # (Manual) (0.11-0.59) K/uL Eosinophils # (Manual) (0-0.50) K/uL Basophils # (Manual) Metamyelocytes # (Man) (0-0) K/uL Myelocytes # (Manual) (0-0) K/uL Promyelocytes # (Man) Blast Cells # (Man) Plasma Cell # (Manual) Other Cells # Nucleated RBCs # (Man) Hypersegmented Neuts Hyposegmented Neuts Hypogranular Neuts Large Granular Lymphs # Lrg Granular Lymphs Hairy Cells Smudge Cells Toxic Granulation Toxic Vacuolation Dohle Bodies Kevon Rods Platelet Estimate Hypogranular Platelets Giant Platelets Platelet Satelliting RBC Morphology Polychromasia Hypochromasia Poikilocytosis Basophilic Stippling Anisocytosis Microcytosis Macrocytosis Spherocytes Pappenheimer Bodies Sickle Cells Target Cells Tear Drop Cells Ovalocytes Stomatocytes Sullivan-Electra Bodies Echinocytes Acanthocytes (Spur) Rouleaux RBC Agglutinates Schistocytes Sezary Cell VBG pH (7.36-7.41) VBG pCO2 (38-50) mmHg VBG pO2 mmHg VBG HCO3 mmol/L VBG O2 Saturation % VBG Base Excess mEq/L Sodium (136-145) mmol/L Potassium (3.5-5.1) mmol/L Chloride (98-107) mmol/L Carbon Dioxide (21-32) mmol/L Anion Gap (3-11) BUN (6-23) mg/dl Creatinine (0.6-1.2) mg/dl Est Cr Clr Drug Dosing ml/min Est GFR ( Amer) ml/min Est GFR (Non-Af Amer) ml/min BUN/Creatinine Ratio (10-20) Glucose (70-99(Fasting)) mg/dl POC Glucose 151 H 161 H 161 H (70-99) mg/dl Estimat Average Glucose mg/dl Hemoglobin A1c (4.5-5.6) % Calcium (8.6-10.3) mg/dl Ionized Calcium (1.12-1.32) mmol/L Phosphorus (2.5-4.9) mg/dl Magnesium (1.7-2.4) mg/dl Total Bilirubin (0.2-1.0) mg/dl Direct Bilirubin (0-0.2) mg/dl AST (13-39) U/L ALT (7-52) U/L Alkaline Phosphatase (34-104) U/L Ammonia (18-72) umol/L Total Protein (6.0-8.3) gm/dl Albumin (3.4-5.0) gm/dl Globulin (2.5-4.0) gm/dl Albumin/Globulin Ratio (0.9-2) Triglycerides (0-150) mg/dl TSH (0.300-4.500) uIu/ml Cortisol AM Sample (6.2-22.6) mcg/dl Urine Color Urine Appearance (Clear) Urine pH (4.5-7.5) Ur Specific [place] (1.000-1.030) Urine Protein (Negative) Urine Glucose (UA) (Negative) Urine Ketones (Negative) Urine Blood (Negative) Urine Nitrite (Negative) Urine Bilirubin (Negative) Urine Urobilinogen (Negative) Ur Leukocyte Esterase (Negative) Urine WBC (Auto) (0-5) /hpf Urine RBC (Auto) (0-2) /hpf U Hyaline Cast (Auto) (0-2) /lpf U Epithel Cells (Auto) (0-2) /hpf Urine Bacteria (Auto) (None Seen) Urine Yeast (None Prsent) Blood Parasites ID Blood Type Antibody Screen Crossmatch 06/27/24 06/27/24 06/27/24 Range/Units 07:26 07:24 06:35 WBC 9.95 Cancelled (4.8-10.8) K/ul RBC 2.61 L Cancelled (4.20-5.40) M/uL Hgb 8.3 L Cancelled (12.0-16.0) g/dl Hct 26.3 L Cancelled (37.0-47.0) % MCV 100.8 H Cancelled (80.0-100.0) fL MCH 31.8 Cancelled (25.0-34.0) pg MCHC 31.6 L Cancelled (32.0-36.0) g/dL RDW Std Deviation 71.7 H Cancelled (36.4-46.3) fL RDW Coeff of Vicky 19.4 H Cancelled (11.5-14.5) % Plt Count 108 L Cancelled (130-400) K/uL MPV 10.6 Cancelled (9.4-12.4) fL Immature Gran % (Auto) 7.5 Cancelled % Neut % (Auto) 71.1 Cancelled % Lymph % (Auto) 10.8 Cancelled % Ford % (Auto) 10.1 Cancelled % Eos % (Auto) 0.2 Cancelled % Baso % (Auto) 0.3 Cancelled % Neut # (Auto) 7.08 H Cancelled (1.40-6.50) K/uL Lymph # (Auto) 1.07 L Cancelled (1.20-3.40) K/uL Ford # (Auto) 1.00 H Cancelled (0.11-0.59) K/uL Eos # (Auto) 0.02 Cancelled (0.00-0.50) K/uL Baso # (Auto) 0.03 Cancelled (0.00-0.20) K/uL Immature Gran # (Auto) 0.75 H Cancelled (0.01-0.20) K/uL Absolute Nucleated RBC 0.03 Cancelled (0.00-0.12) K/uL Nucleated RBC % (auto) 0.3 Cancelled % Neutrophils % (Manual) Cancelled % Band Neutrophils % Cancelled Lymphocytes % (Manual) Cancelled % Prolymphocyte % Cancelled Reactive Lymphs % (Man) Cancelled Monocytes % (Manual) Cancelled % Eosinophils % (Manual) Cancelled % Basophils % (Manual) Cancelled Metamyelocytes % (Man) Cancelled % Myelocytes % (Man) Cancelled % Promyelocytes % (Man) Cancelled Blast Cells % (Manual) Cancelled Plasma Cell % (Manual) Cancelled Other Cells % Cancelled Nucleated RBC % Cancelled Neutrophils # (Manual) Cancelled (1.40-6.50) K/uL Band Neutrophils # Cancelled Total Absolute Neuts Cancelled (1.4-6.5) K/uL Lymphocytes # (Manual) Cancelled (1.2-3.4) K/uL Prolymphocyte # Cancelled Reactive Lymphs # Cancelled Total Abs Lymphocytes Cancelled (1.2-3.4) K/uL Monocytes # (Manual) Cancelled (0.11-0.59) K/uL Eosinophils # (Manual) Cancelled (0-0.50) K/uL Basophils # (Manual) Cancelled Metamyelocytes # (Man) Cancelled (0-0) K/uL Myelocytes # (Manual) Cancelled (0-0) K/uL Promyelocytes # (Man) Cancelled Blast Cells # (Man) Cancelled Plasma Cell # (Manual) Cancelled Other Cells # Cancelled Nucleated RBCs # (Man) Cancelled Hypersegmented Neuts Cancelled Hyposegmented Neuts Cancelled Hypogranular Neuts Cancelled Large Granular Lymphs Cancelled # Lrg Granular Lymphs Cancelled Hairy Cells Cancelled Smudge Cells Cancelled Toxic Granulation Cancelled Toxic Vacuolation Cancelled Dohle Bodies Cancelled Kevon Rods Cancelled Platelet Estimate Cancelled Hypogranular Platelets Cancelled Giant Platelets Cancelled Platelet Satelliting Cancelled RBC Morphology Cancelled Polychromasia Cancelled Hypochromasia Cancelled Poikilocytosis Cancelled Basophilic Stippling Cancelled Anisocytosis Cancelled Microcytosis Cancelled Macrocytosis Cancelled Spherocytes Cancelled Pappenheimer Bodies Cancelled Sickle Cells Cancelled Target Cells Cancelled Tear Drop Cells Cancelled Ovalocytes Cancelled Stomatocytes Cancelled Sullivan-Electra Bodies Cancelled Echinocytes Cancelled Acanthocytes (Spur) Cancelled Rouleaux Cancelled RBC Agglutinates Cancelled Schistocytes Cancelled Sezary Cell Cancelled VBG pH (7.36-7.41) VBG pCO2 (38-50) mmHg VBG pO2 mmHg VBG HCO3 mmol/L VBG O2 Saturation % VBG Base Excess mEq/L Sodium 133 L (136-145) mmol/L Potassium 5.1 D (3.5-5.1) mmol/L Chloride 103 (98-107) mmol/L Carbon Dioxide 23 (21-32) mmol/L Anion Gap 7 (3-11) BUN 31 H (6-23) mg/dl Creatinine 0.89 (0.6-1.2) mg/dl Est Cr Clr Drug Dosing 53.8 ml/min Est GFR ( Amer) 73.5 ml/min Est GFR (Non-Af Amer) 63.4 ml/min BUN/Creatinine Ratio 34.8 H (10-20) Glucose 141 H (70-99(Fasting)) mg/dl POC Glucose 83 (70-99) mg/dl Estimat Average Glucose mg/dl Hemoglobin A1c (4.5-5.6) % Calcium 7.8 L (8.6-10.3) mg/dl Ionized Calcium (1.12-1.32) mmol/L Phosphorus 2.2 L (2.5-4.9) mg/dl Magnesium 2.1 (1.7-2.4) mg/dl Total Bilirubin (0.2-1.0) mg/dl Direct Bilirubin (0-0.2) mg/dl AST (13-39) U/L ALT (7-52) U/L Alkaline Phosphatase (34-104) U/L Ammonia (18-72) umol/L Total Protein (6.0-8.3) gm/dl Albumin (3.4-5.0) gm/dl Globulin (2.5-4.0) gm/dl Albumin/Globulin Ratio (0.9-2) Triglycerides (0-150) mg/dl TSH (0.300-4.500) uIu/ml Cortisol AM Sample (6.2-22.6) mcg/dl Urine Color Urine Appearance (Clear) Urine pH (4.5-7.5) Ur Specific [place] (1.000-1.030) Urine Protein (Negative) Urine Glucose (UA) (Negative) Urine Ketones (Negative) Urine Blood (Negative) Urine Nitrite (Negative) Urine Bilirubin (Negative) Urine Urobilinogen (Negative) Ur Leukocyte Esterase (Negative) Urine WBC (Auto) (0-5) /hpf Urine RBC (Auto) (0-2) /hpf U Hyaline Cast (Auto) (0-2) /lpf U Epithel Cells (Auto) (0-2) /hpf Urine Bacteria (Auto) (None Seen) Urine Yeast (None Prsent) Blood Parasites ID Cancelled Blood Type Antibody Screen Crossmatch 06/26/24 06/26/24 06/26/24 Range/Units 20:00 17:15 16:25 WBC 11.41 H (4.8-10.8) K/ul RBC 2.31 L (4.20-5.40) M/uL Hgb 7.4 L (12.0-16.0) g/dl Hct 23.5 L (37.0-47.0) % MCV 101.7 H (80.0-100.0) fL MCH 32.0 (25.0-34.0) pg MCHC 31.5 L (32.0-36.0) g/dL RDW Std Deviation 71.2 H (36.4-46.3) fL RDW Coeff of Vicky 19.6 H (11.5-14.5) % Plt Count 108 L (130-400) K/uL MPV 10.4 (9.4-12.4) fL Immature Gran % (Auto) 8.3 % Neut % (Auto) 71.0 % Lymph % (Auto) 10.8 % Ford % (Auto) 9.3 % Eos % (Auto) 0.3 % Baso % (Auto) 0.3 % Neut # (Auto) 8.11 H (1.40-6.50) K/uL Lymph # (Auto) 1.23 (1.20-3.40) K/uL [place] # (Auto) 1.06 H (0.11-0.59) K/uL Eos # (Auto) 0.03 (0.00-0.50) K/uL Baso # (Auto) 0.03 (0.00-0.20) K/uL Immature Gran # (Auto) 0.95 H (0.01-0.20) K/uL Absolute Nucleated RBC 0.03 (0.00-0.12) K/uL Nucleated RBC % (auto) 0.3 % Neutrophils % (Manual) % Band Neutrophils % Lymphocytes % (Manual) % Prolymphocyte % Reactive Lymphs % (Man) Monocytes % (Manual) % Eosinophils % (Manual) % Basophils % (Manual) Metamyelocytes % (Man) % Myelocytes % (Man) % Promyelocytes % (Man) Blast Cells % (Manual) Plasma Cell % (Manual) Other Cells % Nucleated RBC % Neutrophils # (Manual) (1.40-6.50) K/uL Band Neutrophils # Total Absolute Neuts (1.4-6.5) K/uL Lymphocytes # (Manual) (1.2-3.4) K/uL Prolymphocyte # Reactive Lymphs # Total Abs Lymphocytes (1.2-3.4) K/uL Monocytes # (Manual) (0.11-0.59) K/uL Eosinophils # (Manual) (0-0.50) K/uL Basophils # (Manual) Metamyelocytes # (Man) (0-0) K/uL Myelocytes # (Manual) (0-0) K/uL Promyelocytes # (Man) Blast Cells # (Man) Plasma Cell # (Manual) Other Cells # Nucleated RBCs # (Man) Hypersegmented Neuts Hyposegmented Neuts Hypogranular Neuts Large Granular Lymphs # Lrg Granular Lymphs Hairy Cells Smudge Cells Toxic Granulation Toxic Vacuolation Dohle Bodies Kevon Rods Platelet Estimate Hypogranular Platelets Giant Platelets Platelet Satelliting RBC Morphology Polychromasia Hypochromasia Poikilocytosis Basophilic Stippling Anisocytosis Microcytosis Macrocytosis Spherocytes Pappenheimer Bodies Sickle Cells Target Cells Tear Drop Cells Ovalocytes Stomatocytes Sullivan-Electra Bodies Echinocytes Acanthocytes (Spur) Rouleaux RBC Agglutinates Schistocytes Sezary Cell VBG pH (7.36-7.41) VBG pCO2 (38-50) mmHg VBG pO2 mmHg VBG HCO3 mmol/L VBG O2 Saturation % VBG Base Excess mEq/L Sodium (136-145) mmol/L Potassium (3.5-5.1) mmol/L Chloride (98-107) mmol/L Carbon Dioxide (21-32) mmol/L Anion Gap (3-11) BUN (6-23) mg/dl Creatinine (0.6-1.2) mg/dl Est Cr Clr Drug Dosing ml/min Est GFR ( Amer) ml/min Est GFR (Non-Af Amer) ml/min BUN/Creatinine Ratio (10-20) Glucose (70-99(Fasting)) mg/dl POC Glucose 151 H 151 H (70-99) mg/dl Estimat Average Glucose mg/dl Hemoglobin A1c (4.5-5.6) % Calcium (8.6-10.3) mg/dl Ionized Calcium (1.12-1.32) mmol/L Phosphorus (2.5-4.9) mg/dl Magnesium (1.7-2.4) mg/dl Total Bilirubin (0.2-1.0) mg/dl Direct Bilirubin (0-0.2) mg/dl AST (13-39) U/L ALT (7-52) U/L Alkaline Phosphatase (34-104) U/L Ammonia (18-72) umol/L Total Protein (6.0-8.3) gm/dl Albumin (3.4-5.0) gm/dl Globulin (2.5-4.0) gm/dl Albumin/Globulin Ratio (0.9-2) Triglycerides (0-150) mg/dl TSH (0.300-4.500) uIu/ml Cortisol AM Sample (6.2-22.6) mcg/dl Urine Color Urine Appearance (Clear) Urine pH (4.5-7.5) Ur Specific [place] (1.000-1.030) Urine Protein (Negative) Urine Glucose (UA) (Negative) Urine Ketones (Negative) Urine Blood (Negative) Urine Nitrite (Negative) Urine Bilirubin (Negative) Urine Urobilinogen (Negative) Ur Leukocyte Esterase (Negative) Urine WBC (Auto) (0-5) /hpf Urine RBC (Auto) (0-2) /hpf U Hyaline Cast (Auto) (0-2) /lpf U Epithel Cells (Auto) (0-2) /hpf Urine Bacteria (Auto) (None Seen) Urine Yeast (None Prsent) Blood Parasites ID Blood Type Antibody Screen Crossmatch 06/26/24 06/26/24 06/26/24 Range/Units 11:25 07:14 06:13 WBC 11.98 H (4.8-10.8) K/ul RBC 2.07 L (4.20-5.40) M/uL Hgb 6.9 L* (12.0-16.0) g/dl Hct 21.0 L (37.0-47.0) % MCV 101.4 H (80.0-100.0) fL MCH 33.3 (25.0-34.0) pg MCHC 32.9 (32.0-36.0) g/dL RDW Std Deviation 71.7 H (36.4-46.3) fL RDW Coeff of Vicky 19.5 H (11.5-14.5) % Plt Count 94 L (130-400) K/uL MPV 10.6 (9.4-12.4) fL Immature Gran % (Auto) 9.0 % Neut % (Auto) 70.0 % Lymph % (Auto) 10.4 % Ford % (Auto) 10.2 % Eos % (Auto) 0.2 % Baso % (Auto) 0.2 % Neut # (Auto) 8.40 H (1.40-6.50) K/uL Lymph # (Auto) 1.24 (1.20-3.40) K/uL [place] # (Auto) 1.22 H (0.11-0.59) K/uL Eos # (Auto) 0.02 (0.00-0.50) K/uL Baso # (Auto) 0.02 (0.00-0.20) K/uL Immature Gran # (Auto) 1.08 H (0.01-0.20) K/uL Absolute Nucleated RBC 0.04 (0.00-0.12) K/uL Nucleated RBC % (auto) 0.3 % Neutrophils % (Manual) % Band Neutrophils % Lymphocytes % (Manual) % Prolymphocyte % Reactive Lymphs % (Man) Monocytes % (Manual) % Eosinophils % (Manual) % Basophils % (Manual) Metamyelocytes % (Man) % Myelocytes % (Man) % Promyelocytes % (Man) Blast Cells % (Manual) Plasma Cell % (Manual) Other Cells % Nucleated RBC % Neutrophils # (Manual) (1.40-6.50) K/uL Band Neutrophils # Total Absolute Neuts (1.4-6.5) K/uL Lymphocytes # (Manual) (1.2-3.4) K/uL Prolymphocyte # Reactive Lymphs # Total Abs Lymphocytes (1.2-3.4) K/uL Monocytes # (Manual) (0.11-0.59) K/uL Eosinophils # (Manual) (0-0.50) K/uL Basophils # (Manual) Metamyelocytes # (Man) (0-0) K/uL Myelocytes # (Manual) (0-0) K/uL Promyelocytes # (Man) Blast Cells # (Man) Plasma Cell # (Manual) Other Cells # Nucleated RBCs # (Man) Hypersegmented Neuts Hyposegmented Neuts Hypogranular Neuts Large Granular Lymphs # Lrg Granular Lymphs Hairy Cells Smudge Cells Toxic Granulation Toxic Vacuolation Dohle Bodies Kevon Rods Platelet Estimate Hypogranular Platelets Giant Platelets Platelet Satelliting RBC Morphology Polychromasia 1+ Hypochromasia Poikilocytosis Basophilic Stippling Anisocytosis Present Microcytosis Macrocytosis Present Spherocytes Pappenheimer Bodies Sickle Cells Target Cells Tear Drop Cells 1+ Ovalocytes Stomatocytes Sullivan-Electra Bodies Echinocytes Acanthocytes (Spur) Rouleaux RBC Agglutinates Schistocytes Sezary Cell VBG pH (7.36-7.41) VBG pCO2 (38-50) mmHg VBG pO2 mmHg VBG HCO3 mmol/L VBG O2 Saturation % VBG Base Excess mEq/L Sodium 135 L (136-145) mmol/L Potassium 4.1 (3.5-5.1) mmol/L Chloride 107 (98-107) mmol/L Carbon Dioxide 24 (21-32) mmol/L Anion Gap 4 (3-11) BUN 32 H (6-23) mg/dl Creatinine 0.85 (0.6-1.2) mg/dl Est Cr Clr Drug Dosing 56.3 ml/min Est GFR ( Amer) 77.7 ml/min Est GFR (Non-Af Amer) 67.0 ml/min BUN/Creatinine Ratio 37.6 H (10-20) Glucose 120 H (70-99(Fasting)) mg/dl POC Glucose 155 H 89 (70-99) mg/dl Estimat Average Glucose mg/dl Hemoglobin A1c (4.5-5.6) % Calcium 7.3 L (8.6-10.3) mg/dl Ionized Calcium 1.16 (1.12-1.32) mmol/L Phosphorus 3.0 (2.5-4.9) mg/dl Magnesium 1.8 (1.7-2.4) mg/dl Total Bilirubin (0.2-1.0) mg/dl Direct Bilirubin (0-0.2) mg/dl AST (13-39) U/L ALT (7-52) U/L Alkaline Phosphatase (34-104) U/L Ammonia (18-72) umol/L Total Protein (6.0-8.3) gm/dl Albumin (3.4-5.0) gm/dl Globulin (2.5-4.0) gm/dl Albumin/Globulin Ratio (0.9-2) Triglycerides (0-150) mg/dl TSH (0.300-4.500) uIu/ml Cortisol AM Sample (6.2-22.6) mcg/dl Urine Color Urine Appearance (Clear) Urine pH (4.5-7.5) Ur Specific [place] (1.000-1.030) Urine Protein (Negative) Urine Glucose (UA) (Negative) Urine Ketones (Negative) Urine Blood (Negative) Urine Nitrite (Negative) Urine Bilirubin (Negative) Urine Urobilinogen (Negative) Ur Leukocyte Esterase (Negative) Urine WBC (Auto) (0-5) /hpf Urine RBC (Auto) (0-2) /hpf U Hyaline Cast (Auto) (0-2) /lpf U Epithel Cells (Auto) (0-2) /hpf Urine Bacteria (Auto) (None Seen) Urine Yeast (None Prsent) Blood Parasites ID Blood Type Antibody Screen Crossmatch 06/25/24 06/25/24 06/25/24 Range/Units 20:13 18:06 16:14 WBC (4.8-10.8) K/ul RBC (4.20-5.40) M/uL Hgb (12.0-16.0) g/dl Hct (37.0-47.0) % MCV (80.0-100.0) fL MCH (25.0-34.0) pg MCHC (32.0-36.0) g/dL RDW Std Deviation (36.4-46.3) fL RDW Coeff of Vicky (11.5-14.5) % Plt Count (130-400) K/uL MPV (9.4-12.4) fL Immature Gran % (Auto) % Neut % (Auto) % Lymph % (Auto) % [place] % (Auto) % Eos % (Auto) % Baso % (Auto) % Neut # (Auto) (1.40-6.50) K/uL Lymph # (Auto) (1.20-3.40) K/uL [place] # (Auto) (0.11-0.59) K/uL Eos # (Auto) (0.00-0.50) K/uL Baso # (Auto) (0.00-0.20) K/uL Immature Gran # (Auto) (0.01-0.20) K/uL Absolute Nucleated RBC (0.00-0.12) K/uL Nucleated RBC % (auto) % Neutrophils % (Manual) % Band Neutrophils % Lymphocytes % (Manual) % Prolymphocyte % Reactive Lymphs % (Man) Monocytes % (Manual) % Eosinophils % (Manual) % Basophils % (Manual) Metamyelocytes % (Man) % Myelocytes % (Man) % Promyelocytes % (Man) Blast Cells % (Manual) Plasma Cell % (Manual) Other Cells % Nucleated RBC % Neutrophils # (Manual) (1.40-6.50) K/uL Band Neutrophils # Total Absolute Neuts (1.4-6.5) K/uL Lymphocytes # (Manual) (1.2-3.4) K/uL Prolymphocyte # Reactive Lymphs # Total Abs Lymphocytes (1.2-3.4) K/uL Monocytes # (Manual) (0.11-0.59) K/uL Eosinophils # (Manual) (0-0.50) K/uL Basophils # (Manual) Metamyelocytes # (Man) (0-0) K/uL Myelocytes # (Manual) (0-0) K/uL Promyelocytes # (Man) Blast Cells # (Man) Plasma Cell # (Manual) Other Cells # Nucleated RBCs # (Man) Hypersegmented Neuts Hyposegmented Neuts Hypogranular Neuts Large Granular Lymphs # Lrg Granular Lymphs Hairy Cells Smudge Cells Toxic Granulation Toxic Vacuolation Dohle Bodies Kevon Rods Platelet Estimate Hypogranular Platelets Giant Platelets Platelet Satelliting RBC Morphology Polychromasia Hypochromasia Poikilocytosis Basophilic Stippling Anisocytosis Microcytosis Macrocytosis Spherocytes Pappenheimer Bodies Sickle Cells Target Cells Tear Drop Cells Ovalocytes Stomatocytes Sullivan-Electra Bodies Echinocytes Acanthocytes (Spur) Rouleaux RBC Agglutinates Schistocytes Sezary Cell VBG pH (7.36-7.41) VBG pCO2 (38-50) mmHg VBG pO2 mmHg VBG HCO3 mmol/L VBG O2 Saturation % VBG Base Excess mEq/L Sodium 135 L (136-145) mmol/L Potassium 4.3 (3.5-5.1) mmol/L Chloride 108 H (98-107) mmol/L Carbon Dioxide 21 (21-32) mmol/L Anion Gap 6 (3-11) BUN 34 H (6-23) mg/dl Creatinine 0.87 (0.6-1.2) mg/dl Est Cr Clr Drug Dosing 55.0 ml/min Est GFR ( Amer) 75.5 ml/min Est GFR (Non-Af Amer) 65.2 ml/min BUN/Creatinine Ratio 39.1 H (10-20) Glucose 145 H (70-99(Fasting)) mg/dl POC Glucose 149 H 158 H (70-99) mg/dl Estimat Average Glucose mg/dl Hemoglobin A1c (4.5-5.6) % Calcium 7.3 L (8.6-10.3) mg/dl Ionized Calcium (1.12-1.32) mmol/L Phosphorus 3.4 D (2.5-4.9) mg/dl Magnesium 2.0 (1.7-2.4) mg/dl Total Bilirubin (0.2-1.0) mg/dl Direct Bilirubin (0-0.2) mg/dl AST (13-39) U/L ALT (7-52) U/L Alkaline Phosphatase (34-104) U/L Ammonia (18-72) umol/L Total Protein (6.0-8.3) gm/dl Albumin (3.4-5.0) gm/dl Globulin (2.5-4.0) gm/dl Albumin/Globulin Ratio (0.9-2) Triglycerides (0-150) mg/dl TSH (0.300-4.500) uIu/ml Cortisol AM Sample (6.2-22.6) mcg/dl Urine Color Urine Appearance (Clear) Urine pH (4.5-7.5) Ur Specific [place] (1.000-1.030) Urine Protein (Negative) Urine Glucose (UA) (Negative) Urine Ketones (Negative) Urine Blood (Negative) Urine Nitrite (Negative) Urine Bilirubin (Negative) Urine Urobilinogen (Negative) Ur Leukocyte Esterase (Negative) Urine WBC (Auto) (0-5) /hpf Urine RBC (Auto) (0-2) /hpf U Hyaline Cast (Auto) (0-2) /lpf U Epithel Cells (Auto) (0-2) /hpf Urine Bacteria (Auto) (None Seen) Urine Yeast (None Prsent) Blood Parasites ID Blood Type Antibody Screen Crossmatch 06/25/24 06/25/24 06/25/24 Range/Units 14:13 11:18 08:17 WBC 13.28 H 14.18 H (4.8-10.8) K/ul RBC 2.20 L 2.10 L (4.20-5.40) M/uL Hgb 7.3 L 6.9 L* (12.0-16.0) g/dl Hct 21.7 L 21.1 L (37.0-47.0) % MCV 98.6 100.5 H (80.0-100.0) fL MCH 33.2 32.9 (25.0-34.0) pg MCHC 33.6 32.7 (32.0-36.0) g/dL RDW Std Deviation 67.4 H 69.3 H (36.4-46.3) fL RDW Coeff of Vicky 19.0 H 19.0 H (11.5-14.5) % Plt Count 106 L 89 L (130-400) K/uL MPV 10.1 10.5 (9.4-12.4) fL Immature Gran % (Auto) % Neut % (Auto) % Lymph % (Auto) % Ford % (Auto) % Eos % (Auto) % Baso % (Auto) % Neut # (Auto) (1.40-6.50) K/uL Lymph # (Auto) (1.20-3.40) K/uL Ford # (Auto) (0.11-0.59) K/uL Eos # (Auto) (0.00-0.50) K/uL Baso # (Auto) (0.00-0.20) K/uL Immature Gran # (Auto) (0.01-0.20) K/uL Absolute Nucleated RBC 0.11 0.11 (0.00-0.12) K/uL Nucleated RBC % (auto) 0.8 0.8 % Neutrophils % (Manual) 76 79 % Band Neutrophils % Lymphocytes % (Manual) 8 11 % Prolymphocyte % Reactive Lymphs % (Man) Monocytes % (Manual) 13 1 % Eosinophils % (Manual) % Basophils % (Manual) Metamyelocytes % (Man) 3 6 % Myelocytes % (Man) 3 % Promyelocytes % (Man) Blast Cells % (Manual) Plasma Cell % (Manual) Other Cells % Nucleated RBC % Neutrophils # (Manual) 10.09 H 11.20 H (1.40-6.50) K/uL Band Neutrophils # Total Absolute Neuts 10.09 H 11.20 H (1.4-6.5) K/uL Lymphocytes # (Manual) 1.06 L 1.56 (1.2-3.4) K/uL Prolymphocyte # Reactive Lymphs # Total Abs Lymphocytes 1.06 L 1.56 (1.2-3.4) K/uL Monocytes # (Manual) 1.73 H 0.14 (0.11-0.59) K/uL Eosinophils # (Manual) (0-0.50) K/uL Basophils # (Manual) Metamyelocytes # (Man) 0.40 H 0.85 H (0-0) K/uL Myelocytes # (Manual) 0.43 H (0-0) K/uL Promyelocytes # (Man) Blast Cells # (Man) Plasma Cell # (Manual) Other Cells # Nucleated RBCs # (Man) Hypersegmented Neuts Hyposegmented Neuts Hypogranular Neuts Large Granular Lymphs # Lrg Granular Lymphs Hairy Cells Smudge Cells Toxic Granulation Toxic Vacuolation 1+ Dohle Bodies 1+ 1+ Kevon Rods Platelet Estimate Hypogranular Platelets Giant Platelets Platelet Satelliting RBC Morphology Polychromasia 1+ 1+ Hypochromasia Poikilocytosis Basophilic Stippling Anisocytosis Microcytosis Macrocytosis Spherocytes Pappenheimer Bodies Sickle Cells Target Cells Tear Drop Cells 1+ Ovalocytes Stomatocytes Sullivan-Electra Bodies Echinocytes Acanthocytes (Spur) Rouleaux RBC Agglutinates Schistocytes Sezary Cell VBG pH 7.45 H (7.36-7.41) VBG pCO2 28 L (38-50) mmHg VBG pO2 42 mmHg VBG HCO3 20 mmol/L VBG O2 Saturation 73.6 % VBG Base Excess -3.9 mEq/L Sodium 135 L (136-145) mmol/L Potassium 3.7 D (3.5-5.1) mmol/L Chloride 109 H (98-107) mmol/L Carbon Dioxide 20 L (21-32) mmol/L Anion Gap 6 (3-11) BUN 34 H (6-23) mg/dl Creatinine 0.84 (0.6-1.2) mg/dl Est Cr Clr Drug Dosing 57.0 ml/min Est GFR ( Amer) 78.8 ml/min Est GFR (Non-Af Amer) 68.0 ml/min BUN/Creatinine Ratio 40.5 H (10-20) Glucose 224 H (70-99(Fasting)) mg/dl POC Glucose 177 H (70-99) mg/dl Estimat Average Glucose 105 mg/dl Hemoglobin A1c 5.3 (4.5-5.6) % Calcium 6.9 L (8.6-10.3) mg/dl Ionized Calcium (1.12-1.32) mmol/L Phosphorus 2.1 L (2.5-4.9) mg/dl Magnesium 1.7 (1.7-2.4) mg/dl Total Bilirubin 1.0 (0.2-1.0) mg/dl Direct Bilirubin 0.5 H (0-0.2) mg/dl AST 24 (13-39) U/L ALT 26 (7-52) U/L Alkaline Phosphatase 227 H (34-104) U/L Ammonia (18-72) umol/L Total Protein 4.1 L (6.0-8.3) gm/dl Albumin 1.7 L (3.4-5.0) gm/dl Globulin (2.5-4.0) gm/dl Albumin/Globulin Ratio (0.9-2) Triglycerides (0-150) mg/dl TSH 3.724 (0.300-4.500) uIu/ml Cortisol AM Sample 16.75 (6.2-22.6) mcg/dl Urine Color Urine Appearance (Clear) Urine pH (4.5-7.5) Ur Specific [place] (1.000-1.030) Urine Protein (Negative) Urine Glucose (UA) (Negative) Urine Ketones (Negative) Urine Blood (Negative) Urine Nitrite (Negative) Urine Bilirubin (Negative) Urine Urobilinogen (Negative) Ur Leukocyte Esterase (Negative) Urine WBC (Auto) (0-5) /hpf Urine RBC (Auto) (0-2) /hpf U Hyaline Cast (Auto) (0-2) /lpf U Epithel Cells (Auto) (0-2) /hpf Urine Bacteria (Auto) (None Seen) Urine Yeast (None Prsent) Blood Parasites ID Blood Type Antibody Screen Crossmatch 06/25/24 06/25/24 06/25/24 Range/Units 07:08 01:04 00:47 WBC (4.8-10.8) K/ul RBC (4.20-5.40) M/uL Hgb (12.0-16.0) g/dl Hct (37.0-47.0) % MCV (80.0-100.0) fL MCH (25.0-34.0) pg MCHC (32.0-36.0) g/dL RDW Std Deviation (36.4-46.3) fL RDW Coeff of Vicky (11.5-14.5) % Plt Count (130-400) K/uL MPV (9.4-12.4) fL Immature Gran % (Auto) % Neut % (Auto) % Lymph % (Auto) % Ford % (Auto) % Eos % (Auto) % Baso % (Auto) % Neut # (Auto) (1.40-6.50) K/uL Lymph # (Auto) (1.20-3.40) K/uL Ford # (Auto) (0.11-0.59) K/uL Eos # (Auto) (0.00-0.50) K/uL Baso # (Auto) (0.00-0.20) K/uL Immature Gran # (Auto) (0.01-0.20) K/uL Absolute Nucleated RBC (0.00-0.12) K/uL Nucleated RBC % (auto) % Neutrophils % (Manual) % Band Neutrophils % Lymphocytes % (Manual) % Prolymphocyte % Reactive Lymphs % (Man) Monocytes % (Manual) % Eosinophils % (Manual) % Basophils % (Manual) Metamyelocytes % (Man) % Myelocytes % (Man) % Promyelocytes % (Man) Blast Cells % (Manual) Plasma Cell % (Manual) Other Cells % Nucleated RBC % Neutrophils # (Manual) (1.40-6.50) K/uL Band Neutrophils # Total Absolute Neuts (1.4-6.5) K/uL Lymphocytes # (Manual) (1.2-3.4) K/uL Prolymphocyte # Reactive Lymphs # Total Abs Lymphocytes (1.2-3.4) K/uL Monocytes # (Manual) (0.11-0.59) K/uL Eosinophils # (Manual) (0-0.50) K/uL Basophils # (Manual) Metamyelocytes # (Man) (0-0) K/uL Myelocytes # (Manual) (0-0) K/uL Promyelocytes # (Man) Blast Cells # (Man) Plasma Cell # (Manual) Other Cells # Nucleated RBCs # (Man) Hypersegmented Neuts Hyposegmented Neuts Hypogranular Neuts Large Granular Lymphs # Lrg Granular Lymphs Hairy Cells Smudge Cells Toxic Granulation Toxic Vacuolation Dohle Bodies Kevon Rods Platelet Estimate Hypogranular Platelets Giant Platelets Platelet Satelliting RBC Morphology Polychromasia Hypochromasia Poikilocytosis Basophilic Stippling Anisocytosis Microcytosis Macrocytosis Spherocytes Pappenheimer Bodies Sickle Cells Target Cells Tear Drop Cells Ovalocytes Stomatocytes Sullivan-Electra Bodies Echinocytes Acanthocytes (Spur) Rouleaux RBC Agglutinates Schistocytes Sezary Cell VBG pH (7.36-7.41) VBG pCO2 (38-50) mmHg VBG pO2 mmHg VBG HCO3 mmol/L VBG O2 Saturation % VBG Base Excess mEq/L Sodium (136-145) mmol/L Potassium (3.5-5.1) mmol/L Chloride (98-107) mmol/L Carbon Dioxide (21-32) mmol/L Anion Gap (3-11) BUN (6-23) mg/dl Creatinine (0.6-1.2) mg/dl Est Cr Clr Drug Dosing ml/min Est GFR ( Amer) ml/min Est GFR (Non-Af Amer) ml/min BUN/Creatinine Ratio (10-20) Glucose (70-99(Fasting)) mg/dl POC Glucose 200 H 174 H (70-99) mg/dl Estimat Average Glucose mg/dl Hemoglobin A1c (4.5-5.6) % Calcium (8.6-10.3) mg/dl Ionized Calcium (1.12-1.32) mmol/L Phosphorus (2.5-4.9) mg/dl Magnesium (1.7-2.4) mg/dl Total Bilirubin (0.2-1.0) mg/dl Direct Bilirubin (0-0.2) mg/dl AST (13-39) U/L ALT (7-52) U/L Alkaline Phosphatase (34-104) U/L Ammonia 26.0 (18-72) umol/L Total Protein (6.0-8.3) gm/dl Albumin (3.4-5.0) gm/dl Globulin (2.5-4.0) gm/dl Albumin/Globulin Ratio (0.9-2) Triglycerides (0-150) mg/dl TSH (0.300-4.500) uIu/ml Cortisol AM Sample (6.2-22.6) mcg/dl Urine Color Urine Appearance (Clear) Urine pH (4.5-7.5) Ur Specific [place] (1.000-1.030) Urine Protein (Negative) Urine Glucose (UA) (Negative) Urine Ketones (Negative) Urine Blood (Negative) Urine Nitrite (Negative) Urine Bilirubin (Negative) Urine Urobilinogen (Negative) Ur Leukocyte Esterase (Negative) Urine WBC (Auto) (0-5) /hpf Urine RBC (Auto) (0-2) /hpf U Hyaline Cast (Auto) (0-2) /lpf U Epithel Cells (Auto) (0-2) /hpf Urine Bacteria (Auto) (None Seen) Urine Yeast (None Prsent) Blood Parasites ID Blood Type Antibody Screen Crossmatch 06/24/24 06/24/24 06/24/24 Range/Units 22:14 18:08 12:16 WBC (4.8-10.8) K/ul RBC (4.20-5.40) M/uL Hgb (12.0-16.0) g/dl Hct (37.0-47.0) % MCV (80.0-100.0) fL MCH (25.0-34.0) pg MCHC (32.0-36.0) g/dL RDW Std Deviation (36.4-46.3) fL RDW Coeff of Vicky (11.5-14.5) % Plt Count (130-400) K/uL MPV (9.4-12.4) fL Immature Gran % (Auto) % Neut % (Auto) % Lymph % (Auto) % Ford % (Auto) % Eos % (Auto) % Baso % (Auto) % Neut # (Auto) (1.40-6.50) K/uL Lymph # (Auto) (1.20-3.40) K/uL Ford # (Auto) (0.11-0.59) K/uL Eos # (Auto) (0.00-0.50) K/uL Baso # (Auto) (0.00-0.20) K/uL Immature Gran # (Auto) (0.01-0.20) K/uL Absolute Nucleated RBC (0.00-0.12) K/uL Nucleated RBC % (auto) % Neutrophils % (Manual) % Band Neutrophils % Lymphocytes % (Manual) % Prolymphocyte % Reactive Lymphs % (Man) Monocytes % (Manual) % Eosinophils % (Manual) % Basophils % (Manual) Metamyelocytes % (Man) % Myelocytes % (Man) % Promyelocytes % (Man) Blast Cells % (Manual) Plasma Cell % (Manual) Other Cells % Nucleated RBC % Neutrophils # (Manual) (1.40-6.50) K/uL Band Neutrophils # Total Absolute Neuts (1.4-6.5) K/uL Lymphocytes # (Manual) (1.2-3.4) K/uL Prolymphocyte # Reactive Lymphs # Total Abs Lymphocytes (1.2-3.4) K/uL Monocytes # (Manual) (0.11-0.59) K/uL Eosinophils # (Manual) (0-0.50) K/uL Basophils # (Manual) Metamyelocytes # (Man) (0-0) K/uL Myelocytes # (Manual) (0-0) K/uL Promyelocytes # (Man) Blast Cells # (Man) Plasma Cell # (Manual) Other Cells # Nucleated RBCs # (Man) Hypersegmented Neuts Hyposegmented Neuts Hypogranular Neuts Large Granular Lymphs # Lrg Granular Lymphs Hairy Cells Smudge Cells Toxic Granulation Toxic Vacuolation Dohle Bodies Kevon Rods Platelet Estimate Hypogranular Platelets Giant Platelets Platelet Satelliting RBC Morphology Polychromasia Hypochromasia Poikilocytosis Basophilic Stippling Anisocytosis Microcytosis Macrocytosis Spherocytes Pappenheimer Bodies Sickle Cells Target Cells Tear Drop Cells Ovalocytes Stomatocytes Sullivan-Electra Bodies Echinocytes Acanthocytes (Spur) Rouleaux RBC Agglutinates Schistocytes Sezary Cell VBG pH (7.36-7.41) VBG pCO2 (38-50) mmHg VBG pO2 mmHg VBG HCO3 mmol/L VBG O2 Saturation % VBG Base Excess mEq/L Sodium (136-145) mmol/L Potassium (3.5-5.1) mmol/L Chloride (98-107) mmol/L Carbon Dioxide (21-32) mmol/L Anion Gap (3-11) BUN (6-23) mg/dl Creatinine (0.6-1.2) mg/dl Est Cr Clr Drug Dosing ml/min Est GFR ( Amer) ml/min Est GFR (Non-Af Amer) ml/min BUN/Creatinine Ratio (10-20) Glucose (70-99(Fasting)) mg/dl POC Glucose 134 H 126 H (70-99) mg/dl Estimat Average Glucose mg/dl Hemoglobin A1c (4.5-5.6) % Calcium (8.6-10.3) mg/dl Ionized Calcium (1.12-1.32) mmol/L Phosphorus (2.5-4.9) mg/dl Magnesium (1.7-2.4) mg/dl Total Bilirubin (0.2-1.0) mg/dl Direct Bilirubin (0-0.2) mg/dl AST (13-39) U/L ALT (7-52) U/L Alkaline Phosphatase (34-104) U/L Ammonia (18-72) umol/L Total Protein (6.0-8.3) gm/dl Albumin (3.4-5.0) gm/dl Globulin (2.5-4.0) gm/dl Albumin/Globulin Ratio (0.9-2) Triglycerides (0-150) mg/dl TSH (0.300-4.500) uIu/ml Cortisol AM Sample (6.2-22.6) mcg/dl Urine Color Yellow Urine Appearance Turbid A (Clear) Urine pH 5.0 (4.5-7.5) Ur Specific [place] 1.018 (1.000-1.030) Urine Protein 1+ H (Negative) Urine Glucose (UA) Negative (Negative) Urine Ketones Negative (Negative) Urine Blood Trace H (Negative) Urine Nitrite Negative (Negative) Urine Bilirubin Negative (Negative) Urine Urobilinogen Negative (Negative) Ur Leukocyte Esterase 3+ H (Negative) Urine WBC (Auto) >50 H (0-5) /hpf Urine RBC (Auto) >20 H (0-2) /hpf U Hyaline Cast (Auto) >20 H (0-2) /lpf U Epithel Cells (Auto) 0-2 (0-2) /hpf Urine Bacteria (Auto) None Seen (None Seen) Urine Yeast Present A (None Prsent) Blood Parasites ID Blood Type Antibody Screen Crossmatch 06/24/24 06/24/24 06/23/24 Range/Units 08:28 03:14 18:35 WBC 14.90 H (4.8-10.8) K/ul RBC 2.81 L (4.20-5.40) M/uL Hgb 9.2 L (12.0-16.0) g/dl Hct 28.0 L (37.0-47.0) % MCV 99.6 (80.0-100.0) fL MCH 32.7 (25.0-34.0) pg MCHC 32.9 (32.0-36.0) g/dL RDW Std Deviation 69.1 H (36.4-46.3) fL RDW Coeff of Vicky 19.2 H (11.5-14.5) % Plt Count 147 (130-400) K/uL MPV 11.0 (9.4-12.4) fL Immature Gran % (Auto) % Neut % (Auto) % Lymph % (Auto) % Ford % (Auto) % Eos % (Auto) % Baso % (Auto) % Neut # (Auto) (1.40-6.50) K/uL Lymph # (Auto) (1.20-3.40) K/uL Ford # (Auto) (0.11-0.59) K/uL Eos # (Auto) (0.00-0.50) K/uL Baso # (Auto) (0.00-0.20) K/uL Immature Gran # (Auto) (0.01-0.20) K/uL Absolute Nucleated RBC 0.22 H (0.00-0.12) K/uL Nucleated RBC % (auto) 1.5 % Neutrophils % (Manual) 71 % Band Neutrophils % Lymphocytes % (Manual) 10 % Prolymphocyte % Reactive Lymphs % (Man) Monocytes % (Manual) 5 % Eosinophils % (Manual) % Basophils % (Manual) Metamyelocytes % (Man) 4 % Myelocytes % (Man) 10 % Promyelocytes % (Man) Blast Cells % (Manual) Plasma Cell % (Manual) Other Cells % Nucleated RBC % Neutrophils # (Manual) 10.58 H (1.40-6.50) K/uL Band Neutrophils # Total Absolute Neuts 10.58 H (1.4-6.5) K/uL Lymphocytes # (Manual) 1.49 (1.2-3.4) K/uL Prolymphocyte # Reactive Lymphs # Total Abs Lymphocytes 1.49 (1.2-3.4) K/uL Monocytes # (Manual) 0.75 H (0.11-0.59) K/uL Eosinophils # (Manual) (0-0.50) K/uL Basophils # (Manual) Metamyelocytes # (Man) 0.60 H (0-0) K/uL Myelocytes # (Manual) 1.49 H (0-0) K/uL Promyelocytes # (Man) Blast Cells # (Man) Plasma Cell # (Manual) Other Cells # Nucleated RBCs # (Man) Hypersegmented Neuts Hyposegmented Neuts Hypogranular Neuts Large Granular Lymphs # Lrg Granular Lymphs Hairy Cells Smudge Cells Toxic Granulation Toxic Vacuolation Dohle Bodies Kevon Rods Platelet Estimate Hypogranular Platelets Giant Platelets Platelet Satelliting RBC Morphology Polychromasia 1+ Hypochromasia Poikilocytosis Basophilic Stippling Anisocytosis Present Microcytosis Macrocytosis Spherocytes Pappenheimer Bodies Sickle Cells Target Cells Tear Drop Cells Ovalocytes Stomatocytes Sullivan-Electra Bodies Echinocytes Acanthocytes (Spur) Rouleaux RBC Agglutinates Schistocytes Sezary Cell VBG pH (7.36-7.41) VBG pCO2 (38-50) mmHg VBG pO2 mmHg VBG HCO3 mmol/L VBG O2 Saturation % VBG Base Excess mEq/L Sodium 134 L (136-145) mmol/L Potassium 4.8 (3.5-5.1) mmol/L Chloride 108 H (98-107) mmol/L Carbon Dioxide 20 L (21-32) mmol/L Anion Gap 6 (3-11) BUN 40 H (6-23) mg/dl Creatinine 0.93 (0.6-1.2) mg/dl Est Cr Clr Drug Dosing 51.5 ml/min Est GFR ( Amer) 69.7 ml/min Est GFR (Non-Af Amer) 60.1 ml/min BUN/Creatinine Ratio 43.0 H (10-20) Glucose 123 H (70-99(Fasting)) mg/dl POC Glucose 123 H 126 H (70-99) mg/dl Estimat Average Glucose mg/dl Hemoglobin A1c (4.5-5.6) % Calcium 7.7 L (8.6-10.3) mg/dl Ionized Calcium (1.12-1.32) mmol/L Phosphorus 2.7 (2.5-4.9) mg/dl Magnesium 2.1 (1.7-2.4) mg/dl Total Bilirubin (0.2-1.0) mg/dl Direct Bilirubin (0-0.2) mg/dl AST (13-39) U/L ALT (7-52) U/L Alkaline Phosphatase (34-104) U/L Ammonia (18-72) umol/L Total Protein (6.0-8.3) gm/dl Albumin (3.4-5.0) gm/dl Globulin (2.5-4.0) gm/dl Albumin/Globulin Ratio (0.9-2) Triglycerides (0-150) mg/dl TSH (0.300-4.500) uIu/ml Cortisol AM Sample (6.2-22.6) mcg/dl Urine Color Urine Appearance (Clear) Urine pH (4.5-7.5) Ur Specific [place] (1.000-1.030) Urine Protein (Negative) Urine Glucose (UA) (Negative) Urine Ketones (Negative) Urine Blood (Negative) Urine Nitrite (Negative) Urine Bilirubin (Negative) Urine Urobilinogen (Negative) Ur Leukocyte Esterase (Negative) Urine WBC (Auto) (0-5) /hpf Urine RBC (Auto) (0-2) /hpf U Hyaline Cast (Auto) (0-2) /lpf U Epithel Cells (Auto) (0-2) /hpf Urine Bacteria (Auto) (None Seen) Urine Yeast (None Prsent) Blood Parasites ID Blood Type Antibody Screen Crossmatch 06/23/24 06/23/24 06/23/24 Range/Units 17:28 12:17 07:13 WBC 12.59 H (4.8-10.8) K/ul RBC 2.11 L (4.20-5.40) M/uL Hgb 6.8 L* (12.0-16.0) g/dl Hct 21.6 L (37.0-47.0) % MCV 102.4 H (80.0-100.0) fL MCH 32.2 (25.0-34.0) pg MCHC 31.5 L (32.0-36.0) g/dL RDW Std Deviation 77.2 H (36.4-46.3) fL RDW Coeff of Vicky 20.6 H (11.5-14.5) % Plt Count 172 (130-400) K/uL MPV 10.5 (9.4-12.4) fL Immature Gran % (Auto) % Neut % (Auto) % Lymph % (Auto) % Ford % (Auto) % Eos % (Auto) % Baso % (Auto) % Neut # (Auto) (1.40-6.50) K/uL Lymph # (Auto) (1.20-3.40) K/uL Ford # (Auto) (0.11-0.59) K/uL Eos # (Auto) (0.00-0.50) K/uL Baso # (Auto) (0.00-0.20) K/uL Immature Gran # (Auto) (0.01-0.20) K/uL Absolute Nucleated RBC 0.10 (0.00-0.12) K/uL Nucleated RBC % (auto) 0.8 % Neutrophils % (Manual) 77 % Band Neutrophils % Lymphocytes % (Manual) 10 % Prolymphocyte % Reactive Lymphs % (Man) Monocytes % (Manual) 4 % Eosinophils % (Manual) 1 % Basophils % (Manual) Metamyelocytes % (Man) 4 % Myelocytes % (Man) 4 % Promyelocytes % (Man) Blast Cells % (Manual) Plasma Cell % (Manual) Other Cells % Nucleated RBC % Neutrophils # (Manual) 9.69 H (1.40-6.50) K/uL Band Neutrophils # Total Absolute Neuts 9.69 H (1.4-6.5) K/uL Lymphocytes # (Manual) 1.26 (1.2-3.4) K/uL Prolymphocyte # Reactive Lymphs # Total Abs Lymphocytes 1.26 (1.2-3.4) K/uL Monocytes # (Manual) 0.50 (0.11-0.59) K/uL Eosinophils # (Manual) 0.13 (0-0.50) K/uL Basophils # (Manual) Metamyelocytes # (Man) 0.50 H (0-0) K/uL Myelocytes # (Manual) 0.50 H (0-0) K/uL Promyelocytes # (Man) Blast Cells # (Man) Plasma Cell # (Manual) Other Cells # Nucleated RBCs # (Man) Hypersegmented Neuts Hyposegmented Neuts Hypogranular Neuts Large Granular Lymphs # Lrg Granular Lymphs Hairy Cells Smudge Cells Toxic Granulation Toxic Vacuolation Dohle Bodies Kevon Rods Platelet Estimate Hypogranular Platelets Giant Platelets Platelet Satelliting RBC Morphology Polychromasia 1+ Hypochromasia Poikilocytosis Basophilic Stippling Anisocytosis Present Microcytosis Macrocytosis Spherocytes Pappenheimer Bodies Sickle Cells Target Cells Tear Drop Cells 1+ Ovalocytes Stomatocytes Sullivan-Electra Bodies Echinocytes Acanthocytes (Spur) Rouleaux RBC Agglutinates Schistocytes Sezary Cell VBG pH (7.36-7.41) VBG pCO2 (38-50) mmHg VBG pO2 mmHg VBG HCO3 mmol/L VBG O2 Saturation % VBG Base Excess mEq/L Sodium 130 L 135 L (136-145) mmol/L Potassium 4.7 D 3.2 L (3.5-5.1) mmol/L Chloride 106 110 H (98-107) mmol/L Carbon Dioxide 18 L 19 L (21-32) mmol/L Anion Gap 6 6 (3-11) BUN 38 H 38 H (6-23) mg/dl Creatinine 0.99 0.99 (0.6-1.2) mg/dl Est Cr Clr Drug Dosing 48.2 48.2 ml/min Est GFR ( Amer) 64.6 64.6 ml/min Est GFR (Non-Af Amer) 55.7 55.7 ml/min BUN/Creatinine Ratio 38.4 H 38.4 H (10-20) Glucose 143 H 168 H (70-99(Fasting)) mg/dl POC Glucose 184 H (70-99) mg/dl Estimat Average Glucose mg/dl Hemoglobin A1c (4.5-5.6) % Calcium 7.7 L 7.2 L (8.6-10.3) mg/dl Ionized Calcium (1.12-1.32) mmol/L Phosphorus 2.3 L 2.2 L (2.5-4.9) mg/dl Magnesium 2.1 1.6 L (1.7-2.4) mg/dl Total Bilirubin 0.5 (0.2-1.0) mg/dl Direct Bilirubin (0-0.2) mg/dl AST 14 (13-39) U/L ALT 26 (7-52) U/L Alkaline Phosphatase 278 H (34-104) U/L Ammonia (18-72) umol/L Total Protein 4.3 L (6.0-8.3) gm/dl Albumin 1.8 L (3.4-5.0) gm/dl Globulin 2.5 (2.5-4.0) gm/dl Albumin/Globulin Ratio 0.7 L (0.9-2) Triglycerides 167 H (0-150) mg/dl TSH (0.300-4.500) uIu/ml Cortisol AM Sample (6.2-22.6) mcg/dl Urine Color Urine Appearance (Clear) Urine pH (4.5-7.5) Ur Specific [place] (1.000-1.030) Urine Protein (Negative) Urine Glucose (UA) (Negative) Urine Ketones (Negative) Urine Blood (Negative) Urine Nitrite (Negative) Urine Bilirubin (Negative) Urine Urobilinogen (Negative) Ur Leukocyte Esterase (Negative) Urine WBC (Auto) (0-5) /hpf Urine RBC (Auto) (0-2) /hpf U Hyaline Cast (Auto) (0-2) /lpf U Epithel Cells (Auto) (0-2) /hpf Urine Bacteria (Auto) (None Seen) Urine Yeast (None Prsent) Blood Parasites ID Blood Type O Positive Antibody Screen NEGATIVE Crossmatch See Detail Diagnostic Findings Chest X-Ray 06/06/24 14:38 XR chest 1V portable CLINICAL HISTORY: Sepsis. COMPARISON STUDY: No previous studies for comparison. FINDINGS: A right internal jugular [id number] is in place. Lung volumes are normal. Lungs are clear. There is no pneumothorax or pleural effusion. Cardiac size is normal. Mediastinal contours are normal. There is no evidence for pulmonary edema. IMPRESSION: No acute cardiopulmonary findings. ACT 112: Negative or not required by law. Electronically signed by: Jerel Jones M.D. 06/06/2024 4:51 PM Abdomen/Pelvis CT 06/06/24 16:21 CT abd pelvis wo con CLINICAL HISTORY: worsening abd pain w/ cancer not eating or drinkin TECHNIQUE: Helical axial images of the abdomen and pelvis were obtained. Automated dose lowering techniques and/or adjustment according to patient size were utilized for this exam. This exam was performed without intravenous contrast. CT DOSE: 972.47 mGy.cm COMPARISON: Comparison is made to CT abdomen pelvis 12/03/2022 FINDINGS: Lower chest: No acute abnormality. Liver: Unremarkable. No focal lesions are seen. Gallbladder and biliary tree: Postsurgical change is seen with a complex cyst mass remaining in the gallbladder fossa. No biliary seen with a common bile duct stent in place. Pancreas: Unremarkable, no focal lesions. Spleen: Unremarkable. Adrenals: Unremarkable. Kidneys and ureters: Renal cysts are seen. Bladder: Limited evaluation due to underdistention. Reproductive organs: Incidental note is made of calcified fibroid. Bowel: Diverticulosis is seen without evidence of diverticulitis. There is prominence of the cecum with a transition point near the hepatic flexure. Of note, there is no clear fat plane separation between the hepatic flexure and the gallbladder fossa density. There is also prominence of multiple loops of terminal ileum measuring up to 36 mm. Gastroenteric drain is seen. Lymph nodes Retroperitoneal: Unremarkable. Pelvic: Unremarkable. Mesenteric: Unremarkable. Peritoneum: Normal. Vessels: Unremarkable. Abdominal wall: Unremarkable. Bones: Degenerative changes in the visualized spine. IMPRESSION: 1. There is enlargement of the cecum and terminal ileum with normal caliber bowel at the transverse and descending colon. There is likely involvement of the hepatic flexure with the gallbladder mass. 2. Decreased size of complex mass in the gallbladder. Interval placement of gastroenteric drain and biliary stents. 3. Additional findings as above. ACT 112: Negative or not required by law. Electronically signed by: Benji Fernandez M.D. 06/06/2024 5:32 PM KUB X-Ray 06/08/24 11:50 KUB HISTORY: Acute generalized abdominal pain with nausea abd pain, nausea COMPARISON: CT 06/06/2024 FINDINGS: Common bile duct stent. Metallic device projects over the stomach. There are numerous dilated air-filled loops of small bowel measuring up to 3.2 cm. No renal calculi. No ureteral calculi. No pneumoperitoneum or pneumatosis. No fracture. IMPRESSION: Persistent small bowel dilation suggestive of obstruction. On yesterday's CT abdomen and pelvis study a partial large and small bowel obstruction is suggested with transition point at the hepatic flexure secondary to the infiltr ative avis hepatis mass. ACT 112: Negative or not required by law. The above report was generated using voice recognition software. It may contain grammatical, syntax or spelling errors. Electronically signed by: Meng Lester M.D. 06/08/2024 1:[address] 06/15/24 16:25 CT OF THE HEAD WITHOUT CONTRAST CLINICAL HISTORY: Altered mental status. COMPARISON STUDY: Head CT August 01, 2016. CT DOSE: 625.8 mGy.cm TECHNIQUE: Helical axial images of the head were obtained without IV contrast. Automated exposure control was utilized for the study. A dose lowering technique was utilized adhering to the principles of ALARA. FINDINGS: No acute intracranial hemorrhage, midline shift or mass effect is present. The ventricular system is unremarkable. The basal cisterns are patent. No extra-axial collections are present. There are no findings to suggest acute dural sinus thrombosis or acute territorial infarct. No significant calvarial ab normalities are present. A small mucous retention cyst within the left maxillary sinus is incidentally noted. IMPRESSION: No acute intracranial findings. ACT 112: Negative or not required by law. Electronically signed by: Jerel Jones M.D. 06/15/2024 4:53 PM Brain MRI 06/16/24 08:37 MR brain wo/w con CLINICAL HISTORY: continued encephalpathy iso malignancy TECHNIQUE: Multiplanar and multisequence MR images of the brain were obtained prior to and following administration of gadolinium contrast. Comparison: Comparison is made to CT head 06/15/2024 FINDINGS: No abnormal restricted diffusion is identified. Foci of T2 and FLAIR hyperintensity are noted in the paraventricular areas consistent with chronic small vessel ischemic disease. Ex vacuo ventriculomegaly and sulcal enlargement is noted compatible with diffuse volume loss. No mass or abnormal enhancement is seen. There is no mass effect or midline shift. There is no evidence of acute intraparenchymal hemorrhage. No extra axial fluid collections are seen. The corpus callosum, pituitary gland, and cerebellar tonsils appear grossly unremarkable. Flow voids of the major intracranial arterial vessels are identified. Sinus mucosal thickening is seen most prominent in the left maxillary sinus. IMPRESSION: No acute abnormality and in particular no evidence of metastatic disease. ACT 112: Negative or not required by law. Electronically signed by: Benji Fernandez M.D. 06/16/2024 1:18 PM KUB X-Ray 06/18/24 08:31 XR KUB/Abdomen 1 view CLINICAL HISTORY: abdominal discomfort, recent LBO TECHNIQUE: 1 view of the abdomen was obtained. Comparison: Comparison is made to abdomen radiograph 06/08/2024 FINDINGS: Tips shunt is seen. The osseous structures are grossly unremarkable. Multiple gas dilated loops of small bowel measure up to 44 mm. Large bowel is underdistended. IMPRESSION: Multiple gas dilated loops small bowel are concerning for obstruction. Findings are progressed from prior exam. The large bowel is underdistended. ACT 112: Negative or not required by law. Electronically signed by: Benji Fernandez M.D. 06/18/2024 12:16 PM Abdomen/Pelvis CT 06/21/24 16:[address] WITHOUT CONTRAST CT DOSE: 1213.01 mGy.cm HISTORY: Acute generalized abdominal pain abdominal pain, Gallbladder CA TECHNIQUE: Multiaxial CT images of the abdomen and pelvis were performed without contrast. A dose lowering technique was utilized adhering to the principles of ALARA. COMPARISON STUDY: 06/06/2024, June 06, 2023 FINDINGS: Decreased attenuation of the cardiac blood pool suggestive of anemia. Trace pericardial effusion. Biopsy clips of the left breast. Anasarca. Partially imaged [id number] catheter is in the right atrium. Clear lung bases. No pneumatosis or pneumoperitoneum. Study is overall limited without contrast. Cortical thinning of the kidneys. Bilateral renal sinus cysts redemonstrated without definite hydronephrosis. Compressed urinary bladder with Joyner catheter. Fibroid uterus. The unenhanced spleen is unchanged with diminutive morphology. Moderately atrophic pancreas. Unremarkable adrenal glands. Hepatic steatosis with mobility. A common bile duct stent is in place, distal tip terminating within the duodenum. This is air and partially debris-filled. There is a heterogeneous mass again seen within the avis hepatis and expected location of the gallbladder measuring approximately 4.6 x 3.1 cm containing central hyperdensities in adjace nt inflammatory stranding. There is abutment with probable involvement of the adjacent distal stomach, duodenum and hepatic flexure which was also noted on the prior studies. There is pathologic circumferential wall thickening of the hepatic flexure with transition narrowing. Surgical device is again noted extending from the stomach into adjacent duodenum. Small volume abdominal pelvic ascites. Decompressed sigmoid colon with circumferential wall thickening. There is abnormal twisting of the right lower quadrant mesentery which is new from 06/06/2024. This involves the ascending and transverse colon, image 200 series 3. The narrowing at the hepatic flexure results in a high-grade large and small bowel obstruction with distended and fluid-filled cecum. Distended and fluid- filled abscess of small bowel include ileum measuring up to 5.3 cm with circumferential wall thickening. The appendix is fluid-filled measuring up to 8 mm. Acute appendicitis considered unlikely. L2 superior endplate compression deformity without retropulsion is unchanged. No acute fracture identified. IMPRESSION: 1. 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 This mass is again noted involving the adjacent distal stomach, duodenum and hepatic flexure. 2. There is tethering of the hepatic flexure from the aforementioned avis hepatis mass and there is now an internal hernia within the right lower quadrant mesentery resulting in progressive worsening of the small bowel obstruction which is now high-grade involving the ascending colon and small bowel. Urgent surgical consultation is needed. 3. Several loops of small bowel demonstrates circumferential wall thickening which may represent ischemia. No pneumatosis, pneumoperitoneum or portal venous gas identified. 4. Common bile duct stent in place with pneumobilia confirming stent patency. 5. Additional findings as above. ACT 112: Negative or not required by law. The above report was generated using voice recognition software. It may contain grammatical, syntax or spelling errors. Electronically signed by: Meng Lester M.D. 06/21/2024 6:04 PM KUB X-Ray 06/21/24 19:51 KUB HISTORY: Status post placement of enteric tube new NGT placement verification COMPARISON: CT abdomen and pelvis of same day FINDINGS: Right IJ Jbyqob-t-Mpht catheter appears unchanged. Distal tip of enteric tube coiled upon itself and is projected superiorly within the region of the distal esophagus. The majority of the abdomen is excluded from the sarcr-yl-cyht. The imaged lung bahena appear clear. IMPRESSION: Distal tip of enteric tube projects over the distal esophagus. Repositioning with follow-up imaging is needed. ACT 112: Negative or not required by law. The above report was generated using voice recognition software. It may contain grammatical, syntax or spelling errors. Electronically signed by: Meng Lester M.D. 06/22/2024 7:27 AM KUB X-Ray 06/21/24 22:11 KUB CLINICAL HISTORY: repeat NGT placement- after advancement COMPARISON STUDY: CT of the abdomen and pelvis and KUB performed earlier today. FINDINGS: Right sided Cdplex-i-Kijr is in place. Nasogastric tube is coiled within the stomach. Tip projects over the gastric cardia. There is no pn eumothorax or pleural effusion. No consolidation. Pulmonary vascularity is normal. Endoscopic stent within the stomach is partially imaged. IMPRESSION: 1. Nasogastric tube coiled within the stomach. The tip projects over the gastric cardia. 2. No acute cardiopulmonary findings. ACT 112: Negative or not required by law. Electronically signed by: Jerel Jones M.D. 06/22/2024 6:39 AM Small Bowel X-Ray 06/23/24 08:30 FL small bowel follow through CLINICAL HISTORY: Evaluate for small bowel obstruction. COMPARISON STUDY: KUB 06/21/2024. Abdomen and pelvis CT 06/21/2024. FLUOROSCOPY TIME: None. FLUOROSCOPY IMAGES: None. FINDINGS: 5 overhead images of the abdomen and pelvis were submitted for review. Personnel Quality Assurance Auditor image demonstrates a nasogastric tube within the stomach. As a metallic common bile duct stent noted. There is also metallic gastrojejunostomy stent. Mildly dilated gas-filled loops of small bowel are seen throughout the abdomen. Gas and stool seen within the mildly distended proximal colon. A total of 600 cc of diluted Optiray 320 was injected through the indwelling NG tube. Contrast is seen within the stomach but does not extend into the duodenum likely due to the patient's obstructing mass at this location. However, the contrast extends through the patent gastrojejunostomy stent and into the small bowel. The contras t reached the colon at 30 minutes. Therefore, no evidence for bowel obstruction. IMPRESSION: 1. Mildly dilated loops of small bowel without evidence for an obstruction. This may represent a mild ileus. 2. Contrast extends through the patent gastrojejunostomy stent . No contrast is seen within the duodenum likely due to the obstructing mass at the avis hepatis seen on the prior CT. ACT 112: Negative or not required by law. Electronically signed by: Jose Tavarez M.D. 06/23/2024 10:24 AM KUB X-Ray 06/24/24 06:00 KUB HISTORY: Acute generalized abdominal pain eval bowel/gas pattern and passage of contrast COMPARISON: Small bowel follow-through 06/23/2024, CT 06/21/2024 FINDINGS: Gastrojejunostomy stent. Common bile duct stent. Dilated loops of small bowel are contrast filled measuring up to approximately 4.8 cm. Contrast also within the large bowel. No renal calculi. No ureteral calculi. No pneumoperitoneum or pneumatosis. No fracture. IMPRESSION: Dilated contrast-filled loops of bowel are redemonstrated suggestive of an ileus versus partial obstruction. Follow-up recommended. ACT 112: Negative or not required by law. The above report was generated using voice recognition software. It may contain grammatical, syntax or spelling errors. Electronically signed by: Meng Lester M.D. 06/24/2024 8:[address] 06/24/24 21:53 Exam(s): CT HEAD Without Contrast EXAM: CT Head Without Intravenous Contrast CLINICAL HISTORY: Reason for exam: lethargy, eliquis. TECHNIQUE: Axial computed tomography images of the head/brain without intravenous contrast. Automated exposure control was utilized for the study. A dose lowering technique was utilized adhering to the principles of ALARA. COMPARISON: Prior brain MRI from June 16, 2024. FINDINGS: Brain: Unremarkable. No hemorrhage. No significant white matter disease. No edema. Ventricles: Moderate ventriculomegaly. Bones/joints: Unremarkable. No acute fracture. Soft tissues: Unremarkable. Sinuses: Unremarkable as visualized. No acute sinusitis. Mastoid air cells: Unremarkable as visualized. No mastoid effusion. IMPRESSION: No evidence of acute intracranial pathology. Electronically signed by: Lory Chairez MD 06/25/24 01:47 AM KUB X-Ray 06/29/24 10:45 KUB CLINICAL HISTORY: Abdominal distention. FINDINGS: AP, portable, supine abdominal radiograph is compared to study dated 06/24/2024 and correlated with abdominal CT dated 06/21/2024. A common bile duct stent is seen in the right upper quadrant. The gastrojejunostomy stent is seen in the left upper quadrant. There is persistent marked gaseous distention of the small bowel loops, which measure up to 5 cm in diameter. There is residual enteric contrast within the distal small bowel and the markedly dilated right colon. There is a small amount of contrast within the relatively decompressed left colon. When correlated with the prior CT scan, the appearance favors a right-sided colonic obstruction. No evidence of intraperitoneal free-air is seen on this supine image. No abnormal abdominal calcifications are identified. The skeletal structures are osteopenic and appear intact. IMPRESSION: 1. Findings favor a right-sided colonic obstruction as above. 2. A small amount of enteric-contrast has reached the decompressed left colon. 3. Postsurgical changes as above. Dictated: 06/29/2024 11:08 AM Transcribed: 06/29/2024 11:21 AM Diego [id number] [email or web address] Electronically signed by: Wally Storey M.D. 06/29/2024 11:34 AM KUB X-Ray 06/29/24 16:52 KUB CLINICAL HISTORY: Enteric tube placement. FINDINGS: An AP, portable, upright view of the lower chest and upper abdomen is compared to study performed earlier the same day 06/29/2024. Correlation is made to abdominal CT dated 06/21/2024. An enteric tube has been placed. The tip projects below the diaphragm over the mid stomach. A right subclavian central venous infusion port is partially imaged. A common bile duct stent and a gastrojejunostomy stent are seen in the upper abdomen. There is evidence of persistent small bowel obstruction. No intraperitoneal free air is seen below the diaphragm. The lung bases are clear as visualized noting dependent atelecta sis. IMPRESSION: 1. An enteric tube has been placed as above. 2. Persistent bowel obstruction. Electronically signed by: Wally Storey M.D. 06/29/2024 5:45 PM PG Care Time/CCT Total # of Minutes Spent Total Time Spent with Patient: Total time spent is greater than 50% in coordination of care (as documented) at patient's floor/unit and/or counseling patient: I spent 125 minutes overall addressing this very complex case: 25 min in medical data review/discussion with referring provider(s) and/or preparation for the visit incl OSH data review, MEDL Mobile EMRLink review 15 min in direct interaction with the patient/exam 50 min in Advance Care Planning/Goals of Care discussions as detailed above in note (must be >16min) 15 min in subsequent review and synthesis of assessment and plan 20 min communicating with other providers regarding the patient's case: primary tea, oncology, nursing Advanced Care Planning 15597 Advanced Care Planning 30 Min 97344 Advanced Care Planning Additional 30 [place] [address] IN/OBS CONSULT LVL 5,80M (25 - SIGNIFICANT, SEPARATELY IDENTIFIABLE ) Patient Type New History Comprehensive Exam Comprehensive Medical Decision Making High Complexity Diagnoses Altered mental status R41.82 Cancer related pain G89.3 Advanced care planning/counseling discussion Z71.89 Palliative care by specialist Z51.5 Lethargy R53.83 Small bowel obstruction K56.609 Encephalopathy acute G93.40 Chemotherapy induced neutropenia D70.1; T45.1X5A Adenocarcinoma of gallbladder C23 Acute kidney injury superimposed on CKD N17.9; N18.9 Malignant neoplasm of upper-outer quadrant of left breast in female, estrogen receptor positive C50.412; Z17.0 Estrogen receptor status: positive History of DVT (deep vein thrombosis) Z86.718 Additional Codes Advanced Care Planning - 09522 Advanced Care Planning 30 Min: 83037 Advanced Care Planning 30 Min ([id number]) Advanced Care Planning - 65602 Advanced Care Planning Additional 30 Min: 35586 Advanced Care Planning Additional 30 Min ([id number])
[2024-06-30] MEDS: INSULIN ASPART PER UNIT CHARGE SC SCH (00:27)
[2024-06-30 07:54] LABS: Hematocrit (blood only) 22.4 % (37.0-47.0); Hemoglobin 7.2 g/dl (12.0-16.0); Mean Corpuscular Hemoglobin 32.3 pg (25.0-34.0); Mean Corpuscular Hgb Conc 32.1 g/dL (32.0-36.0); Mean Corpuscular Volume 100.4 fL (80.0-100.0); Nucleated RBC # (auto) 0.04 K/uL (0.00-0.12); Nucleated RBC % (auto) 0.5 %; Platelet Count 163 K/uL (130-400); RDW Coefficient of Variation 18.1 % (11.5-14.5); RDW Standard Deviation 66.9 fL (36.4-46.3); Red Blood Count 2.23 M/uL (4.20-5.40); White Blood Count 7.93 K/ul (4.8-10.8)
[2024-06-30 08:06] LABS: Calcium 7.9 mg/dl (8.6-10.3); Magnesium 2.1 mg/dl (1.7-2.4); Phosphorus 3.8 mg/dl (2.5-4.9); Potassium 4.3 mmol/L (3.5-5.1)
[2024-06-30 08:28] LABS: Basophils # (auto) 0.02 K/uL (0.00-0.20); Basophils % (auto) 0.3 %; Dohle Bodies 1+; Eosinophils # (auto) 0.04 K/uL (0.00-0.50); Eosinophils % (auto) 0.5 %; Immature Granulocytes # (auto) 0.46 K/uL (0.01-0.20); Immature Granulocytes % (auto) 5.8 %; Lymphocytes # (auto) 1.69 K/uL (1.20-3.40); Lymphocytes % (auto) 21.3 %; Monocytes # (auto) 0.78 K/uL (0.11-0.59); Monocytes % (auto) 9.8 %; Neutrophils # (auto) 4.94 K/uL (1.40-6.50); Neutrophils % (auto) 62.3 %; Polychromasia 1+
[2024-06-30 08:40] LABS: BUN Creatinine Ratio 47.1 (10-20); Creatinine Clr Calc Pharmacy 56.3 ml/min; Est GFR (African American) 77.7 ml/min
[2024-06-30] MEDS ORDERED: dexAMETHasone**PF** 10 MG/ML VIAL IV SCH (09:00)
[2024-06-30] MEDS: dexAMETHasone 6 MG in SYRINGE 0 ML IV SCH (09:02)
--- NOTE | 2024-06-30 09:11 | Hospitalist Progress Note ---
Date of Service June 30, 2024 Assessment & Plan (1) Acute kidney injury superimposed on CKD: (2) Elevated lactic acid level: (3) Acute hyponatremia: (4) Adenocarcinoma of gallbladder: (5) History of DVT (deep vein thrombosis): (6) Anxiety: Plan: Ms. 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 Patient found to have bowel obstruction. This bowel obstruction was management conservatively. Surgery signed off--stating that surgical intervention will only be pursued in an emergent situation. GI evaluated patient and spoke to Dr Morris, who placed stent. The concern of eroding tumor may be contributing to occult anemia. From 06/17 to 06/18, patient with more alertness and ability to participate in exam. Attempting to eat more as able. Noted that liver enzymes are uptrending and given vague discomfort will order KUB to start to assess obstruction and will consider repeat CT ABD/P contingent on trend of LFTS. On 06/19, it was expressed to that patients medical condition is tenuous. That regardless of "where" she discharges it is hard to say when the recurrence of symptoms may come and if/when she may come back.. Expressed need for prompt Onc follow up to establish plan. From 06/21 to 06/27, patient developed recurrence of abdominal pain, CT abdomen and pelvis revealing small bowel obstruction with mesenteric hernia, and large bowel obstruction in the hepatic flexure, secondary to tethered gallbladder mass. This was managed with conservative measures and small bowel follow through confirmed resolution. However, patient with marked lethargy and fluctuating delirium. patient remains on PPN due to poor po intake. Discussion was had with Dr. Christie--requested encounter with family to discuss treatment options given complicated and prolonged course in hospital. Patient's states Dr. Christie spoke with him and his daughter on 06/28--stating something to the effect that "she has to get through this to get to the clinic." Concern for looming reobstruction, will start management for malignant bowel obstruction. After thoughtful conversation with Palliative and , plan to continue 5 day course of IV dexamethasone. Discussed case with Dr Montenegro over the phone who will discuss possible diverting ileostomy with Dr. Garcia. Patient is a high risk, however, this procedure could provide bridge for home. Patient likely to require blood transfusion in coming days given slow downtrend in hgb. #Acute toxic metabolic encephalopathy *fluctuating likely multifactorial--chronic leukoencephalopathy, delirium 2/2 chronic illne ss, malnutrition patient again developed progressive lethargy over the weekend Extensive workup including CT head, VBG, ammonia, TSH, cortisol, and infectious workup repeated-all unrevealing Neurology service reconsulted, does not recommend any other testing at this point Scopolamine patch discontinued Discontinued benadryl 2/2 lethargy Encourage delirium precautions and sleep hygiene Continue to monitor closely #Malignant Bowel Obstruction #Small bowel Obstruction #Large Bowel Obstruction CT adb/pelvis noting transition point suggestive of obstruction Follow up KUB noting persistence of bowel obstruction Pt intially NPO, IV fluids, IV antiemetics, IV pain meds General surgery consulted, appreciate recs: no surgical intervention GI: no further stenting; conservative management Recurrent obstruction iso malignancy with recurrence of abdominal pain 06/16, CT abdomen and pelvis revealing small bowel obstruction with mesenteric hernia, and large bowel obstruction in the hepatic flexure, secondary to tethered gallbladder mass -PPN started -Poor intake, encouraged home megace -06/29, abdominal bloat/distention -Will trial Dexamethsone for MBO, continue IV 6mg qd for 5 days (11/08) - agreeable to palliative care consult given need for optimizing symptomatic control v transitioning to GoC, difficult to broach conversation. NGT placed on 06/29 with notable feculent output Surgery consulted: possible diverting ileostomy, to be further discussed in coming week #Acute on chronic Anemia Hgb <7 on 06/11 s/p transfusion 1U pRBCs Holding home eliquis at this time FOBT POSITIVE on 06/23, Hemoglobin 6.8 Likely upper GI source, in light of NG tube, Eliquis use s/p 1 UPRBC Monitor hemoglobin Continue Protonix IV twice daily Holding Eliquis for down trending Hgb Will continue heparin 2/2 risk for DVT -Discuss IVC filter placement with Vascular especially ? for upcoming surgery #Transaminitis #Adenocarcinoma of gallbladder Last FOLFOX treatment 05/[address] Ginny; transitioned to Dr. Christie Continue Megace 06/08- patient's family requested 5FU reversal, but not warranted at this time per Oncology As above GI consult for further recs per General Surgery. repeat CMP in am Family hopeful for a "treatment" and ways to get patient "out and to the clinic" -Discussing that this is complicated 2/2 to recurrent obstruction Manage conservatively as above #Chemotherapy induced Neutropenia *resolved #Lactic acidosis iso obstruction/dehydration Possible sepsis r/o Pt with progressing neutropenia, in the setting of recent chemotherapy Lactate initially 4.4 on admission ->normalized to 2.0 with fluids Chest XRAY with no acute infection UA unremarkable respiratory testing negative MRSA nares negative Blood Cx x1 set NGTD. 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 Supervisor Shipping/Oncologist Dr Christie on 06/08, s/p neupogen 480 mcg subcu for neutropenia for 3 days Need prompt OP Onc follow up given patient's desire for pursuing further treatment #EUGENE superimposed on CKD *resolved 2/2 decreased oral intake/possible infection following chemo tx 05/30 Creatinine 2.36 on admission (previously 1.7 eight days prior) CTM #Generalized weakness #Hyponatremiaresolved #Hypernatremia Na 129 on admission Likely in setting of poor PO intake Noted improvement with fluids CTM trend BMP #Hypokalemia #Hypocalcemia #Hypophosphatemia Replete as needed ionized calcium in am (corrected for albumin is normal) replacement underway #Malnutrition Likely in setting of above Tracer [employer] Section Supervisor consult PPN on going #H/o DVT Eliquis held for SBO, possible emergency procedures continue heparin sq May need to discuss IVC filter if vascular would consider #HTN (hypertension) Continue atenolol #History of breast cancer S/p left partial mastectomy, XRT, 5 years of tamoxifen completed in August 2022 #Restless legs syndrome (RLS) Clonazepam HS PRN #Acute respiratory alkalosis secondary metabolic alkalosis resolved #Diarrhea improved Gi losses likely etiology of metabolic alkalosis Resp alkalosis -MRI negative for clear central cause -Ammonia 43 -No pain/anxiety contributing to tachypnea Diet: regular, PPN DVT Ppx: Eliquis held, cont sq Heparin on hold Code status: FULL PCP: Loreta Dispo: pending Admission and Anticipated Discharge Date Admission Date: June 06, 2024 Subjective NAEO Notable output from NGT Patient awakens easily, states abdominal pain much improved. Physical Exam Constitutional: WD/WN, vitals as above Respiratory: normal respiratory effort, lungs clear to auscultation Cardiovascular: RRR, no murmur, no edema Gastrointestinal (Abdomen): softer than day prior, active bowel sounds audible with out auscultation Neurologic: PERRL, EOMI, accommodation nl, no face palsy, no dysarthria (alert to self and in hospital) Results & Data Results & Data Vital Signs (Past 12 Hours) Vital Signs Temp Pulse Pulse Resp BP Pulse Ox O2 Del Method 06/30/24 07:33 36.5 C 92 H 18 121/82 99 Room Air 06/30/24 03:17 36.7 C 92 H 14 114/76 99 Room Air 06/29/24 23:55 100 H 06/29/24 22:29 36.4 C L 96 H 18 110/74 99 Room Air Laboratory Results Short CBC 06/30/24 Range/Units 07:19 WBC 7.93 (4.8-10.8) K/ul Hgb 7.2 L (12.0-16.0) g/dl Hct 22.4 L (37.0-47.0) % Plt Count 163 (130-400) K/uL BMP 06/29/24 06/30/24 07:41 07:19 Sodium 132 L 133 L Potassium 4.5 4.3 Chloride 103 104 Carbon Dioxide 22 23 BUN 38 H 40 H Creatinine 0.86 0.85 Glucose 138 H 133 H Calcium 7.8 L 7.9 L Liver Function 06/29/24 Range/Units 10:56 Total Bilirubin 0.5 (0.2-1.0) mg/dl Direct Bilirubin 0.3 H (0-0.2) mg/dl AST 24 (13-39) U/L ALT 36 (7-52) U/L Alkaline Phosphatase 232 H (34-104) U/L Albumin 2.2 L (3.4-5.0) gm/dl Medications Administered Home Medications Medication Instructions Recorded Confirmed Last Taken calcium carbonate 600 mg-vitamin 1 cap PO DAILY 04/08/22 06/06/24 Unknown D3 12.5 mcg (500 unit) capsule (Calcium 600 with Vitamin D3) atenolol 25 mg tablet 12.5 mg PO DAILY 12/03/22 06/06/24 Unknown clonazepam 0.5 mg tablet 0.5 mg PO HS PRN anxiety or sleep 12/03/22 06/06/24 Unknown magnesium 200 mg tablet 400 mg PO 2XD 06/29/23 06/06/24 Unknown apixaban 5 mg tablet (Eliquis) 5 mg PO BID 06/06/24 06/06/24 Unknown megestrol 625 mg/5 mL (125 mg/mL) 2 ml PO DAILY 06/06/24 06/06/24 Unknown oral suspension prochlorperazine maleate 10 mg 10 mg PO Q6H PRN Nausea 06/06/24 06/06/24 Unknown tablet Active Medications Generic Name Dose Route Start Last Admin Trade Name Freq PRN Reason Stop Dose Admin Acetaminophen 1,000 mg 06/13/24 10:15 06/27/24 14:01 Acetaminophen 500 Mg Tab PO 07/13/24 10:14 1,000 mg Q8H PRN Administration Mild Pain (Scale 1, 2, 3) Apixaban 5 mg 06/07/24 09:00 06/21/24 11:50 Apixaban 5 Mg Tablet PO 07/07/24 08:59 Not Given BID JOSEPH Atenolol 12.5 mg 06/07/24 09:00 06/29/24 08:27 Atenolol 25 Mg Tablet PO 07/07/24 08:59 12.5 mg DAILY JOSEPH Administration Calcium/Vitamin D 1 tab 06/07/24 09:00 06/29/24 08:26 Calcium 600mg + Vit D 400 Iu Tab PO 07/07/24 08:59 1 tab DAILY JOSEPH Administration Heparin Sodium (Porcine) 5 ml 06/08/24 01:20 06/20/24 05:24 Heparin 100 Unit/Ml 5ml Flush FLUSH 07/08/24 01:19 5 ml PRN PRN Administration Flush Heparin Sodium (Porcine) 5,000 units 06/22/24 14:00 06/23/24 14:09 Heparin Sod 5,000 Unit/0.5 Ml Vial SQ 07/22/24 13:59 5,000 units Q8 JOSEPH Administration Pantoprazole Sodium 40 mg/ 10 mls @ 5 mls/min 06/21/24 21:00 06/30/24 09:02 Syringe IV 07/21/24 20:59 5 mls/min BID JOSEPH Administration Amino Acids/Dextrose 1,111.2 1,111.2 mls @ 45.97 mls/hr 06/29/24 16:00 06/29/24 16:25 ml/ Nutrition (Parenteral) IV 06/30/24 15:59 46 mls/hr .Q24H JOSEPH Administration Protocol Dexamethasone 6 mg/ Syringe 1.5 mls @ 1 mls/min 06/30/24 09:00 06/30/24 09:02 IV 07/30/24 08:59 1 mls/min DAILY JOSEPH Administration Insulin Aspart 0 units 06/30/24 00:00 06/30/24 06:14 Insulin Aspart Per Unit Charge SC 07/30/24 00:00 Not Given Q6 JOSEPH Lidocaine 1 patch 06/13/24 10:30 06/30/24 09:01 Lidocaine 5% 1 Patch TD 07/13/24 10:29 1 patch QAM JOSEPH Administration Magnesium Oxide 400 mg 06/06/24 21:40 06/19/24 09:28 Magnesium Oxide 400 Mg Tab PO 07/06/24 21:39 Not Given BID JOSEPH Megestrol Acetate 250 mg 06/18/24 09:00 06/29/24 08:41 Megestrol Acetate Susp 400 Mg/10 Ml Udc PO 07/18/24 08:59 250 mg DAILY JOSEPH Administration Miscellaneous 1 each 06/13/24 21:00 06/29/24 21:20 Remove Lidoderm Patch N/A 07/13/24 20:59 1 each DAILY@2100 JOSEPH Administration Miscellaneous 1 each 06/20/24 16:00 06/25/24 15:16 Check Scopolamine Patch Placement N/A 07/20/24 15:59 Not Given QS JOSEPH Miscellaneous 1 each 06/23/24 11:45 06/29/24 12:12 Remove Transderm-Scop Patch N/A 07/23/24 11:44 Not Given Q72H JOSEPH Miscellaneous 1 each 06/27/24 22:00 06/29/24 22:34 Stop Clinolipid N/A 07/27/24 21:59 1 each Q24H JOSEPH Administration Potassium Chloride 40 meq 06/14/24 09:15 06/24/24 08:29 Potassium Chloride Pwd 20 Meq Pack PO 07/14/24 09:14 Not Given BID JOSEPH Potassium Phosphate 2 tab 06/10/24 13:00 06/24/24 21:15 Pot Phosphate Monobasic W/ Sod Tab PO 07/10/24 12:59 Not Given QID JOSEPH Saccharomyces Boulardii 250 mg 06/17/24 09:00 06/28/24 17:23 Saccharomyces Boulardii 250 Mg Cap PO 07/17/24 08:59 Not Given DAILY JOSEPH Scopolamine 1 patch 06/20/24 11:45 06/23/24 11:52 Scopolamine 1 Mg/72 Hr Tdsy Patch TD 07/20/24 11:44 1 patch Q72H JOSEPH Administration
--- NOTE | 2024-06-30 11:05 | Pharmacy Report ---
Pharmacy Initial PN Consult Nt - Date of Service June 30, 2024 - Scope Pharmacy has been consulted on this 06/22 to manage parenteral nutrition orders and order appropriate labs. As part of the Nutrition Support Team Guidelines, pharmacy will work in conjunction with dietary when determining the patients caloric needs. - Subjective * The patient is a 74 year old Female admitted on 06/06/24 for MET CANCER, GENERALIZED WEAKNESS, EUGENE. - Objective Vascular Access: * Patient currently has a central line Height & Weight (Last Documented) Height 5 ft 5 in Weight 70.5 kg Diet Order(s) 06/29/24 12:26 NPO Intake & Ouput (24hrs) 06/29/24 06/30/24 07/01/24 06:59 06:59 06:59 Intake Total 1403.2 / 1403.2 1338.667 / 1338.667 Output Total 2049 / 2049 1875 / 187 Balance -646.8 / -646.8 -536.333 / -536.333 Selected Laboratory Results 06/29/24 06/30/24 10:56 07:19 Sodium 133 L Potassium 4.3 Chloride 104 Carbon Dioxide 23 Anion Gap 6 BUN 40 H Creatinine 0.85 Est GFR ( Amer) 77.7 Est GFR (Non-Af Amer) 67.0 BUN/Creatinine Ratio 47.1 H Glucose 133 H Calcium 7.9 L Phosphorus 3.8 Magnesium 2.1 Total Bilirubin 0.5 AST 24 ALT 36 Alkaline Phosphatase [address] - Follow Up Nutrition Assessment Start: 06/07/24 19:33 Freq: Status: Active Protocol: Document 06/27/24 17:10 KK (Rec: 06/27/24 17:43 [id number]) RD - Initial Nutrition Assessment Start: 06/07/24 19:21 Freq: Status: Active Protocol: Document 06/07/24 19:21 KK (Rec: 06/07/24 19:33 [id number]) - Assessment & Plan Assessment: * Appreciate dietitians recommendations for macronutrients. Patient continues with TPN, day 9 today - per notes potential discussion for surgery. TG trending upward from last week check. Reasonable to continue with lipids, but may need to consider more frequent checks to ensure stable. Na still lower, will utilize ~154 meq/L in TPN today. Palliative care consulted for patient. Plan: * For Day #9 of TPN administration, the following will be ordered: * Macronutrients: * Amino Acids: 80 grams/day * Dextrose: 140 grams/day * Lipids: 50 grams/day * Micronutrients: * TPN electrolytes: 20 mL/day - Contains 35 mEq Na, 20 mEq K, 4.5 mEq Ca, 5 mEq Mg, 35 mEq Cl, 29.5 mEq Acetate per 20 mL * Sodium phosphate: 36 mMol/day * Sodium chloride: 30 mEq/day * Sodium acetate: 50 mEq/day * Magnesium sulfate: 12.18 mEq/day * Multivitamins: 10 mL/day * Trace elements: 1 mL/day * Thiamine: 100 mg/day * Folic Acid: 1 mg/day * Total volume of 1084 mL will be infused over 24 hours and will provide 1296 kcal/day * Labs will be ordered per PN protocol. * Pharmacy will follow and adjust PN orders on a daily basis. Thank you!
[2024-06-30] MEDS: CLINOLIPID 20% IV FAT EMULSION 250 ML IV SCH (15:59)
[2024-06-30] MEDS: [UNRECOGNIZED DRUG - OTHER] IV SCH (16:00)
[2024-06-30] MEDS: CENTRAL TPN IV SCH (16:00)
[2024-07-01] MEDS: ACETAMINOPHEN 1,000 MG/100 ML VIAL IV PRN (01:02)
--- NOTE | 2024-07-01 05:06 | Surgery Progress Note ---
Date of Service July 01, 2024 Assessment & Plan (1) Bowel obstruction: Plan: Patient has been admitted on the hospitalist service. From surgery perspective we recommend the following: Maintain NG tube in place until patient has further return of bowel function at which time consideration be given to removing her NG tube Patient is being considered for potential diverting ostomy due to the continued nature of her bowel obstruction which is likely related to her underlying gallbladder cancer Check a.m. labs unavailable Admission and Anticipated Discharge Date Admission Date: June 06, 2024 Subjective Patient is currently resting comfortably in bed. She reports that she did pass a small amount of flatus last night but has not had a bowel movement since her NG tube has been placed. Currently she denies any abdominal pain Discussed with low emission automobile designer nurse attending the patient and no issues noted. Physical Exam Gastrointestinal (Abdomen): Abdomen is soft with minimal distention. There is no pain with palpation at the time of my exam Results & Data Vital Signs (Past 12 Hours) Vital Signs Temp Pulse Pulse Resp BP Pulse Ox O2 Del Method 07/01/24 02:48 36.7 C 92 H 16 117/77 92 Room Air 06/30/24 23:42 96 H 06/30/24 23:19 36.7 C 92 H 18 138/88 100 Room Air 06/30/24 19:51 36.5 C 96 H 18 118/78 98 Room Air PG Care Time/CCT Total # of Minutes Spent Total Time Spent with Patient: Total time spent is greater than 50% in coordination of care (as documented) at patient's floor/unit and/or counseling patient: Coding Level of Care Code 38692 SUB INP/OBS CARE 10/28MIN Diagnoses Bowel obstruction K56.609
[2024-07-01 07:00] LABS: BUN Creatinine Ratio 53.9 (10-20); Calcium 7.7 mg/dl (8.6-10.3); Creatinine Clr Calc Pharmacy 62.9 ml/min; Est GFR (African American) 88.9 ml/min; Est GFR (Non-African American) 76.7 ml/min; Phosphorus 3.6 mg/dl (2.5-4.9)
[2024-07-01 12:11] LABS: Hematocrit (blood only) 21.7 % (37.0-47.0); Hemoglobin 6.8 g/dl (12.0-16.0); Mean Corpuscular Hemoglobin 32.1 pg (25.0-34.0); Mean Corpuscular Hgb Conc 31.3 g/dL (32.0-36.0); Mean Corpuscular Volume 102.4 fL (80.0-100.0); Mean Platelet Volume 10.5 fL (9.4-12.4); Nucleated RBC # (auto) 0.03 K/uL (0.00-0.12); Nucleated RBC % (auto) 0.3 %; Platelet Count 171 K/uL (130-400); RDW Coefficient of Variation 17.9 % (11.5-14.5); RDW Standard Deviation 66.5 fL (36.4-46.3); Red Blood Count 2.12 M/uL (4.20-5.40); White Blood Count 9.25 K/ul (4.8-10.8)
[2024-07-01] MEDS ORDERED: SODIUM CHLORIDE 0.9% 250 ML IV PRN (12:54)
--- NOTE | 2024-07-01 12:58 | Hospitalist Progress Note ---
Date of Service July 01, 2024 Assessment & Plan (1) Acute kidney injury superimposed on CKD: (2) Elevated lactic acid level: (3) Acute hyponatremia: (4) Adenocarcinoma of gallbladder: (5) History of DVT (deep vein thrombosis): (6) Anxiety: Plan: Ms. 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 Patient found to have bowel obstruction. This bowel obstruction was management conservatively. Surgery signed off--stating that surgical intervention will only be pursued in an emergent situation. GI evaluated patient and spoke to Dr Morris, who placed stent. The concern of eroding tumor may be contributing to occult anemia. From 06/17 to 06/18, patient with more alertness and ability to participate in exam. Attempting to eat more as able. Noted that liver enzymes are uptrending and given vague discomfort will order KUB to start to assess obstruction and will consider repeat CT ABD/P contingent on trend of LFTS. On 06/19, it was expressed to that patients medical condition is tenuous. That regardless of "where" she discharges it is hard to say when the recurrence of symptoms may come and if/when she may come back.. Expressed need for prompt Onc follow up to establish plan. From 06/21 to 06/27, patient developed recurrence of abdominal pain, CT abdomen and pelvis revealing small bowel obstruction with mesenteric hernia, and large bowel obstruction in the hepatic flexure, secondary to tethered gallbladder mass. This was managed with conservative measures and small bowel follow through confirmed resolution. However, patient with marked lethargy and fluctuating delirium. patient remains on PPN due to poor po intake. Discussion was had with Dr. Christie--requested encounter with family to discuss treatment options given complicated and prolonged course in hospital. Patient's states Dr. Christie spoke with him and his daughter on 06/28--stating something to the effect that "she has to get through this to get to the clinic." Concern for looming reobstruction, will start management for malignant bowel obstruction. After thoughtful conversation with Palliative and , plan to continue 5 day course of IV dexamethasone. Discussed case with Dr Montenegro over the phone who will discuss possible diverting ileostomy with Dr. Garcia. Patient is a high risk, however, this procedure could provide bridge for home. On 07/01, noted that kruse in place for 24 days, therefore plan for exchange this afternoon. Hgb downtrending as well as suspected, planning for 1 UPRBC. #Acute toxic metabolic encephalopathy *fluctuating likely multifactorial--chronic leukoencephalopathy, delirium 2/2 chronic illness, malnutrition patient again developed progressive lethargy over the weekend Extensive workup including CT head, VBG, ammonia, TSH, cortisol, and infectious workup repeated-all unrevealing Neurology service reconsulted, does not recommend any other testing at this point avoid benzos/sedatives Encourage delirium precautions and sleep hygiene Continue to monitor closely #Malignant Bowel Obstruction #Small bowel Obstruction #Large Bowel Obstruction CT adb/pelvis noting transition point suggestive of obstruction Follow up KUB noting persistence of bowel obstruction Pt intially NPO, IV fluids, IV antiemetics, IV pain meds General surgery consulted, appreciate recs: no surgical intervention GI: no further stenting; conservative management Recurrent obstruction iso malignancy with recurrence of abdominal pain 06/16, CT abdomen and pelvis revealing small bowel obstruction with mesenteric hernia, and large bowel obstruction in the hepatic flexure, secondary to tethered gallbladder mass -PPN started -Poor intake, encouraged home megace -06/29, abdominal bloat/distention -Continue Dexamethsone for MBO, continue IV 6mg qd for 5 days (12/06) - agreeable to palliative care consult given need for optimizing symptomatic control v transitioning to GoC, difficult to broach conversation. NGT placed on 06/29 with notable feculent output -Continue NGT for now Surgery consulted: possible diverting ileostomy, to be further discussed in coming week with surgery -Reviewed recommendations this am #Acute on chronic Anemia Hgb <7 on 06/11 s/p transfusion 1U pRBCs Holding home eliquis at this time FOBT POSITIVE on 06/23, Hemoglobin 6.8 s/p 1 UPRBC Likely upper GI source, in light of NG tube, Eliquis use Monitor hemoglobin Continue Protonix IV twice daily Holding Eliquis for down trending Hgb Will continue heparin 2/2 risk for DVT -Discuss IVC filter placement with Vascular especially ? for upcoming surgery -Discussed with Aneta OHARA--will discuss case with Dr Snyder s/p 1 U PRBC 07/01 #Transaminitis #Adenocarcinoma of gallbladder Last FOLFOX treatment 05/[address] Gross; transitioned to Dr. Christie Continue Megace 06/08- patient's family requested 5FU reversal, but not warranted at this time per Oncology As above GI consult for further recs per General Surgery. repeat CMP in am Family hopeful for a "treatment" and ways to get patient "out and to the clinic" -Discussing that this is complicated 2/2 to recurrent obstruction Manage conservatively as above #Chemotherapy induced Neutropenia *resolved #Lactic acidosis iso obstruction/dehydration sepsis ruled out Pt with progressing neutropenia, in the setting of recent chemotherapy Lactate initially 4.4 on admission ->normalized to 2.0 with fluids Chest XRAY with no acute infection UA unremarkable, respiratory testing negative, MRSA nares negative Blood Cx x1 set NGTD. 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 Accordion Maker/Oncologist Dr Christie on 06/08, s/p neupogen 480 mcg subcu for neutropenia for 3 days Need prompt OP Onc follow up given patient's desire for pursuing further treatment #EUGENE superimposed on CKD *resolved 2/2 decreased oral intake/possible infection following chemo tx 05/30 Creatinine 2.36 on admission (previously 1.7 eight days prior) CTM, at baseline #Generalized weakness #Hyponatremiaresolved #Hypernatremia continue PPN and trend BMP #Hypokalemia #Hypocalcemia #Hypophosphatemia replacement underway #Malnutrition Likely in setting of above Research Worker Kitchen consult PPN on going #H/o DVT Eliquis held for SBO, possible emergency procedures continue heparin sq; vascular to discuss case #HTN (hypertension) Continue atenolol #History of breast cancer S/p left partial mastectomy, XRT, 5 years of tamoxifen completed in August 2022 #Restless legs syndrome (RLS) Clonazepam HS PRN #Acute respiratory alkalosis secondary metabolic alkalosis resolved #Diarrhea improved Resolved at this time Diet: regular, PPN DVT Ppx: Eliquis held, cont sq Heparin on hold Code status: FULL PCP: Loreta Dispo: pending Admission and Anticipated Discharge Date Admission Date: June 06, 2024 Subjective NAEO Reports feeling "ok" this morning, no acute abdominal pain or acute concerns. States she is just really fatigued Physical Exam Constitutional: ill appearing woman ENMT: NGT with minimal output at this time Respiratory: normal respiratory effort, lungs clear to auscultation Cardiovascular: RRR, no murmur, no edema Gastrointestinal (Abdomen): normal bowel sounds, soft, nontender, no hepatosplenomegaly Results & Data Results & Data Vital Signs (Past 12 Hours) Vital Signs Temp Pulse Pulse Resp BP Pulse Ox O2 Del Method 07/01/24 11:28 36.6 C 89 19 116/76 98 Room Air 07/01/24 08:45 92 H 07/01/24 08:45 Room Air 07/01/24 07:08 36.6 C 91 H 19 114/79 99 Room Air 07/01/24 02:48 36.7 C 92 H 16 117/77 92 Room Air Laboratory Results Short CBC 07/01/24 Range/Units 11:40 WBC 9.25 (4.8-10.8) K/ul Hgb 6.8 L* (12.0-16.0) g/dl Hct 21.7 L (37.0-47.0) % Plt Count 171 (130-400) K/uL BMP 07/01/24 05:41 Sodium 134 L Potassium 4.0 Chloride 104 Carbon Dioxide 23 BUN 41 H Creatinine 0.76 Glucose 119 H Calcium 7.7 L Medications Administered Home Medications Medication Instructions Recorded Confirmed Last Taken calcium carbonate 600 mg-vitamin 1 cap PO DAILY 04/08/22 06/06/24 Unknown D3 12.5 mcg (500 unit) capsule (Calcium 600 with Vitamin D3) atenolol 25 mg tablet 12.5 mg PO DAILY 12/03/22 06/06/24 Unknown clonazepam 0.5 mg tablet 0.5 mg PO HS PRN anxiety or sleep 12/03/22 06/06/24 Unknown magnesium 200 mg tablet 400 mg PO 2XD 06/29/23 06/06/24 Unknown apixaban 5 mg tablet (Eliquis) 5 mg PO BID 06/06/24 06/06/24 Unknown megestrol 625 mg/5 mL (125 mg/mL) 2 ml PO DAILY 06/06/24 06/06/24 Unknown oral suspension prochlorperazine maleate 10 mg 10 mg PO Q6H PRN Nausea 06/06/24 06/06/24 Unknown tablet Active Medications Generic Name Dose Route Start Last Admin Trade Name Freq PRN Reason Stop Dose Admin Acetaminophen 1,000 mg 06/13/24 10:15 06/27/24 14:01 Acetaminophen 500 Mg Tab PO 07/13/24 10:14 1,000 mg Q8H PRN Administration Mild Pain (Scale 1, 2, 3) Apixaban 5 mg 06/07/24 09:00 06/21/24 11:50 Apixaban 5 Mg Tablet PO 07/07/24 08:59 Not Given BID JOSEPH Atenolol 12.5 mg 06/07/24 09:00 07/01/24 08:44 Atenolol 25 Mg Tablet PO 07/07/24 08:59 Not Given DAILY [facility] [place] Calcium/Vitamin D 1 tab 06/07/24 09:00 07/01/24 08:44 Calcium 600mg + Vit D 400 Iu Tab PO 07/07/24 08:59 Not Given DAILY JOSEPH Heparin Sodium (Porcine) 5 ml 06/08/24 01:20 06/20/24 05:24 Heparin 100 Unit/Ml 5ml Flush FLUSH 07/08/24 01:19 5 ml PRN PRN Administration Flush Heparin Sodium (Porcine) 5,000 units 06/22/24 14:00 06/23/24 14:09 Heparin Sod 5,000 Unit/0.5 Ml Vial SQ 07/22/24 13:59 5,000 units Q8 JOSEPH Administration Pantoprazole Sodium 40 mg/ 10 mls @ 5 mls/min 06/21/24 21:00 07/01/24 08:48 Syringe IV 07/21/24 20:59 5 mls/min BID JOSEPH Administration Dexamethasone 6 mg/ Syringe 1.5 mls @ 1 mls/min 06/30/24 09:00 07/01/24 08:48 IV 07/30/24 08:59 1 mls/min DAILY JOSEPH Administration Amino Acids/Dextrose 1,084 ml/ 1,084 mls @ 45 mls/hr 06/30/24 16:00 06/30/24 16:00 Nutrition (Parenteral) IV 07/01/24 15:59 45 mls/hr .Q24H JOSEPH Administration Protocol Acetaminophen 1,000 mg in 100 mls @ 400 mls/hr 07/01/24 00:45 07/01/24 10:12 Ofirmev IV 07/04/24 00:44 Infused Q8H PRN Infusion pain/fever Insulin Aspart 0 units 06/30/24 00:00 07/01/24 12:24 Insulin Aspart Per Unit Charge SC 07/30/24 00:00 2 units Q6 JOSEPH Administration Lidocaine 1 patch 06/13/24 10:30 07/01/24 08:49 Lidocaine 5% 1 Patch TD 07/13/24 10:29 1 patch QAM JOSEPH Administration Magnesium Oxide 400 mg 06/06/24 21:40 06/19/24 09:28 Magnesium Oxide 400 Mg Tab PO 07/06/24 21:39 Not Given BID JOSEPH Megestrol Acetate 250 mg 06/18/24 09:00 07/01/24 08:45 Megestrol Acetate Susp 400 Mg/10 Ml Udc PO 07/18/24 08:59 Not Given DAILY JOSEPH Miscellaneous 1 each 06/13/24 21:00 06/30/24 20:09 Remove Lidoderm Patch N/A 07/13/24 20:59 1 each DAILY@2100 JOSEPH Administration Miscellaneous 1 each 06/20/24 16:00 06/25/24 15:16 Check Scopolamine Patch Placement N/A 07/20/24 15:59 Not Given QS JOSEPH Miscellaneous 1 each 06/23/24 11:45 06/29/24 12:12 Remove Transderm-Scop Patch N/A 07/23/24 11:44 Not Given Q72H JOSEPH Miscellaneous 1 each 06/27/24 22:00 06/30/24 22:59 Stop Clinolipid N/A 07/27/24 21:59 1 each Q24H JOSEPH Administration Potassium Chloride 40 meq 06/14/24 09:15 06/24/24 08:29 Potassium Chloride Pwd 20 Meq Pack PO 07/14/24 09:14 Not Given BID JOSEPH Potassium Phosphate 2 tab 06/10/24 13:00 06/24/24 21:15 Pot Phosphate Monobasic W/ Sod Tab PO 07/10/24 12:59 Not Given QID JOSEPH Saccharomyces Boulardii 250 mg 06/17/24 09:00 06/28/24 17:23 Saccharomyces Boulardii 250 Mg Cap PO 07/17/24 08:59 Not Given DAILY JOSEPH Scopolamine 1 patch 06/20/24 11:45 06/23/24 11:52 Scopolamine 1 Mg/72 Hr Tdsy Patch TD 07/20/24 11:44 1 patch Q72H JOSEPH Administration
[2024-07-01] MEDS: CENTRAL TPN IV SCH (15:36)
[2024-07-01] MEDS: CLINOLIPID 20% IV FAT EMULSION 250 ML IV SCH (15:36)
[2024-07-01] MEDS: [UNRECOGNIZED DRUG - OTHER] IV SCH (15:36)
[2024-07-01 19:16] LABS: Hemoglobin 8.1 g/dl (12.0-16.0)
--- NOTE | 2024-07-02 05:10 | Surgery Progress Note ---
Date of Service July 02, 2024 Assessment & Plan (1) Bowel obstruction: Plan: Patient has been admitted on the hospitalist service. From surgery perspective we recommend the following: Maintain NG tube in place for the present time. Would be hesitant to remove the NG tube without at least a clamping trial. Patient is being considered for potential diverting ostomy due to the continued nature of her bowel obstruction which is likely related to her u nderlying gallbladder cancer Check a.m. labs unavailable Admission and Anticipated Discharge Date Admission Date: June 06, 2024 Subjective Patient is currently resting in bed. She notes minimal abdominal pain. She reports she is passing flatus. I did discuss with nursing staff no issues of air reported overnight. They noted NG tube has had minimal drainage. Physical Exam Gastrointestinal (Abdomen): Abdomen is soft and nondistended. There is minimal to no pain with palpation at time of my exam. Results & Data Vital Signs (Past 12 Hours) Vital Signs Temp Pulse Pulse Resp BP BP Pulse Ox 07/02/24 02:40 36.5 C 99 H 18 130/81 98 07/01/24 22:49 93 H 07/01/24 22:26 37 C 93 H 18 133/87 98 07/01/24 19:16 36.6 C 87 18 130/84 99 07/01/24 17:18 36.7 C 90 18 129/81 100 07/01/24 17:14 89 O2 Del Method 07/02/24 02:40 Room Air 07/01/24 22:49 07/01/24 22:26 Room Air 07/01/24 19:16 Room Air 07/01/24 17:18 07/01/24 17:14 PG Care Time/CCT Total # of Minutes Spent Total Time Spent with Patient: Total time spent is greater than 50% in coordination of care (as documented) at patient's floor/unit and/or counseling patient: Coding Level of Care Code 25509 SUB INP/OBS CARE 10/28MIN Diagnoses Bowel obstruction K56.609
[2024-07-02 07:16] LABS: Hematocrit (blood only) 23.7 % (37.0-47.0); Hemoglobin 7.9 g/dl (12.0-16.0); Mean Corpuscular Hemoglobin 31.7 pg (25.0-34.0); Mean Corpuscular Hgb Conc 33.3 g/dL (32.0-36.0); Mean Corpuscular Volume 95.2 fL (80.0-100.0); Mean Platelet Volume 10.5 fL (9.4-12.4); Nucleated RBC # (auto) 0.06 K/uL (0.00-0.12); Nucleated RBC % (auto) 0.5 %; Platelet Count 167 K/uL (130-400); RDW Standard Deviation 65.4 fL (36.4-46.3); Red Blood Count 2.49 M/uL (4.20-5.40)
[2024-07-02 07:47] LABS: BUN Creatinine Ratio 50.7 (10-20); Calcium 7.7 mg/dl (8.6-10.3); Creatinine Clr Calc Pharmacy 65.4 ml/min; Est GFR (African American) 93.4 ml/min; Est GFR (Non-African American) 80.6 ml/min; Magnesium 1.9 mg/dl (1.7-2.4); Phosphorus 3.3 mg/dl (2.5-4.9); Potassium 3.8 mmol/L (3.5-5.1)
--- NOTE | 2024-07-02 12:29 | Hospitalist Progress Note ---
Date of Service July 02, 2024 Assessment & Plan (1) Acute kidney injury superimposed on CKD: (2) Elevated lactic acid level: (3) Acute hyponatremia: (4) Adenocarcinoma of gallbladder: (5) History of DVT (deep vein thrombosis): (6) Anxiety: Plan: Ms. 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 Patient found to have bowel obstruction. This bowel obstruction was management conservatively. Surgery signed off--stating that surgical intervention will only be pursued in an emergent situation. GI evaluated patient and spoke to Dr Morris, who placed stent. The concern of eroding tumor may be contributing to occult anemia. From 06/17 to 06/18, patient with more alertness and ability to participate in exam. Attempting to eat more as able. Noted that liver enzymes are uptrending and given vague discomfort will order KUB to start to assess obstruction and will consider repeat CT ABD/P contingent on trend of LFTS. On 06/19, it was expressed to that patients medical condition is tenuous. That regardless of "where" she discharges it is hard to say when the recurrence of symptoms may come and if/when she may come back.. Expressed need for prompt Onc follow up to establish plan. From 06/21 to 06/27, patient developed recurrence of abdominal pain, CT abdomen and pelvis revealing small bowel obstruction with mesenteric hernia, and large bowel obstruction in the hepatic flexure, secondary to tethered gallbladder mass. This was managed with conservative measures and small bowel follow through confirmed resolution. However, patient with marked lethargy and fluctuating delirium. patient remains on PPN due to poor po intake. Discussion was had with Dr. Christie--requested encounter with family to discuss treatment options given complicated and prolonged course in hospital. Patient's states Dr. Christie spoke with him and his daughter on 06/28--stating something to the effect that "she has to get through this to get to the clinic." Concern for looming reobstruction, will start management for malignant bowel obstruction. After thoughtful conversation with Palliative and , plan to continue 5 day course of IV dexamethasone. Discussed case with Dr Montenegro over the phone who will discuss possible diverting ileostomy with Dr. Garcia. Patient is a high risk, however, this procedure could provide bridge for home. On 07/01, kruse exchanged and patient recieved 1 UPRBC. Heparin and eliquis held. Patient high risk for DVTs iso malignant and hx there of. Vascular to discuss appropriateness of IVC filter especially given question of possible surgery. Today, there are no changes in management. Patient did remove NGT and declined further placement. 2 mucoid BM reported, BS +. Will continue NPO status and monitor bowel function, symptoms if need for decompression recurs. #Acute toxic metabolic encephalopathy *fluctuating likely multifactorial--chronic leukoencephalopathy, delirium 2/2 chronic illness, malnutrition patient again developed progressive lethargy over the weekend Extensive workup including CT head, VBG, ammonia, TSH, cortisol, and infectious workup repeated-all unrevealing Neurology service reconsulted, does not recommend any other testing at this point avoid benzos/sedatives Encourage delirium precautions and sleep hygiene Continue to monitor closely #Malignant Bowel Obstruction #Small bowel Obstruction #Large Bowel Obstruction CT adb/pelvis noting transition point suggestive of obstruction Follow up KUB noting persistence of bowel obstruction Pt intially NPO, IV fluids, IV antiemetics, IV pain meds General surgery consulted, appreciate recs: no surgical intervention GI: no further stenting; conservative management Recurrent obstruction iso malignancy with recurrence of abdominal pain 06/16, CT abdomen and pelvis revealing small bowel obstruction with mesenteric hernia, and large bowel obstruction in the hepatic flexure, secondary to tethered gall bladder mass -PPN started -Poor intake, encouraged home megace -06/29, abdominal bloat/distention -Continue Dexamethsone for MBO, continue IV 6mg qd for 5 days (3/5) - agreeable to palliative care consult given need for optimizing symptomatic control v transitioning to GoC, difficult to broach conversation. NGT placed on 06/29 with notable feculent output -NGT removed by patient on 07/02 Surgery consulted: possible diverting ileostomy, to be further discussed in coming week with surgery -Reviewed recommendations this am #Acute on chronic Anemia Hgb <7 on 06/11 s/p transfusion 1U pRBCs Holding home eliquis at this time FOBT POSITIVE on 06/23, Hemoglobin 6.8 s/p 1 UPRBC Likely upper GI source, in light of NG tube, Eliquis use Monitor hemoglobin Continue Protonix IV twice daily Holding Eliquis for down trending Hgb Will continue heparin 2/2 risk for DVT -Discuss IVC filter placement with Vascular especially ? for upcoming surgery -Discussed with Aneta OHARA--will discuss case with Dr Snyder s/p 1 U PRBC 07/01 trend cbc #Transaminitis #Adenocarcinoma of gallbladder Last FOLFOX treatment 05/[address] Gross; transitioned to Dr. Christie Continue Megace 06/08- patient's family requested 5FU reversal, but not warranted at this time per Oncology As above GI consult for further recs per General Surgery. repeat CMP in am Family hopeful for a "treatment" and ways to get patient "out and to the clinic" -Discussing that this is complicated 2/2 to recurrent obstruction Manage conservatively as above #Chemotherapy induced Neutropenia *resolved #Lactic acidosis iso obstruction/dehydration sepsis ruled out Pt with progressing neutropenia, in the setting of recent chemotherapy Lactate initially 4.4 on admission ->normalized to 2.0 with fluids Chest XRAY with no acute infection UA unremarkable, respiratory testing negative, MRSA nares negative Blood Cx x1 set NGTD. 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 Dr Christie on 06/08, s/p neupogen 480 mcg subcu for neutropenia for 3 days Need prompt OP Onc follow up given patient's desire for pursuing further treatment #EUGENE superimposed on CKD *resolved 2/2 decreased oral intake/possible infection following chemo tx 05/30 Creatinine 2.36 on admission (previously 1.7 eight days prior) CTM, at baseline #Generalized weakness #Hyponatremiaresolved #Hypernatremia continue PPN and trend BMP #Hypokalemia #Hypocalcemia #Hypophosphatemia replacement underway #Malnutrition Likely in setting of above [employer] consult PPN on going #H/o DVT Eliquis held for SBO, possible emergency procedures held heparin sq; vascular to discuss case #HTN (hypertension) Continue atenolol #History of breast cancer S/p left partial mastectomy, XRT, 5 years of tamoxifen completed in August 2022 #Restless legs syndrome (RLS) Clonazepam HS PRN #Acute respiratory alkalosis secondary metabolic alkalosis resolved #Diarrhea improved Resolved at this time Diet: regular, PPN DVT Ppx: Eliquis held, sq Heparin on hold Code status: FULL PCP: Loreta Dispo: pending Admission and Anticipated Discharge Date Admission Date: June 06, 2024 Subjective NAEO However patient pull NGT this afternoon and declines new one to be placed at this time Patient without abdominal pain nausea or vomiting Patient states that she just tired as usual updated at bedside Physical Exam Constitutional: WD/WN, vitals as above Respiratory: normal respiratory effort, lungs clear to auscultation Cardiovascular: RRR, no murmur, no edema Gastrointestinal (Abdomen): normal bowel sounds, soft, nontender, no hepatosplenomegaly active bowel sounds, nontender, NGT in place with min. output at this time; however removed this afternoon Neurologic: PERRL, EOMI, accommodation nl, no face palsy, no dysarthria (alert to self and in hospital) Results & Data Results & Data Vital Signs (Past 12 Hours) Vital Signs Temp Pulse Resp BP Pulse Ox O2 Del Method 07/02/24 11:11 37.0 C 102 H 19 129/87 98 Room Air 07/02/24 07:34 36.6 C 100 H 19 122/80 98 Room Air 07/02/24 02:40 36.5 C 99 H 18 130/81 98 Room Air Laboratory Results Short CBC 07/01/24 07/02/24 Range/Units 19:05 06:46 WBC 12.60 H (4.8-10.8) K/ul Hgb 8.1 L 7.9 L (12.0-16.0) g/dl Hct 24.0 L 23.7 L (37.0-47.0) % Plt Count 167 (130-400) K/uL BMP 07/02/24 06:46 Sodium 134 L Potassium 3.8 Chloride 103 Carbon Dioxide 24 BUN 37 H Creatinine 0.73 Glucose 145 H Calcium 7.7 L Medications Administered Home Medications Medication Instructions Recorded Confirmed Last Taken calcium carbonate 600 mg-vitamin 1 cap PO DAILY 04/08/22 06/06/24 Unknown D3 12.5 mcg (500 unit) capsule (Calcium 600 with Vitamin D3) atenolol 25 mg tablet 12.5 mg PO DAILY 12/03/22 06/06/24 Unknown clonazepam 0.5 mg tablet 0.5 mg PO HS PRN anxiety or sleep 12/03/22 06/06/24 Unknown magnesium 200 mg tablet 400 mg PO 2XD 06/29/23 06/06/24 Unknown apixaban 5 mg tablet (Eliquis) 5 mg PO BID 06/06/24 06/06/24 Unknown megestrol 625 mg/5 mL (125 mg/mL) 2 ml PO DAILY 06/06/24 06/06/24 Unknown oral suspension prochlorperazine maleate 10 mg 10 mg PO Q6H PRN Nausea 06/06/24 06/06/24 Unknown tablet Active Medications Generic Name Dose Route Start Last Admin Trade Name Freq PRN Reason Stop Dose Admin Acetaminophen 1,000 mg 06/13/24 10:15 06/27/24 14:01 Acetaminophen 500 Mg Tab PO 07/13/24 10:14 1,000 mg Q8H PRN Administration Mild Pain (Scale 1, 2, 3) Apixaban 5 mg 06/07/24 09:00 06/21/24 11:50 Apixaban 5 Mg Tablet PO 07/07/24 08:59 Not Given BID JOSEPH Atenolol 12.5 mg 06/07/24 09:00 07/02/24 08:24 Atenolol 25 Mg Tablet PO 07/07/24 08:59 Not Given DAILY [facility] Calcium/Vitamin D 1 tab 06/07/24 09:00 07/02/24 08:24 Calcium 600mg + Vit D 400 Iu Tab PO 07/07/24 08:59 Not Given DAILY JOSEPH Heparin Sodium (Porcine) 5 ml 06/08/24 01:20 06/20/24 05:24 Heparin 100 Unit/Ml 5ml Flush FLUSH 07/08/24 01:19 5 ml PRN PRN Administration Flush Heparin Sodium (Porcine) 5,000 units 06/22/24 14:00 06/23/24 14:09 Heparin Sod 5,000 Unit/0.5 Ml Vial SQ 07/22/24 13:59 5,000 units Q8 JOSEPH Administration Pantoprazole Sodium 40 mg/ 10 mls @ 5 mls/min 06/21/24 21:00 07/02/24 08:44 Syringe IV 07/21/24 20:59 5 mls/min BID JOSEPH Administration Dexamethasone 6 mg/ Syringe 1.5 mls @ 1 mls/min 06/30/24 09:00 07/02/24 08:44 IV 07/30/24 08:59 1 mls/min DAILY JOSEPH Administration Acetaminophen 1,000 mg in 100 mls @ 400 mls/hr 07/01/24 00:45 07/01/24 10:12 Ofirmev IV 07/04/24 00:44 Infused Q8H PRN Infusion pain/fever Amino Acids/Dextrose 1,093 ml/ 1,093 mls @ 45.6 mls/hr 07/01/24 16:00 07/01/24 15:36 Nutrition (Parenteral) IV 07/02/24 15:58 45.6 mls/hr .[id number] JOSEPH Administration Protocol Insulin Aspart 0 units 06/30/24 00:00 07/02/24 06:19 Insulin Aspart Per Unit Charge SC 07/30/24 00:00 1 units Q6 JOSEPH Administration Lidocaine 1 patch 06/13/24 10:30 07/02/24 08:43 Lidocaine 5% 1 Patch TD 07/13/24 10:29 1 patch QAM JOSEPH Administration Magnesium Oxide 400 mg 06/06/24 21:40 06/19/24 09:28 Magnesium Oxide 400 Mg Tab PO 07/06/24 21:39 Not Given BID JOSEPH Megestrol Acetate 250 mg 06/18/24 09:00 07/02/24 08:25 Megestrol Acetate Susp 400 Mg/10 Ml Udc PO 07/18/24 08:59 Not Given DAILY JOSEPH Miscellaneous 1 each 06/13/24 21:00 07/01/24 19:52 Remove Lidoderm Patch N/A 07/13/24 20:59 1 each DAILY@2100 JOSEPH Administration Miscellaneous 1 each 06/20/24 16:00 06/25/24 15:16 Check Scopolamine Patch Placement N/A 07/20/24 15:59 Not Given QS JOSEPH Miscellaneous 1 each 06/23/24 11:45 06/29/24 12:12 Remove Transderm-Scop Patch N/A 07/23/24 11:44 Not Given Q72H JOSEPH Miscellaneous 1 each 06/27/24 22:00 07/01/24 22:18 Stop Clinolipid N/A 07/27/24 21:59 1 each Q24H JOSEPH Administration Potassium Chloride 40 meq 06/14/24 09:15 06/24/24 08:29 Potassium Chloride Pwd 20 Meq Pack PO 07/14/24 09:14 Not Given BID JOSEPH Potassium Phosphate 2 tab 06/10/24 13:00 06/24/24 21:15 Pot Phosphate Monobasic W/ Sod Tab PO 07/10/24 12:59 Not Given QID JOSEPH Saccharomyces Boulardii 250 mg 06/17/24 09:00 06/28/24 17:23 Saccharomyces Boulardii 250 Mg Cap PO 07/17/24 08:59 Not Given DAILY JOSEPH Scopolamine 1 patch 06/20/24 11:45 06/23/24 11:52 Scopolamine 1 Mg/72 Hr Tdsy Patch TD 07/20/24 11:44 1 patch Q72H JOSEPH Administration
[2024-07-02] MEDS: CENTRAL TPN IV SCH (15:59)
[2024-07-02] MEDS: [UNRECOGNIZED DRUG - OTHER] IV SCH (15:59)
[2024-07-02] MEDS: CLINOLIPID 20% IV FAT EMULSION 250 ML IV SCH (15:59)
[2024-07-03 08:20] LABS: Hematocrit (blood only) 22.5 % (37.0-47.0); Hemoglobin 7.6 g/dl (12.0-16.0); Mean Corpuscular Hemoglobin 32.2 pg (25.0-34.0); Mean Corpuscular Hgb Conc 33.8 g/dL (32.0-36.0); Mean Corpuscular Volume 95.3 fL (80.0-100.0); Mean Platelet Volume 9.9 fL (9.4-12.4); Nucleated RBC # (auto) 0.02 K/uL (0.00-0.12); Nucleated RBC % (auto) 0.3 %; Platelet Count 166 K/uL (130-400); RDW Coefficient of Variation 19.4 % (11.5-14.5); RDW Standard Deviation 66.9 fL (36.4-46.3); Red Blood Count 2.36 M/uL (4.20-5.40); White Blood Count 7.97 K/ul (4.8-10.8)
[2024-07-03 08:35] LABS: Albumin Globulin Ratio 0.7 (0.9-2); Albumin Level 2.2 gm/dl (3.4-5.0); BUN Creatinine Ratio 53.1 (10-20); Bilirubin,Total 0.8 mg/dl (0.2-1.0); Creatinine Clr Calc Pharmacy 75.2 ml/min; Est GFR (African American) 101.2 ml/min; Est GFR (Non-African American) 87.3 ml/min; Globulin 3.2 gm/dl (2.5-4.0); Phosphorus 3.4 mg/dl (2.5-4.9); Total Protein 5.4 gm/dl (6.0-8.3)
--- NOTE | 2024-07-03 11:04 | Consultation ---
Date of Consultation July 03, 2024 Assessment & Plan (1) History of deep vein thrombosis (DVT) of lower extremity: Per pt , she had BLE DVT approx 3 months ago. No records avaialble to review. Would not recommend IVC filter insertion unless new DVT is noted. Pt's understands. Please call if needed. History of Present Illness Reason for Consultation: hx dvt Attending Physician: Laly Khan MD History of Present Illness 74 yo f with hx of stage 4 gallbladder ca causing LBO, CKD, neutropenia, and DVT, seen in conusltation today to discuss IVC filter insertion. Pt unable to converse, so HPI obtained from . He states pt was at oncologist's office about 3 months ago and they noted edema in her legs, so sent her for an US which demonstrated DVT. SHe has been on eliquis since then. No other previous hx. Has had some mild swelling in legs, but nothing new. Denies any new swelling or pain in her legs, states he has been massaging her legs and exercising them. Denies any other complaints. No venous imaging studies during this admission or in pt chart at all. Allergies Allergy/AdvReac Type Severity Reaction Status Date / Time latex Allergy Mild Rash Verified 03/02/24 10:30 sulfamethoxazole Allergy Unknown SWELLING Verified 03/02/24 10:30 ON FACE AND LIPS trimethoprim Allergy Unknown SWELLING Verified 03/02/24 10:30 ON FACE AND LIPS cayenne pepper fruits AdvReac Unknown "spicy Verified 06/06/24 22:25 foods" cause swelling metformin AdvReac Unknown mood Verified 03/02/24 10:30 disorder per [facility] record Home Medications Medication Instructions Recorded Confirmed Type calcium carbonate 600 mg-vitamin 1 cap PO DAILY 04/08/22 06/06/24 History D3 12.5 mcg (500 unit) capsule (Calcium 600 with Vitamin D3) atenolol 25 mg tablet 12.5 mg PO DAILY 12/03/22 06/06/24 History clonazepam 0.5 mg tablet 0.5 mg PO HS PRN anxiety or sleep 12/03/22 06/06/24 History magnesium 200 mg tablet 400 mg PO 2XD 06/29/23 06/06/24 History apixaban 5 mg tablet (Eliquis) 5 mg PO BID 06/06/24 06/06/24 History megestrol 625 mg/5 mL (125 mg/mL) 2 ml PO DAILY 06/06/24 06/06/24 History oral suspension prochlorperazine maleate 10 mg 10 mg PO Q6H PRN Nausea 06/06/24 06/06/24 History tablet Patient History Medical History History of DVT (deep vein thrombosis) Restless legs syndrome (RLS) Anxiety 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) HTN (hypertension) Surgical History H/O partial mastectomy Family History Other Breast cancer Hypertension Social History Smoking Status: Never smoker Hx Alcohol Use: No Hx Substance Use: No Preferred Language: [place] Communication Ability: Effective Yellow [employer] 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: No Beliefs That Will Affect Care: Denominational Current Living Situation: Spouse Current Living Situation Comment: Lives at home Other Information That Helps Us Care for You: No Feels Safe at Home: Yes Safety Concerns: Feels Safe At This Time Assistive Devices: Other Review of Systems Review of Systems: Unobtainable due to cognitive status Physical Exam Constitutional: WD/WN, vitals as above + frail appearing; not in distress Respiratory: normal respiratory effort Auscultation: lungs clear to auscultation bilaterally and + diminished lung sounds Cardiovascular: Rate/Rhythm: regular rate and regular rhythm Vessels: posterior tibial pulses present, dorsalis pedis pulses present and radial pulses present Extremities: normal capillary refill and + edema (trace to +1 BLE) Gastrointestinal (Abdomen): Inspection/Auscultation: abdomen normal to inspection Percussion/Palpation: abdomen soft Musculoskeletal: no cyanosis or clubbing, extremities motor strength 5/5 Skin: no rashes, warm and dry Neurologic: moves all extremities and awake Psychiatric: Orientation: oriented to person Results & Data Vital Signs (Past 12 Hours) Vital Signs Temp Pulse Pulse Resp BP Pulse Ox O2 Del Method 07/03/24 10:44 36.6 C 89 16 122/70 98 Room Air 07/03/24 08:00 88 07/03/24 07:00 36.8 C 91 H 20 127/82 100 Room Air 07/03/24 04:00 36.8 C 88 16 127/84 99 Room Air 07/02/24 23:52 36.4 C L 92 H 16 123/80 100 Room Air 07/02/24 23:28 96 H
--- NOTE | 2024-07-03 11:51 | Hospitalist Progress Note ---
Date of Service July 03, 2024 Assessment & Plan (1) Acute kidney injury superimposed on CKD: (2) Elevated lactic acid level: (3) Acute hyponatremia: (4) Adenocarcinoma of gallbladder: (5) History of DVT (deep vein thrombosis): (6) Anxiety: Plan: Ms. 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 Patient found to have bowel obstruction. This bowel obstruction was management conservatively. Surgery signed off--stating that surgical intervention will only be pursued in an emergent situation. GI evaluated patient and spoke to Dr Morris, who placed stent. The concern of eroding tumor may be contributing to occult anemia. From 06/17 to 06/18, patient with more alertness and ability to participate in exam. Attempting to eat more as able. Noted that liver enzymes are uptrending and given vague discomfort will order KUB to start to assess obstruction and will consider repeat CT ABD/P contingent on trend of LFTS. On 06/19, it was expressed to that patients medical condition is tenuous. That regardless of "where" she discharges it is hard to say when the recurrence of symptoms may come and if/when she may come back.. Expressed need for prompt Onc follow up to establish plan. From 06/21 to 06/27, patient developed recurrence of abdominal pain, CT abdomen and pelvis revealing small bowel obstruction with mesenteric hernia, and large bowel obstruction in the hepatic flexure, secondary to tethered gallbladder mass. This was managed with conservative measures and small bowel follow through confirmed resolution. However, patient with marked lethargy and fluctuating delirium. patient remains on PPN due to poor po intake. Discussion was had with Dr. Christie--requested encounter with family to discuss treatment options given complicated and prolonged course in hospital. Patient's states Dr. Christie spoke with him and his daughter on 06/28--stating something to the effect that "she has to get through this to get to the clinic." Concern for looming reobstruction, will start management for malignant bowel obstruction. After thoughtful conversation with Palliative and , plan to continue 5 day course of IV dexamethasone. Discussed case with Dr Montenegro over the phone who will discuss possible diverting ileostomy with Dr. Garcia. Patient is a high risk, however, this procedure could provide bridge for home. On 07/01, kruse exchanged and patient recieved 1 UPRBC. Heparin and eliquis held. Patient high risk for DVTs iso malignant and hx there of. Vascular to discuss appropriateness of IVC filter especially given question of possible surgery. Patient did remove NGT on 07/02. 2 mucoid BM reported, BS +. Will continue NPO status and monitor bowel function, symptoms if need for decompression recurs. With with new swelling on RLE, will remove SCDs and obtain dopplers. #RLE edema #Recent DVT BLE 03/2024: Acute deep venous thrombosis in the bilateral lower extremity in the segments as noted above. will d/c SCDS duplex discussion with vascular regarding IVC placement #Acute toxic metabolic encephalopathy *fluctuating/stable likely multifactorial--chronic leukoencephalopathy, delirium 2/2 chronic illness, malnutrition patient again developed progressive lethargy over the weekend Extensive workup including CT head, VBG, ammonia, TSH, cortisol, and infectious workup repeated-all unrevealing Neurology service reconsulted, does not recommend any other testing at this point avoid benzos/sedatives Encourage delirium precautions and sleep hygiene Continue to monitor closely #Malignant Bowel Obstruction #Small bowel Obstruction #Large Bowel Obstruction CT adb/pelvis noting transition point suggestive of obstruction Follow up KUB noting persistence of bowel obstruction Pt intially NPO, IV fluids, IV antiemetics, IV pain meds General surgery consulted, appreciate recs: no surgical intervention GI: no further stenting; conservative management Recurrent obstruction iso malignancy with recurrence of abdominal pain 06/16, CT abdomen and pelvis revealing small bowel obstruction with mesenteric hernia, and large bowel obstruction in the hepatic flexure, secondary to tethered gallbladder mass -PPN started -Poor intake, encouraged home megace -06/29, abdominal bloat/distention -Continue Dexamethsone for MBO, continue IV 6mg qd for 5 days (01/06) - agreeable to palliative care consult given need for optimizing symptomatic control v transitioning to GoC, difficult to broach conversation. NGT placed on 06/29 with notable feculent output -NGT removed by patient on 07/02 Surgery consulted: possible diverting ileostomy, to be further discussed in coming week with surgery; awaiting further discussions for surgical intervention #Acute on chronic Anemia Hgb <7 on 06/11 s/p transfusion 1U pRBCs Holding home eliquis at this time FOBT POSITIVE on 06/23, Hemoglobin 6.8 s/p 1 UPRBC Likely upper GI source, in light of NG tube, Eliquis use Monitor hemoglobin Continue Protonix IV twice daily Holding Eliquis for down trending Hgb Will continue heparin 2/2 risk for DVT -Discuss IVC filter placement with Vascular especially ? for upcoming surgery -Discussed with Aneta OHARA--will discuss case with Dr Snyder s/p 1 U PRBC 07/01 trend cbc #Transaminitis #Adenocarcinoma of gallbladder Last FOLFOX treatment 05/[address] Gross; transitioned to Dr. Christie Continue Megace 06/08- patient's family requested 5FU reversal, but not warranted at this time per Oncology As above GI consult for further recs per General Surgery. repeat CMP in am Family hopeful for a "treatment" and ways to get patient "out and to the clinic" -Discussing that this is complicated 2/2 to recurrent obstruction Manage conservatively as above #Chemotherapy induced Neutropenia *resolved #Lactic acidosis iso obstruction/dehydration sepsis ruled out Pt with progressing neutropenia, in the setting of recent chemotherapy Lactate initially 4.4 on admission ->normalized to 2.0 with fluids Chest XRAY with no acute infection UA unremarkable, respiratory testing negative, MRSA nares negative Blood Cx x1 set NGTD. 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 Development And Planning Engineer/Oncologist Dr Christie on 06/08, s/p neupogen 480 mcg subcu for neutropenia for 3 days Need prompt OP Onc follow up given patient's desire for pursuing further treatment #EUGENE superimposed on CKD *resolved 2/2 decreased oral intake/possible infection following chemo tx 05/30 Creatinine 2.36 on admission (previously 1.7 eight days prior) CTM, at baseline #Generalized weakness #Hyponatremiaresolved #Hypernatremia continue PPN and trend BMP #Hypokalemia #Hypocalcemia #Hypophosphatemia replacement underway #Malnutrition Likely in setting of above Associate Director consult PPN on going #H/o DVT Eliquis held for SBO, possible emergency procedures held heparin sq; vascular to discuss case #HTN (hypertension) Continue atenolol #History of breast cancer S/p left partial mastectomy, XRT, 5 years of tamoxifen completed in August 2022 #Restless legs syndrome (RLS) Clonazepam HS PRN #Acute respiratory alkalosis secondary metabolic alkalosis resolved #Diarrhea improved Resolved at this time Diet: regular, PPN DVT Ppx: Eliquis held, sq Heparin on hold Code status: FULL PCP: [facility] Dispo: pending Admission and Anticipated Discharge Date Admission Date: June 06, 2024 Subjective NAEO No new concerns, reports feeling "good today" and even hungry now Physical Exam Constitutional: WD/WN, vitals as above chronically ill appearing woman Respiratory: normal respiratory effort, lungs clear to auscultation Cardiovascular: RRR Gastrointestinal (Abdomen): normal bowel sounds, soft, nontender, no hepatosplenomegaly Skin: 2+ pitting edema RLE Results & Data Results & Data Vital Signs (Past 12 Hours) Vital Signs Temp Pulse Pulse Resp BP Pulse Ox O2 Del Method 07/03/24 10:44 36.6 C 89 16 122/70 98 Room Air 07/03/24 08:00 88 07/03/24 07:00 36.8 C 91 H 20 127/82 100 Room Air 07/03/24 04:00 36.8 C 88 16 127/84 99 Room Air 07/02/24 23:52 36.4 C L 92 H 16 123/80 100 Room Air Laboratory Results Short CBC 07/03/24 Range/Units 07:56 WBC 7.97 (4.8-10.8) K/ul Hgb 7.6 L (12.0-16.0) g/dl Hct 22.5 L (37.0-47.0) % Plt Count 166 (130-400) K/uL BMP 07/03/24 07:56 Sodium 133 L Potassium 4.0 Chloride 104 Carbon Dioxide 22 BUN 34 H Creatinine 0.64 Glucose 128 H Calcium 8.0 L Liver Function 07/03/24 Range/Units 07:56 Total Bilirubin 0.8 (0.2-1.0) mg/dl AST 40 H (13-39) U/L ALT 62 H (7-52) U/L Alkaline Phosphatase 213 H (34-104) U/L Albumin 2.2 L (3.4-5.0) gm/dl Medications Administered Home Medications Medication Instructions Recorded Confirmed Last Taken calcium carbonate 600 mg-vitamin 1 cap PO DAILY 04/08/22 06/06/24 Unknown D3 12.5 mcg (500 unit) capsule (Calcium 600 with Vitamin D3) atenolol 25 mg tablet 12.5 mg PO DAILY 12/03/22 06/06/24 Unknown clonazepam 0.5 mg tablet 0.5 mg PO HS PRN anxiety or sleep 12/03/22 06/06/24 Unknown magnesium 200 mg tablet 400 mg PO 2XD 06/29/23 06/06/24 Unknown apixaban 5 mg tablet (Eliquis) 5 mg PO BID 06/06/24 06/06/24 Unknown megestrol 625 mg/5 mL (125 mg/mL) 2 ml PO DAILY 06/06/24 06/06/24 Unknown oral suspension prochlorperazine maleate 10 mg 10 mg PO Q6H PRN Nausea 06/06/24 06/06/24 Unknown tablet Active Medications Generic Name Dose Route Start Last Admin Trade Name Freq PRN Reason Stop Dose Admin Acetaminophen 1,000 mg 06/13/24 10:15 06/27/24 14:01 Acetaminophen 500 Mg Tab PO 07/13/24 10:14 1,000 mg Q8H PRN Administration Mild Pain (Scale 1, 2, 3) Apixaban 5 mg 06/07/24 09:00 06/21/24 11:50 Apixaban 5 Mg Tablet PO 07/07/24 08:59 Not Given BID JOSEPH Atenolol 12.5 mg 06/07/24 09:00 07/03/24 10:00 Atenolol 25 Mg Tablet PO 07/07/24 08:59 Not Given DAILY [facility] Calcium/Vitamin D 1 tab 06/07/24 09:00 07/03/24 10:00 Calcium 600mg + Vit D 400 Iu Tab PO 07/07/24 08:59 Not Given DAILY JOSEPH Heparin Sodium (Porcine) 5 ml 06/08/24 01:20 06/20/24 05:24 Heparin 100 Unit/Ml 5ml Flush FLUSH 07/08/24 01:19 5 ml PRN PRN Administration Flush Heparin Sodium (Porcine) 5,000 units 06/22/24 14:00 06/23/24 14:09 Heparin Sod 5,000 Unit/0.5 Ml Vial SQ 07/22/24 13:59 5,000 units Q8 JOSEPH Administration Pantoprazole Sodium 40 mg/ 10 mls @ 5 mls/min 06/21/24 21:00 07/03/24 10:01 Syringe IV 07/21/24 20:59 5 mls/min BID JOSEPH Administration Dexamethasone 6 mg/ Syringe 1.5 mls @ 1 mls/min 06/30/24 09:00 07/03/24 10:01 IV 07/30/24 08:59 1 mls/min DAILY JOSEPH Administration Acetaminophen 1,000 mg in 100 mls @ 400 mls/hr 07/01/24 00:45 07/01/24 10:12 Ofirmev IV 07/04/24 00:44 Infused Q8H PRN Infusion pain/fever Amino Acids/Dextrose 1,123 ml/ 1,123 mls @ 46.8 mls/hr 07/02/24 16:00 07/02/24 15:59 Nutrition (Parenteral) IV 07/03/24 15:59 46.8 mls/hr .Q24H JOSEPH Administration Protocol Insulin Aspart 0 units 06/30/24 00:00 07/03/24 05:58 Insulin Aspart Per Unit Charge SC 07/30/24 00:00 1 units Q6 JOSEPH Administration Lidocaine 1 patch 06/13/24 10:30 07/03/24 10:01 Lidocaine 5% 1 Patch TD 07/13/24 10:29 1 patch QAM JOSEPH Administration Magnesium Oxide 400 mg 06/06/24 21:40 06/19/24 09:28 Magnesium Oxide 400 Mg Tab PO 07/06/24 21:39 Not Given BID JOSEPH Megestrol Acetate 250 mg 06/18/24 09:00 07/03/24 10:01 Megestrol Acetate Susp 400 Mg/10 Ml Udc PO 07/18/24 08:59 Not Given DAILY JOSEPH Miscellaneous 1 each 06/13/24 21:00 07/02/24 19:49 Remove Lidoderm Patch N/A 07/13/24 20:59 1 each DAILY@2100 JOSEPH Administration Miscellaneous 1 each 06/20/24 16:00 06/25/24 15:16 Check Scopolamine Patch Placement N/A 07/20/24 15:59 Not Given QS JOSEPH Miscellaneous 1 each 06/23/24 11:45 07/02/24 15:42 Remove Transderm-Scop Patch N/A 07/23/24 11:44 Not Given Q72H JOSEPH Miscellaneous 1 each 06/27/24 22:00 07/02/24 22:05 Stop Clinolipid N/A 07/27/24 21:59 1 each Q24H JOSEPH Administration Potassium Chloride 40 meq 06/14/24 09:15 06/24/24 08:29 Potassium Chloride Pwd 20 Meq Pack PO 07/14/24 09:14 Not Given BID JOSEPH Potassium Phosphate 2 tab 06/10/24 13:00 06/24/24 21:15 Pot Phosphate Monobasic W/ Sod Tab PO 07/10/24 12:59 Not Given QID JOSEPH Saccharomyces Boulardii 250 mg 06/17/24 09:00 06/28/24 17:23 Saccharomyces Boulardii 250 Mg Cap PO 07/17/24 08:59 Not Given DAILY JOSEPH Scopolamine 1 patch 06/20/24 11:45 06/23/24 11:52 Scopolamine 1 Mg/72 Hr Tdsy Patch TD 07/20/24 11:44 1 patch Q72H JOSEPH Administration
--- NOTE | 2024-07-03 13:41 | Ultrasound Report ---
BILATERAL LOWER EXTREMITY VENOUS DOPPLER HISTORY: Acute pain and swelling of the lower legs swelling COMPARISON STUDY: None. FINDINGS: There is normal compressibility, flow, and augmentation within the bilateral lower extremit y deep venous systems. Limited visualization of the calf veins. IMPRESSION: No DVT within the right or left lower extremity. ACT 112: Negative or not required by law. Electronically signed by: Meng Lester M.D. 07/03/2024 1:39 PM
[2024-07-03] MEDS: CLINOLIPID 20% IV FAT EMULSION 250 ML IV SCH (16:50)
[2024-07-03] MEDS: CENTRAL TPN IV SCH (16:51)
[2024-07-03] MEDS: [UNRECOGNIZED DRUG - OTHER] IV SCH (16:51)
[2024-07-04 08:20] LABS: Hematocrit (blood only) 24.6 % (37.0-47.0); Hemoglobin 7.9 g/dl (12.0-16.0); Mean Corpuscular Hemoglobin 31.1 pg (25.0-34.0); Mean Corpuscular Hgb Conc 32.1 g/dL (32.0-36.0); Mean Corpuscular Volume 96.9 fL (80.0-100.0); Mean Platelet Volume 9.6 fL (9.4-12.4); Platelet Count 157 K/uL (130-400); RDW Standard Deviation 66.6 fL (36.4-46.3); Red Blood Count 2.54 M/uL (4.20-5.40); White Blood Count 8.35 K/ul (4.8-10.8)
--- NOTE | 2024-07-04 15:24 | Hospitalist Progress Note ---
Date of Service July 04, 2024 Assessment & Plan (1) Acute kidney injury superimposed on CKD: (2) Elevated lactic acid level: (3) Acute hyponatremia: (4) Adenocarcinoma of gallbladder: (5) History of DVT (deep vein thrombosis): (6) Anxiety: Plan Ms. 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 Patient found to have bowel obstruction. This bowel obstruction was management conservatively. Surgery signed off--stating that surgical intervention will only be pursued in an emergent situation. GI evaluated patient and spoke to Dr Morris, who placed stent. The concern of eroding tumor may be contributing to occult anemia. From 06/17 to 06/18, patient with more alertness and ability to participate in exam. Attempting to eat more as able. Noted that liver enzymes are uptrending and given vague discomfort will order KUB to start to assess obstruction and will consider repeat CT ABD/P contingent on trend of LFTS. On 06/19, it was expressed to that patients medical condition is tenuous. That regardless of "where" she discharges it is hard to say when the recurrence of symptoms may come and if/when she may come back.. Expressed need for prompt Onc follow up to establish plan. From 06/21 to 06/27, patient developed recurrence of abdominal pain, CT abdomen and pelvis revealing small bowel obstruction with mesenteric hernia, and large bowel obstruction in the hepatic flexure, secondary to tethered gallbladder mass. This was managed with conservative measures and small bowel follow through confirmed resolution. However, patient with marked lethargy and fluctuating delirium. patient remains on PPN due to poor po intake. Discussion was had with Dr. Christie--requested encounter with family to discuss treatment options given complicated and prolonged course in hospital. Patient's states Dr. Christie spoke with him and his daughter on 06/28--stating something to the effect that "she has to get through this to get to the clinic." Concern for looming reobstruction, will start management for malignant bowel obstruction. After thoughtful conversation with Palliative and , plan to continue 5 day course of IV dexamethasone. Discussed case with Dr Montenegro over the phone who will discuss possible diverting ileostomy with Dr. Garcia. Patient is a high risk, however, this procedure could provide bridge for home. On 07/01, kruse exchanged and patient recieved 1 UPRBC. Heparin and eliquis held. Patient high risk for DVTs iso malignant and hx there of. Vascular to discuss appropriateness of IVC filter especially given question of possible surgery. Patient did remove NGT on 07/02. 2 mucoid BM reported, BS +. Will continue NPO status and monitor bowel function, symptoms if need for decompression recurs. Doppler pursued on 07/03 which was negative for DVT. Resumed SCD/rob stockings in interim On 07/04, discussion was had between Dr. Montenegro and Dr. Garcia. Ultimately, Dr. Garcia confirmed OR for diverting ostomy on 07/10. In interim, will trial CLD per family request understanding risks.plan to continue TPN #RLE edema #Recent DVT BLE 03/2024: Acute deep venous thrombosis in the bilateral lower extremity in the segments as noted above. 07/03/2024: no DVT RESUME SCDs/Rob stockings Consider heparin, however, concern occult bleeding from tumor #Malignant Bowel Obstruction #Small bowel Obstruction #Large Bowel Obstruction CT adb/pelvis noting transition point suggestive of obstruction Follow up KUB noting persistence of bowel obstruction Pt intially NPO, IV fluids, IV antiemetics, IV pain meds General surgery consulted, appreciate recs: no surgical intervention GI: no further stenting; conservative management Recurrent obstruction iso malignancy with recurrence of abdominal pain 06/16, CT abdomen and pelvis revealing small bowel obstruction with mesenteric hernia, and large bowel obstruction in the hepatic flexure, secondary to tethered gallbladder mass -PPN started -Poor intake, encouraged home megace -06/29, abdominal bloat/distention; NGT placed on 06/29 with notable feculent output, removed by patient on 07/02 - agreeable to palliative care consult given need for optimizing symptomatic control v transitioning to GoC, difficult to broach conversation. -Surgery consulted: possible diverting ileostomy, to be further discussed in coming week with surgery; awaiting further discussions for surgical intervention -Completed course Dexamethsone for MBO, continue IV 6mg qd for 5 days (5/5) -Plan for diverting ostomy with Dr. Garcia on 07/10, NPO midnight Wednesday #Acute on chronic Anemia Hgb <7 on 06/11 s/p transfusion 1U pRBCs Holding home eliquis at this time FOBT POSITIVE on 06/23, Hemoglobin 6.8 s/p 1 UPRBC Likely upper GI source, in light of NG tube, Eliquis use Monitor hemoglobin Continue Protonix IV twice daily Holding Eliquis for down trending Hgb Will continue heparin 2/2 risk for DVT -Discuss IVC filter placement with Vascular especially ? for upcoming surgery -Discussed with Aneta OHARA: given no active DVT, no indication for IVC s/p 1 U PRBC 07/01 trend cbc, consider heparin sq -teds/scds for now transfuse prn hgb <7.0 #Acute toxic metabolic encephalopathy *fluctuating/stable likely multifactorial--chronic leukoencephalopathy, delirium 2/2 chronic illness, malnutrition patient again developed progressive lethargy over the weekend Extensive workup including CT head, VBG, ammonia, TSH, cortisol, and infectious workup repeated-all unrevealing Neurology service reconsulted, does not recommend any other testing at this point avoid benzos/sedatives Encourage delirium precautions and sleep hygiene Continue to monitor closely #Transaminitis #Adenocarcinoma of gallbladder Last FOLFOX treatment 05/[address] Gross; transitioned to Dr. Christie Continue Megace 06/08- patient's family requested 5FU reversal, but not warranted at this time per Oncology As above GI consult for further recs per General Surgery. Family hopeful for a "treatment" and ways to get patient "out and to the clinic" -Discussing that this is complicated 2/2 to recurrent obstruction Manage conservatively as above #Chemotherapy induced Neutropenia *resolved #Lactic acidosis iso obstruction/dehydration sepsis ruled out Pt with progressing neutropenia, in the setting of recent chemotherapy Lactate initially 4.4 on admission ->normalized to 2.0 with fluids Chest XRAY with no acute infection UA unremarkable, respiratory testing negative, MRSA nares negative Blood Cx x1 set NGTD. 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 Tourist Camp Attendant/Oncologist Dr Christie on 06/08, s/p neupogen 480 mcg subcu for neutropenia for 3 days Need prompt OP Onc follow up given patient's desire for pursuing further treatment #EUGENE superimposed on CKD *resolved 2/2 decreased oral intake/possible infection following chemo tx 05/30 Creatinine 2.36 on admission (previously 1.7 eight days prior) CTM, at baseline #Generalized weakness #Hyponatremiaresolved #Hypernatremia continue PPN and trend BMP #Hypokalemia #Hypocalcemia #Hypophosphatemia replacement underway #Malnutrition Likely in setting of above Inker Machine consult PPN on going #H/o DVT Eliquis held for SBO, possible emergency procedures held heparin sq; vascular to discuss case: no indication of IVC at this time #HTN (hypertension) Continue atenolol #History of breast cancer S/p left partial mastectomy, XRT, 5 years of tamoxifen completed in August 2022 #Restless legs syndrome (RLS) Clonazepam HS PRN #Acute respiratory alkalosis secondary metabolic alkalosis resolved #Diarrhea improved Resolved at this time Diet: regular, PPN DVT Ppx: Eliquis held, sq Heparin on hold; SCDs/ rob stockings Code status: FULL PCP: Loreta Dispo: pending Admission and Anticipated Discharge Date Admission Date: June 06, 2024 Subjective NAEO Reports feeling very thirsty Mucoid BM and passing gas No abdominal pain, nausea, vomiting Physical Exam Constitutional: WD/WN, vitals as above Respiratory: normal respiratory effort, lungs clear to auscultation Cardiovascular: no murmur, regular, tachycardic Gastrointestinal (Abdomen): normal bowel sounds, soft, nontender, no hepatosplenomegaly Skin: edema 1+BLE Results & Data Results & Data Vital Signs (Past 12 Hours) Vital Signs Temp Pulse Pulse Resp BP Pulse Ox O2 Del Method 07/04/24 11:41 36.8 C 101 H 19 120/82 98 Room Air 07/04/24 11:03 105 H 07/04/24 07:17 37.2 C 104 H 20 131/90 98 Room Air 07/04/24 03:37 37.0 C 105 H 18 124/70 96 Room Air Laboratory Results Short CBC 07/04/24 Range/Units 08:05 WBC 8.35 (4.8-10.8) K/ul Hgb 7.9 L (12.0-16.0) g/dl Hct 24.6 L (37.0-47.0) % Plt Count 157 (130-400) K/uL Medications Administered Home Medications Medication Instructions Recorded Confirmed Last Taken calcium carbonate 600 mg-vitamin 1 cap PO DAILY 04/08/22 06/06/24 Unknown D3 12.5 mcg (500 unit) capsule (Calcium 600 with Vitamin D3) atenolol 25 mg tablet 12.5 mg PO DAILY 12/03/22 06/06/24 Unknown clonazepam 0.5 mg tablet 0.5 mg PO HS PRN anxiety or sleep 12/03/22 06/06/24 Unknown magnesium 200 mg tablet 400 mg PO 2XD 06/29/23 06/06/24 Unknown apixaban 5 mg tablet (Eliquis) 5 mg PO BID 06/06/24 06/06/24 Unknown megestrol 625 mg/5 mL (125 mg/mL) 2 ml PO DAILY 06/06/24 06/06/24 Unknown oral suspension prochlorperazine maleate 10 mg 10 mg PO Q6H PRN Nausea 06/06/24 06/06/24 Unknown tablet Active Medications Generic Name Dose Route Start Last Admin Trade Name Freq PRN Reason Stop Dose Admin Acetaminophen 1,000 mg 06/13/24 10:15 06/27/24 14:01 Acetaminophen 500 Mg Tab PO 07/13/24 10:14 1,000 mg Q8H PRN Administration Mild Pain (Scale 1, 2, 3) Apixaban 5 mg 06/07/24 09:00 06/21/24 11:50 Apixaban 5 Mg Tablet PO 07/07/24 08:59 Not Given BID JOSEPH Atenolol 12.5 mg 06/07/24 09:00 07/04/24 09:48 Atenolol 25 Mg Tablet PO 07/07/24 08:59 Not Given DAILY [facility] Calcium/Vitamin D 1 tab 06/07/24 09:00 07/04/24 09:48 Calcium 600mg + Vit D 400 Iu Tab PO 07/07/24 08:59 Not Given DAILY JOSEPH Heparin Sodium (Porcine) 5 ml 06/08/24 01:20 06/20/24 05:24 Heparin 100 Unit/Ml 5ml Flush FLUSH 07/08/24 01:19 5 ml PRN PRN Administration Flush Heparin Sodium (Porcine) 5,000 units 06/22/24 14:00 06/23/24 14:09 Heparin Sod 5,000 Unit/0.5 Ml Vial SQ 07/22/24 13:59 5,000 units Q8 JOSEPH Administration Pantoprazole Sodium 40 mg/ 10 mls @ 5 mls/min 06/21/24 21:00 07/04/24 09:34 Syringe IV 07/21/24 20:59 5 mls/min BID JOSEPH Administration Dexamethasone 6 mg/ Syringe 1.5 mls @ 1 mls/min 06/30/24 09:00 07/04/24 09:34 IV 07/30/24 08:59 1 mls/min DAILY JOSEPH Administration Amino Acids/Dextrose 1,123 ml/ 1,123 mls @ 46.8 mls/hr 07/03/24 16:00 07/03/24 16:51 Nutrition (Parenteral) IV 07/04/24 15:59 46.8 mls/hr .Q24H JOSEPH Administration Protocol Insulin Aspart 0 units 06/30/24 00:00 07/04/24 12:07 Insulin Aspart Per Unit Charge SC 07/30/24 00:00 2 units Q6 JOSEPH Administration Lidocaine 1 patch 06/13/24 10:30 07/04/24 09:33 Lidocaine 5% 1 Patch TD 07/13/24 10:29 1 patch QAM JOSEPH Administration Magnesium Oxide 400 mg 06/06/24 21:40 06/19/24 09:28 Magnesium Oxide 400 Mg Tab PO 07/06/24 21:39 Not Given BID JOSEPH Megestrol Acetate 250 mg 06/18/24 09:00 07/04/24 09:48 Megestrol Acetate Susp 400 Mg/10 Ml Udc PO 07/18/24 08:59 Not Given DAILY JOSEPH Miscellaneous 1 each 06/13/24 21:00 07/03/24 20:28 Remove Lidoderm Patch N/A 07/13/24 20:59 1 each DAILY@2100 JOSEPH Administration Miscellaneous 1 each 06/27/24 22:00 07/03/24 22:31 Stop Clinolipid N/A 07/27/24 21:59 1 each Q24H JOSEPH Administration Potassium Chloride 40 meq 06/14/24 09:15 06/24/24 08:29 Potassium Chloride Pwd 20 Meq Pack PO 07/14/24 09:14 Not Given BID JOSEPH Potassium Phosphate 2 tab 06/10/24 13:00 06/24/24 21:15 Pot Phosphate Monobasic W/ Sod Tab PO 07/10/24 12:59 Not Given QID JOSEPH Saccharomyces Boulardii 250 mg 06/17/24 09:00 06/28/24 17:23 Saccharomyces Boulardii 250 Mg Cap PO 07/17/24 08:59 Not Given DAILY JOSEPH Scopolamine 1 patch 06/20/24 11:45 06/23/24 11:52 Scopolamine 1 Mg/72 Hr Tdsy Patch TD 07/20/24 11:44 1 patch Q72H JOSEPH Administration
[2024-07-04] MEDS ORDERED: Nursing to Pharmacy Communication SCH (16:00)
[2024-07-04] MEDS: [UNRECOGNIZED DRUG - OTHER] IV SCH (16:02)
[2024-07-04] MEDS: CENTRAL TPN IV SCH (16:02)
[2024-07-04] MEDS: CLINOLIPID 20% IV FAT EMULSION 250 ML IV SCH (16:03)
[2024-07-04] MEDS: INSULIN ASPART PER UNIT CHARGE SC SCH (17:38)
[2024-07-05 08:48] LABS: Hematocrit (blood only) 25.4 % (37.0-47.0); Hemoglobin 8.4 g/dl (12.0-16.0); Mean Corpuscular Hemoglobin 31.8 pg (25.0-34.0); Mean Corpuscular Hgb Conc 33.1 g/dL (32.0-36.0); Mean Corpuscular Volume 96.2 fL (80.0-100.0); Mean Platelet Volume 10.1 fL (9.4-12.4); Platelet Count 184 K/uL (130-400); RDW Standard Deviation 63.6 fL (36.4-46.3); Red Blood Count 2.64 M/uL (4.20-5.40); White Blood Count 7.36 K/ul (4.8-10.8)
[2024-07-05 09:07] LABS: Albumin Globulin Ratio 0.6 (0.9-2); Albumin Level 2.4 gm/dl (3.4-5.0); BUN Creatinine Ratio 56.5 (10-20); Bilirubin,Total 0.9 mg/dl (0.2-1.0); Calcium 8.3 mg/dl (8.6-10.3); Creatinine Clr Calc Pharmacy 69.6 ml/min; Est GFR (African American) 98.7 ml/min; Est GFR (Non-African American) 85.2 ml/min; Globulin 3.9 gm/dl (2.5-4.0); Magnesium 2.1 mg/dl (1.7-2.4); Phosphorus 3.5 mg/dl (2.5-4.9); Potassium 4.5 mmol/L (3.5-5.1); Total Protein 6.3 gm/dl (6.0-8.3)
--- NOTE | 2024-07-05 15:17 | Hospitalist Progress Note ---
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 Patient was also noted to have bowel obstruction 2 days after presentation. This bowel obstruction was management conservatively. Surgery signed off--stating that surgical intervention will only be pursued in an emergent situation. GI evaluated patient and spoke to Dr Morris for possible stent placement. The concern of eroding tumor may be contributing to occult anemia. From 06/17 to 06/18, patient with more alertness and ability to participate in exam. Attempting to eat more as able. Noted that liver enzymes are uptrending and given vague discomfort will order KUB to start to assess obstruction and will consider repeat CT ABD/P contingent on trend of LFTS. On 06/19, it was expressed to that patients medical condition is tenuous. That regardless of "where" she discharges it is hard to say when the recurrence of symptoms may come and if/when she may come back. Expressed need for prompt Onc follow up to establish plan. From 06/21 to 06/27, patient developed recurrence of abdominal pain, CT abdomen and pelvis revealing small bowel obstruction with mesenteric hernia, and large bowel obstruction in the hepatic flexure, secondary to tethered gallbladder mass. This was managed with conservative measures and small bowel follow through confirmed resolution. However, patient with marked lethargy and fluctuating delirium. patient remains on PPN due to poor po intake. Prior attending's d/w Dr. Christie--requested encounter with family to discuss treatment options given complicated and prolonged course in hospital. Patient's states Dr. Christie spoke with him and his daughter on 06/28--stating someth ing to the effect that "she has to get through this to get to the clinic." Concern for looming reobstruction, will start management for malignant bowel obstruction. After thoughtful conversation with Palliative and , plan to continue 5 day course of IV dexamethasone. Discussed case with Dr Montenegro over the phone who will discuss possible diverting ileostomy with Dr. Garcia. Patient is a high risk, however, this procedure could provide bridge for home. On 07/01, kruse exchanged and patient recieved 1 UPRBC. Heparin and eliquis held. Patient high risk for DVTs iso malignant and hx there of. Vascular to discuss appropriateness of IVC filter especially given question of possible surgery. Patient did remove NGT on 07/02. Moving mucoid BM and gas after that. Doppler pursued on 07/03 which was negative for DVT. Resumed SCD/rob stockings in interim On 07/04, discussion was had between Dr. Montenegro and Dr. Garcia. Ultimately, Dr. Garcia confirmed OR for diverting ostomy on 07/10. In interim, will trial CLD per family request understanding risks. plan to continue TPN #RLE edema #Recent DVT BLE 03/2024: Acute deep venous thrombosis in the bilateral lower extremity in the segments as noted above. 07/03/2024: no DVT RESUME SCDs/Rob stockings Heparin on hold due to concern occult bleeding from tumor Pt and her aware of the increased risk of blood clot if not being on blood thinner lobito given her cancer status but given anemia (likely 2/2 eroding tumor) which could be exacerbated by blood thinner, they are ok w/ holding blood thinner. #Malignant Bowel Obstruction #Small bowel Obstruction #Large Bowel Obstruction Recurrent bowel obstructions, managed conservatively. CT abdomen and pelvis revealing small bowel obstruction with mesenteric hernia, and large bowel obstruction in the hepatic flexure, secondary to tethered gallbladder mass. General surgery consulted, appreciate recs: no surgical intervention GI: no further stenting; conservative management Palliative evaled given need for optimizing symptomatic control v transitioning to GoC, difficult to broach conversation. Completed course Dexamethsone for MBO, continue IV 6mg qd for 5 days (02/05) PPN started, continue. Poor intake, c/w home megace On clears since 07/04, pt denies N, V, abd pain. Reports moving gas. Gen Sx evaluating, plan for diverting ostomy on 07/10, NPO midnight wednesday. #Acute on chronic Anemia s/p 3 unit PRBC (06/12, 06/23, 07/01) so far, home eliquis on hold. FOBT positive Anemia multifactorial, major part played likely by eroding tumor contributing to occult anemia. Monitor HnH, transfuse for Hb < 7. Continue Protonix IV twice daily Holding Eliquis for down trending Hgb Prior attending discussed IVC filter placement with Vascular especially ? for upcoming surgery --> given no active DVT, no indication for IVC Heparin on hold given recurrent need for blood transfusion, teds/scds for now #Acute toxic metabolic encephalopathy *fluctuating/stable likely multifactorial--chronic leukoencephalopathy, delirium 2/2 chronic illness, malnutrition patient again developed progressive lethargy over the weekend Extensive workup including CT head, VBG, ammonia, TSH, cortisol, and infectious workup repeated-all unrevealing Neurology service reconsulted, does not recommend any other testing at this point avoid benzos/sedatives Encourage delirium precautions and sleep hygiene Continue to monitor closely #Transaminitis #Adenocarcinoma of gallbladder Last FOLFOX treatment 05/[address] Gross; transitioned to Dr. Christie Continue Megace 06/08- patient's family requested 5FU reversal, but not warranted at this time per Oncology As above GI consult for further recs per General Surgery. Family hopeful for a "treatment" and ways to get patient "out and to the clinic" -Discussing that this is complicated 2/2 to recurrent obstruction Manage conservatively as above #Chemotherapy induced Neutropenia *resolved #Lactic acidosis iso obstruction/dehydration sepsis ruled out Pt with progressing neutropenia, in the setting of recent chemotherapy Lactate initially 4.4 on admission ->normalized to 2.0 with fluids Chest XRAY with no acute infection UA unremarkable, respiratory testing negative, MRSA nares negative Blood Cx x1 set NGTD. 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 Chief Of Hospital Medicine/Oncologist Dr Christie on 06/08, s/p neupogen 480 mcg subcu for neutropenia for 3 days Need prompt OP Onc follow up if patient desires for pursuing further treatment #EUGENE superimposed on CKD *resolved 2/2 decreased oral intake/possible infection following chemo tx 05/30 Creatinine 2.36 on admission (previously 1.7 eight days prior) CTM, at baseline #Generalized weakness #Hyponatremiaresolved #Hypernatremia continue PPN and trend BMP #Hypokalemia #Hypocalcemia #Hypophosphatemia replacement underway #Malnutrition Likely in setting of above Chief Operations Officer consult PPN on going #H/o DVT Eliquis held for SBO, possible emergency procedures held heparin sq; vascular to discuss case: no indication of IVC at this time #HTN (hypertension) Continue atenolol #History of breast cancer S/p left partial mastectomy, XRT, 5 years of tamoxifen completed in August 2022 #Restless legs syndrome (RLS) Clonazepam HS PRN #Acute respiratory alkalosis secondary metabolic alkalosis resolved #Diarrhea improved Resolved at this time Diet: regular, PPN DVT Ppx: Eliquis held, sq Heparin on hold; SCDs/ rob stockings Code status: FULL PCP: Loreta Dispo: pending Admission and Anticipated Discharge Date Admission Date: June 06, 2024 Subjective Patient was seen and examined at bedside. Patient was lying in bed, on room air, NAD, resting comfortably. Patient denies shortness of breath or pain, reports moving gas and having small BM but not sure when the last BM was. Patient denies nausea or vomiting. Patient denies trouble swallowing but patient noted to have difficulty swallowing per RN. Speech consult placed. It was brought to my attention per RN that the patient would like to go home and would like to quit getting further management while in hospital. Revisited peter rdz at bedside early afternoon. With patient's RN and myself, we discussed her wishes regarding ongoing treatment. Patient states that she is considering not having surgery but has not told her . Patient states that she is tired of her current situation and she is aware that she not going to get better or her cancer is not going to get cured and hence she would like to quit ongoing treatment and would like to go home. When asked if she had discussed such things with her family and her , she states that she has not. We discussed about role of diverting ostomy as a symptom management for her recurrent bowel obstruction and at which point we might be able to advance the diet. Answered all her questions. Patient was alert and oriented to time/place/person/situation. Patient voiced understanding and stated that she would discuss with her today and would like to rediscuss this issues again tomorrow. Physical Exam Physical Exam: General- oriented x 3, not in distress, speaks in sentences with no effort or accessory muscle use. Appears ill/frail/weak. Eyes- anicteric Neck- no JVD Lungs- clear breath sounds bilaterally, no rales/wheezes Heart- normal rate, regular rhythm; no murmurs Abdomen- normal bowel sounds, nondistended, soft, nontender Extremities- no pretibial edema, no calf tenderness Neuro- Sleepy but answering questions, oriented x 3; no new gross focal neurologic deficits Skin- warm & dry Results & Data Results & Data Vital Signs (Past 12 Hours) Vital Signs Temp Pulse Pulse Resp BP Pulse Ox O2 Del Method 07/05/24 15:00 36.8 C 83 18 115/80 98 Room Air 07/05/24 14:05 87 07/05/24 11:07 36.1 C L 95 H 18 127/88 98 Room Air 07/05/24 09:45 93 H 07/05/24 07:51 Room Air 07/05/24 07:06 36.9 C 94 H 18 122/84 99 Room Air 07/05/24 03:34 36.8 C 89 18 131/85 97 Room Air
[2024-07-05] MEDS: [UNRECOGNIZED DRUG - OTHER] IV SCH (16:06)
[2024-07-05] MEDS: CENTRAL TPN IV SCH (16:06)
[2024-07-05] MEDS: CLINOLIPID 20% IV FAT EMULSION 250 ML IV SCH (16:08)
[2024-07-06 06:42] LABS: Hematocrit (blood only) 24.5 % (37.0-47.0); Hemoglobin 8.1 g/dl (12.0-16.0); Mean Corpuscular Hemoglobin 31.8 pg (25.0-34.0); Mean Corpuscular Hgb Conc 33.1 g/dL (32.0-36.0); Mean Corpuscular Volume 96.1 fL (80.0-100.0); Mean Platelet Volume 10.2 fL (9.4-12.4); Nucleated RBC # (auto) 0.03 K/uL (0.00-0.12); Nucleated RBC % (auto) 0.3 %; Platelet Count 192 K/uL (130-400); RDW Coefficient of Variation 17.6 % (11.5-14.5); RDW Standard Deviation 61.7 fL (36.4-46.3); Red Blood Count 2.55 M/uL (4.20-5.40); White Blood Count 9.03 K/ul (4.8-10.8)
[2024-07-06 07:05] LABS: Calcium 8.4 mg/dl (8.6-10.3); Potassium 4.5 mmol/L (3.5-5.1)
[2024-07-06 07:11] LABS: BUN Creatinine Ratio 62.1 (10-20)
--- NOTE | 2024-07-06 14:06 | Pharmacy Report ---
Pharmacy PN Follow-up Note - Date of Service July 06, 2024 - Subjective Patient is currently on day #15 of TPN for prolonged NPO secondary to SBO/adenocarcinoma of gallbladder - Objective Height & Weight (Last Documented) Height 5 ft 5 in Weight 71.4 kg Diet Order(s) 07/04/24 Lunch Diet Intake & Ouput (24hrs) 07/05/24 07/06/24 07/07/24 06:59 06:59 06:59 Intake Total 1373 / 1373 1480 / 1480 Output Total 1750 / 1750 2150 / 2150 Balance -377 / -377 -670 / -670 Selected Laboratory Results 07/06/24 06:04 Sodium 132 L Potassium 4.5 Chloride 102 Carbon Dioxide 23 Anion Gap 7 BUN 41 H Creatinine 0.66 BUN/Creatinine Ratio 62.1 H Glucose 132 H Calcium 8.4 L - Assessment & Plan Assessment: * Discussed with hospitalist today, plan is to continue TPN ongoing at this time * Plan is tentatively for OR on 07/10/24 for diverting ostomy * Electrolytes largely stable and WNL, persistent mild hyponatremia noted while on TPN * Macronutrients at goal, do not anticipate any major changes to TPN going forward Plan: * For Day #15 of TPN administration, the following will be ordered: * Macronutrients: * Amino Acids: 80 grams/day * Dextrose: 140 grams/day * Lipids: 50 grams/day * Micronutrients: * TPN electrolytes: 20 mL/day Contains 35 mEq Na, 20 mEq K, 4.5 mEq Ca, 5 mEq Mg, 35 mEq Cl, 29.5 mEq Acetate per 20 mL * Sodium chloride: 70 mEq/day * Sodium acetate: 80 mEq/day * Potassium phosphate: 30 mMol/day * Magnesium sulfate: 12.18 mEq/day * Multivitamins: 10 mL/day * Trace elements: 1 mL/day * Thiamine: 100 mg/day * Folic Acid: 1 mg/day * Total volume of 1113 mL will be infused over 24 hours and will provide 1296 kcal/day * Labs will be ordered per PN protocol. * Pharmacy will follow and adjust PN orders on a daily basis. Thank you!
--- NOTE | 2024-07-06 14:08 | Hospitalist Progress Note ---
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 Patient was also noted to have bowel obstruction 2 days after presentation. This bowel obstruction was management conservatively. Surgery signed off--stating that surgical intervention will only be pursued in an emergent situation. GI evaluated patient and spoke to Dr Morris for possible stent placement. The concern of eroding tumor may be contributing to occult anemia. From 06/17 to 06/18, patient with more alertness and ability to participate in exam. Attempting to eat more as able. Noted that liver enzymes are uptrending and given vague discomfort will order KUB to start to assess obstruction and will consider repeat CT ABD/P contingent on trend of LFTS. On 06/19, it was expressed to that patients medical condition is tenuous. That regardless of "where" she discharges it is hard to say when the recurrence of symptoms may come and if/when she may come back. Expressed need for prompt Onc follow up to establish plan. From 06/21 to 06/27, patient developed recurrence of abdominal pain, CT abdomen and pelvis revealing small bowel obstruction with mesenteric hernia, and large bowel obstruction in the hepatic flexure, secondary to tethered gallbladder mass. This was managed with conservative measures and small bowel follow through confirmed resolution. However, patient with marked lethargy and fluctuating delirium. patient remains on PPN due to poor po intake. Prior attending's d/w Dr. Christie--requested encounter with family to discuss treatment options given complicated and prolonged course in hospital. Patient's states Dr. Christie spoke with him and his daughter on 06/28--stating someth ing to the effect that "she has to get through this to get to the clinic." Concern for looming reobstruction, will start management for malignant bowel obstruction. After thoughtful conversation with Palliative and , plan to continue 5 day course of IV dexamethasone. Discussed case with Dr Montenegro over the phone who will discuss possible diverting ileostomy with Dr. Garcia. Patient is a high risk, however, this procedure could provide bridge for home. On 07/01, kruse exchanged and patient recieved 1 UPRBC. Heparin and eliquis held. Patient high risk for DVTs iso malignant and hx there of. Vascular to discuss appropriateness of IVC filter especially given question of possible surgery. Patient did remove NGT on 07/02. Moving mucoid BM and gas after that. Doppler pursued on 07/03 which was negative for DVT. Resumed SCD/rob stockings in interim On 07/04, discussion was had between Dr. Montenegro and Dr. Garcia. Ultimately, Dr. Garcia confirmed OR for diverting ostomy on 07/10. In interim, will trial CLD per family request understanding risks. plan to continue TPN #RLE edema #Recent DVT BLE 03/2024: Acute deep venous thrombosis in the bilateral lower extremity in the segments as noted above. 07/03/2024: no DVT RESUME SCDs/Rob stockings Heparin on hold due to concern occult bleeding from tumor Pt and her aware of the increased risk of blood clot if not being on blood thinner lobito given her cancer status but given anemia (likely 2/2 eroding tumor) which could be exacerbated by blood thinner, they are ok w/ holding blood thinner. #Malignant Bowel Obstruction #Small bowel Obstruction #Large Bowel Obstruction Recurrent bowel obstructions, managed conservatively. CT abdomen and pelvis revealing small bowel obstruction with mesenteric hernia, and large bowel obstruction in the hepatic flexure, secondary to tethered gallbladder mass. General surgery consulted, appreciate recs: no surgical intervention GI: no further stenting; conservative management Palliative evaled given need for optimizing symptomatic control v transitioning to GoC, difficult to broach conversation. Completed course Dexamethsone for MBO, continue IV 6mg qd for 5 days (02/05) PPN started, continue. Poor intake, c/w home megace On clears since 07/04, pt denies N, V, abd pain. Reports moving gas. Gen Sx evaluating, plan for diverting ostomy on 07/10, NPO midnight wednesday. #Acute on chronic Anemia s/p 3 unit PRBC (06/12, 06/23, 07/01) so far, home eliquis on hold. FOBT positive Anemia multifactorial, major part played likely by eroding tumor contributing to occult anemia. Monitor HnH, transfuse for Hb < 7. Continue Protonix IV twice daily Holding Eliquis for down trending Hgb Prior attending discussed IVC filter placement with Vascular especially ? for upcoming surgery --> given no active DVT, no indication for IVC Heparin on hold given recurrent need for blood transfusion, teds/scds for now #Acute toxic metabolic encephalopathy *fluctuating/stable likely multifactorial--chronic leukoencephalopathy, delirium 2/2 chronic illness, malnutrition patient again developed progressive lethargy over the weekend Extensive workup including CT head, VBG, ammonia, TSH, cortisol, and infectious workup repeated-all unrevealing Neurology service reconsulted, does not recommend any other testing at this point avoid benzos/sedatives Encourage delirium precautions and sleep hygiene Continue to monitor closely #Transaminitis #Adenocarcinoma of gallbladder Last FOLFOX treatment 05/[address] Gross; transitioned to Dr. Christie Continue Megace 06/08- patient's family requested 5FU reversal, but not warranted at this time per Oncology As above GI consult for further recs per General Surgery. Family hopeful for a "treatment" and ways to get patient "out and to the clinic" -Discussing that this is complicated 2/2 to recurrent obstruction Manage conservatively as above #Chemotherapy induced Neutropenia *resolved #Lactic acidosis iso obstruction/dehydration sepsis ruled out Pt with progressing neutropenia, in the setting of recent chemotherapy Lactate initially 4.4 on admission ->normalized to 2.0 with fluids Chest XRAY with no acute infection UA unremarkable, respiratory testing negative, MRSA nares negative Blood Cx x1 set NGTD. 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 Battalion Chief/Oncologist Dr Christie on 06/08, s/p neupogen 480 mcg subcu for neutropenia for 3 days Need prompt OP Onc follow up if patient desires for pursuing further treatment #EUGENE superimposed on CKD *resolved 2/2 decreased oral intake/possible infection following chemo tx 05/30 Creatinine 2.36 on admission (previously 1.7 eight days prior) CTM, at baseline #Generalized weakness #Hyponatremiaresolved #Hypernatremia continue PPN and trend BMP #Hypokalemia #Hypocalcemia #Hypophosphatemia replacement underway #Malnutrition Likely in setting of above Cad Application Support Specialist consult PPN on going #H/o DVT Eliquis held for SBO, possible emergency procedures held heparin sq; vascular to discuss case: no indication of IVC at this time #HTN (hypertension) Continue atenolol #History of breast cancer S/p left partial mastectomy, XRT, 5 years of tamoxifen completed in August 2022 #Restless legs syndrome (RLS) Clonazepam HS PRN #Acute respiratory alkalosis secondary metabolic alkalosis resolved #Diarrhea improved Resolved at this time Diet: regular, PPN DVT Ppx: Eliquis held, sq Heparin on hold; SCDs/ rob stockings Code status: FULL PCP: Loreta Dispo: pending total time spent: 70 minutes Admission and Anticipated Discharge Date Admission Date: June 06, 2024 Subjective Patient was seen and examined at bedside. Patient was lying in bed, on room air, NAD, resting comfortably. Patient denies shortness of breath or pain, reports moving gas and having small BM x2 since yesterday. Patient denies nausea or vomiting. Patient denies trouble swallowing. Per pt's wishes yesterday, discussion was held between pt and her at bedside. We (myself and RN) had a discussion yesterday with the patient alone where she expressed her indecisiveness regarding upcoming surgery. Yesterday, it appeared that patient is reluctant to go through surgery, she wanted to quit all the treatments and go home on hospice. After our discussion, she stated that she will further discuss with her and come up with a decision. Today we had a follow-up discussion with patient and her at bedside. We discussed about upcoming surgery, possible outcome and possible course of action following that. Given advanced age, frailty and advanced cancer status, we also discussed about going home on hospice/comfort care. I answered all their questions. The patient's Toño was at bedside and reiterated that many physicians has already stated to him that she has a very poor prognosis and surgery might not be a good idea as she might not be able to tolerate the surgery. But he still believes that she might do better after the surgery and states that they will come to a conclusion after having further discussion on it. Total time spent in this goals of care discussion was about 30 minutes. Physical Exam Physical Exam: General- oriented x 3, not in distress, speaks in sentences with no effort or accessory muscle use. Appears ill/frail/weak. Eyes- anicteric Neck- no JVD Lungs- clear breath sounds bilaterally, no rales/wheezes Heart- normal rate, regular rhythm; no murmurs Abdomen- normal bowel sounds, nondistended, soft, nontender Extremities- no pretibial edema, no calf tenderness Neuro- Sleepy but answering questions, oriented x 3; no new gross focal neurologic deficits Skin- warm & dry Results & Data Results & Data Vital Signs (Past 12 Hours) Vital Signs Temp Pulse Pulse Resp BP Pulse Ox O2 Del Method 07/06/24 11:17 37.3 C 86 17 111/73 99 Room Air 07/06/24 08:50 Room Air 07/06/24 07:50 37.0 C 88 17 119/81 98 Room Air 07/06/24 07:22 84 07/06/24 04:05 82 07/06/24 04:05 Room Air 07/06/24 03:08 36.6 C 81 17 124/85 99 Room Air
[2024-07-06] MEDS: [UNRECOGNIZED DRUG - OTHER] IV SCH (15:51)
[2024-07-06] MEDS: CLINOLIPID 20% IV FAT EMULSION 250 ML IV SCH (15:51)
[2024-07-06] MEDS: CENTRAL TPN IV SCH (15:51)
[2024-07-06] MEDS: MELATONIN 3 MG TAB PO PRN (21:48)
[2024-07-07] MEDS: ALBUMIN 25% 25 GM/100 ML VIAL IV ONE (05:33)
[2024-07-07 06:33] LABS: Appearance Urine Cloudy (Clear); Bacteria Urine Automated 4+ (None Seen); Bilirubin Urine Negative (Negative); Blood Urine Negative (Negative); Color Urine Yellow; Epithelial Cell Urine Auto 0-2 /hpf (0-2); Glucose Urine UA Negative (Negative); Ketones Urine Negative (Negative); Leukocyte Esterase Urine 3+ (Negative); Nitrite Urine Positive (Negative); Protein Urine 1+ (Negative); RBC Urine Automated 0-2 /hpf (0-2); Specific Gravity Urine 1.019 (1.000-1.030); Urobilinogen Urine Positive (Negative); WBC Urine Automated >50 /hpf (0-5)
--- NOTE | 2024-07-07 06:57 | Communication Note ---
Date of Service: July 07, 2024 Patient noted to be febrile as per RN. Abdominal tenderness on palpation as per RN. Urine noted to be malodorous and cloudy as per RN. AP Complicated UTI Urine CS, cefepime CT abdomen pelvis given abdominal tenderness
[2024-07-07] MEDS: CEFEPIME 2000MG 2,000 MG/20 ML SYR IV SCH (07:31)
[2024-07-07 07:50] LABS: Hematocrit (blood only) 22.3 % (37.0-47.0); Hemoglobin 7.2 g/dl (12.0-16.0); Mean Corpuscular Hemoglobin 31.3 pg (25.0-34.0); Mean Corpuscular Hgb Conc 32.3 g/dL (32.0-36.0); Mean Platelet Volume 10.1 fL (9.4-12.4); Nucleated RBC # (auto) 0.04 K/uL (0.00-0.12); Nucleated RBC % (auto) 0.5 %; Platelet Count 176 K/uL (130-400); RDW Coefficient of Variation 17.5 % (11.5-14.5); RDW Standard Deviation 61.6 fL (36.4-46.3); White Blood Count 7.54 K/ul (4.8-10.8)
[2024-07-07 08:03] LABS: Albumin Globulin Ratio 0.9 (0.9-2); Albumin Level 2.9 gm/dl (3.4-5.0); BUN Creatinine Ratio 58.4 (10-20); Bilirubin,Total 0.9 mg/dl (0.2-1.0); Calcium 8.5 mg/dl (8.6-10.3); Creatinine Clr Calc Pharmacy 62.5 ml/min; Globulin 3.2 gm/dl (2.5-4.0); Phosphorus 3.8 mg/dl (2.5-4.9); Potassium 4.4 mmol/L (3.5-5.1); Total Protein 6.1 gm/dl (6.0-8.3)
[2024-07-07] MEDS: OPTIRAY 320 100ml IV ONE (08:34)
--- NOTE | 2024-07-07 09:11 | CT Scan Report ---
CT OF THE ABDOMEN AND PELVIS WITH CONTRAST CLINICAL HISTORY: Abdominal pain and fever. Gallbladder cancer. COMPARISON STUDY: CT of the abdomen and pelvis June 21, 2024. KUB June 29, 2024. Small bow el follow-through June 23, 2024. TECHNIQUE: Following IV administration of 94 mL of Optiray, axial images of the abdomen and pelvis we re obtained from the lung bases to the proximal femurs. Images were reviewed in the axial, sagittal, and coronal planes. IV contrast was administered without complication. Automated exposure control wa s utilized for the study. A dose lowering technique was utilized adhering to the principles of ALARA . CT DOSE: 1178.21 mGy.cm FINDINGS: No pneumatosis, free air or portal venous gas is present. A mass within the avis hepatis m easures 5.1 x 4.8 cm, similar to CT of June 21, 2024. This mass is adjacent to the distal stomac h and proximal duodenum. In addition, this mass abuts the hepatic flexure of the colon and results in a high-grade colonic obstruction. There is persistent oral contrast within the right colon and small bowel from small bowel follow-through of June 23, 2024. No additional transition sites are note d. The transverse colon and descending colon are decompressed. A biliary stent is in place. This exte nds into the left hepatic duct. There is pneumobilia within the left hepatic ducts. There is moderate dilatation of the right lobe intrahepatic ducts. There are no discrete hepatic lesions. Heterogeneit y of the spleen is likely due to the phase of enhancement. There are bilateral renal parapelvic cysts . Gastrojejunostomy remains in place. There is no abdominal or pelvic lymphadenopathy. There is trace fluid within the pelvis. A 3.1 cm density adjacent to the sigmoid colon image 292 is present. No acu te fractures are present. L2 compression fractures unchanged. A Joyner balloon within the bladder is n oted. Major vasculature is patent. IMPRESSION: 1. No significant change in a 5.1 cm infiltrative avis hepatis mass consistent with known malignancy . This results in a persistent high-grade colonic obstruction at the level of the hepatic flexure wit h persistent oral contrast within the right colon and small bowel from small bowel follow-through of June 23, 2024. 2. Biliary stent in place which drains the left hepatic ducts with expected pneumobilia. Findings sug gestive of obstruction of the right intrahepatic bile ducts with moderate dilatation of the right lob e ducts. 3. 3.1 cm density adjacent to the sigmoid colon. This could simply represent the left ovary however i s indeterminate and can be assessed on follow-up exams. 4. Trace fluid within the pelvis. ACT 112: Negative or not required by law. Electronically signed by: Jerel Jones M.D. 07/07/2024 9:09 AM
[2024-07-07] MEDS ORDERED: SODIUM CHLORIDE 0.9% 250 ML IV PRN (09:43)
--- NOTE | 2024-07-07 14:23 | Hospitalist Progress Note ---
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 Patient was also noted to have bowel obstruction 2 days after presentation. This bowel obstruction was management conservatively. Surgery signed off--stating that surgical intervention will only be pursued in an emergent situation. GI evaluated patient and spoke to Dr Morris for possible stent placement. The concern of eroding tumor may be contributing to occult anemia. From 06/17 to 06/18, patient with more alertness and ability to participate in exam. Attempting to eat more as able. Noted that liver enzymes are uptrending and given vague discomfort will order KUB to start to assess obstruction and will consider repeat CT ABD/P contingent on trend of LFTS. On 06/19, it was expressed to that patients medical condition is tenuous. That regardless of "where" she discharges it is hard to say when the recurrence of symptoms may come and if/when she may come back. Expressed need for prompt Onc follow up to establish plan. From 06/21 to 06/27, patient developed recurrence of abdominal pain, CT abdomen and pelvis revealing small bowel obstruction with mesenteric hernia, and large bowel obstruction in the hepatic flexure, secondary to tethered gallbladder mass. This was managed with conservative measures and small bowel follow through confirmed resolution. However, patient with marked lethargy and fluctuating delirium. patient remains on PPN due to poor po intake. Prior attending's d/w Dr. Christie--requested encounter with family to discuss treatment options given complicated and prolonged course in hospital. Patient's states Dr. Christie spoke with him and his daughter on 06/28--stating someth ing to the effect that "she has to get through this to get to the clinic." Concern for looming reobstruction, will start management for malignant bowel obstruction. After thoughtful conversation with Palliative and , plan to continue 5 day course of IV dexamethasone. Discussed case with Dr Montenegro over the phone who will discuss possible diverting ileostomy with Dr. Garcia. Patient is a high risk, however, this procedure could provide bridge for home. On 07/01, kruse exchanged and patient recieved 1 UPRBC. Heparin and eliquis held. Patient high risk for DVTs iso malignant and hx there of. Vascular to discuss appropriateness of IVC filter especially given question of possible surgery. Patient did remove NGT on 07/02. Moving mucoid BM and gas after that. Doppler pursued on 07/03 which was negative for DVT. Resumed SCD/rob stockings in interim On 07/04, discussion was had between Dr. Montenegro and Dr. Garcia. Ultimately, Dr. Garcia confirmed OR for diverting ostomy on 07/10. In interim, will trial CLD per family request understanding risks. plan to continue TPN Complicated UTI: noted 07/07, f/u urine cx. c/w cefepime 07/07. #RLE edema #Recent DVT BLE 03/2024: Acute deep venous thrombosis in the bilateral lower extremity in the segments as noted above. 07/03/2024: no DVT RESUME SCDs/Rob stockings Heparin on hold due to concern occult bleeding from tumor Pt and her aware of the increased risk of blood clot if not being on blood thinner lobito given her cancer status but given anemia (likely 2/2 eroding tumor) which could be exacerbated by blood thinner, they are ok w/ holding blood thinner. #Malignant Bowel Obstruction #Small bowel Obstruction #Large Bowel Obstruction Recurrent bowel obstructions, managed conservatively. CT abdomen and pelvis revealing small bowel obstruction with mesenteric hernia, and large bowel obstruction in the hepatic flexure, secondary to tethered gallbladder mass. General surgery consulted, appreciate recs: no surgical intervention GI: no further stenting; conservative management Palliative evaled given need for optimizing symptomatic control v transitioning to GoC, difficult to broach conversation. Completed course Dexamethsone for MBO, continue IV 6mg qd for 5 days (02/05) PPN started, continue. Poor intake, c/w home megace On clears since 07/04, pt denies N, V, abd pain. Reports moving gas. Gen Sx evaluating, plan for diverting ostomy on 07/10, NPO midnight wednesday. #Acute on chronic Anemia s/p 3 unit PRBC (06/12, 06/23, 07/01) so far, home eliquis on hold. FOBT positive Anemia multifactorial, major part played likely by eroding tumor contributing to occult anemia. Monitor HnH, transfuse for Hb < 7. Transfuse 1 unit prbc today. Continue Protonix IV twice daily Holding Eliquis for down trending Hgb Prior attending discussed IVC filter placement with Vascular especially ? for upcoming surgery --> given no active DVT, no indication for IVC Heparin on hold given recurrent need for blood transfusion, teds/scds for now #Acute toxic metabolic encephalopathy *fluctuating/stable likely multifactorial--chronic leukoencephalopathy, delirium 2/2 chronic illness, malnutrition patient again developed progressive lethargy over the weekend Extensive workup including CT head, VBG, ammonia, TSH, cortisol, and infectious workup repeated-all unrevealing Neurology service reconsulted, does not recommend any other testing at this point avoid benzos/sedatives Encourage delirium precautions and sleep hygiene Continue to monitor closely #Transaminitis #Adenocarcinoma of gallbladder Last FOLFOX treatment 05/[address] Gross; transitioned to Dr. Christie Continue Megace 06/08- patient's family requested 5FU reversal, but not warranted at this time per Oncology As above GI consult for further recs per General Surgery. Family hopeful for a "treatment" and ways to get patient "out and to the clinic" -Discussing that this is complicated 2/2 to recurrent obstruction Manage conservatively as above #Chemotherapy induced Neutropenia *resolved #Lactic acidosis iso obstruction/dehydration sepsis ruled out Pt with progressing neutropenia, in the setting of recent chemotherapy Lactate initially 4.4 on admission ->normalized to 2.0 with fluids Chest XRAY with no acute infection UA unremarkable, respiratory testing negative, MRSA nares negative Blood Cx x1 set NGTD. 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/Oncologist Dr Christie on 06/08, s/p neupogen 480 mcg subcu for neutropenia for 3 days Need prompt OP Onc follow up if patient desires for pursuing further treatment #EUGENE superimposed on CKD *resolved 2/2 decreased oral intake/possible infection following chemo tx 05/30 Creatinine 2.36 on admission (previously 1.7 eight days prior) CTM, at baseline #Generalized weakness #Hyponatremiaresolved #Hypernatremia continue PPN and trend BMP #Hypokalemia #Hypocalcemia #Hypophosphatemia replacement underway #Malnutrition Likely in setting of above Stars Specialist consult PPN on going #H/o DVT Eliquis held for SBO, possible emergency procedures held heparin sq; vascular to discuss case: no indication of IVC at this time #HTN (hypertension) Continue atenolol #History of breast cancer S/p left partial mastectomy, XRT, 5 years of tamoxifen completed in August 2022 #Restless legs syndrome (RLS) Clonazepam HS PRN #Acute respiratory alkalosis secondary metabolic alkalosis resolved #Diarrhea improved Resolved at this time Diet: regular, PPN DVT Ppx: Eliquis held, sq Heparin on hold; SCDs/ rob stockings Code status: FULL PCP: Loreta Dispo: pending total time spent: 70 minutes Admission and Anticipated Discharge Date Admission Date: June 06, 2024 Subjective Patient was seen and examined at bedside. Patient was lying in bed, on room air, NAD, resting comfortably. Patient denies shortness of breath or pain, reports moving gas and having small BM [id number] yesterday. Patient denies nausea or vomiting. Patient denies trouble swallowing. Pt reports low belly pain last evening, was noted to have UTI, and started on antibiotic, today reports improving belly pain. non tender on exam. Family discussion again held at bedside. Pt's dtr and were present. We (myself and RN) had a discussion 07/05 with the patient alone where she expressed her indecisiveness regarding upcoming surgery. Yesterday, after discussion with pt and her , pt stated she will give it a thought and come to conclusion regarding continuing current treatment plan vs going comfort care/hospice route. Today, we discussed mostly what has been discussed with them multiple times by multiple physicians - her frailty and incurable cancer dz putting her at higher risk for surgery, poor outcome. Also they are aware, pt is having recurrent bowel obstruction and recurrent anemia needing transfusion due to effects of tumor. They are aware, pt can't have blood thinner and is at higher risk for blood clot given her metastatic disease/ho blood clot/immobility. It seems that they have decided to go ahead w/ current plan of surgery for now until they change their mind otherwise. The patient's Toño was at bedside and reiterated that many physicians has already stated to him that she has a very poor prognosis and surgery might not be a good idea as she might not be able to tolerate the surgery. But he still believes that she might do better after the surgery and they want to proceed w/ surgery. Total time spent in this goals of care discussion was about 35 minutes. Physical Exam Physical Exam: General- oriented x 3, not in distress, speaks in sentences with no effort or accessory muscle use. Appears ill/frail/weak. Eyes- anicteric Neck- no JVD Lungs- clear breath sounds bilaterally, no rales/wheezes Heart- normal rate, regular rhythm; no murmurs Abdomen- normal bowel sounds, nondistended, soft, nontender Extremities- no pretibial edema, no calf tenderness Neuro- Sleepy but answering questions, oriented x 3; no new gross focal neurologic deficits Skin- warm & dry Results & Data Results & Data Vital Signs (Past 12 Hours) Vital Signs Temp Pulse Pulse Pulse Resp BP BP 07/07/24 13:23 37 C 87 18 116/78 07/07/24 12:23 37.1 C 88 18 114/79 07/07/24 11:53 37.6 C H 89 18 110/77 07/07/24 11:38 37.4 C 89 16 106/71 07/07/24 11:35 37.0 C 90 20 105/71 07/07/24 11:20 37 C 90 18 105/71 07/07/24 08:06 36.6 C 92 H 18 114/79 07/07/24 07:50 07/07/24 07:20 93 H 07/07/24 03:35 37.7 C H 100 H 15 119/83 Pulse Ox O2 Del Method 07/07/24 13:23 98 07/07/24 12:23 98 07/07/24 11:53 98 07/07/24 11:38 99 07/07/24 11:35 98 Room Air 07/07/24 11:20 98 07/07/24 08:06 98 Room Air 07/07/24 07:50 Room Air 07/07/24 07:20 07/07/24 03:35 97 Room Air
[2024-07-07] MEDS: CLINOLIPID 20% IV FAT EMULSION 250 ML IV SCH (15:19)
[2024-07-07] MEDS: CENTRAL TPN IV SCH (15:19)
[2024-07-07] MEDS: [UNRECOGNIZED DRUG - OTHER] IV SCH (15:19)
[2024-07-07 16:49] LABS: Hematocrit (blood only) 29.4 % (37.0-47.0); Hemoglobin 9.6 g/dl (12.0-16.0)
[2024-07-07] MEDS: MIRTAZAPINE SOLTAB 15 MG PO SCH (20:47)
[2024-07-08 07:57] LABS: Hematocrit (blood only) 30.1 % (37.0-47.0); Hemoglobin 10.1 g/dl (12.0-16.0); Mean Corpuscular Hemoglobin 30.5 pg (25.0-34.0); Mean Corpuscular Hgb Conc 33.6 g/dL (32.0-36.0); Mean Corpuscular Volume 90.9 fL (80.0-100.0); Nucleated RBC # (auto) 0.02 K/uL (0.00-0.12); Nucleated RBC % (auto) 0.2 %; Platelet Count 192 K/uL (130-400); RDW Coefficient of Variation 19.7 % (11.5-14.5); RDW Standard Deviation 63.7 fL (36.4-46.3); Red Blood Count 3.31 M/uL (4.20-5.40); White Blood Count 8.25 K/ul (4.8-10.8)
[2024-07-08 09:24] LABS: Bilirubin,Total 1.2 mg/dl (0.2-1.0); Calcium 8.8 mg/dl (8.6-10.3); Magnesium 2.1 mg/dl (1.7-2.4); Potassium 4.3 mmol/L (3.5-5.1)
[2024-07-08 09:30] LABS: Albumin Globulin Ratio 0.8 (0.9-2); BUN Creatinine Ratio 54.4 (10-20); Globulin 3.6 gm/dl (2.5-4.0); Phosphorus 3.7 mg/dl (2.5-4.9); Total Protein 6.6 gm/dl (6.0-8.3)
--- NOTE | 2024-07-08 16:16 | Hospitalist Progress Note ---
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 Patient was also noted to have bowel obstruction 2 days after presentation. This bowel obstruction was management conservatively. Surgery signed off--stating that surgical intervention will only be pursued in an emergent situation. GI evaluated patient and spoke to Dr Morris for possible stent placement. The concern of eroding tumor may be contributing to occult anemia. From 06/17 to 06/18, patient with more alertness and ability to participate in exam. Attempting to eat more as able. Noted that liver enzymes are uptrending and given vague discomfort will order KUB to start to assess obstruction and will consider repeat CT ABD/P contingent on trend of LFTS. On 06/19, it was expressed to that patients medical condition is tenuous. That regardless of "where" she discharges it is hard to say when the recurrence of symptoms may come and if/when she may come back. Expressed need for prompt Onc follow up to establish plan. From 06/21 to 06/27, patient developed recurrence of abdominal pain, CT abdomen and pelvis revealing small bowel obstruction with mesenteric hernia, and large bowel obstruction in the hepatic flexure, secondary to tethered gallbladder mass. This was managed with conservative measures and small bowel follow through confirmed resolution. However, patient with marked lethargy and fluctuating delirium. patient remains on PPN due to poor po intake. Prior attending's d/w Dr. Christie--requested encounter with family to discuss treatment options given complicated and prolonged course in hospital. Patient's states Dr. Christie spoke with him and his daughter on 06/28--stating someth ing to the effect that "she has to get through this to get to the clinic." Concern for looming reobstruction, will start management for malignant bowel obstruction. After thoughtful conversation with Palliative and , plan to continue 5 day course of IV dexamethasone. Discussed case with Dr Montenegro over the phone who will discuss possible diverting ileostomy with Dr. Garcia. Patient is a high risk, however, this procedure could provide bridge for home. On 07/01, kruse exchanged and patient recieved 1 U PRBC. Heparin and eliquis held. Patient high risk for DVTs iso malignant and hx there of. Vascular to discuss appropriateness of IVC filter especially given question of possible surgery. Patient did remove NGT on 07/02. Moving mucoid BM and gas after that. Doppler pursued on 07/03 which was negative for DVT. Resumed SCD/rob stockings in interim On 07/04, discussion was had between Dr. Montenegro and Dr. Garcia. Ultimately, Dr. Garcia confirmed OR for diverting ostomy on 07/10. In interim, will trial CLD per family request understanding risks. plan to continue TPN Complicated UTI: noted 07/07, Urine Cx contaminate. c/w cefepime 07/07. plan for 5 days therapy. #RLE edema #Recent DVT BLE 03/2024: Acute deep venous thrombosis in the bilateral lower extremity in the segments as noted above. 07/03/2024: no DVT RESUME SCDs/Rob stockings Heparin on hold due to concern occult bleeding from tumor Pt and her aware of the increased risk of blood clot if not being on blood thinner lobito given her cancer status but given anemia (likely 2/2 eroding tumor) which could be exacerbated by blood thinner, they are ok w/ holding blood thinner. #Malignant Bowel Obstruction #Small bowel Obstruction #Large Bowel Obstruction Recurrent bowel obstructions, managed conservatively. CT abdomen and pelvis revealing small bowel obstruction with mesenteric hernia, and large bowel obstruction in the hepatic flexure, secondary to tethered gallbladder mass. General surgery consulted, appreciate recs: no surgical intervention GI: no further stenting; conservative management Palliative evaled given need for optimizing symptomatic control v transitioning to GoC, difficult to broach conversation. Completed course Dexamethsone for MBO, continue IV 6mg qd for 5 days (02/05) PPN started, continue. Poor intake, c/w home megace On clears since 07/04, pt denies N, V, abd pain. Reports moving gas. Gen Sx evaluating, plan for diverting ostomy on 07/10, NPO midnight wednesday. #Acute on chronic Anemia s/p 3 unit PRBC (06/12, 06/23, 07/01) so far, home eliquis on hold. FOBT positive Anemia multifactorial, major part played likely by eroding tumor contributing to occult anemia. Monitor HnH, transfuse for Hb < 7. Transfuse 1 unit prbc today. Continue Protonix IV twice daily Holding Eliquis for down trending Hgb Prior attending discussed IVC filter placement with Vascular especially ? for upcoming surgery --> given no active DVT, no indication for IVC Heparin on hold given recurrent need for blood transfusion, teds/scds for now #Acute toxic metabolic encephalopathy *fluctuating/stable likely multifactorial--chronic leukoencephalopathy, delirium 2/2 chronic illness, malnutrition patient again developed progressive lethargy over the weekend Extensive workup including CT head, VBG, ammonia, TSH, cortisol, and infectious workup repeated-all unrevealing Neurology service reconsulted, does not recommend any other testing at this point avoid benzos/sedatives Encourage delirium precautions and sleep hygiene Continue to monitor closely #Transaminitis #Adenocarcinoma of gallbladder Last FOLFOX treatment 05/[address] Gross; transitioned to Dr. Christie Continue Megace 06/08- patient's family requested 5FU reversal, but not warranted at this time per Oncology As above GI consult for further recs per General Surgery. Family hopeful for a "treatment" and ways to get patient "out and to the clinic" -Discussing that this is complicated 2/2 to recurrent obstruction Manage conservatively as above #Chemotherapy induced Neutropenia *resolved #Lactic acidosis iso obstruction/dehydration sepsis ruled out Pt with progressing neutropenia, in the setting of recent chemotherapy Lactate initially 4.4 on admission ->normalized to 2.0 with fluids Chest XRAY with no acute infection UA unremarkable, respiratory testing negative, MRSA nares negative Blood Cx x1 set NGTD. 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 Dr Christie on 06/08, s/p neupogen 480 mcg subcu for neutropenia for 3 days Need prompt OP Onc follow up if patient desires for pursuing further treatment #EUGENE superimposed on CKD *resolved 2/2 decreased oral intake/possible infection following chemo tx 05/30 Creatinine 2.36 on admission (previously 1.7 eight days prior) CTM, at baseline #Generalized weakness #Hyponatremiaresolved #Hypernatremia continue PPN and trend BMP #Hypokalemia #Hypocalcemia #Hypophosphatemia replacement underway #Malnutrition Likely in setting of above Multigrapher consult PPN on going #H/o DVT Eliquis held for SBO, possible emergency procedures held heparin sq; vascular to discuss case: no indication of IVC at this time #HTN (hypertension) Continue atenolol #History of breast cancer S/p left partial mastectomy, XRT, 5 years of tamoxifen completed in August 2022 #Restless legs syndrome (RLS) Clonazepam HS PRN #Acute respiratory alkalosis secondary metabolic alkalosis resolved #Diarrhea improved Resolved at this time Diet: regular, PPN DVT Ppx: Eliquis held, sq Heparin on hold; SCDs/ rob stockings Code status: FULL PCP: Loreta Dispo: pending Admission and Anticipated Discharge Date Admission Date: June 06, 2024 Subjective Patient was seen and examined at bedside. Patient was lying in bed, on room air, NAD, resting comfortably. Patient denies shortness of breath or pain, reports moving gas and having small BM x2, could be bowel discharges rather than actual BMs, RN not aware of BMs. Patient denies nausea or vomiting. Patient denies trouble swallowing. Pt reports low belly pain improving. Pt's at bedside, answered all his questions. Physical Exam Physical Exam: General- oriented x 3, not in distress, speaks in sentences with no effort or accessory muscle use. Appears ill/frail/weak. Eyes- anicteric Neck- no JVD Lungs- clear breath sounds bilaterally, no rales/wheezes Heart- normal rate, regular rhythm; no murmurs Abdomen- normal bowel sounds, nondistended, soft, nontender Extremities- no pretibial edema, no calf tenderness Neuro- Sleepy but answering questions, oriented x 3; no new gross focal neurologic deficits Skin- warm & dry Results & Data Results & Data Vital Signs (Past 12 Hours) Vital Signs Temp Pulse Resp BP Pulse Ox O2 Del Method 07/08/24 14:51 36.7 C 110 H 17 128/90 96 Room Air 07/08/24 10:41 36.8 C 105 H 17 122/85 97 Room Air 07/08/24 07:14 37.0 C 96 H 17 126/86 97 Room Air
[2024-07-08] MEDS: CENTRAL TPN IV SCH (16:25)
[2024-07-08] MEDS: [UNRECOGNIZED DRUG - OTHER] IV SCH (16:25)
[2024-07-08] MEDS: CLINOLIPID 20% IV FAT EMULSION 250 ML IV SCH (16:32)
[2024-07-08] MEDS: ADVANCED PROBIOTIC 625 MG CAPSULE PO SCH (18:35)
[2024-07-09 07:50] LABS: Hematocrit (blood only) 30.3 % (37.0-47.0); Mean Corpuscular Hemoglobin 30.6 pg (25.0-34.0); Mean Corpuscular Volume 92.7 fL (80.0-100.0); Platelet Count 192 K/uL (130-400); RDW Coefficient of Variation 19.1 % (11.5-14.5); Red Blood Count 3.27 M/uL (4.20-5.40); White Blood Count 6.59 K/ul (4.8-10.8)
[2024-07-09 08:16] LABS: Albumin Globulin Ratio 0.8 (0.9-2); Albumin Level 2.8 gm/dl (3.4-5.0); Bilirubin,Total 1.2 mg/dl (0.2-1.0); Calcium 8.8 mg/dl (8.6-10.3); Globulin 3.7 gm/dl (2.5-4.0); Magnesium 2.1 mg/dl (1.7-2.4); Phosphorus 3.7 mg/dl (2.5-4.9); Potassium 4.2 mmol/L (3.5-5.1); Total Protein 6.5 gm/dl (6.0-8.3)
--- NOTE | 2024-07-09 13:20 | Hospitalist Progress Note ---
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 Patient was also noted to have bowel obstruction 2 days after presentation. This bowel obstruction was management conservatively. Surgery signed off--stating that surgical intervention will only be pursued in an emergent situation. GI evaluated patient and spoke to Dr Morris for possible stent placement. The concern of eroding tumor may be contributing to occult anemia. From 06/17 to 06/18, patient with more alertness and ability to participate in exam. Attempting to eat more as able. Noted that liver enzymes are uptrending and given vague discomfort will order KUB to start to assess obstruction and will consider repeat CT ABD/P contingent on trend of LFTS. On 06/19, it was expressed to that patients medical condition is tenuous. That regardless of "where" she discharges it is hard to say when the recurrence of symptoms may come and if/when she may come back. Expressed need for prompt Onc follow up to establish plan. From 06/21 to 06/27, patient developed recurrence of abdominal pain, CT abdomen and pelvis revealing small bowel obstruction with mesenteric hernia, and large bowel obstruction in the hepatic flexure, secondary to tethered gallbladder mass. This was managed with conservative measures and small bowel follow through confirmed resolution. However, patient with marked lethargy and fluctuating delirium. patient remains on PPN due to poor po intake. Prior attending's d/w Dr. Christie--requested encounter with family to discuss treatment options given complicated and prolonged course in hospital. Patient's states Dr. Christie spoke with him and his daughter on 06/28--stating someth ing to the effect that "she has to get through this to get to the clinic." Concern for looming reobstruction, will start management for malignant bowel obstruction. After thoughtful conversation with Palliative and , plan to continue 5 day course of IV dexamethasone. Discussed case with Dr Montenegro over the phone who will discuss possible diverting ileostomy with Dr. Garcia. Patient is a high risk, however, this procedure could provide bridge for home. On 07/01, kruse exchanged and patient recieved 1 U PRBC. Heparin and eliquis held. Patient high risk for DVTs iso malignant and hx there of. Vascular to discuss appropriateness of IVC filter especially given question of possible surgery. Patient did remove NGT on 07/02. Moving mucoid BM and gas after that. Doppler pursued on 07/03 which was negative for DVT. Resumed SCD/rob stockings in interim On 07/04, discussion was had between Dr. Montenegro and Dr. Garcia. Ultimately, Dr. Garcia confirmed OR for diverting ostomy on 07/10. In interim, will trial CLD per family request understanding risks. plan to continue TPN Complicated UTI: noted 07/07, Urine Cx contaminate. c/w cefepime 07/07. plan for 5 days therapy. #RLE edema #Recent DVT BLE 03/2024: Acute deep venous thrombosis in the bilateral lower extremity in the segments as noted above. 07/03/2024: no DVT RESUME SCDs/Rob stockings Heparin on hold due to concern occult bleeding from tumor Pt and her aware of the increased risk of blood clot if not being on blood thinner lobito given her cancer status but given anemia (likely 2/2 eroding tumor) which could be exacerbated by blood thinner, they are ok w/ holding blood thinner. #Malignant Bowel Obstruction #Small bowel Obstruction #Large Bowel Obstruction Recurrent bowel obstructions, managed conservatively. CT abdomen and pelvis revealing small bowel obstruction with mesenteric hernia, and large bowel obstruction in the hepatic flexure, secondary to tethered gallbladder mass. General surgery consulted, appreciate recs: no surgical intervention GI: no further stenting; conservative management Palliative evaled given need for optimizing symptomatic control v transitioning to GoC, difficult to broach conversation. Completed course Dexamethsone for MBO, continue IV 6mg qd for 5 days (02/05) PPN started, continue. Poor intake, c/w home megace On clears since 07/04, pt denies N, V, abd pain. Reports moving gas. Gen Sx evaluating, plan for diverting ostomy on 07/10, NPO midnight wednesday. Pt and her family declined Sx today, Gen Sx updated #Acute on chronic Anemia s/p 3 unit PRBC (06/12, 06/23, 07/01) so far, home eliquis on hold. FOBT positive Anemia multifactorial, major part played likely by eroding tumor contributing to occult anemia. Monitor HnH, transfuse for Hb < 7. Transfuse 1 unit prbc today. Continue Protonix IV twice daily Holding Eliquis for down trending Hgb Prior attending discussed IVC filter placement with Vascular especially ? for upcoming surgery --> given no active DVT, no indication for IVC Heparin on hold given recurrent need for blood transfusion, teds/scds for now #Acute toxic metabolic encephalopathy *fluctuating/stable likely multifactorial--chronic leukoencephalopathy, delirium 2/2 chronic illness, malnutrition patient again developed progressive lethargy over the weekend Extensive workup including CT head, VBG, ammonia, TSH, cortisol, and infectious workup repeated-all unrevealing Neurology service reconsulted, does not recommend any other testing at this point avoid benzos/sedatives Encourage delirium precautions and sleep hygiene Continue to monitor closely #Transaminitis #Adenocarcinoma of gallbladder Last FOLFOX treatment 05/[address] Gross; transitioned to Dr. Christie Continue Megace 06/08- patient's family requested 5FU reversal, but not warranted at this time per Oncology As above GI consult for further recs per General Surgery. Family hopeful for a "treatment" and ways to get patient "out and to the clinic" -Discussing that this is complicated 2/2 to recurrent obstruction Manage conservatively as above #Chemotherapy induced Neutropenia *resolved #Lactic acidosis iso obstruction/dehydration sepsis ruled out Pt with progressing neutropenia, in the setting of recent chemotherapy Lactate initially 4.4 on admission ->normalized to 2.0 with fluids Chest XRAY with no acute infection UA unremarkable, respiratory testing negative, MRSA nares negative Blood Cx x1 set NGTD. 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 Motion Picture Operator/Oncologist Dr Christie on 06/08, s/p neupogen 480 mcg subcu for neutropenia for 3 days Need prompt OP Onc follow up if patient desires for pursuing further treatment #EUGENE superimposed on CKD *resolved 2/2 decreased oral intake/possible infection following chemo tx 05/30 Creatinine 2.36 on admission (previously 1.7 eight days prior) CTM, at baseline #Generalized weakness #Hyponatremiaresolved #Hypernatremia continue PPN and trend BMP #Hypokalemia #Hypocalcemia #Hypophosphatemia replacement underway #Malnutrition Likely in setting of above Field Services Analyst consult PPN on going #H/o DVT Eliquis held for SBO, possible emergency procedures held heparin sq; vascular to discuss case: no indication of IVC at this time #HTN (hypertension) Continue atenolol #History of breast cancer S/p left partial mastectomy, XRT, 5 years of tamoxifen completed in August 2022 #Restless legs syndrome (RLS) Clonazepam HS PRN #Acute respiratory alkalosis secondary metabolic alkalosis resolved #Diarrhea improved Resolved at this time Diet: regular, PPN DVT Ppx: Eliquis held, sq Heparin on hold; SCDs/ rob stockings Code status: FULL PCP: Loreta Dispo: pending Admission and Anticipated Discharge Date Admission Date: June 06, 2024 Subjective Patient was seen and examined at bedside. Patient was lying in bed, on room air, NAD, resting comfortably. Appears very tired and fragile today. Patient denies shortness of breath or pain, reports moving gas and denies abd pain. Patient denies nausea or vomiting. I was paged by RN that patient and patient's do not want to proceed with surgery. Re-visited patient's room, patient's Toño and daughter Za were at bedside. I confirmed with the patient if she wants to proceed with the surgery, patient stated that she does not want to do surgery. Patient's and daughter are in agreement. Also discussed about CODE STATUS and if she wanted any chest compressions or intubation and resuscitative meds in any event of cardiac or pulmonary arrest, she declined any intervention at that moment. She stated she would like to be DNR/DNI. Patient's and daughter who were at bedside are also in agreement. We discussed about prognosis going forward, making remaining days of life more comfortable. They stated that they would like to speak with palliative care for further direction and would like to continue current conservative managements for now. I offered them if they want to discuss further regarding comfort measures or hospice, I am available. They voiced understanding and are looking forward to speak with palliative care tomorrow. I updated general surgery on-call about the patient and her family wishes regarding tomorrow's surgery. Physical Exam Physical Exam: General- lethargic, not in distress. Appears ill/frail/weak. Eyes- anicteric Neck- no JVD Lungs- clear breath sounds bilaterally, no rales/wheezes Heart- normal rate, regular rhythm; no murmurs Abdomen- normal bowel sounds, nondistended, soft, nontender Extremities- no pretibial edema, no calf tenderness Neuro- Sleepy but answering questions; no new gross focal neurologic deficits Skin- warm & dry Results & Data Results & Data Vital Signs (Past 12 Hours) Vital Signs Temp Pulse Pulse Resp BP Pulse Ox O2 Del Method 07/09/24 11:22 36.5 C 100 H 20 111/78 98 Room Air 07/09/24 07:45 36.4 C L 99 H 18 116/80 98 Room Air 07/09/24 06:00 101 H
[2024-07-09] MEDS: CENTRAL TPN IV SCH (15:40)
[2024-07-09] MEDS: CLINOLIPID 20% IV FAT EMULSION 250 ML IV SCH (15:40)
[2024-07-09] MEDS: [UNRECOGNIZED DRUG - OTHER] IV SCH (15:40)
[2024-07-10] MEDS ORDERED: ACETAMINOPHEN 1000 MG/100 ML IV IV ONE (06:45)
[2024-07-10] MEDS: FAMOTIDINE/PF 20 MG/2 ML VIAL IV ONE (07:20)
[2024-07-10 08:05] LABS: Hematocrit (blood only) 29.6 % (37.0-47.0); Hemoglobin 9.8 g/dl (12.0-16.0); Mean Corpuscular Hemoglobin 30.9 pg (25.0-34.0); Mean Corpuscular Hgb Conc 33.1 g/dL (32.0-36.0); Mean Corpuscular Volume 93.4 fL (80.0-100.0); Platelet Count 183 K/uL (130-400); RDW Coefficient of Variation 18.4 % (11.5-14.5); RDW Standard Deviation 62.9 fL (36.4-46.3); Red Blood Count 3.17 M/uL (4.20-5.40); White Blood Count 6.66 K/ul (4.8-10.8)
[2024-07-10 08:37] LABS: BUN Creatinine Ratio 67.5 (10-20); Calcium 8.8 mg/dl (8.6-10.3); Creatinine Clr Calc Pharmacy 60.2 ml/min; Magnesium 2.1 mg/dl (1.7-2.4); Phosphorus 3.5 mg/dl (2.5-4.9); Potassium 4.2 mmol/L (3.5-5.1)
--- NOTE | 2024-07-10 11:24 | Hospitalist Progress Note ---
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 Patient was also noted to have bowel obstruction 2 days after presentation. This bowel obstruction was management conservatively. Surgery signed off--stating that surgical intervention will only be pursued in an emergent situation. GI evaluated patient and spoke to Dr Morris for possible stent placement. The concern of eroding tumor may be contributing to occult anemia. From 06/17 to 06/18, patient with more alertness and ability to participate in exam. Attempting to eat more as able. Noted that liver enzymes are uptrending and given vague discomfort will order KUB to start to assess obstruction and will consider repeat CT ABD/P contingent on trend of LFTS. On 06/19, it was expressed to that patients medical condition is tenuous. That regardless of "where" she discharges it is hard to say when the recurrence of symptoms may come and if/when she may come back. Expressed need for prompt Onc follow up to establish plan. From 06/21 to 06/27, patient developed recurrence of abdominal pain, CT abdomen and pelvis revealing small bowel obstruction with mesenteric hernia, and large bowel obstruction in the hepatic flexure, secondary to tethered gallbladder mass. This was managed with conservative measures and small bowel follow through confirmed resolution. However, patient with marked lethargy and fluctuating delirium. patient remains on PPN due to poor po intake. Prior attending's d/w Dr. Christie--requested encounter with family to discuss treatment options given complicated and prolonged course in hospital. Patient's states Dr. Christie spoke with him and his daughter on 06/28--stating someth ing to the effect that "she has to get through this to get to the clinic." Concern for looming reobstruction, will start management for malignant bowel obstruction. After thoughtful conversation with Palliative and , plan to continue 5 day course of IV dexamethasone. Discussed case with Dr Montenegro over the phone who will discuss possible diverting ileostomy with Dr. Garcia. Patient is a high risk, however, this procedure could provide bridge for home. On 07/01, kruse exchanged and patient recieved 1 U PRBC. Heparin and eliquis held. Patient high risk for DVTs iso malignant and hx there of. Vascular to discuss appropriateness of IVC filter especially given question of possible surgery. Patient did remove NGT on 07/02. Moving mucoid BM and gas after that. Doppler pursued on 07/03 which was negative for DVT. Resumed SCD/rob stockings in interim On 07/04, discussion was had between Dr. Montenegro and Dr. Garcia. Ultimately, Dr. Garcia confirmed OR for diverting ostomy on 07/10. In interim, will trial CLD per family request understanding risks. plan to continue TPN Complicated UTI: noted 07/07, Urine Cx contaminate. c/w cefepime 07/07. plan for 5 days therapy. #RLE edema #Recent DVT BLE 03/2024: Acute deep venous thrombosis in the bilateral lower extremity in the segments as noted above. 07/03/2024: no DVT RESUME SCDs/Rob stockings Heparin on hold due to concern occult bleeding from tumor Pt and her aware of the increased risk of blood clot if not being on blood thinner lobito given her cancer status but given anemia (likely 2/2 eroding tumor) which could be exacerbated by blood thinner, they are ok w/ holding blood thinner. #Malignant Bowel Obstruction #Small bowel Obstruction #Large Bowel Obstruction Recurrent bowel obstructions, managed conservatively. CT abdomen and pelvis revealing small bowel obstruction with mesenteric hernia, and large bowel obstruction in the hepatic flexure, secondary to tethered gallbladder mass. General surgery consulted, appreciate recs: no surgical intervention GI: no further stenting; conservative management Palliative evaled given need for optimizing symptomatic control v transitioning to GoC, difficult to broach conversation. Completed course Dexamethsone for MBO, s/p IV 6mg qd for 5 days (02/05) PPN started, continue. Poor intake, home megace was dc'd after d/w pt and her family given increased risk of blood clot. they agreed for remeron which has been started. On clears since 07/04, pt denies N, V, abd pain. Reports moving gas. Gen Sx had plan for diverting ostomy on 07/10, Pt and her family decided against surgery on 07/09 evening. #Acute on chronic Anemia s/p 3 unit PRBC (06/12, 06/23, 07/01) so far, home eliquis on hold. FOBT positive Anemia multifactorial, major part played likely by eroding tumor contributing to occult anemia. Monitor HnH, transfuse for Hb < 7. Transfuse 1 unit prbc today. Continue Protonix IV twice daily Holding Eliquis for down trending Hgb Prior attending discussed IVC filter placement with Vascular especially ? for upcoming surgery --> given no active DVT, no indication for IVC Heparin on hold given recurrent need for blood transfusion, teds/scds for now #Acute toxic metabolic encephalopathy *fluctuating/stable likely multifactorial--chronic leukoencephalopathy, delirium 2/2 chronic illness, malnutrition patient again developed progressive lethargy over the weekend Extensive workup including CT head, VBG, ammonia, TSH, cortisol, and infectious workup repeated-all unrevealing Neurology service reconsulted, does not recommend any other testing at this point avoid benzos/sedatives Encourage delirium precautions and sleep hygiene Continue to monitor closely #Transaminitis #Adenocarcinoma of gallbladder Last FOLFOX treatment 05/[address] Gross; transitioned to Dr. Christie Continue Megace 06/08- patient's family requested 5FU reversal, but not warranted at this time per Oncology As above GI consult for further recs per General Surgery. Family hopeful for a "treatment" and ways to get patient "out and to the clinic" -Discussing that this is complicated 2/2 to recurrent obstruction Manage conservatively as above #Chemotherapy induced Neutropenia *resolved #Lactic acidosis iso obstruction/dehydration sepsis ruled out Pt with progressing neutropenia, in the setting of recent chemotherapy Lactate initially 4.4 on admission ->normalized to 2.0 with fluids Chest XRAY with no acute infection UA unremarkable, respiratory testing negative, MRSA nares negative Blood Cx x1 set NGTD. 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 They had d/w surgeons and pt was slated for diverting ostomy 07/10, which Pt and family decided against 07/09 evening. I have been holding family meeting almost daily, the family and patient knows the prognosis is very poor. Family wanted Megace be started, we discussed that in this situation it would be prudent to hold given risk of clot, they agreed and wanted to switch to Remeron after discussion. For now, the patient and family wants to "continue to fight" and being managed but they know she is at high risk of recurrent bowel obstruction, high risk of r ecurrent anemia, high risk of blood clot and very poor prognosis from advanced metastatic disease. They wanted to speak w/ palliative care, i communicated w/ pall, they will try to squeeze in to have zoom meeting today or will most likely see the patient tomorrow. Pt, her and her dtr are aware of palliative schedule. Diet: regular, PPN DVT Ppx: Eliquis held, sq Heparin on hold; SCDs/ rob stockings Code status: FULL PCP: Loreta Dispo: pending Total time spent: 60 min. Admission and Anticipated Discharge Date Admission Date: June 06, 2024 Subjective Patient was seen and examined at bedside. Patient was lying in bed, on room air, NAD, resting comfortably. Appears very tired and fragile, ill/sick/frail. Patient denies shortness of breath or pain, reports moving gas and denies abd pain. Patient denies nausea or vomiting. Ate few bites of jello in the morning. I was stopped at the door by patient's who stated " Anjelica says she wants to continue to fight, she wants you not to bring discussion about disease and prognosis". During my examination patient's family were around closer to the door. I did ask patient if she wants to tell me anything or if she wants to discuss anything with me, patient nodded "no". Physical Exam Physical Exam: General- lethargic, not in distress. Appears ill/frail/weak. Eyes- anicteric Neck- no JVD Lungs- clear breath sounds bilaterally, no rales/wheezes Heart- normal rate, regular rhythm; no murmurs Abdomen- normal bowel sounds, nondistended, soft, nontender Extremities- no pretibial edema, no calf tenderness Neuro- Sleepy but answering questions; no new gross focal neurologic deficits Skin- warm & dry Results & Data Results & Data Vital Signs (Past 12 Hours) Vital Signs Temp Pulse Pulse Resp BP Pulse Ox O2 Del Method 07/10/24 08:00 102 H 07/10/24 07:44 Room Air 07/10/24 07:30 36.8 C 97 H 18 125/74 97 Room Air 07/10/24 03:39 37.1 C 102 H 17 117/82 97 Room Air 07/09/24 23:21 37.0 C 103 H 20 113/78 97 Room Air
--- NOTE | 2024-07-10 11:59 | Communication Note ---
Date of Service: July 10, 2024 we were planning for laparoscopic possible open ileostomy to be done in the operating room today. It was relayed to me from the on-call weekend surgical team and the hospitalist team that the patient no longer desired surgery and was planning for more palliative comfort measures. We will cancel the surgery. Please call with any questions or concerns.
[2024-07-10] MEDS: CLINOLIPID 20% IV FAT EMULSION 250 ML IV SCH (15:38)
[2024-07-10] MEDS: [UNRECOGNIZED DRUG - OTHER] IV SCH (15:39)
[2024-07-10] MEDS: CENTRAL TPN IV SCH (15:39)
--- NOTE | 2024-07-10 16:21 | Palliative Family Discussion ---
Date of Service July 10, 2024 Patient Directed Conference Time of Meetinpm-420pm Participants: Karma Edwards DNP Patient participation: yes Patient Support System pt and dtr Other Healthcare Provider Participation: None Meeting Location: telemed via [facility] iPAd/secure A face to face video audio telemed visit for ACP was held for ANJELICA WESLEY. This meeting was necessary for determining the appropriate course of treatment. Topics of Discussion Topics of Discussion: Anjelica fraser, her , daughter and I had a lengthy and very exhaustively detailed discussion. Anjelica states feeling she is "being pushed into not having a choice" and tells her family "I feel better and I'm thinking clearly, i want the surgery." Family note she was opposed to surgery then later the same day changed her mind but did not want to move forward with it either. She remains consistently inconsistent. Pt states there is nothing wrong with the way things are now, so maybe she can keep getting better. We discussed best case (she improves post surgery to tolerate rehab /improve PS/gets to where chemo can be considered) vs worst case (no surgery/decline or surgery/does poorly post op/post op complications/does not improve PS/declines further/no more chemo possible. I told them they needed to discuss as a family what matters the most to her at this junction: we have an advanced cancer, it is not curable/reversible/fixable, with recurrent obstructions and surgery may be the only way to prevent more reobstruction and maybe let rehab have a chance to improve her PS but this will require more invasive interventions/higher risk/potentially higher complications/higher mortality risk vs if time/QOL matters more then spending this time in setting of choice (ex: home with hospice) and maximize time with family but not spend that time coming back and forth to appointments or spend the time in a penitentiary etc. I told them that the plan of care we devise would be solely dependent on what she/they determine their goals of care to be - also advised that declining surgery for now is not unreasonable but she may decline further to a point where surgery is not an option anymore either. She refused to be a more active part of the discussion and did not want the iPad facing her but the meeting was held with her, and dtr at bedside in her room by telemed and she communicated via family with additional questions. For now, they are going to discuss further and I will try to go by and visit tomorrow morning. Patient is very opposed to any discussion about mortality//dying/hospice so I would limit the conversations about these for now, I can try to revisit depending on how she is tomorrow. Other Content of Meetin. Opportunity given for participants to speak and ask questions. 2. Participants were assured of attention to patient comfort. 3. Reassurance provided. 4. Support was provided for informed, good-jarad decisions. 5. Emotions expressed by family were acknowledged and addressed. I have updated nursing, surgery and primary team. 35min in ACP + 15min chart review pior to meeting, total TS = 45min high MDM Thank you for allowing us to participate in the ongoing care of this patient. Please page with any additional concerns. Erik Edwards DNP Director, Palliative Medicine
[2024-07-11 08:29] LABS: Hematocrit (blood only) 32.1 % (37.0-47.0); Hemoglobin 9.9 g/dl (12.0-16.0); Mean Corpuscular Hemoglobin 29.6 pg (25.0-34.0); Mean Corpuscular Hgb Conc 30.8 g/dL (32.0-36.0); Mean Corpuscular Volume 96.1 fL (80.0-100.0); Mean Platelet Volume 9.9 fL (9.4-12.4); Platelet Count 197 K/uL (130-400); Red Blood Count 3.34 M/uL (4.20-5.40); White Blood Count 7.46 K/ul (4.8-10.8)
[2024-07-11 08:45] LABS: BUN Creatinine Ratio 64.8 (10-20); Creatinine Clr Calc Pharmacy 54.7 ml/min; Magnesium 2.2 mg/dl (1.7-2.4); Phosphorus 3.6 mg/dl (2.5-4.9)
--- NOTE | 2024-07-11 11:41 | Palliative Care Progress Note ---
Date of Service July 11, 2024 Assessment & Plan (1) Cancer related pain: (2) Altered mental status: (3) Lethargy: (4) Advanced care planning/counseling discussion: Plan: I met with Mr & Mrs Begum at bedside, face to face for 30min. She engaged partially then closed her eyes and turned away. She reports "everyone tells me what isn't going to work." She does not want surgery for now. agrees, they feel she "can get better and stronger on her own and right now she's not in crisis." states "she wants to fight." We reviewed the detailed discussion from last night and spoke about options for a plan moving forward. Anjelica was attentive for most of the discussion but declined to engage in much of it and waved her hand towards . She was able to tell me she felt people were not focusing on better news. She and indicate "she wants to fight this." I asked her what "fighting" looks like to her but she could not/would not reply. I also inquired about her top 2-3 goals for herself but she declined to answer. felt she was tiring out; pt denies feeling fatigue or somnolence however she drifted off intermittently through the remainder of the conversation and when she did not want to answer a question she would turn her head away from me very deliberately, which notes is her way of saying "this discussion is over now." I expressed my worry about her waxing/waning mental status and how she has been consistently inconsistent. We spoke about the role of SDM and if she had a formal wish for who that should be, she shrugged in response. I reviewed [id number] SDM process and noted would be default. fels she needs a chance to get stronger and so we agreed to the following: No plans for immediate chemo given acute issues, SBO recurrence and poor PS. She is agreeable to SNF rehab, will give it a few weeks to see how she does. Can be seen in [facility] after 3-4 weeks of rehab for re assessment / decision re chemo and would be dependent on no recurrence of SBO. (5) Small bowel obstruction: Plan: recurrent SBO after initially desiring surgery, pt and now decline surgery and procedure was cancelled (6) Palliative care by specialist: (7) Chemotherapy induced neutropenia: (8) Adenocarcinoma of gallbladder: (9) Large bowel obstruction: Plan Intermittent lethargy. feels "this time is the one -she will stay obstruction free." He states "she is stronger now compared to the past 35 days." When asked for examples, he states she can use her cell phone and looks at the photo tablet more often. Reviewed measurements for improving strength and how rehab is the best chance for seeing how much she can regain if at all possible. Pt and aware she is not a candidate for cancer rx right now with the obstructions, infections, frailty, declining PS. ACP as noted above Thank you for allowing us to participate in the ongoing care of this patient. Please page with any additional concerns. Erik Edwards DNP Director, Palliative Medicine Admission and Anticipated Discharge Date Admission Date: June 06, 2024 Subjective Anjelica seen beside, present She was able to drink 1/3 bottle of Coke this morning along with some food She feels the carbonation was a little much, it is making her feel bloated is hopeful:" I really feel this time will be the time it gets better and stays that way." Results & Data Vital Signs (Past 12 Hours) Vital Signs Temp Pulse Pulse Resp BP Pulse Ox O2 Del Method 07/11/24 11:12 36.5 C 104 H 14 116/81 98 07/11/24 07:58 37.0 C 103 H 18 128/83 98 Room Air 07/11/24 07:44 Room Air 07/11/24 06:59 102 H 07/11/24 03:49 36.6 C 102 H 16 105/72 97 Room Air PG Care Time/CCT Total # of Minutes Spent Total Time Spent with Patient: Total time spent is greater than 50% in coordination of care (as documented) at patient's floor/unit and/or counseling patient: I spent 90 minutes overall addressing this case: 15 min in medical data review/discussion with referring provider(s) and/or preparation for the visit 15 min in direct interaction with the patient/exam 30 min in Advance Care Planning/Goals of Care discussions as detailed above in note (must be >16min) 15 min in subsequent review and synthesis of assessment and plan 15 min communicating with other providers regarding the patient's case: primary team, nursing, care mgt, surgery Advanced Care Planning 76500 Advanced Care Planning 30 Min [place] [address] SUB INP/OBS CARE 3/50MIN (25 - SIGNIFICANT, SEPARATELY IDENTIFIABLE ) Patient Type Established Medical Decision Making High Complexity Diagnoses Cancer related pain G89.3 Altered mental status R41.82 Lethargy R53.83 Advanced care planning/counseling discussion Z71.89 Small bowel obstruction K56.609 Palliative care by specialist Z51.5 Chemotherapy induced neutropenia D70.1; T45.1X5A Adenocarcinoma of gallbladder C23 Large bowel obstruction K56.609 Additional Codes Advanced Care Planning - 15175 Advanced Care Planning 30 Min: 96939 Advanced Care Planning 30 Min ([id number])
--- NOTE | 2024-07-11 14:18 | Hospitalist Progress Note ---
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 Patient was also noted to have bowel obstruction 2 days after presentation. This bowel obstruction was management conservatively. Surgery signed off--stating that surgical intervention will only be pursued in an emergent situation. GI evaluated patient and spoke to Dr Morris for possible stent placement. The concern of eroding tumor may be contributing to occult anemia. From 06/17 to 06/18, patient with more alertness and ability to participate in exam. Attempting to eat more as able. Noted that liver enzymes are uptrending and given vague discomfort will order KUB to start to assess obstruction and will consider repeat CT ABD/P contingent on trend of LFTS. On 06/19, it was expressed to that patients medical condition is tenuous. That regardless of "where" she discharges it is hard to say when the recurrence of symptoms may come and if/when she may come back. Expressed need for prompt Onc follow up to establish plan. From 06/21 to 06/27, patient developed recurrence of abdominal pain, CT abdomen and pelvis revealing small bowel obstruction with mesenteric hernia, and large bowel obstruction in the hepatic flexure, secondary to tethered gallbladder mass. This was managed with conservative measures and small bowel follow through confirmed resolution. However, patient with marked lethargy and fluctuating delirium. patient remains on PPN due to poor po intake. Prior attending's d/w Dr. Christie--requested encounter with family to discuss treatment options given complicated and prolonged course in hospital. Patient's states Dr. Christie spoke with him and his daughter on 06/28--stating someth ing to the effect that "she has to get through this to get to the clinic." Concern for looming reobstruction, will start management for malignant bowel obstruction. After thoughtful conversation with Palliative and , plan to continue 5 day course of IV dexamethasone. Discussed case with Dr Montenegro over the phone who will discuss possible diverting ileostomy with Dr. Garcia. Patient is a high risk, however, this procedure could provide bridge for home. On 07/01, kruse exchanged and patient recieved 1 U PRBC. Heparin and eliquis held. Patient high risk for DVTs iso malignant and hx there of. Vascular to discuss appropriateness of IVC filter especially given question of possible surgery. Patient did remove NGT on 07/02. Moving mucoid BM and gas after that. Doppler pursued on 07/03 which was negative for DVT. Resumed SCD/rob stockings in interim On 07/04, discussion was had between Dr. Montenegro and Dr. Garcia. Ultimately, Dr. Garcia confirmed OR for diverting ostomy on 07/10. In interim, will trial CLD per family request understanding risks. plan to continue TPN Complicated UTI: noted 07/07, Urine Cx contaminate. c/w cefepime 07/07. plan for 5 days therapy. #RLE edema #Recent DVT BLE 03/2024: Acute deep venous thrombosis in the bilateral lower extremity in the segments as noted above. 07/03/2024: no DVT RESUME SCDs/Rob stockings Heparin on hold due to concern occult bleeding from tumor Pt and her aware of the increased risk of blood clot if not being on blood thinner lobito given her cancer status but given anemia (likely 2/2 eroding tumor) which could be exacerbated by blood thinner, they are ok w/ holding blood thinner. #Malignant Bowel Obstruction #Small bowel Obstruction #Large Bowel Obstruction Recurrent bowel obstructions, managed conservatively. CT abdomen and pelvis revealing small bowel obstruction with mesenteric hernia, and large bowel obstruction in the hepatic flexure, secondary to tethered gallbladder mass. General surgery consulted, appreciate recs: no surgical intervention GI: no further stenting; conservative management Palliative evaled given need for optimizing symptomatic control v transitioning to GoC, difficult to broach conversation. Completed course Dexamethsone for MBO, s/p IV 6mg qd for 5 days (02/05) PPN started, continue. Poor intake, home megace was dc'd after d/w pt and her family given increased risk of blood clot. they agreed for remeron which has been started. On clears since 07/04, pt denies N, V, abd pain. Reports moving gas. Gen Sx had plan for diverting ostomy on 07/10, Pt and her family decided against surgery on 07/09 evening. #Acute on chronic Anemia s/p 3 unit PRBC (06/12, 06/23, 07/01) so far, home eliquis on hold. FOBT positive Anemia multifactorial, major part played likely by eroding tumor contributing to occult anemia. Monitor HnH, transfuse for Hb < 7. Transfuse 1 unit prbc today. Continue Protonix IV twice daily Holding Eliquis for down trending Hgb Prior attending discussed IVC filter placement with Vascular especially ? for upcoming surgery --> given no active DVT, no indication for IVC Heparin on hold given recurrent need for blood transfusion, teds/scds for now #Acute toxic metabolic encephalopathy *fluctuating/stable likely multifactorial--chronic leukoencephalopathy, delirium 2/2 chronic illness, malnutrition patient again developed progressive lethargy over the weekend Extensive workup including CT head, VBG, ammonia, TSH, cortisol, and infectious workup repeated-all unrevealing Neurology service reconsulted, does not recommend any other testing at this point avoid benzos/sedatives Encourage delirium precautions and sleep hygiene Continue to monitor closely #Transaminitis #Adenocarcinoma of gallbladder Last FOLFOX treatment 05/[address] Gross; transitioned to Dr. Christie Continue Megace 06/08- patient's family requested 5FU reversal, but not warranted at this time per Oncology As above GI consult for further recs per General Surgery. Family hopeful for a "treatment" and ways to get patient "out and to the clinic" -Discussing that this is complicated 2/2 to recurrent obstruction Manage conservatively as above #Chemotherapy induced Neutropenia *resolved #Lactic acidosis iso obstruction/dehydration sepsis ruled out Pt with progressing neutropenia, in the setting of recent chemotherapy Lactate initially 4.4 on admission ->normalized to 2.0 with fluids Chest XRAY with no acute infection UA unremarkable, respiratory testing negative, MRSA nares negative Blood Cx x1 set NGTD. 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 Base Manager/Oncologist Dr Christie on 06/08, s/p neupogen 480 mcg subcu for neutropenia for 3 days Need prompt OP Onc follow up if patient desires for pursuing further treatment #EUGENE superimposed on CKD *resolved 2/2 decreased oral intake/possible infection following chemo tx 05/30 Creatinine 2.36 on admission (previously 1.7 eight days prior) CTM, at baseline #Generalized weakness #Hyponatremiaresolved #Hypernatremia continue PPN and trend BMP #Hypokalemia #Hypocalcemia #Hypophosphatemia replacement underway #Malnutrition Likely in setting of above Computer Aided Design Designer consult PPN on going #H/o DVT Eliquis held for SBO, possible emergency procedures held heparin sq; vascular to discuss case: no indication of IVC at this time #HTN (hypertension) Continue atenolol #History of breast cancer S/p left partial mastectomy, XRT, 5 years of tamoxifen completed in August 2022 #Restless legs syndrome (RLS) Clonazepam HS PRN #Acute respiratory alkalosis secondary metabolic alkalosis resolved #Diarrhea improved Resolved at this time Goals of care discussion: Palliative had evaled pt on 06/29, Pt and family chose to continue w/ ongoing management understanding the prognosis is poor. They had d/w surgeons and pt was slated for diverting ostomy 07/10, which Pt and family decided against 07/09 evening. I have been holding family meeting almost daily as of 07/10, the family and patient knows the prognosis is very poor. Family wanted Megace be started, we discussed that in this situation it would be prudent to hold given risk of clot, they agreed and wanted to switch to Remeron after discussion. For now, the patient and family wants to "continue to fight" and being managed but they know she is at high risk of recurrent bowel obstruction, high risk of recurrent anemia, high risk of blood clot and very poor prognosis from advanced metastatic disease. They are discussing w/ palliative care, plan is they want to go to snf for rehab. Pt will likely need TPN on dc as she has very poor po intake and she won't likely tolerate advancement of diet. Diet: regular, PPN DVT Ppx: Eliquis held, sq Heparin on hold; SCDs/ rob stockings Code status: FULL PCP: [facility] Dispo: pending Admission and Anticipated Discharge Date Admission Date: June 06, 2024 Subjective Patient was seen and examined at bedside. Patient was lying in bed, on room air, NAD, resting comfortably. Appears very tired and fragile, ill/sick/frail. Patient denies shortness of breath or pain, reports moving gas and denies abd pain. Patient denies nausea or vomiting. overall po intake is poor. Physical Exam Physical Exam: General- lethargic, not in distress. Appears ill/frail/weak. Eyes- anicteric Neck- no JVD Lungs- clear breath sounds bilaterally, no rales/wheezes Heart- normal rate, regular rhythm; no murmurs Abdomen- normal bowel sounds, nondistended, soft, nontender Extremities- no pretibial edema, no calf tenderness Neuro- Sleepy but answering questions; no new gross focal neurologic deficits Skin- warm & dry Results & Data Results & Data Vital Signs (Past 12 Hours) Vital Signs Temp Pulse Pulse Resp BP Pulse Ox O2 Del Method 07/11/24 11:12 36.5 C 104 H 14 116/81 98 07/11/24 07:58 37.0 C 103 H 18 128/83 98 Room Air 07/11/24 07:44 Room Air 07/11/24 06:59 102 H 07/11/24 03:49 36.6 C 102 H 16 105/72 97 Room Air
[2024-07-11] MEDS: [UNRECOGNIZED DRUG - OTHER] IV SCH (15:22)
[2024-07-11] MEDS: CENTRAL TPN IV SCH (15:22)
[2024-07-11] MEDS: CLINOLIPID 20% IV FAT EMULSION 250 ML IV SCH (15:22)
[2024-07-11] MEDS: CEFEPIME 2000MG 2,000 MG/20 ML SYR IV SCH (20:59)
[2024-07-12 07:10] LABS: Hematocrit (blood only) 29.3 % (37.0-47.0); Hemoglobin 9.4 g/dl (12.0-16.0); Mean Corpuscular Hemoglobin 30.4 pg (25.0-34.0); Mean Corpuscular Hgb Conc 32.1 g/dL (32.0-36.0); Mean Corpuscular Volume 94.8 fL (80.0-100.0); Mean Platelet Volume 10.1 fL (9.4-12.4); Platelet Count 189 K/uL (130-400); RDW Coefficient of Variation 17.4 % (11.5-14.5); RDW Standard Deviation 60.4 fL (36.4-46.3); Red Blood Count 3.09 M/uL (4.20-5.40); White Blood Count 6.45 K/ul (4.8-10.8)
[2024-07-12 07:54] LABS: BUN Creatinine Ratio 74.1 (10-20); Calcium 8.9 mg/dl (8.6-10.3); Creatinine Clr Calc Pharmacy 59.5 ml/min; Magnesium 2.2 mg/dl (1.7-2.4); Phosphorus 3.5 mg/dl (2.5-4.9); Potassium 3.9 mmol/L (3.5-5.1)
--- NOTE | 2024-07-12 11:01 | Pharmacy Report ---
Pharmacy PN Follow-up Note - Date of Service July 12, 2024 - Subjective Patient is currently on day #21 of TPN. - Objective Height & Weight (Last Documented) Height 5 ft 5 in Weight 71.4 kg Diet Order(s) 07/04/24 Lunch Diet Intake & Ouput (24hrs) 07/11/24 07/12/24 07/13/24 06:59 06:59 06:59 Intake Total 1487.2 / 1487.2 1607.568 / 1607.568 Output Total 1275 / 1275 700 / 700 Balance 212.2 / 212.2 907.568 / 907.568 Selected Laboratory Results 07/12/24 06:37 Sodium 142 Potassium 3.9 Chloride 110 H Carbon Dioxide 23 Anion Gap 9 BUN 60 H Creatinine 0.81 BUN/Creatinine Ratio 74.1 H Glucose 138 H Calcium 8.9 Phosphorus 3.5 Magnesium 2.2 - Assessment & Plan Assessment: * Patient continues with TPN, still very poor PO intake. Palliative care consulted, per notes patient would like to continue with current management. TPN currently at our goal Kcal. Plan: * For Day #21 of TPN administration, the following will be ordered: * Macronutrients: * Amino Acids: 80 grams/day * Dextrose: 140 grams/day * Lipids: 50 grams/day * Micronutrients: * TPN electrolytes: 20 mL/day Contains 35 mEq Na, 20 mEq K, 4.5 mEq Ca, 5 mEq Mg, 35 mEq Cl, 29.5 mEq Acetate per 20 mL * Sodium acetate: 130 mEq/day * Potassium phosphate: 30 mMol/day * Magnesium sulfate: 12.18 mEq/day * Multivitamins: 10 mL/day * Trace elements: 1 mL/day * Thiamine: 100 mg/day * Folic Acid: 1 mg/day * Total volume of 1109 will be infused over 24 hours and will provide 1296 kcal/day * Labs will be ordered per PN protocol. * Pharmacy will follow and adjust PN orders on a daily basis. Thank you!
[2024-07-12] MEDS: [UNRECOGNIZED DRUG - OTHER] IV SCH (15:41)
[2024-07-12] MEDS: CENTRAL TPN IV SCH (15:41)
[2024-07-12] MEDS: CLINOLIPID 20% IV FAT EMULSION 250 ML IV SCH (15:42)
--- NOTE | 2024-07-12 16:52 | Hospitalist Progress Note ---
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 Patient was also noted to have bowel obstruction 2 days after presentation. This bowel obstruction was management conservatively. Surgery signed off--stating that surgical intervention will only be pursued in an emergent situation. GI evaluated patient and spoke to Dr Morris for possible stent placement. The concern of eroding tumor may be contributing to occult anemia. From 06/17 to 06/18, patient with more alertness and ability to participate in exam. Attempting to eat more as able. Noted that liver enzymes are uptrending and given vague discomfort will order KUB to start to assess obstruction and will consider repeat CT ABD/P contingent on trend of LFTS. On 06/19, it was expressed to that patients medical condition is tenuous. That regardless of "where" she discharges it is hard to say when the recurrence of symptoms may come and if/when she may come back. Expressed need for prompt Onc follow up to establish plan. From 06/21 to 06/27, patient developed recurrence of abdominal pain, CT abdomen and pelvis revealing small bowel obstruction with mesenteric hernia, and large bowel obstruction in the hepatic flexure, secondary to tethered gallbladder mass. This was managed with conservative measures and small bowel follow through confirmed resolution. However, patient with marked lethargy and fluctuating delirium. patient remains on PPN due to poor po intake. Prior attending's d/w Dr. Christie--requested encounter with family to discuss treatment options given complicated and prolonged course in hospital. Patient's states Dr. Christie spoke with him and his daughter on 06/28--stating someth ing to the effect that "she has to get through this to get to the clinic." On 07/01, rkuse exchanged and patient received 1 U PRBC. Heparin and eliquis held. Patient high risk for DVTs iso malignant and hx there of. Vascular to discuss appropriateness of IVC filter especially given question of possible surgery. Given no active clots, IVC filter deferred. Doppler pursued on 07/03 which was negative for DVT. Resumed SCD/rob stockings in interim Concern for looming reobstruction, will start management for malignant bowel obstruction. After thoughtful conversation with Palliative and , patient completed 5 day course of IV dexamethasone. Discussed case with Dr Montenegro over the phone who will discuss possible diverting ileostomy with Dr. Garcia. Patient is a high risk, however, this procedure could provide bridge for home. On day prior to possible surgery on 07/10, patient wished to cancel procedure. Plan now is to continue TPN, continue CLD as tolerated. No plans to advance PO diet given concern for reobstruction and prolonging admission/complications and given patient goal to discharge and pursue therapy, will attempt to bridge to rehab and see if patient can establish with Heme/Onc. #Complicated UTI: noted 07/07, Urine Cx contaminate. c/w cefepime 07/07. plan for 5 days therapy. EOT 07/12 #RLE edema #Recent DVT BLE 03/2024: Acute deep venous thrombosis in the bilateral lower extremity in the segments as noted above. 07/03/2024: no DVT RESUME SCDs/Rob stockings Heparin on hold due to concern occult bleeding from tumor Pt and her aware of the increased risk of blood clot if not being on blood thinner lobito given her cancer status but given anemia (likely 2/2 eroding tumor) which could be exacerbated by blood thinner, they are ok w/ holding blood thinner. #Malignant Bowel Obstruction #Small bowel Obstruction #Large Bowel Obstruction Recurrent bowel obstructions, managed conservatively. CT abdomen and pelvis revealing small bowel obstruction with mesenteric hernia, and large bowel obstruction in the hepatic flexure, secondary to tethered gallbladder mass. General surgery consulted, appreciate recs: no surgical intervention GI: no further stenting; conservative management Palliative evaled given need for optimizing symptomatic control v transitioning to [facility], difficult to broach conversation. Completed course Dexamethsone for MBO, s/p IV 6mg qd for 5 days (02/05) PPN started, continue. Poor intake, home megace was dc'd after d/w pt and her family given increased risk of blood clot. they agreed for remeron which has been started. On clears since 07/04, pt denies N, V, abd pain. Reports moving gas. Gen Sx had plan for diverting ostomy on 07/10, Pt and her family decided against surgery on 07/09 evening. Continue PPN and continue CLD, will hold on advancement given mechanical obstruction iso malignancy #Acute on chronic Anemia s/p 3 unit PRBC (06/12, 06/23, 07/01) so far, home eliquis on hold. FOBT positive Anemia multifactorial, major part played likely by eroding tumor contributing to occult anemia. Monitor HnH, transfuse for Hb < 7. Continue Protonix IV twice daily Holding Eliquis for down trending Hgb Prior attending discussed IVC filter placement with Vascular: given no active DVT, no indication for IVC Heparin on hold given recurrent need for blood transfusion, teds/scds for now #Acute toxic metabolic encephalopathy *fluctuating/stable likely multifactorial--chronic leukoencephalopathy, delirium 2/2 chronic illness, malnutrition patient again developed progressive lethargy over the weekend Extensive workup including CT head, VBG, ammonia, TSH, cortisol, and infectious workup repeated-all unrevealing Neurology service reconsulted, does not recommend any other testing at this point avoid benzos/sedatives Encourage delirium precautions and sleep hygiene Continue to monitor closely #Transaminitis #Adenocarcinoma of gallbladder Last FOLFOX treatment 05/[address] Gross; transitioned to Dr. Christie Continue Megace 06/08- patient's family requested 5FU reversal, but not warranted at this time per Oncology As above GI consult for further recs per General Surgery. Family hopeful for a "treatment" and ways to get patient "out and to the clinic" -Discussing that this is complicated 2/2 to recurrent obstruction Manage conservatively as above #Chemotherapy induced Neutropenia *resolved #Lactic acidosis iso obstruction/dehydration sepsis ruled out Pt with progressing neutropenia, in the setting of recent chemotherapy Lactate initially 4.4 on admission ->normalized to 2.0 with fluids Chest XRAY with no acute infection UA unremarkable, respiratory testing negative, MRSA nares negative Blood Cx x1 set NGTD. 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 Property Caretaker/Oncologist Dr Christie on 06/08, s/p neupogen 480 mcg subcu for neutropenia for 3 days Need prompt OP Onc follow up if patient desires for pursuing further treatment #EUGENE superimposed on CKD *resolved 2/2 decreased oral intake/possible infection following chemo tx 05/30 Creatinine 2.36 on admission (previously 1.7 eight days prior) CTM, at baseline #Generalized weakness #Hyponatremiaresolved #Hypernatremia continue PPN and trend BMP #Hypokalemia #Hypocalcemia #Hypophosphatemia replacement underway #Malnutrition Likely in setting of above Technical Asst consult PPN on going #H/o DVT Eliquis held for SBO, possible emergency procedures held heparin sq; vascular to discuss case: no indication of IVC at this time #HTN (hypertension) Continue atenolol #History of breast cancer S/p left partial mastectomy, XRT, 5 years of tamoxifen completed in August 2022 #Restless legs syndrome (RLS) Clonazepam HS PRN #Acute respiratory alkalosis secondary metabolic alkalosis resolved #Diarrhea improved Resolved at this time Diet: CLD, PPN DVT Ppx: Eliquis held, sq Heparin on hold; SCDs/ rob stockings Code status: FULL PCP: Lore[facility] Dispo: pending Admission and Anticipated Discharge Date Admission Date: June 06, 2024 Subjective NAEO States she has intermittent abdominal pain, but nothing consistent 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 "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" and concerned that "IV nutrients are making [her] tired" --reassured this is not the case Not wishing to engage in deep discussion regarding status and at bedside for majority of conversation, both hopeful to "get out, try to walk, and start treatment" Physical Exam Constitutional: chronically ill appearing woman, more interactive than prior exams per this customs entry writer week prior Respiratory: normal respiratory effort, lungs clear to auscultation Cardiovascular: tachycardic, no mrg Gastrointestinal (Abdomen): normal bowel sounds, soft, nontender, no hepatosplenomegaly Results & Data Results & Data Vital Signs (Past 12 Hours) Vital Signs Temp Pulse Pulse Resp BP Pulse Ox O2 Del Method 07/12/24 15:09 36.6 C 96 H 20 139/64 98 Room Air 07/12/24 11:30 36.6 C 87 18 125/74 97 Room Air 07/12/24 07:56 36.7 C 119 H 20 119/70 96 Room Air 07/12/24 07:44 Room Air 07/12/24 07:04 100 H Laboratory Results Short CBC 10/09/24 Range/Units 06:37 WBC 6.45 (4.8-10.8) K/ul Hgb 9.4 L (12.0-16.0) g/dl Hct 29.3 L (37.0-47.0) % Plt Count 189 (130-400) K/uL [facility] 07/12/24 06:37 Sodium 142 Potassium 3.9 Chloride 110 H Carbon Dioxide 23 BUN 60 H Creatinine 0.81 Glucose 138 H Calcium 8.9 Medications Administered Home Medications Medication Instructions Recorded Confirmed Last Taken calcium 600 mg (as 1 cap PO DAILY 04/08/22 06/06/24 Unknown carbonate)-vitamin D3 12.5 mcg (500 unit) capsule (Calcium with Vit D3) atenolol 25 mg tablet 12.5 mg PO DAILY 12/03/22 06/06/24 Unknown clonazepam 0.5 mg tablet 0.5 mg PO HS PRN anxiety or sleep 12/03/22 06/06/24 Unknown magnesium 200 mg tablet 400 mg PO 2XD 06/29/23 06/06/24 Unknown apixaban 5 mg tablet (Eliquis) 5 mg PO BID 06/06/24 06/06/24 Unknown megestrol 625 mg/5 mL (125 mg/mL) 2 ml PO DAILY 06/06/24 06/06/24 Unknown oral suspension prochlorperazine maleate 10 mg 10 mg PO Q6H PRN Nausea 06/06/24 06/06/24 Unknown tablet Active Medications Generic Name Dose Route Start Last Admin Trade Name Freq PRN Reason Stop Dose Admin Acetaminophen 1,000 mg 06/13/24 10:15 07/07/24 04:13 Acetaminophen 500 Mg Tab PO 07/13/24 10:14 1,000 mg Q8H PRN Administration Mild Pain (Scale 1, 2, 3) Heparin Sodium (Porcine) 5,000 units 06/22/24 14:00 06/23/24 14:09 Heparin Sod 5,000 Unit/0.5 Ml Vial SQ 07/22/24 13:59 5,000 units Q8 JOSEPH Administration Pantoprazole Sodium 40 mg/ 10 mls @ 5 mls/min 06/21/24 21:00 07/12/24 08:11 Syringe IV 07/21/24 20:59 5 mls/min BID JOSEPH Administration Cefepime HCl 2,000 mg in 20 mls @ 5 mls/min 07/11/24 21:00 07/12/24 08:11 Maxipime 2000mg IV 07/12/24 23:59 5 mls/min Q12 JOSEPH Administration Protocol Amino Acids/Dextrose 1,110 ml/ 1,110 mls @ 46 mls/hr 07/12/24 16:00 07/12/24 15:41 Nutrition (Parenteral) IV 07/13/24 15:59 46 mls/hr .Q24H JOSEPH Administration Protocol Fat Emulsion-[place] Oil/Soybean Oil 250 mls @ 41.667 mls/hr 07/12/24 16:00 07/12/24 15:42 Clinolipid 20% Iv Fat Emulsion IV 07/12/24 21:59 41.7 mls/hr .Q6H JOSEPH Administration Insulin Aspart 0 units 07/04/24 16:30 07/12/24 12:29 Insulin Aspart Per Unit Charge SC 07/30/24 00:00 2 units ACHS JOSEPH Administration Lactobacillus Acidophilus 1,250 mg 07/08/24 16:45 07/12/24 08:12 Advanced Probiotic 625 Mg Capsule PO 08/07/24 16:44 Not Given DAILY JOSEPH Lidocaine 1 patch 06/13/24 10:30 07/12/24 08:11 Lidocaine 5% 1 Patch TD 07/13/24 10:29 1 patch QAM JOSEPH Administration Megestrol Acetate 250 mg 06/18/24 09:00 07/07/24 08:14 Megestrol Acetate Susp 400 Mg/10 Ml Udc PO 07/18/24 08:59 250 mg DAILY JOSEPH Administration Mirtazapine 7.5 mg 07/07/24 21:00 07/11/24 20:55 Mirtazapine Soltab 15 Mg PO 08/06/24 20:59 Not Given HS JOSEPH Miscellaneous 1 each 06/13/24 21:00 07/11/24 20:59 Remove Lidoderm Patch N/A 07/13/24 20:59 1 each DAILY@2100 JOSEPH Administration Miscellaneous 1 each 06/27/24 22:00 07/11/24 21:46 Stop Clinolipid N/A 07/27/24 21:59 1 each Q24H JOSEPH Administration Potassium Chloride 40 meq 06/14/24 09:15 06/24/24 08:29 Potassium Chloride Pwd 20 Meq Pack PO 07/14/24 09:14 Not Given BID JOSEPH Scopolamine 1 patch 06/20/24 11:45 06/23/24 11:52 Scopolamine 1 Mg/72 Hr Tdsy Patch TD 07/20/24 11:44 1 patch Q72H JOSEPH Administration
[2024-07-13 07:26] LABS: Hematocrit (blood only) 30.1 % (37.0-47.0); Hemoglobin 9.3 g/dl (12.0-16.0); Mean Corpuscular Hemoglobin 29.9 pg (25.0-34.0); Mean Corpuscular Hgb Conc 30.9 g/dL (32.0-36.0); Mean Corpuscular Volume 96.8 fL (80.0-100.0); Mean Platelet Volume 10.1 fL (9.4-12.4); Nucleated RBC # (auto) 0.02 K/uL (0.00-0.12); Nucleated RBC % (auto) 0.3 %; Platelet Count 186 K/uL (130-400); RDW Coefficient of Variation 17.3 % (11.5-14.5); Red Blood Count 3.11 M/uL (4.20-5.40); White Blood Count 7.05 K/ul (4.8-10.8)
[2024-07-13 07:48] LABS: Albumin Globulin Ratio 0.7 (0.9-2); Albumin Level 2.7 gm/dl (3.4-5.0); BUN Creatinine Ratio 70.1 (10-20); Bilirubin,Total 0.8 mg/dl (0.2-1.0); Calcium 8.7 mg/dl (8.6-10.3); Creatinine Clr Calc Pharmacy 55.4 ml/min; Globulin 3.9 gm/dl (2.5-4.0); Magnesium 2.2 mg/dl (1.7-2.4); Phosphorus 3.5 mg/dl (2.5-4.9); Potassium 3.9 mmol/L (3.5-5.1); Total Protein 6.6 gm/dl (6.0-8.3)
--- NOTE | 2024-07-13 11:26 | Hospitalist Progress Note ---
Date of Service July 13, 2024 Assessment & Plan (1) Acute kidney injury superimposed on CKD: (2) Elevated lactic acid level: (3) Acute hyponatremia: (4) Adenocarcinoma of gallbladder: (5) History of DVT (deep vein thrombosis): (6) Anxiety: Plan Ms. 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 Patient was also noted to have bowel obstruction 2 days after presentation. This bowel obstruction was management conservatively. Surgery signed off--stating that surgical intervention will only be pursued in an emergent situation. GI evaluated patient and spoke to Dr Morris for possible stent placement. The concern of eroding tumor may be contributing to occult anemia. From 06/17 to 06/18, patient with more alertness and ability to participate in exam. Attempting to eat more as able. Noted that liver enzymes are uptrending and given vague discomfort will order KUB to start to assess obstruction and will consider repeat CT ABD/P contingent on trend of LFTS. On 06/19, it was expressed to that patients medical condition is tenuous. That regardless of "where" she discharges it is hard to say when the recurrence of symptoms may come and if/when she may come back. Expressed need for prompt Onc follow up to establish plan. From 06/21 to 06/27, patient developed recurrence of abdominal pain, CT abdomen and pelvis revealing small bowel obstruction with mesenteric hernia, and large bowel obstruction in the hepatic flexure, secondary to tethered gallbladder mass. This was managed with conservative measures and small bowel follow through confirmed resolution. However, patient with marked lethargy and fluctuating delirium. patient remains on PPN due to poor po intake. Prior attending's d/w Dr. Christie--requested encounter with family to discuss treatment options given complicated and prolonged course in hospital. Patient's states Dr. Christie spoke with him and his daughter on 06/28--stating something to the effect that "she has to get through this to get to the clinic." On 07/01, kruse exchanged and patient received 1 U PRBC. Heparin and eliquis held. Patient high risk for DVTs iso malignant and hx there of. Vascular to discuss appropriateness of IVC filter especially given question of possible surgery. Given no active clots, IVC filter deferred. Doppler pursued on 07/03 which was negative for DVT. Resumed SCD/rob stockings in interim Concern for looming reobstruction, will start management for malignant bowel obstruction. After thoughtful conversation with Palliative and , patient completed 5 day course of IV dexamethasone. Discussed case with Dr Montenegro over the phone who will discuss possible diverting ileostomy with Dr. Garcia. Patient is a high risk, however, this procedure could provide bridge for home. On day prior to possible surgery on 07/10, patient wished to cancel procedure. Plan now is to continue TPN, continue CLD as tolerated. No plans to advance PO diet given concern for reobstruction and prolonging admission/complications and given patient goal to discharge and pursue therapy, will attempt to bridge to rehab and see if patient can establish with Heme/Onc. Patient motivated for therapy. #RLE edema resolved #Recent DVT BLE 03/2024: Acute deep venous thrombosis in the bilateral lower extremity in the segments as noted above. 07/03/2024: no DVT RESUME SCDs/Rob stockings Heparin on hold due to concern occult bleeding from tumor Pt and her aware of the increased risk of blood clot if not being on blood thinner lobito given her cancer status but given anemia (likely 2/2 eroding tumor) which could be exacerbated by blood thinner, they are ok w/ holding blood thinner. Holding DVT ppx at this time #Complicated UTI: noted 07/07, Urine Cx contaminate. c/w cefepime 07/07.completed 5 days abx 07/12 #Malignant Bowel Obstruction #Small bowel Obstruction #Large Bowel Obstruction Recurrent bowel obstructions, managed conservatively. CT abdomen and pelvis revealing small bowel obstruction with mesenteric hernia, and large bowel obstruction in the hepatic flexure, secondary to tethered gallbladder mass. General surgery consulted, appreciate recs: no surgical intervention GI: no further stenting; conservative management Palliative evaled given need for optimizing symptomatic control v transitioning to [facility], difficult to broach conversation. Completed course Dexamethsone for MBO, s/p IV 6mg qd for 5 days (02/05) PPN started, continue. Poor intake, home megace was dc'd after d/w pt and her family given increased risk of blood clot. they agreed for remeron which has been started. On clears since 07/04, pt denies N, V, abd pain. Reports moving gas. Gen Sx had plan for diverting ostomy on 07/10, Pt and her family decided against surgery on 07/09 evening. Continue PPN and continue CLD, will hold on advancement given mechanical obstruction iso malignancy Encourgae OOB #Acute on chronic Anemia s/p 3 unit PRBC (06/12, 06/23, 07/01) so far, home eliquis on hold. FOBT positive Anemia multifactorial, major part played likely by eroding tumor contributing to occult anemia. Monitor HnH, transfuse for Hb < 7. Continue Protonix IV twice daily Holding Eliquis for down trending Hgb Prior attending discussed IVC filter placement with Vascular: given no active DVT, no indication for IVC Heparin on hold given recurrent need for blood transfusion, teds/scds for now Remains stable for now #Acute toxic metabolic encephalopathy *fluctuating/stable likely multifactorial--chronic leukoencephalopathy, delirium 2/2 chronic illness, malnutrition patient again developed progressive lethargy over the weekend Extensive workup including CT head, VBG, ammonia, TSH, cortisol, and infectious workup repeated-all unrevealing Neurology service reconsulted, does not recommend any other testing at this point avoid benzos/sedatives Encourage delirium precautions and sleep hygiene Continue to monitor closely #Transaminitis stable #Adenocarcinoma of gallbladder Last FOLFOX treatment 05/[address] Gross; transitioned to Dr. Christie Continue Megace 06/08- patient's family requested 5FU reversal, but not warranted at this time per Oncology As above GI consult for further recs per General Surgery. Family hopeful for a "treatment" and ways to get patient "out and to the clinic" -Discussing that this is complicated 2/2 to recurrent obstruction Manage conservatively as above #Chemotherapy induced Neutropenia *resolved #Lactic acidosis iso obstruction/dehydration sepsis ruled out Pt with progressing neutropenia, in the setting of recent chemotherapy Lactate initially 4.4 on admission ->normalized to 2.0 with fluids Chest XRAY with no acute infection UA unremarkable, respiratory testing negative, MRSA nares negative Blood Cx x1 set NGTD. 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 going #H/o DVT Eliquis held for SBO, possible emergency procedures held heparin sq; vascular to discuss case: no indication of IVC at this time #HTN (hypertension) Continue atenolol #History of breast cancer S/p left partial mastectomy, XRT, 5 years of tamoxifen completed in August 2022 #Restless legs syndrome (RLS) Clonazepam HS PRN #Acute respiratory alkalosis secondary metabolic alkalosis resolved #Diarrhea improved Resolved at this time Diet: CLD, PPN DVT Ppx: Eliquis held, sq Heparin on hold; SCDs/ rob stockings Code status: FULL PCP: Lore[facility] Dispo: pending, [facility] pending Admission and Anticipated Discharge Date Admission Date: June 06, 2024 Subjective NAEO Denies new symptoms and tolerating clears at this time Physical Exam Constitutional: chronically ill appearing woman Respiratory: normal respiratory effort, lungs clear to auscultation Cardiovascular: tachycardic Gastrointestinal (Abdomen): normal bowel sounds, soft, nontender, no hepatosplenomegaly Results & Data Results & Data Vital Signs (Past 12 Hours) Vital Signs Temp Pulse Pulse Resp BP Pulse Ox O2 Del Method 07/13/24 09:00 Room Air 07/13/24 07:51 36.9 C 115 H 18 124/63 96 Room Air 07/13/24 07:15 107 H 07/13/24 03:13 36.8 C 106 H 20 104/75 98 Room Air Laboratory Results Short CBC 07/13/24 Range/Units 07:02 WBC 7.05 (4.8-10.8) K/ul Hgb 9.3 L (12.0-16.0) g/dl Hct 30.1 L (37.0-47.0) % Plt Count 186 (130-400) K/uL BMP 07/13/24 07:02 Sodium 144 Potassium 3.9 Chloride 110 H Carbon Dioxide 23 BUN 61 H Creatinine 0.87 Glucose 139 H Calcium 8.7 Liver Function 07/13/24 Range/Units 07:02 Total Bilirubin 0.8 (0.2-1.0) mg/dl AST 26 (13-39) U/L ALT 44 (7-52) U/L Alkaline Phosphatase 266 H (34-104) U/L Albumin 2.7 L (3.4-5.0) gm/dl Medications Administered Home Medications Medication Instructions Recorded Confirmed Last Taken calcium 600 mg (as 1 cap PO DAILY 04/08/22 06/06/24 Unknown carbonate)-vitamin D3 12.5 mcg (500 unit) capsule (Calcium with Vit D3) atenolol 25 mg tablet 12.5 mg PO DAILY 12/03/22 06/06/24 Unknown clonazepam 0.5 mg tablet 0.5 mg PO HS PRN anxiety or sleep 12/03/22 06/06/24 Unknown magnesium 200 mg tablet 400 mg PO 2XD 06/29/23 06/06/24 Unknown apixaban 5 mg tablet (Eliquis) 5 mg PO BID 06/06/24 06/06/24 Unknown megestrol 625 mg/5 mL (125 mg/mL) 2 ml PO DAILY 06/06/24 06/06/24 Unknown oral suspension prochlorperazine maleate 10 mg 10 mg PO Q6H PRN Nausea 06/06/24 06/06/24 Unknown tablet Active Medications Generic Name Dose Route Start Last Admin Trade Name Freq PRN Reason Stop Dose Admin Pantoprazole Sodium 40 mg/ 10 mls @ 5 mls/min 06/21/24 21:00 07/13/24 09:00 Syringe IV 07/21/24 20:59 5 mls/min BID JOSEPH Administration Amino Acids/Dextrose 1,110 ml/ 1,110 mls @ 46 mls/hr 07/12/24 16:00 07/12/24 15:41 Nutrition (Parenteral) IV 07/13/24 15:59 46 mls/hr .Q24H JOSEPH Administration Protocol Insulin Aspart 0 units 07/04/24 16:30 07/13/24 08:46 Insulin Aspart Per Unit Charge SC 07/30/24 00:00 1 units ACHS JOSEPH Administration Lactobacillus Acidophilus 1,250 mg 07/08/24 16:45 07/13/24 08:44 Advanced Probiotic 625 Mg Capsule PO 08/07/24 16:44 Not Given DAILY JOSEPH Mirtazapine 7.5 mg 07/07/24 21:00 07/12/24 20:11 Mirtazapine Soltab 15 Mg PO 08/06/24 20:59 7.5 mg HS JOSEPH Administration
[2024-07-13] MEDS: CLINOLIPID 20% IV FAT EMULSION 250 ML IV SCH (15:52)
[2024-07-13] MEDS: CENTRAL TPN IV SCH (15:52)
[2024-07-13] MEDS: [UNRECOGNIZED DRUG - OTHER] IV SCH (15:52)
[2024-07-14 06:50] LABS: BUN Creatinine Ratio 68.2 (10-20); Magnesium 2.5 mg/dl (1.7-2.4); Potassium 3.8 mmol/L (3.5-5.1)
--- NOTE | 2024-07-14 14:51 | Hospitalist Progress Note ---
Date of Service July 14, 2024 Assessment & Plan (1) Acute kidney injury superimposed on CKD: (2) Elevated lactic acid level: (3) Acute hyponatremia: (4) Adenocarcinoma of gallbladder: (5) History of DVT (deep vein thrombosis): (6) Anxiety: Plan Ms. 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 Patient was also noted to have bowel obstruction 2 days after presentation. This bowel obstruction was management conservatively. Surgery signed off--stating that surgical intervention will only be pursued in an emergent situation. GI evaluated patient and spoke to Dr Morris for possible stent placement. The concern of eroding tumor may be contributing to occult anemia. From 06/17 to 06/18, patient with more alertness and ability to participate in exam. Attempting to eat more as able. Noted that liver enzymes are uptrending and given vague discomfort will order KUB to start to assess obstruction and will consider repeat CT ABD/P contingent on trend of LFTS. On 06/19, it was expressed to that patients medical condition is tenuous. That regardless of "where" she discharges it is hard to say when the recurrence of symptoms may come and if/when she may come back. Expressed need for prompt Onc follow up to establish plan. From 06/21 to 06/27, patient developed recurrence of abdominal pain, CT abdomen and pelvis revealing small bowel obstruction with mesenteric hernia, and large bowel obstruction in the hepatic flexure, secondary to tethered gallbladder mass. This was managed with conservative measures and small bowel follow through confirmed resolution. However, patient with marked lethargy and fluctuating delirium. patient remains on PPN due to poor po intake. Prior attending's d/w Dr. Christie--requested encounter with family to discuss treatment options given complicated and prolonged course in hospital. Patient's states Dr. Christie spoke with him and his daughter on 06/28--stating something to the effect that "she has to get through this to get to the clinic." On 07/01, kruse exchanged and patient received 1 U PRBC. Heparin and eliquis held. Patient high risk for DVTs iso malignant and hx there of. Vascular to discuss appropriateness of IVC filter especially given question of possible surgery. Given no active clots, IVC filter deferred. Doppler pursued on 07/03 which was negative for DVT. Resumed SCD/rob stockings in interim Concern for looming reobstruction, will start management for malignant bowel obstruction. After thoughtful conversation with Palliative and , patient completed 5 day course of IV dexamethasone. Discussed case with Dr Montenegro over the phone who will discuss possible diverting ileostomy with Dr. Garcia. Patient is a high risk, however, this procedure could provide bridge for home. On day prior to possible surgery on 07/10, patient wished to cancel procedure. Plan now is to continue TPN, continue CLD as tolerated. No plans to advance PO diet given concern for reobstruction and prolonging admission/complications and given patient goal to discharge and pursue therapy, will attempt to bridge to rehab and see if patient can establish with Heme/Onc. Patient motivated for therapy. Plan for [id number] with [facility] today. #RLE edema resolved #Recent DVT BLE 03/2024: Acute deep venous thrombosis in the bilateral lower extremity in the segments as noted above. 07/03/2024: no DVT RESUME SCDs/Rob stockings Heparin on hold due to concern occult bleeding from tumor Pt and her aware of the increased risk of blood clot if not being on blood thinner lobito given her cancer status but given anemia (likely 2/2 eroding tumor) which could be exacerbated by blood thinner, they are ok w/ holding blood thinner. Holding DVT ppx at this time #Complicated UTI: noted 07/07, Urine Cx contaminate. c/w cefepime 07/07.completed 5 days abx 07/12 #Malignant Bowel Obstruction #Small bowel Obstruction #Large Bowel Obstruction Recurrent bowel obstructions, managed conservatively. CT abdomen and pelvis revealing small bowel obstruction with mesenteric hernia, and large bowel obstruction in the hepatic flexure, secondary to tethered gallbladder mass. General surgery consulted, appreciate recs: no surgical intervention GI: no further stenting; conservative management Palliative evaled given need for optimizing symptomatic control v transitioning to GoC, difficult to broach conversation. Completed course Dexamethsone for MBO, s/p IV 6mg qd for 5 days (02/05) PPN started, continue. Poor intake, home megace was dc'd after d/w pt and her family given increased risk of blood clot. they agreed for remeron which has been started. On clears since 07/04, pt denies N, V, abd pain. Reports moving gas. Gen Sx had plan for diverting ostomy on 07/10, Pt and her family decided against surgery on 07/09 evening. Continue PPN and continue CLD, will hold on advancement given mechanical obstruction iso malignancy Encourage OOB #Acute on chronic Anemia *stable s/p 3 unit PRBC (06/12, 06/23, 07/01) so far, home eliquis on hold. FOBT positive Anemia multifactorial, major part played likely by eroding tumor contributing to occult anemia. Monitor HnH, transfuse for Hb < 7. Continue Protonix IV twice daily Holding Eliquis for down trending Hgb Prior attending discussed IVC filter placement with Vascular: given no active DVT, no indication for IVC Heparin on hold given recurrent need for blood transfusion, teds/scds for now Remains stable for now #Acute toxic metabolic encephalopathy *fluctuating/stable likely multifactorial--chronic leukoencephalopathy, delirium 2/2 chronic illness, malnutrition patient again developed progressive lethargy over the weekend Extensive workup including CT head, VBG, ammonia, TSH, cortisol, and infectious workup repeated-all unrevealing Neurology service reconsulted, does not recommend any other testing at this point avoid benzos/sedatives Encourage delirium precautions and sleep hygiene Continue to monitor closely #Transaminitis stable #Adenocarcinoma of gallbladder Last FOLFOX treatment 05/[address] Gross; transitioned to Dr. Christie Continue Megace 06/08- patient's family requested 5FU reversal, but not warranted at this time per Oncology As above GI consult for further recs per General Surgery. Family hopeful for a "treatment" and ways to get patient "out and to the clinic" -Discussing that this is complicated 2/2 to recurrent obstruction Manage conservatively as above #Chemotherapy induced Neutropenia *resolved #Lactic acidosis iso obstruction/dehydration sepsis ruled out Pt with progressing neutropenia, in the setting of recent chemotherapy Lactate initially 4.4 on admission ->normalized to 2.0 with fluids Chest XRAY with no acute infection UA unremarkable, respiratory testing negative, MRSA nares negative Blood Cx x1 set NGTD. 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 on going #H/o DVT Eliquis held for SBO, possible emergency procedures held heparin sq; vascular to discuss case: no indication of IVC at this time #HTN (hypertension) Continue atenolol #History of breast cancer S/p left partial mastectomy, XRT, 5 years of tamoxifen completed in August 2022 #Restless legs syndrome (RLS) Clonazepam HS PRN #Acute respiratory alkalosis secondary metabolic alkalosis resolved #Diarrhea improved Resolved at this time Diet: CLD, PPN DVT Ppx: Eliquis held, sq Heparin on hold; SCDs/ rob stockings Code status: FULL PCP: [facility] Dispo: pending, [facility] pending Admission and Anticipated Discharge Date Admission Date: June 06, 2024 Subjective NAEO Reports that she really enjoyed the chicken broth and denies abdominal pain report +flatus , denies nausea Physical Exam Constitutional: WD/WN, vitals as above Respiratory: normal respiratory effort, lungs clear to auscultation Cardiovascular: tachycardic Results & Data Results & Data Vital Signs (Past 12 Hours) Vital Signs Temp Pulse Resp BP Pulse Ox O2 Del Method 07/14/24 07:50 Room Air 07/14/24 07:15 36.8 C 114 H 18 107/83 97 Room Air Laboratory Results [facility] 07/14/24 05:48 Sodium 145 Potassium 3.8 Chloride 109 H Carbon Dioxide 26 BUN 73 H Creatinine 1.07 Glucose 164 H Calcium 9.0 Medications Administered Home Medications Medication Instructions Recorded Confirmed Last Taken calcium 600 mg (as 1 cap PO DAILY 04/08/22 06/06/24 Unknown carbonate)-vitamin D3 12.5 mcg (500 unit) capsule (Calcium with Vit D3) atenolol 25 mg tablet 12.5 mg PO DAILY 12/03/22 06/06/24 Unknown clonazepam 0.5 mg tablet 0.5 mg PO HS PRN anxiety or sleep 12/03/22 06/06/24 Unknown magnesium 200 mg tablet 400 mg PO 2XD 06/29/23 06/06/24 Unknown apixaban 5 mg tablet (Eliquis) 5 mg PO BID 06/06/24 06/06/24 Unknown megestrol 625 mg/5 mL (125 mg/mL) 2 ml PO DAILY 06/06/24 06/06/24 Unknown oral suspension prochlorperazine maleate 10 mg 10 mg PO Q6H PRN Nausea 06/06/24 06/06/24 Unknown tablet Active Medications Generic Name Dose Route Start Last Admin Trade Name Freq PRN Reason Stop Dose Admin Pantoprazole Sodium 40 mg/ 10 mls @ 5 mls/min 06/21/24 21:00 07/14/24 09:30 Syringe IV 07/21/24 20:59 5 mls/min BID JOSEPH Administration Amino Acids/Dextrose 1,110 ml/ 1,110 mls @ 46 mls/hr 07/13/24 16:00 07/13/24 15:52 Nutrition (Parenteral) IV 07/14/24 15:59 46 mls/hr .Q24H JOSEPH Administration Protocol Insulin Aspart 0 units 07/04/24 16:30 07/14/24 12:06 Insulin Aspart Per Unit Charge SC 07/30/24 00:00 1 units ACHS JOSEPH Administration Lactobacillus Acidophilus 1,250 mg 07/08/24 16:45 07/14/24 08:10 Advanced Probiotic 625 Mg Capsule PO 08/07/24 16:44 Not Given DAILY JOSEPH Mirtazapine 7.5 mg 07/07/24 21:00 07/13/24 20:48 Mirtazapine Soltab 15 Mg PO 08/06/24 20:59 7.5 mg HS JOSEPH Administration
[2024-07-14] MEDS: CENTRAL TPN IV SCH (16:17)
[2024-07-14] MEDS: [UNRECOGNIZED DRUG - OTHER] IV SCH (16:17)
[2024-07-14] MEDS: CLINOLIPID 20% IV FAT EMULSION 250 ML IV SCH (16:27)
[2024-07-15 06:10] LABS: BUN Creatinine Ratio 76.7 (10-20); Calcium 8.8 mg/dl (8.6-10.3); Creatinine Clr Calc Pharmacy 46.8 ml/min; Magnesium 2.2 mg/dl (1.7-2.4); Phosphorus 3.9 mg/dl (2.5-4.9); Potassium 3.3 mmol/L (3.5-5.1)
--- NOTE | 2024-07-15 07:57 | Hospitalist Progress Note ---
Date of Service July 15, 2024 Assessment & Plan (1) Acute kidney injury superimposed on CKD: (2) Elevated lactic acid level: (3) Acute hyponatremia: (4) Adenocarcinoma of gallbladder: (5) History of DVT (deep vein thrombosis): (6) Anxiety: Plan Ms. 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 Patient was also noted to have bowel obstruction 2 days after presentation. This bowel obstruction was management conservatively. Surgery signed off--stating that surgical intervention will only be pursued in an emergent situation. GI evaluated patient and spoke to Dr Morris for possible stent placement. The concern of eroding tumor may be contributing to occult anemia. From 06/17 to 06/18, patient with more alertness and ability to participate in exam. Attempting to eat more as able. Noted that liver enzymes are uptrending and given vague discomfort will order KUB to start to assess obstruction and will consider repeat CT ABD/P contingent on trend of LFTS. On 06/19, it was expressed to that patients medical condition is tenuous. That regardless of "where" she discharges it is hard to say when the recurrence of symptoms may come and if/when she may come back. Expressed need for prompt Onc follow up to establish plan. From 06/21 to 06/27, patient developed recurrence of abdominal pain, CT abdomen and pelvis revealing small bowel obstruction with mesenteric hernia, and large bowel obstruction in the hepatic flexure, secondary to tethered gallbladder mass. This was managed with conservative measures and small bowel follow through confirmed resolution. However, patient with marked lethargy and fluctuating delirium. patient remains on PPN due to poor po intake. Prior attending's d/w Dr. Christie--requested encounter with family to discuss treatment options given complicated and prolonged course in hospital. Patient's states Dr. Christie spoke with him and his daughter on 06/28--stating something to the effect that "she has to get through this to get to the clinic." On 07/01, kruse exchanged and patient received 1 U PRBC. Heparin and eliquis held. Patient high risk for DVTs iso malignant and hx there of. Vascular to discuss appropriateness of IVC filter especially given question of possible surgery. Given no active clots, IVC filter deferred. Doppler pursued on 07/03 which was negative for DVT. Resumed SCD/rob stockings in interim Concern for looming reobstruction, will start management for malignant bowel obstruction. After thoughtful conversation with Palliative and , patient completed 5 day course of IV dexamethasone. Discussed case with Dr Montenegro over the phone who will discuss possible diverting ileostomy with Dr. Garcia. Patient is a high risk, however, this procedure could provide bridge for home. On day prior to possible surgery on 07/10, patient wished to cancel procedure. Plan now is to continue TPN, continue CLD as tolerated. No plans to advance PO diet given concern for reobstruction and prolonging admission/complications and given patient goal to discharge and pursue therapy, will attempt to bridge to rehab and see if patient can establish with Heme/Onc. Patient motivated for therapy. 07/14, peer to peer conversation was had with [facility] who felt patient did not qualify for acute rehab. Long discussion had with family and patient. Patient wishes to trial full liquids. Long conversation about the likelihood she will have a recurrent bowel obstruction is high if not inevitable. Family/patient wishes to trial in hopes t hat patient can "intake enough nutrients to go home" Discussed this is unlikely given degree of mechanical obstruction. Will order bowel regimen to keep bowels soft in this effort. #Generalized weakness #Hyponatremiaresolved #Hypernatremia continue PPN and trend BMP Reduced sodium load in ppn and D5W temporarily to correct sodium of 150 and prevent encephalopathy 2/2 dehydration #Malignant Bowel Obstruction #Small bowel Obstruction #Large Bowel Obstruction Recurrent bowel obstructions, managed conservatively. CT abdomen and pelvis revealing small bowel obstruction with mesenteric hernia, and large bowel obstruction in the hepatic flexure, secondary to tethered gallbladder mass. General surgery consulted, appreciate recs: no surgical intervention GI: no further stenting; conservative management Palliative evaled given need for optimizing symptomatic control v transitioning to Go, difficult to broach conversation. Completed course Dexamethsone for MBO, s/p IV 6mg qd for 5 days (5/) PPN started, continue. Poor intake, home megace was dc'd after d/w pt and her family given increased risk of blood clot. they agreed for remeron which has been started. On clears since 07/04, pt denies N, V, abd pain. Reports moving gas. Gen Sx had plan for diverting ostomy on 07/10, Pt and her family decided against surgery on 07/09 evening. Continue PPN and continue CLD, will hold on advancement given mechanical obstruction iso malignancy -Family/patient adamant to advance diet to full liquids to increase PO nutrients. Discussion was had that there is concern for recurrent obstruction -Trial of full liquid with miralax scheduled to keep bowels soft Encourage OOB #RLE edema resolved #Recent DVT BLE 03/2024: Acute deep venous thrombosis in the bilateral lower extremity in the segments as noted above. 07/03/2024: no DVT RESUME SCDs/Rob stockings Heparin on hold due to concern occult bleeding from tumor Pt and her aware of the increased risk of blood clot if not being on blood thinner lobito given her cancer status but given anemia (likely 2/2 eroding tumor) which could be exacerbated by blood thinner, they are ok w/ holding blood thinner. Holding DVT ppx at this time #Complicated UTI: noted 07/07, Urine Cx contaminate. c/w cefepime 07/07.completed 5 days abx 07/12 #Acute on chronic Anemia *stable s/p 3 unit PRBC (06/12, 06/23, 07/01) so far, home eliquis on hold. FOBT positive Anemia multifactorial, major part played likely by eroding tumor contributing to occult anemia. Monitor HnH, transfuse for Hb < 7. Continue Protonix IV twice daily Holding Eliquis for down trending Hgb Prior attending discussed IVC filter placement with Vascular: given no active DVT, no indication for IVC Heparin on hold given recurrent need for blood transfusion, teds/scds for now Remains stable for now #Acute toxic metabolic encephalopathy *fluctuating/stable likely multifactorial--chronic leukoencephalopathy, delirium 2/2 chronic illness, malnutrition patient again developed progressive lethargy over the weekend Extensive workup including CT head, VBG, ammonia, TSH, cortisol, and infectious workup repeated-all unrevealing Neurology service reconsulted, does not recommend any other testing at this point avoid benzos/sedatives Encourage delirium precautions and sleep hygiene Continue to monitor closely #Transaminitis stable #Adenocarcinoma of gallbladder Last FOLFOX treatment 05/[address] Gross; transitioned to Dr. Christie Continue Megace 06/08- patient's family requested 5FU reversal, but not warranted at this time per Oncology As above GI consult for further recs per General Surgery. Family hopeful for a "treatment" and ways to get patient "out and to the clinic" -Discussing that this is complicated 2/2 to recurrent obstruction Manage conservatively as above #Chemotherapy induced Neutropenia *resolved #Lactic acidosis iso obstruction/dehydration sepsis ruled out Pt with progressing neutropenia, in the setting of recent chemotherapy Lactate initially 4.4 on admission ->normalized to 2.0 with fluids Chest XRAY with no acute infection UA unremarkable, respiratory testing negative, MRSA nares negative Blood Cx x1 set NGTD. 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 #H/o DVT Eliquis held for SBO, possible emergency procedures held heparin sq; vascular to discuss case: no indication of IVC at this time #HTN (hypertension) Continue atenolol #History of breast cancer S/p left partial mastectomy, XRT, 5 years of tamoxifen completed in August 2022 #Restless legs syndrome (RLS) Clonazepam HS PRN #Acute respiratory alkalosis secondary metabolic alkalosis resolved #Diarrhea improved Resolved at this time Diet: full liquid, PPN DVT Ppx: Eliquis held, sq Heparin on hold; SCDs/ rob stockings Code status: FULL PCP: [facility] Dispo: pending,need for SNF placement pending Admission and Anticipated Discharge Date Admission Date: June 06, 2024 Subjective Patient reports not eating/drinking that much compared to day prior denies nausea or vomiting, states she is still passing gas Family requesting trial of full liquids--encouraged that the likelihood of obstruction will return Patient wants to trial and see if she can get off of TPN Physical Exam Constitutional: ill and weak appearing woman Respiratory: normal respiratory effort, lungs clear to auscultation Cardiovascular: tachycardic Gastrointestinal (Abdomen): firm abdomen though nontender BS+ Results & Data Results & Data Vital Signs (Past 12 Hours) Vital Signs Temp Pulse Resp BP Pulse Ox O2 Del Method 07/14/24 20:43 36.5 C 119 H 18 107/86 96 Room Air Laboratory Results [facility] 07/15/24 05:27 Sodium 150 H Potassium 3.3 L Chloride 111 H Carbon Dioxide 27 BUN 79 H Creatinine 1.03 Glucose 186 H Calcium 8.8 Medications Administered Home Medications Medication Instructions Recorded Confirmed Last Taken calcium 600 mg (as 1 cap PO DAILY 04/08/22 06/06/24 Unknown carbonate)-vitamin D3 12.5 mcg (500 unit) capsule (Calcium with Vit D3) atenolol 25 mg tablet 12.5 mg PO DAILY 12/03/22 06/06/24 Unknown clonazepam 0.5 mg tablet 0.5 mg PO HS PRN anxiety or sleep 12/03/22 06/06/24 Unknown magnesium 200 mg tablet 400 mg PO 2XD 06/29/23 06/06/24 Unknown apixaban 5 mg tablet (Eliquis) 5 mg PO BID 06/06/24 06/06/24 Unknown megestrol 625 mg/5 mL (125 mg/mL) 2 ml PO DAILY 06/06/24 06/06/24 Unknown oral suspension prochlorperazine maleate 10 mg 10 mg PO Q6H PRN Nausea 06/06/24 06/06/24 Unknown tablet Active Medications Generic Name Dose Route Start Last Admin Trade Name Bacilioq PRN Reason Stop Dose Admin Pantoprazole Sodium 40 mg/ 10 mls @ 5 mls/min 06/21/24 21:00 07/15/24 07:29 Syringe IV 07/21/24 20:59 5 mls/min BID JOSEPH Administration Amino Acids/Dextrose 1,105.2 1,105.2 mls @ 46 mls/hr 07/14/24 16:00 07/14/24 16:17 ml/ Nutrition (Parenteral) IV 07/15/24 15:59 46 mls/hr .Q24H JOSEPH Administration Protocol Insulin Aspart 0 units 07/04/24 16:30 07/14/24 20:33 Insulin Aspart Per Unit Charge SC 07/30/24 00:00 1 units ACHS JOSEPH Administration Lactobacillus Acidophilus 1,250 mg 07/08/24 16:45 07/15/24 07:29 Advanced Probiotic 625 Mg Capsule PO 08/07/24 16:44 Not Given DAILY JOSEPH Mirtazapine 7.5 mg 07/07/24 21:00 07/14/24 20:33 Mirtazapine Soltab 15 Mg PO 08/06/24 20:59 7.5 mg HS JOSEPH Administration
[2024-07-15] MEDS: POTASSIUM CHLORIDE 20 MEQ/15 ML UDC PO SCH (08:33)
[2024-07-15] MEDS: DEXTROSE 5% 1,000 ML IV SCH (09:21)
[2024-07-15] MEDS ORDERED: DEXTROSE 50% 50 ML SYRINGE IV PRN (09:23)
[2024-07-15] MEDS ORDERED: GLUCOSE 40% GEL 15 GM TUBE PO PRN (09:23)
[2024-07-15] MEDS ORDERED: GLUCOSE 10 TAB/TUBE PO PRN (09:23)
[2024-07-15] MEDS ORDERED: GLUCAGON FOR INJ 1 MG VIAL SQ PRN (09:23)
[2024-07-15] MEDS ORDERED: CARBOHYDRATES FOR HYPOGLYCEMIA PO PRN (09:23)
[2024-07-15] MEDS ORDERED: INSULIN ASPART PER UNIT CHARGE SC SCH (11:30)
[2024-07-15] MEDS: POLYETHYLENE (MIRALAX) 17 GM PACK PO SCH (13:56)
[2024-07-15] MEDS: CENTRAL TPN IV SCH (15:49)
[2024-07-15] MEDS: [UNRECOGNIZED DRUG - OTHER] IV SCH (15:49)
[2024-07-15] MEDS: CLINOLIPID 20% IV FAT EMULSION 250 ML IV SCH (15:50)
[2024-07-15 21:37] LABS: Base Excess VBG 9.8 mEq/L; HCO3 VBG 32 mmol/L; Oxygen Saturation VBG 82.2 %; PCO2 VBG 33 mmHg (38-50); PO2 VBG 48 mmHg; pH VBG 7.59 (7.36-7.41)
[2024-07-16 06:02] LABS: Hematocrit (blood only) 33.2 % (37.0-47.0); Hemoglobin 10.1 g/dl (12.0-16.0); Mean Corpuscular Hemoglobin 29.6 pg (25.0-34.0); Mean Corpuscular Hgb Conc 30.4 g/dL (32.0-36.0); Mean Corpuscular Volume 97.4 fL (80.0-100.0); Mean Platelet Volume 10.7 fL (9.4-12.4); Nucleated RBC # (auto) 0.06 K/uL (0.00-0.12); Nucleated RBC % (auto) 0.4 %; Platelet Count 198 K/uL (130-400); RDW Coefficient of Variation 17.4 % (11.5-14.5); RDW Standard Deviation 61.9 fL (36.4-46.3); Red Blood Count 3.41 M/uL (4.20-5.40); White Blood Count 14.95 K/ul (4.8-10.8)
[2024-07-16 06:18] LABS: Albumin Globulin Ratio 0.7 (0.9-2); Albumin Level 2.8 gm/dl (3.4-5.0); BUN Creatinine Ratio 72.1 (10-20); Bilirubin,Total 0.8 mg/dl (0.2-1.0); Calcium 8.5 mg/dl (8.6-10.3); Creatinine Clr Calc Pharmacy 37.3 ml/min; Globulin 3.9 gm/dl (2.5-4.0); Magnesium 2.1 mg/dl (1.7-2.4); Phosphorus 3.8 mg/dl (2.5-4.9); Potassium 3.6 mmol/L (3.5-5.1); Total Protein 6.7 gm/dl (6.0-8.3)
--- NOTE | 2024-07-16 08:13 | XRay Report ---
XR chest 1V portable HISTORY: 74 years-old Female tachyapnea acute chest pain with tachycardia COMPARISON: 06/06/2024 TECHNIQUE: AP view of the chest FINDINGS: Cardiac silhouette is mildly enlarged. Right IJ catheter is unchanged. No pneumothorax or large pleur al effusion. Mild bibasilar opacities. Surgical clips project over the left breast. Bones appear morales sly intact. No overt pulmonary edema. IMPRESSION: Mild subsegmental bibasilar densities favor atelectasis. A mild pneumonitis considered le ss likely. ACT 112: Negative or not required by law. The above report was generated using voice recognition software. It may contain grammatical, syntax o r spelling errors. Electronically signed by: Meng Lester M.D. 07/16/2024 8:11 AM
[2024-07-16] MEDS ORDERED: DEXAMETHASONE SOD INJ 4 MG/ML VIAL IV SCH (09:45)
--- NOTE | 2024-07-16 09:47 | Hospitalist Progress Note ---
Date of Service July 16, 2024 Assessment & Plan (1) Acute kidney injury superimposed on CKD: (2) Elevated lactic acid level: (3) Acute hyponatremia: (4) Adenocarcinoma of gallbladder: (5) History of DVT (deep vein thrombosis): (6) Anxiety: Plan Ms. 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 Patient was also noted to have bowel obstruction 2 days after presentation. This bowel obstruction was management conservatively. Surgery signed off--stating that surgical intervention will only be pursued in an emergent situation. GI evaluated patient and spoke to Dr Morris for possible stent placement. The concern of eroding tumor may be contributing to occult anemia. From 06/17 to 06/18, patient with more alertness and ability to participate in exam. Attempting to eat more as able. Noted that liver enzymes are uptrending and given vague discomfort will order KUB to start to assess obstruction and will consider repeat CT ABD/P contingent on trend of LFTS. On 06/19, it was expressed to that patients medical condition is tenuous. That regardless of "where" she discharges it is hard to say when the recurrence of symptoms may come and if/when she may come back. Expressed need for prompt Onc follow up to establish plan. From 06/21 to 06/27, patient developed recurrence of abdominal pain, CT abdomen and pelvis revealing small bowel obstruction with mesenteric hernia, and large bowel obstruction in the hepatic flexure, secondary to tethered gallbladder mass. This was managed with conservative measures and small bowel follow through confirmed resolution. However, patient with marked lethargy and fluctuating delirium. patient remains on PPN due to poor po intake. Prior attending's d/w Dr. Christie--requested encounter with family to discuss treatment options given complicated and prolonged course in hospital. Patient's states Dr. Christie spoke with him and his daughter on 06/28--stating something to the effect that "she has to get through this to get to the clinic." On 07/01, kruse exchanged and patient received 1 U PRBC. Heparin and eliquis held. Patient high risk for DVTs iso malignant and hx there of. Vascular to discuss appropriateness of IVC filter especially given question of possible surgery. Given no active clots, IVC filter deferred. Doppler pursued on 07/03 which was negative for DVT. Resumed SCD/rob stockings in interim Concern for looming reobstruction, will start management for malignant bowel obstruction. After thoughtful conversation with Palliative and , patient completed 5 day course of IV dexamethasone. Discussed case with Dr Montenegro over the phone who will discuss possible diverting ileostomy with Dr. Garcia. Patient is a high risk, however, this procedure could provide bridge for home. On day prior to possible surgery on 07/10, patient wished to cancel procedure. Plan now is to continue TPN, continue CLD as tolerated. No plans to advance PO diet given concern for reobstruction and prolonging admission/complications and given patient goal to discharge and pursue therapy, will attempt to bridge to rehab and see if patient can establish with Heme/Onc. Patient motivated for therapy. 07/14, peer to peer conversation was had with [facility] who felt patient did not qualify for acute rehab. Long discussion had with family and patient. Patient wishes to trial full liquids. Long conversation about the likelihood she will have a recurrent bowel obstruction is high if not inevitable. Family/patient wishes to trial in hopes t hat patient can "intake enough nutrients to go home" Discussed this is unlikely given degree of mechanical obstruction. On 07/16, patient with recurrent bowel obtruction. Raised question of hospice to who is seemingly open to the idea, but did not wish to talk in more detail at time of exam. Will trial decradron for MBO once more #Generalized weakness #Hyponatremiaresolved #Hypernatremia continue PPN and trend BMP Reduced sodium load in ppn and D5W temporarily to correct sodium of 150 and prevent encephalopathy 2/2 dehydration pharmacy adjusting PPN at this time #Malignant Bowel Obstruction #Small bowel Obstruction #Large Bowel Obstruction Recurrent bowel obstructions, managed conservatively. CT abdomen and pelvis re vealing small bowel obstruction with mesenteric hernia, and large bowel obstruction in the hepatic flexure, secondary to tethered gallbladder mass. General surgery consulted, appreciate recs: no surgical intervention GI: no further stenting; conservative management Palliative evaled given need for optimizing symptomatic control v transitioning to GoC, difficult to broach conversation. Completed course Dexamethsone for MBO, s/p IV 6mg qd for 5 days (02/05) PPN started, continue. Poor intake, home megace was dc'd after d/w pt and her family given increased risk of blood clot. they agreed for remeron which has been started. On clears since 07/04, pt denies N, V, abd pain. Reports moving gas. Gen Sx had plan for diverting ostomy on 07/10, Pt and her family decided against surgery on 07/09 evening. Continue PPN and continue CLD, will hold on advancement given mechanical obstruction iso malignancy -Family/patient adamant to advance diet to full liquids to increase PO nutrients. Discussion was had that there is concern for recurrent obstruction -Diet advancement thwarted by recurrent obstruction =Patient declines surgery -Decadron for palliative effort for MBO at this time Opening discussions of hospice, seemingly open to future discussion but declines in depth conversation at this time Conservative management once more, declines NGT #RLE edema resolved #Recent DVT BLE 03/2024: Acute deep venous thrombosis in the bilateral lower extremity in the segments as noted above. 07/03/2024: no DVT RESUME SCDs/Rob stockings Heparin on hold due to concern occult bleeding from tumor Pt and her aware of the increased risk of blood clot if not being on blood thinner lobito given her cancer status but given anemia (likely 2/2 eroding tumor) which could be exacerbated by blood thinner, they are ok w/ holding blood thinner. Holding DVT ppx at this time #Complicated UTI: noted 07/07, Urine Cx contaminate. c/w cefepime 07/07.completed 5 days abx 07/12 #Acute on chronic Anemia *stable s/p 3 unit PRBC (06/12, 06/23, 07/01) so far, home eliquis on hold. FOBT positive Anemia multifactorial, major part played likely by eroding tumor contributing to occult anemia. Monitor HnH, transfuse for Hb < 7. Continue Protonix IV twice daily Holding Eliquis for down trending Hgb Prior attending discussed IVC filter placement with Vascular: given no active DVT, no indication for IVC Heparin on hold given recurrent need for blood transfusion, teds/scds for now Remains stable for now #Acute toxic metabolic encephalopathy *fluctuating/stable likely multifactorial--chronic leukoencephalopathy, delirium 2/2 chronic illness, malnutrition patient again developed progressive lethargy over the weekend Extensive workup including CT head, VBG, ammonia, TSH, cortisol, and infectious workup repeated-all unrevealing Neurology service reconsulted, does not recommend any other testing at this point avoid benzos/sedatives Encourage delirium precautions and sleep hygiene Continue to monitor closely #Transaminitis stable #Adenocarcinoma of gallbladder Last FOLFOX treatment 05/[address] Gross; transitioned to Dr. Christie Continue Megace 06/08- patient's family requested 5FU reversal, but not warranted at this time per Oncology As above GI consult for further recs per General Surgery. Family hopeful for a "treatment" and ways to get patient "out and to the clinic" -Discussing that this is complicated 2/2 to recurrent obstruction Manage conservatively as above #Chemotherapy induced Neutropenia *resolved #Lactic acidosis iso obstruction/dehydration sepsis ruled out Pt with progressing neutropenia, in the setting of recent chemotherapy Lactate initially 4.4 on admission ->normalized to 2.0 with fluids Chest XRAY with no acute infection UA unremarkable, respiratory testing negative, MRSA nares negative Blood Cx x1 set NGTD. 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 on going #H/o DVT Eliquis held for SBO, possible emergency procedures held heparin sq; vascular to discuss case: no indication of IVC at this time #HTN (hypertension) Continue atenolol #History of breast cancer S/p left partial mastectomy, XRT, 5 years of tamoxifen completed in August 2022 #Restless legs syndrome (RLS) Clonazepam HS PRN #Acute respiratory alkalosis secondary metabolic alkalosis resolved #Diarrhea improved Resolved at this time Diet: full liquid, PPN DVT Ppx: Eliquis held, sq Heparin on hold; SCDs/ rob stockings Code status: FULL PCP: [facility] Dispo: pending,need for SNF placement pending Admission and Anticipated Discharge Date Admission Date: June 06, 2024 Subjective Weak and lethargic in appearance, noted change from day prior denies pain, but notable change in breathing pattern poor intake day prior and no intake today abdomen notably distended Patient nods no to any surgery when asked Physical Exam Constitutional: weak, lethargic chronically ill, less alert Respiratory: intermittent resp/apena, no wheezing, rhonchi, almost similar to daniel-yo respirations Gastrointestinal (Abdomen): abdomen distended, high pitched bowel sounds, able to palpate borders/margins of bowel Results & Data Results & Data Vital Signs (Past 12 Hours) Vital Signs Temp Pulse Resp BP Pulse Ox O2 Del Method 07/16/24 08:00 36.6 C 120 H 20 107/75 94 Room Air Laboratory Results Short CBC 07/16/24 Range/Units 05:31 WBC 14.95 H (4.8-10.8) K/ul Hgb 10.1 L (12.0-16.0) g/dl Hct 33.2 L (37.0-47.0) % Plt Count 198 (130-400) K/uL BMP 07/16/24 05:31 Sodium 149 H Potassium 3.6 Chloride 110 H Carbon Dioxide 29 BUN 93 H Creatinine 1.29 H Glucose 185 H Calcium 8.5 L Liver Function 07/16/24 Range/Units 05:31 Total Bilirubin 0.8 (0.2-1.0) mg/dl AST 35 (13-39) U/L ALT 71 H (7-52) U/L Alkaline Phosphatase 380 H (34-104) U/L Albumin 2.8 L (3.4-5.0) gm/dl Medications Administered Home Medications Medication Instructions Recorded Confirmed Last Taken calcium 600 mg (as 1 cap PO DAILY 04/08/22 06/06/24 Unknown carbonate)-vitamin D3 12.5 mcg (500 unit) capsule (Calcium with Vit D3) atenolol 25 mg tablet 12.5 mg PO DAILY 12/03/22 06/06/24 Unknown clonazepam 0.5 mg tablet 0.5 mg PO HS PRN anxiety or sleep 12/03/22 06/06/24 Unknown magnesium 200 mg tablet 400 mg PO 2XD 06/29/23 06/06/24 Unknown apixaban 5 mg tablet (Eliquis) 5 mg PO BID 06/06/24 06/06/24 Unknown megestrol 625 mg/5 mL (125 mg/mL) 2 ml PO DAILY 06/06/24 06/06/24 Unknown oral suspension prochlorperazine maleate 10 mg 10 mg PO Q6H PRN Nausea 06/06/24 06/06/24 Unknown tablet Active Medications Generic Name Dose Route Start Last Admin Trade Name Boaz PRN Reason Stop Dose Admin Pantoprazole Sodium 40 mg/ 10 mls @ 5 mls/min 06/21/24 21:00 07/16/24 09:33 Syringe IV 07/21/24 20:59 5 mls/min BID JOSEPH Administration Amino Acids/Dextrose 1,081 ml/ 1,081 mls @ 45 mls/hr 07/15/24 16:00 07/15/24 15:49 Nutrition (Parenteral) IV 07/16/24 15:59 45 mls/hr .Q24H JOSEPH Administration Protocol Insulin Aspart 0 units 07/04/24 16:30 07/16/24 09:39 Insulin Aspart Per Unit Charge SC 07/30/24 00:00 3 units ACHS JOSEPH Administration Lactobacillus Acidophilus 1,250 mg 07/08/24 16:45 07/16/24 09:30 Advanced Probiotic 625 Mg Capsule PO 08/07/24 16:44 Not Given DAILY JOSEPH Mirtazapine 7.5 mg 07/07/24 21:00 07/15/24 20:28 Mirtazapine Soltab 15 Mg PO 08/06/24 20:59 7.5 mg HS JOSEPH Administration Polyethylene Glycol 17 gm 07/15/24 14:00 07/16/24 09:32 Polyethylene (Miralax) 17 Gm Pack PO 08/14/24 13:59 Not Given TID JOSEPH Potassium Chloride 40 meq 07/15/24 09:00 07/16/24 09:32 Potassium Chloride 20 Meq/15 Ml Udc PO 08/14/24 08:59 Not Given BID JOSEPH
[2024-07-16] MEDS: LANTUS PER UNIT CHARGE SC SCH (10:06)
[2024-07-16] MEDS: dexAMETHasone 10 MG in SYRINGE 0 ML IV SCH (10:07)
[2024-07-16] MEDS: AA 8%/D14W 1L 1,071 ML in Central TPN bag 0 ML IV SCH (16:05)
[2024-07-16] MEDS: CLINOLIPID 20% IV FAT EMULSION 250 ML IV SCH (16:09)
[2024-07-16] MEDS: D5W AND 1/2NSS 1,000 ML IV SCH (23:18)
[2024-07-16] MEDS: METOPROLOL TARTRATE 25 MG TAB PO STA (23:24)
[2024-07-17] MEDS: METOPROLOL TARTRATE 25 MG TAB PO STA (01:08)
[2024-07-17 03:54] LABS: Hematocrit (blood only) 34.8 % (37.0-47.0); Hemoglobin 10.8 g/dl (12.0-16.0); Mean Corpuscular Hemoglobin 29.7 pg (25.0-34.0); Mean Corpuscular Volume 95.6 fL (80.0-100.0); Mean Platelet Volume 11.1 fL (9.4-12.4); Nucleated RBC # (auto) 0.11 K/uL (0.00-0.12); Nucleated RBC % (auto) 0.6 %; Platelet Count 215 K/uL (130-400); RDW Coefficient of Variation 17.3 % (11.5-14.5); RDW Standard Deviation 60.4 fL (36.4-46.3); Red Blood Count 3.64 M/uL (4.20-5.40); White Blood Count 17.25 K/ul (4.8-10.8)
[2024-07-17 04:08] LABS: Albumin Level 2.9 gm/dl (3.4-5.0); BUN Creatinine Ratio 72.4 (10-20); Bilirubin Direct 0.3 mg/dl (0-0.2); Bilirubin,Total 0.7 mg/dl (0.2-1.0); Calcium 8.4 mg/dl (8.6-10.3); Creatinine Clr Calc Pharmacy 28.3 ml/min; Magnesium 2.2 mg/dl (1.7-2.4); Phosphorus 4.8 mg/dl (2.5-4.9); Potassium 4.3 mmol/L (3.5-5.1); Total Protein 7.3 gm/dl (6.0-8.3)
[2024-07-17 04:12] VITALS: O2SAT 97
[2024-07-17 04:14] LABS: Troponin I High Sensitivity 62.3 pg/ml (0-14)
[2024-07-17 04:16] LABS: Basophils # (auto) 0.11 K/uL (0.00-0.20); Basophils % (auto) 0.6 %; Eosinophils # (auto) 0.01 K/uL (0.00-0.50); Eosinophils % (auto) 0.1 %; Immature Granulocytes # (auto) 1.07 K/uL (0.01-0.20); Immature Granulocytes % (auto) 6.2 %; Lymphocytes # (auto) 3.68 K/uL (1.20-3.40); Lymphocytes % (auto) 21.3 %; Monocytes # (auto) 1.05 K/uL (0.11-0.59); Monocytes % (auto) 6.1 %; Neutrophils # (auto) 11.33 K/uL (1.40-6.50); Neutrophils % (auto) 65.7 %; Polychromasia 1+
[2024-07-17 07:19] VITALS: BP 121/85; RESP 28; TEMP 97.5
--- NOTE | 2024-07-17 08:33 | Electrocardiogram Report ---
Test Reason : Blood Pressure : */* mmHG Vent. Rate : 120 BPM Atrial Rate : 120 BPM P-R Int : 136 ms QRS Dur : 80 ms QT Int : 334 ms P-R-T Axes : 67 -15 76 degrees QTcB Int : 472 ms Sinus tachycardia Possible Old Inferior infarct Abnormal ECG When compared with ECG of 06-Jun-2024 16:03, Borderline Criteria for Inferior infarct now present Confirmed by Yoel Pruett ([id number]) on 07/17/2024 8:33:29 AM Referred By: Hardik Gross Confirmed By: Yoel Pruett
[2024-07-17] MEDS ORDERED: GLYCOPYRROLATE 0.2 MG/ML VIAL IV PRN (08:47)
[2024-07-17] MEDS ORDERED: MoRPHine SULFATE 10 MG/0.5 ML UDP PO PRN (08:47)
[2024-07-17] MEDS ORDERED: HYOSCYAMINE SULFATE 0.125 MG TAB SL PRN (08:47)
[2024-07-17] MEDS ORDERED: ONDANSETRON INJ 2 MG/ML 2 ML VIAL IV PRN (08:47)
[2024-07-17] MEDS ORDERED: LORazepam 2 MG/1 ML VIAL IV PRN (08:47)
--- NOTE | 2024-07-17 09:15 | Hospitalist Progress Note ---
Date of Service July 17, 2024 Assessment & Plan (1) Acute kidney injury superimposed on CKD: (2) Elevated lactic acid level: (3) Acute hyponatremia: (4) Adenocarcinoma of gallbladder: (5) History of DVT (deep vein thrombosis): (6) Anxiety: Plan Ms. 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 Patient was also noted to have bowel obstruction 2 days after presentation. This bowel obstruction was management conservatively. Surgery signed off--stating that surgical intervention will only be pursued in an emergent situation. GI evaluated patient and spoke to Dr Morris for possible stent placement. The concern of eroding tumor may be contributing to occult anemia. From 06/17 to 06/18, patient with more alertness and ability to participate in exam. Attempting to eat more as able. Noted that liver enzymes are uptrending and given vague discomfort will order KUB to start to assess obstruction and will consider repeat CT ABD/P contingent on trend of LFTS. On 06/19, it was expressed to that patients medical condition is tenuous. That regardless of "where" she discharges it is hard to say when the recurrence of symptoms may come and if/when she may come back. Expressed need for prompt Onc follow up to establish plan. From 06/21 to 06/27, patient developed recurrence of abdominal pain, CT abdomen and pelvis revealing small bowel obstruction with mesenteric hernia, and large bowel obstruction in the hepatic flexure, secondary to tethered gallbladder mass. This was managed with conservative measures and small bowel follow through confirmed resolution. However, patient with marked lethargy and fluctuating delirium. patient remains on PPN due to poor po intake. Prior attending's d/w Dr. Christie--requested encounter with family to discuss treatment options given complicated and prolonged course in hospital. Patient's states Dr. Christie spoke with him and his daughter on 06/28--stating something to the effect that "she has to get through this to get to the clinic." On 07/01, kruse exchanged and patient received 1 U PRBC. Heparin and eliquis held. Patient high risk for DVTs iso malignant and hx there of. Vascular to discuss appropriateness of IVC filter especially given question of possible surgery. Given no active clots, IVC filter deferred. Doppler pursued on 07/03 which was negative for DVT. Resumed SCD/rob stockings in interim Concern for looming reobstruction, will start management for malignant bowel obstruction. After thoughtful conversation with Palliative and , patient completed 5 day course of IV dexamethasone. Discussed case with Dr Montenegro over the phone who will discuss possible diverting ileostomy with Dr. Garcia. Patient is a high risk, however, this procedure could provide bridge for home. On day prior to possible surgery on 07/10, patient wished to cancel procedure. 07/14, peer to peer conversation was had with [facility] who felt patient did not qualify for acute rehab. Long discussion had with family and patient. Patient wishes to trial full liquids. Long conversation about the likelihood she will have a recurrent bowel obstruction is high if not inevitable. Family/patient wishes to trial in hopes that patient can "intake enough nutrients to go home" Discussed this is unlikely given degree of mechanical obstruction. On 07/16, patient with recurrent bowel obstruction. Raised question of hospice to who is seemingly open to the idea, but did not wish to talk in more detail at time of exam. trialed decradron for MBO once more On 07/17, over 60min spent at bedside talking with . Discussed that patient would not want surgery or NGT. Discussed there are no options outside of comfort for here--he agreed. 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 CT abdomen and pelvis revealing small bowel obstruction with mesenteric hernia, and large bowel obstruction in the hepatic flexure, secondary to tethered gallbladder mass. General surgery consulted, appreciate recs: no surgical intervention GI: no further stenting; conservative management Palliative evaled given need for optimizing symptomatic control v transitioning to GoC, difficult to broach conversation. Completed course Dexamethsone for MBO, s/p IV 6mg qd for 5 days (02/05) PPN started, continue. Poor intake, home megace was dc'd after d/w pt and her family given increased risk of blood clot. they agreed for remeron which has been started. On clears since 07/04, pt denies N, V, abd pain. Reports moving gas. Gen Sx had plan for diverting ostomy on 07/10, Pt and her family decided against surgery on 07/09 evening. Continue PPN and continue CLD, will hold on advancement given mechanical obstruction iso malignancy -Family/patient adamant to advance diet to full liquids to increase PO nutrients. Discussion was had that there is concern for recurrent obstruction -Diet advancement thwarted by recurrent obstruction =Patient declines surgery -Decadron for palliative effort for MBO at this time Opening discussions of hospice, seemingly open to future discussion but declines in depth conversation at this time Conservative management once more, declines NGT #RLE edema resolved #Recent DVT BLE 03/2024: Acute deep venous thrombosis in the bilateral lower extremity in the segments as noted above. 07/03/2024: no DVT RESUME SCDs/Rob stockings Heparin on hold due to concern occult bleeding from tumor Pt and her aware of the increased risk of blood clot if not being on blood thinner lobito given her cancer status but given anemia (likely 2/2 eroding tumor) which could be exacerbated by blood thinner, they are ok w/ holding blood thinner. Holding DVT ppx at this time #Complicated UTI: noted 07/07, Urine Cx contaminate. c/w cefepime 07/07.completed 5 days abx 07/12 #Acute on chronic Anemia *stable s/p 3 unit PRBC (06/12, 06/23, 07/01) so far, home eliquis on hold. FOBT positive Anemia multifactorial, major part played likely by eroding tumor contributing to occult anemia. Monitor HnH, transfuse for Hb < 7. Continue Protonix IV twice daily Holding Eliquis for down trending Hgb Prior attending discussed IVC filter placement with Vascular: given no active DVT, no indication for IVC Heparin on hold given recurrent need for blood transfusion, teds/scds for now Remained stable #Acute toxic metabolic encephalopathy *fluctuating/stable likely multifactorial--chronic leukoencephalopathy, delirium 2/2 chronic illness, malnutrition patient again developed progressive lethargy over the weekend Extensive workup including CT head, VBG, ammonia, TSH, cortisol, and infectious workup repeated-all unrevealing Neurology service reconsulted, does not recommend any other testing at this point avoid benzos/sedatives Encourage delirium precautions and sleep hygiene #Transaminitis stable #Adenocarcinoma of gallbladder Last FOLFOX treatment 05/[address] Gross; transitioned to Dr. Christie Continue Megace 06/08- patient's family requested 5FU reversal, but not warranted at this time per Oncology As above GI consult for further recs per General Surgery. Family hopeful for a "treatment" and ways to get patient "out and to the clinic" -Discussing that this is complicated 2/2 to recurrent obstruction Manage conservatively as above #Chemotherapy induced Neutropenia *resolved #Lactic acidosis iso obstruction/dehydration sepsis ruled out Pt with progressing neutropenia, in the setting of recent chemotherapy Lactate initially 4.4 on admission ->normalized to 2.0 with fluids Chest XRAY with no acute infection UA unremarkable, respiratory testing negative, MRSA nares negative Blood Cx x1 set NGTD. 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 PPN discontinued #H/o DVT Eliquis held for SBO, possible emergency procedures held heparin sq; vascular to discuss case: no indication of IVC at this time #HTN (hypertension) Continue atenolol #History of breast cancer S/p left partial mastectomy, XRT, 5 years of tamoxifen completed in August 2022 #Restless legs syndrome (RLS) Clonazepam HS PRN #Acute respiratory alkalosis secondary metabolic alkalosis resolved #Diarrhea improved Resolved at this time Diet: comfort DVT Ppx: Eliquis held, sq Heparin on hold; SCDs/ rob stockings Code status: DNJORGENI PCP: Loreta Dispo: pending hospice Admission and Anticipated Discharge Date Admission Date: June 06, 2024 Subjective Patient tachypneic, opens eyes to name, but does not follow commands, slumping to right side Discussed with ---would SHE want an NGT? he reported no. would SHE want surgery? he reported no Plan to make comfortable Physical Exam Constitutional: awake, not oriented, notably ill Cardiovascular: tachycardic Gastrointestinal (Abdomen): firm distended Results & Data Results & Data Vital Signs (Past 12 Hours) Vital Signs Temp Pulse Resp BP Pulse Ox O2 Del Method 07/17/24 07:17 36.4 C L 124 H 28 H 121/85 97 Room Air 07/17/24 04:11 117 H 20 100/71 97 Room Air 07/17/24 02:16 120 H 24 112/88 96 Room Air 07/17/24 00:21 121 H 20 104/75 97 Room Air Laboratory Results Short CBC 07/17/24 Range/Units 03:23 WBC 17.25 H (4.8-10.8) K/ul Hgb 10.8 L (12.0-16.0) g/dl Hct 34.8 L (37.0-47.0) % Plt Count 215 (130-400) K/uL [facility] 07/17/24 03:23 Sodium 146 H Potassium 4.3 Chloride 109 H Carbon Dioxide 23 BUN 123 H D Creatinine 1.70 H D Glucose 211 H Calcium 8.4 L Liver Function 07/17/24 Range/Units 03:23 Total Bilirubin 0.7 (0.2-1.0) mg/dl Direct Bilirubin 0.3 H (0-0.2) mg/dl AST 29 (13-39) U/L ALT 64 H (7-52) U/L Alkaline Phosphatase 362 H (34-104) U/L Albumin 2.9 L (3.4-5.0) gm/dl Medications Administered Home Medications Medication Instructions Recorded Confirmed Last Taken calcium 600 mg (as 1 cap PO DAILY 04/08/22 06/06/24 Unknown carbonate)-vitamin D3 12.5 mcg (500 unit) capsule (Calcium with Vit D3) atenolol 25 mg tablet 12.5 mg PO DAILY 12/03/22 06/06/24 Unknown clonazepam 0.5 mg tablet 0.5 mg PO HS PRN anxiety or sleep 12/03/22 06/06/24 Unknown magnesium 200 mg tablet 400 mg PO 2XD 06/29/23 06/06/24 Unknown apixaban 5 mg tablet (Eliquis) 5 mg PO BID 06/06/24 06/06/24 Unknown megestrol 625 mg/5 mL (125 mg/mL) 2 ml PO DAILY 06/06/24 06/06/24 Unknown oral suspension prochlorperazine maleate 10 mg 10 mg PO Q6H PRN Nausea 06/06/24 06/06/24 Unknown tablet Active Medications Generic Name Dose Route Start Last Admin Trade Name Freanisa PRN Reason Stop Dose Admin Dexamethasone 10 mg/ Syringe 2.5 mls @ 1 mls/min 07/16/24 10:00 07/16/24 10:07 IV 07/20/24 09:03 1 mls/min DAILY JOSEPH Administration Lactobacillus Acidophilus 1,250 mg 07/08/24 16:45 07/16/24 09:30 Advanced Probiotic 625 Mg Capsule PO 08/07/24 16:44 Not Given DAILY JOSEPH Mirtazapine 7.5 mg 07/07/24 21:00 07/15/24 20:28 Mirtazapine Soltab 15 Mg PO 08/06/24 20:59 7.5 mg HS JOSEPH Administration Polyethylene Glycol 17 gm 07/15/24 14:00 07/16/24 09:32 Polyethylene (Miralax) 17 Gm Pack PO 08/14/24 13:59 Not Given TID JOSEPH Potassium Chloride 40 meq 07/15/24 09:00 07/16/24 09:32 Potassium Chloride 20 Meq/15 Ml Udc PO 08/14/24 08:59 Not Given BID JOSEPH
[2024-07-17] MEDS: MoRPHine SULFATE 2 MG/ML CARP IV PRN (09:38)
[2024-07-17] MEDS: HEPARIN 100 UNIT/ML 5ML FLUSH FLUSH PRN (10:01)
[2024-07-17] MEDS: HEPARIN 100 UNIT/ML 5ML FLUSH ONE (11:48)
--- NOTE | 2024-07-17 14:16 | Discharge Summary ---
Discharge Summary Date of Service July 17, 2024 Principal Dx & Hospital Course #1 = Principal Diagnosis (1) Acute kidney injury superimposed on CKD: (2) Elevated lactic acid level: (3) Acute hyponatremia: (4) Adenocarcinoma of gallbladder: (5) History of DVT (deep vein thrombosis): (6) Anxiety: Plan Ms. 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 Patient was also noted to have bowel obstruction 2 days after presentation. This bowel obstruction was management conservatively. Surgery signed off--stating that surgical intervention will only be pursued in an emergent situation. GI evaluated patient and spoke to Dr Morris for possible stent placement. The concern of eroding tumor may be contributing to occult anemia. From 06/17 to 06/18, patient with more alertness and ability to participate in exam. Attempting to eat more as able. Noted that liver enzymes are uptrending and given vague discomfort will order KUB to start to assess obstruction and will consider repeat CT ABD/P contingent on trend of LFTS. On 06/19, it was expressed to that patients medical condition is tenuous. That regardless of "where" she discharges it is hard to say when the recurrence of symptoms may come and if/when she may come back. Expressed need for prompt Onc follow up to establish plan. From 06/21 to 06/27, patient developed recurrence of abdominal pain, CT abdomen and pelvis revealing small bowel obstruction with mesenteric hernia, and large bowel obstruction in the hepatic flexure, secondary to tethered gallbladder mass. This was managed with conservative measures and small bowel follow through confirmed resolution. However, patient with marked lethargy and fluctuating delirium. patient remains on PPN due to poor po intake. Prior attending's d/w Dr. Christie--requested encounter with family to discuss treatment options given complicated and prolonged course in hospital. Patient's states Dr. Christie spoke with him and his daughter on 06/28--stating something to the effect that "she has to get through this to get to the clinic." On 07/01, kruse exchanged and patient received 1 U PRBC. Heparin and eliquis held. Patient high risk for DVTs iso malignant and hx there of. Vascular to discuss appropriateness of IVC filter especially given question of possible surgery. Given no active clots, IVC filter deferred. Doppler pursued on 07/03 which was negative for DVT. Resumed SCD/rob stockings in interim Concern for looming reobstruction, will start management for malignant bowel obstruction. After thoughtful conversation with Palliative and , patient completed 5 day course of IV dexamethasone. Discussed case with Dr Montenegro over the phone who will discuss possible diverting ileostomy with Dr. Garcia. Patient is a high risk, however, this procedure could provide bridge for home. On day prior to possible surgery on 07/10, patient wished to cancel procedure. 07/14, peer to peer conversation was had with [facility] who felt patient did not qualify for acute rehab. Long discussion had with family and patient. Patient wishes to trial full liquids. Long conversation about the likelihood she will have a recurrent bowel obstruction is high if not inevitable. Family/patient wishes to trial in hopes that patient can "intake enough nutrients to go home" Discussed this is unlikely given degree of mechanical obstruction. On 07/16, patient with recurrent bowel obstruction. Raised question of hospice to who is seemingly open to the idea, but did not wish to talk in more detail at time of exam. trialed decradron for MBO once more On 07/17, over 60min spent at bedside talking with . Discussed that reina ent would not want surgery or NGT. Discussed there are no options outside of comfort for here--he agreed. Patient transitioned [facility] evaluated patient and accepted with plan for discharge home to transition for EOL. #Comfort measures only status -Discontinue PPN -Continue IV Decadron for MBO relief -Comfort measures order set place -Discussing Hospice: would like to get patient home to pass, Case management working to aid in transition home Patient was treated for the following #Generalized weakness #Hyponatremiaresolved #Hypernatremia discontinue PPN #Malignant Bowel Obstruction #Small bowel Obstruction #Large Bowel Obstruction Recurrent bowel obstructions, managed conservatively. CT abdomen and pelvis revealing small bowel obstruction with mesenteric hernia, and large bowel obstruction in the hepatic flexure, secondary to tethered gallbladder mass. General surgery consulted, appreciate recs: no surgical intervention GI: no further stenting; conservative management Palliative evaled given need for optimizing symptomatic control v transitioning to [facility], difficult to broach conversation. Completed course Dexamethsone for MBO, s/p IV 6mg qd for 5 days (02/05) PPN started, continue. Poor intake, home megace was dc'd after d/w pt and her family given increased risk of blood clot. they agreed for remeron which has been started. On clears since 07/04, pt denies N, V, abd pain. Reports moving gas. Gen Sx had plan for diverting ostomy on 07/10, Pt and her family decided against surgery on 07/09 evening. Continue PPN and continue CLD, will hold on advancement given mechanical obstruction iso malignancy -Family/patient adamant to advance diet to full liquids to increase PO nutrients. Discussion was had that there is concern for recurrent obstruction -Diet advancement thwarted by recurrent obstruction =Patient declines surgery -Decadron for palliative effort for MBO at this time Opening discussions of hospice, seemingly open to future discussion but declines in depth conversation at this time Conservative management once more, declines NGT #RLE edema resolved #Recent DVT BLE 03/2024: Acute deep venous thrombosis in the bilateral lower extremity in the segments as noted above. 07/03/2024: no DVT RESUME SCDs/Rob stockings Heparin on hold due to concern occult bleeding from tumor Pt and her aware of the increased risk of blood clot if not being on blood thinner lobito given her cancer status but given anemia (likely 2/2 eroding tumor) which could be exacerbated by blood thinner, they are ok w/ holding blood thinner. Holding DVT ppx at this time #Complicated UTI: noted 07/07, Urine Cx contaminate. c/w cefepime 07/07.completed 5 days abx 07/12 #Acute on chronic Anemia *stable s/p 3 unit PRBC (06/12, 06/23, 07/01) so far, home eliquis on hold. FOBT positive Anemia multifactorial, major part played likely by eroding tumor contributing to occult anemia. Monitor HnH, transfuse for Hb < 7. Continue Protonix IV twice daily Holding Eliquis for down trending Hgb Prior attending discussed IVC filter placement with Vascular: given no active DVT, no indication for IVC Heparin on hold given recurrent need for blood transfusion, teds/scds for now Remained stable #Acute toxic metabolic encephalopathy *fluctuating/stable likely multifactorial--chronic leukoencephalopathy, delirium 2/2 chronic illness, malnutrition patient again developed progressive lethargy over the weekend Extensive workup including CT head, VBG, ammonia, TSH, cortisol, and infectious workup repeated-all unrevealing Neurology service reconsulted, does not recommend any other testing at this point avoid benzos/sedatives Encourage delirium precautions and sleep hygiene #Transaminitis stable #Adenocarcinoma of gallbladder Last FOLFOX treatment 05/[address] Gross; transitioned to Dr. Christie Continue Megace 06/08- patient's family requested 5FU reversal, but not warranted at this time per Oncology As above GI consult for further recs per General Surgery. Family hopeful for a "treatment" and ways to get patient "out and to the clinic" -Discussing that this is complicated 2/2 to recurrent obstruction Manage conservatively as above #Chemotherapy induced Neutropenia *resolved #Lactic acidosis iso obstruction/dehydration sepsis ruled out Pt with progressing neutropenia, in the setting of recent chemotherapy Lactate initially 4.4 on admission ->normalized to 2.0 with fluids Chest XRAY with no acute infection UA unremarkable, respiratory testing negative, MRSA nares negative Blood Cx x1 set NGTD. 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 Heel Builder Machine/Oncologist Dr Christie on 06/08, s/p neupogen 480 mcg subcu for neutropenia for 3 days #EUGENE superimposed on CKD *resolved 2/2 decreased oral intake/possible infection following chemo tx 05/30 Creatinine 2.36 on admission (previously 1.7 eight days prior) CTM, at baseline #Hypokalemia*stable #Hypocalcemia *stabe #Hypophosphatemia *stable #Malnutrition Likely in setting of above Bacteriologist Soil consult PPN discontinued #H/o DVT Eliquis held for SBO, possible emergency procedures held heparin sq; vascular to discuss case: no indication of IVC at this time #HTN (hypertension) Continue atenolol #History of breast cancer S/p left partial mastectomy, XRT, 5 years of tamoxifen completed in August 2022 #Restless legs syndrome (RLS) Clonazepam HS PRN #Acute respiratory alkalosis secondary metabolic alkalosis resolved #Diarrhea improved Resolved at this time Notes For Next Care Provider Medication Changes From Visit discontinued home meds Admission HPI Per Admitting Provider This is a 74yo F with a PMH of 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 Last chemo treatment was 05/30/24, follows with Dr. Gross. Generally feels weaker after chemo but generalized weakness more pronounced this time. Also having decreased appetite and nausea. Intermittent abdominal pain with diarrhea. Has sores near feet but unchanged from previous. No fever, chills, sore throat, chest pain, shortness of breath. Admission Exam Per Admitting Provider Constitutional: Awake, alert oriented x 3. Respiratory: Bilateral vesicular breath sound Cardiovascular: RRR, no murmur, no edema Vessels: no JVD or carotid bruit Chest: Port in place on right chest; no surrounding erythema or drainage. Abdomen: Soft nontender. Musculoskeletal: no cyanosis or clubbing, extremities motor strength 5/5 Skin: no rashes, warm and dry normal turgor Neurologic: PERRL, EOMI, accommodation nl, no face palsy, no dysarthria CN's II- XI intact bilaterally and moves all extremities Psychiatric: A+Ox3, euthymic affect Discharge Exam Constitutional lethargic, awake, no alert following commands Respiratory central resp pattern similar to daniel yo Cardiovascular tachcyardic Gastrointestinal (Abdomen) notably protuberant Updated Medication List Medication Instructions Recorded Confirmed Type morphine concentrate 100 mg/5 mL 5 mg (0.25 mL) PO Q3H PRN dyspnea 07/17/24 Rx (20 mg/mL) oral solution 7 days #30 mL scopolamine base 1 mg over 3 days 1 patch transdermal Q3D PRN nausea 07/17/24 Rx transdermal patch and vomiting #10 ea Hospital Stay Data Consultations 06/06/24 17:38 ED Decision to Admit Stat 06/07/24 11:08 Consult Nephrology Routine 06/08/24 10:36 Consult Oncology Routine 06/08/24 13:40 Consult General Surgery Routine 06/08/24 16:21 Consult Gastroenterology Routine 06/16/24 15:38 Consult Neurology Routine 06/21/24 18:38 Consult General Surgery Routine 06/26/24 14:42 Consult Neurology Routine 06/29/24 10:45 Consult Palliative Care Routine 06/30/24 09:10 Consult Vascular Surgery Routine Procedures Performed Operation Date: 07/10/24 10:40 <No data on this case meets the specified criteria> Diagnostic Imagining Performed 06/06/24 16:21 CT abd pelvis wo con Stat 06/15/24 16:25 CT head/brain wo con Routine 06/16/24 08:37 MRI Brain [MR brain wo/w con] Routine 06/21/24 16:34 CT Abd and Pelvis [CT abd pelvis wo con] Stat 06/23/24 08:30 FL small bowel follow through Urgent 06/24/24 21:53 CT head/brain wo con Stat 07/03/24 11:20 US venous doppler LE BI Routine 07/07/24 06:58 CT Abd and Pelvis [CT abd pelvis IV con only] Stat Pending Results Patient Have Any Pending Studies at Discharge: No Discharge Instructions Given to Patient (Per Discharging Provider) You were admitted to [facility] due to poor appetite and weakness, ultimately found to have malignant bowel obstruction due progressive adenocarcinoma of gallbladder as well as possible contribution from folfox. Symptoms were managed conservatively. You were transitioned to hospice after determination that further intervention was not in line with your wishes. Total Time Total Time Spent Total Time Spent (In Minutes): 45
[2024-07-17 17:01] VITALS: PULSE 106
--- NOTE | 2024-07-17 18:43 | Hospitalist Progress Note ---
Date of Service July 17, 2024 Assessment & Plan Admission and Anticipated Discharge Date Admission Date: June 06, 2024 Subjective NOTE Patient not reactive to voice or touch. No breath sounds, no heart sounds, no carotid or radial pulses, pupils fixed and dilated. Time of : 17:50 MD Nina Results & Data Results & Data Vital Signs (Past 12 Hours) Vital Signs Temp Pulse Pulse Pulse Resp BP BP 07/17/24 16:59 36.4 C L 106 H 124 H 116 H 28 H 107/75 121/85 07/17/24 07:17 36.4 C L 124 H 28 H 121/85 Pulse Ox O2 Del Method 07/17/24 16:59 97 07/17/24 07:17 97 Room Air
--- NOTE | 2024-07-18 08:13 | Coding Query ---
SEPSIS To promote full compliance with coding requirements relating to patient care, physician participation is requested in all cases of brattice builder uncertainty. Please assist us with the question(s) below: In responding to this query, please exercise your independent professional judgement. The fact that a question is asked does not imply that any particular answer is desired or expected. We appreciate your clarification on this issue. Throughout the medical record, you have clearly documented a localized infection and your patient has clinical evidence of a generalized sepsis or severe sepsis. The term urosepsis is a nonspecific entity and is coded as an UTI. If the patient has sepsis, severe sepsis, from an urinary source or some other source, please clarify in your response below. The medical record reflects the following clinical findings: Pt admitted with metabolic toxic encephalopathy, EUGENE, gallbladder carcinoma, malignant intestinal obstruction.Hospitalist Progress notes 06/07-06/30 document possible Sepsis with progressive neutropenia in the setting of 4.4 Lactate on admission, down to 2.2 after fluids. Please check below, if applicable, the diagnosis that was treated during this hospital stay. Thanks for your help! Sunil Horta [facility] ____ ( )Bacteremia (Nonspecific laboratory finding of bacteria in the blood) Specify Organism ( ) Present on Admission ( x) Not present on admission ( ) Unable to clinically determine ( ) Septicemia (Systemic disease associated with the presence of pathogenic microorganisms in the blood): Specify Organism ( ) Present on Admission (x ) Not present on admission ( ) Unable to clinically determine ( x) Sepsis Specify Organism Specify Associated Condition/Diagnosis 2/2 malignant bowel obstruction ( ) Present on Admission ( ) Not present on admission ( ) Unable to clinically determine ( ) Severe Sepsis (Sepsis associated with acute organ dysfunction) Specify Organism Specify Associated Condition/Diagnosis ( ) Present on Admission ( x) Not present on admission ( ) Unable to clinically determine ( ) Septic Shock (Severe sepsis with acute circulatory failure, unexplained by other causes) ( ) Present on Admission ( x) Not present on admission ( ) Unable to clinically determine ( ) Other, patient has: MTDD
== END 2024-07-17 20:56 | disposition expired | DRG 682 ==
LOC: ED 14:28 → SUATTDRO 18:33 → 2S 18:33 → 3E 07-13 13:19